=== PATIENT | male | born 1950 | race Caucasian/White ===

== ENCOUNTER → 2017-09-24 17:03 | Outpatient (CLI) | payer MEDICARE, OTHER, SELFPAY | PROVIDERS: Family Provider Family Medicine; PCP Family Medicine; Visit Provider Nurse Practitioner Adult Health | DX: R82.99 Other abnormal findings in urine (principal) | CPT/HCPCS: 87086; 87088; 87186 ==

== ENCOUNTER → 2017-10-04 10:32 | Outpatient (CLI) | payer MEDICARE, OTHER, SELFPAY ==
--- NOTE | 2017-10-04 10:36 | RAD_ITS ---
STUDY: X-RAY CHEST REASON FOR EXAM: Male, 67 years old. Dyspnea and hypoxemia. TECHNIQUE: PA and lateral views of the chest. COMPARISON: Comparison is made with prior study dated May 23, 2015. FINDINGS: Stable mild increased linear markings at the lung bases suggestive of mild bibasilar scarring. There is no demonstrated pleural abnormality. Normal size heart. Normal mediastinum and natalia. Normal visualized pulmonary arteries. There is atherosclerotic tortuosity of the aortic arch and descending thoracic aorta. Normal visualized thoracic spine. Normal visualized ribs, clavicles, and shoulders. There is no demonstrated abnormality of the visualized soft tissue structures of the upper abdomen. RAD/Chest PA and Lateral IMPRESSION: Stable examination. Findings suggestive of mild bibasilar linear scarring. Electronically Signed: Eusebio Abdalla MD at 13:22 EDT Tel [phone], Service support ,
== END ==
PROVIDERS: Family Provider Family Medicine; PCP Family Medicine; Visit Provider Internal Medicine Pulmonary Disease
DX: R06.00 Dyspnea, unspecified (principal); R09.02 Hypoxemia
CPT/HCPCS: 71046

== ENCOUNTER → 2017-10-16 14:58 | Outpatient (CLI) | payer MEDICARE, OTHER, SELFPAY ==
[2017-10-16 18:12] LABS: Anion Gap 8 (5-15); BUN 15 mg/dL (7-18); BUN/Creat Ratio 11.3 RATIO (10-20); Calcium,Total 8.9 mg/dL (8.5-10.1); Chloride 104 mmol/L (98-107); Creatinine, Serum 1.33 mg/dL (0.70-1.30); EST Glomerular Filtration Rate 57 mL/min (>60); Est Glom Filt Rate - Afr Amer 69 mL/min (>60); Glucose 140 mg/dL (74-106); PSA,Total - Annual Screen 0.71 ng/mL (0.00-4.00); Potassium 3.7 mmol/L (3.5-5.1); Sodium Level 137 mmol/L (136-145)
== END ==
PROVIDERS: Family Provider Family Medicine; PCP Family Medicine; Visit Provider Family Medicine
DX: I10 Essential (primary) hypertension (principal); Z12.5 Encounter for screening for malignant neoplasm of prostate
CPT/HCPCS: 36415; 80048; 84153; G0103

== ENCOUNTER → 2017-11-13 12:02 | Outpatient (CLI) | payer MEDICARE, OTHER, SELFPAY ==
[2017-11-13 14:53] LABS: Vitamin D,25 Hydroxy 23.1 ng/mL (29.95-100.01)
[2017-11-13 15:04] LABS: ALB/GLOB Ratio 0.8 RATIO (0.9-2.4); AST(SGOT) 29 U/L (15-37); Alanine Aminotransfer ALT/SGPT 38 U/L (16-61); Albumin, Serum 3.3 g/dL (3.2-5.0); Alkaline Phosphatase 89 U/L (45-117); Anion Gap 9 (5-15); BUN 14 mg/dL (7-18); BUN/Creat Ratio 10.6 RATIO (10-20); Calcium,Total 8.6 mg/dL (8.5-10.1); Chloride 104 mmol/L (98-107); Creatinine, Serum 1.32 mg/dL (0.70-1.30); EST Glomerular Filtration Rate 57 mL/min (>60); Est Glom Filt Rate - Afr Amer 69 mL/min (>60); Globulin 3.9 g/dL (2.2-4.2); Glucose 137 mg/dL (74-106); Potassium 3.8 mmol/L (3.5-5.1); Protein, Total 7.2 g/dL (6.4-8.2); Sodium Level 138 mmol/L (136-145)
[2017-11-14 11:12] LABS: DHEA Sulfate 389.2 ug/dL (30.9-295.6)
== END ==
PROVIDERS: Family Provider Family Medicine; PCP Family Medicine; Visit Provider Internal Medicine Endocrinology, Diabetes & Metabolism
DX: E27.49 Other adrenocortical insufficiency (principal); E04.9 Nontoxic goiter, unspecified; E55.9 Vitamin D deficiency, unspecified
CPT/HCPCS: 36415; 80053; 82306; 82627; 84443; 82626

== ENCOUNTER → 2017-11-13 12:34 | Outpatient (CLI) | payer MEDICARE, OTHER, SELFPAY ==
--- NOTE | 2017-11-27 11:30 | LEAS ---
Arterial Study - Arterial Study Arterial Study: Date of scan 11/13/2017 Interpreting physician Jhonatan: Dr. Terry Mckenna History: Patient with bilateral calf tightening pain with ambulation approximately 10 minutes on a treadmill right greater than the left here for evaluation Interpretation: Right lower extremity with normal pulsatile flow down at the legs duplex shows triphasic flow at the ankle with an ROSE 1.09 posterior tibial 1.08 of the dorsalis pedis with the digit brachial index 0.83 Left lower extremity with normal pulsatile flow with good waveform out through the digits duplex with triphasic flow both vessels at the ankle with an ROSE 1.13 the posterior tibial 1.19 of the dorsalis pedis the digit brachial index 0.85 Impression: 1. Bilateral lower extremities with no evidence of significant arterial occlusive disease with triphasic flow and ROSE 1.09 on the right 1.19 on the left with normal digit brachial indices.
== END ==
PROVIDERS: Family Provider Family Medicine; PCP Family Medicine; Visit Provider Physician Assistant Medical
DX: I73.9 Peripheral vascular disease, unspecified (principal); E27.49 Other adrenocortical insufficiency; E04.9 Nontoxic goiter, unspecified; E55.9 Vitamin D deficiency, unspecified
CPT/HCPCS: 36415; 80053; 82306; 82627; 84443; 93922; 82626

== ENCOUNTER → 2018-05-07 08:26 | Outpatient (CLI) | payer MEDICARE, OTHER, SELFPAY ==
[2018-05-05 13:27] VITALS: BMI 37.8
[2018-05-07 10:55] LABS: Anion Gap 11 (5-15); BUN 14 mg/dL (7-18); Calcium,Total 8.8 mg/dL (8.5-10.1); Chloride 104 mmol/L (98-107); Cholesterol 176 mg/dL (200); EST Glomerular Filtration Rate 54 mL/min (>60); Est Glom Filt Rate - Afr Amer 65 mL/min (>60); Glucose 199 mg/dL (74-106); High Density Lipoprotein 52 mg/dL; Sodium Level 138 mmol/L (136-145); Triglycerides 129 mg/dL; Very Low Density Lipoprotein 26 mg/dL (5-40)
== END ==
PROVIDERS: Family Provider Family Medicine; PCP Family Medicine; Visit Provider Family Medicine
DX: I10 Essential (primary) hypertension (principal)
CPT/HCPCS: 36415; 80048; 80061

== ENCOUNTER → 2018-05-27 08:27 | Outpatient (CLI) | payer MEDICARE, OTHER, SELFPAY ==
[2018-05-05 13:27] VITALS: BMI 37.8
[2018-05-27 09:51] LABS: Vitamin D,25 Hydroxy 28.7 ng/mL (29.95-100.01)
[2018-05-27 10:04] LABS: ALB/GLOB Ratio 0.8 RATIO (0.9-2.4); AST(SGOT) 28 U/L (15-37); Alanine Aminotransfer ALT/SGPT 40 U/L (16-61); Albumin, Serum 3.4 g/dL (3.2-5.0); Alkaline Phosphatase 84 U/L (45-117); Anion Gap 9 (5-15); BUN 16 mg/dL (7-18); BUN/Creat Ratio 11.3 RATIO (10-20); Calcium,Total 8.7 mg/dL (8.5-10.1); Chloride 102 mmol/L (98-107); Creatinine, Serum 1.42 mg/dL (0.70-1.30); EST Glomerular Filtration Rate 53 mL/min (>60); Est Glom Filt Rate - Afr Amer 64 mL/min (>60); Glucose 143 mg/dL (74-106); Protein, Total 7.4 g/dL (6.4-8.2); Sodium Level 140 mmol/L (136-145); Thyroid Stim Hormone (TSH) 3.39 uIU/mL (0.358-3.74)
--- OUTSIDE RECORDS SUMMARY | 2018-07-13 06:48 | XMS RPT_ITS ---
:1950 Author Organization [place] Support Name Relationship Address Phone MARSHAL TEMPLE Unavailable [address] + [place] [address] MAVERICK JOSH Unavailable [address] + [place] [address] R Unavailable Unavailable Unavailable MARSHAL TEMPLE Unavailable [address] + [place] [address] MAVERICK, JOSH Unavailable [address] + [place] [address] R Unavailable Unavailable Unavailable MARSHAL TEMPLE Unavailable [address] + [place] [address] MAVERICK, JOSH Unavailable [address] + [place] [address] R Unavailable Unavailable Unavailable MARSHAL TEMPLE Unavailable [address] + [place] [address] MAVERICK, JOSH Unavailable [address] + [place] [address] R Unavailable Unavailable Unavailable MARSHAL TEMPLE Unavailable [address] + [place] [address] MAVERICK JOSH Unavailable [address] + [place] [address] R Unavailable Unavailable Unavailable MARSHAL TEMPLE Unavailable [address] + [place] [address] MAVERICK, JOSH Unavailable [address] + [place] [address] R Unavailable Unavailable Unavailable MARSHAL TEMPLE Unavailable [address] + [place] [address] R Unavailable Unavailable Unavailable MARSHAL TEMPLE Unavailable [address] + [place] [address] R Unavailable Unavailable Unavailable MARSHAL TEMPLE Unavailable [address] + [place] [address] R Unavailable Unavailable Unavailable MARSHAL TEMPLE Unavailable [address] + [place] [address] R Unavailable Unavailable Unavailable MARSHAL TEMPLE Unavailable [address] + [place] [address] R Unavailable Unavailable Unavailable MARSHAL TEMPLE Unavailable [address] + [place] [address] R Unavailable Unavailable Unavailable MARSHAL TEMPLE Unavailable [address] + [place] [address] R Unavailable Unavailable Unavailable Care Team Providers Name Role Phone MAXWELL TORRES Attending Unavailable BRIAN, MAXWELL Referring Unavailable Kohli, Connor Primary Care Unavailable Rylee Singh Attending Unavailable Kohli, Connor Referring Unavailable Kohli, Connor Primary Care Unavailable Kohli, Connor Attending Unavailable Kohli, Connor Primary Care Unavailable Anmol Ventura Attending Unavailable Kohli, Connor Referring Unavailable Rylee Singh Attending Unavailable Rylee Singh Referring Unavailable Kohli, Connor Primary Care Unavailable Becca Oneal Attending Unavailable Maryjane Chinchilla Attending Unavailable Kohli, Connor Primary Care Unavailable Cathie Parker Attending Unavailable Kohli, Connor Attending Unavailable Kohli, Connor Primary Care Unavailable Sibartem, Octavio Attending Unavailable SibiliaOctavio Referring Unavailable Kohli, Connor Primary Care Unavailable Valencia Copeland Attending Unavailable Kohli, Connor Primary Care Unavailable Valencia Copeland Referring Unavailable Jg Valle Attending Unavailable Seun, Connor Primary Care Unavailable Jg Valle Referring Unavailable WIETEMAXWELL ERVIN Attending Unavailable WIETECHA, MAXWELL Referring Unavailable Kohli, Connor Primary Care Unavailable PROBLEMS PROBLEMS DATE TYPE CONDITION / CODE ATTENDING STATUS SOURCE 06/06/2018 Unknown N20.0 - Calculus of Cathie Parker Active [facility] N20.0(ICD-10) Hospital Repository 05/27/2018 Unknown 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 / Hospital E27.49(ICD-10) Repository 05/27/2018 Unknown 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, unspecified Community / E04.9(ICD-10) Hospital Repository 05/27/2018 Unknown E55.9 - Vitamin D WIETECHA, MAXWELL Active [facility] unspecified / Hospital E55.9(ICD-10) Repository 10/30/2017 Unknown I73.9 - Peripheral Francisco, Active [facility] vascular disease, [facility] unspecified / Hospital I73.9(ICD-10) Repository 10/16/2017 Unknown 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 Active [facility]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 / Repository Z12.5(ICD-10) 10/16/2017 Unknown I10 - Essential Connor Kohli Active [facility] (primary) [facility] hypertension / Hospital I10(ICD-10) Repository 09/25/2017 Unknown R82.99 - Other Valencia Copeland Active [facility] abnormal findings in [facility] urine / Hospital R82.99(ICD-10) Repository PROCEDURES PROCEDURES No Procedure Records FoundRESULTS RESULTS EMERGENCY DEPARTMENT Observed: 06/07/2018 Status: F Source: JASPER SUMMARY 12:56 AM [facility] REPOSITORY [facility] Medical Records Department [address] [place] [address] Emergency Department Summary 06/06/182050 MR#: [id number] Acct: [id number] Name: GRACIE TEMPLE Rep #: [id number] : 1950 68 From: Cathie Parker MD PCP: Connor Kohli MD Status: DEP ER - ER Visit Summary Date of Service: 06/06/18 Chief Complaint: Left flank pain History of Present Illness: The patient is a 68 M gradual onset of left flank pain this afternoon. He reports urinary frequency but no dysuria or discoloration. He does have a history of kidney stones 20+ years ago. He was told recently an x-ray of his back showed stones in the left kidney. He denies nausea, vomiting, or diarrhea. Physical Examination: Vital signs gross unremarkable. Patient sitting upright on the side of the bed. He is in no acute distress. Heart is regular rate and rhythm. Lung sounds are clear. Abdomen is soft with reproducible tenderness of the left lateral abdominal wall. There is no guarding or rebound. He has no CVA tenderness. Test Results: Patient had CBC and chemistry studies drawn yesterday that were reviewed. His creatinine was 1.59. Chemistries were repeated tonight and creatinine is currently 1.52. Urinalysis shows blood but no sign of acute infection. CT flank reveals left hydroureteronephrosis secondary to a 4.6 mm calculus in the mid left ureter. Emergency Department Course and Treatment: Patient was given 4 mg of morphine and 4 mg of Zofran. On initial repeat examination pain was significantly improved. On later repeat exam patient states pain was starting to return. He is given 2 mg of morphine. At this time patient wishes to try pain medication at home. He will be written for oxycodone and Zofran. He is instructed to return for any worsening symptoms. He will be referred to Dr. Lombardi for follow-up. Treatment Plan: [] Disposition: Discharge Impression: Left ureterolithiasis This note was generated with [employer] dictation software. It may contain incorrect words, spelling, and punctuation that were not noted in review of the chart prior to signing ED Disposition - Plan for ED Patient: Chief Complaint: Flank Pain Referrals: Connor Kohli MD [Primary Care Provider] - What to do if you have Problems For any increased pain, shortness of breath, bleeding, nausea or vomiting, chest pain, or any unexpected problems, contact your Primary Care Provider. Call [facility] ([phone]) or report to the closest Emergency Room. Call 911 if necessary. 06/07/18 0056 <Electronically signed by Cathie Parker MD> Date Cathie Parker MD Cosigner Signature (If Indicated): Date CC: Connor Kohli MD DISCHARGE INSTRUCTION Observed: 06/06/2018 Status: F Source: ALEXANDER 11:32 PM [facility] REPOSITORY [facility] Medical Records Department [address] [place] [address] Discharge Instruction 06/06/18 2330 MR#: [id number] Acct: [id number] Name: GRACIE TEMPLE Rep #: [id number] : 1950 68 From: Cathie Parker MD PCP: Connor Kohli MD Status: REG ER ED Disposition - Plan for ED Patient: Disposition: Home or Assisted Living Chief Complaint: Flank Pain Instructions: ED Stone Renal W Colic Prescriptions: Oxycodone [Oxyir] 5 mg PO Q6H PRN PRN 4 Days #20 tablet PRN Reason: Pain Ondansetron [Zofran Odt] 4 mg PO Q8H PRN PRN #10 tablet PRN Reason: Nausea Referrals: Avinash Lombardi MD [STAFF PHYSICIAN] - As Needed What to do if you have Problems For any increased pain, shortness of breath, bleeding, nausea or vomiting, chest pain, or any unexpected problems, contact your Primary Care Provider. Call [facility] ([phone]) or report to the closest Emergency Room. Call 911 if necessary. 06/06/18 2522 <Electronically signed by Cathie Parker MD> Date Cathie Parker MD Cosigner Signature (If Indicated): Date CC: Connor Kohli MD URINALYSIS, COMPLETE Collected: 06/06/2018 Status: F Source: ALEXANDER 10:35 PM [facility] REPOSITORY Order Comment: Order Date: 06/06/18 How was Urine Obtained? CLEAN CATCH TYPE CODE TESTS RESULT OUT OF RANGE REFERENCE UNITS LAB L400.3000 Yellow COLOR Normal Yellow LAB L400.3050 Clear Normal CLARITY Sl. Cloudy LAB L400.3200 Normal mg/dl High GLUCOSE, UR 1000 LAB L400.3300 Negative mg/dL Normal BILIRUBIN URINE Negative LAB L400.3400 Negative mg/dl Normal KETONE UR Negative LAB L400.3465 1.002-1.030 Normal SP.GR. DIPSTX 1.015 LAB L400.3550 5.0 - 8.0 pH UR Normal 6.0 LAB L400.3600 Negative mg/dl PROT Normal DIPSTX Negative LAB L400.3700 Normal mg/dl Normal UROBILI Normal LAB L400.3750 Negative Normal NITRITE UR Negative LAB L400.3780 Negative /ul High OCCULT BLOOD-UR 250 LAB L400.3800 Negative /ul LEUK Normal ESTERASE Negative LAB L400.4050 0-5 /hpf WBC 0 Normal SEEN LAB L400.4100 0-5 /hpf Normal RBC-UA 5-10 SEEN LAB L400.4150 0-5 /hpf SQUAM Normal EPI 0-5 SEEN LAB L400.4300 None Seen /hpf 0 Normal BACTERIA SEEN LAB L400.4350 <or=2+ /hpf 0 Normal MUCUS, URINE SEEN Performed By: #### L400.0001 #### [facility] [address] [place], [place], [id number] BASIC METABOLIC Collected: 06/06/2018 Status: F Source: JASPER PROFILE (BMP) 8:40 PM [facility] REPOSITORY TYPE CODE TESTS RESULT OUT OF RANGE REFERENCE UNITS LAB L501.0100 74-106 mg/dL High GLU 152 Result Comment: Fasting Glucose result greater than or equal to 126 mg/dL suggests DIABETES MELLITUS per A.D.A. criteria. Please note revised GLUCOSE reference range effective 2017. LAB L501.1000 7-18 mg/dL Normal BUN 16 LAB L501.1100 0.70-1.30 mg/dL High CREAT,SERUM 1.52 Result Comment: The validity of the calculated GFR AND GFRAA in patients over 70 years has not been determined. Clinical correlation is essential. LAB L501.1110 >60 mL/min Low EST GFR 49 Result Comment: Non- GFR Calc LAB L501.1115 >60 mL/min Low EST GFR - AA 59 Result Comment: GFR Calc LAB L501.1255 ml/min Normal Estimated CRCL 40.46 LAB L501.1300 10-20 RATIO Normal BUN/CRE 10.5 LAB L501.2200 8.5-10 mg/dL Normal .1 CA 9.0 LAB L501.5300 136-14 mmol/L Normal 5 NA 139 LAB L501.5600 3.5-5. mmol/L Normal 1 K 4.0 LAB L501.5900 98-107 mmol/L Normal CL 104 LAB L501.6100 21.0-3 mmol/L Normal 2.0 CO2 27.0 LAB L501.6200 5-15 Normal GAP 8 Performed By: #### L500.2500 #### [facility] [address] [place], [address] ABDOMEN/PELVIS WITHOUT Observed: 06/06/2018 Status: F Source: A[place] CONT 8:21 PM [facility] REPOSITORY [facility] Imaging Services [address] [place] [address] Abdomen/Pelvis without Cont MR#: [id number] Acct: [id number] Name: GRACIE TEMPLE Rep #: [id number] : 1950 M 68 From: Kelley Gunn MD PCP: Connor Kohli MD Status: REG ER Study: Abdomen/Pelvis without Cont Date of Exam: 06/06/18 Exam# [id number] Ordering Dr: Cathie Parker MD STUDY: CT ABDOMEN AND PELVIS WITHOUT CONTRAST REASON FOR EXAM: Male, 68 years old. Left flank pain. RADIATION DOSAGE (If Supplied By Facility): CTDIvol = ( 22.37 ) mGy, DLP = ( 1162.46 ) mGycm TECHNIQUE: Transaxial images were obtained from the dome of the diaphragm to the symphysis pubis without oral contrast, and without intravenous contrast. Sagittal and coronal images were reconstructed. Individualized dose optimization techniques were used for this CT. COMPARISON: CT of the chest dated October 18, 2013 FINDINGS: The visualized lung bases are unremarkable. There are coronary artery calcifications present. Normal liver. Normal gallbladder and extrahepatic biliary system. Normal spleen. Normal pancreas. Normal bilateral adrenal glands. There are nonobstructing right renal calculi measuring up to 3.4 mm. There is left hydroureteronephrosis secondary to a 4.6 mm calculus within the mid left ureter. Normal visualized stomach. Normal small intestine. There are multiple colonic diverticula consistent with diverticulosis. The appendix is visualized and appears normal. There is diffuse atherosclerotic calcification of the abdominal aorta, without a demonstrated aneurysm. Normal inferior vena cava. Normal retroperitoneum. Normal urinary bladder. Normal abdominal wall. There are diffuse degenerative changes of the visualized lumbar spine. There are pedicle screws from L3 through S1 present. CT/Abdomen/Pelvis without Cont IMPRESSION: Left hydroureteronephrosis secondary to a 4.6 mm calculus within the mid left ureter. Nonobstructing right renal calculi measuring up to 3.4 mm. Colonic diverticulosis. Atherosclerosis. Postsurgical changes of the lumbar spine. Electronically Signed: Kelley Gunn MD at 21:33 EST Tel , Service support , CC: Cathie Parker MD; Connor Kohli MD Funding Specialist: Signed BASIC METABOLIC Collected: 06/05/2018 Status: F Source: [place] PROFILE (BMP) 9:14 AM [facility] REPOSITORY TYPE CODE TESTS RESULT OUT OF RANGE REFERENCE UNITS LAB L501.0100 74-106 mg/dL High GLU 173 Result Comment: Fasting Glucose result greater than or equal to 126 mg/dL suggests DIABETES MELLITUS per A.D.A. criteria. Please note revised GLUCOSE reference range effective 2017. LAB L501.1000 7-18 mg/dL Normal BUN 14 LAB L501.1100 0.70-1.30 mg/dL High CREAT,SERUM 1.59 Result Comment: The validity of the calculated GFR AND GFRAA in patients over 70 years has not been determined. Clinical correlation is essential. LAB L501.1110 >60 mL/min Low EST GFR 46 Result Comment: Non- GFR Calc LAB L501.1115 >60 mL/min Low EST GFR - AA 56 Result Comment: GFR Calc LAB L501.1300 10-20 RATIO Low BUN/CRE 8.8 LAB L501.2200 8.5-10.1 mg/dL Normal CA 8.8 LAB L501.5300 136-145 mmol/L Normal NA 140 LAB L501.5600 3.5-5.1 mmol/L Normal K 3.9 LAB L501.5900 98-107 mmol/L Normal CL 106 LAB L501.6100 21.0-32.0 mmol/L Normal CO2 25.0 LAB L501.6200 5-15 Normal GAP 9 Performed By: #### L500.2500, L500.3400 #### [facility] [address] [place], [place], [id number] LIVER PROFILE Collected: 06/05/2018 Status: F Source: JASPER 9:14 AM [facility] REPOSITORY TYPE CODE TESTS RESULT OUT OF RANGE REFERENCE UNITS LAB L501.1500 6.4-8.2 g/dL Normal T PROT 7.2 LAB L501.1800 3.2-5.0 g/dL Normal ALB 3.4 LAB L501.1950 2.2-4.2 g/dL Normal GLOB 3.8 LAB L501.4100 15-37 U/L Normal AST 24 LAB L501.4305 45-117 U/L Normal ALK P 90 LAB L501.4405 16-61 U/L Normal ALT 39 LAB L501.4600 0.20-1.00 mg/dL Normal T BILI 0.40 LAB L501.4700 0.00-0.30 mg/dL Normal D BILI 0.12 Performed By: #### L500.2500, L500.3400 #### [facility] [place], [place], [id number] HIV - [facility] Collected: 06/05/2018 Status: F Source: JASPER 9:14 AM [facility] REPOSITORY TYPE CODE TESTS RESULT OUT OF RANGE REFERENCE UNITS LAB L3890.6005 Nonreactive Normal HIV - [facility] Non-Reactive Performed By: #### L3890.6005 #### [facility] [place], [place], [address] CBC W/DIFF, AUTOMATED Collected: 06/05/2018 Status: F Source: JASPER 9:14 AM [facility] REPOSITORY TYPE CODE TESTS RESULT OUT OF RANGE REFERENCE UNITS LAB L100.1000 4.4-11.0 K/mm3 Normal WBC 6.0 LAB L100.1200 4.6-6.2 M/mm3 Normal RBC 5.08 LAB L100.1300 13.0-16.5 g/dl Normal HGB 15.8 LAB L100.1400 40-54 % Normal HCT 47.9 LAB L100.1500 80-94 fL High MCV 94.3 LAB L100.1600 27.0-32.0 pg Normal MCH 31.1 LAB L100.1700 32-36 g/gl Normal MCHC 33.0 LAB L100.1810 11.6-14.6 % Normal RDW CV 13.3 LAB L100.1820 35.1-43.9 fl High RDW SD 45.9 LAB L100.1900 150-450 K/mm3 Normal PLT 225 LAB L100.2000 6.2-12.0 fl Normal MPV 10.6 LAB L100.2100 47-70 % Normal NEUT% 49.6 LAB L100.2200 19-41 % Normal LY% 29.9 LAB L100.2300 0-10 % High MONO% 12.8 LAB L100.2400 0-5 % High EO% 6.3 LAB L100.2500 0-1 % High BASO% 1.2 LAB L100.2550 0.0-0.9 % Normal IM GRAN % 0.200 Result Comment: IG% - Immature Granulocytes (promyelocytes, myelocytes and metamyelocytes) > 1% indicates that a LEFT SHIFT is Present. LAB L100.2620 2.0-7.7 X10 3/uL Normal Absolute Neut 3.0 LAB L100.2720 0.83-4.51 X10 3/ul Normal Absolute Lymph 1.80 Performed By: #### L100.0100 #### [facility] [address] [place] [address], [id number] HEPATITIS B SURFACE Collected: 06/05/2018 Status: F Source: ALEX[place]ER AG 9:14 AM [facility] REPOSITORY TYPE CODE TESTS RESULT OUT OF RANGE REFERENCE UNITS LAB L3100.0400 Negative Normal HB Negative SURF AG Performed By: #### L3100.0390, L3100.0440, L3100.0528, L3100.0625, L3400.8000 #### [facility] (refer to report for specific site) refer to report for address and phone number HEPATITIS B CORE AB Collected: 06/05/2018 Status: F Source: ALEX[place]ER IGM 9:14 AM [facility] REPOSITORY TYPE CODE TESTS RESULT OUT OF RANGE REFERENCE UNITS LAB L3100.0440 Negative Normal HB Negative CORE [id number] Result Comment: Performed at: - [facility] [address] [id number] Soldering Machine Operator: Petr Arzola PhD, Phone: [phone] Performed By: #### L3100.0390, L3100.0440, L3100.0528, L3100.0625, L3400.8000 #### [facility] (refer to report for specific site) refer to report for address and phone number HEP B SURFACE Collected: 06/05/2018 Status: F Source: A[place]ER ANTIBODIES 9:14 AM [facility] REPOSITORY TYPE CODE TESTS RESULT OUT OF RANGE REFERENCE UNITS LAB L3100.0528 . Normal Hep B Non Reactive Jenifer AB Result Comment: Non Reactive: Inconsistent with immunity, less than 10 mIU/mL Reactive: Consistent with immunity, greater than 9.9 mIU/mL Performed By: #### L3100.0390, L3100.0440, L3100.0528, L3100.0625, L3400.8000 #### [facility] (refer to report for specific site) refer to report for address and phone number HEPATITIS C ANTIBODIES Collected: 06/05/2018 Status: F Source: ALEX[place]ER 9:14 AM [facility] REPOSITORY TYPE CODE TESTS RESULT OUT OF RANGE REFERENCE UNITS LAB L3100.0650 0.0-0.9 s/co ratio Normal HEP C AB 0.2 Result Comment: Negative: < 0.8 Indeterminate: 0.8 - 0.9 Positive: > 0.9 The CDC recommends that a positive HCV antibody result be followed up with a HCV Nucleic Acid Amplification test ([id number]). Performed By: #### L3100.0390, L3100.0440, L3100.0528, L3100.0625, L3400.8000 #### [facility] (refer to report for specific site) refer to report for address and phone number QUANTIFERON TB-GOLD+ Collected: 06/05/2018 Status: F Source: ALEX[place]ER 9:14 AM [facility] REPOSITORY TYPE CODE TESTS RESULT OUT OF RANGE REFERENCE UNITS LAB L3400.8025 . Normal QFT TB Comment GOLD Result Comment: The QuantiFERON-TB Gold Plus result is determined by subtracting the Nil value from either TB antigen (Ag) tube. The mitogen tube serves as a control for the test. LAB L3400.8035 . IU/mL Normal QFT TB1+ AG 0.05 [facility] LAB L3400.8045 . IU/mL Normal QFT TB2+ AG 0.04 [facility] LAB L3400.8055 . IU/mL Normal QFT NIL VALUE 0.04 LAB L3400.8065 . IU/mL Normal QFT MITOGEN > 10.00 [facility] LAB L3400.8075 Negative Normal QFT TB POS Negative CRIT Result Comment: The specimen received for QuantiFERON testing was incubated by the ordering institution. Specific procedures outlined in our Directory of Services and in the package insert for the QuantiFERON Gold (In Tube) test must be followed to enable for proper stimulation of cells for the production of interferon gamma. Performed By: #### L3100.0390, L3100.0440, L3100.0528, L3100.0625, L3400.8000 #### [facility] (refer to report for specific site) refer to report for address and phone number VITAMIN D,25 HYDROXY Collected: 05/27/2018 Status: F Source: JASPER 8:39 AM [facility] REPOSITORY TYPE CODE TESTS RESULT OUT OF REFERENCE UNITS RANGE LAB L506.1000 29.95-100.01 ng/mL Low Vitamin D 28.7 25-OH Result Comment: Vitamin D 25(OH) Status Range Deficiency <20 ng/mL (50nmol/L) Insuffciency 20 - 30 ng/mL (50 - 75 nmol/L) Sufficiency 30 - 100 ng/mL (75 - 250 nmol/L) Toxicity >100 ng/mL (>250 nmol/L) Performed By: #### L506.1000 #### [facility] [address], [address] COMPREHENSIVE METABOLIC Collected: 05/27/2018 Status: F [facility] REPOSITORY TYPE CODE TESTS RESULT OUT OF RANGE REFERENCE UNITS LAB L501.0100 74-106 mg/dL High GLU 143 Result Comment: Fasting Glucose result greater than or equal to 126 mg/dL suggests DIABETES MELLITUS per A.D.A. criteria. Please note revised GLUCOSE reference range effective 2017. LAB L501.1000 7-18 mg/dL Normal BUN 16 LAB L501.1100 0.70-1.30 mg/dL High CREAT,SERUM 1.42 Result Comment: The validity of the calculated GFR AND GFRAA in patients over 70 years has not been determined. Clinical correlation is essential. LAB L501.1110 >60 mL/min Low EST GFR 53 Result Comment: Non- GFR Calc LAB L501.1115 >60 mL/min Normal EST GFR - AA 64 Result Comment: GFR Calc LAB L501.1300 10-20 RATIO Normal BUN/CRE 11.3 LAB L501.1500 6.4-8.2 g/dL T Normal PROT 7.4 LAB L501.1800 3.2-5.0 g/dL Normal ALB 3.4 LAB L501.1950 2.2-4.2 g/dL Normal GLOB 4.0 LAB L501.2000 0.9-2.4 RATIO Low A/G 0.8 LAB L501.2200 8.5-10.1 mg/dL CA Normal 8.7 LAB L501.4100 15-37 U/L Normal AST 28 LAB L501.4305 45-117 U/L Normal ALK P 84 LAB L501.4405 16-61 U/L Normal ALT 40 LAB L501.4600 0.20-1.00 mg/dL T Normal BILI 0.50 LAB L501.5300 136-145 mmol/L NA Normal 140 LAB L501.5600 3.5-5.1 mmol/L K Normal 4.0 LAB L501.5900 98-107 mmol/L CL Normal 102 LAB L501.6100 21.0-32.0 mmol/L Normal CO2 29.0 LAB L501.6200 5-15 Normal GAP 9 Performed By: #### L500.4050, L501.9520 #### [facility] [address] [facility] [address] [place], [place], [id number] THYROID STIM HORMONE Collected: 05/27/2018 Status: F Source: JASPER (TSH) 8:39 AM [facility] REPOSITORY TYPE CODE TESTS RESULT OUT OF RANGE REFERENCE UNITS LAB L501.9520 0.358-3.74 uIU/mL Normal TSH 3.39 Performed By: #### L500.4050, L501.9520 #### [facility] [address] [facility] [address] [place], [place], [id number] DHEA SULFATE Collected: 05/27/2018 Status: F Source: ALEX[place]ER 8:39 AM [facility] REPOSITORY Order Comment: Has Patient had Radioactive Injection for X-ray?: N TYPE CODE TESTS RESULT OUT OF RANGE REFERENCE UNITS LAB L3300.1500 30.9-295.6 ug/dL Normal DHEA SULF 46.0 4020 Result Comment: Performed at: [facility] [id number] Soldering Machine Operator: Petr Arzola PhD, Phone: [phone] Performed By: #### L3300.1500 #### [facility] (refer to report for specific site) refer to report for address and phone number BASIC METABOLIC Collected: 05/07/2018 Status: F Source: [place] PROFILE (BMP) 8:27 AM [facility] REPOSITORY TYPE CODE TESTS RESULT OUT OF RANGE REFERENCE UNITS LAB L501.0100 74-106 mg/dL High GLU 199 Result Comment: Fasting Glucose result greater than or equal to 126 mg/dL suggests DIABETES MELLITUS per A.D.A. criteria. Please note revised GLUCOSE reference range effective 2017. LAB L501.1000 7-18 mg/dL Normal BUN 14 LAB L501.1100 0.70-1.30 mg/dL High CREAT,SERUM 1.40 Result Comment: The validity of the calculated GFR AND GFRAA in patients over 70 years has not been determined. Clinical correlation is essential. LAB L501.1110 >60 mL/min Low EST GFR 54 Result Comment: Non- GFR Calc LAB L501.1115 >60 mL/min Normal EST GFR - AA 65 Result Comment: GFR Calc LAB L501.1300 10-20 RATIO Normal BUN/CRE 10.0 LAB L501.2200 8.5-10.1 mg/dL CA Normal 8.8 LAB L501.5300 136-145 mmol/L NA Normal 138 LAB L501.5600 3.5-5.1 mmol/L K Normal 4.0 LAB L501.5900 98-107 mmol/L CL Normal 104 LAB L501.6100 21.0-32.0 mmol/L Normal CO2 23.0 LAB L501.6200 5-15 Normal GAP 11 Performed By: #### L500.2500, L500.4100 #### [facility] [address] [place], [address] LIPID PROFILE Collected: 05/07/2018 Status: F Source: ALEXANDER 8:27 AM [facility] REPOSITORY TYPE CODE TESTS RESULT OUT OF RANGE REFERENCE UNITS LAB L501.4900 200 mg/dL Normal CHOL 176 Result Comment: <200 mg/dL Desirable 200-240 mg/dL Borderline >240 mg/dL High Risk LAB L501.5000 mg/dL Normal TRIG 129 Result Comment: The drugs N-Acetylcysteine and Metamizole may falsely depress this assay. Serum Triglycerides Reference Interval Normal <150 mg/dL Borderline high 150 - 199 mg/dL High 200 - 499 mg/dL Very High > or = 500 mg/dL LAB L501.6400 mg/dL Normal HDL 52 Result Comment: The drugs N-Acetylcysteine and Metamizole may falsely depress this assay. Reference Range HDL <40 mg/dL Low HDL Cholesterol HDL >or= 60 mg/dL High HDL Cholesterol LAB L501.6500 0-130 mg/dL Normal LDL 98 LAB L501.6600 5-40 mg/dL Normal VLDL 26 Performed By: #### L500.2500, L500.4100 #### [facility] [address] [place], [address] CARDIOLOGY VISIT Observed: 05/05/2018 Status: F Source: ALEXANDER REPORT 4:06 PM [facility] REPOSITORY [facility] [address] [place] [address] OFFICE VISIT Date of Service: 05/05/18 MR#: [id number] Acct: [id number] Name: GRACIE TEMPLE Rep #: [id number] : 1950 Provider: WIN Ventura Age/Sex: 68/M Location: [facility] Status: Signed HPI HPI Details: GRACIE TEMPLE, is a 68 M who presents to the office today for a cardiovascular outpatient follow-up. He has a history of coronary artery disease status post stenting to his LCx and obtuse marginal in 2012. He has a history of syncope with loop recorder explantation in October 2016, paroxysmal atrial fibrillation, hypertension, hyperlipidemia, intermittent claudication, and adrenal insufficiency. Pt. denies chest, arm, jaw, or neck discomfort. His exercise tolerance is stable via walking and biking when possible. Pt. denies symptoms of CHF, palpitations, near syncope, or syncopal episodes. Pt. denies edema. Pt. denies orthopnea, PND, myalgia, or unexplainable fatigue. He states one episode of lightheadedness or dizziness. He states occasional bilateral leg pain with ambulation. Intake Vital Signs05/05/18 Height 5 ft 5 in 05/05/18 Weight: 227 lb 05/05/18 Body Mass Index (BMI) 37.8 05/05/18 Blood Pressure 114/58 L Intake Visit Reasons: 6 M Behavior Therapist Required: No Accompanied by: None Is patient in pain?: No Allergies acetaminophen [From Tylenol] Allergy (Verified 05/05/18 13:34) Anaphylaxis hydromorphone HCl [From Dilaudid] Allergy (Verified 05/05/18 13:34) Unknown Penicillins Allergy (Verified 05/05/18 13:34) Hives Medications Aspirin [Aspirin, Baby] 81 mg PO QHS 04/23/13 [History Confirmed 05/05/18] Nortriptyline HCl [Pamelor] 25 mg PO QHS 04/23/13 [History Confirmed 05/05/18] Pantoprazole Sodium [Protonix] 40 mg PO DAILY 04/23/13 [History Confirmed 05/05/18] Tamsulosin HCl [Flomax] 0.4 mg PO QHS 04/23/13 [History Confirmed 05/05/18] Finasteride [Proscar] 5 mg PO DAILY 10/12/16 [History Confirmed 05/05/18] Solifenacin Succinate [Vesicare] 10 mg PO DAILY 10/12/16 [History Confirmed 05/05/18] lisinopril 20 mg tablet 20 mg PO DAILY #90 tab 07/11/17 [Rx Confirmed 05/05/18] cilostazol 100 mg tablet 100 mg PO BID #180 tab 07/16/17 [Rx Confirmed 05/05/18] metoprolol tartrate 50 mg tablet 75 mg PO BID #270 tab 07/16/17 [Rx Confirmed 05/05/18] ezetimibe 10 mg tablet 10 mg PO QHS #90 tab 01/20/18 [Rx Confirmed 05/05/18] clopidogrel 75 mg tablet 75 mg PO QHS #90 tab 01/22/18 [Rx Confirmed 05/05/18] cholecalciferol (vitamin D3) 1,000 unit capsule 1,000 unit PO DAILY 05/05/18 [History Confirmed 05/05/18] PFSH Medical History Claudication in peripheral vascular disease (Chronic) Hypertension (Chronic) Left ventricular hypertrophy (Chronic) Paroxysmal atrial fibrillation (Chronic) Atherosclerotic heart disease of [place] coronary artery without angina pectoris (Chronic) HLD (hyperlipidemia) (Chronic) Surgical History Presence of coronary angioplasty implant and graft (Chronic) History of resection of meningioma (Resolved) Hx of cataract surgery (Resolved) History of lumbar surgery (Resolved) Family History Mother CAD (coronary artery disease) Sister CAD (coronary artery disease) Father Heart disease Social History Smoking Status: Never smoker alcohol intake: never substance use type: does not use caffeine: Yes Type: carbonated beverages Number of servings: 1 what type of physical activity do you participate in: none ROS Const Const: Negative for body ache, fever(s), chills, fatigue or weakness ENT ENT: Positive for dizziness Cardio Chest Pain: No Palpitations: No Edema: None Muscle aches with walking: Bilateral Resp Respiratory: Positive for SOB with activity; negative for SOB at rest, SOB orthopnea\SOB lying down or paroxysmal nocturnal dyspnea GI GI: Negative nausea, black,tarry stools, bright, red blood in stools or vomiting blood/hematemesis : Negative for hematuria or frequent nighttime urination/ nocturia Musc Musc: Negative for muscle aches/ myalgia Skin Skin: Negative non-healing lesions or rash Neuro Neuro: Positive for dizziness and lightheadedness; negative for weakness, near syncope, syncope or orthostatic symptoms Endo Endo: Negative for fatigue Allergy Allergy/Immunology: Negative for rash Cardiology Exam Const Appearance: cooperative, no acute distress and well developed Nutritional Appearance: obese and well nourished Orientation: alert, awake and oriented x3 Head Head: normocephalic and atraumatic Mouth: moist mucous membranes Eyes General: appearance normal, both eyes and all related structures Conjunctivae: conjunctivae normal Pupils: PERRL EOM: EOM intact bilaterally Neck Neck: normal visual inspection, no lymphadenopathy and no JVD Carotids: Negative bruit Neck Mass: Negative Neck mass Chest Chest inspection: normal inspection of the chest, symmetric chest movement and normal respiratory effort Auscultation: Bilateral: Clear to Auscultation Cardio Palpation: normal PMI Rate: regular rate Rhythm: regular rhythm Heart sounds: S1 normal and S2 normal; negative rub, gallop or murmur GI GI: normal to inspection, soft, no hepatosplenomegaly, bowel sounds present and obese; negative tender Neuro General: alert, awake, oriented x3, CN's II-XI intact bilaterally and moves all extremities Extremities Pulses: Normal: Right Radial Pulse, Left Radial Pulse, Diminished: Right Posterior Tibial Pulse, Left Posterior Tibial Pulse Lower Extremity Edema: None: Bilateral Psych Psychological: normal affect Supplemental Info Echocardiogram in January 2017 demonstrates an ejection fraction of 70%. Left atrium mildly enlarged. Trivial valvular insufficiency. Carotid duplex ultrasound from October 2015 showed no significant atherotic plaque or stenosis noted in the internal carotid arteries bilaterally. Lower extremity arterial duplex from October 2017 showed bilateral extremities no evidence of significant arterial occlusive disease with triphasic flow and ROSE 1.09 on the right and 1.19 on the left with normal digit brachial indices. Stress test from January 2017 showed peak exercise ECG with somatic/motion artifact no obvious ECG changes and nuclear images demonstrate relative uniform tracer intake and myocardial perfusion appearing within normal limits with an ejection fraction of 82%. Assessment AND Plan 1. Atherosclerosis of [place] coronary artery of [place] heart without angina pectoris I25.10 Plan His stress test in January 2017 was negative for stress-induced myocardial ischemia. His echocardiogram in January 2017 showed ejection fraction of 70%. Patient denies any chest pain, arm pain, jaw pain, neck pain, shortness of breath, or fatigue suggestive of angina at this time. We will continue to monitor this. We will not make any medication regimen changes and will continue risk factor modification. 2. Presence of coronary angioplasty implant and graft Z95.5 PTCA with KEYANA of proximal 3rd marginal artery 04/29; Plan He will continue the current treatment plan as outlined above. 3. Paroxysmal atrial fibrillation I48.0 04/29 Loop recorder; Loop recorder removed 10/15/16; Plan He denies any symptomatic recurrence of this. On physical exam he appears to maintain regular rhythm. His heart rate is well controlled. He will continue with current beta-jennifer. He will continue with aspirin and Plavix therapy. He states throughout the duration of his loop recorder no atrial fibrillation was noted. We will continue to monitor. 4. Essential hypertension I10 Plan Patient's blood pressure is well-controlled today in the office. We will continue to monitor this. We will not make any medication regimen changes. 5. Pure hypercholesterolemia E78.00 Plan He states this is being managed by primary care physician. He will continue with current cholesterol lowering medication. 6. Claudication in peripheral vascular disease I73.9 Plan He continues to have intermittent claudication. This has not worsened. His recent ROSE testing in October 2017 was negative for occlusive disease. He was instructed that if his leg pain continues that further evaluation with exercise can be done at the discretion of a vascular provider. At this time this appears stable and we will continue to monitor. Plan Detail Additional Comments Thank you for allowing us to participate in the patients plan of care, if you have any questions please do not hesitate to call. This note was generated using a voice recognition system and there may be incorrect words, spelling or punctuation that were not noted when reviewing the office note prior to saving. Follow Up 6 Months (MASSEUR/MASSEUSE/PA) 12 Months (PFM) Coding Level of Care Code Off vis,est,level 3 Diagnoses Atherosclerosis of [place] coronary artery of [place] heart without angina pectoris I25.10 [place] vs. transplanted heart: [place] heart Presence of coronary angioplasty implant and graft Z95.5 Paroxysmal atrial fibrillation I48.0 Essential hypertension I10 Hypertension type: essential hypertension Pure hypercholesterolemia E78.00 Hyperlipidemia type: pure hypercholesterolemia Claudication in peripheral vascular disease I73.9 Coding Level of Care Code Off vis,est,level 3 Diagnoses Atherosclerosis of [place] coronary artery of [place] heart without angina pectoris I25.10 [place] vs. transplanted heart: [place] heart Presence of coronary angioplasty implant and graft Z95.5 Paroxysmal atrial fibrillation I48.0 Essential hypertension I10 Hypertension type: essential hypertension Pure hypercholesterolemia E78.00 Hyperlipidemia type: pure hypercholesterolemia Claudication in peripheral vascular disease I73.9 05/05/18 1606 <Electronically signed by Anmol GIVENS> Date Anmol GIVENS Cosigner Signature: Date (if applicable) CC: Connor Kohli MD LOWER EXT ARTERIAL Observed: 11/27/2017 Status: F Source: ALEXANDER STUDY 11:31 AM [facility] REPOSITORY [facility] Cardiovascular Services [address] [address] 11/27/171129 MR#: [id number] Acct: [id number] Name: GRACIE TEMPLE Rep #: [id number] : 1950 67 From: Terry Mckenna MD Attending Dr: Rylee Singh Status: REG CLI Ordering Dr: Date: 11/27/17 Location: [facility] Sex: M C Admitted: Arterial Study - Arterial Study Arterial Study: Date of scan 11/13/2017 Interpreting physician Jhonatan: Dr. Terry Mckenna History: Patient with bilateral calf tightening pain with ambulation approximately 10 minutes on a treadmill right greater than the left here for evaluation Interpretation: Right lower extremity with normal pulsatile flow down at the legs duplex shows triphasic flow at the ankle with an ROSE 1.09 posterior tibial 1.08 of the dorsalis pedis with the digit brachial index 0.83 Left lower extremity with normal pulsatile flow with good waveform out through the digits duplex with triphasic flow both vessels at the ankle with an ROSE 1.13 the posterior tibial 1.19 of the dorsalis pedis the digit brachial index 0.85 Impression: 1. Bilateral lower extremities with no evidence of significant arterial occlusive disease with triphasic flow and ROSE 1.09 on the right 1.19 on the left with normal digit brachial indices. 11/27/17 113 <Electronically signed by Terry Mckenna MD> Date Terry Mckenna MD CC: Rylee Singh; Connor Kohli MD Date Dictated: 11/27/171129 Date Transcribed: 11/27/171129 Funding Specialist: KIRBY Banks VITAMIN D,25 HYDROXY Collected: 11/13/2017 Status: F Source: ALEXANDER 12:09 PM [facility] REPOSITORY TYPE CODE TESTS RESULT OUT OF REFERENCE UNITS RANGE LAB L506.1000 29.95-100.01 ng/mL Low Vitamin D 23.1 25-OH Result Comment: Vitamin D 25(OH) Status Range Deficiency <20 ng/mL (50nmol/L) Insuffciency 20 - 30 ng/mL (50 - 75 nmol/L) Sufficiency 30 - 100 ng/mL (75 - 250 nmol/L) Toxicity >100 ng/mL (>250 nmol/L) Performed By: #### L506.1000 #### [facility] [address] [place], [address] COMPREHENSIVE METABOLIC Collected: 11/13/2017 Status: F Source: ALEXANDER [facility] 12:09 PM [facility] REPOSITORY TYPE CODE TESTS RESULT OUT OF RANGE REFERENCE UNITS LAB L501.0100 74-106 mg/dL High GLU 137 Result Comment: Fasting Glucose result greater than or equal to 126 mg/dL suggests DIABETES MELLITUS per A.D.A. criteria. Please note revised GLUCOSE reference range effective 2017. LAB L501.1000 7-18 mg/dL Normal BUN 14 LAB L501.1100 0.70-1.30 mg/dL High CREAT,SERUM 1.32 Result Comment: The validity of the calculated GFR AND GFRAA in patients over 70 years has not been determined. Clinical correlation is essential. LAB L501.1110 >60 mL/min Low EST GFR 57 Result Comment: Non- GFR Calc LAB L501.1115 >60 mL/min Normal EST GFR - AA 69 Result Comment: GFR Calc LAB L501.1300 10-20 RATIO Normal BUN/CRE 10.6 LAB L501.1500 6.4-8.2 g/dL T Normal PROT 7.2 LAB L501.1800 3.2-5.0 g/dL Normal ALB 3.3 LAB L501.1950 2.2-4.2 g/dL Normal GLOB 3.9 LAB L501.2000 0.9-2.4 RATIO Low A/G 0.8 LAB L501.2200 8.5-10.1 mg/dL CA Normal 8.6 LAB L501.4100 15-37 U/L Normal AST 29 LAB L501.4305 45-117 U/L Normal ALK P 89 LAB L501.4405 16-61 U/L Normal ALT 38 LAB L501.4600 0.20-1.00 mg/dL T Normal BILI 0.40 LAB L501.5300 136-145 mmol/L NA Normal 138 LAB L501.5600 3.5-5.1 mmol/L K Normal 3.8 LAB L501.5900 98-107 mmol/L CL Normal 104 LAB L501.6100 21.0-32.0 mmol/L Normal CO2 25.0 LAB L501.6200 5-15 Normal GAP 9 Performed By: #### L500.4050, L501.9520 #### [facility] [address] [place], [address] THYROID STIM HORMONE Collected: 11/13/2017 Status: F Source: JASPER (TSH) 12:09 PM [facility] REPOSITORY TYPE CODE TESTS RESULT OUT OF RANGE REFERENCE UNITS LAB L501.9520 0.358-3.74 uIU/mL Normal TSH 2.90 Performed By: #### L500.4050, L501.9520 #### [facility] [address] [place], [address] DHEA SULFATE Collected: 11/13/2017 Status: F Source: JASPER 12:09 PM [facility] REPOSITORY Order Comment: Has Patient had Radioactive Injection for X-ray?: N TYPE CODE TESTS RESULT OUT OF RANGE REFERENCE UNITS LAB L3300.1500 30.9-295.6 ug/dL High DHEA SULF 389.2 4020 Result Comment: Performed at: - [facility] [id number] Soldering Machine Operator: Petr Arzola PhD, Phone: [phone] Performed By: #### L3300.1500 #### [facility] (refer to report for specific site) refer to report for address and phone number CARDIOLOGY VISIT Observed: 10/30/2017 Status: F Source: JASPER REPORT 11:43 AM [facility] REPOSITORY [facility] [address] [place] [address]. [address] [place] [address] OFFICE VISIT Date of Service: 10/30/17 MR#: [id number] Acct: [id number] Name: GRACIE TEMPLE Rep #: [id number] : 1950 Provider: Rylee Singh Age/Sex: 67/M Location: [facility] Status: Signed HPI HPI Details: GRACIE TEMPLE, is a 67 M who presents to the office today for a cardiovascular follow-up. He has a history of coronary artery disease with stenting to his circumflex and obtuse marginal in 2012. He did have a loop recorder has since been explanted, this was placed for syncope. He did have a tilt and EP test that were negative. He also has a history of peripheral vascular disease, adrenal insufficiency. From a cardiac standpoint, patient is doing well. He does not have any chest discomfort/heaviness/tightness. His exercise tolerance is stable for his age. He does not have any worsening symptoms of shortness of breath. He denies any PND. He does not have any orthopnea. He does not have any symptoms of congestive heart failure. He does occasionally have palpitations where he feels that his heart is racing. This usually occurs once a month, at night and does not last long. He does not have any lightheadedness or dizziness. He does not have any near-syncope or syncope. He does not have any lower extremity edema. He does have some symptoms of claudication, he did see Dr. Mckenna in the past. It has not gotten any worse. Although he sts that he can not walk far because of pain in his legs. Intake Vital Signs10/30/17 Height 5 ft 5 in 10/30/17 Weight: 222 lb 10/30/17 Body Mass Index (BMI) 36.9 10/30/17 Blood Pressure 118/78 Intake Visit Reasons: 6 M Behavior Therapist Required: No Accompanied by: none Is patient in pain?: No Allergies acetaminophen [From Tylenol] Allergy (Verified 10/30/17 11:08) Anaphylaxis hydromorphone HCl [From Dilaudid] Allergy (Verified 10/30/17 11:08) Unknown Penicillins Allergy (Verified 10/30/17 11:08) Hives Medications Aspirin [Aspirin, Baby] 81 mg PO QHS 04/23/13 [History Confirmed 10/30/17] Ezetimibe [Zetia] 10 mg PO QHS 04/23/13 [History Confirmed 10/30/17] Nortriptyline HCl [Pamelor] 25 mg PO QHS 04/23/13 [History Confirmed 10/30/17] Pantoprazole Sodium [Protonix] 40 mg PO DAILY 04/23/13 [History Confirmed 10/30/17] Tamsulosin HCl [Flomax] 0.4 mg PO QHS 04/23/13 [History Confirmed 10/30/17] Clopidogrel Bisulfate [Plavix] 75 mg PO QHS 10/18/13 [History Confirmed 10/30/17] Prasterone (Dhea)/Calcium Carb [Dhea 50 mg Tablet] 1 ea PO QHS 10/18/13 [History Confirmed 10/30/17] Finasteride [Proscar] 5 mg PO DAILY 10/12/16 [History Confirmed 10/30/17] Multivitamin [Daily Multiple Vitamin] 1 ea PO DAILY 10/12/16 [History Confirmed 10/30/17] Solifenacin Succinate [Vesicare] 10 mg PO DAILY 10/12/16 [History Confirmed 10/30/17] lisinopril 20 mg tablet 20 mg PO DAILY #90 tab 07/11/17 [Rx Confirmed 10/30/17] cilostazol 100 mg tablet 100 mg PO BID #180 tab 07/16/17 [Rx Confirmed 10/30/17] metoprolol tartrate 50 mg tablet 75 mg PO BID #270 tab 07/16/17 [Rx Confirmed 10/30/17] Ejection fraction %: 65 to 70 PFSH Medical History Hypertension (Chronic) Left ventricular hypertrophy (Chronic) Paroxysmal atrial fibrillation (Chronic) Atherosclerotic heart disease of [place] coronary artery without angina pectoris (Chronic) HLD (hyperlipidemia) (Chronic) Surgical History Presence of coronary angioplasty implant and graft (Chronic) History of resection of meningioma (Resolved) Hx of cataract surgery (Resolved) History of lumbar surgery (Resolved) Family History Mother CAD (coronary artery disease) Sister CAD (coronary artery disease) Father Heart disease Social History Smoking Status: Never smoker alcohol intake: never substance use type: does not use caffeine: Yes Type: carbonated beverages Number of servings: 1 what type of physical activity do you participate in: none ROS Const Const: Negative for weakness, fatigue, fever(s) or headache(s) Eyes Eyes: Negative for blind spots, loss of peripheral vision or transient loss of vision ENT ENT: Negative for headache(s), dizziness, tinnitus or Nosebleed/epistaxis Cardio Chest Pain: No Palpitations: Yes Edema: None Muscle aches with walking: None Resp Respiratory: Negative for SOB with activity, SOB at rest, SOB orthopnea\SOB lying down or Cough GI GI: Negative nausea, vomiting, heartburn or vomiting blood/hematemesis : Negative for hematuria Musc Musc: Negative for muscle aches/ myalgia Neuro Neuro: Negative for weakness, headache(s), dizziness, near syncope, syncope, lightheadedness or orthostatic symptoms Nixon Hematologic/Lymphatic: Negative for easy bleeding Endo Endo: Negative for fatigue Cardiology Exam Const Appearance: cooperative, no acute distress and well developed Orientation: alert, awake and oriented x3 Head Head: normocephalic and atraumatic Mouth: moist mucous membranes Eyes General: appearance normal, both eyes and all related structures Conjunctivae: conjunctivae normal Pupils: PERRL EOM: EOM intact bilaterally Neck Neck: normal visual inspection, no lymphadenopathy and no JVD Carotids: Negative bruit Neck Mass: Negative Neck mass Chest Chest inspection: normal inspection of the chest and symmetric chest movement Auscultation: Bilateral: Clear to Auscultation Cardio Palpation: normal PMI Rate: regular rate Rhythm: regular rhythm Heart sounds: S1 normal and S2 normal; negative rub, gallop or murmur GI GI: normal to inspection, soft, no hepatosplenomegaly and bowel sounds present; negative tender Neuro General: alert, awake, oriented x3, CN's II-XI intact bilaterally and moves all extremities Extremities Pulses: Normal: Right Radial Pulse, Left Radial Pulse, Diminished: Right Posterior Tibial Pulse, Left Posterior Tibial Pulse Lower Extremity Edema: None: Bilateral Psych Psychological: normal affect Supplemental Info Echocardiogram in 2017 demonstrates an ejection fraction of 70%. Left atrium mildly enlarged. Trivial valvular insufficiency. This was negative for ischemia. Assessment AND Plan 1. Atherosclerosis of [place] coronary artery of [place] heart without angina pectoris I25.10 Plan Stable, from a cardiac standpoint patient does not have any symptoms of angina. We recommend that they continue with current aggressive medical management and risk factor modification. 2. Essential hypertension I10 Plan Blood pressure is well controlled on current medications, we do not recommend any changes at this time. 3. Pure hypercholesterolemia E78.00; E78.0 Plan Lipid profile from March 2017 demonstrates total cholesterol 167, HDL 54, LDL 93. Managed by primary care doctor. Do not recommend making any adjustments. 4. Paroxysmal atrial fibrillation I48.0 04/29 Loop recorder; Loop recorder removed 10/15/16; Plan Patient has not had any further recurrence. We will continue to monitor 5. Peripheral arterial occlusive disease I77.9 Plan Patient continues to have symptoms of claudication, he states that he is not able to walk very far without difficulty. Would like to reevaluate his ABIs to evaluate stability. If this is worsened will refer back to Dr. Mckenna. Plan Detail Other Orders Orders: Additional Comments Thank you for allowing us to participate in patient's plan of care, if you have any questions please do not hesitate to call. This note was generated using a voice recognition system and there may be incorrect words, spelling or punctuation errors that were not noted when reviewing the office note prior to saving. Follow Up 6 Months (PFM) Coding Level of Care Code Off vis,est,level 4 Diagnoses Atherosclerosis of [place] coronary artery of [place] heart without angina pectoris I25.10 [place] vs. transplanted heart: [place] heart Essential hypertension I10 Hypertension type: essential hypertension Pure hypercholesterolemia E78.00; E78.0 Hyperlipidemia type: pure hypercholesterolemia Paroxysmal atrial fibrillation I48.0 Peripheral arterial occlusive disease I77.9 Coding Level of Care Code Off vis,est,level 4 Diagnoses Atherosclerosis of [place] coronary artery of [place] heart without angina pectoris I25.10 [place] vs. transplanted heart: [place] heart Essential hypertension I10 Hypertension type: essential hypertension Pure hypercholesterolemia E78.00; E78.0 Hyperlipidemia type: pure hypercholesterolemia Paroxysmal atrial fibrillation I48.0 Peripheral arterial occlusive disease I77.9 10/30/17 1143 <Electronically signed by Rylee GREENE> Date Rylee GREENE Cosigner Signature: Date (if applicable) CC: Connor Kohli MD BASIC METABOLIC Collected: 10/16/2017 Status: F Source: ALEXANDER PROFILE (BMP) 2:59 PM [facility] REPOSITORY TYPE CODE TESTS RESULT OUT OF RANGE REFERENCE UNITS LAB L501.0100 74-106 mg/dL High GLU 140 Result Comment: Fasting Glucose result greater than or equal to 126 mg/dL suggests DIABETES MELLITUS per A.D.A. criteria. Please note revised GLUCOSE reference range effective 2017. LAB L501.1000 7-18 mg/dL Normal BUN 15 LAB L501.1100 0.70-1.30 mg/dL High CREAT,SERUM 1.33 Result Comment: The validity of the calculated GFR AND GFRAA in patients over 70 years has not been determined. Clinical correlation is essential. LAB L501.1110 >60 mL/min Low EST GFR 57 Result Comment: Non- GFR Calc LAB L501.1115 >60 mL/min Normal EST GFR - AA 69 Result Comment: GFR Calc LAB L501.1300 10-20 RATIO Normal BUN/CRE 11.3 LAB L501.2200 8.5-10.1 mg/dL CA Normal 8.9 LAB L501.5300 136-145 mmol/L NA Normal 137 LAB L501.5600 3.5-5.1 mmol/L K Normal 3.7 LAB L501.5900 98-107 mmol/L CL Normal 104 LAB L501.6100 21.0-32.0 mmol/L Normal CO2 25.0 LAB L501.6200 5-15 Normal GAP 8 Performed By: #### L500.2500, L501.9910 #### [facility] [address] [place], [address] PSA,TOTAL - ANNUAL Collected: 10/16/2017 Status: F Source: ALEXANDER SCREEN 2:59 PM [facility] REPOSITORY TYPE CODE TESTS RESULT OUT OF RANGE REFERENCE UNITS LAB L501.9910 0.00-4.00 ng/mL Normal PSA,TOT 0.71 SCREEN Result Comment: This test was performed using the TPSA assay method for the Xylo chemistry system. Values obtained with different assay methods cannot be used interchangably. When changing PSA assays in the course of monitoring a patient, additional sequential testing should be carried out to confirm baseline values. Performed By: #### L500.2500, L501.9910 #### [facility] [address] [place], [address] CHEST PA AND LATERAL Observed: 10/04/2017 Status: F Source: ALEXANDER 10:36 AM [facility] REPOSITORY [facility] Imaging Services [address] [place] [address] Chest PA and Lateral MR#: [id number] Acct: [id number] Name: GRACIE TEMPLE Rep #: [id number] : 1950 M 67 From: Eusebio Abdalla MD PCP: Connor Kohli MD Status: REG CLI Study: Chest PA and Lateral Date of Exam: 10/04/17 Exam# [id number] Ordering Dr: Octavio Rasmussen MD STUDY: X-RAY CHEST REASON FOR EXAM: Male, 67 years old. Dyspnea and hypoxemia. TECHNIQUE: PA and lateral views of the chest. COMPARISON: Comparison is made with prior study dated May 23, 2015. FINDINGS: Stable mild increased linear markings at the lung bases suggestive of mild bibasilar scarring. There is no demonstrated pleural abnormality. Normal size heart. Normal mediastinum and natalia. Normal visualized pulmonary arteries. There is atherosclerotic tortuosity of the aortic arch and descending thoracic aorta. Normal visualized thoracic spine. Normal visualized ribs, clavicles, and shoulders. There is no demonstrated abnormality of the visualized soft tissue structures of the upper abdomen. RAD/Chest PA and Lateral IMPRESSION: Stable examination. Findings suggestive of mild bibasilar linear scarring. Electronically Signed: Eusebio Abdalla MD at 13:22 EDT Tel [phone], Service support , CC: Connor Kohli MD; Octavio Rasmussen MD Funding Specialist: Signed Observed: 09/24/2017 Status: F Source: ALEXANDER CULTURE, URINE 3:00 PM [facility] REPOSITORY Urine Culture ORGANISM 1: Presumptive E. coli Dugger Count >100,000 Presumptive E. coli: REACTION Amoxacillin/Clavulanic Acid $ <=2 S Ampicillin $ <=2 S Ampicillin/Sulbactam $ <=2 S Cefazolin $ <=4 S Cefepime $ <=1 S Ceftriaxone $ <=1 S Ciprofloxacin $ <=0.25 S ESBL - Ertapenim $$$ <=0.5 S Gentamicin $ <=1 S Imipenem *NF <=0.25 S Levofloxacin $ <=0.12 S Piperacillin/Tazobactam $$ <=4 S Tobramycin $ <=1 S Trimethoprim/Sulfametho $ <=20 S (NF) indicates non-formulary drug at [facility]. Approval by Infectious Disease Specialist required before non-formulary drugs may be ordered and/or dispensed. Performed By: #### M100.0650 #### [facility] [place], [address] ALLERGIES ALLERGIES DATE TYPE / NAME / CODE REACTION SEVERITY SOURCE CODE 05/05/2018 Drug hydromorphone Unknown Unknown [place] Allergy/41 HCl/[id number](RXNO [facility]18[facility]) Repository 05/05/2018 Drug Penicillins/[id number] Hives Unknown [place] Allergy/41 476(RXNORM) [facility] [id number]([facility]) Repository 05/05/2018 Drug acetaminophen/F0060 Anaphylaxis Unknown [place] Allergy/41 38419(RXNORM) [facility] [id number]([facility]) Repository ENCOUNTERS ENCOUNTERS ADMIT/DISCHARGE ACCOUNT ADMITTING ENCOUNTER LOCATION SOURCE NUMBER CLASS 06/06/2018/ [id number] Emergency [place] 8 0 [facility] ing:ED Repository 06/05/2018 [id number] Ambulatory Alexander [place] 5 [facility] ing:MTLAB Repository 05/27/2018 [id number] Ambulatory Alexander [place] 1 [facility] ing:LAB Repository 05/07/2018 [id number] Ambulatory [place] 2 [facility] ing:MFPLAB Repository 05/05/2018/ [id number] Ambulatory BMSBuilding:B [place] 8 4 [facility] Repository 11/13/2017 [id number] Ambulatory Alexander [place] 7 [facility] ing:CVS Repository 11/13/2017 [id number] Ambulatory Alexander [place] 8 [facility] ing:MTLAB Repository 10/30/2017/ [id number] Ambulatory BMSBuilding:B [place] 8 8 [facility] Repository 10/23/2017 [id number] Ambulatory BMS [place] 4 [facility] Repository 10/17/2017 [id number] Ambulatory BMSBuilding:B [place] 9 [facility] Repository 10/16/2017 [id number] Ambulatory [place] 5 [facility] ing:MFPLAB Repository 10/04/2017 [id number] Ambulatory [place] 0 [facility] ing:HPRAD Repository 09/24/2017 [id number] Ambulatory [place] 5 [facility] ing:LABSPEC Repository PAYERS PAYERS ENCOUNTER GUARANTOR PAYER SUBSCRIBER SOURCE 06/06/2018 GRACIE E Primary GRACIE E MEEKDOB: [place] [id number] CR Insurance:MEDICARE [id number], PART A BPolicy Number: [facility] [address]Esi: [id number] Repository Date:2018-06-06 () 06/06/2018 Secondary GRACIE E MEEKDOB: [place] Insurance:HUMANA [id number] Number: Repository [id number] Date:[id number] [address]OJ: 06/06/2018 Tertiary NOT GIVENUNK [place] Insurance:SELF PAY [facility] Number: Effective Repository Date:2018-06-06 06/05/2018 GRACIE E Primary GRACIE E MEEKDOB: [place] [id number] CR Insurance:MEDICARE [id number] [address] [place] A BPolicy Number: [facility] [address]Faa: [id number] Repository Date:2018-06-04 () 06/05/2018 Secondary GRACIE E MEEKDOB: [place] Insurance:HUMANA [id number] Number: Repository [id number] Date:7844-56-25KX [address] [address]JO: 06/05/2018 Tertiary NOT GIVENUNK [place] Insurance:[facility]LF [facility]Y [facility] Number: Effective Repository Date:2018-06-04 05/27/2018 GRACIE E Primary GRACIE E MEEKDOB: [place] [id number] CR Insurance:MEDICARE [id number] [facility] [address] PART A BPolicy Number: [facility] [address]Jcy: [id number] Repository Date:2018-05-27 () 05/27/2018 Secondary GRACIE E MEEKDOB: [place] Insurance:HUMANA [id number] Number: Repository [id number] Date:[id number] [address] [address]UN: 05/27/2018 Tertiary NOT GIVENUNK [place] Insurance:SELF PAY [facility] Number: Effective Repository Date:2018-05-27 05/07/2018 GRACIE E Primary GRACIE E MEEKDOB: [place] [id number] CR Insurance:MEDICARE [id number] [facility] [address], PART A BPolicy Number: [facility] [address]Emr: [id number] Repository Date:2018-05-07 () 05/07/2018 Secondary GRACIE E MEEKDOB: [place] Insurance:HUMANA [id number] [facility] Number: Repository [id number] Date:[id number] [address] [address]RV: 05/07/2018 Tertiary NOT GIVENUNK [place] Insurance:SELF PAY [facility] Number: Effective Repository Date:2018-05-07 05/05/2018 GRACIE E Primary GRACIE E MEEKDOB: [place] [id number] [place] Insurance:MEDICARE [id number] [facility] [address], PART A BPolicy Number: [facility] [address]Plz: [id number] Repository Date:2017-10-30 () 05/05/2018 Secondary GRACIE E MEEKDOB: [place] Insurance:HUMANA [id number] [facility] Hospital Number: Repository [id number] Date:[id number] [address] [place] [address]AI: 05/05/2018 Tertiary NOT GIVENUNK [place] Insurance:SELF PAY [facility] Number: Effective Repository Date:2018-03-13 11/13/2017 GRACIE E Primary GRACIE E MEEKDOB: [place] [id number] [address] Insurance:MEDICARE [id number] [facility] [address], PART A BPolicy Number: [facility] [address]Mfl: [id number] Repository Date:2017-10-30 () 11/13/2017 Secondary GRACIE E MEEKDOB: [place] Insurance:HUMANA [id number] [facility] Number: Repository [id number] Date:8246-12-20JQ [address] [place] [address]XS: 11/13/2017 Tertiary NOT GIVENUNK [place] Insurance:SELF PAY [facility] Number: Effective Repository Date:2017-10-30 11/13/2017 GRACIE E Primary GRACIE E MEEKDOB: [place] [id number] [place] Insurance:MEDICARE [id number] [facility] [address], PART A BPolicy Number: [facility] [address]Myj: [id number] Repository Date:2017-11-13 (HP) 11/13/2017 Secondary GRACIE E MEEKDOB: [place] Insurance:HUMANA [id number] [facility] Hospital Number: Repository [id number] Date:3957-72-69PJ [address] [address]QW: 11/13/2017 Tertiary NOT GIVENUNK [place] Insurance:SELF PAY [facility] Effective Repository Date:2017-11-13 10/30/2017 GRACIE E Primary GRACIE E MEEKDOB: [place] [id number] [place] Insurance:MEDICARE [id number] [address] PART A BPolicy Number: [address] [address] [id number] [place]ository [place] [address]Wjq: Date:2017-05-27 () 10/30/2017 Secondary GRACIE E MEEKDOB: [place] Insurance:HUMANA [id number] [facility] Number: Repository [id number] Date:9173-50-32SN [address] [address]TE: 10/30/2017 Tertiary NOT GIVENUNK [place] Insurance:SELF PAY [facility]: Effective Repository Date:2017-05-27 10/23/2017 Gracie E Primary Gracie E MeekDOB: [place] [id number] CR Insurance:MEDICARE [id number] [facility] PART A BPolicy Number: [facility] [address]Xhk: [id number] Repository Date:2017-10-23 () 10/23/2017 Secondary Gracie E MeekDOB: [place] Insurance:HUMANA [id number] [facility] Number: Repository [id number] Date:9124-74-99SB [address] [address]TI: 10/23/2017 Tertiary NOT GIVENUNK [place] Insurance:SELF PAY [facility]: Effective Repository Date:2017-10-23 10/17/2017 Gracie E Primary Gracie E MeekDOB: [place] [id number] [place] Insurance:MEDICARE [id number] [facility] [address], PART A BPolicy Number: [facility] [address]Xqj: [id number] Repository Date:2017-10-17 (HP) 10/17/2017 Secondary Gracie E MeekDOB: [place] Insurance:HUMANA [id number] [facility] Hospital Number: Repository [id number] Date:0752-31-91RF [address] [address]IZ: 10/17/2017 Tertiary NOT GIVENUNK [place] Insurance:SELF PAY [facility] Number: Effective Repository Date:2017-10-17 10/16/2017 Gracie E Primary Gracie E MeekDOB: [place] [id number] CR Insurance:MEDICARE [id number] [facility] [address], PART A BPolicy Number: [facility] [address]Whv: [id number] Repository Date:2017-10-16 () 10/16/2017 Secondary Gracie E MeekDOB: [place] Insurance:HUMANA [id number] [facility] Number: Repository [id number] Date:8556-55-48DL [address] [address]HX: 10/16/2017 Tertiary NOT GIVENUNK [place] Insurance:SELF PAY [facility] Number: Effective Repository Date:2017-10-16 10/04/2017 Gracie E Primary Gracie E MeekDOB: [place] [id number] CR Insurance:MEDICARE [id number] [facility] [address], PART A BPolicy Number: [facility] [address]Tqu: [id number] Repository Date:2017-10-04 () 10/04/2017 Secondary Gracie E MeekDOB: [place] Insurance:HUMANA [id number] [facility] University [facility] Number: Repository [id number] Date:8870-55-34WP [address] [address]FQ: 10/04/2017 Tertiary NOT GIVENUNK [place] Insurance:SELF PAY [facility] Number: Effective Repository Date:2017-10-04 09/24/2017 Gracie E Primary Gracie E MeekDOB: [place] [id number] CR Insurance:MEDICARE [id number] [place] [address], PART A BPolicy Number: [facility] [address]Vrv: [id number] Repository Date:2017-09-24 () 09/24/2017 Secondary Gracie E ekDOB: [place] Insurance:HUMANA [id number] [facility] Hospital Number: Repository [id number] Date:[id number] [address]RB: 09/24/2017 Tertiary NOT GIVENUNK [place] Insurance:SELF PAY [facility] Number: Effective Repository Date:2017-09-24
== END ==
PROVIDERS: Family Provider Family Medicine; PCP Family Medicine; Referring Provider Internal Medicine Endocrinology, Diabetes & Metabolism; Visit Provider Internal Medicine Endocrinology, Diabetes & Metabolism
DX: E27.49 Other adrenocortical insufficiency (principal); E04.9 Nontoxic goiter, unspecified; E55.9 Vitamin D deficiency, unspecified
CPT/HCPCS: 36415; 80053; 82306; 82627; 84443; 82626

== ENCOUNTER → 2018-06-05 09:06 | Outpatient (CLI) | payer MEDICARE, OTHER, SELFPAY ==
[2018-05-05 13:27] VITALS: BMI 37.8
[2018-06-05 10:56] LABS: AST(SGOT) 24 U/L (15-37); Alanine Aminotransfer ALT/SGPT 39 U/L (16-61); Albumin, Serum 3.4 g/dL (3.2-5.0); Alkaline Phosphatase 90 U/L (45-117); BUN 14 mg/dL (7-18); BUN/Creat Ratio 8.8 RATIO (10-20); Bilirubin, Direct 0.12 mg/dL (0.00-0.30); Calcium,Total 8.8 mg/dL (8.5-10.1); Chloride 106 mmol/L (98-107); Creatinine, Serum 1.59 mg/dL (0.70-1.30); EST Glomerular Filtration Rate 46 mL/min (>60); Est Glom Filt Rate - Afr Amer 56 mL/min (>60); Globulin 3.8 g/dL (2.2-4.2); Glucose 173 mg/dL (74-106); Potassium 3.9 mmol/L (3.5-5.1); Protein, Total 7.2 g/dL (6.4-8.2); Sodium Level 140 mmol/L (136-145)
[2018-06-05 10:57] LABS: Anion Gap 9 (5-15)
[2018-06-05 11:40] LABS: HIV - WCH Non-Reactive (Nonreactive)
[2018-06-05 12:39] LABS: Basophil# 0.07 X10^3/uL; Basophil% 1.2 % (0-1); Eosinophil# 0.38 X10^3/uL; Eosinophils% 6.3 % (0-5); Hematocrit 47.9 % (40-54); Hemoglobin 15.8 g/dl (13.0-16.5); Lymphocyte % 29.9 % (19-41); Mean Corpuscular Hgb 31.1 pg (27.0-32.0); Mean Corpuscular Volume 94.3 fL (80-94); Mean Platelet Vol. 10.6 fl (6.2-12.0); Monocyte# 0.77 X10^3/uL; Monocyte% 12.8 % (0-10); Neutrophil % 49.6 % (47-70); Platelet Count 225 K/mm3 (150-450); RBC Distribution Width CV 13.3 % (11.6-14.6); RBC Distribution Width SD 45.9 fl (35.1-43.9); Red Blood Count 5.08 M/mm3 (4.6-6.2)
[2018-06-05 12:41] LABS: POSITIVE COUNT NO; POSITIVE DIFFERENTIAL NO; POSITIVE MORPHOLOGY NO
[2018-06-08 16:06] LABS: HEPATITIS B SURFACE AG Negative (Negative); QNTFERON TB Mitogen Value > 10.00 IU/mL (.); QNTFERON TB Nil Value 0.04 IU/mL (.); QNTFERON TB1+ Ag Value 0.05 IU/mL (.); QNTFERON TB2+ Ag Value 0.04 IU/mL (.)
[2018-06-09 12:37] LABS: Hep B Surface Antibodies Non Reactive (.); Hep C Antibodies 0.2 s/co ratio (0.0-0.9); Hepatitis B Core AB IgM Negative (Negative); QNTIFERON TB Positive Criteria Negative (Negative)
== END ==
PROVIDERS: Family Provider Family Medicine; PCP Family Medicine; Referring Provider Dermatology; Visit Provider Dermatology
DX: Z79.899 Other long term (current) drug therapy (principal)
CPT/HCPCS: 36415; 80048; 80076; 85025; 86480; 86703; 86705; 86706; 86803; 87340

== ENCOUNTER 2018-06-06 19:36 | Emergency (ER) | payer MEDICARE, OTHER, SELFPAY ==
[2018-05-05 13:27] VITALS: BMI 37.8
[2018-06-06 19:37] VITALS: PULSE 82; RESP 20; TEMP 36.4; O2SAT 93; BMI 36.1
--- NOTE | 2018-06-06 20:20 | CT_ITS ---
STUDY: CT ABDOMEN AND PELVIS WITHOUT CONTRAST REASON FOR EXAM: Male, 68 years old. Left flank pain. RADIATION DOSAGE (If Supplied By Facility): CTDIvol = ( 22.37 ) mGy, DLP = ( 1162.46 ) mGycm TECHNIQUE: Transaxial images were obtained from the dome of the diaphragm to the symphysis pubis without oral contrast, and without intravenous contrast. Sagittal and coronal images were reconstructed. Individualized dose optimization techniques were used for this CT. COMPARISON: CT of the chest dated October 18, 2013 FINDINGS: The visualized lung bases are unremarkable. There are coronary artery calcifications present. Normal liver. Normal gallbladder and extrahepatic biliary system. Normal spleen. Normal pancreas. Normal bilateral adrenal glands. There are nonobstructing right renal calculi measuring up to 3.4 mm. There is left hydroureteronephrosis secondary to a 4.6 mm calculus within the mid left ureter. Normal visualized stomach. Normal small intestine. There are multiple colonic diverticula consistent with diverticulosis. The appendix is visualized and appears normal. There is diffuse atherosclerotic calcification of the abdominal aorta, without a demonstrated aneurysm. Normal inferior vena cava. Normal retroperitoneum. Normal urinary bladder. Normal abdominal wall. There are diffuse degenerative changes of the visualized lumbar spine. There are pedicle screws from L3 through S1 present. CT/Abdomen/Pelvis without Cont IMPRESSION: Left hydroureteronephrosis secondary to a 4.6 mm calculus within the mid left ureter. Nonobstructing right renal calculi measuring up to 3.4 mm. Colonic diverticulosis. Atherosclerosis. Postsurgical changes of the lumbar spine. Electronically Signed: Kelley Gunn MD at 21:33 EST Tel , Service support ,
[2018-06-06] MEDS: Ondansetron 4 MG/2 ML Vial IV (20:40)
[2018-06-06] MEDS: 0.9% Normal Saline 1,000 ML 150 ML IV (20:40)
[2018-06-06] MEDS: Morphine 4 MG/ML Syringe IV (20:40)
--- NOTE | 2018-06-06 20:51 | ED.VISSUMM ---
- ER Visit Summary Date of Service: 06/06/18 Chief Complaint: Left flank pain History of Present Illness: The patient is a 68 M gradual onset of left flank pain this afternoon. He reports urinary frequency but no dysuria or discoloration. He does have a history of kidney stones 20+ years ago. He was told recently an x-ray of his back showed stones in the left kidney. He denies nausea, vomiting, or diarrhea. Physical Examination: Vital signs gross unremarkable. Patient sitting upright on the side of the bed. He is in no acute distress. Heart is regular rate and rhythm. Lung sounds are clear. Abdomen is soft with reproducible tenderness of the left lateral abdominal wall. There is no guarding or rebound. He has no CVA tenderness. Test Results: Patient had CBC and chemistry studies drawn yesterday that were reviewed. His creatinine was 1.59. Chemistries were repeated tonight and creatinine is currently 1.52. Urinalysis shows blood but no sign of acute infection. CT flank reveals left hydroureteronephrosis secondary to a 4.6 mm calculus in the mid left ureter. Emergency Department Course and Treatment: Patient was given 4 mg of morphine and 4 mg of Zofran. On initial repeat examination pain was significantly improved. On later repeat exam patient states pain was starting to return. He is given 2 mg of morphine. At this time patient wishes to try pain medication at home. He will be written for oxycodone and Zofran. He is instructed to return for any worsening symptoms. He will be referred to Dr. Lombardi for follow-up. Treatment Plan: [] Disposition: Discharge Impression: Left ureterolithiasis This note was generated with [employer] dictation software. It may contain incorrect words, spelling, and punctuation that were not noted in review of the chart prior to signing ED Disposition - Plan for ED Patient: Chief Complaint: Flank Pain Referrals: Connor Kohli MD [Primary Care Provider] -
[2018-06-06 21:05] LABS: Anion Gap 8 (5-15); BUN 16 mg/dL (7-18); BUN/Creat Ratio 10.5 RATIO (10-20); Chloride 104 mmol/L (98-107); Creatinine, Serum 1.52 mg/dL (0.70-1.30); EST Glomerular Filtration Rate 49 mL/min (>60); Est Glom Filt Rate - Afr Amer 59 mL/min (>60); Estimated Creatinine Clearance 40.46 ml/min; Glucose 152 mg/dL (74-106); Sodium Level 139 mmol/L (136-145)
[2018-06-06] MEDS: Morphine 2 MG/ML Syringe IV ×2 (22:38→23:17)
[2018-06-06 22:41] VITALS: BP 158/80; PULSE 79; RESP 16; O2SAT 95
[2018-06-06 22:47] LABS: Bacteria 0 SEEN /hpf (None Seen); Mucous, Urine 0 SEEN /hpf (<or=2+); White Blood Cells 0 SEEN /hpf (0-5)
[2018-06-06 22:54] LABS: Color, Urine Yellow (Yellow); Glucose, Dipstick 1000 mg/dl (Normal); Ketone-Dipstick Negative (Negative); Leukocyte Esterase-Dipstick Negative /ul (Negative); Nitrite-Dipstick Negative (Negative); Occult Blood-Urine 250 /ul (Negative); Protein-Dipstick Negative (Negative); Specific Gravity, Urine 1.015 (1.002-1.030); Urine Bilirubin Dipstick Negative (Negative); Urine Clarity Sl. Cloudy (Clear); Urine Urobilinogen Normal (Normal)
[2018-06-06 23:00] LABS: Red Blood Cells-Urine 5-10 SEEN /hpf (0-5); Squamous Epithelial Cells - UA 0-5 SEEN /hpf (0-5)
--- NOTE | 2018-06-06 23:30 | ED.DEP ---
ED Disposition - Plan for ED Patient: Disposition: Home or Assisted Living Chief Complaint: Flank Pain Instructions: ED Stone Renal W Colic Prescriptions: Oxycodone [Oxyir] 5 mg PO Q6H PRN PRN 4 Days #20 tablet PRN Reason: Pain Ondansetron [Zofran Odt] 4 mg PO Q8H PRN PRN #10 tablet PRN Reason: Nausea Referrals: Avinash Lombardi MD [STAFF PHYSICIAN] - As Needed
[2018-06-06] MEDS: oxyCODONE 5 MG Tablet PO (23:47)
[2018-06-06 23:48] VITALS: BP 127/74; PULSE 83; RESP 16; O2SAT 97
[2018-06-06] MEDS: Ondansetron ODT 4 MG Tablet PO (23:48)
== END 2018-06-06 23:49 | disposition home or self-care (01) ==
PROVIDERS: Emergency Provider Emergency Medicine; Family Provider Family Medicine; PCP Family Medicine
DX: N13.2 Hydronephrosis with renal and ureteral calculous obstruction (principal); Z87.442 Personal history of urinary calculi; K57.30 Diverticulosis of large intestine without perforation or abscess without bleeding
CPT/HCPCS: 74176; 80048; 81001; 96361; 96374; 96375; 96376; 99284; J7030; J2405

== ENCOUNTER 2018-10-06 08:30 | Outpatient (RCR) | payer MEDICARE, OTHER, SELFPAY ==
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
--- NOTE | 2018-10-06 09:31 | HP.PTDCSUM ---
HP - PT D/C Summary It has been my pleasure to treat GRACIE TEMPLE under orders from ALESHIA DELACRUZ, for the diagnosis of LUMBAR SPINAL STENOSIS WITH CLAUDICATION for a total of 10 visit(s). Discharge Date: Please see the following information for a summary of their discharge status. - Subjective Subjective: PATIENT REPORTS THE PAIN IS NOT BOTHERING HIM MUCH AT NIGHT NOW. HE ALSO REPORTS THE PAIN STOPS AT HIS HIP NOW AND DOESN'T GO INTO HIS THIGH THAT IS DEFINATELY BETTER. UPCOMING TRIP - PLANS TO DO HEP AND WALK FOR EX AT THAT TIME THEN HOPES TO USE HIS HOME POOL FOR EX UPONE RETURN. PATIENT REPORTS IT FEELS REALLY GOOD WHEN HE IS IN THE POOL. PLANS TO FOLLOW UP WITH DR. DELACRUZ 10/06/18 FOR INJECTION BEFORE VACATION. MILD 3/10 LEFT LBP WALKING IN TODAY BUT NO PAIN NOW. PATIENT REPORTS THAT BEFORE DOING THERAPY HE HAD STARTED DRIVING DOWN TO THE BAR TO SAVE HIMSELF ABOUT 100 STEPS BUT NOW HE CAN WALK IT A COUPLE TIMES A DAY. - Pain Lumbar Spine Pain Intensity (Out of 10): 1 LLE Pain Intensity (Out of 10): 0 - Overall Improvement % Improvement: 40 - Objective Objective/Function: ALL GOALS MET. UPON EXAM TODAY: INDEP TRANSFER SIT TO STAND WITHOUT UE ASSIT. INDEP GAIT INTO PT WITHOUT AD BUT LIMPING ON LLE. INCREASED TRUNK FLEXION. Motor deficit: RIGHT LE 5/5. LLE: HIP 3+/5, KNEE 4-/5, ANKLE 2+/5. Sensory deficit: NO. ROM deficit: TIGHT VANDANA HAMSTRINGS, HIP FLEXORS AND GASTROC SOLEUS COMPLEX'S LEFT > RIGHT. Dural Signs: POSITIVE LLE. Lumbar mvmt loss: flex - MIN. ext - ABDIRAHMAN. R SG - ABDIRAHMAN. L SG - MOD. INCREASED PAIN WITH VANDANA SG TESTING BUT RIGHT > LEFT AND LEFT ROM HAS IMPROVED. Core strength: POOR. Palpation: NO ACUTE TENDERNESS WITH PALPATION OF LUMBOSACRAL REGIONS. LUMBAR OSWESTRY SCORE HAS IMPROVED FROM 21 TO 12 - Goals Goal 1:: DECREASE C/O BACK AND VANDANA LE SX'S. Goal Progress: Goal Met Goal 2:: IMPROVE SITTING, STANDING, WALKING, LIFTING, RECREATIONAL, TRAVEL AND HOMEMAKING FUCNTION Goal Progress: Goal Met Goal 3:: INSTRUCT IN PROPHYLAXIS Goal Progress: Goal Met - Plan Plan: D/C. PATIENT AGREEABLE. - D/C Information If there are questions or concerns regarding this patient's physical therapy, please feel free to call me at [phone]. Thank you for the referral of this patient. Sincerely, Gaviota Gillespie, PT, Cert MDT
== END 2018-10-06 19:00 | disposition home or self-care (01) ==
LOC: PT 08:30
PROVIDERS: Family Provider Family Medicine; PCP Family Medicine
DX: M48.062 Spinal stenosis, lumbar region with neurogenic claudication (principal); E04.9 Nontoxic goiter, unspecified; E55.9 Vitamin D deficiency, unspecified
CPT/HCPCS: 36415; 80053; 82306; 97113; 97162; 97530

== ENCOUNTER → 2018-10-06 09:11 | Outpatient (CLI) | payer MEDICARE, OTHER, SELFPAY ==
[2018-10-06 12:39] LABS: AST(SGOT) 36 U/L (15-37); Alanine Aminotransfer ALT/SGPT 48 U/L (16-61); Albumin, Serum 3.6 g/dL (3.2-5.0); Alkaline Phosphatase 86 U/L (45-117); Anion Gap 4 (5-15); BUN 13 mg/dL (7-18); BUN/Creat Ratio 9.8 RATIO (10-20); Calcium,Total 8.6 mg/dL (8.5-10.1); Chloride 107 mmol/L (98-107); Creatinine, Serum 1.33 mg/dL (0.70-1.30); EST Glomerular Filtration Rate 57 mL/min (>60); Est Glom Filt Rate - Afr Amer 69 mL/min (>60); Globulin 3.6 g/dL (2.2-4.2); Glucose 161 mg/dL (74-106); Potassium 3.9 mmol/L (3.5-5.1); Protein, Total 7.2 g/dL (6.4-8.2); Sodium Level 138 mmol/L (136-145)
[2018-10-06 12:51] LABS: Vitamin D,25 Hydroxy 33.1 ng/mL (29.95-100.01)
== END ==
PROVIDERS: Family Provider Family Medicine; PCP Family Medicine; Referring Provider Internal Medicine Endocrinology, Diabetes & Metabolism; Visit Provider Internal Medicine Endocrinology, Diabetes & Metabolism
DX: E04.9 Nontoxic goiter, unspecified (principal); E55.9 Vitamin D deficiency, unspecified
CPT/HCPCS: 36415; 80053; 82306

== ENCOUNTER → 2018-12-23 08:49 | Outpatient (CLI) | payer MEDICARE, OTHER, SELFPAY ==
[2018-10-21 09:14] VITALS: BMI 35.9
[2018-12-23 10:12] LABS: PSA,Total - Annual Screen 0.73 ng/mL (0.00-4.00)
== END ==
PROVIDERS: Family Provider Family Medicine; PCP Family Medicine; Referring Provider Urology; Visit Provider Urology
DX: Z12.5 Encounter for screening for malignant neoplasm of prostate (principal)
CPT/HCPCS: 36415; 84153; G0103

== ENCOUNTER → 2019-01-13 10:40 | Outpatient (CLI) | payer MEDICARE, OTHER, SELFPAY ==
[2018-10-21 09:14] VITALS: BMI 35.9
[2019-01-13 11:17] LABS: Absolute Lymphocyte Count 1.85 X10^3/uL (0.83-4.51); Absolute Neutrophil Count 3.3 X10^3/uL (2.0-7.7); Basophil# 0.04 X10^3/uL; Basophil% 0.7 % (0-1); Eosinophil# 0.23 X10^3/uL; Eosinophils% 3.8 % (0-5); Hemoglobin 16.7 g/dL (13.0-16.5); Lymphocyte # 1.85 X10^3/ul (4.0); Lymphocyte % 30.3 % (19-41); Mean Corp Hgb Conc 32.7 g/dL (32-36); Mean Corpuscular Hgb 31.5 pg (27.0-32.0); Mean Corpuscular Volume 96.2 fL (80-94); Mean Platelet Vol. 10.3 fl (6.2-12.0); Monocyte# 0.67 X10^3/uL; NRBC Flagged by Analyzer 0 % (0-5); Platelet Count 171 K/mm3 (150-450); RBC Distribution Width CV 13.9 % (11.6-14.6); RBC Distribution Width SD 49.3 fl (35.1-43.9); White Blood Count 6.1 K/mm3 (4.4-11.0)
[2019-01-13 11:48] LABS: AST(SGOT) 44 U/L (15-37); Alanine Aminotransfer ALT/SGPT 54 U/L (16-61); Albumin, Serum 3.4 g/dL (3.2-5.0); Alkaline Phosphatase 83 U/L (45-117); Bilirubin, Direct 0.09 mg/dL (0.00-0.30); Globulin 3.7 g/dL (2.2-4.2); Protein, Total 7.1 g/dL (6.4-8.2)
== END ==
PROVIDERS: Family Provider Family Medicine; PCP Family Medicine; Referring Provider Dermatology; Visit Provider Dermatology
DX: Z79.899 Other long term (current) drug therapy (principal); L40.0 Psoriasis vulgaris; L40.8 Other psoriasis
CPT/HCPCS: 36415; 80076; 85025

== ENCOUNTER → 2019-01-21 | Outpatient (CLI) | payer MEDICARE, OTHER, SELFPAY ==
[2018-10-21 09:14] VITALS: BMI 35.9
[2019-01-21 11:04] LABS: Anion Gap 5 (5-15); BUN 13 mg/dL (7-18); Calcium,Total 9.3 mg/dL (8.5-10.1); Chloride 105 mmol/L (98-107); Cholesterol 184 mg/dL (200); EST Glomerular Filtration Rate 58 mL/min (>60); Est Glom Filt Rate - Afr Amer 70 mL/min (>60); Glucose 150 mg/dL (74-106); High Density Lipoprotein 54 mg/dL; Potassium 4.1 mmol/L (3.5-5.1); Sodium Level 138 mmol/L (136-145); Triglycerides 125 mg/dL; Very Low Density Lipoprotein 25 mg/dL (5-40)
== END | disposition home or self-care (01) ==
LOC: MFPLAB 08:48
PROVIDERS: Family Provider Family Medicine; PCP Family Medicine; Referring Provider Family Medicine; Visit Provider Family Medicine
DX: E11.9 Type 2 diabetes mellitus without complications (principal)
CPT/HCPCS: 36415; 80048; 80061

== ENCOUNTER 2019-02-08 11:14 | Emergency (ER) | payer MEDICARE, OTHER, SELFPAY ==
[2018-10-21 09:14] VITALS: BMI 35.9
[2019-02-08 11:15] VITALS: BP 139/82; PULSE 107; RESP 16; TEMP 37.2; O2SAT 92; BMI 34.8
[2019-02-08 11:42] LABS: Absolute Lymphocyte Count 1.99 X10^3/uL (0.83-4.51); Absolute Neutrophil Count 7.7 X10^3/uL (2.0-7.7); Basophil# 0.07 X10^3/uL; Basophil% 0.6 % (0-1); Eosinophil# 0.36 X10^3/uL; Eosinophils% 3.2 % (0-5); Lymphocyte # 1.99 X10^3/ul (4.0); Lymphocyte % 17.9 % (19-41); Mean Corpuscular Hgb 32.2 pg (27.0-32.0); Mean Corpuscular Volume 94.6 fL (80-94); Monocyte# 0.98 X10^3/uL; Monocyte% 8.8 % (0-10); NRBC Flagged by Analyzer 0 % (0-5); Neutrophil # 7.71 X10^3/uL (2.7-7.7); Neutrophil % 69.3 % (47-70); Platelet Count 208 K/mm3 (150-450); RBC Distribution Width CV 13.2 % (11.6-14.6); RBC Distribution Width SD 46.1 fl (35.1-43.9); Red Blood Count 6.09 M/mm3 (4.6-6.2); White Blood Count 11.1 K/mm3 (4.4-11.0)
[2019-02-08 11:47] LABS: Hematocrit 57.6 % (40-54); Hemoglobin 19.6 g/dL (13.0-16.5)
--- NOTE | 2019-02-08 11:49 | ED.RN ---
Angelia from lab called with critical Hgb of 19.6. RAMONA Leon notified.
--- NOTE | 2019-02-08 11:53 | ED.RN ---
Angelia from lab called with critical lab value Hgb 19.6. RAMONA Burris notified.
[2019-02-08 11:58] LABS: AST(SGOT) 50 U/L (15-37); Alanine Aminotransfer ALT/SGPT 69 U/L (16-61); Alkaline Phosphatase 101 U/L (45-117); Anion Gap 8 (5-15); BUN 17 mg/dL (7-18); Calcium,Total 9.6 mg/dL (8.5-10.1); Chloride 109 mmol/L (98-107); Creatinine, Serum 1.55 mg/dL (0.70-1.30); EST Glomerular Filtration Rate 48 mL/min (>60); Est Glom Filt Rate - Afr Amer 57 mL/min (>60); Estimated Creatinine Clearance 39.13 ml/min; Globulin 4.6 g/dL (2.2-4.2); Glucose 160 mg/dL (74-106); Lipase 113 U/L (73-393); Potassium 4.2 mmol/L (3.5-5.1); Protein, Total 8.6 g/dL (6.4-8.2); Sodium Level 139 mmol/L (136-145)
[2019-02-08] MEDS: 0.9% Normal Saline 1,000 ML 1000 ML IV (12:26)
[2019-02-08 12:34] LABS: Mucous, Urine 0 SEEN /hpf (<or=2+); Red Blood Cells-Urine 0 SEEN /hpf (0-5)
[2019-02-08 12:39] LABS: Color, Urine Yellow (Yellow); Glucose, Dipstick 1000 mg/dl (Normal); Ketone-Dipstick 5 mg/dl (Negative); Leukocyte Esterase-Dipstick 25 /ul (Negative); Nitrite-Dipstick Negative (Negative); Occult Blood-Urine 10 /ul (Negative); Protein-Dipstick 30 mg/dl (Negative); Urine Bilirubin Dipstick Negative (Negative); Urine Clarity Sl. Cloudy (Clear); Urine Urobilinogen Normal (Normal)
[2019-02-08 12:44] LABS: Bacteria RARE /hpf (None Seen); Fine Granular Cast- Urine 0-5 SEEN /lpf (0-5); Hyaline Cast 0-5 SEEN /lpf (0-5); Squamous Epithelial Cells - UA 0-5 SEEN /hpf (0-5); White Blood Cells 0-5 SEEN /hpf (0-5)
[2019-02-08 13:06] VITALS: BP 128/79; PULSE 97; RESP 16; O2SAT 96
[2019-02-08] MEDS: 0.9% Normal Saline 1,000 ML 125 ML IV (13:14)
--- NOTE | 2019-02-08 13:19 | ED.RN ---
Pt ambulates to bathroom without dizziness and steady gait.
--- NOTE | 2019-02-08 14:26 | CT_ITS ---
STUDY: CT ABDOMEN AND PELVIS WITHOUT CONTRAST REASON FOR EXAM: Male, 69 years old. Diarrhea for 3 days RADIATION DOSAGE (If Supplied By Facility): CTDIvol = ( 16.67 ) mGy, DLP = ( 903.82 ) mGycm TECHNIQUE: Transaxial images were obtained from the dome of the diaphragm to the symphysis pubis without oral contrast, and without intravenous contrast. Sagittal and coronal images were reconstructed. Individualized dose optimization techniques were used for this CT. COMPARISON: 06/06/2018 FINDINGS: The visualized lung bases are unremarkable. The visualized portions of the heart are within normal limits. There is decreased attenuation of the liver consistent with steatosis. Normal gallbladder and extrahepatic biliary system. Normal spleen. Normal pancreas. Normal bilateral adrenal glands. Nonobstructing calculus of the right kidney measures 2 mm on image 93. No hydronephrosis. Fluid-filled stomach, small bowel and proximal colon without demonstrated large or small bowel wall thickening. Mild distention of small bowel loops but no transition point. No periureteric or pericolonic fat stranding. Air-fluid level in the rectal vault identified. There are multiple colonic diverticula consistent with diverticulosis. The appendix is visualized and appears normal. There is scattered atherosclerotic calcification of the abdominal aorta, without a demonstrated aneurysm. Normal inferior vena cava. Normal retroperitoneum. Normal urinary bladder. Normal abdominal wall. Degenerative changes of the thoracolumbar spine with fusion hardware at L3-S1 with laminectomies. CT/Abdomen/Pelvis without Cont IMPRESSION: 1. Gastric, small bowel and colonic fluid suggesting gastroenteritis. No bowel obstruction seen. Electronically Signed: David Lund MD ([place]) at 15:08 EDT , Service support ,
--- NOTE | 2019-02-08 14:47 | ED.DCSUM_ITS ---
History of Present Illness <Kusum Warner - Last Filed: 02/08/19 14:47> Informant: Patient, Significant Other Onset: Days - 3 Context: Gradual Onset Timing: Intermittent Quality: cramping Location: abdomen Current Severity: Moderate Maximum Severity: Moderate Worsened by: food Relieved by: nothing Associated Symptoms: diarrhea Narrative: 69-year-old male presents with 3 days of diffuse abdominal cramping and diarrhea. No fevers. No melena or hematochezia. Recent travel to and from [place]. No recent antibiotic use. No difficulty urinating. No sick contacts. No vomiting. No history of abdominal surgery other than an umbilical hernia repair. History of C. difficile 13 years ago. Prior similar symptoms: No Recent Illness/Hospitalization: No <Amish Heller - Last Filed: 02/08/19 15:36> Chief Complaint: Abd Pain Past Medical History Smoking Status: Never smoker <Kusum Warner - Last Filed: 02/08/19 14:47> Prior records reviewed: Yes Past Medical History: - - Psoriasis on Humira Surgical History: - - Umbilical hernia <Amish Heller - Last Filed: 02/08/19 15:36> - Allergies and Home Meds Allergies/Adverse Reactions: Allergies acetaminophen [From Tylenol] Allergy (Verified 02/08/19 11:15) Anaphylaxis hydromorphone HCl [From Dilaudid] Allergy (Verified 02/08/19 11:15) Unknown Penicillins Allergy (Verified 02/08/19 11:15) Hives Primary Care Physician: Connor Kohli MD [Primary Care Provider] - Review of Systems All systems negative except as indicated General: Denies: Chills, Fever Gastrointestinal: Reports: Abdominal pain, Nausea, Diarrhea <PinaAmish - Last Filed: 02/08/19 15:36> Physical Exam Vital Signs/Narrative: Vital Signs Temp Pulse Resp BP Pulse Ox 02/08/19 13:06 97 16 128/79 H 96 02/08/19 11:15 98.9 F 107 H 16 139/82 H 92 <Safia Warnergonzaloolayinka - Last Filed: 02/08/19 14:47> Vital Signs/Narrative: Vital Signs Pulse Resp BP Pulse Ox 02/08/19 13:06 97 16 128/79 H 96 Inital Vital Signs reviewed: Yes General: Well nourished, Well developed, Obese Head: Normocephalic, Atraumatic Eyes: Perrl, EOMI ENT: Moist mucous membranes Neck: Supple, Nontender Cardiovascular: Regular rate, Regular rhythm Respiratory: No distress, CTA bilaterally, Chest nontender Abdomen: Soft, Nondistended, Normal bowel sounds, No masses, Tender. Negative for: Guarding, Rebound tenderness Back: Nontender, Normal Inspection Extremities: Nontender, No edema Skin: Normal color, No rash Neurological: Alert, Oriented x3 <Amish Heller - Last Filed: 02/08/19 15:36> Diagnostic/Tx/Re-eval - Medical Decision Making Patient was seen with Amish agree with history and physical as above presents with diarrhea copious since no antibiotics no exposures to food or tainted sick individuals prior colonoscopy have been negative able to eat and drink crampy abdominal pain with bowel movements only on exam his vital signs are unremarkable he is afebrile he has a soft abdomen no rebound guarding organomegaly upper lower extremity unremarkable the rest exam is unremarkable, at this time screening labs are obtained that are generally unremarkable CT is pending we will proceed with all the above work-up we received IV fluids C. difficile is negative we discussed admission with him he declined admission prefers to go home at this time we will continue his IV fluids he is taking ice chips cold liquids without difficulty if the CT shows nothing acute he will be discharged at his request to follow-up with his outpatient providers see the note for full details <Kusum Warner - Last Filed: 02/08/19 14:47> ED Disposition <Kusum Warner - Last Filed: 02/08/19 14:47> <Amish Heller - Last Filed: 02/08/19 15:36> - Plan for ED Patient: Disposition: Home or Assisted Living Diagnosis: Abdominal pain, Diarrhea Instructions: GASTROENTERITIS, Viral (6y-Adult) Prescriptions: Dicyclomine HCl [Bentyl] 20 mg PO TIDAC PRN #15 cap PRN Reason: Pain Prescription Printed Ondansetron [Zofran Odt] 4 mg PO Q8H PRN PRN #10 tab PRN Reason: Nausea Prescription Printed Referrals: Connor Kohli MD [Primary Care Provider] -
[2019-02-08] MEDS: Dicyclomine 10 MG Capsule 20 MG PO (15:04)
[2019-02-08 15:58] VITALS: BP 146/91; PULSE 105; RESP 16; O2SAT 94
[2019-02-11 09:10] LABS: Pathologist Review Reviewed
== END 2019-02-08 15:59 | disposition home or self-care (01) ==
PROVIDERS: Emergency Medicine; Emergency Provider Physician Assistant Medical; Family Provider Family Medicine; PCP Family Medicine
DX: R10.9 Unspecified abdominal pain (principal); R19.7 Diarrhea, unspecified
CPT/HCPCS: 74176; 80048; 80076; 81001; 83690; 85025; 87493; 87506; 96360; 96361; 99284; J7030; A4216

== ENCOUNTER → 2019-02-10 09:19 | Outpatient (CLI) | payer MEDICARE, OTHER, SELFPAY ==
[2019-02-08 11:15] VITALS: BMI 34.8
[2019-02-10 12:17] LABS: Absolute Lymphocyte Count 2.42 X10^3/uL (0.83-4.51); Absolute Neutrophil Count 6.5 X10^3/uL (2.0-7.7); Basophil# 0.06 X10^3/uL; Basophil% 0.6 % (0-1); Eosinophil# 0.61 X10^3/uL; Eosinophils% 5.7 % (0-5); Hematocrit 53.6 % (40-54); Hemoglobin 17.5 g/dL (13.0-16.5); Lymphocyte # 2.42 X10^3/ul (4.0); Lymphocyte % 22.7 % (19-41); Mean Corp Hgb Conc 32.6 g/dL (32-36); Mean Corpuscular Hgb 31.4 pg (27.0-32.0); Mean Corpuscular Volume 96.1 fL (80-94); Mean Platelet Vol. 10.7 fl (6.2-12.0); Monocyte# 1.11 X10^3/uL; Monocyte% 10.4 % (0-10); NRBC Flagged by Analyzer 0 % (0-5); Neutrophil # 6.45 X10^3/uL (2.7-7.7); Neutrophil % 60.3 % (47-70); Platelet Count 220 K/mm3 (150-450); RBC Distribution Width CV 13.3 % (11.6-14.6); RBC Distribution Width SD 47.4 fl (35.1-43.9); Red Blood Count 5.58 M/mm3 (4.6-6.2); White Blood Count 10.7 K/mm3 (4.4-11.0)
[2019-02-10 12:44] LABS: Anion Gap 8 (5-15); BUN 22 mg/dL (7-18); BUN/Creat Ratio 13.5 RATIO (10-20); Chloride 107 mmol/L (98-107); Creatinine, Serum 1.63 mg/dL (0.70-1.30); EST Glomerular Filtration Rate 45 mL/min (>60); Est Glom Filt Rate - Afr Amer 54 mL/min (>60); Ferritin 145 ng/mL (26-388); Glucose 144 mg/dL (74-106); Iron 86 ug/dL (65-175); Iron Binding Capacity,Total 378 ug/dL (250-450); Potassium 3.9 mmol/L (3.5-5.1); Sodium Level 135 mmol/L (136-145)
[2019-02-11 17:04] LABS: Transferrin 269 mg/dL (200-370)
== END ==
PROVIDERS: Family Provider Family Medicine; PCP Family Medicine; Referring Provider Family Medicine; Visit Provider Family Medicine
DX: D75.1 Secondary polycythemia (principal); R19.7 Diarrhea, unspecified; N18.9 Chronic kidney disease, unspecified
CPT/HCPCS: 36415; 80048; 82728; 83540; 83550; 83735; 84466; 85025

== ENCOUNTER → 2019-02-25 11:42 | Outpatient (CLI) | payer MEDICARE, OTHER, SELFPAY ==
[2019-02-08 11:15] VITALS: BMI 34.8
[2019-02-25 12:51] LABS: Hematocrit 45.9 % (40-54); Hemoglobin 15.1 g/dL (13.0-16.5); Mean Corp Hgb Conc 32.9 g/dL (32-36); Mean Corpuscular Volume 94.3 fL (80-94); Mean Platelet Vol. 10.3 fl (6.2-12.0); Platelet Count 209 K/mm3 (150-450); RBC Distribution Width CV 13.4 % (11.6-14.6); RBC Distribution Width SD 46.1 fl (35.1-43.9); Red Blood Count 4.87 M/mm3 (4.6-6.2); White Blood Count 6.9 K/mm3 (4.4-11.0)
[2019-02-25 13:13] LABS: Anion Gap 5 (5-15); BUN 11 mg/dL (7-18); BUN/Creat Ratio 8.6 RATIO (10-20); Calcium,Total 8.5 mg/dL (8.5-10.1); Chloride 111 mmol/L (98-107); Creatinine, Serum 1.28 mg/dL (0.70-1.30); EST Glomerular Filtration Rate 59 mL/min (>60); Est Glom Filt Rate - Afr Amer 72 mL/min (>60); Glucose 116 mg/dL (74-106); Potassium 3.6 mmol/L (3.5-5.1); Sodium Level 141 mmol/L (136-145)
== END ==
PROVIDERS: Family Provider Family Medicine; PCP Family Medicine
DX: D58.2 Other hemoglobinopathies (principal); R79.89 Other specified abnormal findings of blood chemistry
CPT/HCPCS: 36415; 80048; 85027

== ENCOUNTER → 2019-07-14 08:22 | Outpatient (CLI) | payer MEDICARE, OTHER, SELFPAY ==
[2019-07-14 10:10] LABS: Absolute Lymphocyte Count 2.54 X10^3/uL (0.83-4.51); Absolute Neutrophil Count 3.8 X10^3/uL (2.0-7.7); Basophil% 1.3 % (0-1); Eosinophil# 0.56 X10^3/uL; Eosinophils% 7.1 % (0-5); Hematocrit 51.6 % (40-54); Lymphocyte # 2.54 X10^3/ul (4.0); Lymphocyte % 32.2 % (19-41); Mean Corp Hgb Conc 32.9 g/dL (32-36); Mean Corpuscular Hgb 31.7 pg (27.0-32.0); Mean Corpuscular Volume 96.3 fL (80-94); Mean Platelet Vol. 10.1 fl (6.2-12.0); Monocyte# 0.87 X10^3/uL; NRBC Flagged by Analyzer 0 % (0-5); Neutrophil # 3.79 X10^3/uL (2.7-7.7); Platelet Count 198 K/mm3 (150-450); RBC Distribution Width CV 12.8 % (11.6-14.6); RBC Distribution Width SD 45.7 fl (35.1-43.9); Red Blood Count 5.36 M/mm3 (4.6-6.2); White Blood Count 7.9 K/mm3 (4.4-11.0)
[2019-07-14 10:31] LABS: AST(SGOT) 25 U/L (15-37); Alanine Aminotransfer ALT/SGPT 39 U/L (16-61); Albumin, Serum 3.4 g/dL (3.2-5.0); Alkaline Phosphatase 77 U/L (45-117); Bilirubin, Direct 0.15 mg/dL (0.00-0.30); Globulin 3.9 g/dL (2.2-4.2); Protein, Total 7.3 g/dL (6.4-8.2)
[2019-07-14 10:33] LABS: Anion Gap 5 (5-15); BUN 11 mg/dL (7-18); BUN/Creat Ratio 8.1 RATIO (10-20); Calcium,Total 9.1 mg/dL (8.5-10.1); Chloride 105 mmol/L (98-107); Cholesterol 175 mg/dL (200); Creatinine, Serum 1.36 mg/dL (0.70-1.30); EST Glomerular Filtration Rate 55 mL/min (>60); Est Glom Filt Rate - Afr Amer 67 mL/min (>60); Glucose 158 mg/dL (74-106); High Density Lipoprotein 49 mg/dL; Potassium 3.9 mmol/L (3.5-5.1); Sodium Level 139 mmol/L (136-145); Triglycerides 109 mg/dL; Very Low Density Lipoprotein 22 mg/dL (5-40)
[2019-07-17 03:07] LABS: QNTFERON TB Mitogen Value > 10.00 IU/mL (.); QNTFERON TB1+ Ag Value 0.08 IU/mL (.); QNTFERON TB2+ Ag Value 0.12 IU/mL (.)
[2019-07-17 13:16] LABS: QNTIFERON TB Positive Criteria Negative (Negative)
== END ==
LOC: MTLAB 08:24
PROVIDERS: Dermatology; PCP Family Medicine; Referring Provider Family Medicine; Visit Provider Family Medicine
DX: E11.9 Type 2 diabetes mellitus without complications (principal); L40.0 Psoriasis vulgaris; L40.8 Other psoriasis; Z79.899 Other long term (current) drug therapy
CPT/HCPCS: 36415; 80048; 80061; 80076; 85025; 86480

== ENCOUNTER → 2019-12-09 06:54 | Outpatient (CLI) | payer MEDICARE, OTHER, SELFPAY ==
[2019-09-28 10:28] VITALS: BMI 34.2
--- NOTE | 2019-12-09 07:53 | STRESSREP ---
Stress Test Report Date: Procedure: Exercise tolerance test/imaging study Indications: Chest pain; CAD; PCI Consent: Per the patient Procedure: The patient exercised on a Homar protocol for 6 minutes completing Stage II achieving a peak heart rate of 142 bpm (94 % predicted maximal heart rate) with a peak blood pressure 180/82 mmHg and a peak MET capacity of 7 METs. The baseline ECG demonstrated sinus rhythm/sinus tachycardia. The peak exercise ECG demonstrated somatic/motion artifact with no obvious ECG changes. There were no cardiac dysrhythmias pretest, during exercise, or recovery. The functional capacity was considered average. There was no complaint of chest discomfort during exercise or recovery. The examination was discontinued secondary to dyspnea. Impression: 1. Technically adequate (percent predicted maximal heart rate greater than 85%) exercise tolerance test 2. Peak exercise ECG with somatic/motion artifact with no obvious ECG changes 3. There were no cardiac dysrhythmias pretest, during exercise, or recovery 4. Nuclear images pending Myocardial perfusion imaging study: Technique: The patient was injected with 15.0 mCi of technetium 99m Cardiolite and subsequently rest SPECT Cardiolite nuclear imaging was obtained in the horizontal long, vertical long, and short axis views. The patient exercised on a Homar protocol for 6 minutes completing Stage II achieving a peak heart rate of 142 bpm (94 % predicted maximal heart rate) with a peak blood pressure 180/82 mmHg and a peak MET capacity of 7 METs. The patient was injected with 45.0 mCi of technetium 99m Cardiolite and subsequently stress SPECT Cardiolite nuclear imaging was obtained in the horizontal long, vertical long, and short axis views. A gated Cardiolite study at peak stress was obtained. Interpretation: Rest and stress SPECT Cardiolite nuclear imaging status post realignment, normalization, and attenuation correction, demonstrates the appearance of a small area of subtle diminished tracer uptake near the apical segments without significant change between rest and stress. There is end systolic thickening and brightening. The gated Cardiolite study demonstrates myocardial thickening and inward wall motion. The reported LVEF is 79 %. Impression: 1. Rest and stress SPECT Cardiolite nuclear imaging demonstrate myocardial perfusion changes appearing compatible with physiologic apical thinning with no myocardial perfusion changes considered diagnostic for associated stress-induced myocardial ischemia. 2. The gated Cardiolite study reports an LVEF of 79 %. This note was generated with [employer] software. It may contain incorrect words, spelling, and punctuation that were not noted in checking the note before signing.
== END ==
PROVIDERS: PCP Family Medicine; Referring Provider Internal Medicine Cardiovascular Disease; Visit Provider Internal Medicine Cardiovascular Disease
DX: I25.10 Atherosclerotic heart disease of native coronary artery without angina pectoris (principal); Z95.5 Presence of coronary angioplasty implant and graft; R07.2 Precordial pain; E78.00 Pure hypercholesterolemia, unspecified; I10 Essential (primary) hypertension; I48.0 Paroxysmal atrial fibrillation; R55 Syncope and collapse
CPT/HCPCS: 78452; 93017; A9500; A4216

== ENCOUNTER 2019-12-28 15:59 | Inpatient (IN) | payer MEDICARE, OTHER, SELFPAY ==
[2019-09-28 10:28] VITALS: BMI 34.2
[2019-12-28] VITALS (8 sets, daily range): BP systolic 96–146; BP diastolic 57–73; PULSE 58–119; RESP 16–31; TEMP 36.9–37.4; O2SAT 91–98; BMI 34.1; BMI 34.5
--- NOTE | 2019-12-28 16:22 | ED.DCSUM_ITS ---
History of Present Illness Chief Complaint: Shortness of Breath Informant: Patient, Family Onset: Days - 8 Current Severity: Moderate Maximum Severity: Moderate Narrative: 69-year-old male presents with cough and shortness of breath. He states that his symptoms started 8 days ago. He started to have fevers of 102.5. His temperature has waxed and waned throughout the week. He states that he was put on a Z-Trey on Saturday. He was tested for COVID?19 on Saturday. The results have not come back. He still been having fevers, cough, shortness of breath even after finishing the Z-Trey. He has a painful cough but denies chest pain otherwise. Past Medical History - Allergies and Home Meds Allergies/Adverse Reactions: Allergies acetaminophen [From Tylenol] Allergy (Verified 12/28/19 16:00) Anaphylaxis hydromorphone HCl [From Dilaudid] Allergy (Verified 12/28/19 16:00) Unknown Penicillins Allergy (Verified 12/28/19 16:00) Hives Surgical History: - - Umbilical hernia Smoking Status: Never smoker - Family History Maternal Family History: Family History (Last Reviewed 09/28/19 @ 10:35 by Rylee Kulkarni) Mother CAD (coronary artery disease) Sister CAD (coronary artery disease) Father Heart disease Review of Systems General: Reports: Chills, Fever Eyes: Denies: Visual changes - bilaterally, Diplopia ENT: Denies: Rhinorrhea, Sore throat Cardiovascular: Denies: Chest pain, Palpitations Respiratory: Reports: Dyspnea, Cough Gastrointestinal: Denies: Abdominal pain, Nausea, Vomiting Genitourinary: Denies: Dysuria Musculoskeletal: Reports: Myalgias Skin: Denies: Rash, Abscess Neurological: Denies: Headache Endocrine: Denies: Polyuria Allergy: Denies: Uticaria Physical Exam Vital Signs/Narrative: Vital Signs Temp Pulse Resp BP Pulse Ox 12/28/19 16:01 99.3 F H 96 17 118/62 92 General: Obese, No Acute Distress Head: Normocephalic, Atraumatic Eyes: Perrl, EOMI ENT: Dry mucous membranes Neck: Supple, Nontender Cardiovascular: Regular rate, Regular rhythm Respiratory: No distress, Diminished Abdomen: Soft Back: Nontender Extremities: Nontender Skin: Normal color, No rash Neurological: Alert, Oriented x3 Psychological: Normal affect Diagnostic/Tx/Re-eval Clinical Impression(s) from Imaging Studies Chest X-Ray 12/28/19 16:53 IMPRESSION: Findings suggestive of Covid 19 pneumonia. Clinical correlation recommended Electronically Signed: Paco Whitfield MD at 18:13 EDT , Service support , Laboratory Data 12/28/19 12/28/19 12/28/19 16:42 16:50 16:50 WBC 7.7 RBC 4.99 Hgb 16.1 Hct 47.4 MCV 95.0 H MCH 32.3 H MCHC 34.0 RDW Std Deviation 44.8 H RDW Coeff of Stacy 12.9 Plt Count 200 MPV 10.2 Immature Gran % (Auto) 0.400 Neut % (Auto) 67.8 Lymph % (Auto) 16.0 L [place] % (Auto) 15.7 H Eos % (Auto) 0.1 Baso % (Auto) 0.0 Absolute Neuts (auto) 5.2 Absolute Lymphs (auto) 1.23 Nucleated RBC % 0 PT INR D-Dimer Quant (PE/DVT) 0.56 H* Sodium Potassium Chloride Carbon Dioxide Anion Gap BUN Creatinine Estim Creat Clear Calc Est GFR (MDRD) Af Amer Est GFR (MDRD) Non-Af BUN/Creatinine Ratio Glucose Lactic Acid Calcium Total Bilirubin Direct Bilirubin AST ALT Alkaline Phosphatase Troponin I C-React Prot Ext Range B-Natriuretic Peptide Total Protein Albumin Globulin Albumin/Globulin Ratio Procalcitonin COVID-19 (JIHAN) Detected 12/28/19 12/28/19 12/28/19 16:50 16:50 16:50 WBC RBC Hgb Hct MCV MCH MCHC RDW Std Deviation RDW Coeff of Stacy Plt Count MPV Immature Gran % (Auto) Neut % (Auto) Lymph % (Auto) [place] % (Auto) Eos % (Auto) Baso % (Auto) Absolute Neuts (auto) Absolute Lymphs (auto) Nucleated RBC % PT INR D-Dimer Quant (PE/DVT) Sodium 136 Potassium 4.2 Chloride 107 Carbon Dioxide 21.0 Anion Gap 8 BUN 23 H Creatinine 1.31 H Estim Creat Clear Calc 46.29 Est GFR (MDRD) Af Amer 70 Est GFR (MDRD) Non-Af 58 L BUN/Creatinine Ratio 17.6 Glucose 131 H Lactic Acid 1.4 Calcium 8.6 Total Bilirubin 0.70 Direct Bilirubin AST 66 H ALT 57 Alkaline Phosphatase 86 Troponin I < 0.015 C-React Prot Ext Range 80.10 H B-Natriuretic Peptide 18.4 Total Protein 8.1 Albumin 3.3 Globulin 4.8 H Albumin/Globulin Ratio 0.7 L Procalcitonin COVID-19 (JIHAN) 12/28/19 12/28/19 12/28/19 16:50 16:50 16:50 WBC RBC Hgb Hct MCV MCH MCHC RDW Std Deviation RDW Coeff of Stacy Plt Count MPV Immature Gran % (Auto) Neut % (Auto) Lymph % (Auto) [place] % (Auto) Eos % (Auto) Baso % (Auto) Absolute Neuts (auto) Absolute Lymphs (auto) Nucleated RBC % PT 12.7 INR 1.0 D-Dimer Quant (PE/DVT) Sodium Potassium Chloride Carbon Dioxide Anion Gap BUN Creatinine Estim Creat Clear Calc Est GFR (MDRD) Af Amer Est GFR (MDRD) Non-Af BUN/Creatinine Ratio Glucose Lactic Acid Calcium Total Bilirubin 0.70 Direct Bilirubin 0.29 AST 68 H ALT 60 Alkaline Phosphatase 87 Troponin I C-React Prot Ext Range B-Natriuretic Peptide Total Protein 8.2 Albumin 3.3 Globulin 4.9 H Albumin/Globulin Ratio Procalcitonin 0.05 COVID-19 (JIHAN) - Rhythm Strip Rhythm Strip: Sinus Rhythm Rate: 104 Ectopy: None - Medical Decision Making Patient presented with worsening symptoms after 8 days of fever and cough. He h ad already been on a Z-Trey. He was tested for COVID and the test had not returned. He states he feels more short of breath although he is not hypoxic. He does have a lot of health risk factors. His chest x-ray is consistent with bilateral pneumonia, which was also consistent with a COVID pattern. His blood work is consistent with COVID?19 as well. Troponin is negative. D-dimer age- adjusted is negative. Given his symptoms, age, medical problems I felt it was necessary to admit him to the hospital. Was discussed with the hospitalist who agreed. Patient will be admitted to the hospital for monitoring. She requested Levaquin to be started in the ED. ED Disposition - Plan for ED Patient: Disposition: Acute Care Hospital [facility]
--- NOTE | 2019-12-28 16:24 | EKG12_ITS ---
Test Reason : SOB Blood Pressure : / mmHG Vent. Rate : 104 BPM Atrial Rate : 104 BPM P-R Int : 132 ms QRS Dur : 084 ms QT Int : 336 ms P-R-T Axes : 023 055 029 degrees QTc Int : 441 ms Sinus tachycardia Consider Low Voltage QRS Poor R wave progression Confirmed by GELY MAY, ARMANDO ([id number]), image editor TITI NORTH ([id number]) on 12/30/2019 1:15:14 PM Referred By: DANYEL Confirmed By:ARMANDO HONG MD
--- NOTE | 2019-12-28 16:53 | RAD_ITS ---
STUDY: X-RAY CHEST REASON FOR EXAM: Male, 69 years old. PT C/O COUGH, SOB, LOSS OF TASTE WITH SYMPTOMS STARTING OVER A WEEK AGO. TECHNIQUE: AP portable COMPARISON: October 04, 2017 FINDINGS: Less than optimal inspiratory effort is seen. There is prominence of the interstitial markings in both lower lobes more pronounced on the left with patchy areas of groundglass opacity in both lower lobes also greater on the left suspicious for Covid 19 pneumonia... There is no demonstrated pleural abnormality. Normal size heart. Normal mediastinum and natalia. Normal visualized pulmonary arteries. Normal visualized aortic arch and descending thoracic aorta. Dorsal spine demonstrates degenerative change. Normal visualized ribs, clavicles, and shoulders. There is no demonstrated abnormality of the visualized soft tissue structures of the upper abdomen. RAD/Chest 1 View (Portable) IMPRESSION: Findings suggestive of Covid 19 pneumonia. Clinical correlation recommended Electronically Signed: Paco Whitfield MD at 18:13 EDT , Service support ,
[2019-12-28 17:21] LABS: Absolute Lymphocyte Count 1.23 X10^3/uL (0.83-4.51); Absolute Neutrophil Count 5.2 X10^3/uL (2.0-7.7); Eosinophil# 0.01 X10^3/uL; Eosinophils% 0.1 % (0-5); Hematocrit 47.4 % (40-54); Hemoglobin 16.1 g/dL (13.0-16.5); Lymphocyte # 1.23 X10^3/ul (4.0); Mean Corpuscular Hgb 32.3 pg (27.0-32.0); Mean Platelet Vol. 10.2 fl (6.2-12.0); Monocyte# 1.21 X10^3/uL; Monocyte% 15.7 % (0-10); NRBC Flagged by Analyzer 0 % (0-5); Neutrophil # 5.21 X10^3/uL (2.7-7.7); Neutrophil % 67.8 % (47-70); Platelet Count 200 K/mm3 (150-450); RBC Distribution Width CV 12.9 % (11.6-14.6); RBC Distribution Width SD 44.8 fl (35.1-43.9); Red Blood Count 4.99 M/mm3 (4.6-6.2); White Blood Count 7.7 K/mm3 (4.4-11.0)
[2019-12-28 17:35] LABS: D-Dimer Quantitative (DVT/PE) 0.56 FEU/ug/m (0.27-0.49)
[2019-12-28 17:38] LABS: BNP,B-Type NATRIURETIC PEPTIDE 18.4 pg/mL (0-100)
[2019-12-28 17:44] LABS: ALB/GLOB Ratio 0.7 RATIO (0.9-2.4); AST(SGOT) 66 U/L (15-37); Alanine Aminotransfer ALT/SGPT 57 U/L (16-61); Albumin, Serum 3.3 g/dL (3.2-5.0); Alkaline Phosphatase 86 U/L (45-117); Anion Gap 8 (5-15); BUN 23 mg/dL (7-18); BUN/Creat Ratio 17.6 RATIO (10-20); Calcium,Total 8.6 mg/dL (8.5-10.1); Chloride 107 mmol/L (98-107); Creatinine, Serum 1.31 mg/dL (0.70-1.30); EST Glomerular Filtration Rate 58 mL/min (>60); Est Glom Filt Rate - Afr Amer 70 mL/min (>60); Estimated Creatinine Clearance 46.29 ml/min; Globulin 4.8 g/dL (2.2-4.2); Glucose 131 mg/dL (74-106); Potassium 4.2 mmol/L (3.5-5.1); Protein, Total 8.1 g/dL (6.4-8.2); Sodium Level 136 mmol/L (136-145)
[2019-12-28 17:49] LABS: Procalcitonin 0.05 ng/mL (0.00-0.09)
[2019-12-28 17:59] LABS: Lactic Acid 1.4 mmol/L (0.4-1.9)
--- NOTE | 2019-12-28 18:34 | PCM.HP.STD ---
History of Present Illness Date of Admission: 12/28/19 Chief Complaint: fever, cough, shortness of breath The patient is a 69 year old M with a PMH as outlined who was admitted with a complaint of fever, productive cough and shortness of breath. Symptoms have been going on for about 1 week prior to his admission. He states he started having a fever and also started coughing. He thinks cough was productive but he was swallowing the sputum so she could not tell what color it was. He also had assisted shortness of breath which gradually worsened. He went to see his PCP he says he had COVID test done about a week ago but he was never called about the results and so does not know whether it was positive or not. His symptoms gradually worsened to the point where his shortness of breath was very severe so he decided to come into the ED today. His has had similar symptoms and she thinks that she likely had COVID to go she has not been tested and is feeling better. On admission, vitals were significant for temperature of 99.2 Fahrenheit, blood pressure 123/73, pulse rate of 112 respiratory of 21. He was saturating at 93% on room air. Chemistry showed creatinine of 1.31 with sodium of 136 and potassium of 4.2. Initial troponin was negative. CRP was 80. BC showed WBC of 7.7 with mild lymphopenia of 16% and hemoglobin of 16.1 with platelets of 200. D-dimer was elevated at 0.56. Test was done in the ED and pending. Checks x-ray showed findings suggestive of COVID-19 pneumonia. He has been admitted to be managed for sepsis due to community-acquired pneumonia, likely COVID-19 pneumonia. [] Past Medical History Past Medical History (Chronic Problems): Chronic Problems (Last Reviewed 09/28/19 @ 10:35 by Rylee Kulkarni) Presence of stent in coronary artery (Chronic ~04/30/13) PTCA with KEYANA of proximal 3rd marginal artery 04/30/13 Pure hypercholesterolemia (Chronic) Essential hypertension (Chronic) Claudication in peripheral vascular disease (Chronic) Left ventricular hypertrophy (Chronic) Paroxysmal atrial fibrillation (Chronic) 04/29 Loop recorder; Loop recorder removed 10/15/16; Atherosclerotic heart disease of [place] coronary artery without angina pectoris (Chronic) Medical History: Medical History (Last Reviewed 09/28/19 @ 10:35 by Rylee Kulkarni) Presence of stent in coronary artery (Chronic) Onset Date: ~04/30/13 Z95.5 PTCA with KEYANA of proximal 3rd marginal artery 04/30/13 Pure hypercholesterolemia (Chronic) E78.00 Essential hypertension (Chronic) I10 Claudication in peripheral vascular disease (Chronic) I73.9 Left ventricular hypertrophy (Chronic) I51.7 Paroxysmal atrial fibrillation (Chronic) I48.0 04/29 Loop recorder; Loop recorder removed 10/15/16; Atherosclerotic heart disease of [place] coronary artery without angina pectoris (Chronic) I25.10 Diabetes E11.9 Allergies acetaminophen [From Tylenol] Allergy (Verified 12/28/19 16:00) Anaphylaxis hydromorphone HCl [From Dilaudid] Allergy (Verified 12/28/19 16:00) Unknown Penicillins Allergy (Verified 12/28/19 16:00) Hives Home Medications: Ambulatory Orders Medication Instructions Recorded Aspirin [Aspirin, Baby] 81 mg PO QHS 04/23/13 Nortriptyline HCl [Pamelor] 25 mg PO QHS 04/23/13 Pantoprazole Sodium [Protonix] 40 mg PO DAILY 04/23/13 Tamsulosin HCl [Flomax] 0.4 mg PO QHS 04/23/13 Finasteride [Proscar] 5 mg PO DAILY 10/12/16 cholecalciferol (vitamin D3) 25 5,000 unit PO DAILY 05/05/18 mcg (1,000 unit) capsule adalimumab 10 mg/0.2 mL 40 mg SC Q2W 10/21/18 subcutaneous syringe kit clopidogrel 75 mg tablet 75 mg PO QHS #90 tab 04/22/19 cilostazol 100 mg tablet 100 mg PO BID #180 tab 06/23/19 metoprolol tartrate 50 mg tablet 75 mg PO BID #270 tab 06/23/19 lisinopril 20 mg tablet 20 mg PO DAILY #90 tab 07/13/19 glimepiride 1 mg tablet 1 mg PO DAILY 09/28/19 nitroglycerin 0.4 mg sublingual 0.4 mg SUBLINGUAL ONCE #90 tab 09/28/19 tablet oxybutynin chloride 10 mg 10 mg PO DAILY 09/28/19 tablet,extended release 24 hr ezetimibe 10 mg tablet 10 mg PO QHS #90 tab 12/22/19 Surgical History: Surgical History (Last Reviewed 09/28/19 @ 10:35 by Rylee Kulkarni) Presence of coronary angioplasty implant and graft Onset Date: ~04/30/13 Z95.5 PTCA with KEYANA of proximal 3rd marginal artery 13; History of lumbar surgery Z98.890 History of resection of meningioma Z98.890 Hx of cataract surgery Z98.49 Surgical History: - - Umbilical hernia Psychiatric History: No pertinent psych hx Lives: Spouse/ Significant Other Smoking Status: Never smoker Tobacco Use: Non-smoker Alcohol: None Drugs: None - *Family History Maternal Family History: Family History (Last Reviewed 09/28/19 @ 10:35 by Rylee Kulkarni) Mother CAD (coronary artery disease) Sister CAD (coronary artery disease) Father Heart disease Review of Systems Constitutional: Reports: Chills, Fever, Malaise, Weakness, Fatigue. Denies: Weight Change Eyes: Denies: Blurred vision HEENT: Denies: Head Aches, Sinus Congestion, Sinus Drainage Cardiovascular: Denies: Chest Pain, Palpitations Respiratory: Reports: Cough, Shortness of Breath, Shortness of breath at rest, Shortness of breath upon exertion, Sputum production. Denies: Wheezing Gastrointestinal: Denies: Abdominal Pain, Nausea, Vomiting Genitourinary: Denies: Dysuria Musculoskeletal: Denies: Joint Pain, Joint Tenderness Skin: Denies: Rash, Wounds Neurological: Denies: Numbness, Tingling, Focal weakness Psychiatric: Denies: Anxiety, Depression, Homicidal Ideations, Suicidal Ideations Hematologic/ Lymphatic: Denies: Easy Bruising, Easy Bleeding VTE Information - Inpt Only VTE Present on Admission: No VTE Pharm Prophylaxis ordered?: Yes - Physical Exam Vitals/I&O's: Vital Signs Temp Pulse Resp BP Pulse Ox 99.3 F H 98 17 118/62 92 12/28/19 16:01 12/28/19 16:01 12/28/19 16:01 12/28/19 16:01 12/28/19 16:01 Oxygen Delivery Method Room Air Weight: 205 lb Body Mass Index (BMI) 34.1 General: Alert, Oriented x3, Cooperative, No apparent distress, Lethargic HEENT: Atraumatic, PERRLA, EOMI, Normocephalic Oral: Dry Mucosa Neck: Supple, No JVD, Negative Carotid Bruits Lungs: - - decreased breath sounds in mid and lower lung price bibasally, no wheezes. few crackles bibasally. On room air. Cardiovascular: Normal S1, Normal S2, No murmurs, Tachycardic Abdomen: Bowel Sounds Present, Soft, Non Tender, Non-Distended, No Hepato-splenomegaly Extremities: No clubbing, No cyanosis, No edema, Capillary Refill Less than 3 Seconds Skin: No rashes, No breakdown Musculoskeletal: No Tenderness to Palpation of Joints or Extremities Lymphatic: No Cervical, Supraclavicular, or Inguinal Adenopathy Neurological: Cranial nerves II-XII grossly intact, Neuro grossly intact, Motor Exam 5/5 strength throughout Psych/Mental Status: Normal Affect, Appropriate, Alert and oriented to time, place, person, mood and affect Laboratory Results 12/28/19 16:42: COVID-19 (JIHAN) Pending 12/28/19 16:50: WBC 7.7, RBC 4.99, Hgb 16.1, Hct 47.4, MCV 95.0 H, MCH 32.3 H, MCHC 34.0, RDW Std Deviation 44.8 H, RDW Coeff of [place]acy 12.9, Plt Count 200, MPV 10.2, Immature Gran % (Auto) 0.400, Neut % (Auto) 67.8, Lymph % (Auto) 16.0 L, [place] % (Auto) 15.7 H, Eos % (Auto) 0.1, Baso % (Auto) 0.0, Absolute Neuts (auto) 5.2, Absolute Lymphs (auto) 1.23, Nucleated RBC % 0 12/28/19 16:50: D-Dimer Quant (PE/DVT) 0.56 H* 12/28/19 16:50: Sodium 136, Potassium 4.2, Chloride 107, Carbon Dioxide 21.0, Anion Gap 8, BUN 23 H, Creatinine 1.31 H, Estim Creat Clear Calc 46.29, Est GFR (MDRD) Af Amer 70, Est GFR (MDRD) Non-Af 58 L, BUN/Creatinine Ratio 17.6, Glucose 131 H, Calcium 8.6, Total Bilirubin 0.70, AST 66 H, ALT 57, Alkaline Phosphatase 86, Troponin I < 0.015, C-React Prot Ext Range 80.10 H, Total Protein 8.1, Albumin 3.3, Globulin 4.8 H, Albumin/Globulin Ratio 0.7 L 12/28/19 16:50: Lactic Acid 1.4 12/28/19 16:50: B-Natriuretic Peptide 18.4 12/28/19 16:50: Procalcitonin 0.05 Diagnostic Data Chest X-Ray 12/28/19 16:53 IMPRESSION: Findings suggestive of Covid 19 pneumonia. Clinical correlation recommended Electronically Signed: Paco Whitfield MD at 18:13 EDT , Service support , Assessment/Plan 69 y/o admitted with a complaint of shortness of breath, fever and cough 1. Sepsis due to community acquired pneumonia, probably COVID pneumonia admit to Covid floor hydrate with IVF NS @ 150cc/hr D dimer is elevated, will start on therapeutic anticoagulation start on IV levofloxacin and IV vancomycin; patient allergic to penicillins, so unable to give zosyn or cefepime consult ID and pulmonology give breathing treatment with duonebs get CTA of chest o/a of elevated D dimer titrate oxygen to maintain sats>90% 2.paroxysmal afib: on metoprolol. Not on any anticoagulation, reason is not clear 3. CAD s/p stents: on aspirin, ezetimibe, and lisinopril as well as plavix 4. Hyperlipidemia: on ezetimibe 5. Diabetes mellitus: on glimepiride. ISS. Accuchecks ACHS 6. PAD: on ciloztazol 7. Hypertension: on on metoprolol and lisinopril DVT prophylaxis: lovenox Code status; full code Patient counseled extensively about different types of CODE STATUS including full code, DNR CCA and DNR CCA. Patient elects to be full code. Total oxkf-hi-hagp time 16 minutes. Inpatient E&M: 01069 Init Hosp L3 Procedures: 51069 Advncd Care Plan 30 Min
[2019-12-28] MEDS: levoFLOXacin IV 500 MG/100 ML BAG 100 MG IV (19:05)
--- NOTE | 2019-12-28 19:54 | CT_ITS ---
STUDY: CTA CHEST REASON FOR EXAM: Male, 69 years old. PT STATED COUGH, SHORT OF BREATH, ELEVATED DDIMER RADIATION DOSAGE (If Supplied By Facility): CTDIvol = ( 10.18 ) mGy, DLP = ( 562.88 ) mGycm TECHNIQUE: The examination was performed with the intravenous administration of 100ML ISOVUE 370. Post-processing of the angiographic images was performed, with multiplanar reformation and 3D reconstruction. Individualized dose optimization techniques were used for this CT. COMPARISON: None. FINDINGS: Normal enhancement of the main pulmonary artery and right and left pulmonary arteries. The interlobar segmental and proximal to mid subsegmental vessels are well opacified and there is no evidence for intraluminal clot. The more distal subsegmental vessels are not as well visualized although there is no definitive evidence for clot.. Normal thoracic aorta and visualized great vessels. There is no demonstrated aortic dissection. The heart is normal size with multivessel coronary artery calcification. Normal mediastinum. Normal hilar regions. Normal visualized trachea and bronchi. The lungs are well expanded. Mild chronic interstitial thickening in the lower lobes. There are multifocal peripheral areas of groundglass opacity in both upper and lower lobes which may be consistent with Covid 19 pneumonia Normal pleura. Normal chest wall structures. Dorsal spine demonstrates moderate spondylosis Nonspecific fatty infiltration of the liver. CT/CTA Chest W/WO Contrast IMPRESSION: Findings consistent with diffuse bilateral Covid 19 pneumonia more pronounced in the lower lobes.. No definitive evidence for pulmonary embolus Electronically Signed: Paco Whitfield MD at 20:53 EDT , Service support ,
[2019-12-28 21:31] LABS: Prothrombin Time (Protime)PT. 12.7 SECONDS (11.7-14.9)
[2019-12-28 21:37] LABS: AST(SGOT) 68 U/L (15-37); Alanine Aminotransfer ALT/SGPT 60 U/L (16-61); Albumin, Serum 3.3 g/dL (3.2-5.0); Alkaline Phosphatase 87 U/L (45-117); Bilirubin, Direct 0.29 mg/dL (0.00-0.30); Globulin 4.9 g/dL (2.2-4.2); Protein, Total 8.2 g/dL (6.4-8.2)
[2019-12-28] MEDS: 0.9% Saline Lock 10 ML Syringe IV (21:49)
[2019-12-28] MEDS: 0.9% Normal Saline 1,000 ML 150 ML IV (21:49)
[2019-12-28] MEDS: Ibuprofen 600 MG Tablet PO (21:50)
[2019-12-28] MEDS: Enoxaparin 100 MG/ML Syringe 90 MG SC (21:50)
--- NOTE | 2019-12-28 22:43 | PCM.RX.CS ---
Consult Pharmacy has been consulted to manage selected antiobiotic: Vancomycin Type of Consult: New start Suspected Infection: Sepsis, Pneumonia Prior Doses of Antibiotics Received/Current Regimen: Medications Vancomycin HCl 750 mg/ Sodium (Chloride) 265 mls @ 250 mls/hr IV Q12H NIKI Vancomycin HCl 2,000 mg/ (Sodium Chloride) 540 mls @ 250 mls/hr IV X1 ONE Stop: 12/29/19 00:09 Last Admin: 12/28/19 22:18 Dose: 250 mls/hr Labs: Sodium 136 mmol/L (136-145) 12/28/19 16:50 Potassium 4.2 mmol/L (3.5-5.1) 12/28/19 16:50 Chloride 107 mmol/L (98-107) 12/28/19 16:50 Carbon Dioxide 21.0 mmol/L (21.0-32.0) 12/28/19 16:50 Anion Gap 8 (5-15) 12/28/19 16:50 BUN 23 mg/dL (7-18) H 12/28/19 16:50 Creatinine 1.31 mg/dL (0.70-1.30) H 12/28/19 16:50 Est GFR (MDRD) Af Amer 70 mL/min (>60) 12/28/19 16:50 Est GFR (MDRD) Non-Af 58 mL/min (>60) L 12/28/19 16:50 BUN/Creatinine Ratio 17.6 RATIO (10-20) 12/28/19 16:50 Glucose 131 mg/dL (74-106) H 12/28/19 16:50 Microbiology: Microbiology 12/28/19 18:40 Urine, Clean Catch Streptococcus pneumoniae Antigen (M - Final 12/28/19 18:40 Urine, Clean Catch Legionella Antigen - Final Weight used for dosin.1 kg Estimated Creatinine Clearance: 46.3 Goal Trough: 15-20 mcg/mL Pharmacy Plan for Drug Dosing: Pharmacy Service will continue to monitor and adjust dosing as required. Follow-Up Labs: Trough Vancomycin Labs to be done on [date and time ordered]: 12/30/19 @1000
[2019-12-28 23:26] LABS: Bedside Glucose 124 mg/dL (70-110)
[2019-12-29] VITALS (13 sets, daily range): BP systolic 120–150; BP diastolic 53–68; PULSE 85–107; RESP 16–24; TEMP 36.3–36.8; O2SAT 93–97
[2019-12-29 04:52] LABS: Absolute Lymphocyte Count 1.85 X10^3/uL (0.83-4.51); Absolute Neutrophil Count 2.9 X10^3/uL (2.0-7.7); Basophil# 0.01 X10^3/uL; Basophil% 0.2 % (0-1); Eosinophil# 0.01 X10^3/uL; Eosinophils% 0.2 % (0-5); Hematocrit 41.8 % (40-54); Hemoglobin 14.2 g/dL (13.0-16.5); Lymphocyte # 1.85 X10^3/ul (4.0); Lymphocyte % 32.6 % (19-41); Mean Corpuscular Hgb 32.5 pg (27.0-32.0); Mean Corpuscular Volume 95.7 fL (80-94); Monocyte# 0.92 X10^3/uL; Monocyte% 16.2 % (0-10); NRBC Flagged by Analyzer 0 % (0-5); Neutrophil # 2.88 X10^3/uL (2.7-7.7); Neutrophil % 50.6 % (47-70); Platelet Count 166 K/mm3 (150-450); RBC Distribution Width CV 12.8 % (11.6-14.6); RBC Distribution Width SD 45.1 fl (35.1-43.9); Red Blood Count 4.37 M/mm3 (4.6-6.2); White Blood Count 5.7 K/mm3 (4.4-11.0)
[2019-12-29 05:01] LABS: International Normalized Ratio 1.1; Prothrombin Time (Protime)PT. 13.9 SECONDS (11.7-14.9)
[2019-12-29 05:20] LABS: Anion Gap 9 (5-15); BUN 22 mg/dL (7-18); Calcium,Total 7.9 mg/dL (8.5-10.1); Chloride 108 mmol/L (98-107); Creatinine, Serum 1.22 mg/dL (0.70-1.30); EST Glomerular Filtration Rate 62 mL/min (>60); Est Glom Filt Rate - Afr Amer 76 mL/min (>60); Estimated Creatinine Clearance 49.71 ml/min; Glucose 91 mg/dL (74-106); Magnesium 2.1 mg/dL (1.6-2.6); Potassium 3.5 mmol/L (3.5-5.1); Sodium Level 138 mmol/L (136-145)
[2019-12-29] MEDS: 0.9% Normal Saline 1,000 ML 150 ML IV (06:36)
[2019-12-29] MEDS: Ibuprofen 600 MG Tablet PO ×2 (06:37→21:57)
[2019-12-29 06:55] LABS: Bedside Glucose 84 mg/dL (70-110)
--- NOTE | 2019-12-29 08:09 | PCM.PN.HOSP ---
Patient Problems: Active and Suspected Problems (Last Reviewed 09/28/19 @ 10:35 by Rylee Kulkarni) COVID-19 (Acute) Reason for Visit: COVID-19 bilateral pneumonia Objective: Patient is admitted with symptoms of progressive worsening cough predominantly dry, fever, headache, loss of taste and smell sense and mild abdominal upset with diarrhea. His is also sick for more than 1 week. COVID-19 PCR and adenovirus are positive. 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 Low-grade temperature 99.2 ?F. General: Alert, Oriented x3, Cooperative HEENT: Atraumatic, PERRLA, EOMI, Normocephalic Oral: No Gingival or Mucosal Lesions/ Ulcerations Neck: Supple, No JVD, Negative Carotid Bruits Lungs: Air entry diminished in bilateral lung bases. Right lower posterior coarse rales present. Dyspnea on exertion. No hypoxia Cardiovascular: Regular rate, Regular Rhythm, Normal S1, Normal S2, No murmurs Abdomen: Bowel Sounds Present, Soft, Non Tender, Non-Distended : No renal angle tenderness. No suprapubic tenderness. Extremities: No edema, Capillary Refill Less than 3 Seconds Skin: No rashes, No breakdown Musculoskeletal: No Tenderness to Palpation of Joints or Extremities Neurological: Cranial nerves II-XII grossly intact, Deep Tendon Reflexes 2+/4 and Symmetrical, Neuro grossly intact Psych/Mental Status: Normal Affect, Appropriate Vitals/I&O's: Vital Signs Temp Pulse Resp BP Pulse Ox 98 F 92 16 127/61 H 93 12/29/19 02:48 12/29/19 04:01 12/29/19 02:48 12/29/19 02:48 12/29/19 02:48 Oxygen Delivery Method Room Air Weight: 207 lb 7.28 oz Body Mass Index (BMI) 34.5 Intake and Output for Last 24 Hours 12/27/19 12/28/19 12/29/19 23:59 23:59 23:59 Intake Total 172.5 / 172.5 1934 Balance 172.5 / 172.5 1934 Microbiology Past 72 Hours 12/28/19 16:41 Mucosa - Nasopharyngeal Respiratory Panel (PCR) - Final Adenovirus 12/28/19 18:40 Urine, Clean Catch Streptococcus pneumoniae Antigen (M - Final 12/28/19 18:40 Urine, Clean Catch Legionella Antigen - Final Laboratory Results 12/28/19 16:42: COVID-19 (JIHAN) Detected 12/28/19 16:50: WBC 7.7, RBC 4.99, Hgb 16.1, Hct 47.4, MCV 95.0 H, MCH 32.3 H, MCHC 34.0, RDW Std Deviation 44.8 H, RDW Coeff of [place]acy 12.9, Plt Count 200, MPV 10.2, Immature Gran % (Auto) 0.400, Neut % (Auto) 67.8, Lymph % (Auto) 16.0 L, [place] % (Auto) 15.7 H, Eos % (Auto) 0.1, Baso % (Auto) 0.0, Absolute Neuts (auto) 5.2, Absolute Lymphs (auto) 1.23, Nucleated RBC % 0 12/28/19 16:50: D-Dimer Quant (PE/DVT) 0.56 H* 12/28/19 16:50: Sodium 136, Potassium 4.2, Chloride 107, Carbon Dioxide 21.0, Anion Gap 8, BUN 23 H, Creatinine 1.31 H, Estim Creat Clear Calc 46.29, Est GFR (MDRD) Af Amer 70, Est GFR (MDRD) Non-Af 58 L, BUN/Creatinine Ratio 17.6, Glucose 131 H, Calcium 8.6, Total Bilirubin 0.70, AST 66 H, ALT 57, Alkaline Phosphatase 86, Troponin I < 0.015, C-React Prot Ext Range 80.10 H, Total Protein 8.1, Albumin 3.3, Globulin 4.8 H, Albumin/Globulin Ratio 0.7 L 12/28/19 16:50: Lactic Acid 1.4 12/28/19 16:50: B-Natriuretic Peptide 18.4 12/28/19 16:50: Procalcitonin 0.05 12/28/19 16:50: PT 12.7, INR 1.0 12/28/19 16:50: Total Bilirubin 0.70, Direct Bilirubin 0.29, AST 68 H, ALT 60, Alkaline Phosphatase 87, Total Protein 8.2, Albumin 3.3, Globulin 4.9 H 12/28/19 21:46: POC Glucose 124 H 12/29/19 04:45: WBC 5.7, RBC 4.37 L, Hgb 14.2, Hct 41.8, MCV 95.7 H, MCH 32.5 H, MCHC 34.0, RDW Std Deviation 45.1 H, RDW Coeff of [place]acy 12.8, Plt Count 166, MPV 10.0, Immature Gran % (Auto) 0.200, Neut % (Auto) 50.6, Lymph % (Auto) 32.6, [place] % (Auto) 16.2 H, Eos % (Auto) 0.2, Baso % (Auto) 0.2, Absolute Neuts (auto) 2.9, Absolute Lymphs (auto) 1.85, Nucleated RBC % 0 12/29/19 04:45: PT 13.9, INR 1.1 12/29/19 04:45: Sodium 138, Potassium 3.5, Chloride 108 H, Carbon Dioxide 21.0, Anion Gap 9, BUN 22 H, Creatinine 1.22, Estim Creat Clear Calc 49.71, Est GFR (MDRD) Af Amer 76, Est GFR (MDRD) Non-Af 62, BUN/Creatinine Ratio 18.0, Glucose 91, Calcium 7.9 L, Magnesium 2.1 12/29/19 06:40: POC Glucose 84 Current Medications Dextrose (D50w Syringe) 0 gm IV X1 PRN; Protocol PRN Reason: Hypoglycemia Enoxaparin Sodium (Lovenox) 40 mg SC BID NIKI Glucagon () 1 mg IM .X1 PRN PRN Reason: Hypoglycemia Levofloxacin (Levaquin Iv) 750 mg in 150 mls @ 100 mls/hr IV Q24 NIKI Sodium Chloride () 1,000 mls @ 150 mls/hr IV .Q6H40M NIKI Stop: 12/29/19 13:09 Last Admin: 12/29/19 06:36 Dose: 150 mls/hr Documented by: Vancomycin IV Pharmacy to Dose (1 ea/ Sodium Chloride) 500 mls @ 250 mls/hr IV PRN PRN; Protocol PRN Reason: Rx to Dose Vancomycin HCl 750 mg/ Sodium (Chloride) 265 mls @ 250 mls/hr IV Q12H NIKI Ibuprofen (Motrin) 600 mg PO Q6H PRN PRN PRN Reason: Pain (1-10) or Fever Last Admin: 12/29/19 06:37 Dose: 600 mg Documented by: Nitroglycerin (Nitrostat) 0.4 mg SUBLINGUAL Q5M PRN PRN Reason: CARDIAC/CHEST PAIN Nutritional Formula (Lactose Free) (Glucerna Shake) 120 ml PO 4X/DAY NIKI Ondansetron HCl (Zofran) 4 mg IV Q8H PRN PRN PRN Reason: NAUSEA/VOMITING Sodium Chloride () 10 - 40 ml IV UD PRN PRN Reason: SALINE FLUSH Last Admin: 12/28/19 21:49 Dose: 10 ml Documented by: STROKE Vital Signs/Narrative: Vital Signs Pulse 12/29/19 04:01 92 Medical Necessity - Tobacco Use Smoking Status: Never smoker Tobacco Use: Non-smoker Assessment/Plan All Active Problems (Last Reviewed 09/28/19 @ 10:35 by Rylee Kulkarni) COVID-19 (Acute) 69 y/o admitted with a complaint of shortness of breath, fever and cough for about 1 week prior to admission. CRP and D-dimers were elevated. Chest x-ray and CTA findings shows multifocal peripheral areas of groundglass opacity in both upper and lower lobes consistent with COVID-19 pneumonia. 1. Sepsis due to bilateral community acquired pneumonia, confirmed COVID-19 and adenovirus pneumonia: Patient is admitted on COVID floor. Patient had IV fluid and will discontinue it as patient normotensive and good urine output. Seen by ID. Initially on broad-spectrum antibiotic Vanco and Levaquin but was discontinued by ID because of viral pneumonia. Probably on day of COVID-19 pneumonia. Lactic acid normal. Inflammatory markers d-dimer, CRP, CK, ferritin and LDH are elevated. Procalcitonin 0.05, negative. On supportive care with DuoNeb nebulization, incentive spirometry, chest physiotherapy, and Mucinex. 2. paroxysmal afib: on metoprolol. Not on any anticoagulation, reason is not clear. 3. CAD s/p stents: on aspirin, ezetimibe, and lisinopril as well as plavix 4. Hyperlipidemia: on ezetimibe 5. Diabetes mellitus type II: on glimepiride. Accuchecks ACHS regimen of sliding scale. Glucose is well controlled. 6. PAD: on ciloztazol 7. Hypertension: on on metoprolol and lisinopril DVT prophylaxis: lovenox 40 mg subcu twice daily Code status; full code Total time of the visit including total time spent in counseling or coordination of care, (more than 50% of the total time, spent in obtaining medical information from nurses and other ancillary care providers), discussion with loss control consultant , review of labs and imaging is 30 minutes Inpatient E&M: 24093 [facility] L[facility]
[2019-12-29] MEDS: levoFLOXacin IV 750 MG/150 ML BAG 100 MG IV (08:53)
[2019-12-29] MEDS: Enoxaparin 40 MG/0.4 ML Syringe SC ×2 (08:53→21:56)
[2019-12-29 10:03] LABS: BNP,B-Type NATRIURETIC PEPTIDE 11.3 pg/mL (0-100)
[2019-12-29 10:08] LABS: D-Dimer Quantitative (DVT/PE) 0.56 FEU/ug/m (0.27-0.49)
[2019-12-29 10:18] LABS: CPK Total, Creatine Kinase 1113 U/L (39-308); Ferritin 623 ng/mL (26-388); LDH 270 U/L (87-241)
--- NOTE | 2019-12-29 10:50 | CON.PCM_ITS ---
Problem List (1) COVID-19 Status: Acute Reason for Consult: rafaela Consulted by: Dr. Bourne History of Present Illness: The patient is a 69 year old M who presented 12/27 with progressive cough, fever, headache, aches, loss of taste/smell, diarrhea. Sx started 12/19. Has been isolating/masking. now also getting sick with similar sx. No congestion or sore throat. Yesterday became more dyspneic and had some chest pain. Came to ED, covid and adeno (+), admitted on vanc and levaquin. Not requiring O2, but sat at 91% on presentation. Chest pain gone, feeling a little better today. Full ROS performed and neg except as noted above. - Medical History Past Medical History (Chronic Problems): Chronic Problems (Last Reviewed 09/28/19 @ 10:35 by Rylee Kulkarni) Presence of stent in coronary artery (Chronic ~04/30/13) PTCA with KEYANA of proximal 3rd marginal artery 04/30/13 Pure hypercholesterolemia (Chronic) Essential hypertension (Chronic) Claudication in peripheral vascular disease (Chronic) Left ventricular hypertrophy (Chronic) Paroxysmal atrial fibrillation (Chronic) 04/29 Loop recorder; Loop recorder removed 10/15/16; Atherosclerotic heart disease of [place] coronary artery without angina pectoris (Chronic) Allergies/Adverse Reactions: Allergies acetaminophen [From Tylenol] Allergy (Verified 12/28/19 16:00) Anaphylaxis hydromorphone HCl [From Dilaudid] Allergy (Verified 12/28/19 16:00) Unknown Penicillins Allergy (Verified 12/28/19 16:00) Hives Home Medications: Ambulatory Orders Medication Instructions Recorded Aspirin [Aspirin, Baby] 81 mg PO QHS 04/23/13 Nortriptyline HCl [Pamelor] 25 mg PO QHS 04/23/13 Pantoprazole Sodium [Protonix] 40 mg PO DAILY 04/23/13 Tamsulosin HCl [Flomax] 0.4 mg PO QHS 04/23/13 Finasteride [Proscar] 5 mg PO DAILY 10/12/16 cholecalciferol (vitamin D3) 25 5,000 unit PO DAILY 05/05/18 mcg (1,000 unit) capsule adalimumab 10 mg/0.2 mL 40 mg SC Q2W 10/21/18 subcutaneous syringe kit clopidogrel 75 mg tablet 75 mg PO QHS #90 tab 04/22/19 cilostazol 100 mg tablet 100 mg PO BID #180 tab 06/23/19 metoprolol tartrate 50 mg tablet 75 mg PO BID #270 tab 06/23/19 lisinopril 20 mg tablet 20 mg PO DAILY #90 tab 07/13/19 glimepiride 1 mg tablet 1 mg PO DAILY 09/28/19 nitroglycerin 0.4 mg sublingual 0.4 mg SUBLINGUAL ONCE #90 tab 09/28/19 tablet oxybutynin chloride 10 mg 10 mg PO DAILY 09/28/19 tablet,extended release 24 hr ezetimibe 10 mg tablet 10 mg PO QHS #90 tab 12/22/19 - Social History Tobacco Use: non-smoker Vital Signs Temp Pulse Resp BP Pulse Ox 97.9 F 95 18 130/59 H 95 12/29/19 08:58 12/29/19 09:10 12/29/19 08:58 12/29/19 08:58 12/29/19 09:00 Oxygen Delivery Method Room Air Weight: 94.1 kg Body Mass Index (BMI) 34.5 Microbiology Past 72 Hours 12/28/19 16:41 Respiratory Panel (PCR) - Final Mucosa - Nasopharyngeal Adenovirus 12/28/19 18:40 Streptococcus pneumoniae Antigen (M - Final Urine, Clean Catch 12/28/19 18:40 Legionella Antigen - Final Urine, Clean Catch Laboratory Tests Past 24 Hrs 12/28/19 12/28/19 12/28/19 16:42 16:50 16:50 WBC 7.7 RBC 4.99 Hgb 16.1 Hct 47.4 MCV 95.0 H MCH 32.3 H MCHC 34.0 RDW Std Deviation 44.8 H RDW Coeff of Stacy 12.9 Plt Count 200 MPV 10.2 Immature Gran % (Auto) 0.400 Neut % (Auto) 67.8 Lymph % (Auto) 16.0 L Phelps % (Auto) 15.7 H Eos % (Auto) 0.1 Baso % (Auto) 0.0 Absolute Neuts (auto) 5.2 Absolute Lymphs (auto) 1.23 Nucleated RBC % 0 PT INR D-Dimer Quant (PE/DVT) 0.56 H* Sodium Potassium Chloride Carbon Dioxide Anion Gap BUN Creatinine Estim Creat Clear Calc Est GFR (MDRD) Af Amer Est GFR (MDRD) Non-Af BUN/Creatinine Ratio Glucose Lactic Acid Calcium Magnesium Ferritin Total Bilirubin Direct Bilirubin AST ALT Alkaline Phosphatase Lactate Dehydrogenase Total Creatine Kinase Troponin I C-React Prot Ext Range B-Natriuretic Peptide Total Protein Albumin Globulin Albumin/Globulin Ratio Procalcitonin COVID-19 (JIHAN) Detected Blood Type 12/28/19 12/28/19 12/28/19 16:50 16:50 16:50 WBC RBC Hgb Hct MCV MCH MCHC RDW Std Deviation RDW Coeff of Stacy Plt Count MPV Immature Gran % (Auto) Neut % (Auto) Lymph % (Auto) Phelps % (Auto) Eos % (Auto) Baso % (Auto) Absolute Neuts (auto) Absolute Lymphs (auto) Nucleated RBC % PT INR D-Dimer Quant (PE/DVT) Sodium 136 Potassium 4.2 Chloride 107 Carbon Dioxide 21.0 Anion Gap 8 BUN 23 H Creatinine 1.31 H Estim Creat Clear Calc 46.29 Est GFR (MDRD) Af Amer 70 Est GFR (MDRD) Non-Af 58 L BUN/Creatinine Ratio 17.6 Glucose 131 H Lactic Acid 1.4 Calcium 8.6 Magnesium Ferritin Total Bilirubin 0.70 Direct Bilirubin AST 66 H ALT 57 Alkaline Phosphatase 86 Lactate Dehydrogenase Total Creatine Kinase Troponin I < 0.015 C-React Prot Ext Range 80.10 H B-Natriuretic Peptide 18.4 Total Protein 8.1 Albumin 3.3 Globulin 4.8 H Albumin/Globulin Ratio 0.7 L Procalcitonin COVID-19 (JIHAN) Blood Type 12/28/19 12/28/19 12/28/19 16:50 16:50 16:50 WBC RBC Hgb Hct MCV MCH MCHC RDW Std Deviation RDW Coeff of Stacy Plt Count MPV Immature Gran % (Auto) Neut % (Auto) Lymph % (Auto) Phelps % (Auto) Eos % (Auto) Baso % (Auto) Absolute Neuts (auto) Absolute Lymphs (auto) Nucleated RBC % PT 12.7 INR 1.0 D-Dimer Quant (PE/DVT) Sodium Potassium Chloride Carbon Dioxide Anion Gap BUN Creatinine Estim Creat Clear Calc Est GFR (MDRD) Af Amer Est GFR (MDRD) Non-Af BUN/Creatinine Ratio Glucose Lactic Acid Calcium Magnesium Ferritin Total Bilirubin 0.70 Direct Bilirubin 0.29 AST 68 H ALT 60 Alkaline Phosphatase 87 Lactate Dehydrogenase Total Creatine Kinase Troponin I C-React Prot Ext Range B-Natriuretic Peptide Total Protein 8.2 Albumin 3.3 Globulin 4.9 H Albumin/Globulin Ratio Procalcitonin 0.05 COVID-19 (JIHAN) Blood Type 12/29/19 12/29/19 12/29/19 04:45 04:45 04:45 WBC 5.7 RBC 4.37 L Hgb 14.2 Hct 41.8 MCV 95.7 H MCH 32.5 H MCHC 34.0 RDW Std Deviation 45.1 H RDW Coeff of Stacy 12.8 Plt Count 166 MPV 10.0 Immature Gran % (Auto) 0.200 Neut % (Auto) 50.6 Lymph % (Auto) 32.6 Phelps % (Auto) 16.2 H Eos % (Auto) 0.2 Baso % (Auto) 0.2 Absolute Neuts (auto) 2.9 Absolute Lymphs (auto) 1.85 Nucleated RBC % 0 PT 13.9 INR 1.1 D-Dimer Quant (PE/DVT) Sodium 138 Potassium 3.5 Chloride 108 H Carbon Dioxide 21.0 Anion Gap 9 BUN 22 H Creatinine 1.22 Estim Creat Clear Calc 49.71 Est GFR (MDRD) Af Amer 76 Est GFR (MDRD) Non-Af 62 BUN/Creatinine Ratio 18.0 Glucose 91 Lactic Acid Calcium 7.9 L Magnesium 2.1 Ferritin Total Bilirubin Direct Bilirubin AST ALT Alkaline Phosphatase Lactate Dehydrogenase Total Creatine Kinase Troponin I C-React Prot Ext Range B-Natriuretic Peptide Total Protein Albumin Globulin Albumin/Globulin Ratio Procalcitonin COVID-19 (JIHAN) Blood Type 12/29/19 12/29/19 12/29/19 04:45 04:45 04:45 WBC RBC Hgb Hct MCV MCH MCHC RDW Std Deviation RDW Coeff of Stacy Plt Count MPV Immature Gran % (Auto) Neut % (Auto) Lymph % (Auto) Phelps % (Auto) Eos % (Auto) Baso % (Auto) Absolute Neuts (auto) Absolute Lymphs (auto) Nucleated RBC % PT INR D-Dimer Quant (PE/DVT) 0.56 H* Sodium Potassium Chloride Carbon Dioxide Anion Gap BUN Creatinine Estim Creat Clear Calc Est GFR (MDRD) Af Amer Est GFR (MDRD) Non-Af BUN/Creatinine Ratio Glucose Lactic Acid Calcium Magnesium Ferritin 623 H Total Bilirubin Direct Bilirubin AST ALT Alkaline Phosphatase Lactate Dehydrogenase 270 H Total Creatine Kinase 1113 H Troponin I < 0.015 C-React Prot Ext Range B-Natriuretic Peptide 11.3 Total Protein Albumin Globulin Albumin/Globulin Ratio Procalcitonin COVID-19 (JIHAN) Blood Type 12/29/19 10:00 WBC RBC Hgb Hct MCV MCH MCHC RDW Std Deviation RDW Coeff of Stacy Plt Count MPV Immature Gran % (Auto) Neut % (Auto) Lymph % (Auto) Phelps % (Auto) Eos % (Auto) Baso % (Auto) Absolute Neuts (auto) Absolute Lymphs (auto) Nucleated RBC % PT INR D-Dimer Quant (PE/DVT) Sodium Potassium Chloride Carbon Dioxide Anion Gap BUN Creatinine Estim Creat Clear Calc Est GFR (MDRD) Af Amer Est GFR (MDRD) Non-Af BUN/Creatinine Ratio Glucose Lactic Acid Calcium Magnesium Ferritin Total Bilirubin Direct Bilirubin AST ALT Alkaline Phosphatase Lactate Dehydrogenase Total Creatine Kinase Troponin I C-React Prot Ext Range B-Natriuretic Peptide Total Protein Albumin Globulin Albumin/Globulin Ratio Procalcitonin COVID-19 (JIHAN) Blood Type Pending - Other Studies Radiology: [] reviewed Other Studies: [] Route of nutrition/ use of supplements: [] Nutritional Intake: [] IV Site: [] Silva Catheter: [] - Physical Exam General: Alert, Oriented x3, Cooperative, No apparent distress HEENT: Atraumatic, PERRLA, EOMI Neck: Supple, No Nodes Lungs: Diminished Cardiovascular: No murmurs, Tachycardic Abdomen: Soft, Non Tender, Non-Distended Extremities: No edema Skin: No rashes IV Site: Peripheral, without redness Musculoskeletal: No Tenderness to Palpation of Joints or Extremities Neurological: Cranial nerves II-XII grossly intact - Assessment/Plan Antibiotics: [] Assessment/Plan: [] covid - feeling better, sats improved. Checked additional labs. D-dimer mildly elevated. LDH, CK, ferritin, and CRP high. PCT negative. Will stop abx, continue supportive care. Does not meet criteria for steroids, remdesivir, or plasma at this time given improvement and lack of supplemental O2. Day 9 of symptoms today. Will follow, thank you
[2019-12-29 11:31] LABS: Bedside Glucose 98 mg/dL (70-110)
--- NOTE | 2019-12-29 13:15 | CASEMGMT ---
RN CM called patient in room for initial transition planning/care coordination assessment. RN CM introduced self and role at [facility]. Patient alert and oriented. Patient willing to participate in assessment and is able to answer all questions appropriately. Care providers, pharmacy, and demographics verified. Patient wishes to discharge home, denies need for home health at this time. Patient states he has no further needs or concerns at this time. CM to follow for discharge planning needs that may arise. 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 Patient is independent at home. Patient states he is able to self-isolate when he returns home. Transportation: self/ DME/HHC: Patient states he has walker and cpap at home. If patient would need oxygen at discharge would like [employer]. Disposition Plan: Patient to discharge home with family support and follow-up plans in place. Renetta GÓMEZ, RN, CM
[2019-12-29] MEDS: guaiFENesin 1,200 MG Tablet 1200 MG PO ×2 (15:53→21:57)
[2019-12-29 16:06] LABS: Bedside Glucose 83 mg/dL (70-110)
[2019-12-30] VITALS (9 sets, daily range): BP systolic 117–144; BP diastolic 69–74; PULSE 85–102; RESP 16–20; TEMP 36.8–36.9; O2SAT 93–96
[2019-12-30] MEDS: Ibuprofen 600 MG Tablet PO (06:23)
[2019-12-30 06:40] LABS: Bedside Glucose 87 mg/dL (70-110)
[2019-12-30] MEDS: Metoprolol Tartrate 50 MG Tablet 75 MG PO (09:05)
[2019-12-30] MEDS: Lisinopril 20 MG Tablet PO (09:05)
[2019-12-30] MEDS: guaiFENesin 1,200 MG Tablet 1200 MG PO (09:05)
[2019-12-30] MEDS: Pantoprazole Sodium 40 MG Tablet PO (09:05)
[2019-12-30] MEDS: Tolterodine Tartrate 2 MG CAP.SA PO (09:05)
[2019-12-30] MEDS: Cilostazol 50 MG Tablet 100 MG PO (09:05)
[2019-12-30] MEDS: Finasteride 5 MG Tablet PO (09:05)
[2019-12-30] MEDS: Enoxaparin 40 MG/0.4 ML Syringe SC (09:06)
--- NOTE | 2019-12-30 09:13 | DCINST_ITS ---
- Discharge Diagnoses Current Active Problems: Current Active and Chronic Problems (Last Reviewed 09/28/19 @ 10:35 by Rylee Kulkarni) COVID-19 (Acute) You will use the following diet at home:: Cardiac Your food should be the consistency of: Regular Discharge Activity: May Not Drive - for 2 weeks Call your doctor if you observe: Fever of 101 or Higher, Coldness, Increased Pain, Inability to urinate, Inability to have a bowel movement, Shortness of breath, Dizziness, Fainting spells, Swelling in the ankles, Chest pain, Prolonged hiccoughing, Increased palpitations (irregular heartbeat), Calf discomfort, Uncontrolled pain Additional Instructions: Maintain COVID-19 quarantine for 12 days Allergies/Adverse Reactions: Allergies acetaminophen [From Tylenol] Allergy (Verified 12/28/19 16:00) Anaphylaxis hydromorphone HCl [From Dilaudid] Allergy (Verified 12/28/19 16:00) Unknown Penicillins Allergy (Verified 12/28/19 16:00) Hives Medications to take at Discharge Aspirin [Aspirin, Baby] 81 mg PO QHS 04/23/13 Nortriptyline HCl [Pamelor] 25 mg PO QHS 04/23/13 Pantoprazole Sodium [Protonix] 40 mg PO DAILY 04/23/13 Tamsulosin HCl [Flomax] 0.4 mg PO QHS 04/23/13 Finasteride [Proscar] 5 mg PO DAILY 10/12/16 cholecalciferol (vitamin D3) 25 mcg (1,000 unit) capsule 5,000 unit PO DAILY 05/05/18 adalimumab 10 mg/0.2 mL subcutaneous syringe kit 40 mg SC Q2W 10/21/18 glimepiride 1 mg tablet 1 mg PO DAILY 09/28/19 oxybutynin chloride 10 mg tablet,extended release 24 hr 10 mg PO DAILY 09/28/19 Cilostazol 100 mg PO BID 12/29/19 Clopidogrel Bisulfate [Clopidogrel] 75 mg PO QHS 12/29/19 Ezetimibe 10 mg PO QHS 12/29/19 Lisinopril 20 mg PO DAILY 12/29/19 Metoprolol Tartrate [Lopressor (beta jennifer)] 75 mg PO BID 12/29/19 Albuterol Sulfate [Albuterol Sulfate HFA] 2 puff IH Q4H PRN PRN #1 inhaler 12/30/19 Guaifenesin [Mucinex] 1,200 mg PO BID #14 tab 12/30/19 The following prescriptions were given: Albuterol Sulfate [Albuterol Sulfate HFA] 2 puff IH Q4H PRN PRN #1 inhaler PRN Reason: Sob &/Or Wheezing Transmission Status: Pending to [id number] Guaifenesin [Mucinex] 1,200 mg PO BID #14 tab Transmission Status: Pending to [id number] Primary Care Physician: Connor Kohli MD [Primary Care Provider] - Please follow up with your Primary Care Physician in: in 2 weeks Test Results: Test results from this visit will be discussed in further detail at your follow- up appointment, if applicable. Please Follow Up With: Jez Lopez DO When: in 2-4 weeks, farmre's lung, COVID pneumonia Please Follow Up With: Octavio Falk MD When: needed for fever or Viral pneumonia
--- NOTE | 2019-12-30 09:15 | DS.PCM_ITS ---
Discharge Date and Diagnosis - Problem List Patient Problems: Active and Suspected Problems (Last Reviewed 09/28/19 @ 10:35 by Rylee Kulkarni) COVID-19 (Acute) Date of Admission: 12/28/19 Date of Discharge: 12/30/19 - Primary Discharge Diagnosis Acute Problems: Active Problems (Last Reviewed 09/28/19 @ 10:35 by Rylee Kulkarni) COVID-19 (Acute) - Secondary Discharge Diagnosis Chronic Problems: Chronic Problems (Last Reviewed 09/28/19 @ 10:35 by Rylee Kulkarni) Presence of stent in coronary artery (Chronic ~04/30/13) PTCA with KEYANA of proximal 3rd marginal artery 04/30/13 Pure hypercholesterolemia (Chronic) Essential hypertension (Chronic) Claudication in peripheral vascular disease (Chronic) Left ventricular hypertrophy (Chronic) Paroxysmal atrial fibrillation (Chronic) 04/29 Loop recorder; Loop recorder removed 10/15/16; Atherosclerotic heart disease of [place] coronary artery without angina pectoris (Chronic) Hospital Course and Treatment Summary of Care Provided: The patient is a 69 y/o admitted with a complaint of shortness of breath, fever and cough for about 1 week prior to admission. CRP and D-dimers were elevated. Chest x-ray and CTA findings shows multifocal peripheral areas of groundglass opacity in both upper and lower lobes consistent with COVID-19 pneumonia. 1. Sepsis due to bilateral community acquired pneumonia, confirmed COVID-19 and adenovirus pneumonia: Patient is admitted on COVID floor. Patient had IV fluid and will discontinue it as patient normotensive and good urine output. Seen by ID. Initially on broad-spectrum antibiotic Vanco and Levaquin but was discontinued by ID because of viral pneumonia. Lactic acid normal. Inflammatory markers d-dimer, CRP, CK, ferritin and LDH are elevated. Procalcitonin 0.05, negative. Patient shortness of breath, tachypnea got better and resolved. Patient was managed with DuoNeb nebulization, incentive spirometry, chest physiotherapy, and Mucinex. His prescription given for Mucinex advised to continue incentive spirometry and pep. Follow-up with pulmonary clinic in 2 to 4 weeks. 2. paroxysmal afib: on metoprolol. Not on any anticoagulation, reason is not clear. 3. CAD s/p stents: on aspirin, ezetimibe, and lisinopril as well as plavix 4. Hyperlipidemia: on ezetimibe 5. Diabetes mellitus type II: on glimepiride. Accuchecks ACHS regimen of sliding scale. Glucose is well controlled. 6. PAD: on ciloztazol 7. Hypertension: on on metoprolol and lisinopril DVT prophylaxis: lovenox 40 mg subcu twice daily Code status; full code Discharge medication reconciliation done. Discharge follow-up instructions completed. Discharge process discussed with the patient and all questions were answered to patient's satisfaction. Patient advised self quarantine for 12 more days. Advised SARS?2 serology with PCP IN 2 weeks Total time spent, exact 35 minutes on discharge meds reconciliation, examination, coordination of care with nurses and ancillary staff, review of imaging and blood test and discussion with the patient on follow-up instructions Patient Problems: Active and Suspected Problems (Last Reviewed 09/28/19 @ 10:35 by Rylee Kulkarni) COVID-19 (Acute) Objective: Seen and examined. Heart rate and blood pressure are controlled. Pulse ox 94% on room air. No shortness of breath or tachypnea. No fever. Physical exam General: Alert, Oriented x3, Cooperative HEENT: Atraumatic, PERRLA, EOMI, Normocephalic Oral: No Gingival or Mucosal Lesions/ Ulcerations Neck: Supple, No JVD, Negative Carotid Bruits Lungs: Air entry diminished in bilateral lung bases. No crepitation/rhonchi. No labored breathing. No hypoxia Cardiovascular: Regular rate, Regular Rhythm, Normal S1, Normal S2, No murmurs Abdomen: Bowel Sounds Present, Soft, Non Tender, Non-Distended : No renal angle tenderness. No suprapubic tenderness. Extremities: No edema, Capillary Refill Less than 3 Seconds Skin: No rashes, No breakdown Musculoskeletal: No Tenderness to Palpation of Joints or Extremities Neurological: Cranial nerves II-XII grossly intact, Deep Tendon Reflexes 2+/4 and Symmetrical, Neuro grossly intact Psych/Mental Status: Normal Affect, Appropriat - Physical Exam Vitals/I&O's: Vital Signs Temp Pulse Resp BP Pulse Ox 98.5 F 91 16 144/69 H 94 12/30/19 08:00 12/30/19 09:05 12/30/19 08:00 12/30/19 08:00 12/30/19 08:00 Oxygen Delivery Method Room Air Weight: 207 lb 7.28 oz Body Mass Index (BMI) 34.5 Intake and Output for Last 24 Hours 12/28/19 12/29/19 12/30/19 23:59 23:59 23:59 Intake Total 172.5 / 172.5 3727.5 / 3927.5 500 / 500 Balance 172.5 / 172.5 3727.5 / 3927.5 500 / 500 Microbiology Past 72 Hours 12/28/19 16:41 Mucosa - Nasopharyngeal Respiratory Panel (PCR) - Final Adenovirus 12/28/19 18:40 Urine, Clean Catch Streptococcus pneumoniae Antigen (M - Final 12/28/19 18:40 Urine, Clean Catch Legionella Antigen - Final Laboratory Results 12/29/19 04:45: D-Dimer Quant (PE/DVT) 0.56 H* 12/29/19 04:45: Ferritin 623 H, Lactate Dehydrogenase 270 H, Total Creatine Kinase 1113 H, Troponin I < 0.015 12/29/19 04:45: B-Natriuretic Peptide 11.3 12/29/19 10:00: Blood Type A POSITIVE 12/29/19 11:16: POC Glucose 98 12/29/19 15:52: POC Glucose 83 12/30/19 06:21: POC Glucose 87 Current Medications Albuterol/Ipratropium (Duoneb) 3 ml INHALATION Q4H PRN PRN Reason: SOB/WHEEZING Aspirin (Aspirin, Baby) 81 mg PO QHS [facility] Cilostazol (Pletal) 100 mg PO BID [facility] Last Admin: 12/30/19 09:05 Dose: 100 mg Documented by: Clopidogrel Bisulfate (Plavix) 75 mg PO QHS [facility] Dextrose (D50w Syringe) 0 gm IV X1 PRN; Protocol PRN Reason: Hypoglycemia Ezetimibe (Zetia) 10 mg PO QHS [facility] Enoxaparin Sodium (Lovenox) 40 mg SC BID [facility] Last Admin: 12/30/19 09:06 Dose: 40 mg Documented by: Finasteride (Proscar) 5 mg PO DAILY [facility] Last Admin: 12/30/19 09:05 Dose: 5 mg Documented by: [facility] () 1 mg IM .X1 PRN PRN Reason: Hypoglycemia Guaifenesin (Mucinex) 1,200 mg PO BID [facility] Last Admin: 12/30/19 09:05 Dose: 1,200 mg Documented by: Ibuprofen (Motrin) 600 mg PO Q6H PRN PRN PRN Reason: Pain (1-10) or Fever Last Admin: 12/30/19 06:23 Dose: 600 mg Documented by: Lisinopril (Zestril) 20 mg PO DAILY [facility] Last Admin: 12/30/19 09:05 Dose: 20 mg Documented by: Metoprolol Tartrate (Lopressor (Beta Ruba)) 75 mg PO BID [facility] Last Admin: 12/30/19 09:05 Dose: 75 mg Documented by: Nitroglycerin (Nitrostat) 0.4 mg SUBLINGUAL Q5M PRN PRN Reason: CARDIAC/CHEST PAIN Nortriptyline HCl (Pamelor) 25 mg PO QHS [facility] Ondansetron HCl (Zofran) 4 mg IV Q8H PRN PRN PRN Reason: NAUSEA/VOMITING Pantoprazole Sodium (Protonix) 40 mg PO DAILY [facility] Last Admin: 12/30/19 09:05 Dose: 40 mg Documented by: Sodium Chloride () 10 - 40 ml IV UD PRN PRN Reason: SALINE FLUSH Last Admin: 12/28/19 21:49 Dose: 10 ml Documented by: Tamsulosin HCl (Flomax) 0.4 mg PO QHS [facility] Tolterodine Tartrate (Detrol La) 2 mg PO DAILY [facility] Last Admin: 12/30/19 09:05 Dose: 2 mg Documented by: Discharge Activity: May Not Drive - for 2 weeks Call your doctor if you observe: Fever of 101 or Higher, Coldness, Increased Pain, Inability to urinate, Inability to have a bowel movement, Shortness of breath, Dizziness, Fainting spells, Swelling in the ankles, Chest pain, Prolonged hiccoughing, Increased palpitations (irregular heartbeat), Calf discomfort, Uncontrolled pain Home Medications: Medications to take at Discharge Aspirin [Aspirin, Baby] 81 mg PO QHS 04/23/13 Nortriptyline HCl [Pamelor] 25 mg PO QHS 04/23/13 Pantoprazole Sodium [Protonix] 40 mg PO DAILY 04/23/13 Tamsulosin HCl [Flomax] 0.4 mg PO QHS 04/23/13 Finasteride [Proscar] 5 mg PO DAILY 10/12/16 cholecalciferol (vitamin D3) 25 mcg (1,000 unit) capsule 5,000 unit PO DAILY 05/05/18 adalimumab 10 mg/0.2 mL subcutaneous syringe kit 40 mg SC Q2W 10/21/18 glimepiride 1 mg tablet 1 mg PO DAILY 09/28/19 oxybutynin chloride 10 mg tablet,extended release 24 hr 10 mg PO DAILY 09/28/19 Cilostazol 100 mg PO BID 12/29/19 Clopidogrel Bisulfate [Clopidogrel] 75 mg PO QHS 12/29/19 Ezetimibe 10 mg PO QHS 12/29/19 Lisinopril 20 mg PO DAILY 12/29/19 Metoprolol Tartrate [Lopressor (beta ruba)] 75 mg PO BID 12/29/19 Albuterol Sulfate [Albuterol Sulfate HFA] 2 puff IH Q4H PRN PRN #1 inhaler 12/30/19 Guaifenesin [Mucinex] 1,200 mg PO BID #14 tab 12/30/19 Following Prescrptions Were Given to Patient: Albuterol Sulfate [Albuterol Sulfate HFA] 2 puff IH Q4H PRN PRN #1 inhaler PRN Reason: Sob &/Or Wheezing Transmission Status: Re[facility] by [id number] Guaifenesin [Mucinex] 1,200 mg PO BID #14 tab Transmission Status: Received by [id number] Primary Care Physician: Connor Kohli MD [Primary Care Provider] - Please follow up with your Primary Care Physician in: in 2 weeks Please Follow Up With: Jez Lopez DO When: in 2-4 weeks, farmre's lung, COVID pneumonia Please Follow Up With: Octavio Falk MD When: needed for fever or Viral pneumonia Medical Necessity - Tobacco Use Smoking Status: Never smoker Tobacco Use: Non-smoker Meaningful Use Info Meaningful Use Diagnoses (Choose all that apply): None applicable Inpatient E&M: [id number] [facility]
--- NOTE | 2019-12-30 14:00 | NURSING ---
Dr. Falk in with pt at this time.
--- NOTE | 2019-12-30 14:28 | NURSING ---
pt concerned about picking up prescriptions from [facility] as they do not have a drive through window. This rN called and requested info on pick and shovel worker- notified that they have curbside delivery and they just call the number on the sign out front and they will bring out to vehicle. Pt notified of same and ok with pick and shovel worker at [facility].
--- NOTE | 2019-12-30 14:52 | PN.ID_ITS ---
Patient Problems: Active and Suspected Problems (Last Reviewed 09/28/19 @ 10:35 by Rylee Kulkarni) COVID-19 (Acute) Subjective: Feeling better, no fever, mild diarrhea. Cough improved. - Physical Exam Vitals/I&O's: Vital Signs Temp Pulse Resp BP Pulse Ox 98.2 F 92 20 H 129/74 H 96 12/30/19 14:00 12/30/19 14:00 12/30/19 14:00 12/30/19 14:00 12/30/19 14:00 Oxygen Delivery Method Room Air Weight: 94.1 kg Body Mass Index (BMI) 34.5 Intake and Output for Last 24 Hours 12/28/19 12/29/19 12/30/19 23:59 23:59 23:59 Intake Total 172.5 / 172.5 3727.5 / 3927.5 850 / 850 Balance 172.5 / 172.5 3727.5 / 3927.5 850 / 850 General: Alert, Cooperative, No apparent distress Lungs: Diminished - improving Cardiovascular: Regular rate, Regular Rhythm Abdomen: Soft, Non Tender, Non-Distended Skin: No rashes Microbiology Past 72 Hours 12/28/19 16:41 Mucosa - Nasopharyngeal Respiratory Panel (PCR) - Final Adenovirus 12/28/19 18:40 Urine, Clean Catch Streptococcus pneumoniae Antigen (M - Final 12/28/19 18:40 Urine, Clean Catch Legionella Antigen - Final Laboratory Results 12/29/19 15:52: POC Glucose 83 12/30/19 06:21: POC Glucose 87 Current Medications Albuterol/Ipratropium (Duoneb) 3 ml INHALATION Q4H PRN PRN Reason: SOB/WHEEZING Aspirin (Aspirin, Baby) 81 mg PO QHS [facility] Cilostazol (Pletal) 100 mg PO BID [facility] Last Admin: 12/30/19 09:05 Dose: 100 mg Documented by: Clopidogrel Bisulfate (Plavix) 75 mg PO QHS [facility] Dextrose (D50w Syringe) 0 gm IV X1 PRN; Protocol PRN Reason: Hypoglycemia Ezetimibe (Zetia) 10 mg PO QHS [facility] Enoxaparin Sodium (Lovenox) 40 mg SC BID [facility] Last Admin: 12/30/19 09:06 Dose: 40 mg Documented by: Finasteride (Proscar) 5 mg PO DAILY [facility] Last Admin: 12/30/19 09:05 Dose: 5 mg Documented by: [facility]ucagon () 1 mg IM .X1 PRN PRN Reason: Hypoglycemia Guaifenesin (Mucinex) 1,200 mg PO BID [facility] Last Admin: 12/30/19 09:05 Dose: 1,200 mg Documented by: Ibuprofen (Motrin) 600 mg PO Q6H PRN PRN PRN Reason: Pain (1-10) or Fever Last Admin: 12/30/19 06:23 Dose: 600 mg Documented by: Lisinopril (Zestril) 20 mg PO DAILY [facility] Last Admin: 12/30/19 09:05 Dose: 20 mg Documented by: Metoprolol Tartrate (Lopressor (Beta Ruba)) 75 mg PO BID [facility] Last Admin: 12/30/19 09:05 Dose: 75 mg Documented by: Nitroglycerin (Nitrostat) 0.4 mg SUBLINGUAL Q5M PRN PRN Reason: CARDIAC/CHEST PAIN Nortriptyline HCl (Pamelor) 25 mg PO QHS [facility] Ondansetron HCl (Zofran) 4 mg IV Q8H PRN PRN PRN Reason: NAUSEA/VOMITING Pantoprazole Sodium (Protonix) 40 mg PO DAILY [facility] Last Admin: 12/30/19 09:05 Dose: 40 mg Documented by: Sodium Chloride () 10 - 40 ml IV UD PRN PRN Reason: SALINE FLUSH Last Admin: 12/28/19 21:49 Dose: 10 ml Documented by: Tamsulosin HCl (Flomax) 0.4 mg PO QHS [facility] Tolterodine Tartrate (Detrol La) 2 mg PO DAILY [facility] Last Admin: 12/30/19 09:05 Dose: 2 mg Documented by: Medical Necessity - Tobacco Use Smoking Status: Never smoker Tobacco Use: Non-smoker Route of nutrition/ use of supplements: [] Nutritional Intake: [] IV Site: [] Silva Catheter: [] - Assessment/Plan Antibiotics: [] Assessment/Plan: [] covid - feeling better, sats improved. D-dimer mildly elevated. LDH, CK, ferritin, and CRP high. PCT negative. Discharge home today. Recommend quarantine at home for 2 weeks from when symptoms started. improving. Will follow as needed, d/w nursing.
--- NOTE | 2019-12-31 15:53 | CASEMGMT ---
TOOTIE ALONZO Discharge Follow-up Phone Call: RADHA: Vincenzo Strata: 3 Call Date: 12/31/19 Discharge Date: 12/30/19 Time of Call: 1550 Duration: 3 min Admitting Diagnosis: Pneumonia, covid TOOTIE ALONZO completed follow-up phone call after recent hospitalization. Patient states that he is doing better. Patient had no questions regarding discharge instructions. Patient was able to roller picker prescriptions without any issues. Patient is continuing to self isolate at home. Patient has follow-up appointment with Dr. Lopez on 01/13
== END 2019-12-30 15:20 | disposition home or self-care (01) | DRG 871 ==
LOC: ED 17:08 → ICU 18:51
PROVIDERS: Internal Medicine Infectious Disease; Admitting Provider Student in an Organized Health Care Education/Training Program; Emergency Provider Student in an Organized Health Care Education/Training Program; PCP Family Medicine; Visit Provider Internal Medicine
DX: A41.89 Other specified sepsis (principal); U07.1 COVID-19; J12.0 Adenoviral pneumonia; I48.0 Paroxysmal atrial fibrillation; I25.10 Atherosclerotic heart disease of native coronary artery without angina pectoris; E11.51 Type 2 diabetes mellitus with diabetic peripheral angiopathy without gangrene; E78.00 Pure hypercholesterolemia, unspecified; I11.9 Hypertensive heart disease without heart failure; Z95.5 Presence of coronary angioplasty implant and graft; Z88.0 Allergy status to penicillin; Z79.02 Long term (current) use of antithrombotics/antiplatelets; Z79.82 Long term (current) use of aspirin; Z79.84 Long term (current) use of oral hypoglycemic drugs; Z79.899 Other long term (current) drug therapy
CPT/HCPCS: 71045; 71275; 80048; 80053; 80076; 82550; 82728; 82962; 83605; 83615; 83735; 83880; 84145; 84484; 85025; 85379; 85610; 86140; 86900; 86901; 87040; 87449; 87633; 87635; 93005; 94667; 97802; 97803; 99285; J7030; J7040; J7050; Q9967; A4216; U0003

== ENCOUNTER → 2020-01-19 10:44 | Outpatient (CLI) | payer MEDICARE, OTHER, SELFPAY ==
[2019-12-28 20:54] VITALS: BMI 34.5
[2020-01-19 12:26] LABS: Absolute Lymphocyte Count 1.96 X10^3/uL (0.83-4.51); Absolute Neutrophil Count 4.2 X10^3/uL (2.0-7.7); Basophil# 0.05 X10^3/uL; Basophil% 0.7 % (0-1); Eosinophil# 0.39 X10^3/uL; Eosinophils% 5.3 % (0-5); Hematocrit 48.1 % (40-54); Hemoglobin 15.1 g/dL (13.0-16.5); Lymphocyte # 1.96 X10^3/ul (4.0); Lymphocyte % 26.5 % (19-41); Mean Corp Hgb Conc 31.4 g/dL (32-36); Mean Corpuscular Hgb 31.9 pg (27.0-32.0); Mean Corpuscular Volume 101.7 fL (80-94); Monocyte# 0.77 X10^3/uL; Monocyte% 10.4 % (0-10); NRBC Flagged by Analyzer 0 % (0-5); Neutrophil # 4.22 X10^3/uL (2.7-7.7); Platelet Count 313 K/mm3 (150-450); RBC Distribution Width CV 12.9 % (11.6-14.6); RBC Distribution Width SD 48.2 fl (35.1-43.9); Red Blood Count 4.73 M/mm3 (4.6-6.2); White Blood Count 7.4 K/mm3 (4.4-11.0)
[2020-01-19 12:48] LABS: Vitamin B12 466 pg/mL (211-911); Vitamin D,25 Hydroxy 86.6 ng/mL
[2020-01-19 13:12] LABS: ALB/GLOB Ratio 0.6 RATIO (0.9-2.4); AST(SGOT) 38 U/L (15-37); Alanine Aminotransfer ALT/SGPT 41 U/L (16-61); Albumin, Serum 2.9 g/dL (3.2-5.0); Alkaline Phosphatase 99 U/L (45-117); Anion Gap 4 (5-15); BUN 14 mg/dL (7-18); BUN/Creat Ratio 9.2 RATIO (10-20); CPK Total, Creatine Kinase 182 U/L (39-308); Calcium,Total 8.8 mg/dL (8.5-10.1); Chloride 103 mmol/L (98-107); Creatinine, Serum 1.53 mg/dL (0.70-1.30); EST Glomerular Filtration Rate 48 mL/min (>60); Est Glom Filt Rate - Afr Amer 58 mL/min (>60); Globulin 5.1 g/dL (2.2-4.2); Glucose 280 mg/dL (74-106); Potassium 4.3 mmol/L (3.5-5.1); Sodium Level 135 mmol/L (136-145); Thyroid Stim Hormone (TSH) 3.48 uIU/mL (0.358-3.74)
== END ==
PROVIDERS: PCP Family Medicine; Referring Provider Family Medicine; Visit Provider Family Medicine
DX: R53.83 Other fatigue (principal); R74.8 Abnormal levels of other serum enzymes
CPT/HCPCS: 36415; 80053; 82306; 82550; 82607; 84443; 85025

== ENCOUNTER → 2020-03-08 15:58 | Outpatient (CLI) | payer MEDICARE, OTHER, SELFPAY ==
[2019-12-28 20:54] VITALS: BMI 34.5
[2020-03-08 17:19] LABS: PSA,Total- Diagnostic 0.75 ng/mL (0.0-4.0)
== END ==
PROVIDERS: PCP Family Medicine; Referring Provider Urology; Visit Provider Urology
DX: N40.1 Benign prostatic hyperplasia with lower urinary tract symptoms (principal)
CPT/HCPCS: 36415; 84153

== ENCOUNTER → 2020-03-15 10:50 | Outpatient (CLI) | payer MEDICARE, OTHER, SELFPAY ==
[2019-12-28 20:54] VITALS: BMI 34.5
== END ==
PROVIDERS: PCP Family Medicine; Referring Provider Internal Medicine Cardiovascular Disease; Visit Provider Internal Medicine Cardiovascular Disease
DX: U07.1 COVID-19 (principal)
CPT/HCPCS: 87635; C9803; U0003

== ENCOUNTER → 2020-05-17 08:44 | Outpatient (CLI) | payer MEDICARE, OTHER, SELFPAY ==
[2020-04-20 14:45] VITALS: BMI 38.6
--- NOTE | 2020-05-17 08:46 | ECHOD_ITS ---
Reason For Study: CAD Procedure This was a 2D Doppler, Color Flow transthoracic echocardiogram. The study was technically difficult. Exam performed in department. Left Ventricle Normal LV size. Left ventricular systolic function is normal. The estimated ejection fraction is 65 %. No evidence for diastolic dysfunction. No regional wall motion abnormalities noted. Right Ventricle Normal RV size. Normal systolic function. Atria The left atrium is mildly enlarged. Normal right atrium. No doppler evidence for ASD. Mitral Valve The mitral papillary muscle appears thickened and/or calcified. Mild focal mitral valve calcification of the anterior leaflet. Trivial mitral valve insufficiency. Tricuspid Valve Normal tricuspid valve. Trivial tricuspid valve insufficiency. Right ventricular systolic pressure estimated to be 23 mmHg. Aortic Valve Trisinus/trileaflet aortic valve. Mild focal aortic valve calcification. Pulmonic Valve The pulmonic valve is not well visualized. Trivial pulmonic valve insufficiency. Great Vessels Normal sized aortic root. Calcified aortic root. Pericardium/Pleural No pericardial effusion. MMode/2D Measurements & Calculations LVIDd: 3.9 cm IVSd: 1.0 cm Ao root diam: 3.2 cm LVIDs: 2.1 cm LVPWd: 1.0 cm RVDd: 2.7 cm FS: 45.6 % LAV(MOD-bp): 29.0 ml LA A4 area: 14.8 cm2 LA dimension(2D): 4.3 cm LAV(MOD-bp) Indexed: 14.5 ml/m2 LAV(MOD-sp2): 20.5 ml LAV(MOD-sp4): 39.6 ml RA A4 area: 9.6 cm2 Doppler Measurements & Calculations MV E max efren: 60.7 cm/sec Lat Peak E' Efren: 5.6 cm/sec Med Peak E' Efren: 5.9 cm/sec MV A max efren: 113.3 cm/sec E/E' lat: 10.8 E/E' med: 10.3 MV E/A: 0.54 Ao V2 max: 119.6 cm/sec LV V1 max: 100.1 cm/sec PA V2 max: 109.6 cm/sec Ao max P.7 mmHg LV V1 max P.0 mmHg TR max efren: 220.5 cm/sec TR max P.5 mmHg Interpretation Summary The study was technically difficult. Left ventricular systolic function is normal. The estimated ejection fraction is 65 %. The left atrium is mildly enlarged. The mitral papillary muscle appears thickened and/or calcified. Mild focal mitral valve calcification of the anterior leaflet. Trivial mitral valve insufficiency. Trivial tricuspid valve insufficiency. Mild focal aortic valve calcification. Trivial pulmonic valve insufficiency. Calcified aortic root. Right ventricular systolic pressure estimated to be 23 mmHg. No evidence for diastolic dysfunction. Ordering Physician: Connor Acevedo Referring Physician: Connor Kohli Performed By: Ce Balderrama RDCS
== END ==
PROVIDERS: PCP Family Medicine; Referring Provider Internal Medicine Cardiovascular Disease; Visit Provider Internal Medicine Cardiovascular Disease
DX: I25.10 Atherosclerotic heart disease of native coronary artery without angina pectoris (principal); I48.0 Paroxysmal atrial fibrillation; I10 Essential (primary) hypertension; E78.00 Pure hypercholesterolemia, unspecified; Z95.5 Presence of coronary angioplasty implant and graft
CPT/HCPCS: 93306

== ENCOUNTER → 2020-06-28 13:02 | Outpatient (CLI) | payer MEDICARE, OTHER, SELFPAY ==
[2019-12-28 20:54] VITALS: BMI 34.5
[2020-04-20 14:45] VITALS: BMI 38.6
--- NOTE | 2020-06-28 13:08 | CT_ITS ---
STUDY: CT CHEST WITHOUT CONTRAST REASON FOR EXAM: Male, 70 years old. 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 Hi-Res Protocol. RADIATION DOSAGE (If Supplied By Facility): CTDIvol = ( 14.80 ) mGy, DLP = ( 443.64 ) mGycm TECHNIQUE: Transaxial imaging was performed without the administration of intravenous contrast material. Multiplanar coronal and sagittal images were reformatted. Individualized dose optimization techniques were used for this CT. COMPARISON: Comparison is made with prior study dated 02/02/2013. FINDINGS: Minimal degree of increase in linear markings at the lung bases suggestive of scarring. This is unchanged. There is no demonstrated pleural abnormality. Normal heart and pericardium. There are calcifications of the coronary arteries. There are multiple small lymph nodes within the mediastinum, which are normal in size and morphology most compatible with reactive lymph hyperplasia. Normal hilar regions. Normal unenhanced pulmonary arteries. Normal aorta arch and descending thoracic aorta. There are degenerative changes of the thoracic spine. There is no demonstrated abnormality of the visualized upper abdomen. CT/Chest without Contrast IMPRESSION: Stable mild degree of increased linear markings at the lung bases suggestive of scarring. Electronically Signed: Eusebio Abdalla, at 9:00 EST , Service support ,
== END ==
PROVIDERS: PCP Family Medicine; Referring Provider Internal Medicine Pulmonary Disease; Visit Provider Internal Medicine Pulmonary Disease
DX: R05 Cough (principal)
CPT/HCPCS: 71250

== ENCOUNTER → 2020-10-18 07:41 | Outpatient (CLI) | payer MEDICARE, OTHER, SELFPAY ==
[2020-04-20 14:45] VITALS: BMI 38.6
[2020-10-18 08:57] LABS: ALB/GLOB Ratio 0.8 RATIO (0.9-2.4); AST(SGOT) 44 U/L (15-37); Alanine Aminotransfer ALT/SGPT 53 U/L (16-61); Albumin, Serum 3.4 g/dL (3.2-5.0); Alkaline Phosphatase 99 U/L (45-117); Anion Gap 5 (5-15); BUN 12 mg/dL (7-18); BUN/Creat Ratio 8.5 RATIO (10-20); Calcium,Total 9.1 mg/dL (8.5-10.1); Chloride 103 mmol/L (98-107); Creatinine, Serum 1.42 mg/dL (0.70-1.30); EST Glomerular Filtration Rate 52 mL/min (>60); Est Glom Filt Rate - Afr Amer 63 mL/min (>60); Globulin 4.4 g/dL (2.2-4.2); Glucose 206 mg/dL (74-106); Protein, Total 7.8 g/dL (6.4-8.2); Sodium Level 135 mmol/L (136-145); Thyroid Stim Hormone (TSH) 2.96 uIU/mL (0.358-3.74)
[2020-10-18 11:59] LABS: Vitamin D,25 Hydroxy 61.9 ng/mL
[2020-10-19 09:56] LABS: DHEA Sulfate 61.7 ug/dL (30.9-295.6)
== END ==
PROVIDERS: PCP Family Medicine; Referring Provider Internal Medicine Endocrinology, Diabetes & Metabolism; Visit Provider Internal Medicine Endocrinology, Diabetes & Metabolism
DX: E04.9 Nontoxic goiter, unspecified (principal); E55.9 Vitamin D deficiency, unspecified
CPT/HCPCS: 36415; 80053; 82306; 82627; 84443; 82626

== ENCOUNTER → 2020-10-31 06:24 | Outpatient (CLI) | payer MEDICARE, OTHER, SELFPAY ==
[2020-10-26 13:21] VITALS: BMI 38.8
[2020-10-31 08:07] LABS: AST(SGOT) 26 U/L (15-37); Alanine Aminotransfer ALT/SGPT 38 U/L (16-61); Albumin, Serum 3.2 g/dL (3.2-5.0); Alkaline Phosphatase 85 U/L (45-117); Bilirubin, Direct 0.09 mg/dL (0.00-0.30); Cholesterol 170 mg/dL (200); Globulin 3.8 g/dL (2.2-4.2); High Density Lipoprotein 51 mg/dL; Triglycerides 137 mg/dL; Very Low Density Lipoprotein 27 mg/dL (5-40)
== END ==
PROVIDERS: PCP Family Medicine; Referring Provider Internal Medicine Cardiovascular Disease; Visit Provider Internal Medicine Cardiovascular Disease
DX: E78.00 Pure hypercholesterolemia, unspecified (principal)
CPT/HCPCS: 36415; 80061; 80076

== ENCOUNTER → 2021-04-24 08:11 | Outpatient (CLI) | payer MEDICARE, OTHER, SELFPAY ==
[2021-04-24 09:37] LABS: AST(SGOT) 39 U/L (15-37); Alanine Aminotransfer ALT/SGPT 50 U/L (16-61); Alkaline Phosphatase 92 U/L (45-117); Bilirubin, Direct 0.16 mg/dL (0.00-0.30); Cholesterol 158 mg/dL (200); Globulin 4.1 g/dL (2.2-4.2); High Density Lipoprotein 49 mg/dL; PSA,Total - Annual Screen 0.58 ng/mL (0.00-4.00); Protein, Total 7.1 g/dL (6.4-8.2); Triglycerides 143 mg/dL; Very Low Density Lipoprotein 29 mg/dL (5-40)
== END ==
PROVIDERS: Internal Medicine Cardiovascular Disease; PCP Family Medicine; Referring Provider Nurse Practitioner Adult Health; Visit Provider Nurse Practitioner Adult Health
DX: Z12.5 Encounter for screening for malignant neoplasm of prostate (principal); E78.00 Pure hypercholesterolemia, unspecified
CPT/HCPCS: 36415; 80061; 80076; 84153; G0103

== ENCOUNTER → 2021-10-11 | Outpatient (CLI) | payer MEDICARE, OTHER, SELFPAY ==
[2021-10-11 15:38] LABS: Vitamin D,25 Hydroxy 62.4 ng/mL
[2021-10-11 15:50] LABS: ALB/GLOB Ratio 0.8 RATIO (0.9-2.4); AST(SGOT) 25 U/L (15-37); Alanine Aminotransfer ALT/SGPT 38 U/L (16-61); Albumin, Serum 3.2 g/dL (3.2-5.0); Alkaline Phosphatase 88 U/L (45-117); Anion Gap 4 (5-15); BUN 12 mg/dL (7-18); Calcium,Total 8.7 mg/dL (8.5-10.1); Chloride 99 mmol/L (98-107); Creatinine, Serum 1.33 mg/dL (0.70-1.30); EST Glomerular Filtration Rate 56 mL/min (>60); Est Glom Filt Rate - Afr Amer 68 mL/min (>60); Glucose 335 mg/dL (74-106); Potassium 3.9 mmol/L (3.5-5.1); Protein, Total 7.2 g/dL (6.4-8.2); Sodium Level 133 mmol/L (136-145); Thyroid Stim Hormone (TSH) 4.21 uIU/mL (0.358-3.74)
[2021-10-13 12:47] LABS: DHEA Sulfate 53.9 ug/dL (30.9-295.6)
== END | disposition home or self-care (01) ==
LOC: MTLAB 11:02
PROVIDERS: PCP Family Medicine; Referring Provider Internal Medicine Endocrinology, Diabetes & Metabolism; Visit Provider Internal Medicine Endocrinology, Diabetes & Metabolism
DX: E55.9 Vitamin D deficiency, unspecified (principal); E27.49 Other adrenocortical insufficiency; E04.9 Nontoxic goiter, unspecified
CPT/HCPCS: 36415; 80053; 82306; 82627; 84443; 82626

== ENCOUNTER → 2021-10-26 | Outpatient (CLI) | payer MEDICARE, OTHER, SELFPAY | END | disposition home or self-care (01) | LOC: LABSPEC 15:06 | PROVIDERS: PCP Family Medicine; Visit Provider Dermatology | DX: L60.9 Nail disorder, unspecified (principal) | CPT/HCPCS: 87077; 87101; 87106; 87107 ==

== ENCOUNTER → 2021-10-31 | Outpatient (CLI) | payer MEDICARE, OTHER, SELFPAY ==
[2021-10-31 16:06] LABS: Anion Gap 6 (5-15); BUN 12 mg/dL (7-18); BUN/Creat Ratio 9.4 RATIO (10-20); Calcium,Total 8.9 mg/dL (8.5-10.1); Chloride 103 mmol/L (98-107); Creatinine, Serum 1.27 mg/dL (0.70-1.30); EST Glomerular Filtration Rate 59 mL/min (>60); Est Glom Filt Rate - Afr Amer 72 mL/min (>60); Glucose 225 mg/dL (74-106); Potassium 3.9 mmol/L (3.5-5.1); Sodium Level 135 mmol/L (136-145)
== END | disposition home or self-care (01) ==
LOC: LAB 14:22
PROVIDERS: PCP Family Medicine; Visit Provider Physician Assistant
DX: E27.49 Other adrenocortical insufficiency (principal)
CPT/HCPCS: 36415; 80048

== ENCOUNTER → 2021-11-23 | Outpatient (CLI) | payer MEDICARE, OTHER, SELFPAY ==
[2021-11-23 13:51] LABS: Anion Gap 3 (5-15); BUN 13 mg/dL (7-18); BUN/Creat Ratio 9.8 RATIO (10-20); Calcium,Total 9.1 mg/dL (8.5-10.1); Chloride 103 mmol/L (98-107); Creatinine, Serum 1.32 mg/dL (0.70-1.30); EST Glomerular Filtration Rate 57 mL/min (>60); Est Glom Filt Rate - Afr Amer 69 mL/min (>60); Glucose 255 mg/dL (74-106); Potassium 3.9 mmol/L (3.5-5.1); Sodium Level 135 mmol/L (136-145); Thyroid Stim Hormone (TSH) 2.83 uIU/mL (0.358-3.74)
[2021-11-28 15:49] LABS: Anti-Thyroglobulin AB < 1.0 IU/mL (0.0-0.9); Thyroglobulin, Serum Qt. 8.5 ng/mL (1.4-29.2); Thyroid Peroxidase AB < 8 IU/mL (0-34)
== END | disposition home or self-care (01) ==
LOC: LAB 11:48
PROVIDERS: PCP Family Medicine; Referring Provider Physician Assistant; Visit Provider Physician Assistant
DX: E27.49 Other adrenocortical insufficiency (principal); R94.6 Abnormal results of thyroid function studies
CPT/HCPCS: 36415; 80048; 84432; 84443; 86376; 86800

== ENCOUNTER → 2022-01-01 | Outpatient (CLI) | payer MEDICARE, OTHER, SELFPAY ==
[2022-01-01 17:33] LABS: Absolute Lymphocyte Count 2.75 X10^3/uL (0.83-4.51); Absolute Neutrophil Count 3.4 X10^3/uL (2.0-7.7); Basophil# 0.04 X10^3/uL; Basophil% 0.5 % (0-1); Eosinophil# 0.29 X10^3/uL; Eosinophils% 3.9 % (0-5); Hematocrit 44.8 % (40-54); Hemoglobin 15.5 g/dL (13.0-16.5); Lymphocyte # 2.75 X10^3/ul (0.83-4.51); Lymphocyte % 36.9 % (19-41); Mean Corp Hgb Conc 34.6 g/dL (32-36); Mean Corpuscular Volume 92.6 fL (80-94); Mean Platelet Vol. 10.1 fl (6.2-12.0); Monocyte# 0.99 X10^3/uL; Monocyte% 13.3 % (0-10); NRBC Flagged by Analyzer 0 % (0-5); Neutrophil # 3.38 X10^3/uL (2.7-7.7); Neutrophil % 45.3 % (47-70); Platelet Count 216 K/mm3 (150-450); RBC Distribution Width CV 12.4 % (11.6-14.6); RBC Distribution Width SD 42.3 fl (35.1-43.9); Red Blood Count 4.84 M/mm3 (4.6-6.2); White Blood Count 7.5 K/mm3 (4.4-11.0)
[2022-01-01 18:00] LABS: AST(SGOT) 31 U/L (15-37); Alanine Aminotransfer ALT/SGPT 38 U/L (16-61); Albumin, Serum 3.4 g/dL (3.2-5.0); Alkaline Phosphatase 79 U/L (45-117); Protein, Total 7.4 g/dL (6.4-8.2); Rheumatoid Factor < 10.0 IU/mL (<15)
[2022-01-01 18:05] LABS: Erythrocyte Sedimentation Rate 27 mm/hr (0-20)
[2022-01-03 12:08] LABS: Anti-Scleroderma-70 AB <0.2 AI (0.0-0.9); SJOGREN'S Anti-SS-A test < 0.2 AI (0.0-0.9); SJOGREN'S Anti-SS-B test < 0.2 AI (0.0-0.9)
[2022-01-04 00:07] LABS: Angiotensin Convert Enzyme 63 U/L (14-82); Cytoplasmic Ab (C-ANCA) <1:20 titer (Neg:<1:20)
[2022-01-04 12:10] LABS: ANTINUCLEAR ANTIBODIES DIRECT Negative (Negative); Anti-dsDNA Ab 1 IU/mL (0-9)
[2022-01-04 15:52] LABS: Anti-Smooth Muscle ABS 7 Units (0-19); CCP IgG Antibodies 19 units (0-19); Perinuclear Ab (P-ANCA) <1:20 titer (Neg:<1:20)
== END | disposition home or self-care (01) ==
PROVIDERS: PCP Family Medicine; Referring Provider Internal Medicine Pulmonary Disease; Visit Provider Internal Medicine Pulmonary Disease
DX: R05.9 Cough, unspecified (principal); R09.02 Hypoxemia; J45.909 Unspecified asthma, uncomplicated
CPT/HCPCS: 36415; 80076; 82164; 83516; 85025; 85652; 86038; 86140; 86200; 86225; 86235; 86256; 86431

== ENCOUNTER → 2022-01-29 | Outpatient (CLI) | payer MEDICARE, OTHER, SELFPAY ==
--- NOTE | 2022-01-29 09:10 | RAD_ITS ---
INDICATION: Dyspnea EXAMINATION/TECHNIQUE: X-RAY - XR Chest 2 Views COMPARISON: Chest radiograph from 12/28/2019 FINDINGS: Support devices: None. No focal consolidations, effusions, or sizable pneumothorax. Cardiomediastinal silhouette is within normal limits. Partially visualized lumbar fusion surgical hardware. No acute findings in the bones or soft tissues. RAD/Chest PA and Lateral IMPRESSION: No radiographic evidence of acute cardiopulmonary disease. Electronically Signed: Sorin Rosales, at 13:08 EDT ,
[2022-01-29 10:06] LABS: Absolute Lymphocyte Count 2.32 X10^3/uL (0.83-4.51); Absolute Neutrophil Count 4.5 X10^3/uL (2.0-7.7); Basophil# 0.05 X10^3/uL; Basophil% 0.6 % (0-1); Eosinophil# 0.26 X10^3/uL; Eosinophils% 3.2 % (0-5); Hematocrit 48.3 % (40-54); Hemoglobin 15.9 g/dL (13.0-16.5); Lymphocyte # 2.32 X10^3/ul (0.83-4.51); Lymphocyte % 28.9 % (19-41); Mean Corp Hgb Conc 32.9 g/dL (32-36); Mean Corpuscular Hgb 31.9 pg (27.0-32.0); Mean Corpuscular Volume 96.8 fL (80-94); Mean Platelet Vol. 10.3 fl (6.2-12.0); Monocyte# 0.85 X10^3/uL; Monocyte% 10.6 % (0-10); NRBC Flagged by Analyzer 0 % (0-5); Neutrophil # 4.54 X10^3/uL (2.7-7.7); Neutrophil % 56.5 % (47-70); Platelet Count 198 K/mm3 (150-450); RBC Distribution Width CV 12.9 % (11.6-14.6); RBC Distribution Width SD 46.3 fl (35.1-43.9); Red Blood Count 4.99 M/mm3 (4.6-6.2)
[2022-01-29 10:30] LABS: BNP,B-Type NATRIURETIC PEPTIDE 9.6 pg/mL (0-100)
[2022-01-29 10:33] LABS: Anion Gap 5 (5-15); BUN 17 mg/dL (7-18); Calcium,Total 8.9 mg/dL (8.5-10.1); Chloride 105 mmol/L (98-107); Creatinine, Serum 1.55 mg/dL (0.70-1.30); EST Glomerular Filtration Rate 47 mL/min (>60); Est Glom Filt Rate - Afr Amer 57 mL/min (>60); Glucose 334 mg/dL (74-106); Potassium 4.2 mmol/L (3.5-5.1); Sodium Level 138 mmol/L (136-145)
== END | disposition home or self-care (01) ==
PROVIDERS: Nurse Practitioner Gerontology; PCP Family Medicine; Visit Provider Internal Medicine Cardiovascular Disease
DX: R06.09 Other forms of dyspnea (principal); R53.83 Other fatigue
CPT/HCPCS: 36415; 71046; 80048; 83880; 85025

== ENCOUNTER → 2022-02-15 | Outpatient (CLI) | payer MEDICARE, OTHER, SELFPAY ==
--- NOTE | 2022-02-15 06:47 | ECHOCS_ITS ---
Reason For Study: DYSPNEA/SOB Procedure This was a 2D Doppler, Color Flow transthoracic echocardiogram. The study was technically difficult. Contrast injection was performed. Exam performed in department. Left Ventricle Based upon the 2D echocardiographic images obtained there appears to be grossly normal left ventricular size, wall motion, and systolic function. The estimated ejection fraction is 55 %. No evidence for diastolic dysfunction. Right Ventricle Normal RV size. Normal systolic function. Atria Normal left atrium. Normal right atrium. No doppler evidence for ASD. Mitral Valve There is no mitral annular calcification. Mild focal mitral valve calcification of the anterior leaflet. Trivial mitral valve insufficiency. Tricuspid Valve Normal tricuspid valve. Trivial tricuspid valve insufficiency. Right ventricular systolic pressure estimated to be 29 mmHg. Aortic Valve Trisinus/trileaflet aortic valve. Normal aortic valve. Pulmonic Valve The pulmonic valve is not well visualized. Trivial pulmonic valve insufficiency. Great Vessels Normal sized aortic root. Pericardium/Pleural No pericardial effusion. Medication Diluted definity 3ml given slow IV push to enhance endocardial definition. MMode/2D Measurements & Calculations LVIDd: 4.3 cm IVSd: 1.0 cm Ao root diam: 3.3 cm LVIDs: 3.0 cm LVPWd: 0.92 cm RVDd: 3.2 cm FS: 31.3 % LAV(MOD-bp): 33.6 ml LVAd ap4: 29.6 cm2 SV(MOD-sp4): 55.0 ml LAV(MOD-bp) Indexed: 17.2 ml/m2 LVLd ap4: 7.7 cm LAV(MOD-sp2): 34.9 ml EDV(MOD-sp4): 95.3 ml LAV(MOD-sp4): 31.4 ml EDV(sp4-el): 96.8 ml LVAs ap4: 18.0 cm2 LVLs ap4: 6.8 cm ESV(MOD-sp4): 40.4 ml ESV(sp4-el): 40.4 ml EF(MOD-sp4): 57.6 % EF(sp4-el): 58.2 % SV(sp4-el): 56.3 ml LA A4 area: 14.1 cm2 LA dimension(2D): 3.3 cm RA A4 area: 12.9 cm2 Time Measurements MV dec time: 0.22 sec Doppler Measurements & Calculations MV E max efren: 71.8 cm/sec Lat Peak E' Efren: 8.5 cm/sec Med Peak E' Efren: 8.2 cm/sec MV A max efren: 94.9 cm/sec E/E' lat: 8.5 E/E' med: 8.7 MV E/A: 0.76 Ao V2 max: 99.8 cm/sec LV V1 max: 85.4 cm/sec PA V2 max: 79.3 cm/sec Ao max P.0 mmHg LV V1 max P.9 mmHg TR max efren: 256.7 cm/sec TR max P.4 mmHg ECHO/Echo Complete W/ Contrast Interpretation Summary The study was technically difficult. Contrast injection was performed. Based upon the 2D echocardiographic images obtained there appears to be grossly normal left ventricular size, wall motion, and systolic function. The estimated ejection fraction is 55 %. Mild focal mitral valve calcification of the anterior leaflet. Trivial mitral valve insufficiency. Trivial tricuspid valve insufficiency. Trivial pulmonic valve insufficiency. Right ventricular systolic pressure estimated to be 29 mmHg. No evidence for diastolic dysfunction. Ordering Physician: Jo Mckeon Referring Physician: CONNOR COTA Performed By: Sindi Sweeney RDCS
--- NOTE | 2022-02-15 13:42 | STRESSREP_ITS ---
Stress Test Report Date: 02-15-2022 Procedure: Pharmacologic stress nuclear imaging study Indications: Shortness of breath/dyspnea on exertion; fatigue; CAD; status post PCI; PAF; peripheral vascular disease; status post COVID-19 Consent: Per the patient Procedure: The patient underwent pharmacologic (Regadenoson 0.4mg ) evaluation with a peak heart rate of 77 beats per minute (52%predicted maximal heart rate) and a peak blood pressure of 118/80 mmHg. The baseline ECG demonstrated normal sinus rhythm. The peak pharmacologic ECG demonstrated no obvious ECG changes. There were no cardiac dysrhythmias pretest, during pharmacologic infusion, or recovery. There was no complaint of chest discomfort during pharmacologic infusion or recovery. The examination was discontinued secondary to completion of protocol. Impression: 1. Pharmacologic (Regadenoson) evaluation 2. Peak pharmacologic ECG with no obvious ECG changes. 3. There were no cardiac dysrhythmias pretest, during pharmacologic infusion, or recovery. 4. Nuclear images pending Myocardial perfusion imaging study: Technique: The patient was injected with 14.8 millicuries of technetium 99m Cardiolite and subsequently rest SPECT Cardiolite nuclear imaging was obtained in the horizontal long, vertical long, and short axis views. The patient underwent pharmacologic (Regadenoson) evaluation with a peak heart rate of 77 beats per minute (52% percent predicted maximal heart rate) and a peak blood pressure of 118/80 mmHg. The patient was injected with 44.5 millicuries of technetium 99m Cardiolite and subsequently stress SPECT Cardiolite nuclear imaging was obtained in the horizontal long, vertical long, and short axis views. A gated Cardiolite study at peak stress was obtained. Interpretation: Rest and stress SPECT Cardiolite nuclear imaging status post realignment, normalization, and attenuation correction demonstrate relative uniform tracer uptake and myocardial perfusion appearing within normal limits. There is end systolic thickening and brightening. The gated Cardiolite study demonstrates myocardial thickening and inward wall motion. The reported LVEF is 63%. Impression: 1. Rest and stress SPECT Cardiolite nuclear imaging demonstrate relative uniform tracer uptake and myocardial perfusion appearing within normal limits. 2. The gated Cardiolite study reports an LVEF of 63%. This note was generated with [employer] software. It may contain incorrect words, spelling, and punctuation that were not noted in checking the note before signing.
== END | disposition home or self-care (01) ==
LOC: CVS 06:45
PROVIDERS: PCP Family Medicine; Referring Provider Nurse Practitioner Gerontology; Visit Provider Nurse Practitioner Gerontology
DX: R07.9 Chest pain, unspecified (principal); I25.10 Atherosclerotic heart disease of native coronary artery without angina pectoris; R06.09 Other forms of dyspnea; R53.83 Other fatigue; Z95.5 Presence of coronary angioplasty implant and graft
CPT/HCPCS: 78452; 93017; 93306; A9500; Q9957; A4216; C8929; J2785

== ENCOUNTER → 2022-03-13 | Outpatient (CLI) | payer MEDICARE, OTHER, SELFPAY ==
--- NOTE | 2022-03-13 13:35 | ART_ITS ---
Reason For Study: numbness Procedure A bilateral lower extremity continuous wave Doppler with analog waveform analysis,segmental pressures,and ankle brachial indexes with exercise. Left Segmental Pressures Left brachial= 96mmHg. Left posterior tibial artery = 105mmHg. Left dorsalis pedis artery = 108mmHg. The left dorsalis pedis waveforms are triphasic. The left posterior tibial artery waveforms are triphasic. Right Segmental Pressures Right brachial= 89mmHg. Right posterior tibial artery = 100mmHg. Right dorsalis pedis artery = 110mmHg. The right dorsalis pedis waveforms are triphasic. The right posterior tibial artery waveforms are triphasic. Indices The right ankle brachial index by the posterior tibial artery is 1.04. The right ankle brachial index by the dorsalis pedis is 1.15. The right post exercise ankle brachial index is 1.27. The left ankle brachial index by the posterior tibial artery is 1.09. The left ankle brachial index by the dorsalis pedis is 1.08. The left post exercise ankle brachial index is 1.12. VL/Lower Ext Art Exam w/ Exercise Interpretation Summary Right ROSE 1.15, normal. Doppler/PVR waveforms of the right leg normal at rest. Right lower extremity exhibits normal response to exercise. Left ROSE 1.09, normal. Doppler/PVR waveforms of the left leg normal at rest. Left lower extremity exhibits normal response to exercise. Ordering Physician: Connor Kohli Performed By: Eric Guevara RVShannen
== END | disposition home or self-care (01) ==
LOC: CVS 13:31
PROVIDERS: PCP Family Medicine; Referring Provider Family Medicine; Visit Provider Family Medicine
DX: I73.9 Peripheral vascular disease, unspecified (principal)
CPT/HCPCS: 93924

== ENCOUNTER → 2022-04-18 | Outpatient (CLI) | payer MEDICARE, OTHER, SELFPAY ==
[2022-04-18 15:34] LABS: Anion Gap 8 (5-15); BUN 17 mg/dL (7-18); BUN/Creat Ratio 12.9 RATIO (10-20); Calcium,Total 9.1 mg/dL (8.5-10.1); Chloride 104 mmol/L (98-107); Cholesterol 149 mg/dL (200); Creatinine, Serum 1.32 mg/dL (0.70-1.30); EST Glomerular Filtration Rate 57 mL/min (>60); Est Glom Filt Rate - Afr Amer 69 mL/min (>60); Glucose 144 mg/dL (74-106); High Density Lipoprotein 48 mg/dL; Sodium Level 135 mmol/L (136-145); Triglycerides 129 mg/dL; Very Low Density Lipoprotein 26 mg/dL (5-40)
[2022-04-18 15:39] LABS: Microalbumin,Random Urine 5.9 mg/L (NO RANGE EST.); Microalbumin:Creatinine Ratio 6.9 mg/g CRE (<30 mg/g CRE)
== END | disposition home or self-care (01) ==
PROVIDERS: PCP Family Medicine; Visit Provider Family Medicine
DX: E11.22 Type 2 diabetes mellitus with diabetic chronic kidney disease (principal); N18.30 Chronic kidney disease, stage 3 unspecified
CPT/HCPCS: 36415; 80048; 80061; 82043; 82570

== ENCOUNTER → 2022-05-16 | Outpatient (CLI) | payer MEDICARE, OTHER, SELFPAY ==
--- NOTE | 2022-05-16 14:13 | NEURO ---
NCS and/or EMG Patient Report Ordering Doctor: Connor Kohli DATE OF SERVICE: 05/16/22 Deion presents for electrodiagnostic testing of the lower limbs. He reports an intermittent squeezing sensation around the waist. He has intermittent numbness in the legs. Reports a history of spinal fusion. Electrodiagnostic findings: Peroneal motor nerve demonstrates normal distal latency, amplitude and conduction velocity on the right side. Left peroneal motor nerve demonstrates normal distal latency with reduced amplitude and reduced conduction velocity. Tibial motor responses are within normal limits. Prolonged sural latency noted bilaterally. Prolonged right tibial F wave. H reflexes are within normal limits On needle EMG, all muscles tested in the lower limbs showed no evidence of denervation with normal motor unit action potentials Electrodiagnostic impression: This is an abnormal study in the lower limbs 1. Electrodiagnostic findings suggestive of peripheral polyneuropathy, with motor and sensory nerve involvement. 2. There is no electrodiagnostic evidence for lumbosacral radiculopathy.
[2022-05-16 14:50] LABS: CRP 4.83 mg/L (0.0-3.0)
[2022-05-16 15:19] LABS: Erythrocyte Sedimentation Rate 12 mm/hr (0-20)
== END | disposition home or self-care (01) ==
PROVIDERS: Internal Medicine Pulmonary Disease; PCP Family Medicine; Referring Provider Family Medicine; Visit Provider Family Medicine
DX: R05.9 Cough, unspecified (principal); R20.0 Anesthesia of skin
CPT/HCPCS: 36415; 85652; 86140; 95886; 95912

== ENCOUNTER → 2022-05-18 | Outpatient (CLI) | payer MEDICARE, OTHER, SELFPAY ==
--- NOTE | 2022-05-18 16:39 | CT_ITS ---
INDICATION: Chronic cough for 2 years. History of diabetes and hypertension. EXAMINATION: CT CHEST WITHOUT CONTRAST - CT Chest W/O Contrast Injection TECHNIQUE: Helically acquired images were obtained of the chest. A radiation dose optimization technique was used for this scan. IV Contrast dosage and agent: None. COMPARISON: June 28, 2020. FINDINGS: LUNGS, PLEURA AND LARGE AIRWAYS: No masses, consolidation, or edema. No pleural effusion or thickening. No pneumothorax. THYROID: No thyroid lesions. HEART AND PERICARDIUM: Heart size is normal. No pericardial effusion. CORONARY ARTERIES: Marked coronary artery calcifications VESSELS: Thoracic aorta is not dilated. MEDIASTINUM AND CAROL: Nonspecific subcentimeter mediastinal lymphadenopathy. Esophagus is unremarkable. No hiatal hernia. UPPER ABDOMEN: No acute pathology. BONES: Degenerative changes of the thoracic spine. No lytic or blastic lesions are seen. CT/Chest without Contrast IMPRESSION: No acute cardiopulmonary abnormality or major interval change. Electronically Signed: Davidson Zavala DO at 17:10 EST ,
== END | disposition home or self-care (01) ==
LOC: CT 16:37
PROVIDERS: PCP Family Medicine; Visit Provider Internal Medicine Pulmonary Disease
DX: R05.9 Cough, unspecified (principal)
CPT/HCPCS: 71250

== ENCOUNTER → 2022-07-04 | Outpatient (CLI) | payer MEDICARE, OTHER, SELFPAY ==
--- NOTE | 2022-07-04 06:37 | MRI_ITS ---
INDICATION: abnormal nerve coduction study EXAMINATION: MRI - MR Spine Lumbar W/O Contrast TECHNIQUE: Multiplanar and multisequence MR images of the lumbar spine. IV Contrast Dosage and Agent: None. COMPARISON: Lumbar spine radiographs 11/02/2016 and 10/03/2016. FINDINGS: No fracture or acute or aggressive osseous lesions. Status post laminectomy and posterior fusion L3-S1. 8 mm grade 1 anterolisthesis of L5 on S1. Marked disc and facet degeneration at L2-3 with complete loss of disc space and prominent endplate degenerative changes. Chronic postoperative changes in the posterior paraspinal soft tissues at the levels of the fusion including a small amount of chronic appearing fluid between the pedicle screw heads which is not unexpected. Conus terminates at the level of the mid L1 vertebral body with normal contour and signal. Normal arborization of the cauda equina with no compression. At L1-2, mild facet degeneration causes only mild narrowing. At L2-3, disc bulge with underlying vertebral body osteophyte and moderate bilateral facet degeneration causes only mild spinal canal narrowing. Disc and osteophyte extend into and moderately now the bilateral foramina abutting but not definitively compressing the bilateral exiting L3 nerve roots. At L3-4, L4-5, and L5-S1 the spinal canal and foramina are surgically decompressed with no evidence of nerve root impingement. Remainder of the paraspinal soft tissues unremarkable. MRI/Spine Lumbar (Routine) IMPRESSION: Status post laminectomy and posterior fusion L3-S1. Prominent degenerative changes just cephalad to the fusion at L2-3. These might give rise to discogenic pain. Moderate bilateral foraminal narrowing at L2-3 with disc and osteophyte abutting but not definitively compressing the exiting bilateral L3 nerve roots. No other evidence of nerve root impingement. Electronically Signed: Torin Fonseca MD at 7:53 EST Reading Location ID and State: [facility] / [place] Tel , Service support ,
== END | disposition home or self-care (01) ==
PROVIDERS: PCP Family Medicine; Referring Provider Family Medicine; Visit Provider Family Medicine
DX: R94.130 Abnormal response to nerve stimulation, unspecified (principal); Z98.1 Arthrodesis status
CPT/HCPCS: 72148

== ENCOUNTER → 2022-08-06 | Outpatient (CLI) | payer MEDICARE, OTHER, SELFPAY ==
--- NOTE | 2022-08-06 08:00 | RAD_ITS ---
STUDY: X-RAY - ESOPHAGUS (BARIUM SWALLOW) WITH FLUOROSCOPY REASON FOR EXAM: Male, 72 years old. DYSPHAGIA TECHNIQUE: 14 view(s) of the esophagus were obtained following swallowing of barium. FLUOROSCOPY TIME (if supplied): (51 seconds) minutes/seconds COMPARISON: None. FINDINGS: There is no demonstrated esophageal foreign body. There is no demonstrated stricture or mucosal abnormality. Normal gastroesophageal junction, without a demonstrated hiatal hernia. The patient ingested a 12 mm tablet of barium. The tablet is trapped at the gastroesophageal junction. Correlation with endoscopy is recommended. There is atherosclerotic tortuosity of the aortic arch and descending thoracic aorta. Normal visualized pulmonary parenchyma. There are diffuse degenerative changes of the visualized thoracic spine. RAD/Esophagus Dual Contrast IMPRESSION: The patient ingest a 12 mm tablet that barium. The tablet stopped at the gastroesophageal junction. Correlation with endoscopy is recommended. Electronically Signed: Eusebio Abdalla MD at 15:17 EST ,
== END | disposition home or self-care (01) ==
LOC: RAD 07:48
PROVIDERS: PCP Family Medicine; Referring Provider Internal Medicine Gastroenterology; Visit Provider Internal Medicine Gastroenterology
DX: R13.10 Dysphagia, unspecified (principal)
CPT/HCPCS: 74221

== ENCOUNTER → 2022-08-09 | Outpatient (CLI) | payer MEDICARE, OTHER, SELFPAY ==
[2022-08-09 12:47] LABS: Absolute Lymphocyte Count 2.69 X10^3/uL (0.83-4.51); Absolute Neutrophil Count 5.4 X10^3/uL (2.0-7.7); Basophil# 0.06 X10^3/uL; Basophil% 0.6 % (0-1); Eosinophil# 0.47 X10^3/uL; Eosinophils% 4.9 % (0-5); Hematocrit 47.9 % (40-54); Hemoglobin 15.8 g/dL (13.0-16.5); Lymphocyte # 2.69 X10^3/ul (0.83-4.51); Mean Corpuscular Hgb 31.8 pg (27.0-32.0); Mean Corpuscular Volume 96.4 fL (80-94); Mean Platelet Vol. 10.1 fl (6.2-12.0); Monocyte# 1.02 X10^3/uL; Monocyte% 10.6 % (0-10); NRBC Flagged by Analyzer 0 % (0-5); Neutrophil # 5.36 X10^3/uL (2.7-7.7); Neutrophil % 55.7 % (47-70); Platelet Count 213 K/mm3 (150-450); RBC Distribution Width CV 13.3 % (11.6-14.6); RBC Distribution Width SD 47.4 fl (35.1-43.9); Red Blood Count 4.97 M/mm3 (4.6-6.2); White Blood Count 9.6 K/mm3 (4.4-11.0)
[2022-08-09 13:06] LABS: AST(SGOT) 38 U/L (15-37); Alanine Aminotransfer ALT/SGPT 38 U/L (16-61); Albumin, Serum 3.5 g/dL (3.2-5.0); Alkaline Phosphatase 62 U/L (45-117); Bilirubin, Direct 0.15 mg/dL (0.00-0.30); Globulin 3.9 g/dL (2.2-4.2); Protein, Total 7.4 g/dL (6.4-8.2)
[2022-08-12 09:07] LABS: QNTFERON TB Mitogen Value > 10.00 IU/mL (.); QNTFERON TB Nil Value 0.29 IU/mL (.)
[2022-08-12 10:04] LABS: QNTIFERON TB Positive Criteria Negative (Negative)
== END | disposition home or self-care (01) ==
LOC: LAB 12:03
PROVIDERS: PCP Family Medicine; Referring Provider Dermatology; Visit Provider Dermatology
DX: L40.0 Psoriasis vulgaris (principal); L40.8 Other psoriasis; D22.5 Melanocytic nevi of trunk; L82.1 Other seborrheic keratosis; L57.8 Other skin changes due to chronic exposure to nonionizing radiation; Z71.89 Other specified counseling; Z79.899 Other long term (current) drug therapy
CPT/HCPCS: 36415; 80076; 85025; 86480

== ENCOUNTER → 2022-09-28 | Outpatient (CLI) | payer MEDICARE, OTHER, SELFPAY ==
[2022-09-28 18:21] LABS: ALB/GLOB Ratio 0.9 RATIO (0.9-2.4); AST(SGOT) 40 U/L (15-37); Alanine Aminotransfer ALT/SGPT 39 U/L (16-61); Albumin, Serum 3.4 g/dL (3.2-5.0); Alkaline Phosphatase 58 U/L (45-117); Anion Gap 6 (5-15); BUN 13 mg/dL (7-18); BUN/Creat Ratio 10.8 RATIO (10-20); Calcium,Total 8.8 mg/dL (8.5-10.1); Chloride 103 mmol/L (98-107); EST Glomerular Filtration Rate 63 mL/min (>60); Est Glom Filt Rate - Afr Amer 76 mL/min (>60); Globulin 3.6 g/dL (2.2-4.2); Glucose 153 mg/dL (74-106); Potassium 3.4 mmol/L (3.5-5.1); Sodium Level 135 mmol/L (136-145); Thyroid Stim Hormone (TSH) 5.32 uIU/mL (0.358-3.74)
== END | disposition home or self-care (01) ==
LOC: MTLAB 15:15
PROVIDERS: PCP Family Medicine; Referring Provider Internal Medicine Endocrinology, Diabetes & Metabolism; Visit Provider Internal Medicine Endocrinology, Diabetes & Metabolism
DX: E27.49 Other adrenocortical insufficiency (principal); E55.9 Vitamin D deficiency, unspecified; R94.6 Abnormal results of thyroid function studies
CPT/HCPCS: 36415; 80053; 82306; 82627; 84443; 82626

== ENCOUNTER → 2022-10-10 | Outpatient (CLI) | payer MEDICARE, OTHER, SELFPAY ==
[2022-10-10 18:32] LABS: Anion Gap 7 (5-15); BUN 16 mg/dL (7-18); BUN/Creat Ratio 11.6 RATIO (10-20); Calcium,Total 8.8 mg/dL (8.5-10.1); Chloride 107 mmol/L (98-107); Creatinine, Serum 1.38 mg/dL (0.70-1.30); EST Glomerular Filtration Rate 54 mL/min (>60); Est Glom Filt Rate - Afr Amer 65 mL/min (>60); Glucose 191 mg/dL (74-106); Magnesium 1.9 mg/dL (1.6-2.6); Sodium Level 136 mmol/L (136-145)
== END | disposition home or self-care (01) ==
LOC: MTLAB 13:57
PROVIDERS: PCP Family Medicine; Referring Provider Internal Medicine Endocrinology, Diabetes & Metabolism; Visit Provider Internal Medicine Endocrinology, Diabetes & Metabolism
DX: E61.2 Magnesium deficiency (principal)
CPT/HCPCS: 36415; 80048; 83735

== ENCOUNTER → 2022-10-23 | Outpatient (CLI) | payer MEDICARE, OTHER, SELFPAY ==
[2022-10-23 12:49] LABS: AST(SGOT) 37 U/L (15-37); Alanine Aminotransfer ALT/SGPT 41 U/L (16-61); Albumin, Serum 3.2 g/dL (3.2-5.0); Alkaline Phosphatase 52 U/L (45-117); Cholesterol 143 mg/dL (200); Globulin 3.7 g/dL (2.2-4.2); High Density Lipoprotein 49 mg/dL; Protein, Total 6.9 g/dL (6.4-8.2); Triglycerides 98 mg/dL; Very Low Density Lipoprotein 20 mg/dL (5-40)
[2022-10-23 12:53] LABS: Microalbumin,Random Urine 5.6 mg/L (NO RANGE EST.); Microalbumin:Creatinine Ratio 7.1 mg/g CRE (<30 mg/g CRE)
[2022-10-23 13:01] LABS: Hemoglobin A1c 6.8 % (3.8-5.6)
== END | disposition home or self-care (01) ==
LOC: LAB 11:35
PROVIDERS: Internal Medicine Cardiovascular Disease; PCP Family Medicine; Referring Provider Internal Medicine Endocrinology, Diabetes & Metabolism; Visit Provider Internal Medicine Endocrinology, Diabetes & Metabolism
DX: E11.65 Type 2 diabetes mellitus with hyperglycemia (principal)
CPT/HCPCS: 80061; 80076; 82043; 82570; 83036

== ENCOUNTER → 2022-12-03 | Outpatient (CLI) | payer MEDICARE, OTHER, SELFPAY ==
--- NOTE | 2022-12-03 10:21 | RAD_ITS ---
STUDY: X-RAY - LUMBOSACRAL SPINE REASON FOR EXAM: Male, 72 years old. Persistent low back pain TECHNIQUE: 6 view(s) of the lumbosacral spine were obtained. COMPARISON: 07/25/2022 FINDINGS: Stable appearance of surgical hardware at L3 L4 L5 and S1. No hardware complication or failure noted. Normal lumbar lordosis. There is no substantial scoliosis. There is normal alignment of the vertebrae from L1 to L5. There is a surgically stabilized grade 2 spondylolisthesis at L5/S1. There is diffuse demineralization with multi-level endplate spondylosis. There is multi-level degenerative disc disease with multi-level disc space narrowing. Normal bilateral sacral ala, sacroiliac joints, and visualized sacrum. Normal visualized soft tissue structures. No evidence of instability on flexion or extension views, range of motion is limited RAD/L/S Spine Bending Flex/Ext IMPRESSION: Stable degenerative and postsurgical changes in the lumbar spine. No hardware complication or failure, no acute compression fracture, no instability on the flexion or extension views. Stable grade 2 spondylolisthesis at L5/S1 Electronically Signed: Kd Landry MD at 11:08 EDT ,
[2022-12-03 12:43] LABS: Vitamin B12 264 pg/mL (211-911)
[2022-12-03 12:52] LABS: Hematocrit 50.4 % (40-54); Hemoglobin 16.6 g/dL (13.0-16.5); Mean Corp Hgb Conc 32.9 g/dL (32-36); Mean Corpuscular Hgb 32.7 pg (27.0-32.0); Mean Corpuscular Volume 99.2 fL (80-94); Mean Platelet Vol. 10.3 fl (6.2-12.0); Platelet Count 257 K/mm3 (150-450); RBC Distribution Width SD 47.5 fl (35.1-43.9); Red Blood Count 5.08 M/mm3 (4.6-6.2)
[2022-12-03 13:29] LABS: ALB/GLOB Ratio 0.8 RATIO (0.9-2.4); AST(SGOT) 47 U/L (15-37); Alanine Aminotransfer ALT/SGPT 54 U/L (16-61); Albumin, Serum 3.5 g/dL (3.2-5.0); Alkaline Phosphatase 64 U/L (45-117); Anion Gap 8 (5-15); BUN 17 mg/dL (7-18); BUN/Creat Ratio 11.8 RATIO (10-20); Calcium,Total 9.1 mg/dL (8.5-10.1); Chloride 106 mmol/L (98-107); Creatinine, Serum 1.44 mg/dL (0.70-1.30); EST Glomerular Filtration Rate 51 mL/min (>60); Est Glom Filt Rate - Afr Amer 62 mL/min (>60); Globulin 4.2 g/dL (2.2-4.2); Glucose 193 mg/dL (74-106); Potassium 4.3 mmol/L (3.5-5.1); Protein, Total 7.7 g/dL (6.4-8.2); Sodium Level 138 mmol/L (136-145); Thyroid Stim Hormone (TSH) 4.03 uIU/mL (0.358-3.74)
[2022-12-06 15:08] LABS: Free Kappa Light Chains 53.8 mg/L (3.3-19.4); Free Lambda Light Chains 26.1 mg/L (5.7-26.3); Vitamin B1, Thiamine 133.1 nmol/L (66.5-200.0)
== END | disposition home or self-care (01) ==
LOC: MTLAB 10:20
PROVIDERS: PCP Family Medicine; Referring Provider Psychiatry & Neurology Neurology; Visit Provider Psychiatry & Neurology Neurology
DX: R53.1 Weakness (principal); G62.9 Polyneuropathy, unspecified; M54.50 Low back pain, unspecified; Z98.890 Other specified postprocedural states
CPT/HCPCS: 36415; 72120; 80053; 82607; 82746; 83883; 84425; 84443; 85027

== ENCOUNTER 2022-12-31 10:00 | Outpatient (RCR) | payer MEDICARE, OTHER, SELFPAY ==
--- NOTE | 2022-12-05 13:24 | HP.PTEVAL ---
Patient's Visit Information GRACIE TEMPLE is a 72 year old M referred to Physical Therapy by Dr. Tino Gamble MD with a diagnosis of polyneuropathy, history of lumbar spine surgery, L foot drop. Date of Evaluation: 12/05/22 Physical Therapist: Jimbo Salter DPT - Visit Plan Frequency: 2x /Week Duration: 6 Weeks Plan: Start with BLE strengthening. Add in DF strengthening of LLE as well. Progress gait endurance. - Subjective Pt. is here today for his initial evaluation with diagnosis of polyneuropathy, history of lumbar spine surgery, L foot drop. Last spinal surgery in 2002. He also and a brain tumor removed as well. He reports having marked LLE weakness since the tumor resulting in some foot drop on the L side. His biggest complain currently is both of his legs get very tired quickly with walking, to the point where he either sits down her falls down. He has has fallen, but not too much recently. He does report becoming more sedentary since his legs have become weak, which has most likely impacted his overall endurance and strength. Pt. is hopeful to be able to walk to his barn and back, also be able to attend his grand daughters golf matches with increased tolerance with walking. - Objective POSTURE: Pt. has slight sway back posture, wide MARK. Overall steady. PALPATION: Pt. has no pain with palpation of BLEs mild soreness along lumbar spine. NEURO: Pt. has normal sensation to light and sharp touch of BLEs. Pt. has minimal DTR of BLEs both achilles and patellar tendons. Pt. is able to rise on toes, more difficult to rise on L heel on L side. ROM: pt. has good ROM of BLEs, slight tightness in B HS and H hip flexors. Tightness noted in L calf as well. MMT: RLE: ankle: DF 54.1#, PF 5/5; knee: ext 51.2#, flexion 38.2#; hip: flexion 28.1#; abd 21#. LLE: PF 5/5; DF 9.1#; knee: ext 49.1#, flexion 24#.5#; hip flexion 18.3#, abd 12#. GAIT: pt. has reduced tempo with gait. He is steady, but has marked L foot slap going from initial contact to stance phase. He is able to have enough DF to advance LLE with enough foot clearance. STAIRS:2 HR with step to pattern. Very diffculty to complete, very fatiguing. - Balance/Special Test Scores Lower Extremity Functional Score: 26 30 Second Chair Rise Test Seconds: 9 6 Minute Walk Test: Pt. ambulated for 4 min 31sec- 758feet. fatigue noted. Pt. felt like to his legs were getting weak and needed to sit down. - Goals Goal 1:: LTG: Pt. to be I with HEP for BLE strengthening and endurance training. Goal Time Frame: 4-6 Weeks Goal 2:: STG: Pt. to be able to walk to his barn and back ~100' (uphill) without limitations. Goal Time Frame: 2-4 Weeks Goal 3:: LTG: Pt. to have increased BLE strength by at least 5# throughout. Goal Time Frame: 4-6 Weeks Goal 4:: LTG: Pt. to be able to complete 6 minute walk test with a distance of at least 1000'. Goal Time Frame: 4-6 Weeks Goal 5:: LTG: Pt. to reports no incidents of his legs giving out on him with all ADLs and recreational activities. Goal Time Frame: 4-6 Weeks Goal 6:: LTG: Pt. to be able to attend [employer] golf tournaments without risk or incidence of LEs giving out on him. Goal Time Frame: 6-8 Weeks - Rehabilitation Potential Physical Therapy Diagnosis: Pt. has signs and symptoms polyneuropathy, history of lumbar spine surgery, L foot drop. Pt. has marked overall LE weakness with increased activities. Pt. is limited with gait endurance due to LE fatigue and weakness. Pt. would benefit from PT to work on LE weakness, endurance, and L foot drop in order to increase stability with gait and functional endurance. Rehabilitation Potential: Good - Anticipated Interventions Patient/Client Instruction: Educate patient on: Condition, Plan of Care, Risk Factors, Benefits of Fitness Program For the Purpose of:: To foster healthy habits, To improve decision making, To facilitate caregiver knowledge, To improve self management, To prevent re-injury, To improve ability to perform tasks related to life management, To improve tolerance to ADL's Therapeutic Exercise to Include: Strength training, Power training, Endurance training, Balance training, Coordination, Postural training For the Purpose of:: To decrease pain, To increase ROM, To improve nutrient delivery to tissue, To increase oxygenation perfusion, To improve muscle performance and motor function, To improve ability to perform ADL's, To increase tolerance to activity/condition/position, To improve performance and independence with ADL's Thank you for the opportunity to evaluate your patient. For Medicare and Medicare HMO plans, please review the plan of care and approve it. It will need to be FAXED BACK to us at [phone] for Medicare purposes. For Medicare only, by signing this I certify the plan of care. Please let me know if there are questions or concerns regarding this plan of care. Physician Signature: Date:
--- NOTE | 2022-12-31 10:30 | HP.PTDCSUM ---
Discharge Summary D/C summary: It has been my pleasure to treat GRACIE TEMPLE referred by Dr. Tino Gamble MD, with the diagnosis of polyneuropathy, history of lumbar spine surgery, L foot drop for a total of 8 visit(s). Discharge Date: 12/31/22 Please see the following information for a summary of their discharge status. Subjective Subjective: Pt. reports no pain or issues today. some days are better than others. Pt. reports being able to complete his exercises on his own at this point in time. Overall Improvement % Improvement: 50 Objective Objective/Function: PREVIOUS STRENGTH: RLE: ankle: DF 54.1#, PF 5/5; knee: ext 51.2#, flexion 38.2#; hip: flexion 28.1#; abd 21#. LLE: PF 5/5; DF 9.1#; knee: ext 49.1#, flexion 24#.5#; hip flexion 18.3#, abd 12#. (current strength)- RLE: ankle DF 56.1#, IA 5/5; knee: ext 54.1#, flexion 41.9#; hip: flexion 31.2#, abd 23.1#. LLE: ankle DF 14.9#, PF 5/5; knee: Ext 55.1#, flexion 31.9#; hip: flexion 21.9#, abd 14.3#. GAIT: pt. has improve ambulation, still has some foot smack on the floor, but appears to be less, patient agrees. 6MWT: 978 feet. pt. complete the 6 minutes Pt. is overall improving. He still fatigues, but is overall doing better. Pt. to complete HEP I at this point in time and will be DC. Goals Goal 1:: LTG: Pt. to be I with HEP for BLE strengthening and endurance training. Goal Progress: Goal Met Goal 2:: STG: Pt. to be able to walk to his barn and back ~100' (uphill) without limitations. Goal Progress: Goal Met Goal 3:: LTG: Pt. to have increased BLE strength by at least 5# throughout. Goal Progress: Progressing Goal 4:: LTG: Pt. to be able to complete 6 minute walk test with a distance of at least 1000'. Goal Progress: Progressing Goal 5:: LTG: Pt. to reports no incidents of his legs giving out on him with all ADLs and recreational activities. Goal Progress: Progressing Goal 6:: LTG: Pt. to be able to attend grand daughters golf tournaments without risk or incidence of LEs giving out on him. Goal Progress: Goal Met Plan Plan: Pt. to be DC from PT this date. D/C Information Discharge Comments: Pt. was treated with LE strengthening. Pt. did well, he still has some weakness, but has improved. Pt. to work on DF and PF strengthening. Progress his gait progression as tolerated. Pt. will be DC from PT at this point in time. d/c sentence: If there are questions or concerns regarding this patient's physical therapy, please feel free to call me at [phone]. Thank you for the referral of this patient. Sincerely, Jimbo Salter, DPT Balance/Gait/Functional tests Balance/Special Test Scores Lower Extremity Functional Score: 40 30 Second Chair Rise Test Seconds: 9 6 Minute Walk Test: Pt. ambulated for 4 min 31sec- 758feet. fatigue noted. Pt. felt like to his legs were getting weak and needed to sit down.
== END 2022-12-31 19:00 | disposition home or self-care (01) ==
LOC: PT 10:00
PROVIDERS: PCP Family Medicine; Referring Provider Psychiatry & Neurology Neurology; Visit Provider Psychiatry & Neurology Neurology
DX: M21.372 Foot drop, left foot (principal); G62.9 Polyneuropathy, unspecified; Z98.890 Other specified postprocedural states
CPT/HCPCS: 97110; 97161; 97164

== ENCOUNTER → 2023-01-29 | Outpatient (CLI) | payer MEDICARE, OTHER, SELFPAY ==
[2023-01-29 08:34] LABS: Hemoglobin A1c 7.7 % (3.8-5.6)
== END | disposition home or self-care (01) ==
LOC: LAB 07:29
PROVIDERS: PCP Family Medicine; Referring Provider Internal Medicine Endocrinology, Diabetes & Metabolism; Visit Provider Internal Medicine Endocrinology, Diabetes & Metabolism
DX: E11.65 Type 2 diabetes mellitus with hyperglycemia (principal); E78.2 Mixed hyperlipidemia; E03.8 Other specified hypothyroidism
CPT/HCPCS: 36415; 83036

== ENCOUNTER → 2023-02-08 | Outpatient (CLI) | payer MEDICARE, OTHER, SELFPAY ==
[2023-02-08 10:39] LABS: AST(SGOT) 41 U/L (15-37); Alanine Aminotransfer ALT/SGPT 56 U/L (16-61); Albumin, Serum 3.5 g/dL (3.2-5.0); Alkaline Phosphatase 66 U/L (45-117); Anion Gap 6 (5-15); BUN 16 mg/dL (7-18); BUN/Creat Ratio 12.2 RATIO (10-20); Calcium,Total 9.2 mg/dL (8.5-10.1); Chloride 105 mmol/L (98-107); Cholesterol 172 mg/dL (200); Creatinine, Serum 1.31 mg/dL (0.70-1.30); EST Glomerular Filtration Rate 57 mL/min (>60); Est Glom Filt Rate - Afr Amer 69 mL/min (>60); Globulin 3.4 g/dL (2.2-4.2); Glucose 177 mg/dL (74-106); High Density Lipoprotein 49 mg/dL; Potassium 3.9 mmol/L (3.5-5.1); Protein, Total 6.9 g/dL (6.4-8.2); Sodium Level 139 mmol/L (136-145); T4 Free Direct 1.17 ng/dL (0.76-1.46); Triglycerides 132 mg/dL; Very Low Density Lipoprotein 26 mg/dL (5-40)
== END | disposition home or self-care (01) ==
LOC: MTLAB 08:28
PROVIDERS: PCP Family Medicine; Referring Provider Internal Medicine Endocrinology, Diabetes & Metabolism; Visit Provider Internal Medicine Endocrinology, Diabetes & Metabolism
DX: E11.65 Type 2 diabetes mellitus with hyperglycemia (principal); E03.8 Other specified hypothyroidism; E78.2 Mixed hyperlipidemia
CPT/HCPCS: 80053; 80061; 84439; 84443

== ENCOUNTER → 2023-04-01 | Outpatient (CLI) | payer MEDICARE, OTHER, SELFPAY ==
[2023-04-03 12:08] LABS: Albumin 3.3 g/dL (2.9-4.4); Alpha-1-Globulins 0.2 g/dL (0.0-0.4); Alpha-2-Globulins 0.9 g/dL (0.4-1.0); Gamma Globulin 1.2 g/dL (0.4-1.8); Immunoglobulin A 337 mg/dL (61-437); Immunoglobulin G 1120 mg/dL (603-1613); Immunoglobulin M 82 mg/dL (15-143); PROEL- TOTAL PROTEIN 6.8 g/dL (6.0-8.5)
== END | disposition home or self-care (01) ==
LOC: MTLAB 08:58
PROVIDERS: PCP Family Medicine; Referring Provider Psychiatry & Neurology Neurology; Visit Provider Psychiatry & Neurology Neurology
DX: G62.9 Polyneuropathy, unspecified (principal)
CPT/HCPCS: 36415; 82784; 84165; 86334; 86335

== ENCOUNTER → 2023-04-22 | Outpatient (CLI) | payer MEDICARE, OTHER, SELFPAY ==
[2023-04-22 09:08] LABS: Hemoglobin A1c 7.6 % (3.8-5.6)
[2023-04-22 09:27] LABS: ALB/GLOB Ratio 0.9 RATIO (0.9-2.4); AST(SGOT) 32 U/L (15-37); Alanine Aminotransfer ALT/SGPT 39 U/L (16-61); Albumin, Serum 3.2 g/dL (3.2-5.0); Alkaline Phosphatase 57 U/L (45-117); Anion Gap 5 (5-15); BUN 13 mg/dL (7-18); BUN/Creat Ratio 10.1 RATIO (10-20); Bilirubin, Direct 0.12 mg/dL (0.00-0.30); Calcium,Total 8.8 mg/dL (8.5-10.1); Chloride 107 mmol/L (98-107); Cholesterol 163 mg/dL (200); Creatinine, Serum 1.29 mg/dL (0.70-1.30); EST Glomerular Filtration Rate 58 mL/min (>60); Est Glom Filt Rate - Afr Amer 70 mL/min (>60); Globulin 3.7 g/dL (2.2-4.2); Glucose 133 mg/dL (74-106); High Density Lipoprotein 50 mg/dL; Potassium 3.8 mmol/L (3.5-5.1); Protein, Total 6.9 g/dL (6.4-8.2); Sodium Level 138 mmol/L (136-145); Thyroid Stim Hormone (TSH) 2.59 uIU/mL (0.358-3.74); Triglycerides 111 mg/dL; Very Low Density Lipoprotein 22 mg/dL (5-40)
== END | disposition home or self-care (01) ==
LOC: LAB 07:41
PROVIDERS: Nurse Practitioner Family; PCP Family Medicine; Referring Provider Internal Medicine Endocrinology, Diabetes & Metabolism; Visit Provider Internal Medicine Endocrinology, Diabetes & Metabolism
DX: E11.65 Type 2 diabetes mellitus with hyperglycemia (principal); E04.2 Nontoxic multinodular goiter
CPT/HCPCS: 36415; 80053; 80061; 82248; 83036; 84443

== ENCOUNTER → 2023-05-14 | Outpatient (CLI) | payer MEDICARE, OTHER, SELFPAY ==
[2023-05-14 10:33] LABS: PSA,Total - Annual Screen 0.52 ng/mL (0.00-4.00)
== END | disposition home or self-care (01) ==
LOC: LAB 09:42
PROVIDERS: PCP Family Medicine; Referring Provider Urology; Visit Provider Urology
DX: Z12.5 Encounter for screening for malignant neoplasm of prostate (principal)
CPT/HCPCS: 36415; 84153; G0103

== ENCOUNTER → 2023-07-18 | Outpatient (CLI) | payer MEDICARE, OTHER, SELFPAY ==
[2023-07-18 09:33] LABS: ALB/GLOB Ratio 0.9 RATIO (0.9-2.4); AST(SGOT) 25 U/L (15-37); Alanine Aminotransfer ALT/SGPT 43 U/L (16-61); Albumin, Serum 3.2 g/dL (3.2-5.0); Alkaline Phosphatase 58 U/L (45-117); Anion Gap 4 (5-15); BUN 17 mg/dL (7-18); BUN/Creat Ratio 12.2 RATIO (10-20); Calcium,Total 8.9 mg/dL (8.5-10.1); Chloride 110 mmol/L (98-107); Cholesterol 178 mg/dL (200); Creatinine, Serum 1.39 mg/dL (0.70-1.30); EST Glomerular Filtration Rate 53 mL/min (>60); Est Glom Filt Rate - Afr Amer 64 mL/min (>60); Globulin 3.7 g/dL (2.2-4.2); Glucose 140 mg/dL (74-106); High Density Lipoprotein 46 mg/dL; Potassium 4.2 mmol/L (3.5-5.1); Protein, Total 6.9 g/dL (6.4-8.2); Sodium Level 140 mmol/L (136-145); Triglycerides 134 mg/dL; Very Low Density Lipoprotein 27 mg/dL (5-40)
[2023-07-18 10:49] LABS: Hemoglobin A1c 7.7 % (3.8-5.6)
[2023-07-18 10:57] LABS: Microalbumin,Random Urine 6.2 mg/L (NO RANGE EST.); Microalbumin:Creatinine Ratio 4.9 mg/g CRE (<30 mg/g CRE)
== END | disposition home or self-care (01) ==
LOC: LAB 07:56
PROVIDERS: PCP Family Medicine; Referring Provider Internal Medicine Endocrinology, Diabetes & Metabolism; Visit Provider Internal Medicine Endocrinology, Diabetes & Metabolism
DX: E11.65 Type 2 diabetes mellitus with hyperglycemia (principal)
CPT/HCPCS: 36415; 80053; 80061; 82043; 82570; 83036

== ENCOUNTER → 2023-09-12 | Outpatient (CLI) | payer MEDICARE, OTHER, SELFPAY ==
[2023-09-12 10:19] LABS: ALB/GLOB Ratio 0.9 RATIO (0.9-2.4); AST(SGOT) 45 U/L (15-37); Alanine Aminotransfer ALT/SGPT 37 U/L (16-61); Albumin, Serum 3.2 g/dL (3.2-5.0); Alkaline Phosphatase 59 U/L (45-117); Anion Gap 6 (5-15); BUN 14 mg/dL (7-18); BUN/Creat Ratio 10.3 RATIO (10-20); Chloride 106 mmol/L (98-107); Cholesterol 87 mg/dL (200); Creatinine, Serum 1.36 mg/dL (0.70-1.30); EST Glomerular Filtration Rate 55 mL/min (>60); Est Glom Filt Rate - Afr Amer 66 mL/min (>60); Globulin 3.7 g/dL (2.2-4.2); Glucose 139 mg/dL (74-106); High Density Lipoprotein 40 mg/dL; Potassium 3.9 mmol/L (3.5-5.1); Protein, Total 6.9 g/dL (6.4-8.2); Sodium Level 140 mmol/L (136-145); Triglycerides 94 mg/dL; Very Low Density Lipoprotein 19 mg/dL (5-40)
== END | disposition home or self-care (01) ==
LOC: MTLAB 08:39
PROVIDERS: PCP Family Medicine; Referring Provider Internal Medicine Endocrinology, Diabetes & Metabolism; Visit Provider Internal Medicine Endocrinology, Diabetes & Metabolism
DX: E11.65 Type 2 diabetes mellitus with hyperglycemia (principal); E78.2 Mixed hyperlipidemia
CPT/HCPCS: 36415; 80053; 80061

== ENCOUNTER → 2023-09-19 | Outpatient (CLI) | payer MEDICARE, OTHER, SELFPAY ==
[2023-09-19 08:35] LABS: Absolute Lymphocyte Count 3.11 X10^3/uL (0.83-4.51); Absolute Neutrophil Count 3.4 X10^3/uL (2.0-7.7); Basophil# 0.07 X10^3/uL; Basophil% 0.8 % (0-1); Eosinophil# 0.71 X10^3/uL; Eosinophils% 8.5 % (0-5); Hematocrit 49.3 % (40-54); Hemoglobin 15.9 g/dL (13.0-16.5); Lymphocyte # 3.11 X10^3/ul (0.83-4.51); Mean Corp Hgb Conc 32.3 g/dL (32-36); Mean Corpuscular Hgb 31.2 pg (27.0-32.0); Mean Corpuscular Volume 96.9 fL (80-94); Mean Platelet Vol. 10.6 fl (6.2-12.0); Monocyte% 13.1 % (0-10); NRBC Flagged by Analyzer 0 % (0-5); Neutrophil % 40.5 % (47-70); Platelet Count 192 K/mm3 (150-450); RBC Distribution Width SD 46.1 fl (35.1-43.9); Red Blood Count 5.09 M/mm3 (4.6-6.2); White Blood Count 8.4 K/mm3 (4.4-11.0)
[2023-09-19 09:31] LABS: CPK Total, Creatine Kinase 250 U/L (39-308); Ferritin 90 ng/mL (26-388); Iron 90 ug/dL (65-175)
[2023-09-19 11:21] LABS: AST(SGOT) 50 U/L (15-37); Alanine Aminotransfer ALT/SGPT 48 U/L (16-61); Albumin, Serum 3.4 g/dL (3.2-5.0); Alkaline Phosphatase 56 U/L (45-117); Bilirubin, Direct 0.15 mg/dL (0.00-0.30); Globulin 3.6 g/dL (2.2-4.2)
[2023-09-24 11:08] LABS: Adrenocorticotropic Hormone 41.6 pg/mL (7.2-63.3); QNTFERON TB Mitogen Value > 10.00 IU/mL (.); QNTFERON TB Nil Value 0.17 IU/mL (.); QNTFERON TB1+ Ag Value 0.13 IU/mL (.); QNTFERON TB2+ Ag Value 0.16 IU/mL (.); QNTIFERON TB Positive Criteria Negative (Negative); Testosterone, % Free 3.93 % (1.50-4.20); Testosterone, Free 12.81 ng/dL (5.00-21.00); Testosterone, Total 326 ng/dL (264-916)
== END | disposition home or self-care (01) ==
PROVIDERS: PCP Family Medicine; Referring Provider Physician Assistant; Visit Provider Physician Assistant
DX: D50.9 Iron deficiency anemia, unspecified (principal); E27.49 Other adrenocortical insufficiency; E29.1 Testicular hypofunction; E55.9 Vitamin D deficiency, unspecified; D52.0 Dietary folate deficiency anemia; Z79.899 Other long term (current) drug therapy
CPT/HCPCS: 36415; 80076; 82024; 82306; 82533; 82550; 82728; 82746; 83540; 84402; 84403; 85025; 86480

== ENCOUNTER → 2023-11-19 | Outpatient (CLI) | payer MEDICARE, OTHER, SELFPAY ==
[2023-11-19 09:25] LABS: Hemoglobin A1c 6.8 % (3.8-5.6)
[2023-11-19 09:44] LABS: ALB/GLOB Ratio 0.8 RATIO (0.9-2.4); AST(SGOT) 38 U/L (15-37); Alanine Aminotransfer ALT/SGPT 37 U/L (16-61); Albumin, Serum 3.2 g/dL (3.2-5.0); Alkaline Phosphatase 64 U/L (45-117); Anion Gap 7 (5-15); BUN 12 mg/dL (7-18); BUN/Creat Ratio 9.4 RATIO (10-20); Calcium,Total 8.9 mg/dL (8.5-10.1); Chloride 108 mmol/L (98-107); Cholesterol 96 mg/dL (200); Creatinine, Serum 1.28 mg/dL (0.70-1.30); EST Glomerular Filtration Rate 58 mL/min (>60); Est Glom Filt Rate - Afr Amer 71 mL/min (>60); Glucose 135 mg/dL (74-106); High Density Lipoprotein 44 mg/dL; Protein, Total 7.2 g/dL (6.4-8.2); Sodium Level 139 mmol/L (136-145); Thyroid Stim Hormone (TSH) 2.11 uIU/mL (0.358-3.74); Triglycerides 101 mg/dL; Very Low Density Lipoprotein 20 mg/dL (5-40)
[2023-11-22 18:45] LABS: Microalbumin,Random Urine 7.7 mg/L (NO RANGE EST.); Microalbumin:Creatinine Ratio 7.1 mg/g CRE (<30 mg/g CRE)
== END | disposition home or self-care (01) ==
LOC: LAB 07:53
PROVIDERS: PCP Family Medicine; Referring Provider Internal Medicine Endocrinology, Diabetes & Metabolism; Visit Provider Internal Medicine Endocrinology, Diabetes & Metabolism
DX: E11.65 Type 2 diabetes mellitus with hyperglycemia (principal); E78.2 Mixed hyperlipidemia; E03.8 Other specified hypothyroidism
CPT/HCPCS: 36415; 80053; 80061; 82043; 82570; 83036; 84443

== ENCOUNTER → 2024-02-04 | Outpatient (CLI) | payer MEDICARE, OTHER, SELFPAY ==
[2024-02-04 18:38] LABS: ALB/GLOB Ratio 0.8 RATIO (0.9-2.4); AST(SGOT) 49 U/L (15-37); Alanine Aminotransfer ALT/SGPT 45 U/L (16-61); Albumin, Serum 3.4 g/dL (3.2-5.0); Alkaline Phosphatase 72 U/L (45-117); Anion Gap 5 (5-15); BUN 13 mg/dL (7-18); BUN/Creat Ratio 9.9 RATIO (10-20); Calcium,Total 9.6 mg/dL (8.5-10.1); Chloride 106 mmol/L (98-107); Creatinine, Serum 1.31 mg/dL (0.70-1.30); EST Glomerular Filtration Rate 57 mL/min (>60); Est Glom Filt Rate - Afr Amer 69 mL/min (>60); Glucose 186 mg/dL (74-106); Potassium 4.3 mmol/L (3.5-5.1); Protein, Total 7.4 g/dL (6.4-8.2); Sodium Level 137 mmol/L (136-145)
[2024-02-04 19:54] LABS: Hemoglobin A1c 7.9 % (3.8-5.6)
== END | disposition home or self-care (01) ==
LOC: MTLAB 14:23
PROVIDERS: PCP Family Medicine; Referring Provider Physician Assistant; Visit Provider Physician Assistant
DX: E11.42 Type 2 diabetes mellitus with diabetic polyneuropathy (principal); E03.8 Other specified hypothyroidism
CPT/HCPCS: 36415; 80053; 83036; 84443

== ENCOUNTER → 2024-02-28 | Outpatient (CLI) | payer MEDICARE, OTHER, SELFPAY ==
--- NOTE | 2024-02-28 07:13 | MRI_ITS ---
STUDY: MRI LUMBAR SPINE WITH AND WITHOUT CONTRAST REASON FOR EXAM: Male, 74 years old. gait disorder; Hx lumbar surgery; sciatica: LBP TECHNIQUE: Standardized fat and water weighted pulse sequences were obtained in the sagittal and axial planes. IV 19cc clariscan was administered for the contrast portion of the examination. COMPARISON: July 04, 2022. FINDINGS: T12-L1: Normal endplates. Normal disc height, desiccation and normal morphology. Normal bilateral facet joints. Normal central canal and bilateral lateral recesses. Normal bilateral intervertebral neural foramina. Normal lumbar lordosis. There is no substantial scoliosis. Normal conus medullaris that terminates at T12-L1 L1-2: Normal endplates. Normal disc height, desiccation and normal morphology. Normal bilateral facet joints. Normal central canal and bilateral lateral recesses. Normal bilateral intervertebral neural foramina. L2-3:: Narrowed disc space with desiccation of the disc and mild annular bulge.. Bilateral facet arthropathy. Mild narrowing of the central canal and normal bilateral lateral recesses.. Moderate bilateral neural foraminal stenosis exaggerated by shortened pedicles L3-4: Postop change status post bilateral laminectomy posterior fusion. Narrowed disc space with desiccation of the disc and minimal osteophytic ridging. Normal central canal and bilateral lateral recesses. Minor bilateral neural foraminal encroachment. Posterior to the L3 vertebral body, there is bony hypertrophy on the right compressing the right posterolateral aspect of the thecal sac L4-5: Postop change status post bilateral laminectomy and posterior fusion Normal endplates. Narrowed disc space with desiccation of the disc demonstrating normal morphology. Normal bilateral facet joints. Normal central canal and bilateral lateral recesses. Normal bilateral intervertebral neural foramina. There are small droplets of fluid in the soft tissues posterior to the epidural fat. L5-S1: Postop change status post bilateral laminectomy facetectomy and posterior fusion Grade 1 spondylolisthesis Normal endplates. Normal disc height, desiccation mild bulging disc osteophyte complex. Normal bilateral facet joints. Normal central canal and bilateral lateral recesses. Normal bilateral intervertebral neural foramina. Normal visualized sacral ala. Normal visualized paraspinous soft tissue structures. No enhancing lesions following contrast administration MRI/Spine Lumbar W/WO Contrast IMPRESSION: No evidence for acute fracture or other significant bony pathology. Postsurgical changes at L3-4, L4-5 and L5-S1 Spinal stenosis at L2-3 secondary to annular bulge facet arthropathy and exaggerated by foreshortened pedicles Right lateral recess stenosis and compression of the thecal sac posterior to the L3 vertebral body secondary to bony hypertrophy Electronically Signed: Paco Whitfield MD at 21:55 EDT ,
== END | disposition home or self-care (01) ==
LOC: MRI 07:08
PROVIDERS: PCP Family Medicine; Referring Provider Psychiatry & Neurology Neurology; Visit Provider Psychiatry & Neurology Neurology
DX: M21.372 Foot drop, left foot (principal); M54.30 Sciatica, unspecified side; M54.50 Low back pain, unspecified
CPT/HCPCS: 72158; A9575

== ENCOUNTER → 2024-04-16 | Outpatient (CLI) | payer MEDICARE, OTHER, SELFPAY ==
[2024-04-16 09:33] LABS: Anion Gap 6 (5-15); BUN 15 mg/dL (7-18); BUN/Creat Ratio 11.1 RATIO (10-20); Calcium,Total 8.9 mg/dL (8.5-10.1); Chloride 109 mmol/L (98-107); Cholesterol 92 mg/dL (200); Creatinine, Serum 1.35 mg/dL (0.70-1.30); EST Glomerular Filtration Rate 55 mL/min (>60); Est Glom Filt Rate - Afr Amer 66 mL/min (>60); Glucose 202 mg/dL (74-106); High Density Lipoprotein 39 mg/dL; Potassium 3.9 mmol/L (3.5-5.1); Sodium Level 139 mmol/L (136-145); Triglycerides 135 mg/dL; Very Low Density Lipoprotein 27 mg/dL (5-40)
== END | disposition home or self-care (01) ==
LOC: LAB 07:52
PROVIDERS: PCP Family Medicine; Referring Provider Family Medicine; Visit Provider Family Medicine
DX: Z00.00 Encounter for general adult medical examination without abnormal findings (principal); N18.30 Chronic kidney disease, stage 3 unspecified; E78.5 Hyperlipidemia, unspecified
CPT/HCPCS: 36415; 80048; 80061

== ENCOUNTER → 2024-05-07 | Outpatient (CLI) | payer MEDICARE, OTHER, SELFPAY ==
[2024-05-07 10:37] LABS: Vitamin D,25 Hydroxy 55.7 ng/mL
[2024-05-07 10:43] LABS: ALB/GLOB Ratio 0.9 RATIO (0.9-2.4); AST(SGOT) 36 U/L (15-37); Alanine Aminotransfer ALT/SGPT 44 U/L (16-61); Albumin, Serum 3.3 g/dL (3.2-5.0); Alkaline Phosphatase 62 U/L (45-117); Anion Gap 6 (5-15); BUN 13 mg/dL (7-18); BUN/Creat Ratio 10.5 RATIO (10-20); Calcium,Total 8.9 mg/dL (8.5-10.1); Chloride 105 mmol/L (98-107); Cholesterol 105 mg/dL (200); Creatinine, Serum 1.24 mg/dL (0.70-1.30); EST Glomerular Filtration Rate 61 mL/min (>60); Est Glom Filt Rate - Afr Amer 73 mL/min (>60); Globulin 3.7 g/dL (2.2-4.2); Glucose 170 mg/dL (74-106); High Density Lipoprotein 44 mg/dL; Potassium 3.9 mmol/L (3.5-5.1); Sodium Level 138 mmol/L (136-145); Triglycerides 156 mg/dL; Very Low Density Lipoprotein 31 mg/dL (5-40)
== END | disposition home or self-care (01) ==
LOC: MTLAB 07:24
PROVIDERS: Internal Medicine Cardiovascular Disease; PCP Family Medicine; Referring Provider Physician Assistant; Visit Provider Physician Assistant
DX: E11.65 Type 2 diabetes mellitus with hyperglycemia (principal); E11.22 Type 2 diabetes mellitus with diabetic chronic kidney disease; N18.30 Chronic kidney disease, stage 3 unspecified; E78.2 Mixed hyperlipidemia; E55.9 Vitamin D deficiency, unspecified
CPT/HCPCS: 36415; 80053; 80061; 82306; 83036

== ENCOUNTER 2024-05-22 19:45 | Emergency (ER) | payer MEDICARE, OTHER, SELFPAY ==
[2024-05-22 19:49] VITALS: BP 117/76; PULSE 93; RESP 16; TEMP 36.6; O2SAT 96
--- NOTE | 2024-05-22 19:55 | EKG12_ITS ---
Test Reason : DYSRHYTHMIA Blood Pressure : */* mmHG Vent. Rate : 87 BPM Atrial Rate : 87 BPM P-R Int : 146 ms QRS Dur : 86 ms QT Int : 370 ms P-R-T Axes : 19 13 36 degrees QTcB Int : 445 ms Normal sinus rhythm inferior lateral [place]-? age Abnormal ECG Confirmed by Jg Colindres ([id number]), book or script editor LIZBETH SAMANIEGO ([id number]) on 05/25/2024 6:47:38 AM Referred By: Confirmed By: Jg Colindres
--- NOTE | 2024-05-22 20:11 | ED.RN ---
Spoke to RAMONA Lazaro regarding pt's symptoms, ok to continue triage accordingly and do protocols while waiting for room
[2024-05-22 20:13] LABS: Absolute Lymphocyte Count 2.47 X10^3/uL (0.83-4.51); Absolute Neutrophil Count 8.7 X10^3/uL (2.0-7.7); Basophil# 0.06 X10^3/uL; Basophil% 0.5 % (0-1); Eosinophil# 0.11 X10^3/uL; Eosinophils% 0.8 % (0-5); Hematocrit 44.3 % (40-54); Hemoglobin 15.2 g/dL (13.0-16.5); Lymphocyte # 2.47 X10^3/ul (0.83-4.51); Lymphocyte % 18.8 % (19-41); Mean Corp Hgb Conc 34.3 g/dL (32-36); Mean Corpuscular Hgb 32.4 pg (27.0-32.0); Mean Corpuscular Volume 94.5 fL (80-94); Mean Platelet Vol. 10.7 fl (6.2-12.0); Monocyte# 1.72 X10^3/uL; Monocyte% 13.1 % (0-10); NRBC Flagged by Analyzer 0 % (0-5); Neutrophil # 8.74 X10^3/uL (2.7-7.7); Neutrophil % 66.3 % (47-70); POSITIVE DIFFERENTIAL YES; Platelet Count 182 K/mm3 (150-450); RBC Distribution Width CV 13.1 % (11.6-14.6); Red Blood Count 4.69 M/mm3 (4.6-6.2); White Blood Count 13.2 K/mm3 (4.4-11.0)
[2024-05-22 20:23] LABS: International Normalized Ratio 1.1; Partial Thromboplast Time 27.1 Seconds (24.1-36.2); Prothrombin Time (Protime)PT. 14.1 SECONDS (11.7-14.9)
[2024-05-22 20:27] LABS: Bedside Glucose 178 mg/dL (74-106)
[2024-05-22 20:27] LABS: Anion Gap 8 (5-15); BUN 12 mg/dL (7-18); BUN/Creat Ratio 9.6 RATIO (10-20); Chloride 103 mmol/L (98-107); Creatinine, Serum 1.25 mg/dL (0.70-1.30); EST Glomerular Filtration Rate 60 mL/min (>60); Est Glom Filt Rate - Afr Amer 73 mL/min (>60); Glucose 173 mg/dL (74-106); Potassium 3.5 mmol/L (3.5-5.1); Sodium Level 135 mmol/L (136-145)
--- NOTE | 2024-05-22 20:30 | RAD_ITS ---
INDICATION: Stroke EXAMINATION/TECHNIQUE: X-RAY - XR Chest 1 View COMPARISON: 01/29/2022 FINDINGS: LIFE-SUPPORT AND LINES: 1. None HEART AND VESSELS: The cardiac silhouette, pulmonary vasculature have normal appearance. No evidence of congestive failure. LUNGS AND PLEURAL SPACES: Lungs are clear. No focal infiltrate, consolidation or effusions. No evidence of pneumothorax. Chronic interstitial changes at the LEFT lung base which appears stable. MEDIASTINUM AND HILAR REGIONS: No masses adenopathy noted. No areas of calcification. Visualized upper airway is normal in position. BONY ELEMENTS: No acute bony changes noted. RAD/Chest 1 View (Portable) IMPRESSION: 1. Stable chronic interstitial changes at the LEFT lung base. Remaining lung zones are clear. 2. No evidence of congestive failure Electronically Signed: Zain Hawkins MD at 21:15 EST ,
[2024-05-22 20:39] LABS: Differential Indicated SCAN CRITERIA MET
[2024-05-22 20:56] LABS: Platelet Estimate ADEQUATE (ADEQ)
[2024-05-22 20:57] LABS: Anisocytosis RARE; Macrocytosis RARE; Red Cell Morphology N CHROM NORMAL (NORM C&C)
[2024-05-22 21:30] VITALS: BP 142/66; PULSE 84; RESP 18; O2SAT 98
--- NOTE | 2024-05-22 22:07 | EDS_ITS ---
HPI History of Present Illness Chief Complaint: Dizziness Informant: patient and spouse/S.O. Onset/Context/Timing Onset: Today Narrative Narrative: Right anterior with spouse for evaluation not feeling well after waking up today. He states feeling off balance falling down. No injuries. He states last time he fell is reaching for something. No spinning sensation. He states had a fever 100.2. History of BPH had trouble urinating yesterday however urinated normal after restarting his Flomax. No vomiting or diarrhea. Chronic intermittent cough. History of meningioma 2002 with surgical resection he had a subsequent stroke from the procedure, there was no residual deficits. Since then has had neuropathy left lower leg with weakness due to back issues. [facility] Medical History Low back pain Leg weakness, bilateral Coronary artery disease History of atrial fibrillation Dyslipidemia Obesity Hypotension History of orthostatic hypotension Weakness Abnormality of gait and mobility Left foot drop Polyneuropathy 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 Chest pain Fatigue PALOMO (dyspnea on exertion) Sinus tachycardia COVID-19 Presence of stent in coronary artery (~04/30/13) Pure hypercholesterolemia Essential hypertension Diabetes Claudication in peripheral vascular disease Left ventricular hypertrophy Paroxysmal atrial fibrillation Atherosclerotic heart disease of [place] coronary artery without angina pectoris Home Medications ?Medication ?Instructions ?Recorded ?Last Taken ?Type nortriptyline 25 mg capsule 25 mg PO QHS nerve pain 04/23/13 Unknown History pantoprazole 40 mg tablet,delayed 40 mg PO DAILY acid reflux 04/23/13 10/15/16 History release finasteride 5 mg tablet 5 mg PO DAILY prostate 10/12/16 Unknown History cholecalciferol (vitamin D3) 25 5,000 unit PO DAILY DEFICIENCY 05/05/18 Unknown History mcg (1,000 unit) capsule adalimumab 10 mg/0.2 mL 40 mg subcut Q2W arthritis 10/21/18 Unknown History subcutaneous syringe kit (Humira) nitroglycerin 0.4 mg sublingual 0.4 mg sublingual Q5-15M PRN chest 10/26/20 Unknown Rx tablet pain #25 tabs oxybutynin chloride 10 mg 10 mg PO QPM 05/21/22 Unknown History tablet,extended release 24 hr Disability Placard #1 ea 11/29/22 Unknown Rx empagliflozin 12.5 mg-metformin ER 2 tab PO DAILY Diabetes 05/16/23 Unknown History 1,000 mg tablet,extended rel 24 hr (Synjardy XR) levothyroxine 50 mcg tablet 50 mcg PO DAILY 05/16/23 Unknown History lisinopril 20 mg tablet See Rx Instructions .Route 07/15/23 Unknown Rx .COMPLEX #90 tabs Left AFO #1 ea 09/30/23 Unknown Rx dulaglutide 0.75 mg/0.5 mL 0.75 mg subcut QWEEK 12/02/23 Unknown History subcutaneous pen injector (Trulicity) glimepiride 2 mg tablet 2 mg PO QDAY 12/02/23 Unknown History tamsulosin 0.4 mg capsule 0.4 mg PO QDAY 12/02/23 Unknown History ezetimibe 10 mg tablet 10 mg PO QHS to lower cholesterol 12/30/23 Unknown Rx #90 tabs gabapentin 300 mg capsule 300 mg PO BID 01/30/24 Unknown History clopidogrel 75 mg tablet 75 mg PO DAILY #90 tabs 03/19/24 Unknown Rx metoprolol tartrate 100 mg tablet 100 mg PO BID #180 TABLETS 05/04/24 Unknown Rx Allergy/AdvReac Type Severity Reaction Status Date / Time acetaminophen (From Tylenol) Allergy Severe Anaphylaxis Verified 05/22/24 19:52 Penicillins Allergy Severe Other Verified 05/22/24 19:52 hydromorphone HCl (From AdvReac Severe Other Verified 05/22/24 19:52 Dilaudid) Family History Mother CAD (coronary artery disease) Sister CAD (coronary artery disease) Father Heart disease Surgical History History of lumbosacral spine surgery Presence of coronary angioplasty implant and graft (~04/30/13) History of resection of meningioma Hx of cataract surgery History of lumbar surgery Social History Smoking Status: Never smoker alcohol intake: never substance use type: does not use caffeine: Yes Type: carbonated beverages Number of servings: 1 what type of physical activity do you participate in: none ROS ROS ED Constitutional Constitutional ED: Reports fever(s); Denies chills or sweats Eyes Eyes: Denies change in vision ENT ENT ED: Denies dysphagia or sore throat Cardiovascular Cardiovascular: Denies chest pain, leg edema, palpitations or racing heartbeat Respiratory/Chest Respiratory/Chest: Reports cough; Denies dyspnea or dyspnea on exertion Gastrointestinal Gastrointestinal: Denies abdominal pain, diarrhea, nausea or vomiting Genitourinary Genitourinary ED: Denies dysuria, hematuria or urinary frequency Musculoskeletal Musculoskeletal: Denies back pain, extremity pain or neck pain Integumentary Denies rash or wounds Neurologic Neurologic: Reports other Details: Balance issues ; Denies headache(s), paresthesias or weakness EXAM Physical Exam Const Vital Signs: 05/22/24 19:49 05/22/24 19:55 05/22/24 21:30 Temperature 97.8 F Temperature Source Oral Pulse Rate 93 84 Respiratory Rate 16 18 Blood Pressure 117/76 142/66 H Blood Pressure Mean 89 91 Pulse Ox 96 98 Oxygen Delivery Method Room Air Room Air Room Air 05/22/24 22:30 05/23/24 00:23 Temperature 98.5 F Temperature Source Pulse Rate 82 77 Respiratory Rate 18 16 Blood Pressure 123/62 H 122/71 H Blood Pressure Mean 82 88 Pulse Ox 98 94 Oxygen Delivery Method Room Air Positive well nourished and well developed General Appearance ED: well developed and NAD HEENT Reports moist mucous membranes HEENT Narrative: Mild left lip weakness however reported by spouse he smiled sideways. normocephalic and atraumatic Eyes EOMs intact bilaterally and conjunctivae normal General Eye ED: Yes normal appearance of both eyes Neck no lymphadenopathy and supple General: Negative for tenderness Chest Wall Chest: Negative for tenderness Resp normal respiratory effort and normal air movement Effort and Inspection: symmetric chest movement; Negative for respiratory distress Cardio regular rate, regular rhythm and no murmurs Peripheral Pulses: pulses 2+ throughout GI normal to inspection, nondistended, normoactive bowel sounds and non-tender Palpation: Negative for guarding or rebound tenderness present Back/Spine no CVA tenderness and no thoracic nor lumbar tenderness Extremity normal to inspection General Extremety ED: Negative for edema or tenderness General Extremity: Negative for edema Neuro oriented x3, CN's II-XII intact bilaterally and no sensory deficits noted Neuro Narrative: Patient had slight left leg drift however reported chronic from his back and neuropathy. Sensation intact. Cerebellar upper and lower equal and symmetric. Sensorium / Orientation: awake and alert Skin no rashes or lesions noted and no wounds MDM MDM MDM Narrative Medical decision making narrative: Interventions / MDM: Differential diagnosis: Viral syndrome, nonspecific vertical Diagnosis considered but do not suspect: Suspect CVA however chronic lip and left leg drift. No focal deficits that are new. Infectious causes however x- ray and urine negative. Electrolyte abnormalities however labs are stable. My EKG interpretation: Sinus rate of 87, no ST or T wave changes artifacts at baseline. Imaging independently reviewed and interpreted by myself: 1 view chest x-ray: No acute process. CT angiogram head and neck: No acute process. External documents reviewed: N/A Test considered but not ordered:N/A ED course: With mild left lower lip weakness with smiling and left leg drift however this is normal for the patient. This not new. EKG is sinus rhythm. Will check labs and urine, stroke history of meningioma, will check CT angiogram head and neck. Workup essentially negative slight leukocytosis 13. Sodium 135. Creatinine 1.25. Hemoglobin 15.2. COVID, fluids, RSV negative. Urine negative. CTs and x-rays negative. Patient reassured he is ambulating slow however not unsteady. I discussed viral syndrome with patient and spouse. Discussed monitoring worsening symptoms. Discussed return precautions. All questions were answered. Re-evaluation: stable Disposition discussed with patient/family/significant other: Patient and significant other Case discussed with consulting clinician: N/A This note was generated with [employer] dictation software. It may contain incorrect words, spelling, and punctuation that were not noted in checking the note before signing. Lab Data Attestation: I reviewed the patient's lab results. Labs: Laboratory Results - last 24 hr 05/22/24 05/22/24 05/22/24 20:05 20:08 22:32 WBC 13.2 H RBC 4.69 Hgb 15.2 Hct 44.3 MCV 94.5 H MCH 32.4 H MCHC 34.3 RDW Std Deviation 45.0 H RDW Coeff of Stacy 13.1 Plt Count 182 MPV 10.7 Immature Gran % (Auto) 0.500 Neut % (Auto) 66.3 Lymph % (Auto) 18.8 L Dade % (Auto) 13.1 H Eos % (Auto) 0.8 Baso % (Auto) 0.5 Absolute Neuts (auto) 8.7 H Absolute Lymphs (auto) 2.47 Nucleated RBC % 0 Differential Comment SEE COMMENT Diff Path Review May foll Platelet Estimate ADEQUATE RBC Morphology N CHROM Anisocytosis RARE Macrocytosis RARE PT 14.1 INR 1.1 APTT 27.1 Sodium 135 L Potassium 3.5 Chloride 103 Carbon Dioxide 24.0 Anion Gap 8 BUN 12 Creatinine 1.25 Est GFR (MDRD) Af Amer 73 Est GFR (MDRD) Non-Af 60 BUN/Creatinine Ratio 9.6 L Glucose 173 H Calcium 9.0 Urine Color Yellow Urine Clarity Clear Urine pH 6.0 Ur Specific Bonnie 1.015 Urine Protein 15 H Urine Glucose (UA) 1000 H Urine Ketones 15 H Urine Occult Blood 10 H Urine Nitrite Negative Urine Bilirubin Negative Urine Urobilinogen Normal Ur Leukocyte Esterase Negative Urine RBC 0-5 SEEN Urine WBC 0 SEEN Ur Squamous Epith Cells 0 SEEN Ur Renal Epithelial Cell 0-5 SEEN Urine Bacteria RARE Urine Mucus 0 SEEN POC Glucose 178 H Radiography Diagnostic Testing: Clinical Impression(s) from Imaging Studies Chest X-Ray 05/22/24 20:30 IMPRESSION: 1. Stable chronic interstitial changes at the LEFT lung base. Remaining lung zones are clear. 2. No evidence of congestive failure Electronically Signed: Zain Hawkins MD at 21:15 EST , Head/Neck CTA 05/22/24 22:07 IMPRESSION: No acute intracranial finding. 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 No large vessel occlusion or flow-limiting stenosis. Electronically Signed: Live Quiroz MD at 22:44 EST , Discharge Plan Triage Chief Complaint: Dizziness ED Provider: Chito Munoz Dx/Rx/DC Orders Clinical Impression: Acute viral syndrome, Weakness, Dizziness Instructions: ED Vertigo, Unspecified, ED Viral Syndrome (Adult) Prescriptions: No Action cholecalciferol (vitamin D3) 1,000 unit capsule 5,000 unit PO DAILY Humira 10 mg/0.2 mL syringe kit 40 mg SC Q2W nitroglycerin 0.4 mg tablet, sublingual 0.4 mg sublingual Q5-15M PRN (Reason: chest pain) Qty: 25 3RF Rx Instructions: do not exceed 3 doses per episode oxybutynin chloride 10 mg tablet extended release 24hr 10 mg PO QPM (DME) Disability Placard See Rx Instructions .Route .MEDSUPPLY Qty: 1 0RF Rx Instructions: Expiration: 11/29/2025 Synjardy XR 12.5-1,000 mg tablet, IR - ER, biphasic 24hr 2 tab PO DAILY levothyroxine 50 mcg tablet 50 mcg PO DAILY (DME) Left AFO See Rx Instructions .Route .MEDSUPPLY Qty: 1 0RF Rx Instructions: As directed gabapentin 300 mg capsule 300 mg PO BID Trulicity 0.75 mg/0.5 mL pen injector 0.75 mg subcut QWEEK tamsulosin 0.4 mg capsule 0.4 mg PO QDAY glimepiride 2 mg tablet 2 mg PO QDAY nortriptyline 25 MG capsule 25 mg PO QHS pantoprazole 40 MG tablet 40 mg PO DAILY finasteride 5 MG tablet 5 mg PO DAILY lisinopril 20 mg tablet See Rx Instructions .ROUTE .COMPLEX Qty: 90 3RF Dose Instruction: TAKE 1 TABLET BY MOUTH DAILY FOR HIGH BLOOD PRESSURE Rx Instructions: TAKE 1 TABLET BY MOUTH DAILY FOR HIGH BLOOD PRESSURE ezetimibe 10 mg tablet 10 mg PO QHS Qty: 90 3RF clopidogrel 75 mg tablet 75 mg PO DAILY Qty: 90 3RF metoprolol tartrate 100 mg tablet 100 mg PO BID Qty: 180 3RF Primary Care Provider: Connor Kohli Referrals: Connor Kohli MD [Primary Care Provider] - 3-5 Days if not improving Activity Restrictions/Additional Instructions: CT angiogram head and neck negative. Chest x-ray negative. COVID, flu, RSV negative. Urine negative for infection. Labs stable. Hemoglobin 15.2. Creatinine 1.25. Continue oral fluids for hydration. Follow-up with your doctor. If your symptoms worsen, return to the ED for reevaluation. Print Language: Czech Disposition Disposition: Home, Self Care Discharge Date/Time: 05/23/24 00:27
--- NOTE | 2024-05-22 22:07 | CT_ITS ---
INDICATION: dizziness EXAMINATION: CT BRAIN WITHOUT CONTRAST, CTA HEAD, AND CTA NECK TECHNIQUE: Noncontrast axial images were obtained of the brain. Subsequently, routine carotid CT angiogram protocol was performed without and with IV contrast. In addition, images were obtained of the [place] of [place]. NASCET criteria using the distal ICAs for comparison were used for evaluation of stenoses. 3D reconstructions were reviewed. The protocol utilizes one or more of the following dose reduction techniques: automated exposure control, adjustment of mA and/or kV according to patient size,and/or use of iterative reconstruction technique. IV Contrast dosage and agent: 100 mL of [id number] COMPARISON: Prior study dated: MRI performed 11/03/2015 FINDINGS: --CT BRAIN WITHOUT CONTRAST: BRAIN PARENCHYMA: No intra- or extra-axial hemorrhage. No evidence of acute infarct. No intracranial mass or mass effect. There is preservation of the causey/white matter interface. Posterior fossa structures are unremarkable. Prior right parietal craniectomy. Underlying encephalomalacia along the sylvian fissure, greatest in the right temporal lobe. This is similar to prior MRI. Associated ex vacuo dilatation of the right lateral ventricle. CSF SPACES: Appropriate for age. No hydrocephalus. Basal cisterns are patent. CALVARIUM, SKULL BASE, PARANASAL SINUSES AND MASTOID AIR CELLS: Clear. No discrete lytic or blastic abnormalities. --CTA NECK: AORTIC ARCH AND BRANCHES: Normal anatomy, patent. Two-vessel branching configuration of the arch. RIGHT CCA: No occlusion, significant stenosis or dissection. RIGHT ICA: No occlusion, significant stenosis or dissection. LEFT CCA: No occlusion, significant stenosis or dissection. LEFT ICA: No occlusion, significant stenosis or dissection. Mild atherosclerotic calcification at the origin without flow-limiting stenosis. RIGHT VERTEBRAL ARTERY: No occlusion, significant stenosis or dissection. LEFT VERTEBRAL ARTERY: No occlusion, significant stenosis or dissection. NECK SOFT TISSUES: Unremarkable. --CTA HEAD: --Anterior circulation: ICAs: No significant stenosis at the intracranial/visualized segments. Mild atherosclerotic calcification bilaterally. ACAs: No significant stenosis at the visualized segments. Diminutive right A1 segment. ACOM: Present. MCAs: No significant stenosis at the visualized segments. --Posterior circulation: PCOMs: Patent bilaterally, diminutive on the right. hourly shift manager: No significant stenosis at the visualized segments. BASILAR ARTERY: No significant stenosis. VERTEBRAL ARTERIES: No significant stenosis at the intradural/visualized segments. No evidence of intracranial aneurysm or vascular malformation. CT/CTA Head AND Neck W/ Contrast IMPRESSION: No acute intracranial finding. 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 No large vessel occlusion or flow-limiting stenosis. Electronically Signed: Live Quiroz MD at 22:44 EST ,
[2024-05-22 22:30] VITALS: BP 123/62; PULSE 82; RESP 18; O2SAT 98
[2024-05-22 22:37] LABS: Mucous, Urine 0 SEEN /hpf (<or=2+); Squamous Epithelial Cells - UA 0 SEEN /hpf (0-5); White Blood Cells 0 SEEN /hpf (0-5)
[2024-05-22 23:05] LABS: Color, Urine Yellow (Yellow); Glucose, Dipstick 1000 mg/dl (Normal); Ketone-Dipstick 15 mg/dl (Negative); Leukocyte Esterase-Dipstick Negative /ul (Negative); Nitrite-Dipstick Negative (Negative); Occult Blood-Urine 10 /ul (Negative); Protein-Dipstick 15 mg/dl (Negative); Specific Gravity, Urine 1.015 (1.002-1.030); Urine Bilirubin Dipstick Negative (Negative); Urine Clarity Clear (Clear); Urine Urobilinogen Normal (Normal)
[2024-05-22 23:19] LABS: Bacteria RARE /hpf (None Seen); Red Blood Cells-Urine 0-5 SEEN /hpf (0-5); Renal Epithelial Cells 0-5 SEEN /hpf (0-5)
[2024-05-23 00:23] VITALS: BP 122/71; PULSE 77; RESP 16; TEMP 36.9; O2SAT 94
[2024-05-25 14:38] LABS: Pathologist Review Reviewed
== END 2024-05-23 00:27 | disposition home or self-care (01) ==
PROVIDERS: Emergency Provider Emergency Medicine; PCP Family Medicine; Visit Provider Emergency Medicine
DX: B34.9 Viral infection, unspecified (principal); E11.42 Type 2 diabetes mellitus with diabetic polyneuropathy; R53.1 Weakness; R42 Dizziness and giddiness; I25.10 Atherosclerotic heart disease of native coronary artery without angina pectoris; Z86.16 Personal history of COVID-19; Z95.5 Presence of coronary angioplasty implant and graft
CPT/HCPCS: 70496; 70498; 71045; 80048; 81001; 82962; 85025; 85610; 85730; 87631; 93005; 99284; Q9967; A4216

== ENCOUNTER 2024-05-24 14:09 | Emergency (ER) | payer MEDICARE, OTHER, SELFPAY ==
[2024-05-24 14:11] VITALS: BP 124/72; PULSE 74; RESP 18; TEMP 36.5; O2SAT 96; BMI 36.1
--- NOTE | 2024-05-24 14:52 | EDS_ITS ---
HPI <CHON Coker - Last Filed: 05/24/24 15:40> History of Present Illness Chief Complaint: Other, Pain/Inj Narrative Narrative: Patient is a 74-year-old male with history of CAD, hypertension hyperlipidemia diabetes who is on Plavix presents to the [facility] with right-sided facial redness and swelling. Patient was seen here 2 days ago, diagnosed with a flulike symptoms, patient was extremely dizzy at that time and received a CTA of the head and neck. This was negative. Patient is he woke up today, his right side of his face was red and swollen. Since has been up has been improved. Patient denies any fever chills, he went to urgent care who they referred to the emergency department. <Dr. Edilberto Manuel DO - Last Filed: 05/24/24 20:27> Narrative Narrative: Patient is a 74-year-old male with history of CAD, hypertension hyperlipidemia diabetes who is on Plavix presents to the emergency department with right-sided facial redness and swelling. Patient was seen here 2 days ago, diagnosed with a flulike symptoms, patient was extremely dizzy at that time and received a CTA of the head and neck. This was negative. No longer complains of dizziness. Patient is he woke up today, his right side of his face was red and swollen. Since has been up has been improved. Patient denies any fever chills, he went to urgent care who they referred to the emergency department. [facility] <CHON Coker - Last Filed: 05/24/24 15:40> [facility] Medical History Low back pain Leg weakness, bilateral Coronary artery disease History of atrial fibrillation Dyslipidemia Obesity Hypotension History of orthostatic hypotension Weakness Abnormality of gait and mobility Left foot drop Polyneuropathy 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 Chest pain Fatigue PALOMO (dyspnea on exertion) Sinus tachycardia COVID-19 Presence of stent in coronary artery (~04/30/13) Pure hypercholesterolemia Essential hypertension Diabetes Claudication in peripheral vascular disease Left ventricular hypertrophy Paroxysmal atrial fibrillation Atherosclerotic heart disease of [place] coronary artery without angina pectoris Home Medications ?Medication ?Instructions ?Recorded ?Last Taken ?Type nortriptyline 25 mg capsule 25 mg PO QHS nerve pain 04/23/13 Unknown History pantoprazole 40 mg tablet,delayed 40 mg PO DAILY acid reflux 04/23/13 10/15/16 History release finasteride 5 mg tablet 5 mg PO DAILY prostate 10/12/16 Unknown History cholecalciferol (vitamin D3) 25 5,000 unit PO DAILY DEFICIENCY 05/05/18 Unknown History mcg (1,000 unit) capsule nitroglycerin 0.4 mg sublingual 0.4 mg sublingual Q5-15M PRN chest 10/26/20 Unknown Rx tablet pain #25 tabs oxybutynin chloride 10 mg 10 mg PO QPM 05/21/22 Unknown History tablet,extended release 24 hr Disability Placard #1 ea 11/29/22 Unknown Rx empagliflozin 12.5 mg-metformin ER 2 tab PO DAILY Diabetes 05/16/23 Unknown History 1,000 mg tablet,extended rel 24 hr (Synjardy XR) levothyroxine 50 mcg tablet 50 mcg PO DAILY 05/16/23 Unknown History lisinopril 20 mg tablet See Rx Instructions .Route 07/15/23 Unknown Rx .COMPLEX #90 tabs Left AFO #1 ea 09/30/23 Unknown Rx glimepiride 2 mg tablet 2 mg PO QDAY 12/02/23 Unknown History tamsulosin 0.4 mg capsule 0.4 mg PO QDAY 12/02/23 Unknown History ezetimibe 10 mg tablet 10 mg PO QHS to lower cholesterol 12/30/23 Unknown Rx #90 tabs gabapentin 300 mg capsule 300 mg PO BID 01/30/24 Unknown History clopidogrel 75 mg tablet 75 mg PO DAILY #90 tabs 03/19/24 Unknown Rx metoprolol tartrate 100 mg tablet 100 mg PO BID #180 TABLETS 05/04/24 Unknown Rx doxycycline hyclate 100 mg capsule 100 mg PO BID #20 caps 05/24/24 Unknown Rx dulaglutide 3 mg/0.5 mL mg subcut 05/24/24 Unknown History subcutaneous pen injector (Trulicity) glimepiride 1 mg tablet PO 05/24/24 Unknown History rosuvastatin 10 mg tablet 10 mg PO QHS 05/24/24 Unknown History Allergy/AdvReac Type Severity Reaction Status Date / Time acetaminophen (From Tylenol) Allergy Severe Anaphylaxis Verified 05/24/24 14:10 Penicillins Allergy Severe Other Verified 05/24/24 14:10 hydromorphone HCl (From AdvReac Severe Other Verified 05/24/24 14:10 Dilaudid) Family History Mother CAD (coronary artery disease) Sister CAD (coronary artery disease) Father Heart disease Surgical History History of lumbosacral spine surgery Presence of coronary angioplasty implant and graft (~04/30/13) History of resection of meningioma Hx of cataract surgery History of lumbar surgery Social History Smoking Status: Never smoker alcohol intake: never substance use type: does not use caffeine: Yes Type: carbonated beverages Number of servings: 1 what type of physical activity do you participate in: none ROS <CHON Coker - Last Filed: 05/24/24 15:40> ROS ED ROS Narrative Constitutional: Negative for fever, chills, weight loss, weakness Eyes: Negative for vision loss, vision change, double vision ENT: Negative for any sore throat, ear pain, congestion. Positive for right- sided facial redness, swelling Cardiovascular: Negative for any chest pain, tightness, palpitations Respiratory: Negative for any cough, sputum production, hemoptysis, dyspnea, dyspnea on exertion, orthopnea Gastrointestinal: Negative for any abdominal pain, nausea, vomiting, diarrhea, constipation, blood in stool, blood in vomit : Negative for any urinary frequency, dysuria, retention, blood in urine Muscle skeletal: Negative for any neck pain, back pain Neurological: Negative for any headache, syncope, dizziness Skin: Negative for any rashes, itching, abrasions, lacerations Psychiatric: Negative for any depression, anxiety, stress, suicidal ideation, homicidal ideation Hematologic: Negative for any excessive bruising, easy bleeding EXAM <CHON Coker - Last Filed: 05/24/24 15:40> Physical Exam Narrative Exam Narrative: Vital signs reviewed. HEET: Head normocephalic atraumatic, TMs clear bilaterally. Posterior pharynx is clear, moist mucous membranes. Nares clear bilaterally. Patient has some erythema, edema to the right of the face. Patient's pupils equal round reactive light. There is no drainage from the eye, there is no injection or subconjunctival hemorrhage. Patient has no evidence to suspect any orbital or periorbital cellulitis. Neck: Supple with no lymphadenopathy or tenderness. No signs of meningismus. Cardiac: Regular rate and rhythm no murmurs gallops or rubs, equal peripheral pulses bilaterally. Respiratory: Lungs clear to auscultation bilaterally. No chest tenderness. Abdomen: Soft, nontender, nondistended. No abdominal bruit or pulsatile masses. No hepatosplenomegaly Extremities: No peripheral edema, no signs of gross trauma or deformity. Active full range of motion of all extremities. Neuro: Cranial nerves II through XII intact, no focal neurological deficits. Skin: Clean dry and intact with no rash, purpura, petechiae, vesicles or pustules. Backs/flank: No CVA tenderness, no midline spinal tenderness, no deformity. Psych: Normal mood and affect. No SI, HI or acute psychosis. Const Vital Signs: 05/24/24 14:11 05/24/24 14:17 Temperature 97.7 F L Temperature Source Oral Pulse Rate 74 Respiratory Rate 18 Respiratory Pattern Normal Blood Pressure 124/72 H Blood Pressure Mean 89 Pulse Ox 96 Oxygen Delivery Method Room Air <Dr. Edilberto Manuel DO - Last Filed: 05/24/24 20:27> Physical Exam Const Vital Signs: 05/24/24 14:11 05/24/24 14:17 Temperature 97.7 F L Temperature Source Oral Pulse Rate 74 Respiratory Rate 18 Respiratory Pattern Normal Blood Pressure 124/72 H Blood Pressure Mean 89 Pulse Ox 96 Oxygen Delivery Method Room Air [facility] <CHON Coker - Last Filed: 05/24/24 15:40> [facility] Treatment and Re-Evaluation :: Differential diagnosis includes however is not limited to: Facial cellulitis, sinusitis, preseptal cellulitis, orbital cellulitis conjunctivitis Patient appears generally well, vital signs are stable, patient is nontoxic- appearing. Patient presents to the emerged part with right-sided facial pain, redness. Physical examination is consistent with more of a sinusitis, superficial cellulitis. Patient is allergic to penicillin, we placed on doxycycline twice a day for 10 days. Will treat both the cellulitis well as the sinus infection. Patient instructed return for any worsening symptoms. Patient again has no evidence suspect any deep tissue infection orbital cellulitis, periseptal cellulitis. Patient stable for discharge. <Dr. Edilberto Manuel DO - Last Filed: 05/24/24 20:27> [facility] Treatment and Re-Evaluation :: Differential diagnosis includes however is not limited to: Facial cellulitis, sinusitis, preseptal cellulitis, orbital cellulitis conjunctivitis Patient appears generally well, vital signs are stable, patient is nontoxic- appearing. Patient presents to the emergency department with right-sided facial pain, redness. Physical examination is consistent with more of a sinusitis, superficial cellulitis. Patient is allergic to penicillin, we placed on doxycycline twice a day for 10 days. Will treat both the cellulitis well as the sinus infection. Patient instructed return for any worsening symptoms. Patient again has no evidence suspect any deep tissue infection, cavernous sinus thrombosis, orbital cellulitis, periseptal cellulitis. Patient stable for [facility] ED attending note: I evaluated the patient in conjunction with the KARL. I agree with his/her statements and above findings. I have personally performed a face to face assessment of the patient and have reviewed the KARL Note. I performed a substantive portion of the visit including all aspects of the following. I personally saw the patient performed chart review, physical exam, reviewed labs, imaging (if obtained), and formulated a treatment and management plan. This note was generated with [employer] dictation software. It may contain incorrect words, spelling, and punctuation that were not noted in review of the chart prior to signing. Discharge Plan Triage Chief Complaint: Other, Pain/Inj ED Midlevel Provider: Connor Fernandez ED Provider: dEilberto Manuel Dx/Rx/DC Orders Clinical Impression: Sinusitis, Cellulitis Instructions: ED Cellulitis, ED Sinusitis (Antibiotic Treatment) Prescriptions: New doxycycline hyclate 100 mg capsule 100 mg PO BID Qty: 20 0RF No Action cholecalciferol (vitamin D3) 1,000 unit capsule 5,000 unit PO DAILY nitroglycerin 0.4 mg tablet, sublingual 0.4 mg sublingual Q5-15M PRN (Reason: chest pain) Qty: 25 3RF Rx Instructions: do not exceed 3 doses per episode oxybutynin chloride 10 mg tablet extended release 24hr 10 mg PO QPM (DME) Disability Placard See Rx Instructions .Route .MEDSUPPLY Qty: 1 0RF Rx Instructions: Expiration: 11/29/2025 Synjardy XR 12.5-1,000 mg tablet, IR - ER, biphasic 24hr 2 tab PO DAILY levothyroxine 50 mcg tablet 50 mcg PO DAILY (DME) Left AFO See Rx Instructions .Route .MEDSUPPLY Qty: 1 0RF Rx Instructions: As directed gabapentin 300 mg capsule 300 mg PO BID tamsulosin 0.4 mg capsule 0.4 mg PO QDAY glimepiride 2 mg tablet 2 mg PO QDAY nortriptyline 25 MG capsule 25 mg PO QHS pantoprazole 40 MG tablet 40 mg PO DAILY finasteride 5 MG tablet 5 mg PO DAILY glimepiride 1 mg tablet PO rosuvastatin 10 mg tablet 10 mg PO QHS Trulicity 3 mg/0.5 mL pen injector subcut lisinopril 20 mg tablet See Rx Instructions .ROUTE .COMPLEX Qty: 90 3RF Dose Instruction: TAKE 1 TABLET BY MOUTH DAILY FOR HIGH BLOOD PRESSURE Rx Instructions: TAKE 1 TABLET BY MOUTH DAILY FOR HIGH BLOOD PRESSURE ezetimibe 10 mg tablet 10 mg PO QHS Qty: 90 3RF clopidogrel 75 mg tablet 75 mg PO DAILY Qty: 90 3RF metoprolol tartrate 100 mg tablet 100 mg PO BID Qty: 180 3RF Primary Care Provider: Connor Kohli Referrals: Connor Kohli MD [Primary Care Provider] - Activity Restrictions/Additional Instructions: Please take the antibiotics until finished. Print Language: Danish Disposition Disposition: Home, Self Care Discharge Date/Time: 05/24/24 15:53
[2024-05-24] MEDS: Doxycycline 100 MG CAPSULE PO (15:41)
== END 2024-05-24 15:53 | disposition home or self-care (01) ==
PROVIDERS: Emergency Provider Emergency Medicine; PCP Family Medicine; Visit Provider Emergency Medicine
DX: J32.9 Chronic sinusitis, unspecified (principal); E11.42 Type 2 diabetes mellitus with diabetic polyneuropathy; I25.10 Atherosclerotic heart disease of native coronary artery without angina pectoris; L03.90 Cellulitis, unspecified; E78.00 Pure hypercholesterolemia, unspecified; I10 Essential (primary) hypertension; Z79.84 Long term (current) use of oral hypoglycemic drugs; Z79.899 Other long term (current) drug therapy; Z79.01 Long term (current) use of anticoagulants; Z86.16 Personal history of COVID-19; Z95.5 Presence of coronary angioplasty implant and graft
CPT/HCPCS: 99282

== ENCOUNTER → 2024-05-29 | Outpatient (CLI) | payer MEDICARE, OTHER, SELFPAY ==
--- NOTE | 2024-05-29 06:24 | ECHOD_ITS ---
Reason For Study: CAD/ASHD Procedure This was a 2D Doppler, Color Flow transthoracic echocardiogram. Exam performed in department. Left Ventricle Normal LV size. The estimated ejection fraction is 60 %. No evidence for diastolic dysfunction. No regional wall motion abnormalities noted. Right Ventricle Normal RV size. Normal systolic function. Atria The left and right atria are normal. No doppler evidence for ASD. Mitral Valve There is no mitral valve stenosis. No mitral valve insufficiency. Tricuspid Valve There is no tricuspid stenosis. Trivial tricuspid valve insufficiency. Unable to estimate RV systolic pressure due to insufficient tricuspid regurgitant envelope. Aortic Valve Aortic sclerosis, no stenosis. Trisinus/trileaflet aortic valve. There is no aortic stenosis. No aortic valve insufficiency. Pulmonic Valve There is no pulmonic valvular stenosis. No pulmonic valve insufficiency. Great Vessels Normal aortic root. Pericardium/Pleural No pericardial effusion. MMode/2D Measurements & Calculations LVOT diam: 2.1 cm LAV(MOD-bp): 32.4 ml LVAd ap4: 24.9 cm2 LVOT area: 3.6 cm2 LAV(MOD-bp) Indexed: 15.8 ml/m2 LVLd ap4: 8.2 cm LAV(MOD-sp2): 26.2 ml EDV(MOD-sp4): 67.0 ml LAV(MOD-sp4): 36.9 ml EDV(sp4-el): 64.8 ml LVAs ap4: 14.5 cm2 LVLs ap4: 6.9 cm ESV(MOD-sp4): 26.3 ml ESV(sp4-el): 26.0 ml EF(MOD-sp4): 60.7 % EF(sp4-el): 59.9 % SV(MOD-sp4): 40.6 ml SV(sp4-el): 38.8 ml LA A4 area: 14.5 cm2 SI(MOD-sp4): 19.8 ml/m2 LA dimension(2D): 3.1 cm RA A4 area: 10.2 cm2 Time Measurements MV dec time: 0.24 sec Doppler Measurements & Calculations MV E max efren: 67.5 cm/sec Lat Peak E' Efren: 9.2 cm/sec Med Peak E' Efren: 5.0 cm/sec MV A max efren: 90.3 cm/sec E/E' lat: 7.3 E/E' med: 13.4 MV E/A: 0.75 MV V2 max: 93.6 cm/sec MV dec slope: 287.4 cm/sec2 Ao V2 max: 106.2 cm/sec MV max P.5 mmHg Ao max P.5 mmHg MV V2 mean: 48.0 cm/sec Ao V2 mean: 69.9 cm/sec MV mean P.2 mmHg Ao mean P.3 mmHg MV V2 VTI: 36.8 cm Ao V2 VTI: 24.3 cm MVA(VTI): 1.8 cm2 AV (velocity ratio): 0.77 BRENNAN(I,D): 2.7 cm2 BRENNAN(V,D): 2.7 cm2 LV V1 max: 79.0 cm/sec SV(LVOT): 66.4 ml PA V2 max: 72.4 cm/sec LV V1 max P.5 mmHg PA V2 mean: 46.1 cm/sec LV V1 mean P.3 mmHg LV V1 mean: 53.5 cm/sec LV V1 VTI: 18.6 cm ECHO/Echo Complete Interpretation Summary The estimated ejection fraction is 60 %. No evidence for diastolic dysfunction. Ordering Physician: Alyson Collier Referring Physician: Alyson Collier Performed By: Frieda Rondon RCS
--- NOTE | 2024-06-02 14:13 | STRESSREP_ITS ---
Stress Test Report Date: 06/02/2024 Procedure: Pharmacologic stress nuclear imaging study Indications: Coronary artery disease Consent: Per the patient Procedure: The patient underwent pharmacologic (Regadenoson) evaluation with a peak heart rate of 74 beats per minute (50%predicted maximal heart rate) and a peak blood pressure of 114/74 mmHg. The baseline ECG demonstrated normal sinus rhythm. EKG during lexiscan infusion revealed no significant ischemic changes. EKG post infusion revealed no significant ischemic changes [There were no cardiac dysrhythmias pretest, during pharmacologic infusion, or recovery]. [There was no complaint of chest discomfort during pharmacologic infusion or recovery]. The examination was discontinued secondary to completion of protocol. Impression: 1. Lexiscan stress test test is negative for Lexiscan infusion induced EKG changes of ischemia. 2. Lexiscan stress test test is negative for Lexiscan infusion induced chest pain. 3. Results of the nuclear portion of the test is as below Myocardial perfusion imaging study: Technique: The patient was injected with 15 millicuries of technetium 99m Cardiolite and subsequently rest SPECT Cardiolite nuclear imaging was obtained in the horizontal long, vertical long, and short axis views. The patient underwent pharmacologic [Regadenoson 0.4mg] evaluation. Please see above for details. The patient was injected with 45 millicuries of technetium 99m Cardiolite and subsequently stress SPECT Cardiolite nuclear imaging was obtained in the horiz ontal long, vertical long, and short axis views. A gated Cardiolite study at peak stress was obtained. Interpretation: Rest and stress SPECT Cardiolite nuclear imaging status post realignment, no rmalization, and attenuation correction demonstrate no evidence of significant ischemia or infarction. Gated images reveal no significant regional wall motion abnormalities. The reported LVEF is 67%. Impression: 1. There is no evidence of significant ischemia or infarction. 2. Estimated ejection fraction is 67%. This note was generated with [employer] software. It may contain incorrect words, spelling, and punctuation that were not noted in checking the note before signing.
== END | disposition home or self-care (01) ==
LOC: CVS 06:23
PROVIDERS: PCP Family Medicine; Referring Provider Internal Medicine Cardiovascular Disease; Visit Provider Internal Medicine Cardiovascular Disease
DX: I25.10 Atherosclerotic heart disease of native coronary artery without angina pectoris (principal); I10 Essential (primary) hypertension; I51.7 Cardiomegaly; E78.00 Pure hypercholesterolemia, unspecified; R53.83 Other fatigue; Z86.79 Personal history of other diseases of the circulatory system; Z95.5 Presence of coronary angioplasty implant and graft
CPT/HCPCS: 78452; 93017; 93306; A9500; A4216; J2785

== ENCOUNTER 2024-06-29 09:00 | Outpatient (RCR) | payer MEDICARE, OTHER, SELFPAY ==
--- NOTE | 2024-05-21 14:28 | HP.PTEVAL ---
Patient's Visit Information Visit Information Visit Information: GRACIE TEMPLE is a 74 year old M referred to Physical Therapy by NIRAV HEARD with a diagnosis of LUMBAR RADICULOPATHY. Date of Evaluation: 05/21/24 Physical Therapist: Gaviota Gillespie, PT, Cert MDT Visit Plan Frequency: 2x /Week Duration: 4-6 Weeks Plan: *USE GAIT BELT AND KEEP CHAIR/W/C BEHIND PATIENT. PATIENT HAS EPISODES OF SUDDEN LOSS OF LE CONTROL* Gait training with appropriate assistive device as patient will allow. Neutral Spine Core Stability Exercises and Vandana LE Hip Flexor, Hamstring and Calf Stretching to help reduce stress to the Lumbar Spine with all Daily Activities. Vandana LE Strengthening. Instruction in Proper Posture Control, Body Mechanics, and Appropriate Activity Modifications. HEP Instruction. Subjective Subjective: Work/Leisure: RETIRED Present symptoms: LOW BACK PAIN, VANDANA HIP AND LE PAIN L>R. PATIENT RELATES THE L LE PAIN AND WEAKNESS BEING GREATER ON THE LEFT TO HIS STROKE IN ~2000 OR 2 WHEN HE HAD SX FOR BRAIN TUMOR. Present since: CHRONIC Pain Scale: WORST 7/10, LEAST 0/10 Currently: 0/10 - SITTING. Is it getting better, worse or staying the same: STAYING THE SAME Commenced as a result of: NO APPARENT REASON OTHER THAN HARD WORK. Symptoms at onset: LOW BACK PAIN Worse: STANDING AND WALKING. Better: SITTING AND LYING Disturbed sleep: NO Previous history/Previous treatment: 2 LOW BACK SURGERIES WITH MOST RECENT ONE AT LEAST 6 OR 7 YEARS AGO - PLATE, SCREWS AND RODS (ONE OF THE RODS IS BENT). PAIN MGMT INJECTIONS. PHYSICAL THERAPY MULTIPLE TIMES. PATIENT REPORTS THE INJECTIONS HELPED THE MOST AND HE COULDN'T TELL ANY DIFFERENCE WITH THE PHYSICAL THERAPY OTHER THAN IT GOT HIM UP OFF THE COUCH. Treatment this episode: NONE. TESTS ORDERED AND PT CONSULT. Coughing/sneezing/straining: NEGATIVE FOR INCREASED PAIN PER PATIENT REPORT. Gait: TIME AND DISTANCE LIMITED - ABOUT 1/8 MILE. LIMPS AND DRAGS L FOOT. STATES HE GOES PARALIZED FROM THE WAIST DOWN AND HITS THE GROUND WHEREVER HE IS AT WHEN IT HAPPENS. THIS STARTED ABOUT A YEAR AGO AND HAS GOT WORSE IN THE LAST 6 MONTHS - LAST FALL WAS ABOUT 10 DAYS AGO. STATES HE HAS ABOUT 30 SEC NOTICE TO GET SEATED BEFORE HE FALLS. USUALLY OCCURS ONCE A WEEK OR MORE. NOT USING ANY ASSISTIVE DEVICES. Bowel or Bladder Dysfunction: YES - LOSS OF BLADDER CONTROL X >1 YEAR. KARL'T WITH UROLOGIST IN JUNE FOR BOTOX TREATMENT. RECENT MEDICATION CHANGE TOO. Accidents: NO Unexplained weight loss: NO Imagin MRI'S AND EMG TEST PENDNING IN [place] WITH DR. HEARD JUNE 08 2024. NO RECENT X-RAYS. OTHER: PATIENT REPORTS HE IS WILLING TO TRY THERAPY AGAIN BECAUSE HE IS GETTING WEAKER. HE STATES HE WOULD LIKE TO TRAVEL BUT IT IS A waisted TRIP FOR HIM AT THIS POINT BECAUSE HE CAN'T GET OUT AND GET AROUND AND SEE ANYTHING. HE STATES HE HATES TO SAY IT BUT HE WOULD EVEN LIKE TO BE ABLE TO FOLLOW HIS AROUND THE [facility]. PMH/Recent major surgery: Low back pain Leg weakness, bilateral Coronary artery disease History of atrial fibrillation Dyslipidemia Obesity Hypotension History of orthostatic hypotension Weakness Abnormality of gait and mobility Left foot drop Polyneuropathy 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 Chest pain Fatigue PALOMO (dyspnea on exertion) Sinus tachycardia COVID-19 Presence of stent in coronary artery ~04/30/13 Pure hypercholesterolemia Essential hypertension Diabetes Claudication in peripheral vascular disease Left ventricular hypertrophy Paroxysmal atrial fibrillation Atherosclerotic heart disease of [place] coronary artery without angina pectoris History of lumbosacral spine surgery Presence of coronary angioplasty implant and graft ~04/30/13 History of resection of meningioma Hx of cataract surgery Objective Objective: Sitting/Standing Posture: INCREASED LORDOSIS AND ANTERIOR PELVIC TILT IN STANDING. Other Observations: INDEP GAIT INTO PT WITHOUT ANY ASSISTIVE DEVICES WITH LIMP ON LLE, L HIP HIKE, L FOOT DROP, DECREASED VANDANA STRIDE LENGTH AND CADANCE. NO LOB. SOB. PATIENT REFUSING TO NEED TO TAKE BREAK OR USE AD DURING WALK BACK TO TREATMENT ROOM FROM [facility]. Sensory deficit: VANDANA LE LIGHT TOUCH SENSATION GROSSLY INTACT AND SYMMETRICAL WITH PATIENT DENYING NUMBNESS AT THE MOMENT BUT REPORTS THE ENERGY DRAINS OUT OF HIS LEGS WITH PROLONGED STANDING AND WALKING AT TIMES AND HIS LEGS GIVE OUT. EMG PENDING JUN 08 IN [place]. ROM deficit: VANDANA LE HIP FLEX, HS AND CALF TIGHTNESS. L FOOT DROP. Motor deficit: LLE WEAKNESS > R. R HIP 4/5, KNEE 4/5, ANKLE 4/5. L HIP 3+/5, KNEE EXT 3+/5, KNEE FLEX 4-/5, ANKLE 2-/5. Transfers: UNABLE TO TRANSFER SIT TO STAND WITHOUT UE ASSIST WITHOUT CHAIR SECURED. Lumbar mvmt loss: flex - MIN TO MOD - P VANDANA LBP - NW ext - ABDIRAHMAN R SG - ABDIRAHMAN L SG - ABDIRAHMAN Core strength: POOR Balance: SLS R LE X 5 SEC WITHOUT UE ASSIST. UNABLE TO SLS ON L LE WITHOUT UE ASSSIT. UNABLE TO TANDEM STANCE. Palpation: PATIENT DENIES TENDERNESS WITH PALPATION OF LOWER THORACIC, LUMBAR AND SI JT REGIONS. INCREASED MUSCLE TONE VANDANA PARASPINALS. OTHER: DISCUSSED BENEFITS OF USE OF ASSISTIVE DEVICES FOR PAIN AND SAFETY AT LENGTH WITH PATIENT AND HE IS RELUCTANT. STATES HE DOES USE A WALKING STICK AT TIMES. Balance/Special Test Scores Oswestry Low Back Score: 11 Goals Goal 1:: DECREASE C/O BACK AND LE SX'S BY AT LEAST 50% TO EASE ADL'S. Goal Time Frame: 4-6 Weeks Goal 2:: IMPROVE STANDING AND WALKING FUNCTION Goal Time Frame: 4-6 Weeks Goal 3:: INSTRUCT IN PROPHYLAXIS Goal Time Frame: 4-6 Weeks Rehabilitation Potential Physical Therapy Diagnosis: TRUNK AND LE STIFFNESS, CORE AND LE WEAKNESS L>R, DIFFICULTY STANDING AND WALKING AND INTERMITTENT SUDDEN LOSS OF LE STRENGTH DURING WEIGHT BEARING. Rehabilitation Potential: Fair Anticipated Interventions Patient/Client Instruction: Educate patient on: Condition, Plan of Care and Risk Factors For the Purpose of:: To improve self management Therapeutic Exercise to Include: Strength training, Endurance training, Balance training, Body mechanics, Postural training, Flexibilty training, Gait and locomotor training, Neuromotor development and Dynamic Lumbar Stabilization For the Purpose of:: To decrease pain, To improve muscle performance and motor function, To improve ability to perform ADL's, To increase tolerance to activity/condition/position, To improve ability of physical actions for home/community/work/leisure, To improve gait and locomotor functions, To increase flexibility/ROM and To improve self management Cryotherapy (ice pack, ice massage): Yes Thermo therapy (hot pack): Yes For the Purpose of:: To decrease pain, To decrease swelling/inflammation and To improve nutrient delivery to tissue Text: Thank you for the opportunity to evaluate your patient. For Medicare and Medicare HMO plans, please review the plan of care and approve it. It will need to be FAXED BACK to us at [phone] for Medicare purposes. For Medicare only, by signing this I certify the plan of care. Please let me know if there are questions or concerns regarding this plan of care. Physician Signature: Date:
--- NOTE | 2024-06-29 11:13 | HP.PTDCSUM ---
Discharge Summary D/C summary: It has been my pleasure to treat GRACIE TEMPLE referred by NIRAV HEARD, with the diagnosis of LUMBAR RADICULOPATHY for a total of 10 visit(s). Discharge Date: 06/29/24 Please see the following information for a summary of their discharge status. Subjective Subjective: PATIENT REPORTS THERAPY HAS BEEN GOING GOOD, HE ISN'T IN QUITE SO MUCH PAIN BUT HER STILL CAN'T WALK VERY FAR AT ALL. HE STATES HE STILL HASN'T HAD ANY MORE OF THE EPISODES OF PARALIZING WEAKNESS OR PAIN THAT WERE CAUSING HIS LEGS TO START TO GIVE OUT (HE STATES AT THESE TIMES HE WOULD LOWER HIMSELF TO THE GROUND AND AFTER A FEW SECONDS HE COULD GET BACK UP AND GO AGAIN). HE REPORTS THOSE EPISODES WERE TYPICALLY OCCURING WHEN IT WAS NICER OUT AND HE WAS TRYING TO WALK FROM THE HOUSE TO THE BARN ([place] - PRETTY STEEP) AND BACK (UP [place] - WHEN IT WOULD OCCUR) AND HE HASNT' TRIED TO GO THAT FAR SINCE STARTING PT. HE REPORTS COMPLIANCE WITH HIS HEP TO FATIGUE. PATIENT REPORTS HE HAS NOTICED HE CAN STAND UP OFF THE SOFA MUCH EASIER NOW THAN HE COULD BEFORE STARTING PT. Overall Improvement % Improvement: 10 Objective Objective/Function: PATIENT WAS SEEN TODAY FOR RE-ASSESSMENT OF PROGRESS TOWARD THE SET PT GOALS AND THE NEED FOR FURTHER PHYSICAL THERAPY VS READINESS FOR DISCHARGE. UPON EXAM TODAY THERE ARE NO SIGNIFICANT CHANGES IN PATIENTS GAIT AND PATIENT CONTINUES TO ARRIVE WITHOUT AD. HE REMAINS RESISTANT TO AD USE RECOMMENDATIONS. HE COMMUNICATES A GOOD UNDERSTANDING OF THE REASONING FOR THE RECOMMENDATION AND FOR ALL INSTRUCTIONS GIVEN TODAY AND IS EXPRESSING GRADITUDE FOR THE HELP WE HAVE GIVEN HIM. HE IS NOW ABLE TO DEMO INDEP SIT TO STAND WITHOUT UE ASSIST OR HAVING CHAIR SECURED BUT HE CAN ONLY COMPLETE X 2 BEFORE HIS LEGS FAIL HIM (30 STS TEST = 2). TUG TIME = 19.80 SEC WITHOUT AD OR LOB. PATIENT REPORTS HE ACTUALLY WENT INTO [employer] THE OTHER DAY TO SHOP WITH HIS BUT ONLY MADE IT TWO AILS. HE STATES THIS IS THE FIRST TIME IN A LONG TIME HE EVEN FELT HE COULD GO IN WITH HER. THIS A LONG WITH HIS IMPOVED LE FUNCTIONAL STRENGTH MAKES HIM A GOOD CANDIDATE TO CONTINUE PT TO TRY TO PROGRESS FURTHER BUT HE IS REQUESTING TO STOP PT AT THIS TIME. HE STATES THEY ARE GOING TO GO TO [place] SOON AND TRY TO GET HIS MRI MOVED UP BUT WILL CONTINUE HIS HEP. HE STATES HE WILL CONTACT HIS DOCTOR AND US IF HE FEELS HE NEEDS TO RETURN. Goals Goal 1:: DECREASE C/O BACK AND LE SX'S BY AT LEAST 50% TO EASE ADL'S. Goal Progress: Progressing slowly Goal 2:: IMPROVE STANDING AND WALKING FUNCTION Goal 3:: INSTRUCT IN PROPHYLAXIS Goal Progress: Progressing Plan Plan: D/C AT PATIENTS REQUEST. D/C Information d/c sentence: If there are questions or concerns regarding this patient's physical therapy, please feel free to call me at [phone]. Thank you for the referral of this patient. Sincerely, Gaviota Gillespie, PT, Cert MDT Balance/Gait/Functional tests Balance/Special Test Scores Oswestry Low Back Score: 15 Improvement % Improvement: 10
== END 2024-06-29 12:51 | disposition home or self-care (01) ==
LOC: PT 09:00
PROVIDERS: PCP Family Medicine
DX: M54.16 Radiculopathy, lumbar region (principal)
CPT/HCPCS: 97110; 97162; 97530

== ENCOUNTER 2024-07-29 15:16 | Observation (INO) | payer MEDICARE, OTHER, SELFPAY ==
--- NOTE | 2024-07-17 07:04 | EKG12_ITS ---
Test Reason : PREOP Blood Pressure : */* mmHG Vent. Rate : 67 BPM Atrial Rate : 67 BPM P-R Int : 154 ms QRS Dur : 88 ms QT Int : 406 ms P-R-T Axes : 30 9 37 degrees QTcB Int : 429 ms Normal sinus rhythm Normal ECG Confirmed by FERMÍN MAY, SHAWNA ([id number]), photograph editor LIZBETH SAMANIEGO ([id number]) on 07/17/2024 10:54:30 AM Referred By: Avinash Lombardi Confirmed By: SHAWNA KOVACS MD
[2024-07-17 07:47] LABS: Hematocrit 48.2 % (40-54); Hemoglobin 15.4 g/dL (13.0-16.5); Mean Corpuscular Hgb 30.6 pg (27.0-32.0); Mean Corpuscular Volume 95.8 fL (80-94); Mean Platelet Vol. 10.2 fl (6.2-12.0); Platelet Count 230 K/mm3 (150-450); RBC Distribution Width CV 13.2 % (11.6-14.6); RBC Distribution Width SD 47.5 fl (35.1-43.9); Red Blood Count 5.03 M/mm3 (4.6-6.2); White Blood Count 10.1 K/mm3 (4.4-11.0)
[2024-07-17 08:42] LABS: Anion Gap 6 (5-15); BUN 15 mg/dL (7-18); BUN/Creat Ratio 11.5 RATIO (10-20); Calcium,Total 8.9 mg/dL (8.5-10.1); Chloride 107 mmol/L (98-107); Creatinine, Serum 1.31 mg/dL (0.70-1.30); EST Glomerular Filtration Rate 57 mL/min (>60); Est Glom Filt Rate - Afr Amer 69 mL/min (>60); Glucose 133 mg/dL (74-106); Potassium 3.8 mmol/L (3.5-5.1); Sodium Level 139 mmol/L (136-145)
--- NOTE | 2024-07-17 12:03 | PAT.ANESEVAL ---
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 When Was Last Pacemaker Check QUESTION #4 FULL TEXT: You/Your Family Experience fever (hyperthermia) with Anesthesia Last Oral Intake Last Oral intake: Last Oral Intake NPO since Meds taken in AM with sips of water? Meds patient instructed to take am of surgery PONV PONV - locomotive repairer diesel: PONV - locomotive repairer diesel Female No 07/15/24 10:07 HX of Motion Sickness No 07/15/24 10:07 HX of N/V After Surgery No 07/15/24 10:07 Non-Smoker Yes 07/15/24 10:07 Duration of Surgery greater Yes 07/15/24 10:07 than 60 minutes Number of Risk Factors 2 07/15/24 10:07 PONV Score Moderate Risk 07/15/24 10:07 Height & Weight Height & Weight: Anesthesia: Height & Weight Height 5 ft 5 in 05/24/24 14:11 Respiratory Assessment Respiratory Assessment - locomotive repairer diesel: Respiratory Tract Infection Hx - locomotive repairer diesel Hx Respiratory Tract Infection No 07/15/24 10:07 STOP Sleep Apnea STOP Sleep Apnea - locomotive repairer diesel: STOP Sleep Apnea - locomotive repairer diesel Hx Hypertension Yes: CONTROLLED WITH MEDS 07/15/24 10:07 Hx Sleep Apnea Yes 07/15/24 10:07 CPAP Yes 07/15/24 10:07 BIPAP No 07/15/24 10:07 Do you snore loudly (louder than talking or can be heard Do you often feel tired/ fatigued/ sleepy during daytime? Has anyone observed you stop breathing during sleep? STOP Results Positive 07/15/24 10:07 QUESTION #5 FULL TEXT : Do you snore loudly (louder than talking or can be heard through closed doors)? 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 Specify any problems Hx of Preganancy in last 3 N/A 07/15/24 10:07 Months Nurse Filling Out Transfusion DSCHRIBER 07/15/24 10:07 & Questions: Date: 07/15/24 07/15/24 10:07 Time: 10:08 07/15/24 10:07 Patient unable to answer at this time (ie. confused, unrespo /Reproduction History /Reproductive History - locomotive repairer diesel: /Reproductive Hx- locomotive repairer diesel Hx Now No 07/15/24 10:07 Gestational Age (in weeks): EDC: Hx Hx Para Hx Section SAB No 07/15/24 10:07 [facility] Medical History (Updated 07/15/24 @ 10:23 by Yazmin Urena) Facial cellulitis Loss of hearing Wears glasses Wears dentures Fungus infection Diabetes Thyroid disease Arthritis Bladder disease Prostate disease High cholesterol Back pain TIA (transient ischemic attack) Balance disorder Seizures Dietary restriction Gastric reflux CPAP (continuous positive airway pressure) dependence Shortness of breath on exertion History of pain when walking History of echocardiogram History of stress test Cardiology follow-up encounter History of orthostatic hypotension Hypotension Obesity Dyslipidemia History of atrial fibrillation Coronary artery disease Weakness Abnormality of gait and mobility Low back pain Left foot drop Polyneuropathy 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 Leg weakness, bilateral Chest pain Fatigue PALOMO (dyspnea on exertion) Sinus tachycardia COVID-19 Presence of stent in coronary artery (~04/30/13) Pure hypercholesterolemia Essential hypertension Diabetes Claudication in peripheral vascular disease Left ventricular hypertrophy Paroxysmal atrial fibrillation Atherosclerotic heart disease of [place] coronary artery without angina pectoris Home Medications ?Medication ?Instructions ?Recorded ?Last Taken ?Type nortriptyline 25 mg capsule 25 mg PO QHS nerve pain 04/23/13 Unknown History pantoprazole 40 mg tablet,delayed 40 mg PO DAILY acid reflux 04/23/13 10/15/16 History release finasteride 5 mg tablet 5 mg PO QHS prostate 10/12/16 Unknown History cholecalciferol (vitamin D3) 25 5,000 unit PO DAILY DEFICIENCY 05/05/18 Unknown History mcg (1,000 unit) capsule nitroglycerin 0.4 mg sublingual 0.4 mg sublingual Q5-15M PRN chest 10/26/20 Unknown Rx tablet pain #25 tabs oxybutynin chloride 10 mg 10 mg PO QPM 05/21/22 Unknown History tablet,extended release 24 hr Disability Placard #1 ea 11/29/22 Unknown Rx empagliflozin 12.5 mg-metformin ER 2 tab PO DAILY Diabetes 05/16/23 Unknown History 1,000 mg tablet,extended rel 24 hr (Synjardy XR) levothyroxine 50 mcg tablet 50 mcg PO DAILY 05/16/23 Unknown History Left AFO #1 ea 09/30/23 Unknown Rx glimepiride 2 mg tablet 2 mg PO QDAY 12/02/23 Unknown History tamsulosin 0.4 mg capsule 0.4 mg PO QHS 12/02/23 Unknown History ezetimibe 10 mg tablet 10 mg PO QHS to lower cholesterol 12/30/23 Unknown Rx #90 tabs gabapentin 300 mg capsule 300 mg PO BID 01/30/24 Unknown History clopidogrel 75 mg tablet 75 mg PO DAILY #90 tabs 03/19/24 Unknown Rx metoprolol tartrate 100 mg tablet 100 mg PO BID #180 TABLETS 05/04/24 Unknown Rx doxycycline hyclate 100 mg capsule 100 mg PO BID #20 caps 05/24/24 Unknown Rx dulaglutide 3 mg/0.5 mL 3 mg subcut SA 05/24/24 Unknown History subcutaneous pen injector (Trulicity) rosuvastatin 10 mg tablet 10 mg PO QHS 05/24/24 Unknown History lisinopril 20 mg tablet 20 mg PO QHS 07/15/24 Unknown History Allergy/AdvReac Type Severity Reaction Status Date / Time acetaminophen (From Tylenol) Allergy Severe Anaphylaxis Verified 07/15/24 09:58 Penicillins Allergy Severe Other Verified 07/15/24 09:58 hydromorphone HCl (From AdvReac Severe Other Verified 07/15/24 09:58 Dilaudid) Family History Mother CAD (coronary artery disease) Sister CAD (coronary artery disease) Father Heart disease Surgical History (Updated 07/15/24 @ 10:21 by Yazmin Urena) History of esophagogastroduodenoscopy (EGD) Hx of colonoscopy History of umbilical hernia repair History of lumbar fusion Hx of right cataract extraction Hx of left cataract extraction History of lumbosacral spine surgery Presence of coronary angioplasty implant and graft (~04/30/13) History of resection of meningioma Social History Smoking Status: Never smoker alcohol intake: never substance use type: does not use caffeine: Yes Type: carbonated beverages Number of servings: 1 what type of physical activity do you participate in: none Audit: Pertinent Findings Pertinent Findings EKG Perinent findings: 07/17/2024 normal sinus rhythm 67 normal EKG Stress test pertinent findings: 06/02/2024 no ischemia or infarction EF 67% Echo (EF%) pertinent findings: 05/29/2024 EF 60% no evidence for diastolic dysfunction Consult pertinent findings: Cardiology 05/05/2024 chronic coronary artery disease coronary artery stent chronic essential hypertension chronic all stable Recommendation Anesthesia Recommendation Anesthesia recommendation: OPTIMIZED for anesthesia
[2024-07-17 15:43] LABS: Hemoglobin A1c 7.7 % (3.8-5.6)
[2024-07-29] VITALS (12 sets, daily range): BP systolic 98–132; BP diastolic 54–78; PULSE 64–96; RESP 16–18; TEMP 36.2–37.1; O2SAT 88–98; BMI 34.4; BMI 34.5
--- NOTE | 2024-07-29 12:38 | PCM.PRE.AN2 ---
ASA Classification* ASA Classification ASA Classification: 3 Assessment & Plan Anesthesia* Anesthesia Assessment Anesthesia Assessment: Discussed sedation and/or anesthesia options, risks, benefits, and alternatives with patient/parents/legal guardian/POA. Questions invited. The patient/parents/legal guardian/POA seems to understand and agrees to proceed with anesthesia plan. Reviewed the physical assessment, medical history, allergy history and patient home medications list prior to surgery/procedure/anesthetic and documented any changes. Performed airway and anesthesia risk assessments. Anesthesia Type Anesthesia Type: General Anesthesia Focused Assessment* Airway Assessment Mouth opens: >3 cm Mallampati Score: II Focused Labs Anesthesia Preop lab: CBC WBC 10.1 K/mm3 (4.4-11.0) 07/17/24 07:07/17/24 RBC 5.03 M/mm3 (4.6-6.2) 07/17/24 07:30 07/17/24 Hgb 15.4 g/dL (13.0-16.5) 07/17/24 07:07/17/24 Hct 48.2 % (40-54) 07/17/24 07:30 07/17/24 Plt Count 230 K/mm3 (150-450) 07/17/24 07:30 07/17/24 CHEMISTRY Potassium 3.8 mmol/L (3.5-5.1) 07/17/24 07:30 07/17/24 Sodium 139 mmol/L (136-145) 07/17/24 07:30 07/17/24 Magnesium 1.9 mg/dL (1.6-2.6) 10/10/22 14:03 10/10/22 Phosphorus 2.6 mg/dL (2.5-4.9) 04/06/16 08:39 04/06/16 BUN 15 mg/dL (7-18) 07/17/24 07:30 07/17/24 Creatinine 1.31 mg/dL (0.70-1.30) H 07/17/24 07:30 07/17/24 Glucose 133 mg/dL (74-106) H 07/17/24 07:30 07/17/24 POC Glucose 178 mg/dL (74-106) H 05/22/24 20:08 05/22/24 TSH 3.170 uIU/mL (0.358-3.740) 07/17/24 07:30 07/17/24 COAG PT 14.1 SECONDS (11.7-14.9) 05/22/24 20:05 05/22/24 Pre-Assessment Diagnosis/Proposed Procedure Planned Operative Procedure(s): TURP Anesthesia History 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 When Was Last Pacemaker Check QUESTION #4 FULL TEXT: You/Your Family Experience fever (hyperthermia) with Anesthesia Last Oral Intake Last Oral intake: Last Oral Intake NPO since Meds taken in AM with sips of water? Meds patient instructed to take am of surgery PONV PONV - machine packer: PONV - machine packer Female No 07/15/24 10:07 HX of Motion Sickness No 07/15/24 10:07 HX of N/V After Surgery No 07/15/24 10:07 Non-Smoker Yes 07/15/24 10:07 Duration of Surgery greater Yes 07/15/24 10:07 than 60 minutes Number of Risk Factors 2 07/15/24 10:07 PONV Score Moderate Risk 07/15/24 10:07 Height & Weight Height & Weight: Anesthesia: Height & Weight Height 5 ft 5 in 05/24/24 14:11 Respiratory Assessment Respiratory Assessment - machine packer: Respiratory Tract Infection Hx - machine packer Hx Respiratory Tract Infection No 07/15/24 10:07 STOP Sleep Apnea STOP Sleep Apnea - machine packer: STOP Sleep Apnea - machine packer Hx Hypertension Yes: CONTROLLED WITH MEDS 07/15/24 10:07 Hx Sleep Apnea Yes 07/15/24 10:07 CPAP Yes 07/15/24 10:07 BIPAP No 07/15/24 10:07 Do you snore loudly (louder than talking or can be heard Do you often feel tired/ fatigued/ sleepy during daytime? Has anyone observed you stop breathing during sleep? STOP Results Positive 07/15/24 10:07 QUESTION #5 FULL TEXT : Do you snore loudly (louder than talking or can be heard through closed doors)? 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 Specify any problems Hx of Preganancy in last 3 N/A 07/15/24 10:07 Months Nurse Filling Out Transfusion DSCHRIBER 07/15/24 10:07 & Questions: Date: 07/15/24 07/15/24 10:07 Time: 10:08 07/15/24 10:07 Patient unable to answer at this time (ie. confused, unrespo /Reproduction History /Reproductive History - machine packer: /Reproductive Hx- machine packer Hx Now No 07/15/24 10:07 Gestational Age (in weeks): EDC: Hx Hx Para Hx Section SAB No 07/15/24 10:07 PFS Medical History Facial cellulitis Loss of hearing Wears glasses Wears dentures Fungus infection Diabetes Thyroid disease Arthritis Bladder disease Prostate disease High cholesterol Back pain TIA (transient ischemic attack) Balance disorder Seizures Dietary restriction Gastric reflux CPAP (continuous positive airway pressure) dependence Shortness of breath on exertion History of pain when walking History of echocardiogram History of stress test Cardiology follow-up encounter History of orthostatic hypotension Hypotension Obesity Dyslipidemia History of atrial fibrillation Coronary artery disease Weakness Abnormality of gait and mobility Low back pain Left foot drop Polyneuropathy 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 Leg weakness, bilateral Chest pain Fatigue PALOMO (dyspnea on exertion) Sinus tachycardia COVID-19 Presence of stent in coronary artery (~04/30/13) Pure hypercholesterolemia Essential hypertension Diabetes Claudication in peripheral vascular disease Left ventricular hypertrophy Paroxysmal atrial fibrillation Atherosclerotic heart disease of [place] coronary artery without angina pectoris Home Medications ?Medication ?Instructions ?Recorded ?Last Taken ?Type nortriptyline 25 mg capsule 25 mg PO QHS nerve pain 04/23/13 Unknown History pantoprazole 40 mg tablet,delayed 40 mg PO DAILY acid reflux 04/23/13 10/15/16 History release finasteride 5 mg tablet 5 mg PO QHS prostate 10/12/16 Unknown History cholecalciferol (vitamin D3) 25 5,000 unit PO DAILY DEFICIENCY 05/05/18 Unknown History mcg (1,000 unit) capsule nitroglycerin 0.4 mg sublingual 0.4 mg sublingual Q5-15M PRN chest 10/26/20 Unknown Rx tablet pain #25 tabs oxybutynin chloride 10 mg 10 mg PO QPM 05/21/22 Unknown History tablet,extended release 24 hr Disability Placard #1 ea 11/29/22 Unknown Rx empagliflozin 12.5 mg-metformin ER 2 tab PO DAILY Diabetes 05/16/23 Unknown History 1,000 mg tablet,extended rel 24 hr (Synjardy XR) levothyroxine 50 mcg tablet 50 mcg PO DAILY 05/16/23 Unknown History Left AFO #1 ea 09/30/23 Unknown Rx glimepiride 2 mg tablet 2 mg PO QDAY 12/02/23 Unknown History tamsulosin 0.4 mg capsule 0.4 mg PO QHS 12/02/23 Unknown History ezetimibe 10 mg tablet 10 mg PO QHS to lower cholesterol 12/30/23 Unknown Rx #90 tabs gabapentin 300 mg capsule 300 mg PO BID 01/30/24 Unknown History clopidogrel 75 mg tablet 75 mg PO DAILY #90 tabs 03/19/24 Unknown Rx metoprolol tartrate 100 mg tablet 100 mg PO BID #180 TABLETS 05/04/24 Unknown Rx doxycycline hyclate 100 mg capsule 100 mg PO BID #20 caps 05/24/24 Unknown Rx dulaglutide 3 mg/0.5 mL 3 mg subcut SA 05/24/24 Unknown History subcutaneous pen injector (Trulicity) rosuvastatin 10 mg tablet 10 mg PO QHS 05/24/24 Unknown History lisinopril 20 mg tablet 20 mg PO QHS 07/15/24 Unknown History Allergy/AdvReac Type Severity Reaction Status Date / Time acetaminophen (From Tylenol) Allergy Severe Anaphylaxis Verified 07/15/24 09:58 Penicillins Allergy Severe Other Verified 07/15/24 09:58 hydromorphone HCl (From AdvReac Severe Other Verified 07/15/24 09:58 Dilaudid) Family History Mother CAD (coronary artery disease) Sister CAD (coronary artery disease) Father Heart disease Surgical History History of esophagogastroduodenoscopy (EGD) Hx of colonoscopy History of umbilical hernia repair History of lumbar fusion Hx of right cataract extraction Hx of left cataract extraction History of lumbosacral spine surgery Presence of coronary angioplasty implant and graft (~04/30/13) History of resection of meningioma Social History Smoking Status: Never smoker alcohol intake: never substance use type: does not use caffeine: Yes Type: carbonated beverages Number of servings: 1 what type of physical activity do you participate in: none Review of Systems (Anesthesia) ROS Narrative System reviewed and no additional complaints, except as documented.
[2024-07-29 13:23] LABS: Bedside Glucose 152 mg/dL (74-106)
--- NOTE | 2024-07-29 14:15 | DCINST_ITS ---
Discharge Instructions Diet Discharge Diet: No restrictions, Light diet - advance as tolerated and Soft diet DC O2, CPAP, BIPAP needs Home O2 Discharge instructions: No Dressing / Incision Discharge Activity: Return to Normal Activity Dressing / Incision Catheter: Silva to leg bag and Silva to large bag Drain: [place] Follow Up Care Please Follow Up With: Avinash Lombardi MD When: call office for a follow up appt. [phone] Test Results: Test results from this visit will be discussed in further detail at your follow- up appointment, if applicable. Discharge Plan Admission Attending Provider: Avinash Lombardi Primary Care Provider: Connor Kohli Instructions Print Language: Turkish Discharge Orders/Prescriptions Prescriptions: No Action cholecalciferol (vitamin D3) 1,000 unit capsule 5,000 unit PO DAILY nitroglycerin 0.4 mg tablet, sublingual 0.4 mg sublingual Q5-15M PRN (Reason: chest pain) Qty: 25 3RF Rx Instructions: do not exceed 3 doses per episode oxybutynin chloride 10 mg tablet extended release 24hr 10 mg PO QPM (DME) Disability Placard See Rx Instructions .Route .MEDSUPPLY Qty: 1 0RF Rx Instructions: Expiration: 11/29/2025 Synjardy XR 12.5-1,000 mg tablet, IR - ER, biphasic 24hr 2 tab PO DAILY levothyroxine 50 mcg tablet 50 mcg PO DAILY (DME) Left AFO See Rx Instructions .Route .MEDSUPPLY Qty: 1 0RF Rx Instructions: As directed gabapentin 300 mg capsule 300 mg PO BID tamsulosin 0.4 mg capsule 0.4 mg PO QHS glimepiride 2 mg tablet 2 mg PO QDAY nortriptyline 25 MG capsule 25 mg PO QHS pantoprazole 40 MG tablet 40 mg PO DAILY finasteride 5 MG tablet 5 mg PO QHS rosuvastatin 10 mg tablet 10 mg PO QHS Trulicity 3 mg/0.5 mL pen injector 3 mg subcut SA lisinopril 20 mg tablet 20 mg PO QHS Rx Instructions: TAKE 1 TABLET BY MOUTH DAILY FOR HIGH BLOOD PRESSURE ezetimibe 10 mg tablet 10 mg PO QHS Qty: 90 3RF clopidogrel 75 mg tablet 75 mg PO DAILY Qty: 90 3RF metoprolol tartrate 100 mg tablet 100 mg PO BID Qty: 180 3RF Referrals / Follow Up: Connor Kohli MD [Primary Care Provider] - Disposition Disposition (needs filled in before D/C Order can be placed): Home, Self Care
--- NOTE | 2024-07-29 14:15 | PCM.HP.STD ---
HPI - General General Date of Service: 07/29/24 Chief Complaint: BPH with obstruction HPI Narrative GRACIE TEMPLE, is a 74 M who presents for a transurethral section of the prostate for BPH with obstruction [facility] Medical History Facial cellulitis Loss of hearing Wears glasses Wears dentures Fungus infection Diabetes Thyroid disease Arthritis Bladder disease Prostate disease High cholesterol Back pain TIA (transient ischemic attack) Balance disorder Seizures Dietary restriction Gastric reflux CPAP (continuous positive airway pressure) dependence Shortness of breath on exertion History of pain when walking History of echocardiogram History of stress test Cardiology follow-up encounter History of orthostatic hypotension Hypotension Obesity Dyslipidemia History of atrial fibrillation Coronary artery disease Weakness Abnormality of gait and mobility Low back pain Left foot drop Polyneuropathy 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 Leg weakness, bilateral Chest pain Fatigue PALOMO (dyspnea on exertion) Sinus tachycardia COVID-19 Presence of stent in coronary artery (~04/30/13) Pure hypercholesterolemia Essential hypertension Diabetes Claudication in peripheral vascular disease Left ventricular hypertrophy Paroxysmal atrial fibrillation Atherosclerotic heart disease of [place] coronary artery without angina pectoris Home Medications ?Medication ?Instructions ?Recorded ?Last Taken ?Type nortriptyline 25 mg capsule 25 mg PO QHS nerve pain 04/23/13 07/28/24 History pantoprazole 40 mg tablet,delayed 40 mg PO DAILY acid reflux 04/23/13 07/29/24 History release finasteride 5 mg tablet 5 mg PO QHS prostate 10/12/16 07/28/24 History cholecalciferol (vitamin D3) 25 5,000 unit PO DAILY DEFICIENCY 05/05/18 07/28/24 History mcg (1,000 unit) capsule nitroglycerin 0.4 mg sublingual 0.4 mg sublingual Q5-15M PRN chest 10/26/20 Unknown Rx tablet pain #25 tabs oxybutynin chloride 10 mg 10 mg PO QPM 05/21/22 07/28/24 History tablet,extended release 24 hr Disability Placard #1 ea 11/29/22 Unknown Rx empagliflozin 12.5 mg-metformin ER 2 tab PO DAILY Diabetes 05/16/23 07/26/24 History 1,000 mg tablet,extended rel 24 hr (Synjardy XR) levothyroxine 50 mcg tablet 50 mcg PO DAILY 05/16/23 07/29/24 History Left AFO #1 ea 09/30/23 Unknown Rx glimepiride 2 mg tablet 2 mg PO QDAY 12/02/23 07/28/24 History tamsulosin 0.4 mg capsule 0.4 mg PO QHS 12/02/23 07/28/24 History ezetimibe 10 mg tablet 10 mg PO QHS to lower cholesterol 12/30/23 07/28/24 Rx #90 tabs gabapentin 300 mg capsule 300 mg PO BID 01/30/24 07/29/24 History clopidogrel 75 mg tablet 75 mg PO DAILY #90 tabs 03/19/24 07/19/24 Rx metoprolol tartrate 100 mg tablet 100 mg PO BID #180 TABLETS 05/04/24 07/29/24 Rx dulaglutide 3 mg/0.5 mL 3 mg subcut SA 05/24/24 07/18/24 History subcutaneous pen injector (Trulicity) rosuvastatin 10 mg tablet 10 mg PO QHS 05/24/24 07/28/24 History lisinopril 20 mg tablet 20 mg PO QHS 07/15/24 07/28/24 History Allergy/AdvReac Type Severity Reaction Status Date / Time acetaminophen (From Tylenol) Allergy Severe Anaphylaxis Verified 07/29/24 12:51 Penicillins Allergy Severe Other Verified 07/29/24 12:51 hydromorphone HCl (From AdvReac Severe Other Verified 07/29/24 12:51 Dilaudid) Family History Mother CAD (coronary artery disease) Sister CAD (coronary artery disease) Father Heart disease Surgical History History of esophagogastroduodenoscopy (EGD) Hx of colonoscopy History of umbilical hernia repair History of lumbar fusion Hx of right cataract extraction Hx of left cataract extraction History of lumbosacral spine surgery Presence of coronary angioplasty implant and graft (~04/30/13) History of resection of meningioma Social History Smoking Status: Never smoker alcohol intake: never substance use type: does not use caffeine: Yes Type: carbonated beverages Number of servings: 1 what type of physical activity do you participate in: none Vital Signs Vital Signs Vital Signs: 07/29/24 13:04 07/29/24 13:04 Temperature 98.7 F Temperature Source Temporal Pulse Rate 64 Respiratory Rate 18 Respiratory Pattern Normal Blood Pressure 103/67 Blood Pressure Mean 79 Blood Pressure Source Monitor Blood Pressure Position Semi-Fowlers Blood Pressure Location Left Arm Pulse Ox 95 Oxygen Delivery Method Room Air Weight Weight: 94 kg Body Mass Index (BMI) 34.4 Results Lab / Micro Data 07/17/24 07:30 07/17/24 07:30 Labs: Laboratory Results - last 24 hr 07/29/24 12:48: POC Glucose 152 H
[2024-07-29] MEDS: Cefazolin 2 GM in Syringe IV (14:38)
--- NOTE | 2024-07-29 14:40 | PROS_PTH ---
PATIENT: GRACIE TEMPLE LOC: [facility] U#:[id number] AGE/SX: 74/M ROOM: MO312 RE07/29/[address]: Dr. Avinash Lombardi MD : 1950 BED: 1 DIS: 07/30/2024 SPEC #: [id number] RECD: 07/29/24 17:48 STATUS: JONO PULLIAM #: [id number] ALEXA: 07/29/24 14:[address]: Avinash Lombardi DEPT: SURGICAL PATHOLOGY RECD BY: Scout Melvin ENTERED: 07/30/24 07:14 SP TYPE: TURP OTHR DR: Dr. Connor Kohli MD Tissues: Prostate, NOS Procedures: Surgery Specimen Level IV HEADER OPERATION: Cysto, transurethral resection, prostate PRE-OP DIAGNOSIS: Benign prostatic hyperplasia with obstruction TISSUE SUBMITTED: Prostate chips MICROSCOPIC DIAGNOSIS Prostate chips, transurethral resection: Benign prostatic hyperplasia, glandular and stromal type. Chronic inflammation and basal cell hyperplasia. . 07/31/2024 MICROSCOPIC DESCRIPTION Slides are reviewed. GROSS DESCRIPTION Received is one container labeled with the patient's name and designated prostate tissue. The specimen consists of multiple irregular fragments of pink-wells, rubbery, soft tissue that in aggregate weigh 4.9 gm and measure in aggregate 5 x 4 x 1.5 cm. The entire specimen is submitted in six cassettes. SAMANTHAKrupa 07/30/2024 TC:5 CPT: 12924
--- NOTE | 2024-07-29 15:12 | OP.PCM_ITS ---
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 We discussed how a prostate resection is done and we discussed the risk of the surgery including, bleeding, infection, retrograde ejaculation, changes with ejaculation or intercourse,. We discussed the possibility that the resection of the prostate may not alleviate his urinary symptoms. We discussed the small risk of developing scar tissue along the urethral channel and strictures. We also discussed the chance of the prostate could grow back and he may need further surgery or treatment in the future for prostate problems. Patient was taken back to the operating room, timeout procedure was performed, he was identified and marked and placed on the operating room table. He underwent general anesthesia. He was placed in dorsolithotomy position. Penis and testicles were prepped and draped in usual sterile fashion. Went into the bladder using the visual obturator with a resectoscope. Once inside the bladder identified the right and left ureteral orifice. I then identified the prostate and the anatomy of the prostate. I marked out the area of the sphincter and the verumontanum was identified. I then proceeded with the prostate resection first resected the median lobe. And then resected the right lobe of the prostate. Then to resect the left lobe of the prostate. I then resected the apical tissue of the prostate. This was a complete resection of all obstructive tissue to improve voiding and relieve obstruction. I then made sure that there was no injury to the sphincter or the verumontanum was still intact. At the end of the resection all the chips were Ellik out of the bladder. I then identified the left and right ureteral orifice and these were confirmed to be in good position and effluxing and not injured. The resectoscope was removed, a 22 Panamanian catheter was placed into the bladder on continuous irrigation. And the urine was fairly light pink color and draining normally. He was taken back to the PACU in good condition. CPT 78062 Surgical Findings: Small short obstructive prostate Complications Complications: No Admit VTE Documentation VTE Present on Admission: No VTE Mechan Device Prophylaxis: SCD's VTE Pharm Prophylaxis ordered?: No
--- NOTE | 2024-07-29 15:28 | PCM.POST.ANE ---
Anesthesia: Postop Eval I Current Vital Signs Temperature: 98.3 F Pulse Rate: 78 Blood Pressure: 106/78 Respiratory Rate: 16 Pulse Ox: 93 Oxygen Delivery Method: Nasal Cannula Oxygen Flow Rate (L/min): 4 Assessment Airway patent: Yes Spontaneous unlabored respirations: Yes Mental status: Awake and Calm nausea: No Vomiting: No Anesthesia Complication: No Fluid Hydration Crystalloid volume administer (ml): 700 Total IV fluid infused: 700 Progress Note Anesthesia document: Postop Eval 1 completed: Yes
--- NOTE | 2024-07-29 15:58 | POSTOPAN2_ITS ---
Anesthesia Postop Eval I Sum Postop Eval Completion status Anesthesia document: Postop Eval 1 completed: Yes Anesthesia Postop Eval I Summary Anesthesia Postop Eval I Summary: Anesthesia Postop Eval I: Assessment Summary Airway patent Yes 07/29/24 15:28 [employer].SKOBY Spontaneous unlabored Yes 07/29/24 15:28 [employer]ER.MILE respirations Mental status Awake,Calm 07/29/24 15:28 [employer]ER.ANNOBMark nausea No 07/29/24 15:28 [employer]ER.ANNOBMark Vomiting No 07/29/24 15:28 [employer]ER.ANNOBMark Anesthesia Postop Eval I: Fluid Summary Crystalloid volume administer 700 07/29/24 15:28 [employer]ICER.SKOBY (ml) Colloids volume administered ( ml) Blood Product volume administered (ml) Total IV fluid infused 700 07/29/24 15:28 [employer]ICER.MILE Anesthesia Postop Eval I: Summary Notes Anesthesia Complication No 07/29/24 15:28 [employer]ER.MILE Anesthesia Complication Comment: Post-operative progress note Anesthesia: Postop Eval II Evaluation Mental status: Awake Pain Level: 0 nausea: No Vomiting: No
--- NOTE | 2024-07-29 15:58 | PCM.POSTANE2 ---
Anesthesia Postop Eval I Sum Postop Eval Completion status Anesthesia document: Postop Eval 1 completed: Yes Anesthesia Postop Eval I Summary Anesthesia Postop Eval I Summary: Anesthesia Postop Eval I: Assessment Summary Airway patent Yes 07/29/24 15:28 PATHOLOGY LABORATORY AIDE.SKOBY Spontaneous unlabored Yes 07/29/24 15:28 PATHOLOGY LABORATORY AIDE.MILE respirations Mental status Awake,Calm 07/29/24 15:28 PATHOLOGY LABORATORY AIDE.ANNOBMark nausea No 07/29/24 15:28 PATHOLOGY LABORATORY AIDE.ANNOBMark Vomiting No 07/29/24 15:28 PATHOLOGY LABORATORY AIDE.ANNOBMark Anesthesia Postop Eval I: Fluid Summary Crystalloid volume administer 700 07/29/24 15:28 PATHOLOGY LABORATORY AIDE.SKOBY (ml) Colloids volume administered ( ml) Blood Product volume administered (ml) Total IV fluid infused 700 07/29/24 15:28 PATHOLOGY LABORATORY AIDE.MILE Anesthesia Postop Eval I: Summary Notes Anesthesia Complication No 07/29/24 15:28 PATHOLOGY LABORATORY AIDE.MILE Anesthesia Complication Comment: Post-operative progress note Anesthesia: Postop Eval II Evaluation Mental status: Awake Pain Level: 0 nausea: No Vomiting: No
[2024-07-29 17:08] LABS: Bedside Glucose 167 mg/dL (74-106)
[2024-07-29] MEDS: Ketorolac 15 MG/ML Vial IV (19:13)
[2024-07-29] MEDS: 0.9% Normal Saline (1000mL) 1,000 ML 125 ML IV (19:13)
[2024-07-29] MEDS: Ezetimibe 10 MG Tablet PO (21:50)
[2024-07-29] MEDS: Atorvastatin Calcium 20 MG Tablet PO (21:50)
[2024-07-29] MEDS: Docusate Sodium 100 MG Capsule 200 MG PO (21:50)
[2024-07-29] MEDS: Ciprofloxacin 500 MG Tablet PO (21:50)
[2024-07-29] MEDS: Gabapentin 300 MG Capsule PO (21:50)
[2024-07-29] MEDS: Tamsulosin HCl 0.4 MG Capsule PO (21:50)
[2024-07-29] MEDS: Tolterodine Tartrate 2 MG CAP.SA PO (21:50)
[2024-07-29] MEDS: Finasteride 5 MG Tablet PO (21:50)
[2024-07-29] MEDS: Lisinopril 20 MG Tablet PO (21:51)
[2024-07-29] MEDS: Metoprolol Tartrate 100 MG Tablet PO (21:51)
[2024-07-29] MEDS: Nortriptyline 25 MG Capsule PO (21:51)
[2024-07-30 01:07] VITALS: BP 102/83; PULSE 86; RESP 16; TEMP 36.6; O2SAT 94; BMI 34.5
[2024-07-30] MEDS: 0.9% Normal Saline (1000mL) 1,000 ML 125 ML IV (02:46)
[2024-07-30 05:07] VITALS: BP 113/92; PULSE 66; RESP 16; TEMP 36.6; O2SAT 95; BMI 34.5
[2024-07-30] MEDS: Levothyroxine 50 MCG Tablet PO (05:26)
--- NOTE | 2024-07-30 07:13 | PCM.PN.GU ---
Subjective Subjective s/p turp stop cbi home with lei today plug irrigation port Objective Data Objective Data Vital Signs: Vital Signs Temp Pulse Resp BP Pulse Ox O2 Del Method O2 Flow Rate 97.8 F 66 16 113/92 H 95 CPAP 2 07/30/24 05:07 07/30/24 05:07 07/30/24 05:07 07/30/24 05:07 07/30/24 05:07 07/30/24 05:07 07/29/24 21:07 Oxygen Flow Rate (L/min) 2 Oxygen Delivery Method CPAP Weight: 94 kg Body Mass Index (BMI) 34.4 Intake & Output: Intake and Output for Last 24 Hours 07/28/24 07/29/24 07/30/24 23:59 23:59 23:59 Intake Total 720 / 720 943.75 / 943.75 Output Total 3200 / 3200 1999 Balance -2480 / -2480 -1056.25 / -1056.25 Lab / Micro Data 07/17/24 07:30 07/17/24 07:30 Labs: Laboratory Results - last 24 hr 07/29/24 12:48: POC Glucose 152 H 07/29/24 16:50: POC Glucose 167 H
[2024-07-30] MEDS: metFORMIN (XR) 500 MG Tablet 2000 MG PO (07:58)
[2024-07-30] MEDS: Empagliflozin 25 MG Tablet PO (07:59)
[2024-07-30] MEDS: Glimepiride 2 MG Tablet PO (07:59)
[2024-07-30 08:48] VITALS: BP 101/59; PULSE 78; RESP 16; TEMP 36.2; O2SAT 98
[2024-07-30 09:07] VITALS: BMI 34.5
--- NOTE | 2024-07-30 10:02 | CASEMGMT ---
TOOTIE ALONZO NOTE: Discharge order is in. RN CM to room. Pt sitting up in chair. Introduced self and role. His will be taking him home. He is aware Rx for atb has been sent to [facility] and states they can pick that up today. He is aware he will be discharging home w/ F/C and states is comfortable learning how to care for this and states would like education provided to his as well. Sarina SOMMERS, aware. Pt denies having any discharge needs/concerns. Adrián MCELROYN TOOTIE CM
[2024-07-30] MEDS: Ciprofloxacin 500 MG Tablet PO (10:07)
[2024-07-30 10:08] VITALS: BP 101/59; PULSE 78
[2024-07-30] MEDS: Metoprolol Tartrate 100 MG Tablet PO (10:08)
[2024-07-30] MEDS: Pantoprazole Sodium 40 MG Tablet PO (10:09)
[2024-07-30] MEDS: Gabapentin 300 MG Capsule PO (10:11)
== END 2024-07-30 10:43 | disposition home or self-care (01) ==
LOC: SDC 16:10 → MS3 16:10
PROVIDERS: Anesthesiology Pain Medicine; Admitting Provider Urology; PCP Family Medicine; Referring Provider Urology; Visit Provider Urology
PROC: (CPT 52601; principal; 2024-07-29 14:30)
DX: N40.1 Benign prostatic hyperplasia with lower urinary tract symptoms (principal); E11.42 Type 2 diabetes mellitus with diabetic polyneuropathy; K21.9 Gastro-esophageal reflux disease without esophagitis; E78.00 Pure hypercholesterolemia, unspecified; I25.10 Atherosclerotic heart disease of native coronary artery without angina pectoris; I10 Essential (primary) hypertension; N13.8 Other obstructive and reflux uropathy; R32 Unspecified urinary incontinence; R39.14 Feeling of incomplete bladder emptying; Z79.899 Other long term (current) drug therapy; Z79.02 Long term (current) use of antithrombotics/antiplatelets; Z79.85 Long-term (current) use of injectable non-insulin antidiabetic drugs; Z79.84 Long term (current) use of oral hypoglycemic drugs
CPT/HCPCS: 52601; 00914; 36415; 80048; 82962; 83036; 84443; 85027; 88305; 93005; 94668; 96361; 96374; 99221; G0378; J2405

== ENCOUNTER → 2024-08-05 | Outpatient (CLI) | payer MEDICARE, OTHER, SELFPAY ==
--- NOTE | 2024-08-05 07:47 | CT_ITS ---
PROCEDURE: CT CHEST WITHOUT CONTRAST REASON FOR EXAM: Chronic cough. TECHNIQUE: Contiguous axial scans of 2.5 mm slice thicknesses. Sagittal and coronal reconstruction images were obtained. One or more dose reduction techniques were used (e.g., automated exposure control, adjustment of mA and/or kv according to patient size, use of iterative reconstruction technique). COMPARISON: CT chest dated 05/18/2022. FINDINGS: Hardware: None. Lymph nodes: Small nonspecific lymph nodes scattered throughout the mediastinum. Heart and Vasculature: Normal heart size. No pericardial effusion. Thoracic aorta and pulmonary arteries have normal contours; noncontrast technique limits evaluation. Coronary Artery Calcifications: Severe. Lungs and Airways: Mild areas of ground-glass opacification in the left upper and lower lobes. Moderate ground-glass opacification in the right lower lobe. Bilateral lower lobe bronchiectatic changes, more prominent on the right. Pleura: No pleural effusion. No pneumothorax. Upper Abdomen: Visualized portions of the upper abdominal viscera are unremarkable. Bones: Mild multilevel spondylosis. CT/Chest without Contrast IMPRESSION: 1. Ground-glass opacification in the bilateral lungs as detailed above, more p revalent in the right lower lobe. This may be inflammatory or infectious. 2. Bilateral lower lobe bronchiectasis, more prevalent in the right lower lobe . 3. Severe coronary artery calcifications. 4. Other nonacute findings detailed above. Reading Location: [facility]
== END | disposition home or self-care (01) ==
LOC: CT 07:46
PROVIDERS: PCP Family Medicine; Referring Provider Internal Medicine Pulmonary Disease; Visit Provider Internal Medicine Pulmonary Disease
DX: R05.3 Chronic cough (principal)
CPT/HCPCS: 71250

== ENCOUNTER → 2024-08-13 | Outpatient (CLI) | payer MEDICARE, OTHER, SELFPAY ==
[2024-08-13 21:00] LABS: CRP < 3.00 mg/L (0.0-3.0)
[2024-08-14 15:08] LABS: Anti-dsDNA Ab 1 IU/mL (0-9); SJOGREN'S Anti-SS-A test < 0.2 AI (0.0-0.9); SJOGREN'S Anti-SS-B test < 0.2 AI (0.0-0.9)
[2024-08-14 16:09] LABS: Angiotensin Convert Enzyme 21 U/L (14-82); Anti-Smooth Muscle ABS 19 Units (0-19); CCP IgG Antibodies 18 units (0-19); Cytoplasmic Ab (C-ANCA) <1:20 titer (Neg:<1:20); Perinuclear Ab (P-ANCA) <1:20 titer (Neg:<1:20)
== END | disposition home or self-care (01) ==
PROVIDERS: PCP Family Medicine; Referring Provider Internal Medicine Pulmonary Disease; Visit Provider Internal Medicine Pulmonary Disease
DX: R05.9 Cough, unspecified (principal)
CPT/HCPCS: 36415; 82164; 83516; 86037; 86140; 86200; 86225; 86235

== ENCOUNTER 2024-08-19 12:42 | Day surgery (SDC) | payer MEDICARE, OTHER, SELFPAY ==
--- NOTE | 2024-08-14 16:52 | PAT.ANESEVAL ---
Pre-Assessment Diagnosis/Proposed Procedure Planned Operative Procedure(s): BRONCHOSCOPY Anesthesia History Anesthesia History - executive steward: Anesthesia History - executive steward Hx Hospitalization Yes: 07/2024 TURP 08/14/24 10:42 Any Problems With Anesthesia No 08/14/24 10:42 Cholinesterase deficiency No 08/14/24 10:42 You/Your Family Experience No 08/14/24 10:42 fever (hyperthermia) with Relationship Recent Exposure to Contagious No 07/29/24 13:04 Disease Does patient have nerve No 08/14/24 10:42 stimulator Patient instructed to have device shut off --Does patient have Pacemaker or ICD? When Was Last Pacemaker Check QUESTION #4 FULL TEXT: You/Your Family Experience fever (hyperthermia) with Anesthesia Last Oral Intake Last Oral intake: Last Oral Intake NPO since Meds taken in AM with sips of water? Meds patient instructed to take am of surgery PONV PONV - executive steward: PONV - executive steward Female No 08/14/24 10:42 HX of Motion Sickness No 08/14/24 10:42 HX of N/V After Surgery No 08/14/24 10:42 Non-Smoker Yes 08/14/24 10:42 Duration of Surgery greater Yes 08/14/24 10:42 than 60 minutes Number of Risk Factors 2 08/14/24 10:42 PONV Score Moderate Risk 08/14/24 10:42 Height & Weight Height & Weight: Anesthesia: Height & Weight Height 5 ft 5 in 07/29/24 17:07 Respiratory Assessment Respiratory Assessment - executive steward: Respiratory Tract Infection Hx - executive steward Hx Respiratory Tract Infection No 08/14/24 10:42 STOP Sleep Apnea STOP Sleep Apnea - executive steward: STOP Sleep Apnea - executive steward Hx Hypertension Yes: per pt, controlled on 08/14/24 10:42 meds Hx Sleep Apnea Yes 08/14/24 10:42 CPAP Yes 08/14/24 10:42 BIPAP No 08/14/24 10:42 Do you snore loudly (louder than talking or can be heard Do you often feel tired/ fatigued/ sleepy during daytime? Has anyone observed you stop breathing during sleep? STOP Results Positive 08/14/24 10:42 QUESTION #5 FULL TEXT : Do you snore loudly (louder than talking or can be heard through closed doors)? Tobacco Use History Tobacco Use History - executive steward: Tobacco Use History - executive steward Tobacco Use Smoking Status Never smoker 08/14/24 10:42 Hx Tobacco Use No 08/14/24 10:42 Years Smoking Packs Smoked per Day Smoking Cessation Date was within the last 15 years Hx Smoking Cessation Date Hx Smoking Cessation Counseling Hematologic Medial History Hematologic Hx - executive steward: Hematologic Medical Hx - buddhist monk Hx of Blood Transfusion No 08/14/24 10:42 Hx of Transfusion in last 3 No 08/14/24 10:42 Months Date of Last Transfusion (if within last 3 months) Ever experience any problems No 08/14/24 10:42 with transfusion(s)? Specify any problems Hx of Preganancy in last 3 N/A 08/14/24 10:42 Months Nurse Filling Out Transfusion MGRIFFITH 08/14/24 10:42 & Questions: Date: 08/14/24 08/14/24 10:42 Time: 10:44 08/14/24 10:42 Patient unable to answer at this time (ie. confused, unrespo /Reproduction History /Reproductive History - executive steward: /Reproductive Hx- executive steward Hx Now Gestational Age (in weeks): EDC: Hx Hx Para Hx Section SAB No 08/14/24 10:42 [facility] Medical History (Updated 08/14/24 @ 10:49 by Danielle Avila) Hypertension Non-smoker Facial cellulitis Loss of hearing Wears glasses Wears dentures Fungus infection Diabetes Thyroid disease Arthritis Bladder disease Prostate disease High cholesterol Back pain TIA (transient ischemic attack) Balance disorder Seizures Dietary restriction Gastric reflux CPAP (continuous positive airway pressure) dependence Shortness of breath on exertion History of pain when walking History of echocardiogram History of stress test Cardiology follow-up encounter History of orthostatic hypotension Hypotension Obesity Dyslipidemia History of atrial fibrillation Coronary artery disease Weakness Abnormality of gait and mobility Low back pain Left foot drop Polyneuropathy 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 Leg weakness, bilateral Chest pain Fatigue PALOMO (dyspnea on exertion) Sinus tachycardia COVID-19 Presence of stent in coronary artery (~04/30/13) Pure hypercholesterolemia Essential hypertension Diabetes Claudication in peripheral vascular disease Left ventricular hypertrophy Paroxysmal atrial fibrillation Atherosclerotic heart disease of [place] coronary artery without angina pectoris Home Medications ?Medication ?Instructions ?Recorded ?Last Taken ?Type nortriptyline 25 mg capsule 25 mg PO QHS nerve pain 04/23/13 07/28/24 History pantoprazole 40 mg tablet,delayed 40 mg PO DAILY acid reflux 04/23/13 07/29/24 History release finasteride 5 mg tablet 5 mg PO QHS prostate 10/12/16 07/28/24 History cholecalciferol (vitamin D3) 25 5,000 unit PO DAILY DEFICIENCY 05/05/18 07/28/24 22:00 History mcg (1,000 unit) capsule nitroglycerin 0.4 mg sublingual 0.4 mg sublingual Q5-15M PRN chest 10/26/20 Unknown Rx tablet pain #25 tabs oxybutynin chloride 10 mg 10 mg PO QPM 05/21/22 07/28/24 History tablet,extended release 24 hr Disability Placard #1 ea 11/29/22 Unknown Rx empagliflozin 12.5 mg-metformin ER 2 tab PO DAILY Diabetes 05/16/23 07/26/24 History 1,000 mg tablet,extended rel 24 hr (Synjardy XR) levothyroxine 50 mcg tablet 50 mcg PO DAILY 05/16/23 07/29/24 History Left AFO #1 ea 09/30/23 Unknown Rx glimepiride 2 mg tablet 2 mg PO QDAY 12/02/23 07/28/24 History tamsulosin 0.4 mg capsule 0.4 mg PO QHS 12/02/23 07/28/24 History ezetimibe 10 mg tablet 10 mg PO QHS to lower cholesterol 12/30/23 07/28/24 22:00 Rx #90 tabs gabapentin 300 mg capsule 300 mg PO BID 01/30/24 07/29/24 History clopidogrel 75 mg tablet 75 mg PO DAILY #90 tabs 03/19/24 07/19/24 Rx Held on 07/29/24. Instructions: Resume on 08/12/24. metoprolol tartrate 100 mg tablet 100 mg PO BID #180 TABLETS 05/04/24 07/29/24 Rx dulaglutide 3 mg/0.5 mL 3 mg subcut SA 05/24/24 08/08/24 History subcutaneous pen injector (Trulicity) rosuvastatin 10 mg tablet 10 mg PO QHS 05/24/24 07/28/24 History lisinopril 20 mg tablet 20 mg PO QHS 07/15/24 07/28/24 History Allergy/AdvReac Type Severity Reaction Status Date / Time acetaminophen (From Tylenol) Allergy Severe Anaphylaxis Verified 08/14/24 10:33 Penicillins Allergy Severe Other Verified 08/14/24 10:33 hydromorphone HCl (From AdvReac Severe Other Verified 08/14/24 10:33 Dilaudid) Family History Mother CAD (coronary artery disease) Sister CAD (coronary artery disease) Father Heart disease Surgical History (Updated 08/14/24 @ 10:42 by Danielle Avila) History of transurethral resection of prostate History of esophagogastroduodenoscopy (EGD) Hx of colonoscopy History of umbilical hernia repair History of lumbar fusion Hx of right cataract extraction Hx of left cataract extraction History of lumbosacral spine surgery Presence of coronary angioplasty implant and graft (~04/30/13) History of resection of meningioma Social History Smoking Status: Never smoker alcohol intake: never substance use type: does not use caffeine: Yes Type: carbonated beverages Number of servings: 1 what type of physical activity do you participate in: none Audit: Pertinent Findings Pertinent Findings EKG Perinent findings: July 17, 2024. Normal sinus rhythm. Stress test pertinent findings: June 02, 2024. Ejection fraction is 67%. No evidence of significant ischemia or infarction. Echo (EF%) pertinent findings: May 29, 2024. Ejection fraction 60%. No aortic stenosis. Consult pertinent findings: May [address] Collier. 1. Coronary artery disease-chronic. Continue aspirin and Plavix. As well as beta-blockers. Checks Lexiscan stress Myoview to rule out silent ischemia. Check an echocardiogram. (See above). 2. Stent in coronary [id number] stent of the proximal third marginal artery. Continue aspirin and Plavix. Recommendation Anesthesia Recommendation Anesthesia recommendation: OPTIMIZED for anesthesia
[2024-08-19] VITALS (9 sets, daily range): BP systolic 82–157; BP diastolic 63–138; PULSE 62–76; RESP 16–25; TEMP 36.2–36.3; O2SAT 93–98; BMI 34.9
--- NOTE | 2024-08-19 | FLU_PTH ---
PATIENT: GRACIE TEMPLE LOC: EN U#:[id number] AGE/SX: 74/M ROOM: RE08/19/[address]: Dr. Octavio Rasmussen MD : 1950 BED: DIS: 08/19/2024 SPEC #: [id number] RECD: 08/19/24 15:22 STATUS: JONO STONENikole #: [id number] ALEXA: 08/19/24 00:[address]: Octavio Rasmussen V DEPT: CYTOLOGY RECD BY: Jacque Vega ENTERED: 08/20/24 08:44 SP TYPE: Fluid OTHR DR: Dr. Connor Kohli MD Tissues: Bronchus of right lower lobe Procedures: Special Stain Group II Surgery Specimen Level IV Cytospin Fluid HEADER OPERATION: Bronchoscopy (MAC), biopsy PRE-OP DIAGNOSIS: Pulmonary fibrosis TISSUE SUBMITTED: Right lower lung fluid for cytology DIAGNOSIS CYTOLOGY Right lower lobe lung fluid, bronchoalveolar lavage:Negative for malignant cellsPulmonary macrophages, squamous cells, respiratory epithelium, and light mixed inflammation ANDREAS Perez M.D. 08/26/24 CYTOLOGY STUDY Slides are reviewed. CYTOLOGY GROSS Received is 55 ml of red-cloudy bloody fluid labeled with the patient's name and and designated per the requisition as Right lower lung fluid. Submitted for cytology preparation including cell block. 08/20/2024 CPT: 66847 ,65984, TC:4 ADDENDUM ADDENDUM ADDENDUM 08/26/2024 15:21 ADDENDUM 08/26/2024 15:21 ADDENDUM 08/26/2024 15:21 ADDENDUM 08/26/2024 15:21 ADDENDUM 09/02/2024 08:47 ADDENDUM 08/26/2024 15:21 This addendum is being issued to report the results of a stain for acid-fast bacilli with an appropriate positive control. The specimen is negative for acid-fast bacilli This addendum is added to incorporate an outside pathology consultation report. The case was examined at [facility] by Dr. Ureña (#[id number]) and the following diagnosis was rendered. A. 2nd opinion consultation, cytology - Right lower lobe lung fluid, bronchoalveolar lavage: No malignant cells are identified. Please see complete above mentioned consultation report in EMR
--- NOTE | 2024-08-19 13:04 | PCM.PRE.AN2 ---
ASA Classification* ASA Classification ASA Classification: 3 Assessment & Plan Anesthesia* Anesthesia Assessment Anesthesia Assessment: Discussed sedation and/or anesthesia options, risks, benefits, and alternatives with patient/parents/legal guardian/POA. Questions invited. The patient/parents/legal guardian/POA seems to understand and agrees to proceed with anesthesia plan. Reviewed the physical assessment, medical history, allergy history and patient home medications list prior to surgery/procedure/anesthetic and documented any changes. Performed airway and anesthesia risk assessments. Anesthesia Type Anesthesia Type: MAC Anesthesia Focused Assessment* Airway Assessment Mouth opens: >3 cm Mallampati Score: II Focused Labs Anesthesia Preop lab: CBC WBC 10.1 K/mm3 (4.4-11.0) 07/17/24 07:07/17/24 RBC 5.03 M/mm3 (4.6-6.2) 07/17/24 07:30 07/17/24 Hgb 15.4 g/dL (13.0-16.5) 07/17/24 07:07/17/24 Hct 48.2 % (40-54) 07/17/24 07:30 07/17/24 Plt Count 230 K/mm3 (150-450) 07/17/24 07:30 07/17/24 CHEMISTRY Potassium 3.8 mmol/L (3.5-5.1) 07/17/24 07:30 07/17/24 Sodium 139 mmol/L (136-145) 07/17/24 07:30 07/17/24 Magnesium 1.9 mg/dL (1.6-2.6) 10/10/22 14:03 10/10/22 Phosphorus 2.6 mg/dL (2.5-4.9) 04/06/16 08:39 04/06/16 BUN 15 mg/dL (7-18) 07/17/24 07:30 07/17/24 Creatinine 1.31 mg/dL (0.70-1.30) H 07/17/24 07:30 07/17/24 Glucose 133 mg/dL (74-106) H 07/17/24 07:30 07/17/24 POC Glucose 167 mg/dL (74-106) H 07/29/24 16:50 07/29/24 TSH 3.170 uIU/mL (0.358-3.740) 07/17/24 07:30 07/17/24 COAG PT 14.1 SECONDS (11.7-14.9) 05/22/24 20:05 05/22/24 Pre-Assessment Diagnosis/Proposed Procedure Planned Operative Procedure(s): BRONCHOSCOPY Anesthesia History 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 When Was Last Pacemaker Check QUESTION #4 FULL TEXT: You/Your Family Experience fever (hyperthermia) with Anesthesia Last Oral Intake Last Oral intake: Last Oral Intake NPO since Meds taken in AM with sips of water? 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 Has anyone observed you stop breathing during sleep? STOP Results Positive 08/14/24 10:42 QUESTION #5 FULL TEXT : Do you snore loudly (louder than talking or can be heard through closed doors)? 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 Specify any problems Hx of Preganancy in last 3 N/A 08/14/24 10:42 Months Nurse Filling Out Transfusion MGRIFFITH 08/14/24 10:42 & Questions: Date: 08/14/24 08/14/24 10:42 Time: 10:44 08/14/24 10:42 Patient unable to answer at this time (ie. 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 Hx Now Gestational Age (in weeks): EDC: Hx Hx Para Hx Section SAB No 08/14/24 10:42 PFS Medical History Hypertension Non-smoker Facial cellulitis Loss of hearing Wears glasses Wears dentures Fungus infection Diabetes Thyroid disease Arthritis Bladder disease Prostate disease High cholesterol Back pain TIA (transient ischemic attack) Balance disorder Seizures Dietary restriction Gastric reflux CPAP (continuous positive airway pressure) dependence Shortness of breath on exertion History of pain when walking History of echocardiogram History of stress test Cardiology follow-up encounter History of orthostatic hypotension Hypotension Obesity Dyslipidemia History of atrial fibrillation Coronary artery disease Weakness Abnormality of gait and mobility Low back pain Left foot drop Polyneuropathy 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 Leg weakness, bilateral Chest pain Fatigue PALOMO (dyspnea on exertion) Sinus tachycardia COVID-19 Presence of stent in coronary artery (~04/30/13) Pure hypercholesterolemia Essential hypertension Diabetes Claudication in peripheral vascular disease Left ventricular hypertrophy Paroxysmal atrial fibrillation Atherosclerotic heart disease of [place] coronary artery without angina pectoris Home Medications ?Medication ?Instructions ?Recorded ?Last Taken ?Type nortriptyline 25 mg capsule 25 mg PO QHS nerve pain 04/23/13 07/28/24 History pantoprazole 40 mg tablet,delayed 40 mg PO DAILY acid reflux 04/23/13 07/29/24 History release finasteride 5 mg tablet 5 mg PO QHS prostate 10/12/16 07/28/24 History cholecalciferol (vitamin D3) 25 5,000 unit PO DAILY DEFICIENCY 05/05/18 07/28/24 22:00 History mcg (1,000 unit) capsule nitroglycerin 0.4 mg sublingual 0.4 mg sublingual Q5-15M PRN chest 10/26/20 Unknown Rx tablet pain #25 tabs oxybutynin chloride 10 mg 10 mg PO QPM 05/21/22 07/28/24 History tablet,extended release 24 hr Disability Placard #1 ea 11/29/22 Unknown Rx empagliflozin 12.5 mg-metformin ER 2 tab PO DAILY Diabetes 05/16/23 07/26/24 History 1,000 mg tablet,extended rel 24 hr (Synjardy XR) levothyroxine 50 mcg tablet 50 mcg PO DAILY 05/16/23 07/29/24 History Left AFO #1 ea 09/30/23 Unknown Rx glimepiride 2 mg tablet 2 mg PO QDAY 12/02/23 07/28/24 History tamsulosin 0.4 mg capsule 0.4 mg PO QHS 12/02/23 07/28/24 History ezetimibe 10 mg tablet 10 mg PO QHS to lower cholesterol 12/30/23 07/28/24 22:00 Rx #90 tabs gabapentin 300 mg capsule 300 mg PO BID 01/30/24 07/29/24 History clopidogrel 75 mg tablet 75 mg PO DAILY #90 tabs 03/19/24 07/19/24 Rx Held on 07/29/24. Instructions: Resume on 08/12/24. metoprolol tartrate 100 mg tablet 100 mg PO BID #180 TABLETS 05/04/24 07/29/24 Rx dulaglutide 3 mg/0.5 mL 3 mg subcut SA 05/24/24 08/08/24 History subcutaneous pen injector (Trulicity) rosuvastatin 10 mg tablet 10 mg PO QHS 05/24/24 07/28/24 History lisinopril 20 mg tablet 20 mg PO QHS 07/15/24 07/28/24 History Allergy/AdvReac Type Severity Reaction Status Date / Time acetaminophen (From Tylenol) Allergy Severe Anaphylaxis Verified 08/19/24 13:03 Penicillins Allergy Severe Other Verified 08/19/24 13:03 hydromorphone HCl (From AdvReac Severe Other Verified 08/19/24 13:03 Dilaudid) Family History Mother CAD (coronary artery disease) Sister CAD (coronary artery disease) Father Heart disease Surgical History History of transurethral resection of prostate History of esophagogastroduodenoscopy (EGD) Hx of colonoscopy History of umbilical hernia repair History of lumbar fusion Hx of right cataract extraction Hx of left cataract extraction History of lumbosacral spine surgery Presence of coronary angioplasty implant and graft (~04/30/13) History of resection of meningioma Social History Smoking Status: Never smoker alcohol intake: never substance use type: does not use caffeine: Yes Type: carbonated beverages Number of servings: 1 what type of physical activity do you participate in: none Prior Cardiac Testing/Procedures Prior Cardiac Testing/Procedures: Echocardiogram ( ) and Stenting ( PTCA with KEYANA to proximal third marginal artery 04/30/2013) Review of Systems (Anesthesia) ROS Narrative System reviewed and no additional complaints, except as documented.
[2024-08-19] MEDS: Lidocaine 2% (5ml sdv) 5 ML VIAL.MPF ×2 (14:40→14:45)
[2024-08-19] MEDS: Phenylephrine 0.25% 15 ML NASAL.SRY 15 SPRAY NASAL (14:45)
[2024-08-19] MEDS: Lidocaine Jelly 2% 20 ML Syringe (URO-JET) 1 APPLIC (14:45)
--- NOTE | 2024-08-19 15:00 | LUNG_PTH ---
PATIENT: GRACIE LEMONS LOC: EN U#:[id number] AGE/SX: 74/M ROOM: RE08/19/[address]: Dr. Octavio Rasmussen MD : 1950 BED: DIS: 08/19/2024 SPEC #: [id number] RECD: 08/20/24 10:23 STATUS: JONO RENikole #: [id number] ALEXA: 08/19/24 15:[address]: Octavio Rasmussen V DEPT: SURGICAL PATHOLOGY RECD BY: Robbie Alvarez ENTERED: 08/20/24 10:24 SP TYPE: LUNG BX OTHR DR: Dr. Connor Kohli MD Tissues: Lung, NOS Procedures: Surgery Specimen Level IV HEADER OPERATION: Bronchoscopy (MAC), biopsy PRE-OP DIAGNOSIS: Pulmonary fibrosis TISSUE SUBMITTED: Right lower lobe MICROSCOPIC DIAGNOSIS Lung, right lower lobe, endobronchial biopsy: * The final diagnosis is PENDING expert consultation with a thoracic transportation specialist at [facility]. The solutions sales consultant's report will be provided in an ADDENDUM. MICROSCOPIC DESCRIPTION Slides are reviewed. GROSS DESCRIPTION Received in formalin labeled Gracie Lemons and is not designated are multiple wells, ragged, irregular shaped, soft, tissue fragments that aggregate to 1.4 x 1.3 x 0.2 cm. Totally submitted in one cassette.JK. 08/20/2024 CPT:[id number] ADDENDUM ADDENDUM ADDENDUM ADDENDUM ADDENDUM ADDENDUM ADDENDUM ADDENDUM ADDENDUM ADDENDUM ADDENDUM 09/01/2024 13:13 ADDENDUM 09/01/2024 13:13 ADDENDUM 09/01/2024 13:13 ADDENDUM 09/01/2024 13:13 ADDENDUM 09/01/2024 13:13 This addendum is added to incorporate an outside pathology consultation report. The case was examined at [facility] by Dr. Burciaga (#[id number]) and the following diagnosis was rendered. A. Lung, right lower lobe, endobronchial biopsy: Fragments of benign lung tissue with peribronchiolar metaplasia. Patchy chronic lymphoplasmacytic inflammation. Please see complete above mentioned consultation report in EMR
--- NOTE | 2024-08-19 15:04 | PCM.POST.ANE ---
Anesthesia: Postop Eval I Current Vital Signs Temperature: 97.4 F Pulse Rate: 72 Blood Pressure: 110/98 Respiratory Rate: 18 Pulse Ox: 93 Assessment Airway patent: Yes Spontaneous unlabored respirations: Yes nausea: No Vomiting: No Anesthesia Complication: No Fluid Hydration Crystalloid volume administer (ml): 0 Total IV fluid infused: 0 Progress Note Anesthesia document: Postop Eval 1 completed: Yes
--- NOTE | 2024-08-19 15:07 | OP.BRONCH_ITS ---
Patient Name: Deion Lemons Procedure Date: 08/19/2024 2:08 PM Date of : 1950 Age: 74 Procedure: Bronchoscopy Indications: Interstitial lung disease Providers: Octavio Rasmussen MD Referring MD: Connor Kohli MD Medicines: Lidocaine applied to nares and subglottic space Complications: No immediate complications Procedure: Pre-Anesthesia Assessment: - A History and Physical has been performed. The patient's medications, allergies and sensitivities have been reviewed. After I obtained informed consent, the scope was passed under direct vision. Throughout the procedure, the patient's blood pressure, pulse, and oxygen saturations were monitored continuously. The bronchoscope was introduced through the left nostril and advanced to the tracheobronchial tree of both lungs. The procedure was accomplished without difficulty. The patient tolerated the procedure well. The total duration of the procedure was 30 minutes. Moderate Sedation: An independent trained observer was present and continuously monitored the patient. Findings: The nasopharynx/oropharynx appears normal. The larynx appears normal. The vocal cords appear normal. The subglottic space is normal. The trachea is of normal caliber. The kavita is sharp. The tracheobronchial tree was examined to at least the first subsegmental level. Bronchial mucosa and anatomy are normal; there are no endobronchial lesions, and no secretions. Transbronchial biopsies of an area of infiltration were performed in the posterior basal segment of the right lower lobe using forceps and sent for cell count, bacterial culture, viral smears & culture, and fungal & AFB analysis and cytology. The procedure was guided by fluoroscopy. Biopsy of lung tissue was obtained. Six biopsy passes were performed. Six biopsy samples were obtained. The bronchoscope was advanced until wedged at the desired location for bronchoalveolar lavage. BAL was performed [Site] and sent for cell count, bacterial culture, viral smears & culture, and fungal & AFB analysis and cytology, cell count and differential and bacterial, AFB and fungal analysis. [Instilled volume]. [return volume]. [return description]. [Plugs present]. [Multi samples]. Trachea/Kavita Abnormalities: Partially obstructing (about 80% obstructed) bronchomalacia was found throughout the tracheobronchial tree. Impression: - Interstitial lung disease - The airway examination was normal. - Transbronchial lung biopsies were performed. - Bronchoalveolar lavage was performed. Recommendation: - Await test results. MD Octavio Baumann MD 08/19/2024 3:06:59 PM This report has been signed electronically. Number of Addenda: 0 Note Initiated On: 08/19/2024 2:08 PM
[2024-08-19 15:12] LABS: Bedside Glucose 184 mg/dL (74-106)
--- NOTE | 2024-08-19 15:13 | RAD_ITS ---
PROCEDURE: CHEST 1 VIEW (PORTABLE) REASON FOR EXAM: Status post bronchoscopy. TECHNIQUE: Frontal view of the chest. COMPARISON: Chest x-ray 05/22/2024. RAD/Chest 1 View (Portable) IMPRESSION: The examination is limited by AP portable technique, hypoinflation, and patient motion. No pneumothorax is seen. Minimal right and [id number] left basilar atelectasis is seen No pleural effusion is noted. The cardiomediastinal silhouette is stable, without evidence of cardiomegaly. Reading Location: [id number]
--- NOTE | 2024-08-19 15:34 | POSTOPAN2_ITS ---
Anesthesia Postop Eval I Sum Postop Eval Completion status Anesthesia document: Postop Eval 1 completed: Yes Anesthesia Postop Eval I Summary Anesthesia Postop Eval I Summary: Anesthesia Postop Eval I: Assessment Summary Airway patent Yes 08/19/24 15:04 SALES [email or web address] Spontaneous unlabored Yes 08/19/24 15:04 SALES [email or web address].CSIR respirations Mental status nausea No 08/19/24 15:04 SALES FACILITATOR.CSIR Vomiting No 08/19/24 15:04 SALES FACILITATOR.CSIR Anesthesia Postop Eval I: Fluid Summary Crystalloid volume administer 0 08/19/24 15:04 SALES [email or web address].CSIR (ml) Colloids volume administered ( ml) Blood Product volume administered (ml) Total IV fluid infused 0 08/19/24 15:04 SALES [email or web address].CSIR Anesthesia Postop Eval I: Summary Notes Anesthesia Complication No 08/19/24 15:04 SALES [email or web address].CSIR Anesthesia Complication Comment: Post-operative progress note Anesthesia: Postop Eval II Evaluation Mental status: Awake Pain Level: 0 nausea: No Vomiting: No
--- NOTE | 2024-08-19 15:34 | PCM.POSTANE2 ---
Anesthesia Postop Eval I Sum Postop Eval Completion status Anesthesia document: Postop Eval 1 completed: Yes Anesthesia Postop Eval I Summary Anesthesia Postop Eval I Summary: Anesthesia Postop Eval I: Assessment Summary Airway patent Yes 08/19/24 15:04 LAYER [email or web address] Spontaneous unlabored Yes 08/19/24 15:04 LAYER UP.CSIR respirations Mental status nausea No 08/19/24 15:04 LAYER UP.CSIR Vomiting No 08/19/24 15:04 LAYER UP.CSIR Anesthesia Postop Eval I: Fluid Summary Crystalloid volume administer 0 08/19/24 15:04 LAYER UP.CSIR (ml) Colloids volume administered ( ml) Blood Product volume administered (ml) Total IV fluid infused 0 08/19/24 15:04 LAYER UP.CSIR Anesthesia Postop Eval I: Summary Notes Anesthesia Complication No 08/19/24 15:04 LAYER UP.CSIR Anesthesia Complication Comment: Post-operative progress note Anesthesia: Postop Eval II Evaluation Mental status: Awake Pain Level: 0 nausea: No Vomiting: No
[2024-08-20 07:29] LABS: Pathologist Comment/Body Fluid May follow
[2024-08-20 07:31] LABS: Cytology, Body Fluid / CSF SEE PATHOLOGY REPORT
[2024-08-20 08:09] LABS: Body Fluid Mononuclear WBC # 0.397 10^3/uL; Body Fluid Mononuclear WBC % 84.6 %; Body Fluid Polynuclear WBC # 0.072 10^3/uL; Body Fluid Polynuclear WBC % 15.4 %; Red Cell Count/Body Fluid 0.037 10^6/ul; White Blood Count/Body Fluid 0.469 10^3/uL
[2024-08-20 08:19] LABS: Appearance/Body Fluid SL CLDY; Color/Body Fluid RED
[2024-08-20 08:46] LABS: Lymphocytes 77 %; Macrophages 18 %; Neutrophil (Segs) 2 %; Other Cell Type/BF 3 %
[2024-08-20 08:50] LABS: Body Fluid QC Type(s) BF1Q; Source- Body Fluid BRONCHIAL LAVAGE
== END 2024-08-19 16:30 | disposition home or self-care (01) ==
LOC: EN 12:43 → AC 13:06
PROVIDERS: PCP Family Medicine; Referring Provider Family Medicine; Visit Provider Internal Medicine Pulmonary Disease
PROC: 0BJ08ZZ Inspection of Tracheobronchial Tree, Via Natural or Artificial Opening Endoscopic (ICD-10-PCS; CPT 31622; principal; 2024-08-19 13:45)
DX: J84.9 Interstitial pulmonary disease, unspecified (principal); G47.33 Obstructive sleep apnea (adult) (pediatric); I10 Essential (primary) hypertension; Z79.899 Other long term (current) drug therapy; Z79.84 Long term (current) use of oral hypoglycemic drugs; Z86.16 Personal history of COVID-19; Z86.73 Personal history of transient ischemic attack (TIA), and cerebral infarction without residual deficits
CPT/HCPCS: 31628; 31624; 71045; 76000; 82962; 87015; 87116; 87206; 88108; 88305; 88313; 89050; A4216; J2405

== ENCOUNTER → 2024-08-26 | Outpatient (CLI) | payer MEDICARE, OTHER, SELFPAY ==
[2024-08-26 12:57] LABS: ALB/GLOB Ratio 1.1 RATIO (0.9-2.4); AST(SGOT) 30 U/L (<=37); Alanine Aminotransfer ALT/SGPT 21 U/L (<=46); Albumin, Serum 3.8 g/dL (3.4-4.8); Alkaline Phosphatase 69 U/L (40-129); Anion Gap 12 (5-15); BUN 17 mg/dL (4-19); BUN/Creat Ratio 12.4 RATIO (10-20); Calcium,Total 9.5 mg/dL (7.6-11.0); Carbon Dioxide 21.5 mmol/L (21.0-32.0); Chloride 102 mmol/L (98-108); Creatinine, Serum 1.33 mg/dL (0.70-1.20); EST Glomerular Filtration Rate 56 (>60); Globulin 3.4 g/dL (2.2-4.2); Glucose 303 mg/dL (70-99); Potassium 4.1 mmol/L (3.3-5.1); Protein, Total 7.2 g/dL (5.9-8.4); Sodium Level 136 mmol/L (133-145); Total Bilirubin 0.46 mg/dL (0.00-1.30)
[2024-08-26 13:42] LABS: Hemoglobin A1c 8.2 % (<=5.6)
== END | disposition home or self-care (01) ==
LOC: MTLAB 10:26
PROVIDERS: PCP Family Medicine; Referring Provider Internal Medicine Endocrinology, Diabetes & Metabolism; Visit Provider Internal Medicine Endocrinology, Diabetes & Metabolism
DX: E11.65 Type 2 diabetes mellitus with hyperglycemia (principal); E03.8 Other specified hypothyroidism
CPT/HCPCS: 36415; 80053; 83036; 84443

== ENCOUNTER → 2024-11-04 | Outpatient (CLI) | payer MEDICARE, OTHER, SELFPAY ==
[2024-11-05 10:58] LABS: Anion Gap 11 (5-15); BUN 17 mg/dL (4-19); BUN/Creat Ratio 15.6 RATIO (10-20); Calcium,Total 9.6 mg/dL (7.6-11.0); Carbon Dioxide 22.7 mmol/L (21.0-32.0); Chloride 102 mmol/L (98-108); Creatinine, Serum 1.08 mg/dL (0.70-1.20); EST Glomerular Filtration Rate 72 (>60); Glucose 161 mg/dL (70-99); Potassium 4.2 mmol/L (3.3-5.1); Sodium Level 136 mmol/L (133-145)
== END | disposition home or self-care (01) ==
LOC: MTLAB 11:47
PROVIDERS: PCP Family Medicine; Referring Provider Internal Medicine Endocrinology, Diabetes & Metabolism; Visit Provider Internal Medicine Endocrinology, Diabetes & Metabolism
DX: E11.65 Type 2 diabetes mellitus with hyperglycemia (principal)
CPT/HCPCS: 36415; 80048

== ENCOUNTER 2024-11-29 15:30 | Emergency (ER) | payer MEDICARE, OTHER, SELFPAY ==
[2024-11-29 15:31] VITALS: BP 138/76; PULSE 73; RESP 16; TEMP 36.5; O2SAT 97
[2024-11-29 15:37] VITALS: BMI 32.8
--- OUTSIDE RECORDS SUMMARY | 2024-11-29 15:57 | XMS RPT_ITS | CCD ---
Author Organization [facility]iniSywa Care Team Providers Care [employer] Cash[employer] Supervisor Name Role Phone Audrey Joaquin RN Unavailable Unavailable Tu Tracy Unavailable Unavailable Tu Tracy Unavailable Unavailable Sapna Ortiz Unavailable Unavailable Audrey Joaquin RN Unavailable Unavailable Ghada Ireland Unavailable Unavailable Ghada Ireland Unavailable Unavailable Fast, Colleen A Unavailable Fast, Colleen A Primary Care Provider [phone] Cayla SOMMERS, Rylee Kilgore Unavailable [phone] Dr. Connor Kohli Primary Care Provider Dr. Connor Kohli Referring Provider Mike WALDEN, GEOSPATIAL ANALYST-C Jo Attending Provider Dr. Connor Acevedo Attending Provider [phone] Dr. Connor Kohli Primary Care Provider Dr. Connor Kohli Referring Provider Mike WALDEN, WIN-C Jo Attending Provider Lorenzo GEOSPATIAL ANALYST, GEOSPATIAL ANALYST-C Anmol Paige Attending Provider [phone] Dr. Donny Singh Attending Provider [phone] Connor Kohli Primary Care Provider Dr. Connor Kohli Referring Provider Mike WALDEN NP-C Jo Attending Provider Dr. Connor Acevedo Attending Provider Lorenzo GEOSPATIAL ANALYST, GEOSPATIAL ANALYST-C Anmol Paige Attending Provider Dr. Donny Singh Attending Provider [phone] Connor Kohli Primary Care Provider [phone] Dr. Connor Kohli Referring Provider Dr. Connor Acevedo Attending Provider Dr. Vamsi Story Attending Provider Elian, Dr. Cordova Attending Provider Kohli, Dr. Ryan Primary Care Provider Seun, Dr. Ryan Referring Provider Dr. Vamsi Story Attending Provider Elian, Dr. Cordova Attending Provider Kohli, Dr. Ryan Primary Care Provider Seun, Dr. Ryan Referring Provider [facility] GEOSPATIAL ANALYST, GEOSPATIAL ANALYST-Shruti Paige Attending Provider Dr. Tino Gamble Attending Provider Seun, Dr. Ryan Primary Care Provider Dr. Tino Gamble Attending Provider Dr. Tino Gamble Referring Provider Seun, Dr. Ryan Referring Provider Seun, Dr. Ryan Referring Provider Dr. Alyson Collier Attending Provider Seun, Dr. Ryan Primary Care Provider Dr. Tino Gamble Attending Provider Dr. Tino Gamble Referring Provider Seun, Dr. Ryan Referring Provider Fast DO, Colleen A Unavailable Connor Kohli MD Primary Care Provider Unavailable Primary Care Provider UnavailERICKA Resendiz Attending Unavailable SEUN, CONNOR Madrid Primary Care Unavailable SEUN, CONNOR [place] Referring Unavailable ERICKA MELISSA Attending Unavailable SEUN, CONNOR [place] Primary Care Unavailable SEUN, CONNOR [place] Referring Unavailable ERICKA MELISSA Attending Unavailable SEUN, CONNOR [place] Referring Unavailable KOHLI, CONNOR [place] Primary Care Unavailable PETRULIS, FAVIO Referring Unavailable PETRULIS, FAVIO Attending Unavailable KOHLI, CONNOR R Primary Care Unavailable PETRULIS, FAVIO Referring Unavailable KOHLI, CONNOR R Primary Care Unavailable PETRULIS, FAVIO Attending Unavailable PETRULIS, FAVIO Attending Unavailable PETRULIS, FAVIO Referring Unavailable KOHLI, CONNOR R Primary Care Unavailable Seun MAY, Dr. Ryan Primary Care Provider [phone] Seun MAY, Dr. Ryan Referring Provider Sushma MAY, Dr. Shields Attending Provider Seun MAY, Dr. Ryan Other Provider Tita Pimentel Attending Provider Tiat Pimentel Referring Provider Sushma MAY, Dr. Shields Other Provider Mavis MAY, Dr. Jiménez Attending Provider Dr. Tino Gamble MD Referring Provider Dr. Chito Munoz DO Attending Provider [phone] Dr. Chito Munoz DO Emergency Provider [phone] Dr. Edilberto Manuel DO Attending Provider Dr. Edilberto Manuel DO Emergency Provider Sushma MAY, Dr. Shields Referring Provider Rianna MAY, Dr. Fallon Attending Provider PETRERICS, ERICKA Attending Provider [phone] PETRULIS, ERICKA Referring Provider [phone] Harjit MAY, Dr. Avinash Fink Admit Provider Harjit MAY, Dr. Avinash Fink Attending Provider [phone] Harjit MAY, Dr. Avinash Fink Referring Provider Grady MAY, Dr. Octavio Ballard Attending Provider Dr. Octavio Rasmussen MD, V Referring Provider Dr. Griffin Saldivar DO Attending Provider Janna ZAVALA, Dr. Moya Referring Provider Seun MAY, Dr. Ryan Primary Care Provider Sushma MAY, Dr. Shields Attending Provider Sushma MAY, Dr. Shields Other Provider Seun MAY, Dr. Ryan Referring Provider Seun MAY, Dr. Ryan Primary Care Provider Chris MAY, Dr. Sawant Attending Provider Chris MAY, Dr. Sawant Referring Provider Kohli, Connor Primary Care Unavailable Harshal GREENE, Tita Attending Unavailable Harshal PA, Tita Referring Unavailable Kohli, Connor Primary Care Unavailable Baddour, Tino Referring Unavailable Baddour, Tino Attending Unavailable Kohli, Connor Primary Care Unavailable Chito Munoz Attending Unavailable Kohli, Connor Referring Unavailable Kohli, Connor Primary Care Unavailable Kohli, Connor Attending Unavailable Kohli, Connor Primary Care Unavailable Sibilia, Octavio V Attending Unavailable Sibilia, Octavio V Referring Unavailable Sushma, Alyson Consulting Unavailable Sushma, Alyson Referring Unavailable Kohli, Connor Primary Care Unavailable Leeanne Blanca Attending Unavailabl e Kohli, Connor Primary Care Unavailable Baddour, Tino Referring Unavailable Baddour, Tino Attending Unavailable Kohli, Connor Primary Care Unavailable Griffin Saldivar Attending Unavailable Griffin Saldivar Referring Unavailable Harjit, Avinash Fink Admitting Unavailable Harjit, Avinash Fink Attending Unavailable Harjit, Avinash Fink Referring Unavailable Kohli, Connor Primary Care Unavailable Kohli, Connor Referring Unavailable Kohli, Connor Primary Care Unavailable Sibilia, Octavio V Attending Unavailable Kohli, Connor Primary Care Unavailable Sibilia, Octavio Ballard Attending Unavailable Sibilia, Octavio V Referring Unavailable Kohli, Connor Primary Care Unavailable Baddour, Tino Referring Unavailable Baddour, Tino Attending Unavailable Edilberto Manuel Attending Unavailable Kohli, Connor Primary Care Unavailable Sushma, Alyson Consulting Unavailable Kohli, Connor Primary Care Unavailable Harshal GREENE, Tita Attending Unavailable Harshal PA, Tita Referring Unavailable Kohli, Connor Consulting Unavailable Kohli, Connor Primary Care Unavailable Baddour, Tino Referring Unavailable Baddour, Tino Attending Unavailable Kohli, Connor Primary Care Unavailable Baddour, Tino Referring Unavailable Baddour, Tino Attending Unavailable Kohli, Connor Referring Unavailable Sushma, Alyson Attending Unavailable Kohli, Connor Primary Care Unavailable Sushma, Alyson Attending Unavailable Sushma, Alyson Referring Unavailable Kohli, Connor Primary Care Unavailable Kohli, Connor Primary Care Unavailable STANISLAW, S Attending Unavailable STANISLAW, S Referring Unavailable Wietecha, Griffin Attending Unavailable Kohli, Connor Primary Care Unavailable Wietecha, Griffin Referring Unavailable Baddour, Tino Attending Unavailable Baddour, Tino Referring Unavailable Kohli, Connor Primary Care Unavailable Kohli, Connor Primary Care Unavailable Baddour, Tino Referring Unavailable Baddour, Tino Attending Unavailable Kohli, Connor Referring Unavailable Kohli, Connor Primary Care Unavailable Sushma, Alyson Attending Unavailable Kohli, Connor Primary Care Unavailable Baddour, Tino Referring Unavailable Baddour, Tino Attending Unavailable Sailors, Jese Attending Unavailable Sailors, Jese Referring Unavailable Kohli, Connor Primary Care Unavailable Leeanne Blanca Attending Unavailabl e Kohli, Connor Primary Care Unavailable Kohli, Connor Primary Care Unavailable Wietecha, Griffin Attending Unavailable Wietecha, Griffin Referring Unavailable Allergies Allergy Classification Reported Allergen(s) Allergy Type Date of Onset Reaction(s) Facility (8 sources) acetaminophen drug allergy 3 anaphylaxis [facility] Work Phone: [phone] (8 sources) HYDROmorphone drug allergy 3 [facility] Work Phone: [phone] (16 sources) penicillin drug allergy 3 Hives [facility] Work Phone: [phone] (8 sources) CANT RECALL drug allergy 3 [facility] Work Phone: [phone] (2 sources) Acetaminophen; Translations: [ACETAMINOPHEN] Drug Allergy 5 [facility] (6 sources) HYDROmorphone Drug Allergy 3 Confusion [facility] (7 sources) Penicillins; Translations: [PENICILLINS] Propensity to adverse reactions to drug 5 Hives, Rash [facility] (20 sources) Acetaminophen Drug Allergy 5 Anaphylaxis [facility] (20 sources) HYDROmorphone; Translations: [hydromorphone HCl] Drug Allergy 1 Unknown, Other [facility] Comment on above: makes me feel crazy (20 sources) Penicillins Allergy to substance 2 Hives, Other [facility] Comment on above: kidney shut down (5 sources) Acetaminophen Drug Allergy 3 [facility] (5 sources) Penicillins Propensity to adverse reactions to drug 3 Hives, Rash [facility] (1 source) Penicillins Propensity to adverse reactions 5 [facility] Work Phone: (1 source) Acetaminophen Drug Allergy 5 [facility] (1 source) Penicillins Drug allergy (disorder) 5 [facility] Medications Current Medications Medication Drug Class(es) Dates Sig (Normalized) Sig (Original) acetaminophen 500 mg / HYDROcodone bitartrate 5 mg oral tablet (1 source) Opioid Agonist Start: 08-13-2008 take 1-2 tablets by mouth every four hours as needed HYDROCODONE-ACETAMI NOPHEN 5 MG-500 MG TAB 1 to 2 po q 4 hours prn 30 0 08/13/2008 Active acetaZOLAMIDE 250 mg oral tablet (2 sources) Carbonic Anhydrase Inhibitor Start: 09-26-2005 ACETAZOLAMIDE 250 MG TAB Take one(1) tablet daily. 0 08/13/2008 Active 0.2 ml adalimumab 50 mg/ml prefilled syringe (17 sources) Tumor Necrosis Factor Ruba Start: 10-21-2018 Adalimumab (Humira) 10 mg/0.2 mL syringe kit Active 40 MG SC every 2 weeks October 20, 2018 11:00pm End: 05-12-2024 Adalimumab (HUMIRA) 10 MG/0. 1ML Prefilled Syringe Kit Inject under the skin. Active cholecalciferol 0.025 mg oral capsule (20 sources) Vitamin D Start: 05-05-2018 take 5 capsules by mouth once daily Cholecalciferol (Vitamin D3) 1,000 unit capsule Active 5000 U PO DAILY May 05, 2018 1:00am Start: 05-05-2018 take 5000 [IU] by [facility] once daily Cholecalciferol (Vitamin D3) Active 5000 UNIT PO DAILY May 05, 2018 1:00am Start: 04-10-2013 End: 05-05-2013 take 2 tablets by mouth once daily VITAMIN D 2000 UNIT TABS Two tablets by mouth daily CHOLECALCIFEROL [id number] Ericka Mcgill RN take 2 capsules by m outh at bedtime Vitamin D3 2000 UNITS PO CAPS Indications: Lumbar radiculopathy , Displacement of lumbar intervertebral disc without myelopathy , Acquired spondylolisthesis , Lumbar stenosis with neurogenic claudication , Back pain Take 2 capsules by mouth at bedtime. Active take 2 capsules by m outh once daily at bedtime Cholecalciferol, Vitamin D3, 50 mcg (2,000 unit) cap Take 2 capsules by mouth daily at bedtime. Active Disability Placard (11 sources) Start: 11-29-2022 Disability Rikki card Active 0 .Route .MEDSUPPLY November 28, 2022 11:00pm Expiration: 11/29/2025 Start: 11-29-2022 Disability Rikki card Active 0 .Route .MEDSUPPLY November 29, 2022 12:00am Expiration: 11/29/2025 Dulaglutide (11 sources) GLP-1 Receptor Agonist Start: 05-24-2024 Dulaglu tide (Trulicity) 3 mg/0.5 mL pen injector Active 3 mg SC SA May 24, 2024 1:00am Start: 05-11-2024 Trulicity 1.5 MG/0.5ML Solution Auto-injector injection Inject 0.5 mL as directed once a week. 05/11/2024 Active Start: 12-02-2023 End: 05-24-2024 Dulaglutide (Trulicity) 0.75 mg/0.5 mL pen injector Discontinued 0.75 mg SC EVERY WEEK December 02, 2023 12:00am May 24, 2024 4:44pm 24 hr empagliflozin 12.5 mg / metFORMIN hydrochloride 1000 mg extended release oral tablet (12 sources) Biguanide, Sodium-Glucose Cotransporter 2 Inhibitor Start: 03-04-2024 SYNJARDY XR 12.5-1,000 mg XR tab Take 12.5-1,000 mg by mouth. 03/04/2024 Active Start: 05-16-2023 Empagliflozin- Metformin (Synjardy Xr) 12.5-1,000 mg tablet, IR - ER, biphasic 24hr Active 2 {tbl} PO DAILY May 16, 2023 1:00am finasteride 5 mg oral tablet (20 sources) 5-alpha Reductase Inhibitor Start: 10-12-2016 take 1 tablet by mouth at bedtime Finasteride 5 MG tablet Active 5 mg PO AT BEDTIME October 12, 2016 12:00am gabapentin 300 mg oral capsule (9 sources) Anti-epileptic Agent Start: 04-17-2024 take 1 capsule by mouth three times daily Gabapentin 300 MG capsule Take 1 capsule by mouth 3 (three) times a day. 04/17/2024 Active Start: 01-30-2024 take 1 capsule by mo ut twice daily Gabapentin 300 mg capsule Active 300 mg PO TWICE A DAY January 30, 2024 12:00am Left AFO (3 sources) Start: 09-30-2023 Left AFO Active 0 .Route .MEDSUPPLY September 30, 2023 12:00am As directed levothyroxine sodium 0.05 mg oral tablet (12 sources) l-Thyroxine Start: 05-16-2023 take 1 tablet by mouth once daily Levothyroxine 50 mcg tablet Active 50 ug PO DAILY May 16, 2023 1:00am lovastatin 20 mg oral tablet (1 source) HMG-CoA Reductase Inhibitor Start: 08-13-2008 LOVASTATIN 20 MG TAB Take one(1) tablet two(2) times daily. 0 08/13/2008 Active nitroglycerin 0.4 mg sublingual tablet (20 sources) Nitrate Vasodilator Start: 10-26-2020 End: 10-26-2020 Nitroglycerin 0.4 mg tablet, sublingual Active 0.4 mg SL every 5 to 15 minutes as needed for chest pain October 26, 2020 1:43pm do not exceed 3 doses per episode Start: 10-26-2020 End: 10-26-2020 Nitroglycerin Active 0.4 MG SL every 5 to 15 minutes October 26, 2020 1:43pm do not exceed 3 doses per episode nortriptyline 25 mg oral capsule (20 sources) Tricyclic Antidepressant Start: 04-16-2013 take 1 capsule by mouth at bedtime Nortriptyline 25 MG capsule Active 25 mg PO AT BEDTIME April 23, 2013 1:00am 24 hr oxybutynin chloride 10 mg extended release oral tablet (20 sources) Cholinergic Muscarinic Antagonist Start: 05-20-2024 oxybutynin ER (DITROPAN XL) 10 mg 24 hr tablet 05/20/2024 Active Start: 05-21-2022 take 1 tablet by ivan th once daily in the evening Oxybutynin Chloride 10 mg tablet extended release 24hr Active 10 mg PO EVERY EVENING May 21, 2022 1:00am Start: 09-28-2019 End: 03-13-2022 take 1 tablet by mouth once daily Oxybutynin Chloride 10 mg tablet extended release 24hr Discontinued 10 mg PO DAILY September 28, 2019 12:00am March 13, 2022 11:04am Start: 04-10-2013 End: 10-12-2016 take 1 tablet by mouth at bedtime DITROPAN XL 10 MG [id number] One tablet by mouth at bedtime. OXYBUTYNIN CHLORIDE [id number] Rylee Singh PA-C Start: 04-10-2013 End: 10-12-2016 take 1 tablet by mouth at bedtime DITROPAN XL 10 MG [id number] One tablet by mouth at bedtime. OXYBUTYNIN CHLORIDE [id number] Rylee Singh PA-C Start: 04-10-2013 take 1 tablet by ivan at bedtime DITROPAN XL 10 MG [id number] One tablet by mouth at bedtime. OXYBUTYNIN CHLORIDE [id number] Ericka Mcgill RN take 2 tablets by mo [facility] at bedtime oxybutynin 5 MG PO TABS Take 2 tablets by mouth at bedtime. Active pantoprazole 40 mg delayed release oral tablet (20 sources) Proton Pump Inhibitor Start: 04-23-2013 take 1 tablet by mouth once daily Pantoprazole 40 MG tablet Active 40 mg PO DAILY April 23, 2013 1:00am Start: 04-10-2013 take 1 tablet by ivan once daily PROTONIX 40 MG SOLR One tablet by mouth daily PANTOPRAZOLE SODIUM [id number] Ericka Mcgill RN pantoprazole sod ium (PROTONIX ORAL) Protonix Oral Active predniSONE 1 mg oral tablet (20 sources) Corticosteroid Start: 01-02-2006 PREDNISONE 1 M G TAB Take 2 tabs at HS with a 5mg tab 0 01/02/2006 Active Start: 06-26-2005 End: 05-12-2024 take 1 tablet by mouth once daily PREDNISONE 5 MG TABS One tablet by mouth daily PREDNISONE [id number] Rylee Singh PA-C rosuvastatin calcium 10 mg oral tablet (8 sources) HMG-CoA Reductase Inhibitor Start: 05-24-2024 take 1 tablet by mouth at bedtime Rosuvastatin 10 mg tablet Active 10 mg PO AT BEDTIME May 24, 2024 1:00am tamsulosin hydrochloride 0.4 mg oral capsule (20 sources) alpha-Adrenergic Ruba Start: 12-02-2023 take 1 capsule by mouth at bedtime Tamsulosin 0.4 mg capsule Active 0.4 mg PO AT BEDTIME December 02, 2023 12:00am Start: 04-23-2013 End: 05-16-2023 take 1 capsule by mouth at bedtime Tamsulosin 0.4 MG capsule Discontinued 0.4 mg PO AT BEDTIME April 23, 2013 1:00am May 16, 2023 2:04pm Start: 04-10-2013 take 2 tablets by mo uth once daily FLOMAX 0.4 MG CAPS Two tablets by mouth daily TAMSULOSIN HCL [id number] Ericka Mcgill RN TRULICITY 3 mg/0.5 mL pen injector (1 source) Start: 05-19-2024 TRULICITY 3 mg /0.5 mL pen injector 05/19/2024 Active vitamin b12 0.1 mg oral tablet (2 sources) Vitamin B12 Start: 08-24-2024 take 1 tablet by mouth once daily Cyanocobalamin (B-12) 100 MCG tablet Take 1 tablet by mouth daily. 08/24/2024 Active Completed/Discontinued Medications Medication Drug Class(es) Dates Sig (Normalized) Sig (Original) Adalimumab (Humira) 10 mg/0.2 mL syringe kit (16 sources) Start: 10-21-2018 End: 05-24-2024 Adalimumab (Humira) 10 mg/0.2 mL syringe kit Discontinued 40 mg SC every 2 weeks October 21, 2018 12:00am May 24, 2024 4:44pm Start: 10-21-2018 Adalimumab (Hu dayana) 10 mg/0.2 mL syringe kit Active 40 MG SC every 2 weeks October 21, 2018 12:00am Start: 10-21-2018 Adalimumab (Hu dayana) 10 mg/0.2 mL syringe kit Active 40 MG SC every 2 weeks October 20, 2018 11:00pm albuterol 0.83 mg/ml inhalation solution (20 sources) beta2-Adrenergic Agonist Start: 10-25-2021 End: 03-13-2022 take 2.5 mg by inhalation every six hours Albuterol Sulfate 2.5 mg /3 mL (0.083 %) solution for nebulization Discontinued 2.5 mg INHALATION EVERY 6 HOURS October 25, 2021 12:00am March 13, 2022 11:03am Start: 12-30-2019 End: 10-26-2020 Albuterol Sulfate 1 PUFF inh aler Discontinued 2 NMA IH EVERY 4 HOURS NEEDED as needed for Sob &/Or Wheezing December 30, 2019 9:10am October 26, 2020 1:24pm Start: 12-30-2019 End: 10-26-2020 take 1 puff(s) by inhalation every four hours as needed Albuterol Sulfate Discontinued 2 PUFF IH EVERY 4 HOURS NEEDED December 30, 2019 9:10am October 26, 2020 1:24pm amLODIPine 10 mg / benazepril hydrochloride 20 mg oral capsule (20 sources) Dihydropyridine Calcium Channel Ruba, Angiotensin Converting Enzyme Inhibitor Start: 04-10-2013 take 1 tablet by mouth once daily LOTREL 10-20 MG CAPS One tablet by mouth daily AMLODIPINE BESY-BENAZEPRIL HCL [id number] Ericka Mcgill RN Start: 04-10-2013 End: 05-05-2013 take 1 tablet by mouth once daily LOTREL 10-20 MG CAPS One tablet by mouth daily AMLODIPINE BESY-BENAZEPRIL HCL [id number] Letitia Wing RN Start: 09-26-2005 End: 03-25-2015 take 10-20 mg by mouth once daily AMLODIPINE BESY-BENAZEPRIL HCL 10-20 MG CAPS One tablet by mouth daily AMLODIPINE BESY-BENAZEPRIL HCL [id number] Letitia Wing RN End: 05-12-2024 take 1 capsule by mouth at bedtime amlodipine-benazepril 10-20 MG PO CAPS Indications: Lumbar radiculopathy , Displacement of lumbar intervertebral disc without myelopathy , Acquired spondylolisthesis , Lumbar stenosis with neurogenic claudication , Back pain take 1 Cap by mouth at bedtime. 05/12/2024 Discontinued ascorbic acid 1000 mg oral tablet (20 sources) Start: 04-16-2013 End: 05-05-2013 take 1 tablet by mouth twice daily VITAMIN C 1000 MG TABS One tablet by mouth twice daily ASCORBIC ACID [id number] Letitia Wing RN Start: 04-10-2013 take 1 tablet by ivan th once daily VITAMIN C 1000 MG TABS One tablet by mouth daily ASCORBIC ACID [id number] Ericka Mcgill RN End: 05-12-2024 take 2 tablets by mouth at bedtime ascorbic acid 500 MG PO TABS take 1,000 mg by mouth at bedtime. 05/12/2024 Discontinued take 2 tablets by mo uth at bedtime ascorbic acid 500 MG PO TABS take 1,000 mg by mouth at bedtime. 0 Active aspirin 81 mg chewable tablet (20 sources) Nonsteroidal Anti-inflammatory Drug Start: 04-23-2013 End: 05-12-2024 take 1 tablet by mouth at bedtime Aspirin 81 MG tablet,chewable Discontinued 81 mg PO AT BEDTIME April 23, 2013 1:00am December 02, 2023 10:52am Start: 04-16-2013 take 1 tablet by ivan th once daily ASPIR-81 81 MG TBEC One tablet by mouth daily ASPIRIN [id number] Connor Acevedo MD Start: 04-16-2013 take 1 tablet by ivan th once daily ASPIRIN EC 81 MG TBEC One tablet by mouth daily ASPIRIN [id number] Audrey Joaquin RN Start: 04-16-2013 take 1 tablet by ivan th once daily ASPIR-81 81 MG TBEC One tablet by mouth daily ASPIRIN [id number] Connor Acevedo MD budesonide 0.25 mg/ml inhalation suspension (20 sources) Corticosteroid Start: 10-25-2021 End: 01-29-2022 take 0.5 mg by inhalation twice daily Budesonide 0.5 mg/2 mL suspension for nebulization Discontinued 0.5 mg INHALATION TWICE A DAY October 25, 2021 12:00am January 29, 2022 8:47am calcium (20 sources) Phosphate Binder, Calcium Start: 02-22-2014 End: 10-12-2016 CALCIUM 500 MG TABS 1000mg daily CALCIUM [id number] Rylee Singh PA-C Start: 02-22-2014 CALCIUM 500 MG TABS 1000mg daily CALCIUM [id number] Rylee Singh PA-C Start: 02-22-2014 End: 10-12-2016 CALCIUM 500 MG TABS 1000mg d aily CALCIUM [id number] Rylee Singh PA-C Start: 02-22-2014 CALCIUM 500 MG TABS 1000mg daily CALCIUM [id number] Rylee Singh PA-C Start: 04-16-2013 take 1 tablet by ivan th once daily CALCIUM 500 MG TABS One tablet by mouth daily CALCIUM [id number] Connor Acevedo MD Start: 04-16-2013 End: 05-05-2013 take 1 tablet by mouth once daily CALCIUM 500 MG TABS One tablet by mouth daily CALCIUM [id number] Letitia Wing RN Start: 04-16-2013 take 1 tablet by ivan th once daily CALCIUM 500 MG TABS One tablet by mouth daily CALCIUM [id number] Connor Acevedo MD Start: 04-16-2013 End: 05-05-2013 take 1 tablet by mouth once daily CALCIUM 500 MG TABS One tablet by mouth daily CALCIUM [id number] Letitia Wing RN calcium carbonate 1250 mg or al tablet (12 sources) Start: 02-22-2014 End: 10-12-2016 CALCIUM 500 MG TABS 1000mg d aily CALCIUM [id number] Rylee Singh PA-C Start: 04-16-2013 End: 05-05-2013 take 1 tablet by mouth once daily CALCIUM 500 MG TABS One tablet by mouth daily CALCIUM [id number] Connor Acevedo MD Start: 04-10-2013 take 1 tablet by ivan th twice daily CALCIUM 600 600 MG TABS One tablet by mouth twice daily CALCIUM CARBONATE [id number] Ericka Mcgill RN Start: 04-10-2013 take 1 tablet by ivan th twice daily CALCIUM 600 600 MG TABS One tablet by mouth twice daily CALCIUM CARBONATE [id number] Ericka Mcgill RN Start: 04-10-2013 take 1 tablet by ivan th twice daily CALCIUM 600 600 MG TABS One tablet by mouth twice daily CALCIUM CARBONATE [id number] Ericka Mcgill RN calcium carbonate 150 mg / prasterone 50 mg oral tablet (20 sources) Start: 10-18-2013 End: 05-05-2018 take 1 tablet by mouth at bedtime Prasterone (Dhea)-Calcium Carb 1 EACH tablet Discontinued 1 NMA PO AT BEDTIME October 18, 2013 12:00am May 05, 2018 2:35pm Start: 10-18-2013 End: 05-05-2018 Prasterone (Dhea)-Calcium Ca rb Discontinued 1 EACH PO AT BEDTIME October 18, 2013 12:00am May 05, 2018 2:35pm calcium citrate 1200 mg oral tablet (2 sources) End: 05-12-2024 take 1200 mg by mouth at bedtime Calcium Citrate (CITRACAL PO) take 1,200 mg by mouth at bedtime. 05/12/2024 Discontinued cilostazol 100 mg oral tablet (20 sources) Phosphodiesterase 3 Inhibitor Start: 10-18-2013 End: 05-12-2024 take 1 tablet by mouth twice daily Cilostazol 100 mg tablet Discontinued 0 .ROUTE .COMPLEX 180 July 13, 2022 9:41am November 22, 2022 1:57pm TAKE 1 TABLET BY MOUTH TWICE DAILY ciprofloxacin 500 mg oral tablet (3 sources) Quinolone Antimicrobial Start: 07-29-2024 End: 08-14-2024 take 1 tablet by mouth twice daily Ciprofloxacin Hcl (Cipro) 500 mg tablet Discontinued 500 mg PO TWICE A DAY July 29, 2024 1:00am August 14, 2024 11:33am clopidogrel 75 mg oral tablet (20 sources) [id number] Platelet Inhibitor Start: 04-27-2013 End: 03-19-2024 take 1 tablet by mouth at bedtime Clopidogrel 75 mg tablet Discontinued 0 .ROUTE .COMPLEX 90 March 28, 2023 8:09am May 16, 2023 2:07pm TAKE 1 TABLET BY MOUTH AT BEDTIME FOR BLOOD THINNER prasterone 50 mg oral capsule (20 sources) Start: 02-22-2014 take 1 tablet by mouth once daily DHEA 50 MG CAPS One tablet by mouth daily PRASTERONE (DHEA) [id number] Rylee Singh PA-C Start: 08-21-2013 End: 02-22-2014 take 2 tablets by mouth once daily DHEA 25 MG TABS Two tablets by mouth daily PRASTERONE (DHEA) [id number] Rylee Singh PA-C dicyclomine hydrochloride 10 mg oral capsule (20 sources) Anticholinergic Start: 02-08-2019 End: 09-28-2019 take 2 capsules by mouth three times daily before mealtime as needed for pain Dicyclomine 10 MG capsule Discontinued 20 mg PO THREE TIMES DAILY BEFORE MEALS as needed for Pain February 08, 2019 3:35pm September 28, 2019 10:31am Start: 02-08-2019 End: 09-28-2019 take 20 mg by mouth three times daily before mealtime Dicyclomine Discontinued 20 MG PO THREE TIMES DAILY BEFORE MEALS February 08, 2019 3:35pm September 28, 2019 10:31am doxycycline hyclate 100 mg oral capsule (3 sources) Tetracycline-class Drug Start: 05-24-2024 End: 07-29-2024 take 1 capsule by mouth twice daily Doxycycline Hyclate 100 mg capsule Discontinued 100 mg PO TWICE A DAY May 24, 2024 1:00am July 29, 2024 1:52pm empagliflozin 10 mg oral tablet (20 sources) Sodium-Glucose Cotransporter 2 Inhibitor Start: 06-06-2018 End: 08-25-2024 take 1 tablet by mouth once daily Empagliflozin (Jardiance) 10 mg tablet Discontinued 10 mg PO DAILY January 29, 2022 12:00am May 16, 2023 2:05pm ergocalciferol 1.25 mg oral capsule (1 source) Provitamin D2 Compound End: 05-12-2024 ergocalciferol 22556 units Cap Take 1,000 Units by mouth once a week. 05/12/2024 Discontinued (Therapy completed) ezetimibe 10 mg oral tablet (20 sources) Dietary Cholesterol Absorption Inhibitor Start: 04-04-2005 End: 12-30-2023 take 1 tablet by mouth at bedtime Ezetimibe 10 mg tablet Discontinued 10 mg PO AT BEDTIME January 24, 2023 8:09am December 30, 2023 9:20am ferrous sulfate 325 mg oral tablet (16 sources) Start: 04-10-2013 End: 04-16-2013 take 1 tablet by mouth twice daily FERROUS SULFATE 325 (65 Fe) MG TABS One tablet by mouth twice daily FERROUS SULFATE [id number] Ericka Mcgill RN folic acid 0.4 mg oral tablet (20 sources) Start: 04-16-2013 End: 10-03-2015 take 1 mg by mouth once daily FOLIC ACID 400 MCG TABS (0.4mg) One tablet by mouth daily FOLIC ACID [id number] Connor Acevedo MD End: 05-12-2024 take 1 tablet by mouth at bedtime FOLIC ACID take 1 Tab by mouth at bedtime. 05/12/2024 Discontinued take 1 tablet by ivan at bedtime FOLIC ACID take 1 Tab by mouth at bedtime. 0 Active Gadopiclenol SOLN 1-25 mL (1 source) Start: 08-25-2024 End: 08-25-2024 1-25 mL, Intravenous, ONCE, 1 dose, On Sat08/25/24 at 0945 glimepiride 1 mg oral tablet (20 sources) Sulfonylurea Start: 05-24-2024 End: 07-15-2024 Glimepiride 1 mg tablet Discontinued PO May 24, 2024 1:00am July 15, 2024 11:02am Start: 12-02-2023 take 1 tablet by ivan th once daily Glimepiride 2 mg tablet Active 2 mg PO daily December 02, 2023 12:00am Start: 06-14-2023 take 2 tablets by mo [facility] twice daily gliMEPIride 1 MG tablet Take 2 tablets by mouth 2 times daily. 06/14/2023 Active Start: 05-16-2023 End: 12-02-2023 take 2 tablets by mouth once daily Glimepiride 1 mg tablet Discontinued 2 mg PO DAILY May 16, 2023 2:06pm December 02, 2023 10:53am Start: 05-16-2023 take 2 mg by mouth once daily Glimepiride Active 2 MG PO DAILY May 16, 2023 2:06pm Start: 09-28-2019 End: 05-16-2023 take 1 tablet by mouth once daily Glimepiride 1 mg tablet Discontinued 1 mg PO DAILY September 28, 2019 12:00am May 16, 2023 2:07pm 12 hr guaiFENesin 1200 mg extended release oral tablet (20 sources) Start: 12-30-2019 End: 04-20-2020 take 1 tablet by mouth twice daily Guaifenesin 1,200 MG tablet Discontinued 1200 mg PO TWICE A DAY December 30, 2019 12:00am April 20, 2020 3:47pm linaclotide 0.145 mg oral capsule (1 source) Guanylate Cyclase-C Agonist End: 05-12-2024 Linaclotide (LINZESS) 145 MCG Cap capsule Take by mouth. 05/12/2024 Discontinued lisinopril 20 mg oral tablet (20 sources) Angiotensin Converting Enzyme Inhibitor Start: 03-25-2015 End: 09-08-2024 take 1 tablet by mouth once daily for hypertension Lisinopril 20 mg tablet Discontinued 0 .ROUTE .COMPLEX 90 July 15, 2023 9:11am July 15, 2024 11:06am TAKE 1 TABLET BY MOUTH DAILY FOR HIGH BLOOD PRESSURE meloxicam 10 mg oral capsule (1 source) Nonsteroidal Anti-inflammatory Drug End: 05-12-2024 Meloxicam 10 MG Cap Take by mouth. 05/12/2024 Discontinued metFORMIN hydrochloride 1000 mg oral tablet (20 sources) Biguanide Start: 01-29-2022 End: 12-02-2023 take 1 tablet by mouth twice daily Metformin 1,000 mg tablet Discontinued 1000 mg PO TWICE A DAY January 29, 2022 12:00am December 02, 2023 10:52am Start: 10-21-2018 End: 09-28-2019 Metformin 1,000 mg tablet Di scontinued PO 60 October 21, 2018 12:00am September 28, 2019 10:33am Start: 10-21-2018 End: 09-28-2019 Metformin Discontinued PO 60 30 October 21, 2018 12:00am September 28, 2019 10:33am metoprolol tartrate 100 mg oral tablet (20 sources) beta-Adrenergic Ruba Start: 11-08-2021 End: 05-04-2024 take 1 tablet by mouth twice daily Metoprolol Tartrate 100 mg tablet Discontinued 0 .ROUTE .COMPLEX 180 April 22, 2023 9:08am May 16, 2023 2:07pm TAKE 1 TABLET BY MOUTH TWICE DAILY Start: 10-25-2021 End: 11-08-2021 take 2 tablets by mouth twice daily Metoprolol Tartrate 50 mg tablet Discontinued 100 mg PO TWICE A DAY 180 October 25, 2021 2:57pm November 08, 2021 2:14pm Start: 10-25-2021 End: 11-08-2021 take 100 mg by mouth twice daily Metoprolol Tartrate Discontinued 100 MG PO TWICE A DAY 180 October 25, 2021 2:57pm November 08, 2021 2:14pm Start: 04-28-2021 End: 10-25-2021 Metoprolol Tartrate 50 mg ta blet Discontinued 75 mg PO TWICE A DAY 180 July 05, 2021 9:04am October 25, 2021 2:58pm Start: 05-30-2020 End: 04-28-2021 Metoprolol Tartrate 50 mg ta blet Discontinued 0 .ROUTE .COMPLEX 270 May 30, 2020 3:01pm April 28, 2021 3:53pm TAKE 1 AND 1/2 TABLETS BY MOUTH TWO TIMES DAILY Start: 05-30-2020 End: 04-28-2021 Metoprolol Tartrate Disconti nued 0 .ROUTE .COMPLEX 270 May 30, 2020 3:01pm April 28, 2021 3:53pm TAKE 1 AND 1/2 TABLETS BY MOUTH TWO TIMES DAILY Start: 07-16-2017 End: 05-30-2020 Metoprolol Tartrate 50 mg ta blet Discontinued 75 mg PO TWICE A DAY 270 June 23, 2019 10:05am December 29, 2019 8:39pm Start: 07-16-2017 End: 10-25-2021 take 75 mg by mouth twice daily Metoprolol Tartrate Di scontinued 75 MG PO TWICE A DAY 180 July 05 2022 9:04am October 25, 2021 2:58pm Start: 10-18-2013 End: 07-16-2017 take 3 tablets by mouth twice daily Metoprolol Tartrate 25 MG tablet Discontinued 75 mg PO TWICE A DAY October 18, 2013 12:00am July 16, 2017 2:53pm Start: 10-18-2013 End: 07-16-2017 take 75 mg by mouth twice daily Metoprolol Tartrate Di scontinued 75 MG PO TWICE A DAY October 18, 2013 12:00am July 16, 2017 2:53pm Start: 04-27-2013 take 1 tablet by ivan th twice daily METOPROLOL TARTRATE 25 MG TABS One tablet by mouth twice daily METOPROLOL TARTRATE [id number] Rylee Singh PA-C Start: 04-27-2013 take 1 tablet by ivan th twice daily METOPROLOL TARTRATE 100 MG TABS One tablet by mouth twice daily METOPROLOL TARTRATE [id number] Rylee Singh PA-C Start: 04-27-2013 METOPROLOL TAR TRATE 50 MG TABS One and one half tablet by mouth twice daily METOPROLOL TARTRATE [id number] Rylee Singh PA-C 24 hr mirabegron 25 mg extended release oral tablet (6 sources) beta3-Adrenergic Agonist Start: 05-16-2023 End: 12-02-2023 take 1 tablet by mouth once daily Mirabegron (Myrbetriq) 25 mg tablet extended release 24 hr Discontinued 25 mg PO DAILY May 16, 2023 1:00am December 02, 2023 10:53am MULTIPLE VITAMIN (8 sources) Start: 10-03-2015 take 1 tablet by mouth once daily MULTIVITAMINS TABS One tablet by mouth daily MULTIPLE VITAMIN Connor Acevedo MD Start: 10-03-2015 take 1 tablet by ivan th once daily MULTIVITAMINS TABS One tablet by mouth daily MULTIPLE VITAMIN Connor Acevedo MD Multivitamin 1 EACH tablet (3 sources) Start: 10-12-2016 End: 05-05-2018 Multivitamin 1 EACH tablet Discontinued 1 NMA PO DAILY October 12, 2016 12:00am May 05, 2018 2:35pm Multivitamin preparation (20 sources) Start: 10-12-2016 End: 05-05-2018 Multivitamin Discontinued 1 EACH PO DAILY October 12, 2016 2:21pm May 05, 2018 2:35pm Start: 10-12-2016 End: 05-05-2018 Multivitamin Discontinued 1 EACH PO DAILY October 11, 2016 11:00pm May 05, 2018 1:35pm Start: 10-12-2016 End: 05-05-2018 Multivitamin Discontinued 1 EACH PO DAILY October 12, 2016 12:00am May 05, 2018 2:35pm omeprazole 40 mg delayed release oral capsule (1 source) Proton Pump Inhibitor End: 05-12-2024 take 1 capsule by mouth once daily omeprazole [address] capsule Take 1 capsule by mouth daily. 05/12/2024 Discontinued (Therapy completed) ondansetron 4 mg disintegrating oral tablet (20 sources) Serotonin-3 Receptor Antagonist Start: 02-08-2019 End: 09-28-2019 take 1 tablet by mouth every eight hours as needed for nausea Ondansetron 4 MG tablet Discontinued 4 mg PO EVERY 8 HOURS NEEDED as needed for Nausea February 08, 2019 12:00am September 28, 2019 10:34am Start: 06-06-2018 End: 10-21-2018 take 1 tablet by mouth every eight hours as needed for nausea Ondansetron 4 MG tablet Discontinued 4 mg PO EVERY 8 HOURS NEEDED as needed for Nausea June 06, 2018 1:00am October 21, 2018 9:28am OXcarbazepine 150 mg oral tablet (18 sources) Anti-epileptic Agent Start: 04-16-2013 End: 05-12-2024 take 1 tablet by mouth at bedtime TRILEPTAL 150 MG TABS One tablet by mouth at bedtime. OXCARBAZEPINE [id number] Connor Acevedo MD oxyCODONE hydrochloride 5 mg oral tablet (20 sources) Opioid Agonist Start: 06-06-2018 End: 06-10-2018 take 1 tablet by mouth every six hours as needed for pain Oxycodone 5 MG tablet Discontinued 5 mg PO EVERY 6 HOURS NEEDED as needed for Pain 04 10June 06, 2018 1:00am June 09, 2018 1:00am June 10, 2018 1:09am 20 ml sodium chloride 9 mg/ml injection (1 source) Start: 08-25-2024 End: 08-25-2024 1-100 mL, Intravenous, ONCE NEEDED, 1 dose, Starting on Sat08/25/24 at 0939, Until Sat08/25/24 at 0940, Flush, MR Procedure solifenacin succinate 10 mg oral tablet (20 sources) Cholinergic Muscarinic Antagonist Start: 10-12-2016 End: 05-12-2024 take 1 tablet by mouth once daily Solifenacin 10 MG tablet Discontinued 10 mg PO DAILY October 12, 2016 12:00am September 28, 2019 10:35am testosterone cypionate 100 mg/ml injectable solution (20 sources) Androgen Start: 04-10-2013 End: 02-22-2014 DEPO-TESTOSTERONE 100 MG/ML SOLN Im every other week TESTOSTERONE CYPIONATE [id number] Rylee Singh PA-C Start: 04-10-2013 End: 02-22-2014 DEPO-TESTOSTERONE 100 MG/ML SOLN Im every other week TESTOSTERONE CYPIONATE [id number] Ericka Mcgill RN Start: 05-09-2005 TESTOSTERONE C YPIONATE 200 MG/ML IM OIL One ml/200mg IM every other week 0 05/09/2005 Active End: 08-25-2024 Testosterone Cypionate 100 M G/ML IM OIL Indications: Lumbar radiculopathy , Displacement of lumbar intervertebral disc without myelopathy , Acquired spondylolisthesis , Lumbar stenosis with neurogenic claudication , Back pain by Intramuscular route every 14 days. 08/25/2024 Discontinued CHOLECALCIFEROL TABS (16 sources) Start: 02-22-2014 End: 10-03-2015 VITAMIN D TABS D3 5000u jumana y CHOLECALCIFEROL TABS [id number] Connor Acevedo MD Start: 02-22-2014 VITAMIN D TABS D3 5000u daily CHOLECALCIFEROL TABS [id number] Rylee Singh PA-C Start: 02-22-2014 End: 10-03-2015 VITAMIN D TABS D3 5000u jumana y CHOLECALCIFEROL TABS [id number] Connor Acevedo MD Start: 02-22-2014 VITAMIN D TABS D3 5000u daily CHOLECALCIFEROL TABS [id number] Rylee Singh PA-C Problems Active Problems Problem Classification Problem Date Documented Da te Episodic/Chronic Abdominal pain (20 sources) Abdominal pain; Translations: [Unspecified abdominal pain] 02-09-2019 Episodic Cardiac dysrhythmias (20 sources) Sinus tachycardia; Translations: [Paroxysmal atrial fibrillation] Onset: 03-11-2015 Resolved: 10-19-2016 10-19-2016 Chronic Comment on above: 04/29 Loop recorder; Loop recorder removed 10/15/16; Cardiac dysrhythmias (20 sources) Sinus tachycardia; Translations: [Tachycardia, unspecified] Episodic Coronary atherosclerosis and other heart disease (20 sources) Atherosclerotic heart disease of [place] coronary artery without angina pectoris; Translations: [Angina pectoris] Onset: 04-16-2013 Resolved: 10-19-2016 10-19-2016 Chronic Diabetes mellitus with complications (20 sources) 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; Translations: [Diabetes mellitus due to underlying condition with diabetic autonomic (poly)neuropathy] Onset: 02-25-2024 07-25-2022 Chronic Diabetes mellitus without complication (9 sources) Diabetes mellitus; Translations: [Type 2 diabetes mellitus without complications] Onset: 05-05-2024 05-16-2023 Chronic Diabetes mellitus without complication (1 source) Impaired fasting glycemia; Translations: [Impaired fasting glucose] 12-26-2023 Episodic Disorders of lipid metabolism (20 sources) Hyperlipidemia; Translations: [Pure hypercholesterolemia] Onset: 04-10-2013 04-10-2013 Chronic Essential hypertension (20 sources) Hypertensive disorder; Translations: [Essential hypertension] Onset: 04-10-2013 04-10-2013 Chronic Hyperplasia of prostate (1 source) Benign prostatic hyperplasia with lower urinary tract symptoms; Translations: [Benign prostatic hyperplasia with lower urinary tract symptoms] Onset: 08-13-2024 Chronic Nonspecific chest pain (20 sources) Chest pain; Translations: [Chest pain, unspecified] Episodic Other and ill-defined heart disease (20 sources) Left ventricular hypertrophy; Translations: [Cardiomegaly] Onset: 04-10-2013 04-10-2013 Chronic Other and ill-defined heart disease (1 source) Cardiomegaly; Translations: [Cardiomegaly] Onset: 06-29-2024 Chronic Other circulatory disease (14 sources) Presence of other vascular implants and grafts; Translations: [Presence of other vascular implants and grafts] Onset: 07-13-2013 Resolved: 10-19-2016 07-13-2013 Chronic Other circulatory disease (6 sources) H/O: atrial fibrillation; Translations: [Personal history of other diseases of the circulatory system] 05-16-2023 Episodic Comment on above: 2011 Other circulatory disease (3 sources) History of hypotension; Translations: [Personal history of other diseases of the circulatory system] 11-06-2023 Episodic Other circulatory disease (3 sources) Low blood pressure; Translations: [Hypotension, unspecified] 11-06-2023 Episodic Other connective tissue disease (15 sources) Paraparesis; Translations: [Other symptoms and signs involving the musculoskeletal system] 07-25-2022 Episodic Other endocrine disorders (1 source) Adrenal cortical hypofunction; 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] Onset: 04-05-2005 12-26-2023 Chronic Other gastrointestinal disorders (20 sources) Diarrhea; Translations: [Diarrhea, unspecified] 02-09-2019 Episodic Other lower respiratory disease (1 source) Interstitial pulmonary disease, unspecified; Translations: [Interstitial pulmonary disease, unspecified] Onset: 09-23-2024 Chronic Other lower respiratory disease (20 sources) Dyspnea on exertion; Translations: [Other forms of dyspnea] 03-13-2022 Episodic Other lower respiratory disease (13 sources) Other forms of dyspnea; Translations: [Other respiratory abnormalities] Episodic Other lower respiratory disease (1 source) Chronic cough; Translations: [Chronic cough] Onset: 08-19-2024 Episodic Other nervous system disorders (11 sources) Polyneuropathy; Translations: [Polyneuropathy, unspecified] 11-30-2022 Chronic Other nervous system disorders (8 sources) Polyneuropathy, unspecified; Translations: [Unspecified hereditary and idiopathic peripheral neuropathy] Onset: 12-02-2023 11-29-2022 Chronic Other nervous system disorders (11 sources) Abnormal gait; Translations: [Unspecified abnormalities of gait and mobility] 11-30-2022 Episodic Other nervous system disorders (5 sources) Unspecified abnormalities of gait and mobility; Translations: [Abnormality of gait] 11-29-2022 Episodic Other nutritional; endocrine; and metabolic disorders (1 source) Body mass index (BMI) 37.0-37.9, adult; Translations: [Body mass index (BMI) 37.0-37.9, adult] Onset: 04-16-2013 04-10-2016 Chronic Other nutritional; endocrine; and metabolic disorders (7 sources) Obesity; Translations: [Obesity, unspecified] 05-16-2023 Chronic Other nutritional; endocrine; and metabolic disorders (2 sources) Obesity, unspecified; Translations: [Obesity, unspecified] Onset: 05-05-2024 05-16-2023 Chronic Other nutritional; endocrine; and metabolic disorders (5 sources) Obese class II; Translations: [Obesity, Class II, BMI 35-39.9] Onset: 08-27-2018 08-27-2018 Chronic Other upper respiratory infections (3 sources) Sinusitis; Translations: [Chronic sinusitis, unspecified] 06-01-2024 Chronic Peripheral and visceral atherosclerosis (20 sources) Intermittent claudication; Translations: [Peripheral vascular disease, unspecified] Onset: 08-21-2013 08-21-2013 Chronic Residual codes; unclassified (11 sources) History of operative procedure on lumbosacral spinal structure; Translations: [Other specified postprocedural states] 11-30-2022 Episodic Skin and subcutaneous tissue infections (4 sources) Cellulitis of face; Translations: [Cellulitis of face] 05-24-2024 Episodic Spondylosis; intervertebral disc disorders; other back problems (6 sources) Displacement of lumbar intervertebral disc without myelopathy; Translations: [Other intervertebral disc displacement, lumbar region] Onset: 07-03-2012 07-03-2012 Chronic Unclassified (20 sources) Body mass index (BMI) 36.0-36.9, adult; Translations: [Body mass index (BMI) 37.0-37.9, adult] Onset: 04-16-2013 10-03-2015 Chronic Unclassified (3 sources) Body mass index (BMI) 35.0-35.9, adult; Translations: [Body mass index (BMI) 37.0-37.9, adult] Onset: 04-16-2013 09-08-2014 Chronic Unclassified (5 sources) Placement of stent in coronary artery ; Translations: [Presence of cardiac and vascular implant and graft, unspecified] Onset: 05-21-2013 10-19-2016 Unclassified (8 sources) History of clinical finding in subject; Translations: [Personal history of other specified conditions] Onset: 04-10-2013 04-10-2013 Unclassified (1 source) Cough, unspecified; Translations: [Cough, unspecified] Onset: 10-06-2024 Unclassified (1 source) Low back pain, unspecified; Translations: [Low back pain, unspecified] Onset: 02-06-2024 Viral infection (20 sources) Disease caused by 2019-nCoV; Translations: [COVID-19] 12-29-2019 Episodic Past or Other Problems Problem Classification Problem Date Documented Date Episodic/Chronic Acquired foot deformities (17 sources) Foot-drop; Translations: [Foot drop, left foot] Onset: 03-21-2024 11-30-2022 Episodic Conditions associated with dizziness or vertigo (4 sources) Dizziness; Translations: [Dizziness and giddiness] Onset: 06-24-2024 05-31-2024 Episodic Coronary atherosclerosis and other heart disease (20 sources) Stented coronary artery; Translations: [Presence of coronary angioplasty implant and graft] Onset: 04-17-2013 Episodic Comment on above: PTCA with KEYANA of pro ximal 3rd marginal artery 04/30/13 Malaise and fatigue (20 sources) Fatigue; Translations: [Other fatigue] Onset: 04-10-2013 04-10-2013 Episodic Other acquired deformities (6 sources) Acquired spondylolisthesis; Translations: [Spondylolisthesis, site unspecified] Onset: 07-03-2012 07-03-2012 Episodic Other circulatory disease (3 sources) Personal history of other diseases of the circulatory system; Translations: [Personal history of other diseases of circulatory system] Onset: 12-02-2023 05-16-2023 Episodic Other circulatory disease (1 source) Hypotension, unspecified; Translations: [Hypotension, unspecified] Onset: 12-03-2023 Episodic Other connective tissue disease (1 source) Other specified soft tissue disorders; Translations: [Other specified soft tissue disorders] Onset: 06-25-2024 Episodic Other connective tissue disease (1 source) Other symptoms and signs involving the musculoskeletal system; Translations: [Other symptoms and signs involving the musculoskeletal system] Onset: 12-02-2023 Episodic Other lower respiratory disease (14 sources) Dyspnea; Translations: [Shortness of breath] Onset: 04-10-2013 Resolved: 10-19-2016 10-19-2016 Episodic Other lower respiratory disease (6 sources) Hypoxia; Translations: [Hypoxemia] Onset: 07-17-2012 Episodic Pleurisy; pneumothorax; pulmonary collapse (6 sources) Atelectasis; Translations: [Atelectasis] Onset: 07-17-2012 Episodic Spondylosis; intervertebral disc disorders; other back problems (20 sources) Lumbar radiculopathy; Translations: [Spinal stenosis of lumbar region] Onset: 07-03-2012 07-03-2012 Episodic Syncope (6 sources) Syncope; Translations: [Syncope and collapse] Onset: 04-21-2013 04-21-2013 Episodic Unclassified (7 sources) Percutaneous transluminal coronary angioplasty ; Translations: [Coronary angioplasty status] Onset: 05-21-2013 05-21-2013 Unclassified (2 sources) Onset: 05-12-2024 05-12-2024 Results Test Name Value Interpretation Reference Range Facility Basic Metabolic Profile (BMP )on 11-05-2024 BUN/CRE 15.6 RATIO Normal 10-20 [facility] Comment on above: Performed By: #### L 500.4100, L500.4050, L506.1000, [id number] #### [facility] [address] [place], [address] Calcium [Mass/Vol] 9.6 mg/dL Normal 7.6-11.0 [facility] Comment on above: Performed By: #### L 500.4100, [id number], L506.1000, [id number] #### [facility] [address] [place], [address] Chloride [Moles/Vol] 102 mmol/L Normal 98-108 [facility] Comment on above: Performed By: #### L 500.4100, [id number], L506.1000, [id number] #### [facility] [address] [place], [address] CO2 [Moles/Vol] 22.7 mmol/L Normal 21.0-32.0 [facility] Comment on above: Performed By: #### L 500.4100, [id number], L506.1000, [id number] #### [facility] [address] [place], [address] Creatinine [Mass/Vol] 1.08 mg/dL Normal 0.70-1.20 [facility] Comment on above: Performed By: #### L 500.4100, [id number], L506.1000, [id number] #### [facility] [address] [place], [address] GAP 11 Normal 5-15 [facility] Comment on above: Performed By: #### L 500.4100, [id number], L506.1000, [id number] #### [facility] [address] [place], [address] GFR/1.73 sq M.predicted among non-blacks MDRD (S/P/Bld) [Vol rate/Area] 72 mL/min/{1.73_m2} Normal >60 [facility] Comment on above: Result Comment: mL/m in/1.73m2 CKD-EPI Creatinine Equation (2020) Performed By: #### L 500.4100, [id number], L506.1000, [id number] #### [facility] [address] [place], [address] Glucose [Mass/Vol] 161 mg/dL High 70-99 [facility] Comment on above: Performed By: #### L 500.4100, [id number], L506.1000, [id number] #### [facility] [address] [place], [address] Potassium [Moles/Vol] 4.2 mmol/L Normal 3.3-5.1 [facility] Comment on above: Performed By: #### L 500.4100, [id number], L506.1000, [id number] #### [facility] [address] [place], [address] Sodium [Moles/Vol] 136 mmol/L Normal 133-145 [facility] Comment on above: Performed By: #### L 500.4100, [id number], L506.1000, [id number] #### [facility] [address] [place], [address] Urea nitrogen [Mass/Vol] 17 mg/dL Normal 4-19 [facility] Comment on above: Performed By: #### L 500.4100, [id number], L506.1000, [id number] #### [facility] [address] [place], [address] Anion gap in Serum or Plasma Ordered By: Griffin Saldivar on 11-04-2024 Anion gap [Moles/Vol] 11 mmol/L 5- [facility] BUN/creatinine ratioOrdered By: Griffin Saldivar on 11-04-2024 Urea nitrogen/Creatinine [Mass ratio] 15.6 mg/mg 10- [facility] Carbon dioxide, total [Moles /volume] in Central venous bloodOrdered By: Griffin Saldivar on 11-04-2024 CO2 [Moles/Vol] 22.7 mmol/L 21.0-32.0 [facility] Chloride assayOrdered By: Randell Saldivar on 11-04-2024 Chloride [Moles/Vol] 102 mmol/L 98-108 [facility] Glomerular filtration rate ( GFR) estimation/1.73 sq m using serum, plasma, or whole bOrdered By: Griffin Saldivar on 11-04-2024 GFR/1.73 sq M.predicted among non-blacks MDRD (S/P/Bld) [Vol rate/Area] 72 mL/min/{1.73_m2} >60 [facility] Comment on above: mL/min/1.73m2 CKD-EP I Creatinine Equation (2020) Potassium measurement (mass/ volume)Ordered By: Griffin Saldivar on 11-04-2024 Potassium (Unsp spec) [Mass/Vol] 4.2 mmol/L 3.3-5.1 [facility] Serum creatinine measurement (mass/volume)Ordered By: Griffin Saldivar on 11-04-2024 Creatinine [Mass/Vol] 1.08 mg/dL 0.70-1.20 [facility] Serum glucose measurement (m ass/volume)Ordered By: Griffin Saldivar on 11-04-2024 Glucose [Mass/Vol] 161 mg/dL High 70-99 [facility] Serum or plasma calcium meño urement (mass/volume)Ordered By: Griffin Saldivar on 11-04-2024 Calcium [Mass/Vol] 9.6 mg/dL 7.6-11.0 [facility] Serum or plasma urea nitroge n measurement (mass/volume)Ordered By: Griffin Saldivar on 11-04-2024 Urea nitrogen [Mass/Vol] 17 mg/dL 4-19 [facility] Sodium levelOrdered By: Bonita Saldivar on 11-04-2024 Sodium [Moles/Vol] 136 mmol/L 133-145 [facility] Acid Fast Bacillus Cultureon 10-03-2024 tAFBC TESTING PERFORMED AT [facility]. ORIGINAL REPORT ON FILE IN LAB CONTAINS ADDITIONAL TEST SITE INFORMATION. Culture, Acid Fast NO ACID-FAST BACILLI ISOLATED AFTER 6 WEEKS. Normal [facility] Comment on above: Performed By: #### L 500.4100, L500.4050, L506.1000, L501.9985 #### [facility] [place], [place], [address] Acid Fast Bacillus Smear/Flu oron 10-03-2024 tafb TESTING PERFORMED AT [facility]. ORIGINAL REPORT ON FILE IN LAB CONTAINS ADDITIONAL TEST SITE INFORMATION. Smear, Acid Fast Acid Fast Smear from Concentrated Specimen :Negative Normal [facility] Comment on above: Performed By: #### L 500.4100, L500.4050, L506.1000, L501.9985 #### [facility] [address] [place], [address] Body Fluid Cell Count+Diffon 09-14-2024 PATH COMM/BF Reviewed Normal [facility] Comment on above: Order Comment: The r eference range and other method performancespecifications have not been established for this bodyfluid. The test must be integrated into the clinicalcontext for interpretation.RLL Result Comment: THE SMEAR SHOWS MACROPHAGES AND LYMPHOCYTES IDENTIFICATION. A BAL SPECIMEN. Jese Perez MD 09/14/2024 AMENDED REPORT 09/14/24 1622 PATH COMM/BF previously reported as: May follow Performed By: #### L 500.4100, L500.4050, L506.1000, L501.9985 #### [facility] [address] [place], [address] L3410.9998on 09-09-2024 [facility] Normal . [facility] Comment on above: Order Comment: [id number] Result Comment: Test Ordered: 005622 Anti-U3 INSTRUMENT INSPECTOR (Fibrillarin)(RDL) Test(s) 197952-Kiup-E9 INSTRUMENT INSPECTOR (Fibrillarin)(RDL) was developed and its performance characteristics determined by [facility]. It has not been cleared or approved by the Food and Drug Administration. Anti-U3 INSTRUMENT INSPECTOR (Fibrillarin)(RDL) Negative ESECF Reference Range: Negative Performed at: [employer] [address] [place] [id number] Food Service: John Mae MD, Phone: [phone] Performed at: [address] [id number] Food Service: Petr Arzola PhD, Phone: [phone] Performed By: #### L 3410.9998 ####[facility] [address] [place], [address] L3410.9998on 09-03-2024 [facility]. COMMENT Normal . [facility] Comment on above: Order Comment: [id number] [id number] Result Comment: Test Ordered: 126593 Anti-Synthetase Profile (RDL) Test(s) 561931-Zeyf-RT-1 Ab (RDL); 076589- Anti-PL-12 Ab (RDL); 390067-Rnzm-NR Ab (RDL); 568103- Anti-OJ Ab (RDL) was developed and its performance characteristics determined by [employer]. It has not been cleared or approved by the Food and Drug Administration. Anti-Susannah-1 Ab (RDL) <20 Units ESECF Reference Range: <20 Anti-PL-7 Ab (RDL) Negative ESECF Reference Range: Negative Anti-PL-12 Ab (RDL) Negative ESECF Reference Range: Negative Anti-EJ Ab (RDL) Negative ESECF Reference Range: Negative Anti-OJ Ab (RDL) Negative ESECF Reference Range: Negative Interpretation for Anti-Susannah-1: Negative: <20 Weak Positive: 20 - 39 Moderate Positive: 40 - 80 Strong Positive: >80 Given overlapping phenotypes, autoantibody positivity should be interpreted in the context of clinical and other laboratory findings. Performed at: [employer] [facility] [employer] [address] [place] [id number] Food Service: John Mae MD, Phone: [phone] Performed at: [facility] [address] [place], [place] [id number] Food Service: Petr Arzola PhD, Phone: [phone] Performed By: #### L 3300.1200, L4600.0100, L3410.9998, L3100.6900, L501.6710, L3100.9100, L3100.5500, L803.2200 ####[facility] [address] [place], [place], [id number] MRI ANGIO SPINEon 09-02-2024 MRI ANGIO SPINE EXAM: MRI ANGIO SPIN E, 08/25/2024 11:01 AM CLINICAL INDICATIONS: Eval for dAVF M54.16:Lumbar radiculopathy COMPARISON: No priors available for comparison. TECHNIQUE: Axial and sagittal MR images of the lumbar spine were acquired prior to and following IV administration of gadolinium-based contrast using a spine MRA protocol. Contrast: Gadopiclenol SOLN 1-25 mL Dose: 10 mL FINDINGS: Please refer to the MRI lumbar spine without contrast report for nonvascular findings in the lumbar spine. This spinal angiographic MRI study shows no evidence of a dural arteriovenous fistula or other significant vascular abnormality within the lumbar spine. In the lower lumbar spine, assessment is moderately to severely suboptimal due to artifact from hardware. IMPRESSION: No significant vascular abnormality within the lumbar spine. Normal [facility] CYTOLOGY, NON-GYNon 09-02-19 25 CYTOLOGIC DIAGNOSIS Normal [facility] Comment on above: Result Comment: A. 2 ND OPINION CONSULTATION, CYTOLOGY - Right Lower Lobe Lung Fluid, Bronchoalveolar Lavage ( Collected 08/19/2024): FINAL DIAGNOSIS: No Malignant Cells Are Identified at 1339 EDT Performed By: #### N ONGNNONFNA #### [facility] ([facility]) [address] [place] [address] Case Report Normal [facility] Comment on above: Result Comment: [facility] Cytology Report Case: [id number] Authorizing Provider: Dejah Brennan MD Collected: 09/01/2024 08:20 AM Ordering Location: [facility] Received: 09/01/2024 08:15 AM [facility] Specimen: BRONCHOALVEOLAR LAVAGE, Right Lower Lobe Lung Fluid, Bronchoalveolar Lavage ( Collected 08/19/2024) Performed By: #### N ONKENRICKFNA #### [facility] (DEFAULT) [address] [place] [address] Gross Description Normal [facility] Comment on above: Result Comment: Subm itted from [facility], [address] [place] [address] are four (4) slides labeled [id number]. An identifying pathology report is included. Outside slides are returned in sixty (60) days under separate cover with our number recorded on them. Performed By: #### N CLARENCE #### [facility] (DEFAULT) [address] [place] [address] Professional Interpretation Performed at: Normal [facility] Comment on above: Result Comment: For Immediate Release to Patient's MyChart? Yes [facility] [address] [place] [address] Performed By: #### N CLARENCE #### [facility] (DEFAULT) [address] [place] [address] MRI SPINE LUMBAR WITHOUT CON TRASTon 09-01-2024 MRI SPINE LUMBAR WITHOUT CONTRAST EXAM: MRI SPINE LUMBAR WITHOUT CONTRAST, 08/25/2024 10:59 AM COMPARISON: Lumbar spine MRI (outside image) August 11, 2018 CLINICAL INDICATIONS: 74 years Male spinal stenosis RELEVANT CLINICAL HISTORY: M54.16:Lumbar radiculopathy TECHNIQUE: A series of sagittal and axial multisequence images of the lumbar spine were obtained without intravenous contrast using standard protocol. Study was performed at 1.5 Gina. FINDINGS: Grade 1 anterolisthesis of L5 on S1. Status post laminectomy and posterior fusion from L3-S1. Alignment is otherwise intact. Vertebral bodies are within normal limits in height and marrow signal. Paraspinal soft tissues are within normal limits. Multilevel degenerative changes of the intervertebral discs with evidence of disc height loss and disc desiccation. Conus and cauda equina are within normal limits in signal and position. By levels: L1-L2: Minor disc bulge and mild bilateral facet arthropathy. No significant spinal canal stenosis. Mild right and moderate left neural foraminal narrowing. L2-L3: Disc bulge and endplate osteophyte formation. No significant spinal canal stenosis. Severe bilateral neural foraminal narrowing. L3-L4: No significant spinal canal stenosis. No significant neural foraminal narrowing. L4-L5: No significant spinal canal stenosis. No significant neural foraminal narrowing. L5-S1: Grade 1 anterolisthesis of L5 on S1. No significant spinal canal stenosis. Severe left-sided neural foraminal narrowing. IMPRESSION: 1. No significant interval change. 2. Postsurgical changes from prior laminectomy and posterior fusion from L3-S1. No significant spinal canal stenosis. 3. Severe neural foraminal narrowing bilaterally at L2-L3 and on the left at L5-S1. Normal [facility] SURG PATH REQUESTon 09-01-19 Case Report Normal [facility] Comment on above: Result Comment: Surg ical Pathology Report Case: [id number] Authorizing Provider: Dejah Brennan MD Collected: 08/31/2024 10:54 AM Ordering Location: [facility] Received: 08/31/2024 10:38 AM [facility] Pathologist: Perez Burciaga MD Specimen: SURG PATH, Lung, right lower lobe, endobronchial biopsy Performed By: #### S URGP #### [facility] (DEFAULT) [address] [place] [address] Clinical History Normal [facility] Comment on above: Result Comment: Rece ived is a request for a second opinion consultation by Dejah Brennan MD at [facility]: 74 M Be with increasing symptoms > 1 year. Clinician considered hypersensitivity pneumonitis but CT ? UIPF classic. Pt has past exposure nos. He is SOB . Ground glass & reticular pattern. Clinical History: BAL with 77% lymphocytes. Pt on Humira for psoriatic arthritis. Inflammatory panel neg. R/O drug- induced pneumonitis. 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 Performed By: #### S URGP #### [facility] (DEFAULT) [address] [address] Diagnosis Comments Normal [facility] Comment on above: Result Comment: The diagnosis is supported on immunostains for CD45 and CD68; the metaplastic epithelium with preserved bi-layered architecture is highlighted on immunostains for CK7, p40, NapsinA and TTF1. No granulomas are identified on this material. The observed histological findings are limited and not specific. While the peribronchiolar metaplasia have been linked with inhalational type of injury (including hypersensitivity pneumonitis), drug induced pneumonitis cannot be completely excluded. Clinical radiological pathological correlation is recommended. Performed By: #### S URGP #### [facility] (DEFAULT) [address] [place] [address] Gross Description Normal [facility] Comment on above: Result Comment: The following material(s) are received from [facility], [address] [place] [address], with an identifying surgical pathology report as well as a Cytology case included for review ([id number]): 1 H&E slide(s) and 2 non-H&E slide(s), labeled [id number] . Outside materials are returned in sixty (60) days under separate cover with our number recorded on them. Grosser for this case was: Lynn Apple Performed By: #### S URGP #### [facility] (DEFAULT) [address] [place] [address] [facility] Comment on above: Result Comment: A mi croscopic examination was performed. All controls show appropriate reactivity. All immunohistochemistry (IHC), in situ hybridization (LIBBY), and histochemical tests were developed by and are performed at the [facility] Clinical Laboratory, Histology and IHC Lab, [address] [place] [address]. All Immunofluorescent (IF) tests were developed by and are performed at the [facility], Renal Division, [address] [place] [address]. All tests reported here, except for PD-L1, have not been cleared by or approved by the US Food and Drug Administration (FDA). The laboratory is regulated under CLIA as qualified to perform high-complexity testing. The tests are used for clinical purposes. They should not be regarded as investigational or for research. Performed By: #### S URGP #### [facility] (DEFAULT) [address] [place] [address] Pathologic Diagnosis Normal [facility] Comment on above: Result Comment: Outs rob Slides: [id number] (08/19/24) A. Lung, right lower lobe, endobronchial biopsy: Fragments of benign lung tissue with peribronchiolar metaplasia. Patchy chronic lymphoplasmacytic inflammation. at 1139 EDT Performed By: #### S URGP #### [facility] (DEFAULT) [address] [place] [address] Professional Interpretation Performed at: [facility] Comment on above: Result Comment: [facility] For Immediate Release to Patient's [facility]? Yes [address] [place] [address] Performed By: #### S URGP #### [facility] (DEFAULT) [address] [place] [address] Anion gap in Serum or Plasma Ordered By: Griffin Saldivar on 08-26-2024 Anion gap [Moles/Vol] 12 mmol/L 5-15 [facility] BUN/creatinine ratioOrdered By: Griffin Saldivar on 08-26-2024 Urea nitrogen/Creatinine [Mass ratio] 12.4 mg/mg 10-20 [facility] Bilirubin, totalOrdered By: Griffin Saldivar on 08-26-2024 Bilirubin [Mass/Vol] 0.46 mg/dL 0.00-1.30 [facility] Carbon dioxide, total [Moles /volume] in Central venous bloodOrdered By: Griffin Saldivar on 08-26-2024 CO2 [Moles/Vol] 21.5 mmol/L 21.0-32.0 [facility] Chloride assayOrdered By: Randell Saldivar on 08-26-2024 Chloride [Moles/Vol] 102 mmol/L 98-108 [facility] Comprehensive Metabolic Prof ilon 08-26-2024 Albumin [Mass/Vol] 3.8 g/dL Normal 3.4-4.8 [facility] Comment on above: Performed By: #### L 500.4050, L501.9520, L501.9985 ####[facility] [address] [place], [address] Albumin/Globulin [Mass ratio] 1.1 {ratio} Normal 0.9-2.4 [facility] Comment on above: Performed By: #### L 500.4050, L501.9520, L501.9985 ####[facility] [address] [place], [address] ALK PHOS 69 U/L Normal 40-129 [facility] Comment on above: Performed By: #### L 500.4050, L501.9520, L501.9985 ####[facility] [address] [place], [address] ALT [Catalytic activity/Vol] 21 U/L Normal <=46 [facility] Comment on above: Performed By: #### L 500.4050, L501.9520, L501.9985 ####[facility] [address] [place], [address] AST [Catalytic activity/Vol] 30 U/L Normal <=37 [facility] Comment on above: Performed By: #### L 500.4050, L501.9520, L501.9985 ####[facility] [address] [place], [address] Bilirubin [Mass/Vol] 0.46 mg/dL Normal 0.00-1.30 [facility] Comment on above: Performed By: #### L 500.4050, L501.9520, L501.9985 ####[facility] [address] [place], [address] BUN/CRE 12.4 RATIO Normal 10-20 [facility] Comment on above: Performed By: #### L 500.4050, L501.9520, L501.9985 ####[facility] [address] [place], [address] Calcium [Mass/Vol] 9.5 mg/dL Normal 7.6-11.0 [facility] Comment on above: Performed By: #### L 500.4050, L501.9520, L501.9985 ####[facility] [address] [place], [address] Chloride [Moles/Vol] 102 mmol/L Normal 98-108 [facility] Comment on above: Performed By: #### L 500.4050, L501.9520, L501.9985 ####[facility] [address] [place], [address] CO2 [Moles/Vol] 21.5 mmol/L Normal 21.0-32.0 [facility] Comment on above: Performed By: #### L 500.4050, L501.9520, L501.9985 ####[facility] [address] [place], [address] Creatinine [Mass/Vol] 1.33 mg/dL High 0.70-1.20 [facility] Comment on above: Performed By: #### L 500.4050, L501.9520, L501.9985 ####[facility] [address] [place], [address] GAP 12 Normal 5-15 [facility] Comment on above: Performed By: #### L 500.4050, L501.9520, L501.9985 ####[facility] [address] [place], [address] GFR/1.73 sq M.predicted among non-blacks MDRD (S/P/Bld) [Vol rate/Area] 56 mL/min/{1.73_m2} Low >60 [facility] Comment on above: Result Comment: mL/m in/1.73m2 CKD-EPI Creatinine Equation (2020) Performed By: #### L 500.4050, L501.9520, L501.9985 ####[facility] [address] [place], [address] Globulin (S) [Mass/Vol] 3.4 g/dL Normal 2.2-4.2 [facility] Comment on above: Performed By: #### L 500.4050, L501.9520, L501.9985 ####[facility] [address] [place], [address] Glucose [Mass/Vol] 303 mg/dL High 70-99 [facility] Comment on above: Performed By: #### L 500.4050, L501.9520, L501.9985 ####[facility] [address] [place], [address] Potassium [Moles/Vol] 4.1 mmol/L Normal 3.3-5.1 [facility] Comment on above: Performed By: #### L 500.4050, L501.9520, L501.9985 ####[facility] [address] [place], [address] Sodium [Moles/Vol] 136 mmol/L Normal 133-145 [facility] Comment on above: Performed By: #### L 500.4050, L501.9520, L501.9985 ####[facility] [address] [place], [address] T PROT 7.2 g/dL Normal 5.9-8.4 [facility] Comment on above: Performed By: #### L 500.4050, L501.9520, L501.9985 ####[facility] [address] [place], [place], [id number] Urea nitrogen [Mass/Vol] 17 mg/dL Normal 4-19 [facility] Comment on above: Performed By: #### L 500.4050, L501.9520, L501.9985 ####[facility] [address] [place], [place], [id number] GFR/1.73 sq M.predicted jose g non-blacks MDRD (S/P/Bld) [Vol rate/Area]Ordered By: Griffin Saldivar on 08-26-2024 Estimated GFR (MDRD) Non-Af Amer 56 Low >60 [facility] Comment on above: mL/min/1.73m2 CKD-EP I Creatinine Equation (2020) Glomerular filtration rate ( GFR) estimation/1.73 sq m using serum, plasma, or whole bOrdered By: Griffin Saldivar on 08-26-2024 GFR/1.73 sq M.predicted among non-blacks MDRD (S/P/Bld) [Vol rate/Area] 56 mL/min/{1.73_m2} Low >60 [facility] Comment on above: mL/min/1.73m2 CKD-EP I Creatinine Equation (2020) Hemoglobin A1con 08-26-2024 HbA1c (Bld) [Mass fraction] 8.2 % Normal <=5.6 [facility] Comment on above: Performed By: #### L 500.4050, L501.9520, L501.9985 ####[facility] [address] [place], [place], [id number] Hemoglobin A1c percentageOrd ered By: Griffin Saldivar on 08-26-2024 HbA1c (Bld) [Mass fraction] 8.2 % >5.7 [facility] - Chemistry and C hemistry - challengeOrdered By: Griffin Saldivar on 08-26-2024 AST [Catalytic activity/Vol] 30 U/L <38 [facility] Potassium (Unsp spec) [Mass/ Vol]Ordered By: Griffin Saldivar on 08-26-2024 Potassium [Moles/Vol] 4.1 mmol/L 3.3-5.1 [facility] Potassium measurement (mass/ volume)Ordered By: Griffin Saldivar on 08-26-2024 Potassium (Unsp spec) [Mass/Vol] 4.1 mmol/L 3.3-5.1 [facility] Serum creatinine measurement (mass/volume)Ordered By: Griffin Saldivar on 08-26-2024 Creatinine [Mass/Vol] 1.33 mg/dL High 0.70-1.20 [facility] Serum globulin measurementOr dered By: Griffin Saldivar on 08-26-2024 Globulin (S) [Mass/Vol] 3.4 g/dL 2.2-4.2 [facility] Serum glucose measurement (m ass/volume)Ordered By: Griffin Saldivar on 08-26-2024 Glucose [Mass/Vol] 303 mg/dL High 70-99 [facility] Serum or plasma alanine gandhi otransferase (ALT) measurementOrdered By: Griffin Saldivar on 08-26-2024 ALT [Catalytic activity/Vol] 21 U/L <47 [facility] Serum or plasma albumin meño urement (mass/volume)Ordered By: Griffin Saldivar on 08-26-2024 Albumin [Mass/Vol] 3.8 g/dL 3.4-4.8 [facility] Serum or plasma albumin/glob ulin mass ratioOrdered By: Griffin Saldivar on 08-26-2024 Albumin/Globulin [Mass ratio] 1.1 {ratio} 0.9-2.4 [facility] Serum or plasma alkaline adam sphatase measurementOrdered By: Griffin Saldivar on 08-26-2024 ALP [Catalytic activity/Vol] 69 U/L 40-129 [facility] Serum or plasma calcium meño urement (mass/volume)Ordered By: Griffin Saldivar on 08-26-2024 Calcium [Mass/Vol] 9.5 mg/dL 7.6-11.0 [facility] Serum or plasma urea nitroge n measurement (mass/volume)Ordered By: Griffin Saldivar on 08-26-2024 Urea nitrogen [Mass/Vol] 17 mg/dL 4-19 [facility] Sodium levelOrdered By: Bonita Saldivar on 08-26-2024 Sodium [Moles/Vol] 136 mmol/L 133-145 [facility] TSH DL <= 0.005 mIU/L QnOrde red By: Griffin Saldivar on 08-26-2024 Thyroid Stimulating Hormone (TSH) 1.510 uIU/mL 0.300-4.20 0 [facility] TSH Qn 1.510 uIU/mL 0.300-4.20 0 [facility] Thyroid Stim Hormone (TSH)on 08-26-2024 TSH 1.510 uIU/mL Normal 0.300-4.20 0 [facility] Comment on above: Performed By: #### L 500.4050, L501.9520, L501.9985 ####[facility] [address] [place], [address] Total proteinOrdered By: Adrian Saldivar on 08-26-2024 Protein [Mass/Vol] 7.2 g/dL 5.9-8.4 [facility] Acid fast bacillus (AFB) cul tureOrdered By: Octavio Rasmussen on 08-20-2024 Mycobacterium sp identified Org specific cx Nom (Unsp spec) [facility] Appearance (Body fld)Ordered By: Octavio Rasmussen on 08-20-2024 Body Fluid Appearance SL [facility] Body fluid appearance (nomin al result)Ordered By: Octavio Rasmussen on 08-20-2024 Appearance (Body fld) SL [facility] Body fluid color determinati onOrdered By: Octavio Rasmussen on 08-20-2024 Color (Body fld) RED [facility] Body fluid erythrocytes coun t (number/volume)Ordered By: Octavio Rasmussen on 08-20-2024 RBC (Body fld) [#/Vol] 37 10*3/uL [facility] Body fluid leukocytes count (number/volume)Ordered By: Octavio Rasmussen on 08-20-2024 WBC (Body fld) [#/Vol] 0.469 10*3/uL [facility] Body fluid lymphocytes/100 l eukocytesOrdered By: Octavio Rasmussen on 08-20-2024 Lymphocytes/100 WBC (Body fld) 77 % [facility] Body fluid macrophage countO rdered By: Octavio Rasmussen on 08-20-2024 Macrophages (Body fld) [#/Vol] 18 % [facility] Body fluid mononuclear cell countOrdered By: Octavio Rasmussen on 08-20-2024 Body Fluid Mononuclear WBCs 0.397 10^3/uL [facility] Body fluid mononuclear cell percentageOrdered By: Octavio Rasmussen on 08-20-2024 Mononuclear cells/100 WBC (Body fld) 84.6 % [facility] Body fluid other cell count as percentage of leukocytesOrdered By: Octavio Rasmussen on 08-20-2024 Other cells/100 WBC (Body fld) 3 % [facility] Body fluid segmented neutrop hils count (number/volume)Ordered By: Octavio Rasmussen on 08-20-2024 Segmented neutrophils (Body fld) [#/Vol] 2 % [facility] Body fluid total cell countO rdered By: Octavio Rasmussen on 08-20-2024 Cells Counted Total (Body fld) [#] 0.540 10^3/ul [facility] Comment on above: This is the Total Nu mber of Nucleated Cell Types in the Body Fluid. Cells Counted Total (Body fl d) [#]Ordered By: Octavio Rasmussen on 08-20-2024 Body Fluid Total Cells Counted 0.540 10^3/ul [facility] Comment on above: This is the Total Nu mber of Nucleated Cell Types in the Body Fluid. Color (Body fld)Ordered By: Octavio Rasmussen on 08-20-2024 Body Fluid Color RED [facility] Cytology report Cyto stain D oc (Body fld)Ordered By: Octavio Rasmussen on 08-20-2024 Miscellaneous Cytology SEE PATHOLOGY REPORT [facility] Comment on above: Specimen submitted t o Anatomical Pathology Department for testing. Cytology report of Body flui d Cyto stainOrdered By: Octavio Rasmussen on 08-20-2024 Cytology report Cyto stain Doc (Body fld) SEE PATHOLOGY REPORT [facility] Comment on above: Specimen submitted t o Anatomical Pathology Department for testing. Cytology, Body Fluid / CSFon 08-20-2024 CYTOLOGY,BF/CSF SEE PATHOLOGY REPORT Normal [facility] Comment on above: Order Comment: RLL Result Comment: Spec imen submitted to Anatomical Pathology Department for testing. Performed By: #### L 500.4100, L500.4050, L506.1000, L501.9985 #### [facility] [address] [place], [address] Lymphocytes/100 WBC (Body fl d)Ordered By: Octavio Rasmussen on 08-20-2024 Body Fluid Lymphocytes 77 % [facility] Macrophages (Body fld) [#/Vo l]Ordered By: Octavio Rasmussen on 08-20-2024 Body Fluid Macrophages 18 % [facility] Mononuclear cells/100 WBC (B darryl fld)Ordered By: Octavio Rasmussen on 08-20-2024 Body Fluid Mononuclear WBCs (%) 84.6 % [facility] No Panel InformationOrdered By: Octavio Rasmussen on 08-20-2024 Body Fluid Comment 2 Not Reportable [facility] Other cells/100 WBC (Body fl d)Ordered By: Octavio Rasmussen on 08-20-2024 Body Fluid Other Cells 3 % [facility] Pathologist interpretation ( Body fld) [Interp]Ordered By: Octavio Rasmussen on 08-20-2024 Body Fluid Pathologist Comment May follow [facility] Pathologist interpretation o f Body fluid testsOrdered By: Octavio Rasmussen on 08-20-2024 Pathologist interpretation (Body fld) [Interp] Reviewed [facility] Comment on above: Previous reported re sult: May follow Edited by: JAMIE on 09/14/24:1622THE SMEAR SHOWS MACROPHAGES AND LYMPHOCYTES IDENTIFICATION. A BAL SPECIMEN.Jese Perez MD 09/14/2024 AMENDED REPORT 09/14/24 1622 PATH COMM/BF previously reported as: May follow Polymorphonuclear (PMN) leuk ocyte countOrdered By: Octavio Rasmussen on 08-20-2024 Body Fluid Polynuclear WBCs (%) 15.4 % [facility] Polymorphonuclear cells (Bod y fld) [#/Vol]Ordered By: Octavio Rasmussen on 08-20-2024 Body Fluid Polynuclear WBCs (#) 0.072 10^3/uL [facility] RBC (Body fld) [#/Vol]Ordere d By: Octavio Rasmussen on 08-20-2024 Body Fluid RBC 0.037 10^6/ul [facility] Segmented neutrophils (Body fld) [#/Vol]Ordered By: Octavio Rasmussen on 08-20-2024 Body Fluid Neutrophils 2 % [facility] Specimen source Nom (Body fl d)Ordered By: Octavio Rasmussen on 08-20-2024 Body Fluid Source BRONCHIAL LAVAGE [facility] Specimen source identificati on of body fluidOrdered By: Octavio Rasmussen on 08-20-2024 Specimen source Nom (Body fld) BRONCHIAL LAVAGE [facility] WBC (Body fld) [#/Vol]Ordere d By: Octavio Rasmussen on 08-20-2024 Body Fluid WBC 0.469 10^3/uL [facility] Bedside Glucoseon 08-19-2024 FINGERSTICK GLU 184 mg/dL High 74-106 [facility] Comment on above: Result Comment: HELDER ADKINS OF PATIENT CARE PER NURSING PROTOCOL Performed By: #### L 501.080 #### [facility] [address] [facility] [place], [address] Bronchoscopy Reporton 2024 Bronchoscopy Report [facility] Medical Records Department [address] [place] [address] Bronchoscopy Report MR#: [id number] Acct: [id number] Name: GRACIE LEMONS Rep #: [id number] : 1950 74 From: Octavio Rasmussen MD PCP: Dr. Connor Kohli MD Status:[facility] Patient Name: Gracie Lemons Procedure Date: 08/19/2024 2:08 PM Date of : 1950 Age: 74 Procedure: Bronchoscopy Indications: Interstitial lung disease Providers: Octavio Rasmussen MD Referring MD: Connor Kohli MD Medicines: Lidocaine applied to nares and subglottic space Complications: No immediate complications Procedure: Pre-Anesthesia Assessment: - A History and Physical has been performed. The patient's medications, allergies and sensitivities have been reviewed. After I obtained informed consent, the scope was passed under direct vision. Throughout the procedure, the patient's blood pressure, pulse, and oxygen saturations were monitored continuously. The bronchoscope was introduced through the left nostril and advanced to the tracheobronchial tree of both lungs. The procedure was accomplished without difficulty. The patient tolerated the procedure well. The total duration of the procedure was 30 minutes. Moderate Sedation: An independent trained observer was present and continuously monitored the patient. Findings: The nasopharynx/oropharynx appears normal. The larynx appears normal. The vocal cords appear normal. The subglottic space is normal. The trachea is of normal caliber. The yeison is sharp. The tracheobronchial tree was examined to at least the first subsegmental level. Bronchial mucosa and anatomy are normal; there are no endobronchial lesions, and no secretions. Transbronchial biopsies of an area of infiltration were performed in the posterior basal segment of the right lower lobe using forceps and sent for cell count, bacterial culture, viral smears culture, and fungal AFB analysis and cytology. The procedure was guided by fluoroscopy. Biopsy of lung tissue was obtained. Six biopsy passes were performed. Six biopsy samples were obtained. The bronchoscope was advanced until wedged at the desired location for bronchoalveolar lavage. BAL was performed [Site] and sent for cell count, bacterial culture, viral smears culture, and fungal AFB analysis and cytology, cell count and differential and bacterial, AFB and fungal analysis. [Instilled volume]. [return volume]. [return description]. [Plugs present]. [Multi samples]. Trachea/Yeison Abnormalities: Partially obstructing (about 80% obstructed) bronchomalacia was found throughout the tracheobronchial tree. Impression: - Interstitial lung disease - The airway examination was normal. - Transbronchial lung biopsies were performed. - Bronchoalveolar lavage was performed. Recommendation: - Await test results. MD Octavio Baumann MD 08/19/2024 3:06:59 PM This report has been signed electronically. Number of Addenda: 0 Note Initiated On: 08/19/2024 2:08 PM 08/19/24 1507 Date Octavio Rasmussen MD Cosigner Signature: Date (if indicated) CC: Dr. Connor Kohli MD; Dr. Octavio Rasmussen MD Date Dictated: 08/19/24 1408 Date Transcribed: Gear Roller: RVS Signed Normal [facility] Chest 1 View (Portable)on Chest 1 View (Portable) [facility] Imaging Services [address] [place] [address] Chest 1 View (Portable) MR#: [id number] Acct: [id number] Name: GRACIE LEMONS Rep #: [id number] : 1950 M 74 From: Clark Jacobs PCP: Dr. Connor Kohli MD Status: [facility] Study: Chest 1 View (Portable) Date of Exam: 08/19/24 Exam# [id number] Ordering Dr: Octavio Rasmussen MD PROCEDURE: CHEST 1 VIEW (PORTABLE) REASON FOR EXAM: Status post bronchoscopy. TECHNIQUE: Frontal view of the chest. COMPARISON: Chest x-ray 05/22/2024. RAD/Chest 1 View (Portable) IMPRESSION: The examination is limited by AP portable technique, hypoinflation, and patient motion. No pneumothorax is seen. Minimal right and jpsv-gz-jkooedia left basilar atelectasis is seen No pleural effusion is noted. The cardiomediastinal silhouette is stable, without evidence of cardiomegaly. Reading Location: [address] CC: Dr. Connor Kohli MD; Dr. Octavio Rasmussen MD Gear Roller: Signed Normal [facility] Glucose [facility] at [facility] deOrdered By: Octavio Rasmussen on 08-19-2024 Bedside Glucose (Misc Panel) 184 mg/dL High 74-106 [facility] Comment on above: MANAGEMENT OF PATIEN T CARE PER NURSING PROTOCOL Glucose [Mass/Vol] 184 mg/dL High 74-106 [facility] Comment on above: MANAGEMENT OF PATIEN T CARE PER NURSING PROTOCOL MR/POSTOP.ANEon 08-19-2024 MR/POSTOP.ANE [facility] Medical Records Department [address] [place] [address] Anesthesia Postop Eval I 08/19/24 1504 MR#: [id number] Acct: [id number] Name: GRACIE LEMONS Rep #: [id number] : 1950 74 From: Bonny Flowers PCP: Dr. Connor Kohli MD Status:[facility] [place] [place] Y Race: C Location: [place] [address] Anesthesia: Postop Eval I Current Vital Signs Temperature: 97.4 F Pulse Rate: 72 Blood Pressure: 110/98 Respiratory Rate: 18 Pulse Ox: 93 Assessment Airway patent: Yes Spontaneous unlabored respirations: Yes nausea: No Vomiting: No Anesthesia Complication: No Fluid Hydration Crystalloid volume administer (ml): 0 Total IV fluid infused: 0 Progress Note Anesthesia document: Postop Eval 1 completed: Yes 08/19/24 1506 Date Bonny Lunsford Signature: Date CC: Signed Normal [facility] MR/[id number] 08-19-2024 [facility] Medical Records Department [address] [place] [id number] Anesthesia Postop Eval II 08/19/24 1534 MR#: [id number] Acct: [id number] Name: GRACIE LEMONS Rep #: [id number] : 1950 74 From: Ralph Zavala MD PCP: Dr. Connor Kohli MD Status:[facility] [place] [place] Y Race: C Location: [place] [address] Anesthesia Postop Eval I Sum Postop Eval Completion status Anesthesia document: Postop Eval 1 completed: Yes Anesthesia Postop Eval I Summary Anesthesia Postop Eval I Summary: Anesthesia Postop Eval I: Assessment Summary Airway patent Yes 08/19/24 15:04 DRILLING MACHINE OPERATOR.CSIR Spontaneous unlabored Yes 08/19/24 15:04 DRILLING MACHINE OPERATOR.CSIR respirations Mental status nausea No 08/19/24 15:04 DRILLING MACHINE OPERATOR.CSIR Vomiting No 08/19/24 15:04 DRILLING MACHINE OPERATOR.CSIR Anesthesia Postop Eval I: Fluid Summary Crystalloid volume administer 0 08/19/24 15:04 DRILLING MACHINE OPERATOR.CSIR (ml) Colloids volume administered ( ml) Blood Product volume administered (ml) Total IV fluid infused 0 08/19/24 15:04 DRILLING MACHINE OPERATOR.CSIR Anesthesia Postop Eval I: Summary Notes Anesthesia Complication No 08/19/24 15:04 DRILLING MACHINE OPERATOR.CSIR Anesthesia Complication Comment: Post-operative progress note Anesthesia: Postop Eval II Evaluation Mental status: Awake Pain Level: 0 nausea: No Vomiting: No 08/19/24 1534 Date Ralph Lunsford Signature: Date CC: Signed Normal [facility] Special Stain Group IIon Special Stain Group II -------- Patient Age/Sex Location Account Attending Physician GRACIE LEMONS 74/M EN [id number] Dr. Octavio Rasmussen MD Specimen: [id number] Received: 08/19/24 Status: JONO Lieberman Num: [id number] Spec Type: Fluid Subm Dr: Dr. Octavio Rasmussen MD HEADER OPERATION: Bronchoscopy (MAC), biopsy PRE-OP DIAGNOSIS: Pulmonary fibrosis TISSUE SUBMITTED: Right lower lung fluid for cytology DIAGNOSIS CYTOLOGY Right lower lobe lung fluid, bronchoalveolar lavage:Negative for malignant cellsPulmonary macrophages, squamous cells, respiratory epithelium, and light mixed inflammation COMMENT Jaqui Perez M.D. 08/26/24 CYTOLOGY STUDY Slides are reviewed. CYTOLOGY GROSS Received is 55 ml of red-cloudy bloody fluid labeled with the patient's name and and designated per the requisition as Right lower lung fluid. Submitted for cytology preparation including cell block. Mr 08/20/2024 CPT: 32209 ,90291, TC:4 ADDENDUM Addendum 2 Entered: 09/02/247582 This addendum is added to incorporate an outside pathology consultation report. The case was examined at [facility] by Dr. Ureña (#[id number]) and the following diagnosis was rendered. A. 2nd opinion consultation, cytology - Right lower lobe lung fluid, bronchoalveolar lavage: No malignant cells are identified. Please see complete above mentioned consultation report in EMR Patient Age/Sex Location Account Attending Physician GRACIE LEMONS 74/M EN [id number] Dr. Octavio Rasmussen MD ADDENDUM (Continued) Addendum Signed (signature on file) Dr. Dejah Brennan MD 09/02/24 0952 Addendum 1 Entered: 08/26/24152 This addendum is being issued to report the results of a stain for acid-fast bacilli with an appropriate positive control. The specimen is negative for acid-fast bacilli Addendum Signed (signature on file) Dr. Jese Perez MD 08/26/24 1522 Signed (signature on file) Dr. Jese Perez MD 08/26/24 1412 Normal [facility] Comment on above: Performed By: #### L 501.080 #### [facility] [address] [place], [place], [id number] Surgery Specimen Level Jesse 08-19-2024 Surgery Specimen Level IV Patient Age/Sex Location Account Attending Physician GRACIE LEMONS 74/M EN [id number] Dr. Octavio Rasmussen MD Specimen: [id number] Received: 08/20/24 Status: JONO Lieberman Num: [id number] Spec Type: LUNG BX Subm Dr: Dr. Octavio Rasmussen MD HEADER OPERATION: Bronchoscopy (MAC), biopsy PRE-OP DIAGNOSIS: Pulmonary fibrosis TISSUE SUBMITTED: Right lower lobe MICROSCOPIC DIAGNOSIS Lung, right lower lobe, endobronchial biopsy: * The final diagnosis is PENDING expert consultation with a thoracic american indian policy specialist at [facility]. The microsoft dynamics ax consultant's report will be provided in an ADDENDUM. MICROSCOPIC DESCRIPTION Slides are reviewed. GROSS DESCRIPTION Received in formalin labeled Cristo Gracie and is not designated are multiple wells, ragged, irregular shaped, soft, tissue fragments that aggregate to 1.4 x 1.3 x 0.2 cm. Totally submitted in one cassette.JK. 08/20/2024 CPT:66397 ADDENDUM Addendum 1 Entered: 09/01/24 This addendum is added to incorporate an outside pathology consultation report. The case was examined at [facility] by Dr. Burciaga (#[id number]) and the following diagnosis was rendered. A. Lung, right lower lobe, endobronchial biopsy: Fragments of benign lung tissue with peribronchiolar metaplasia. Patchy chronic lymphoplasmacytic inflammation. Please see complete above mentioned consultation report in EMR Patient Age/Sex Location Account Attending Physician GRACIE LEMONS 74/M EN [id number] Dr. Octavio Rasmussen MD ADDENDUM (Continued) Addendum Signed (signature on file) Dr. Dejah Brennan MD 09/01/24 1445 Patient Age/Sex Location Account Attending Physician GRACIE LEMONS 74/M EN [id number] Dr. Octavio Rasmussen MD Signed (signature on file) Dr. Dejah Brennan MD 08/27/24 1420 Normal [facility] Comment on above: Performed By: #### L 501.080 #### [facility] [address] [place], [place], [id number] ANCAon 08-14-2024 Atypical pANCA <1:20 Normal Neg:<1:20 [facility] Comment on above: Result Comment: The atypical pANCA pattern has been observed in a significant percentage of patients with ulcerative colitis, primary sclerosing cholangitis and autoimmune hepatitis. Performed By: #### L 3300.1200, L4600.0100, L3410.9998, L3100.6900, L501.6710, L3100.9100, L3100.5500, L803.2200 ####[facility] [address] [place], [place], [id number] Cytoplasmic Ab <1:20 Normal Neg:<1:20 [facility] Comment on above: Performed By: #### L 3300.1200, L4600.0100, L3410.9998, L3100.6900, L501.6710, L3100.9100, L3100.5500, L803.2200 ####[facility] [address] [place], [place], [id number] Perinuclear Ab. <1:20 Normal Neg:<1:20 [facility] Comment on above: Result Comment: The presence of positive fluorescence exhibiting P-ANCA or C-ANCA patterns alone is not specific for the diagnosis of Jie's Granulomatosis (WG) or microscopic polyangiitis. Decisions about treatment should not be based solely on ANCA IFA results. The International ANCA Group Consensus recommends follow up testing of positive sera with both KY- 3 and MPO-ANCA enzyme immunoassays. As many as 5% serum samples are positive only by EIA. Ref. AM J Clin Pathol 1999;111:507-513. Performed By: #### L 3300.1200, L4600.0100, L3410.9998, L3100.6900, L501.6710, L3100.9100, L3100.5500, L803.2200 ####[facility] [address] [place], [address] Angiotensin Convert Enzymeon 08-14-2024 ANGIOT-CONV.ENZ 21 U/L Normal 14-82 [facility] Comment on above: Performed By: #### L 3300.1200, L4600.0100, L3410.9998, L3100.6900, L501.6710, L3100.9100, L3100.5500, L803.2200 ####[facility] [address] [place], [address] Anti-Smooth Muscle ABSon ANTISMOOTH MUSC 19 Units Normal 0-19 [facility] Comment on above: Result Comment: Nega tive 0 - 19 Weak positive 20 - 30 Moderate to strong positive >30 Actin Antibodies are found in 52-85% of patients with autoimmune hepatitis or chronic active hepatitis and in 22% of patients with primary biliary cirrhosis. Performed By: #### L 3300.1200, L4600.0100, L3410.9998, L3100.6900, L501.6710, L3100.9100, L3100.5500, L803.2200 ####[facility] [address] [place], [address] Anti-dsDNA Abon 08-14-2024 ANTI-DNA (DS)AB 1 IU/mL Normal 0-9 [facility] Comment on above: Result Comment: Nega tive <5 Equivocal 5 - 9 Positive >9 Performed at: [address] [id number] Food Service: Petr Arzola PhD, Phone: [phone] Performed By: #### L 3300.1200, L4600.0100, L3410.9998, L3100.6900, L501.6710, L3100.9100, L3100.5500, L803.2200 ####[facility] [address] [place], [place], [address] CCP IgG Antibodieson 025 CCP IgG Ab. 18 units Normal 0-19 [facility] Comment on above: Result Comment: Nega tive <20 Weak positive 20 - 39 Moderate positive 40 - 59 Strong positive >59 Performed at: [facility] [address] [id number] Food Service: Petr Arzola PhD, Phone: [phone] Performed By: #### L 3300.1200, L4600.0100, L3410.9998, L3100.6900, L501.6710, L3100.9100, L3100.5500, L183.5722 ####[facility] [address] [facility] [facility] [place], [place], [address] MR/PAT.ANEon 08-14-2024 MR/PAT.[facility] Medical Records Department [address] [place] [address] PAT - Anesthesia 08/14/24 1652 MR#: [id number] Acct: [id number] Name: GRACIE LEMONS Rep #: [id number] : 1950 74 From: Neeraj Perera MD PCP: Dr. 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 When Was Last Pacemaker Check QUESTION #4 FULL TEXT: You/Your Family Experience fever (hyperthermia) with Anesthesia Last Oral Intake Last Oral intake: Last Oral Intake NPO since Meds taken in AM with sips of water? Meds patient instructed to take am of surgery PONV PONV - rubber and plastics worker: PONV - rubber and plastics worker Female No 08/14/24 10:42 HX of Motion Sickness No 08/14/24 10:42 HX of N/V After Surgery No 08/14/24 10:42 Non-Smoker Yes 08/14/24 10:42 Duration of Surgery greater Yes 08/14/24 10:42 than 60 minutes Number of Risk Factors 2 08/14/24 10:42 PONV Score Moderate Risk 08/14/24 10:42 Height Weight Height Weight: Anesthesia: Height Weight Height 5 ft 5 in 07/29/24 17:07 Respiratory Assessment Respiratory Assessment - rubber and plastics worker: Respiratory Tract Infection Hx - rubber and plastics worker Hx Respiratory Tract Infection No 08/14/24 10:42 STOP Sleep Apnea STOP Sleep Apnea - rubber and plastics worker: STOP Sleep Apnea - rubber and plastics worker Hx Hypertension Yes: per pt, controlled on 08/14/24 10:42 meds Hx Sleep Apnea Yes 08/14/24 10:42 CPAP Yes 08/14/24 10:42 BIPAP No 08/14/24 10:42 Do you snore loudly (louder than talking or can be heard Do you often feel tired/ fatigued/ sleepy during daytime? Has anyone observed you stop breathing during sleep? STOP Results Positive 08/14/24 10:42 QUESTION #5 FULL TEXT : Do you snore loudly (louder than talking or can be heard through closed doors)? 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 Specify any problems Hx of Preganancy in last 3 N/A 08/14/24 10:42 Months Nurse Filling Out Transfusion MGRIFFITH 08/14/24 10:42 Questions: Date: 08/14/24 08/14/24 10:42 Time: 10:44 08/14/24 10:42 Patient unable to answer at this time (ie. confused, unrespo /Reproduction History /Reproductive History - rubber and plastics worker: /Reproductive Hx- rubber and plastics worker Hx Now Gestational Age (in weeks): EDC: Hx Hx Para Hx Section SAB No 08/14/24 10:42 [facility] Medical History (Updated 08/14/24 @ 10:49 by Danielle Avila) Hypertension Non-smoker Facial cellulitis Loss of hearing Wears glasses Wears dentures Fungus infection Diabetes Thyroid disease Arthritis Bladder disease Prostate disease High cholesterol Back pain TIA (transient ischemic attack) Balance disorder Seizures Dietary restriction Gastric reflux CPAP (continuous positive airway pressure) dependence Shortness of breath on exertion History of pain when walking History of echocardiogram History of stress test Cardiology follow-up encounter History of orthostatic hypotension Hypotension Obesity Dyslipidemia History of atrial fibrillation Coronary artery disease Weakness Abnormality of gait and mobility Low back pain Left foot drop Polyneuropathy 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 Leg weakness, bilateral Chest pain Fatigue PALOMO (dyspnea on exertion) Sinus tachycard (more content not included)... Normal [facility] Sjogren's Antibodies A/Bon 0 08-14-2024 ANTI-SS-A < 0.2 Normal 0.0-0.9 [facility] Comment on above: Result Comment: AMENDED REPORT 08/14/248 Anti-SS-A previously reported as: Test not performed Performed By: #### L 3300.1200, L4600.0100, L3410.9998, L3100.6900, L501.6710, L3100.9100, L3100.5500, L803.2200 ####[facility] [address] [place], [place], [id number] ANTI-SS-B < 0.2 Normal 0.0-0.9 [facility] Comment on above: Result Comment: AMENDED REPORT 08/14/24 1508 Anti-SS-B previously reported as: Test not performed Performed By: #### L 3300.1200, L4600.0100, L3410.9998, L3100.6900, L501.6710, L3100.9100, L3100.5500, L803.2200 ####[facility] [address] [place], [place], [id number] Actin IgG QnOrdered By: Kenji Rasmussen on 08-13-2024 Anti-Smooth Muscle Antibody 19 Units 0-19 [facility] Comment on above: Negative 0 - 19 Weak positive 20 - 30 Moderate to strong positive >30 Actin Antibodies are found in 52-85% of patients with autoimmune hepatitis or chronic active hepatitis and in 22% of patients with primary biliary cirrhosis. Atypical perinuclear antineu trophil cytoplasmic antibodies measurementOrdered By: Octavio Rasmussen on 08-13-2024 Atypical p-ANCA <1:20 titer Neg:<1:20 [facility] Comment on above: The atypical pANCA p attern has been observed in asignificant percentage of patients with ulcerative colitis,primary sclerosing cholangitis and autoimmune hepatitis. CRPon 08-13-2024 C-REACTIVE PROT < 3.00 Normal 0.0-3.0 [facility] Comment on above: Performed By: #### L 3300.1200, L4600.0100, L3410.9998, L3100.6900, L501.6710, L3100.9100, L3100.5500, L803.2200 ####[facility] [address] [place], [address] CRP [Mass/Vol]Ordered By: Sia Rasmussen on 08-13-2024 C-Reactive Protein Extended Range < 3.00 mg/L 0.0-3.0 [facility] Cyclic citrullinated peptide IgG QnOrdered By: Octavio Rasmussen on 08-13-2024 Cyclic Citrullinated Peptide IgG Ab 18 units 0-19 [facility] Comment on above: Negative <20 Weak po sitive 20 - 39 Moderate positive 40 - 59 Strong positive >59Performed at: - [facility] [id number] Director: Petr Arzola PhD, Phone: [phone] DNA double strand Ab Qn (S)O rdered By: Octavio Rasmussen on 08-13-2024 Anti-Double Strand DNA Antibody 1 IU/mL 0-9 [facility] Comment on above: Negative <5 Equivoca l 5 - 9 Positive >9Performed at: CB - [facility] [address] [place], [place] [id number] Director: Petr Arzola PhD, Phone: [phone] Neutrophil cytoplasmic Ab.cl assic Qn (S)Ordered By: Octavio Rasmussen on 08-13-2024 Cytoplasmic ANCA (c-ANCA) Antibody <1:20 titer Neg:<1:20 [facility] Neutrophil cytoplasmic Ab.pe rinuclear IF (S) [Titer]Ordered By: Octavio Rasmussen on 08-13-2024 Perinuclear ANCA (p-ANCA) Antibody <1:20 titer Neg:<1:20 [facility] Comment on above: The presence of posi tive fluorescence exhibiting P-ANCA orC-ANCA patterns alone is not specific for the diagnosis ofWegener's Granulomatosis (WG) or microscopic polyangiitis.Decisions about treatment should not be based solely onANCA IFA results. The [employer] Consensusrecommends follow up testing of positive sera with both KY-3 and MPO-ANCA enzyme immunoassays. As many as 5% serumsamples are positive only by EIA. Ref. AM J Clin Aypoqc9791;111:507-513. SS-A IgG antibody assayOrder ed By: Octavio Rasmussen on 08-13-2024 SS-A/Ro IgG Antibody < 0.2 AI 0.0-0.9 [facility] Comment on above: Previous reported re sult: TNP AIEdited by: MICHEAL on 08/14/24:1508 AMENDED REPORT 08/14/24 1508 Anti-SS-A previously reported as: Test not performed SS-B IgG antibody assayOrder ed By: Octavio Rasmussen on 08-13-2024 SS-B/La IgG Antibody < 0.2 AI 0.0-0.9 [facility] Comment on above: Previous reported re sult: TNP AIEdited by: MICHEAL on 08/14/24:1508 AMENDED REPORT 08/14/24 1508 Anti-SS-B previously reported as: Test not performed Serum DNA double strand anti body assay (units/volume)Ordered By: Octavio Rasmussen on 08-13-2024 DNA double strand Ab Qn (S) 1 [IU]/mL 0-9 [facility] Comment on above: Negative <5 Equivoca l 5 - 9 Positive >9Performed at: [facility] [place], [place] [id number] Director: Petr Arzola PhD, Phone: [phone] Serum classic neutrophil cyt oplasmic antibody assay (units/volume)Ordered By: Octavio Rasmussen on 08-13-2024 Neutrophil cytoplasmic Ab.classic Qn (S) <1:20 titer Neg:<1:20 [facility] Serum or plasma C reactive p rotein measurement (mass/volume)Ordered By: Octavio Rasmussen on 08-13-2024 CRP [Mass/Vol] mg/L 0.0-3.0 [facility] Serum or plasma actin IgG an tibody assay (units/volume)Ordered By: Octavio Rasmussen on 08-13-2024 Actin IgG Qn 19 Units 0-19 [facility] Comment on above: Negative 0 - 19 Weak positive 20 - 30 Moderate to strong positive >30 Actin Antibodies are found in 52-85% of patients with autoimmune hepatitis or chronic active hepatitis and in 22% of patients with primary biliary cirrhosis. Serum or plasma angiotensin converting enzyme measurement (enzymatic activity/volume)Ordered By: Octavio Rasmussen on 08-13-2024 Angiotensin converting enzyme [Catalytic activity/Vol] 21 U/L 14-82 [facility] Serum or plasma cyclic citru llinated peptide IgG antibody assay (units/volume)Ordered By: Octavio Rasmussen on 08-13-2024 Cyclic citrullinated peptide IgG Qn 18 units 0-19 [facility] Comment on above: Negative <20 Weak po sitive 20 - 39 Moderate positive 40 - 59 Strong positive >59Performed at: [facility] [id number] Director: Petr Arzola PhD, Phone: [phone] Serum perinuclear neutrophil cytoplasmic antibody titer by immunofluorescenceOrdered By: Octavio Rasmussen on 08-13-2024 Neutrophil cytoplasmic Ab.perinuclear IF (S) [Titer] <1:20 titer Neg:<1:20 [facility] Comment on above: The presence of posi tive fluorescence exhibiting P-ANCA orC-ANCA patterns alone is not specific for the diagnosis ofWegener's Granulomatosis (WG) or microscopic polyangiitis.Decisions about treatment should not be based solely onANCA IFA results. The [employer] Consensusrecommends follow up testing of positive sera with both KY-3 and MPO-ANCA enzyme immunoassays. As many as 5% serumsamples are positive only by EIA. Ref. AM J Clin Vqhgdr2269;111:507-513. Chest without Contraston Chest without Contrast [facility] Imaging Services [address], [place] [id number] Chest without Contrast MR#: [id number] Acct: [id number] Name: GRACIE LEMONS Rep #: [id number] : 1950 M 74 From: Donny Benedict MD PCP: Dr. Connor Kohli MD Status: REG CLI Study: Chest without Contrast Date of Exam: 08/05/24 Exam# [id number] Ordering Dr: Octavio Rasmussen MD PROCEDURE: CT CHEST WITHOUT CONTRAST REASON FOR EXAM: Chronic cough. TECHNIQUE: Contiguous axial scans of 2.5 mm slice thicknesses. Sagittal and coronal reconstruction images were obtained. One or more dose reduction techniques were used (e.g., automated exposure control, adjustment of mA and/or kv according to patient size, use of iterative reconstruction technique). COMPARISON: CT chest dated 05/18/2022. FINDINGS: Hardware: None. Lymph nodes: Small nonspecific lymph nodes scattered throughout the mediastinum. Heart and Vasculature: Normal heart size. No pericardial effusion. Thoracic aorta and pulmonary arteries have normal contours; noncontrast technique limits evaluation. Coronary Artery Calcifications: Severe. Lungs and Airways: Mild areas of ground-glass opacification in the left upper and lower lobes. Moderate ground-glass opacification in the right lower lobe. Bilateral lower lobe bronchiectatic changes, more prominent on the right. Pleura: No pleural effusion. No pneumothorax. Upper Abdomen: Visualized portions of the upper abdominal viscera are unremarkable. Bones: Mild multilevel spondylosis. CT/Chest without Contrast IMPRESSION: 1. Ground-glass opacification in the bilateral lungs as detailed above, more prevalent in the right lower lobe. This may be inflammatory or infectious. 2. Bilateral lower lobe bronchiectasis, more prevalent in the right lower lobe. 3. Severe coronary artery calcifications. 4. Other nonacute findings detailed above. Reading Location: [facility] CC: Dr. Connor Kohli MD; Dr. Octavio Rasmussen MD Gear Roller: Signed Normal [facility] Bedside Glucoseon 07-29-2024 FINGERSTICK GLU 167 mg/dL High 74-106 [facility] Comment on above: Result Comment: HELDER GEMENT OF PATIENT CARE PER NURSING PROTOCOL Performed By: #### L 501.080 #### [facility] [address], [address] FINGERSTICK GLU 152 mg/dL High 74-106 [facility] Comment on above: Result Comment: HELDER GEMENT OF PATIENT CARE PER NURSING PROTOCOL Performed By: #### L 501.080 #### [facility] [address] [place], [address] Discharge Instructionon 07-[address] [facility] Medical Records Department [address] [facility] [place] [address] Instructions for Home/Discharge Instructions 07/29/24 1415 MR#: [id number] Acct: [id number] Name: GRACIE LEMONS Rep #: [id number] : 1950 74 From: Avinash Lombardi MD PCP: Dr. Connor Kohli MD Status:REG [facility] [place] [place] Discharge Instructions Diet Discharge Diet: No restrictions, Light diet - advance as tolerated and Soft diet DC O2, CPAP, BIPAP needs Home O2 Discharge instructions: No Dressing / Incision Discharge Activity: Return to Normal Activity Dressing / Incision Catheter: Silva to leg bag and Silva to large bag Drain: Pierpont Follow Up Care Please Follow Up With: Avinash Lombardi MD When: call office for a follow up appt. [phone] Test Results: Test results from this visit will be discussed in further detail at your follow-up appointment, if applicable. Discharge Plan Admission Attending Provider: Avinash Lombardi Primary Care Provider: Connor Kohli Instructions Print Language: Persian Discharge Orders/Prescriptions Prescriptions: No Action cholecalciferol (vitamin D3) 1,000 unit capsule 5,000 unit PO DAILY nitroglycerin 0.4 mg tablet, sublingual 0.4 mg sublingual Q5-15M PRN (Reason: chest pain) Qty: 25 3RF Rx Instructions: do not exceed 3 doses per episode oxybutynin chloride 10 mg tablet extended release 24hr 10 mg PO QPM (DME) Disability Placard See Rx Instructions .Route .MEDSUPPLY Qty: 1 0RF Rx Instructions: Expiration: 11/29/2025 Synjardy XR 12.5-1,000 mg tablet, IR - ER, biphasic 24hr 2 tab PO DAILY levothyroxine 50 mcg tablet 50 mcg PO DAILY (DME) Left AFO See Rx Instructions .Route .MEDSUPPLY Qty: 1 0RF Rx Instructions: As directed gabapentin 300 mg capsule 300 mg PO BID tamsulosin 0.4 mg capsule 0.4 mg PO QHS glimepiride 2 mg tablet 2 mg PO QDAY nortriptyline 25 MG capsule 25 mg PO QHS pantoprazole 40 MG tablet 40 mg PO DAILY finasteride 5 MG tablet 5 mg PO QHS rosuvastatin 10 mg tablet 10 mg PO QHS Trulicity 3 mg/0.5 mL pen injector 3 mg subcut SA lisinopril 20 mg tablet 20 mg PO QHS Rx Instructions: TAKE 1 TABLET BY MOUTH DAILY FOR HIGH BLOOD PRESSURE ezetimibe 10 mg tablet 10 mg PO QHS Qty: 90 3RF clopidogrel 75 mg tablet 75 mg PO DAILY Qty: 90 3RF metoprolol tartrate 100 mg tablet 100 mg PO BID Qty: 180 3RF Referrals / Follow Up: Connor Kohli MD [Primary Care Provider] - Disposition Disposition (needs filled in before D/C Order can be placed): Home, Self Care 07/29/24 1416 Avinash Lombardi MD CC: Dr. Connor Kohli MD Signed Normal [facility] By: Avinash Lombardi on 07-29-2024 Bedside Glucose (Misc Panel) 167 mg/dL High 74-106 [facility] Comment on above: MANAGEMENT OF PATIEN T CARE PER NURSING PROTOCOL Glucose [Mass/Vol] 167 mg/dL High 74-106 [facility] Comment on above: MANAGEMENT OF PATIEN T CARE PER NURSING PROTOCOL MR/POSTOP.ANEon 07-29-2024 MR/POSTOP.ANE [facility] Medical Records Department [address] [place] [address] Anesthesia Postop Eval I 07/29/24 1528 MR#: [id number] Acct: [id number] Name: GRACIE LEMONS Rep #: [id number] : 1950 74 From: Nena Gipson CRNA PCP: Dr. Connor Kohli MD Status:REG SDC Y Race: C Location: [place] [address] Anesthesia: Postop Eval I Current Vital Signs Temperature: 98.3 F Pulse Rate: 78 Blood Pressure: 106/78 Respiratory Rate: 16 Pulse Ox: 93 Oxygen Delivery Method: Nasal Cannula Oxygen Flow Rate (L/min): 4 Assessment Airway patent: Yes Spontaneous unlabored respirations: Yes Mental status: Awake and Calm nausea: No Vomiting: No Anesthesia Complication: No Fluid Hydration Crystalloid volume administer (ml): 700 Total IV fluid infused: 700 Progress Note Anesthesia document: Postop Eval 1 completed: Yes 07/29/24 152 Date Nena Gipson CRNA Cosigner Signature: Date CC: Signed Normal [facility] MR/[id number] 07-29-2024 MR/POSTOPAN2 [facility] Medical Records Department [address] [place] [address] Anesthesia Postop Eval II 07/29/24 1558 MR#: [id number] Acct: [id number] Name: GRACIE LEMONS JORGE Rep #: [id number] : 1950 74 From: Ralph Zavala MD PCP: Dr. Connor Kohli MD Status:REG SDC Y Race: C Location: [place] [address] Anesthesia Postop Eval I Sum Postop Eval Completion status Anesthesia document: Postop Eval 1 completed: Yes Anesthesia Postop Eval I Summary Anesthesia Postop Eval I Summary: Anesthesia Postop Eval I: Assessment Summary Airway patent Yes 07/29/24 15:28 DRILLING MACHINE OPERATOR.SKOBY Spontaneous unlabored Yes 07/29/24 15:28 DRILLING MACHINE OPERATOR.SKOBY respirations Mental status Awake,Calm 07/29/24 15:28 DRILLING MACHINE OPERATOR.SKOBY nausea No 07/29/24 15:28 DRILLING MACHINE OPERATOR.SKOBY Vomiting No 07/29/24 15:28 DRILLING MACHINE OPERATOR.SKOBY Anesthesia Postop Eval I: Fluid Summary Crystalloid volume administer 700 07/29/24 15:28 DRILLING MACHINE OPERATOR.SKOBY (ml) Colloids volume administered ( ml) Blood Product volume administered (ml) Total IV fluid infused 700 07/29/24 15:28 DRILLING MACHINE OPERATOR.SKOBY Anesthesia Postop Eval I: Summary Notes Anesthesia Complication No 07/29/24 15:28 DRILLING MACHINE OPERATOR.SKOBY Anesthesia Complication Comment: Post-operative progress note Anesthesia: Postop Eval II Evaluation Mental status: Awake Pain Level: 0 nausea: No Vomiting: No 07/29/24 1558 Date Ralph Zavala MD Cosigner Signature: Date CC: Signed Normal [facility] Operative Reporton 5 Operative Report [facility] Medical Records Department [address] [place] [address] Operative Report 07/29/24 1512 MR#: [id number] Acct: [id number] Name: GRACIE LEMONS Rep #: [id number] : 1950 74 From: Avinash Lombardi MD PCP: Dr. Connor Kohli MD Status:REG SDC Location: [place] [id number] Operative Report (Standard) Operative Information Date of Procedure: 07/29/24 Pre-Operative Diagnosis: Incomplete bladder emptying and incontinence, BPH with obstruction Post-Operative Diagnosis: The same Surgery/Procedure Performed: Transurethral section of prostate performance reporter: No Type of Anesthesia: General RN Documented Start/Stop Times: Operation Date: 07/29/24 14:40 Case Time Into Pre-Op 07/29/24 12:39 Procedure Start Time: 14:51 Procedure Stop Time: 15:13 Select all DRAINS/GRAFTS/IMPLANTS that apply: Drains Drain details: 22 Danish three-way Silva Estimated Blood Loss: 0 Specimen collected: Yes Description of specimen(s) removed: Prostate tissue Description of surgery: In the preoperative setting I discussed with the patient how the surgery would be done with expect afterwards. We discussed how a prostate resection is done and we discussed the risk of the surgery including, bleeding, infection, retrograde ejaculation, changes with ejaculation or intercourse,. We discussed the possibility that the resection of the prostate may not alleviate his urinary symptoms. We discussed the small risk of developing scar tissue along the urethral channel and strictures. We also discussed the chance of the prostate could grow back and he may need further surgery or treatment in the future for prostate problems. Patient was taken back to the operating room, timeout procedure was performed, he was identified and marked and placed on the operating room table. He underwent general anesthesia. He was placed in dorsolithotomy position. Penis and testicles were prepped and draped in usual sterile fashion. Went into the bladder using the visual obturator with a resectoscope. Once inside the bladder identified the right and left ureteral orifice. I then identified the prostate and the anatomy of the prostate. I marked out the area of the sphincter and the verumontanum was identified. I then proceeded with the prostate resection first resected the median lobe. And then resected the right lobe of the prostate. Then to resect the left lobe of the prostate. I then resected the apical tissue of the prostate. This was a complete resection of all obstructive tissue to improve voiding and relieve obstruction. I then made sure that there was no injury to the sphincter or the verumontanum was still intact. At the end of the resection all the chips were Ellik out of the bladder. I then identified the left and right ureteral orifice and these were confirmed to be in good position and effluxing and not injured. The resectoscope was removed, a 22 Danish catheter was placed into the bladder on continuous irrigation. And the urine was fairly light pink color and draining normally. He was taken back to the PACU in good condition. CPT 29788 Surgical Findings: Small short obstructive prostate Complications Complications: No Admit VTE Documentation VTE Present on Admission: No VTE Mechan Device Prophylaxis: SCD's VTE Pharm Prophylaxis ordered?: No 07/29/24 0618 Cosigner Signature (if applicable): CC: Dr. Avinash Lombardi MD; Dr. Connor Kohli MD Signed Normal [facility] Surgery Specimen Level Jesse 07-29-2024 Surgery Specimen Level IV Patient Age/Sex Location Account Attending Physician GRACIE LEMONS 74/M MS3 [id number] Dr. Avinash Lombardi MD Specimen: [id number] Received: 07/29/24 Status: JONO Lieberman Num: [id number] Spec Type: GARRISON Valero Dr: Dr. Avinash Lombardi MD HEADER OPERATION: Cysto, transurethral resection, prostate PRE-OP DIAGNOSIS: Benign prostatic hyperplasia with obstruction TISSUE SUBMITTED: Prostate chips MICROSCOPIC DIAGNOSIS Prostate chips, transurethral resection: Benign prostatic hyperplasia, glandular and stromal type. Chronic inflammation and basal cell hyperplasia. [facility] 07/31/2024 MICROSCOPIC DESCRIPTION Slides are reviewed. GROSS DESCRIPTION Received is one container labeled with the patient's name and designated prostate tissue. The specimen consists of multiple irregular fragments of pink-wells, rubbery, soft tissue that in aggregate weigh 4.9 gm and measure in aggregate 5 x 4 x 1.5 cm. The entire specimen is submitted in six cassettes. [facility] 07/30/2024 TC:5 CPT: 31058 Patient Age/Sex Location Account Attending Physician GRACIE LEMONS 74/M MS3 [id number] Dr. Avinash Lombardi MD Signed (signature on file) Dr. Andrew Hair MD 07/31/24 1219 Normal [facility] Comment on above: Performed By: #### P SUIV ####[facility] [address] [place], [address] 12 Lead EKGon 07-17-2024 12 Lead EKG [facility] Cardiovascular Services [address] [place] [address] 12 Lead EKG 07/17/24 0716 MR#: [id number] Acct: [id number] Name: GRACIE LEMONS Rep #: [id number] : 1950 74 From: Art Plummer MD Attending Dr: Dr. Avinash Lombardi MD Status: PRE [facility] [place] [place] Ordering Dr: Jeremiah Curtis MD Date: 07/17/24 Location: [facility] [place] [place] Sex: M C Admitted: Test Reason : PREOP Blood Pressure : */* mmHG Vent. Rate : 67 BPM Atrial Rate : 67 BPM P-R Int : 154 ms QRS Dur : 88 ms QT Int : 406 ms P-R-T Axes : 30 9 37 degrees QTcB Int : 429 ms Normal sinus rhythm Normal ECG Confirmed by ELIAN MAY, ART ([id number]), editorial cartoonist LIZBETH SAMANIEGO ([id number]) on 07/17/2024 10:54:30 AM Referred By: Avinash Lombardi Confirmed By: ART PLUMMER MD 07/17/24 1054 Date Art Plummer MD CC: Dr. Avinash Lombardi MD; Dr. Jeremiah Curtis MD; Dr. Connor Kohli MD Signed Normal [facility] Basic Metabolic Profile (BMP )on 07-17-2024 BUN/CRE 11.5 RATIO Normal 10-20 [facility] Comment on above: Performed By: #### L 501.080 #### [facility] [address] [place], [address] CA,Total 8.9 mg/dL Normal 8.5-10.1 [facility] Comment on above: Performed By: #### L 501.080 #### [facility] [address] [place], [address] Chloride [Moles/Vol] 107 mmol/L Normal 98-107 [facility] Comment on above: Performed By: #### L 501.080 #### [facility] [address] [place], [address] CO2 [Moles/Vol] 26.0 mmol/L Normal 21.0-32.0 [facility] Comment on above: Performed By: #### L 501.080 #### [facility] [address] [place], [address] Creatinine [Mass/Vol] 1.31 mg/dL High 0.70-1.30 [facility] Comment on above: Result Comment: The validity of the calculated GFR GFRAA in patients over 70 years has not been determined. Clinical correlation is essential. Performed By: #### L 501.080 #### [facility] [address] [place], [address] EST GFR - AA 69 mL/min Normal >60 [facility] Comment on above: Result Comment: Afri can Kenyan GFR Calc Performed By: #### L 501.080 #### [facility] [address] [place], [address] GAP 6 Normal 5-15 [facility] Comment on above: Performed By: #### L 501.080 #### [facility] [address] [place], [address] GFR/1.73 sq M.predicted among non-blacks MDRD (S/P/Bld) [Vol rate/Area] 57 mL/min/{1.73_m2} Low >60 [facility] Comment on above: Result Comment: Non- GFR Calc Performed By: #### L 501.080 #### [facility] [address] [place], [address] Glucose [Mass/Vol] 133 mg/dL High 74-106 [facility] Comment on above: Result Comment: Fast ing Glucose result greater than or equal to 126 mg/dL suggests DIABETES MELLITUS per A.D.A. criteria. Performed By: #### L 501.080 #### [facility] [address] [place], [address] Potassium [Moles/Vol] 3.8 mmol/L Normal 3.5-5.1 [facility] Comment on above: Performed By: #### L 501.080 #### [facility] [address] [place], [address] Sodium [Moles/Vol] 139 mmol/L Normal 136-145 [facility] Comment on above: Performed By: #### L 501.080 #### [facility] [address] [place], [address] Urea nitrogen [Mass/Vol] 15 mg/dL Normal 7-18 [facility] Comment on above: Performed By: #### L 501.080 #### [facility] [address] [place], [address] Blood urea nitrogen (BUN)/cr eatinine ratioOrdered By: Jeremiah Curtis on 07-17-2024 Urea nitrogen/Creatinine [Mass ratio] 11.5 mg/mg 10- [facility] CBC-Complete Blood Cnt No Di ffon 07-17-2024 Erythrocyte distribution width (RBC) [Ratio] 13.2 % Normal 11.6-14.6 [facility] Comment on above: Performed By: #### L 501.080 #### [facility] [address] [place], [address] Hematocrit (Bld) [Volume fraction] 48.2 % Normal 40-54 [facility] Comment on above: Performed By: #### L 501.080 #### [facility] [address] [place], [address] Hemoglobin (Bld) [Mass/Vol] 15.4 g/dL Normal 13.0-16.5 [facility] Comment on above: Performed By: #### L 501.080 #### [facility] [address] [place], [address] MCH (RBC) [Entitic mass] 30.6 pg Normal 27.0-32.0 [facility] Comment on above: Performed By: #### L 501.080 #### [facility] [address] [place], [address] MCHC (RBC) [Mass/Vol] 32.0 g/dL Normal 32-36 [facility] Comment on above: Performed By: #### L 501.080 #### [facility] [address] [place], [address] MCV (RBC) [Entitic vol] 95.8 fL High 80-94 [facility] Comment on above: Performed By: #### L 501.080 #### [facility] [address] [place], [address] Platelet mean volume (Bld) [Entitic vol] 10.2 fL Normal 6.2-12.0 [facility] Comment on above: Performed By: #### L 501.080 #### [facility] [address] [place], [address] Platelets (Bld) [#/Vol] 230 10*3/uL Normal 150-450 [facility] Comment on above: Performed By: #### L 501.080 #### [facility] [address] [place], [address] RBC (Bld) [#/Vol] 5.03 10*6/uL Normal 4.6-6.2 [facility] Comment on above: Performed By: #### L 501.080 #### [facility] [address] [place], [address] RDW SD 47.5 fl High 35.1-43.9 [facility] Comment on above: Performed By: #### L 501.080 #### [facility] [address] [place], [address] WBC (Bld) [#/Vol] 10.1 10*3/uL Normal 4.4-11.0 [facility] Comment on above: Performed By: #### L 501.080 #### [facility] [address] [place], [address] Carbon dioxide measurementOr dered By: thierry Kingiu on 07-17-2024 CO2 [Moles/Vol] 26.0 mmol/L 21.0-32.0 [facility] Chloride measurementOrdered By: Jeremiah Kingiu on 07-17-2024 Chloride [Moles/Vol] 107 mmol/L 98-107 [facility] Erythrocyte distribution wid th ratioOrdered By: Jeremiah Nafiu on 07-17-2024 Erythrocyte distribution width (RBC) [Ratio] 13.2 % 11.6-14.6 [facility] Erythrocyte distribution wid th standard deviationOrdered By: Jeremiah Curtis on 07-17-2024 Erythrocyte distribution width (RBC) [Entitic vol] 47.5 fL High 35.1-43.9 [facility] Erythrocyte distribution width (RBC) [Ratio] 47.5 fl High 35.1-43.9 [facility] Estimated glomerular filtrat ion rate (GFR) AmericanOrdered By: Jeremiah Curtis on 07-17-2024 Estimated GFR (MDRD) Amer 69 mL/min >60 [facility] Comment on above: GFR Calc Glomerular filtration rate ( GFR) estimationOrdered By: Jeremiah Curtis on 07-17-2024 Estimated GFR (MDRD) Non-Af Amer 57 mL/min Low >60 [facility] Comment on above: Non- GFR Calc GFR/1.73 sq M.predicted among non-blacks MDRD (S/P/Bld) [Vol rate/Area] 57 mL/min/{1.73_m2} Low >60 [facility] Comment on above: Non- GFR Calc Glucose measurementOrdered B y: Jeremiah Curtis on 07-17-2024 Glucose [Mass/Vol] 133 mg/dL High 74-106 [facility] Comment on above: Fasting Glucose resu lt greater than or equal to 126 mg/dL suggests DIABETES MELLITUS per A.D.A. criteria. Hematocrit Auto (Bld) [Volum e fraction]Ordered By: Jeremiah Curtis on 07-17-2024 Hematocrit (Bld) [Volume fraction] 48.2 % 40-54 [facility] Hemoglobin A1con 07-17-2024 HbA1c (Bld) [Mass fraction] 7.7 % High 3.8-5.6 [facility] Comment on above: Result Comment: Norm al < 5.7 % Prediabetic 5.7 - 6.4 % Diabetic >or= 6.5 % Please note range changes. Performed By: #### L 501.080 #### [facility] [address] [place], [place] [address]all [address]. [place], [place], [id number] Hemoglobin A1c percentageOrd ered By: Jeremiah Curtis on 07-17-2024 HbA1c (Bld) [Mass fraction] 7.7 % High 3.8-5.6 [facility] Comment on above: Normal < 5.7 % Predi abetic 5.7 - 6.4 % Diabetic >or= 6.5 % Please note range changes. Hemoglobin measurementOrdere d By: Maria Elenajustine Kingcinthia on 07-17-2024 Hemoglobin (Bld) [Mass/Vol] 15.4 g/dL 13.0-16.5 [facility] MCV (mean corpuscular volume ) determinationOrdered By: janettejustine [facility] on 07-17-2024 MCV (RBC) [Entitic vol] 95.8 fL High 80-94 [facility] MR/PAT.FUNMIon 07-17-2024 MR/PAT.ANE [facility] Medical Records Department [address] [place] [address] PAT - Anesthesia 07/17/24 1203 MR#: [id number] Acct: [id number] Name: GRACIE LEMONS Rep #: [id number] : 1950 74 From: Ralph Zavala MD PCP: Dr. 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 When Was Last Pacemaker Check QUESTION #4 FULL TEXT: You/Your Family Experience fever (hyperthermia) with Anesthesia Last Oral Intake Last Oral intake: Last Oral Intake NPO since Meds taken in AM with sips of water? Meds patient instructed to take am of surgery PONV PONV - rubber and plastics worker: PONV - rubber and plastics worker Female No 07/15/24 10:07 HX of Motion Sickness No 07/15/24 10:07 HX of N/V After Surgery No 07/15/24 10:07 Non-Smoker Yes 07/15/24 10:07 Duration of Surgery greater Yes 07/15/24 10:07 than 60 minutes Number of Risk Factors 2 07/15/24 10:07 PONV Score Moderate Risk 07/15/24 10:07 Height Weight Height Weight: Anesthesia: Height Weight Height 5 ft 5 in 05/24/24 14:11 Respiratory Assessment Respiratory Assessment - rubber and plastics worker: Respiratory Tract Infection Hx - rubber and plastics worker Hx Respiratory Tract Infection No 07/15/24 10:07 STOP Sleep Apnea STOP Sleep Apnea - rubber and plastics worker: STOP Sleep Apnea - rubber and plastics worker Hx Hypertension Yes: CONTROLLED WITH MEDS 07/15/24 10:07 Hx Sleep Apnea Yes 07/15/24 10:07 CPAP Yes 07/15/24 10:07 BIPAP No 07/15/24 10:07 Do you snore loudly (louder than talking or can be heard Do you often feel tired/ fatigued/ sleepy during daytime? Has anyone observed you stop breathing during sleep? STOP Results Positive 07/15/24 10:07 QUESTION #5 FULL TEXT : Do you snore loudly (louder than talking or can be heard through closed doors)? Tobacco Use History Tobacco Use History - rubber and plastics worker: Tobacco Use History - rubber and plastics worker Tobacco Use Smoking Status Never smoker 07/15/24 10:07 Hx Tobacco Use No 07/15/24 10:07 Years Smoking Packs Smoked per Day Smoking Cessation Date was within the last 15 years Hx Smoking Cessation Date Hx Smoking Cessation Counseling Hematologic Medial History Hematologic Hx - rubber and plastics worker: Hematologic Medical Hx - field service manager Hx of Blood Transfusion No 07/15/24 10:07 Hx of Transfusion in last 3 No 07/15/24 10:07 Months Date of Last Transfusion (if within last 3 months) Ever experience any problems No 07/15/24 10:07 with transfusion(s)? Specify any problems Hx of Preganancy in last 3 N/A 07/15/24 10:07 Months Nurse Filling Out Transfusion DSCHRIBER 07/15/24 10:07 Questions: Date: 07/15/24 07/15/24 10:07 Time: 10:08 07/15/24 10:07 Patient unable to answer at this time (ie. confused, unrespo /Reproduction History /Reproductive History - rubber and plastics worker: /Reproductive Hx- rubber and plastics worker Hx Now No 07/15/24 10:07 Gestational Age (in weeks): EDC: Hx Hx Para Hx Section SAB No 07/15/24 10:07 [facility] Medical History (Updated 07/15/24 @ 10:23 by Yazmin Urena) Facial cellulitis Loss of hearing Wears glasses Wears dentures Fungus infection Diabetes Thyroid disease Arthritis Bladder disease Prostate disease High cholesterol Back pain TIA (transient ischemic attack) Balance disorder Seizures Dietary restriction Gastric reflux CPAP (continuous positive airway pressure) dependence Shortness of breath on exertion History of pain when walking History of echocardiogram History of stress test Cardiology follow-up encounter History of orthostatic hypotension Hypotension Obesity Dyslipidemia History of atrial fibrillation Coronary artery disease Weakness Abnormality of gait and mobility Low back pain Left foot drop Polyneuropathy 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 Leg weakness, bilateral Chest pain Fatigue PALOMO (dyspnea on exertion) Sinus tachycardia COVID-19 Presence of stent (more content not included)... Normal [facility] Mean corpuscular hemoglobin (MCH) determinationOrdered By: Jeremiah Curtis on 07-17-2024 MCH (RBC) [Entitic mass] 30.6 pg 27.0-32.0 [facility] Mean corpuscular hemoglobin concentration (MCHC) determinationOrdered By: Jeremiah Curtis on 07-17-2024 MCHC (RBC) [Mass/Vol] 32.0 g/dL 32-36 [facility] Mean platelet volume determi nationOrdered By: Jeremiah Curtis on 07-17-2024 Platelet mean volume (Bld) [Entitic vol] 10.2 fL 6.2-12.0 [facility] Platelet countOrdered By: Vikram Curtis on 07-17-2024 Platelets (Bld) [#/Vol] 230 10*3/uL 150-450 [facility] Potassium measurementOrdered By: Jeremiah Curtis on 07-17-2024 Potassium [Moles/Vol] 3.8 mmol/L 3.5-5.1 [facility] RBC Auto (Bld) [#/Vol]Ordere d By: Jeremiah Curtis on 07-17-2024 RBC (Bld) [#/Vol] 5.03 10*6/uL 4.6-6.2 [facility] Serum anion gap measurementO rdered By: Jeremiah Curtis on 07-17-2024 Anion gap [Moles/Vol] 6 mmol/L 5-15 [facility] Serum or plasma calcium meño urement (mass/volume)Ordered By: Jeremiah Curtis on 07-17-2024 Calcium [Mass/Vol] 8.9 mg/dL 8.5-10.1 [facility] Serum or plasma creatinine m easurement (mass/volume)Ordered By: Jeremiah Curtis on 07-17-2024 Creatinine [Mass/Vol] 1.31 mg/dL High 0.70-1.30 [facility] Comment on above: The validity of the calculated GFR & GFRAA in patients over 70 years has not been determined. Clinical correlation is essential. Serum or plasma thyroid stim ulating hormone (TSH) measurement (units/volume)Ordered By: Jeremiah Curtis on 07-17-2024 TSH Qn 3.170 uIU/mL 0.358-3.74 0 [facility] Serum or plasma urea nitroge n measurement (mass/volume)Ordered By: Jereimah Curtis on 07-17-2024 Urea nitrogen [Mass/Vol] 15 mg/dL 7-18 [facility] Sodium levelOrdered By: Maria Elena Curtis on 07-17-2024 Sodium [Moles/Vol] 139 mmol/L 136-145 [facility] TSH QnOrdered By: Jeremiah Curtis on 07-17-2024 Thyroid Stimulating Hormone (TSH) 3.170 uIU/mL 0.358-3.74 0 [facility] Thyroid Stim Hormone (TSH)on 07-17-2024 TSH 3.170 uIU/mL Normal 0.358-3.74 0 [facility] Comment on above: Performed By: #### L 501.080 #### [facility] [address] [place] [address], [address] White blood cell (WBC) count Ordered By: Jeremiah Curtis on 07-17-2024 WBC (Bld) [#/Vol] 10.1 10*3/uL 4.4-11.0 [facility] PT D/C Summary (1)on 025 PT D/C Summary (1) [facility] [address] [place] [address] / REHABILITATION SERVICES DISCHARGE SUMMARY MR#: [id number] Acct: [id number] Name: GRACIE LEMONS Rep #: [id number] : 1950 74 From: Gaviota Gillespie PT, Cert. MDT Referring Dr.: OUT OF TOWN DOCTOR Status: REG R CR Insurance: MEDICARE PART A B [employer] Discharge Summary D/C summary: It has been my pleasure to treat GRACIE LEMONS referred by ERICKA MELISSA, with the diagnosis of LUMBAR RADICULOPATHY for a total of 10 visit(s). Discharge Date: 06/29/24 Please see the following information for a summary of their discharge status. Subjective Subjective: PATIENT REPORTS THERAPY HAS BEEN GOING GOOD, HE ISN'T IN QUITE SO MUCH PAIN BUT HER STILL CAN'T WALK VERY FAR AT ALL. HE STATES HE STILL HASN'T HAD ANY MORE OF THE EPISODES OF PARALIZING WEAKNESS OR PAIN THAT WERE CAUSING HIS LEGS TO START TO GIVE OUT (HE STATES AT THESE TIMES HE WOULD LOWER HIMSELF TO THE GROUND AND AFTER A FEW SECONDS HE COULD GET BACK UP AND GO AGAIN). HE REPORTS THOSE EPISODES WERE TYPICALLY OCCURING WHEN IT WAS NICER OUT AND HE WAS TRYING TO WALK FROM THE HOUSE TO THE BARN (DOWN HILL - PRETTY STEEP) AND BACK (UP HILL - WHEN IT WOULD OCCUR) AND HE HASNT' TRIED TO GO THAT FAR SINCE STARTING PT. HE REPORTS COMPLIANCE WITH HIS HEP TO FATIGUE. PATIENT REPORTS HE HAS NOTICED HE CAN STAND UP OFF THE SOFA MUCH EASIER NOW THAN HE COULD BEFORE STARTING PT. Overall Improvement % Improvement: 10 Objective Objective/Function: PATIENT WAS SEEN TODAY FOR RE-ASSESSMENT OF PROGRESS TOWARD THE SET PT GOALS AND THE NEED FOR FURTHER PHYSICAL THERAPY VS READINESS FOR DISCHARGE. UPON EXAM TODAY THERE ARE NO SIGNIFICANT CHANGES IN PATIENTS GAIT AND PATIENT CONTINUES TO ARRIVE WITHOUT AD. HE REMAINS RESISTANT TO AD USE RECOMMENDATIONS. HE COMMUNICATES A GOOD UNDERSTANDING OF THE REASONING FOR THE RECOMMENDATION AND FOR ALL INSTRUCTIONS GIVEN TODAY AND IS EXPRESSING GRADITUDE FOR THE HELP WE HAVE GIVEN HIM. HE IS NOW ABLE TO DEMO INDEP SIT TO STAND WITHOUT UE ASSIST OR HAVING CHAIR SECURED BUT HE CAN ONLY COMPLETE X 2 BEFORE HIS LEGS FAIL HIM (30 STS TEST = 2). TUG TIME = 19.80 SEC WITHOUT AD OR LOB. PATIENT REPORTS HE ACTUALLY WENT INTO [employer] THE OTHER DAY TO SHOP WITH HIS BUT ONLY MADE IT TWO AILS. HE STATES THIS IS THE FIRST TIME IN A LONG TIME HE EVEN FELT HE COULD GO IN WITH HER. THIS A LONG WITH HIS IMPOVED LE FUNCTIONAL STRENGTH MAKES HIM A GOOD CANDIDATE TO CONTINUE PT TO TRY TO PROGRESS FURTHER BUT HE IS REQUESTING TO STOP PT AT THIS TIME. HE STATES THEY ARE GOING TO GO TO [place] SOON AND TRY TO GET HIS MRI MOVED UP BUT WILL CONTINUE HIS HEP. HE STATES HE WILL CONTACT HIS DOCTOR AND US IF HE FEELS HE NEEDS TO RETURN. Goals Goal 1:: DECREASE C/O BACK AND LE SX'S BY AT LEAST 50% TO EASE ADL'S. Goal Progress: Progressing slowly Goal 2:: IMPROVE STANDING AND WALKING FUNCTION Goal 3:: INSTRUCT IN PROPHYLAXIS Goal Progress: Progressing Plan Plan: D/C AT PATIENTS REQUEST. D/C Information d/c sentence: If there are questions or concerns regarding this patient's physical therapy, please feel free to call me at [phone]. Thank you for the referral of this patient. Sincerely, Gaviota Gillespie, PT, Cert MDT Balance/Gait/Functional tests Balance/Special Test Scores Oswestry Low Back Score: 15 Improvement % Improvement: 06/29/24 1114 CC: Dr. Cononr Kohli MD; ERICKA MELISSA EVELYN Signed Normal [facility] Stress Reporton 06-02-2024 Stress Report [facility] [address] [place] [address] MR#: [id number] Acct: [id number] Name: GRACIE LEMONS Rep #: [id number] : 1950 74 From: Leeanne Blanca MD Primary Care: Dr. Connor Kohli MD Status: REG CLI Referring Dr: Alyson Collier MD Sex: Rosa Bahena Stress Test Report Date: 06/02/2024 Procedure: Pharmacologic stress nuclear imaging study Indications: Coronary artery disease Consent: Per the patient Procedure: The patient underwent pharmacologic (Regadenoson) evaluation with a peak heart rate of 74 beats per minute (50%predicted maximal heart rate) and a peak blood pressure of 114/74 mmHg. The baseline ECG demonstrated normal sinus rhythm. EKG during lexiscan infusion revealed no significant ischemic changes. EKG post infusion revealed no significant ischemic changes [There were no cardiac dysrhythmias pretest, during pharmacologic infusion, or recovery]. [There was no complaint of chest discomfort during pharmacologic infusion or recovery]. The examination was discontinued secondary to completion of protocol. Impression: 1. Lexiscan stress test test is negative for Lexiscan infusion induced EKG changes of ischemia. 2. Lexiscan stress test test is negative for Lexiscan infusion induced chest pain. 3. Results of the nuclear portion of the test is as below Myocardial perfusion imaging study: Technique: The patient was injected with 15 millicuries of technetium 99m Cardiolite and subsequently rest SPECT Cardiolite nuclear imaging was obtained in the horizontal long, vertical long, and short axis views. The patient underwent pharmacologic [Regadenoson 0.4mg] evaluation. Please see above for details. The patient was injected with 45 millicuries of technetium 99m Cardiolite and subsequently stress SPECT Cardiolite nuclear imaging was obtained in the horizontal long, vertical long, and short axis views. A gated Cardiolite study at peak stress was obtained. Interpretation: Rest and stress SPECT Cardiolite nuclear imaging status post realignment, normalization, and attenuation correction demonstrate no evidence of significant ischemia or infarction. Gated images reveal no significant regional wall motion abnormalities. The reported LVEF is 67%. Impression: 1. There is no evidence of significant ischemia or infarction. 2. Estimated ejection fraction is 67%. This note was generated with G.I. Windowsation software. It may contain incorrect words, spelling, and punctuation that were not noted in checking the note before signing. 06/02/24 1418 Date Leeanne Blanca MD CC: Dr. Alyson Collier MD; Dr. Connor Kohli MD Date Dictated: 06/02/241412 Date Transcribed: 06/02/241412 Gear Roller: VANIA Signed Normal [facility] Echo Completeon 05-29-[address] [facility] [address] [place] [address] Echo Complete 05/29/24 0859 MR#: [id number] Acct: [id number] Name: GRACIE LEMONS Rep #: [id number] : 1950 74 From: Leeanne Blanca MD Attending Dr: Dr. Alyson Collier MD Status: REG CLI Ordering Dr: Alyson Collier MD Date: 05/29/24 Location: [facility] Sex: M C Admitted: Reason For Study: CAD/ASHD Procedure This was a 2D Doppler, Color Flow transthoracic echocardiogram. Exam performed in department. Left Ventricle Normal LV size. The estimated ejection fraction is 60 %. No evidence for diastolic dysfunction. No regional wall motion abnormalities noted. Right Ventricle Normal RV size. Normal systolic function. Atria The left and right atria are normal. No doppler evidence for ASD. Mitral Valve There is no mitral valve stenosis. No mitral valve insufficiency. Tricuspid Valve There is no tricuspid stenosis. Trivial tricuspid valve insufficiency. Unable to estimate RV systolic pressure due to insufficient tricuspid regurgitant envelope. Aortic Valve Aortic sclerosis, no stenosis. Trisinus/trileaflet aortic valve. There is no aortic stenosis. No aortic valve insufficiency. Pulmonic Valve There is no pulmonic valvular stenosis. No pulmonic valve insufficiency. Great Vessels Normal aortic root. Pericardium/Pleural No pericardial effusion. MMode/2D Measurements Calculations LVOT diam: 2.1 cm LAV(MOD-bp): 32.4 ml LVAd ap4: 24.9 cm2 LVOT area: 3.6 cm2 LAV(MOD-bp) Indexed: 15.8 ml/m2 LVLd ap4: 8.2 cm LAV(MOD-sp2): 26.2 ml EDV(MOD-sp4): 67.0 ml LAV(MOD-sp4): 36.9 ml EDV(sp4-el): 64.8 ml LVAs ap4: 14.5 cm2 LVLs ap4: 6.9 cm ESV(MOD-sp4): 26.3 ml ESV(sp4-el): 26.0 ml EF(MOD-sp4): 60.7 % EF(sp4-el): 59.9 % SV(MOD-sp4): 40.6 ml SV(sp4-el): 38.8 ml LA A4 area: 14.5 cm2 SI(MOD-sp4): 19.8 ml/m2 LA dimension(2D): 3.1 cm RA A4 area: 10.2 cm2 Time Measurements MV dec time: 0.24 sec Doppler Measurements Calculations MV E max oriana: 67.5 cm/sec Lat Peak E' Oriana: 9.2 cm/sec Med Peak E' Oriana: 5.0 cm/sec MV A max oriana: 90.3 cm/sec E/E' lat: 7.3 E/E' med: 13.4 MV E/A: 0.75 MV V2 max: 93.6 cm/sec MV dec slope: 287.4 cm/sec2 Ao V2 max: 106.2 cm/sec MV max P.5 mmHg Ao max P.5 mmHg MV V2 mean: 48.0 cm/sec Ao V2 mean: 69.9 cm/sec MV mean P.2 mmHg Ao mean P.3 mmHg MV V2 VTI: 36.8 cm Ao V2 VTI: 24.3 cm MVA(VTI): 1.8 cm2 AV (velocity ratio): 0.77 BRENNAN(I,D): 2.7 cm2 BRENNAN(V,D): 2.7 cm2 LV V1 max: 79.0 cm/sec SV(LVOT): 66.4 ml PA V2 max: 72.4 cm/sec LV V1 max P.5 mmHg PA V2 mean: 46.1 cm/sec LV V1 mean P.3 mmHg LV V1 mean: 53.5 cm/sec LV V1 VTI: 18.6 cm ECHO/Echo Complete Interpretation Summary The estimated ejection fraction is 60 %. No evidence for diastolic dysfunction. ___ Ordering Physician: Alyson Collier Referring Physician: Alyson Collier Performed By: Frieda Rondon RCS 06/02/24 1342 Date Leeanne Blanca MD CC: Dr. Alyson Collier MD; Dr. Connor Kohli MD Date Dictated: 05/29/24 0859 Date Transcribed: 06/02/24 1342 Gear Roller: Signed Normal [facility] CBC W/Diff, Automatedon 12-0 PATH REV Reviewed Normal [facility] Comment on above: Result Comment: REAC TIVE LYMPHOCYTES PRESENT Clinical correlation suggested. Angelo Thomas D.O. 05/25/24 AMENDED REPORT 05/25/24 1438 PATH REV previously reported as: October Performed By: #### L 500.4100, L500.4050, L506.1000, L501.9985 #### [facility] [address] [place], [address] CNOVon 05-24-2024 [facility] ----- GRACIE LEMONS ([id number]) 1950 M Date Time Provider Department 05/24/24 1:30 PM [facility] [[email or web address]] During your visit today, we recorded the following information about you: Temperature Pulse Respiration Blood pressure 97.8 degrees 80/minute 16/minute 118/66 Weight 98.3 kg Christofer Alston APRN.TECHNICAL TESTING ENGINEER 05/24/2024 1:59 PM Signed This note was created using 3[employer] Mediariter. Subjective Gracie Lemons is a 74 year old male. HPI Several days ago pt noticed some pain and swelling to the left nares. Since then the pain and swelling has migrated to the left side of his nose and right cheek. Review of Systems Constitutional: Negative for fever. Skin: Positive for color change. Objective BP 118/66 Pulse 80 Temp 36.6 ?C (97.8 ?F) Resp 16 Wt 98.3 kg (216 lb 11.4 oz) SpO2 95% Physical Exam Vitals and nursing note reviewed. Constitutional: General: He is not in acute distress. Appearance: Normal appearance. He is not ill-appearing. HENT: Head: Normocephalic. Comments: Erythematous and swollen area to the nose and right side of face extending to just below the right eye. Mouth/Throat: Mouth: Mucous membranes are moist. Eyes: Conjunctiva/sclera: Conjunctivae normal. Cardiovascular: Rate and Rhythm: Normal rate and regular rhythm. Pulmonary: Effort: Pulmonary effort is normal. Breath sounds: Normal breath sounds. Musculoskeletal: General: Normal range of motion. Cervical back: Normal range of motion. Skin: General: Skin is warm and dry. Neurological: General: No focal deficit present. Mental Status: He is alert. Psychiatric: Mood and Affect: Mood normal. Behavior: Behavior normal. Assessment and Plan ASSESSMENT/PLAN: 1. Facial cellulitis - ICD9: 682.0, ICD10: L03.211 Patient does have a large amount of swelling and erythema to the right cheek and nose. I discussed with family I was concerned about periorbital cellulitis versus abscess versus simple cellulitis. I discussed with them that I felt that patient needed higher level of evaluation and recommended going to the nearest emergency department for evaluation. After discussion patient was agreeable to go to [place] emergency department for evaluation. Christofer Alston APRN.TECHNICAL TESTING ENGINEER Allergies As of Date: 05/24/2024 Noted Allergy Reaction PENICILLINS 04/04/2005 TYLENOL (ACETAMINOPHEN) 04/04/2005 Date Reviewed: 05/24/2024 Reviewed by: Christofer Alston APRN.TECHNICAL TESTING ENGINEER - Fully Assessed Reason for Visit: Facial Swelling [1292] Cmt: right side facial swelling, redness and painful x 1, started inside of left side nose now right side face swelling Primary Visit Diagnosis:Facial cellulitis [L03.211] Prescriptions as of 05/24/2024 - pantoprazole sodium (PROTONIX ORAL) Protonix Oral - nortriptyline (PAMELOR) 25 mg capsule Take 1 capsule by mouth daily at bedtime. - tamsulosin (FLOMAX) 0.4 mg Take 2 capsules by mouth daily at bedtime. - lisinopril (ZESTRIL) 20 mg tablet Take 1 tablet by mouth once daily. - finasteride (PROSCAR) 5 mg tablet Take 1 tablet by mouth once daily. - oxybutynin ER (DITROPAN XL) 10 mg 24 hr tablet - clopidogrel bisulfate (PLAVIX ORAL) 75 mg. - ezetimibe (ZETIA) 10 mg tablet Take 1 tablet by mouth daily at bedtime. - metoprolol tartrate, short acting, (LOPRESSOR) 100 mg tablet 100 mg two times a day. - levothyroxine (SYNTHROID) 50 mcg tablet Take 1 tablet by mouth once daily. - glimepiride (AMARYL) 2 mg tablet 2 mg daily with breakfast. - gabapentin (NEURONTIN) 300 mg capsule Take 300 mg by mouth two times a day. - SYNJARDY XR 12.5-1,000 mg XR tab Take 12.5-1,000 mg by mouth. - Cholecalciferol, Vitamin D3, 50 mcg (2,000 unit) cap Take 2 capsules by mouth daily at bedtime. - TRULICITY 3 mg/0.5 mL pen injector - adalimumab 10 mg/0.1 mL subcutaneous syringe kit (NICOIRA (CF)) Inject subcutaneously. - LOVASTATIN 20 MG TAB Take one(1) tablet two(2) times daily. - ACETAZOLAMIDE 250 MG TAB Take one(1) tablet daily. - HYDROCODONE-ACETAMINOPHEN 5 MG-500 MG TAB 1 to 2 po q 4 hours prn - PREDNISONE 1 MG TAB Take 2 tabs at HS with a 5mg tab - LOTREL 10 MG-20 MG CAP Take one(1) tablet daily. - ACETAZOLAMIDE 250 MG TAB Take one(1) tablet daily. - PREDNISONE 5 MG TAB Take one(1) tablet daily at bedtime. - TESTOSTERONE CYPIONATE 200 MG/ML IM OIL One ml/200mg IM every other week - ZETIA 10 MG TAB Take one(1) tablet daily. Problem List As Of Date 05/24/2024 Noted Resolved MALAISE AND FATIGUE NEC [R53.81, R53.83] IMPAIRED FASTING GLUCOSE [R73.01] CORTICOADRENAL INSUFFIC [255.4] 04/05/2005 Encounter Status:Closed by CHRISTOFER ALSTON on 05/24/24 Normal [facility] Emergency Department Summary on 05-24-2024 Emergency Department Summary [facility] Medical Records Department [address] [place] [address] Emergency Department Summary 05/24/24 MR#: [id number] Acct: [id number] Name: CRISTOGRACIE JOY Rep #: [id number] : 1950 74 From: Edilberto Manuel DO PCP: Dr. Connor Kohli MD Status:DEP ER Location: ED [facility] History of Present Illness Chief Complaint: Other, Pain/Inj Narrative Narrative: Patient is a 74-year-old male with history of CAD, hypertension hyperlipidemia diabetes who is on Plavix presents to the [facility] with right-sided facial redness and swelling. Patient was seen here 2 days ago, diagnosed with a flulike symptoms, patient was extremely dizzy at that time and received a CTA of the head and neck. This was negative. Patient is he woke up today, his right side of his face was red and swollen. Since has been up has been improved. Patient denies any fever chills, he went to urgent care who they referred to the emergency department. Narrative Narrative: Patient is a 74-year-old male with history of CAD, hypertension hyperlipidemia diabetes who is on Plavix presents to the emergency department with right-sided facial redness and swelling. Patient was seen here 2 days ago, diagnosed with a flulike symptoms, patient was extremely dizzy at that time and received a CTA of the head and neck. This was negative. No longer complains of dizziness. Patient is he woke up today, his right side of his face was red and swollen. Since has been up has been improved. Patient denies any fever chills, he went to urgent care who they referred to the emergency department. 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 Chest pain Fatigue PALOMO (dyspnea on exertion) Sinus tachycardia COVID-19 Presence of stent in coronary artery ( 04/30/13) Pure hypercholesterolemia Essential hypertension Diabetes Claudication in peripheral vascular disease Left ventricular hypertrophy Paroxysmal atrial fibrillation Atherosclerotic heart disease of [place] coronary artery without angina pectoris Home Medications ???Medication ???Instructions ???Recorded ???Last Taken ???Type nortriptyline 25 mg capsule 25 mg PO QHS nerve pain 04/23/13 Unknown History pantoprazole 40 mg tablet,delayed 40 mg PO DAILY acid reflux 04/23/13 10/15/16 History release finasteride 5 mg tablet 5 mg PO DAILY prostate 10/12/16 Unknown History cholecalciferol (vitamin D3) 25 5,000 unit PO DAILY DEFICIENCY 05/05/18 Unknown History mcg (1,000 unit) capsule nitroglycerin 0.4 mg sublingual 0.4 mg sublingual Q5-15M PRN chest 10/26/20 Unknown Rx tablet pain #25 tabs oxybutynin chloride 10 mg 10 mg PO QPM 05/21/22 Unknown History tablet,extended release 24 hr Disability Placard #1 ea 11/29/22 Unknown Rx empagliflozin 12.5 mg-metformin ER 2 tab PO DAILY Diabetes 05/16/23 Unknown History 1,000 mg tablet,extended rel 24 hr (Synjardy XR) levothyroxine 50 mcg tablet 50 mcg PO DAILY 05/16/23 Unknown History lisinopril 20 mg tablet See Rx Instructions .Route 07/15/23 Unknown Rx .COMPLEX #90 tabs Left AFO #1 ea 09/30/23 Unknown Rx glimepiride 2 mg tablet 2 mg PO QDAY 12/02/23 Unknown History tamsulosin 0.4 mg capsule 0.4 mg PO QDAY 12/02/23 Unknown History ezetimibe 10 mg tablet 10 mg PO QHS to lower cholesterol 12/30/23 Unknown Rx #90 tabs gabapentin 300 mg capsule 300 mg PO BID 01/30/24 Unknown History clopidogrel 75 mg tablet 75 mg PO DAILY #90 tabs 03/19/24 Unknown Rx metoprolol tartrate 100 mg tablet 100 mg PO BID #180 TABLETS 05/04/24 Unknown Rx doxycycline hyclate 100 mg capsule 100 mg PO BID #20 caps 05/24/24 Unknown Rx dulaglutide 3 mg/0.5 mL mg subcut 05/24/24 Unknown History subcutaneous pen injector (Trulicity) glimepiride 1 mg tablet PO 05/24/24 Unknown History rosuvastatin 10 mg tablet 10 mg PO QHS 05/24/24 Unknown History Allergy/AdvReac Type Severity Reaction Status Date / Time acetaminophen (From Tylenol) Allergy Severe Anaphylaxis Verified 05/24/24 14:10 Penicillins Allergy Severe Other Verified 05/24/24 14:10 hydromorphone HCl (From AdvReac Severe Other Verified 05/24/24 14:10 Dilaudid) Family History Mother CAD (coronary artery disease) Sister CAD (coronary artery disease) Father Heart disease Surgical History History of lumbosacral spine surgery Presence of coronary angioplasty implant a (more content not included)... Normal [facility] 12 Lead EKGon 05-22-2024 12 Lead EKG [facility] Cardiovascular Services [address] [place] [address] 12 Lead EKG 05/22/242057 MR#: [id number] Acct: [id number] Name: GRACIE LEMONS Rep #: [id number] : 1950 74 From: Jg Colindres MD Attending Dr: Status: DEP ER Ordering Dr: Chito Munoz DO Date: 05/22/24 Location: ED Sex: M C Admitted: Test Reason : DYSRHYTHMIA Blood Pressure : */* mmHG Vent. Rate : 87 BPM Atrial Rate : 87 BPM P-R Int : 146 ms QRS Dur : 86 ms QT Int : 370 ms P-R-T Axes : 19 13 36 degrees QTcB Int : 445 ms Normal sinus rhythm inferior lateral [place]-? age Abnormal ECG Confirmed by Jg Colindres ([id number]), editorial cartoonist LIZBETH SAMANIEGO ([id number]) on 05/25/2024 6:47:38 AM Referred By: Confirmed By: Jg Colindres 05/25/24 0647 Date Jg Colindres MD CC: Dr. Connor Kohli MD; Dr. Chito Munoz DO Signed Normal [facility] Absolute neutrophil countOrd ered By: ED PROVIDER on 05-22-2024 Neutrophils (Bld) [#/Vol] 8.7 10*3/uL High 2.0-7.7 [facility] Bacteria LM.HPF (Urine sed) [#/Area]Ordered By: Chito Munoz on 05-22-2024 Urine Bacteria RARE /hpf None Seen [facility] Basic Metabolic Profile (BMP )on 05-22-2024 BUN/CRE 9.6 RATIO Low 10-20 [facility] Comment on above: Performed By: #### L 500.4100, L500.4050, L506.1000, L501.9985 #### [facility] [address] [place], [address] CA,Total 9.0 mg/dL Normal 8.5-10.1 [facility] Comment on above: Performed By: #### L 500.4100, L500.4050, L506.1000, L501.9985 #### [facility] [address] [place], [address] Chloride [Moles/Vol] 103 mmol/L Normal 98-107 [facility] Comment on above: Performed By: #### L 500.4100, L500.4050, L506.1000, L501.9985 #### [facility] [address] [place], [address] CO2 [Moles/Vol] 24.0 mmol/L Normal 21.0-32.0 [facility] Comment on above: Performed By: #### L 500.4100, L500.4050, L506.1000, L501.9985 #### [facility] [address] [place], [address] Creatinine [Mass/Vol] 1.25 mg/dL Normal 0.70-1.30 [facility] Comment on above: Result Comment: The validity of the calculated GFR GFRAA in patients over 70 years has not been determined. Clinical correlation is essential. Performed By: #### L 500.4100, L500.4050, L506.1000, L501.9985 #### [facility] [address] [place], [address] EST GFR - AA 73 mL/min Normal >60 [facility] Comment on above: Result Comment: Afri can [place] GFR Calc Performed By: #### L 500.4100, L500.4050, L506.1000, L501.9985 #### [facility] [address] [place], [address] GAP 8 Normal 5-15 [facility] Comment on above: Performed By: #### L 500.4100, L500.4050, L506.1000, L501.9985 #### [facility] [address] [place], [address] GFR/1.73 sq M.predicted among non-blacks MDRD (S/P/Bld) [Vol rate/Area] 60 mL/min/{1.73_m2} Normal >60 [facility] Comment on above: Result Comment: Non- GFR Calc Performed By: #### L 500.4100, L500.4050, L506.1000, L501.9985 #### [facility] [address] [place], [address] Glucose [Mass/Vol] 173 mg/dL High 74-106 [facility] Comment on above: Result Comment: Fast ing Glucose result greater than or equal to 126 mg/dL suggests DIABETES MELLITUS per A.D.A. criteria. Performed By: #### L 500.4100, L500.4050, L506.1000, L501.9985 #### [facility] [address] [place], [address] Potassium [Moles/Vol] 3.5 mmol/L Normal 3.5-5.1 [facility] Comment on above: Performed By: #### L 500.4100, L500.4050, L506.1000, L501.9985 #### [facility] [address] [place], [address] Sodium [Moles/Vol] 135 mmol/L Low 136-145 [facility] Comment on above: Performed By: #### L 500.4100, L500.4050, L506.1000, L501.9985 #### [facility] [address] [place], [address] Urea nitrogen [Mass/Vol] 12 mg/dL Normal 7-18 [facility] Comment on above: Performed By: #### L 500.4100, L500.4050, L506.1000, L501.9985 #### [facility] [address] [place], [address] Basophil percentageOrdered B y: ED PROVIDER on 05-22-2024 Basophils/100 WBC (Bld) 0.5 % 0-1 [facility] Bedside Glucoseon 05-22-2024 FINGERSTICK GLU 178 mg/dL High 74-106 [facility] Comment on above: Result Comment: HELDER ADKINS OF PATIENT CARE PER NURSING PROTOCOL Performed By: #### L 501.080 #### [facility] [address] [place], [address] Bilirubin Test strip Ql (U)O rdered By: Chito Munoz on 05-22-2024 Bilirubin Ql (U) Negative Negative [facility] Blood urea nitrogen (BUN)/cr eatinine ratioOrdered By: ED PROVIDER on 05-22-2024 Urea nitrogen/Creatinine [Mass ratio] 9.6 mg/mg Low 10-20 [facility] CTA Head AND Neck W/ Contras ton 05-22-2024 CTA Head AND Neck W/ Contrast [facility] Imaging Services [address] [place] [address] CTA Head AND Neck W/ Contrast MR#: [id number] Acct: [id number] Name: GRACIE LEMONS Rep #: [id number] : 1950 M 74 From: Live booth MD PCP: Dr. Connor Kohli MD Status: REG ER Study: CTA Head AND Neck W/ Contrast Date of Exam: Exam# [id number] Ordering Dr: Chito Munoz DO [id number] INDICATION: dizziness EXAMINATION: CT BRAIN WITHOUT CONTRAST, CTA HEAD, AND CTA NECK TECHNIQUE: Noncontrast axial images were obtained of the brain. Subsequently, routine carotid CT angiogram protocol was performed without and with IV contrast. In addition, images were obtained of the [place] of [place]. NASCET criteria using the distal ICAs for comparison were used for evaluation of stenoses. 3D reconstructions were reviewed. The protocol utilizes one or more of the following dose reduction techniques: automated exposure control, adjustment of mA and/or kV according to patient size,and/or use of iterative reconstruction technique. IV Contrast dosage and agent: 100 mL of Isovue-370 COMPARISON: Prior study dated: MRI performed 11/03/2015 FINDINGS: --CT BRAIN WITHOUT CONTRAST: BRAIN PARENCHYMA: No intra- or extra-axial hemorrhage. No evidence of acute infarct. No intracranial mass or mass effect. There is preservation of the causey/white matter interface. Posterior fossa structures are unremarkable. Prior right parietal craniectomy. Underlying encephalomalacia along the sylvian fissure, greatest in the right temporal lobe. This is similar to prior MRI. Associated ex vacuo dilatation of the right lateral ventricle. CSF SPACES: Appropriate for age. No hydrocephalus. Basal cisterns are patent. CALVARIUM, SKULL BASE, PARANASAL SINUSES AND MASTOID AIR CELLS: Clear. No discrete lytic or blastic abnormalities. --CTA NECK: AORTIC ARCH AND BRANCHES: Normal anatomy, patent. Two-vessel branching configuration of the arch. RIGHT CCA: No occlusion, significant stenosis or dissection. RIGHT ICA: No occlusion, significant stenosis or dissection. LEFT CCA: No occlusion, significant stenosis or dissection. LEFT ICA: No occlusion, significant stenosis or dissection. Mild atherosclerotic calcification at the origin without flow-limiting stenosis. RIGHT VERTEBRAL ARTERY: No occlusion, significant stenosis or dissection. LEFT VERTEBRAL ARTERY: No occlusion, significant stenosis or dissection. NECK SOFT TISSUES: Unremarkable. --CTA HEAD: --Anterior circulation: ICAs: No significant stenosis at the intracranial/visualized segments. Mild atherosclerotic calcification bilaterally. ACAs: No significant stenosis at the visualized segments. Diminutive right A1 segment. ACOM: Present. MCAs: No significant stenosis at the visualized segments. --Posterior circulation: PCOMs: Patent bilaterally, diminutive on the right. 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 BASILAR ARTERY: No significant stenosis. VERTEBRAL ARTERIES: No significant stenosis at the intradural/visualized segments. No evidence of intracranial aneurysm or vascular malformation. CT/CTA Head AND Neck W/ Contrast IMPRESSION: No acute intracranial finding. 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 No large vessel occlusion or flow-limiting stenosis. Electronically Signed: Live Quiroz MD at 22:44 EST , CC: Dr. Connor Kohli MD; Dr. Chito Munoz DO Gear Roller: Signed Normal [facility] Carbon dioxide measurementOr dered By: ED PROVIDER on 05-22-2024 CO2 [Moles/Vol] 24.0 mmol/L 21.0-32.0 [facility] Chest 1 View (Portable)on Chest 1 View (Portable) [facility] Imaging Services [address] [place] [address] [id number] Chest 1 View (Portable) MR#: [id number] Acct: [id number] Name: GRACIE LEMONS Rep #: [id number] : 1950 M 74 From: Zain Jacobs PCP: Dr. Connor Kohli MD Status: PRE ER Study: Chest 1 View (Portable) Date of Exam: 05/22/24 Exam# [id number] Ordering Dr: Merritt Wilson [id number] INDICATION: Stroke EXAMINATION/TECHNIQUE: X-RAY - XR Chest 1 View COMPARISON: 01/29/2022 FINDINGS: LIFE-SUPPORT AND LINES: 1. None HEART AND VESSELS: The cardiac silhouette, pulmonary vasculature have normal appearance. No evidence of congestive failure. LUNGS AND PLEURAL SPACES: Lungs are clear. No focal infiltrate, consolidation or effusions. No evidence of pneumothorax. Chronic interstitial changes at the LEFT lung base which appears stable. MEDIASTINUM AND HILAR REGIONS: No masses adenopathy noted. No areas of calcification. Visualized upper airway is normal in position. BONY ELEMENTS: No acute bony changes noted. RAD/Chest 1 View (Portable) IMPRESSION: 1. Stable chronic interstitial changes at the LEFT lung base. Remaining lung zones are clear. 2. No evidence of congestive failure Electronically Signed: Zain Hawkins MD at 21:15 EST , CC: Dr. Connor Kohli MD; ED PHYSICIAN PROVIDER Gear Roller: Signed Normal [facility] Chloride measurementOrdered By: ED PROVIDER on 05-22-2024 Chloride [Moles/Vol] 103 mmol/L 98-107 [facility] Emergency Department Summary on 05-22-2024 Emergency Department Summary [facility] Medical Records Department [address] [place] [address] Emergency Department Summary 05/22/24 MR#: [id number] Acct: [id number] Name: GRACIE LEMONS Rep #: [id number] : 1950 74 From: Chito Sanchez PCP: Dr. Connor Kohli MD Status:DEP ER Location: ED HPI History of Present Illness Chief Complaint: Dizziness Informant: patient and spouse/S.O. Onset/Context/Timing Onset: Today Narrative Narrative: Right anterior with spouse for evaluation not feeling well after waking up today. He states feeling off balance falling down. No injuries. He states last time he fell is reaching for something. No spinning sensation. He states had a fever 100.2. History of BPH had trouble urinating yesterday however urinated normal after restarting his Flomax. No vomiting or diarrhea. Chronic intermittent cough. History of meningioma 2002 with surgical resection he had a subsequent stroke from the procedure, there was no residual deficits. Since then has had neuropathy left lower leg with weakness due to back issues. 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 Chest pain Fatigue PALOMO (dyspnea on exertion) Sinus tachycardia COVID-19 Presence of stent in coronary artery ( 04/30/13) Pure hypercholesterolemia Essential hypertension Diabetes Claudication in peripheral vascular disease Left ventricular hypertrophy Paroxysmal atrial fibrillation Atherosclerotic heart disease of [place] coronary artery without angina pectoris Home Medications ???Medication ???Instructions ???Recorded ???Last Taken ???Type nortriptyline 25 mg capsule 25 mg PO QHS nerve pain 04/23/13 Unknown History pantoprazole 40 mg tablet,delayed 40 mg PO DAILY acid reflux 04/23/13 10/15/16 History release finasteride 5 mg tablet 5 mg PO DAILY prostate 10/12/16 Unknown History cholecalciferol (vitamin D3) 25 5,000 unit PO DAILY DEFICIENCY 05/05/18 Unknown History mcg (1,000 unit) capsule adalimumab 10 mg/0.2 mL 40 mg subcut Q2W arthritis 10/21/18 Unknown History subcutaneous syringe kit (Humira) nitroglycerin 0.4 mg sublingual 0.4 mg sublingual Q5-15M PRN chest 10/26/20 Unknown Rx tablet pain #25 tabs oxybutynin chloride 10 mg 10 mg PO QPM 05/21/22 Unknown History tablet,extended release 24 hr Disability Placard #1 ea 11/29/22 Unknown Rx empagliflozin 12.5 mg-metformin ER 2 tab PO DAILY Diabetes 05/16/23 Unknown History 1,000 mg tablet,extended rel 24 hr (Synjardy XR) levothyroxine 50 mcg tablet 50 mcg PO DAILY 05/16/23 Unknown History lisinopril 20 mg tablet See Rx Instructions .Route 07/15/23 Unknown Rx .COMPLEX #90 tabs Left AFO #1 ea 09/30/23 Unknown Rx dulaglutide 0.75 mg/0.5 mL 0.75 mg subcut QWEEK 12/02/23 Unknown History subcutaneous pen injector ([facility]) glimepiride 2 mg tablet 2 mg PO QDAY 12/02/23 Unknown History tamsulosin 0.4 mg capsule 0.4 mg PO QDAY 12/02/23 Unknown History ezetimibe 10 mg tablet 10 mg PO QHS to lower cholesterol 12/30/23 Unknown Rx #90 tabs gabapentin 300 mg capsule 300 mg PO BID 01/30/24 Unknown History clopidogrel 75 mg tablet 75 mg PO DAILY #90 tabs 03/19/24 Unknown Rx metoprolol tartrate 100 mg tablet 100 mg PO BID #180 TABLETS 05/04/24 Unknown Rx Allergy/AdvReac Type Severity Reaction Status Date / Time acetaminophen (From Tylenol) Allergy Severe Anaphylaxis Verified 05/22/24 19:52 Penicillins Allergy Severe Other Verified 05/22/24 19:52 hydromorphone HCl (From AdvReac Severe Other Verified 05/22/24 19:52 Dilaudid) Family History Mother CAD (coronary artery disease) Sister CAD (coronary artery disease) Father Heart disease Surgical History History of lumbosacral spine surgery Presence of coronary angioplasty implant and graft ( 04/30/13) History of resection of meningioma Hx of cataract surgery History of lumbar surgery Social History Smoking Status: Never smoker alcohol intake: never substance use type: does not use caffeine: Yes Type: carbonated beverages Number of servings: 1 what type of physical activity do you participate in: none ROS ROS ED Constitutional Constitutional ED: Reports fever(s); Denies chills or sweats Eyes Eyes: Denies change in vision ENT ENT ED: Denies dysphagia or sore throat Cardiovascular Cardiovascular: Denies ches (more content not included)... Normal [facility] Eosinophil percentageOrdered By: ED PROVIDER on 05-22-2024 Eosinophils/100 WBC (Bld) 0.8 % 0-5 [facility] Epithelial cells.renal LM.HP F (Urine sed) [#/Area]Ordered By: Chito Munoz on 05-22-2024 Urine Renal Epithelial Cells 0-5 SEEN /hpf 0-5 [facility] Epithelial cells.squamous LM Ql (Urine sed)Ordered By: Chito Munoz on 05-22-2024 Epithelial cells.squamous LM.HPF (Urine sed) [#/Area] 0 /[HPF] 0-5 [facility] Erythrocyte distribution wid th ratioOrdered By: ED PROVIDER on 05-22-2024 Erythrocyte distribution width (RBC) [Ratio] 13.1 % 11.6-14.6 [facility] Erythrocyte distribution wid th standard deviationOrdered By: ED PROVIDER on 05-22-2024 Erythrocyte distribution width (RBC) [Entitic vol] 45.0 fL High 35.1-43.9 [facility] Estimated glomerular filtrat ion rate (GFR) AmericanOrdered By: ED PROVIDER on 05-22-2024 Estimated GFR (MDRD) Amer 73 mL/min >60 [facility] Comment on above: GFR Calc Glomerular filtration rate ( GFR) estimationOrdered By: ED PROVIDER on 05-22-2024 Estimated GFR (MDRD) Non-Af Amer 60 mL/min >60 [facility] Comment on above: Non- GFR Calc Glucose Ql (U)Ordered By: Ross Munoz on 05-22-2024 Glucose (U) [Mass/Vol] 1000 mg/dL High Normal [facility] Glucose measurementOrdered B y: ED PROVIDER on 05-22-2024 Glucose [Mass/Vol] 173 mg/dL High 74-106 [facility] Comment on above: Fasting Glucose resu lt greater than or equal to 126 mg/dL suggests DIABETES MELLITUS per A.D.A. criteria. Glucose measurement at [facility] deOrdered By: ED PROVIDER on 05-22-2024 Bedside Glucose (Misc Panel) 178 mg/dL High 74-106 [facility] Comment on above: MANAGEMENT OF PATIEN T CARE PER NURSING PROTOCOL Hematocrit Auto (Bld) [Volum e fraction]Ordered By: ED PROVIDER on 05-22-2024 Hematocrit (Bld) [Volume fraction] 44.3 % 40-54 [facility] Hemoglobin measurementOrdere d By: ED PROVIDER on 05-22-2024 Hemoglobin (Bld) [Mass/Vol] 15.2 g/dL 13.0-16.5 [facility] Immature granulocytes/100 WB C Auto (Bld)Ordered By: ED PROVIDER on 05-22-2024 Immature granulocytes/100 WBC (Bld) 0.500 % 0.0-0.9 [facility] Comment on above: IG% - Immature Granu locytes (promyelocytes, myelocytes and metamyelocytes) > 1% indicates that a LEFT SHIFT is Present. Influenza virus A and B and SARS-CoV-2 (COVID-19) and Respiratory syncytial virus RNAOrdered By: Chito Munoz on 05-22-2024 SARS-CoV-2 (COVID-19) RNA JIHAN+probe Ql (Unsp spec) [facility] International normalized rat io (INR) calculationOrdered By: ED PROVIDER on 05-22-2024 INR Coag (Bld) [Relative time] 1.1 {INR} [facility] Ketones Test strip Ql (U)Ord ered By: Chito Munoz on 05-22-2024 Ketones Ql (U) 15 mg/dl High Negative [facility] - Hematology and Cell countsOrdered By: ED PROVIDER on 05-22-2024 Anisocytosis Ql (Bld) RARE [facility] Lymphocytes Auto (Unsp spec) [#/Vol]Ordered By: ED PROVIDER on 05-22-2024 Lymphocytes (Bld) [#/Vol] 2.47 10*3/uL 0.83-4.51 [facility] Lymphocytes/100 WBC Auto (Un sp spec)Ordered By: ED PROVIDER on 05-22-2024 Lymphocytes/100 WBC (Bld) 18.8 % Low 19-41 [facility] M100.678on 05-22-2024 M100.678 Pending SARS-CoV-2 (COVID 19) Negative INFLUENZA A Negative INFLUENZA B Negative RSV PCR Negative Normal [facility] Comment on above: Performed By: #### M 100.678 ####[facility] [id number] [facility] [place], [address] MCV (mean corpuscular volume ) determinationOrdered By: ED PROVIDER on 05-22-2024 MCV (RBC) [Entitic vol] 94.5 fL High 80-94 [facility] Macrocytes Ql (Bld)Ordered B y: ED PROVIDER on 05-22-2024 Macrocytosis RARE [facility] Manual differential comment Cain (Bld) [Interp]Ordered By: ED PROVIDER on 05-22-2024 Differential Comment SEE COMMENT [facility] Comment on above: MONOCYTOSIS NOTED Mean corpuscular hemoglobin (MCH) determinationOrdered By: ED PROVIDER on 05-22-2024 MCH (RBC) [Entitic mass] 32.4 pg High 27.0-32.0 [facility] Mean corpuscular hemoglobin concentration (MCHC) determinationOrdered By: ED PROVIDER on 05-22-2024 MCHC (RBC) [Mass/Vol] 34.3 g/dL 32-36 [facility] Mean platelet volume determi nationOrdered By: ED PROVIDER on 05-22-2024 Platelet mean volume (Bld) [Entitic vol] 10.7 fL 6.2-12.0 [facility] Microscopic analysis of urin e for red blood cells (RBC)Ordered By: Chito Munoz on 05-22-2024 Urine RBC 0-5 SEEN /hpf 0-5 [facility] Monocyte percentageOrdered B y: ED PROVIDER on 05-22-2024 Monocytes/100 WBC (Bld) 13.1 % High 0-10 [facility] Mucus LM Ql (Urine sed)Order ed By: Chito Munoz on 05-22-2024 Mucus Ql (Urine sed) 0 SEEN /hpf [facility] Neutrophil percentageOrdered By: ED PROVIDER on 05-22-2024 Neutrophils/100 WBC (Bld) 66.3 % 47-70 [facility] Nitrite Test strip Ql (U)Ord ered By: Chito Munoz on 05-22-2024 Nitrite Ql (U) Negative Negative [facility] Nucleated red blood cell per centageOrdered By: ED PROVIDER on 05-22-2024 Nucleated RBC/100 WBC (Bld) [Ratio] 0 % 0-5 [facility] Partial Thromboplast Timeon 05-22-2024 aPTT Coag (Bld) [Time] 27.1 s Normal 24.1-36.2 [facility] Comment on above: Performed By: #### L 500.4100, L500.4050, L506.1000, L501.9985 #### [facility] [address] [place], [place], [id number] Pathologist review Cain (Unsp spec) [Interp]Ordered By: Chito Munoz on 05-22-2024 Differential Pathologist's Review Reviewed [facility] Comment on above: Previous reported re sult: Luisa gerard Edited by: JAMIE on 05/25/24:1438REACTIVE LYMPHOCYTES PRESENTClinical correlation suggested.Angelo Thomas D.O. 05/25/24 AMENDED REPORT 05/25/24 1438 PATH REV previously reported as: October Platelet countOrdered By: ED PROVIDER on 05-22-2024 Platelets (Bld) [#/Vol] 182 10*3/uL 150-450 [facility] Platelets LM Ql (Bld)Ordered By: ED PROVIDER on 05-22-2024 Platelet Estimate ADEQUATE ADEQ [facility] Potassium measurementOrdered By: ED PROVIDER on 05-22-2024 Potassium [Moles/Vol] 3.5 mmol/L 3.5-5.1 [facility] Protein Test strip Ql (U)Ord ered By: Chito Munoz on 05-22-2024 Protein Ql (U) 15 mg/dl High Negative [facility] Prothrombin Time w/INRon INR Coag (PPP) [Relative time] 1.1 {INR} Normal [facility] Comment on above: Performed By: #### L 500.4100, L500.4050, L506.1000, L501.9985 #### [facility] [address] [place], [address] PT Coag (PPP) [Time] 14.1 s Normal 11.7-14.9 [facility] Comment on above: Performed By: #### L 500.4100, L500.4050, L506.1000, L501.9985 #### [facility] [address] [place], [address] Prothrombin timeOrdered By: ED PROVIDER on 05-22-2024 PT Coag (PPP) [Time] 14.1 s 11.7-14.9 [facility] RBC Auto (Bld) [#/Vol]Ordere d By: ED PROVIDER on 05-22-2024 RBC (Bld) [#/Vol] 4.69 10*6/uL 4.6-6.2 [facility] RBC morphology finding Nom ( Bld)Ordered By: ED PROVIDER on 05-22-2024 Red Blood Cell Morphology N CHROM NORMAL NORM C&C [facility] Serum anion gap measurementO rdered By: ED PROVIDER on 05-22-2024 Anion gap [Moles/Vol] 8 mmol/L 5-15 [facility] Serum or plasma calcium meño urement (mass/volume)Ordered By: ED PROVIDER on 05-22-2024 Calcium [Mass/Vol] 9.0 mg/dL 8.5-10.1 [facility] Serum or plasma creatinine m easurement (mass/volume)Ordered By: ED PROVIDER on 05-22-2024 Creatinine [Mass/Vol] 1.25 mg/dL 0.70-1.30 [facility] Comment on above: The validity of the calculated GFR & GFRAA in patients over 70 years has not been determined. Clinical correlation is essential. Serum or plasma urea nitroge n measurement (mass/volume)Ordered By: ED PROVIDER on 05-22-2024 Urea nitrogen [Mass/Vol] 12 mg/dL 7-18 [facility] Sodium levelOrdered By: ED P ROVIDER on 05-22-2024 Sodium [Moles/Vol] 135 mmol/L Low 136-145 [facility] Urinalysis, Completeon 05-22 BACTERIA RARE Normal None Seen [facility] Comment on above: Order Comment: CHUCKIE CTOR TO SPECIFY Performed By: #### L 501.080 #### [facility] [address] [place], [place], [phone] EPI,RENAL 0-5 SEEN Normal 0-5 [facility] Comment on above: Order Comment: CHUCKIE CTOR TO SPECIFY Performed By: #### L 501.080 #### [facility] [address] [place], [place], [phone] RBC 0-5 SEEN Normal 0-5 [facility] Comment on above: Order Comment: CHUCKIE CTOR TO SPECIFY Performed By: #### L 501.080 #### [facility] [address] [place], [place], [phone] EPI,SQUAMOUS 0 SEEN Normal 0-5 [facility] Comment on above: Order Comment: CHUCKIE CTOR TO SPECIFY Performed By: #### L 501.080 #### [facility] [address] [place], [place], [address] Mucus Ql (Urine sed) 0 SEEN Normal [facility] Comment on above: Order Comment: CHUCKIE CTOR TO SPECIFY Performed By: #### L 501.080 #### [facility] [address] [place], [address] WBC 0 SEEN Normal 0-5 [facility] Comment on above: Order Comment: CHUCKIE CTOR TO SPECIFY Performed By: #### L 501.080 #### [facility] [address] [place], [place], [id number] Urine blood detectionOrdered By: Chito Munoz on 05-22-2024 Urine Occult Blood 10 /ul High Negative [facility] Urine clarityOrdered By: Khari uMnoz on 05-22-2024 Clarity (U) Clear Clear [facility] Urine color determinationOrd ered By: Chito Munoz on 05-22-2024 Color (U) Yellow Yellow [facility] Urine leukocyte esterase det ection by dipstickOrdered By: Chito Munoz on 05-22-2024 Leukocyte esterase Test strip Ql (U) Negative Negative [facility] Urine pHOrdered By: Chito Munoz on 05-22-2024 pH (U) 6.0 [pH] 5.0 - 8.0 [facility] Urine specific gravity measu rementOrdered By: Chito Munoz on 05-22-2024 Specific gravity (U) [Rel density] 1.015 1.002-1.03 0 [facility] Urobilinogen Ql (U)Ordered B y: Chito Munoz on 05-22-2024 Urine Urobilinogen Normal mg/dl Normal [facility] White blood cell (WBC) count Ordered By: ED PROVIDER on 05-22-2024 WBC (Bld) [#/Vol] 13.2 10*3/uL High 4.4-11.0 [facility] White blood cell countOrdere d By: Chito Munoz on 05-22-2024 Urine WBC 0 SEEN /hpf 0-5 [facility] aPTT Coag (PPP) [Time]Ordere d By: ED PROVIDER on 05-22-2024 aPTT Coag (Annabelle) [Time] 27.1 s 24.1-36.2 [facility] Inital Evaluation (1) - PTon 05-21-2024 Inital Evaluation (1) - PT [facility] Physical Therapy [facility] [address] [place] [address] / REHABILITATION SERVICES INITIAL EVALUATION MR#: [id number] Acct: [id number] Name: GRACIE LEMONS Rep #: [id number] : 1950 74 From: Gaviota Gillespie PT, Cert. MDT Referring Dr.: ERICKA MELISSA Status: REG RCR Insurance: MEDICARE PART A B [employer] Patient's Visit Information Visit Information Visit Information: GRACIE LEMONS is a 74 year old M referred to Physical Therapy by ERICKA MELISSA with a diagnosis of LUMBAR RADICULOPATHY. Date of Evaluation: 05/21/24 Physical Therapist: Gaviota Gillespie PT, Cert MDT Visit Plan Frequency: 2x /Week Duration: 4-6 Weeks Plan: *USE GAIT BELT AND KEEP CHAIR/W/C BEHIND PATIENT. PATIENT HAS EPISODES OF SUDDEN LOSS OF LE CONTROL* Gait training with appropriate assistive device as patient will allow. Neutral Spine Core Stability Exercises and Pablito LE Hip Flexor, Hamstring and Calf Stretching to help reduce stress to the Lumbar Spine with all Daily Activities. Pablito LE Strengthening. Instruction in Proper Posture Control, Body Mechanics, and Appropriate Activity Modifications. HEP Instruction. Subjective Subjective: Work/Leisure: RETIRED Present symptoms: LOW BACK PAIN, PABLITO HIP AND LE PAIN L>R. PATIENT RELATES THE L LE PAIN AND WEAKNESS BEING GREATER ON THE LEFT TO HIS STROKE IN 2000 OR 2 WHEN HE HAD SX FOR BRAIN TUMOR. Present since: CHRONIC Pain Scale: WORST 7/10, LEAST 0/10 Currently: 0/10 - SITTING. Is it getting better, worse or staying the same: STAYING THE SAME Commenced as a result of: NO APPARENT REASON OTHER THAN HARD WORK. Symptoms at onset: LOW BACK PAIN Worse: STANDING AND WALKING. Better: SITTING AND LYING Disturbed sleep: NO Previous history/Previous treatment: 2 LOW BACK SURGERIES WITH MOST RECENT ONE AT LEAST 6 OR 7 YEARS AGO - PLATE, SCREWS AND RODS (ONE OF THE RODS IS BENT). PAIN MGMT INJECTIONS. PHYSICAL THERAPY MULTIPLE TIMES. PATIENT REPORTS THE INJECTIONS HELPED THE MOST AND HE COULDN'T TELL ANY DIFFERENCE WITH THE PHYSICAL THERAPY OTHER THAN IT GOT HIM UP OFF THE COUCH. Treatment this episode: NONE. TESTS ORDERED AND PT CONSULT. Coughing/sneezing/straini ng: NEGATIVE FOR INCREASED PAIN PER PATIENT REPORT. Gait: TIME AND DISTANCE LIMITED - ABOUT 1/8 MILE. LIMPS AND DRAGS L FOOT. STATES HE GOES PARALIZED FROM THE WAIST DOWN AND HITS THE GROUND WHEREVER HE IS AT WHEN IT HAPPENS. THIS STARTED ABOUT A YEAR AGO AND HAS GOT WORSE IN THE LAST 6 MONTHS - LAST FALL WAS ABOUT 10 DAYS AGO. STATES HE HAS ABOUT 30 SEC NOTICE TO GET SEATED BEFORE HE FALLS. USUALLY OCCURS ONCE A WEEK OR MORE. NOT USING ANY ASSISTIVE DEVICES. Bowel or Bladder Dysfunction: YES - LOSS OF BLADDER CONTROL X >1 YEAR. KARL'T WITH UROLOGIST IN JUNE FOR BOTOX TREATMENT. RECENT MEDICATION CHANGE TOO. Accidents: NO Unexplained weight loss: NO Imagin MRI'S AND EMG TEST PENDNING IN RUIDOSO WITH DR. MELISSA JUNE 08 2024. NO RECENT X- RAYS. OTHER: PATIENT REPORTS HE IS WILLING TO TRY THERAPY AGAIN BECAUSE HE IS GETTING WEAKER. HE STATES HE WOULD LIKE TO TRAVEL BUT IT IS A waisted TRIP FOR HIM AT THIS POINT BECAUSE HE CAN'T GET OUT AND GET AROUND AND SEE ANYTHING. HE STATES HE HATES TO SAY IT BUT HE WOULD EVEN LIKE TO BE ABLE TO FOLLOW HIS AROUND THE [facility]. 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 Other Observations: INDEP GAIT INTO PT WITHOUT ANY ASSISTIVE DEVICES WITH LIMP ON LLE, L HIP HIKE, L FOOT DROP, DECREASED PABLITO STRIDE LENGTH AND CADANCE. NO LOB. SOB. PATIENT REFUSING TO NEED TO TAKE BREAK OR USE AD DURING WALK BACK TO TREATMENT ROOM FROM [facility]. Sensory deficit: PABLITO LE LIGHT TOUCH SENSATION GROSSLY INTACT AND SYMMETRICAL WITH PATIENT DENYING NUMBNESS AT THE MOMENT BUT REPORTS THE ENERGY DRAINS OUT OF HIS LEGS WITH PROLONGED STANDING AND WALKING AT TIMES AND HIS LEGS GIVE OUT. EMG PENDING JUN 08 (more content not included)... Normal [facility] METHYLMALONIC ACIDon 024 Methylmalonate [Moles/Vol] 0.14 nmol/mL [facility] - 0.40 nmol/mL [facility] Comment on above: ADDITIONAL INFORMATION This test was developed and its performance characteristics determined by [facility] in a manner consistent with CLIA requirements. This test has not been cleared or approved by the U.S. Food and Drug Administration. Test Performed by: [place] [address] Food Service: Tristen Bear Ph.D.; CLIA# [id number] [facility] IMMUNOFIXATION SERUMon 05-12 REVIEWED BY: Barry Gudino MD [facility] Comment on above: Performed By: #### P SE, PSD, SIMFXB #### [facility] (DEFAULT) [address] [place] [address] Serum Immunofixation Normal [facility] Comment on above: Result Comment: No m onoclonal protein present. Interpretive Information: Negative results for serum immunofixation and serum protein electrophoresis tests are insufficient to rule out a monoclonal gammopathy. For evaluation of a monoclonal gammopathy it is suggested this information be correlated with other clinical and laboratory information including, but not limited to, a serum free light chain evaluation. Non-secretory and oligosecretory myeloma, AL amyloid and light chain only myeloma cannot be excluded on the basis of this result. Qing DF, Jevon G, Uvaldo BL, et al. Laboratory Detection and Initial Diagnosis of Monoclonal Gammopathies. Arch Pathol Lab Med. 2021;146(5):575-590. doi:[id number] Performed By: #### P SE, PSD, SIMFXB #### [facility] (DEFAULT) [address] [place] [address] IMMUNOGLOBULINS IGG IGA IGMo n 05-12-2024 IgA [Mass/Vol] 320 mg/dL Normal 90-410 [facility] Comment on above: Performed By: #### Q IMM #### [facility] (DEFAULT) [address] [place] [address] IgG [Mass/Vol] 1072 mg/dL Normal 600-1560 [facility] Comment on above: Performed By: #### Q IMM #### [facility] (DEFAULT) [address] [address] IgM [Mass/Vol] 81 mg/dL Normal 30-360 [facility] Comment on above: Performed By: #### Q IMM #### [facility] (DEFAULT) [address] [place] [address] METHYLMALONIC ACIDon 024 METHYLMALONIC ACID 0.14 nmol/mL Normal <=0.40 [facility] Comment on above: Result Comment: ADDITIONAL INFORMATION This test was developed and its performance characteristics determined by [facility] in a manner consistent with CLIA requirements. This test has not been cleared or approved by the U.S. Food and Drug Administration. Test Performed by: [facility] [place] [address] Food Service: Tristen Bear Ph.D.; CLIA# [id number] Performed By: #### Y MMA #### [facility] (DEFAULT) [address] [place] [address] PROTEIN ELECTROPHORESISon Albumin [Mass/Vol] 3.8 g/dL Normal 3.5-5.0 [facility] Comment on above: Performed By: #### P SE, PSD, SIMFXB #### [facility] (DEFAULT) [address] [place] [address] Alpha 1 0.2 g/dL Normal 0.2-0.4 [facility] Comment on above: Performed By: #### P SE, PSD, SIMFXB #### [facility] (DEFAULT) [address] [place] [address] Alpha 2 0.8 g/dL Normal 0.5-1.0 [facility] Comment on above: Performed By: #### P SE, PSD, SIMFXB #### [facility] (DEFAULT) [address] [address] Beta 1.0 g/dL Normal 0.5-1.1 [facility] Comment on above: Performed By: #### P SE, PSD, SIMFXB #### [facility] (DEFAULT) [address] [address] Gamma 1.1 g/dL Normal 0.6-1.5 [facility] Comment on above: Performed By: #### P SE, PSD, SIMFXB #### [facility] (DEFAULT) [address] [place] [address] Interpretation By: Barry Gudino MD Normal [facility] Comment on above: Performed By: #### P SE, PSD, SIMFXB #### [facility] (DEFAULT) [address] [address] Spe Interpretation Normal serum protein electrophoresis pattern. Normal [facility] Comment on above: Performed By: #### P SE, PSD, SIMFXB #### [facility] (DEFAULT) [address] [address] SPE SERUM TOTAL PROTEINon Protein [Mass/Vol] 6.9 g/dL Normal 6.4-8.3 [facility] Comment on above: Performed By: #### P SE, PSD, SIMFXB #### [facility] (DEFAULT) [address] [address] VITAMIN B12on 05-12-2024 Cobalamin (Vitamin B12) [Mass/Vol] 844 pg/mL 211 - 911 pg/mL [facility] Comment on above: Testing of Methylmal onic Acid and Intrinsic Factor Blocking Antibody are recommended if clinical suspicion for pernicious anemia due to B12 deficiency is high for patients with intermediate B12 levels (211 to 400 pg/mL) to rule out spurious heterophile antibodies. Interpretation and review of laboratory results Normal [facility] Cobalamin (Vitamin B12) [Mass/Vol] 844 pg/mL Normal 211-911 [facility] Comment on above: Result Comment: Test ing of Methylmalonic Acid and Intrinsic Factor Blocking Antibody are recommended if clinical suspicion for pernicious anemia due to B12 deficiency is high for patients with intermediate B12 levels (211 to 400 pg/mL) to rule out spurious heterophile antibodies. Performed By: #### B 12B #### [facility] (DEFAULT) [address] [address] [id number] DOrdered By: Arianna Caputo on 05-07-2024 Vitamin D 25-Hydroxy 55.7 ng/mL [facility] Comment on above: Vitamin D 25(OH) Sta tus Range Deficiency <20 ng/mL (50nmol/L) Insufficiency 20 - 30 ng/mL (50 - 75 nmol/L) Sufficiency 30 - 100 ng/mL (75 - 250 nmol/L) Toxicity >100 ng/mL (>250 nmol/L) Albumin to globulin ratioOrd ered By: Alyson Collier on 05-07-2024 Albumin/Globulin [Mass ratio] 0.9 {ratio} 0.9-2.4 [facility] Bilirubin, totalOrdered By: Alyson Collier on 05-07-2024 Bilirubin [Mass/Vol] 0.50 mg/dL 0.20-1.00 [facility] Comment on above: For patients on eltr ombopag therapy, use of Dimension [place] TBIL is not recommended. Blood urea nitrogen (BUN)/cr eatinine ratioOrdered By: Alyson Collier on 05-07-2024 Urea nitrogen/Creatinine [Mass ratio] 10.5 mg/mg 10-20 [facility] Carbon dioxide measurementOr dered By: Alyson Collier on 05-07-2024 CO2 [Moles/Vol] 27.0 mmol/L 21.0-32.0 [facility] Chloride measurementOrdered By: Alyson Collier on 05-07-2024 Chloride [Moles/Vol] 105 mmol/L 98-107 [facility] Comprehensive Metabolic Prof ilon 05-07-2024 Albumin [Mass/Vol] 3.3 g/dL Normal 3.2-5.0 [facility] Comment on above: Order Comment: DR.Ar miguel angel Collier WANTED CMP AND LIPIDDR HARSHAL WANTED [id number] Performed By: #### L 500.4100, L500.4050, L506.1000, L501.9985 #### [facility] [address] [place], [address] Albumin/Globulin [Mass ratio] 0.9 {ratio} Normal 0.9-2.4 [facility] Comment on above: Order Comment: DR.Ar miguel angel Collier WANTED CMP AND LIPIDDR HARSHAL WANTED [id number] Performed By: #### L 500.4100, L500.4050, L506.1000, L501.9985 #### [facility] [address] [place], [address] ALK P 62 U/L Normal 45-117 [facility] Comment on above: Order Comment: DR.Ar miguel angel Collier WANTED CMP AND LIPIDDR HARSHAL WANTED [id number] Performed By: #### L 500.4100, L500.4050, L506.1000, L501.9985 #### [facility] [address] [place], [address] ALT [Catalytic activity/Vol] 44 U/L Normal 16-61 [facility] Comment on above: Order Comment: DR.Ar miguel angel Collier WANTED CMP AND LIPIDDR HARSHAL WANTED [id number] Performed By: #### L 500.4100, L500.4050, L506.1000, L501.9985 #### [facility] [address] [place], [address] AST [Catalytic activity/Vol] 36 U/L Normal 15-37 [facility] Comment on above: Order Comment: DR.Ar miguel angel Collier WANTED CMP AND LIPIDDR HARSHAL WANTED [id number] Performed By: #### L 500.4100, L500.4050, L506.1000, L501.9985 #### [facility] [address] [place], [address] Bilirubin [Mass/Vol] 0.50 mg/dL Normal 0.20-1.00 [facility] Comment on above: Order Comment: DR.Ar miguel angel Collier WANTED CMP AND LIPIDDR HARSHAL WANTED [id number] Result Comment: For patients on eltrombopag therapy, use of Dimension [place] TBIL is not recommended. Performed By: #### L 500.4100, L500.4050, L506.1000, L501.9985 #### [facility] [address] [place], [address] BUN/CRE 10.5 RATIO Normal 10-20 [facility] Comment on above: Order Comment: DR.Ar miguel angel Collier WANTED CMP AND LIPIDDR HARSHAL WANTED [id number] Performed By: #### L 500.4100, L500.4050, L506.1000, L501.9985 #### [facility] [address] [place], [address] CA,Total 8.9 mg/dL Normal 8.5-10.1 [facility] Comment on above: Order Comment: DR.Ar miguel angel Collier WANTED CMP AND LIPIDDR HARSHAL WANTED [id number] Performed By: #### L 500.4100, L500.4050, L506.1000, L501.9985 #### [facility] [address] [place], [address] Chloride [Moles/Vol] 105 mmol/L Normal 98-107 [facility] Comment on above: Order Comment: DR.Ar miguel angel Collier WANTED CMP AND LIPIDDR HARSHAL WANTED [id number] Performed By: #### L 500.4100, L500.4050, L506.1000, L501.9985 #### [facility] [address] [place], [address] CO2 [Moles/Vol] 27.0 mmol/L Normal 21.0-32.0 [facility] Comment on above: Order Comment: DR.Ar miguel angel Collier WANTED CMP AND LIPIDDR HARSHAL WANTED [id number] Performed By: #### L 500.4100, L500.4050, L506.1000, L501.9985 #### [facility] [address] [place], [address] Creatinine [Mass/Vol] 1.24 mg/dL Normal 0.70-1.30 [facility] Comment on above: Order Comment: DR.Ar miguel angel Collier WANTED CMP AND LIPIDDR HARSHAL WANTED [id number] Result Comment: The validity of the calculated GFR GFRAA in patients over 70 years has not been determined. Clinical correlation is essential. Performed By: #### L 500.4100, L500.4050, L506.1000, L501.9985 #### [facility] [address] [place], [address] EST GFR - AA 73 mL/min Normal >60 [facility] Comment on above: Order Comment: DR.Ar miguel angel Collier WANTED CMP AND LIPIDDR HARSHAL WANTED [id number] Result Comment: Afri can [place] GFR Calc Performed By: #### L 500.4100, L500.4050, L506.1000, L501.9985 #### [facility] [address] [place], [address] GAP 6 Normal 5-15 [facility] Comment on above: Order Comment: DR.Ar miguel angel Collier WANTED CMP AND LIPIDDR HARSHAL WANTED [id number] Performed By: #### L 500.4100, L500.4050, L506.1000, L501.9985 #### [facility] [address] [place], [address] GFR/1.73 sq M.predicted among non-blacks MDRD (S/P/Bld) [Vol rate/Area] 61 mL/min/{1.73_m2} Normal >60 [facility] Comment on above: Order Comment: DR.Ar miguel angel Collier WANTED CMP AND LIPIDDR HARSHAL WANTED [id number] Result Comment: Non- GFR Calc Performed By: #### L 500.4100, L500.4050, L506.1000, L501.9985 #### [facility] [address] [place], [address] Globulin (S) [Mass/Vol] 3.7 g/dL Normal 2.2-4.2 [facility] Comment on above: Order Comment: DR.Ar miguel angel Collier WANTED CMP AND LIPIDDR HARSHAL WANTED [id number] Performed By: #### L 500.4100, L500.4050, L506.1000, L501.9985 #### [facility] [address] [place], [address] Glucose [Mass/Vol] 170 mg/dL High 74-106 [facility] Comment on above: Order Comment: DR.Ar miguel angel Collier WANTED CMP AND LIPIDDR HARSHAL WANTED [id number] Result Comment: Fast ing Glucose result greater than or equal to 126 mg/dL suggests DIABETES MELLITUS per A.D.A. criteria. Performed By: #### L 500.4100, L500.4050, L506.1000, L501.9985 #### [facility] [address] [place], [address] Potassium [Moles/Vol] 3.9 mmol/L Normal 3.5-5.1 [facility] Comment on above: Order Comment: DR.Ar miguel angel Collier WANTED CMP AND LIPIDDR CAPUTO WANTED [id number] Performed By: #### L 500.4100, L500.4050, L506.1000, L501.9985 #### [facility] [address] [place], [address] Sodium [Moles/Vol] 138 mmol/L Normal 136-145 [facility] Comment on above: Order Comment: DR.Ar miguel angel Collier WANTED CMP AND LIPIDDR HARSHAL WANTED [id number] Performed By: #### L 500.4100, L500.4050, L506.1000, L501.9985 #### [facility] [address] [place], [address] T PROT 7.0 g/dL Normal 6.4-8.2 [facility] Comment on above: Order Comment: DR.Ar miguel angel Collier WANTED CMP AND LIPIDDR HARSHAL WANTED [id number] Performed By: #### L 500.4100, L500.4050, L506.1000, L501.9985 #### [facility] [address] [place], [address] Urea nitrogen [Mass/Vol] 13 mg/dL Normal 7-18 [facility] Comment on above: Order Comment: DR.Ar miguel angel Collier WANTED CMP AND LIPIDDR HARSHAL WANTED [id number] Performed By: #### L 500.4100, L500.4050, L506.1000, L501.9985 #### [facility] [address] [place], [address] ALB Normal 3.2-5.0 [facility] Comment on above: Result Comment: DUPL ICATE Performed By: #### L 500.4100, L500.4050, L506.1000, L501.9985 #### [facility] [address] [place], [address] ALK P Normal 45-117 [facility] Comment on above: Result Comment: DUPL ICATE Performed By: #### L 500.4100, L500.4050, L506.1000, L501.9985 #### [facility] [address] [place], [address] ALT Normal 16-61 [facility] Comment on above: Result Comment: DUPL ICATE Performed By: #### L 500.4100, L500.4050, L506.1000, L501.9985 #### [facility] [address] [place], [address] AST Normal 15-37 [facility] Comment on above: Result Comment: DUPL ICATE Performed By: #### L 500.4100, L500.4050, L506.1000, L501.9985 #### [facility] [address] [place], [address] BUN Normal 7-18 [facility] Comment on above: Result Comment: DUPL ICATE Performed By: #### L 500.4100, L500.4050, L506.1000, L501.9985 #### [facility] [address] [place], [address] BUN/CRE Normal 10-20 [facility] Comment on above: Result Comment: DUPL ICATE Performed By: #### L 500.4100, L500.4050, L506.1000, L501.9985 #### [facility] [address] [place], [address] CA,Total Normal 8.5-10.1 [facility] Comment on above: Result Comment: DUPL ICATE Performed By: #### L 500.4100, L500.4050, L506.1000, L501.9985 #### [facility] [address] [place], [address] CL Normal 98-107 [facility] Comment on above: Result Comment: DUPL ICATE Performed By: #### L 500.4100, L500.4050, L506.1000, L501.9985 #### [facility] [address] [place], [address] CO2 Normal 21.0-32.0 [facility] Comment on above: Result Comment: DUPL ICATE Performed By: #### L 500.4100, L500.4050, L506.1000, L501.9985 #### [facility] [address] [place], [address] CREAT,SERUM Normal 0.70-1.30 [facility] Comment on above: Result Comment: DUPL ICATE Performed By: #### L 500.4100, L500.4050, L506.1000, L501.9985 #### [facility] [address] [place], [address] EST GFR Normal >60 [facility] Comment on above: Result Comment: DUPL ICATE Performed By: #### L 500.4100, L500.4050, L506.1000, L501.9985 #### [facility] [address] [place], [address] EST GFR - AA Normal >60 [facility] Comment on above: Result Comment: DUPL ICATE Performed By: #### L 500.4100, L500.4050, L506.1000, L501.9985 #### [facility] [address] [place], [address] GAP Normal 5-15 [facility] Comment on above: Result Comment: DUPL ICATE Performed By: #### L 500.4100, L500.4050, L506.1000, L501.9985 #### [facility] [address] [place], [address] GLU Normal 74-106 [facility] Comment on above: Result Comment: DUPL ICATE Performed By: #### L 500.4100, L500.4050, L506.1000, L501.9985 #### [facility] [address] [place], [address] Potassium Normal 3.5-5.1 [facility] Comment on above: Result Comment: DUPL ICATE Performed By: #### L 500.4100, L500.4050, L506.1000, L501.9985 #### [facility] [address] [place], [address] T BILI Normal 0.20-1.00 [facility] Comment on above: Result Comment: DUPL ICATE Performed By: #### L 500.4100, L500.4050, L506.1000, L501.9985 #### [facility] [address] [place], [address] T PROT Normal 6.4-8.2 [facility] Comment on above: Result Comment: DUPL ICATE Performed By: #### L 500.4100, L500.4050, L506.1000, L501.9985 #### [facility] [address] [place], [address] Comprehensive Metabolic Profil Normal 136-145 [facility] Comment on above: Result Comment: DUPL ICATE Performed By: #### L 500.4100, L500.4050, L506.1000, L501.9985 #### [facility] [address] [place], [address] Estimated glomerular filtrat ion rate (GFR) AmericanOrdered By: Alyson Collier on 05-07-2024 Estimated GFR (MDRD) Amer 73 mL/min >60 [facility] Comment on above: GFR Calc Glomerular filtration rate ( GFR) estimationOrdered By: Alyson Collier on 05-07-2024 Estimated GFR (MDRD) Non-Af Amer 61 mL/min >60 [facility] Comment on above: Non- GFR Calc Glucose measurementOrdered B y: Alyson Collier on 05-07-2024 Glucose [Mass/Vol] 170 mg/dL High 74-106 [facility] Comment on above: Fasting Glucose resu lt greater than or equal to 126 mg/dL suggests DIABETES MELLITUS per A.D.A. criteria. Hemoglobin A1con 05-07-2024 HbA1c (Bld) [Mass fraction] 8.0 % High 3.8-5.6 [facility] Comment on above: Order Comment: DR.Ar miguel angel Collier WANTED CMP AND LIPID DR CAPUTO WANTED CMP A1C LIPID [id number] Result Comment: Norm al < 5.7 % Prediabetic 5.7 - 6.4 % Diabetic >or= 6.5 % Please note range changes. Performed By: #### L 500.4100, L500.4050, L506.1000, L501.9985 #### [facility] [address] [place], [address] Hemoglobin A1c percentageOrd ered By: Tita Caputo on 05-07-2024 HbA1c (Bld) [Mass fraction] 8.0 % High 3.8-5.6 [facility] Comment on above: Normal < 5.7 % Predi abetic 5.7 - 6.4 % Diabetic >or= 6.5 % Please note range changes. High density lipoprotein (HD L) measurementOrdered By: Alyson Collier on 05-07-2024 Cholesterol in HDL [Mass/Vol] 44 mg/dL >40 [facility] Comment on above: The drugs N-Acetylcy steine and Metamizole may falsely depress this assay. Reference Range HDL <40 mg/dL Low HDL Cholesterol HDL >or= 60 mg/dL High HDL Cholesterol Laboratory - Chemistry and C hemistry - challengeOrdered By: Alyson Collier on 05-07-2024 AST [Catalytic activity/Vol] 36 U/L 15-37 [facility] Lipid Profileon 05-07-2024 Cholesterol [Mass/Vol] 105 mg/dL Normal 200 [facility] Comment on above: Order Comment: DR.Ar miguel angel Collier WANTED CMP AND LIPIDDR CAPUTO WANTED [id number] Result Comment: <200 mg/dL Desirable 200-240 mg/dL Borderline >240 mg/dL High Risk Performed By: #### L 500.4100, L500.4050, L506.1000, L501.9985 #### [facility] [address] [place], [address] Cholesterol in HDL [Mass/Vol] 44 mg/dL Normal [facility] Comment on above: Order Comment: DR.Ar miguel angel Collier WANTED CMP AND LIPIDDR CAPUTO WANTED [id number] Result Comment: The drugs N-Acetylcysteine and Metamizole may falsely depress this assay. Reference Range HDL <40 mg/dL Low HDL Cholesterol HDL >or= 60 mg/dL High HDL Cholesterol Performed By: #### L 500.4100, L500.4050, L506.1000, L501.9985 #### [facility] [address] [place], [address] Cholesterol in LDL [Mass/Vol] 30 mg/dL Normal 0-130 [facility] Comment on above: Order Comment: DR.Ar miguel angel Collier WANTED CMP AND LIPIDDR HARSHAL WANTED [id number] Performed By: #### L 500.4100, L500.4050, L506.1000, L501.9985 #### [facility] [address] [place], [address] Cholesterol in VLDL [Mass/Vol] 31 mg/dL Normal 5-40 [facility] Comment on above: Order Comment: DR.Ar miguel angel Collier WANTED CMP AND LIPIDDR HARSHAL WANTED [id number] Performed By: #### L 500.4100, L500.4050, L506.1000, L501.9985 #### [facility] [address] [place], [address] Triglyceride [Mass/Vol] 156 mg/dL Normal [facility] Comment on above: Order Comment: DR.Ar miguel angel Collier WANTED CMP AND LIPIDDR CAPUTO WANTED [id number] Result Comment: The drugs N-Acetylcysteine and Metamizole may falsely depress this assay. Serum Triglycerides Reference Interval Normal <150 mg/dL Borderline high 150 - 199 mg/dL High 200 - 499 mg/dL Very High > or = 500 mg/dL Performed By: #### L 500.4100, L500.4050, L506.1000, L501.9985 #### [facility] [address] [place], [address] HDL Normal [facility] Comment on above: Result Comment: DUPL ICATE The drugs N-Acetylcysteine and Metamizole may falsely depress this assay. Performed By: #### L 500.4100, L500.4050, L506.1000, L501.9985 #### [facility] [address] [place], [address] TRIG Normal [facility] Comment on above: Result Comment: DUPL ICATE The drugs N-Acetylcysteine and Metamizole may falsely depress this assay. Performed By: #### L 500.4100, L500.4050, L506.1000, L501.9985 #### [facility] [address] [place], [address] CHOL Normal 200 [facility] Comment on above: Result Comment: DUPL ICATE Performed By: #### L 500.4100, L500.4050, L506.1000, L501.9985 #### [facility] [address] [place], [address] LDL Normal 0-130 [facility] Comment on above: Result Comment: DUPL ICATE Performed By: #### L 500.4100, L500.4050, L506.1000, L501.9985 #### [facility] [address] [place], [address] VLDL Normal 5-40 [facility] Comment on above: Result Comment: DUPL ICATE Performed By: #### L 500.4100, L500.4050, L506.1000, L501.9985 #### [facility] [address] [place], [address] Low density lipoprotein (LDL ) cholesterol measurementOrdered By: Alyson Collier on 05-07-2024 Cholesterol in LDL [Mass/Vol] 30 mg/dL 0-130 [facility] Office Visit Reporton 2023 Office Visit Report [facility] [address] [place] [address] OFFICE VISIT Date of Service: 05/07/24 MR#: [id number] Acct: [id number] Patient: GRACIE LEMONS Rep #: [id number] : 1950 Provider: Dr. Tino nuñez MD Age/Sex: 74/M Location: [facility] Status: Signed Intake Vital Signs 03/02/24 09:14 05/05/24 08:38 05/07/24 08:20 Height 5 ft 3 in 5 ft 3 in 5 ft 3 in Weight: 216 lb 3 oz BMI 38.2 BP 110/70 Blood Pressure Location Rt brachial Position Sitting Respiration 17 Pulse 65 Pulse Source Monitor Temp 98.2 F Temp Source Temporal Pulse Oximetry (%) 98 Oxygen Delivery Method room air Intake Visit Reasons: B12 inject Chief Complaint: Allergies acetaminophen (From Tylenol) Allergy (Severe, Verified 05/05/24 14:18) Anaphylaxis Penicillins Allergy (Severe, Verified 05/05/24 14:18) Other hydromorphone HCl (From Dilaudid) Adverse Reaction (Severe, Verified 05/05/24 14:18) Other Have you fallen in the past year?: No Office Meds cyanocobalamin (vitamin B-12) 1,000 mcg/mL injection solution Performing Provider: Tino Gamble MD Performing Location: [facility] Administered by: Reina Curry on 05/07/24 08:23 Dose Route Admin Location Dispensed Lot Number Expiration Date [facility] Man ufacturer 1,500 mcg IM right deltoid 1.5 mL [id number] 07/17/26 28958-726-27 CAYDEN HDEZ Comments: The patient presents for B12 injection for treatment of fatigue. He has fatigue. His last B12 injection was of benefit for fatigue. The patient is awake and alert. B12 1500mcg IM was administered today. There were no complications. Assessment and Plan Assessment and Plan (1) Fatigue: Status: Chronic Qualifiers: Fatigue type: unspecified Qualified Code(s): R53.83 - Other fatigue Orders: Orders Vitamin B12 Today R53.83 - Other fatigue Clinical Quality Measures Falls Risk Screening/Assistive Devices Have you fallen in the past year?: No 05/07/24 1536 Date Tino Lunsford Signature: Date (if applicable) CC: Normal [facility] Potassium measurementOrdered By: Alyson Collier on 05-07-2024 Potassium [Moles/Vol] 3.9 mmol/L 3.5-5.1 [facility] Serum anion gap measurementO rdered By: Alyson Collier on 05-07-2024 Anion gap [Moles/Vol] 6 mmol/L 5-15 [facility] Serum globulin measurementOr dered By: Alyson Collier on 05-07-2024 Globulin (S) [Mass/Vol] 3.7 g/dL 2.2-4.2 [facility] Serum or plasma alanine gandhi otransferase (ALT) measurementOrdered By: Alyson Collier on 05-07-2024 ALT [Catalytic activity/Vol] 44 U/L 16-61 [facility] Serum or plasma albumin meño urement (mass/volume)Ordered By: Alyson Collier on 05-07-2024 Albumin [Mass/Vol] 3.3 g/dL 3.2-5.0 [facility] Serum or plasma alkaline adam sphatase measurementOrdered By: Alyson Collier on 05-07-2024 ALP [Catalytic activity/Vol] 62 U/L 45-117 [facility] Serum or plasma calcium meño urement (mass/volume)Ordered By: Alyson Collier on 05-07-2024 Calcium [Mass/Vol] 8.9 mg/dL 8.5-10.1 [facility] Serum or plasma cholesterol measurement (mass/volume)Ordered By: Alyson Collier on 05-07-2024 Cholesterol [Mass/Vol] 105 mg/dL <200 [facility] Comment on above: <200 mg/dL Desirable 200-240 mg/dL Borderline >240 mg/dL High Risk Serum or plasma creatinine m easurement (mass/volume)Ordered By: Alyson Collier on 05-07-2024 Creatinine [Mass/Vol] 1.24 mg/dL 0.70-1.30 [facility] Comment on above: The validity of the calculated GFR & GFRAA in patients over 70 years has not been determined. Clinical correlation is essential. Serum or plasma urea nitroge n measurement (mass/volume)Ordered By: Alyson Collier on 05-07-2024 Urea nitrogen [Mass/Vol] 13 mg/dL 7-18 [facility] Sodium levelOrdered By: Mikel Collier on 05-07-2024 Sodium [Moles/Vol] 138 mmol/L 136-145 [facility] Total proteinOrdered By: Rodrigo Collier on 05-07-2024 Protein [Mass/Vol] 7.0 g/dL 6.4-8.2 [facility] Triglycerides measurementOrd ered By: Alyson Collier on 05-07-2024 Triglyceride [Mass/Vol] 156 mg/dL <199 [facility] Comment on above: The drugs N-Acetylcy steine and Metamizole may falsely depress this assay.Serum Triglycerides Reference Interval Normal <150 mg/dL Borderline high 150 - 199 mg/dL High 200 - 499 mg/dL Very High > or = 500 mg/dL Very low density lipoprotein (VLDL) cholesterol measurementOrdered By: Alyson Collier on 05-07-2024 VLDL Cholesterol 31 mg/dL 5-40 [facility] Vitamin D,25 Hydroxyon 05-07 Vitamin D 25-OH 55.7 ng/mL Normal [facility] Comment on above: Result Comment: Makeda min D 25(OH) Status Range Deficiency <20 ng/mL (50nmol/L) Insufficiency 20 - 30 ng/mL (50 - 75 nmol/L) Sufficiency 30 - 100 ng/mL (75 - 250 nmol/L) Toxicity >100 ng/mL (>250 nmol/L) Performed By: #### L 500.4100, L500.4050, L506.1000, L501.9985 #### [facility] [address] [place], [address] Cardiology Visit Reporton Cardiology Visit Report [facility] [address] [place] [address] OFFICE VISIT Date of Service: 05/05/24 MR#: [id number] Acct: [id number] Name: GRACIE LEMONS Rep #: [id number] : 1950 Provider: Dr. Alyson Collier MD Age/Sex: 74/M Location: [facility] Status: Signed HPI HPI History of Present Illness Details: This pleasant gentleman with history of coronary artery disease status post drug-eluting stent to his OM in 2012 is here for follow-up visit. Denies any chest pains or shortness of breath. No palpitations. No orthopnea or PND. No ankle edema. Intake Vital Signs 04/07/24 08:45 05/05/24 08:38 Height 5 ft 3 in 5 ft 3 in Weight: 217 lb 6 oz 216 lb BMI 38.5 38.2 BP 100/70 111/71 Blood Pressure Location Lt brachial Lt brachial Position Sitting Sitting Respiration 17 16 Pulse 69 72 Pulse Source Monitor NIBP Temp 98.6 F Pulse Oximetry (%) 99 Oxygen Delivery Method room air Intake Visit Reasons: 6 M FU Flexo Operator Required: No Accompanied by: Self Is patient in pain?: No Allergies acetaminophen (From Tylenol) Allergy (Severe, Verified 05/05/24 14:18) Anaphylaxis Penicillins Allergy (Severe, Verified 05/05/24 14:18) Other hydromorphone HCl (From Dilaudid) Adverse Reaction (Severe, Verified 05/05/24 14:18) Other Medications ???Medication ???Instructions ???Recorded ???Confirmed ???Type nortriptyline 25 mg capsule 25 mg PO QHS nerve pain 04/23/13 05/05/24 History pantoprazole 40 mg tablet,delayed 40 mg PO DAILY acid reflux 04/23/13 05/05/24 History release finasteride 5 mg tablet 5 mg PO DAILY prostate 10/12/16 05/05/24 History cholecalciferol (vitamin D3) 25 5,000 unit PO DAILY DEFICIENCY 05/05/18 05/05/24 History mcg (1,000 unit) capsule adalimumab 10 mg/0.2 mL 40 mg subcut Q2W arthritis 10/21/18 05/05/24 History subcutaneous syringe kit (Humira) nitroglycerin 0.4 mg sublingual 0.4 mg sublingual Q5-15M PRN chest 10/26/20 05/05/24 Rx tablet pain #25 tabs oxybutynin chloride 10 mg 10 mg PO QPM 05/21/22 05/05/24 History tablet,extended release 24 hr Disability Placard #1 ea 11/29/22 05/05/24 Rx empagliflozin 12.5 mg-metformin ER 2 tab PO DAILY Diabetes 05/16/23 05/05/24 History 1,000 mg tablet,extended rel 24 hr (Synjardy XR) levothyroxine 50 mcg tablet 50 mcg PO DAILY 05/16/23 05/05/24 History lisinopril 20 mg tablet See Rx Instructions .Route 07/15/23 05/05/24 Rx .COMPLEX #90 tabs Left AFO #1 ea 09/30/23 12/02/23 Rx dulaglutide 0.75 mg/0.5 mL 0.75 mg subcut QWEEK 12/02/23 05/05/24 History subcutaneous pen injector (Trulicity) glimepiride 2 mg tablet 2 mg PO QDAY 12/02/23 05/05/24 History tamsulosin 0.4 mg capsule 0.4 mg PO QDAY 12/02/23 05/05/24 History ezetimibe 10 mg tablet 10 mg PO QHS to lower cholesterol 12/30/23 05/05/24 Rx #90 tabs gabapentin 300 mg capsule 300 mg PO BID 01/30/24 05/05/24 History clopidogrel 75 mg tablet 75 mg PO DAILY #90 tabs 03/19/24 05/05/24 Rx metoprolol tartrate 100 mg tablet 100 mg PO BID #180 TABLETS 05/04/24 05/05/24 Rx Ejection fraction %: 55 Have you fallen in the past year?: No PFSH Medical History Abnormality of gait and mobility Atherosclerotic heart disease of [place] coronary artery without angina pectoris Chest pain Claudication in peripheral vascular disease Coronary artery disease COVID-19 Diabetes 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 PALOMO (dyspnea on exertion) Dyslipidemia Essential hypertension Fatigue History of atrial fibrillation History of orthostatic hypotension Hypotension Left foot drop Left ventricular hypertrophy Leg weakness, bilateral Low back pain Obesity Paroxysmal atrial fibrillation Polyneuropathy Presence of stent in coronary artery ( 04/30/13) Pure hypercholesterolemia Sinus tachycardia Weakness Surgical History History of lumbar surgery History of lumbosacral spine surgery History of resection of meningioma Hx of cataract surgery Presence of coronary angioplasty implant and graft ( 04/30/13) Family History Mother CAD (coronary artery disease) Sister CAD (coronary artery disease) Father Heart disease Social History Smoking Status: Never smoker alcohol intake: never substance use type: does not use caffeine: Yes Type: carbonated beverages Number of servings: 1 what type of physical activity do you participate in: none ROS Const Const: Positive for fatigue (episodic; short in duration; following with Neuro) and weakness (episodic; short in dura (more content not included)... Normal [facility] Basic Metabolic Profile (BMP )on 04-16-2024 BUN/CRE 11.1 RATIO Normal 04-05 [facility] Comment on above: Order Comment: UNABL E TO ORDER PSA HAS NOT BEEN A YEAR Performed By: #### L 500.2500, L500.4100 #### [facility] [address] [place], [address] CA,Total 8.9 mg/dL Normal 8.5-10.1 [facility] Comment on above: Order Comment: UNABL E TO ORDER PSA HAS NOT BEEN A YEAR Performed By: #### L 500.2500, L500.4100 #### [facility] [address] [place], [address] Chloride [Moles/Vol] 109 mmol/L High 98-107 [facility] Comment on above: Order Comment: UNABL E TO ORDER PSA HAS NOT BEEN A YEAR Performed By: #### L 500.2500, L500.4100 #### [facility] [address] [place], [address] CO2 [Moles/Vol] 24.0 mmol/L Normal 21.0-32.0 [facility] Comment on above: Order Comment: UNABL E TO ORDER PSA HAS NOT BEEN A YEAR Performed By: #### L 500.2500, L500.4100 #### [facility] [address] [place], [address] Creatinine [Mass/Vol] 1.35 mg/dL High 0.70-1.30 [facility] Comment on above: Order Comment: UNABL E TO ORDER PSA HAS NOT BEEN A YEAR Result Comment: The validity of the calculated GFR GFRAA in patients over 70 years has not been determined. Clinical correlation is essential. Performed By: #### L 500.2500, L500.4100 #### [facility] [address] [place], [address] EST GFR - AA 66 mL/min Normal >60 [facility] Comment on above: Order Comment: UNABL E TO ORDER PSA HAS NOT BEEN A YEAR Result Comment: Afri can [place] GFR Calc Performed By: #### L 500.2500, L500.4100 #### [facility] [address] [place], [address] GAP 6 Normal 5-15 [facility] Comment on above: Order Comment: UNABL E TO ORDER PSA HAS NOT BEEN A YEAR Performed By: #### L 500.2500, L500.4100 #### [facility] [address] [place], [address] GFR/1.73 sq M.predicted among non-blacks MDRD (S/P/Bld) [Vol rate/Area] 55 mL/min/{1.73_m2} Low >60 [facility] Comment on above: Order Comment: UNABL E TO ORDER PSA HAS NOT BEEN A YEAR Result Comment: Non- GFR Calc Performed By: #### L 500.2500, L500.4100 #### [facility] [address] [place], [address] Glucose [Mass/Vol] 202 mg/dL High 74-106 [facility] Comment on above: Order Comment: UNABL E TO ORDER PSA HAS NOT BEEN A YEAR Result Comment: Gluc ose result greater than or equal to 200 mg/dL suggests DIABETES MELLITUS per A.D.A. criteria. Performed By: #### L 500.2500, L500.4100 #### [facility] [address] [place], [address] Potassium [Moles/Vol] 3.9 mmol/L Normal 3.5-5.1 [facility] Comment on above: Order Comment: UNABL E TO ORDER PSA HAS NOT BEEN A YEAR Performed By: #### L 500.2500, L500.4100 #### [facility] [address] [place], [address] Sodium [Moles/Vol] 139 mmol/L Normal 136-145 [facility] Comment on above: Order Comment: UNABL E TO ORDER PSA HAS NOT BEEN A YEAR Performed By: #### L 500.2500, L500.4100 #### [facility] [address] [place], [address] Urea nitrogen [Mass/Vol] 15 mg/dL Normal 7-18 [facility] Comment on above: Order Comment: UNABL E TO ORDER PSA HAS NOT BEEN A YEAR Performed By: #### L 500.2500, L500.4100 #### [facility] [address] [place], [address] Lipid Profileon 10-31-2024 Cholesterol [Mass/Vol] 92 mg/dL Normal 200 [facility] Comment on above: Order Comment: UNABL E TO ORDER PSA HAS NOT BEEN A YEAR Result Comment: <200 mg/dL Desirable 200-240 mg/dL Borderline >240 mg/dL High Risk Performed By: #### L 500.2500, L500.4100 ####[facility] [address] [place], [address] Cholesterol in HDL [Mass/Vol] 39 mg/dL Low [facility] Comment on above: Order Comment: UNABL E TO ORDER PSA HAS NOT BEEN A YEAR Result Comment: The drugs N-Acetylcysteine and Metamizole may falsely depress this assay. Reference Range HDL <40 mg/dL Low HDL Cholesterol HDL >or= 60 mg/dL High HDL Cholesterol Performed By: #### L 500.2500, L500.4100 ####[facility] [address] [facility] [address] Cholesterol in LDL [Mass/Vol] 26 mg/dL Normal 0-130 [facility] Comment on above: Order Comment: UNABL E TO ORDER PSA HAS NOT BEEN A YEAR Performed By: #### L 500.2500, L500.4100 ####[facility] [address] [place], [address] Cholesterol in VLDL [Mass/Vol] 27 mg/dL Normal 5-40 [facility] Comment on above: Order Comment: UNABL E TO ORDER PSA HAS NOT BEEN A YEAR Performed By: #### L 500.2500, L500.4100 ####[facility] [address] [place], [address] Triglyceride [Mass/Vol] 135 mg/dL Normal [facility] Comment on above: Order Comment: UNABL E TO ORDER PSA HAS NOT BEEN A YEAR Result Comment: The drugs N-Acetylcysteine and Metamizole may falsely depress this assay. Serum Triglycerides Reference Interval Normal <150 mg/dL Borderline high 150 - 199 mg/dL High 200 - 499 mg/dL Very High > or = 500 mg/dL Performed By: #### L 500.2500, L500.4100 ####[facility] [address] [place], [address] Office Visit Reporton 2023 Office Visit Report [facility] [address] [address] OFFICE VISIT Date of Service: 04/07/24 MR#: [id number] Acct: [id number] Patient: GRACIE LEMONS Rep #: [id number] : 1950 Provider: Dr. Tino nuñez MD Age/Sex: 74/M Location: [facility] Status: Signed Intake Vital Signs 03/02/24 09:14 04/07/24 08:45 Height 5 ft 3 in 5 ft 3 in Weight: 216 lb 217 lb 6 oz BMI 38.2 38.5 BP 110/70 100/70 Blood Pressure Location Lt brachial Lt brachial Position Sitting Sitting Respiration 17 17 Pulse 61 69 Pulse Source Monitor Monitor Temp 97.8 F 98.6 F Temp Source Temporal Temporal Pulse Oximetry (%) 97 99 Oxygen Delivery Method room air room air Intake Visit Reasons: B12 inject Chief Complaint: Is patient in pain?: Yes Allergies acetaminophen (From Tylenol) Allergy (Severe, Verified 01/30/24 10:31) Anaphylaxis Penicillins Allergy (Severe, Verified 01/30/24 10:31) Other hydromorphone HCl (From Dilaudid) Adverse Reaction (Severe, Verified 01/30/24 10:31) Other Have you fallen in the past year?: No Office Meds cyanocobalamin (vitamin B-12) 1,000 mcg/mL injection solution Performing Provider: Tino Gamble MD Performing Location: [facility] Administered by: Reina Curry on 04/07/24 08:47 Dose Route Admin Location Dispensed Lot Number Expiration Date [facility] Jose Luis ufacturer 1,500 mcg IM left deltoid 1.5 mL [id number] 07/17/26 04645-872-35 CAYDEN HDEZ Comments: The patient presents for B12 injection for treatment of fatigue. He has fatigue. His last B12 injection was of benefit for fatigue. The patient is awake and alert. B12 1500mcg IM was administered today. There were no complications. Assessment and Plan Assessment and Plan (1) Fatigue: Status: Chronic Qualifiers: Fatigue type: unspecified Qualified Code(s): R53.83 - Other fatigue Orders: Orders Vitamin B12 Today R53.83 - Other fatigue Clinical Quality Measures Falls Risk Screening/Assistive Devices Have you fallen in the past year?: No 04/07/24 1651 Date Tino Gamble MD Cosigner Signature: Date (if applicable) CC: Normal [facility] Office Visit Reporton 2023 Office Visit Report [facility] [address] [place] [address] OFFICE VISIT Date of Service: 03/02/24 MR#: [id number] Acct: [id number] Patient: GRACIE LEMONS Rep #: [id number] : 1950 Provider: Dr. Tino nuñez MD Age/Sex: 74/M Location: [facility] Status: Signed Intake Vital Signs 01/30/24 10:28 03/02/24 09:14 Height 5 ft 3 in 5 ft 3 in Weight: 216 lb BMI 38.2 BP 110/70 Blood Pressure Location Lt brachial Position Sitting Respiration 17 Pulse 61 Pulse Source Monitor Temp 97.8 F Temp Source Temporal Pulse Oximetry (%) 97 Oxygen Delivery Method room air Intake Visit Reasons: B12 inject Chief Complaint: Allergies acetaminophen (From Tylenol) Allergy (Severe, Verified 01/30/24 10:31) Anaphylaxis Penicillins Allergy (Severe, Verified 01/30/24 10:31) Other hydromorphone HCl (From Dilaudid) Adverse Reaction (Severe, Verified 01/30/24 10:31) Other Have you fallen in the past year?: Yes Office Meds cyanocobalamin (vitamin B-12) 1,000 mcg/mL injection solution Performing Provider: Tino Gamble MD Performing Location: [facility] Administered by: Reina Curry on 03/02/24 09:20 Dose Route Admin Location Dispensed Lot Number Expiration Date NDShruti nagelurer 1,500 mcg IM LEFT DELTOID 1.5 mL [id number] 04/16/26 13915-324-33 CAYDEN HDEZ Comments: The patient presents for B12 injection for treatment of fatigue. He has fatigue. His last B12 injection was of benefit for fatigue. The patient is awake and alert. B12 1500mcg IM was administered today. There were no complications. Assessment and Plan Assessment and Plan (1) Fatigue: Status: Chronic Qualifiers: Fatigue type: unspecified Qualified Code(s): R53.83 - Other fatigue Orders: Orders Vitamin B12 Today R53.83 - Other fatigue Clinical Quality Measures Falls Risk Screening/Assistive Devices Have you fallen in the past year?: Yes 03/02/24 1704 Date [facility]: Date (if applicable) CC: Normal [facility] Spine Lumbar W/WO Contraston 02-28-2024 Spine Lumbar W/WO Contrast [facility] [address] [place] [address] [id number] Spine Lumbar W/WO Contrast MR#: [id number] Acct: [id number] Name: GRACIE LEMONS Rep #: [id number] : 1950 M 74 From: Paco Whitfield MD PCP: Dr. Connor Kohli MD Status: REG CLI Study: Spine Lumbar W/WO Contrast Date of Exam: 02/15 09/07 Exam# [id number] Ordering Dr: Tino Gamble MD [id number] STUDY: MRI LUMBAR SPINE WITH AND WITHOUT CONTRAST REASON FOR EXAM: Male, 74 years old. gait disorder; Hx lumbar surgery; sciatica: LBP TECHNIQUE: Standardized fat and water weighted pulse sequences were obtained in the sagittal and axial planes. IV 19cc clariscan was administered for the contrast portion of the examination. COMPARISON: July 04, 2022. FINDINGS: T12-L1: Normal endplates. Normal disc height, desiccation and normal morphology. Normal bilateral facet joints. Normal central canal and bilateral lateral recesses. Normal bilateral intervertebral neural foramina. Normal lumbar lordosis. There is no substantial scoliosis. Normal conus medullaris that terminates at T12-L1 L1-2: Normal endplates. Normal disc height, desiccation and normal morphology. Normal bilateral facet joints. Normal central canal and bilateral lateral recesses. Normal bilateral intervertebral neural foramina. L2-3:: Narrowed disc space with desiccation of the disc and mild annular bulge.. Bilateral facet arthropathy. Mild narrowing of the central canal and normal bilateral lateral recesses.. Moderate bilateral neural foraminal stenosis exaggerated by shortened pedicles L3-4: Postop change status post bilateral laminectomy posterior fusion. Narrowed disc space with desiccation of the disc and minimal osteophytic ridging. Normal central canal and bilateral lateral recesses. Minor bilateral neural foraminal encroachment. Posterior to the L3 vertebral body, there is bony hypertrophy on the right compressing the right posterolateral aspect of the thecal sac L4-5: Postop change status post bilateral laminectomy and posterior fusion Normal endplates. Narrowed disc space with desiccation of the disc demonstrating normal morphology. Normal bilateral facet joints. Normal central canal and bilateral lateral recesses. Normal bilateral intervertebral neural foramina. There are small droplets of fluid in the soft tissues posterior to the epidural fat. L5-S1: Postop change status post bilateral laminectomy facetectomy and posterior fusion Grade 1 spondylolisthesis Normal endplates. Normal disc height, desiccation mild bulging disc osteophyte complex. Normal bilateral facet joints. Normal central canal and bilateral lateral recesses. Normal bilateral intervertebral neural foramina. Normal visualized sacral ala. Normal visualized paraspinous soft tissue structures. No enhancing lesions following contrast administration MRI/Spine Lumbar W/WO Contrast IMPRESSION: No evidence for acute fracture or other significant bony pathology. Postsurgical changes at L3-4, L4-5 and L5-S1 Spinal stenosis at L2-3 secondary to annular bulge facet arthropathy and exaggerated by foreshortened pedicles Right lateral recess stenosis and compression of the thecal sac posterior to the L3 vertebral body secondary to bony hypertrophy Electronically Signed: Paco Whitfield MD at 21:55 EDT , CC: Dr. Connor Kohli MD; Dr. Tino Gamble MD Gear Roller: Signed Normal [facility] Comprehensive Metabolic Prof ilon 02-04-2024 Albumin [Mass/Vol] 3.4 g/dL Normal 3.2-5.0 [facility] Comment on above: Performed By: #### L 500.4100, L500.4050, L506.1000, L501.9985 #### [facility] [address] [place], [address] Albumin/Globulin [Mass ratio] 0.8 {ratio} Low 0.9-2.4 [facility] Comment on above: Performed By: #### L 500.4100, L500.4050, L506.1000, L501.9985 #### [facility] [address] [place], [address] ALK P 72 U/L Normal 45-117 [facility] Comment on above: Performed By: #### L 500.4100, L500.4050, L506.1000, L501.9985 #### [facility] [address] [place], [address] ALT [Catalytic activity/Vol] 45 U/L Normal 16-61 [facility] Comment on above: Performed By: #### L 500.4100, L500.4050, L506.1000, L501.9985 #### [facility] [address] [place], [address] AST [Catalytic activity/Vol] 49 U/L High 15-37 [facility] Comment on above: Performed By: #### L 500.4100, L500.4050, L506.1000, L501.9985 #### [facility] [address] [place], [address] Bilirubin [Mass/Vol] 0.40 mg/dL Normal 0.20-1.00 [facility] Comment on above: Result Comment: For patients on eltrombopag therapy, use of Dimension [place] TBIL is not recommended. Performed By: #### L 500.4100, L500.4050, L506.1000, L501.9985 #### [facility] [address] [place], [address] BUN/CRE 9.9 RATIO Low 10-20 [facility] Comment on above: Performed By: #### L 500.4100, L500.4050, L506.1000, L501.9985 #### [facility] [address] [place], [address] CA,Total 9.6 mg/dL Normal 8.5-10.1 [facility] Comment on above: Performed By: #### L 500.4100, L500.4050, L506.1000, L501.9985 #### [facility] [address] [place], [address] Chloride [Moles/Vol] 106 mmol/L Normal 98-107 [facility] Comment on above: Performed By: #### L 500.4100, L500.4050, L506.1000, L501.9985 #### [facility] [address] [place], [address] CO2 [Moles/Vol] 26.0 mmol/L Normal 21.0-32.0 [facility] Comment on above: Performed By: #### L 500.4100, L500.4050, L506.1000, L501.9985 #### [facility] [address] [place], [address] Creatinine [Mass/Vol] 1.31 mg/dL High 0.70-1.30 [facility] Comment on above: Result Comment: The validity of the calculated GFR GFRAA in patients over 70 years has not been determined. Clinical correlation is essential. Performed By: #### L 500.4100, L500.4050, L506.1000, L501.9985 #### [facility] [address] [place], [address] EST GFR - AA 69 mL/min Normal >60 [facility] Comment on above: Result Comment: Afri can [place] GFR Calc Performed By: #### L 500.4100, L500.4050, L506.1000, L501.9985 #### [facility] [address] [place], [address] GAP 5 Normal 5-15 [facility] Comment on above: Performed By: #### L 500.4100, L500.4050, L506.1000, L501.9985 #### [facility] [address] [place], [address] GFR/1.73 sq M.predicted among non-blacks MDRD (S/P/Bld) [Vol rate/Area] 57 mL/min/{1.73_m2} Low >60 [facility] Comment on above: Result Comment: Non- GFR Calc Performed By: #### L 500.4100, L500.4050, L506.1000, L501.9985 #### [facility] [address] [place], [address] Globulin (S) [Mass/Vol] 4.0 g/dL Normal 2.2-4.2 [facility] Comment on above: Performed By: #### L 500.4100, L500.4050, L506.1000, L501.9985 #### [facility] [address] [place], [address] Glucose [Mass/Vol] 186 mg/dL High 74-106 [facility] Comment on above: Result Comment: Fast ing Glucose result greater than or equal to 126 mg/dL suggests DIABETES MELLITUS per A.D.A. criteria. Performed By: #### L 500.4100, L500.4050, L506.1000, L501.9985 #### [facility] [address] [place], [address] Potassium [Moles/Vol] 4.3 mmol/L Normal 3.5-5.1 [facility] Comment on above: Performed By: #### L 500.4100, L500.4050, L506.1000, L501.9985 #### [facility] [address] [place], [address] Sodium [Moles/Vol] 137 mmol/L Normal 136-145 [facility] Comment on above: Performed By: #### L 500.4100, L500.4050, L506.1000, L501.9985 #### [facility] [address] [place], [address] T PROT 7.4 g/dL Normal 6.4-8.2 [facility] Comment on above: Performed By: #### L 500.4100, L500.4050, L506.1000, L501.9985 #### [facility] [address] [place], [address] Urea nitrogen [Mass/Vol] 13 mg/dL Normal 7-18 [facility] Comment on above: Performed By: #### L 500.4100, L500.4050, L506.1000, L501.9985 #### [facility] [address] [place], [place], [address] Hemoglobin A1con 02-04-2024 HbA1c (Bld) [Mass fraction] 7.9 % High 3.8-5.6 [facility] Comment on above: Result Comment: Norm al < 5.7 % Prediabetic 5.7 - 6.4 % Diabetic >or= 6.5 % Please note range changes. Performed By: #### L 500.4100, L500.4050, L506.1000, L501.9985 #### [facility] [address] [place], [place], [address] Thyroid Stim Hormone (TSH)on 02-04-2024 TSH 2.450 uIU/mL Normal 0.358-3.74 0 [facility] Comment on above: Performed By: #### L 500.4100, L500.4050, L506.1000, L501.9905 #### [facility] [address] [place], [place], [address] Neurology Visit Reporton Neurology Visit Report [facility] [address], [address] [place], [place] [address] OFFICE VISIT Date of Service: 01/30/24 MR#: [id number] Acct: [id number] Name: GRACIE LEMONS Rep #: [id number] : 1950 Provider: Dr. Tino nuñez MD Age/Sex: 74/M Location: [facility] Status: Signed HPI [facility] Chief Complaint: Details: Interim History: Gracie returns for follow-up visit. He has a history of hypertension, diabetes mellitus, psoriasis, hyperlipidemia, chronic renal insufficiency, paroxysmal atrial fibrillation, coronary artery disease status post coronary artery stent placement 2012, obstructive sleep apnea (on CPAP), intracranial meningioma resection in 2002 (with multiple subsequent intracranial surgical procedures performed for complications related to Staphylococcus infections) and stroke in 2002 who presents for evaluation of bilateral lower extremity weakness. Since 2020, he has been experiencing periods of weakness in the lower extremities that occur after ambulating 20 or 30 yards or if he stands after a period of prolonged sitting. He also experiences vague left lower extremity numbness extending from the hamstrings to the calf (and to a lesser degree on the right) when he ambulates. He also experiences right lower extremity radicular pain when he ambulates. If after walking, he sits to rest, he is able to rise again and ambulate for short distances prior to recurrence of his symptoms. Since his visit in November 2022 he has had 5 or more further episodes of transient feeling of lower extremity weakness including episodes earlier in 2023. He has a history of low back pain and left lower extremity radicular pain and left foot drop for which he underwent a multilevel (L3-S1) lumbar discectomies and fusion around 2012 and had resolution of his left lower extremity radicular pain and significant reduction of his low back pain though he continues to have left foot drop. Noninvasive arterial studies of the lower extremities in February 2022 did not reveal any significant arterial vascular compromise. A lumbar MRI in 2022 revealed postsurgical changes of the lumbar spine with adequate central canal decompression; no severe foraminal compromise was noted. EMG/nerve conduction studies of the lower extremities in 2021 revealed a sensorimotor polyneuropathy. He was evaluated by an orthopedic surgeon, Dr. Story, and the patient reported that further lumbar surgery was not felt to be indicated. Physical therapy in 2022 was not of benefit for his foot drop/gait. In 2002, he had a syncopal episode and on evaluation of this was noted to have an intracranial meningioma. This was resected later in 2002. 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 The left-sided burning pain has been adequately controlled with nortriptyline and gabapentin. He has not had symptoms suggestive of recurrent stroke since his stroke in 2002. He was placed on clopidogrel following a coronary artery stent placement in 2012. His intracranial meningioma resection was complicated by postoperative Staphylococcus infections for which he underwent multiple intracranial surgical procedures. In 2003, he had a single clonic seizure with loss of consciousness followed by postictal confusion and lethargy. He stated that on evaluation, treatment with anticonvulsant medication was not felt to be warranted. Records indicate a prior history of paroxysmal atrial fibrillation however per the patient's description, it does not appear that this was an ongoing condition and he is not on anticoagulant therapy. He had an umbilical hernia repair in the past and this has recurred. He has had bilateral cataract surgery. He reported having some blurring of vision that is corrected with glasses. He denied having headaches or hearing loss. He has fatigue. He has B12 level was near the low end of the normal range. His serum free light chains was abnormal. A disability placard was previously prescribed. His lumbar x-rays with flexion/extension views in 2022, reveal a static grade 2 spondylolisthesis at L5-S1 and stable instrumented fixation at L3, L4, L5 and S1 as well as multilevel degenerative joint/disc disease. Prior lumbar MRI from June 2022 reveals postoperative changes and no significant central canal stenosis. He has some low back pain. Physical Exam: Neuro: The patient is awake and alert and responds appropriately; speech is fluent; motor strength is 5/5 in the iliopsoas bilaterally, quadriceps bilaterally and right foot dorsiflexors and 4/5 in the left foot dorsiflexors; gait is mildly (more content not included)... Normal [facility] Office Visit Reporton 2023 Office Visit Report [facility] [address] [place] [address] OFFICE VISIT Date of Service: 12/26/23 MR#: [id number] Acct: [id number] Patient: GRACIE LEMONS Rep #: [id number] : 1950 Provider: Dr. Tino nuñez MD Age/Sex: 73/M Location: [facility] Status: Signed Intake Vital Signs 11/25/23 08:47 12/02/23 10:48 12/26/23 08:54 Height 5 ft 3 in 5 ft 3 in 5 ft 3 in Weight: 213 lb 210 lb 214 lb 10 oz BMI 37.7 37.2 38.0 BP 102/64 112/73 116/70 Blood Pressure Location Lt brachial Lt brachial Lt brachial Position Sitting Sitting Sitting Respiration 17 18 17 Pulse 68 61 64 Pulse Source Monitor Monitor Monitor Temp 98.2 F 98.4 F Temp Source Temporal Temporal Pulse Oximetry (%) 95 95 Oxygen Delivery Method room air room air Intake Visit Reasons: B-12 INJECTION Chief Complaint: Allergies acetaminophen (From Tylenol) Allergy (Severe, Verified 12/02/23 10:52) Anaphylaxis Penicillins Allergy (Severe, Verified 12/02/23 10:52) Other hydromorphone HCl (From Dilaudid) Adverse Reaction (Severe, Verified 12/02/23 10:52) Other Have you fallen in the past year?: Yes Office Meds cyanocobalamin (vitamin B-12) 1,000 mcg/mL injection solution Performing Provider: Tino Gamble MD Performing Location: [facility] Administered by: Reina Curry on 12/26/23 08:44 Dose Route Admin Location Dispensed Lot Number Expiration Date [facility] Man ufacturer 1,500 mcg IM left deltoid 1.5 mL [id number] 03/16/26 08400-483-88 CAYDEN HDEZ Comments: The patient presents for B12 injection for treatment of fatigue. He has fatigue. His last B12 injection was of benefit for fatigue. The patient is awake and alert. B12 1500mcg IM was administered today. There were no complications. Assessment and Plan Assessment and Plan (1) Fatigue: Status: Chronic Qualifiers: Fatigue type: unspecified Qualified Code(s): R53.83 - Other fatigue Orders: Orders Vitamin B12 Today R53.83 - Other fatigue Clinical Quality Measures Falls Risk Screening/Assistive Devices Have you fallen in the past year?: Yes 12/26/23 1126 Date Tino Gamble MD Cosigner Signature: Date (if applicable) CC: Normal [facility] Cardiology Visit Reporton Cardiology Visit Report [facility] [address] [place] [address] OFFICE VISIT Date of Service: 12/02/23 MR#: [id number] Acct: [id number] Name: GRACIE LEMONS Rep #: [id number] : 1950 Provider: Dr. Alyson Collier MD Age/Sex: 73/M Location: [facility] [facility] Status: Signed [facility] History of Present Illness Details: This gentleman with history of coronary artery disease is here for follow-up visit. He denies any angina. No shortness of breath. His major complaint continues to be of weak spells. According to him, if he is walking, sometimes he feels very weak from the waist down. Denies any lightheadedness or dizziness. No syncope or presyncope. According to him, when his weak spells happen, he either has to sit down or grab hold of something to prevent himself from falling. Intake Vital Signs 10/21/23 08:33 11/25/23 08:47 12/02/23 10:48 Height 5 ft 3 in 5 ft 3 in 5 ft 3 in Weight: 215 lb 3 oz 213 lb 210 lb BMI 38.1 37.7 37.2 BP 100/62 102/64 112/73 Blood Pressure Location Lt brachial Lt brachial Lt brachial Position Sitting Sitting Respiration 17 17 18 Pulse 77 68 61 Pulse Source Monitor Monitor Monitor Temp 98.6 F 98.2 F Pulse Oximetry (%) 92 95 Oxygen Delivery Method room air room air Intake Visit Reasons: 6 M Flexo Operator Required: No Accompanied by: Self Is patient in pain?: No Allergies acetaminophen (From Tylenol) Allergy (Severe, Verified 12/02/23 10:52) Anaphylaxis Penicillins Allergy (Severe, Verified 12/02/23 10:52) Other hydromorphone HCl (From Dilaudid) Adverse Reaction (Severe, Verified 12/02/23 10:52) Other Medications ???Medication ???Instructions ???Recorded ???Confirmed ???Type nortriptyline 25 mg capsule 25 mg PO QHS nerve pain 04/23/13 12/02/23 History pantoprazole 40 mg tablet,delayed 40 mg PO DAILY acid reflux 04/23/13 12/02/23 History release finasteride 5 mg tablet 5 mg PO DAILY prostate 10/12/16 12/02/23 History cholecalciferol (vitamin D3) 25 5,000 unit PO DAILY DEFICIENCY 05/05/18 12/02/23 History mcg (1,000 unit) capsule adalimumab 10 mg/0.2 mL 40 mg subcut Q2W arthritis 10/21/18 12/02/23 History subcutaneous syringe kit (Humira) nitroglycerin 0.4 mg sublingual 0.4 mg sublingual Q5-15M PRN chest 10/26/20 12/02/23 Rx tablet pain #25 tabs oxybutynin chloride 10 mg 10 mg PO QPM 05/21/22 12/02/23 History tablet,extended release 24 hr Disability Placard #1 ea 11/29/22 12/02/23 Rx ezetimibe 10 mg tablet 10 mg PO QHS to lower cholesterol 01/24/23 12/02/23 Rx #90 tabs clopidogrel 75 mg tablet 75 mg PO DAILY 05/16/23 12/02/23 History empagliflozin 12.5 mg-metformin ER 2 tab PO DAILY Diabetes 05/16/23 12/02/23 History 1,000 mg tablet,extended rel 24 hr (Synjardy XR) levothyroxine 50 mcg tablet 50 mcg PO DAILY 05/16/23 12/02/23 History metoprolol tartrate 100 mg tablet 100 mg PO BID 05/16/23 12/02/23 History lisinopril 20 mg tablet See Rx Instructions .Route 07/15/23 12/02/23 Rx .COMPLEX #90 tabs Left AFO #1 ea 09/30/23 12/02/23 Rx dulaglutide 0.75 mg/0.5 mL 0.75 mg subcut QWEEK 12/02/23 12/02/23 History subcutaneous pen injector (Trulicity) glimepiride 2 mg tablet 2 mg PO QDAY 12/02/23 12/02/23 History tamsulosin 0.4 mg capsule 0.4 mg PO QDAY 12/02/23 12/02/23 History Ejection fraction %: 55 PFSH Medical History (Updated 12/02/23 @ 11:[address] 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 Chest pain Fatigue PALOMO (dyspnea on exertion) Sinus tachycardia COVID-19 Presence of stent in coronary artery ( 04/30/13) Pure hypercholesterolemia Essential hypertension Diabetes Claudication in peripheral vascular disease Left ventricular hypertrophy Paroxysmal atrial fibrillation Atherosclerotic heart disease of [place] coronary artery without angina pectoris Surgical History History of lumbosacral spine surgery Presence of coronary angioplasty implant and graft ( 04/30/13) History of resection of meningioma Hx of cataract surgery History of lumbar surgery Family History Mother CAD (coronary artery disease) Sister CAD (coronary artery disease) Father Heart disease Social History Smoking Status: Never smoker alcohol intake: never substance use type: does not use caffeine: Yes Type: carbonated beverages Number of servings: 1 what type of physi (more content not included)... Normal [facility] Office Visit Reporton 2023 Office Visit Report [facility] [address] [place] [address] OFFICE VISIT Date of Service: 11/25/23 MR#: [id number] Acct: [id number] Patient: GRACIE LEMONS Rep #: [id number] : 1950 Provider: Dr. Tino nuñez MD Age/Sex: 73/M Location: [facility] Status: Signed Intake Vital Signs 09/30/23 11:00 10/21/23 08:33 11/25/23 08:47 Height 5 ft 3 in 5 ft 3 in 5 ft 3 in Weight: 215 lb 3 oz 213 lb BMI 38.1 37.7 BP 100/62 102/64 Blood Pressure Location Lt brachial Lt brachial Position Sitting Respiration 17 17 Pulse 77 68 Pulse Source Monitor Monitor Temp 98.6 F 98.2 F Temp Source Temporal Temporal Pulse Oximetry (%) 92 95 Oxygen Delivery Method room air room air Intake Visit Reasons: B12 inject Chief Complaint: Allergies acetaminophen (From Tylenol) Allergy (Severe, Verified 09/30/23 11:04) Anaphylaxis Penicillins Allergy (Severe, Verified 09/30/23 11:04) Other hydromorphone HCl (From Dilaudid) Adverse Reaction (Severe, Verified 09/30/23 11:04) Other Office Meds cyanocobalamin (vitamin B-12) 1,000 mcg/mL injection solution Performing Provider: Tino Gamble MD Performing Location: [facility] Administered by: Reina Curry on 11/25/23 08:46 Dose Route Admin Location Dispensed Lot Number Expiration Date DEACON Amaya ufacturer 1,500 mcg IM left deltoid 1.5 mL [id number] 03/16/26 28856-120-09 CAYDEN HDEZ Comments: The patient presents for B12 injection for treatment of fatigue. He has fatigue. His last B12 injection was of benefit for fatigue. The patient is awake and alert. B12 1500mcg IM was administered today. There were no complications. Assessment and Plan Assessment and Plan (1) Fatigue: Status: Chronic Qualifiers: Fatigue type: unspecified Qualified Code(s): R53.83 - Other fatigue Orders: Orders Vitamin B12 Today R53.83 - Other fatigue 11/25/23 1515 Date Tino Gamble MD Cosigner Signature: Date (if applicable) CC: Normal [facility] Microalb:Creat Ratio,Random URon 11-22-2023 Creatinine [Mass/Vol] 109.00 mg/dL Normal NO RAN GE EST. [facility] Comment on above: Performed By: #### L 500.4100, L500.4050, L506.1000, L501.9985 #### [facility] [address] [place], [address] MALB:CRE 7.1 mg/g CRE Normal <30 mg/g CRE [facility] Comment on above: Performed By: #### L 500.4100, L500.4050, L506.1000, L501.9985 #### [facility] [address] [place], [address] MICROALBUMIN,UR 7.7 mg/L Normal NO RANGE EST. [facility] Comment on above: Performed By: #### L 500.4100, L500.4050, L506.1000, L501.9985 #### [facility] [address] [place], [address] Comprehensive Metabolic Prof ilon 11-19-2023 Albumin [Mass/Vol] 3.2 g/dL Normal 3.2-5.0 [facility] Comment on above: Performed By: #### L 500.4100, L500.4050, L506.1000, L501.9985 #### [facility] [address] [place], [address] Albumin/Globulin [Mass ratio] 0.8 {ratio} Low 0.9-2.4 [facility] Comment on above: Performed By: #### L 500.4100, L500.4050, L506.1000, L501.9985 #### [facility] [address] [place], [address] ALK P 64 U/L Normal 45-117 [facility] Comment on above: Performed By: #### L 500.4100, L500.4050, L506.1000, L501.9985 #### [facility] [address] [place], [address] ALT [Catalytic activity/Vol] 37 U/L Normal 16-61 [facility] Comment on above: Performed By: #### L 500.4100, L500.4050, L506.1000, L501.9985 #### [facility] [address] [place], [address] AST [Catalytic activity/Vol] 38 U/L High 15-37 [facility] Comment on above: Performed By: #### L 500.4100, L500.4050, L506.1000, L501.9985 #### [facility] [address] [place], [address] Bilirubin [Mass/Vol] 0.50 mg/dL Normal 0.20-1.00 [facility] Comment on above: Result Comment: For patients on eltrombopag therapy, use of Dimension [place] TBIL is not recommended. Performed By: #### L 500.4100, L500.4050, L506.1000, L501.9985 #### [facility] [address] [place], [address] BUN/CRE 9.4 RATIO Low 10-20 [facility] Comment on above: Performed By: #### L 500.4100, L500.4050, L506.1000, L501.9985 #### [facility] [address] [place], [address] CA,Total 8.9 mg/dL Normal 8.5-10.1 [facility] Comment on above: Performed By: #### L 500.4100, L500.4050, L506.1000, L501.9985 #### [facility] [address] [place], [address] Chloride [Moles/Vol] 108 mmol/L High 98-107 [facility] Comment on above: Performed By: #### L 500.4100, L500.4050, L506.1000, L501.9985 #### [facility] [address] [place], [address] CO2 [Moles/Vol] 24.0 mmol/L Normal 21.0-32.0 [facility] Comment on above: Performed By: #### L 500.4100, L500.4050, L506.1000, L501.9985 #### [facility] [address] [place], [address] Creatinine [Mass/Vol] 1.28 mg/dL Normal 0.70-1.30 [facility] Comment on above: Result Comment: The validity of the calculated GFR GFRAA in patients over 70 years has not been determined. Clinical correlation is essential. Performed By: #### L 500.4100, L500.4050, L506.1000, L501.9985 #### [facility] [address] [place], [address] EST GFR - AA 71 mL/min Normal >60 [facility] Comment on above: Result Comment: Afri can [place] GFR Calc Performed By: #### L 500.4100, L500.4050, L506.1000, L501.9985 #### [facility] [address] [place], [address] GAP 7 Normal 5-15 [facility] Comment on above: Performed By: #### L 500.4100, L500.4050, L506.1000, L501.9985 #### [facility] [address] [place], [address] GFR/1.73 sq M.predicted among non-blacks MDRD (S/P/Bld) [Vol rate/Area] 58 mL/min/{1.73_m2} Low >60 [facility] Comment on above: Result Comment: Non- GFR Calc Performed By: #### L 500.4100, L500.4050, L506.1000, L501.9985 #### [facility] [address] [place], [address] Globulin (S) [Mass/Vol] 4.0 g/dL Normal 2.2-4.2 [facility] Comment on above: Performed By: #### L 500.4100, L500.4050, L506.1000, L501.9985 #### [facility] [address] [place], [address] Glucose [Mass/Vol] 135 mg/dL High 74-106 [facility] Comment on above: Result Comment: Fast ing Glucose result greater than or equal to 126 mg/dL suggests DIABETES MELLITUS per A.D.A. criteria. Performed By: #### L 500.4100, L500.4050, L506.1000, L501.9985 #### [facility] [address] [place], [address] Potassium [Moles/Vol] 4.0 mmol/L Normal 3.5-5.1 [facility] Comment on above: Performed By: #### L 500.4100, L500.4050, L506.1000, L501.9985 #### [facility] [address] [place], [address] Sodium [Moles/Vol] 139 mmol/L Normal 136-145 [facility] Comment on above: Performed By: #### L 500.4100, L500.4050, L506.1000, L501.9985 #### [facility] [address] [place], [address] T PROT 7.2 g/dL Normal 6.4-8.2 [facility] Comment on above: Performed By: #### L 500.4100, L500.4050, L506.1000, L501.9985 #### [facility] [address] [place], [address] Urea nitrogen [Mass/Vol] 12 mg/dL Normal 7-18 [facility] Comment on above: Performed By: #### L 500.4100, L500.4050, L506.1000, L501.9985 #### [facility] [address] [place], [address] Hemoglobin A1con 11-19-2023 HbA1c (Bld) [Mass fraction] 6.8 % High 3.8-5.6 [facility] Comment on above: Result Comment: Norm al < 5.7 % Prediabetic 5.7 - 6.4 % Diabetic >or= 6.5 % Please note range changes. Performed By: #### L 500.4100, L500.4050, L506.1000, L501.9985 #### [facility] [address] [place], [address] Lipid Profileon 11-19-2023 Cholesterol [Mass/Vol] 96 mg/dL Normal 200 [facility] Comment on above: Result Comment: <200 mg/dL Desirable 200-240 mg/dL Borderline >240 mg/dL High Risk Performed By: #### L 500.4100, L500.4050, L506.1000, L501.9985 #### [facility] [address] [place], [address] Cholesterol in HDL [Mass/Vol] 44 mg/dL Normal [facility] Comment on above: Result Comment: The drugs N-Acetylcysteine and Metamizole may falsely depress this assay. Reference Range HDL <40 mg/dL Low HDL Cholesterol HDL >or= 60 mg/dL High HDL Cholesterol Performed By: #### L 500.4100, L500.4050, L506.1000, L501.9985 #### [facility] [address] [place], [address] Cholesterol in LDL [Mass/Vol] 32 mg/dL Normal 0-130 [facility] Comment on above: Performed By: #### L 500.4100, L500.4050, L506.1000, L501.9985 #### [facility] [address] [place], [address] Cholesterol in VLDL [Mass/Vol] 20 mg/dL Normal 5-40 [facility] Comment on above: Performed By: #### L 500.4100, L500.4050, L506.1000, L501.9985 #### [facility] [address] [place], [address] Triglyceride [Mass/Vol] 101 mg/dL Normal [facility] Comment on above: Result Comment: The drugs N-Acetylcysteine and Metamizole may falsely depress this assay. Serum Triglycerides Reference Interval Normal <150 mg/dL Borderline high 150 - 199 mg/dL High 200 - 499 mg/dL Very High > or = 500 mg/dL Performed By: #### L 500.4100, L500.4050, L506.1000, L501.9985 #### [facility] [address] [place], [place], [id number] Thyroid Stim Hormone (TSH)on 11-19-2023 TSH 2.11 uIU/mL Normal 0.358-3.74 [facility] Comment on above: Performed By: #### L 500.4100, L500.4050, L506.1000, L501.9985 #### [facility] [address] [place], [address] Absolute lymphocyte countOrd ered By: Tita Caputo on 09-19-2023 Lymphocytes Auto (Unsp spec) [#/Vol] 3.11 10*3/uL 0.83-4.51 [facility] Automated lymphocyte count a s percentage of total leukocytesOrdered By: Tita Caputo on 09-19-2023 Lymphocytes/100 WBC Auto (Unsp spec) 37.0 % 19-41 [facility] Basophil percentageOrdered B y: Tita Caputo on 09-19-2023 Basophils/100 WBC (Bld) 0.8 % 0-1 [facility] Bilirubin [Mass/Vol] 0.40 mg/dL 0.20-1.00 [facility] Comment on above: For patients on eltr ombopag therapy, use of Dimension [place] TBIL is not recommended. Eosinophils/100 WBC (Bld) 8.5 % 0-5 [facility] Hemoglobin (Bld) [Mass/Vol] 15.9 g/dL 13.0-16.5 [facility] Monocytes/100 WBC (Bld) 13.1 % 0-10 [facility] Neutrophils (Bld) [#/Vol] 3.4 10*3/uL 2.0-7.7 [facility] Neutrophils/100 WBC (Bld) 40.5 % 47-70 [facility] Protein [Mass/Vol] 7.0 g/dL 6.4-8.2 [facility] Testosterone [Mass/Vol] 326 ng/dL 264-916 [facility] Comment on above: Adult male reference interval is based on a population ofhealthy nonobese males (BMI <30) between 19 and 39 yearsold. Dank et.al. JCEM 2017,102;8949-3590. PMID:[id number]. WBC (Bld) [#/Vol] 8.4 10*3/uL 4.4-11.0 [facility] Determination of erythrocyte mean corpuscular volume (MCV)Ordered By: Tita Caputo on 09-19-2023 MCV (RBC) [Entitic vol] 96.9 fL 80-94 [facility] Direct bilirubinOrdered By: Tita Caputo 09-19-2023 Bilirubin.direct [Mass/Vol] 0.15 mg/dL 0.00-0.30 [facility] Erythrocyte distribution wid th ratioOrdered By: Tita Caputo 09-19-2023 Erythrocyte distribution width (RBC) [Ratio] 13.0 % 11.6-14.6 [facility] Erythrocyte distribution wid th standard deviationOrdered By: Tita Caputo 09-19-2023 Erythrocyte distribution width (RBC) [Entitic vol] 46.1 fL 35.1-43.9 [facility] Free testosterone percentage Ordered By: Tita Caputo 09-19-2023 Testosterone Free/Testosterone.total [Mass fraction] 3.93 % 1.50-4.20 [facility] Hematocrit Auto (Bld) [Volum e fraction]Ordered By: Tita Caputo 09-19-2023 Hematocrit (Bld) [Volume fraction] 49.3 % 40-54 [facility] Immature granulocytes/100 WB C Auto (Bld)Ordered By: Tita Caputo 09-19-2023 Immature granulocytes/100 WBC (Bld) 0.100 % 0.0-0.9 [facility] Comment on above: IG% - Immature Granu locytes (promyelocytes, myelocytes and metamyelocytes) > 1% indicates that a LEFT SHIFT is Present. Iron measurement (mass/mass) Ordered By: Tita Caputo on 09-19-2023 Iron (Unsp spec) [Mass/Mass] 90 ug/dL 65-175 [facility] - Chemistry and C hemistry - challengeOrdered By: Tita Caputo 09-19-2023 ALP [Catalytic activity/Vol] 56 U/L 45-117 [facility] ALT [Catalytic activity/Vol] 48 U/L 16-61 [facility] CK [Catalytic activity/Vol] 250 U/L 39-308 [facility] Ferritin [Mass/Vol] 90 ng/mL 26-388 [facility] Globulin (S) [Mass/Vol] 3.6 g/dL 2.2-4.2 [facility] - Hematology and Cell countsOrdered By: Tita Caputo on 09-19-2023 MCH (RBC) [Entitic mass] 31.2 pg 27.0-32.0 [facility] MCHC (RBC) [Mass/Vol] 32.3 g/dL 32-36 [facility] Nucleated RBC/100 WBC (Bld) [Ratio] 0 % 0-5 [facility] Platelet mean volume (Bld) [Entitic vol] 10.6 fL 6.2-12.0 [facility] Platelets (Bld) [#/Vol] 192 10*3/uL 150-450 [facility] No Panel InformationOrdered By: Tita Caputo on 09-19-2023 Adrenocorticotropic Hormone 41.6 pg/mL 7.2-63.3 [facility] Comment on above: ACTH reference inter talisha for samples collected between 7 and10 AM.Performed at: - [facility] [address] [id number] Director: Petr Arzola PhD, Phone: [phone] at: - [facility] [address] [id number] Director: Cyrus Johnson MD, Phone: [phone] Folate 11.10 ng/mL 3.1-55.4 [facility] Vitamin D 25-Hydroxy 61.0 ng/mL [facility] Comment on above: Vitamin D 25(OH) Sta tus Range Deficiency <20 ng/mL (50nmol/L) Insufficiency 20 - 30 ng/mL (50 - 75 nmol/L) Sufficiency 30 - 100 ng/mL (75 - 250 nmol/L) Toxicity >100 ng/mL (>250 nmol/L) Qualitative QuantiFERON-TB g old in tube testOrdered By: Tita Caputo on 09-19-2023 M. tuberculosis tuberculin stim IFN-g Ql (Bld) 0.13 IU/mL . [facility] RBC Auto (Bld) [#/Vol]Ordere d By: Tita Caputo on 09-19-2023 RBC (Bld) [#/Vol] 5.09 10*6/uL 4.6-6.2 [facility] Serum or plasma cortisol jennifer surement (mass/volume)Ordered By: Tita Caputo on 09-19-2023 Cortisol [Mass/Vol] 17.80 ug/dL 3.44-22.45 [facility] Comment on above: Adult (AM) 5.27 - 22 .45 ug/dL Adult (PM) 3.44 - 16.76 ug/dLPlease note revised CORTISOL reference range effective 2019. Serum or plasma testosterone free measurement (mass/volume)Ordered By: Tita Caputo on 09-19-2023 Testosterone Free [Mass/Vol] 12.81 ng/dL 5.00-21.00 [facility] Thin prep Papanicolaou smear with manual screeningOrdered By: Tita Caputo on 09-19-2023 Thin prep Papanicolaou smear with manual screening 3.4 g/dL 3.2-5.0 [facility] Thin prep Papanicolaou smear with manual screening 50 U/L 15-37 [facility] Thin prep Papanicolaou smear with manual screening Comment . [facility] Comment on above: QuantiFERON-TB Gold Plus is a qualitative indirect test forM tuberculosis infection (including disease) and isintended for use in conjunction with risk assessment,radiography, and other medical and diagnostic evaluations.The QuantiFERON-TB Gold Plus result is determined bysubtracting the Nil value from either TB antigen (Ag)value. The Mitogen tube serves as a control for the test. Thin prep Papanicolaou smear with manual screening 0.16 IU/mL . [facility] Thin prep Papanicolaou smear with manual screening 0.17 IU/mL . [facility] Thin prep Papanicolaou smear with manual screening > 10.00 IU/mL . [facility] Thin prep Papanicolaou smear with manual screening Negative Negative [facility] Comment on above: No response to M tub erculosis antigens detected.Infection with M tuberculosis is unlikely, but high riskindividuals should be considered for additional testing(ATS/IDSA/CDC Clinical Practice Guidelines, 2017). Thereference range is an Antigen minus Nil result of <0.35IU/mL.The specimen received for QuantiFERON testing was incubatedby the ordering institution. Specific procedures outlinedin our Directory of Services and in the package insert forthe QuantiFERON Gold (In Tube) test must be followed toenable for proper stimulation of cells for the productionof interferon gamma. Chemiluminescence immunoassaymethodology Basophil percentageOrdered B y: Griffin Saldivar on 09-12-2023 Bilirubin [Mass/Vol] 0.60 mg/dL 0.20-1.00 [facility] Comment on above: For patients on eltr ombopag therapy, use of Dimension [place] TBIL is not recommended. Chloride [Moles/Vol] 106 mmol/L 98-107 [facility] Cholesterol [Mass/Vol] 87 mg/dL <200 [facility] Comment on above: <200 mg/dL Desirable 200-240 mg/dL Borderline >240 mg/dL High Risk Glucose [Mass/Vol] 139 mg/dL 74-106 [facility] Comment on above: Fasting Glucose resu lt greater than or equal to 126 mg/dL suggests DIABETES MELLITUS per A.D.A. criteria. Potassium [Moles/Vol] 3.9 mmol/L 3.5-5.1 [facility] Protein [Mass/Vol] 6.9 g/dL 6.4-8.2 [facility] Sodium [Moles/Vol] 140 mmol/L 136-145 [facility] Triglyceride [Mass/Vol] 94 mg/dL <199 [facility] Comment on above: The drugs N-Acetylcy steine and Metamizole may falsely depress this assay.Serum Triglycerides Reference Interval Normal <150 mg/dL Borderline high 150 - 199 mg/dL High 200 - 499 mg/dL Very High > or = 500 mg/dL Laboratory - Chemistry and C hemistry - challengeOrdered By: Griffin Saldivar on 09-12-2023 Albumin/Globulin [Mass ratio] 0.9 {ratio} 0.9-2.4 [facility] ALP [Catalytic activity/Vol] 59 U/L 45-117 [facility] ALT [Catalytic activity/Vol] 37 U/L 16-61 [facility] Cholesterol in HDL [Mass/Vol] 40 mg/dL >40 [facility] Comment on above: The drugs N-Acetylcy steine and Metamizole may falsely depress this assay. Reference Range HDL <40 mg/dL Low HDL Cholesterol HDL >or= 60 mg/dL High HDL Cholesterol Cholesterol in LDL [Mass/Vol] 28 mg/dL 0-130 [facility] CO2 [Moles/Vol] 28.0 mmol/L 21.0-32.0 [facility] Globulin (S) [Mass/Vol] 3.7 g/dL 2.2-4.2 [facility] Urea nitrogen/Creatinine [Mass ratio] 10.3 mg/mg 10-20 [facility] No Panel InformationOrdered By: Griffin Saldivar on 09-12-2023 Estimated GFR (MDRD) Amer 66 mL/min >60 [facility] Comment on above: GFR Calc Estimated GFR (MDRD) Non-Af Amer 55 mL/min >60 [facility] Comment on above: Non- GFR Calc VLDL Cholesterol 19 mg/dL 5-40 [facility] Serum or plasma calcium meño urement (mass/volume)Ordered By: Griffin Saldivar on 09-12-2023 Calcium [Mass/Vol] 9.0 mg/dL 8.5-10.1 [facility] Serum or plasma creatinine m easurement (mass/volume)Ordered By: Griffin Saldivar on 09-12-2023 Creatinine [Mass/Vol] 1.36 mg/dL 0.70-1.30 [facility] Comment on above: The validity of the calculated GFR & GFRAA in patients over 70 years has not been determined. Clinical correlation is essential. Serum or plasma urea nitroge n measurement (mass/volume)Ordered By: Griffin Saldivar on 09-12-2023 Urea nitrogen [Mass/Vol] 14 mg/dL 7-18 [facility] Thin prep Papanicolaou smear with manual screeningOrdered By: Griffin Saldivar on 09-12-2023 Thin prep Papanicolaou smear with manual screening 3.2 g/dL 3.2-5.0 [facility] Thin prep Papanicolaou smear with manual screening 45 U/L 15-37 [facility] Thin prep Papanicolaou smear with manual screening 6 5-15 [facility] Basophil percentageOrdered B y: Griffin Saldivar on 07-18-2023 Bilirubin [Mass/Vol] 0.50 mg/dL 0.20-1.00 [facility] Comment on above: For patients on eltr ombopag therapy, use of Dimension [place] TBIL is not recommended. Chloride [Moles/Vol] 110 mmol/L 98-107 [facility] Cholesterol [Mass/Vol] 178 mg/dL <200 [facility] Comment on above: <200 mg/dL Desirable 200-240 mg/dL Borderline >240 mg/dL High Risk Glucose [Mass/Vol] 140 mg/dL 74-106 [facility] Comment on above: Fasting Glucose resu lt greater than or equal to 126 mg/dL suggests DIABETES MELLITUS per A.D.A. criteria. Potassium [Moles/Vol] 4.2 mmol/L 3.5-5.1 [facility] Protein [Mass/Vol] 6.9 g/dL 6.4-8.2 [facility] Sodium [Moles/Vol] 140 mmol/L 136-145 [facility] Triglyceride [Mass/Vol] 134 mg/dL <199 [facility] Comment on above: The drugs N-Acetylcy steine and Metamizole may falsely depress this assay.Serum Triglycerides Reference Interval Normal <150 mg/dL Borderline high 150 - 199 mg/dL High 200 - 499 mg/dL Very High > or = 500 mg/dL Laboratory - Chemistry and C hemistry - challengeOrdered By: Griffin Saldivar on 07-18-2023 Albumin/Creatinine DL <= 1.0 mg/L (24H U) [Ratio] 4.9 mg/g CRE <30 [facility] Albumin/Globulin [Mass ratio] 0.9 {ratio} 0.9-2.4 [facility] ALP [Catalytic activity/Vol] 58 U/L 45-117 [facility] ALT [Catalytic activity/Vol] 43 U/L 16-61 [facility] Cholesterol in HDL (Body fld) [Mass/Vol] 46 mg/dL >40 [facility] Comment on above: The drugs N-Acetylcy steine and Metamizole may falsely depress this assay. Reference Range HDL <40 mg/dL Low HDL Cholesterol HDL >or= 60 mg/dL High HDL Cholesterol Cholesterol in LDL (Body fld) [Moles/Vol] 105 mg/dL 0-130 [facility] Cholesterol in VLDL Calc [Moles/Vol] 27 mg/dL 5-40 [facility] CO2 [Moles/Vol] 26.0 mmol/L 21.0-32.0 [facility] Globulin (S) [Mass/Vol] 3.7 g/dL 2.2-4.2 [facility] Urea nitrogen/Creatinine [Mass ratio] 12.2 mg/mg 10-20 [facility] No Panel InformationOrdered By: Griffin Saldivar on 07-18-2023 Estimated GFR (MDRD) Amer 64 mL/min >60 [facility] Comment on above: GFR Calc Estimated GFR (MDRD) Non-Af Amer 53 mL/min >60 [facility] Comment on above: Non- GFR Calc Serum or plasma calcium meño urement (mass/volume)Ordered By: Griffin Saldivar on 07-18-2023 Calcium [Mass/Vol] 8.9 mg/dL 8.5-10.1 [facility] Serum or plasma creatinine m easurement (mass/volume)Ordered By: Griffin Saldivar on 07-18-2023 Creatinine [Mass/Vol] 1.39 mg/dL 0.70-1.30 [facility] Comment on above: The validity of the calculated GFR & GFRAA in patients over 70 years has not been determined. Clinical correlation is essential. Serum or plasma urea nitroge n measurement (mass/volume)Ordered By: Griffin Saldivar on 07-18-2023 Urea nitrogen [Mass/Vol] 17 mg/dL 7-18 [facility] Thin prep Papanicolaou smear with manual screeningOrdered By: Griffin Saldivar on 07-18-2023 Thin prep Papanicolaou smear with manual screening 3.2 g/dL 3.2-5.0 [facility] Thin prep Papanicolaou smear with manual screening 25 U/L 15-37 [facility] Thin prep Papanicolaou smear with manual screening 4 5-15 [facility] Thin prep Papanicolaou smear with manual screening 6.2 mg/L NO RANGE EST. [facility] Urine creatinine measurement (mass/volume)Ordered By: Griffin Saldivar on 07-18-2023 Creatinine (U) [Mass/Vol] 127.00 mg/dL NO RANGE EST. [facility] Whole blood hemoglobin A1c/t otal hemoglobin ratio (mass fraction)Ordered By: Griffin Saldivar on 07-18-2023 HbA1c (Bld) [Mass fraction] 7.7 % 3.8-5.6 [facility] Comment on above: Normal < 5.7 % Predi abetic 5.7 - 6.4 % Diabetic >or= 6.5 % Please note range changes. No Panel InformationOrdered By: Avinash Lombardi on 05-14-2023 Prostate Specific Antigen Screen 0.52 ng/mL 0.00-4.00 [facility] Comment on above: This test was perfor med using the TPSA assay method for [employer] chemistry system. Values obtained with differentassay methods cannot be used interchangably.When changing PSA assays in the course of monitoring apatient, additional sequential testing should be carriedout to confirm baseline values. Basophil percentageOrdered B y: Anmol Ventura on 04-22-2023 Bilirubin [Mass/Vol] 0.40 mg/dL 0.20-1.00 [facility] Comment on above: For patients on eltr ombopag therapy, use of Dimension [place] TBIL is not recommended. Chloride [Moles/Vol] 107 mmol/L 98-107 [facility] Cholesterol [Mass/Vol] 163 mg/dL <200 [facility] Comment on above: <200 mg/dL Desirable 200-240 mg/dL Borderline >240 mg/dL High Risk Glucose [Mass/Vol] 133 mg/dL 74-106 [facility] Comment on above: Fasting Glucose resu lt greater than or equal to 126 mg/dL suggests DIABETES MELLITUS per A.D.A. criteria. Potassium [Moles/Vol] 3.8 mmol/L 3.5-5.1 [facility] Protein [Mass/Vol] 6.9 g/dL 6.4-8.2 [facility] Sodium [Moles/Vol] 138 mmol/L 136-145 [facility] Triglyceride [Mass/Vol] 111 mg/dL <199 [facility] Comment on above: The drugs N-Acetylcy steine and Metamizole may falsely depress this assay.Serum Triglycerides Reference Interval Normal <150 mg/dL Borderline high 150 - 199 mg/dL High 200 - 499 mg/dL Very High > or = 500 mg/dL Direct bilirubinOrdered By: Anmol Ventura on 04-22-2023 Bilirubin.direct [Mass/Vol] 0.12 mg/dL 0.00-0.30 [facility] Laboratory - Chemistry and C hemistry - challengeOrdered By: Anmol Ventura on 04-22-2023 ALP [Catalytic activity/Vol] 57 U/L 45-117 [facility] ALT [Catalytic activity/Vol] 39 U/L 16-61 [facility] CO2 [Moles/Vol] 26.0 mmol/L 21.0-32.0 [facility] Globulin (S) [Mass/Vol] 3.7 g/dL 2.2-4.2 [facility] Urea nitrogen/Creatinine [Mass ratio] 10.1 mg/mg 10-20 [facility] No Panel InformationOrdered By: Anmol Ventura on 04-22-2023 Estimated GFR (MDRD) Amer 70 mL/min >60 [facility] Comment on above: GFR Calc Estimated GFR (MDRD) Non-Af Amer 58 mL/min >60 [facility] Comment on above: Non- GFR Calc Thyroid Stimulating Hormone (TSH) 2.59 uIU/mL 0.358-3.74 [facility] Serum or plasma albumin meño urement (mass/volume)Ordered By: Anmol Ventura on 04-22-2023 Albumin [Mass/Vol] 3.2 g/dL 3.2-5.0 [facility] Serum or plasma albumin/glob ulin mass ratioOrdered By: Anmol Ventura on 04-22-2023 Albumin/Globulin [Mass ratio] 0.9 {ratio} 0.9-2.4 [facility] Serum or plasma calcium meño urement (mass/volume)Ordered By: Anmol Ventura on 04-22-2023 Calcium [Mass/Vol] 8.8 mg/dL 8.5-10.1 [facility] Serum or plasma cholesterol in HDL measurement (mass/volume)Ordered By: Anmol Ventura on 04-22-2023 Cholesterol in HDL [Mass/Vol] 50 mg/dL >40 [facility] Comment on above: The drugs N-Acetylcy steine and Metamizole may falsely depress this assay. Reference Range HDL <40 mg/dL Low HDL Cholesterol HDL >or= 60 mg/dL High HDL Cholesterol Serum or plasma cholesterol in VLDL measurement (mass/volume)Ordered By: Anmol Ventura on 04-22-2023 Cholesterol in VLDL [Mass/Vol] 22 mg/dL 5-40 [facility] Serum or plasma creatinine m easurement (mass/volume)Ordered By: Anmol Ventura on 04-22-2023 Creatinine [Mass/Vol] 1.29 mg/dL 0.70-1.30 [facility] Comment on above: The validity of the calculated GFR & GFRAA in patients over 70 years has not been determined. Clinical correlation is essential. Serum or plasma low density lipoprotein (LDL) cholesterol measurement (mass/volume)Ordered By: Anmol Ventura on 04-22-2023 Cholesterol in LDL [Mass/Vol] 91 mg/dL 0-130 [facility] Serum or plasma urea nitroge n measurement (mass/volume)Ordered By: Anmol Ventura on 04-22-2023 Urea nitrogen [Mass/Vol] 13 mg/dL 7-18 [facility] Thin prep Papanicolaou smear with manual screeningOrdered By: Anmol Ventura on 04-22-2023 Thin prep Papanicolaou smear with manual screening 32 U/L 15-37 [facility] Thin prep Papanicolaou smear with manual screening 5 5-15 [facility] Whole blood hemoglobin A1c/t otal hemoglobin ratio (mass fraction)Ordered By: Anmol Ventura on 04-22-2023 HbA1c (Bld) [Mass fraction] 7.6 % 3.8-5.6 [facility] Comment on above: Normal < 5.7 % Predi abetic 5.7 - 6.4 % Diabetic >or= 6.5 % Please note range changes. Albumin Elph [Mass/Vol]Order ed By: Tino Gamble on 04-01-2023 Albumin [Mass/Vol] 3.3 g/dL 2.9-4.4 [facility] Basophil percentageOrdered B y: Tino Gamble on 04-01-2023 Basophil percentage Comment . [facility] Comment on above: No monoclonality det ected.Performed at: [facility] [id number] [place], [place] [id number] Director: Petr Arzola PhD, Phone: [phone] Interpretation of serum or p lasma protein pattern by immunofixation (narrative resultOrdered By: Tino Gamble on 04-01-2023 Protein Fractions Immunofixation Cain [Interp] See comment [facility] Comment on above: Result: Not Observed No Panel InformationOrdered By: Tino Gamble on 04-01-2023 Addendum Document Comment . [facility] Comment on above: Protein electrophore sis scan will follow via computer,mail, or national sales trainer delivery. Serum [id number] measu rement by electrophoresisOrdered By: Tino Gamble on 04-01-2023 Alpha 1 globulin Elph [Mass/Vol] 0.2 g/dL 0.0-0.4 [facility] Alpha 1 globulin Elph [Mass/Vol] 0.9 g/dL 0.4-1.0 [facility] Serum globulin measurement ( mass/volume)Ordered By: Tino Gamble on 04-01-2023 Globulin (S) [Mass/Vol] 3.5 g/dL 2.2-3.9 [facility] Serum or plasma IgA measurem ent (mass/volume)Ordered By: Tino Gamble on 04-01-2023 IgA [Mass/Vol] 337 mg/dL 61-437 [facility] Serum or plasma IgG measurem ent (mass/volume)Ordered By: Tino Gamble on 04-01-2023 IgG [Mass/Vol] 1120 mg/dL 603-1613 [facility] Serum or plasma IgM measurem ent (mass/volume)Ordered By: Tino Gamble on 04-01-2023 IgM [Mass/Vol] 82 mg/dL 15-143 [facility] Serum or plasma beta globuli n measurement by electrophoresis (mass/volume)Ordered By: Tino Gamble on 04-01-2023 Beta globulin Elph [Mass/Vol] 1.2 g/dL 0.7-1.3 [facility] Serum or plasma gamma globul in measurement by electrophoresis (mass/volume)Ordered By: Tino Gamble on 04-01-2023 Gamma globulin Elph [Mass/Vol] 1.2 g/dL 0.4-1.8 [facility] Serum or plasma immunoelectr ophoresis interpretation (nominal result)Ordered By: Tino Gamble on 04-01-2023 Interpretation IEP [Interp] Comment . [facility] Comment on above: No monoclonality det ected. Thin prep Papanicolaou smear with manual screeningOrdered By: Tino Gamble on 04-01-2023 Thin prep Papanicolaou smear with manual screening 1.0 0.7-1.7 [facility] Total protein bloodOrdered B y: Tino Gamble on 04-01-2023 Protein [Mass/Vol] 6.8 g/dL 6.0-8.5 [facility] Basophil percentageOrdered B y: Griffin Saldivar on 02-08-2023 Bilirubin [Mass/Vol] 0.50 mg/dL 0.20-1.00 [facility] Comment on above: For patients on eltr ombopag therapy, use of Dimension [place] TBIL is not recommended. Chloride [Moles/Vol] 105 mmol/L 98-107 [facility] Cholesterol [Mass/Vol] 172 mg/dL <200 [facility] Comment on above: <200 mg/dL Desirable 200-240 mg/dL Borderline >240 mg/dL High Risk Glucose [Mass/Vol] 177 mg/dL 74-106 [facility] Comment on above: Fasting Glucose resu lt greater than or equal to 126 mg/dL suggests DIABETES MELLITUS per A.D.A. criteria. Potassium [Moles/Vol] 3.9 mmol/L 3.5-5.1 [facility] Protein [Mass/Vol] 6.9 g/dL 6.4-8.2 [facility] Sodium [Moles/Vol] 139 mmol/L 136-145 [facility] Triglyceride [Mass/Vol] 132 mg/dL <199 [facility] Comment on above: The drugs N-Acetylcy steine and Metamizole may falsely depress this assay.Serum Triglycerides Reference Interval Normal <150 mg/dL Borderline high 150 - 199 mg/dL High 200 - 499 mg/dL Very High > or = 500 mg/dL Laboratory - Chemistry and C hemistry - challengeOrdered By: Griffin Saldivar on 02-08-2023 ALP [Catalytic activity/Vol] 66 U/L 45-117 [facility] ALT [Catalytic activity/Vol] 56 U/L 16-61 [facility] CO2 [Moles/Vol] 28.0 mmol/L 21.0-32.0 [facility] Free T4 [Mass/Vol] 1.17 ng/dL 0.76-1.46 [facility] Globulin (S) [Mass/Vol] 3.4 g/dL 2.2-4.2 [facility] Urea nitrogen/Creatinine [Mass ratio] 12.2 mg/mg 10-20 [facility] No Panel InformationOrdered By: Griffin Saldivar on 02-08-2023 Estimated GFR (MDRD) Amer 69 mL/min >60 [facility] Comment on above: GFR Calc Estimated GFR (MDRD) Non-Af Amer 57 mL/min >60 [facility] Comment on above: Non- GFR Calc Thyroid Stimulating Hormone (TSH) 2.30 uIU/mL 0.358-3.74 [facility] Serum or plasma albumin meño urement (mass/volume)Ordered By: Griffin Saldivar on 02-08-2023 Albumin [Mass/Vol] 3.5 g/dL 3.2-5.0 [facility] Serum or plasma albumin/glob ulin mass ratioOrdered By: Griffin Saldivar on 02-08-2023 Albumin/Globulin [Mass ratio] 1.0 {ratio} 0.9-2.4 [facility] Serum or plasma calcium meño urement (mass/volume)Ordered By: Griffin Saldivar on 02-08-2023 Calcium [Mass/Vol] 9.2 mg/dL 8.5-10.1 [facility] Serum or plasma cholesterol in HDL measurement (mass/volume)Ordered By: Griffin Saldivar on 02-08-2023 Cholesterol in HDL [Mass/Vol] 49 mg/dL >40 [facility] Comment on above: The drugs N-Acetylcy steine and Metamizole may falsely depress this assay. Reference Range HDL <40 mg/dL Low HDL Cholesterol HDL >or= 60 mg/dL High HDL Cholesterol Serum or plasma cholesterol in VLDL measurement (mass/volume)Ordered By: Griffin Saldivar on 02-08-2023 Cholesterol in VLDL [Mass/Vol] 26 mg/dL 5-40 [facility] Serum or plasma creatinine m easurement (mass/volume)Ordered By: Griffin Saldivar on 02-08-2023 Creatinine [Mass/Vol] 1.31 mg/dL 0.70-1.30 [facility] Comment on above: The validity of the calculated GFR & GFRAA in patients over 70 years has not been determined. Clinical correlation is essential. Serum or plasma low density lipoprotein (LDL) cholesterol measurement (mass/volume)Ordered By: Griffin Saldivar on 02-08-2023 Cholesterol in LDL [Mass/Vol] 97 mg/dL 0-130 [facility] Serum or plasma urea nitroge n measurement (mass/volume)Ordered By: Griffin Saldivar on 02-08-2023 Urea nitrogen [Mass/Vol] 16 mg/dL 7-18 [facility] Thin prep Papanicolaou smear with manual screeningOrdered By: Griffin Saldivar on 02-08-2023 Thin prep Papanicolaou smear with manual screening 41 U/L 1537 [facility] Thin prep Papanicolaou smear with manual screening 6 5-15 [facility] Whole blood hemoglobin A1c/t otal hemoglobin ratio (mass fraction)Ordered By: Griffin Saldivar on 01-29-2023 HbA1c (Bld) [Mass fraction] 7.7 % 3.8-5.6 [facility] Comment on above: Normal < 5.7 % Predi abetic 5.7 - 6.4 % Diabetic >or= 6.5 % Please note range changes. Basophil percentageOrdered B y: Dr. Gamble on 12-03-2022 Bilirubin [Mass/Vol] 0.40 mg/dL 0.20-1.00 [facility] Comment on above: For patients on eltr ombopag therapy, use of Dimension [place] TBIL is not recommended. Chloride [Moles/Vol] 106 mmol/L 98-107 [facility] Glucose [Mass/Vol] 193 mg/dL 74-106 [facility] Comment on above: Fasting Glucose resu lt greater than or equal to 126 mg/dL suggests DIABETES MELLITUS per A.D.A. criteria. Potassium [Moles/Vol] 4.3 mmol/L 3.5-5.1 [facility] Protein [Mass/Vol] 7.7 g/dL 6.4-8.2 [facility] Sodium [Moles/Vol] 138 mmol/L 136-145 [facility] WBC (Bld) [#/Vol] 8.0 10*3/uL 4.4-11.0 [facility] Blood erythrocytes count (nu mber/volume)Ordered By: Dr. Gamble on 12-03-2022 RBC (Bld) [#/Vol] 5.08 10*6/uL 4.6-6.2 [facility] Blood hemoglobin measurement (mass/volume)Ordered By: Dr. Gamble on 12-03-2022 Hemoglobin (Bld) [Mass/Vol] 16.6 g/dL 13.0-16.5 [facility] Blood platelet mean volumeOr dered By: Dr. Gamble on 12-03-2022 Platelet mean volume (Bld) [Entitic vol] 10.3 fL 6.2-12.0 [facility] Determination of erythrocyte mean corpuscular volume (MCV)Ordered By: Dr. Gamble on 12-03-2022 MCV (RBC) [Entitic vol] 99.2 fL 80-94 [facility] Hematocrit Auto (Bld) [Volum e fraction]Ordered By: Dr. Gamble on 12-03-2022 Hematocrit (Bld) [Volume fraction] 50.4 % 40-54 [facility] Laboratory - Chemistry and C hemistry - challengeOrdered By: Dr. Gamble on 12-03-2022 ALP [Catalytic activity/Vol] 64 U/L 45-117 [facility] ALT [Catalytic activity/Vol] 54 U/L 16-61 [facility] CO2 [Moles/Vol] 24.0 mmol/L 21.0-32.0 [facility] Cobalamin (Vitamin B12) [Mass/Vol] 264 pg/mL 211-911 [facility] Globulin (S) [Mass/Vol] 4.2 g/dL 2.2-4.2 [facility] Urea nitrogen/Creatinine [Mass ratio] 11.8 mg/mg 10-20 [facility] Laboratory - Hematology and Cell countsOrdered By: Dr. Gamble on 12-03-2022 Erythrocyte distribution width (RBC) [Entitic vol] 47.5 fL 35.1-43.9 [facility] Erythrocyte distribution width (RBC) [Ratio] 13.0 % 11.6-14.6 [facility] MCH (RBC) [Entitic mass] 32.7 pg 27.0-32.0 [facility] MCHC Auto (RBC) [Mass/Vol]Or dered By: Dr. Gamble on 12-03-2022 MCHC (RBC) [Mass/Vol] 32.9 g/dL 32-36 [facility] No Panel InformationOrdered By: Dr. Gamble on 12-03-2022 Estimated GFR (MDRD) Amer 62 mL/min >60 [facility] Comment on above: GFR Calc Estimated GFR (MDRD) Non-Af Amer 51 mL/min >60 [facility] Comment on above: Non- GFR Calc Thyroid Stimulating Hormone (TSH) 4.03 uIU/mL 0.358-3.74 [facility] No Panel InformationOrdered By: Tino Gamble on 12-03-2022 Free Lambda Light Chains, Quant 26.1 mg/L 5.7-26.3 [facility] Whole Blood Vitamin B1 Level 133.1 nmol/L 66.5-200.0 [facility] Comment on above: Performed at: - [address] [id number] Director: Petr Arzola PhD, Phone: [phone] at: - [facility] [address] [id number] Director: Cyrus Johnson MD, Phone: [phone] Platelets bldOrdered By: Dr. Gamble on 12-03-2022 Platelets (Bld) [#/Vol] 257 10*3/uL 150-450 [facility] Serum immunoglobulin kappa l ight chains/immunoglobulin lambda light chains mass ratioOrdered By: Tino Gamble on 12-03-2022 Immunoglobulin light chains.kappa/Immunoglobu george light chains.lambda (S) [Mass ratio] 2.06 0.26-1.65 [facility] Serum or plasma albumin meño urement (mass/volume)Ordered By: Dr. Gamble on 12-03-2022 Albumin [Mass/Vol] 3.5 g/dL 3.2-5.0 [facility] Serum or plasma albumin/glob ulin mass ratioOrdered By: Dr. Gamble on 12-03-2022 Albumin/Globulin [Mass ratio] 0.8 {ratio} 0.9-2.4 [facility] Serum or plasma calcium meño urement (mass/volume)Ordered By: Dr. Gamble on 12-03-2022 Calcium [Mass/Vol] 9.1 mg/dL 8.5-10.1 [facility] Serum or plasma creatinine m easurement (mass/volume)Ordered By: Dr. Gamble on 12-03-2022 Creatinine [Mass/Vol] 1.44 mg/dL 0.70-1.30 [facility] Comment on above: The validity of the calculated GFR & GFRAA in patients over 70 years has not been determined. Clinical correlation is essential. Serum or plasma folate measu rement (mass/volume)Ordered By: Dr. Gamble on 12-03-2022 Folate [Mass/Vol] 13.10 ng/mL 3.1-55.4 [facility] Serum or plasma immunoglobul in kappa light chains measurement (mass/volume)Ordered By: Tino Gamble on 12-03-2022 Immunoglobulin light chains.kappa [Mass/Vol] 53.8 mg/L 3.3-19.4 [facility] Serum or plasma urea nitroge n measurement (mass/volume)Ordered By: Dr. Gamble on 12-03-2022 Urea nitrogen [Mass/Vol] 17 mg/dL 7-18 [facility] Thin prep Papanicolaou smear with manual screeningOrdered By: Dr. Gamble on 12-03-2022 Thin prep Papanicolaou smear with manual screening 47 U/L 15-37 [facility] Thin prep Papanicolaou smear with manual screening 8 5-15 [facility] Basophil percentageOrdered B y: Dr. Acevedo on 10-23-2022 Bilirubin [Mass/Vol] 0.40 mg/dL 0.20-1.00 [facility] Comment on above: For patients on eltr ombopag therapy, use of Dimension [place] TBIL is not recommended. Cholesterol [Mass/Vol] 143 mg/dL <200 [facility] Comment on above: <200 mg/dL Desirable 200-240 mg/dL Borderline >240 mg/dL High Risk Protein [Mass/Vol] 6.9 g/dL 6.4-8.2 [facility] Triglyceride [Mass/Vol] 98 mg/dL <199 [facility] Comment on above: The drugs N-Acetylcy steine and Metamizole may falsely depress this assay.Serum Triglycerides Reference Interval Normal <150 mg/dL Borderline high 150 - 199 mg/dL High 200 - 499 mg/dL Very High > or = 500 mg/dL Direct bilirubinOrdered By: Dr. Acevedo on 10-23-2022 Bilirubin.direct [Mass/Vol] 0.10 mg/dL 0.00-0.30 [facility] Laboratory - Chemistry and C hemistry - challengeOrdered By: Dr. Acevedo on 10-23-2022 ALP [Catalytic activity/Vol] 52 U/L 45-117 [facility] ALT [Catalytic activity/Vol] 41 U/L 16-61 [facility] Globulin (S) [Mass/Vol] 3.7 g/dL 2.2-4.2 [facility] No Panel InformationOrdered By: Dr. Acevedo on 10-23-2022 Urine Microalbumin/Creatinine Ratio 7.1 mg/g CRE <30 [facility] Serum or plasma albumin meño urement (mass/volume)Ordered By: Dr. Acevedo on 10-23-2022 Albumin [Mass/Vol] 3.2 g/dL 3.2-5.0 [facility] Serum or plasma cholesterol in HDL measurement (mass/volume)Ordered By: Dr. Acevedo on 10-23-2022 Cholesterol in HDL [Mass/Vol] 49 mg/dL >40 [facility] Comment on above: The drugs N-Acetylcy steine and Metamizole may falsely depress this assay. Reference Range HDL <40 mg/dL Low HDL Cholesterol HDL >or= 60 mg/dL High HDL Cholesterol Serum or plasma cholesterol in VLDL measurement (mass/volume)Ordered By: Dr. Acevedo on 10-23-2022 Cholesterol in VLDL [Mass/Vol] 20 mg/dL 5-40 [facility] Serum or plasma low density lipoprotein (LDL) cholesterol measurement (mass/volume)Ordered By: Dr. Acevedo on 10-23-2022 Cholesterol in LDL [Mass/Vol] 74 mg/dL 0-130 [facility] [facility] Thin prep Papanicolaou smear with manual screeningOrdered By: Dr. Acevedo on 10-23-2022 Thin prep Papanicolaou smear with manual screening 5.6 mg/L NO RANGE EST. [facility] Thin prep Papanicolaou smear with manual screening 37 U/L 15-37 [facility] Urine creatinine measurement (mass/volume)Ordered By: Dr. Acevedo on 10-23-2022 Creatinine (U) [Mass/Vol] 79.90 mg/dL NO RANGE EST. [facility] Whole blood hemoglobin A1c/t otal hemoglobin ratio (mass fraction)Ordered By: Dr. Acevedo on 10-23-2022 HbA1c (Bld) [Mass fraction] 6.8 % 3.8-5.6 [facility] Comment on above: Normal < 5.7 % Predi abetic 5.7 - 6.4 % Diabetic >or= 6.5 % Please note range changes. Basophil percentageOrdered B y: Dr. Saldivar on 10-10-2022 Chloride [Moles/Vol] 107 mmol/L 98-107 [facility] Glucose [Mass/Vol] 191 mg/dL 74-106 [facility] Comment on above: Fasting Glucose resu lt greater than or equal to 126 mg/dL suggests DIABETES MELLITUS per A.D.A. criteria. Potassium [Moles/Vol] 4.0 mmol/L 3.5-5.1 [facility] Sodium [Moles/Vol] 136 mmol/L 136-145 [facility] Laboratory - Chemistry and C hemistry - challengeOrdered By: Dr. Saldivar on 10-10-2022 CO2 [Moles/Vol] 22.0 mmol/L 21.0-32.0 [facility] Magnesium [Mass/Vol] 1.9 mg/dL 1.6-2.6 [facility] Urea nitrogen/Creatinine [Mass ratio] 11.6 mg/mg 10-20 [facility] No Panel InformationOrdered By: Dr. Saldivar on 10-10-2022 Estimated GFR (MDRD) Amer 65 mL/min >60 [facility] Comment on above: GFR Calc Estimated GFR (MDRD) Non-Af Amer 54 mL/min >60 [facility] Comment on above: Non- GFR Calc Serum or plasma calcium meño urement (mass/volume)Ordered By: Dr. Saldivar on 10-10-2022 Calcium [Mass/Vol] 8.8 mg/dL 8.5-10.1 [facility] Serum or plasma creatinine m easurement (mass/volume)Ordered By: Dr. Saldivar on 10-10-2022 Creatinine [Mass/Vol] 1.38 mg/dL 0.70-1.30 [facility] Comment on above: The validity of the calculated GFR & GFRAA in patients over 70 years has not been determined. Clinical correlation is essential. Serum or plasma urea nitroge n measurement (mass/volume)Ordered By: Dr. Saldivar on 10-10-2022 Urea nitrogen [Mass/Vol] 16 mg/dL 7-18 [facility] Thin prep Papanicolaou smear with manual screeningOrdered By: Dr. Saldivar on 10-10-2022 Thin prep Papanicolaou smear with manual screening 7 5-15 [facility] Basophil percentageOrdered B y: Dr. Saldivar on 09-28-2022 Bilirubin [Mass/Vol] 0.30 mg/dL 0.20-1.00 [facility] Comment on above: For patients on eltr ombopag therapy, use of [employer]ension [place] TBIL is not recommended. Chloride [Moles/Vol] 103 mmol/L 98-107 [facility] Glucose [Mass/Vol] 153 mg/dL 74-106 [facility] Comment on above: Fasting Glucose resu lt greater than or equal to 126 mg/dL suggests DIABETES MELLITUS per A.D.A. criteria. Potassium [Moles/Vol] 3.4 mmol/L 3.5-5.1 [facility] Protein [Mass/Vol] 7.0 g/dL 6.4-8.2 [facility] Sodium [Moles/Vol] 135 mmol/L 136-145 [facility] Laboratory - Chemistry and C hemistry - challengeOrdered By: Dr. Saldivar on 09-28-2022 ALP [Catalytic activity/Vol] 58 U/L 45-117 [facility] ALT [Catalytic activity/Vol] 39 U/L 16-61 [facility] CO2 [Moles/Vol] 26.0 mmol/L 21.0-32.0 [facility] Globulin (S) [Mass/Vol] 3.6 g/dL 2.2-4.2 [facility] Urea nitrogen/Creatinine [Mass ratio] 10.8 mg/mg 10-20 [facility] No Panel InformationOrdered By: Dr. Saldivar on 09-28-2022 Dehydroepiandrosterone Sulfate 47.0 ug/dL 30.9-295.6 [facility] Comment on above: Performed at: [address] Director: Petr Arzola PhD, Phone: [phone] Estimated GFR (MDRD) Amer 76 mL/min >60 [facility] Comment on above: GFR Calc Estimated GFR (MDRD) Non-Af Amer 63 mL/min >60 [facility] Comment on above: Non- GFR Calc Thyroid Stimulating Hormone (TSH) 5.32 uIU/mL 0.358-3.74 [facility] Vitamin D 25-Hydroxy 62.0 ng/mL [facility] Comment on above: Vitamin D 25(OH) Sta tus Range Deficiency <20 ng/mL (50nmol/L) Insufficiency 20 - 30 ng/mL (50 - 75 nmol/L) Sufficiency 30 - 100 ng/mL (75 - 250 nmol/L) Toxicity >100 ng/mL (>250 nmol/L) Serum or plasma albumin meño urement (mass/volume)Ordered By: Dr. Saldivar on 09-28-2022 Albumin [Mass/Vol] 3.4 g/dL 3.2-5.0 [facility] Serum or plasma albumin/glob ulin mass ratioOrdered By: Dr. Saldivar on 09-28-2022 Albumin/Globulin [Mass ratio] 0.9 {ratio} 0.9-2.4 [facility] Serum or plasma calcium meño urement (mass/volume)Ordered By: Dr. Saldivar on 09-28-2022 Calcium [Mass/Vol] 8.8 mg/dL 8.5-10.1 [facility] Serum or plasma creatinine m easurement (mass/volume)Ordered By: Dr. Saldivar on 09-28-2022 Creatinine [Mass/Vol] 1.20 mg/dL 0.70-1.30 [facility] Comment on above: The validity of the calculated GFR & GFRAA in patients over 70 years has not been determined. Clinical correlation is essential. Serum or plasma urea nitroge n measurement (mass/volume)Ordered By: Dr. Saldivar on 09-28-2022 Urea nitrogen [Mass/Vol] 13 mg/dL 7-18 [facility] Thin prep Papanicolaou smear with manual screeningOrdered By: Dr. Saldivar on 09-28-2022 Thin prep Papanicolaou smear with manual screening 40 U/L 15-37 [facility] Thin prep Papanicolaou smear with manual screening 6 5-15 [facility] Absolute lymphocyte countOrd ered By: Dr. Valle on 08-09-2022 Lymphocytes Auto (Unsp spec) [#/Vol] 2.69 10*3/uL 0.83-4.51 [facility] Basophil percentageOrdered B y: Dr. Valle on 08-09-2022 Basophils/100 WBC (Bld) 0.6 % 0-1 [facility] Bilirubin [Mass/Vol] 0.40 mg/dL 0.20-1.00 [facility] Comment on above: For patients on eltr ombopag therapy, use of [employer] [place] TBIL is not recommended. Eosinophils/100 WBC (Bld) 4.9 % 0-5 [facility] Neutrophils (Bld) [#/Vol] 5.4 10*3/uL 2.0-7.7 [facility] Neutrophils/100 WBC (Bld) 55.7 % 47-70 [facility] Protein [Mass/Vol] 7.4 g/dL 6.4-8.2 [facility] WBC (Bld) [#/Vol] 9.6 10*3/uL 4.4-11.0 [facility] Blood erythrocytes count (nu mber/volume)Ordered By: Dr. Valle on 08-09-2022 RBC (Bld) [#/Vol] 4.97 10*6/uL 4.6-6.2 [facility] Blood hemoglobin measurement (mass/volume)Ordered By: Dr. Valle on 08-09-2022 Hemoglobin (Bld) [Mass/Vol] 15.8 g/dL 13.0-16.5 [facility] Blood lymphocytes/100 leukoc ytesOrdered By: Dr. Valle on 08-09-2022 Lymphocytes/100 WBC (Bld) 28.0 % 19-41 [facility] Blood monocytes/100 leukocyt esOrdered By: Dr. Valle on 08-09-2022 Monocytes/100 WBC (Bld) 10.6 % 0-10 [facility] Blood platelet mean volumeOr dered By: Dr. Valle on 08-09-2022 Platelet mean volume (Bld) [Entitic vol] 10.1 fL 6.2-12.0 [facility] Determination of erythrocyte mean corpuscular volume (MCV)Ordered By: Dr. Valle on 08-09-2022 MCV (RBC) [Entitic vol] 96.4 fL 80-94 [facility] Direct bilirubinOrdered By: Dr. Valle on 08-09-2022 Bilirubin.direct [Mass/Vol] 0.15 mg/dL 0.00-0.30 [facility] Hematocrit Auto (Bld) [Volum e fraction]Ordered By: Dr. Valle on 08-09-2022 Hematocrit (Bld) [Volume fraction] 47.9 % 40-54 [facility] Laboratory - Chemistry and C hemistry - challengeOrdered By: Dr. Valle on 08-09-2022 ALP [Catalytic activity/Vol] 62 U/L 45-117 [facility] ALT [Catalytic activity/Vol] 38 U/L 16-61 [facility] Globulin (S) [Mass/Vol] 3.9 g/dL 2.2-4.2 [facility] Laboratory - Hematology and Cell countsOrdered By: Dr. Valle on 08-09-2022 Erythrocyte distribution width (RBC) [Entitic vol] 47.4 fL 35.1-43.9 [facility] Erythrocyte distribution width (RBC) [Ratio] 13.3 % 11.6-14.6 [facility] Immature granulocytes/100 WBC (Bld) 0.200 % 0.0-0.9 [facility] Comment on above: IG% - Immature Granu locytes (promyelocytes, myelocytes and metamyelocytes) > 1% indicates that a LEFT SHIFT is Present. MCH (RBC) [Entitic mass] 31.8 pg 27.0-32.0 [facility] Nucleated RBC/100 WBC (Bld) [Ratio] 0 % 0-5 [facility] MCHC Auto (RBC) [Mass/Vol]Or dered By: Dr. Valle on 08-09-2022 MCHC (RBC) [Mass/Vol] 33.0 g/dL 32-36 [facility] Platelets bldOrdered By: Dr. Valle on 08-09-2022 Platelets (Bld) [#/Vol] 213 10*3/uL 150-450 [facility] Qualitative QuantiFERON-TB g old in tube testOrdered By: Dr. Valle on 08-09-2022 M. tuberculosis tuberculin stim IFN-g Ql (Bld) 0.10 IU/mL . [facility] Serum or plasma albumin meño urement (mass/volume)Ordered By: Dr. Valle on 08-09-2022 Albumin [Mass/Vol] 3.5 g/dL 3.2-5.0 [facility] Thin prep Papanicolaou smear with manual screeningOrdered By: Dr. Valle on 08-09-2022 Thin prep Papanicolaou smear with manual screening 38 U/L 15-37 [facility] Thin prep Papanicolaou smear with manual screening Comment . [facility] Comment on above: QuantiFERON-TB Gold Plus is a qualitative indirect test forM tuberculosis infection (including disease) and isintended for use in conjunction with risk assessment,radiography, and other medical and diagnostic evaluations.The QuantiFERON-TB Gold Plus result is determined bysubtracting the Nil value from either TB antigen (Ag)value. The Mitogen tube serves as a control for the test. Thin prep Papanicolaou smear with manual screening 0.10 IU/mL . [facility] Thin prep Papanicolaou smear with manual screening 0.29 IU/mL . [facility] Thin prep Papanicolaou smear with manual screening > 10.00 IU/mL . [facility] Thin prep Papanicolaou smear with manual screening Negative Negative [facility] Comment on above: No response to M tub erculosis antigens detected.Infection with M tuberculosis is unlikely, but high riskindividuals should be considered for additional testing(ATS/IDSA/CDC Clinical Practice Guidelines, 2017). Thereference range is an Antigen minus Nil result of <0.35IU/mL.The specimen received for QuantiFERON testing was incubatedby the ordering institution. Specific procedures outlinedin our Directory of Services and in the package insert forthe QuantiFERON Gold (In Tube) test must be followed toenable for proper stimulation of cells for the productionof interferon gamma. Chemiluminescence immunoassaymethodologyPerformed at: [employer] [address] [id number] Director: Petr Arzola PhD, Phone: [phone] Erythrocyte sedimentation ra teOrdered By: Dr. Kohli on 05-16-2022 ESR (Bld) [Velocity] 12 mm/h 0-20 [facility] Serum or plasma C reactive p rotein measurement (mass/volume)Ordered By: Dr. Kohli on 05-16-2022 CRP [Mass/Vol] 4.83 mg/L 0.0-3.0 [facility] Comment on above: C-Reactive Protein ( CRP) provides useful information for thediagnosis, therapy and monitoring of inflammatory processesand associated diseases. For the evaluation of Relative Riskfor Cardiovascular Disease, a High Sensitivity CRP (HSCRP)should be ordered. Basophil percentageOrdered B y: Dr. Kohli on 04-18-2022 Chloride [Moles/Vol] 104 mmol/L 98-107 [facility] Cholesterol [Mass/Vol] 149 mg/dL <200 [facility] Comment on above: <200 mg/dL Desirable 200-240 mg/dL Borderline >240 mg/dL High Risk Glucose [Mass/Vol] 144 mg/dL 74-106 [facility] Comment on above: Fasting Glucose resu lt greater than or equal to 126 mg/dL suggests DIABETES MELLITUS per A.D.A. criteria. Potassium [Moles/Vol] 4.0 mmol/L 3.5-5.1 [facility] Sodium [Moles/Vol] 135 mmol/L 136-145 [facility] Triglyceride [Mass/Vol] 129 mg/dL <199 [facility] Comment on above: The drugs N-Acetylcy steine and Metamizole may falsely depress this assay.Serum Triglycerides Reference Interval Normal <150 mg/dL Borderline high 150 - 199 mg/dL High 200 - 499 mg/dL Very High > or = 500 mg/dL Laboratory - Chemistry and C hemistry - challengeOrdered By: Dr. Kohli on 04-18-2022 CO2 [Moles/Vol] 23.0 mmol/L 21.0-32.0 [facility] Urea nitrogen/Creatinine [Mass ratio] 12.9 mg/mg 10-20 [facility] No Panel InformationOrdered By: Dr. Kohli on 04-18-2022 Estimated GFR (MDRD) Amer 69 mL/min >60 [facility] Comment on above: GFR Calc Estimated GFR (MDRD) Non-Af Amer 57 mL/min >60 [facility] Comment on above: Non- GFR Calc Urine Microalbumin/Creatinine Ratio 6.9 mg/g CRE <30 [facility] Serum or plasma calcium meño urement (mass/volume)Ordered By: Dr. Kohli on 04-18-2022 Calcium [Mass/Vol] 9.1 mg/dL 8.5-10.1 [facility] Serum or plasma cholesterol in HDL measurement (mass/volume)Ordered By: Dr. Kohli on 04-18-2022 Cholesterol in HDL [Mass/Vol] 48 mg/dL >40 [facility] Comment on above: The drugs N-Acetylcy steine and Metamizole may falsely depress this assay. Reference Range HDL <40 mg/dL Low HDL Cholesterol HDL >or= 60 mg/dL High HDL Cholesterol Serum or plasma cholesterol in VLDL measurement (mass/volume)Ordered By: Dr. Kohli on 04-18-2022 Cholesterol in VLDL [Mass/Vol] 26 mg/dL 5-40 [facility] Serum or plasma creatinine m easurement (mass/volume)Ordered By: Dr. Kohli on 04-18-2022 Creatinine [Mass/Vol] 1.32 mg/dL 0.70-1.30 [facility] Comment on above: The validity of the calculated GFR & GFRAA in patients over 70 years has not been determined. Clinical correlation is essential. Serum or plasma low density lipoprotein (LDL) cholesterol measurement (mass/volume)Ordered By: Dr. Kohli on 04-18-2022 Cholesterol in LDL [Mass/Vol] 75 mg/dL 0-130 [facility] Serum or plasma urea nitroge n measurement (mass/volume)Ordered By: Dr. Kohli on 04-18-2022 Urea nitrogen [Mass/Vol] 17 mg/dL 7-18 [facility] Thin prep Papanicolaou smear with manual screeningOrdered By: Dr. Kohli on 04-18-2022 Thin prep Papanicolaou smear with manual screening 8 5-15 [facility] Thin prep Papanicolaou smear with manual screening 5.9 mg/L NO RANGE EST. [facility] Urine creatinine measurement (mass/volume)Ordered By: Dr. Kohli on 04-18-2022 Creatinine (U) [Mass/Vol] 85.20 mg/dL NO RANGE EST. [facility] Absolute lymphocyte counton 01-29-2022 Lymphocytes Auto (Unsp spec) [#/Vol] 2.32 10*3/uL 0.83-4.51 [facility] Work Phone: Basophil percentageon 2021 Basophils/100 WBC (Bld) 0.6 % 0-1 [facility] Work Phone: [phone] Chloride [Moles/Vol] 105 mmol/L 98-107 [facility] Work Phone: Eosinophils/100 WBC (Bld) 3.2 % 0-5 [facility] Work Phone: Glucose [Mass/Vol] 334 mg/dL 74-106 [facility] Work Phone: Comment on above: Glucose result great er than or equal to 200 mg/dLsuggests DIABETES MELLITUS per A.D.A. criteria. Neutrophils (Bld) [#/Vol] 4.5 10*3/uL 2.0-7.7 [facility] Work Phone: Neutrophils/100 WBC (Bld) 56.5 % 47-70 [facility] Work Phone: Potassium [Moles/Vol] 4.2 mmol/L 3.5-5.1 [facility] Work Phone: Sodium [Moles/Vol] 138 mmol/L 136-145 [facility] Work Phone: WBC (Bld) [#/Vol] 8.0 10*3/uL 4.4-11.0 [facility] Work Phone: Blood erythrocytes count (nu mber/volume)on 01-29-2022 RBC (Bld) [#/Vol] 4.99 10*6/uL 4.6-6.[address] [facility] Work Phone: Blood hemoglobin measurement (mass/volume)on 01-29-2022 Hemoglobin (Bld) [Mass/Vol] 15.9 g/dL 13.0-16.5 [facility] Work Phone: Blood lymphocytes/100 leukoc yteson 01-29-2022 Lymphocytes/100 WBC (Bld) 28.9 % 19-41 [facility] Work Phone: Blood monocytes/100 leukocyt eson 01-29-2022 Monocytes/100 WBC (Bld) 10.6 % 0-10 [facility] Work Phone: Blood platelet mean volumeon 01-29-2022 Platelet mean volume (Bld) [Entitic vol] 10.3 fL 6.2-12.0 [facility] Work Phone: Determination of erythrocyte mean corpuscular volume (MCV)on 01-29-2022 MCV (RBC) [Entitic vol] 96.8 fL 80-94 [facility] Work Phone: Hematocrit Auto (Bld) [Volum e fraction]on 01-29-2022 Hematocrit (Bld) [Volume fraction] 48.3 % 40-54 [facility] Work Phone: Laboratory - Chemistry and C hemistry - challengeon 01-29-2022 CO2 [Moles/Vol] 28.0 mmol/L 21.0-32.0 [facility] Work Phone: Natriuretic peptide B (Bld) [Mass/Vol] 9.6 pg/mL 0-100 [facility] Work Phone: Urea nitrogen/Creatinine [Mass ratio] 11.0 mg/mg 10-20 [facility] Work Phone: Laboratory - Hematology and Cell countson 01-29-2022 Erythrocyte distribution width (RBC) [Entitic vol] 46.3 fL 35.1-43.9 [facility] Work Phone: Erythrocyte distribution width (RBC) [Ratio] 12.9 % 11.6-14.6 [facility] Work Phone: Immature granulocytes/100 WBC (Bld) 0.200 % 0.0-0.9 [facility] Work Phone: Comment on above: IG% - Immature Granu locytes (promyelocytes, myelocytes and metamyelocytes) > 1% indicates that a LEFT SHIFT is Present. MCH (RBC) [Entitic mass] 31.9 pg 27.0-32.0 [facility] Work Phone: Nucleated RBC/100 WBC (Bld) [Ratio] 0 % 0-5 [facility] Work Phone: MCHC Auto (RBC) [Mass/Vol]on 01-29-2022 MCHC (RBC) [Mass/Vol] 32.9 g/dL 32-36 [facility] Work Phone: No Panel Informationon 01-29 Estimated GFR (MDRD) Amer 57 mL/min >60 [facility] Work Phone: Comment on above: GFR Calc Estimated GFR (MDRD) Non-Af Amer 47 mL/min >60 [facility] Work Phone: Comment on above: Non- GFR Calc Platelets bldon 01-29-2022 Platelets (Bld) [#/Vol] 198 10*3/uL 150-450 [facility] Work Phone: Serum or plasma calcium meño urement (mass/volume)on 01-29-2022 Calcium [Mass/Vol] 8.9 mg/dL 8.5-10.1 [facility] Work Phone: Serum or plasma creatinine m easurement (mass/volume)on 01-29-2022 Creatinine [Mass/Vol] 1.55 mg/dL 0.70-1.30 [facility] Work Phone: Comment on above: The validity of the calculated GFR & GFRAA in patients over 70 years has not been determined. Clinical correlation is essential. Serum or plasma urea nitroge n measurement (mass/volume)on 01-29-2022 Urea nitrogen [Mass/Vol] 17 mg/dL 7-18 [facility] Work Phone: Thin prep Papanicolaou smear with manual screeningon 01-29-2022 Thin prep Papanicolaou smear with manual screening 5 5-15 [facility] Work Phone: Absolute lymphocyte counton 01-01-2022 Lymphocytes Auto (Unsp spec) [#/Vol] 2.75 10*3/uL 0.83-4.51 [facility] Work Phone: Atypical perinuclear antineu trophil cytoplasmic antibodies measurementon 01-01-2022 Neutrophil cytoplasmic Ab.perinuclear.atypical IF (S) [Titer] <1:20 titer Neg:<1:20 [facility] Work Phone: Comment on above: The atypical pANCA p attern has been observed in asignificant percentage of patients with ulcerative colitis,primary sclerosing cholangitis and autoimmune hepatitis. Basophil percentageon 2021 Basophil percentage < 0.2 AI 0.0-0.9 [facility] Work Phone: Basophils/100 WBC (Bld) 0.5 % 0-1 [facility] Work Phone: Bilirubin [Mass/Vol] 0.50 mg/dL 0.20-[facility].00 [facility]: Comment on above: For patients on eltr ombopag therapy, use of Dimension [place] TBIL is not recommended. Eosinophils/100 WBC (Bld) 3.9 % 0-5 [facility] Work Phone: Neutrophils (Bld) [#/Vol] 3.4 10*3/uL 2.0-7.7 [facility] Work Phone: Neutrophils/100 WBC (Bld) 45.3 % 47-70 [facility] Work Phone: [phone] Protein [Mass/Vol] 7.4 g/dL 6.4-8.2 [facility] Work Phone: WBC (Bld) [#/Vol] 7.5 10*3/uL 4.4-11.0 [facility] Work Phone: Blood erythrocytes count (nu mber/volume)on 01-01-2022 RBC (Bld) [#/Vol] 4.84 10*6/uL 4.6-6.2 [facility] Work Phone: Blood hemoglobin measurement (mass/volume)on 01-01-2022 Hemoglobin (Bld) [Mass/Vol] 15.5 g/dL 13.0-16.5 [facility] Work Phone: Blood lymphocytes/100 leukoc yteson 01-01-2022 Lymphocytes/100 WBC (Bld) 36.9 % 19-41 [facility] Work Phone: Blood monocytes/100 leukocyt eson 01-01-2022 Monocytes/100 WBC (Bld) 13.3 % 0-10 [facility] Work Phone: [phone] Blood platelet mean volumeon 01-01-2022 Platelet mean volume (Bld) [Entitic vol] 10.1 fL 6.2-12.0 [facility] Work Phone: Determination of erythrocyte mean corpuscular volume (MCV)on 01-01-2022 MCV (RBC) [Entitic vol] 92.6 fL 80-94 [facility] Work Phone: Direct bilirubinon 2 Bilirubin.direct [Mass/Vol] 0.10 mg/dL 0.00-0.30 [facility] Work Phone: Erythrocyte sedimentation ra danny 01-01-2022 ESR (Bld) [Velocity] 27 mm/h 0-20 [facility] Work Phone: Hematocrit Auto (Bld) [Volum e fraction]on 01-01-2022 Hematocrit (Bld) [Volume fraction] 44.8 % 40-54 [facility] Work Phone: Laboratory - Chemistry and C hemistry - challengeon 01-01-2022 ALP [Catalytic activity/Vol] 79 U/L 45-117 [facility] Work Phone: [phone] ALT [Catalytic activity/Vol] 38 U/L 16-61 [facility] Work Phone: Globulin (S) [Mass/Vol] 4.0 g/dL 2.2-4.2 [facility] Work Phone: Laboratory - Hematology and Cell countson 01-01-2022 Erythrocyte distribution width (RBC) [Entitic vol] 42.3 fL 35.1-43.9 [facility] Work Phone: Erythrocyte distribution width (RBC) [Ratio] 12.4 % 11.6-14.6 [facility] Work Phone: Immature granulocytes/100 WBC (Bld) 0.100 % 0.0-0.9 [facility] Work Phone: Comment on above: IG% - Immature Granu locytes (promyelocytes, myelocytes and metamyelocytes) > 1% indicates that a LEFT SHIFT is Present. MCH (RBC) [Entitic mass] 32.0 pg 27.0-32.0 [facility] Work Phone: Nucleated RBC/100 WBC (Bld) [Ratio] 0 % 0-5 [facility] Work Phone: MCHC Auto (RBC) [Mass/Vol]on 01-01-2022 MCHC (RBC) [Mass/Vol] 34.6 g/dL 32-36 [facility] Work Phone: No Panel Informationon 01-01 Anti-Nuclear Antibody Screen Negative Negative [facility] Work Phone: Comment on above: Performed at: [address] [id number] Director: Petr Arzola PhD, Phone: [phone] Miscellaneous Test See comment [facility] Work [facility]: Comment on above: TEST RESULT LIMITSAn ti-Synthetase Profile (RDL) Anti-Susannah-1 Ab (RDL) <20 Units <20 Anti-PL-7 Ab (RDL), Negativ Negative Anti-PL-12 Ab (RDL), Negative Negative Anti-EJ Ab (RDL), Negative Negative Anti-OJ Ab (RDL), Negative Negative Interpretation for Anti-Susannah-1: Negative: <20 Weak Positive: 20 - 39 Moderate Positive: 40 - 80 Strong Positive: >80 Given overlapping phenotypes, autoantibody positivity should be interpreted in the context of clinical and other laboratory findings. TEST[facility]FOR[facility] AT [facility] ORIGINAL REPORT ON FILE IN LAB CONTAINS ADDITIONAL TEST SITE INFORMATION. Platelets bldon 01-01-2022 Platelets (Bld) [#/Vol] 216 10*3/uL 150-450 [facility] Work Phone: Serum DNA double strand anti body assay (units/volume)on 01-01-2022 DNA double strand Ab Qn (S) 1 [IU]/mL 0-9 [facility] Work Phone: Comment on above: Negative <5 Equivoca l 5 - 9 Positive >9 Serum Scl-70 extractable nuc lear antibody assay (units/volume)on 01-01-2022 SCL-70 extractable nuclear Ab Qn (S) <0.2 AI 0.0-0.9 [facility] Work Phone: Serum classic neutrophil cyt oplasmic antibody assay (units/volume)on 01-01-2022 Neutrophil cytoplasmic Ab.classic Qn (S) <1:20 titer Neg:<1:20 [facility] Work Phone: Serum cyclic citrullinated p eptide IgG antibody assay (units/volume)on 01-01-2022 Cyclic citrullinated peptide IgG Qn 19 units 0-19 [facility] Work Phone: Comment on above: Negative <20 Weak po sitive 20 - 39 Moderate positive 40 - 59 Strong positive >59Performed at: [facility] [address] [id number] Director: Petr Arzola PhD, Phone: [phone] at: [facility] [address] [id number] Director: Cyrus Johnson MD, Phone: [phone] Serum or plasma C reactive p rotein measurement (mass/volume)on 01-01-2022 CRP [Mass/Vol] 5.20 mg/L 0.0-3.0 [facility] Work Phone: Comment on above: C-Reactive Protein ( CRP) provides useful information for thediagnosis, therapy and monitoring of inflammatory processesand associated diseases. For the evaluation of Relative Riskfor Cardiovascular Disease, a High Sensitivity CRP (HSCRP)should be ordered. Serum or plasma actin IgG an tibody assay (units/volume)on 01-01-2022 Actin IgG Qn 7 Units 0-19 [facility] Work Phone: Comment on above: Negative 0 - 19 Weak positive 20 - 30 Moderate to strong positive >30 Actin Antibodies are found in 52-85% of patients with autoimmune hepatitis or chronic active hepatitis and in 22% of patients with primary biliary cirrhosis. Serum or plasma albumin meño urement (mass/volume)on 01-01-2022 Albumin [Mass/Vol] 3.4 g/dL 3.2-5.0 [facility] Work Phone: Serum or plasma angiotensin converting enzyme measurement (enzymatic activity/volume)on 01-01-2022 Angiotensin converting enzyme [Catalytic activity/Vol] 63 U/L 14-82 [facility] Work Phone: Serum perinuclear neutrophil cytoplasmic antibody titer by immunofluorescenceon 01-01-2022 Neutrophil cytoplasmic Ab.perinuclear IF (S) [Titer] <1:20 titer Neg:<1:20 [facility] Work Phone: Comment on above: The presence of posi tive fluorescence exhibiting P-ANCA orC-ANCA patterns alone is not specific for the diagnosis ofWegener's Granulomatosis (WG) or microscopic polyangiitis.Decisions about treatment should not be based solely onANCA IFA results. The [employer] Consensusrecommends follow up testing of positive sera with both KY-3 and MPO-ANCA enzyme immunoassays. As many as 5% serumsamples are positive only by EIA. Ref. AM J Clin Glkspz5970;111:507-513. Serum rheumatoid factor dete ctionon 01-01-2022 Rheumatoid factor Ql (S) < 10.0 IU/mL <15 [facility] Work Phone: Thin prep Papanicolaou smear with manual screeningon 01-01-2022 Thin prep Papanicolaou smear with manual screening 31 U/L 15-37 [facility] Work Phone: Basophil percentageon 2021 Chloride [Moles/Vol] 103 mmol/L 98-107 [facility] Work Phone: Glucose [Mass/Vol] 255 mg/dL 74-106 [facility] Work Phone: Comment on above: Glucose result great er than or equal to 200 mg/dLsuggests DIABETES MELLITUS per A.D.A. criteria. Potassium [Moles/Vol] 3.9 mmol/L 3.5-5.1 [facility] Work Phone: Sodium [Moles/Vol] 135 mmol/L 136-145 [facility] Work Phone: Laboratory - Chemistry and C hemistry - challengeon 11-23-2021 CO2 [Moles/Vol] 29.0 mmol/L 21.0-32.0 [facility] Work Phone: Urea nitrogen/Creatinine [Mass ratio] 9.8 mg/mg 10-20 [facility] Work Phone: No Panel Informationon 11-23 Estimated GFR (MDRD) Amer 69 mL/min >60 [facility] Work Phone: Comment on above: GFR Calc Estimated GFR (MDRD) Non-Af Amer 57 mL/min >60 [facility] Work Phone: Comment on above: Non- GFR Calc Thyroglobulin Antibody < 1.0 IU/mL 0.0-0.9 [facility] Work Phone: Comment on above: Thyroglobulin Antibo dy measured by Jennifer CoulterMethodology Thyroglobulin Level 8.5 ng/mL 1.4-29.2 [facility] Work Phone: Comment on above: According to the [facility] [employer],the reference interval for Thyroglobulin (TG) should berelated to euthyroid patients and not for patients whounderwent thyroidectomy. TG reference intervals for thesepatients depend on the residual mass of the thyroid tissueleft after surgery. Establishing a post-operative baselineis recommended. The assay limit of quantitation is 0.1ng/mLThyroglobulin measured by Jennifer [facility] [place] [employer] Thyroid Stimulating Hormone (TSH) 2.83 uIU/mL 0.358-3.74 [facility] Work Phone: Serum or plasma calcium meño urement (mass/volume)on 11-23-2021 Calcium [Mass/Vol] 9.1 mg/dL 8.5-10.1 [facility] Work Phone: Serum or plasma creatinine m easurement (mass/volume)on 11-23-2021 Creatinine [Mass/Vol] 1.32 mg/dL 0.70-1.30 [facility] Work Phone: Comment on above: The validity of the calculated GFR & GFRAA in patients over 70 years has not been determined. Clinical correlation is essential. Serum or plasma thyroperoxid ase antibody assay (units/volume)on 11-23-2021 TPO Ab Qn [IU]/mL 0-34 [facility] Work Phone: Comment on above: Performed at: [address] [id number] Director: Petr Arzola PhD, Phone: [phone] Serum or plasma urea nitroge n measurement (mass/volume)on 11-23-2021 Urea nitrogen [Mass/Vol] 13 mg/dL 7-18 [facility] Work Phone: Thin prep Papanicolaou smear with manual screeningon 11-23-2021 Thin prep Papanicolaou smear with manual screening 3 5-15 [facility] Work Phone: Basophil percentageon 2021 Chloride [Moles/Vol] 103 mmol/L 98-107 [facility] Work Phone: Glucose [Mass/Vol] 225 mg/dL 74-106 [facility] Work Phone: Comment on above: Glucose result great er than or equal to 200 mg/dLsuggests DIABETES MELLITUS per A.D.A. criteria. Potassium [Moles/Vol] 3.9 mmol/L 3.5-5.1 [facility] Work Phone: Sodium [Moles/Vol] 135 mmol/L 136-145 [facility] Work Phone: Laboratory - Chemistry and C hemistry - challengeon 10-31-2021 CO2 [Moles/Vol] 26.0 mmol/L 21.0-32.0 [facility] Work Phone: Urea nitrogen/Creatinine [Mass ratio] 9.4 mg/mg 10-20 [facility] Work Phone: No Panel Informationon 10-31 Estimated GFR (MDRD) Amer 72 mL/min >60 [facility] Work Phone: Comment on above: GFR Calc Estimated GFR (MDRD) Non-Af Amer 59 mL/min >60 [facility] Work Phone: Comment on above: Non- GFR Calc Serum or plasma calcium meño urement (mass/volume)on 10-31-2021 Calcium [Mass/Vol] 8.9 mg/dL 8.5-10.1 [facility] Work Phone: Serum or plasma creatinine m easurement (mass/volume)on 10-31-2021 Creatinine [Mass/Vol] 1.27 mg/dL 0.70-1.30 [facility] Work Phone: Comment on above: The validity of the calculated GFR & GFRAA in patients over 70 years has not been determined. Clinical correlation is essential. Serum or plasma urea nitroge n measurement (mass/volume)on 10-31-2021 Urea nitrogen [Mass/Vol] 12 mg/dL 7-18 [facility] Work Phone: Thin prep Papanicolaou smear with manual screeningon 10-31-2021 Thin prep Papanicolaou smear with manual screening 6 5-15 [facility] Work Phone: Basophil percentageon 2021 Bilirubin [Mass/Vol] 0.50 mg/dL 0.20-1.00 [facility] Work Phone: Comment on above: For patients on eltr ombopag therapy, use of [employer] [place] TBIL is not recommended. Chloride [Moles/Vol] 99 mmol/L 98-107 [facility] Work Phone: Glucose [Mass/Vol] 335 mg/dL 74-106 [facility] Work Phone: Comment on above: Glucose result great er than or equal to 200 mg/dLsuggests DIABETES MELLITUS per A.D.A. criteria. Potassium [Moles/Vol] 3.9 mmol/L 3.5-5.1 [facility] Work Phone: Protein [Mass/Vol] 7.2 g/dL 6.4-8.2 [facility] Work Phone: Sodium [Moles/Vol] 133 mmol/L 136-145 [facility] Work Phone: [phone] Laboratory - Chemistry and C hemistry - challengeon 10-11-2021 ALP [Catalytic activity/Vol] 88 U/L 45-117 [facility] Work Phone: ALT [Catalytic activity/Vol] 38 U/L 16-61 [facility] Work Phone: CO2 [Moles/Vol] 30.0 mmol/L 21.0-32.0 [facility] Work Phone: Globulin (S) [Mass/Vol] 4.0 g/dL 2.2-4.2 [facility] Work Phone: Urea nitrogen/Creatinine [Mass ratio] 9.0 mg/mg 10-20 [facility] Work Phone: No Panel Informationon 10-11 Dehydroepiandrosterone Sulfate 53.9 ug/dL 30.9-295.6 [facility] Work Phone: Comment on above: Performed at: [facility] [email or web address] [address] [id number] Director: Petr Arzola PhD, Phone: [phone] Estimated GFR (MDRD) Amer 68 mL/min >60 [facility] Work Phone: Comment on above: GFR Calc Estimated GFR (MDRD) Non-Af Amer 56 mL/min >60 [facility] Work Phone: Comment on above: Non- GFR Calc Thyroid Stimulating Hormone (TSH) 4.21 uIU/mL 0.358-3.74 [facility] Work Phone: Vitamin D 25-Hydroxy 62.4 ng/mL [facility] Work Phone: Comment on above: Vitamin D 25(OH) Sta tus Range Deficiency <20 ng/mL (50nmol/L) Insufficiency 20 - 30 ng/mL (50 - 75 nmol/L) Sufficiency 30 - 100 ng/mL (75 - 250 nmol/L) Toxicity >100 ng/mL (>250 nmol/L) Serum or plasma albumin meño urement (mass/volume)on 10-11-2021 Albumin [Mass/Vol] 3.2 g/dL 3.2-5.0 [facility] Work Phone: Serum or plasma albumin/glob ulin mass ratioon 10-11-2021 Albumin/Globulin [Mass ratio] 0.8 {ratio} 0.9-2.4 [facility] Work Phone: Serum or plasma calcium meño urement (mass/volume)on 10-11-2021 Calcium [Mass/Vol] 8.7 mg/dL 8.5-10.1 [facility] Work Phone: Serum or plasma creatinine m easurement (mass/volume)on 10-11-2021 Creatinine [Mass/Vol] 1.33 mg/dL 0.70-1.30 [facility] Work Phone: Comment on above: The validity of the calculated GFR & GFRAA in patients over 70 years has not been determined. Clinical correlation is essential. 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 02-07-2017 Left ventricular Ejection fraction 70 % [facility] Work Phone: Office Visit: 6 month follow upon 01-28-2017 Documentation of current medications (procedure) Done Invalid Interpretation Code [facility] [employer] Work Phone: [phone] Protein mass conc Done [facility] [employer] Phone: [phone] Tobacco smoking status NHIS Never smoker [facility] [employer] Work Phone: [phone] Tobacco use CPHS Never smoker Invalid Interpretation Code [facility] [employer] Phone: [phone] Office Visiton 10-23-2016 Documentation of current medications (procedure) Done Invalid Interpretation Code [facility] Work Phone: [phone] Fall risk assessment No [facility] Work Phone: [phone] Clinical Lists Update: P[employer] logistics service representative 10-19-2016 Left ventricular Ejection fraction 60 % Invalid Interpretation Code [facility] Work Phone: [phone] Lab Report: Basic Metabolic Profile (BMP)on 10-12-2016 Anion gap 5 mmol/L Invalid Interpretation Code 10-29 [employer] Work Phone: [phone] Anion gap molar conc 5 mmol/L 5-15 [facility] [facility] Work Phone: [phone] BUN/Creatinine Ratio 12.2 RATIO 10-20 [employer] Work Phone: [phone] Calcium 8.5 mg/dL 8.5-10.1 [employer] Work Phone: [phone] Chloride 110 mmol/L High 98-107 [employer] Work Phone: [phone] CO2 24.0 mmol/L Invalid Interpretation Code 21.0-32.0 [employer] Work Phone: [phone] CO2 ppres (BldV) 24.0 mmol/L 21.0-32.0 [employer] Work Phone: [phone] Creatinine 1.56 mg/dL High 0.70-1.30 [employer] Work Phone: [phone] eGFR (non-black) 48 mL/min/{1.73_m2} Low >60 [facility] Work Phone: [phone] eGFR (non-black) 57 mL/min/{1.73_m2} Low >60 [facility] Work Phone: [phone] EST GFR - AA 57 mL/min Low >60 [facility] Work Phone: [phone] Glucose 124 mg/dL High 70-110 [facility] Work Phone: [phone] Glucose mass conc 124 mg/dL High 70-110 [facility] Work Phone: [phone] Potassium molar conc 4.0 mmol/L 3.5-5.[address] [facility] Work Phone: [phone] Sodium 139 mmol/L 136-145 [facility] Work Phone: [phone] Urea nitrogen 19 mg/dL High 7-18 [facility] Work Phone: [phone] Lab Report: CBC-Complete Blo od Cnt No Diffon 10-12-2016 Erythrocyte distribution width Auto Ratio (RBC) 13.3 % Invalid Interpretation Code 11.6-14.6 [facility] Work Phone: [phone] Erythrocyte distribution width Ratio (RBC) 44.6 fL High 35.1-43.9 [facility] Work Phone: [phone] Erythrocyte distribution width Ratio (RBC) 13.3 % 11.6-14.6 [facility] Work Phone: [phone] Erythrocytes (RBC) 4.95 10*6/uL Invalid Interpretation Code 4.6-6.2 [facility] Work Phone: [phone] Hematocrit (HCT) 46.8 % Invalid Interpretation Code 40-54 [facility] Work Phone: [phone] Hematocrit Volume Fraction (Bld) 46.8 % 40-54 [facility] Work Phone: [phone] Hemoglobin mass conc (Bld) 15.8 g/dL 13.0-16.5 [facility] Work Phone: [phone] MCH 31.9 pg Invalid Interpretation Code 27.0-32.0 [facility] Work Phone: [phone] MCH Entitic mass (RBC) 31.9 pg 27.0-32.0 [facility] Work Phone: [phone] MCHC mass conc (RBC) 33.8 G/GL Invalid Interpretation Code 32-36 [facility] Work Phone: [phone] MCHC mass conc (RBC) 33.8 G/GL 32-[address] [facility] Work Phone: [phone] MCV 94.5 fL High 80-94 [facility] Work Phone: [phone] MCV Entitic volume (RBC) 94.5 fL High 80-94 [facility] Work Phone: [phone] Platelet mean volume Entitic volume (Bld) 11.0 fL 6.2-12.0 [facility] Work Phone: [phone] Platelets 238 10*3/mm3 Invalid Interpretation Code 150-450 [facility] Work Phone: [phone] Platelets #/vol (Bld) 238 10*3/mm3 150-450 [facility] Work Phone: [phone] PMV by Rico 11.0 fL Invalid Interpretation Code 6.2-12.0 [facility] Work Phone: [phone] RBC #/vol (Bld) 4.95 10*6/uL 4.6-6.2 [facility] Work Phone: [phone] RDW SD 44.6 fL High 35.1-43.9 [facility] Work Phone: [phone] red blood cell distribution width, size density 44.6 fL High 35.1-43.9 [facility] Work Phone: [phone] WBC #/vol (Bld) 6.9 10*3/uL 4.4-11.0 [facility] Work Phone: [phone] WBC (Leukocytes) 6.9 10*3/uL Invalid Interpretation Code 4.4-11.0 [facility] Work Phone: [phone]) Office Visit: [facility] 10-13-19 17 Fall risk assessment No Invalid Interpretation Code [employer] Phone: [phone] Replaced Document: Ching Sutherland 10-12-2016 EKG QRS axis 34 deg [employer] Work Phone: [phone] electrocardiogram interpretation 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 ABNORMAL [facility] Work Phone: [phone] P [place] 44 deg [facility] Work Phone: [phone] P wave axis, electrocardiogram 44 deg Invalid Interpretation Code [facility] Work Phone: [phone] [place] Interval 156 ms [facility] Work Phone: [phone] [place] interval, electrocardiogram 156 ms Invalid Interpretation Code [facility] Work Phone: [phone] Pulse (Heart Rate) 82 /min Invalid Interpretation Code [facility] Work Phone: [phone] QRS axis, electrocardiogram 34 deg Invalid Interpretation Code [facility] Work Phone: [phone] QRS Duration 100 ms [facility] Work Phone: [phone] QRS duration, electrocardiogram 100 ms Invalid Interpretation Code [facility] Work Phone: [phone] QT Interval new path ms [facility] Work Phone: [phone] QT interval, electrocardiogram new path ms Invalid Interpretation Code [facility] Work Phone: [phone] QTc [place] 422 ms [employer] Work Phone: [phone] T [place] 48 deg [facility] Work Phone: [phone] T wave axis, electrocardiogram 48 deg Invalid Interpretation Code [facility] Work Phone: [phone] Office Visit: [facility] 04-10-20 Dietary management education, guidance, and counseling (procedure) yes Invalid Interpretation Code [facility] Work Phone: [phone] Documentation of current medications (procedure) Done Invalid Interpretation Code [facility] Work Phone: [phone] Clinical Lists Update: [place] 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 service representative 04-06-2016 Alanine aminotransferase (ALT) 34 U/L [employer] Work Phone: [phone] Alkaline phosphatase (ALP) 77 U/L Invalid Interpretation Code [facility] Work Phone: [phone] ALP enzyme act/vol (Bld) 77 U/L [facility] Work Phone: [phone] Aspartate aminotransferase (AST) 23 U/L [employer] Work Phone: [phone] Cholesterol 164 mg/dL [employer] Work Phone: [phone] HDL Cholesterol 47 mg/dL [employer] Work Phone: [phone] LDL Cholesterol 92 mg/dL [employer] Work Phone: [phone] Protein 7.0 g/dL [facility] Work Phone: [phone] Thyroid stimulating hormone (TSH) 2.89 u[iU]/mL [facility] Work Phone: [phone] Triglyceride 125 mg/dL [facility] Work Phone: [phone] Clinical Lists Update: Pre 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 service representative 10-14-2015 Left ventricular Ejection fraction 60 % Invalid Interpretation Code [facility] Work Phone: [phone] Office Visiton 10-03-2015 Tobacco use CPHS Never smoker Invalid Interpretation Code [facility] Work Phone: [phone] Clinical Lists Update: [facility] logistics service representative 09-07-2015 very low density lipoproteins 25 mg/dL [facility] Work Phone: [phone] Office Visiton 09-08-2014 cardiac risk group [facility] Work Phone: [phone] General cardiovascular disease 10Y risk [#] [place].Reynaldo'Alvino N/A [facility] Work Phone: [phone] Clinical Lists Update: [facility] logistics service representative 06-24-2014 Albumin 3.8 g/dL [facility] Work Phone: [phone] Bilirubin (total) 0.30 mg/dL [facility] Work Phone: [phone] Lab Report: PTon 04-16-2013 INR Coag RelTime (PPP) 1.0 {INR} Normal [facility] Work Phone: [phone] INR in blood by coagulation 1.0 {INR} Normal [facility] Work Phone: [phone] prothrombin time, actual/normal, ratio 12.2 SECONDS Normal 11.9-14.4 [facility] Work Phone: [phone] PTP 12.2 SECONDS Normal 11.9-14.4 [facility] Work Phone: [phone] Replaced Document: Ching Crow CG Observationson 04-16-2013 Pulse (Heart Rate) 395 ms Invalid Interpretation Code [facility] Work Phone: [phone] Fungus culture and stain Fungal Culture Violetta albicans [facility] Work Phone: Fungal Culture Cladosporium species [facility] Work Phone: Vital Signs Date Time Vital Sign Value Performing Clinician Facility 08-25-2024 14:15-0400 Body height 165.1 cm Ericka Melissa MD Work Phone: [facility] Comment on above: verbal 08-25-2024 14:15-0400 Body mass index (BMI) [Ratio] 34.35 kg/m2 Ericka Melissa MD Work Phone: [facility] 08-25-2024 14:15-0400 Body temperature 98.2 [degF] Ericka Melissa MD Work Phone: [phone] [address] 08-25-2024 14:15-0400 Body weight 93.62 kg Ericka Melissa MD Work Phone: [phone] [address] 08-25-2024 14:15-0400 Diastolic blood pressure 63 mm[Hg] Ericka Melissa MD Work Phone: [facility] Comment on above: right arm 08-25-2024 14:15-0400 Heart rate 84 /min Ericka Melissa MD Work Phone: [facility] 08-25-2024 14:15-0400 Systolic blood pressure 103 mm[Hg] Ericka Melissa MD Work Phone: [facility] Comment on above: right arm 08-19-2024 15:40-0500 Body temperature 97.1 [degF] Dr. Connor Kohli MD Work Phone: [facility] 08-19-2024 15:40-0500 Diastolic blood pressure 87 mm[Hg] Dr. Connor Kohli MD Work Phone: [facility] 08-19-2024 15:40-0500 Heart rate 70 /min Dr. Connor Kohli MD Work Phone: [facility] 08-19-2024 15:40-0500 Respiratory rate 16 /min Dr. Connor Kohli MD Work Phone: [facility] 08-19-2024 15:40-0500 SaO2% (BldA) [Mass fraction] 93 % Dr. Connor Kohli MD Work Phone: [facility] 08-19-2024 15:40-0500 Systolic blood pressure 102 mm[Hg] Dr. Connor Kohli MD Work Phone: [facility] 08-19-2024 15:35-0500 Inhaled oxygen flow rate 2 L/min Dr. Connor Kohli MD Work Phone: [facility] 08-19-2024 13:05-0500 Body height 165.[address] Connor Kohli MD Work Phone: [facility] 08-19-2024 13:05-0500 Body mass index (BMI) [Ratio] 34.9 kg/m2 Dr. Connor Kohli MD Work Phone: [facility] 08-19-2024 13:05-0500 Body weight 95.[address] Connor Kohli MD Work Phone: [facility] 07-30-2024 10:08-0500 Diastolic blood pressure 59 mm[Hg] Dr. Connor Kohli MD Work Phone: [facility] 07-30-2024 10:08-0500 Heart rate 78 /min Dr. Connor Kohli MD Work Phone: [facility] 07-30-2024 10:08-0500 Systolic blood pressure 101 mm[Hg] Dr. Connor Kohli MD Work Phone: [facility] 07-30-2024 08:48-0500 Body temperature 97.2 [degF] Dr. Connor Kohli MD Work Phone: [facility] 07-30-2024 08:48-0500 Respiratory rate 16 /min Dr. Connor Kohli MD Work Phone: [facility] 07-30-2024 08:48-0500 SaO2% (BldA) [Mass fraction] 98 % Dr. Connor Kohli MD Work Phone: [facility] 07-29-2024 21:07-0500 Inhaled oxygen flow rate 2 L/min Dr. Connor Kohli MD Work Phone: [facility] 07-29-2024 17:07-0500 Body mass index (BMI) [Ratio] 34.4 kg/m2 Dr. Connor Kohli MD Work Phone: [phone] [place] [address] 07-29-2024 17:07-0500 Body weight [address] Connor Kohli MD Work Phone: [phone] [place] [address] 05-24-2024 14:11-0500 Body mass index (BMI) [Ratio] 36.1 kg/m2 Dr. Connor Kohli MD Work Phone: [phone] [address] 05-24-2024 14:11-0500 Body temperature 97.7 [degF] Dr. Connor Kohli MD Work Phone: [phone] [place] [address] 05-24-2024 14:11-0500 Body weight 98.[address] Connor Kohli MD Work Phone: [facility] 05-24-2024 14:11-0500 Diastolic blood pressure 72 mm[Hg] Dr. Connor Kohli MD Work Phone: [phone] [place] [address] 05-24-2024 14:11-0500 Heart rate 74 /min Dr. Connor Kohli MD Work Phone: [phone] [place] [address] 05-24-2024 14:11-0500 Respiratory rate 18 /min Dr. Connor Kohli MD Work Phone: [facility] 05-24-2024 14:11-0500 SaO2% (BldA) [Mass fraction] 96 % Dr. Connor Kohli MD Work Phone: [facility] 05-24-2024 14:11-0500 Systolic blood pressure 124 mm[Hg] Dr. Connor Kohli MD Work Phone: [facility] 05-24-2024 13:42-0500 Body temperature 97.81 [degF] Christofer Alston APRN.CNP Work Phone: [facility] 05-24-2024 13:42-0500 Body weight 98.3 kg Christofer Moomaw PRIMARY EDUCATION PROFESSOR.TECHNICAL TESTING ENGINEER Work Phone: [facility] 05-24-2024 13:42-0500 Diastolic blood pressure 66 mm[Hg] Christofer Moomaw PRIMARY EDUCATION PROFESSOR.TECHNICAL TESTING ENGINEER Work Phone: [facility] 05-24-2024 13:42-0500 Heart rate 80 /min Christofer Moomaw PRIMARY EDUCATION PROFESSOR.TECHNICAL TESTING ENGINEER Work Phone: [facility] 05-24-2024 13:42-0500 Respiratory rate 16 /min Christofer Moomaw PRIMARY EDUCATION PROFESSOR.TECHNICAL TESTING ENGINEER Work Phone: [facility] 05-24-2024 13:42-0500 SaO2% (BldA) [Mass fraction] 95 % Christofer Moomaw PRIMARY EDUCATION PROFESSOR.TECHNICAL TESTING ENGINEER Work Phone: [facility] 05-24-2024 13:42-0500 Systolic blood pressure 118 mm[Hg] Christofer Moomaw PRIMARY EDUCATION PROFESSOR.TECHNICAL TESTING ENGINEER Work Phone: [facility] 05-23-2024 00:23-0500 Body temperature 98.5 [degF] Dr. Connor Kohli MD Work Phone: [facility] 05-23-2024 00:23-0500 Diastolic blood pressure 71 mm[Hg] Dr. Connor Kohli MD Work Phone: [facility] 05-23-2024 00:23-0500 Heart rate 77 /min Dr. Connor Kohli MD Work Phone: [facility] 05-23-2024 00:23-0500 Respiratory rate 16 /min Dr. Connor Kohli MD Work Phone: [facility] 05-23-2024 00:23-0500 SaO2% (BldA) [Mass fraction] 94 % Dr. Connor Kohli MD Work Phone: [facility] 05-23-2024 00:23-0500 Systolic blood pressure 122 mm[Hg] Dr. Connor Kohli MD Work Phone: [facility] 05-12-2024 13:25-0500 Body height 165.1 cm Ericka Melissa MD Work Phone: [facility] Comment on above: verbal 05-12-2024 13:25-0500 Body mass index (BMI) [Ratio] 36.21 kg/m2 Ericka Melissa MD Work Phone: [facility] 05-12-2024 13:25-0500 Body temperature 98.01 [degF] Ericka Melissa MD Work Phone: [facility] 05-12-2024 13:25-0500 Body weight 98.7 kg Ericka Melissa MD Work Phone: [facility] 05-12-2024 13:25-0500 Diastolic blood pressure 69 mm[Hg] Ericka Melissa MD Work Phone: [facility] 05-12-2024 13:25-0500 Heart rate 72 /min Ericka Melissa MD Work Phone: [facility] 05-12-2024 13:25-0500 Systolic blood pressure 123 mm[Hg] Ericka Melissa MD Work Phone: [facility] 05-07-2024 08:20-0500 Body mass index (BMI) [Ratio] 38.2 kg/m2 Dr. Connor Kohli MD Work Phone: [facility] 05-07-2024 08:20-0500 Body temperature 98.2 [degF] Dr. Connor Kohli MD Work Phone: [facility] 05-07-2024 08:20-0500 Body weight 98.[address] Connor Kohli MD Work Phone: [facility] 05-07-2024 08:20-0500 Diastolic blood pressure 70 mm[Hg] Dr. Connor Kohli MD Work Phone: [facility] 05-07-2024 08:20-0500 Heart rate 65 /min Dr. Connor Kohli MD Work Phone: [facility] 05-07-2024 08:20-0500 Respiratory rate 17 /min Dr. Connor Kohli MD Work Phone: [facility] 05-07-2024 08:20-0500 SaO2% (BldA) [Mass fraction] 98 % Dr. Connor Kohli MD Work Phone: [facility] 05-07-2024 08:20-0500 Systolic blood pressure 110 mm[Hg] Dr. Connor Kohli MD Work Phone: 8(841)951-732657 [address] 05-05-2024 08:38-0500 Body mass index (BMI) [Ratio] 38.2 kg/m2 Dr. Connor Kohli MD Work Phone: 2(074)954-387757 [address] 05-05-2024 08:38-0500 Body weight 97.[address] Connor Kohli MD Work Phone: 1(386)789-211157 [address] 05-05-2024 08:38-0500 Diastolic blood pressure 71 mm[Hg] Dr. Connor Kohli MD Work Phone: 7(692)844-860157 [address] 05-05-2024 08:38-0500 Heart rate 72 /min Dr. Connor Kohli MD Work Phone: [facility] 05-05-2024 08:38-0500 Respiratory rate 16 /min Dr. Connor Kohli MD Work Phone: [facility] 05-05-2024 08:38-0500 Systolic blood pressure 111 mm[Hg] Dr. Connor Kohli MD Work Phone: [facility] 09-19-2023 08:23-0400 Body temperature 98 [degF] Dr. Connor Kohli Work Phone: [facility] 09-19-2023 08:23-0400 Body weight 97.[address] Connor Kohli Work Phone: [facility] 09-19-2023 08:23-0400 Diastolic blood pressure 68 mm[Hg] Dr. Connor Kohli Work Phone: [facility] 09-19-2023 08:23-0400 Heart rate 70 /min Dr. Connor Kohli Work Phone: [facility] 09-19-2023 08:23-0400 Respiratory rate 14 /min Dr. Connor Kohli Work Phone: [facility] 09-19-2023 08:23-0400 SaO2% (BldA) [Mass fraction] 98 % Dr. Connor Kohli Work Phone: [facility] 09-19-2023 08:23-0400 Systolic blood pressure 110 mm[Hg] Dr. Connor Kohli Work Phone: [facility] 08-19-2023 13:48-0500 Body temperature 98.2 [degF] Dr. Connor Kohli Work Phone: [facility] 08-19-2023 13:48-0500 Body weight 97.[address] Connor Kohli Work Phone: [facility] 08-19-2023 13:48-0500 Diastolic blood pressure 70 mm[Hg] Dr. Connor Kohli Work Phone: [facility] 08-19-2023 13:48-0500 Heart rate 71 /min Dr. Connor Kohli Work Phone: [facility] 08-19-2023 13:48-0500 Respiratory rate 13 /min Dr. Connor Kohli Work Phone: [facility] 08-19-2023 13:48-0500 SaO2% (BldA) [Mass fraction] 97 % Dr. Connor Kohli Work Phone: [facility] 08-19-2023 13:48-0500 Systolic blood pressure 110 mm[Hg] Dr. Connor Kohli Work Phone: [facility] 07-18-2023 08:32-0500 Body height 160.[address] Connor Kohli Work Phone: [facility] 07-18-2023 08:32-0500 Body mass index (BMI) [Ratio] 37.6 kg/m2 Dr. Connor Kohli Work Phone: [facility] 07-18-2023 08:32-0500 Body temperature 98.2 [degF] Dr. Connor Kohli Work Phone: [facility] 07-18-2023 08:32-0500 Body weight 96.[address] Connor Kohli Work Phone: [facility] 07-18-2023 08:32-0500 Diastolic blood pressure 72 mm[Hg] Dr. Connor Kohli Work Phone: [facility] 07-18-2023 08:32-0500 Heart rate 72 /min Dr. Connor Kohli Work Phone: [facility] 07-18-2023 08:32-0500 Respiratory rate 17 /min Dr. Connor Kohli Work Phone: [facility] 07-18-2023 08:32-0500 SaO2% (BldA) [Mass fraction] 98 % Dr. Connor Kohli Work Phone: [facility] 07-18-2023 08:32-0500 Systolic blood pressure 108 mm[Hg] Dr. Connor Kohli Work Phone: [facility] 06-18-2023 09:01-0500 Body temperature 98.6 [degF] Dr. Connor Kohli Work Phone: [facility] 06-18-2023 09:01-0500 Body weight 95.[address] Connor Kohli Work Phone: [facility] 06-18-2023 09:01-0500 Diastolic blood pressure 64 mm[Hg] Dr. Connor Kohli Work Phone: [facility] 06-18-2023 09:01-0500 Heart rate 84 /min Dr. Connor Kohli Work Phone: [facility] 06-18-2023 09:01-0500 Respiratory rate 16 /min Dr. Connor Kohli Work Phone: [facility] 06-18-2023 09:01-0500 SaO2% (BldA) [Mass fraction] 96 % Dr. Connor Kohli Work Phone: 5(823)468-765006 [place] [address] 06-18-2023 09:01-0500 Systolic blood pressure 100 mm[Hg] Dr. Connor Kohli Work Phone: 3(393)135-265257 [address] 05-16-2023 13:00-0500 Body mass index (BMI) [Ratio] 37 kg/m2 Dr. Connor Kohli Work Phone: 7(705)278-913306 [place] [address] 05-16-2023 13:00-0500 Body weight 94.[address] Connor Kohli Work Phone: 4(823)960-750494 [place] [address] 05-16-2023 13:00-0500 Diastolic blood pressure 68 mm[Hg] Dr. Connor Kohli Work Phone: 6(571)913-609294 [place] [address] 05-16-2023 13:00-0500 Heart rate 78 /min Dr. Connor Kohli Work Phone: 4(797)213-924257 [address] 05-16-2023 13:00-0500 Respiratory rate 16 /min Dr. Connor Kohli Work Phone: 5(845)128-809094 [place] [address] 05-16-2023 13:00-0500 Systolic blood pressure 113 mm[Hg] Dr. Connor Kohli Work Phone: 2(510)988-998006 [place] [address] 05-14-2023 08:07-0500 Body height 160.[address] Connor Kohli Work Phone: 8(527)370-090006 [place] [address] 05-14-2023 08:07-0500 Body mass index (BMI) [Ratio] 37.2 kg/m2 Dr. Connor Kohli Work Phone: 3(761)448-203794 [place] [address] 05-14-2023 08:07-0500 Body temperature 98.2 [degF] Dr. Connor Kohli Work Phone: 2(308)768-605657 [address] 05-14-2023 08:07-0500 Body weight 95.[address] Connor Kohli Work Phone: 2(985)209-617606 [place] [address] 05-14-2023 08:07-0500 Diastolic blood pressure 70 mm[Hg] Dr. Connor Kohli Work Phone: [facility] 05-14-2023 08:07-0500 Heart rate 78 /min Dr. Connor Kohli Work Phone: [facility] 05-14-2023 08:07-0500 Respiratory rate 16 /min Dr. Connor Kohli Work Phone: [facility] 05-14-2023 08:07-0500 SaO2% (BldA) [Mass fraction] 95 % Dr. Connor Kohli Work Phone: [facility] 05-14-2023 08:07-0500 Systolic blood pressure 115 mm[Hg] Dr. Connor Kohli Work Phone: [facility] 04-01-2023 07:53-0400 Body height 160.[address] Connor Kohli Work Phone: [facility] 04-01-2023 07:53-0400 Body mass index (BMI) [Ratio] 36.8 kg/m2 Dr. Connor Kohli Work Phone: 9(494)375-048206 [place] [address] 04-01-2023 07:53-0400 Body temperature 98 [degF] Dr. Connor Kohli Work Phone: [facility] 04-01-2023 07:53-0400 Body weight 94.[address] Connor Kohli Work Phone: [facility] 04-01-2023 07:53-0400 Diastolic blood pressure 60 mm[Hg] Dr. Connor Kohli Work Phone: [facility] 04-01-2023 07:53-0400 Heart rate 65 /min Dr. Connor Kohli Work Phone: [facility] 04-01-2023 07:53-0400 Respiratory rate 17 /min Dr. Connor Kohli Work Phone: [facility] 04-01-2023 07:53-0400 SaO2% (BldA) [Mass fraction] 94 % Dr. Connor Kohli Work Phone: [facility] 04-01-2023 07:53-0400 Systolic blood pressure 108 mm[Hg] Dr. Connor Kohli Work Phone: [facility] 11-29-2022 17:13-0400 Diastolic blood pressure 74 mm[Hg] Dr. Connor Kohli Work Phone: [facility] 11-29-2022 17:13-0400 Heart rate 101 /min Dr. Connor Kohli Work Phone: [facility] 11-29-2022 17:13-0400 Systolic blood pressure 109 mm[Hg] Dr. Connor Kohli Work Phone: [facility] 11-29-2022 08:52-0400 Body height 160.[address] Connor Kohli Work Phone: [facility] 11-29-2022 08:52-0400 Body mass index (BMI) [Ratio] 37.7 kg/m2 Dr. Connor Kohli Work Phone: [facility] 11-29-2022 08:52-0400 Body temperature 99.5 [degF] Dr. Connor Kohli Work Phone: [facility] 11-29-2022 08:52-0400 Body weight 96.[address] Connor Kohli Work Phone: [facility] 11-29-2022 08:52-0400 Respiratory rate 17 /min Dr. Connor Kohli Work Phone: [facility] 11-29-2022 08:52-0400 SaO2% (BldA) [Mass fraction] 94 % Dr. Connor Kohli Work Phone: [facility] 11-22-2022 13:54-0400 Body mass index (BMI) [Ratio] 37.3 kg/m2 Dr. Connor Kohli Work Phone: [facility] 11-22-2022 13:54-0400 Body weight 95.[address] Connor Kohli Work Phone: [facility] 11-22-2022 13:54-0400 Diastolic blood pressure 65 mm[Hg] Dr. Connor Kohli Work Phone: [facility] 11-22-2022 13:54-0400 Heart rate 80 /min Dr. Connor Kohli Work Phone: [facility] 11-22-2022 13:54-0400 Respiratory rate 16 /min Dr. Connor Kohli Work Phone: [facility] 11-22-2022 13:54-0400 Systolic blood pressure 105 mm[Hg] Dr. Connor Kohli Work Phone: [facility] 05-21-2022 14:00-0500 Body height 160.[address] Connor Kohli Work Phone: [facility] 05-21-2022 14:00-0500 Body mass index (BMI) [Ratio] 37.3 kg/m2 Dr. Connor Kohli Work Phone: [facility] 05-21-2022 14:00-0500 Body weight 95.[address] Connor Kohli Work Phone: [facility] 05-21-2022 14:00-0500 Diastolic blood pressure 62 mm[Hg] Dr. Connor Kohli Work Phone: [facility] 05-21-2022 14:00-0500 Heart rate 84 /min Dr. Connor Kohli Work Phone: [facility] 05-21-2022 14:00-0500 Respiratory rate 18 /min Dr. Connor Kohli Work Phone: [facility] 05-21-2022 14:00-0500 Systolic blood pressure 110 mm[Hg] Dr. Connor Kohli Work Phone: [facility] 03-13-2022 10:56-0400 Body height 160.[address] Connor Kohli Work Phone: [facility] Work Phone: 03-13-2022 10:56-0400 Body mass index (BMI) [Ratio] 37.5 kg/m2 Dr. Connor Kohli Work Phone: [facility] Work Phone: 03-13-2022 10:56-0400 Body weight 96.[address] Connor Kohli Work Phone: [facility] Work Phone: 03-13-2022 10:56-0400 Diastolic blood pressure 65 mm[Hg] Dr. Connor Kohli Work Phone: [facility] Work Phone: 03-13-2022 10:56-0400 Heart rate 82 /min Dr. Connor Kohli Work Phone: [facility] Work Phone: 03-13-2022 10:56-0400 Respiratory rate 16 /min Dr. Connor Kohli Work Phone: [facility] Work Phone: 03-13-2022 10:56-0400 Systolic blood pressure 107 mm[Hg] Dr. Connor Kohli Work Phone: [facility] Work Phone: 01-29-2022 08:27-0400 Body height 160.[address] Connor Kohli Work Phone: [facility] Work Phone: 01-29-2022 08:26-0400 Body mass index (BMI) [Ratio] 37.2 kg/m2 Dr. Connor Kohli Work Phone: [facility] Work Phone: 01-29-2022 08:26-0400 Body weight 95.[address] Connor Kohli Work Phone: [facility] Work Phone: 01-29-2022 08:26-0400 Diastolic blood pressure 72 mm[Hg] Dr. Connor Kohli Work Phone: [facility] Work Phone: 01-29-2022 08:26-0400 Heart rate 90 /min Dr. Connor Kohli Work Phone: [facility] Work Phone: 01-29-2022 08:26-0400 Respiratory rate 18 /min Dr. Connor Kohli Work Phone: [facility] Work Phone: 01-29-2022 08:26-0400 SaO2% (BldA) [Mass fraction] 95 % Dr. Connor Kohli Work Phone: [facility] Work Phone: 01-29-2022 08:26-0400 Systolic blood pressure 114 mm[Hg] Dr. Connor Kohli Work Phone: [facility] Work Phone: 10-25-2021 14:38-0400 Body height 160.[address] Connor Kohli Work Phone: [facility] Work Phone: 10-25-2021 14:38-0400 Body mass index (BMI) [Ratio] 38.1 kg/m2 Dr. Connor Kohli Work Phone: [facility] Work Phone: 10-25-2021 14:38-0400 Body weight 97.[address] Connor Kohli Work Phone: [facility] Work Phone: 10-25-2021 14:38-0400 Diastolic blood pressure 70 mm[Hg] Dr. Connor Kohli Work Phone: [facility] Work Phone: 10-25-2021 14:38-0400 Heart rate 110 /min Dr. Connor Kohli Work Phone: [facility] Work Phone: 10-25-2021 14:38-0400 Respiratory rate 18 /min Dr. Connor Kohli Work Phone: [facility] Work Phone: 10-25-2021 14:38-0400 SaO2% (BldA) [Mass fraction] 96 % Dr. Connor Kohli Work Phone: [facility] Work Phone: 10-25-2021 14:38-0400 Systolic blood pressure 130 mm[Hg] Dr. Connor Kohli Work Phone: [facility] Work Phone: 10-25-2021 14:38-0400 Body height 160.[address] Connor Kohli Work Phone: [facility] Work Phone: 10-25-2021 14:38-0400 Body mass index (BMI) [Ratio] 38.1 kg/m2 Dr. Connor Kohli Work Phone: [facility] Work Phone: 10-25-2021 14:38-0400 Body weight 97.[address] Connor Kohli Work Phone: [facility] Work Phone: 10-25-2021 14:38-0400 Diastolic blood pressure 70 mm[Hg] Dr. Connor Kohli Work Phone: [facility] Work Phone: 10-25-2021 14:38-0400 Heart rate 110 /min Dr. Connor Kohli Work Phone: [facility] Work Phone: 10-25-2021 14:38-0400 Respiratory rate 18 /min Dr. Connor Kohli Work Phone: [facility] Work Phone: 10-25-2021 14:38-0400 SaO2% (BldA) [Mass fraction] 96 % Dr. Connor Kohli Work Phone: [facility] Work Phone: 10-25-2021 14:38-0400 Systolic blood pressure 130 mm[Hg] Dr. Connor Kohli Work Phone: [facility] Work Phone: 01-28-2017 14:43-0400 BMI (Body Mass Index) 37.27 kg/m2 Tu [facility] Work Phone: 01-28-2017 14:43-0400 BP Diastolic 84 mm[Hg] Tu [facility] Work Phone: 01-28-2017 14:43-0400 BP Systolic 128 mm[Hg] Tu [facility] Work Phone: 01-28-2017 14:43-0400 Height 165.1 cm Tu [facility] Work Phone: 01-28-2017 14:43-0400 Pulse (Heart Rate) 90 /min Tu [facility] Work Phone: 01-28-2017 14:43-0400 Weight 101.61 kg Tu [facility] Work Phone: 01-28-2017 14:43-0400 Weight 101.6 kg Tu [facility] Work Phone: 10-23-2016 13:50-0400 BMI (Body Mass Index) 37.37 kg/m2 Sapna [facility] Work Phone: 10-23-2016 13:50-0400 BP Diastolic 50 mm[Hg] S[facility] Work Phone: 10-23-2016 13:50-0400 BP Systolic 82 mm[Hg] Sapna [facility] Work Phone: 10-23-2016 13:50-0400 Height 165.1 cm Sapna [facility] Work Phone: 10-23-2016 13:50-0400 Pulse (Heart Rate) 88 /min S[facility] Work Phone: 10-23-2016 13:50-0400 Respiratory Rate 20 /min S[facility]na [facility] Work Phone: 10-23-2016 13:50-0400 Weight 101.88 kg [facility] Work Phone: 10-12-2016 09:44-0400 Heart rate 82 /min Rylee Kulkarni RN [facility] Work Phone: 10-12-2016 09:12-0400 BMI (Body Mass Index) 37.34 kg/m2 Ghada [facility] Work Phone: 10-12-2016 09:12-0400 BP Diastolic 60 mm[Hg] Ghada [facility] Work Phone: 10-12-2016 09:12-0400 BP Systolic 100 mm[Hg] Ghada [facility] Work Phone: 10-12-2016 09:12-0400 Height 165.1 cm Ghada [facility] Work Phone: 10-12-2016 09:12-0400 Pulse (Heart Rate) 82 /min [facility] Work Phone: 10-12-2016 09:12-0400 Pulse Oximetry 96 % Ghada [facility] Work Phone: 10-12-2016 09:12-0400 Respiratory Rate 20 /min Ghada [facility] Work Phone: 10-12-2016 09:12-0400 Weight 101.79 kg Gh[facility] Work Phone: 04-10-2016 13:33-0400 BSA (Body Surface Area) 2.07 m2 Ghada Beka [facility] Work Phone: 04-16-2013 10:35-0400 Heart rate 395 ms Rylee Kulkarni RN [facility] Work Phone: Encounters Encounter Date Encounter Type Care Provider Facility Start: 11-04-2024 End: 11-04-[address] Connor Kohli MD Work Phone: [facility] Work Phone: Start: 11-04-2024 End: 11-04-[address] Griffin Barcenas [place] Work Phone: Start: 11-04-2024 End: 11-04-2024 [facility] Start: 08-26-2024 End: 08-26-[address] Connor Kohli MD Work Phone: [facility] Work Phone: Start: 08-26-2024 End: 08-26-[address] Griffin Barcenas, [place] Work Phone: Start: 08-25-2024 End: 08-25-2024 Office outpatient visit 15 minutes Ericka Melissa MD Work Phone: Neurology [facility] Comment on above: Lumbar radiculopathy (Primary Dx) Start: 08-25-2024 ambulatory ERICKA MELISSA Facilit y:[facility] Start: 08-25-2024 End: 08-26-2024 ambulatory ERICKA MELISSA Facility:[facility] Start: 08-25-2024 End: 08-25-2024 Subsequent hospital visit by physician Ericka Melissa MD Work Phone: Imaging Outpatient [facility] Comment on above: Arrived Start: 08-19-2024 End: 08-19-2024 Admission to same day surgery center Dr. Octavio Rasmussen MD -Endoscopy Work Phone: Start: 08-19-2024 End: 08-19-2024 ambulatory Connor Kohli Facility:[facility] Start: 08-19-2024 Non-patient / Non-visit Dr. Susannah Perez MD -[facility] Work Phone: Start: 08-13-2024 End: 08-13-[address] Connor Kohli MD Work Phone: [facility] Work Phone: Start: 08-13-2024 End: 08-13-[address] Octavio Rasmussen MD -Laboratory, [place] Work Phone: Start: 08-13-2024 End: 08-13-2024 ambulatory Connor Kohli Facility:[facility] Start: 08-05-2024 End: 08-05-[address] Octavio Rasmussen MD -Cat Scan, [facility] Work Phone: Start: 08-05-2024 End: 08-05-2024 ambulatory Connor Kohli Facility:[facility] Start: 07-29-2024 End: 07-30-2024 ambulatory Avinash Lombardi Facility:[facility] Start: 07-29-2024 End: 07-30-2024 Evaluation and management of inpatient Dr. Avinash Lombardi MD -Medical Surgical 3 Work Phone: Start: 06-29-2024 End: 06-29-2024 ambulatory Connor Kohli Facility:[facility] Start: 06-29-2024 End: 06-29-[address] Connor Kohli MD Work Phone: -Physical Therapy Work Phone: Start: 06-08-2024 End: 06-08-2024 Subsequent hospital visit by physician Ericka Melissa MD Work Phone: Neurodiagnostic Testing Out[facility] Comment on above: Arrived Start: 06-08-2024 ambulatory ERICKA MELISSA Facilit y:[facility] Start: 06-02-2024 ambulatory Alyson Collier Facility:[facility] Start: 06-02-2024 Non-patient / Non-visit Dr. Zenia Blanca MD -[facility] Start: 05-29-2024 ambulatory Leeanne Blanca Fa cility:[facility] Start: 05-29-2024 Non-patient / Non-visit Dr. Zenia Blanca MD -[facility] Start: 05-29-2024 End: 05-29-[address] Alyson Collier MD -Cardiovascular Services Work Phone: Start: 05-29-2024 End: 05-29-2024 ambulatory Alyson Sushma Facility:[facility] Start: 05-24-2024 End: 05-24-2024 Emergency department patient visit Dr. Edilberto Manuel DO -Emergency Department Work Phone: Start: 05-24-2024 End: 05-24-2024 ambulatory Facility:[facility] Start: 05-24-2024 End: 05-24-2024 Patient encounter procedure Christofer Sneedkaylene LANETECHNICAL TESTING ENGINEER Work Phone: [facility] Comment on above: Facial cellulitis (P rimary Dx) Start: 05-22-2024 End: 05-23-2024 Emergency department patient visit Dr. Chito Sanchez -Emergency Department Work Phone: Start: 05-12-2024 ambulatory ERICKA MELISSA Facilit y:[facility] Start: 05-12-2024 End: 05-12-2024 Office outpatient new 45 minutes Ericka Melissa MD Work Phone: Neurology [facility] Comment on above: Lumbar radiculopathy (Primary Dx); Type 2 diabetes mellitus with diabetic neuropathy, without long-term current use of insulin Start: 05-12-2024 ambulatory ERICKA Devi y:[facility] Start: 05-07-2024 End: 05-07-2024 ambulatory Tino Gamble Facility:[facility] Start: 05-07-2024 End: 05-07-[address] Tino Gamble MD -[facility] Work Phone: Start: 05-07-2024 End: 05-07-2024 ambulatory Alyson Sushma Facility:[facility] Start: 05-05-2024 End: 05-05-[address] Alyson Collier MD -[facility] Work Phone: Start: 05-05-2024 End: 05-05-2024 ambulatory Connor Kohli Facility:[facility] Start: 05-05-2024 Encounter for genera l adult medical examination without abnormal findings Connor Kohli [facility] Start: 04-16-2024 End: 04-16-2024 ambulatory Connor Kohli Facility:[facility] Start: 04-07-2024 End: 04-07-2024 ambulatory Connor Layelsen Facility:[facility] Start: 03-02-2024 End: 03-02-2024 ambulatory Connro Kohli Facility:[facility] Start: 02-28-2024 End: 02-28-2024 ambulatory Connor Kohli Facility:[facility] Start: 02-04-2024 End: 02-04-2024 ambulatory Connor Layelsen Facility:[facility] Start: 01-30-2024 End: 01-30-2024 ambulatory Connor Kohli Facility:[facility] Start: 12-26-2023 End: 12-26-2023 ambulatory Connor Kohli Facility:[facility] Start: 12-05-2023 ambulatory Connor Layelsen Facility:[facility] Start: 12-02-2023 End: 12-02-2023 ambulatory Connor Layelsen Facility:[facility] Start: 11-25-2023 End: 11-25-2023 ambulatory Connor Layelsen Facility:[facility] Start: 11-19-2023 End: 11-19-2023 ambulatory Griffin Janna Facility:[facility] Start: 09-19-2023 End: 09-19-[address] Connor Kohli Work Phone: [facility] Work Phone: Start: 09-19-2023 End: 09-19-[address] Connor Kohli Work Phone: [facility] Work Phone: Start: 09-12-2023 End: 09-12-[address] Connor Kohli Work Phone: [facility] Work Phone: Start: 09-12-2023 End: 09-12-[address] Connor Kohli Work Phone: [facility] Work Phone: Start: 08-19-2023 End: 08-19-[address] Connor Kohli Work Phone: [facility] Neurology Work Phone: Start: 07-18-2023 End: 07-18-[address] Connor Kohli Work Phone: [facility] Work Phone: Start: 07-18-2023 End: 07-18-[address] Connor Kohli Work Phone: [facility] Neu[facility] Work Phone: Start: 06-18-2023 End: 06-18-[address] Connor Kohli Work Phone: [facility] Work Phone: Start: 05-16-2023 End: 05-16-[address] Connor Kohli Work Phone: [facility] Work Phone: Start: 05-14-2023 End: 05-14-[address] Connor Kohli Work Phone: [facility] Work Phone: Start: 05-14-2023 End: 05-14-[address] [facility] Start: 05-14-2023 End: 05-14-[address] Connor Kohli Work Phone: [facility] Work Phone: Start: 04-22-2023 End: 04-22-[address] oCnnor Kohli Work Phone: [facility] Work Phone: Start: 04-22-2023 End: 04-22-[address] [facility] Start: 04-01-2023 End: 04-01-[address] Connor Kohli Work Phone: [facility] Work Phone: Start: 04-01-2023 End: 04-01-[address] Connor Kohli Work Phone: [facility] Work Phone: Start: 02-08-2023 End: 02-08-[address] Connor Kohli Work Phone: [facility] Work Phone: Start: 02-08-2023 End: 02-08-[address] Connor Kohli Work Phone: [facility] Work Phone: Start: 01-29-2023 End: 01-29-[address] Connor Kohli Work Phone: [facility] Work Phone: Start: 01-29-2023 End: 01-29-[address] Connor Kohli Work Phone: [facility] Work Phone: Start: 12-31-2022 End: 12-31-[address] Connor Kohli Work Phone: [facility]Physical Therapy Work Phone: Start: 12-05-[address] Connor Kohli Work Phone: [facility] Therapy Start: 12-03-2022 End: 12-03-[address] Connor Kohli Work Phone: [facility] Work Phone: Start: 12-03-2022 End: 12-03-[address] Connor Kohli Work Phone: [facility] Start: 11-29-2022 End: 11-29-[address] Connor Kohli Work Phone: [facility] Neurology Start: 11-22-2022 End: 11-22-[address] Connor Kohli Work Phone: [facility] Start: 10-23-2022 End: 10-23-[address] Connor Kohli Work Phone: [facility] Work Phone: Start: 10-23-2022 End: 10-23-[address] [facility] Start: 10-10-2022 End: 10-10-[address] Connor Kohli Work Phone: [facility] Work Phone: Start: 10-10-2022 End: 10-10-[address] Connor Kohli Work Phone: [facility] Start: 09-28-2022 End: 09-28-[address] Connor Kohli Work Phone: [facility] Start: 08-09-2022 End: 08-09-[address] Connor Kohli Work Phone: [facility] Work Phone: Start: 08-09-2022 End: 08-09-[address] [facility] Start: 08-06-2022 End: 08-06-[address] Connor Kohli Work Phone: [facility] Work Phone: Start: 08-06-2022 End: 08-06-[address] Connor Kohli Work Phone: [facility]-Radiology, [facility] Start: 07-25-2022 End: 07-25-[address] Connor Kohli Work Phone: [facility] Start: 07-04-2022 End: 07-04-[address] Connor Kohli Work Phone: [facility] Work Phone: Start: 07-04-2022 End: 07-04-[address] Connor Kohli Work Phone: [facility] Start: 05-21-2022 End: 05-21-[address] Connor Kohli Work Phone: [facility] Start: 05-18-2022 End: 05-18-[address] Connor Kohli Work Phone: [facility] Work Phone: Start: 05-18-2022 End: 05-18-[address] Connor Kohli Work Phone: [facility] Start: 05-16-2022 End: 05-16-[address] Connor Kohli Work Phone: [facility] Work Phone: Start: 05-16-2022 End: 05-16-[address] Connor Kohli Work Phone: [facility]-Pulmonary Services/Neurology Start: 04-18-2022 End: 04-18-[address] Connor Kohli Work Phone: [facility] Work Phone: Start: 04-18-2022 End: 04-18-[address] Connor Kohli Work Phone: [facility] Start: 03-13-2022 Non-patient / Non-visit Dr. Nick Kohli Work Phone: [facility] Start: 03-13-2022 End: 03-13-[address] Connor Kohli Work Phone: [facility] Work Phone: Start: 03-13-2022 End: 03-13-[address] [facility] Start: 03-13-2022 End: 03-13-[address] Connor Kohli Work Phone: [facility] Start: 02-15-2022 Non-patient / Non-visit Dr. Nick Kohli Work Phone: [facility] Start: 02-15-2022 End: 02-15-[address] Connor Kohli Work Phone: [facility] Work Phone: Start: 02-15-2022 End: 02-15-[address] [facility] Start: 01-29-2022 End: 01-29-[address] Connor Kohli Work Phone: [facility] Start: 01-01-2022 End: 01-01-[address] [facility] Start: 11-23-2021 End: 11-23-[address] [facility] Start: 10-31-2021 End: 10-31-[address] [facility] Start: 10-26-2021 End: 10-26-[address] [facility] Start: 10-25-2021 End: 10-25-[address] Connor Kohli Work Phone: [facility] Start: 10-11-2021 End: 10-11-2021 Patient encounter procedure [facility] [place] Start: 07-25-2018 End: 07-25-2018 Telephone encounter Allyson Adam [employer] Sched[employer] Comment on above: Change In Symptoms Procedures Date Procedure Procedure Detail Performing Clinician Start: 08-20-2024 Blood count leukocyt e wbc automated Dr. Connor Kohli MD Work Phone: Start: 08-20-[address] Connor Kohli MD Work Phone: Start: 08-20-2024 Polymorphonuclear le ukocyte count Dr. Connor Kohli MD Work Phone: Start: 08-20-2024 End: 08-20-2024 Acid fast bacilli culture Dr. Connor macedo MD Work Phone: Start: 08-19-2024 Plain chest X-ray Dr. Nirmala Kohli MD Work Phone: Start: 08-19-2024 Fluoroscopic guidance Reynaldo Kohli MD Work Phone: Start: 08-13-[address] Krupa Kohli MD Work Phone: Comment on above: The atypical pANCA p attern has been observed in asignificant percentage of patients with ulcerative colitis,primary sclerosing cholangitis and autoimmune hepatitis. Start: 08-13-2024 Antibody to lupus La protein measurement Dr. Connor Kohli MD Work Phone: Comment on above: Previous reported re sult: TNP AIEdited by: MICHEAL on 08/14/24:1508 AMENDED REPORT 08/14/24 1508 Anti-SS-B previously reported as: Test not performed Start: 08-13-2024 Antibody to SS-A measurement Dr. Connor Kohli MD Work Phone: Comment on above: Previous reported re sult: TNP AIEdited by: MICHEAL on 08/14/24:1508 AMENDED REPORT 08/14/24 1508 Anti-SS-A previously reported as: Test not performed Start: 08-05-2024 CT of chest without contrast Dr. Connor Kohli MD Work Phone: Start: 07-17-2024 Measurement of renal function Dr. Connor Kohli MD Work Phone: Comment on above: GFR Calc Start: 05-29-2024 Cardiovascular stres s test using pharmacologic stress agent Dr. Connor Kohli MD Work Phone: Start: 05-22-2024 CT angiography of he ad and neck Dr. Connor Kohli MD Work Phone: Start: 05-22-2024 Plain chest X-ray Dr. Nirmala Kohli MD Work Phone: Start: 05-22-2024 SARS-CoV-2, Influenz a & RSV (PCR) Dr. Connor Kohli MD Work Phone: Start: 12-03-2022 X-ray of lumbosacral spine Dr. Connor Kohli Work Phone: Start: 08-06-[address] Connor Kohli Work Phone: Start: 07-25-2022 X-ray of lumbar spin e, two or three views Dr. Connor Kohli Work Phone: Start: 07-04-2022 MRI of lumbar spine Dr. Connor Kohli Work Phone: Start: 05-18-2022 CT of chest without contrast Dr. Connor Kohli Work Phone: Start: 02-15-2022 Cardiovascular stres s test using pharmacologic stress agent Dr. Connor Kohli Work Phone: Start: 01-29-2022 Plain chest X-ray Dr. Nirmala Kohli Work Phone: Start: 01-28-2017 End: 02-07-2017 Echocardiography Connor Acevedo MD Start: 01-28-2017 End: 01-28-2017 Follow Up Appt 6 months Connor Acevedo MD Start: 01-28-2017 End: 01-28-2017 MMM Connor Acevedo MD Start: 01-28-2017 End: 02-05-2017 Nuclear stress test -exercise Connor Acevedo MD Start: 10-23-2016 End: 10-23-2016 Follow Up Appt 1 year Art Plummer MD Start: 10-23-2016 End: 10-23-2016 MMM Art Plummer MD Start: 10-12-2016 End: 10-12-2016 *BMP Connor Acevedo MD Start: 10-12-2016 End: 10-12-2016 CBC W Auto Differential panel - Blood Connor Acevedo MD Start: 10-12-2016 End: 10-12-2016 Follow Up Appt 6 months Rylee Singh PA-C Work Phone: Start: 10-12-2016 End: 10-12-2016 Nurse, Teaching, Wound Check (no charge) Connor Acevedo MD Start: 10-12-2016 End: 10-12-2016 PFM Rylee Singh PA-C Work Phone: Start: 10-12-2016 End: 10-12-2016 *BMP Connor Acevedo MD Start: 10-12-2016 End: 02-05-2017 *CBC with Differential Rylee Singh PA-C Work Phone: Start: 10-12-2016 End: 10-12-2016 CBC W Auto Differential panel - Blood Connor Acevedo MD Start: 10-12-2016 End: 10-12-2016 Follow Up Appt 6 months Rylee Singh PA-C Work Phone: Start: 10-12-2016 End: 02-05-2017 Implantable Loop Recorder Connor kaufman MD Start: 10-12-2016 End: 10-12-2016 Nurse, Teaching, Wound Check (no charge) Connor Acevedo MD Start: 10-12-2016 End: 10-12-2016 PFM Rylee Singh PA-C Work Phone: Start: 09-24-2016 End: 10-05-2016 Follow Up Appt 1 month Connor Acevedo MD Start: 09-24-2016 End: 09-24-2016 Interrogation evaluation in person ilr system Connor Acevedo MD Start: 09-24-2016 End: 10-05-2016 Pacer Clinic Connor Acevedo MD Start: 09-24-2016 End: 10-05-2016 Follow Up Appt 1 month Connor Acevedo MD Start: 09-24-2016 End: 09-24-2016 Ilr device interrogate Connor Acevedo MD Start: 09-24-2016 End: 10-05-2016 Pacer Clinic Connor Acevedo MD Start: 04-17-2016 End: 10-05-2016 Follow Up Appt 6 months Rylee Singh PA-C Work Phone: Start: 04-17-2016 End: 04-17-2016 Interrogation evaluation in person ilr system Rylee Singh PA-C Work Phone: Start: 04-17-2016 End: 10-05-2016 Pacer Clinic Rylee Singh PA-C Work Phone: Start: 04-17-2016 End: 10-05-2016 Follow Up Appt 6 months Rylee Singh PA-C Work Phone: Start: 04-17-2016 End: 04-17-2016 Ilr device interrogate Rylee Singh PA-C Work Phone: Start: 04-17-2016 End: 10-05-2016 Pacer Clinic Rylee Singh PA-C Work Phone: Start: 04-10-2016 End: 04-10-2016 OVERHEAD CLEANER Rylee Singh PA-C Work Phone: Start: 04-10-2016 End: 04-10-2016 Device Interrogation Rylee Singh PA-C Work Phone: Start: 04-10-2016 End: 04-10-2016 Follow Up Appt 6 months Rylee Singh PA-C Work Phone: Start: 04-10-2016 End: 04-10-2016 Dietary management education, guidance, and counseling Rylee Kulkarni RN Start: 04-10-2016 End: 04-10-2016 OVERHEAD CLEANER Rylee Singh PA-C Work Phone: Start: 04-10-2016 End: 04-10-2016 Device Interrogation Rylee Singh PA-C Work Phone: Start: 04-10-2016 End: 04-10-2016 Follow Up Appt 6 months Rylee Singh PA-C Work Phone: Start: 10-03-2015 End: 10-03-2015 Ecg routine ecg w/least 12 lds w/i&r Connor Acevedo MD Start: 10-03-2015 End: 03-30-2016 Echocardiography Connor Acevedo MD Start: 10-03-2015 End: 03-30-2016 Follow Up Appt 3 months Connor Acevedo MD Start: 10-03-2015 End: 10-03-2015 Follow Up Appt 6 months Connor Acevedo MD Start: 10-03-2015 End: 10-03-2015 Interrogation evaluation in person ilr system Connro Acevedo MD Start: 10-03-2015 End: 10-03-2015 MMM Connor Acevedo MD Start: 10-03-2015 End: 03-30-2016 Pacer Clinic Connor Acevedo MD Start: 10-03-2015 End: 03-30-2016 Echocardiography Connor Acevedo MD Start: 10-03-2015 End: 10-03-2015 Electrocardiogram, complete Connor sheldon MD Start: 10-03-2015 End: 03-30-2016 Follow Up Appt 3 months Connor Acevedo MD Start: 10-03-2015 End: 10-03-2015 Follow Up Appt 6 months Connor Acevedo MD Start: 10-03-2015 End: 10-03-2015 Ilr device interrogate Connor Acevedo MD Start: 10-03-2015 End: 10-03-2015 MMM Connor Acevedo MD Start: 10-03-2015 End: 03-30-2016 Pacer Clinic Connor Acevedo MD Start: 06-07-2015 End: 03-30-2016 Follow Up Appt 3 months Rylee Singh PA-C Work Phone: Start: 06-07-2015 End: 06-07-2015 Interrogation evaluation in person ilr system Rylee Singh PA-C Work Phone: Start: 06-07-2015 End: 03-30-2016 Pacer Clinic Rylee Singh PA-C Work Phone: Start: 06-07-2015 End: 03-30-2016 Follow Up Appt 3 months Rylee Singh PA-C Work Phone: Start: 06-07-2015 End: 06-07-2015 Ilr device interrogate Rylee Singh PA-C Work Phone: Start: 06-07-2015 End: 03-30-2016 Pacer Clinic Rylee Singh PA-C Work Phone: Start: 03-25-2015 End: 03-25-2015 Ecg routine ecg w/least 12 lds w/i&r Rylee Singh PA-C Work Phone: Start: 03-25-2015 End: 03-25-2015 Electrocardiogram, complete Rylee Singh PA-C Work Phone: Start: 03-11-2015 End: 03-12-2015 Documentation of current medications Rylee Singh PA-C Work Phone: Start: 03-11-2015 End: 03-11-2015 Ecg routine ecg w/least 12 lds w/i&r Rylee Singh PA-C Work Phone: Start: 03-11-2015 End: 03-30-2016 Follow Up Appt 3 months Connor Acevedo MD Start: 03-11-2015 End: 03-11-2015 Follow Up Appt 6 months Rylee Singh PA-C Work Phone: Start: 03-11-2015 End: 03-11-2015 Interrogation evaluation in person ilr system Connor Acevedo MD Start: 03-11-2015 End: 03-30-2016 Pacer Clinic Connor Acevedo MD Start: 03-11-2015 End: 03-11-2015 PFM Rylee Singh PA-C Work Phone: Start: 03-11-2015 End: 03-12-2015 Documentation of current medications Rylee Singh PA-C Work Phone: Start: 03-11-2015 End: 03-11-2015 Electrocardiogram, complete Rylee Singh PA-C Work Phone: Start: 03-11-2015 End: 03-30-2016 Follow Up Appt 3 months Connor Acevedo MD Start: 03-11-2015 End: 03-11-2015 Follow Up Appt 6 months Rylee Singh PA-C Work Phone: Start: 03-11-2015 End: 03-11-2015 Ilr device interrogate Connor Acevedo MD Start: 03-11-2015 End: 03-30-2016 Pacer Clinic Connor Acevedo MD Start: 03-11-2015 End: 03-11-2015 PFM Rylee Singh PA-C Work Phone: Start: 01-06-2015 End: 03-02-2015 Follow Up Appt 3 months Rylee Singh PA-C Work Phone: Start: 01-06-2015 End: 2015 Interrogation evaluation in person ilr system Rylee Singh PA-C Work Phone: Start: 01-06-2015 End: 03-02-2015 Pacer Clinic Rylee Singh PA-C Work Phone: Start: 01-06-2015 End: 03-02-2015 Follow Up Appt 3 months Rylee Singh PA-C Work Phone: Start: 01-06-2015 End: 2015 Ilr device interrogate Rylee Singh PA-C Work Phone: Start: 01-06-2015 End: 03-02-2015 Pacer Clinic Rylee Singh PA-C Work Phone: Start: 09-08-2014 End: 09-09-2014 Documentation of current medications Connor Acevedo MD Start: 09-08-2014 End: 03-02-2015 Follow Up Appt 3 months Connor Acevedo MD Start: 09-08-2014 End: 03-02-2015 Follow Up Appt 6 months Connor Acevedo MD Start: 09-08-2014 End: 09-09-2014 Interrogation evaluation in person ilr system Connor Acevedo MD Start: 09-08-2014 End: 03-02-2015 MMM Connor Acevedo MD Start: 09-08-2014 End: 03-02-2015 Pacer Clinic Connor Acevedo MD Start: 09-08-2014 End: 09-09-2014 Documentation of current medications Connor Acevedo MD Start: 09-08-2014 End: 03-02-2015 Follow Up Appt 3 months Connor Acevedo MD Start: 09-08-2014 End: 03-02-2015 Follow Up Appt 6 months Connor Acevedo MD Start: 09-08-2014 End: 09-09-2014 Ilr device interrogate Connor Acevedo MD Start: 09-08-2014 End: 03-02-2015 MMM Connor Acevedo MD Start: 09-08-2014 End: 03-02-2015 Pacer Clinic Connor Acevedo MD Start: 08-04-2014 End: 03-02-2015 Device Interrogation Connor Acevedo MD Start: 08-04-2014 End: 03-02-2015 Device Interrogation Connor Acevedo MD Start: 05-05-2014 End: 03-02-2015 Follow Up Appt 3 months Connor Acevedo MD Start: 05-05-2014 End: 05-05-2014 Interrogation evaluation in person ilr system Connor Acevedo MD Start: 05-05-2014 End: 03-02-2015 Pacer Clinic Connor Acevedo MD Start: 05-05-2014 End: 03-02-2015 Follow Up Appt 3 months Connor Acevedo MD Start: 05-05-2014 End: 05-05-2014 Ilr device interrogate Connor Acevedo MD Start: 05-05-2014 End: 03-02-2015 Pacer Clinic Connor Acevedo MD Start: 02-22-2014 End: 02-22-2014 Follow Up Appt 6 months Rylee Singh PA-C Work Phone: Start: 02-22-2014 End: 02-22-2014 PFM Rylee Singh PA-C Work Phone: Start: 02-22-2014 End: 02-22-2014 Follow Up Appt 6 months Rylee Singh PA-C Work Phone: Start: 02-22-2014 End: 02-22-2014 PFM Rylee Singh PA-C Work Phone: Start: 01-14-2014 End: 02-02-2014 Follow Up Appt 3 months Rylee Singh PA-C Work Phone: Start: 01-14-2014 End: 01-14-2014 Interrogation evaluation in person ilr system Rylee Singh PA-C Work Phone: Start: 01-14-2014 End: 02-02-2014 Pacer Clinic Rylee Singh PA-C Work Phone: Start: 01-14-2014 End: 02-02-2014 Follow Up Appt 3 months Rylee Singh PA-C Work Phone: Start: 01-14-2014 End: 01-14-2014 Ilr device interrogate Rylee Singh PA-C Work Phone: Start: 01-14-2014 End: 02-02-2014 Pacer Clinic Rylee Singh PA-C Work Phone: Start: 10-14-2013 End: 02-02-2014 Follow Up Appt 3 months Rylee Singh PA-C Work Phone: Start: 10-14-2013 End: 10-14-2013 Interrogation evaluation in person ilr system Rylee Singh PA-C Work Phone: Start: 10-14-2013 End: 02-02-2014 Pacer Clinic Rylee Singh PA-C Work Phone: Start: 10-14-2013 End: 02-02-2014 Follow Up Appt 3 months Rylee Singh PA-C Work Phone: Start: 10-14-2013 End: 10-14-2013 Ilr device interrogate Rylee Singh PA-C Work Phone: Start: 10-14-2013 End: 02-02-2014 Pacer Clinic Rylee Singh PA-C Work Phone: Start: 08-21-2013 End: 08-21-2013 Arterial exam Connor Acevedo MD Start: 08-21-2013 End: 08-21-2013 Follow Up Appt 6 months Connor Acevedo MD Start: 08-21-2013 End: 08-21-2013 MMRosa Acevedo MD Start: 08-21-2013 End: 08-21-2013 Arterial exam Connor Acevedo MD Start: 08-21-2013 End: 08-21-2013 Follow Up Appt 6 months Connor Acevedo MD Start: 08-21-2013 End: 08-21-2013 MMM Connor Acevedo MD Start: 07-13-2013 End: 08-21-2013 Follow Up Appt 3 months Connor Acevedo MD Start: 07-13-2013 End: 07-13-2013 Interrogation evaluation in person ilr system Connor Acevedo MD Start: 07-13-2013 End: 08-21-2013 Pacer Clinic Connor Acevedo MD Start: 07-13-2013 End: 08-21-2013 Follow Up Appt 3 months Connor Acevedo MD Start: 07-13-2013 End: 07-13-2013 Ilr device interrogate Connor Acevedo MD Start: 07-13-2013 End: 08-21-2013 Pacer Clinic Connor Acevedo MD Start: 05-26-2013 End: 08-18-2013 Cardiac Rehab Rylee Singh PA-C Work Phone: Start: 05-26-2013 End: 02-02-2014 Cardiovascular stress test using treadmill Rylee Singh PA-C Work Phone: Start: 05-26-2013 End: 05-26-2013 Follow Up Appt 3 months Rylee Singh PA-C Work Phone: Start: 05-26-2013 End: 05-26-2013 PF Rylee Singh PA-C Work Phone: Start: 05-26-2013 End: 08-18-2013 Cardiac Rehab Rylee Singh PA-C Work Phone: Start: 05-26-2013 End: 02-02-2014 Cardiovascular stress test using treadmill Rylee Singh PA-C Work Phone: Start: 05-26-2013 End: 05-26-2013 Follow Up Appt 3 months Rylee Singh PA-C Work Phone: Start: 05-26-2013 End: 05-26-2013 PF Rylee Singh PA-C Work Phone: Start: 05-21-2013 Percutaneous translu tuan coronary angioplasty CORONARY ARTERY DISEASE, S/P PTCA Rylee Kulkarni RN Start: 05-21-2013 Placement of stent i n coronary artery Coronary stent Rylee Kulkarni RN Start: 05-04-2013 End: 05-04-2013 Nurse, Teaching, Wound Check (no charge) Connor Acevedo MD Start: 05-04-2013 End: 05-04-2013 Nurse, Teaching, Wound Check (no charge) Connor Acevedo MD Start: 04-30-2013 Lipid 1996 panel - S sintia or Plasma Christofer Moomaw PRIMARY EDUCATION PROFESSOR.TECHNICAL TESTING ENGINEER Work Phone: Start: 04-27-2013 End: 04-27-2013 Nurse, Teaching, Wound Check (no charge) Kaleb Story MD Work Phone: Start: 04-27-2013 End: 04-27-2013 Nurse, Teaching, Wound Check (no charge) Kaleb Story MD Work Phone: Start: 04-16-2013 End: 04-16-2013 aPTT in Platelet poor plasma by Coagulation assay Connor Acevedo MD Start: 04-16-2013 End: 05-19-2013 Cardiovascular function eval w/tilt table w/mntr Connor Acevedo MD Start: 04-16-2013 End: 04-16-2013 Ecg routine ecg w/least 12 lds w/i&r Connor Acevedo MD Start: 04-16-2013 End: 04-16-2013 Follow Up Appt 6 weeks Connor Acevedo MD Start: 04-16-2013 End: 04-16-2013 Follow Up Appt Other Connor Acevedo MD Start: 04-16-2013 End: 04-16-2013 INR in Platelet poor plasma by Coagulation assay Connor Acevedo MD Start: 04-16-2013 End: 05-19-2013 Left Heart Cath Connor Acevedo MD Start: 04-16-2013 End: 04-16-2013 MMM Connor Acevedo MD Start: 04-16-2013 End: 04-16-2013 aPTT Connor Acevedo MD Start: 04-16-2013 End: 04-16-2013 Coagulation factor induced.INR assay in platelet poor plasma Connor Acevedo MD Start: 04-16-2013 End: 04-16-2013 Electrocardiogram, complete Connor sheldon MD Start: 04-16-2013 End: 04-16-2013 Follow Up Appt 6 weeks Connor Acevedo MD Start: 04-16-2013 End: 04-16-2013 Follow Up Appt Other Connor Acevedo MD Start: 04-16-2013 End: 05-19-2013 Left Heart Cath Connor Acevedo MD Start: 04-16-2013 End: 04-16-2013 MMM Connor Acevedo MD Start: 04-16-2013 End: 05-19-2013 Tilt table evaluation Connor Jacobs Start: 03-24-2003 Lipid 1996 panel - S sintia or Plasma Allyson Medina Mycology culture Dr. Connor ventura Work Phone: Plan of Treatment Date Care Activity Detail Author Start: 2025 RSV VACCINE (1 - 1-dose 75+ series) RSV VACCINE (1 - 1-dose 75+ series) [facility] Start: 08-25-2024 End: 08-25-2024 Patient encounter procedure 08/25/2024 2:45 PM EDT Office Visit Neurology [facility] [address] [id number] Ericka Melissa MD [address] [phone] Neurology [facility] Start: 08-25-2024 Subsequent hospital visit by physician 08/25/2024 10:10 AM EDT Hospital Encounter Imaging Outpatient Care [facility] [address] [place] [address] Ericka Melissa MD [address] [phone] Imaging Outpatient Care [facility] Start: 08-25-2024 End: 08-25-2024 Patient encounter procedure 08/25/2024 9:50 AM EDT Appointment Imaging Outpatient Care [facility] [address] [place] [address] Ericka Melissa MD [address] [id number] Imaging Outpatient Care [facility] Start: 08-20-2024 Acid Fast Bacilli Culture Acid Fast Bacilli Culture [facility] Start: 08-20-2024 Acid Fast Bacilli Smear Acid Fast Bacilli Smear [facility] Start: 08-20-2024 Acid fast bacilli culture [facility] Start: 08-19-2024 [facility] Start: 08-19-2024 Brnchsc w/brncl alveolar lavage DX BRONCHOSCOPE/LAVAGE [facility] Start: 08-19-2024 Bronchoscopy w/transbronchial lung bx 1 lobe BRONCHOSCOPY/LUNG BX EACH [facility] [facility] Start[facility] 08-19-[facility]24 Patient discharge [facility] Start: 07-30-2024 Patient discharge [facility] Start: 07-29-2024 Following clinical pathway protocol [facility] Start: 07-29-2024 Application of intermittent pneumatic compression device [facility] Start: 07-29-2024 Measuring intake and output [facility] Start: 07-29-2024 Ambulation therapy management [facility] Start: 07-29-2024 Assessment of risk of venous thromboembolism [facility] Start: 07-29-2024 Deep breathing and coughing exercises [facility] Start: 07-29-2024 Documentation procedure [facility] Start: 07-29-2024 Following clinical pathway protocol [facility] Start: 07-29-2024 Incentive spirometry [facility] Start: 07-29-2024 Irrigation of urinary bladder [facility] Start: 07-29-2024 Provision of activity privileges [facility] Start: 07-29-2024 Taking patient vital signs [facility] Start: 07-29-2024 Vital signs measurements [facility] Start: 07-29-2024 End: 07-29-2024 [facility] Start: 07-29-2024 Admission procedure [facility] Start: 07-29-2024 Anesthesia transurethral resection of prostate ANESTH REMOVAL OF PROSTATE [facility] Start: 07-29-2024 Trurl electrosurg rescj prostate bleed complete PROSTATECTOMY (TURP) [facility] Start: 06-08-2024 End: 06-08-2024 Patient encounter procedure 06/08/2024 12:45 PM EST Appointment Neurodiagnostic Testing Outpatient Care [facility] [address] [place] [id number] Ericka Melissa MD [address] [address] Neurodiagnostic Testing Outpatient Care [facility] Start: 05-22-2024 End: 05-23-2024 [facility] Start: 05-12-2024 End: 05-12-2025 Electromyography EMG & NERVE CONDUCTION Neurology Routine Lumbar radiculopathy Expected: 05/12/2024, Expires: 05/12/2025 [facility] Comment on above: Expected: 05/12/2024, Expires: Start: 05-12-2024 End: 05-12-2025 MONOCLONAL PROT IMMUNO, SERUM [facility] Comment on above: Expected: 05/12/2024, Expires: Start: 05-12-2024 End: 05-12-2025 MR Lumbar spine WO contrast MRI SPINE LUMBAR WITHOUT CONTRAST Imaging Routine Lumbar radiculopathy Expected: 05/12/2024, Expires: 05/12/2025 [facility] Comment on above: Expected: 05/12/2024, Expires: Start: 05-12-2024 End: 05-12-2025 MRA Spine vessels MRI ANGIO SPINE Imaging Routine Lumbar radiculopathy Expected: 05/12/2024, Expires: 05/12/2025 [facility] Comment on above: Expected: 05/12/2024, Expires: Start: 02-16-2024 COVID-19 VACCINE ( season) COVID-19 VACCINE () [facility] Start: 02-16-2024 Covid-19 Vaccine ( season) Covid-19 Vaccine () [facility] Start: 02-16-2024 Influenza vaccination INFLUENZA VACCINE (#1) [facility] Start: 06-17-2023 Advance Directive Discussion Advance Directive Discussion [facility] Start: 12-03-2022 Stem and lambda light chains [facility] Start: 12-03-2022 Thiamine measurement [facility] Start: 11-30-2022 Patient referral [facility] Work Phone: Start: 01-01-2022 Procedure [facility] Work Phone: Start: 01-01-2022 [facility] Work Phone: Start: 10-26-2021 Fungal Culture Fungal Culture [facility] Work Phone: Start: 04-30-2018 Lipid panel Lipid Screening [facility] Start: 02-15-2018 Influenza vaccination INFLUENZA VACCINE (#1) [facility] Start: 10-22-2017 End: 10-22-2017 Appointment Appointment [facility] Work Phone: Start: 10-22-2017 End: 10-22-2017 Appointment Appointment [facility] Work Phone: Start: 09-18-2017 End: 09-18-2017 Appointment Appointment [facility] Work Phone: Start: 01-28-2017 End: 01-28-2017 Appointment Appointment [facility] Work Phone: Start: 01-28-2017 End: 01-28-2017 Appointment Appointment [facility] Work Phone: Start: 01-28-2017 End: 01-28-2017 Echocardiography Echocardiogram (complete) [facility] Work Phone: Start: 01-28-2017 End: 01-28-2017 Follow Up Appt 6 months Follow Up Appt 6 months [facility] Work Phone: Start: 01-28-2017 End: 01-28-2017 MMM MMM [facility] Work Phone: Start: 01-28-2017 End: 01-28-2017 Nuclear stress test -exercise Nuclear stress test -exercise [facility] Work Phone: Start: 10-23-2016 End: 10-23-2016 Appointment Appointment [facility] Work Phone: Start: 10-23-2016 End: 10-23-2016 Follow Up Appt 1 year Follow Up Appt 1 year [facility] Work Phone: Start: 10-23-2016 End: 10-23-2016 MMM MMM [facility] Work Phone: Start: 10-12-2016 End: 10-12-2016 *BMP *BMP [facility] Work Phone: Start: 10-12-2016 End: 10-12-2016 *CBC with Differential *CBC with Differential [facility] Work Phone: Start: 10-12-2016 End: 10-12-2016 CBC W Auto Differential panel - Blood *CBC without Diff [facility] Work Phone: Start: 10-12-2016 End: 10-12-2016 Follow Up Appt 6 months Follow Up Appt 6 months [facility] Work Phone: Start: 10-12-2016 End: 09-24-2016 Implantable Loop Recorder Implantable Loop Recorder [facility] Work Phone: Start: 10-12-2016 End: 10-12-2016 PFM PFM [facility] Work Phone: Start: 10-12-2016 End: 10-12-2016 Appointment Appointment [facility] Work Phone: Start: 10-12-2016 End: 10-12-2016 *BMP *BMP [facility] Work Phone: Start: 10-12-2016 End: 02-05-2017 *CBC with Differential *CBC with Differential [facility] Work Phone: Start: 10-12-2016 End: 10-12-2016 CBC W Auto Differential panel - Blood *CBC without Diff [facility] Work Phone: Start: 10-12-2016 End: 10-12-2016 Follow Up Appt 6 months Follow Up Appt 6 months [facility] Work Phone: Start: 10-12-2016 End: 02-05-2017 Implantable Loop Recorder Implantable Loop Recorder [facility] Work Phone: Start: 10-12-2016 End: 10-12-2016 PFM PFM [facility] Work Phone: Start: 09-24-2016 End: 10-05-2016 Follow Up Appt 1 month Follow Up Appt 1 month [facility] Work Phone: Start: 09-24-2016 End: 10-05-2016 Pacer Clinic Pacer Clinic [facility] Work Phone: Start: 09-24-2016 End: 10-05-2016 Follow Up Appt 1 month Follow Up Appt 1 month [facility] Work Phone: Start: 09-24-2016 End: 10-05-2016 Pacer Clinic Pacer Clinic [facility] Work Phone: Start: 05-01-2016 Diabetes Screening Diabetes Screening [facility] Start: 04-17-2016 End: 10-05-2016 Follow Up Appt 6 months Follow Up Appt 6 months [facility] Work Phone: Start: 04-17-2016 End: 10-05-2016 Pacer Clinic Pacer Clinic [facility] Work Phone: Start: 04-17-2016 End: 10-05-2016 Follow Up Appt 6 months Follow Up Appt 6 months [facility] Work Phone: Start: 04-17-2016 End: 10-05-2016 Pacer Clinic Pacer Clinic [facility] Work Phone: Start: 04-10-2016 End: 04-10-2016 OVERHEAD CLEANER OVERHEAD CLEANER [facility] Work Phone: Start: 04-10-2016 End: 04-10-2016 Device Interrogation Device Interrogation [facility] Work Phone: Start: 04-10-2016 End: 04-10-2016 Follow Up Appt 6 months Follow Up Appt 6 months [facility] Work Phone: Start: 04-10-2016 End: 04-10-2016 OVERHEAD CLEANER OVERHEAD CLEANER [facility] Work Phone: Start: 04-10-2016 End: 04-10-2016 Device Interrogation Device Interrogation [facility] Work Phone: Start: 04-10-2016 End: 04-10-2016 Follow Up Appt 6 months Follow Up Appt 6 months [facility] Work Phone: Start: 10-03-2015 End: 10-03-2015 Ecg routine ecg w/least 12 lds w/i&r EKG (In office) [facility] Work Phone: Start: 10-03-2015 End: 10-03-2015 Echocardiography Echocardiogram (complete) [facility] Work Phone: Start: 10-03-2015 End: 03-30-2016 Follow Up Appt 3 months Follow Up Appt 3 months [facility] Work Phone: Start: 10-03-2015 End: 10-03-2015 Follow Up Appt 6 months Follow Up Appt 6 months [facility] Work Phone: Start: 10-03-2015 End: 10-03-2015 MMM MMM [facility] Work Phone: Start: 10-03-2015 End: 03-30-2016 Pacer Clinic Pacer Clinic [facility] Work Phone: Start: 10-03-2015 End: 10-03-2015 Echocardiography Echocardiogram (complete) [facility] Work Phone: Start: 10-03-2015 End: 10-03-2015 Electrocardiogram, complete EKG (In office) [facility] Work Phone: Start: 10-03-2015 End: 03-30-2016 Follow Up Appt 3 months Follow Up Appt 3 months [facility] Work Phone: Start: 10-03-2015 End: 10-03-2015 Follow Up Appt 6 months Follow Up Appt 6 months [employer] Work Phone: Start: 10-03-2015 End: 10-03-2015 MMM MMM [facility] Work Phone: Start: 10-03-2015 End: 03-30-2016 Pacer Clinic Pacer Clinic [facility] Work Phone: Start: 06-07-2015 End: 03-30-2016 Follow Up Appt 3 months Follow Up Appt 3 months [employer] Work Phone: Start: 06-07-2015 End: 03-30-2016 Pacer Clinic Pacer Clinic [facility] Work Phone: Start: 06-07-2015 End: 03-30-2016 Follow Up Appt 3 months Follow Up Appt 3 months [employer] Work Phone: Start: 06-07-2015 End: 03-30-2016 Pacer Clinic Pacer Clinic [facility] Work Phone: Start: 03-25-2015 End: 03-25-2015 Ecg routine ecg w/least 12 lds w/i&r EKG (In office) [facility] Work Phone: Start: 03-25-2015 End: 03-25-2015 Electrocardiogram, complete EKG (In office) [facility] Work Phone: Start: 03-11-2015 End: 03-11-2015 Ecg routine ecg w/least 12 lds w/i&r EKG (In office) [facility] Work Phone: Start: 03-11-2015 End: 03-30-2016 Follow Up Appt 3 months Follow Up Appt 3 months [facility] Work Phone: Start: 03-11-2015 End: 03-11-2015 Follow Up Appt 6 months Follow Up Appt 6 months [facility] Work Phone: Start: 03-11-2015 End: 03-30-2016 Pacer Clinic Pacer Clinic [facility] Work Phone: Start: 03-11-2015 End: 03-11-2015 PFM PFM [facility] Work Phone: Start: 03-11-2015 End: 03-11-2015 Electrocardiogram, complete EKG (In office) [facility] Work Phone: Start: 03-11-2015 End: 03-30-2016 Follow Up Appt 3 months Follow Up Appt 3 months [facility] Work Phone: Start: 03-11-2015 End: 03-11-2015 Follow Up Appt 6 months Follow Up Appt 6 months [facility] Work Phone: Start: 03-11-2015 End: 03-30-2016 Pacer Clinic Pacer Clinic [facility] Work Phone: Start: 03-11-2015 End: 03-11-2015 PFM [facility] Work Phone: Start: 2015 Pneumococcal vaccination PNEUMOCOCCAL VACCINE SERIES (1 of 2 - PCV13) [facility] Start: 01-06-2015 End: 03-02-2015 Follow Up Appt 3 months Follow Up Appt 3 months [facility] Work Phone: Start: 01-06-2015 End: 03-02-2015 Pacer Clinic Pacer Clinic [facility] Work Phone: Start: 01-06-2015 End: 03-02-2015 Follow Up Appt 3 months Follow Up Appt 3 months [facility] Work Phone: Start: 01-06-2015 End: 03-02-2015 Pacer Clinic Pacer Clinic [facility] Work Phone: Start: 09-08-2014 End: 03-02-2015 Follow Up Appt 3 months Follow Up Appt 3 months [facility] Work Phone: Start: 09-08-2014 End: 03-02-2015 Follow Up Appt 6 months Follow Up Appt 6 months [facility] Work Phone: Start: 09-08-2014 End: 03-02-2015 MMM MMM [facility] Work Phone: Start: 09-08-2014 End: 03-02-2015 Pacer Clinic Pacer Clinic [facility] Work Phone: Start: 09-08-2014 End: 03-02-2015 Follow Up Appt 3 months Follow Up Appt 3 months [facility] Work Phone: Start: 09-08-2014 End: 03-02-2015 Follow Up Appt 6 months Follow Up Appt 6 months [facility] Work Phone: Start: 09-08-2014 End: 03-02-2015 MMM MMM [facility] Work Phone: Start: 09-08-2014 End: 03-02-2015 Pacer Clinic Pacer Clinic [facility] Work Phone: Start: 08-04-2014 End: 03-02-2015 Device Interrogation Device Interrogation [facility] Work Phone: Start: 08-04-2014 End: 03-02-2015 Device Interrogation Device Interrogation [facility] Work Phone: Start: 05-05-2014 End: 03-02-2015 Follow Up Appt 3 months Follow Up Appt 3 months [facility] Work Phone: Start: 05-05-2014 End: 03-02-2015 Pacer Clinic Pacer Clinic [facility] Work Phone: Start: 05-05-2014 End: 03-02-2015 Follow Up Appt 3 months Follow Up Appt 3 months [facility] Work Phone: Start: 05-05-2014 End: 03-02-2015 Pacer Clinic Pacer Clinic [facility] Work Phone: Start: 02-22-2014 End: 02-22-2014 Follow Up Appt 6 months Follow Up Appt 6 months [facility] Work Phone: Start: 02-22-2014 End: 02-22-2014 PFM PFM [facility] Work Phone: Start: 02-22-2014 End: 02-22-2014 Follow Up Appt 6 months Follow Up Appt 6 months [facility] Work Phone: Start: 02-22-2014 End: 02-22-2014 PFM PFM [facility] Work Phone: Start: 01-14-2014 End: 02-02-2014 Follow Up Appt 3 months Follow Up Appt 3 months [facility] Work Phone: Start: 01-14-2014 End: 02-02-2014 Pacer Clinic Pacer Clinic [facility] Work Phone: Start: 01-14-2014 End: 02-02-2014 Follow Up Appt 3 months Follow Up Appt 3 months [facility] Work Phone: Start: 01-14-2014 End: 02-02-2014 Pacer Clinic Pacer Clinic [facility] Work Phone: Start: 10-14-2013 End: 02-02-2014 Follow Up Appt 3 months Follow Up Appt 3 months [facility] Work Phone: Start: 10-14-2013 End: 02-02-2014 Pacer Clinic Pacer Clinic [facility] Work Phone: Start: 10-14-2013 End: 02-02-2014 Follow Up Appt 3 months Follow Up Appt 3 months [facility] Work Phone: Start: 10-14-2013 End: 02-02-2014 Pacer Clinic Pacer Clinic [facility] Work Phone: Start: 08-21-2013 End: 08-21-2013 Arterial exam Arterial exam [facility] Work Phone: Start: 08-21-2013 End: 08-21-2013 Follow Up Appt 6 months Follow Up Appt 6 months [facility] Work Phone: Start: 08-21-2013 End: 08-21-2013 MMM MMM [facility] Work Phone: Start: 08-21-2013 End: 08-21-2013 Arterial exam Arterial exam [facility] Work Phone: Start: 08-21-2013 End: 08-21-2013 Follow Up Appt 6 months Follow Up Appt 6 months [facility] Work Phone: Start: 08-21-2013 End: 08-21-2013 MMM MMM [facility] Work Phone: Start: 07-13-2013 End: 08-21-2013 Follow Up Appt 3 months Follow Up Appt 3 months [facility] Work Phone: Start: 07-13-2013 End: 08-21-2013 Pacer Clinic Pacer Clinic [facility] Work Phone: Start: 07-13-2013 End: 08-21-2013 Follow Up Appt 3 months Follow Up Appt 3 months [facility] Work Phone: Start: 07-13-2013 End: 08-21-2013 Pacer Clinic Pacer Clinic [facility] Work Phone: Start: 05-26-2013 End: 05-26-2013 Cardiac Rehab Cardiac Rehab [facility] Work Phone: Start: 05-26-2013 End: 05-26-2013 Cardiovascular stress test using treadmill Treadmill stress test (no imaging) [facility] Work Phone: Start: 05-26-2013 End: 05-26-2013 Follow Up Appt 3 months Follow Up Appt 3 months [employer] [facility] Work Phone: Start: 05-26-2013 End: 05-26-2013 PFM PFM [facility] Work Phone: Start: 05-26-2013 End: 05-26-2013 Cardiac Rehab Cardiac Rehab [facility] Work Phone: Start: 05-26-2013 End: 05-26-2013 Cardiovascular stress test using treadmill Treadmill stress test (no imaging) [facility] Work Phone: Start: 05-26-2013 End: 05-26-2013 Follow Up Appt 3 months Follow Up Appt 3 months [employer] [facility] Work Phone: Start: 05-26-2013 End: 05-26-2013 PFM PFM [facility] Work Phone: Start: 04-16-2013 End: 04-16-2013 aPTT *PTT-Partial Thromboplastin Time [facility] Work Phone: Start: 04-16-2013 End: 04-16-2013 Cardiovascular function eval w/tilt table w/mntr Tilt Table Test [facility] Work Phone: Start: 04-16-2013 End: 04-16-2013 Ecg routine ecg w/least 12 lds w/i&r EKG (In office) [facility] Work Phone: Start: 04-16-2013 End: 04-16-2013 Follow Up Appt 6 weeks Follow Up Appt 6 weeks [facility] Work Phone: Start: 04-16-2013 End: 04-16-2013 Follow Up Appt Other Follow Up Appt Other [facility] Work Phone: Start: 04-16-2013 End: 04-16-2013 INR Coag RelTime (PPP) *PT/INR [facility] Work Phone: Start: 04-16-2013 End: 04-16-2013 Left Heart Cath Left Heart Cath [facility] Work Phone: Start: 04-16-2013 End: 04-16-2013 MMM MMM [facility] Work Phone: Start: 04-16-2013 End: 04-16-2013 aPTT *PTT-Partial Thromboplastin Time [facility] Work Phone: Start: 04-16-2013 End: 04-16-2013 aPTT Coag time (PPP) *PTT-Partial Thromboplastin Time [facility] Work Phone: Start: 04-16-2013 End: 04-16-2013 Coagulation factor induced.INR assay in platelet poor plasma *PT/INR [facility] Work Phone: Start: 04-16-2013 End: 04-16-2013 Electrocardiogram, complete EKG (In office) [facility] Work Phone: Start: 04-16-2013 End: 04-16-2013 Follow Up Appt 6 weeks Follow Up Appt 6 weeks [facility] Work Phone: Start: 04-16-2013 End: 04-16-2013 Follow Up Appt Other Follow Up Appt Other [facility] Work Phone: Start: 04-16-2013 End: 04-16-2013 Left Heart Cath Left Heart Cath [facility] Work Phone: Start: 04-16-2013 End: 04-16-2013 MMM MMM [facility] Work Phone: Start: 04-16-2013 End: 04-16-2013 Tilt table evaluation Tilt Table Test [facility] Work Phone: Start: 2010 RSV VACCINE (1 - 1-dose 60+ series) RSV VACCINE (1 - 1-dose 60+ series) [facility] Start: 2010 RSV Vaccine (1 - Risk 60-74 years 1-dose series) RSV Vaccine (1 - Risk 60-74 years 1-dose series) [facility] Start: 03-24-2008 Fasting lipid profile LIPID SCREENING [facility] Start: 03-24-2008 Lipid panel LIPID SCREENING [facility] Start: 01-08-2000 Prostate specific antigen measurement PROSTATE CANCER SCREENING DISCUSSION [facility] Start: 01-08-2000 Protein mass conc COLON CANCER SCREENING DISCUSSION [facility] Start: 01-08-2000 Zoster vaccine hzv live for subcutaneous use ZOSTER (SHINGLES) VACCINE (1 of 2) [facility] Start: 1995 Screening for malignant neoplasm of colon [facility] Start: 1969 Shingrix Vaccine (1 of 2) Shingrix Vaccine (1 of 2) [facility] Start: 1969 Third diphtheria, tetanus and acellular pertussis (DTaP) vaccination TDAP (ADULT) [facility] Start: 1969 Urine microalbumin profile DTaP,Tdap,Td Vaccine (1 - Tdap) [facility] Start: 01-08-1968 Anxiety Screening Anxiety Screening [facility] Start: 01-08-1968 Depression Screening Depression Screening [facility] Start: 01-08-1968 Hepatitis C screening Hepatitis C Screening [facility] Start: 01-08-1968 Tetanus vaccination TETANUS [facility] Start: 1950 Tetanus vaccination TETANUS [facility] Start: 1950 Thyroid stimulating hormone measurement TSH [facility] Acid fast bacilli culture [facility] Angiotensin converti ng enzyme [Enzymatic activity/volume] in Serum or Plasma [facility] Work Phone: Antibody to lupus La protein measurement [facility] Work Phone: Antibody to SS-A measurement [facility] Work Phone: Cyclic citrullinated peptide IgG Ab [Units/volume] in Serum or Plasma [facility] Work Phone: DNA double strand Ab [Units/volume] in Serum [facility] Work Phone: Stem/lambda light c tiffany ratio [facility] Lambda light chains. free [Mass/volume] in Serum or Plasma [facility] End: 08-25-2024 MR Lumbar spine WO contrast [facility] Comment on above: 1 Occurrences starting 08/25/2024 until 08/25/2024 End: 05-20-2024 MRA Spine vessels [facility] Comment on above: 1 Occurrences starting 05/20/2024 until 05/20/2024 Mycobacterium sp identified in Unspecified specimen by Organism specific culture [facility] Neutrophil cytoplasm ic Ab.classic [Units/volume] in Serum [facility] Work Phone: NM Heart Views W str ess and W radionuclide IV [facility] Work Phone: Nuclear Ab [Presence ] in Serum [facility] Work Phone: P-ANCA measurement [facility] Work Phone: Patient Education [facility] Work Phone: Patient referral [facility] Work Phone: Procedure [facility] Work Phone: [id number] extractable nuclear Ab [Units/volume] in Serum by Immunoassay [facility] Work Phone: Smooth muscle Ab [Presence] in Serum [facility] Work Phone: Urine kappa light ch ain measurement [facility] US Heart [facility] Work Phone: [facility] Immunizations Immunization Date Immunization Notes Care Provider Angelica [email or web address] 02-27-2019 influenza virus vaccine, unspecified formulation Ericka Melissa MD Work Phone: [facility] Payers Date Payer Category Payer Self-pay [id number] 2015 Managed Care (unspecified) MEDICARE SUPPLEMENT [id number] 2015 Unknown [id number] 2015 Private Health Insurance HU[employer]NA HU[employer]NA MEDICARE SUPPLEMENT [id number] 2015-Present [phone] [address] [address] [place] [address] Indemnity [id number] 2015 Private Health Insurance [id number] 2014 Medicare [id number] 2014 Medicare [id number] 2012 Unknown MEDICAL MUTUAL M MO xxxxxxxxxxxx 2012-Present [id number] 1950 Unknown [id number] .1.155395.3.579.2 .594 1950 Unknown [id number] .1.653678.3.579.2 .594 1950 Unknown [id number] .1.388622.3.579.2 .594 1950 Unknown [id number] .1.801965.3.579.2 .594 1950 Unknown [id number] ..1.212671.3.579.2 .594 1950 Unknown [id number] .1.213641.3.579.2 .594 Unknown [id number] 2.16.840.1.164751.3.579.2 .462 Unknown [id number] 2.16.840.1.245811.3.579.2 .462 Unknown [id number] 2.16.840.1.369173.3.579.2 .462 Unknown [id number] 2.16.840.1.534789.3.579.2 .462 Unknown [id number] 2.16.840.1.197117.3.579.2 .462 Unknown [id number] 2.16.840.1.979333.3.579.2 .462 Unknown [id number] 2.840.1.509481.3.579.2 .462 Unknown [id number] 2.840.1.460439.3.579.2 .462 Unknown [id number] 2.840.1.366153.3.579.2 .462 Unknown [id number] 2.840.1.967503.3.579.2 .462 Unknown [id number] 2.840.1.471533.3.579.2 .462 Unknown [id number] 2.16840.1.950583.3.579.2 .462 Unknown [id number] 2.16840.1.907045.3.579.2 .462 Unknown [id number] 2.840.1.686729.3.579.2 .462 Unknown [id number] 2.16840.1.140714.3.579.2 .462 Unknown [id number] 2.16.840.1.374868.3.579.2 .462 Unknown [id number] 2.16.840.1.745793.3.579.2 .462 Unknown [id number] 2.16.840.1.604352.3.579.2 .462 Unknown [id number] 2.16840.1.607557.3.579.2 .462 Unknown [id number] 2.16840.1.940540.3.579.2 .462 Unknown [id number] 2.16840.1.352143.3.579.2 .462 Unknown [id number] 2.16.840.1.315176.3.579.2 .462 Unknown [id number] 2.16840.1.888059.3.579.2 .462 Unknown [id number] 2.16840.1.227483.3.579.2 .462 Unknown [id number] 2.16840.1.509812.3.579.2 .462 Unknown [id number] 2.840.1.879169.3.579.2 .462 Unknown [id number] 2.840.1.972004.3.579.2 .462 Social History Date Type Detail Facility Start: 05-12-2013 End: 08-14-2024 Tobacco smoking status WYIS Never smoker [facility] Start: 1950 Sex Assigned At Not on file [facility] Start: 04-28-2021 End: 09-19-2023 Tobacco smoking status [id number] [facility] if ever smoked [facility] Start: 12-28-2019 None [facility] Start: 12-28-2019 Spouse/ Signif icant Other [facility] Start: 12-28-2019 Non-smoker [facility] Start: 1950 Sex Assigned At Male [facility] Start: 07-02-2012 Tobacco use and exposure Smokeless tobacco non-user [facility] Start: 08-23-2008 End: 05-12-2024 Alcoholic beverage intake Current non-drinker of alcohol (finding) [facility] Start: 05-12-2024 End: 08-25-2024 History of Social function [facility] Start: 05-12-2024 End: 08-25-2024 Tobacco use panel [facility] Start: 08-25-2024 Alcoholic beverage intake Lifetime non-drinker (finding) [facility] Start: 07-20-2012 End: 09-05-2024 Sex Male (finding) [facility] Start: 08-24-2024 Gender identity Identifies as male gender (finding) [facility] Start: 08-24-2024 Sexual orientation Heterosexual (kim valadez) [facility] Medical Equipment Procedure Code Equipment Code Equipment Origin al Text Equipment Identifier Dates Implantable Card iac Monitor Dc - [id number] Start: 05-07-2013 Implantable Card iac Monitor Dc - [id number] Start: 05-07-2013 7.0 X 45mm Screw Start: 07-15-2012 7.0 X 45mm Screw Start: 07-15-2012 7.0 X 55mm Screw Start: 07-15-2012 7.0 X 55mm Screw Start: 07-15-2012 7.5 X 50mm Screw Start: 07-15-2012 7.5 X 50mm Screw Start: 07-15-2012 7.5 X 45mm Screw Start: 07-15-2012 7.5 X 45mm Screw Start: 07-15-2012 Set Screws Start: 07-15-2012 Set Screws Start: 07-15-2012 85mm Dhruv Start: 07-15-2012 85mm Dhruv Start: 07-15-2012 Implantable Card iac Monitor Dc - [id number] Start: 05-07-2013 7.0 X 45mm Screw [id number] Start: 07-15-2012 7.0 X 55mm Screw [id number] Start: 07-15-2012 7.5 X 50mm Screw [id number] Start: 07-15-2012 7.5 X 45mm Screw [id number] Start: 07-15-2012 Set Screws [id number] Start: 07-15-2012 85mm Dhruv [id number] Start: 07-15-2012 Goals Date Patient Goal Desired Activity /State Functional Status Date Assessment Result Facility 07-30-2024 Functional status Ambulates [facility] Work Phone: Mental Status Date Assessment Result Facility 08-19-2024 Cognitive function Voice/Name [facility] Work Phone: 07-30-2024 Cognitive function Level Of Cons ciousness Awake;Alert;Appropriate;Follow s Commands [facility] Work Phone: 07-29-2024 Cognitive function Voice/Name [facility] Work Phone: 05-24-2024 Cognitive function Level Of Cons ciousness Awake;Alert;Appropriate [facility] Work Phone: 05-22-2024 Cognitive function Voice/Name [facility] Work Phone: Clinical Notes 04-17-2013 to 09-01-2024 Ericka Melissa MD - 08/25/2024 2:45 PM EDTPatient InstructionsMoChristofer maurice APRN.TECHNICAL TESTING ENGINEER - 05/24/2024 1:46 PM Gabbie Melissa MD - 05/12/2024 1:45 PM ESTPatient Instructions Note Date & Type Note Facility 09-01-2024 Note Second opinion consu ltation requested by Dr. Dejah Brennan from [facility]. Patient is a 74 year old male be with increasing symptoms >1 year. Clinician considered hypersensitivity pneumonitis but CT ? UIPF classic. Patient has past exposure nos. He is SOB. Ground glass & reticular pattern. BAL with 77% lymphocytes. Patient on humira for psoriatic arthritis. Inflammatory panel negative. R/O drug-induced pneumonitis. Clinical diagnosis = pulmonary fibrosis [facility] Comment on above: Performed By: #### N ONGNNONFNA #### [facility] (DEFAULT) [address] [place] [address] 08-25-2024 History of Present illness Narrative Images from the original note were not included. [facility] Gracie Lemons 1950 SIRI: 08/25/2024 We had the pleasure of seeing Gracie Lemons at the [facility] here for follow-up of back and leg pain. HISTORY OF PRESENT ILLNESS: Gracie Lemons is a 74 y.o. gentleman who presents for follow-up of back and leg pain. He has been experiencing back and leg pain for the past 3 years, which has progressively worsened. His mobility is limited due to a lack of energy in his legs. He spells of weakness and pain in the BLE, which starts at the belt and radiate downwards. These episodes are unpredictable and can occur while walking or standing. He has undergone several tests including a stress test, echo, vascular study, nerve conduction test, and MRI of the L spine. The nerve conduction test revealed neuropathy. An orthopedic doctor did not identify any issues related to pinched nerves in his back. A neurologist conducted a lumbar spine x-ray, which showed no abnormalities. He has also had back fusions. He was prescribed B12 injections a year ago, but he is unsure if they have been beneficial. He has also tried therapy and gabapentin, but these did not provide relief. He has a history of stroke in 2002, which left him with weakness on his left side and a burning sensation. 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 This resulted in some numbness and tingling in his right leg. He has had multiple staph infections following surgery, which were treated with IV antibiotics. He also has foot drop in his left leg, which started after back surgery. He has noticed a decline in his balance compared to a few years ago. He has a hernia, but his family doctor has advised that it is not causing any issues. He is not currently undergoing physical therapy. He has had 2 L spine surgeries done here at [facility] INTERVAL HISTORY He was last seen on 05/12/2024 by myself. At that visit, recommended EMG and MR angiogram. He has not had any more spells in which he fell. He continues to feel tired. He sees a trimming operator who did a lung biopsy and he may have pulmonary fibrosis. He is exhausted frequently with any exertion. Previous Testing: (including EDX, imaging, biopsy, etc) Test Name Date Result B12, MMA 05/12/2024 Normal IFix 05/12/2024 N M protein A1c 07/17/24 7.7 MRI L spine 06/2022 Posterior decompressive laminectomies L3-L5. Degenerative endplate marrow edema at L2-3 with severe disc degeneration. Broad-based posterior disc osteophyte and facet arthropathy at L2-3 with mild central canal stenosis. No acute disc herniation is seen in the lumbar spine. Severe neuroforaminal stenosis left L2-3. Mild to moderate neuroforaminal stenosis throughout the remainder of the lumbar spine. EDx 04/2022 neuropathy EDx 05/2024 REVIEW OF SYSTEMS: Weight Loss/gain Diarrhea/Constipation Skin changes Vision loss Nausea Muscle ache/pain Double vision + Walking problems Muscle twitches Hearing loss Falls Loss of muscle mass Shortness of breath Difficulty chewing/swallowing Depressed mood Cannot lie flat Choking Behavior changes Cannot exercise Bladder/bowel incontinence Memory/thinking problems Fainting Cannot empty bladder Sleep problems Voice changes + Sensation changes Sexual function problems Headaches Heart palpitations Back pain positive if marked, remainder of 14 point ROS negative. PAST MEDICAL HISTORY, PAST SURGICAL HISTORY, ALLERGIES, MEDICATIONS, FAMILY HISTORY, SOCIAL HISTORY Past Medical History: has a past medical history of Anemia, BPH (benign prostatic hyperplasia), Brain abscess, CAD (coronary artery disease), Colon polyp, Diabetes mellitus, GERD (gastroesophageal reflux disease), High cholesterol, HTN (hypertension), Nephrolithiasis, RAFAEL (obstructive sleep apnea), Primary adrenal deficiency, Stroke, Stroke-like episode, Syncope, and Thalamic infarction. Past Surgical History: has a past surgical history that includes back surgery (1984); brain surgery (2002); hernia repair (2008); wisdom teeth extraction; complete extraction of teeth; laminectomy vertebral segment lumbar (07/15/2012); fusion posterior lumbar (07/15/2012); insertion spinal instrumentation posterior nonsegmental add-on px (07/15/2012); brain meningioma excision; and loop recorder implantation (05/07/2013). Medications: Current Outpatient Medications Medication Sig Adalimumab (HUMIRA) 10 MG/0.1ML Prefilled Syringe Kit Inject under the skin. clopidogrel (PLAVIX) 75 MG PO TABS Take 1 tablet by mouth at bedtime. Cyanocobalamin (B-12) 100 MCG tablet Take 1 tablet by mouth daily. ezetimibe (ZETIA) 10 MG PO TABS Take 1 tablet by mouth at bedtime. finasteride 5 MG Tab tablet Take 1 tablet by mouth daily. Gabapentin 300 MG capsule Take 1 capsule by mouth 3 (three) times a day. gliMEPIride 1 MG tablet Take 2 tablets by mouth 2 times daily. Levothyroxine 50 MCG tablet Take 1 tablet by mouth daily. lisinopril 20 MG Tab Take 1 tablet by mouth daily. metoprolol 25 MG PO tab regular release Take 1 tablet by mouth 2 times daily. (Patient taking differently: Take 1 tablet by mouth 2 times daily.) nortriptyline 25 MG PO CAPS Take 1 capsule by mouth at bedtime. oxybutynin 5 MG PO TABS Take 2 tablets by mouth at bedtime. pantoprazole [address] Take 1 tablet by mouth daily. rosuvastatin 10 MG Tab tablet Take 1 tablet by mouth daily. Synjardy XR 12.5-1000 MG Tab SR 24 HR Take 12.5-1,000 mg by mouth daily. Tamsulosin HCl 0.4 MG PO CAPS Take 2 capsules by mouth at bedtime. Trulicity 1.5 MG/0.5ML Solution Auto-injector injection Inject 0.5 mL as directed once a week. (Patient taking differently: Inject 3 mg as directed once a week.) Vitamin D3 2000 UNITS PO CAPS Take 2 capsules by mouth at bedtime. (Patient taking differently: Take 5,000 capsules by mouth at bedtime.) Social History: reports that he has never smoked. He has never used smokeless tobacco. He reports that he does not drink alcohol and does not use drugs. Family History: family history includes Cancer in his mother; Diabetes in his father; Heart Disease - Other in his father, mother, and sister; Heart Failure in his father; Hypertension in his mother and sister. PHYSICAL EXAM: BP 103/63 Comment: right arm Pulse 84 Temp 98.2 F (36.8 C) (Infrared) Ht 1.651 m (5' 5) Comment: verbal Wt 93.6 kg (206 lb 6.4 oz) BMI 34.35 kg/m Smoking Status Never GENERAL: Well developed, well nourished in no acute distress. HEENT: normocephalic, atraumatic, no oral lesions or tongue lacerations, mucous membranes are moist CV: No edema RESPIRATORY: Normal work of breathing on room air EXTREMITIES: Nontender, no ulcer. Warm, well perfused SKIN: No significant rashes. NECK: Supple. MENTAL STATUS Patient is awake, alert, and appropriately oriented. Attentive to examiner, cooperative with exam. Language is fluent. Fund of knowledge is normal. Memory is intact. Patient is able to give details of his own history. CRANIAL NERVES Pupils equal, round, and reactive to light. Extraocular movements without nystagmus. Facial sensation was intact and symmetric to light touch in V1-V3. Facial strength was full throughout. Tongue protruded midline with fast side-to side movements. Speech was clear. Shoulder shrug symmetric. MOTOR Bulk and tone are normal. Strength testing showed the following values by [facility] Right Left Shoulder abduction 5 5 Elbow extension 5 5 Elbow flexion 5 5 Wrist extension 5 5 First Dorsal Interosseous 5 5 Thumb abduction 5 5 Hip flexion 5 4 Knee flexion 5 5 Knee extension 5 5 Ankle dorsiflexion 5 4+ Ankle plantarflexion 5 5 Ankle inversion 5 5- Ankle eversion 5 4+ Toe Extensors 5 4- REFLEXES Right Left Biceps 2 2 Triceps 2 2 Brachioradialis Patellar 2 2 Achilles 0 0 Orantes Plantar Response SENSORY Pinprick: NT today Vibration: Vibration testing showed the following by the white scale on the [employer] tuning fork (out of 8): Right Left 2nd digit Knee Ankle 8 8 Great toe 6 6 Proprioception: NT today COORDINATION Finger to nose is intact without dysmetria or tremors. GAIT EXAMINATION Able to rise from a seated position without the use of arms. Gait is wide based, as his left hip gives way while walking. ASSESSMENT/PLAN This is a 74 y.o. male with episodes of BLE weakness. He is awaiting a repeat MRI L spine read. I reviewed today- it does not appear considerably different than prior. MRA without clear dAVF. Discussed my impression that this is likely related to his known disc disease but will follow-up the read RTC pending MRI read Thank you for asking me to participate in the care of this patient. If I can provide you with any additional information, please let me know. Ericka Melissa MD Envelope Addresser, Neurology Neuromuscular Division documented in this encounter [facility] 08-25-2024 Instructions Ericka Melissa MD - 08/25/2024 2:45 PM EDT You can stop the gabapentin. documented in this encounter [facility] 07-29-2024 Note [facility] Medical Records Department [address] [place] [address] History Physical Exam 07/29/24 1415 MR#: [id number] Acct: [id number] Name: GRACIE LEMONS Rep #: [id number] : 1950 74 From: Avinash Lombardi MD PCP: Dr. Connor Kohli MD Status:[facility] [place] [place] Location: [place] [address] HPI - General General Date of Service: 07/29/24 Chief Complaint: BPH with obstruction HPI Narrative GRACIE LEMONS, is a 74 M who presents for a transurethral section of the prostate for BPH with obstruction PFSH Medical History Facial cellulitis Loss of hearing Wears glasses Wears dentures Fungus infection Diabetes Thyroid disease Arthritis Bladder disease Prostate disease High cholesterol Back pain TIA (transient ischemic attack) Balance disorder Seizures Dietary restriction Gastric reflux CPAP (continuous positive airway pressure) dependence Shortness of breath on exertion History of pain when walking History of echocardiogram History of stress test Cardiology follow-up encounter History of orthostatic hypotension Hypotension Obesity Dyslipidemia History of atrial fibrillation Coronary artery disease Weakness Abnormality of gait and mobility Low back pain Left foot drop Polyneuropathy 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 Leg weakness, bilateral Chest pain Fatigue PALOMO (dyspnea on exertion) Sinus tachycardia COVID-19 Presence of stent in coronary artery ( 04/30/13) Pure hypercholesterolemia Essential hypertension Diabetes Claudication in peripheral vascular disease Left ventricular hypertrophy Paroxysmal atrial fibrillation Atherosclerotic heart disease of [place] coronary artery without angina pectoris Home Medications ???Medication ???Instructions ???Recorded ???Last Taken ???Type nortriptyline 25 mg capsule 25 mg PO QHS nerve pain 04/23/13 0 07/28/24 History pantoprazole 40 mg tablet,delayed 40 mg PO DAILY acid reflux 07/29/24 History release finasteride 5 mg tablet 5 mg PO QHS prostate 10/12/1607/18 History cholecalciferol (vitamin D3) 25 5,000 unit PO DAILY DEFICIENCY 07/28/24 History mcg (1,000 unit) capsule nitroglycerin 0.4 mg sublingual 0.4 mg sublingual Q5-15M PRN chest 10/26/20 Unknown Rx tablet pain #25 tabs oxybutynin chloride 10 mg 10 mg PO QPM 05/21/22 07/28/24 His tory tablet,extended release 24 hr Disability Placard #1 ea 11/29/22 Unknown Rx empagliflozin 12.5 mg-metformin ER 2 tab PO DAILY Diabetes 05/16/23 07/26/24 History 1,000 mg tablet,extended rel 24 hr (Synjardy XR) levothyroxine 50 mcg tablet 50 mcg PO DAILY 05/16/23 07/29/24 History Left AFO #1 ea 09/30/23 Unknown Rx glimepiride 2 mg tablet 2 mg PO QDAY 12/02/23 07/28/24 His tory tamsulosin 0.4 mg capsule 0.4 mg PO QHS 12/02/23 07/28/24 Hi story ezetimibe 10 mg tablet 10 mg PO QHS to lower cholesterol 12/30/23 07/28/24 Rx #90 tabs gabapentin 300 mg capsule 300 mg PO BID 01/30/24 07/29/24 Hi story clopidogrel 75 mg tablet 75 mg PO DAILY #90 tabs 03/19/24 0 07/19/24 Rx metoprolol tartrate 100 mg tablet 100 mg PO BID #180 TABLETS 07/29/24 Rx dulaglutide 3 mg/0.5 mL 3 mg subcut SA 05/24/24 07/18/24 H istory subcutaneous pen injector (Trulicity) rosuvastatin 10 mg tablet 10 mg PO QHS 05/24/24 07/28/24 His tory lisinopril 20 mg tablet 20 mg PO QHS 07/15/24 07/28/24 His tory Allergy/AdvReac Type Severity Reaction Status Date / Time acetaminophen (From Tylenol) Allergy Severe Anaphylaxis Verified 07/29/24 12:51 Penicillins Allergy Severe Other Verified 07/29/24 12:51 hydromorphone HCl (From AdvReac Severe Other Verified 07/29/24 12:51 Dilaudid) Family History Mother CAD (coronary artery disease) Sister CAD (coronary artery disease) Father Heart disease Surgical History History of esophagogastroduodenoscopy (EGD) Hx of colonoscopy History of umbilical hernia repair History of lumbar fusion Hx of right cataract extraction Hx of left cataract extraction History of lumbosacral spine surgery Presence of coronary angioplasty implant and graft ( 04/30/13) History of resection of meningioma Social History Smoking Status: Never smoker alcohol intake: never substance use type: does not use caffeine: Yes Type: carbonated beverages Number of servings: 1 what type of physical activity do you participate in: none Vital Signs Vital Signs Vital Signs: 07/29/24 13:04 07/29/24 13:04 Temperature 98.7 F Temperature Source Temporal Pulse Ra (more content not included)... [facility] 05-24-2024 Note HNO ID: [id number] Author: CHRISTOFER ALSTON APRN.TECHNICAL TESTING ENGINEER Service: ? Author Type: Nurse Practitioner Type: Progress Notes Filed: 05/24/2024 13:59 Note Text: This note was created using [employer]. Subjective Gracie Lemons is a 74 year old male. HPI Several days ago pt noticed some pain and swelling to the left nares. Since then the pain and swelling has migrated to the left side of his nose and right cheek. Review of Systems Constitutional: Negative for fever. Skin: Positive for color change. Objective BP 118/66 Pulse 80 Temp 36.6 ?C (97.8 ?F) Resp 16 Wt 98.3 kg (216 lb 11.4 oz) SpO2 95% Physical Exam Vitals and nursing note reviewed. Constitutional: General: He is not in acute distress. Appearance: Normal appearance. He is not ill-appearing. HENT: Head: Normocephalic. Comments: Erythematous and swollen area to the nose and right side of face extending to just below the right eye. Mouth/Throat: Mouth: Mucous membranes are moist. Eyes: Conjunctiva/sclera: Conjunctivae normal. Cardiovascular: Rate and Rhythm: Normal rate and regular rhythm. Pulmonary: Effort: Pulmonary effort is normal. Breath sounds: Normal breath sounds. Musculoskeletal: General: Normal range of motion. Cervical back: Normal range of motion. Skin: General: Skin is warm and dry. Neurological: General: No focal deficit present. Mental Status: He is alert. Psychiatric: Mood and Affect: Mood normal. Behavior: Behavior normal. Assessment and Plan ASSESSMENT/PLAN: 1. Facial cellulitis - ICD9: 682.0, ICD10: L03.211 Patient does have a large amount of swelling and erythema to the right cheek and nose. I discussed with family I was concerned about periorbital cellulitis versus abscess versus simple cellulitis. I discussed with them that I felt that patient needed higher level of evaluation and recommended going to the nearest emergency department for evaluation. After discussion patient was agreeable to go to [place] emergency department for evaluation. Christofer Alston APRN.YVETTE [facility] 05-24-2024 History of Present illness Narrative Images from the original note were not included. This note was created using [employer]. Subjective Gracie Lemons is a 74 year old male. HPI Several days ago pt noticed some pain and swelling to the left nares. Since then the pain and swelling has migrated to the left side of his nose and right cheek. Review of Systems Constitutional: Negative for fever. Skin: Positive for color change. Objective BP 118/66 Pulse 80 Temp 36.6 C (97.8 F) Resp 16 Wt 98.3 kg (216 lb 11.4 oz) SpO2 95% Physical Exam Vitals and nursing note reviewed. Constitutional: General: He is not in acute distress. Appearance: Normal appearance. He is not ill-appearing. HENT: Head: Normocephalic. Comments: Erythematous and swollen area to the nose and right side of face extending to just below the right eye. Mouth/Throat: Mouth: Mucous membranes are moist. Eyes: Conjunctiva/sclera: Conjunctivae normal. Cardiovascular: Rate and Rhythm: Normal rate and regular rhythm. Pulmonary: Effort: Pulmonary effort is normal. Breath sounds: Normal breath sounds. Musculoskeletal: General: Normal range of motion. Cervical back: Normal range of motion. Skin: General: Skin is warm and dry. Neurological: General: No focal deficit present. Mental Status: He is alert. Psychiatric: Mood and Affect: Mood normal. Behavior: Behavior normal. Assessment and Plan ASSESSMENT/PLAN: 1. Facial cellulitis - ICD9: 682.0, ICD10: L03.211 Patient does have a large amount of swelling and erythema to the right cheek and nose. I discussed with family I was concerned about periorbital cellulitis versus abscess versus simple cellulitis. I discussed with them that I felt that patient needed higher level of evaluation and recommended going to the nearest emergency department for evaluation. After discussion patient was agreeable to go to [place] emergency department for evaluation. Christofer Alston APRN.CNP documented in this encounter [facility] 05-12-2024 History of Present illness Narrative [facility] Gracie Lemons 1950 SIRI: 05/12/2024 We had the pleasure of seeing Gracie Lemons at the [facility] for in consultation for neuropathy. HISTORY OF PRESENT ILLNESS: Gracie Lemons is a 74 y.o. gentleman who presents for evaluation of back and leg pain. He is accompanied by his . He has been experiencing back and leg pain for the past 3 years, which has progressively worsened. His mobility is limited due to a lack of energy in his legs. He spells of weakness and pain in the BLE, which starts at the belt and radiate downwards. These episodes are unpredictable and can occur while walking or standing. He has undergone several tests including a stress test, echo, vascular study, nerve conduction test, and MRI of the L spine. The nerve conduction test revealed neuropathy. An orthopedic doctor did not identify any issues related to pinched nerves in his back. A neurologist conducted a lumbar spine x-ray, which showed no abnormalities. He has also had back fusions. He was prescribed B12 injections a year ago, but he is unsure if they have been beneficial. He has also tried therapy and gabapentin, but these did not provide relief. He has a history of stroke in 2002, which left him with weakness on his left side and a burning sensation. 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 This resulted in some numbness and tingling in his right leg. He has had multiple staph infections following surgery, which were treated with IV antibiotics. He also has foot drop in his left leg, which started after back surgery. He has noticed a decline in his balance compared to a few years ago. He has a hernia, but his family doctor has advised that it is not causing any issues. He is not currently undergoing physical therapy. He has had 2 L spine surgeries done here at [facility] Previous Testing: (including EDX, imaging, biopsy, etc) Test Name Date Result MRI L spine 06/2022 Posterior decompressive laminectomies L3-L5. Degenerative endplate marrow edema at L2-3 with severe disc degeneration. Broad-based posterior disc osteophyte and facet arthropathy at L2-3 with mild central canal stenosis. No acute disc herniation is seen in the lumbar spine. Severe neuroforaminal stenosis left L2-3. Mild to moderate neuroforaminal stenosis throughout the remainder of the lumbar spine. EDx 04/2022 neuropathy REVIEW OF SYSTEMS: Weight Loss/gain Diarrhea/Constipation Skin changes Vision loss Nausea Muscle ache/pain Double vision + Walking problems Muscle twitches Hearing loss Falls Loss of muscle mass Shortness of breath Difficulty chewing/swallowing Depressed mood Cannot lie flat Choking Behavior changes Cannot exercise Bladder/bowel incontinence Memory/thinking problems Fainting Cannot empty bladder Sleep problems Voice changes + Sensation changes Sexual function problems Headaches Heart palpitations Back pain positive if marked, remainder of 14 point ROS negative. PAST MEDICAL HISTORY, PAST SURGICAL HISTORY, ALLERGIES, MEDICATIONS, FAMILY HISTORY, SOCIAL HISTORY Past Medical History: has a past medical history of Anemia, BPH (benign prostatic hyperplasia), Brain abscess, CAD (coronary artery disease), Colon polyp, Diabetes mellitus, GERD (gastroesophageal reflux disease), High cholesterol, HTN (hypertension), Nephrolithiasis, RAFAEL (obstructive sleep apnea), Primary adrenal deficiency, Stroke, Stroke-like episode, Syncope, and Thalamic infarction. Past Surgical History: has a past surgical history that includes back surgery (1984); brain surgery (2002); hernia repair (2008); wisdom teeth extraction; complete extraction of teeth; laminectomy vertebral segment lumbar (07/15/2012); fusion posterior lumbar (07/15/2012); insertion spinal instrumentation posterior nonsegmental add-on px (07/15/2012); brain meningioma excision; and loop recorder implantation (05/07/2013). Medications: Current Outpatient Medications Medication Sig Adalimumab (HUMIRA) 10 MG/0.1ML Prefilled Syringe Kit Inject under the skin. clopidogrel (PLAVIX) 75 MG PO TABS Take 1 tablet by mouth at bedtime. Empagliflozin (JARDIANCE) 10 MG Tab tablet Take by mouth. ezetimibe (ZETIA) 10 MG PO TABS Take 1 tablet by mouth at bedtime. finasteride 5 MG Tab tablet Take 1 tablet by mouth daily. Gabapentin 300 MG capsule Take 1 capsule by mouth 3 (three) times a day. gliMEPIride 1 MG tablet Take 2 tablets by mouth 2 times daily. Levothyroxine 50 MCG tablet Take 1 tablet by mouth daily. lisinopril 20 MG Tab Take 1 tablet by mouth daily. metoprolol 25 MG PO tab regular release Take 1 tablet by mouth 2 times daily. nortriptyline 25 MG PO CAPS Take 1 capsule by mouth at bedtime. oxybutynin 5 MG PO TABS Take 2 tablets by mouth at bedtime. pantoprazole [address] Take 1 tablet by mouth daily. rosuvastatin 10 MG Tab tablet Take 1 tablet by mouth daily. Synjardy XR 12.5-1000 MG Tab SR 24 HR Take 12.5-1,000 mg by mouth daily. Tamsulosin HCl 0.4 MG PO CAPS Take 2 capsules by mouth at bedtime. Testosterone Cypionate 100 MG/ML IM OIL by Intramuscular route every 14 days. Trulicity 1.5 MG/0.5ML Solution Auto-injector injection Inject 0.5 mL as directed once a week. Vitamin D3 2000 UNITS PO CAPS Take 2 capsules by mouth at bedtime. Social History: reports that he has never smoked. He has never used smokeless tobacco. He reports that he does not drink alcohol and does not use drugs. Family History: family history includes Cancer in his mother; Heart Disease - Other in his father, mother, and sister; Heart Failure in his father. PHYSICAL EXAM: BP 123/69 (BP Location: Right arm, BP Position: Sitting) Pulse 72 Temp 98 F (36.7 C) (Infrared) Ht 1.651 m (5' 5) Comment: verbal Wt 98.7 kg (217 lb 9.6 oz) BMI 36.21 kg/m Smoking Status Never GENERAL: Well developed, well nourished in no acute distress. HEENT: normocephalic, atraumatic, no oral lesions or tongue lacerations, mucous membranes are moist CV: No edema RESPIRATORY: Normal work of breathing on room air EXTREMITIES: Nontender, no ulcer. Warm, well perfused SKIN: No significant rashes. NECK: Supple. MENTAL STATUS Patient is awake, alert, and appropriately oriented. Attentive to examiner, cooperative with exam. Language is fluent. Fund of knowledge is normal. Memory is intact. Patient is able to give details of his own history. CRANIAL NERVES Pupils equal, round, and reactive to light. Extraocular movements without nystagmus. Facial sensation was intact and symmetric to light touch in V1-V3. Facial strength was full throughout. Tongue protruded midline with fast side-to side movements. Speech was clear. Shoulder shrug symmetric. MOTOR Bulk and tone are normal. Strength testing showed the following values by [facility] Right Left Shoulder abduction 5 5 Elbow extension 5 5 Elbow flexion 5 5 Wrist extension 5 5 First Dorsal Interosseous 5 5 Thumb abduction 5 5 Hip flexion 5 4 Knee flexion 5 5 Knee extension 5 5 Ankle dorsiflexion 5 4+ Ankle plantarflexion 5 5 Ankle inversion 5 5- Ankle eversion 5 4+ Toe Extensors 5 4- REFLEXES Right Left Biceps 2 2 Triceps 2 2 Brachioradialis Patellar 2 2 Achilles 0 0 Orantes Plantar Response SENSORY Pinprick: gradient to ankles Vibration: Vibration testing showed the following by the white scale on the [employer] tuning fork (out of 8): Right Left 2nd digit 8 8 Knee 8 8 Ankle 6 6 Great toe 4 4 Proprioception: Intact at the great toes bilaterally COORDINATION Finger to nose is intact without dysmetria or tremors. GAIT EXAMINATION Able to rise from a seated position without the use of arms. Gait is wide based, as his left hip gives way while walking. ASSESSMENT/PLAN This is a 74 y.o. male with progressive back and leg pain over the past three years, with episodes of leg weakness and paralysis. He has a reported history of neuropathy, though this would not explain the episodic nature of his symptoms. There seems to be a dynamic issue, such as neurogenic claudication. Another possibility could be a dural AVF- will obtain an MRI L spine with angiography to include the T/L spine. Will also obtain an EMG to further assess contributions from the neuropathy vs radiculopathy. Will obtain neuropathy labs as well. Recommended PT. For his B12 deficiency, advised that if he is having difficulty obtaining B12 injections, he can take chewable B12. Recommendations/plan: Orders Placed This Encounter MRI ANGIO SPINE MRI SPINE LUMBAR WITHOUT CONTRAST VITAMIN B12 METHYLMALONIC ACID MONOCLONAL PROT IMMUNO, SERUM AMB REFERRAL TO PHYSICAL THERAPY EMG & NERVE CONDUCTION RTC 4 mo with me I have spent 51 minutes in pre-visit records review and preparation, face to face time with the patient and post visit chart documentation. Thank you for asking me to participate in the care of this patient. If I can provide you with any additional information, please let me know. Ericka Melissa MD Envelope Addresser, Neurology Neuromuscular Division documented in this encounter [facility] 05-12-2024 Instructions Ericka Melissa MD - 05/12/2024 1:45 PM EST We will get nerve and muscle testing We will get a picture of your lower back We will get labs today- first floor documented in this encounter [facility] 05-05-2024 Evaluation note Diagnosis Onset Date Resolution Coronary artery disease chronic May 05, 2024 2:12pm Diabetes chronic May 05, 2024 2:12pm 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 chronic May 05, 2024 2:12pm Dyslipidemia chronic April 2:12pm Essential hypertension chronic May 05, 2024 2:12pm Obesity chronic May 05, 2024 2:12pm Presence of stent in coronary artery April, chronic May 05, 2024 2:12pm Fatigue chronic May 07, 2024 7:44am [facility] Work Phone: 1(591) 172-981611-01-2013 Evaluation note* Diagnosis Onset Date Resolution Status Sinus tachycardia acute Essential hypertension chron ic Paroxysmal atrial fibrillation chronic Presence of stent in coronary artery April, chronic Pure hypercholesterolemia [facility] Work Phone: 1([phone]) 642-583811-01-2013 Evaluation note* Diagnosis Onset Date Resolution Status Sinus tachycardia acute Essential hypertension chron ic Paroxysmal atrial fibrillation chronic Presence of stent in coronary artery April, chronic Pure hypercholesterolemia [facility] Chest pain acute PALOMO (dyspnea on exertion) ac [place] Fatigue acute Atherosclerotic heart diseas e [place] coronary artery without angina pectoris chronic Essential hypertension chron ic Paroxysmal atrial fibrillation chronic Presence of stent in coronary artery April, chronic Pure hypercholesterolemia [facility] Work Phone: 1([phone] 298-918511-01-2013 Evaluation note* Diagnosis Onset Date Resolution Status Atherosclerotic heart diseas e [place] coronary artery without angina pectoris chronic Essential hypertension chron ic Paroxysmal atrial fibrillation chronic Presence of stent in coronary artery April, chronic Pure hypercholesterolemia ch [facility] Work Phone: 1([phone] 380-661211-01-2013 Evaluation note* Diagnosis Onset Date Resolution Status Atherosclerotic heart diseas e [place] coronary artery without angina pectoris chronic Essential hypertension chron ic Paroxysmal atrial fibrillation chronic Presence of stent in coronary artery April, chronic Pure hypercholesterolemia ch ronic Diabetic autonomic neuropath y associated with secondary diabetes mellitus acute [facility] Work Phone: Evaluation noteNo assessment information available [facility] Work Phone: Evaluation note* Diagnosis Onset Date Resolution Status Chest pain acute Atherosclerotic heart diseas e [place] coronary artery without angina pectoris chronic PALOMO (dyspnea on exertion) ch ronic Essential hypertension chron ic Fatigue chronic Paroxysmal atrial fibrillation chronic Presence of stent in coronary artery April, chronic Pure hypercholesterolemia ch ronic Atherosclerotic heart diseas e [place] coronary artery without angina pectoris chronic PALOMO (dyspnea on exertion) ch ronic Essential hypertension chron ic Fatigue chronic Paroxysmal atrial fibrillation chronic Presence of stent in coronary artery April, chronic Pure hypercholesterolemia ch [facility] Work Phone: Evaluation note* Diagnosis Onset Date Resolution Status Chest pain acute Atherosclerotic heart diseas e [place] coronary artery without angina pectoris chronic PALOMO (dyspnea on exertion) ch ronic Essential hypertension chron ic Fatigue chronic Paroxysmal atrial fibrillation chronic Presence of stent in coronary artery April, chronic Pure hypercholesterolemia ch ronic Atherosclerotic heart diseas e of [place] coronary artery without angina pectoris chronic PALOMO (dyspnea on exertion) ch ronic Essential hypertension chron ic Fatigue chronic Paroxysmal atrial fibrillation chronic Presence of stent in coronary artery April, chronic Pure hypercholesterolemia ch ronic Atherosclerotic heart diseas e of [place] coronary artery without angina pectoris chronic Essential hypertension chron ic Paroxysmal atrial fibrillation chronic Presence of stent in coronary artery April, chronic [facility] Work Phone: Evaluation note* Diagnosis Onset Date Resolution Status Diabetic autonomic neuropath y associated with secondary diabetes mellitus acute [facility] Work Phone: Evaluation note* Diagnosis Onset Date Resolution Status Atherosclerotic heart diseas e [place] coronary artery without angina pectoris chronic PALOMO (dyspnea on exertion) ch ronic Essential hypertension chron ic Fatigue chronic Paroxysmal atrial fibrillation chronic Pure hypercholesterolemia ch ronic Polyneuropathy acute Abnormality of gait and mobility chronic Left foot drop chronic Low back pain chronic [facility] Work Phone: Evaluation note* Diagnosis Onset Date Resolution Status Abnormality of gait and mobility chronic Fatigue chronic Left foot drop chronic Polyneuropathy chronic [facility] Work Phone: Evaluation note* Diagnosis Onset Date Resolution Status Abnormality of gait and mobility chronic Fatigue chronic Left foot drop chronic Polyneuropathy chronic Fatigue 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 Work Phone: Evaluation note* Diagnosis Onset Date Resolution Status Fatigue chronic Fatigue chronic Fatigue [facility] Work Phone: Evaluation note* Diagnosis Onset Date Resolution Status Fatigue chronic Fatigue chronic Fatigue chronic Fatigue [facility] Work Phone: Evaluation note* Diagnosis Lumbar radiculopathy- Primary Thoracic or lumbosacral neuritis or radiculitis, unspecified Type 2 diabetes mellitus with diabetic neuropathy, without long-term current use of insulin [facility] Diagnosis Facial cellulitis- Primary Cellulitis and abscess of face [facility] Lumbar radiculopathy Thoracic or lumbosacral neuritis or radiculitis, unspecified Lumbar radiculopathy Thoracic or lumbosacral neuritis or radiculitis, unspecified [facility] Diagnosis Lumbar radiculopathy- Primary Thoracic or lumbosacral neuritis or radiculitis, unspecified [facility] Diagnosis Lumbar radiculopathy Thoracic or lumbosacral neuritis or radiculitis, unspecified [facility] Diagnosis Lumbar radiculopathy Thoracic or lumbosacral neuritis or radiculitis, unspecified [facility] (narrative)No reason for referral information [facility]WMercy [facility] Work Phone: Reason for visit Narrative* MRI/CAT Scan (Routine) - New Request Specialty Diagnoses / Procedures Referred By Contac t Referred To Contact Diagnoses Lumbar radiculopathy Procedures MRI ANGIO SPINE [place] MRA, W/O&W/DYE, SPINAL CANAL Ericka Melissa MD [address] [address] Phone: tel: fax: Referral ID Status Reason Start Date Expiration Date V isits Requested Visits Authorized [id number] New Request 05/12/2024 06/06/2025 [facility] MRI/CAT Scan (Routine) - New Request Specialty Diagnoses / Procedures Referred By Contac t Referred To Contact Diagnoses Lumbar radiculopathy Procedures MRI SPINE LUMBAR WITHOUT CONTRAST CHG MRI SPINAL CANAL LUMBAR W/O CONTRAST MATERIAL Ericka Melissa MD [address] [address] Phone: tel: fax: Referral ID Status Reason Start Date Expiration Date V isits Requested Visits Authorized [id number] New Request 05/12/2024 06/06/2025 1 1 [facility] Advance Directives No Advanced Directives Records FoundLatest Code Status on File Code Status Date Activated Date Inactivated Comments Full Code 07/15/2012 8:52 PM 07/20/2012 4:19 PM Advance Directive Response Recorded Date/ Time Living Will Yes December 28, 2019 8:54pm Power of [place] Ere[employer] Helper Yes December 27 8:54pm Advance Directive Response Recorded Date/ Time Living Will Yes December 28, 2019 7:54pm Power of [place] Ere[employer] Helper Yes December 27 7:54pm Date Activated Date Inactivated Comments 07/15/2012 8:52 PM 07/20/2012 4:19 PM Date Activated Date Inactivated Comments 07/15/2012 8:52 PM 07/20/2012 4:19 PM Advance Directive Response Recorded Date/ Time Living Will Yes December 28, 2019 8:54pm Power of [place] [employer] Helper Yes December 27 8:54pm Living Will Yes May 22 10:12pm Power of [place] Ere[employer] Helper Yes May 22, 2024 10:12pm Name of Medical Power of [place] [employer] Hel[employer] May 22, 2024 10:12pm Living Will No May 24 3:17pm Power of [place] Ere[employer] Helper No May 24, 2024 3:17pm Living Will Yes July 29 6:07pm Power of [place] Ere[employer] Helper Yes July 29, 2024 6:07pm Name of Medical Power of [place] [employer] Helper July 29, 2024 6:07pm Living Will Yes August 14 11:42am Power of [place] [employer]re[employer] Helper Yes August 14, 2024 11:42am Name of Medical Power of [place] [employer] Helper DEVANG Lemons August 14, 2024 11:42am Advance Directive Response Recorded Date/ Time Living Will Yes May 22 10:12pm Do you have a Healthcare Pow er of [place] Ere[employer] Helper? Yes May 22, 2024 10:12pm Name of Medical Power of [place] [employer] Hel[employer] May 22, 2024 10:12pm Living Will No May 24 3:17pm Do you have a Healthcare Pow er of [place] Erector Helper? No May 24, 2024 3:17pm Living Will Yes July 29 6:07pm Do you have a Healthcare Pow er of [place] Erector Helper? Yes July 29, 2024 6:07pm Name of Medical Power of [place] [employer] Helper July 29, 2024 6:07pm Living Will Yes August 14 11:42am Do you have a Healthcare Pow er of [place] Erector Helper? Yes August 14, 2024 11:42am Name of Medical Power of [place] [employer] Helper DEVANG Lemons August 14, 2024 11:42am Advance Directive Response Recorded Date/ Time Living Will Yes July 29 6:07pm Do you have a Healthcare Pow er of [place] Erector Helper? Yes July 29, 2024 6:07pm Name of Medical Power of [place] [employer] Helper July 29, 2024 6:07pm Living Will Yes August 14 11:42am Do you have a Healthcare Pow er of [place] Erector Helper? Yes August 14, 2024 11:42am Name of Medical Power of [place] [employer] Helper DEVANG Lemons August 14, 2024 11:42am Family History No Family History Records Found Relationship Condition Age at Onset Recorded Date/T christo mother Coronary artery disease Unknown sister Coronary artery disease Unknown father Cardiac disease Unknown Chief Complaint and Reason for Visit Chief Complaint 6 M FU Reason for Visit Sinus tachycardia Essential hypertension Paroxysmal atrial fibrillation Presence of stent in coronary artery Pure hypercholesterolemia Chief Complaint 6 M FU E ORDER-MOODISPAW Reason for Visit Sinus tachycardia Essential hypertension Paroxysmal atrial fibrillation Presence of stent in coronary artery Pure hypercholesterolemia Chief Complaint 6 M FU E ORDER-MOODISPAW 3 M FU E ORDER Reason for Visit Sinus tachycardia Essential hypertension Paroxysmal atrial fibrillation Presence of stent in coronary artery Pure hypercholesterolemia Chest pain PALOMO (dyspnea on exertion) Fatigue Atherosclerotic heart disease of [place] coronary artery without angina pectoris Essential hypertension Paroxysmal atrial fibrillation Presence of stent in coronary artery Pure hypercholesterolemia Chief Complaint 6 M FU E ORDER-MOODISPAW 3 M FU E ORDER DYSPNEA Reason for Visit Sinus tachycardia Essential hypertension Paroxysmal atrial fibrillation Presence of stent in coronary artery Pure hypercholesterolemia Chest pain PALOMO (dyspnea on exertion) Fatigue Atherosclerotic heart disease of [place] coronary artery without angina pectoris Essential hypertension Paroxysmal atrial fibrillation Presence of stent in coronary artery Pure hypercholesterolemia Chief Complaint 3 M FU E ORDER DYSPNEA 4-6 wk fu LEG NUMBNESS Reason for Visit Chest pain Atherosclerotic heart disease of [place] coronary artery without angina pectoris PALOMO (dyspnea on exertion) Essential hypertension Fatigue Paroxysmal atrial fibrillation Presence of stent in coronary artery Pure hypercholesterolemia Atherosclerotic heart disease of [place] coronary artery without angina pectoris PALOMO (dyspnea on exertion) Essential hypertension Fatigue Paroxysmal atrial fibrillation Presence of stent in coronary artery Pure hypercholesterolemia Chief Complaint 3 M FU E ORDER DYSPNEA 4-6 wk fu LEG NUMBNESS BILAT LOWER EXT LEG NUMBNESS Cough 6 M FU Reason for Visit Chest pain Atherosclerotic heart disease of [place] coronary artery without angina pectoris PALOMO (dyspnea on exertion) Essential hypertension Fatigue Paroxysmal atrial fibrillation Presence of stent in coronary artery Pure hypercholesterolemia Atherosclerotic heart disease of [place] coronary artery without angina pectoris PALOMO (dyspnea on exertion) Essential hypertension Fatigue Paroxysmal atrial fibrillation Presence of stent in coronary artery Pure hypercholesterolemia Atherosclerotic heart disease of [place] coronary artery without angina pectoris Essential hypertension Paroxysmal atrial fibrillation Presence of stent in coronary artery Pure hypercholesterolemia Chief Complaint BILAT LOWER EXT LEG NUMBNESS Cough 6 M FU ABNORMAL NC STUDY Reason for Visit Atherosclerotic hear t disease of [place] coronary artery without angina pectoris Essential hypertension Paroxysmal atrial fibrillation Presence of stent in coronary artery Pure hypercholesterolemia Chief Complaint BILAT LOWER EXT LEG NUMBNESS Cough 6 M FU ABNORMAL NC STUDY lumber spine Rm 2 xray DYSPHAGIA *12MM TABLET* Reason for Visit Atherosclerotic hear t disease of [place] coronary artery without angina pectoris Essential hypertension Paroxysmal atrial fibrillation Presence of stent in coronary artery Pure hypercholesterolemia 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 Chief Complaint ABNORMAL NC STUDY lumber spine Rm 2 xray DYSPHAGIA *12MM TABLET* Reason for Visit Diabetic autonomic n europathy associated with secondary diabetes mellitus Chief Complaint ABNORMAL NC STUDY lumber spine Rm 2 xray DYSPHAGIA *12MM TABLET* Type 2 diabetes mellitus with hyperglycemia Reason for Visit Diabetic autonomic n europathy associated with secondary diabetes mellitus Chief Complaint Type 2 diabetes sissy itus with hyperglycemia 6 M FU Weakness EORDER DROP FOOT RX HERE Reason for Visit Atherosclerotic hear t disease of [place] coronary artery without angina pectoris PALOMO (dyspnea on exertion) Essential hypertension Fatigue Paroxysmal atrial fibrillation Pure hypercholesterolemia Polyneuropathy Abnormality of gait and mobility Left foot drop Low back pain Chief Complaint Type 2 diabetes sissy itus with hyperglycemia 6 M FU Weakness EORDER DROP FOOT RX HERE REDRAW SCANNED ORDER Reason for Visit Atherosclerotic hear t disease of [place] coronary artery without angina pectoris PALOMO (dyspnea on exertion) Essential hypertension Fatigue Paroxysmal atrial fibrillation Pure hypercholesterolemia Polyneuropathy Abnormality of gait and mobility Left foot drop Low back pain Chief Complaint DROP FOOT RX HERE REDRAW SCANNED ORDER 4 mon f/u RADHA 2 ORDERING PARUL [employer] PAPER Reason for Visit Abnormality of gait and mobility Fatigue Left foot drop Polyneuropathy Chief Complaint REDRAW SCANNED ORDER 4 mon f/u RADHA 2 ORDERING [employer]UL [employer] PAPER b12 Reason for Visit Abnormality of gait and mobility Fatigue Left foot drop Polyneuropathy Fatigue Chief Complaint 4 mon f/u EODIONISIOER 2 ORDERING PARUL [employer] PAPER b12 6 M FU/PREV PFM B12 inject B12 inject Reason for Visit Fatigue Polyneuropathy Fatigue 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 Coronary artery disease Diabetes Dyslipidemia Essential hypertension History of atrial fibrillation Obesity Polyneuropathy Presence of stent in coronary artery Fatigue Fatigue Chief Complaint B12 inject B12 inject B12 inject Reason for Visit Fatigue Fatigue Fatigue Chief Complaint B12 inject B12 inject B12 inject B12 inject Reason for Visit Fatigue Fatigue Fatigue Fatigue Chief Complaint Admit Date 6 M FU May 05, 2024 2:12pm 3 ORDERING JOSE ROBERTO GARCIA FROM [facility]USH[facility] jackson 21st, 2024 7:23am B12 inject May 07, 2024 7:44am DIZZINESS May 22, 2024 7 :45pm facial swelling May 24, 2024 2 :09pm CAD/ASHD May 29, 2024 6:22am CAD/ASHD June 02, 2024 2:13pm LUMBAR RADIC/RX HERE June 29, 2024 9:00am Cysto,TUR,Prostate,Olympus July 3:16pm CHRONIC COUGH August 05, 2024 7:46am Reason for Visit Admit Date Coronary artery disease May 05, 2 024 2:12pm Diabetes May 05, 2024 2:12pm Diabetic autonomic neuropath y associated with secondary diabetes mellitus May 05, 2024 2:12pm Dyslipidemia May 05, 2024 2:12pm Essential hypertension May 05 2:12pm Obesity May 05, 2024 2:12pm Presence of stent in coronary artery Nov ember 2023 2:12pm Fatigue May 07, 2024 7:44am Chief Complaint Admit Date DIZZINESS May 22, 2024 7 :45pm facial swelling May 24, 2024 2 :09pm CAD/ASHD May 29, 2024 6:22am CAD/ASHD June 02, 2024 2:13pm LUMBAR RADIC/RX HERE June 29, 2024 9:00am Cysto,TUR,Prostate,Olympus July 3:16pm CHRONIC COUGH August 05, 2024 7:46am Chief Complaint Admit Date Cysto,TUR,Prostate,[place] July 3:16pm CHRONIC COUGH August 05, 2024 7:46am PULMONARY FIBROSIS August 19, 2024 9:00 am Reason for Referral Specialty Diagnoses / Procedures Referred By Lisette arroyo Referred To Contact Diagnoses Lumbar radiculopathy Procedures EMG & NERVE CONDUCTION Ericka Melissa MD [address] [address] Referral ID Status Reason Start Date Expiration Date V isits Requested Visits Authorized [id number] New Request 05/12/2024 06/06/2025 1 1 Specialty Diagnoses / Procedures Referred By Lisette arroyo Referred To Contact Diagnoses Lumbar radiculopathy Ericka Melissa MD [address] [address] Referral ID Status Reason Start Date Expiration Date V isits Requested Visits Authorized [id number] New Request 05/12/2024 06/06/2025 1 1 Scheduling Instructions [facility] (Orthopedic, Sports Rehab) [address], [address], [place] [address] Outpatient Care [place] (Burn, Neurological, Orthopedic, Pelvic Health, Sports Rehab) [address] [facility], [address], [place] [address] Outpatient Care [facility] (Orthopedic Rehab) [address], [address], [place] [address] Outpatient [facility] [place] (Orthopedic, Pelvic Health, Sports) [address] [facility], [address], [place] [address] Outpatient Care [place] - Pelvic Health [address] [facility], [address], [place] [address] Outpatient Care [place] (Orthopedic, Pelvic Health, Sports Rehab) [address], [address], [place] [address] Outpatient Care [facility] (Aquatic, Burn, Neurological, Orthopedic, Pelvic Health Rehab) [address] [facility] 2nd Floor [address] Outpatient [facility] [place] (Burn, Neurological, Orthopedic, Pelvic Health, Sports Rehab) [address] , [address], [place] [address] Outpatient Rehabilitation [facility] (Neurological, Orthopedic Rehab) [address] [place] [address] Outpatient Rehabilitation [facility] (Aquatic, Burn, Neurological, Orthopedic, Pelvic Health Rehab) [address], [place] [address] Outpatient Rehabilitation [place] (Burn, Neurological, Orthopedic Rehab) [address] [place] [address] Sports Medicine Rehabilitation [facility] (Orthopedic, Sports Rehab) [address] [facility], [place] [address] [facility], [facility]) [address] , [place] [address] Sports Medicine Rehabilitation [facility] (Orthopedic, Sports Rehab) [address], [place] [address] Sports Medicine Rehabilitation [facility] (Aquatic, Orthopedic, Pelvic Health, Sports Rehab) [address], [place] [address] Sports Medicine Rehabilitation [facility] (Orthopedic, Sports Rehab) [address] [place] [address] Sports Medicine Rehabilitation [facility] (Orthopedic, Sports Rehab) [address] [place] [address] [facility], [address], [place] [address] Specialty Diagnoses / Procedures Referred By Contac t Referred To Contact Diagnoses Lumbar radiculopathy Procedures MRI SPINE LUMBAR WITHOUT CONTRAST CHG MRI SPINAL CANAL LUMBAR W/O CONTRAST MATERIAL Ericka Melissa MD [address] [address] Referral ID Status Reason Start Date Expiration Date V isits Requested Visits Authorized [id number] New Request 05/12/2024 06/06/2025 1 1 Specialty Diagnoses / Procedures Referred By Contac t Referred To Contact Diagnoses Lumbar radiculopathy Procedures MRI ANGIO SPINE [place] MRA, W/O&W/DYE, SPINAL CANAL Ericka Melissa MD [address] [address] Referral ID Status Reason Start Date Expiration Date V isits Requested Visits Authorized [id number] New Request 05/12/2024 06/06/2025 1 1 Summary Purpose Additional Source Comments Reason for Visit (unrecogniz ed section and content) Reason Comments Change In Symptoms Reason Comments New Patient Specialty Diagnoses / Procedures Referred By Contac t Referred To Contact Neurology Diagnoses Polyneuropathy Connor Kohli MD [address] [address] [facility] [address] [place] [address] Referral ID Status Reason Start Date Expiration Date V isits Requested Visits Authorized [id number] New Request 01/29/2024 02/22/2025 1 1 Reason Comments Facial Swelling right side facial sw elling, redness and painful x 1, started inside of left side nose now right side face swelling Specialty Diagnoses / Procedures Referred By Contac t Referred To Contact Diagnoses Lumbar radiculopathy Procedures EMG & NERVE CONDUCTION Ericka Melissa MD [address] [address] Referral ID Status Reason Start Date Expiration Date V isits Requested Visits Authorized [id number] New Request 05/12/2024 06/06/2025 1 1 Reason Comments Follow-up Goals (unrecognized section and content) Goals may be documented in a n alternate sectionGoals may be documented in an alternate sectionGoals may be documented in an alternate sectionGoals may be documented in an alternate sectionGoals may be documented in an alternate sectionGoals may be documented in an alternate sectionGoals may be documented in an alternate sectionGoals may be documented in an alternate sectionGoals may be documented in an alternate sectionGoals may be documented in an alternate sectionGoals may be documented in an alternate sectionGoals may be documented in an alternate sectionGoals may be documented in an alternate sectionGoals may be documented in an alternate sectionGoals may be documented in an alternate sectionGoals may be documented in an alternate sectionGoals may be documented in an alternate sectionGoals may be documented in an alternate sectionGoals may be documented in an alternate sectionGoals may be documented in an alternate sectionGoals may be documented in an alternate sectionGoals may be documented in an alternate sectionGoals may be documented in an alternate section Care Teams (unrecognized sec tion and content) Team Status: Active Member Role Status Dates Dr. Connor Kohli MD Family Provider Active Dr. Connor Kohli MD Primary Care Provider Active Team Status: Inactive Member Role Status Dates Dr. Connor Kohli MD Primary Care Provider, Referring Provider Active Dr. Connor Acevedo MD Attending Provider Active Team Status: Inactive Member Role Status Dates Dr. Connor Kohli MD Primary Care Provi coral, Attending Provider, Referring Provider Active Dr. Octavio Rasmussen MD Other Provider Active Team Status: Inactive Member Role Status Dates Dr. Connor Kohli MD Primary Care Provider, Attending Provider Active Team Status: Inactive Member Role Status Dates Dr. Connor Kohli MD Primary Care Provider Active Dr. Octavio Rasmussen MD Attending Provider Active Team Status: Inactive Member Role Status Dates Dr. Connor Kohli MD Primary Care Provi coral, Attending Provider, Referring Provider Active Team Status: Inactive Member Role Status Dates Dr. Connor Kohli MD Primary Care Provider, Referring Provider Active Dr. Vamsi Story DO Attending Provider Active Team Status: Inactive Member Role Status Dates Dr. Connor Kohli MD Primary Care Provider Active Dr. Art Plummer MD Attending Provider Active Team Status: Inactive Member Role Status Dates Dr. Connor Kohli MD Primary Care Provider Active Dr. Petr Kim MD Attending Provider, Referring Provider Active Team Status: Active Member Role Status Dates Dr. Connor Kohli MD Primary Care Provider Active Dr. Jg Valle MD Attending Provider, Referring Pro vider Active Team Status: Inactive Member Role Status Dates Dr. Connor Kohli MD Primary Care Provider Active Dr. Jg Valle MD Attending Provider, Referring Pro vider Active Team Status: Inactive Member Role Status Dates Dr. Connor Kohli MD Primary Care Provider Active Dr. Griffin Saldivar DO Attending Provider, Referring Provider Active Team Status: Inactive Member Role Status Dates Dr. Connor Kohli MD Primary Care Provider, Referring Provider Active Anmol Ventura GEOSPATIAL ANALYST, GEOSPATIAL ANALYST-C Attending Provider Active Team Status: Inactive Member Role Status Dates Dr. Connor Kohli MD Primary Care Provider, Referring Provider Active Dr. Tino Gamble MD Attending Provider Active Team Status: Active Member Role Status Dates Dr. Connor Kohli MD Primary Care Provider Active Dr. Tino Gamble MD Attending Provider, Referring Provider Active Team Status: Inactive Member Role Status Dates Dr. Connor Kohli MD Primary Care Provider Active Dr. Tino Gamble MD Attending Provider, Referring Provider Active Team Status: Inactive Member Role Status Dates Dr. Connor Kohli MD Primary Care Provider Active Dr. Griffin Saldivar DO Attending Provider, Referring Provider Active Anmol Ventura GEOSPATIAL ANALYST, GEOSPATIAL ANALYST-C Other Provider Active Team Status: Inactive Member Role Status Dates Dr. Connor Kohli MD Primary Care Provider Active Dr. Avinash Lombardi MD Attending Provider, Referr ing Provider Active Team Status: Inactive Member Role Status Dates Dr. Connor Kohli MD Primary Care Provider, Referring Provider Active Dr. Alyson Collier MD Attending Provider Active Team Status: Inactive Member Role Status Dates Dr. Connor Kohli MD Primary Care Provider Active Tita GREENE, PA Attending Provider, Referring P danna Active Dr. Jg Valle MD Other Provider Active [employer] Supervisor Relationship Specialty Start Date End Date Connor Kohli MD [address] [facility] [address] [place] [address] PCP - General Family Medicine 10/08/18 Colleen Franco DO [address] [place] [address] [address] [place], [place] [address] Internal Medicine 06/02/12 [employer] Supervisor Relationship Specialty Start Date End Date Connor Kohli MD [address] [place] [address] PCP - General Family Medicine 10/08/18 Colleen Franco DO [address] [place] [address] [address] [place] [address] Internal Medicine 06/02/12 [employer] Supervisor Relationship Specialty Start Date End Date Connor Kohli MD [address] [facility] [address] [place] [address] PCP - General Family Medicine 10/08/18 Colleen Franco DO [address] [facility] [address] [place] [address] Internal Medicine 06/02/12 [employer] Supervisor Relationship Specialty Start Date End Date Connor Kohli MD [address] [facility] [address] [place] [address] PCP - General Family Medicine 10/08/18 Colleen Franco DO [address] [facility] [address] [place] [address] Internal Medicine 06/02/12 [employer] Supervisor Relationship Specialty Start Date End Date Connor Kohli MD [address] [facility] [address] [place] [address] PCP - General Family Medicine 10/08/18 Colleen Franco DO [address] [facility] [address] [place] [address] Internal Medicine 06/02/12 Team Status: Active Member Role Status Dates Dr. Connor Kohli MD Primary Care Provider Active Team Status: Inactive Member Role Status Dates Dr. Connor Kohli MD Primary Care Provider Active Start: May 05, 2024 End: May 05, 2024 Dr. Connor Kohli MD Referring Provider Active Start: May 05, 2024 End: May 05, 2024 Dr. Alyson Collier MD Attending Provider Active Start: May 05, 2024 End: May 05, 2024 Team Status: Inactive Member Role Status Dates Dr. Connor Kohli MD Primary Care Provider Active Start: May 07, 2024 End: May 07, 2024 Dr. Connor Kohli MD Other Provider Active Star t: May 07, 2024 End: May 07, 2024 Harshal PA, PA Attending Provider Active Start: May 07, 2024 End: May 07, 2024 Harshal PA, PA Referring Provider Active Start: May 07, 2024 End: May 07, 2024 Dr. Alyson Collier MD Other Provider Active Star t: May 07, 2024 End: May 07, 2024 Team Status: Inactive Member Role Status Dates Dr. Connor Kohli MD Primary Care Provider Active Start: May 07, 2024 End: May 07, 2024 Dr. Tino Gamble MD Attending Provider Active Start: May 07, 2024 End: May 07, 2024 Dr. Tino Gamble MD Referring Provider Active Start: May 07, 2024 End: May 07, 2024 Team Status: Inactive Member Role Status Dates Dr. Connor Kohli MD Primary Care Provider Active Start: May 22, 2024 End: May 23, 2024 Dr. Chito Munoz DO Attending Provider Active Start : May 22, 2024 End: May 23, 2024 Dr. Chito Munoz DO Emergency Provider Active Start : May 22, 2024 End: May 23, 2024 Team Status: Inactive Member Role Status Dates Dr. Connor Kohli MD Primary Care Provider Active Start: May 24, 2024 End: May 24, 2024 Dr. Edilberto Manuel DO Attending Provider Active Start: May 24, 2024 End: May 24, 2024 Dr. Edilberto Manuel DO Emergency Provider Active Start: May 24, 2024 End: May 24, 2024 Team Status: Inactive Member Role Status Dates Dr. Connor Kohli MD Primary Care Provider Active Start: May 29, 2024 End: May 29, 2024 Dr. Alyson Collier MD Attending Provider Active Start: May 29, 2024 End: May 29, 2024 Dr. Alyson Collier MD Referring Provider Active Start: May 29, 2024 End: May 29, 2024 Team Status: Active Member Role Status Dates Dr. Connor Kohli MD Primary Care Provider Active Start: May 29, 2024 Dr. Leeanne Blanca MD Attending Provider Activ e Start: May 29, 2024 Team Status: Active Member Role Status Dates Dr. Connor Kohli MD Primary Care Provider Active Start: June 02, 2024 Dr. Alyson Collier MD Referring Provider Active Start: June 02, 2024 Dr. Alyson Collier MD Other Provider Active Star t: June 02, 2024 Dr. Leeanne Blanca MD Attending Provider Activ e Start: June 02, 2024 Team Status: Inactive Member Role Status Dates Dr. Connor Kohli MD Primary Care Provider Active Start: June 29, 2024 End: June 29, 2024 FÉLIX GASTELUM Attending Provider Active Start: June 29, 2024 End: June 29, 2024 FÉLIX GASTELUM Referring Provider Active Start: June 29, 2024 End: June 29, 2024 Team Status: Inactive Member Role Status Dates Dr. Connor Kohli MD Primary Care Provider Active Start: July 29, 2024 End: July 30, 2024 Dr. Avinash Lombardi MD Admit Provider Active Start: July 29, 2024 End: July 30, 2024 Dr. Avinash Lombardi MD Attending Provider Active Start: July 29, 2024 End: July 30, 2024 Dr. Avinash Lombardi MD Referring Provider Active Start: July 29, 2024 End: July 30, 2024 Team Status: Inactive Member Role Status Dates Dr. Connor Kohli MD Primary Care Provider Active Start: August 05, 2024 End: August 05, 2024 Dr. Octavio Rasmussen MD Attending Provider Active Start: August 05, 2024 End: August 05, 2024 Dr. Octavio Rasmussen MD Referring Provider Active Start: August 05, 2024 End: August 05, 2024 Team Status: Inactive Member Role Status Dates Dr. Connor Kohli MD Primary Care Provider Active Start: August 13, 2024 End: August 13, 2024 Dr. Octavio Rasmussen MD Attending Provider Active Start: August 13, 2024 End: August 13, 2024 Dr. Octavio Rasmussen MD Referring Provider Active Start: August 13, 2024 End: August 13, 2024 Team Status: Inactive Member Role Status Dates Dr. Connor Kohli MD Primary Care Provider Active Start: August 19, 2024 End: August 19, 2024 Dr. Connor Kohli MD Referring Provider Active Start: August 19, 2024 End: August 19, 2024 Dr. Octavio Rasmussen MD Attending Provider Active Start: August 19, 2024 End: August 19, 2024 Team Status: Active Member Role Status Dates Dr. Connor Kohli MD Primary Care Provider Active Start: August 26, 2024 Dr. Griffin Saldivar DO Attending Provider Active Start: August 26, 2024 Dr. Griffin Saldivar DO Referring Provider Active Start: August 26, 2024 Team Status: Inactive Member Role Status Dates Dr. Connor Kohli MD Primary Care Provider Active Start: August 26, 2024 End: August 26, 2024 Dr. Griffin Saldivar DO Attending Provider Active Start: August 26, 2024 End: August 26, 2024 Dr. Griffin Saldivar DO Referring Provider Active Start: August 26, 2024 End: August 26, 2024 Team Status: Active Member Role Status Dates Dr. Connor Kohli MD Primary Care Provider Active Start: August 19, 2024 Dr. Jese Perez MD Attending Provider Active Start: August 19, 2024 Dr. Jese Perez MD Referring Provider Active Start: August 19, 2024 Team Status: Inactive Member Role Status Dates Dr. Connor Kohli MD Primary Care Provider Active Start: November 04, 2024 End: November 04, 2024 Dr. Griffin Saldivar DO Attending Provider Active Start: November 04, 2024 End: November 04, 2024 Dr. Griffin Saldivar DO Referring Provider Active Start: November 04, 2024 End: November 04, 2024 Source Comments (unrecognize d section and content) In the event this informatio n is protected by the Federal Confidentiality of Alcohol and Drug Abuse Patient Records regulations: The Federal rules restrict any use of the information to criminally investigate or prosecute any alcohol or drug abuse patient.[facility] (unrecognized sect ion and content) No Status Records FoundNo Status Records FoundNo Status Records Found INFORMATION SOURCE (unrecogn ized section and content) DATE CREATED AUTHOR 05/27/2024 [facility] DATE CREATED AUTHOR AUTHOR'S ORGANIZ ATION 09/03/2024 [facility] DATE CREATED AUTHOR AUTHOR'S ORGANIZ ATION 11/11/2024 [facility] FOR RECORDS PERTAINING TO PATIENTS WHO ARE OR HAVE BEEN ENROLLED IN A CHEMICAL DEPENDENCY/SUBSTANCEABUSE PROGRAM, SOME INFORMATION MAY BE OMITTED. This clinical summary was aggregated from multiple sources. Caution should be exercised in using it in the provision of clinical care. This summary normalizes information from multiple sources, and as a consequence, information in this document may materially change the coding, format and clinical context of patient data. In addition, data may be omitted in some cases. CLINICAL DECISIONS SHOULD BE BASED ON THE PRIMARY CLINICAL RECORDS. [employer] provides no warranty or guarantee of the accuracy or completeness of information in this document.
--- NOTE | 2024-11-29 16:05 | CM.ED ---
Social Work Date of referral: 11/29/24 Reason for referral: Advanced Care Directives (ACD's) not on file. Referred by: Social Work identification Patient provided consent to social work visit. Supervisor Warping Department asked patient to bring in a copy of the ACD's next time patient is in for a visit or any time patient is close to the hospital and can just drop off which agreed to. No other concerns/requests noted at this time. Cathie Smith, VASCULAR ULTRASOUND TECHNICIAN, REGISTERED SALES ASSISTANT
--- NOTE | 2024-11-29 16:11 | EKG12_ITS ---
Test Reason : CP Blood Pressure : */* mmHG Vent. Rate : 74 BPM Atrial Rate : 74 BPM P-R Int : 132 ms QRS Dur : 80 ms QT Int : 366 ms P-R-T Axes : 30 16 19 degrees QTcB Int : 406 ms Normal sinus rhythm Normal ECG Confirmed by FERMÍN MAY, SHAWNA ([id number]), school photograph editor [employer]IT[employer] NORTH ([id number]) on 12/01/2024 7:44:00 AM Referred By: ES Confirmed By: SHAWNA KOVACS MD
--- NOTE | 2024-11-29 16:20 | RAD_ITS ---
PROCEDURE: CHEST 1 VIEW (PORTABLE) 11/29/2024 REASON FOR EXAM: CHEST PAIN TECHNIQUE: Frontal view of the chest. COMPARISON: 08/19/2024 FINDINGS: No focal consolidations. Bibasilar subsegmental atelectasis. Mild pulmonary vascular congestion. No pleural effusion or pneumothorax. Cardiac silhouette is unchanged. RAD/Chest 1 View (Portable) IMPRESSION: No focal consolidations. Bibasilar subsegmental atelectasis. Mild pulmonary va scular congestion. Reading Location: [id number]
[2024-11-29 16:22] LABS: Absolute Lymphocyte Count 1.96 X10^3/uL (0.83-4.51); Basophil# 0.04 X10^3/uL; Basophil% 0.4 % (0-1); Eosinophil# 0.05 X10^3/uL; Eosinophils% 0.5 % (0-5); Hematocrit 47.1 % (40-54); Hemoglobin 15.4 g/dL (13.0-16.5); Lymphocyte # 1.96 X10^3/ul (0.83-4.51); Lymphocyte % 17.7 % (19-41); Mean Corp Hgb Conc 32.7 g/dL (32-36); Mean Corpuscular Hgb 31.1 pg (27.0-32.0); Mean Corpuscular Volume 95.2 fL (80-94); Monocyte# 0.92 X10^3/uL; Monocyte% 8.3 % (0-10); NRBC Flagged by Analyzer 0.2 % (0-5); Neutrophil # 7.97 X10^3/uL (2.7-7.7); Neutrophil % 71.7 % (47-70); Platelet Count 182 K/mm3 (150-450); RBC Distribution Width CV 14.9 % (11.6-14.6); RBC Distribution Width SD 52.2 fl (35.1-43.9); Red Blood Count 4.95 M/mm3 (4.6-6.2); White Blood Count 11.1 K/mm3 (4.4-11.0)
[2024-11-29 16:30] VITALS: BP 108/87; PULSE 83; RESP 24; O2SAT 94
--- NOTE | 2024-11-29 16:30 | ED.VIS.CHEST ---
HPI History of Present Illness Chief Complaint: Chest Pain Informant: patient and spouse/S.O. Narrative Narrative: 74-year-old male presenting to the emergency room with a chief complaint of chest pain. Patient states that around 11:00 this morning while at [employer] she began to have a muscle spasm like sensation on the right side of his chest extending down into his abdomen. He states its mainly in the chest however. Nothing seems to make it better or worse. He has had similar episodes like this intermittently over the past several months but is never got them evaluated. He states that this is lasted longer and has been more intense than other times. He states that he did eat lunch which did not seem to necessarily change it. He denies nausea vomiting. No shortness of breath. He does have a history of coronary artery disease and follows locally with Dr. Collier from [facility]. He states that his symptoms are improving at the current time. He notes pain in the right shoulder but states that he had fallen and injured the elbow and the shoulder did not get evaluated and it continues to be sort of moved. [facility] Medical History Hypertension Non-smoker Facial cellulitis Loss of hearing Wears glasses Wears dentures Fungus infection Diabetes Thyroid disease Arthritis Bladder disease Prostate disease High cholesterol Back pain TIA (transient ischemic attack) Balance disorder Seizures Dietary restriction Gastric reflux CPAP (continuous positive airway pressure) dependence Shortness of breath on exertion History of pain when walking History of echocardiogram History of stress test Cardiology follow-up encounter History of orthostatic hypotension Hypotension Obesity Dyslipidemia History of atrial fibrillation Coronary artery disease Weakness Abnormality of gait and mobility Low back pain Left foot drop Polyneuropathy 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 Leg weakness, bilateral Chest pain Fatigue PALOMO (dyspnea on exertion) Sinus tachycardia COVID-19 Presence of stent in coronary artery (~04/30/13) Pure hypercholesterolemia Essential hypertension Diabetes Claudication in peripheral vascular disease Left ventricular hypertrophy Paroxysmal atrial fibrillation Atherosclerotic heart disease of [place] coronary artery without angina pectoris Home Medications ?Medication ?Instructions ?Recorded ?Last Taken ?Type nortriptyline 25 mg capsule 25 mg PO QHS nerve pain 04/23/13 11/28/24 History pantoprazole 40 mg tablet,delayed 40 mg PO DAILY acid reflux 04/23/13 11/29/24 History release cholecalciferol (vitamin D3) 25 5,000 unit PO DAILY DEFICIENCY 05/05/18 11/28/24 History mcg (1,000 unit) capsule nitroglycerin 0.4 mg sublingual 0.4 mg sublingual Q5-15M PRN chest 10/26/20 Unknown Rx tablet pain #25 tabs oxybutynin chloride 10 mg 10 mg PO BID 05/21/22 11/29/24 History tablet,extended release 24 hr Disability Placard #1 ea 11/29/22 Unknown Rx levothyroxine 50 mcg tablet 50 mcg PO DAILY 05/16/23 11/29/24 History Left AFO #1 ea 09/30/23 Unknown Rx ezetimibe 10 mg tablet 10 mg PO QHS to lower cholesterol 12/30/23 11/28/24 Rx #90 tabs clopidogrel 75 mg tablet 75 mg PO DAILY #90 tabs 03/19/24 11/29/24 Rx metoprolol tartrate 100 mg tablet 100 mg PO BID #180 TABLETS 05/04/24 08/19/24 07:30 Rx rosuvastatin 10 mg tablet 10 mg PO QHS 05/24/24 11/28/24 History lisinopril 20 mg tablet 20 mg PO QHS #90 tabs 09/08/24 11/28/24 Rx dapagliflozin propaned 5 2 tab PO DAILY 11/29/24 11/29/24 History mg-metformin ER 1,000 mg tablet, ext rel 24hr (Xigduo XR) glimepiride 4 mg tablet 4 mg PO DAILY 11/29/24 11/29/24 History prednisone 10 mg tablet 10 mg PO TID 11/29/24 11/29/24 History tirzepatide 7.5 mg/0.5 mL 7.5 mg subcut QWEEK 11/29/24 11/28/24 History subcutaneous pen injector (Mounjaro) Allergy/AdvReac Type Severity Reaction Status Date / Time acetaminophen (From Tylenol) Allergy Severe Anaphylaxis Verified 11/29/24 15:33 Penicillins Allergy Severe Other Verified 11/29/24 15:33 hydromorphone HCl (From AdvReac Severe Other Verified 11/29/24 15:33 Dilaudid) Family History Mother CAD (coronary artery disease) Sister CAD (coronary artery disease) Father Heart disease Surgical History History of transurethral resection of prostate History of esophagogastroduodenoscopy (EGD) Hx of colonoscopy History of umbilical hernia repair History of lumbar fusion Hx of right cataract extraction Hx of left cataract extraction History of lumbosacral spine surgery Presence of coronary angioplasty implant and graft (~04/30/13) History of resection of meningioma Social History Smoking Status: Never smoker alcohol intake: never substance use type: does not use caffeine: Yes Type: carbonated beverages Number of servings: 1 what type of physical activity do you participate in: none ROS ROS ED Constitutional Constitutional ED: Denies chills or weight loss Eyes Eyes: Denies change in vision or diplopia ENT ENT ED: Denies ear pain, rhinorrhea or sore throat Cardiovascular Cardiovascular: Reports as per HPI and chest pain; Denies orthopnea, palpitations or racing heartbeat Respiratory/Chest Respiratory/Chest: Denies cough, dyspnea or orthopnea Gastrointestinal Gastrointestinal: Reports abdominal pain; Denies diarrhea, nausea or vomiting Genitourinary Genitourinary ED: Denies dysuria, hematuria or urinary frequency Musculoskeletal Musculoskeletal: Reports other Details: Right shoulder pain ; Denies arthralgias, back pain, myalgias or neck pain Integumentary Denies abscess or rash Neurologic Neurologic: Denies headache(s) or weakness Psychiatric Psychiatric: Denies anxiety, depression, suicidal ideation or suicidal thoughts Endocrine Endocrinology: Denies polydipsia, polyphagia or polyuria Allergic/Immunologic Allergic/Immunologic ED: Denies mouth swelling, tongue swelling or urticaria EXAM Physical Exam Const Vital Signs: 11/29/24 15:31 11/29/24 15:38 11/29/24 16:30 Temperature 97.7 F L Temperature Source Oral Pulse Rate 73 83 Respiratory Rate 16 24 H Respiratory Effort Normal Non-Labored Blood Pressure 138/76 H 108/87 H Blood Pressure Mean 96 94 Pulse Ox 97 94 Oxygen Delivery Method Room Air Room Air 11/29/24 17:00 11/29/24 18:00 Temperature Temperature Source Pulse Rate 77 77 Respiratory Rate 29 H 27 H Respiratory Effort Blood Pressure 132/75 H 126/80 H Blood Pressure Mean 94 95 Pulse Ox 93 95 Oxygen Delivery Method Room Air Room Air Positive well nourished and well developed General Appearance ED: well developed and NAD HEENT Reports normocephalic, head/scalp atraumatic and moist mucous membranes Eyes PERRL and EOMs intact bilaterally Neck no lymphadenopathy, supple and no JVD Resp normal respiratory effort and clear to auscultation bilaterally Cardio regular rate, regular rhythm and no murmurs GI normal to inspection, nondistended, normoactive bowel sounds and non-tender Palpation: soft Back/Spine no CVA tenderness and normal ROM Extremity normal to inspection General Extremety ED: Negative for edema General Extremity: Negative for edema Neuro oriented x3 and CN's II-XII intact bilaterally Sensorium / Orientation: alert Motor Exam: strength 5/5 throughout Psych mental status grossly normal Mood & Affect: Negative for depressed or tearful Skin no rashes or lesions noted and no wounds MDM MDM MDM Narrative Medical decision making narrative: Differential diagnosis includes but not limited to pneumothorax acute coronary syndrome pleural effusion biliary colic pancreatitis GERD muscular spasm Patient's symptoms resolved here in the department without treatment. 2 sets of cardiac enzymes are 24 and 22. EKG is nonischemic. My independent interpretation of the chest x-ray is no acute process. Basic metabolic panel shows a creatinine 1.36 glucose of 117 liver enzymes are normal. Lipase is 30. I performed a bedside ultrasound which was limited due to body habitus I do not see any obvious cholelithiasis/pericholecystic fluid. Patient's not tender over his gallbladder. I doubt pulmonary embolism as this has been intermittent over weeks. At this point I think the patient can be discharged home. He is now asymptomatic. Would recommend PCP follow-up especially if continued symptoms. Patient and his are comfortable with this plan History & Record Review Discussion w/independent historian: Patient and Significant other Additional record(s) reviewed:: Prior outpatient record, Prior ED visit and Prior labs Lab Data Attestation: I reviewed the patient's lab results. Labs: Laboratory Results - last 24 hr 11/29/24 11/29/24 15:42 15:45 WBC 11.1 H RBC 4.95 Hgb 15.4 Hct 47.1 MCV 95.2 H MCH 31.1 MCHC 32.7 RDW Std Deviation 52.2 H RDW Coeff of Stacy 14.9 H Plt Count 182 MPV 10.0 Immature Gran % (Auto) 1.400 H Neut % (Auto) 71.7 H Lymph % (Auto) 17.7 L [place] % (Auto) 8.3 Eos % (Auto) 0.5 Baso % (Auto) 0.4 Absolute Neuts (auto) 8.0 H Absolute Lymphs (auto) 1.96 Nucleated RBC % 0.2 Sodium 138 Potassium 4.9 Chloride 102 Carbon Dioxide 21.6 Anion Gap 15 BUN 18 Creatinine 1.36 H Estim Creat Clear Calc 48.97 L Est GFR (MDRD) Non-Af 55 L BUN/Creatinine Ratio 13.1 Glucose 117 H Calcium 9.7 Total Bilirubin 0.44 Direct Bilirubin 0.17 AST 23 ALT 31 Alkaline Phosphatase 49 Troponin T High Sens 24 H Troponin T Hi Sens 2 Hr 22 Total Protein 6.6 Albumin 3.8 Globulin 2.8 Lipase 30 Radiography Diagnostic Testing: Clinical Impression(s) from Imaging Studies Chest X-Ray 11/29/24 16:20 IMPRESSION: No focal consolidations. Bibasilar subsegmental atelectasis. Mild pulmonary vascular congestion. Reading Location: [facility] EKG Initial EKG: Attestation: I personally reviewed and interpreted this EKG as follows: Comments: Normal sinus rhythm ventricular rate of 74 bpm. Discharge Plan Triage Chief Complaint: Chest Pain ED Provider: Kaleb Quiroz Dx/Rx/DC Orders Clinical Impression: Chest pain Instructions: ED Chest Pain, Uncertain Cause Prescriptions: No Action cholecalciferol (vitamin D3) 1,000 unit capsule 5,000 unit PO DAILY Patient Comments: PT TAKES AT BEDTIME nitroglycerin 0.4 mg tablet, sublingual 0.4 mg sublingual Q5-15M PRN (Reason: chest pain) Qty: 25 3RF Rx Instructions: do not exceed 3 doses per episode oxybutynin chloride 10 mg tablet extended release 24hr 10 mg PO BID (DME) Disability Placard See Rx Instructions .Route .MEDSUPPLY Qty: 1 0RF Rx Instructions: Expiration: 11/29/2025 levothyroxine 50 mcg tablet 50 mcg PO DAILY (DME) Left AFO See Rx Instructions .Route .MEDSUPPLY Qty: 1 0RF Rx Instructions: As directed nortriptyline 25 MG capsule 25 mg PO QHS pantoprazole 40 MG tablet 40 mg PO DAILY rosuvastatin 10 mg tablet 10 mg PO QHS dapaglifloz propaned-metformin [Xigduo XR] 5-1,000 mg tablet, IR - ER, biphasic 24hr 2 tab PO DAILY prednisone 10 mg tablet 10 mg PO TID Mounjaro 7.5 mg/0.5 mL pen injector 7.5 mg subcut QWEEK Rx Instructions: PT TAKES ON SATURDAYS glimepiride 4 mg tablet 4 mg PO DAILY ezetimibe 10 mg tablet 10 mg PO QHS Qty: 90 3RF clopidogrel 75 mg tablet 75 mg PO DAILY Qty: 90 3RF metoprolol tartrate 100 mg tablet 100 mg PO BID Qty: 180 3RF lisinopril 20 mg tablet 20 mg PO QHS Qty: 90 3RF Rx Instructions: TAKE 1 TABLET BY MOUTH DAILY FOR HIGH BLOOD PRESSURE Primary Care Provider: Connor Kohli Referrals: Connor Kohli MD [Primary Care Provider] - 1 Week Print Language: Malian Disposition Disposition: Home, Self Care
[2024-11-29 16:46] LABS: Lipase 30 U/L (13-75); Troponin T High Sensitivity 24 ng/L (<=22)
[2024-11-29 16:47] LABS: AST(SGOT) 23 U/L (<=37); Alanine Aminotransfer ALT/SGPT 31 U/L (<=46); Albumin, Serum 3.8 g/dL (3.4-4.8); Alkaline Phosphatase 49 U/L (40-129); Anion Gap 15 (5-15); BUN 18 mg/dL (4-19); BUN/Creat Ratio 13.1 RATIO (10-20); Bilirubin, Direct 0.17 mg/dL (0.00-0.30); Calcium,Total 9.7 mg/dL (7.6-11.0); Carbon Dioxide 21.6 mmol/L (21.0-32.0); Chloride 102 mmol/L (98-108); Creatinine, Serum 1.36 mg/dL (0.70-1.20); EST Glomerular Filtration Rate 55 (>60); Estimated Creatinine Clearance 48.97 ml/min (50-250); Globulin 2.8 g/dL (2.2-4.2); Glucose 117 mg/dL (70-99); Potassium 4.9 mmol/L (3.3-5.1); Protein, Total 6.6 g/dL (5.9-8.4); Sodium Level 138 mmol/L (133-145); Total Bilirubin 0.44 mg/dL (0.00-1.30)
[2024-11-29 17:00] VITALS: BP 132/75; PULSE 77; RESP 29; O2SAT 93
[2024-11-29 18:00] VITALS: BP 126/80; PULSE 77; RESP 27; O2SAT 95
[2024-11-29 18:15] LABS: Troponin T High Sens 2 HR 22 ng/L (<=22)
[2024-11-29 18:47] VITALS: BP 123/78; PULSE 73; RESP 23; TEMP 36.6; O2SAT 95
== END 2024-11-29 18:48 | disposition home or self-care (01) ==
PROVIDERS: Emergency Provider Emergency Medicine; PCP Family Medicine; Visit Provider Emergency Medicine
DX: R07.89 Other chest pain (principal); I48.0 Paroxysmal atrial fibrillation; E11.43 Type 2 diabetes mellitus with diabetic autonomic (poly)neuropathy; I10 Essential (primary) hypertension; E07.9 Disorder of thyroid, unspecified; K21.9 Gastro-esophageal reflux disease without esophagitis; I25.10 Atherosclerotic heart disease of native coronary artery without angina pectoris; E78.00 Pure hypercholesterolemia, unspecified; Z95.1 Presence of aortocoronary bypass graft; Z86.73 Personal history of transient ischemic attack (TIA), and cerebral infarction without residual deficits; Z79.84 Long term (current) use of oral hypoglycemic drugs; Z79.02 Long term (current) use of antithrombotics/antiplatelets; Z79.85 Long-term (current) use of injectable non-insulin antidiabetic drugs; Z79.890 Hormone replacement therapy; Z79.899 Other long term (current) drug therapy
CPT/HCPCS: 71045; 80048; 80076; 83690; 84484; 85025; 93005; 99284; A4216

== ENCOUNTER → 2024-12-11 | Outpatient (CLI) | payer MEDICARE, OTHER, SELFPAY ==
[2024-12-11 16:39] LABS: Cholesterol 103 mg/dL (<=200); High Density Lipoprotein 52 mg/dL; Low Density Lipoprotein Calc. 25 mg/dL; Pro- Brain NATRIURETIC PEPTIDE 192 pg/mL (<=900); Triglycerides 133 mg/dL; Very Low Density Lipoprotein 27 mg/dL (5-40); cholesterol:hdl ratio screen 1.98
== END | disposition home or self-care (01) ==
LOC: LAB 15:13
PROVIDERS: PCP Family Medicine; Referring Provider Physician Assistant Medical; Visit Provider Physician Assistant Medical
DX: R06.09 Other forms of dyspnea (principal); E78.00 Pure hypercholesterolemia, unspecified
CPT/HCPCS: 36415; 80061; 83880

== ENCOUNTER → 2024-12-31 | Outpatient (CLI) | payer MEDICARE, OTHER, SELFPAY ==
[2024-12-31 12:14] LABS: Hematocrit 42.2 % (40-54); Hemoglobin 13.9 g/dL (13.0-16.5); Immature Granulocytes Count 0.100 X10^3/uL (0.0-0.0); Mean Corp Hgb Conc 32.9 g/dL (32-36); Mean Corpuscular Volume 95.9 fL (80-94); Mean Platelet Vol. 10.2 fl (6.2-12.0); NRBC Flagged by Analyzer 0 % (0-5); Platelet Count 178 K/mm3 (150-450); RBC Distribution Width CV 14.8 % (11.6-14.6); RBC Distribution Width SD 52.6 fl (35.1-43.9); Red Blood Count 4.40 M/mm3 (4.6-6.2); White Blood Count 10.0 K/mm3 (4.4-11.0)
[2024-12-31 13:11] LABS: Creatinine, Urine (random) 101.00 mg/dL (39.00-259.00); Microalbumin,Random Urine < 12.0 mg/L (<20 mg/L)
[2024-12-31 13:24] LABS: AST(SGOT) 18 U/L (<=37); Alanine Aminotransfer ALT/SGPT 30 U/L (<=46); Albumin, Serum 3.4 g/dL (3.4-4.8); Alkaline Phosphatase 48 U/L (40-129); Anion Gap 12 (5-15); BUN 16 mg/dL (4-19); BUN/Creat Ratio 14.1 RATIO (10-20); Bilirubin, Direct 0.23 mg/dL (0.00-0.30); Calcium,Total 9.4 mg/dL (7.6-11.0); Carbon Dioxide 25.5 mmol/L (21.0-32.0); Chloride 102 mmol/L (98-108); Cholesterol 95 mg/dL (<=200); Globulin 2.6 g/dL (2.2-4.2); Glucose 78 mg/dL (70-99); Low Density Lipoprotein Calc. 15 mg/dL; Potassium 3.7 mmol/L (3.3-5.1); Triglycerides 153 mg/dL; Very Low Density Lipoprotein 31 mg/dL (5-40); Vitamin B12 1125 pg/mL (180-914); cholesterol:hdl ratio screen 1.93
== END | disposition home or self-care (01) ==
PROVIDERS: PCP Family Medicine; Referring Provider Internal Medicine Endocrinology, Diabetes & Metabolism; Visit Provider Internal Medicine Endocrinology, Diabetes & Metabolism
DX: E11.65 Type 2 diabetes mellitus with hyperglycemia (principal); E11.22 Type 2 diabetes mellitus with diabetic chronic kidney disease; N18.31 Chronic kidney disease, stage 3a; D51.3 Other dietary vitamin B12 deficiency anemia; E03.8 Other specified hypothyroidism; R53.83 Other fatigue
CPT/HCPCS: 80053; 80061; 82043; 82248; 82570; 82607; 83036; 84155; 84403; 84443; 85025

== ENCOUNTER → 2025-01-11 | Outpatient (CLI) | payer MEDICARE, OTHER, SELFPAY ==
[2025-01-11 11:28] LABS: Follicle Stimulating Hormone 10.0 mIU/mL
[2025-01-15 12:08] LABS: Testosterone, % Free 4.27 % (1.50-4.20); Testosterone, Free 9.22 ng/dL (5.00-21.00)
== END | disposition home or self-care (01) ==
LOC: MTLAB 08:33
PROVIDERS: PCP Family Medicine; Referring Provider Internal Medicine Endocrinology, Diabetes & Metabolism; Visit Provider Internal Medicine Endocrinology, Diabetes & Metabolism
DX: E29.1 Testicular hypofunction (principal); E03.9 Hypothyroidism, unspecified
CPT/HCPCS: 36415; 83001; 83002; 84402; 84403; 84439; 84443

== ENCOUNTER → 2025-01-12 | Outpatient (CLI) | payer MEDICARE, OTHER, SELFPAY ==
--- NOTE | 2025-01-12 18:06 | CT_ITS ---
PROCEDURE: CHEST WITHOUT CONTRAST 01/12/2025 REASON FOR EXAM: PULMONARY FIBROSIS TECHNIQUE: Chest CT without contrast. Coronal and Sagittal reconstruction series were provided. One or more dose reduction techniques were used (e.g., Automated exposure control, adjustment of the mA and/or kV according to patient size, use of iterative reconstruction technique RADIATION DOSE SUMMARY: CTDlvol: 18 mGy DLP: 583 mGycm COMPARISON: 08/05/2024 FINDINGS: Central airways are patent. Bilateral lower lobe bronchiectasis. Postinflammatory scarring in the lingular segment, right middle lobe, and bilateral lower lobes. However, previously noted multifocal areas of ground-glass airspace disease, roughly in the same areas, is intervally resolved. There is no new consolidation, effusion or pneumothorax. No suspicious lung nodules. Unremarkable base of neck and axilla. Thoracic spine scoliosis and degeneration. Normal esophagus. Upper limits of normal heart size. No acute vascular pathology. No acute chest wall findings. Multiple old left-sided rib fractures. Old left scapular fracture. No acute upper abdominal findings. CT/Chest without Contrast IMPRESSION: Interval clearing of bilateral multifocal areas of ground-glass airspace diseas e which may have been infectious/inflammatory in etiology. Bilateral lung scarring. Reading Location[facility]
== END | disposition home or self-care (01) ==
LOC: CT 18:03
PROVIDERS: PCP Family Medicine; Referring Provider Internal Medicine Pulmonary Disease; Visit Provider Internal Medicine Pulmonary Disease
DX: J84.10 Pulmonary fibrosis, unspecified (principal)
CPT/HCPCS: 71250

== ENCOUNTER → 2025-01-27 | Outpatient (CLI) | payer MEDICARE, OTHER, SELFPAY ==
--- NOTE | 2025-01-27 09:51 | VDLE_ITS ---
Reason For Study Reason For Study: BLE Edema RIGHT LEFT GSV is normal. GSV is normal. CFV is compressible, spontaneous, phasic, competent CFV is compressible, spontaneous, phasic, competent, and demonstrates normal augmentation. and demonstrates normal augmentation. FV is compressible, spontaneous, phasic, competent FV is compressible, spontaneous, phasic, competent and demonstrates normal augmentation. and demonstrates normal augmentation. POP V is compressible, spontaneous, phasic, competent POP V is compressible, spontaneous, phasic, competent and demonstrates normal augmentation. and demonstrates normal augmentation. T/P Trunk is compressible. T/P Trunk is compressible. PTV is compressible. PTV is compressible. RT PerV is compressible. LT PerV is compressible. Procedure This is a venous duplex using B-mode, color flow and spectral Doppler. Exam performed in department. The exam was diagnostic. VL/Venous Duplex US - [place] Extrem Interpretation Summary Deep veins of the lower extremities are bilaterally patent and compressible seg mentally. There is no evidence of deep vein thrombosis on either side. Valvular competence appears intact within the p roximal deep venous systems bilaterally. The great saphenous veins appear bilaterally patent and compressible segmentall y. Ordering Physician: Octavio Rasmussen V Referring Physician: Connor Kohli Performed By: Mark Peña RVT
[2025-01-27 12:15] LABS: Hematocrit 40.3 % (40-54); Hemoglobin 13.1 g/dL (13.0-16.5); Immature Granulocytes Count 0.050 X10^3/uL (0.0-0.0); Mean Corp Hgb Conc 32.5 g/dL (32-36); Mean Corpuscular Volume 98.3 fL (80-94); Mean Platelet Vol. 10.2 fl (6.2-12.0); NRBC Flagged by Analyzer 0.2 % (0-5); Platelet Count 222 K/mm3 (150-450); RBC Distribution Width CV 15.9 % (11.6-14.6); RBC Distribution Width SD 55.6 fl (35.1-43.9); Red Blood Count 4.10 M/mm3 (4.6-6.2); White Blood Count 10.8 K/mm3 (4.4-11.0)
== END | disposition home or self-care (01) ==
PROVIDERS: PCP Family Medicine; Referring Provider Internal Medicine Pulmonary Disease; Visit Provider Internal Medicine Pulmonary Disease
DX: J84.10 Pulmonary fibrosis, unspecified (principal); R60.0 Localized edema
CPT/HCPCS: 36415; 85025; 93970

== ENCOUNTER → 2025-02-04 | Outpatient (CLI) | payer MEDICARE, OTHER, SELFPAY ==
--- NOTE | 2025-02-04 15:35 | RAD_ITS ---
PROCEDURE: SHOULDER MIN 2 VIEWS 02/04/2025 REASON FOR EXAM: SHOULDER PAIN TECHNIQUE: SHOULDER MIN 2 VIEWS Laterality: Right COMPARISON: None. FINDINGS: BONES: No acute fracture or focal osseous lesion. JOINTS: No dislocation. Mild arthritic changes of the glenohumeral joint with minimal marginal osteophytes. Preserved acromioclavicular joint. SOFT TISSUES: The soft tissues are unremarkable. RAD/Shoulder min 2 Views IMPRESSION: No acute osseous abnormality. Reading Location: [id number]
== END | disposition home or self-care (01) ==
LOC: MTRAD 15:33
PROVIDERS: PCP Family Medicine; Referring Provider Family Medicine; Visit Provider Family Medicine
DX: M25.511 Pain in right shoulder (principal)
CPT/HCPCS: 73030

== ENCOUNTER → 2025-02-10 | Outpatient (CLI) | payer MEDICARE, OTHER, SELFPAY ==
--- NOTE | 2025-02-10 11:30 | MRI_ITS ---
PROCEDURE: UPPER EXT JOINT ONLY(ROUTINE) 02/10/2025 REASON FOR EXAM: SEVERE (R) SHOULDER PAIN, DECREASED ROM DUE TO TRAUMA IN (R) SHOU TECHNIQUE: T1, T2, PD, MRI right shoulder) multiplanar and multisequence images were obtained without IV contrast administration. COMPARISON: COMPARISON: February 04, 2025 x-ray FINDINGS: Bone Marrow: There is no bony contusion or occult fracture. AC joint: There is moderate AC joint hypertrophy. There is widening of the AC joint to 0.5 cm with an effusion noted. There is disruption of the superior and inferior acromioclavicular ligaments. The conoid and trapezoid ligaments appear intact. There is no subluxation, consistent with a type 2 separation. There is a type 2 acromion. Rotator cuff: There is severe supraspinatus and infraspinatus muscular atrophy. There is moderate subscapularis muscular atrophy. There is a full-thickness, full width tear of the supraspinatus with 5 cm of retraction. There is a full-thickness, full width tear of the infraspinatus with 4.5 cm of retraction. There is a full-thickness, full width tear of the subscapularis with 3 cm of retraction. The teres minor appears intact. Effusion: There is a large joint effusion which extends into the subacromial subdeltoid bursa. Biceps tendon: The biceps tendon is absent from the upper biceps tendon groove and is avulsed. Labrum: There is a tear of the labrum from the 10 o'clock 2 o'clock position, including the biceps tendon anchor. Soft Tissues: There is edema throughout the deltoid muscle with a 1.8 by 0.9 cm intramuscular hematoma. Intramuscular edema is present in the trapezius without focal tear identified. MRI/Upper Ext Joint Only(Routine) IMPRESSION: There is moderate AC joint hypertrophy. There is widening of the AC joint to 0. 5 cm with an effusion noted. There is disruption of the superior and inferior acromioclavicular ligaments. T he conoid and trapezoid ligaments appear intact. There is no subluxation, consistent with a type 2 separation. There is severe supraspinatus and infraspinatus muscular atrophy. There is moderate subscapularis muscular atrophy. There is a full-thickness, full width tear of the supraspinatus with 5 cm of re traction. There is a full-thickness, full width tear of the infraspinatus with 4.5 cm of retraction. There is a full-thickness, full width tear of the subscapularis with 3 cm of re traction. There is a large joint effusion which extends into the subacromial subdeltoid b ursa. The biceps tendon is absent from the upper biceps tendon groove and is avulsed. There is a tear of the labrum from the 10 o'clock 2 o'clock position, including the biceps tendon anchor. There is edema throughout the deltoid muscle with a 1.8 by 0.9 cm intramuscular hematoma. Intramuscular edema is present in the trapezius without focal tear identified. Reading Location: [facility]
== END | disposition home or self-care (01) ==
LOC: OPMRI 10:40
PROVIDERS: PCP Family Medicine; Referring Provider Family Medicine; Visit Provider Family Medicine
DX: M25.511 Pain in right shoulder (principal)
CPT/HCPCS: 73221

== ENCOUNTER → 2025-02-25 | Outpatient (CLI) | payer MEDICARE, OTHER, SELFPAY ==
[2025-02-25 12:52] LABS: AST(SGOT) 27 U/L (<=37); Alanine Aminotransfer ALT/SGPT 18 U/L (<=46); Albumin, Serum 3.8 g/dL (3.4-4.8); Alkaline Phosphatase 48 U/L (40-129); Bilirubin, Direct 0.26 mg/dL (0.00-0.30); Globulin 2.5 g/dL (2.2-4.2)
== END | disposition home or self-care (01) ==
LOC: MTLAB 08:59
PROVIDERS: PCP Family Medicine; Referring Provider Internal Medicine Pulmonary Disease; Visit Provider Internal Medicine Pulmonary Disease
DX: J84.10 Pulmonary fibrosis, unspecified (principal)
CPT/HCPCS: 36415; 80076

== ENCOUNTER → 2025-04-14 | Outpatient (CLI) | payer MEDICARE, OTHER, SELFPAY ==
[2025-04-14 18:06] LABS: Hematocrit 40.3 % (40-54); Hemoglobin 12.9 g/dL (13.0-16.5); Immature Granulocytes Count 0.010 X10^3/uL (0.0-0.0); Mean Corp Hgb Conc 32.0 g/dL (32-36); Mean Corpuscular Volume 99.8 fL (80-94); Mean Platelet Vol. 11.2 fl (6.2-12.0); NRBC Flagged by Analyzer 0 % (0-5); Platelet Count 196 K/mm3 (150-450); RBC Distribution Width CV 14.7 % (11.6-14.6); RBC Distribution Width SD 52.7 fl (35.1-43.9); Red Blood Count 4.04 M/mm3 (4.6-6.2); White Blood Count 8.6 K/mm3 (4.4-11.0)
[2025-04-14 18:33] LABS: Anion Gap 11 (5-15); BUN 6 mg/dL (4-19); BUN/Creat Ratio 8.4 RATIO (10-20); Calcium,Total 8.4 mg/dL (7.6-11.0); Carbon Dioxide 24.2 mmol/L (21.0-32.0); Chloride 107 mmol/L (98-108); Glucose 117 mg/dL (70-99); Potassium 3.8 mmol/L (3.3-5.1)
== END | disposition home or self-care (01) ==
LOC: MTLAB 15:04
PROVIDERS: PCP Family Medicine; Referring Provider Family Medicine; Visit Provider Family Medicine
DX: D64.9 Anemia, unspecified (principal); F03.90 Unspecified dementia, unspecified severity, without behavioral disturbance, psychotic disturbance, mood disturbance, and anxiety
CPT/HCPCS: 36415; 80048; 85025

== ENCOUNTER → 2025-04-27 | Outpatient (CLI) | payer MEDICARE, OTHER, SELFPAY ==
[2025-04-27 10:44] LABS: AST(SGOT) 22 U/L (<=37); Alanine Aminotransfer ALT/SGPT 11 U/L (<=46); Albumin, Serum 3.5 g/dL (3.4-4.8); Alkaline Phosphatase 117 U/L (40-129); Anion Gap 10 (5-15); BUN 8 mg/dL (4-19); BUN/Creat Ratio 10.1 RATIO (10-20); Bilirubin, Direct 0.17 mg/dL (0.00-0.30); Calcium,Total 9.5 mg/dL (7.6-11.0); Carbon Dioxide 27.4 mmol/L (21.0-32.0); Chloride 101 mmol/L (98-108); Follicle Stimulating Hormone 12.2 mIU/mL; Globulin 3.6 g/dL (2.2-4.2); Glucose 135 mg/dL (70-99); Magnesium 1.9 mg/dL (1.5-2.2); Potassium 4.0 mmol/L (3.3-5.1); Vitamin D,25 Hydroxy 56.6 ng/mL (30-100)
[2025-05-02 15:07] LABS: PROLACTIN 28.3 ng/mL (3.6-25.2); Testosterone, % Free 2.70 % (1.50-4.20); Testosterone, Free 10.67 ng/dL (5.00-21.00)
== END | disposition home or self-care (01) ==
LOC: MTLAB 08:00
PROVIDERS: PCP Family Medicine; Referring Provider Internal Medicine Pulmonary Disease; Visit Provider Internal Medicine Pulmonary Disease
DX: E11.65 Type 2 diabetes mellitus with hyperglycemia (principal); E03.9 Hypothyroidism, unspecified; E55.9 Vitamin D deficiency, unspecified; E27.49 Other adrenocortical insufficiency; E83.42 Hypomagnesemia
CPT/HCPCS: 36415; 80053; 82248; 82306; 83001; 83002; 83036; 83735; 84146; 84402; 84403; 84443

== ENCOUNTER 2025-04-28 07:40 | Outpatient (RCR) | payer MEDICARE, OTHER, SELFPAY | END 2025-05-16 23:59 | disposition home or self-care (01) | LOC: WC 07:40 | PROVIDERS: PCP Family Medicine; Referring Provider Family Medicine; Visit Provider Nurse Practitioner | DX: Z09 Encounter for follow-up examination after completed treatment for conditions other than malignant neoplasm (principal) ==

== ENCOUNTER → 2025-05-11 | Outpatient (CLI) | payer MEDICARE, OTHER, SELFPAY ==
[2025-05-11 09:58] LABS: Hematocrit 44.8 % (40-54); Hemoglobin 14.3 g/dL (13.0-16.5); Immature Granulocytes Count 0.020 X10^3/uL (0.0-0.0); Mean Corp Hgb Conc 31.9 g/dL (32-36); Mean Corpuscular Volume 97.4 fL (80-94); Mean Platelet Vol. 10.2 fl (6.2-12.0); NRBC Flagged by Analyzer 0 % (0-5); Platelet Count 307 K/mm3 (150-450); RBC Distribution Width CV 14.4 % (11.6-14.6); RBC Distribution Width SD 52.0 fl (35.1-43.9); Red Blood Count 4.60 M/mm3 (4.6-6.2); White Blood Count 10.9 K/mm3 (4.4-11.0)
[2025-05-11 10:35] LABS: AST(SGOT) 49 U/L (<=37); Alanine Aminotransfer ALT/SGPT 31 U/L (<=46); Albumin, Serum 3.7 g/dL (3.4-4.8); Alkaline Phosphatase 215 U/L (40-129); Anion Gap 13 (5-15); BUN 11 mg/dL (4-19); BUN/Creat Ratio 12.2 RATIO (10-20); Calcium,Total 9.5 mg/dL (7.6-11.0); Carbon Dioxide 25.6 mmol/L (21.0-32.0); Chloride 101 mmol/L (98-108); Globulin 4.0 g/dL (2.2-4.2); Glucose 106 mg/dL (70-99); Potassium 3.9 mmol/L (3.3-5.1)
== END | disposition home or self-care (01) ==
LOC: MTLAB 08:42
PROVIDERS: PCP Family Medicine; Referring Provider Family Medicine; Visit Provider Family Medicine
DX: R63.4 Abnormal weight loss (principal)
CPT/HCPCS: 36415; 80053; 84443; 85025

== ENCOUNTER → 2025-05-14 | Outpatient (CLI) | payer MEDICARE, OTHER, SELFPAY ==
--- NOTE | 2025-05-14 11:26 | RAD_ITS ---
PROCEDURE: ABD INC DECUB AND/OR ERECT 05/14/2025 REASON FOR EXAM: ABD PAIN TECHNIQUE: Procedure Code: [id number] Modality: DX Procedure: ABD INC DECUB AND/OR ERECT COMPARISON: CT from 02/08/2019 FINDINGS: Bowel gas: There is a moderate amount of proximal colonic stool. No bowel obstruction. Calcifications: No pathologic calcifications. Bones: Fusion hardware is noted involving the lumbosacral junction region. Osseous structures are grossly intact. RAD/Abd Inc Decub and/or Erect IMPRESSION: No acute process. Reading Location[facility]
--- OUTSIDE RECORDS SUMMARY | 2025-05-14 11:46 | XMS RPT_ITS | CCD ---
Author Organization [facility] Care Team Providers Care Reimbursement Consultant Name Role Phone Emani SOMMERS, Audrey Keller Unavailable Unavailable Tu Tracy Unavailable Unavailable Tu Tracy Unavailable Unavailable Sapna Ortiz Unavailable Unavailable Audrey Joaquin RN Unavailable Unavailable Ghada Ireland Unavailable Unavailable IrelandGhada Unavailable Unavailable Fast, Colleen A Unavailable Fast, Colleen A Primary Care Provider [phone] Cayla SOMMERS, Rylee Kilgore Unavailable [phone] Dr. Armando Kohli Primary Care Provider 1([facility])[phone] Dr. Armando Kohli Referring Provider 1([facility])[phone] CHON Mckeon NP Attending Provider Dr. Armando Acevedo Attending Provider [phone] Dr. Armando Kohli Primary Care Provider 1([facility])[phone] Dr. Armando Kohli Referring Provider 1([facility])[phone] Mike WALDEN NP-Shruti Osorio Attending Provider Lorenzo DATA ENTRY SUPERVISOR, DATA ENTRY SUPERVISOR-C Anmol Paige Attending Provider Dr. Leora Singh Attending Provider 1([facility])[phone] Armando Kohli Primary Care Provider 1([facility])[phone] Dr. Armando Kohli Referring Provider 1([facility])[phone] Mike WALDEN NP-Shruti Osorio Attending Provider Dr. Armando Acevedo Attending Provider Lorenzo DATA ENTRY SUPERVISOR, WIN-C Anmol Paige Attending Provider 1([facility])[phone] Dr. Leora Singh Attending Provider Seun, Dr. Ryan Primary Care Provider Seun, Dr. Ryan Referring Provider Dr. Armando Acevedo Attending Provider Dr. Vamsi Story Attending Provider Elian, Dr. Cordova Attending Provider Seun, Dr. Ryan Primary Care Provider Seun, Dr. Ryan Referring Provider Dr. Vamsi Story Attending Provider Elian, Dr. Cordova Attending Provider Seun, Dr. Ryan Primary Care Provider Seun, Dr. Ryan Referring Provider Roof DATA ENTRY SUPERVISOR, DATA ENTRY SUPERVISOR-C Anmol Paige Attending Provider Dr. Tino Gamble Attending Provider Seun, Dr. Ryan Primary Care Provider Dr. Tino Gamble Attending Provider Dr. Tino Gamble Referring Provider Seun, Dr. Ryan Referring Provider Seun, Dr. Ryan Referring Provider Dr. Alyson Collier Attending Provider Dr. Armando Kohli Primary Care Provider Dr. Tino Gamble Attending Provider Dr. Tino Gamble Referring Provider Seun, Dr. Ryan Referring Provider Fast DO, Colleen A Unavailable Armando Kohli MD Primary Care Provider Unavailable Primary Care Provider Unavailchepe Kohli MD, Dr. Ryan Primary Care Provider Dr. Armando Kohli MD Referring Provider Dr. Alyson Clolier MD Attending Provider Seun MAY, Dr. Ryan Other Provider Tita Pimentel Attending Provider [phone] Tita Pimentel Referring Provider Nando MAY, Dr. Shields Other Provider Mavis MAY, Dr. Jiménez Attending Provider [phone] Mavis MAY, Dr. Jiménez Referring Provider Tammy ZAVALA, Dr. Dale Attending Provider [phone] Tammy ZAVALA, Dr. Dale Emergency Provider Mar ZAVALA, Dr. Casanova Attending Provider Mar ZAVALA, Dr. Casanova Emergency Provider Nando MAY, Dr. Shields Referring Provider Rianna MAY, Dr. Fallon Attending Provider NIRAV MELISSA Attending Provider [phone] NIRAV MELISSA Referring Provider [phone] Harjit MAY, Dr. Avinash Fink Admit Provider Harjit MAY, Dr. Avinash Fink Attending Provider [phone] Harjit MAY, Dr. Avinash Fink Referring Provider Grady MAY, Dr. Marjan Ballard Attending Provider [phone] Grady MAY, Dr. Marjan Ballard Referring Provider Dr. Maxwell Torres DO Attending Provider Dr. Maxwell Torres DO Referring Provider Seun MAY, Dr. Ryan Primary Care Provider [phone] Nando MAY, Dr. Shields Attending Provider Nando MAY, Dr. Shields Other Provider Seun MAY, Dr. Ryan Referring Provider Seun MAY, Dr. Ryan Primary Care Provider [phone] Chris MAY, Dr. Sawant Attending Provider Chris MAY, Dr. Sawant Referring Provider Seun MAY, Dr. Ryan Primary Care Provider Dr. Kaleb Quiroz DO Emergency Provider Seun MAY, Dr. Ryan Primary Care Provider Grady MAY, Dr. Marjan Ballard Attending Provider Grady MAY, Dr. Marjan Ballard Referring Provider Gabriella ZAVALA, Dr. Manuel Attending Provider Rylee Burgos Attending Provider Seun MAY, Dr. Ryan Primary Care Provider Grady MAY, Dr. Marjan Ballard Attending Provider Rylee Burgos Referring Provider Seun MAY, Dr. Ryan Primary Care Provider Janna ZAVALA, Dr. Moya Attending Provider Janna ZAVALA, Dr. Moya Referring Provider Seun MAY, Dr. Ryan Referring Provider Seun MAY, Dr. Ryan Other Provider Fast DO, Colleen A Unavailable Armando Kohli MD Primary Care Provider Grady MAY, Dr. Marjan Ballard Attending Provider Grady MAY, Dr. Marjan Ballard Referring Provider Seun MAY, Dr. Ryan Attending Provider Jose MAY, Dr. Gt Keller Attending Provider Seun MAY, Dr. Ryan Primary Care Physician Dr. Kaleb Quiroz DO Attending Physician Gabriella ZAVALA, Dr. Manuel Emergency Department Physi kwabena Rylee Burgos Attending Physician Seun MAY, Dr. Ryan Nurse Practitioner Janna ZAVALA, Dr. Moya Attending Physician Janna ZAVALA, Dr. Moya Referring Provider Grady MAY, Dr. Marjan Ballard Attending Physician Jose MAY, Dr. Gt Keller Attending Physician Seun MAY, Dr. Ryan Attending Physician Fast DO, Colleen A Unavailable Seun MAY, Armando Madrid Primary Care Provider Seun MAY, Armando Phillip Primary Care Provider ARMANDO KOHLI Primary Care Unavailable TEEPLES, ROGELIO LENORA Admitting Unavailable RALPHISINGER, LEORA Attending Unavailable KOHLIARMANDO RAMIREZ Primary Care Unavailable JAMIA HERNANDEZ Attending Unavailable TEEPLES, ROGELIO LENORA Admitting Unavailable KOHLIARMANDO RAMIREZ Primary Care Unavailable KOHLIARMANDO RAMIREZ Primary Care Unavailable TEEPLES, ROGELIO LENORA Admitting Unavailable RALPHISINGER, LEORA Attending Unavailable KOHLIARMANDO RAMIREZ Primary Care Unavailable TEEPLES, ROGELIO LENORA Admitting Unavailable ASTON TURK Attending Unavailable KOHLIARMANDO RAMIREZ Primary Care Unavailable TEEPLES, ROGELIO LENORA Admitting Unavailable ASTON TURK Attending Unavailable KOHLIARMANDO RAMIREZ Primary Care Unavailable JASPREET GUDINO Attending Unavailable TEEPLES, ROGELIO LENORA Admitting Unavailable KOHLIARMANDO RAMIREZ Primary Care Unavailable TEEPLES, ROGELIO LENORA Admitting Unavailable ASTON UTRK Attending Unavailable KOHLIARMANDO RAMIREZ Primary Care Unavailable ASTON TURK Attending Unavailable TEEPLES, ROGELIO LENORA Admitting Unavailable KOHLIARMANDO RAMIREZ Primary Care Unavailable APARNA VALLADARES Attending Unavailable TEEPLES, ROGELIO LENORA Admitting Unavailable KOHLIARMANDO RAMIREZ Primary Care Unavailable DARIER, LEORA Attending Unavailable TEEPLES, ROGELIO LENORA Admitting Unavailable KOHLIARMANDO RAMIREZ Primary Care Unavailable APARNA VALLADARES Attending Unavailable TEEPLES, ROGELIO LENORA Admitting Unavailable KOHLIARMANDO RAMIREZ Primary Care Unavailable TEEPLES, ROGELIO LENORA Admitting Unavailable RALPHISINGER, LEORA Attending Unavailable KOHLIARMANDO RAMIREZ Primary Care Unavailable APARNA VALLADARES Attending Unavailable TEEPLES, ROGELIO LENORA Admitting Unavailable KOHLI, ARMANDO MARJAN Primary Care Unavailable JAMIA HERNANDEZ Attending Unavailable TEEPLES, ROGELIO LENORA Admitting Unavailable KOHLI, ARMANDO MARJAN Primary Care Unavailable APARNA VALLADARES Attending Unavailable TEEPLES, ROGELIO LENORA Admitting Unavailable TEEPLES, ROGELIO LENORA Admitting Unavailable KOHLI, ARMANDO PHILLIP Primary Care Unavailable APARNA VALLADARES Attending Unavailable KOHLI, ARMANDO PHILLIP Primary Care Unavailable JAMIA HERNANDEZ Attending Unavailable TEEPLES, ROGELIO LENORA Admitting Unavailable KOHLI, ARMANDO MARJAN Primary Care Unavailable JAMIA HERNANDEZ Attending Unavailable TEEPLES, ROGELIO LENORA Admitting Unavailable KOHLI, ARMANDO MARJAN Primary Care Unavailable TEEPLES, ROGELIO LENORA Admitting Unavailable RAPHAEL PEACOCK Attending Unavailable KOHLI, ARMANDO PHILLIP Primary Care Unavailable JASPREET GUDINO Attending Unavailable TEEPLES, ROGELIO LENORA Admitting Unavailable DOLLY MORTON Attending Unavailab SRIDEVI Sunshine Admitting Unavailabl e TEEPLES, ROGELIO LENORA Consulting Unavailable TEEPLES, ROGELIO LENORA Admitting Unavailable KOHLI, ARMANDO PHILLIP Primary Care Unavailable LEORA HARRIS Attending Unavailable KOHLI, ARMANDO PHILLIP Primary Care Unavailable APARNA VALLADARES Attending Unavailable TEEPLES, ROGELIO LENORA Admitting Unavailable TEEPLES, ROGELIO LENORA Admitting Unavailable KOHLI, ARMANDO PHILLIP Primary Care Unavailable JAMIA HERNANDEZ Attending Unavailable TEEPLES, ROGELIO LENORA Admitting Unavailable KOHLI, ARMANDO PHILLIP Primary Care Unavailable ASTON TURK Attending Unavailable TEEPLES, ROGELIO LENORA Admitting Unavailable KOHLI, ARMANDO PHILLIP Primary Care Unavailable JAMIA HERNANDEZ Attending Unavailable KOHLI, ARMANDO PHILLIP Primary Care Unavailable TEEPLES, ROGELIO LENORA Admitting Unavailable LEORA HARRIS Attending Unavailable KOHLI, ARMANDO PHILLIP Primary Care Unavailable TEEPLES, ROGELIO LENORA Admitting Unavailable JAMIA HERNANDEZ Attending Unavailable DORETHA BRANDON Attending Unavailable DORETHA BRANDON Referring Unavailable KOHLI, ARMANDO Madrid Primary Care Unavailable KOHLI, ARMANDO Madrid Primary Care Unavailable DORETHA BRANDON Referring Unavailable MAXINE MOCK Attending Unavailable KOHLI, ARMANDO Madrid Primary Care Unavailable NRIAV MELISSA Attending Unavailable KOHLI, ARMANDO Madrid Referring Unavailable DORETHA BRANDON Attending Unavailable DORETHA BRANDON Referring Unavailable KOHLI, ARMANDO Madrid Primary Care Unavailable DORETHA BRANDON Attending Unavailable KOHLI, ARMANDO R Primary Care Unavailable PETRULISNIRAV Referring Unavailable KOHLI, ARMANDO R Primary Care Unavailable TEE OLIVEIRA Attending Unavailable GALINDO, SANDHYA Referring Unavailable BRANDON, DORETHA Machuca Referring Unavailable KOHLI, ARMANDO R Primary Care Unavailable BRANDON, DORETHA Machuca Attending Unavailable BRANDON, DORETHA Machuca Referring Unavailable KOHIL, ARMANDO R Primary Care Unavailable BRANDON, DORETHA Machuca Attending Unavailable KOHLI, ARMANDO R Primary Care Unavailable PETRULIS, NIRAV Crow Attending Unavailable KOHLI, ARMANDO R Referring Unavailable KOHLI, ARMANDO R Primary Care Unavailable PETRULIS, NIRAV Crow Attending Unavailable PETRULIS, NIRAV Crow Referring Unavailable KOHLI, ARMANDO R Primary Care Unavailable PETRULIS, NIRAV Crow Attending Unavailable PETRULIS, NIRAV Crow Referring Unavailable KOHLI, ARMANDO R Primary Care Unavailable PETRULIS, NIRAV Crow Attending Unavailable KOHLI, ARMANDO R Referring Unavailable KOHLI, ARMANDO R Primary Care Unavailable PETRULIS, NIRAV Crow Referring Unavailable PETRULIS, NIRAV Crow Attending Unavailable BRANDON, DORETHA Machuca Attending Unavailable KOHLI, ARMANDO R Primary Care Unavailable SELF, SELF Referring Unavailable BRANDON, DORETHA Machuca Referring Unavailable KOHLI, ARMANDO R Primary Care Unavailable BRYAN OLMOS Attending Unavailable COLBRYAN MIXON Admitting Unavailable BRANDON, DORETHA Machuca Attending Unavailable BRANDON, DORETHA Machuca Admitting Unavailable KOHLI, ARMANDO R Primary Care Unavailable CONSULT, PULMONOLOGY Consulting Unavailable CONSULT, CARDIOLOGY Consulting Unavailable BRANDON, DORETHA Machuca Admitting Unavailable BRANDON, DORETHA Machuca Referring Unavailable KOHLI, ARMANDO R Primary Care Unavailable BRANDON, DORETHA Machuca Attending Unavailable SibiliaMarjan V Referring Unavailable Sibilia, Marjan Ballard Attending Unavailable Kohli, Armando Primary Care Unavailable Kohli, Armando Referring Unavailable Kohli, Armando Primary Care Unavailable Kohli, Armando Attending Unavailable NandoAlyson chambers Consulting Unavailable Tita Pimentel Attending Unavailable Tita Pimentel Referring Unavailable Kohli, Armando Primary Care Unavailable Kohli, Armando Consulting Unavailable WieteMaxwell hudson Attending Unavailable WietechaMaxwell Referring Unavailable Kohli, Armando Primary Care Unavailable Kohli, Armando Consulting Unavailable JaheteMaxwell hudson Attending Unavailable Wietecha, Maxwell Referring Unavailable Kohli, Armando Primary Care Unavailable Kohli, Armando Primary Care Unavailable Wietecha, Maxwell Referring Unavailable WietechaMaxwell Attending Unavailable Edilberto Manuel Attending Unavailable Kohli, Armando Primary Care Unavailable Kohli, Armando Primary Care Unavailable Sibilia, Marjan Ballard Attending Unavailable Kohli, Armando Referring Unavailable NandoAlyson Attending Unavailable Nando, Alyson Referring Unavailable Kohli, Armando Primary Care Unavailable Kohli, Armando Referring Unavailable Kohli, Armando Primary Care Unavailable Kohli, Armando Attending Unavailable Kohli, Armando Referring Unavailable Kohli, Armando Primary Care Unavailable Kohli, Armando Attending Unavailable MCGRESARAH MAYO Attending Unavailable MCGREAL, SARAH Referring Unavailable Kohli, Armando Primary Care Unavailable Sibilia, Marjan V Referring Unavailable Sibilia, Marjan V Attending Unavailable Kohli, Armando Primary Care Unavailable Sibilia, Marjan V Referring Unavailable Sibilia, Marjan V Attending Unavailable Kohli, Armando Primary Care Unavailable Kohli, Armando Primary Care Unavailable Wietecha, Maxwell Attending Unavailable Wietecha, Maxwell Referring Unavailable Kohli, Armando Primary Care Unavailable Kaleb Quiroz Attending Unavailable Kohli, Armando Primary Care Unavailable Chito Munoz Attending Unavailable Kohli, Armando Primary Care Unavailable Sailors, Jese Attending Unavailable Sailors, Jese Referring Unavailable Sibilia, Marjan V Attending Unavailable Sibilia, Marjan V Referring Unavailable Kohli, Armando Primary Care Unavailable Sibilia, Marjan V Referring Unavailable Sibilia, Marjan V Attending Unavailable Kohli, Armando Primary Care Unavailable Avinash Lombardi Admitting Unavailable Harjit, Avinash Fink Attending Unavailable HarjitAvinash Referring Unavailable Kohli, Armando Primary Care Unavailable Tino Gamble Attending Unavailable Tino Gamble Referring Unavailable Kohli, Armando Primary Care Unavailable Rylee Burgos Attending Unavail able Rylee Burgos Referring Unavail able Kohli, Armando Primary Care Unavailable Nando, Alyson Consulting Unavailable Nando, Alyson Referring Unavailable Leeanne Blanca Attending Unavailabl e Kohli, Armando Primary Care Unavailable Leeanne Blanca Attending Unavailabl e Kohli, Armando Primary Care Unavailable Kohli, Armando Referring Unavailable Kohli, Armando Primary Care Unavailable Rylee Burgos Attending Unavail able Nando, Alyson Attending Unavailable Kohli, Armando Primary Care Unavailable Kohli, Armando Referring Unavailable Kohli, Armando Referring Unavailable Kohli, Armando Primary Care Unavailable Kohli, Armando Attending Unavailable MCGRESARAH MAYO Attending Unavailable MCGREAL, SARAH Referring Unavailable Kohli, Armando Primary Care Unavailable Sibilia, Marjan V Referring Unavailable Sibilia, Marjan V Attending Unavailable Tita Pimentel Consulting Unavailable Kohli, Armando Primary Care Unavailable Kristen Day NP Attending Unavailable Kohli, Armando Primary Care Unavailable Kohli, Armando Referring Unavailable Allergies Allergy Classification Reported Allergen(s) Allergy Type Date of Onset Reaction(s) Facility (8 sources) acetaminophen drug allergy [address] [facility] Work Phone: (8 sources) HYDROmorphone drug allergy 3 [facility] Work Phone: (16 sources) penicillin drug allergy 3 Hives [facility] Work Phone: [phone] (8 sources) CANT RECALL drug allergy 3 [facility] Work Phone: [phone] (3 sources) Acetaminophen; Translations: [ACETAMINOPHEN] Drug Allergy 5 [facility] (15 sources) HYDROmorphone Drug Allergy 3 Confusion [facility] (8 sources) Penicillins; Translations: [PENICILLINS] Propensity to adverse reactions to drug 5 Hives, Rash [facility] (20 sources) Acetaminophen Drug Allergy 5 Anaphylaxis [facility] (20 sources) HYDROmorphone; Translations: [hydromorphone HCl] Drug Allergy 1 Unknown, Other [facility] Comment on above: makes me feel crazy (20 sources) Penicillins Allergy to substance 2 [facility] Comment on above: kidney shut down (14 sources) Acetaminophen Drug Allergy 3 [facility] (14 sources) Penicillins Propensity to adverse reactions to drug 3 Hiv, Rash [facility] (1 source) Penicillins Propensity to adverse reactions 5 [facility] Work Phone: (2 sources) Penicillins Propensity to adverse reactions to drug [address] [facility] (1 source) Acetaminophen Drug Allergy 5 [facility] (1 source) Penicillins Drug allergy (disorder) 5 [facility] Medications Current Medications Medication Drug [...] 0.2 ml adalimumab 50 mg/ml prefilled syringe (20 sources) Tumor Necrosis Factor Ruba Start: 10-21-2018 Adalimumab (Humira) 10 mg/0.2 mL syringe kit Active 40 MG SC every 2 weeks October 20, 2018 11:00pm End: 03-06-2025 Adalimumab (HUMIRA) 10 MG/0. 1ML Prefilled Syringe Kit Inject under the skin. 03/06/2025 Discontinued (Stop Taking at Discharge) carbidopa 25 mg / levodopa 100 mg oral tablet (8 sources) Aromatic Amino Acid Decarboxylation Inhibitor, Aromatic Amino Acid Start: 04-01-2025 End: 05-07-2025 take 1 tablet by mouth three times daily Carbidopa-levodopa 25-100 MG per tablet Take 1 tablet by mouth Three times a day. 04/07/2025 05/07/2025 Active Start: 03-30-2025 End: 04-01-2025 take 1 tablet by mouth once daily at lunch 1 tablet, Oral, Daily with lunch, First dose (after last modification) on Sat03/30/25 at 1200, Administer at least 30 minutes before or 1 hour after meals. May administer with low/no protein snack to decrease GI upset. Avoid high protein (0.8gm/kg) diet. No recommendation to hold tube feeds. Flush tube with 30mL of water before and after adminstration. Start: 03-29-2025 End: 04-01-2025 take 0.5 tablet by mouth twice daily after mealtime 0.5 tablet, Oral, 2 times daily, First dose on Sat03/29/25 at 1800, Administer at least 30 minutes before or 1 hour after meals. May administer with low/no protein snack to decrease GI upset. Avoid high protein (0.8gm/kg) diet. No recommendation to hold tube feeds. Flush tube with 30mL of water before and after adminstration. Start: 03-25-2025 End: 03-29-2025 take 0.5 tablet by mouth three times daily after mealtime 0.5 tablet, Oral, 3 times daily, First dose on [facility] 03/25/25 at 0900, Administer at least 30 minutes before or 1 hour after meals. May administer with low/no protein snack to decrease GI upset. Avoid high protein (0.8gm/kg) diet. No recommendation to hold tube feeds. Flush tube with 30mL of water before and after adminstration. cholecalciferol 0.025 mg ora l capsule (20 sources) Vitamin D Start: 05-05-2018 take 5 capsules by m outh once daily Start: 05-05-2018 take 5000 [IU] by mo uth once daily Cholecalciferol (Vitamin D3) Active 5000 UNIT PO DAILY May 05, 2018 1:00am Start: 04-10-2013 End: 05-05-2013 take 2 tablets by mouth once daily VITAMIN D 2000 UNIT TABS Two tablets by mouth daily CHOLECALCIFEROL [id number] Nirav Mcgill RN End: 03-06-2025 take 2 capsules by mouth at bedtime Vitamin D3 2000 UNITS PO CAPS Indications: Lumbar radiculopathy , Displacement of lumbar intervertebral disc without myelopathy , Acquired spondylolisthesis , Lumbar stenosis with neurogenic claudication , Back pain Take 2 capsules by mouth at bedtime. 03/06/2025 Discontinued (Stop Taking at Discharge) take 2 capsules by m outh once daily at bedtime Cholecalciferol, Vitamin D3, 50 mcg (2,000 unit) cap Take 2 capsules by mouth daily at bedtime. Active 24 hr dapagliflozin 5 mg / metFORMIN hydrochloride 1000 mg extended release oral tablet (14 sources) Biguanide, Sodium-Glucose Cotransporter 2 Inhibitor Start: 11-29-2024 Disability Placard (20 sources) Start: 11-29-2022 Disability Rikki card Active 0 .Route .MEDSUPPLY 1 0 November 29, 2022 12:00am Expiration: 11/29/2025 Start: 11-29-2022 Disability Rikki card Active 0 .Route .MEDSUPPLY November 28, 2022 11:00pm Expiration: 11/29/2025 Start: 11-29-2022 Disability Rikki card Active 0 .Route .MEDSUPPLY 1 November 29, 2022 12:00am Expiration: 11/29/2025 ergocalciferol 1.25 mg oral capsule (6 sources) Provitamin D2 Compound Start: 03-25-2025 End: 04-07-2025 Ergocalciferol 14863 units capsule Take 1 capsule by mouth every 7 days. 03/25/2025 Active Start: 03-25-2025 Start: 03-11-2025 End: 03-23-2025 End: 05-12-2024 ergocalciferol 30641 units C ap Take 1,000 Units by mouth once a week. 05/12/2024 Discontinued (Therapy completed) finasteride 5 mg oral tablet (20 sources) 5-alpha Reductase Inhibitor Start: 10-12-2016 End: 03-06-2025 take 1 tablet by mouth once daily glimepiride 4 mg oral tablet (20 sources) Sulfonylurea Start: 11-29-2024 take 1 tablet by mouth once daily Start: 05-24-2024 End: 07-15-2024 Glimepiride 1 mg tablet Disc ontinued PO May 24, 2024 1:00am July 15, 2024 11:02am Start: 12-02-2023 End: 11-29-2024 take 1 tablet by mouth once daily Glimepiride 2 mg tablet Discontinued 2 mg PO DAILY December 02, 2023 12:00am November 29, 2024 6:11pm Start: 06-14-2023 End: 03-15-2025 Start: 05-16-2023 End: 12-02-2023 take 2 tablets by mouth once daily Glimepiride 1 mg tablet Discontinued 2 mg PO DAILY May 16, 2023 2:06pm December 02, 2023 10:53am diabetes Start: 05-16-2023 take 2 mg by mouth once daily Glimepiride Active 2 MG PO DAILY May 16, 2023 2:06pm Start: 09-28-2019 End: 05-16-2023 take 1 tablet by mouth once daily Glimepiride 1 mg tablet Discontinued 1 mg PO DAILY September 28, 2019 12:00am May 16, 2023 2:07pm diabetes 12 hr guaiFENesin 600 mg extended release oral tablet (20 sources) Start: 03-14-2025 End: 04-07-2025 take 1 tablet by mouth every twelve hours guaiFENesin 600 MG Tab SR 12 HR tablet SR Take 1 tablet by mouth every 12 hours. 03/23/2025 Active Start: 12-30-2019 End: 04-20-2020 take 1 tablet by mouth twice daily Guaifenesin 1,200 MG tablet Discontinued 1200 mg PO TWICE A DAY 14 0 December 30, 2019 12:00am April 20, 2020 3:47pm Left AFO (13 sources) Start: 09-30-2023 Left AFO Activ e 0 .Route .MEDSUPPLY 1 September 30, 2023 12:00am Left foot drop Foot drop, left foot Left foot drop (M21.372) As directed Start: 09-30-2023 Left AFO Activ e 0 .Route .MEDSUPPLY 1 September 30, 2023 12:00am As directed lovastatin 20 mg oral tablet (1 source) HMG-CoA Reductase Inhibitor Start: 08-13-2008 LOVASTATIN 20 MG TAB Take one(1) tablet two(2) times daily. 0 08/13/2008 Active metoprolol tartrate 100 mg oral tablet (20 sources) beta-Adrenergic Ruba Start: 03-23-2025 take 0.5 tablet by mouth twice daily Metoprolol 100 MG tab regular release Take 0.5 tablets by mouth 2 times daily. 03/23/2025 Active Start: 03-13-2025 End: 04-07-2025 take 50 mg by mouth twice daily 50 mg, Oral, 2 times d kofiy, First dose (after last modification) on Sat03/23/25 at 1800, Hold for SBP Start: 12-11-2024 End: 03-23-2025 Start: 11-08-2021 End: 12-11-2024 take 1 tablet by mouth twice daily Metoprolol Tartrate 100 mg tablet Discontinued 100 mg PO TWICE A DAY 180 May 04, 2024 10:01am December 11, 2024 2:59pm Start: 10-25-2021 End: 11-08-2021 take 2 tablets [...] 75 mg PO TWICE A DAY 270 3 June 23, 2019 10:05am December 29, 2019 8:39pm Start: 07-16-2017 End: 10-25-2021 take 75 mg by mouth twice daily Metoprolol Tartrate Di scontinued 75 MG PO TWICE A DAY 180 July 05, 2021 9:04am October 25, 2021 2:58pm Start: 10-18-2013 End: 03-15-2025 take 3 tablets by mouth twice daily [...] tablet by mouth twice daily METOPROLOL TARTRATE [id number] Rylee Singh PA-C Start: 04-27-2013 take 1 tablet by ivan th twice daily METOPROLOL TARTRATE 100 MG TABS One tablet by mouth twice daily METOPROLOL TARTRATE [id number] Rylee Singh PA-C Start: 04-27-2013 METOPROLOL TAR TRATE 50 MG TABS One and one half tablet by mouth twice daily METOPROLOL TARTRATE [id number] Rylee Singh PA-C Mounjaro 10 MG/0.5ML Solution Auto-injector (3 sources) Mounjaro 10 MG/0 .5ML Solution Auto-injector Inject 10 mg as directed once a week. Active Multiple Vitamin (Multi-Vitamins) tablet (2 sources) Start: 03-23-20 take 1 tablet by mouth once daily Multiple Vitamin (Multi-Vitamins) tablet Take 1 tablet by mouth daily. 03/23/2025 Active NINTEDANIB, BIBF 1120,/PLACEBO, [id number], 150 MG capsule (2 sources) take 1 capsule by mouth every twelve hours NINTEDANIB, BIBF 1120,/PLACEBO, [id number], 150 MG capsule Take 1 capsule by mouth every 12 hours. Active 24 hr oxybutynin chloride 10 mg extended release oral tablet (20 sources) Cholinergic Muscarinic Antagonist Start: 05-20-20 oxybutynin ER (DITROPAN XL) 10 mg 24 hr tablet 05/20/2024 Active Start: 05-21-2022 take 1 tablet by ivan th twice daily Start: 05-21-2022 take 1 tablet by ivan th once daily in the evening Oxybutynin Chloride 10 mg tablet extended release 24hr Active 10 mg PO EVERY EVENING May 21, 2022 1:00am Start: 09-28-2019 End: 03-13-2022 take 1 tablet by mouth once daily Oxybutynin Chloride 10 mg tablet extended release 24hr Discontinued 10 mg PO DAILY September 28, 2019 12:00am March 13, 2022 11:04am overactive bladder Start: 04-10-2013 End: 10-12-2016 take 1 tablet by mouth at bedtime DITROPAN XL 10 MG [id number] One tablet by mouth at bedtime. OXYBUTYNIN CHLORIDE [id number] Rylee Singh PA-C Start: 04-10-2013 End: 10-12-2016 take 1 tablet by mouth at bedtime DITROPAN XL 10 MG [id number] One tablet by mouth at bedtime. OXYBUTYNIN CHLORIDE [id number] Rylee Singh PA-C Start: 04-10-2013 take 1 tablet by ivan th at bedtime DITROPAN XL 10 MG [id number] One tablet by mouth at bedtime. OXYBUTYNIN CHLORIDE [id number] Nirav Crow Artem SOMMERS End: 03-15-2025 polyethylene glycol [id number] mg powder for oral solution (6 sources) Osmotic Laxative Start: 03-23-2025 take 17 g by mouth every twelve hours as needed Polyethylene glycol 17 g Pack packet Take 1 packet by mouth every 12 hours as needed for Constipation. 03/23/2025 Active Start: 03-12-2025 End: 04-07-2025 17 g, Oral, Daily, First dos e on Sat03/24/25 at 1115 predniSONE 10 mg oral tablet (20 sources) Corticosteroid Start: 11-29-2024 take 1 tablet by ivan th three times daily Start: 01-02-2006 PREDNISONE 1 M G TAB Take 2 tabs at HS with a 5mg tab 0 01/02/2006 Active Start: 06-26-2005 End: 05-12-2024 take 1 tablet by mouth once daily PREDNISONE 5 MG TABS One tablet by mouth daily PREDNISONE [id number] Rylee Singh PA-C sennosides, intermediate 8.6 mg oral tablet (6 sources) Start: 03-14-2025 End: 03-23-2025 take 1 tablet by mouth every twelve hours as needed Senna 8.6 MG tablet Take 1 tablet by mouth every 12 hours as needed for Constipation. 03/23/2025 Active Start: 03-12-2025 End: 03-14-2025 Start: 03-06-2025 End: 03-06-2025 take 8.6 mg by mouth once daily 8.6 mg, Oral, DAILY, First dose on Sat03/06/25 at 0900, Until Discontinued Tirzepatide (1 source) Start: 11-29-2024 Tirzepatide (Bryn) 7.5 mg/0.5 mL pen injector (9 sources) Start: 11-29-2024 Tirzepatide (Rosa dias) 7.5 mg/0.5 mL pen injector Active 7.5 mg SC EVERY WEEK November 29, 2024 12:00am PT TAKES ON SATURDAYS TRULICITY 3 mg/0.5 mL pen injector (1 source) Start: 05-19-2024 TRULICITY 3 mg /0.5 mL pen injector 05/19/2024 Active vitamin e 180 mg oral capsule (5 sources) Start: 03-23-2025 End: 04-07-2025 take 1 capsule by mouth once daily vitamin E 400 units capsule Take 1 capsule by mouth daily. 03/23/2025 Active Start: 03-12-2025 End: 03-23-2025 (1 source) (1 source) (1 source) Start: 03-23-2025 Completed/Discontinued Medications Medication Drug Class(es) Dates Sig (Normalized) Sig (Original) Adalimumab (Humira) 10 mg/0.2 mL syringe kit (20 sources) Start: 10-21-2018 End: 05-24-2024 Adalimumab (Humira) 10 mg/0.2 mL syringe kit Discontinued 40 mg SC every 2 weeks October 21, 2018 12:00am May 24, 2024 4:44pm arthritis Start: 10-21-2018 End: 05-24-2024 Adalimumab (Humira) 10 mg/0. 2 mL syringe kit Discontinued 40 mg SC [...] NEEDED as needed for Sob &/Or Wheezing 1 December 30, 2019 9:10am October 26, 2020 1:24pm Start: 12-30-2019 End: 10-26-2020 take 1 puff(s) by inhalation every four hours as needed Albuterol Sulfate Discontinued 2 PUFF IH EVERY 4 HOURS NEEDED December 30, 2019 9:10am October 26, 2020 1:24pm aluminum hydroxide 40 mg/ml / magnesium hydroxide 40 mg/ml / simethicone 4 mg/ml oral suspension (1 source) Start: 03-11-2025 End: 03-23-2025 take 30 mL by mouth every six hours as needed amLODIPine 10 mg / benazepril hydrochloride 20 mg oral capsule (20 sources) Dihydropyridine Calcium Channel Ruba, Angiotensin Converting Enzyme Inhibitor Start: 04-10-2013 take 1 tablet by mouth once daily LOTREL 10-20 MG CAPS One tablet by mouth daily AMLODIPINE BESY-BENAZEPRIL HCL [id number] Nirav Mcgill RN Start: 04-10-2013 End: 05-05-2013 take 1 tablet by mouth once daily LOTREL 10-20 MG CAPS One tablet by mouth daily AMLODIPINE BESY-BENAZEPRIL HCL [id number] Letitia Wing RN Start: 09-26-2005 End: 03-25-2015 take 10-20 mg by mouth once daily AMLODIPINE BESY-BENAZEPRIL HCL 10-20 MG CAPS One tablet by mouth daily AMLODIPINE BESY-BENAZEPRIL HCL [id number] Letitia Wing RN End: 05-12-2024 take 1 capsule by mouth at bedtime amlodipine-benazepril 10-20 MG PO CAPS Indications: Lumbar radiculopathy , Displacement of lumbar intervertebral disc without myelopathy , Acquired spondylolisthesis , Lumbar stenosis with neurogenic claudication , Back pain take 1 Cap by mouth at bedtime. 05/12/2024 Discontinued ascorbic acid 500 mg oral tablet (20 sources) Start: 03-24-2025 End: 04-07-2025 take 250 mg by mouth once daily 250 mg, Oral, Daily, First dose (after last modification) on Sat03/24/25 at 0900 Start: 03-12-2025 End: 03-23-2025 take 1 tablet by mouth once daily Ascorbic Acid 250 MG tablet Take 1 tablet by mouth daily. 03/23/2025 Active Start: 04-16-2013 End: 05-05-2013 take 1 tablet by mouth twice daily VITAMIN C 1000 MG TABS One tablet by mouth twice daily ASCORBIC ACID [id number] Letitia Wing RN Start: 04-10-2013 take 1 tablet by ivan th once daily VITAMIN C 1000 MG TABS One tablet by mouth daily ASCORBIC ACID [id number] Nirav Mcgill RN End: 05-12-2024 take 2 tablets by mouth at bedtime ascorbic acid 500 MG PO TABS take 1,000 mg by mouth at bedtime. 05/12/2024 Discontinued take 2 tablets by mo uth at bedtime ascorbic acid 500 MG PO TABS take 1,000 mg by mouth at bedtime. 0 Active aspirin 81 mg chewable tablet (20 sources) Nonsteroidal Anti-inflammatory Drug Start: 03-12-2025 End: 03-23-2025 Start: 03-06-2025 End: 03-23-2025 Start: 04-23-2013 End: 05-12-2024 take 1 tablet by mouth at bedtime Aspirin 81 MG tablet,chewable Discontinued 81 mg PO AT BEDTIME April 23, 2013 1:00am December 02, 2023 10:52am [facility] Start: 04-16-2013 take 1 tablet by ivan th once daily ASPIR-81 81 MG TBEC One tablet by mouth daily ASPIRIN [id number] Armando Acevedo MD Start: 04-16-2013 take 1 tablet by ivan th once daily ASPIRIN EC 81 MG TBEC One tablet by mouth daily ASPIRIN [id number] Audrey Joaquin RN Start: 04-16-2013 take 1 tablet by ivan th once daily ASPIR-81 81 MG TBEC One tablet by mouth daily ASPIRIN [id number] Armando Acevedo MD atorvastatin 20 mg oral tablet (1 source) HMG-CoA Reductase Inhibitor Start: 03-24-2025 End: 04-07-2025 take 20 mg by mouth once daily 20 mg, Oral, Nightly, First dose (after last modification) on Sat03/24/25 at 2100 bacitracin zinc 0.5 unt/mg topical ointment (1 source) Start: 04-02-2025 End: 04-07-2025 apply 1 dose topically twice daily Topical, 2 times daily, First dose on Sat04/02/25 at 2100, Apply to scab on both nares bisacodyl 10 mg rectal suppository (3 sources) Stimulant Laxative Start: 03-19-2025 End: 03-23-2025 budesonide 0.25 mg/ml inhalation suspension (20 sources) Corticosteroid Start: 10-25-2021 End: 01-29-2022 take 0.5 mg by inhalation twice daily Budesonide 0.5 mg/2 mL suspension for nebulization Discontinued 0.5 mg INHALATION TWICE A DAY October 25, 2021 12:00am January 29, 2022 8:47am calcium (20 sources) Phosphate Binder, Calcium Start: 02-22-2014 End: 10-12-2016 CALCIUM 500 MG TABS 1000mg daily CALCIUM [id number] Rylee Singh PA-C Start: 02-22-2014 CALCIUM 500 MG TABS 1000mg daily CALCIUM [id number] Rylee Singh PA-C Start: 02-22-2014 End: 10-12-2016 CALCIUM 500 MG TABS 1000mg d aily CALCIUM [id number] Rylee Singh PA-C Start: 02-22-2014 CALCIUM 500 MG TABS 1000mg daily CALCIUM [id number] Rylee Singh PA-C Start: 04-16-2013 take 1 tablet by ivan once daily CALCIUM 500 MG TABS One tablet by mouth daily CALCIUM [id number] Armando Acevedo MD Start: 04-16-2013 End: 05-05-2013 take 1 tablet by mouth once daily CALCIUM 500 MG TABS One tablet by mouth daily CALCIUM [id number] Letitia Wing RN Start: 04-16-2013 take 1 tablet by ivan th once daily CALCIUM 500 MG TABS One tablet by mouth daily CALCIUM [id number] Armando Acevedo MD Start: 04-16-2013 End: 05-05-2013 take 1 tablet by mouth once daily CALCIUM 500 MG TABS One tablet by mouth daily CALCIUM [id number] Letitia Wing RN calcium carbonate 1250 mg or al tablet (12 sources) Start: 02-22-2014 End: 10-12-2016 CALCIUM 500 MG TABS 1000mg d aily CALCIUM [id number] Rylee Singh PA-C Start: 04-16-2013 End: 05-05-2013 take 1 tablet by mouth once daily CALCIUM 500 MG TABS One tablet by mouth daily CALCIUM [id number] Armando Acevedo MD Start: 04-10-2013 take 1 tablet by ivan th twice daily CALCIUM 600 600 MG TABS One tablet by mouth twice daily CALCIUM CARBONATE [id number] Nirav Mcgill RN Start: 04-10-2013 take 1 tablet by ivan th twice daily CALCIUM 600 600 MG TABS One tablet by mouth twice daily CALCIUM CARBONATE [id number] Nirav Mcgill RN Start: 04-10-2013 take 1 tablet by ivan th twice daily CALCIUM 600 600 MG TABS One tablet by mouth twice daily CALCIUM CARBONATE [id number] Nirav Mcgill RN calcium carbonate 150 mg / [...] 2013 12:00am May 05, 2018 2:35pm calcium chloride 0.0014 meq/ml / potassium chloride 0.004 meq/ml / sodium chloride 0.103 meq/ml / sodium lactate 0.028 meq/ml injectable solution (3 sources) Start: 03-11-2025 End: 03-14-2025 calcium citrate 1200 mg oral tablet (2 sources) End: 05-12-2024 take 1200 mg by mouth at bedtime Calcium Citrate (CITRACAL PO) take 1,200 mg by mouth at bedtime. 05/12/2024 Discontinued ceFAZolin 2000 mg injection (1 source) Cephalosporin Antibacterial Start: 03-11-2025 End: 03-12-2025 take 2 g intravenously every eight hours cefepime 2000 mg injection (3 sources) Cephalosporin Antibacterial Start: 03-14-2025 End: 03-19-2025 take 2 g intravenously every eight hours cefTRIAXone 2000 mg injection (1 source) Cephalosporin Antibacterial Start: 03-14-2025 End: 03-14-2025 take 2 g intravenously every twenty-four hours cilostazol 100 mg oral tablet (20 sources) Phosphodiesterase 3 Inhibitor Start: 10-18-2013 End: 05-12-2024 take 1 tablet by mouth twice daily Cilostazol 100 mg tablet Discontinued 0 .ROUTE .COMPLEX 180 July 13, 2022 9:41am November 22, 2022 1:57pm TAKE 1 TABLET BY MOUTH TWICE DAILY ciprofloxacin 500 mg oral tablet (13 sources) Quinolone Antimicrobial Start: 07-29-2024 End: 08-14-2024 take 1 tablet by mouth twice daily Ciprofloxacin Hcl (Cipro) 500 mg tablet Discontinued 500 mg PO TWICE A DAY 14 0 July 29, 2024 1:00am August 14, 2024 11:33am clopidogrel 75 mg oral tablet (20 sources) P2Y12 Platelet Inhibitor Start: 03-23-2025 End: 04-07-2025 take 75 mg by mouth once daily 75 mg, Oral, Daily, First dose (after last modification) on Sat03/24/25 at 0900 Start: 04-27-2013 End: 03-19-2024 take 1 tablet by mouth at bedtime Clopidogrel 75 mg tablet Discontinued 0 .ROUTE .COMPLEX 90 March 28, 2023 8:09am May 16, 2023 2:07pm TAKE 1 TABLET BY MOUTH AT BEDTIME FOR BLOOD THINNER cyclobenzaprine hydrochloride 10 mg oral tablet (6 sources) Muscle Relaxant Start: 03-29-2025 End: 04-07-2025 take 5 mg by mouth three times daily as needed for muscle spasms 5 mg, Oral, 3 times daily PRN, muscle spasms, Starting on Sat03/29/25 at 1500 Start: 03-23-2025 Start: 03-11-2025 End: 03-29-2025 take 1 tablet by mouth three times daily Cyclobenzaprine 10 MG tablet Take 1 tablet by mouth 3 times daily. 03/23/2025 Active prasterone 50 mg oral capsule (20 sources) Start: 02-22-2014 take 1 tablet by mouth once daily DHEA 50 MG CAPS One tablet by mouth daily PRASTERONE (DHEA) [id number] Rylee Singh PA-C Start: 08-21-2013 End: 02-22-2014 take 2 tablets by mouth once daily DHEA 25 MG TABS Two tablets by mouth daily PRASTERONE (DHEA) [id number] Rylee Singh PA-C dicyclomine hydrochloride 10 mg oral capsule (20 sources) Anticholinergic Start: 02-08-2019 End: 09-28-2019 take 2 capsules by mouth three times daily before mealtime as needed for pain Dicyclomine 10 MG capsule Discontinued 20 mg PO THREE TIMES DAILY BEFORE MEALS as needed for Pain 15 0 February 08, 2019 3:35pm September 28, 2019 10:31am Start: 02-08-2019 End: 09-28-2019 take 20 mg by mouth three times daily before mealtime Dicyclomine Discontinued 20 MG PO THREE TIMES DAILY BEFORE MEALS 15 February 08, 2019 3:35pm September 28, 2019 10:31am docusate sodium 100 mg oral capsule (1 source) Start: 03-05-2025 End: 03-06-2025 take 100 mg by mouth twice daily 100 mg, Oral, 2 TIMES DAILY, First dose on Sat03/05/25 at 1945, Until Discontinued docusate sodium 50 mg / sennosides, intermediate 8.6 mg oral tablet (1 source) Start: 03-24-2025 End: 04-07-2025 take 1 tablet by mouth once daily as needed for constipation 1 tablet, Oral, Nightly PRN, constipation, Starting on Sat03/24/25 at 1024, Hold for loose stools Do Not Crush or Chew if administering orally due to bitter taste. May be crushed if given via tube. donepezil hydrochloride 5 mg oral tablet (6 sources) Start: 03-11-2025 End: 04-07-2025 take 5 mg by mouth once daily 5 mg, Oral, Nightly, First dose (after last modification) on Sat03/23/25 at 2100 doxycycline hyclate 100 mg oral capsule (13 sources) Tetracycline-c lass Drug Start: 05-24-2024 End: 07-29-2024 take 1 capsule by mouth twice daily Doxycycline Hyclate 100 mg capsule Discontinued 100 mg PO TWICE A DAY 20 May 24, 2024 1:00am July 29, 2024 1:52pm Dulaglutide (20 sources) GLP-1 Receptor Agonist Start: 05-24-2024 End: 11-29-2024 Dulaglutide (Trulicity) 3 mg/0.5 mL pen injector Discontinued 3 mg SC May 24, 2024 1:00am November 29, 2024 4:21pm Start: 05-24-2024 Dulaglutide (T rulicity) 3 mg/0.5 mL pen injector Active 3 mg SC May 24, 2024 1:00am Start: 05-11-2024 End: 03-06-2025 Trulicity 1.5 MG/0.5ML Solut ion Auto-injector injection Inject 0.5 mL as directed once a week. 05/11/2024 03/06/2025 Discontinued (Stop Taking at Discharge) Start: 12-02-2023 End: 05-24-2024 Dulaglutide (Trulicity) 0.75 mg/0.5 mL pen injector Discontinued 0.75 mg SC EVERY WEEK December 02, 2023 12:00am May 24, 2024 4:44pm empagliflozin 10 mg oral tablet (20 sources) Sodium-Glucose Cotransporter 2 Inhibitor Start: 06-06-2018 End: 08-25-2024 take 1 tablet by mouth once daily Empagliflozin (Jardiance) 10 mg tablet Discontinued 10 mg PO DAILY January 29, 2022 12:00am May 16, 2023 2:05pm 24 hr empagliflozin 12.5 mg / metFORMIN hydrochloride 1000 mg extended release oral tablet (20 sources) Biguanide, Sodium-Glucose Cotransporter 2 Inhibitor Start: 03-04-2024 End: 03-15-2025 Start: 05-16-2023 End: 11-29-2024 Empagliflozin-Metformin (Syn jardy Xr) 12.5-1,000 mg tablet, IR - ER, biphasic 24hr Discontinued 2 {tbl} PO DAILY May 16, 2023 1:00am November 29, 2024 4:22pm Diabetes 0.4 ml enoxaparin sodium 100 mg/ml prefilled syringe (3 sources) Low Molecular Weight Heparin Start: 03-17-2025 End: 04-07-2025 inject 40 mg by subcutaneous injection once daily 40 mg, Subcutaneous, Daily, First dose (after last modification) on Sat03/24/25 at 0900, Administer in abdomen unless otherwise directed by prescriber. Notify physician if patient refuses. Start: 03-12-2025 End: 03-16-2025 ezetimibe 10 mg oral tablet (20 sources) Dietary Cholesterol Absorption Inhibitor Start: 03-11-2025 End: 04-07-2025 take 10 mg by mouth once daily 10 mg, Oral, Nightly, First dose (after last modification) on Sat03/23/25 at 2100 Start: 04-04-2005 End: 03-06-2025 take 1 tablet by mouth at bedtime Ezetimibe 10 mg tablet Discontinued 10 mg PO AT BEDTIME 90 3 December 30, 2023 9:20am December 21, 2024 7:47am to lower cholesterol ferrous sulfate 325 mg oral tablet (20 sources) Start: 03-24-2025 End: 04-07-2025 take 325 mg by mouth once daily at breakfast 325 mg, Oral, Daily with breakfast, First dose (after last modification) on Sat03/24/25 at 0800 Start: 03-23-2025 take 1 tablet by ivan th once daily ferrous sulfate 324 (65 Fe) MG Tab DR tablet Take 1 tablet by mouth daily. 03/23/2025 Active Start: 03-23-2025 Start: 03-12-2025 End: 03-23-2025 Start: 04-10-2013 End: 04-16-2013 take 1 tablet by mouth twice daily FERROUS SULFATE 325 (65 Fe) MG TABS One tablet by mouth twice daily FERROUS SULFATE [id number] Nirav Mcgill RN folic acid 0.4 mg oral tablet (20 sources) Start: 04-16-2013 End: 10-03-2015 take 1 mg by mouth once daily FOLIC ACID 400 MCG TABS (0.4mg) One tablet by mouth daily FOLIC ACID [id number] Armando Acevedo MD End: 05-12-2024 take 1 tablet by mouth at bedtime FOLIC ACID take 1 Tab by mouth at bedtime. 05/12/2024 Discontinued take 1 tablet by ivan th at bedtime FOLIC ACID take 1 Tab by mouth at bedtime. 0 Active Furosemide (5 sources) Loop Diuretic Start: 03-16-2025 End: 03-16-2025 Start: 03-15-2025 End: 03-15-2025 Start: 03-14-2025 End: 03-14-2025 Start: 03-14-2025 End: 03-14-2025 Start: 03-13-2025 End: 03-13-2025 gabapentin 300 mg oral capsule (20 sources) Anti-epileptic Agent Start: 03-23-2025 End: 04-07-2025 take 10 mL by mouth once daily 300 mg, Oral, Nightly, First dose (after last modification) on Sat03/23/25 at 2100, Capsule may be opened and contents placed down tube, flush tube with 10ml saline Start: 03-11-2025 End: 03-30-2025 take 1 capsule by mouth at bedtime Gabapentin 300 MG capsule Take 1 capsule by mouth at bedtime for 7 days. 7 capsule 03/23/2025 Active Start: 04-17-2024 End: 03-06-2025 take 1 capsule by mouth three times daily Gabapentin 300 MG capsule Take 1 capsule by mouth 3 (three) times a day. 04/17/2024 03/06/2025 Discontinued (Stop Taking at Discharge) Start: 01-30-2024 End: 11-29-2024 take 1 capsule by mouth twice daily Gabapentin 300 mg capsule Discontinued 300 mg PO TWICE A DAY January 30, 2024 12:00am November 29, 2024 4:22pm Gadopiclenol SOLN 1-25 mL (1 source) Start: 08-25-2024 End: 08-25-2024 1-25 mL, Intravenous, ONCE, 1 dose, On Sat08/25/24 at 0945 1 ml HYDROmorphone hydrochloride 1 mg/ml cartridge (1 source) Opioid Agonist Start: 03-11-2025 End: 03-11-2025 ibuprofen 400 mg oral tablet (1 source) Nonsteroidal Anti-inflammatory Drug Start: 03-24-2025 End: 04-07-2025 take 1 tablet by mouth every six hours as needed for headache and pain 400 mg, Oral, Every 6 hours PRN, headaches, mild pain, Starting on Sat03/24/25 at 1028, Give with Food Do Not Crush or Chew if administering orally due to bitter taste. May be crushed if given via tube. insulin lispro 100 unt/ml injectable solution (1 source) Insulin Analog Start: 03-23-2025 End: 04-07-2025 0-30 Units, Subcutaneous, 3 times daily before meals, First dose on Sat03/23/25 at 1800, * Dose should be given EITHER: No sooner than 10-15 minutes BEFORE a meal (Specific Prandial Doses or NO Prandial Dose - Corrective Scale ONLY) - OR - Immediately AFTER meal completed (Carb Counting Ratio), Prandial Insulin Dosing Method: NO Prandial Dose - Corrective Scale ONLY, Corrective Insulin Regimen (select desired scale to cover BG result): Insulin SENSITIVE Scale, Dose Reduction Threshold (at meals) for POC Blood Glucose less than or equal to: 80, For Downtime Calculator, use: Insulin SC MEALtime PREprandial insulin lispro (AdmeLOG,HumaLOG) injection 0-15 Units (1 source) Start: 03-23-2025 End: 04-07-2025 insulin lispro (AdmeLOG,HumaLOG) injection 0-15 Units Insulin lispro (HUMALOG) injection (1 source) Start: 03-05-2025 End: 03-06-2025 Insulin lispro (HUMALOG) injection levothyroxine sodium 0.05 mg oral tablet (20 sources) l-Thyroxine Start: 03-24-2025 End: 04-07-2025 take 30 mL by mouth once daily 50 mcg, Oral, Every morning before breakfast, First dose (after last modification) on Sat03/24/25 at 0600, Hold continuous tube feeds for at least 1 hour before until 1 hour after each dose. Flush tube with 30mL of water before and after administration. Tube feed rate may need adjusted to meet caloric needs. Start: 03-12-2025 End: 03-23-2025 Start: 03-06-2025 End: 03-06-2025 take 50 ug by mouth once daily 50 mcg, Oral, DAILY, Fi rst dose on Sat03/06/25 at 0900, Until Discontinued, Hold tube feedings for 1 hour before and 1 hour after medication administration. Start: 05-16-2023 take 1 tablet by ivan th once daily Levothyroxine 50 MCG tablet Take 1 tablet by mouth daily. 05/04/2024 Active linaclotide 0.145 mg oral capsule (1 source) Guanylate Cyclase-C Agonist End: 05-12-2024 Linaclotide (LINZESS) 145 MCG Cap capsule Take by mouth. 05/12/2024 Discontinued lisinopril 5 mg oral tablet (20 sources) Angiotensin Converting Enzyme Inhibitor Start: 03-30-2025 End: 04-02-2025 take 5 mg by mouth once daily 5 mg, Oral, Daily, First dose (after last modification) on Sat03/30/25 at 0900, Hold for SBP Start: 03-27-2025 End: 03-29-2025 take 10 mg by mouth once daily 10 mg, Oral, Daily, Fir st dose (after last modification) on Sat03/27/25 at 0900, Hold for SBP Start: 03-12-2025 End: 03-26-2025 take 20 mg by mouth once daily 20 mg, Oral, Daily, Fir st dose (after last modification) on Sat03/24/25 at 0900, Hold for SBP Start: 03-25-2015 End: 03-06-2025 take 1 tablet by mouth once daily for hypertension Lisinopril 20 mg tablet Discontinued 0 .ROUTE .COMPLEX 90 3 July 15, 2023 9:11am July 15, 2024 11:06am TAKE 1 TABLET BY MOUTH DAILY FOR HIGH BLOOD PRESSURE loperamide hydrochloride 2 mg oral capsule (1 source) Opioid Agonist Start: 03-30-2025 End: 04-07-2025 2 mg, Oral, 4 times daily PRN, diarrhea, Starting on Sat03/30/25 at 0239, Do not exceed 16 MG (8 caps)/ 24 HRS magnesium chloride 0.85463 meq/ml / potassium chloride 0.14395 meq/ml / sodium acetate 0.027 meq/ml / sodium chloride 0.0899 meq/ml / sodium gluconate 5.02 mg/ml injectable solution (2 sources) Start: 03-16-2025 End: 03-16-2025 50 ml magnesium sulfate 80 mg/ml injection (1 source) Start: 03-15-2025 End: 03-23-2025 melatonin 5 mg oral tablet (5 sources) Start: 03-24-2025 End: 04-07-2025 take 5 mg by mouth once daily as needed 5 mg, Oral, Nightly PRN, Insomnia, Starting on Sat03/24/25 at 1023 Start: 03-23-2025 take 2 tablets by mo uth at bedtime as needed Melatonin 3 MG tablet Take 2 tablets by mouth at bedtime as needed for Insomnia. 03/23/2025 Active Start: 03-23-2025 Start: 03-11-2025 End: 03-23-2025 meloxicam 10 mg oral capsule (1 source) [...] 1,000 mg tablet Di scontinued PO 60 30 0 October 21, 2018 12:00am September 28, 2019 10:33am Start: 10-21-2018 End: 09-28-2019 Metformin Discontinued PO 60 30 October 21, 2018 12:00am September 28, 2019 10:33am 24 hr mirabegron 25 mg extended release oral tablet (16 sources) beta3-Adrenergic Agonist Start: 05-16-2023 End: 12-02-2023 take 1 tablet by mouth once daily Mirabegron (Myrbetriq) 25 mg tablet extended release 24 hr Discontinued 25 mg PO DAILY May 16, 2023 1:00am December 02, 2023 10:53am Multi-Vitamins tablet 1 tablet (1 source) Start: 03-12-2025 End: 03-23-2025 MULTIPLE VITAMIN (8 sources) Start: 10-03-2015 take 1 tablet by mouth once daily MULTIVITAMINS TABS One tablet by mouth daily MULTIPLE VITAMIN Armando Acevedo MD Start: 10-03-2015 take 1 tablet by ivan th once daily MULTIVITAMINS TABS One tablet by mouth daily MULTIPLE VITAMIN Armando Acevedo MD multivitamin (THERAGRAN) per tablet 1 tablet (1 source) Start: 03-23-2025 End: 04-07-2025 take 1 tablet by mouth once daily 1 tablet, Oral, Daily, First dose on Sat03/23/25 at 1800 Multivitamin 1 EACH tablet (13 sources) Start: 10-12-2016 End: 05-05-2018 Multivitamin 1 [...] 12, 2016 12:00am May 05, 2018 2:35pm naloxegol 25 mg oral tablet (1 source) Opioid Antagonist Start: 03-14-2025 End: 03-16-2025 nintedanib 150 mg oral capsule (4 sources) Kinase Inhibitor Start: 03-25-2025 End: 04-07-2025 150 mg, Oral, 2 times daily before meals, First dose (after last modification) on Sat03/25/25 at 2000, Take with food, 12 hours apart, Drug Name: OFEV, Form: capsule, Dose: 150, Dose Units: mg, Length of Therapy: Indefinite, How soon needed? (normally 72 hrs needed to procure): 0-24 hrs, Reason for Non-Formulary: Not stocked, Will this medication be patient supplied? Yes Start: 03-13-2025 End: 03-23-2025 End: 03-06-2025 take 1 capsule by mouth twice daily Nintedanib Esylate (Ofev) 150 MG capsule Take 1 capsule by mouth 2 times daily. 03/06/2025 Discontinued (Stop Taking at Discharge) nitroglycerin 0.4 mg sublingual tablet (20 sources) Nitrate Vasodilator Start: 10-26-2020 End: 12-11-2024 Nitroglycerin 0.4 mg tablet, sublingual Discontinued 0.4 mg SL every 5 to 15 minutes as needed for chest pain 08 09October 26, 2020 1:43pm December 11, 2024 3:01pm do not exceed 3 doses per episode nortriptyline 25 mg oral capsule (20 sources) Tricyclic Antidepressant Start: 03-11-2025 End: 04-07-2025 take 25 mg by mouth once daily 25 mg, Oral, Nightly, First dose (after last modification) on Sat03/23/25 at 2100, May cause QT interval prolongation. Start: 04-16-2013 End: 03-06-2025 take 1 capsule by mouth at bedtime omeprazole 40 mg delayed release oral capsule (1 source) Proton Pump Inhibitor End: 05-12-2024 take 1 capsule by mouth once daily omeprazole [address] capsule Take 1 capsule by mouth daily. 05/12/2024 Discontinued (Therapy completed) ondansetron 4 mg disintegrating oral tablet (20 sources) Serotonin-3 Receptor Antagonist Start: 03-24-2025 End: 04-07-2025 take 1 tablet by mouth every eight hours as needed for nausea and vomiting 4 mg, Oral, Every 8 hours PRN, nausea, vomiting, Starting on Sat03/24/25 at 1023, Orally disintegrating tablet: Open blister pack and place tablet on the tongue; tablet is formulated to dissolve on the tongue without water; do not split tablet. Formulation requires tablet remain in sealed package until immediately prior to dose being administered. Start: 02-08-2019 End: 09-28-2019 take 1 tablet [...] 06, 2018 1:00am October 21, 2018 9:28am Ondansetron 4mg/2ml (ZOFRAN) injection 4 mg (1 source) Start: 03-05-2025 End: 03-06-2025 take 4 mg intravenously every six hours as needed Ondansetron 4mg/2ml (ZOFRAN) injection 4 mg OXcarbazepine 150 mg oral tablet (18 sources) Anti-epileptic Agent Start: 04-16-2013 End: 05-12-2024 take 1 tablet by mouth at bedtime TRILEPTAL 150 MG TABS One tablet by mouth at bedtime. OXCARBAZEPINE [id number] Armando Acevedo MD oxyCODONE hydrochloride 5 mg oral tablet (20 sources) Opioid Agonist Start: 06-06-2018 End: 06-10-2018 take 1 tablet by mouth every six hours as needed for pain Oxycodone 5 MG tablet Discontinued 5 mg PO EVERY 6 HOURS NEEDED as needed for Pain 20 4 0 June 06, 2018 1:00am June 09, 2018 1:00am June 10, 2018 1:09am Calculus of kidney Calculus of kidney pantoprazole 40 mg delayed release oral tablet (20 sources) Proton Pump Inhibitor Start: 03-12-2025 End: 04-07-2025 take 40 mg by mouth once daily 40 mg, Oral, Daily, First dose (after last modification) on Sat03/24/25 at 0900, DO NOT CRUSH OR CHEW. Start: 04-23-2013 End: 03-06-2025 take 1 tablet by mouth once daily Start: 04-10-2013 take 1 tablet by ivan once daily PROTONIX 40 MG SOLR One tablet by mouth daily PANTOPRAZOLE SODIUM [id number] Nirav Mcgill RN pantoprazole sod ium (PROTONIX ORAL) Protonix Oral Active polyethylene glycol 3350 608908 mg / potassium chloride 2970 mg / sodium bicarbonate 6740 mg / sodium chloride 5860 mg / sodium sulfate 71086 mg powder for oral solution (1 source) Osmotic Laxative Start: 03-14-2025 End: 03-15-2025 potassium bicarbonate 20 meq effervescent oral tablet (1 source) Start: 03-17-2025 End: 03-17-2025 microencapsulated potassium chloride 20 meq extended release oral tablet (1 source) Start: 03-23-2025 End: 03-23-2025 1000 ml potassium chloride 0.02 meq/ml / sodium chloride 9 mg/ml injection (1 source) Start: 03-05-2025 End: 03-06-2025 Intravenous, at 75 mL/hr, CONTINUOUS, Starting on Sat03/05/25 at 1945, Until 03/06/25 at 1002 prochlorperazine 5 mg/ml injectable solution (1 source) Phenothiazine Start: 03-11-2025 End: 03-23-2025 take 10 mg intravenously every six hours as needed rosuvastatin calcium 20 mg oral tablet (20 sources) HMG-CoA Reductase Inhibitor Start: 03-12-2025 End: 03-23-2025 Start: 03-06-2025 End: 03-06-2025 Start: 05-24-2024 take 1 tablet by mouth at bedt christo 20 ml sodium chloride 9 mg/m l injection (4 sources) Start: 03-13-2025 End: 03-13-2025 Start: 03-11-2025 End: 03-23-2025 Start: 03-05-2025 End: 03-06-2025 Intravenous, at 20 mL/hr, NEEDED, Starting on Sat03/05/25 at 1939, Until 03/06/25 at 1758, Carrier Fluid - See Admin. Inst, 250mL 0.9NS to be used as carrier fluid for intermittent small volume or piggyback medication administration as needed. Infusion rate of the carrier fluid should be set at 20 mL/hr unless the rate as the intermittent medication is less than 20 mL/hr. For intermittent medications with a rate less than 20 mL/hr set the carrier fluid at that rate of the intermittent or piggy back medication. Start: 08-25-2024 End: 08-25-2024 1-100 mL, Intravenous, ONCE NEEDED, 1 dose, Starting on Sat08/25/24 at 0939, Until Sat08/25/24 at 0940, Flush, MR Procedure solifenacin succinate 10 mg oral tablet (20 sources) Cholinergic Muscarinic Antagonist Start: 10-12-2016 End: 05-12-2024 take 1 tablet by mouth once daily Solifenacin 10 MG tablet Discontinued 10 mg PO DAILY October 12, 2016 12:00am September 28, 2019 10:35am tamsulosin hydrochloride 0.4 mg oral capsule (20 sources) alpha-Adrenergic Ruba Start: 12-02-2023 End: 11-29-2024 take 1 capsule by mouth at bedtime Tamsulosin 0.4 mg capsule Discontinued 0.4 mg PO AT BEDTIME December 02, 2023 12:00am November 29, 2024 4:22pm Start: 04-23-2013 End: 05-16-2023 take 1 capsule by mouth at bedtime Tamsulosin 0.4 MG capsule Discontinued 0.4 mg PO AT BEDTIME April 23, 2013 1:00am May 16, 2023 2:04pm prostate Start: 04-10-2013 End: 03-06-2025 take 2 tablets by mouth once daily FLOMAX 0.4 MG CAPS Two tablets by mouth daily TAMSULOSIN HCL [id number] Nirav Mcgill RN testosterone cypionate 100 mg/ml injectable solution (20 sources) Androgen Start: 04-10-2013 End: 02-22-2014 DEPO-TESTOSTERONE 100 MG/ML SOLN Im every other week TESTOSTERONE CYPIONATE [id number] Rylee Singh PA-C Start: 04-10-2013 End: 02-22-2014 DEPO-TESTOSTERONE 100 MG/ML SOLN Im every other week TESTOSTERONE CYPIONATE [id number] Nirav Mcgill RN Start: 05-09-2005 TESTOSTERONE C YPIONATE 200 MG/ML IM OIL One ml/200mg IM every other week 0 05/09/2005 Active End: 08-25-2024 Testosterone Cypionate 100 M G/ML IM OIL Indications: Lumbar radiculopathy , Displacement of lumbar intervertebral disc without myelopathy , Acquired spondylolisthesis , Lumbar stenosis with neurogenic claudication , Back pain by Intramuscular route every 14 days. 08/25/2024 Discontinued 200 ml vancomycin 5 mg/ml injection (1 source) Glycopeptide Antibacterial Start: 03-15-2025 End: 03-16-2025 vitamin b12 0.1 mg oral tablet (8 sources) Vitamin B12 Start: 08-24-2024 End: 03-06-2025 take 1 tablet by mouth once daily Cyanocobalamin (B-12) 100 MCG tablet Take 1 tablet by mouth daily. 08/24/2024 03/06/2025 Discontinued (Stop Taking at Discharge) CHOLECALCIFEROL TABS (16 sources) Start: 02-22-2014 End: 10-03-2015 VITAMIN D TABS D3 5000u daily CHOLECALCIFEROL TABS [id number] Armando Acevedo MD Start: 02-22-2014 VITAMIN D TABS D3 5000u daily CHOLECALCIFEROL TABS [id number] Rylee Singh PA-C Start: 02-22-2014 End: 10-03-2015 VITAMIN D TABS D3 5000u jumana y CHOLECALCIFEROL TABS [id number] Armando Acevedo MD Start: 02-22-2014 VITAMIN D TABS D3 5000u daily CHOLECALCIFEROL TABS [id number] Rylee Singh PA-C water 1000 mg/ml irrigation solution (1 source) Start: 03-13-2025 End: 03-13-2025 (5 sources) Start: 03-19-2025 End: 03-19-2025 Start: 03-17-2025 End: 03-23-2025 apply 7.5 g by subcutaneous injection once [Order 1 Start] Name: Insulin lispro (HUMALOG) injection Signed Summary: Subcutaneous, 4 TIMES DAILY WITH MEALS & AT BEDTIME, First dose on Sat03/17/25 at 1200, Until Discontinued, Correction Factor: 151-200 = 1 unit; 201-250 = 2 units; 251-300 = 3 units; 301-350 = 4 units; 351-400 = 5 units; Kwikpen: Prime pen before each injection; refer to Pen Priming and Care Handout for further details. Warning! Confirm patient. Insulin pen is for labeled individual patient use ONLY. [Order 1 End] [Order 2 Start] Name: BLOOD GLUCOSE (POC DEVICE) Signed Summary: Routine, 4 TIMES DAILY BEFORE MEALS & AT BEDTIME, First occurrence on Sat03/17/25 at 1530, If any Blood Glucose (POC) is greater than 300mg/dl, then repeat Blood Glucose (POC) in 2 hours. If the initial blood glucose was greater than 300mg/dl and if second blood glucose is greater than 200md/dl, then notify Finisher Hand. [Order 2 End] [Order 3 Start] Name: BLOOD GLUCOSE (POC DEVICE) Signed Summary: Routine, DIRECTED, Starting on Sat03/17/25 at 1136, Until Specified, For all Blood Glucose LESS THAN 80 mg/dL, treat per Hypoglycemia in Non- Adults Clinical Practice Guideline (CPG) and recheck glucose 15 min after treatment. Repeat per CPG until glucose GREATER THAN 80 mg/dL. Once glucose IS GREATER THAN 80 mg/dL, recheck Blood Glucose every 1 hour x2, then resume as previously ordered. For Blood Glucose LESS THAN 80 mg/dL on admission OR LESS than 45 mg/dL at any time, obtain POC Blood Glucose every 4 hours for 6 occurrences AFTER treating per CPG. Obtain blood glucose for symptoms of hypoglycemia: sweating, shaking, fatigue, rapid pulse, slow thinking & dizziness. Notify physician w/results. Obtain blood glucose for symptoms of hyperglycemia: excessive thirst, blurred vision, excessive urination & tiredness. Notify physician w/results. If patient NPO, obtain POC Blood Glucose prior to administration of any insulin products. [Order 3 End] [Order 4 Start] Name: COMMUNICATION ORDER FOR NURSING CARE: For Blood Glucose LESS THAN 80 mg/dl Signed Summary: Routine, CONTINUOUS, Starting on Sat03/17/25 at 1137, Until Specified, For Blood Glucose LESS THAN 80 mg/dl follow Hypoglycemia in Non- Adults Clinical Practice Guideline (CPG) [Order 4 End] [Order 5 Start] Name: Dextrose 50% injection 7.5-25 g Signed Summary: 7.5-25 g, Intravenous, ADMINISTER DIRECTED, Starting on Sat03/17/25 at 1136, Until Sat03/23/25 at 1630, Blood glucose <80 mg/dL, For patients who are not alert, are NPO, or are on IV insulin infusion administer as directed per Hypoglycemia in Non- Adults Clinical Practice Guideline. For Blood Glucose: 60-79 mg/dL administer 7.5 gm (15ml); 45-59 mg/dL administer 12.5 gm (25ml); less than 45mg/dL administer 25gm (50ml). ++ If additional dextrose 50% needed, contact pharmacy or obtain from [facility] cart ++ Extravasation risk. Central line required. [Order 5 End] [Order 6 Start] Name: glucose (GLUTOSE) 40 % oral gel 1-2 Tube Signed Summary: 1-2 Tube, Oral, ADMINISTER DIRECTED, Starting on Sat03/17/25 at 1136, Until Sat03/23/25 at 1630, Blood glucose <80 mg/dL, For patients who are alert, able to tolerate PO intake and with intact cognitive status administer as directed per Hypoglycemia in Non- Adults Clinical Practice Guideline. For Blood Glucose: 60-79 mg/dL administer 1 tube; 45-59 mg/dl administer 1.5 tubes; less than 45 mg/dL administer 2 tubes. Each tube of 37.5g delivers 15g of carbohydrate. [Order 6 End] [Order 7 Start] Name: NOTIFY PHYSICIAN, Blood Glucose LESS THAN 80 mg/dl Signed Summary: Routine, CONTINUOUS, Starting on Sat03/17/25 at 1137, Until Specified, Who to Notify: Finisher Hand, For all Blood Glucose LESS THAN 80 mg/dl, notify Finisher Hand after treatment per Hypoglycemia in Non- Adults Clinical Practice Guideline [Order 7 End] Start: 03-14-2025 End: 03-14-2025 Start: 03-14-2025 End: 03-14-2025 take 500 mg intravenously every twenty-four hours Start: 03-14-2025 End: 03-14-2025 (1 source) Start: 03-14-2025 End: 03-14-2025 (1 source) Start: 03-14-2025 End: 03-14-2025 (1 source) Start: 03-13-2025 End: 03-13-2025 (2 sources) Start: 03-11-2025 End: 03-11-2025 Start: 03-11-2025 End: 03-11-2025 (1 source) Start: 03-11-2025 End: 03-11-2025 Problems Active Problems Problem Classification Problem Date Documented Da te Episodic/Chronic Abdominal pain (20 sources) Abdominal pain; Translations: [Unspecified abdominal pain] 02-09-2019 Episodic Acquired foot deformities (20 sources) Foot-drop; Translations: [Foot drop, left foot] 11-30-2022 Episodic Cardiac dysrhythmias (20 sources) Sinus tachycardia; Translations: [Paroxysmal atrial fibrillation] Onset: 03-11-2015 Resolved: 10-19-2016 10-19-2016 Chronic Comment on above: 04/29 Loop recorder; Loop recorder removed 10/15/16; Cardiac dysrhythmias (20 sources) Sinus tachycardia; Translations: [Tachycardia, unspecified] Episodic Chronic ulcer of skin (1 source) Pressure ulcer of unspecified buttock, unstageable; Translations: [Pressure ulcer, buttock] 03-26-2025 Chronic Coronary atherosclerosis and other heart disease (20 sources) Atherosclerotic heart disease of lummi coronary artery without angina pectoris; Translations: [Angina pectoris] Onset: 04-16-2013 Resolved: 10-19-2016 10-19-2016 Chronic Deficiency and other anemia (1 source) Anemia, unspecified; Translations: [Anemia, unspecified] Onset: 04-21-2025 Episodic Diabetes mellitus with complications (20 sources) 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; Translations: [Diabetes mellitus due to underlying condition with diabetic autonomic (poly)neuropathy] Onset: 05-05-2024 07-25-2022 Chronic Diabetes mellitus without complication (19 sources) Diabetes mellitus; Translations: [Type 2 diabetes mellitus without complications] Onset: 05-05-2024 05-16-2023 Chronic Diabetes mellitus without complication (1 source) Impaired fasting glycemia; Translations: [Impaired fasting glucose] 12-26-2023 Episodic Disorders of lipid metabolism (20 sources) Hyperlipidemia; Translations: [Pure hypercholesterolemia] Onset: 04-10-2013 04-10-2013 Chronic Essential hypertension (20 sources) Hypertensive disorder; Translations: [Essential hypertension] Onset: 04-10-2013 04-10-2013 Chronic Fluid and electrolyte disorders (4 sources) Disorder of electrolytes; Translations: [Other disorders of electrolyte and fluid balance, not elsewhere classified] Onset: 03-17-2025 03-21-2025 Episodic Headache; including migraine (1 source) Headache; including migraine; Translations: [Headache, unspecified] Onset: 03-17-2025 Hyperplasia of prostate (1 source) Benign prostatic hyperplasia with lower urinary tract symptoms; Translations: [Benign prostatic hyperplasia with lower urinary tract symptoms] Onset: 08-13-2024 Chronic Nutritional deficiencies (1 source) Vitamin D deficiency, unspecified; Translations: [Vitamin D deficiency, unspecified] Onset: 04-27-2025 Chronic Other aftercare (4 sources) Surgical follow-up; Translations: [Encounter for other specified surgical aftercare] Onset: 03-11-2025 03-11-2025 Episodic Other and ill-defined heart disease (20 sources) Left ventricular hypertrophy; Translations: [Cardiomegaly] Onset: 04-10-2013 04-10-2013 Chronic Other and ill-defined heart disease (1 source) Cardiomegaly; Translations: [Cardiomegaly] Onset: 06-29-2024 Chronic Other circulatory disease (14 sources) Presence of other vascular implants and grafts; Translations: [Presence of other vascular implants and grafts] Onset: 07-13-2013 Resolved: 10-19-2016 07-13-2013 Chronic Other circulatory disease (16 sources) H/O: atrial fibrillation; Translations: [Personal history of other diseases of the circulatory system] 05-16-2023 Episodic Comment on above: 2011 Other circulatory disease (13 sources) History of hypotension; Translations: [Personal history of other diseases of the circulatory system] 11-06-2023 Episodic Other circulatory disease (13 sources) Low blood pressure; Translations: [Hypotension, unspecified] 11-06-2023 Episodic Other connective tissue disease (20 sources) Paraparesis; Translations: [Other symptoms and signs involving the musculoskeletal system] 07-25-2022 Episodic Other connective tissue disease (1 source) Other symptoms and signs involving the musculoskeletal system; Translations: [Weakness of both lower extremities] 12-02-2023 Episodic Other connective tissue disease (1 source) Muscle weakness of limb; Translations: [Other symptoms and signs involving the musculoskeletal system] 04-12-2025 Episodic Other endocrine disorders (1 source) Adrenal cortical hypofunction; 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] Onset: 04-05-2005 12-26-2023 Chronic Other endocrine disorders (1 source) Other adrenocortical insufficiency; Translations: [Other adrenocortical insufficiency] Onset: 04-27-2025 Chronic Other endocrine disorders (1 source) Testicular hypofunction; Translations: [Testicular hypofunction] Onset: 01-14-2025 Chronic Other gastrointestinal disorders (20 sources) Diarrhea; Translations: [Diarrhea, unspecified] 02-09-2019 Episodic Other lower respiratory disease (2 sources) Pulmonary fibrosis, unspecified; Translations: [Pulmonary fibrosis, unspecified] Onset: 03-12-2025 Chronic Other lower respiratory disease (1 source) Interstitial pulmonary disease, unspecified; Translations: [Interstitial pulmonary disease, unspecified] Onset: 03-08-2025 Chronic Other lower respiratory disease (20 sources) Dyspnea on exertion; Translations: [Other forms of dyspnea] 03-13-2022 Episodic Other nervous system disorders (20 sources) Polyneuropathy; Translations: [Polyneuropathy, unspecified] 11-30-2022 Chronic Other nervous system disorders (7 sources) Polyneuropathy, unspecified; Translations: [Unspecified hereditary and idiopathic peripheral neuropathy] 11-29-2022 Chronic Other nervous system disorders (2 sources) Unspecified cord compression; Translations: [Unspecified cord compression] Onset: 04-26-2025 Chronic Other nervous system disorders (1 source) Spinal cord compression; Translations: [Unspecified cord compression] 04-26-2025 Chronic Other nervous system disorders (20 sources) Abnormal gait; Translations: [Unspecified abnormalities of gait and mobility] 11-30-2022 Episodic Other nervous system disorders (5 sources) Unspecified abnormalities of gait and mobility; Translations: [Abnormality of gait] 11-29-2022 Episodic Other non-traumatic joint disorders (1 source) Pain in right shoulder; Translations: [Pain in right shoulder] Onset: 02-19-2025 Episodic Other nutritional; endocrine; and metabolic disorders (1 source) Body mass index (BMI) 37.0-37.9, adult; Translations: [Body mass index (BMI) 37.0-37.9, adult] Onset: 04-16-2013 04-10-2016 Chronic Other nutritional; endocrine; and metabolic disorders (17 sources) Obesity; Translations: [Obesity, unspecified] 05-16-2023 Chronic Other nutritional; endocrine; and metabolic disorders (2 sources) Obesity, unspecified; Translations: [Obesity, unspecified] Onset: 05-05-2024 05-16-2023 Chronic Other nutritional; endocrine; and metabolic disorders (14 sources) Obese class II; Translations: [Obesity, Class II, BMI 35-39.9] Onset: 08-27-2018 08-27-2018 Chronic Other upper respiratory infections (13 sources) Sinusitis; Translations: [Chronic sinusitis, unspecified] 06-01-2024 Chronic Paralysis (7 sources) Paraparesis; Translations: [Paraplegia, unspecified] Onset: 02-11-2025 01-11-2025 Chronic Peripheral and visceral atherosclerosis (20 sources) Intermittent claudication; Translations: [Peripheral vascular disease, unspecified] Onset: 08-21-2013 08-21-2013 Chronic Pleurisy; pneumothorax; pulmonary collapse (18 sources) Atelectasis; Translations: [Atelectasis] Onset: 07-17-2012 03-16-2025 Episodic Residual codes; unclassified (20 sources) History of operative procedure on lumbosacral spinal structure; Translations: [Other specified postprocedural states] 11-30-2022 Episodic Residual codes; unclassified (8 sources) H/O Spinal surgery; Translations: [Other specified postprocedural states] Onset: 03-23-2025 03-23-2025 Episodic Residual codes; unclassified (4 sources) Other specified postprocedural states; Translations: [Other specified postprocedural states] Onset: 03-23-2025 Episodic Skin and subcutaneous tissue infections (14 sources) Cellulitis of face; Translations: [Cellulitis of face] 05-24-2024 Episodic Spondylosis; intervertebral disc disorders; other back problems (15 sources) Displacement of lumbar intervertebral disc without myelopathy; Translations: [Other intervertebral disc displacement, lumbar region] Onset: 07-03-2012 07-03-2012 Chronic Spondylosis; intervertebral disc disorders; other back problems (20 sources) Lumbar radiculopathy; Translations: [Spinal stenosis of lumbar region] Onset: 07-03-2012 07-03-2012 Episodic Thyroid disorders (1 source) Hypothyroidism, unspecified; Translations: [Hypothyroidism, unspecified] Onset: 04-27-2025 Chronic Unclassified (20 sources) Body mass index (BMI) 36.0-36.9, adult; Translations: [Body mass index (BMI) 37.0-37.9, adult] Onset: 04-16-2013 10-03-2015 Chronic Unclassified (3 sources) Body mass index (BMI) 35.0-35.9, adult; Translations: [Body mass index (BMI) 37.0-37.9, adult] Onset: 04-16-2013 09-08-2014 Chronic Unclassified (3 sources) Parkinsonism; Translations: [Parkinsonism, unspecified Parkinsonism type] 03-16-2025 Chronic Unclassified (5 sources) Placement of stent in coronary artery ; Translations: [Presence of cardiac and vascular implant and graft, unspecified] Onset: 05-21-2013 10-19-2016 Unclassified (8 sources) History of clinical finding in subject; Translations: [Personal history of other specified conditions] Onset: 04-10-2013 04-10-2013 Unclassified (1 source) Unstageable pressure ulcer of buttock (HCC) 03-26-2025 Unclassified (2 sources) 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, lumbosacral plexopathy Onset: 03-25-2025 Unclassified (1 source) Parkinsonism, unspecified; Translations: [Parkinsonism, unspecified] Onset: 03-11-2025 Unclassified (1 source) Cough, unspecified; Translations: [Cough, unspecified] Onset: 10-06-2024 Viral infection (20 sources) Disease caused by 2019-nCoV; Translations: [COVID-19] 12-29-2019 Episodic Past or Other Problems Problem Classification Problem Date Documented Da te Episodic/Chronic Conditions associated with dizziness or vertigo (14 sources) Dizziness; Translations: [Dizziness and giddiness] Onset: 06-24-2024 05-31-2024 Episodic Coronary atherosclerosis and other heart disease (20 sources) Stented coronary artery; Translations: [Presence of coronary angioplasty implant and graft] Onset: 04-17-2013 Episodic Comment on above: PTCA with KEYANA of pro ximal 3rd marginal artery 04/30/13 Malaise and fatigue (20 sources) Fatigue; Translations: [Other fatigue] Onset: 04-10-2013 04-10-2013 Episodic Mood disorders (4 sources) Mood disorders Onset: 03-23-2025 Resolved: 04-07-2025 03-23-2025 Nonspecific chest pain (20 sources) Chest pain; Translations: [Chest pain, unspecified] Onset: 12-05-2024 Episodic Other acquired deformities (15 sources) Acquired spondylolisthesis; Translations: [Spondylolisthesis, site unspecified] Onset: 07-03-2012 07-03-2012 Episodic Other circulatory disease (2 sources) Personal history of other diseases of the circulatory system; Translations: [Personal history of other diseases of circulatory system] Onset: 06-29-2024 05-16-2023 Episodic Other connective tissue disease (1 source) Other specified soft tissue disorders; Translations: [Other specified soft tissue disorders] Onset: 06-25-2024 Episodic Other lower respiratory disease (14 sources) Dyspnea; Translations: [Shortness of breath] Onset: 04-10-2013 Resolved: 10-19-2016 10-19-2016 Episodic Other lower respiratory disease (15 sources) Hypoxia; Translations: [Hypoxemia] Onset: 07-17-2012 07-20-2012 Episodic Other lower respiratory disease (14 sources) Other forms of dyspnea; Translations: [Other respiratory abnormalities] Onset: 12-15-2024 Episodic Other lower respiratory disease (1 source) Chronic cough; Translations: [Chronic cough] Onset: 08-19-2024 Episodic Syncope (15 sources) Syncope; Translations: [Syncope and collapse] Onset: 04-21-2013 04-21-2013 Episodic Unclassified (7 sources) Percutaneous transluminal coronary angioplasty ; Translations: [Coronary angioplasty status] Onset: 05-21-2013 05-21-2013 Unclassified (4 sources) Onset: 05-12-2024 Resolved: 04-12-2025 05-12-2024 Unclassified (1 source) Parkinsonism, unspecified; Translations: [Parkinsonism, unspecified] Onset: 03-11-2025 Results Test Name Value Interpretation Reference [facility], Directon 04-27-20 25 Bilirubin.direct [Mass/Vol] 0.17 mg/dL Normal 0.00-0.30 [facility] Comment on above: Order Comment: DR.WI FITZGERALD ORDERED CMP,TSH,VITD,25,LH,FSH.TESTTOT/FREE,PROLAC.MG.A1C. ORDERED [id number] OVERLAPS CMP,SO ORDERED DBIL Performed By: #### L 3100.5125, L501.9520, L501.5200, L506.1001, L501.4700, L501.9985, L3100.5170, L500.4050 ####[facility] [address] [place], [place], [phone] Comprehensive Metabolic Prof ilon 04-27-2025 Albumin [Mass/Vol] 3.5 g/dL Normal 3.4-4.8 [facility] Comment on above: Order Comment: DR.WI FITZGERALD ORDERED CMP,TSH,VITD,25,LH,FSH.TESTTOT/FREE,PROLAC.MG.A1C. ORDERED [id number] OVERLAPS CMP,SO ORDERED DBIL Performed By: #### L 3100.5125, L501.9520, L501.5200, L506.1001, L501.4700, L501.9985, L3100.5170, L500.4050 ####[facility] [address] [place], [place], [phone] Albumin/Globulin [Mass ratio] 1.0 {ratio} Normal 0.9-2.4 [facility] Comment on above: Order Comment: DR.WI FITZGERALD ORDERED CMP,TSH,VITD,25,LH,FSH.TESTTOT/FREE,PROLAC.MG.A1C. ORDERED [id number] OVERLAPS CMP,SO ORDERED DBIL Performed By: #### L 3100.5125, L501.9520, L501.5200, L506.1001, L501.4700, L501.9985, L3100.5170, L500.4050 ####[facility] [address] [place], [place], [phone] ALK PHOS 117 U/L Normal 40-129 [facility] Comment on above: Order Comment: DR.WI FITZGERALD ORDERED CMP,TSH,VITD,25,LH,FSH.TESTTOT/FREE,PROLAC.MG.A1C. ORDERED [id number] OVERLAPS CMP,SO ORDERED DBIL Performed By: #### L 3100.5125, L501.9520, L501.5200, L506.1001, L501.4700, L501.9985, L3100.5170, L500.4050 ####[facility] [address] [place], [place], [phone] ALT [Catalytic activity/Vol] 11 U/L Normal <=46 [facility] Comment on above: Order Comment: DR.WI FITZGERALD ORDERED CMP,TSH,VITD,25,LH,FSH.TESTTOT/FREE,PROLAC.MG.A1C. ORDERED [id number] OVERLAPS CMP,SO ORDERED DBIL Performed By: #### L 3100.5125, L501.9520, L501.5200, L506.1001, L501.4700, L501.9985, L3100.5170, L500.4050 ####[facility] [address] [place], [place], [phone] AST [Catalytic activity/Vol] 22 U/L Normal <=37 [facility] Comment on above: Order Comment: DR.WI FITZGERALD ORDERED CMP,TSH,VITD,25,LH,FSH.TESTTOT/FREE,PROLAC.MG.A1C. ORDERED [id number] OVERLAPS CMP,SO ORDERED DBIL Performed By: #### L 3100.5125, L501.9520, L501.5200, L506.1001, L501.4700, L501.9985, L3100.5170, L500.4050 ####[facility] [address] [place], [place], [phone]) Bilirubin [Mass/Vol] 0.27 mg/dL Normal 0.00-1.30 [facility] Comment on above: Order Comment: DR.WI FITZGERALD ORDERED CMP,TSH,VITD,25,LH,FSH.TESTTOT/FREE,PROLAC.MG.A1C. ORDERED [id number] OVERLAPS CMP,SO ORDERED DBIL Performed By: #### L 3100.5125, L501.9520, L501.5200, L506.1001, L501.4700, L501.9985, L3100.5170, L500.4050 ####[facility] [address] [place], [place], [phone]) BUN/CRE 10.1 RATIO Normal 10-20 [facility] Comment on above: Order Comment: DR.WI FITZGERALD ORDERED CMP,TSH,VITD,25,LH,FSH.TESTTOT/FREE,PROLAC.MG.A1C. ORDERED [id number] OVERLAPS CMP,SO ORDERED DBIL Performed By: #### L 3100.5125, L501.9520, L501.5200, L506.1001, L501.4700, L501.9985, L3100.5170, L500.4050 ####[facility] [address] [place], [address] Calcium [Mass/Vol] 9.5 mg/dL Normal 7.6-11.0 [facility] Comment on above: Order Comment: DR.WI FITZGERALD ORDERED CMP,TSH,VITD,25,LH,FSH.TESTTOT/FREE,PROLAC.MG.A1C. ORDERED [id number] OVERLAPS CMP,SO ORDERED DBIL Performed By: #### L 3100.5125, L501.9520, L501.5200, L506.1001, L501.4700, L501.9985, L3100.5170, L500.4050 ####[facility] [address] [place], [address] Chloride [Moles/Vol] 101 mmol/L Normal 98-108 [facility] Comment on above: Order Comment: DR.WI FITZGERALD ORDERED CMP,TSH,VITD,25,LH,FSH.TESTTOT/FREE,PROLAC.MG.A1C. ORDERED [id number] OVERLAPS CMP,SO ORDERED DBIL Performed By: #### L 3100.5125, L501.9520, L501.5200, L506.1001, L501.4700, L501.9985, L3100.5170, L500.4050 ####[facility] [address] [place], [address] CO2 [Moles/Vol] 27.4 mmol/L Normal 21.0-32.0 [facility] Comment on above: Order Comment: DR.WI FITZGERALD ORDERED CMP,TSH,VITD,25,LH,FSH.TESTTOT/FREE,PROLAC.MG.A1C. ORDERED [id number] OVERLAPS CMP,SO ORDERED DBIL Performed By: #### L 3100.5125, L501.9520, L501.5200, L506.1001, L501.4700, L501.9985, L3100.5170, L500.4050 ####[facility] [address] [place], [place], [phone] Creatinine [Mass/Vol] 0.76 mg/dL Normal 0.70-1.20 [facility] Comment on above: Order Comment: DR.WI FITZGERALD ORDERED CMP,TSH,VITD,25,LH,FSH.TESTTOT/FREE,PROLAC.MG.A1C. ORDERED [id number] OVERLAPS CMP,SO ORDERED DBIL Performed By: #### L 3100.5125, L501.9520, L501.5200, L506.1001, L501.4700, L501.9985, L3100.5170, L500.4050 ####[facility] [address] [place], [place], [phone]) GAP 10 Normal 5-15 [facility] Comment on above: Order Comment: DR.WI FITZGERALD ORDERED CMP,TSH,VITD,25,LH,FSH.TESTTOT/FREE,PROLAC.MG.A1C. ORDERED [id number] OVERLAPS CMP,SO ORDERED DBIL Performed By: #### L 3100.5125, L501.9520, L501.5200, L506.1001, L501.4700, L501.9985, L3100.5170, L500.4050 ####[facility] [address] [place], [place], [phone] GFR/1.73 sq M.predicted among non-blacks MDRD (S/P/Bld) [Vol rate/Area] 94 mL/min/{1.73_m2} Normal >60 [facility] Comment on above: Order Comment: DR.WI FITZGERALD ORDERED CMP,TSH,VITD,25,LH,FSH.TESTTOT/FREE,PROLAC.MG.A1C. ORDERED [id number] OVERLAPS CMP,SO ORDERED DBIL Result Comment: mL/m in/1.73m2 CKD-EPI Creatinine Equation (2020) Performed By: #### L 3100.5125, L501.9520, L501.5200, L506.1001, L501.4700, L501.9985, L3100.5170, L500.4050 ####[facility] [address] [place], [address] Globulin (S) [Mass/Vol] 3.6 g/dL Normal 2.2-4.2 [facility] Comment on above: Order Comment: DR.WI FITZGERALD ORDERED CMP,TSH,VITD,25,LH,FSH.TESTTOT/FREE,PROLAC.MG.A1C. ORDERED [id number] OVERLAPS CMP,SO ORDERED DBIL Performed By: #### L 3100.5125, L501.9520, L501.5200, L506.1001, L501.4700, L501.9985, L3100.5170, L500.4050 ####[facility] [address] [place], [address] Glucose [Mass/Vol] 135 mg/dL High 70-99 [facility] Comment on above: Order Comment: DR.WI FITZGERALD ORDERED CMP,TSH,VITD,25,LH,FSH.TESTTOT/FREE,PROLAC.MG.A1C. ORDERED [id number] OVERLAPS CMP,SO ORDERED DBIL Performed By: #### L 3100.5125, L501.9520, L501.5200, L506.1001, L501.4700, L501.9985, L3100.5170, L500.4050 ####[facility] [address] [place], [address] Potassium [Moles/Vol] 4.0 mmol/L Normal 3.3-5.1 [facility] Comment on above: Order Comment: DR.WI FITZGERALD ORDERED CMP,TSH,VITD,25,LH,FSH.TESTTOT/FREE,PROLAC.MG.A1C. ORDERED [id number] OVERLAPS CMP,SO ORDERED DBIL Performed By: #### L 3100.5125, L501.9520, L501.5200, L506.1001, L501.4700, L501.9985, L3100.5170, L500.4050 ####[facility] [address] [place], [address] Sodium [Moles/Vol] 138 mmol/L Normal 133-145 [facility] Comment on above: Order Comment: DR.WI FITZGERALD ORDERED CMP,TSH,VITD,25,LH,FSH.TESTTOT/FREE,PROLAC.MG.A1C. ORDERED [id number] OVERLAPS CMP,SO ORDERED DBIL Performed By: #### L 3100.5125, L501.9520, L501.5200, L506.1001, L501.4700, L501.9985, L3100.5170, L500.4050 ####[facility] [address] [place], [place], [phone] PROT 7.1 g/dL Normal 5.9-8.4 [facility] Comment on above: Order Comment: DR.WI FITZGERALD ORDERED CMP,TSH,VITD,25,LH,FSH.TESTTOT/FREE,PROLAC.MG.A1C. ORDERED [id number] OVERLAPS CMP,SO ORDERED DBIL Performed By: #### L 3100.5125, L501.9520, L501.5200, L506.1001, L501.4700, L501.9985, L3100.5170, L500.4050 ####[facility] [address] [place], [address] Urea nitrogen [Mass/Vol] 8 mg/dL Normal 4-19 [facility] Comment on above: Order Comment: DR.WI FITZGERALD ORDERED CMP,TSH,VITD,25,LH,FSH.TESTTOT/FREE,PROLAC.MG.A1C. ORDERED [id number] OVERLAPS CMP,SO ORDERED DBIL Performed By: #### L 3100.5125, L501.9520, L501.5200, L506.1001, L501.4700, L501.9985, L3100.5170, L500.4050 ####[facility] [address] [place], [place], [phone] Follicle Stimulating Hormone on 04-27-2025 FSH 12.2 mIU/mL Normal [facility] Comment on above: Order Comment: DR.WI FITZGERALD ORDERED CMP,TSH,VITD,25,LH,FSH.TESTTOT/FREE,PROLAC.MG.A1C. ORDERED [id number] OVERLAPS CMP,SO ORDERED DBIL Result Comment: FEMA LE:Follicular: 1.4 - 18.1 mIU/mLMidcycle: 3.4 - 33.4 mIU/mLLuteal: 1.5 - 9.1 mIU/mLPost Menopause: 23.0 - 116.3 mIU/mLMALE: 1.4 - 18.1 mIU/mL Performed By: #### L 3100.5125, L501.9520, L501.5200, L506.1001, L501.4700, L501.9985, L3100.5170, L500.4050 ####[facility] [address] [place], [place], [phone] Hemoglobin A1con 04-27-2025 HbA1c (Bld) [Mass fraction] 6.3 % High <=5.6 [facility] Comment on above: Result Comment: Norm al < 5.7 % Prediabetic 5.7 - 6.4 % Diabetic >or= 6.5 % Please note range changes. Performed By: #### L 3100.5125, L501.9520, L501.5200, L506.1001, L501.4700, L501.9985, L3100.5170, L500.4050 ####[facility] [address] [place], [place], [phone] Luteinizing Hormoneon 2024 LH 12.3 mIU/mL Normal [facility] Comment on above: Order Comment: DR.WI FITZGERALD ORDERED CMP,TSH,VITD,25,LH,FSH.TESTTOT/FREE,PROLAC.MG.A1C. ORDERED [id number] OVERLAPS CMP,SO ORDERED DBIL Result Comment: FEMA LE:Follicular: 1.9-12.5 mIU/mLMidcycle: 8.7-76.3 mIU/mLLuteal: 0.5-16.9 mIU/mLPost Menopause: 15.9-54.0 mIU/mLMALE:20-70 Years: 1.5-9.3 mIU/mL>70 Years: 3.1-34.6 mIU/mL Performed By: #### L 3100.5125, L501.9520, L501.5200, L506.1001, L501.4700, L501.9985, L3100.5170, L500.4050 ####[facility] [address] [place], [address] Magnesiumon 04-27-2025 Magnesium [Mass/Vol] 1.9 mg/dL Normal 1.5-2.2 [facility] Comment on above: Order Comment: DR.WI FITZGERALD ORDERED CMP,TSH,VITD,25,LH,FSH.TESTTOT/FREE,PROLAC.MG.A1C. ORDERED [id number] OVERLAPS CMP,SO ORDERED DBIL Performed By: #### L 3100.5125, L501.9520, L501.5200, L506.1001, L501.4700, L501.9985, L3100.5170, L500.4050 ####[facility] [address] [place], [address] Thyroid Stim Hormone (TSH)on 04-27-2025 TSH 4.770 uIU/mL High 0.300-4.20 0 [facility] Comment on above: Order Comment: DR.WI FITZGERALD ORDERED CMP,TSH,VITD,25,LH,FSH.TESTTOT/FREE,PROLAC.MG.A1C. ORDERED [id number] OVERLAPS CMP,SO ORDERED DBIL Performed By: #### L 3100.5125, L501.9520, L501.5200, L506.1001, L501.4700, L501.9985, L3100.5170, L500.4050 ####[facility] [address] [place], [place], [phone] Vitamin D,25 Hydroxyon 04-27 Vitamin D 25-OH 56.6 ng/mL Normal - [facility] Comment on above: Order Comment: DR.WI FITZGERALD ORDERED CMP,TSH,VITD,25,LH,FSH.TESTTOT/FREE,PROLAC.MG.A1C. ORDERED AIFRC2VMD OVERLAPS CMP,SO ORDERED DBIL Result Comment: Makeda min D StatusDeficiency: <20 ng/mL (50nmol/L)Insufficiency: 20-30 ng/mL (50-75 nmol/L)Sufficiency: 30-100 ng/mL (75-250 nmol/L)Toxicity: >100 ng/mL (>250 nmol/L) Performed By: #### L 3100.5125, L501.9520, L501.5200, L506.1001, L501.4700, L501.9985, L3100.5170, L500.4050 ####[facility] [address] [place], [place], [phone] OT General Evaluationon 03-19 OT General Evaluation Normal [facility] Inital Evaluation (1) - PTon 04-15-2025 Inital Evaluation (1) - PT Normal [facility] Basic Metabolic Profile (BMP )on 04-14-2025 BUN/CRE 8.4 RATIO Low 04-05 [facility] Comment on above: Performed By: #### L 100.0100, L500.2500 ####[facility] [address] [place], [address] Calcium [Mass/Vol] 8.4 mg/dL Normal 7.6-11.0 [facility] Comment on above: Performed By: #### L 100.0100, L500.2500 ####[facility] [address] [place], [address] Chloride [Moles/Vol] 107 mmol/L Normal 98-108 [facility] Comment on above: Performed By: #### L 100.0100, L500.2500 ####[facility] [address] [place], [address] CO2 [Moles/Vol] 24.2 mmol/L Normal 21.0-32.0 [facility] Comment on above: Performed By: #### L 100.0100, L500.2500 ####[facility] [address] [place], [address] Creatinine [Mass/Vol] 0.68 mg/dL Low 0.70-1.20 [facility] Comment on above: Performed By: #### L 100.0100, L500.2500 ####[facility] [address] [place], [address] GAP 11 Normal 5-15 [facility] Comment on above: Performed By: #### L 100.0100, L500.2500 ####[facility] [address] [place], [address] GFR/1.73 sq M.predicted among non-blacks MDRD (S/P/Bld) [Vol rate/Area] 97 mL/min/{1.73_m2} Normal >60 [facility] Comment on above: Result Comment: mL/m in/1.73m2 CKD-EPI Creatinine Equation (2020) Performed By: #### L 100.0100, L500.2500 ####[facility] [address] [place], [address] Glucose [Mass/Vol] 117 mg/dL High 70-99 [facility] Comment on above: Performed By: #### L 100.0100, L500.2500 ####[facility] [address] [place], [address] Potassium [Moles/Vol] 3.8 mmol/L Normal 3.3-5.1 [facility] Comment on above: Performed By: #### L 100.0100, L500.2500 ####[facility] [address] [place], [address] Sodium [Moles/Vol] 141 mmol/L Normal 133-145 [facility] Comment on above: Performed By: #### L 100.0100, L500.2500 ####[facility] [address] [place], [address] Urea nitrogen [Mass/Vol] 6 mg/dL Normal 4-19 [facility] Comment on above: Performed By: #### L 100.0100, L500.2500 ####[facility] [address] [place], [address] CBC W/Diff, Automatedon 10-2 -2024 Absolute Lymph 2.86 X10 3/uL Normal 0.83-4.51 [facility] Comment on above: Performed By: #### L 100.0100, L500.2500 ####[facility] [address] [place], [address] Absolute Neut 4.1 X10 3/uL Normal 2.0-7.7 [facility] Comment on above: Performed By: #### L 100.0100, L500.2500 ####[facility] [address] [place], [address] Basophils/100 WBC (Bld) 0.6 % Normal 0-1 [facility] Comment on above: Performed By: #### L 100.0100, L500.2500 ####[facility] [address] [place], [address] Eosinophils/100 WBC (Bld) 8.6 % High 0-5 [facility] Comment on above: Performed By: #### L 100.0100, L500.2500 ####[facility] [address] [place], [address] Erythrocyte distribution width (RBC) [Ratio] 14.7 % High 11.6-14.6 [facility] Comment on above: Performed By: #### L 100.0100, L500.2500 ####[facility] [address] [place], [address] Hematocrit (Bld) [Volume fraction] 40.3 % Normal 40-54 [facility] Comment on above: Performed By: #### L 100.0100, L500.2500 ####[facility] [address] [place], [address] Hemoglobin (Bld) [Mass/Vol] 12.9 g/dL Low 13.0-16.5 [facility] Comment on above: Performed By: #### L 100.0100, L500.2500 ####[facility] [address] [place], [address] IG% 0.100 Normal 0.0-0.9 [facility] Comment on above: Result Comment: IG% - Immature Granulocytes (promyelocytes, myelocytes andmetamyelocytes) > 1% indicates that a LEFT SHIFT is Present. Performed By: #### L 100.0100, L500.2500 ####[facility] [address] [place], [address] Lymphocytes/100 WBC (Bld) 33.3 % Normal 19-41 [facility] Comment on above: Performed By: #### L 100.0100, L500.2500 ####[facility] [address] [place], [address] MCH (RBC) [Entitic mass] 31.9 pg Normal 27.0-32.0 [facility] Comment on above: Performed By: #### L 100.0100, L500.2500 ####[facility] [address] [place], [address] MCHC (RBC) [Mass/Vol] 32.0 g/dL Normal 32-36 [facility] Comment on above: Performed By: #### L 100.0100, L500.2500 ####[facility] [address] [place], [address] MCV (RBC) [Entitic vol] 99.8 fL High 80-94 [facility] Comment on above: Performed By: #### L 100.0100, L500.2500 ####[facility] [address] [place], [address] Monocytes/100 WBC (Bld) 9.3 % Normal 0-10 [facility] Comment on above: Performed By: #### L 100.0100, L500.2500 ####[facility] [address] [place], [address] Neutrophils/100 WBC (Bld) 48.1 % Normal 47-70 [facility] Comment on above: Performed By: #### L 100.0100, L500.2500 ####[facility] [address] [place], [address] Nucleated RBC (Bld) [#/Vol] 0 10*3/uL Normal 0-5 [facility] Comment on above: Performed By: #### L 100.0100, L500.2500 ####[facility] [address] [place], [address] Platelet mean volume (Bld) [Entitic vol] 11.2 fL Normal 6.2-12.0 [facility] Comment on above: Performed By: #### L 100.0100, L500.2500 ####[facility] [address] [place], [address] Platelets (Bld) [#/Vol] 196 10*3/uL Normal 150-450 [facility] Comment on above: Performed By: #### L 100.0100, L500.2500 ####[facility] [address] [place], [address] RBC (Bld) [#/Vol] 4.04 10*6/uL Low 4.6-6.2 [facility] Comment on above: Performed By: #### L 100.0100, L500.2500 ####[facility] [address] [place], [address] RDW SD 52.7 fl High 35.1-43.9 [facility] Comment on above: Performed By: #### L 100.0100, L500.2500 ####[facility] [address] [place], [address] WBC (Bld) [#/Vol] 8.6 10*3/uL Normal 4.4-11.0 [facility] Comment on above: Performed By: #### L 100.0100, L500.2500 ####[facility] [address] [place], [address] Glucose (Bld) [Mass/Vol]on Glucose [Mass/Vol] 137 mg/dL High 65 - 99 mg/dL [facility] Interpretation and review of laboratory results Abnormal [facility] Glucose [Mass/Vol] 94 mg/dL 65 - 99 mg/dL [facility] Interpretation and review of laboratory results Normal [facility] POC GLUCOSE - [facility] 025 Glucose [Mass/Vol] 137 mg/dL High 65-99 [facility] Glucose [Mass/Vol] 94 mg/dL Normal 65-99 [facility] Glucose (Bld) [Mass/Vol]on Glucose [Mass/Vol] 148 mg/dL High 65 - 99 mg/dL [facility] Interpretation and review of laboratory results Abnormal [facility] Glucose [Mass/Vol] 121 mg/dL High 65 - 99 mg/dL [facility] Interpretation and review of laboratory results Abnormal [facility] Glucose [Mass/Vol] 115 mg/dL High 65 - 99 mg/dL [facility] Interpretation and review of laboratory results Abnormal [facility] Glucose [Mass/Vol] 106 mg/dL High 65 - 99 mg/dL [facility] Interpretation and review of laboratory results Abnormal [facility] POC GLUCOSE - [facility] 025 Glucose [Mass/Vol] 148 mg/dL High 65-99 [facility] Glucose [Mass/Vol] 121 mg/dL High 65-99 [facility] Glucose [Mass/Vol] 115 mg/dL High 65-99 [facility] Glucose [Mass/Vol] 106 mg/dL High 65-99 [facility] Glucose (Bld) [Mass/Vol]on Glucose [Mass/Vol] 151 mg/dL High 65 - 99 mg/dL [facility] Interpretation and review of laboratory results Abnormal [facility] Glucose [Mass/Vol] 130 mg/dL High 65 - 99 mg/dL [facility] Interpretation and review of laboratory results Abnormal [facility] Glucose [Mass/Vol] 147 mg/dL High 65 - 99 mg/dL [facility] Interpretation and review of laboratory results Abnormal [facility] Glucose [Mass/Vol] 96 mg/dL 65 - 99 mg/dL [facility] Interpretation and review of laboratory results Normal [facility] POC GLUCOSE - [facility] 025 Glucose [Mass/Vol] 151 mg/dL High 65-99 [facility] Glucose [Mass/Vol] 130 mg/dL High 65-99 [facility] Glucose [Mass/Vol] 147 mg/dL High 65-99 [facility] Glucose [Mass/Vol] 96 mg/dL Normal 65-99 [facility] Glucose (Bld) [Mass/Vol]on Glucose [Mass/Vol] 108 mg/dL High 65 - 99 mg/dL [facility] Interpretation and review of laboratory results Abnormal [facility] Glucose [Mass/Vol] 143 mg/dL High 65 - 99 mg/dL [facility] Interpretation and review of laboratory results Abnormal [facility] Glucose [Mass/Vol] 138 mg/dL High 65 - 99 mg/dL [facility] Interpretation and review of laboratory results Abnormal [facility] Glucose [Mass/Vol] 107 mg/dL High 65 - 99 mg/dL [facility] Interpretation and review of laboratory results Abnormal [facility] POC GLUCOSE - [facility] 025 Glucose [Mass/Vol] 108 mg/dL High 65-99 [facility] Glucose [Mass/Vol] 143 mg/dL High 65-99 [facility] Glucose [Mass/Vol] 138 mg/dL High 65-99 [facility] Glucose [Mass/Vol] 107 mg/dL High 65-99 [facility] Glucose (Bld) [Mass/Vol]on Glucose [Mass/Vol] 182 mg/dL High 65 - 99 mg/dL [facility] Interpretation and review of laboratory results Abnormal [facility] Glucose [Mass/Vol] 115 mg/dL High 65 - 99 mg/dL [facility] Interpretation and review of laboratory results Abnormal [facility] Glucose [Mass/Vol] 148 mg/dL High 65 - 99 mg/dL [facility] Interpretation and review of laboratory results Abnormal [facility] Glucose [Mass/Vol] 88 mg/dL 65 - 99 mg/dL [facility] Interpretation and review of laboratory results Normal [facility] POC GLUCOSE - [facility] 025 Glucose [Mass/Vol] 182 mg/dL High 65-99 [facility] Glucose [Mass/Vol] 115 mg/dL High 65-99 [facility] Glucose [Mass/Vol] 148 mg/dL High 65-99 [facility] Glucose [Mass/Vol] 88 mg/dL Normal 65-99 [facility] Glucose (Bld) [Mass/Vol]on Glucose [Mass/Vol] 162 mg/dL High 65 - 99 mg/dL [facility] Interpretation and review of laboratory results Abnormal [facility] Glucose [Mass/Vol] 137 mg/dL High 65 - 99 mg/dL [facility] Interpretation and review of laboratory results Abnormal [facility] Glucose [Mass/Vol] 171 mg/dL High 65 - 99 mg/dL [facility] Interpretation and review of laboratory results Abnormal [facility] Glucose [Mass/Vol] 110 mg/dL High 65 - 99 mg/dL [facility] Interpretation and review of laboratory results Abnormal [facility] POC GLUCOSE - [facility] 025 Glucose [Mass/Vol] 162 mg/dL High 65-99 [facility] Glucose [Mass/Vol] 137 mg/dL High 65-99 [facility] Glucose [Mass/Vol] 171 mg/dL High 65-99 [facility] Glucose [Mass/Vol] 110 mg/dL High 65-99 [facility] Glucose (Bld) [Mass/Vol]on Glucose [Mass/Vol] 161 mg/dL High 65 - 99 mg/dL [facility] Interpretation and review of laboratory results Abnormal [facility] Glucose [Mass/Vol] 136 mg/dL High 65 - 99 mg/dL [facility] Interpretation and review of laboratory results Abnormal [facility] Glucose [Mass/Vol] 168 mg/dL High 65 - 99 mg/dL [facility] Interpretation and review of laboratory results Abnormal [facility] Glucose [Mass/Vol] 120 mg/dL High 65 - 99 mg/dL [facility] Interpretation and review of laboratory results Abnormal [facility] POC GLUCOSE - [facility] 025 Glucose [Mass/Vol] 161 mg/dL High 65-99 [facility] Glucose [Mass/Vol] 136 mg/dL High 65-99 [facility] Glucose [Mass/Vol] 168 mg/dL High 65-99 [facility] Glucose [Mass/Vol] 120 mg/dL High 65-99 [facility] Glucose (Bld) [Mass/Vol]on Glucose [Mass/Vol] 155 mg/dL High 65 - 99 mg/dL [facility] Interpretation and review of laboratory results Abnormal [facility] Glucose [Mass/Vol] 136 mg/dL High 65 - 99 mg/dL [facility] Interpretation and review of laboratory results Abnormal [facility] Glucose [Mass/Vol] 160 mg/dL High 65 - 99 mg/dL [facility] Interpretation and review of laboratory results Abnormal [facility] Glucose [Mass/Vol] 102 mg/dL High 65 - 99 mg/dL [facility] Interpretation and review of laboratory results Abnormal [facility] POC GLUCOSE - [facility] 025 Glucose [Mass/Vol] 155 mg/dL High 65-99 [facility] Glucose [Mass/Vol] 136 mg/dL High 65-99 [facility] Glucose [Mass/Vol] 160 mg/dL High 65-99 [facility] Glucose [Mass/Vol] 102 mg/dL High 65-99 [facility] B12/FOLATEon 03-30-2025 Cobalamin (Vitamin B12) [Mass/Vol] 1376 pg/mL High 232-1245 [facility] Comment on above: Performed By: #### [id number] #### LAB [address] [address] Deandre Hines M.D. [id number] FOLATE 19.9 ng/mL High 3.1-17.5 [facility] Comment on above: Result Comment: Defi cient <2.2 Borderline 2.2 - 3.0 Excessive >17.5 Performed By: #### 4 [id number] #### LAB [address] [address] Deandre Hines M.D. [id number] B12/Folateon 03-30-2025 Cobalamin (Vitamin B12) [Mass/Vol] 1376 pg/mL High 232 - 1245 pg/mL [facility] Folate [Mass/Vol] 19.9 ng/mL High 3.1 - 17.5 ng/mL [facility] Comment on above: Deficient <2.2 Borderline 2.2 - 3.0 Excessive >17.5 Interpretation and review of laboratory results Abnormal [facility] BASIC METABOLIC PANELon 03-17 Anion gap [Moles/Vol] 13 mmol/L Normal 10-20 [facility] Comment on above: Order Comment: [facility] has implemented the eGFR calculation approach that does not have a coefficient for race that conforms to the NKF-ASN Task Force Recommendations. Performed By: #### [id number] #### LAB [address] [address] Deandre Hines M.D. [id number] Calcium [Mass/Vol] 8.7 mg/dL Normal 8.4-10.2 [facility] Comment on above: Order Comment: [facility] has implemented the eGFR calculation approach that does not have a coefficient for race that conforms to the NKF-ASN Task Force Recommendations. Performed By: #### 4 [id number] #### LAB [address] [address] Deandre Hines M.D. [id number] Chloride [Moles/Vol] 103 mmol/L Normal 98-108 [facility] Comment on above: Order Comment: [facility] has implemented the eGFR calculation approach that does not have a coefficient for race that conforms to the NKF-ASN Task Force Recommendations. Performed By: #### 4 [id number] #### LAB [address] [place], [place] [address] Deandre Hines M.D. [id number] Creatinine [Mass/Vol] 0.77 mg/dL Low 0.80-1.30 [facility] Comment on above: Order Comment: [facility] has implemented the eGFR calculation approach that does not have a coefficient for race that conforms to the NKF-ASN Task Force Recommendations. Performed By: #### 4 [id number] #### LAB [address] [place], [place] [address] Deandre Hines M.D. [id number] EGFR 93 mL/min/1.73 m2 Normal >=60 [facility] Comment on above: Order Comment: [facility] has implemented the eGFR calculation approach that does not have a coefficient for race that conforms to the NKF-ASN Task Force Recommendations. Result Comment: Arelis mated GFR was calculated using the 2020 CKD-EPI creatinine equation. Performed By: #### 4 [id number] #### LAB [address] [place], [place] [address] Deandre Hines M.D. [id number] Glucose [Mass/Vol] 123 mg/dL High 65-99 [facility] Comment on above: Order Comment: [facility] has implemented the eGFR calculation approach that does not have a coefficient for race that conforms to the NKF-ASN Task Force Recommendations. Performed By: #### 4 [id number] #### LAB [address] [id number] Deandre Hines M.D. [id number] HCO3 (Bld) [Moles/Vol] 26 mmol/L Normal 21-32 [facility] Comment on above: Order Comment: [facility] has implemented the eGFR calculation approach that does not have a coefficient for race that conforms to the NKF-ASN Task Force Recommendations. Performed By: #### 4 [id number] #### LAB [address] [place], [place] [address] Deandre Hines M.D. [id number] Potassium [Moles/Vol] 3.9 mmol/L Normal 3.5-5.1 [facility] Comment on above: Order Comment: [facility] has implemented the eGFR calculation approach that does not have a coefficient for race that conforms to the NKF-ASN Task Force Recommendations. Performed By: #### 4 [id number] #### LAB [address] [place], [place] [address] Deandre Hines M.D. [id number] Sodium [Moles/Vol] 138 mmol/L Normal 135-145 [facility] Comment on above: Order Comment: [facility] has implemented the eGFR calculation approach that does not have a coefficient for race that conforms to the NKF-ASN Task Force Recommendations. Performed By: #### 4 [id number] #### LAB [address] [place], [place] [address] Deandre Hines M.D. [id number] Urea nitrogen [Mass/Vol] 7 mg/dL Low 8-25 [facility] Comment on above: Order Comment: [facility] has implemented the eGFR calculation approach that does not have a coefficient for race that conforms to the NKF-ASN Task Force Recommendations. Performed By: #### 4 [id number] #### LAB [address] [place], [place] [address] Deandre Hines M.D. [id number] Urea nitrogen/Creatinine [Mass ratio] 9.1 mg/mg Low 10.0-20.0 [facility] Comment on above: Order Comment: [facility] has implemented the eGFR calculation approach that does not have a coefficient for race that conforms to the NKF-ASN Task Force Recommendations. Performed By: #### 4 [id number] #### LAB [address] [place], [place] [address] Deandre Hines M.D. [id number] Basic metabolic 2000 panelon 03-30-2025 Anion gap [Moles/Vol] 13 mmol/L 10 - 2 0 mmol/L [facility] Calcium [Mass/Vol] 8.7 mg/dL 8.4 - 10. 2 mg/dL [facility] Chloride [Moles/Vol] 103 mmol/L 98 - 10 8 mmol/L [facility] Creatinine [Mass/Vol] 0.77 mg/dL Low 0.80 - 1.30 mg/dL [facility] GFR/1.73 sq M.predicted CKD-EPI (S/P/Bld) [Vol rate/Area] 93 - PINF [facility] Comment on above: Estimated GFR was ca lculated using the 2020 CKD-EPI creatinine equation. Glucose [Mass/Vol] 123 mg/dL High 65 - 99 mg/dL [facility] HCO3 [Moles/Vol] 26 mmol/L 21 - 32 mmol/L [facility] Interpretation and review of laboratory results Abnormal [facility] Potassium [Moles/Vol] 3.9 mmol/L 3.5 - 5.1 mmol/L [facility] Sodium [Moles/Vol] 138 mmol/L 135 - 145 mmol/L [facility] Urea nitrogen [Mass/Vol] 7 mg/dL Low 8 - 25 mg/dL [facility] Urea nitrogen/Creatinine [Mass ratio] 9.1 mg/mg Low 10.0 - 20.0 [facility] has implemented the eGFR calculation approach that does not have a coefficient for race that conforms to the NKF-ASN Task Force Recommendations. [facility] CBCon 03-30-2025 AUTO NRBC 0.0 % Normal [facility] Comment on above: Performed By: #### 4 [id number] #### LAB [address] [address] Deandre Hines M.D. [id number] AUTO NRBC ABS COUNT 0.00 K/mcL Normal 0.00-0.[address] [facility] Comment on above: Performed By: #### 4 [id number] #### MH LAB [address] [address] Deandre Hines M.D. [id number] Erythrocyte distribution width (RBC) [Ratio] 13.8 % Normal 11.6-14.8 [facility] Comment on above: Performed By: #### 4 [id number] #### MH LAB [address] [address] Deandre Hines M.D. [id number] Hematocrit (Bld) [Volume fraction] 40.5 % Low 41.0-53.0 [facility] Comment on above: Performed By: #### 4 [id number] #### LAB [address] [address] Deandre Hines M.D. [id number] Hemoglobin (Bld) [Mass/Vol] 12.7 g/dL Low 13.5-17.5 [facility] Comment on above: Performed By: #### 4 [id number] #### LAB [address] [address] Deandre Hines M.D. [id number] MCH (RBC) [Entitic mass] 31.8 pg Normal 26.0-34.0 [facility] Comment on above: Performed By: #### 4 [id number] #### LAB [address] [address] Deandre Hines M.D. [id number] MCV (RBC) [Entitic vol] 101.3 fL High 80.0-100.0 [facility] Comment on above: Performed By: #### 4 [id number] #### LAB [address] [address] Deandre Hines M.D. [id number] MEAN CORPUSCULAR HEMOGLOBIN CONC 31.4 g/dL Normal 31.0-37.0 [facility] Comment on above: Performed By: #### 4 [id number] #### LAB [address] [address] Deandre Hines M.D. [id number] Platelet mean volume (Bld) [Entitic vol] 10.0 fL Normal 9.4-12.4 [facility] Comment on above: Performed By: #### 4 [id number] #### LAB [address] [address] Deandre Hines M.D. [id number] Platelets (Bld) [#/Vol] 399 10*3/uL Normal 150-400 [facility] Comment on above: Performed By: #### 4 [id number] #### LAB [address] [place], [place] [address] Deandre Hines M.D. [id number] RBC (Bld) [#/Vol] 4.00 10*6/uL Low 4.50-5.[address] [facility] Comment on above: Performed By: #### 4 [id number] #### LAB [address] [address] Deandre Hines M.D. [id number] WBC (Bld) [#/Vol] 9.23 10*3/uL Normal 4.50-11.[address] [facility] Comment on above: Performed By: #### 4 [id number] #### LAB [address] [address] Deandre Hines M.D. [id number] CBC panel Auto (Bld)on 03-30 Erythrocyte distribution width (RBC) [Entitic vol] 13.8 % 11.6 - 14.8 % [facility] Hematocrit (Bld) [Volume fraction] 40.5 % Low 41.0 - 53.0 % [facility] Hemoglobin (Bld) [Mass/Vol] 12.7 g/dL Low 13.5 - 17.5 g/dL [facility] Interpretation and review of laboratory results Abnormal [facility] MCH (RBC) [Entitic mass] 31.8 pg 26. 0 - 34.0 pg [facility] MCHC (RBC) [Mass/Vol] 31.4 g/dL 31.0 - 37.0 g/dL [facility] MCV (RBC) [Entitic vol] 101.3 fL High 80.0 - 100.0 fL [facility] Nucleated RBC (Bld) [#/Vol] 0 10*3/uL [facility] Nucleated RBC/100 WBC (Bld) [Ratio] 0 % [facility] Platelet mean volume (Bld) [Entitic vol] 10 fL 9.4 - 12.4 fL [facility] Platelets (Bld) [#/Vol] 399 10*3/uL [facility] RBC (Bld) [#/Vol] 4 10*6/uL Low [facility] WBC (Bld) [#/Vol] 9.23 10*3/uL [facility] CLOSTRIDIOIDES DIFFICILE JIN REMBERTOGora 03-30-2025 CLOSTRIDIOIDES DIFFICILE TESTING SPECIMEN ACCEPTABILITY Acceptable C. DIFFICILE INTERPRETATION Negative for toxigenic C. difficile Normal [facility] Comment on above: Performed By: #### [id number] #### MH LAB [address] [place] [address] Deandre Hines M.D. [id number] Clostridium difficile Testin gOrdered By: Jerman Christina on 03-30-2025 C. difficile Interpretation Negative [facility] Specimen Acceptability Acceptable [facility] [place] [facility] Glucose (Bld) [Mass/Vol]on Glucose [Mass/Vol] 149 mg/dL High 65 - 99 mg/dL [facility] Interpretation and review of laboratory results Abnormal [facility] Glucose [Mass/Vol] 133 mg/dL High 65 - 99 mg/dL [facility] Interpretation and review of laboratory results Abnormal [facility] Glucose [Mass/Vol] 162 mg/dL High 65 - 99 mg/dL [facility] Interpretation and review of laboratory results Abnormal [facility] Glucose [Mass/Vol] 106 mg/dL High 65 - 99 mg/dL [facility] Interpretation and review of laboratory results Abnormal [facility] POC GLUCOSE - [facility] 025 Glucose [Mass/Vol] 149 mg/dL High 65-99 [facility] Glucose [Mass/Vol] 133 mg/dL High 65-99 [facility] Glucose [Mass/Vol] 162 mg/dL High 65-99 [facility] Glucose [Mass/Vol] 106 mg/dL High 65-99 [facility] Glucose (Bld) [Mass/Vol]on Glucose [Mass/Vol] 133 mg/dL High 65 - 99 mg/dL [facility] Interpretation and review of laboratory results Abnormal [facility] Glucose [Mass/Vol] 112 mg/dL High 65 - 99 mg/dL [facility] Interpretation and review of laboratory results Abnormal [facility] Glucose [Mass/Vol] 158 mg/dL High 65 - 99 mg/dL [facility] Interpretation and review of laboratory results Abnormal [facility] Glucose [Mass/Vol] 100 mg/dL High 65 - 99 mg/dL [facility] Interpretation and review of laboratory results Abnormal [facility] POC GLUCOSE - [facility] 025 Glucose [Mass/Vol] 133 mg/dL High 65-99 [facility] Glucose [Mass/Vol] 112 mg/dL High 65-99 [facility] Glucose [Mass/Vol] 158 mg/dL High 65-99 [facility] Glucose [Mass/Vol] 100 mg/dL High 65-99 [facility] Glucose (Bld) [Mass/Vol]on Glucose [Mass/Vol] 171 mg/dL High 65 - 99 mg/dL [facility] Interpretation and review of laboratory results Abnormal [facility] Glucose [Mass/Vol] 111 mg/dL High 65 - 99 mg/dL [facility] Interpretation and review of laboratory results Abnormal [facility] Glucose [Mass/Vol] 184 mg/dL High 65 - 99 mg/dL [facility] Interpretation and review of laboratory results Abnormal [facility] Glucose [Mass/Vol] 122 mg/dL High 65 - 99 mg/dL [facility] Interpretation and review of laboratory results Abnormal [facility] POC GLUCOSE - [facility] 025 Glucose [Mass/Vol] 171 mg/dL High 65-99 [facility] Glucose [Mass/Vol] 111 mg/dL High 65-99 [facility] Glucose [Mass/Vol] 184 mg/dL High 65-99 [facility] Glucose [Mass/Vol] 122 mg/dL High 65-99 [facility] Glucose (Bld) [Mass/Vol]on Glucose [Mass/Vol] 123 mg/dL High 65 - 99 mg/dL [facility] Interpretation and review of laboratory results Abnormal [facility] Glucose [Mass/Vol] 201 mg/dL High 65 - 99 mg/dL [facility] Interpretation and review of laboratory results Abnormal [facility] Glucose [Mass/Vol] 159 mg/dL High 65 - 99 mg/dL [facility] Interpretation and review of laboratory results Abnormal [facility] Glucose [Mass/Vol] 126 mg/dL High 65 - 99 mg/dL [facility] Interpretation and review of laboratory results Abnormal [facility] POC GLUCOSE - [facility] 025 Glucose [Mass/Vol] 123 mg/dL High 65-99 [facility] Glucose [Mass/Vol] 201 mg/dL High 65-99 [facility] Glucose [Mass/Vol] 159 mg/dL High 65-99 [facility] Glucose [Mass/Vol] 126 mg/dL High 65-99 [facility] Glucose (Bld) [Mass/Vol]on Glucose [Mass/Vol] 164 mg/dL High 65 - 99 mg/dL [facility] Interpretation and review of laboratory results Abnormal [facility] Glucose [Mass/Vol] 102 mg/dL High 65 - 99 mg/dL [facility] Interpretation and review of laboratory results Abnormal [facility] Glucose [Mass/Vol] 159 mg/dL High 65 - 99 mg/dL [facility] Interpretation and review of laboratory results Abnormal [facility] Glucose [Mass/Vol] 107 mg/dL High 65 - 99 mg/dL [facility] Interpretation and review of laboratory results Abnormal [facility] POC GLUCOSE - [facility] 025 Glucose [Mass/Vol] 164 mg/dL High 65-99 [facility] Glucose [Mass/Vol] 102 mg/dL High 65-99 [facility] Glucose [Mass/Vol] 159 mg/dL High 65-99 [facility] Glucose [Mass/Vol] 107 mg/dL High 65-99 [facility] Free T4 [Mass/Vol]on 025 Interpretation and review of laboratory results Normal [facility] Glucose (Bld) [Mass/Vol]on Glucose [Mass/Vol] 168 mg/dL High 65 - 99 mg/dL [facility] Interpretation and review of laboratory results Abnormal [facility] Glucose [Mass/Vol] 124 mg/dL High 65 - 99 mg/dL [facility] Interpretation and review of laboratory results Abnormal [facility] Glucose [Mass/Vol] 194 mg/dL High 65 - 99 mg/dL [facility] Interpretation and review of laboratory results Abnormal [facility] Glucose [Mass/Vol] 145 mg/dL High 65 - 99 mg/dL [facility] Interpretation and review of laboratory results Abnormal [facility] HbA1c (Bld) [Mass fraction]o n 03-25-2025 Average glucose Estimated from glycated hemoglobin (Bld) [Mass/Vol] 134 mg/dL High 74 - 114 mg/dL [facility] Interpretation and review of laboratory results Abnormal [facility] Hemoglobin A1con 03-25-2025 HbA1c (Bld) [Mass fraction] 6.3 % High 4.2 - 5.6 % [facility] POC GLUCOSE - [facility] 025 Glucose [Mass/Vol] 168 mg/dL High 65-99 [facility] Glucose [Mass/Vol] 124 mg/dL High 65- [facility] Glucose [Mass/Vol] 194 mg/dL High 65- [facility] Glucose [Mass/Vol] 145 mg/dL High 65-99 [facility] T4, Freeon 03-25-2025 Free T4 [Mass/Vol] 1.5 ng/dL 0.7 - 1.7 ng/dL [facility] CBC Auto Differentialon Basophils (Bld) [#/Vol] 0.06 10*3/uL [facility] Basophils/100 WBC (Bld) 0.5 % [facility] Eosinophils (Bld) [#/Vol] 0.45 10*3/uL [facility] Eosinophils/100 WBC (Bld) 4.1 % [facility] Erythrocyte distribution width (RBC) [Entitic vol] 14 % 11.6 - 14.8 % [facility] Hematocrit (Bld) [Volume fraction] 40.8 % Low 41.0 - 53.0 % [facility] Hemoglobin (Bld) [Mass/Vol] 13 g/dL Low 13.5 - 17.5 g/dL [facility] Immature granulocytes (Bld) [#/Vol] 0.04 10*3/uL [facility] Immature granulocytes/100 WBC (Bld) 0.4 % [facility] Comment on above: The IG parameter is the percentage of metamyelocytes, myelocytes and promyelocytes. An immature granulocyte count (IG) of 1% or more suggests the possibility of infection, an IG count of 3% is very likely related to an infection. Interpretation and review of laboratory results Abnormal [facility] Lymphocytes (Bld) [#/Vol] 2.05 10*3/uL [facility] Lymphocytes/100 WBC (Bld) 18.8 % [facility] MCH (RBC) [Entitic mass] 32.4 pg 26. 0 - 34.0 pg [facility] MCHC (RBC) [Mass/Vol] 31.9 g/dL 31.0 - 37.0 g/dL [facility] MCV (RBC) [Entitic vol] 101.7 fL High 80.0 - 100.0 fL [facility] Monocytes (Bld) [#/Vol] 1.4 10*3/uL High [facility] Monocytes/100 WBC (Bld) 12.8 % [facility] Neutrophils (Bld) [#/Vol] 6.91 10*3/uL [facility] Neutrophils/100 WBC (Bld) 63.4 % [facility] Nucleated RBC (Bld) [#/Vol] 0 10*3/uL [facility] Nucleated RBC/100 WBC (Bld) [Ratio] 0 % [facility] Platelet mean volume (Bld) [Entitic vol] 9.8 fL 9.4 - 12.4 fL [facility] Platelets (Bld) [#/Vol] 555 10*3/uL High [facility] RBC (Bld) [#/Vol] 4.01 10*6/uL Low [facility] WBC (Bld) [#/Vol] 10.91 10*3/uL [facility] CBC WITH AUTO DIFFERENTIALon 03-24-2025 AUTO NRBC 0.0 % Normal [facility] Comment on above: Performed By: #### L [id number] #### LAB [address] [address] Deandre Hines M.D. [id number] AUTO NRBC ABS COUNT 0.00 K/mcL Normal 0.00-0.[address] [facility] Comment on above: Performed By: #### L [id number] #### LAB [address] [place], [place] [address] Deandre Hines M.D. [id number] BASOPHILS ABSOLUTE COUNT 0.06 K/mcL Normal 0.00-0.30 [facility] Comment on above: Performed By: #### L [id number] #### LAB [address] [place], [place] [address] Deandre Hines M.D. [id number] Basophils/100 WBC (Bld) 0.5 % Normal [facility] Comment on above: Performed By: #### L [id number] #### LAB [address] [place], [place] [address] Deandre Hines M.D. [id number] Eosinophils (Bld) [#/Vol] 0.45 10*3/uL Normal 0.00-0.50 [facility] Comment on above: Performed By: #### L [id number] #### LAB [address] [place] [address] Deandre Hines M.D. [id number] Eosinophils/100 WBC (Bld) 4.1 % Normal [facility] Comment on above: Performed By: #### L [id number] #### LAB [address] [address] Deandre Hines M.D. [id number] Erythrocyte distribution width (RBC) [Ratio] 14.0 % Normal 11.6-14.8 [facility] Comment on above: Performed By: #### L [id number] #### LAB [address] [place] [address] Deandre Hines M.D. [id number] Hematocrit (Bld) [Volume fraction] 40.8 % Low 41.0-53.0 [facility] Comment on above: Performed By: #### L [id number] #### LAB [address] [place] [address] Deandre Hines M.D. [id number] Hemoglobin (Bld) [Mass/Vol] 13.0 g/dL Low 13.5-17.5 [facility] Comment on above: Performed By: #### L [id number] #### LAB [address] [place] [address] Deandre Hines M.D. [id number] IG ABSOLUTE 0.04 K/mcL Normal 0.00-0.30 [facility] Comment on above: Performed By: #### L [id number] #### LAB [address] [place] [address] Deandre Hines M.D. [id number] IG PERCENT 0.40 % Normal [facility] Comment on above: Result Comment: The IG parameter is the percentage of metamyelocytes, myelocytes and promyelocytes. An immature granulocyte count (IG) of 1% or more suggests the possibility of infection, an IG count of 3% is very likely related to an infection. Performed By: #### L [id number] #### LAB [address] [address] Deandre Hines M.D. [id number] Lymphocytes (Bld) [#/Vol] 2.05 10*3/uL Normal 0.90-4.00 [facility] Comment on above: Performed By: #### L [id number] #### LAB [address] [address] Deandre Hines M.D. [id number] Lymphocytes/100 WBC (Bld) 18.8 % Normal [facility] Comment on above: Performed By: #### L [id number] #### LAB [address] [address] Deandre Hines M.D. [id number] MCH (RBC) [Entitic mass] 32.4 pg Normal 26.0-34.0 [facility] Comment on above: Performed By: #### L [id number] #### LAB [address] [address] Deandre Hines M.D. [id number] MCV (RBC) [Entitic vol] 101.7 fL High 80.0-100.0 [facility] Comment on above: Performed By: #### L [id number] #### LAB [address] [place] [address] Deandre Hines M.D. [id number] MEAN CORPUSCULAR HEMOGLOBIN CONC 31.9 g/dL Normal 31.0-37.0 [facility] Comment on above: Performed By: #### L [id number] #### LAB [address] [place] [address] Deandre Hines M.D. [id number] Monocytes (Bld) [#/Vol] 1.40 10*3/uL High 0.30-0.90 [facility] Comment on above: Performed By: #### L [id number] #### LAB [address] [place] [address] Deandre Hines M.D. [id number] Monocytes/100 WBC (Bld) 12.8 % Normal [facility] Comment on above: Performed By: #### L [id number] #### LAB [address] [address] Deandre Hines M.D. [id number] NEUTROPHILS ABSOLUTE COUNT 6.91 K/mcL Normal 1.70-7.00 [facility] Comment on above: Performed By: #### L [id number] #### LAB [address] [address] Deandre Hines M.D. [id number] Neutrophils/100 WBC (Bld) 63.4 % Normal [facility] Comment on above: Performed By: #### L [id number] #### LAB [address] [address] Deandre Hines M.D. [id number] Platelet mean volume (Bld) [Entitic vol] 9.8 fL Normal 9.4-12.4 [facility] Comment on above: Performed By: #### L [id number] #### LAB [address] [address] Deandre Hines M.D. [id number] Platelets (Bld) [#/Vol] 555 10*3/uL High 150-400 [facility] Comment on above: Performed By: #### L [id number] #### LAB [address] [address] Deandre Hines M.D. [id number] RBC (Bld) [#/Vol] 4.01 10*6/uL Low 4.50-5.[address] [facility] Comment on above: Performed By: #### L [id number] ####MH LAB [address] [address] Deandre Hines M.D. [id number] WBC (Bld) [#/Vol] 10.91 10*3/uL Normal 4.50-11.00 [facility] Comment on above: Performed By: #### L [id number] ####MH LAB [address] [address] Deandre Hines M.D. [id number] COMPREHENSIVE METABOLIC PANE Gustavo 03-24-2025 Albumin [Mass/Vol] 3.1 g/dL Low 3.2-5.2 [facility] Comment on above: Order Comment: [facility] has implemented the eGFR calculation approach that does not have a coefficient for race that conforms to the NKF-ASN Task Force Recommendations. Performed By: #### 4 [id number] #### LAB [address] [address] Deandre Hines M.D. [id number] ALP [Catalytic activity/Vol] 105 U/L Normal 40-150 [facility] Comment on above: Order Comment: [facility] has implemented the eGFR calculation approach that does not have a coefficient for race that conforms to the NKF-ASN Task Force Recommendations. Performed By: #### 4 6126 #### LAB [address] [address] Deandre Hines M.D. [id number] ALT [Catalytic activity/Vol] 25 U/L Normal 0-50 U/L [facility] Comment on above: Order Comment: [facility] has implemented the eGFR calculation approach that does not have a coefficient for race that conforms to the NKF-ASN Task Force Recommendations. Performed By: #### 4 [id number] #### LAB [address] [address] Deandre Hines M.D. [id number] Anion gap [Moles/Vol] 16 mmol/L Normal 10-20 [facility] Comment on above: Order Comment: [facility] has implemented the eGFR calculation approach that does not have a coefficient for race that conforms to the NKF-ASN Task Force Recommendations. Performed By: #### 4 6126 #### LAB [address] [address] Deandre Hines M.D. [id number] AST [Catalytic activity/Vol] 33 U/L Normal 0-50 U/L [facility] Comment on above: Order Comment: [facility] has implemented the eGFR calculation approach that does not have a coefficient for race that conforms to the NKF-ASN Task Force Recommendations. Performed By: #### 4 6126 #### LAB [address] [address] Deandre Hines M.D. [id number] Bilirubin [Mass/Vol] 0.3 mg/dL Normal 0.0-1.3 [facility] Comment on above: Order Comment: [facility] has implemented the eGFR calculation approach that does not have a coefficient for race that conforms to the NKF-ASN Task Force Recommendations. Performed By: #### 4 6126 #### LAB [address] [address] Deandre Hines M.D. [id number] Calcium [Mass/Vol] 9.1 mg/dL Normal 8.4-10.2 [facility] Comment on above: Order Comment: [facility] has implemented the eGFR calculation approach that does not have a coefficient for race that conforms to the NKF-ASN Task Force Recommendations. Performed By: #### 4 [id number] #### LAB [address] [address] Deandre Hines M.D. [id number] Chloride [Moles/Vol] 100 mmol/L Normal 98-108 [facility] Comment on above: Order Comment: [facility] has implemented the eGFR calculation approach that does not have a coefficient for race that conforms to the NKF-ASN Task Force Recommendations. Performed By: #### 4 6126 #### LAB [address] [address] Deandre Hines M.D. [id number] Creatinine [Mass/Vol] 0.81 mg/dL Normal 0.80-1.30 [facility] Comment on above: Order Comment: [facility] has implemented the eGFR calculation approach that does not have a coefficient for race that conforms to the NKF-ASN Task Force Recommendations. Performed By: #### 4 6126 #### LAB [address] [address] Deandre Hines M.D. [id number] EGFR 92 mL/min/1.73 m2 Normal >=60 [facility] Comment on above: Order Comment: [facility] has implemented the eGFR calculation approach that does not have a coefficient for race that conforms to the NKF-ASN Task Force Recommendations. Result Comment: Arelis mated GFR was calculated using the 2020 CKD-EPI creatinine equation. Performed By: #### 4 6126 #### LAB [address] [address] Deandre Hines M.D. [id number] Glucose [Mass/Vol] 161 mg/dL High 65-99 [facility] Comment on above: Order Comment: [facility] has implemented the eGFR calculation approach that does not have a coefficient for race that conforms to the NKF-ASN Task Force Recommendations. Performed By: #### 4 6126 #### LAB [address] [address] Deandre Hines M.D. [id number] HCO3 (Bld) [Moles/Vol] 24 mmol/L Normal 21-32 [facility] Comment on above: Order Comment: [facility] has implemented the eGFR calculation approach that does not have a coefficient for race that conforms to the NKF-ASN Task Force Recommendations. Performed By: #### 4 6126 #### LAB [address] [address] Deandre Hines M.D. [id number] Potassium [Moles/Vol] 4.2 mmol/L Normal 3.5-5.1 [facility] Comment on above: Order Comment: [facility] has implemented the eGFR calculation approach that does not have a coefficient for race that conforms to the NKF-ASN Task Force Recommendations. Performed By: #### 4 6126 #### LAB [address] [address] Deandre Hines M.D. [id number] Protein [Mass/Vol] 7.3 g/dL Normal 6.0-8.0 [facility] Comment on above: Order Comment: [facility] has implemented the eGFR calculation approach that does not have a coefficient for race that conforms to the NKF-ASN Task Force Recommendations. Performed By: #### 4 6126 #### LAB [address] [place], [place] [address] Deandre Hines M.D. [id number] Sodium [Moles/Vol] 136 mmol/L Normal 135-145 [facility] Comment on above: Order Comment: [facility] has implemented the eGFR calculation approach that does not have a coefficient for race that conforms to the NKF-ASN Task Force Recommendations. Performed By: #### 4 6126 #### LAB [address] [place], [place] [address] Deandre Hines M.D. [id number] Urea nitrogen [Mass/Vol] 5 mg/dL Low 8-25 [facility] Comment on above: Order Comment: [facility] has implemented the eGFR calculation approach that does not have a coefficient for race that conforms to the NKF-ASN Task Force Recommendations. Performed By: #### 4 6126 #### LAB [address] [place], [place] [address] Deandre Hines M.D. [id number] Urea nitrogen/Creatinine [Mass ratio] 6.2 mg/mg Low 10.0-20.0 [facility] Comment on above: Order Comment: [facility] has implemented the eGFR calculation approach that does not have a coefficient for race that conforms to the NKF-ASN Task Force Recommendations. Performed By: #### 4 6126 #### LAB [address] [place], [place] [address] Deandre Hines M.D. 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 - Continue PT/OT - Consider CT head if other stroke like symptoms occur 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 instability for the last 2 years - Noted masked facies, shuffling gait, tremors - Consider adding Sinemet RAFAEL - Patient uses CPAP at home, family to bring in machine Dementia - Continue Donepezil HTN - Continue Lisinopril, Metoprolol Hyperthyroidism - Continue Levothyroxine GERD - Continue Pantoprazole HLD - Continue Atorvastatin, Zetia 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 DVT prophylaxis - Lovenox Precautions - fall Follow-ups - Neurosurgery Consulted internal medicine to monitor co-morbidities during rehab. Patient requires frequent management by consulting physicians not available in a lower level of care and frequent lab monitoring. On admission, I (inpatient rehabilitation facility physician) completed the medication reconciliation, and no issues were found. Description of Current Medical Status: Medical/Functional Exam: Please see below Rehabilitation Diagnosis: As above Current & Prior Comorbid Conditions: Please see problem list above Current and Prior Level of Function: Please see below Status Compared to Pre-Admission: There are no clinically significant differences between the patient's current medical and functional status as documented in the preadmission screen. Please see current functional status and hospital course/medical management. Treatment Plan: Disciplines Required: Physical Therapy, Occupational Therapy, Speech Therapy, Case Management/Social Work, and Nursing Specialized in Rehabilitation Intensity of Services: At least 3 hours per day, 5 days a week Functional Goals: improve independence with regard to mobility, ADLs, cognition, communication Medical Goals: Medically stable for home discharge Special/Safety Considerations: Fall risk There are no special or safety considerations that would likely preclude immediate implementation of an intensive rehabilitation program (intensity as stated above) or substantially influence plan of care. Risk of Complications: Patient is High Risk For: Falls, Skin breakdown, Dehydration and malnourishment, Atelectasis, Hypotension/hypertension, and DVT/PE Discharge Barriers: Functional deficits and medical stability Patient requires medical monitoring and management of comorbidities and/or hospital complications Patient requires Nursing Specialized in Rehabilitation to Monitor: Neurologic Assessment Psychosocial Considerations: Safe home discharge plan A complete drug regimen review was completed and No potentially clinically significant medication issue(s) were identified. Attestation: Considering all of the information above, it is my best judgment that this patient requires an intensive rehabilitation multidisciplinary program as previously described due to the necessity of medical management, rehabilitation needs, and complexity of nursing care under the supervision of a rehabilitation physician (patient requires at least 3 rehab physician visits per week). It can be reasonably expected that patient will participate in and benefit from a multidisciplinary team approach to maximize functional independence that is best served with acute inpatient rehabilitation as opposed to lower level of care. The teams needed are: Rehabilitation Nursing for medication management, bowel/bladder care, skin care, and respiratory care Physical Therapy for strengthening, endurance, mobility, gait and balance training, ROM, ADL's, and patient/family training Occupational Therapy for strengthening, endurance, mobility, gait and balance training, ROM, ADL's, and patient/family train (more content not included)... Normal [facility] Comprehensive metabolic 2000 panelon 03-24-2025 Albumin [Mass/Vol] 3.1 g/dL Low 3.2 - 5.2 g/dL [facility] ALP [Catalytic activity/Vol] 105 U/L 40 - 150 U/L [facility] ALT [Catalytic activity/Vol] 25 U/L 0 - 50 U/L [facility] Anion gap [Moles/Vol] 16 mmol/L 10 - 2 0 mmol/L [facility] AST [Catalytic activity/Vol] 33 U/L 0 - 50 U/L [facility] Bilirubin [Mass/Vol] 0.3 mg/dL 0.0 - 1 .3 mg/dL [facility] Calcium [Mass/Vol] 9.1 mg/dL 8.4 - 10. 2 mg/dL [facility] Chloride [Moles/Vol] 100 mmol/L 98 - 10 8 mmol/L [facility] Creatinine [Mass/Vol] 0.81 mg/dL 0.80 - 1.30 mg/dL [facility] GFR/1.73 sq M.predicted CKD-EPI (S/P/Bld) [Vol rate/Area] 92 - PINF [facility] Comment on above: Estimated GFR was ca lculated using the 2020 CKD-EPI creatinine equation. Glucose [Mass/Vol] 161 mg/dL High 65 - 99 mg/dL [facility] HCO3 [Moles/Vol] 24 mmol/L 21 - 32 mmol/L [facility] Interpretation and review of laboratory results Abnormal [facility] Potassium [Moles/Vol] 4.2 mmol/L 3.5 - 5.1 mmol/L [facility] Protein [Mass/Vol] 7.3 g/dL 6.0 - 8.0 g/dL [facility] Sodium [Moles/Vol] 136 mmol/L 135 - 145 mmol/L [facility] Urea nitrogen [Mass/Vol] 5 mg/dL Low 8 - 25 mg/dL [facility] Urea nitrogen/Creatinine [Mass ratio] 6.2 mg/mg Low 10.0 - 20.0 [facility] has implemented the eGFR calculation approach that does not have a coefficient for race that conforms to the NKF-ASN Task Force Recommendations. [facility] Glucose (Bld) [Mass/Vol]on Glucose [Mass/Vol] 161 mg/dL High 65 - 99 mg/dL [facility] Interpretation and review of laboratory results Abnormal [facility] Glucose [Mass/Vol] 119 mg/dL High 65 - 99 mg/dL [facility] Interpretation and review of laboratory results Abnormal [facility] Glucose [Mass/Vol] 177 mg/dL High 65 - 99 mg/dL [facility] Interpretation and review of laboratory results Abnormal [facility] Glucose [Mass/Vol] 144 mg/dL High 65 - 99 mg/dL [facility] Interpretation and review of laboratory results Abnormal [facility] HEMOGLOBIN A1Con 03-24-2025 Glucose [Mass/Vol] 134 mg/dL High 74-114 [facility] Comment on above: Performed By: #### 4 [id number] #### MH LAB [address] [place], [place] [address] Deandre Hines M.D. [id number] HbA1c (Bld) [Mass fraction] 6.3 % High 4.2-5.6 [facility] Comment on above: Performed By: #### 4 8202 #### MH LAB [address] [place], [place] [address] Deandre Hines M.D. [id number] MAGNESIUM LEVELon 03-24-2025 Magnesium [Mass/Vol] 1.9 mg/dL Normal 1.6-2.4 [facility] Comment on above: Performed By: #### 4 6109 #### LAB [address] [place], [place] [address] Deandre Hines M.D. [id number] Magnesium Levelon 03-24-2025 Magnesium [Mass/Vol] 1.9 mg/dL 1.6 - 2 .4 mg/dL [facility] Magnesium [Mass/Vol]on 03-24 Interpretation and review of laboratory results Normal [facility] No Panel Informationon 03-24 [facility] Glucose [Mass/Vol] 161 mg/dL High 65-99 [facility] Glucose [Mass/Vol] 119 mg/dL High 65-99 [facility] Glucose [Mass/Vol] 177 mg/dL High 65-99 [facility] Glucose [Mass/Vol] 144 mg/dL High 65-99 [facility] T4, FREEon 03-24-2025 Free T4 [Mass/Vol] 1.5 ng/dL Normal 0.7-1.7 [facility] Comment on above: Performed By: #### 4 [id number] #### LAB [address] [place], [place] [address] Deandre Hines M.D. [id number] TSH DL <= 0.005 mIU/L Qnon 1 Interpretation and review of laboratory results Normal [facility] TSH Qn 3.92 m[IU]/L [facility] TSH WITH REFLEX FREE T4on TSH Qn 3.92 m[IU]/L Normal 0.27-4.20 [facility] Comment on above: Performed By: #### 4 [id number] #### LAB [address] [place], [place] [address] Deandre Hines M.D. [id number] CBC,PLATELETSon 03-23-2025 Erythrocyte distribution width (RBC) [Ratio] 13.8 % 10.9 - 14.3 % [facility] Hematocrit (Bld) [Volume fraction] 32.3 % Low 39.6 - 48.8 % [facility] Hemoglobin (Bld) [Mass/Vol] 10.6 g/dL Low 13.4 - 16.8 g/dL [facility] Interpretation and review of laboratory results Abnormal [facility] MCH (RBC) [Entitic mass] 32.3 pg 26. 1 - 33.3 pg [facility] MCHC (RBC) [Mass/Vol] 32.8 g/dL 31.9 - 36.5 g/dL [facility] MCV (RBC) [Entitic vol] 98.5 fL High 79.0 - 94.5 fL [facility] Platelet mean volume (Bld) [Entitic vol] 10.0 fL 8.7 - 12.3 fL [facility] Platelets (Bld) [#/Vol] 402 10*3/uL High 146 - 337 K/uL [facility] RBC (Bld) [#/Vol] 3.28 10*6/uL Low [facility] WBC (Bld) [#/Vol] 8.16 10*3/uL 3.73 - 10.10 K/uL [facility] Hematocrit (Bld) [Volume fraction] 32.3 % Low 39.6-48.8 [facility] Comment on above: Performed By: #### I CRESP #### [facility] (DEFAULT) [address] [place] [address] Hemoglobin (Bld) [Mass/Vol] 10.6 g/dL Low 13.4-16.8 [facility] Comment on above: Performed By: #### I CRESP #### [facility] (DEFAULT) [address] [place] [address] MCV (RBC) [Entitic vol] 98.5 fL High 79.0-94.5 O [facility] Comment on above: Performed By: #### I CRESP #### [facility] (DEFAULT) [address] [place] [address] Mean Cell Hgb 32.3 pg Normal 26.1-33.3 [facility] Comment on above: Performed By: #### I CRESP #### [facility] (DEFAULT) [address] [address] Mean Cell Hgb Conc 32.8 g/dL Normal 31.9-36.5 [facility] Comment on above: Performed By: #### I CRESP #### [facility] (DEFAULT) [address] [address] Platelet mean volume (Bld) [Entitic vol] 10.0 fL Normal 8.7-12.3 [facility] Comment on above: Performed By: #### I CRESP #### [facility] (DEFAULT) [address] [address] Platelets (Bld) [#/Vol] 402 10*3/uL High 146-337 [facility] Comment on above: Performed By: #### I CRESP #### [facility] (DEFAULT) [address] [address] RBC (Bld) [#/Vol] 3.28 10*6/uL Low 4.38-5.83 [facility] Comment on above: Performed By: #### I CRESP #### [facility] (DEFAULT) [address] [address] RBC Distribution 13.8 % Normal 10.9-14.3 [facility] Comment on above: Performed By: #### I CRESP #### [facility] (DEFAULT) [address] [address] WBC (Bld) [#/Vol] 8.16 10*3/uL Normal 3.73-10.10 [facility] Comment on above: Performed By: #### I CRESP #### [facility] (DEFAULT) [address] [address] CHEM 7 (LYTES,BUN,CREA,GLUC) on 03-23-2025 Anion gap [Moles/Vol] 12 mmol/L 7 - 17 mmol/L [facility] Chloride [Moles/Vol] 108 mmol/L 98 - 10 8 mmol/L [facility] CO2 [Moles/Vol] 22 mmol/L 21 - 31 mmol/L [facility] Creatinine [Mass/Vol] 0.47 mg/dL Low 0.70 - 1.30 mg/dL [facility] eGFR, CKD-EPI, Male - PINF [facility] Glucose [Mass/Vol] 116 mg/dL 70 - 179 mg/dL [facility] Interpretation and review of laboratory results Abnormal [facility] Osmolality Calc [Osmolality] 288 [facility] Potassium [Moles/Vol] 3.4 mmol/L Low 3.5 - 5.0 mmol/L [facility] Sodium [Moles/Vol] 139 mmol/L 135 - 145 mmol/L [facility] Urea nitrogen [Mass/Vol] 5 mg/dL Low 7 - 25 mg/dL [facility] Urea nitrogen/Creatinine [Mass ratio] 11 mg/mg [facility] Anion gap [Moles/Vol] 12 mmol/L Normal 7-17 [facility] Comment on above: Performed By: #### P ROCAL #### [facility] (DEFAULT) [address] [address] Chloride [Moles/Vol] 108 mmol/L Normal 98-108 [facility] Comment on above: Performed By: #### P ROCAL #### [facility] (DEFAULT) [address] [place] [address] CO2 [Moles/Vol] 22 mmol/L Normal 21-31 [facility] Comment on above: Performed By: #### P ROCAL #### [facility] (DEFAULT) [address] [address] Creatinine [Mass/Vol] 0.47 mg/dL Low 0.70-1.30 [facility] Comment on above: Performed By: #### P ROCAL #### [facility] (DEFAULT) [address] [place] [address] eGFR, CKD-EPI, Male > Normal >=60 [facility] Comment on above: Result Comment: Repo rted eGFR is based on the CKD-EPI 2020 equation using creatinine, age, and sex. Performed By: #### P ROCAL #### [facility] (DEFAULT) [address] [place] [address] Glucose [Mass/Vol] 116 mg/dL Normal Nonfastin g : 70-179 mg/dL; Fastin-99 [facility] Comment on above: Performed By: #### P ROCAL #### [facility] (DEFAULT) [address] [place] [address] Osmolality [Osmolality] 288 mosm/kg Normal 278-305 [facility] Comment on above: Performed By: #### P ROCAL #### [facility] (DEFAULT) [address] [place] [address] Potassium [Moles/Vol] 3.4 mmol/L Low 3.5-5.0 [facility] Comment on above: Performed By: #### P ROCAL #### [facility] (DEFAULT) [address] [place] [address] Sodium [Moles/Vol] 139 mmol/L Normal 135-145 [facility] Comment on above: Performed By: #### P ROCAL #### [facility] (DEFAULT) [address] [place] [address] Urea nitrogen [Mass/Vol] 5 mg/dL Low 7-25 [facility] Comment on above: Performed By: #### P ROCAL #### [facility] (DEFAULT) [address] [place] [address] Urea nitrogen/Creatinine [Mass ratio] 11 mg/mg Normal [facility] Comment on above: Performed By: #### P ROCAL #### [facility] (DEFAULT) [address] [place] [address] GLUCOSE POCon 03-23-2025 Glucose [Mass/Vol] 185 mg/dL High 70 - 179 mg/dL [facility] Interpretation and review of laboratory results Abnormal [facility] POC Sample Type CAPBL [facility] Glucose [Mass/Vol] 138 mg/dL 70 - 179 mg/dL [facility] POC Sample Type CAPBL [facility] Glucose (Bld) [Mass/Vol]on 1 Glucose [Mass/Vol] 155 mg/dL High 65 - 99 mg/dL [facility] Interpretation and review of laboratory results Abnormal [facility] Glucose [Mass/Vol] 152 mg/dL High 65 - 99 mg/dL [facility] Interpretation and review of laboratory results Abnormal [facility] Glucose [Mass/Vol] 155 mg/dL High 65-99 [facility] Glucose [Mass/Vol] 152 mg/dL High 65-99 [facility] CBC,PLATELETSon 03-22-2025 Erythrocyte distribution width (RBC) [Ratio] 13.7 % 10.9 - 14.3 % [facility] Hematocrit (Bld) [Volume fraction] 35.3 % Low 39.6 - 48.8 % [facility] Hemoglobin (Bld) [Mass/Vol] 11.5 g/dL Low 13.4 - 16.8 g/dL [facility] Interpretation and review of laboratory results Abnormal [facility] MCH (RBC) [Entitic mass] 31.9 pg 26. 1 - 33.3 pg [facility] MCHC (RBC) [Mass/Vol] 32.6 g/dL 31.9 - 36.5 g/dL [facility] MCV (RBC) [Entitic vol] 98.1 fL High 79.0 - 94.5 fL [facility] Platelet mean volume (Bld) [Entitic vol] 10.3 fL 8.7 - 12.3 fL [facility] Platelets (Bld) [#/Vol] 405 10*3/uL High 146 - 337 K/uL [facility] RBC (Bld) [#/Vol] 3.60 10*6/uL Low [facility] WBC (Bld) [#/Vol] 9.03 10*3/uL 3.73 - 10.10 K/uL [facility] Hematocrit (Bld) [Volume fraction] 35.3 % Low 39.6-48.8 [facility] Comment on above: Performed By: #### I CRESP #### [facility] (DEFAULT) [address] [place] [address] 70666 Hemoglobin (Bld) [Mass/Vol] 11.5 g/dL Low 13.4-16.8 [facility] Comment on above: Performed By: #### I CRESP #### [facility] (DEFAULT) [address] [place] [address] 84857 MCV (RBC) [Entitic vol] 98.1 fL High 79.0-94.5 [facility] Comment on above: Performed By: #### I CRESP #### [facility] (DEFAULT) [address] [place] [address] 95972 Mean Cell Hgb 31.9 pg Normal 26.1-33.3 [facility] Comment on above: Performed By: #### I CRESP #### [facility] (DEFAULT) [address] [place] [address] 71823 Mean Cell Hgb Conc 32.6 g/dL Normal 31.9-36.5 [facility] Comment on above: Performed By: #### I CRESP #### [facility] (DEFAULT) [address] [place] [address] 86077 Platelet mean volume (Bld) [Entitic vol] 10.3 fL Normal 8.7-12.3 [facility] Comment on above: Performed By: #### I CRESP #### [facility] (DEFAULT) [address] [place] [address] 02378 Platelets (Bld) [#/Vol] 405 10*3/uL High 146-337 [facility] Comment on above: Performed By: #### I CRESP #### [facility] (DEFAULT) [address] [place] [address] 01150 RBC (Bld) [#/Vol] 3.60 10*6/uL Low 4.38-5.83 [facility] Comment on above: Performed By: #### I CRESP #### [facility] (DEFAULT) [address] [place] [address] 10578 RBC Distribution 13.7 % Normal 10.9-14.3 [facility] Comment on above: Performed By: #### I CRESP #### [facility] (DEFAULT) [address] [place] [address] 70087 WBC (Bld) [#/Vol] 9.03 10*3/uL Normal 3.73-10.10 [facility] Comment on above: Performed By: #### I CRESP #### [facility] (DEFAULT) [address] [place] [address] 33819 CHEM 7 (LYTES,BUN,CREA,GLUC) on 03-22-2025 Anion gap [Moles/Vol] 14 mmol/L 7 - 17 mmol/L [facility] Chloride [Moles/Vol] 103 mmol/L 98 - 10 8 mmol/L [facility] CO2 [Moles/Vol] 24 mmol/L 21 - 31 mmol/L [facility] Creatinine [Mass/Vol] 0.56 mg/dL Low 0.70 - 1.30 mg/dL [facility] eGFR, CKD-EPI, Male - PINF [facility] Glucose [Mass/Vol] 127 mg/dL 70 - 179 mg/dL [facility] Interpretation and review of laboratory results Abnormal [facility] Osmolality Calc [Osmolality] 287 [facility] Potassium [Moles/Vol] 3.8 mmol/L 3.5 - 5.0 mmol/L [facility] Sodium [Moles/Vol] 137 mmol/L 135 - 145 mmol/L [facility] Urea nitrogen [Mass/Vol] 7 mg/dL 7 - 25 mg/dL [facility] Urea nitrogen/Creatinine [Mass ratio] 13 mg/mg [facility] Anion gap [Moles/Vol] 14 mmol/L Normal 7-17 [facility] Comment on above: Performed By: #### X M #### [facility] (DEFAULT) [address] [place] [address] 60693 Chloride [Moles/Vol] 103 mmol/L Normal 98-108 [facility] Comment on above: Performed By: #### X M #### [facility] (DEFAULT) [address] [place] [address] 10605 CO2 [Moles/Vol] 24 mmol/L Normal 21-31 [facility] Comment on above: Performed By: #### X M #### [facility] (DEFAULT) [address] [place] [address] 23294 Creatinine [Mass/Vol] 0.56 mg/dL Low 0.70-1.30 [facility] Comment on above: Performed By: #### X M #### [facility] (DEFAULT) [address] [place] [address] 54444 eGFR, CKD-EPI, Male > Normal >=60 [facility] Comment on above: Result Comment: Repo rted eGFR is based on the CKD-EPI 2020 equation using creatinine, age, and sex. Performed By: #### X M #### [facility] (DEFAULT) [address] [place] [address] 52614 Glucose [Mass/Vol] 127 mg/dL Normal Nonfastin g : 70-179 mg/dL; Fastin-99 [facility] Comment on above: Performed By: #### X M #### [facility] (DEFAULT) [address] [place] [address] 88883 Osmolality [Osmolality] 287 mosm/kg Normal 278-305 [facility] Comment on above: Performed By: #### X M #### [facility] (DEFAULT) [address] [place] [address] Potassium [Moles/Vol] 3.8 mmol/L Normal 3.5-5.0 [facility] Comment on above: Performed By: #### X M #### [facility] (DEFAULT) [address] [place] [address] Sodium [Moles/Vol] 137 mmol/L Normal 135-145 [facility] Comment on above: Performed By: #### X M #### [facility] (DEFAULT) [address] [place] [address] Urea nitrogen [Mass/Vol] 7 mg/dL Normal 7-25 [facility] Comment on above: Performed By: #### X M #### [facility] (DEFAULT) [address] [place] [address] Urea nitrogen/Creatinine [Mass ratio] 13 mg/mg Normal [facility] Comment on above: Performed By: #### X M #### [facility] (DEFAULT) [address] [place] [address] GLUCOSE POCon 03-22-2025 Glucose [Mass/Vol] 155 mg/dL 70 - 179 mg/dL [facility] POC Sample Type CAPBL [facility] Glucose [Mass/Vol] 172 mg/dL 70 - 179 mg/dL [facility] POC Sample Type CAPBL [facility] Glucose [Mass/Vol] 180 mg/dL High 70 - 179 mg/dL [facility] Interpretation and review of laboratory results Abnormal [facility] POC Sample Type CAPBL [facility] Glucose [Mass/Vol] 119 mg/dL 70 - 179 mg/dL [facility] POC Sample Type CAPBL [facility] CBC,PLATELETSon 03-21-2025 Erythrocyte distribution width (RBC) [Ratio] 13.6 % 10.9 - 14.3 % [facility] Hematocrit (Bld) [Volume fraction] 41.7 % 39.6 - 48.8 % [facility] Hemoglobin (Bld) [Mass/Vol] 13.5 g/dL 13.4 - 16.8 g/dL [facility] Interpretation and review of laboratory results Abnormal [facility] MCH (RBC) [Entitic mass] 32.1 pg 26. 1 - 33.3 pg [facility] MCHC (RBC) [Mass/Vol] 32.4 g/dL 31.9 - 36.5 g/dL [facility] MCV (RBC) [Entitic vol] 99.3 fL High 79.0 - 94.5 fL [facility] Platelet mean volume (Bld) [Entitic vol] 10.6 fL 8.7 - 12.3 fL [facility] Platelets (Bld) [#/Vol] 381 10*3/uL High 146 - 337 K/uL [facility] RBC (Bld) [#/Vol] 4.20 10*6/uL Low [facility] WBC (Bld) [#/Vol] 10.24 10*3/uL High 3.73 - 10.10 K/uL [facility] Hematocrit (Bld) [Volume fraction] 41.7 % Normal 39.6-48.8 [facility] Comment on above: Performed By: #### F LLD, FLP #### [facility] (DEFAULT) [address] [place] [address] 56169 Hemoglobin (Bld) [Mass/Vol] 13.5 g/dL Normal 13.4-16.8 [facility] Comment on above: Performed By: #### F LLD, FLP #### [facility] (DEFAULT) [address] [place] [address] MCV (RBC) [Entitic vol] 99.3 fL High 79.0-94.5 [facility] Comment on above: Performed By: #### F LLD, FLP #### [facility] (DEFAULT) [address] [place] [address] 57232 Mean Cell Hgb 32.1 pg Normal 26.1-33.3 [facility] Comment on above: Performed By: #### F LLD, FLP #### [facility] (DEFAULT) [address] [place] [address] 98269 Mean Cell Hgb Conc 32.4 g/dL Normal 31.9-36.5 [facility] Comment on above: Performed By: #### F LLD, FLP #### [facility] (DEFAULT) [address] [address] Platelet mean volume (Bld) [Entitic vol] 10.6 fL Normal 8.7-12.3 [facility] Comment on above: Performed By: #### F LLD, FLP #### [facility] (DEFAULT) [address] [address] Platelets (Bld) [#/Vol] 381 10*3/uL High 146-337 [facility] Comment on above: Performed By: #### F LLD, FLP #### [facility] (DEFAULT) [address] [address] RBC (Bld) [#/Vol] 4.20 10*6/uL Low 4.38-5.83 [facility] Comment on above: Performed By: #### F LLD, FLP #### [facility] (DEFAULT) [address] [address] RBC Distribution 13.6 % Normal 10.9-14.3 [facility] Comment on above: Performed By: #### F LLD, FLP #### [facility] (DEFAULT) [address] [address] WBC (Bld) [#/Vol] 10.24 10*3/uL High 3.73-10.10 [facility] Comment on above: Performed By: #### F LLD, FLP #### [facility] (DEFAULT) [address] [place] [address] CHEM 7 (LYTES,BUN,CREA,GLUC) on 03-21-2025 Anion gap [Moles/Vol] 16 mmol/L 7 - 17 mmol/L [facility] Chloride [Moles/Vol] 98 mmol/L 98 - 10 8 mmol/L [facility] CO2 [Moles/Vol] 24 mmol/L 21 - 31 mmol/L [facility] Creatinine [Mass/Vol] 0.70 mg/dL 0.70 - 1.30 mg/dL [facility] eGFR, CKD-EPI, Male - PINF [facility] Glucose [Mass/Vol] 136 mg/dL 70 - 179 mg/dL [facility] Interpretation and review of laboratory results Abnormal [facility] Osmolality Calc [Osmolality] 283 [facility] Potassium [Moles/Vol] 3.9 mmol/L 3.5 - 5.0 mmol/L [facility] Sodium [Moles/Vol] 134 mmol/L Low 135 - 145 mmol/L [facility] Urea nitrogen [Mass/Vol] 10 mg/dL 7 - 25 mg/dL [facility] Urea nitrogen/Creatinine [Mass ratio] 14 mg/mg [facility] Anion gap [Moles/Vol] 16 mmol/L Normal 7-17 [facility] Comment on above: Performed By: #### X M #### [facility] (DEFAULT) [address] [place] [address] Chloride [Moles/Vol] 98 mmol/L Normal 98-108 [facility] Comment on above: Performed By: #### X M #### [facility] (DEFAULT) [address] [place] [address] CO2 [Moles/Vol] 24 mmol/L Normal 21-31 [facility] Comment on above: Performed By: #### X M #### [facility] (DEFAULT) [address] [place] [address] 89948 Creatinine [Mass/Vol] 0.70 mg/dL Normal 0.70-1.30 [facility] Comment on above: Performed By: #### X M #### [facility] (DEFAULT) [address] [place] [address] 77595 eGFR, CKD-EPI, Male > Normal >=60 [facility] Comment on above: Result Comment: Repo rted eGFR is based on the CKD-EPI 2020 equation using creatinine, age, and sex. Performed By: #### X M #### [facility] (DEFAULT) [address] [place] [address] 10641 Glucose [Mass/Vol] 136 mg/dL Normal Nonfastin g : 70-179 mg/dL; Fastin-99 [facility] Comment on above: Performed By: #### X M #### [facility] (DEFAULT) [address] [place] [address] 12982 Osmolality [Osmolality] 283 mosm/kg Normal 278-305 [facility] Comment on above: Performed By: #### X M #### [facility] (DEFAULT) [address] [place] [address] 28009 Potassium [Moles/Vol] 3.9 mmol/L Normal 3.5-5.0 [facility] Comment on above: Performed By: #### X M #### [facility] (DEFAULT) [address] [place] [address] 57100 Sodium [Moles/Vol] 134 mmol/L Low 135-145 [facility] Comment on above: Performed By: #### X M #### [facility] (DEFAULT) [address] [place] [address] 28892 Urea nitrogen [Mass/Vol] 10 mg/dL Normal 7-25 [facility] Comment on above: Performed By: #### X M #### [facility] (DEFAULT) [address] [place] [address] 67636 Urea nitrogen/Creatinine [Mass ratio] 14 mg/mg Normal [facility] Comment on above: Performed By: #### X M #### [facility] (DEFAULT) [address] [place] [address] GLUCOSE POCon 03-21-2025 Glucose [Mass/Vol] 147 mg/dL 70 - 179 mg/dL [facility] Glucose [Mass/Vol] 139 mg/dL 70 - 179 mg/dL [facility] POC Sample Type CAPBL [facility] Glucose [Mass/Vol] 219 mg/dL High 70 - 179 mg/dL [facility] Interpretation and review of laboratory results Abnormal [facility] POC Sample Type CAPBL [facility] Glucose [Mass/Vol] 138 mg/dL 70 - 179 mg/dL [facility] POC Sample Type CAPBL [facility] Glucose [Mass/Vol] 154 mg/dL 70 - 179 mg/dL [facility] POC Sample Type CAPBL [facility] CBC,PLATELETSon 03-20-2025 Erythrocyte distribution width (RBC) [Ratio] 13.7 % 10.9 - 14.3 % [facility] Hematocrit (Bld) [Volume fraction] 39.6 % 39.6 - 48.8 % [facility] Hemoglobin (Bld) [Mass/Vol] 13.0 g/dL Low 13.4 - 16.8 g/dL [facility] Interpretation and review of laboratory results Abnormal [facility] MCH (RBC) [Entitic mass] 32.3 pg 26. 1 - 33.3 pg [facility] MCHC (RBC) [Mass/Vol] 32.8 g/dL 31.9 - 36.5 g/dL [facility] MCV (RBC) [Entitic vol] 98.3 fL High 79.0 - 94.5 fL [facility] Platelet mean volume (Bld) [Entitic vol] 10.5 fL 8.7 - 12.3 fL [facility] Platelets (Bld) [#/Vol] 352 10*3/uL High 146 - 337 K/uL [facility] RBC (Bld) [#/Vol] 4.03 10*6/uL Low [facility] WBC (Bld) [#/Vol] 9.78 10*3/uL 3.73 - 10.10 K/uL [facility] Hematocrit (Bld) [Volume fraction] 39.6 % Normal 39.6-48.8 [facility] Comment on above: Performed By: #### I CRESP #### [facility] (DEFAULT) [address] [place] [address] 38958 Hemoglobin (Bld) [Mass/Vol] 13.0 g/dL Low 13.4-16.8 [facility] Comment on above: Performed By: #### I CRESP #### [facility] (DEFAULT) [address] [place] [address] 84762 MCV (RBC) [Entitic vol] 98.3 fL High 79.0-94.5 O [facility] Comment on above: Performed By: #### I CRESP #### [facility] (DEFAULT) [address] [place] [address] 57360 Mean Cell Hgb 32.3 pg Normal 26.1-33.3 [facility] Comment on above: Performed By: #### I CRESP #### [facility] (DEFAULT) [address] [place] [address] 32527 Mean Cell Hgb Conc 32.8 g/dL Normal 31.9-36.5 [facility] Comment on above: Performed By: #### I CRESP #### [facility] (DEFAULT) [address] [place] [address] 24696 Platelet mean volume (Bld) [Entitic vol] 10.5 fL Normal 8.7-12.3 [facility] Comment on above: Performed By: #### I CRESP #### [facility] (DEFAULT) [address] [place] [address] 94275 Platelets (Bld) [#/Vol] 352 10*3/uL High 146-337 [facility] Comment on above: Performed By: #### I CRESP #### [facility] (DEFAULT) [address] [place] [address] 61330 RBC (Bld) [#/Vol] 4.03 10*6/uL Low 4.38-5.83 [facility] Comment on above: Performed By: #### I CRESP #### [facility] (DEFAULT) [address] [place] [address] 67867 RBC Distribution 13.7 % Normal 10.9-14.3 [facility] Comment on above: Performed By: #### I CRESP #### [facility] (DEFAULT) [address] [place] [address] 31371 WBC (Bld) [#/Vol] 9.78 10*3/uL Normal 3.73-10.10 [facility] Comment on above: Performed By: #### I CRESP #### [facility] (DEFAULT) [address] [place] [address] 69909 CHEM 7 (LYTES,BUN,CREA,GLUC) on 03-20-2025 Anion gap [Moles/Vol] 14 mmol/L 7 - 17 mmol/L [facility] Chloride [Moles/Vol] 98 mmol/L 98 - 10 8 mmol/L [facility] CO2 [Moles/Vol] 25 mmol/L 21 - 31 mmol/L [facility] Creatinine [Mass/Vol] 0.73 mg/dL 0.70 - 1.30 mg/dL [facility] eGFR, CKD[facility]EPI, [facility] Glucose [Mass/Vol] 132 mg/dL 70 - 179 mg/dL [facility] Interpretation and review of laboratory results Abnormal [facility] Osmolality Calc [Osmolality] 281 [facility] Potassium [Moles/Vol] 3.8 mmol/L 3.5 - 5.0 mmol/L [facility] Sodium [Moles/Vol] 133 mmol/L Low 135 - 145 mmol/L [facility] Urea nitrogen [Mass/Vol] 11 mg/dL 7 - 25 mg/dL [facility] Urea nitrogen/Creatinine [Mass ratio] 15 mg/mg [facility] Anion gap [Moles/Vol] 14 mmol/L Normal 7-17 [facility] Comment on above: Performed By: #### C HM7 ####[facility] (DEFAULT)[address] [place] [address] Chloride [Moles/Vol] 98 mmol/L Normal 98-108 [facility] Comment on above: Performed By: #### C HM7 ####[facility] (DEFAULT)[address] [place] [address] CO2 [Moles/Vol] 25 mmol/L Normal 21-31 [facility] Comment on above: Performed By: #### C HM7 ####[facility] (DEFAULT)[address] [place] [address] Creatinine [Mass/Vol] 0.73 mg/dL Normal 0.70-1.30 [facility] Comment on above: Performed By: #### C HM7 ####[facility] (DEFAULT)[address] [place] [address] eGFR, CKD-EPI, Male > Normal >=60 [facility] Comment on above: Result Comment: Repo rted eGFR is based on the CKD-EPI 2020 equation using creatinine, age, and sex. Performed By: #### C HM7 ####[facility] (DEFAULT)[address] [place] [address] Glucose [Mass/Vol] 132 mg/dL Normal Nonfastin g : 70-179 mg/dL; Fastin-99 [facility] Comment on above: Performed By: #### C HM7 ####[facility] (DEFAULT)[address] [place] [address] Osmolality [Osmolality] 281 mosm/kg Normal 278-305 [facility] Comment on above: Performed By: #### C HM7 ####[facility] (DEFAULT)[address] [facility] [place] [address] Potassium [Moles/Vol] 3.8 mmol/L Normal 3.5-5.0 [facility] Comment on above: Performed By: #### C HM7 ####[facility] (DEFAULT)[address] [facility] [place] [address] Sodium [Moles/Vol] 133 mmol/L Low 135-145 [facility] Comment on above: Performed By: #### C HM7 ####[facility] (DEFAULT)[address] [facility] [place] [address] Urea nitrogen [Mass/Vol] 11 mg/dL Normal 7-25 [facility] Comment on above: Performed By: #### C HM7 ####[facility] (DEFAULT)[address] [facility] [place] [address] Urea nitrogen/Creatinine [Mass ratio] 15 mg/mg Normal [facility] Comment on above: Performed By: #### C HM7 ####[facility] (DEFAULT)[address] [place] [address] GLUCOSE POCon 03-20-2025 Glucose [Mass/Vol] 174 mg/dL 70 - 179 mg/dL [facility] POC Sample Type CAPBL [facility] Glucose [Mass/Vol] 194 mg/dL High 70 - 179 mg/dL [facility] Interpretation and review of laboratory results Abnormal [facility] [Mass/Vol] 210 mg/dL High 70 - 179 mg/dL [facility] Interpretation and review of laboratory results Abnormal [facility] Glucose [Mass/Vol] 137 mg/dL 70 - 179 mg/dL [facility] CBC,PLATELETSon 03-19-2025 Erythrocyte distribution width (RBC) [Ratio] 13.6 % 10.9 - 14.3 % [facility] Hematocrit (Bld) [Volume fraction] 37.7 % Low 39.6 - 48.8 % [facility] Hemoglobin (Bld) [Mass/Vol] 12.4 g/dL Low 13.4 - 16.8 g/dL [facility] Interpretation and review of laboratory results Abnormal [facility] MCH (RBC) [Entitic mass] 31.7 pg 26. 1 - 33.3 pg [facility] MCHC (RBC) [Mass/Vol] 32.9 g/dL 31.9 - 36.5 g/dL [facility] MCV (RBC) [Entitic vol] 96.4 fL High 79.0 - 94.5 fL [facility] Platelet mean volume (Bld) [Entitic vol] 10.8 fL 8.7 - 12.3 fL [facility] Platelets (Bld) [#/Vol] 291 10*3/uL 146 - 337 K/uL [facility] RBC (Bld) [#/Vol] 3.91 10*6/uL Low [facility] WBC (Bld) [#/Vol] 8.08 10*3/uL 3.73 - 10.10 K/uL [facility] Hematocrit (Bld) [Volume fraction] 37.7 % Low 39.6-48.8 [facility] Comment on above: Performed By: #### X M #### [facility] (DEFAULT) [address] [place] [address]152 Hemoglobin (Bld) [Mass/Vol] 12.4 g/dL Low 13.4-16.8 [facility] Comment on above: Performed By: #### X M #### [facility] (DEFAULT) [address] [address] MCV (RBC) [Entitic vol] 96.4 fL High 79.0-94.5 [facility] Comment on above: Performed By: #### X M #### [facility] (DEFAULT) [address] [address] Mean Cell Hgb 31.7 pg Normal 26.1-33.3 [facility] Comment on above: Performed By: #### X M #### [facility] (DEFAULT) [address] [address] Mean Cell Hgb Conc 32.9 g/dL Normal 31.9-36.5 [facility] Comment on above: Performed By: #### X M #### [facility] (DEFAULT) [address] [address] Platelet mean volume (Bld) [Entitic vol] 10.8 fL Normal 8.7-12.3 [facility] Comment on above: Performed By: #### X M #### [facility] (DEFAULT) [address] [address] Platelets (Bld) [#/Vol] 291 10*3/uL Normal 146-337 [facility] Comment on above: Performed By: #### X M #### [facility] (DEFAULT) [address] [address] RBC (Bld) [#/Vol] 3.91 10*6/uL Low 4.38-5.83 [facility] Comment on above: Performed By: #### X M #### [facility] (DEFAULT) [address] [place] [address] 18141 RBC Distribution 13.6 % Normal 10.9-14.3 [facility] Comment on above: Performed By: #### X M #### [facility] (DEFAULT) [address] [place] [address] WBC (Bld) [#/Vol] 8.08 10*3/uL Normal 3.73-10.10 [facility] Comment on above: Performed By: #### X M #### [facility] (DEFAULT) [address] [place] [address]99 CHEM 7 (LYTES,BUN,CREA,GLUC) on 03-19-2025 Anion gap [Moles/Vol] 15 mmol/L 7 - 17 mmol/L [facility] Chloride [Moles/Vol] 98 mmol/L 98 - 10 8 mmol/L [facility] CO2 [Moles/Vol] 25 mmol/L 21 - 31 mmol/L [facility] Creatinine [Mass/Vol] 0.71 mg/dL 0.70 - 1.30 mg/dL [facility] eGFR, CKD-EPI, Male - PINF [facility] Glucose [Mass/Vol] 133 mg/dL 70 - 179 mg/dL [facility] Interpretation and review of laboratory results Abnormal [facility] Osmolality Calc [Osmolality] 283 [facility] Potassium [Moles/Vol] 3.8 mmol/L 3.5 - 5.0 mmol/L [facility] Sodium [Moles/Vol] 134 mmol/L Low 135 - 145 mmol/L [facility] Urea nitrogen [Mass/Vol] 11 mg/dL 7 - 25 mg/dL [facility] Urea nitrogen/Creatinine [Mass ratio] 15 mg/mg [facility] Anion gap [Moles/Vol] 15 mmol/L Normal 7-17 [facility] Comment on above: Performed By: #### I CRESP #### [facility] (DEFAULT) [address] [place] [address] Chloride [Moles/Vol] 98 mmol/L Normal 98-108 [facility] Comment on above: Performed By: #### I CRESP #### [facility] (DEFAULT) [address] [place] [address] 69643 CO2 [Moles/Vol] 25 mmol/L Normal 21-31 [facility] Comment on above: Performed By: #### I CRESP #### [facility] (DEFAULT) [address] [place] [address] 07792 Creatinine [Mass/Vol] 0.71 mg/dL Normal 0.70-1.30 [facility] Comment on above: Performed By: #### I CRESP #### [facility] (DEFAULT) [address] [place] [address] 16414 eGFR, CKD-EPI, Male > Normal >=60 [facility] Comment on above: Result Comment: Repo rted eGFR is based on the CKD-EPI 2020 equation using creatinine, age, and sex. Performed By: #### I CRESP #### [facility] (DEFAULT) [address] [place] [address]452 Glucose [Mass/Vol] 133 mg/dL Normal Nonfastin g : 70-179 mg/dL; Fastin-99 [facility] Comment on above: Performed By: #### I CRESP #### [facility] (DEFAULT) [address] [place] [address]294 Osmolality [Osmolality] 283 mosm/kg Normal 278-305 [facility] Comment on above: Performed By: #### I CRESP #### [facility] (DEFAULT) [address] [place] [address] 20397 Potassium [Moles/Vol] 3.8 mmol/L Normal 3.5-5.0 [facility] Comment on above: Performed By: #### I CRESP #### [facility] (DEFAULT) [address] [place] [address] 43048 Sodium [Moles/Vol] 134 mmol/L Low 135-145 [facility] Comment on above: Performed By: #### I CRESP #### [facility] (DEFAULT) [address] [place] [address] Urea nitrogen [Mass/Vol] 11 mg/dL Normal 7-25 [facility] Comment on above: Performed By: #### I CRESP #### [facility] (DEFAULT) [address] [place] [address] Urea nitrogen/Creatinine [Mass ratio] 15 mg/mg Normal [facility] Comment on above: Performed By: #### I CRESP #### [facility] (DEFAULT) [address] [place] [address] EXTRA MICROon 03-19-2025 [facility] GLUCOSE POCon 03-19-2025 Glucose [Mass/Vol] 215 mg/dL High 70 - 179 mg/dL [facility] Interpretation and review of laboratory results Abnormal [facility] POC Sample Type CAPBL [facility] Glucose [Mass/Vol] 175 mg/dL 70 - 179 mg/dL [facility] POC Sample Type CAPBL [facility] Glucose [Mass/Vol] 122 mg/dL 70 - 179 mg/dL [facility] POC Sample Type CAPBL [facility] URINALYSIS REFLEX TO CULTURE PERFORMABLEon 03-19-2025 Appearance (U) Clear Clear [facility] Bacteria LM Ql (Urine sed) ABSENT ABSENT [facility] Color (U) Yellow Yellow [facility] Epithelial cells.squamous LM Ql (Urine sed) 0-2/hpf 0-2/hpf, 3-5/hpf = 1+ [facility] Glucose Test strip (U) [Mass/Vol] Negative Negative [facility] Interpretation and review of laboratory results Abnormal [facility] Ketones (U) [Mass/Vol] 15 mg/dL = Small Abnormal Negativ e [facility] Leukocyte esterase Test strip Ql (U) Negative Negative [facility] Nitrite Ql (U) Negative Negative [facility] pH (U) 7.0 [pH] 5.0 - 7.0 [facility] Protein (U) [Mass/Vol] 30 mg/dL Abnormal Negative [facility] RBC (U) [#/Vol] Negative [facility] RBC LM.HPF (Urine sed) [#/Area] 0-2 [facility] Specific gravity (U) [Rel density] 1.011 1.001 - 1.035 [facility] Urobilinogen (U) [Mass/Vol] 0.2 E.U./dL 0.2 E.U/dL, 1.0 E.U/dL [facility] WBC LM.HPF (Urine sed) [#/Area] 0 - 5 [facility] CBC,PLATELETSon 03-18-2025 Erythrocyte distribution width (RBC) [Ratio] 13.5 % 10.9 - 14.3 % [facility] Hematocrit (Bld) [Volume fraction] 39.1 % Low 39.6 - 48.8 % [facility] Hemoglobin (Bld) [Mass/Vol] 12.9 g/dL Low 13.4 - 16.8 g/dL [facility] Interpretation and review of laboratory results Abnormal [facility] MCH (RBC) [Entitic mass] 32.3 pg 26. 1 - 33.3 pg [facility] MCHC (RBC) [Mass/Vol] 33.0 g/dL 31.9 - 36.5 g/dL [facility] MCV (RBC) [Entitic vol] 97.8 fL High 79.0 - 94.5 fL [facility] Platelet mean volume (Bld) [Entitic vol] 10.4 fL 8.7 - 12.3 fL [facility] Platelets (Bld) [#/Vol] 256 10*3/uL 146 - 337 K/uL [facility] RBC (Bld) [#/Vol] 4.00 10*6/uL Low [facility] WBC (Bld) [#/Vol] 7.78 10*3/uL 3.73 - 10.10 K/uL [facility] Hematocrit (Bld) [Volume fraction] 39.1 % Low 39.6-48.8 [facility] Comment on above: Performed By: #### H EMOGC ####[facility] (DEFAULT)[address] [facility] [place] [address] Hemoglobin (Bld) [Mass/Vol] 12.9 g/dL Low 13.4-16.8 [facility] Comment on above: Performed By: #### H EMOGC ####[facility] (DEFAULT)[address] [facility] [place] [address] MCV (RBC) [Entitic vol] 97.8 fL High 79.0-94.5 [facility] Comment on above: Performed By: #### H EMOGC ####[facility] (DEFAULT)[address] [facility] [place] [address] Mean Cell Hgb 32.3 pg Normal 26.1-33.3 [facility] Comment on above: Performed By: #### H EMOGC ####[facility] (DEFAULT)[address] [facility] [place] [address] Mean Cell Hgb Conc 33.0 g/dL Normal 31.9-36.5 [facility] Comment on above: Performed By: #### H EMOGC ####[facility] (DEFAULT)[address] [facility] [place] [address] Platelet mean volume (Bld) [Entitic vol] 10.4 fL Normal 8.7-12.3 [facility] Comment on above: Performed By: #### H EMOGC ####[facility] (DEFAULT)[address] [place] [address] Platelets (Bld) [#/Vol] 256 10*3/uL Normal 146-337 [facility] Comment on above: Performed By: #### H [facility] ####[facility] (DEFAULT)[address] [place] [address] RBC (Bld) [#/Vol] 4.00 10*6/uL Low 4.38-5.83 [facility] Comment on above: Performed By: #### H EMO ####[facility] (DEFAULT)[address] [place] [address] RBC Distribution 13.5 % Normal 10.9-14.3 [facility] Comment on above: Performed By: #### H [facility] ####[facility] (DEFAULT)[address] [place] [address] WBC (Bld) [#/Vol] 7.78 10*3/uL Normal 3.73-10.10 [facility] Comment on above: Performed By: #### H [facility] ####[facility] (DEFAULT)[address] [place] [address] CHEM 7 (LYTES,BUN,CREA,GLUC) on 03-18-2025 Anion gap [Moles/Vol] 16 mmol/L 7 - 17 mmol/L [facility] Chloride [Moles/Vol] 94 mmol/L Low 98 - 10 8 mmol/L [facility] CO2 [Moles/Vol] 29 mmol/L 21 - 31 mmol/L [facility] Creatinine [Mass/Vol] 0.76 mg/dL 0.70 - 1.30 mg/dL [facility] eGFR, CKD-EPI, Male - PINF [facility] Glucose [Mass/Vol] 116 mg/dL 70 - 179 mg/dL [facility] Interpretation and review of laboratory results Abnormal [facility] Osmolality Calc [Osmolality] 284 [facility] Potassium [Moles/Vol] 3.8 mmol/L 3.5 - 5.0 mmol/L [facility] Sodium [Moles/Vol] 135 mmol/L 135 - 145 mmol/L [facility] Urea nitrogen [Mass/Vol] 12 mg/dL 7 - 25 mg/dL [facility] Urea nitrogen/Creatinine [Mass ratio] 16 mg/mg [facility] Anion gap [Moles/Vol] 16 mmol/L Normal 7-17 [facility] Comment on above: Performed By: #### X M #### [facility] (DEFAULT) [address] [place] [address] Chloride [Moles/Vol] 94 mmol/L Low 98-108 [facility] Comment on above: Performed By: #### X M #### [facility] (DEFAULT) [address] [place] [address] 87494 CO2 [Moles/Vol] 29 mmol/L Normal 21-31 [facility] Comment on above: Performed By: #### X M #### [facility] (DEFAULT) [address] [place] [address] 50172 Creatinine [Mass/Vol] 0.76 mg/dL Normal 0.70-1.30 [facility] Comment on above: Performed By: #### X M #### [facility] (DEFAULT) [address] [place] [address] 05571 eGFR, CKD-EPI, Male > Normal >=60 [facility] Comment on above: Result Comment: Repo rted eGFR is based on the CKD-EPI 1 equation using creatinine, age, and sex. Performed By: #### X M #### [facility] (DEFAULT) [address] [place] [address] 95677 Glucose [Mass/Vol] 116 mg/dL Normal Nonfastin g : 70-179 mg/dL; Fastin-99 [facility] Comment on above: Performed By: #### X M #### [facility] (DEFAULT) [address] [place] [address] 58522 Osmolality [Osmolality] 284 mosm/kg Normal 278-305 [facility] Comment on above: Performed By: #### X M #### [facility] (DEFAULT) [address] [place] [address] Potassium [Moles/Vol] 3.8 mmol/L Normal 3.5-5.0 [facility] Comment on above: Performed By: #### X M #### [facility] (DEFAULT) [address] [place] [address] Sodium [Moles/Vol] 135 mmol/L Normal 135-145 [facility] Comment on above: Performed By: #### X M #### [facility] (DEFAULT) [address] [place] [address] Urea nitrogen [Mass/Vol] 12 mg/dL Normal 7-25 [facility] Comment on above: Performed By: #### X M #### [facility] (DEFAULT) [address] [place] [address] 53392 Urea nitrogen/Creatinine [Mass ratio] 16 mg/mg Normal [facility] Comment on above: Performed By: #### X M #### [facility] (DEFAULT) [address] [place] [address] 68293 GLUCOSE POCon 03-18-2025 Glucose [Mass/Vol] 178 mg/dL 70 - 179 mg/dL [facility] POC Sample Type [facility]BL [facility] Glucose [Mass/Vol] 171 mg/dL 70 - 179 mg/dL [facility] Glucose [Mass/Vol] 143 mg/dL 70 - 179 mg/dL [facility] Glucose [Mass/Vol] 156 mg/dL 70 - 179 mg/dL [facility] Glucose [Mass/Vol] 127 mg/dL 70 - 179 mg/dL [facility] POC [facility] No Panel Informationon 03-18 POC Sample [facility] Portable XR Chest Viewson RADIOLOGY RADIOLOGY [facility] RADIOLOGY RADIOLOGY [facility] Radiology Study observation (narrative) [facility] Radiology Study observation (narrative) [facility] URINALYSIS REFLEX TO CULTURE PERFORMABLEon 03-18-2025 Appearance (U) Clear Normal Clear [facility] Comment on above: Order Comment: For i ndwelling catheters, specimen collection is acceptable on catheter day 1 and 2 only. ? Performed By: #### P TPTT #### [facility] (DEFAULT) [address] [place] [address] 75540 Bacteria ABSENT Normal ABSENT [facility] Comment on above: Order Comment: For i ndwelling catheters, specimen collection is acceptable on catheter day 1 and 2 only. ? Performed By: #### P TPTT #### [facility] (DEFAULT) [address] [place] [address] 75212 Blood Urine Negative Normal Negative [facility] Comment on above: Order Comment: For i ndwelling catheters, specimen collection is acceptable on catheter day 1 and 2 only. ? Performed By: #### P TPTT #### [facility] (DEFAULT) [address] [place] [address] 28337 Color (U) Yellow Normal Yellow [facility] Comment on above: Order Comment: For i ndwelling catheters, specimen collection is acceptable on catheter day 1 and 2 only. ? Performed By: #### P TPTT #### [facility] (DEFAULT) [address] [place] [address] 31275 Glucose Ql (U) Negative Normal Negative [facility] Comment on above: Order Comment: For i ndwelling catheters, specimen collection is acceptable on catheter day 1 and 2 only. ? Performed By: #### P TPTT #### [facility] (DEFAULT) [address] [place] [address] 54739 Ketones Ql (U) 15 mg/dL = Small Abnormal Negative [facility] Comment on above: Order Comment: For i ndwelling catheters, specimen collection is acceptable on catheter day 1 and 2 only. ? Performed By: #### P TPTT #### [facility] (DEFAULT) [address] [place] [address] 49731 Leukocyte esterase Test strip Ql (U) Negative Normal Negative [facility] Comment on above: Order Comment: For i ndwelling catheters, specimen collection is acceptable on catheter day 1 and 2 only. ? Performed By: #### P TPTT #### [facility] (DEFAULT) [address] [place] [address] 19180 Nitrites Urine Negative Normal Negative [facility] Comment on above: Order Comment: For i ndwelling catheters, specimen collection is acceptable on catheter day 1 and 2 only. ? Performed By: #### P TPTT #### [facility] (DEFAULT) [address] [place] [address] 68162 pH (U) 7.0 [pH] Normal 5.0-7.0 [facility] Comment on above: Order Comment: For i ndwelling catheters, specimen collection is acceptable on catheter day 1 and 2 only. ? Performed By: #### P TPTT #### [facility] (DEFAULT) [address] [place] [address] 32123 Protein Urine 30 mg/dL Abnormal Negative [facility] Comment on above: Order Comment: For i ndwelling catheters, specimen collection is acceptable on catheter day 1 and 2 only. ? Performed By: #### P TPTT #### [facility] (DEFAULT) [address] [place] [address] 96910 RBC Urine 0-2 Normal 0-2 [facility] Comment on above: Order Comment: For i ndwelling catheters, specimen collection is acceptable on catheter day 1 and 2 only. ? Performed By: #### P TPTT #### [facility] (DEFAULT) [address] [place] [address] 86128 Specific [place] Urine 1.011 Normal 1.001 -1.03 5 [facility] Comment on above: Order Comment: For i ndwelling catheters, specimen collection is acceptable on catheter day 1 and 2 only. ? Performed By: #### P TPTT #### [facility] (DEFAULT) [address] [place] [address] 58401 Squamous/Epithelial Cells, Urine 0-2/hpf Normal 0-2/hpf, 3-5/hpf = 1+ [facility] Comment on above: Order Comment: For i ndwelling catheters, specimen collection is acceptable on catheter day 1 and 2 only. ? Performed By: #### P TPTT #### [facility] (DEFAULT) [address] [place] [address] 92037 Urobilinogen Urine 0.2 E.U./dL Normal 0.2 E.U/dL, 1.0 E.U/dL [facility] Comment on above: Order Comment: For i ndwelling catheters, specimen collection is acceptable on catheter day 1 and 2 only. ? Performed By: #### P TPTT #### [facility] (DEFAULT) [address] [place] [address] 17961 WBC Urine 0 - 5 Normal 0 - 5 [facility] Comment on above: Order Comment: For i ndwelling catheters, specimen collection is acceptable on catheter day 1 and 2 only. ? Performed By: #### P TPTT #### [facility] (DEFAULT) [address] [place] [address] 82762 XR CHEST 1 VIEW PORTABLEon XR CHEST 1 VIEW PORTABLE EXAM: XR CHEST 1 VIEW PORTABLE, 03/18/2025 12:21 PM COMPARISON: XR CHEST 1 VIEW PORTABLE March 18, 2025 CLINICAL INDICATIONS: post chest tube removal FINDINGS: (Adequate technique) Implanted Devices: Interval removal of the right-sided pleural catheter Thorax: Trace right-sided pleural effusion. No pneumothorax. Bandlike opacity in the right mid lung suggestive of atelectasis. Bibasilar atelectasis. Stable right sixth rib deformity. IMPRESSION: No pneumothorax status post pleural catheter removal. Trace right-sided pleural effusion. I personally viewed and interpreted these images and I have reviewed and approved this report. Normal [facility] XR CHEST 1 VIEW PORTABLE EXAM: XR CHEST 1 VIEW PORTABLE, 03/18/2025 09:22 AM COMPARISON: March 17, 2025 CLINICAL INDICATIONS: eval chest tube RELEVANT CLINICAL HISTORY: FINDINGS: (Adequate technique) Implanted Devices: Stable right pigtail pleural drain. Thorax: Suspected small/trace residual right pleural effusion with residual volume loss at the right lung base. No pneumothorax or other acute change compared to the prior exam. IMPRESSION: No significant change from the previous examination Normal [facility] XR HIP RIGHT 2-3 VIEWSon XR HIP RIGHT 2-3 VIEWS EXAM: XR HIP RIGH T 2-3 VIEWS, 03/18/2025 12:20 PM COMPARISON: No prior studies available for comparison. CLINICAL INDICATIONS: hip pain leg weakness RELEVANT CLINICAL HISTORY: FINDINGS: 3 images obtained. Soft Tissue: There is no obvious soft tissue swelling. Extensive vascular calcifications. Bone: No acute osseous abnormality is identified. Partially visualized spinal fusion hardware within the lumbosacral spine. Hip: The hip joint is anatomically aligned. IMPRESSION: No acute osseous abnormality. Normal [facility] XR Hip - right 2 Viewson RADIOLOGY RADIOLOGY [facility] Radiology Study observation (narrative) [facility] XR Hip - right 2 ViewsOrdere d By: Noam Chavez on 03-18-2025 [facility] Work Phone: BODY FLUID PATH DIFFERENTIAL , PERFORMABLE ONLYOrdered By: Jamie Roe on 03-17-2025 Basophils/100 WBC (Body fld) 0 % [facility] Work Phone: Cells Counted Total (Body fld) [#] 100 [facility] Work Phone: [phone] Eosinophils/100 WBC (Body fld) 0 % [facility] Work Phone: Lymphocytes/100 WBC (Body fld) 5 % [facility] Work Phone: Monocytes+Macrophages Manual cnt (Body fld) [#] 17 % [facility] Work Phone: Neutrophils/100 WBC (Body fld) 78 % [facility] Work Phone: Pathologist review Cain (Unsp spec) [Interp] Jamie Roe MD [facility] Work Phone: Pathology report comments [Interpretation] Narrative c9vkyMEqRGWukLNbVBOgYewtj ySgKFUkdVDhA4UzvtoxVYziWS 5sHO4vsAwacFFhqRVoPAQoOwM dp7cwv794qFPbs2etURKZEUut MILYMVv2fUbnS63ep0G3RrdfE 61zuBRuFDO3RGPzUDHicWKtXN OaTXU0DAJvlAYqS3kgQNKpFR2 vrdsmIVlkHJclRGAomZQ6FYUd aCYrT3PsFYTqSQssMCJyvzj8Q lCtAm1igUDquMdqZBrjTBZaAC BsYWluXGZzMjBccHJvdGVjdHt bOdhtrNO9UWuqHavizO9maDOK IQKBXiyCVqqkqoSeZE3RVDBER vAHEC96ImQ7GpD3ZNrfwBwfEi eneoNjjQWrHsOcxQ6QiNStZPT rwrIcrkMurwozLG1pFVRbSmTx JVzjC71drhG5GbEQwW3oGZUjm wMuwqOvJD01HhETV8C9ULPfuh FxX5idl81nRdYhynDpGD9tTGN zpigaJ8OfrTHqcGVtr0KyuK7m YL0fRS7aN2Jfg3XgIJ9ng92pW EJwPT7rVVjuRsptuVC1GMncXp juaW3kdLSSYYGVRdfGOhbmxcM uUH9IGLYBGQ4HuAYtFoFfbHF2 WR85XNTyESEtwVWzNCsoN479V HBsYWluXGZzMjBccGFyXHBhcm CqxMYgDZNcG02QFuGGDOHYQ15 GWMKRHZNIB7UNN1kVGSUyLsJb gOA5Ee5kT52xPQHXHDNRATkBQ 2XkEIEOUJSMVUEpWI2EZElYKV MYLVDBL02KKQXYQWFBG5YET2p FRQtZCEBWKXHLT77DXMSGBVNI U5JEQQZAUDFTOZeHMHXHGa4RH KVOUWCXGP2LFBbBVbOxPMbZcY teJf7gjWKLxYUkNYUEw0Zrgoq cBroaE3t1YHHVECKEBG3MZVXT X84PAIWVOLYMW7CRLRYYDoPBR CMEC27UNTEPEVNTK1GKN6pGJN UUFeKOXRLRS71UJJKZDDRTE8Q OEZTKJIHYJlIHSiHGTV7HNQIX RXDDNS1UNWcMUoKiKPHCP0NXK hYJD3iiYJCNOZAPQYGjYN3VfJ == [facility] Work Phone: Specimen source Nom (Unsp spec) PLEURAL FLUID [facility] Work Phone: [facility] Work Phone: CBC,PLATELETSon 03-17-2025 Erythrocyte distribution width (RBC) [Ratio] 13.7 % 10.9 - 14.3 % [facility] Hematocrit (Bld) [Volume fraction] 35.8 % Low 39.6 - 48.8 % [facility] Hemoglobin (Bld) [Mass/Vol] 11.7 g/dL Low 13.4 - 16.8 g/dL [facility] Interpretation and review of laboratory results Abnormal [facility] MCH (RBC) [Entitic mass] 32.3 pg 26. 1 - 33.3 pg [facility] MCHC (RBC) [Mass/Vol] 32.7 g/dL 31.9 - 36.5 g/dL [facility] MCV (RBC) [Entitic vol] 98.9 fL High 79.0 - 94.5 fL [facility] Platelet mean volume (Bld) [Entitic vol] 10.5 fL 8.7 - 12.3 fL [facility] Platelets (Bld) [#/Vol] 220 10*3/uL 146 - 337 K/uL [facility] RBC (Bld) [#/Vol] 3.62 10*6/uL Low [facility] WBC (Bld) [#/Vol] 7.59 10*3/uL 3.73 - 10.10 K/uL [facility] Hematocrit (Bld) [Volume fraction] 35.8 % Low 39.6-48.8 [facility] Comment on above: Performed By: #### F LLD, FLP #### [facility] (DEFAULT) [address] [address] Hemoglobin (Bld) [Mass/Vol] 11.7 g/dL Low 13.4-16.8 [facility] Comment on above: Performed By: #### F LLD, FLP #### [facility] (DEFAULT) [address] [address] MCV (RBC) [Entitic vol] 98.9 fL High 79.0-94.5 O [facility] Comment on above: Performed By: #### F LLD, FLP #### [facility] (DEFAULT) [address] [address] Mean Cell Hgb 32.3 pg Normal 26.1-33.3 [facility] Comment on above: Performed By: #### F LLD, FLP #### [facility] (DEFAULT) [address] [address] Mean Cell Hgb Conc 32.7 g/dL Normal 31.9-36.5 [facility] Comment on above: Performed By: #### F LLD, FLP #### [facility] (DEFAULT) [address] [place] [address] 63963 Platelet mean volume (Bld) [Entitic vol] 10.5 fL Normal 8.7-12.3 [facility] Comment on above: Performed By: #### F LLD, FLP #### [facility] (DEFAULT) [address] [place] [address] 37228 Platelets (Bld) [#/Vol] 220 10*3/uL Normal 146-337 [facility] Comment on above: Performed By: #### F LLD, FLP #### [facility] (DEFAULT) [address] [place] [address]406 RBC (Bld) [#/Vol] 3.62 10*6/uL Low 4.38-5.83 [facility] Comment on above: Performed By: #### F LLD, FLP #### [facility] (DEFAULT) [address] [place] [address] 59775 RBC Distribution 13.7 % Normal 10.9-14.3 [facility] Comment on above: Performed By: #### F LLD, FLP #### [facility] (DEFAULT) [address] [place] [address] 27024 WBC (Bld) [#/Vol] 7.59 10*3/uL Normal 3.73-10.10 [facility] Comment on above: Performed By: #### F LLD, FLP #### [facility] (DEFAULT) [address] [place] [address] 81472 CHEM 7 (LYTES,BUN,CREA,GLUC) Ordered By: Sridevi De Jesus on 03-17-2025 Anion gap [Moles/Vol] 15 mmol/L 7 - 17 mmol/L [facility] Chloride [Moles/Vol] 93 mmol/L Low 98 - 10 8 mmol/L [facility] CO2 [Moles/Vol] 32 mmol/L High 21 - 31 mmol/L [facility] Creatinine [Mass/Vol] 0.86 mg/dL 0.70 - 1.30 mg/dL [facility] eGFR, CKD-EPI, Male 90 - PINF [facility] Glucose [Mass/Vol] 123 mg/dL 70 - 179 mg/dL [facility] Interpretation and review of laboratory results Abnormal [facility] Osmolality Calc [Osmolality] 288 [facility] Potassium [Moles/Vol] 3.2 mmol/L Low 3.5 - 5.0 mmol/L [facility] Sodium [Moles/Vol] 137 mmol/L 135 - 145 mmol/L [facility] Urea nitrogen [Mass/Vol] 15 mg/dL 7 - 25 mg/dL [facility] Urea nitrogen/Creatinine [Mass ratio] 17 mg/mg [facility] CHEM 7 (LYTES,BUN,CREA,GLUC) on 03-17-2025 Anion gap [Moles/Vol] 15 mmol/L Normal 7-17 [facility] Comment on above: Performed By: #### X M #### [facility] (DEFAULT) [address] [address] Chloride [Moles/Vol] 93 mmol/L Low 98-108 [facility] Comment on above: Performed By: #### X M #### [facility] (DEFAULT) [address] [place] [address] 46819 CO2 [Moles/Vol] 32 mmol/L High 21-31 [facility] Comment on above: Performed By: #### X M #### [facility] (DEFAULT) [address] [address] Creatinine [Mass/Vol] 0.86 mg/dL Normal 0.70-1.30 [facility] Comment on above: Performed By: #### X M #### [facility] (DEFAULT) [address] [place] [address] 10100 GFR/1.73 sq M.predicted among non-blacks MDRD (S/P/Bld) [Vol rate/Area] 90 mL/min/{1.73_m2} Normal >=60 [facility] Comment on above: Result Comment: Repo rted eGFR is based on the CKD-EPI 2020 equation using creatinine, age, and sex. Performed By: #### X M #### [facility] (DEFAULT) [address] [place] [address] 78837 Glucose [Mass/Vol] 123 mg/dL Normal Nonfastin g : 70-179 mg/dL; Fastin-99 [facility] Comment on above: Performed By: #### X M #### [facility] (DEFAULT) [address] [place] [address] Osmolality [Osmolality] 288 mosm/kg Normal 278-305 [facility] Comment on above: Performed By: #### X M #### [facility] (DEFAULT) [address] [place] [address]10 Potassium [Moles/Vol] 3.2 mmol/L Low 3.5-5.0 [facility] Comment on above: Performed By: #### X M #### [facility] (DEFAULT) [address] [place] [address] 68377 Sodium [Moles/Vol] 137 mmol/L Normal 135-145 [facility] Comment on above: Performed By: #### X M #### [facility] (DEFAULT) [address] [place] [address] 38951 Urea nitrogen [Mass/Vol] 15 mg/dL Normal 7-25 [facility] Comment on above: Performed By: #### X M #### [facility] (DEFAULT) [address] [place] [address] 59643 Urea nitrogen/Creatinine [Mass ratio] 17 mg/mg Normal [facility] Comment on above: Performed By: #### X M #### [facility] (DEFAULT) [address] [place] [address]6319 CHEST TUBE PLACEMENTon 03-17 CHEST TUBE PLACEMENT EXAM: IR CHEST TUBE PLACEMENT, 03/16/2025 16:39 PM CLINICAL INDICATIONS: 75-year-old male with a right pleural fluid collection, here for drain placement. MEDICATIONS: 4:09 PM 03/16/25 fentaNYL (SUBLIMAZE) injection 0-300 mcg Ordered and Given 25 mcg Given Rate: 0 Route: Intravenous; 4:09 PM 03/16/25 Midazolam (VERSED) injection 0-10 mg Ordered and Given 0.5 mg Given Rate: 0 Route: Intravenous; 4:16 PM 03/16/25 fentaNYL (SUBLIMAZE) injection 0-300 mcg Given 25 mcg Given Rate: 0 Route: Intravenous; 4: PM 03/16/25 Midazolam (VERSED) injection 0-10 mg Given 0.5 mg Given Rate: 0 Route: Intravenous; 4: PM 03/16/25 Midazolam (VERSED) injection 0-10 mg Given 0.5 mg Given Rate: 0 Route: Intravenous; 4:30 PM 03/16/25 fentaNYL (SUBLIMAZE) injection 0-300 mcg Given 25 mcg Given Rate: 0 Route: Intravenous; OPERATORS: Franci Benoit MD(Attending), Roberto Burton M.D. (Fellow). CONSENT: Following discussion of the risks, benefits and alternatives of the procedure, written informed consent was obtained. SEDATION: I performed Moderate Sedation which included the presence of a nurse that assisted in monitoring the patient's level of consciousness and physiologic status. After administration of sedative medication(s), I spent 28 minutes of continuous [id number] time with the patient. COMPARISON: CT chest March 16, 2025 TIME OUT: Prior to the procedure a time out was performed in the presence of the patient and all personnel involved in this case. The patient identity, procedure type, procedure side/site, and allergies were verified. TECHNIQUE: Position: The patient was transferred to the IR laboratory and positioned left lateral decubitus on the procedure table. The right chest was prepared and draped using maximum sterile barrier technique. This consisted of cap, mask, hand hygiene, sterile gown, sterile gloves, cutaneous antisepsis, and occlusive sterile draping of the field. Time Out: A time out was performed prior to the procedure in the presence of the patient and all personnel involved in the case. The patient's identity, procedure type, procedure side/site, and allergies were verified. Procedure/Findings: Images of the target were saved to the image archive system. Initial sonographic images were obtained demonstrating loculated right-sided fluid collection A 10 cm Yueh centesis needle was advanced using Ultrasound guidance into the collection. Approximately 60 mL of serosanguinous fluid was aspirated from the lesion and sent to the laboratory for culture. A guidewire was then passed through the needle and the tract was dilated over the wire. A 10 Sammarinese M drain was then placed over the wire, and additional images were obtained to confirm positioning of the catheter within the collection. The catheter was sutured to the skin with a single stitch, and connected to a Pleur-evac drain. A total of 100 ml was drained by the time the patient left the department. Post-Procedure: Post-procedure images demonstrate the pigtail of the catheter within the collection. The patient tolerated the procedure well, with no immediate complications. FINDINGS: Loculated right pleural collection with new 10-Sammarinese M drain in place IMPRESSION: Status post ultrasound guided insertion of a 10 Fr right chest tube. PLAN: Initially recommend chest tube to suction, with remainder of care per primary team. Franci Benoit MD was in the room and participated during all dawson portions of this procedure. I personally viewed and interpreted these images and I have reviewed and approved this report. Table formatting from the original result was not included. Meds Meds Time Date Event Details User 3:49 PM 03/16/25 Timeout: Sign-in Signed by Flora Atwood RN at 03/16/2025 3:49 PM GC 4:04 PM 03/16/25 Timeout: Hand-off Signed by Flora Atwood RN at 03/16/2025 4:04 PM GC 4:09 PM 03/16/25 fentaNYL (SUBLIMAZE) injection 0-300 mcg Ordered and Given 25 mcg Given Rate: 0 Route: Intravenous MC 4:09 PM 03/16/25 Midazolam (VERSED) injection 0-10 mg Ordered and Given 0.5 mg Given Rate: 0 Route: Intravenous MC 4:16 PM 03/16/25 fentaNYL (SUBLIMAZE) injection 0-300 mcg Given 25 mcg Given Rate: 0 Route: Intravenous MC 4:16 PM 03/16/25 Midazolam (VERSED) injection 0-10 mg Given 0.5 mg Given Rate: 0 Route: Intravenous MC 4:23 PM 03/16/25 Timeout: TimeOut Signed by Rogelio Crane RN at 03/16/2025 4:23 PM 4:27 PM 03/16/25 Midazolam (VERSED) injection 0-10 mg Given 0.5 mg Given Rate: 0 Route: Intravenous MC 4:30 PM 03/16/25 fentaNYL (SUBLIMAZE) injection 0-300 mcg Given 25 mcg Given Rate: 0 Route: Intravenous MC 4:37 PM 03/16/25 Timeout: Sign-out Signed by Rogelio Crane RN at 03/16/2025 4:37 PM Physician Physician Time Date Event Details User 3:48 PM 03/16/25 Franci Benoit MD - Laci Role: Primary Service: Interventional Radiology (Panel 1) 3:49 P (more content not included)... Normal [facility] RADIOLOGY [facility]Y [facility] CYTOLOG[facility], NON-GYNOrdered By: Clarissa Cotter on 03-17-2025 CYTOLOGIC DIAGNOSIS e8nruFVaKVFsiBUyEJBvKwczs qFuZXLluVImG4NmgzaaYIwlFO 1sAE9pwLxvmVUiaVWaMZLqEvF cg3zgy896hMMbb1zhDSAYzluy mAh5w7abJOCYkB9xf7d7gI01X BHlgG6fyPOfRVgkemFqAGdkda SsgmFbCwm1GVC7vIbkHxztzQF 2xPPlgBJ9IFxru1LygEiniNbo FwE9PnlnAkZwMZoncKP1aIAyt DdcqTXbGU9na6ctrLW1vwDzLI R0oBxviPR5tYttroauk4gxwSG 6vKG0UGqkcRA3QBwnAqQjN9ze BINqoM7kX56xW6jjCVYmcDxvT ZdoJCVizLK5EQP8KZBnw9ceXQ AhaNQsaUGlAmJkKZkrTvh7n1h dMUIjlN57dLFaqbM0bYahRDdh oQM7MI51CQelg9TxDSAqnSeuQ QAzvT6pPmVtKHiqqcTlmlBnrq IjWXuxrkKnevLbVLorahZyh5J hqlQrqLG4DTefdmBdoLV7vCic DLKzA4C8I967TVihroWhlxCoH qWflmg8KGAmjNptkGxawBouvy NzIVpmnzKtqeXqEqEjiZB9ASj iExYpCgIcmQC0XPwrGfRdcBP5 TUmmaESrlSI0FRcyfCS8ZNe8B Xs2OVjyIVwdTal5aShqxPL7HK mgeP7yXFAhR33nUcP5x7gziTW 6hAX9VSlkdQJ9XCnyLxGvA1jn AQVhrZ4lM78pR1itTXTzmVgjP WmgZCVfhUE7CSP0PAQoj7dxHQ KozEFacGEeQgNdONdoNdz0g6m qHAFekW40gJOczbJ0uSbmTG82 GSshx7FvLVCwqFwtDWZvzZ9uV zIzXGxldmVsbmZjbjIzXGxldm DyalCyXNwblcShr9JfzjWgzRR 2WInkdySlgKL4vMemZSFaR3P0 O521GWshleIxyeKfFuAjdge6V GYxfXtcbGlzdGxldmVsXGxldm JzxzMwQiKuwLN7XYicFyJsFnH pqIY1HVqyUyJfrUS7GGbalWEa cSC2TDrahJE6OMb6QWk9EZvoU GajZdu5oMlseFI0FLsaoA4xIT XfG51yCpO3z4lleFL5oLY8ZBm vsHV8EGaxPxTcK9owUVMfzC8h S06xH6gbHHWhuWewMXmgTQCrq YA1OCE1HOPmq9oiQBRgdJTxxK FrIpTgCBbkZiz7h8dzTNTgeN9 3rYIfawS2sPzqGJ11OMrnz7Ef DZBmfXqsBLUqgH5qTvKwDTcqt mVsbmZjbjIzXGxldmVsamMwXG bggaByh9CcqvVehHE1RDkdybT nhDN4lJvjFOXyB2K1I107KYyu kaEjgqIgXrUdzyz5POMkfYhzm GlzdGxldmVsXGxldmVsbmZjMj UopQN0PQwiGsMkKlDiwTX6TXe tMsPkdVS0NBpphOUzpLW5CIjb qSD8KXt4JCl4VEdhOEgiBfz2u VuoaQM0HPsfnE2mXCClU90xSu W6eY10LMkvoQgvjK47SBIvkDY rbZSlrYY6XXdovTxkvJ95OPSi kHWuZXklc1MaOFRxRWU4QECnJ qnojKqpwS29AJLymERtB421hx IzQQjfRK43SEQnjLLjltWeOdY jFGXdtGLsyAI4KWPdNW1ooqtx SXxwGErwMINiipE1EYOknGLgV 2JmMCMeTK5pnlahPJO2OCpbUW MfJAV5KcLxOCUaw0Branv7KpT cvOw3i2qoCMWpDDIpeBand5vj TBI1RBAmjJTjO5anfC1sZQGzW I9buglpd8rqYKuoFCabTXLivU E5wuE5QQEdbVYbF9VkiN3jATK gQFIpksNytYpkaZ4kKpkfmjNk XGNmMSBBLiBQTEVVUkFMIEZMV FdZLKztVdDeJCRZTG8GK9gGDS BHRTFOZBbZRUAQT2TWGEnzP2M xICBccGFyXGIwXGNmMFxwYXJc KlksRtRmKbbJEXdxPBaMC23ZX 0lTOlxwYXJcbGkzNjBcbHMxXG lsdmwwXHBsYWluXGJcZnMyMlx xGfDtIb6jDJJerGihKH84ALUq bGxzIEFyZSBJZGVudGlmaWVkX AGcmwKPS5K4DVVHhmIyUZ8bJW Bgn54lEgMgC9WeWWZjjvjonSH cbHMwXHBhciAgXHBhclxwYXJ9 [facility] Work Phone: Case Report [facility] Work Phone: Clinical History b4gfpHTpNBCfqUDqPyJr MDAwX PXqg7srRXUteBEjNmYjCvWvZx MtBmdqiGAbNXKlDyGjf2wyj25 1eYVyg4dzBYHzKyV0lHCeIHSw tPKhF955RBRbRJwol5hfx8TxU PMlaLVzf5L0DMEPryafrEx8tO vdR93fj1K0TmucI6ysBERvARD cM0BcOU1xARDyEan3ALA4FDF7 PECtKNNiX0VyQG3nJNOddIOdE Jv4d1yhoMzdHGHbJCI4r6ioBS axslCtUJ0nhq0zaRo2j6kuaiD xLOZiSRCfeYWJPJMbV7CokNlt Mi9vnTq2jHxbChkqWEA3Nmb1E A0den27gvg5rHdeJOVpfjbpLk O5WZerPBWrgfqyFFv5AGveGFV dcWZ3AWBnmIKaG3JiZXYqUC1r kru9OUO5VWqlTMScPxY7CURbm ABlXKEozLpqDUapq994DKD7Sz CjPV2mW0Xgz6S5zG4jpWHfLND vnOTnLwCdRBTdri7nkCDsKBoj f0IgBMQ4qgE6iIVfdXSpBURmM D33Pefup5ShPhypUHD2MAHtyn Pch3Hqj0niOuXbpnHsI3czF2V wWIIxJCTzHYXxVrMvdqKlp1Ie v4SxkRSayKj4t5ijGFJjRYVqx Osif4jmBYQ7HJGvB3B3mUOgw9 atCOfxPYTglQW0htN4JKHpyYF xE4XmmK2xWZSeCU2zcmg7v3zv AQW6CWdxBFHnVsU1hdP5UCSrz KFoEFThzOnrDAwoi277KWX1Cn DkXVQck0JqJ5OdnBwjY72qiPh lO70fNPSzlDfwgQ5qoCfvbR7v ZjBcZnMyNFxxbFxwbGFpblxmM VxmczIwXGxhbmcxMDMzXGhpY2 auQzOkGANmyLmaAEqil2VsGAL xXGNmMlxmczIwIFIgcGxldXJh mTKfEdY0x0vmal0gBOMoty2= [facility] Work Phone: For Immediate Release to Patient's MyChart? Yes Yes [facility] Work Phone: Gross Description s2opcZRbCUMzqGLtGIVn Mlxhb uAiQDZxdRJgC2HjoarqREnoBQ 8vYC0rqRqxqVBdlOLfLONgAlA gs4roz269yEXyj7xjRCXBbvec iRm4iIgjN86vt6U1FlipA30tj KJmDES5WJCfBVUovYPlQWElXD Y1TGUyeUHlJ5yyQROhZE5snfu uPTeyQBrdLNGhwKT8BGCwsDPq M8NjBETgCKigIXGdfgs6UpMkP y4msUQrgQmsGZigMVBjUFVyMD luXGZzMjAgUGxldXJhbCBGbHV gKErgTPAyJlBshXuwP4xddXL8 KBPtHGVoaOHqkR8kqXepBPtgU PSyHoNcuOOat7GulkSkfPbrWL COELVsvZCnrvYiSNIoE9t7c7U mlZ7si8rpSQFzbEWuCEA9WVai XHBhciAxIENCXHBhclxwYXIgV PbhUAYiaYIuvZ7rsgHwbXZnWQ JudP2qAe2smXAoiY91MLRnDER fYCD7ZoLaSzN6UWE3TAI0HcGf SFPgCnf6KKJwgKHvRHUmnJEpW MDzroAAfD5tZBXmIUHiiXJtEB DxlF65HCFiIjMmnQDtz7JaEVo tlfwdNDB3ZgQjZhM7AVC4JZBr MtR5PPHeWzm1VFWvwOSsKJOcb OJeUMDkiZN7gY5nZHQvgGQ6QG BrAgWgi7TmurZ9SGLuuG57nLS zICBccGFyfQ== [facility] Work Phone: Professional Interpretation Performed at: [facility] Work Phone: Comment on above: f1jxuMMhFCSqs4lgLKHo eHJuRpHoZsJtEcUcSicuxYKyXEmujwAdLBhcd5KaY 5HjRbLwLOixhzThQZZdHyoxcdvaWXKpMSY5phGvRRZrKKlbVQKpLRyfQw8vqX StmWovZoCgDWJos1nrzqKQikrpjAo7g4ocLAKlAeX8tHPwBUyqG9anaxIzaSD gVTSrKMh9aP29PVQmuP3zqQZaDLvtezTuMlH9PXfcXPCkFqP7WTNbhUKeKPGq K8dqHZWuXIlaSUHzVAouvEMdBMX8mVtvj6R4pOXgmIHfdJphKzQfAcJgNiNTf 8BdXPa9oUpbT3MsFHRkKgJ9dLHvIOGfCZsrGVNgXSVedrU2dT34APjigiU2vR Vdc1Ljw95qi293qY4kzOUlZTT2FFIdVIUxcPXaZKZbWQS3JNPibPNnS9euONY eYR9zxpdcWQkjJGmsXGUnvBT3IEWpnIFdS8WdEIDsKGecFTJtwlo9IoXuTt7q iHYslIhmMZxnl2yfp0lyzYEuVxw2SQMuUiSkOilqKDvbk3Gpc3orMPYeoy8hT KP2bOZplNgoc6W8rQDtGYKkzLFclnJhBCQuCdF4MAcwUQ1dal29FXXhVOR4fw 3miFDwsBignrIkeFRhNDxaX9ZdTZBmr913TXGbX5EnFEVom1U0nrXtKtNrGPM xgTA0ahH0YIVlVOf2xMWkgpI0prBcnZEqI1wrvY9zXDZnAQ1hrbgyl0mkVOtn GEgpTCExdXB8kwM0BVTkqACaM0OgtC6iDIArMSbwGLIbizq6OzYeFi0okNTzz TcyMFxzYmtwYWdlXHBnbmNvbnRccGduZGVjXHBsYWluXHBsYWluXGYwXGZzMj JweALjXVswpUDmfzvgSNyjmhMzDKhpvndkKILsCXeoD8bnPtIbCQRdqNekNRp nu5QaTXKcMQDuNfWkB6HSAPeCYR9BPwTMZUECC0AVYJVHAaFVVhNXBXpKTZXB MZUSZYHYQvLXW9FSABJiekB4FMMsD4LdlGGkJGAxPZZ9SLncPCIlQ00zzK3fs YQlAX3ucD1kFGOhUBEbgSLyaGjifwFeOYdaflOvGSQjZxsvfemfYLUcVHQ2jw Xuv0kfn146dQEsk5leVOPxUm3nQGRwdsJeRjDjUYSzISZbFHNwmUJfO050NOD sYWluXGYwXGZzMjAgfX0= [facility] Work Phone: GENERAL PROCEDUREon 03-17-20 Radiology Study observation (narrative) [facility] POCon 03-17-2025 Glucose [Mass/Vol] 142 mg/dL 70 - 179 mg/dL [facility] [Mass/Vol] 122 mg/dL 70 - 179 mg/dL [facility] POC Sample Type CAPBL [facility] Glucose [Mass/Vol] 183 mg/dL High 70 - 179 mg/dL [facility] Interpretation and review of laboratory results Abnormal [facility] Glucose [Mass/Vol] 159 mg/dL 70 - 179 mg/dL [facility] Glucose [Mass/Vol] 152 mg/dL 70 - 179 mg/dL [facility] LACTATE DEHYDROGENASE BODY F LUIDon 03-17-2025 LDH Lactate to pyruvate reaction (Body fld) [Catalytic activity/Vol] 762 U/L [facility] - Chemistry and C hemistry - challengeon 03-17-2025 Glucose [Mass/Vol] 127 mg/dL 70 - 179 mg/dL [facility] No Panel Informationon 03-17 POC [facility] P[facility] Sample Type CAPBL [facility] PROTEIN, FLUIDOrdered By: Er in [place] on 03-17-2025 Protein (Body fld) [Mass/Vol] 3.1 g/dL [facility] Portable XR Chest Viewson RADIOLOGY RADIOLOGY [facility] Radiology Study observation (narrative) [facility] XR CHEST 1 VIEW PORTABLEon 1 XR CHEST 1 VIEW PORTABLE EXAM: XR CHEST 1 VIEW PORTABLE, 03/17/2025 06:33 AM COMPARISON: XR CHEST 1 VIEW PORTABLE March 16, 2025 CLINICAL INDICATIONS: s/p chest tube placement RELEVANT CLINICAL HISTORY: FINDINGS: (Adequate technique) Implanted Devices: New right pigtail chest tube terminates overlapping the lateral lower lung. Thorax: Significantly decreased right pleural effusion. Improved bilateral lower lung atelectasis. No pneumothorax. Stable cardiomediastinal silhouette. Right sixth rib partial defect, stable. IMPRESSION: 1. Significantly decreased right pleural effusion with new pigtail chest tube placement. No pneumothorax. 2. Improved bilateral lower lung atelectasis. I personally viewed and interpreted these images and I have reviewed and approved this report. Normal [facility] BODY FLUID CELL COUNTOrdered By: Sridevi Mendiola on 03-16-2025 RBC (Body fld) [#/Vol] 55.59 10*3/uL [facility] Specimen source Nom (Unsp spec) PLEURAL FLUID [facility] WBC (Body fld) [#/Vol] 2.401 10*3/uL [facility] BODY FLUID CELL COUNTon 02-17 Gross Appearance (Fluid) Normal [facility] Comment on above: Result Comment: Red [place] Performed By: #### P TPTT #### [facility] (DEFAULT) [address] [place] [address] RBC (Bld) [#/Vol] 0.30689 10*6/uL Normal [facility] Comment on above: Result Comment: Flui d debris present, results may not be accurate. The reference range has not been established for this fluid. Clinical correlation is recommended. Performed By: #### P TPTT #### [facility] (DEFAULT) [address] [address] Specimen source Nom (Unsp spec) PLEURAL FLUID Normal [facility] Comment on above: Performed By: #### P TPTT #### [facility] (DEFAULT) [address] [address] Supernatant (Fluid) Normal [facility] Comment on above: Result Comment: [place] ge Clear Performed By: #### P TPTT #### [facility] (DEFAULT) [address] [address] Total Nucleated Cells (TNC) 2401 /uL Normal [facility] Comment on above: Result Comment: Flui d debris present, results may not be accurate. The reference range has not been established for this fluid. Clinical correlation is recommended. Performed By: #### P TPTT #### [facility] (DEFAULT) [address] [address] BODY FLUID PATH DIFFERENTIAL , PERFORMABLE ONLYon 03-16-2025 Basophils (Fluid) 0 % Normal [facility] Comment on above: Result Comment: The reference range has not been established for this fluid. Clinical correlation is recommended. Performed By: #### P TPTT #### [facility] (DEFAULT) [address] [address] Cells Counted (Fluid) 100 Normal [facility] Comment on above: Performed By: #### P TPTT #### [facility] (DEFAULT) [address] [address] Comment (Fluid) Normal [facility] Comment on above: Result Comment: Ther e is no evidence of malignancy. Blood is present. Acute and chronic inflammatory cells present. No microorganisms seen. Performed By: #### P TPTT #### [facility] (DEFAULT) [address] [place] [address] Differential Reviewed By Jamie Roe MD Normal [facility] Comment on above: Performed By: #### P TPTT #### [facility] (DEFAULT) [address] [place] [address] Eosinophils Fluid 0 % Normal [facility] Comment on above: Result Comment: The reference range has not been established for this fluid. Clinical correlation is recommended. Performed By: #### P TPTT #### [facility] (DEFAULT) [address] [place] [address] Lymphocytes (Fluid) 5 % Normal [facility] Comment on above: Result Comment: The reference range has not been established for this fluid. Clinical correlation is recommended. Performed By: #### P TPTT #### [facility] (DEFAULT) [address] [place] [address] Monocytes/Macrophages, Fluid 17 % Normal [facility] Comment on above: Result Comment: The reference range has not been established for this fluid. Clinical correlation is recommended. Performed By: #### P TPTT #### [facility] (DEFAULT) [address] [place] [address] Neutrophils (Fluid) 78 % Normal [facility] Comment on above: Result Comment: The reference range has not been established for this fluid. Clinical correlation is recommended. Performed By: #### P TPTT #### [facility] (DEFAULT) [address] [place] [address] BODY FLUID TECH DIFFERENTIAL Ordered By: Raven Rodríguez on 03-16-2025 [facility] CBC,PLATELETSon 03-16-2025 Erythrocyte distribution width (RBC) [Ratio] 13.7 % 10.9 - 14.3 % [facility] Hematocrit (Bld) [Volume fraction] 35.7 % Low 39.6 - 48.8 % [facility] Hemoglobin (Bld) [Mass/Vol] 11.7 g/dL Low 13.4 - 16.8 g/dL [facility] Interpretation and review of laboratory results Abnormal [facility] MCH (RBC) [Entitic mass] 32.3 pg 26. 1 - 33.3 pg [facility] MCHC (RBC) [Mass/Vol] 32.8 g/dL 31.9 - 36.5 g/dL [facility] MCV (RBC) [Entitic vol] 98.6 fL High 79.0 - 94.5 fL [facility] Platelet mean volume (Bld) [Entitic vol] 10.5 fL 8.7 - 12.3 fL [facility] Platelets (Bld) [#/Vol] 200 10*3/uL 146 - 337 K/uL [facility] RBC (Bld) [#/Vol] 3.62 10*6/uL Low [facility] WBC (Bld) [#/Vol] 8.77 10*3/uL 3.73 - 10.10 K/uL [facility] Hematocrit (Bld) [Volume fraction] 35.7 % Low 39.6-48.8 [facility] Comment on above: Performed By: #### F LLD, FLP #### [facility] (DEFAULT) [address] [address] Hemoglobin (Bld) [Mass/Vol] 11.7 g/dL Low 13.4-16.8 [facility] Comment on above: Performed By: #### F LLD, FLP #### [facility] (DEFAULT) [address] [address] MCV (RBC) [Entitic vol] 98.6 fL High 79.0-94.5 O [facility] Comment on above: Performed By: #### F LLD, FLP #### [facility] (DEFAULT) [address] [address] Mean Cell Hgb 32.3 pg Normal 26.1-33.3 [facility] Comment on above: Performed By: #### F LLD, FLP #### [facility] (DEFAULT) [address] [place] [address] Mean Cell Hgb Conc 32.8 g/dL Normal 31.9-36.5 [facility] Comment on above: Performed By: #### F LLD, FLP #### [facility] (DEFAULT) [address] [place] [address] Platelet mean volume (Bld) [Entitic vol] 10.5 fL Normal 8.7-12.3 [facility] Comment on above: Performed By: #### F LLD, FLP #### [facility] (DEFAULT) [address] [place] [address] Platelets (Bld) [#/Vol] 200 10*3/uL Normal 146-337 [facility] Comment on above: Performed By: #### F LLD, FLP #### [facility] (DEFAULT) [address] [place] [address] RBC (Bld) [#/Vol] 3.62 10*6/uL Low 4.38-5.83 [facility] Comment on above: Performed By: #### F LLD, FLP #### [facility] (DEFAULT) [address] [place] [address] RBC Distribution 13.7 % Normal 10.9-14.3 [facility] Comment on above: Performed By: #### F LLD, FLP #### [facility] (DEFAULT) [address] [place] [address] WBC (Bld) [#/Vol] 8.77 10*3/uL Normal 3.73-10.10 [facility] Comment on above: Performed By: #### F LLD, FLP #### [facility] (DEFAULT) [address] [place] [address] CHEM 7 (LYTES,BUN,CREA,GLUC) on 03-16-2025 Anion gap [Moles/Vol] 16 mmol/L 7 - 17 mmol/L [facility] Chloride [Moles/Vol] 99 mmol/L 98 - 10 8 mmol/L [facility] CO2 [Moles/Vol] 27 mmol/L 21 - 31 mmol/L [facility] Creatinine [Mass/Vol] 0.96 mg/dL 0.70 - 1.30 mg/dL [facility] eGFR, CKD-EPI, Male 82 - PINF [facility] Glucose [Mass/Vol] 178 mg/dL 70 - 179 mg/dL [facility]olality] [facility] Potassium [Moles/Vol] 3.8 mmol/L 3.5 - 5.0 mmol/L [facility] Sodium [Moles/Vol] 138 mmol/L 135 - 145 mmol/L [facility] Urea nitrogen [Mass/Vol] 16 mg/dL 7 - 25 mg/dL [facility] Urea nitrogen/Creatinine [Mass ratio] 17 mg/mg [facility] Anion gap [Moles/Vol] 16 mmol/L Normal 7-17 [facility] Comment on above: Performed By: #### M GO, HFP, CHM7, IPB ####[facility] (DEFAULT)[address] [place] [address] Chloride [Moles/Vol] 99 mmol/L Normal 98-108 [facility] Comment on above: Performed By: #### M GO, HFP, CHM7, IPB ####[facility] (DEFAULT)[address] [place] [address] CO2 [Moles/Vol] 27 mmol/L Normal 21-31 [facility] Comment on above: Performed By: #### M GO, HFP, CHM7, IPB ####[facility] (DEFAULT)[address] [place] [address] Creatinine [Mass/Vol] 0.96 mg/dL Normal 0.70-1.30 [facility] Comment on above: Performed By: #### M GO, HFP, CHM7, IPB ####[facility] (DEFAULT)[address] [place] [address] GFR/1.73 sq M.predicted among non-blacks MDRD (S/P/Bld) [Vol rate/Area] 82 mL/min/{1.73_m2} Normal >=60 [facility] Comment on above: Result Comment: Repo rted eGFR is based on the CKD-EPI 2020 equation using creatinine, age, and sex. Performed By: #### M GO HFP, CHM7, IPB ####[facility] (DEFAULT)[address] [place] [address] Glucose [Mass/Vol] 178 mg/dL Normal Nonfastin g : 70-179 mg/dL; Fastin-99 [facility] Comment on above: Performed By: #### Rosa RAY HFP, CHM7, IPB ####[facility] (DEFAULT)[address] [facility] [place] [address] Osmolality [Osmolality] 295 mosm/kg Normal 278-305 [facility] Comment on above: Performed By: #### Rosa RAY HFP, CHM7, IPB ####[facility] (DEFAULT)[address] [facility] [place] [address] Potassium [Moles/Vol] 3.8 mmol/L Normal 3.5-5.0 [facility] Comment on above: Performed By: #### M CORY HFP, CHM7, IPB ####[facility] (DEFAULT)[address] [facility] [place] [address] Sodium [Moles/Vol] 138 mmol/L Normal 135-145 [facility] Comment on above: Performed By: #### M CORY HFP, CHM7, IPB ####[facility] (DEFAULT)[address] [facility] [place] [address] Urea nitrogen [Mass/Vol] 16 mg/dL Normal 7-25 [facility] Comment on above: Performed By: #### Rosa GO HFP, CHM7, IPB ####[facility] (DEFAULT)[address] [place] [id number] Urea nitrogen/Creatinine [Mass ratio] 17 mg/mg Normal [facility] Comment on above: Performed By: #### M GO, HFP, CHM7, IPB ####[facility] (DEFAULT)[address] [place] [address] CHEST TUBE PLACEMENTon 03-16 Radiology Study observation (narrative) [facility] CYTOLOGY, NON-GYNon 03-16-20 CYTOLOGIC DIAGNOSIS [facility] Comment on above: Result Comment: A. P LEURAL FLUID (CYTOLOGY AND CELL BLOCK): FINAL DIAGNOSIS: No Malignant Cells Are Identified Acute Inflammation at 1510 EDT Performed By: #### N ONGNRAQUELFNA #### [facility] (DEFAULT) [address] [place] [address] Case Report [facility] Comment on above: Result Comment: [facility] Cytology Report Case: [id number] Authorizing Provider: Soumya Hamilton MD, PhD Collected: 03/16/2025 04:30 PM Ordering Location: [facility] [place] Received: 03/16/2025 04:50 PM Pathologist: Clarissa Cotter MD Specimen: PLEURAL FLUID, Pleural Fluid Performed By: #### N ONKAYLENE #### [facility] (DEFAULT) [address] [place] [address] Clinical History R pleural effusion. [facility] Comment on above: Performed By: #### N ONGNRAQUELFNA #### [facility] (DEFAULT) [address] [address] Gross Description [facility] Comment on above: Result Comment: Pleu ral Fluid 26 ml cloudy red fld unfixed 2 cytospin slide DQ stain / 2 cytospin slide pap stain 1 CB Time specimen placed in formalin: 03/16/25 at 17:41 Time specimen removed from formalin: 03/16/25 at 20:39 Total Fixation Time: 2 hours 58 minutes Performed By: #### N MARIA TERESAFNA #### [facility] (DEFAULT) [address] [address] Professional Interpretation Performed at: Normal [facility] Comment on above: Result Comment: For Immediate Release to Patient's MyChart? Yes [facility] [address] [address] Performed By: #### N CLARENCE #### [facility] (DEFAULT) [address] [address] GENERAL PROCEDUREon 03-16-20 [facility] GLUCOSE POCon 03-16-2025 Glucose [Mass/Vol] 119 mg/dL 70 - 179 mg/dL [facility] Glucose [Mass/Vol] 126 mg/dL 70 - 179 mg/dL [facility] Glucose [Mass/Vol] 122 mg/dL 70 - 179 mg/dL [facility] Glucose [Mass/Vol] 180 mg/dL High 70 - 179 mg/dL [facility] Glucose [Mass/Vol] 146 mg/dL 70 - 179 mg/dL [facility] Glucose [Mass/Vol] 163 mg/dL 70 - 179 mg/dL [facility] Glucose [Mass/Vol] 160 mg/dL 70 - 179 mg/dL [facility] Glucose [Mass/Vol] 176 mg/dL 70 - 179 mg/dL [facility] Interpretation and review of laboratory results Abnormal [facility] Glucose [Mass/Vol] 135 mg/dL 70 - 179 mg/dL [facility] Glucose [Mass/Vol] 154 mg/dL 70 - 179 mg/dL [facility] HEPATIC FUNCTION PANELon Albumin [Mass/Vol] 2.7 g/dL Low 3.5 - 5.0 g/dL [facility] ALP [Catalytic activity/Vol] 68 U/L 32 - 126 [facility] ALT [Catalytic activity/Vol] 10 U/L 10 - 52 U/L [facility] AST [Catalytic activity/Vol] 45 U/L High 10 - 39 U/L [facility] Bilirubin [Mass/Vol] 0.5 mg/dL NINF - 1.5 mg/dL [facility] Bilirubin.direct [Mass/Vol] mg/dL NINF - 0.3 mg/dL [facility] Interpretation and review of laboratory results Abnormal [facility] Protein [Mass/Vol] 5.3 g/dL Low 6.4 - 8.3 g/dL [facility] Albumin [Mass/Vol] 2.7 g/dL Low 3.5-5.0 [facility] Comment on above: Performed By: #### P ROCAL #### [facility] (DEFAULT) [address] [address] ALP [Catalytic activity/Vol] 68 U/L Normal 32-126 [facility] Comment on above: Performed By: #### P ROCAL #### [facility] (DEFAULT) [address] [address] ALT [Catalytic activity/Vol] 10 U/L Normal 10-52 [facility] Comment on above: Performed By: #### P ROCAL #### [facility] (DEFAULT) [address] [place] [address] AST [Catalytic activity/Vol] 45 U/L High 10-39 [facility] Comment on above: Performed By: #### P ROCAL #### [facility] (DEFAULT) [address] [place] [address] Bilirubin [Mass/Vol] 0.5 mg/dL Normal <1.5 [facility] Comment on above: Performed By: #### P ROCAL #### [facility] (DEFAULT) [address] [address] Bilirubin Direct < Normal <0.3 [facility] Comment on above: Result Comment: Spec imen hemolyzed. Direct bilirubin results may be falsely decreased. Interpret within the clinical context. Performed By: #### P ROCAL #### [facility] (DEFAULT) [address] [place] [address] Protein [Mass/Vol] 5.3 g/dL Low 6.4-8.3 [facility] Comment on above: Performed By: #### P ROCAL #### [facility] (DEFAULT) [address] [place] [address] IONIZED CALCIUM, WHOLE BLOOD Ordered By: Kailee Kelly on 03-16-2025 Calcium.ionized (Bld) [Moles/Vol] 3.64 mg/dL Low 4.60 - 5.30 mg/dL [facility] Interpretation and review of laboratory results Abnormal [facility] IONIZED CALCIUM, WHOLE BLOOD on 03-16-2025 ICA 3.64 mg/dL Low 4.60-5.30 [facility] Comment on above: Performed By: #### F LLD, FLP #### [facility] (DEFAULT) [address] [address] LACTATE DEHYDROGENASE BODY F LUIDon 03-16-2025 LD, Fluid 762 U/L Normal [facility] Comment on above: Order Comment: This test has not been cleared or approved by the FDA. The laboratory is regulated under CLIA as qualified to perform high-complexity testing. This test is used for clinical purposes. It should not be regarded as investigational or for research. This test was developed and its performance characteristics determined by the Critical Care Laboratory at [facility]. Result Comment: A Pl eural fluid LDH to serum/plasma LDH ratio > 0.6 or a pleural fluid LDH concentration > two-thirds the upper limit of the serum/plasma LDH reference interval suggest an exudate. Performed By: #### F LLD, FLP #### [facility] (DEFAULT) [address] [place] [address] Laboratory - Specimen inform ationOrdered By: Sridevi Mendiola on 03-16-2025 Appearance (Body fld) [facility] MAGNESIUMon 03-16-2025 Magnesium [Mass/Vol] 2.0 mg/dL 1.6 - 2 .6 mg/dL [facility] Magnesium [Mass/Vol] 2.0 mg/dL Normal 1.6-2.6 [facility] Comment on above: Performed By: #### M BETTY RAY, STUART, IPB ####[facility] (DEFAULT)[address] [place] [address] No Panel Informationon 03-16 [facility] Type [facility] Interpretation and review of laboratory results Normal [facility] PH, PLEURAL FLUIDOrdered By: Jg Sherman on 03-16-2025 pH (Body fld) 7.46 [pH] [facility] PH, PLEURAL FLUIDon 03-16-20 25 pH, Pleural Fluid 7.46 Normal [facility] Comment on above: Order Comment: THIS TESTING IS NOT AVAILABLE AT [facility] Performed By: #### P TPTT #### [facility] (DEFAULT) [address] [place] [address] PHOSPHATE, INORGANICon 03-16 Phosphate [Mass/Vol] 3.7 mg/dL 2.2 - 4 .6 mg/dL [facility] Phosphorous 3.7 mg/dL Normal 2.2-4.6 [facility] Comment on above: Performed By: #### M BETTY RAY, STUART, IPB ####[facility] (DEFAULT)[address] [place] [address] PROTEIN, FLUIDon 03-16-2025 Fluid Protein 3.1 g/dL Normal [facility] Comment on above: Order Comment: This test has not been cleared or approved by the FDA. The laboratory is regulated under CLIA as qualified to perform high-complexity testing. This test is used for clinical purposes. It should not be regarded as investigational or for research. This test was developed and its performance characteristics determined by the Critical Care Laboratory at [facility]. Result Comment: Pleu ral fluid protein to serum/plasma protein ratio > 0.5 are consistent with exudates. Performed By: #### F LLD, FLP #### [facility] (DEFAULT) [address] [place] [address] PT,INR,PTTOrdered By: Isabella Bermudez on 03-16-2025 aPTT Coag (PPP) [Time] 32.6 s [facility] INR Coag (Bld) [Relative time] 1.3 {INR} High 0.9 - 1.1 [facility] Interpretation and review of laboratory results Abnormal [facility] PT Coag (PPP) [Time] 16.0 s High [facility] PT,INR,PTTon 03-16-2025 aPTT Coag (Bld) [Time] 32.6 s Normal 24.0-34.3 [facility] Comment on above: Result Comment: Resu lts inconsistent with previous results Performed By: #### F LLD, FLP #### [facility] (DEFAULT) [address] [place] [address] INR Coag (PPP) [Relative time] 1.3 {INR} High 0.9-1.1 [facility] Comment on above: Performed By: #### F LLD, FLP #### [facility] (DEFAULT) [address] [place] [address] PT Coag (PPP) [Time] 16.0 s High 11.9-14.2 [facility] Comment on above: Performed By: #### F LLD, FLP #### [facility] (DEFAULT) [address] [place] [address] aPTT Coag (PPP) [Time] 45.0 s High [facility] INR Coag (Bld) [Relative time] 1.6 {INR} High 0.9 - 1.1 [facility] Interpretation and review of laboratory results Abnormal [facility] PT Coag (PPP) [Time] 18.6 s High [facility] aPTT Coag (Bld) [Time] 45.0 s High 24.0-34.3 [facility] Comment on above: Performed By: #### I CRESP #### [facility] (DEFAULT) [address] [place] [address] INR Coag (PPP) [Relative time] 1.6 {INR} High 0.9-1.1 [facility] Comment on above: Performed By: #### I CRESP #### [facility] (DEFAULT) [address] [place] [address] PT Coag (PPP) [Time] 18.6 s High 11.9-14.2 [facility] Comment on above: Performed By: #### I CRESP #### [facility] (DEFAULT) [address] [place] [address] Portable XR Chest Viewson RADIOLOGY RADIOLOGY [facility] Radiology Study observation (narrative) [facility] Portable XR Chest ViewsOrder ed By: Srinath Almeida on 03-16-2025 [facility] Work Phone: XR ABDOMEN 1 VIEW PORTABLEon 03-16-2025 XR ABDOMEN 1 VIEW PORTABLE EXAM: XR ABDOMEN 1 VIEW PORTABLE, 03/16/2025 02:27 AM COMPARISON: XR ABDOMEN 1 VIEW PORTABLE March 15, 2025 CLINICAL INDICATIONS: Interval eval FINDINGS/IMPRESSION: Tubes: None. Bowel gas pattern: Persistent gaseous distention of both small and large bowel suggestive of ileus, similar since March 15, 2025. No visible free air. Lumbosacral spinal fusion hardware. Normal [facility] XR Abdomen Single viewon RADIOLOGY RADIOLOGY [facility] Radiology Study observation (narrative) [facility] XR Abdomen Single viewOrdere d By: Jose Johnson on 03-16-2025 [facility] Work Phone: XR CHEST 1 VIEW PORTABLEon 0 03-16-2025 XR CHEST 1 VIEW PORTABLE EXAM: XR CHEST 1 VIEW PORTABLE, 03/16/2025 02:27 AM COMPARISON: March 15, 2025 CLINICAL INDICATIONS: Interval eval for R pleural effusion RELEVANT CLINICAL HISTORY: FINDINGS: (Adequate technique) Implanted Devices: None Thorax: Moderate right pleural effusion, increased from prior. Similar patchy atelectasis at the left lung base. IMPRESSION: Increasing size of moderate pleural effusion. Normal [facility] AMMONIAon 03-15-2025 Ammonia (P) [Moles/Vol] 41 umol/L 6 - 47 umol/L [facility] Interpretation and review of laboratory results Normal [facility] Ammonia (P) [Moles/Vol] 41 umol/L Normal 6-47 O [facility] Comment on above: Performed By: #### X M #### [facility] (DEFAULT) [address] [place] [address] BASIC METABOLIC PANELon 02-16 Anion gap [Moles/Vol] 16 mmol/L 7 - 17 mmol/L [facility] Calcium [Mass/Vol] 7.9 mg/dL Low 8.6 - 10. 5 mg/dL [facility] Chloride [Moles/Vol] 99 mmol/L 98 - 10 8 mmol/L [facility] CO2 [Moles/Vol] 28 mmol/L 21 - 31 mmol/L [facility] Creatinine [Mass/Vol] 0.95 mg/dL 0.70 - 1.30 mg/dL [facility] eGFR, CKD-EPI, Male 83 - PINF [facility] Glucose [Mass/Vol] 172 mg/dL 70 - 179 mg/dL [facility] Interpretation and review of laboratory results Abnormal [facility] Osmolality Calc [Osmolality] 295 [facility] Potassium [Moles/Vol] 3.5 mmol/L 3.5 - 5.0 mmol/L [facility] Sodium [Moles/Vol] 139 mmol/L 135 - 145 mmol/L [facility] Urea nitrogen [Mass/Vol] 15 mg/dL 7 - 25 mg/dL [facility] Urea nitrogen/Creatinine [Mass ratio] 16 mg/mg [facility] Anion gap [Moles/Vol] 16 mmol/L Normal 7-17 [facility] Comment on above: Performed By: #### I CRESP #### [facility] (DEFAULT) [address] [place] [address] Calcium [Mass/Vol] 7.9 mg/dL Low 8.6-10.5 [facility] Comment on above: Performed By: #### I CRESP #### [facility] (DEFAULT) [address] [place] [address] Chloride [Moles/Vol] 99 mmol/L Normal 98-108 [facility] Comment on above: Performed By: #### I CRESP #### [facility] (DEFAULT) [address] [place] [address] CO2 [Moles/Vol] 28 mmol/L Normal 21-31 [facility] Comment on above: Performed By: #### I CRESP #### [facility] (DEFAULT) [address] [place] [address] Creatinine [Mass/Vol] 0.95 mg/dL Normal 0.70-1.30 [facility] Comment on above: Performed By: #### I CRESP #### [facility] (DEFAULT) [address] [place] [address] GFR/1.73 sq M.predicted among non-blacks MDRD (S/P/Bld) [Vol rate/Area] 83 mL/min/{1.73_m2} Normal >=60 [facility] Comment on above: Result Comment: Repo rted eGFR is based on the CKD-EPI 2020 equation using creatinine, age, and sex. Performed By: #### I CRESP #### [facility] (DEFAULT) [address] [place] [address] Glucose [Mass/Vol] 172 mg/dL Normal Nonfastin g : 70-179 mg/dL; Fastin-99 [facility] Comment on above: Performed By: #### I CRESP #### [facility] (DEFAULT) [address] [place] [address] Osmolality [Osmolality] 295 mosm/kg Normal 278-305 [facility] Comment on above: Performed By: #### I CRESP #### [facility] (DEFAULT) [address] [place] [address] Potassium [Moles/Vol] 3.5 mmol/L Normal 3.5-5.0 [facility] Comment on above: Performed By: #### I CRESP #### [facility] (DEFAULT) [address] [place] [address] Sodium [Moles/Vol] 139 mmol/L Normal 135-145 [facility] Comment on above: Performed By: #### I CRESP #### [facility] (DEFAULT) [address] [place] [address] Urea nitrogen [Mass/Vol] 15 mg/dL Normal 7-25 [facility] Comment on above: Performed By: #### I CRESP #### [facility] (DEFAULT) [address] [place] [address] Urea nitrogen/Creatinine [Mass ratio] 16 mg/mg Normal [facility] Comment on above: Performed By: #### I CRESP #### [facility] (DEFAULT) [address] [place] [address] CARDIAC RHYTHMon 03-15-2025 [facility] CBC,PLATELETSon 03-15-2025 Erythrocyte distribution width (RBC) [Ratio] 13.8 % 10.9 - 14.3 % [facility] Hematocrit (Bld) [Volume fraction] 37.2 % Low 39.6 - 48.8 % [facility] Hemoglobin (Bld) [Mass/Vol] 11.9 g/dL Low 13.4 - 16.8 g/dL [facility] Interpretation and review of laboratory results Abnormal [facility] MCH (RBC) [Entitic mass] 32.3 pg 26. 1 - 33.3 pg [facility] MCHC (RBC) [Mass/Vol] 32.0 g/dL 31.9 - 36.5 g/dL [facility] MCV (RBC) [Entitic vol] 101.1 fL High 79.0 - 94.5 fL [facility] Platelet mean volume (Bld) [Entitic vol] 10.2 fL 8.7 - 12.3 fL [facility] Platelets (Bld) [#/Vol] 228 10*3/uL 146 - 337 K/uL [facility] RBC (Bld) [#/Vol] 3.68 10*6/uL Low [facility] WBC (Bld) [#/Vol] 11.89 10*3/uL High 3.73 - 10.10 K/uL [facility] Hematocrit (Bld) [Volume fraction] 37.2 % Low 39.6-48.8 [facility] Comment on above: Performed By: #### I CRESP #### [facility] (DEFAULT) [address] [address] Hemoglobin (Bld) [Mass/Vol] 11.9 g/dL Low 13.4-16.8 [facility] Comment on above: Performed By: #### I CRESP #### [facility] (DEFAULT) [address] [address] MCV (RBC) [Entitic vol] 101.1 fL High 79.0-94.5 O [facility] Comment on above: Performed By: #### I CRESP #### [facility] (DEFAULT) [address] [place] [address] Mean Cell Hgb 32.3 pg Normal 26.1-33.3 [facility] Comment on above: Performed By: #### I CRESP #### [facility] (DEFAULT) [address] [place] [address] Mean Cell Hgb Conc 32.0 g/dL Normal 31.9-36.5 [facility] Comment on above: Performed By: #### I CRESP #### [facility] (DEFAULT) [address] [place] [address] Platelet mean volume (Bld) [Entitic vol] 10.2 fL Normal 8.7-12.3 [facility] Comment on above: Performed By: #### I CRESP #### [facility] (DEFAULT) [address] [place] [address] Platelets (Bld) [#/Vol] 228 10*3/uL Normal 146-337 [facility] Comment on above: Performed By: #### I CRESP #### [facility] (DEFAULT) [address] [place] [address] RBC (Bld) [#/Vol] 3.68 10*6/uL Low 4.38-5.83 [facility] Comment on above: Performed By: #### I CRESP #### [facility] (DEFAULT) [address] [place] [address] RBC Distribution 13.8 % Normal 10.9-14.3 [facility] Comment on above: Performed By: #### I CRESP #### [facility] (DEFAULT) [address] [place] [address] WBC (Bld) [#/Vol] 11.89 10*3/uL High 3.73-10.10 [facility] Comment on above: Performed By: #### I CRESP #### [facility] (DEFAULT) [address] [place] [address] IONIZED CALCIUM, WHOLE BLOOD Ordered By: Jarad Johnson on 03-15-2025 Calcium.ionized (Bld) [Moles/Vol] 3.71 mg/dL Low 4.60 - 5.30 mg/dL [facility] Interpretation and review of laboratory results Abnormal [facility] IONIZED CALCIUM, WHOLE BLOOD on 03-15-2025 ICA 3.71 mg/dL Low 4.60-5.30 [facility] Comment on above: Order Comment: Viral transport media (red screw top with red liquid media) or BAL - Collection must be done while wearing N-95 mask, eye protection, gown and gloves. \X09\Results should be used in conjunction with other clinical and laboratory findings. This result does not rule out co-infections with pathogens that are not screened for by the Respiratory Panel(RP). This RP assay was performed using a Film Array multiplex nucleic acid assay. Performed By: #### I CRESP #### [facility] (DEFAULT) [address] [place] [address] ICA 3.97 mg/dL Low 4.60-5.30 [facility] Comment on above: Performed By: #### X M #### [facility] (DEFAULT) [address] [place] [address] IONIZED CALCIUM, WHOLE BLOOD Ordered By: Virgie Dobbins on 03-15-2025 Calcium.ionized (Bld) [Moles/Vol] 3.97 mg/dL Low 4.60 - 5.30 mg/dL [facility] Interpretation and review of laboratory results Abnormal [facility] LACTATE DEHYDROGENASEon 02-16 Interpretation and review of laboratory results Abnormal [facility] LDH Lactate to pyruvate reaction [Catalytic activity/Vol] 327 U/L High 100 - 190 U/L [facility] LD Total 327 U/L High 100-190 [facility] Comment on above: Result Comment: Spec imen slightly hemolyzed. LDH results may be falsely elevated. Interpret within the clinical context. Performed By: #### P ROCAL #### [facility] (DEFAULT) [address] [place] [address] MAGNESIUMon 03-15-2025 Interpretation and review of laboratory results Normal [facility] Magnesium [Mass/Vol] 1.7 mg/dL 1.6 - 2 .6 mg/dL [facility] Magnesium [Mass/Vol] 1.7 mg/dL Normal 1.6-2.6 [facility] Comment on above: Performed By: #### I CRESP #### [facility] (DEFAULT) [address] [place] [address] MR Lumbar spine WO and W con trast Jesse 03-15-2025 RADIOLOGY RADIOLOGY [facility] MRI SPINE LUMBAR WITH AND WI THOUT CONTRASTon 03-15-2025 MRI SPINE LUMBAR WITH AND WITHOUT CONTRAST EXAM: MRI SPINE LUMBAR WITH AND WITHOUT CONTRAST, 03/14/2025 23:25 PM COMPARISON: August 25, 2024 MRI spine, x-ray January 11 2025, multiple additional exams were reviewed CLINICAL INDICATIONS: 75 years Male acute lower ext weakness RELEVANT CLINICAL HISTORY: TECHNIQUE: A series of sagittal and axial multisequence images of the lumbar spine were obtained both before and after intravenous administration of gadolinium-based contrast using standard protocol. Study was performed at 1.5 Gina. CONTRAST: Gadopiclenol SOLN 1-25 mL; Route of Administration: Intravenous; Dose: 8.2 mL. FINDINGS: There is mild to moderate motion artifact on several sequences. Again seen are posterior fusion hardware from L3 to S1 is again noted, with associated laminectomy changes from L3 to L5. Hardware would be better assessed on radiograph/CT. There is a surgical artifact related to the surgical hardware. History report fracture of the right-sided dhruv just above the L5 set screw is not well evaluated on MRI and is better assessed on CT or radiographs. Alignment is unchanged with of L2 over L3 and L4 over L5, and grade 1 anterolisthesis of L3 over L4 and L5 over S1. Leftward curvature of the lumbar spine (scoliosis). No abnormal intrathecal enhancement No acute compression fracture deformity. No focal suspicious osseous lesions in the lumbar spine. Multilevel degenerative disc changes desiccation and variable height loss most pronounced at the L2-L3 level with is severe height loss. Edema in the paraspinal soft tissues is noted. Again seen is focal T2 hyperintense fluid in the laminectomy bed, likely related to chronic postoperative collection. No definite signal abnormality within the conus. The cauda equina appears unremarkable. Atrophy of the bilateral iliopsoas muscles, with interval progression compared to August 25, 2024. Degenerative changes of the sacroiliac joints. SQRAU-OR-UFOIW ANALYSIS: T12-L1: Circumferential mild disc bulge, moderate facet arthropathy, and ligamentum flavum infolding. No significant significant spinal canal or foraminal narrowing. L1-L2: Minimal retrolisthesis, left circumferential disc bulge, left lateral recess narrowing. Moderate facet arthropathy and ligamentum flavum changes. No significant central canal stenosis there is moderate right and moderate to severe left neural foraminal narrowing. L2-L3: Disc desiccation with severe height loss. There is severe disc bulge comment dorsal disc osteophyte and advanced facet arthrosis and ligamentum flavum hypertrophy. Fusion hardware at this level. No significant central canal stenosis. Bilateral moderate lateral recess narrowing. Severe bilateral foraminal narrowing. L3-L4: Disc osteophyte complex. Canal decompressed by prior laminectomy. Hardware present. Moderate bilateral foraminal narrowing. L4-L5: Moderate disc bulge with grade 1 anterolisthesis and moderate disc bulge and facet hypertrophic changes. Canal decompressed by laminectomy. Facet arthropathy. Moderate left and mild right foraminal narrowing. L5-S1: Circumferential disc bulge. Canal decompressed by laminectomy. Hardware present. Facet arthropathy. Severe left and moderate right foraminal narrowing. Overall degenerative and postoperative findings are stable compared to August 25, 2024. IMPRESSION: Again seen are postoperative changes of posterior fusion hardware from L3-S1 and laminectomy changes from L3 to L5. Degenerative changes appear unchanged from August 2024 examination. No significant central canal stenosis. Severe neural foraminal narrowing bilaterally at L2-L3 and on the left at L5-S1. I personally viewed and interpreted these images and I have reviewed and approved this report. Normal [facility] No Panel Informationon 03-15 Interpretation and review of laboratory results Normal [facility] PHOSPHATE, INORGANICon 03-15 Phosphate [Mass/Vol] 2.6 mg/dL 2.2 - 4 .6 mg/dL [facility] Phosphorous 2.6 mg/dL Normal 2.2-4.6 [facility] Comment on above: Order Comment: If ph osphate level is less than or equal to 2.0 mg/dL, recheck phosphate 6 hours after replacement. Performed By: #### P ROCAL #### [facility] (DEFAULT) [address] [address] Interpretation and review of laboratory results Normal [facility] Phosphate [Mass/Vol] 2.3 mg/dL 2.2 - 4 .6 mg/dL [facility] Phosphorous 2.3 mg/dL Normal 2.2-4.6 [facility] Comment on above: Performed By: #### X M #### [facility] (DEFAULT) [address] [address] POTASSIUMon 03-15-2025 Potassium [Moles/Vol] 3.6 mmol/L 3.5 - 5.0 mmol/L [facility] Potassium [Moles/Vol] 3.6 mmol/L Normal 3.5-5.0 [facility] Comment on above: Order Comment: If po tassium level is less than or equal to 3.0 mmol/L, recheck potassium 4 hours after replacement. Performed By: #### P ROCAL #### [facility] (DEFAULT) [address] [address] PROCALCITONINon 03-15-2025 Interpretation and review of laboratory results Normal [facility] Procalcitonin [Mass/Vol] 0.45 ng/mL LARRY F - 0.50 ng/mL [facility] Procalcitonin 0.45 ng/mL Normal <0.50 [facility] Comment on above: Result Comment: Proc alcitonin is an FDA-approved assay to help manage antibiotic treatment in patients with sepsis/septic shock and lower respiratory tract infections. Specifically, trending procalcitonin in these situations can be used to reduce the duration of antibiotics. Please refer to the Procalcitonin Guide on the Antimicrobial Stewardship Webpage for more guidance on how to use and trend procalcitonin in various clinical settings. [email or web address]&action=[email or web address] Two common cutoffs associated with bacterial infections are as follows. Respiratory tract infections: >0.25 ng/mL Sepsis/septic shock: >0.5 ng/mL Procalcitonin should not be used alone as a diagnostic tool, however. All procalcitonin results should be interpreted in association with the patients clinical condition and all laboratory findings. Performed By: #### P ROCAL #### [facility] (DEFAULT) [address] [place] [address] Portable XR Chest Viewson RADIOLOGY RADIOLOGY [facility] Radiology Study observation (narrative) [facility] Portable XR Chest ViewsOrder ed By: Surekha Marin on 03-15-2025 [facility] Work Phone: SCREEN: MRSA/MSSAOrdered By: Tyler Ellis on 03-15-2025 Interpretation and review of laboratory results Normal [facility] Methicillin Resistant S. Aureus By Pcr Negative Negative [facility] Staphylococcus Aureus By Pcr Negative Negative [facility] ABDOMEN 1 VIEW PORTABLEon 03-15-2025 XR ABDOMEN 1 VIEW PORTABLE EXAM: XR ABDOMEN 1 VIEW PORTABLE, 03/15/2025 11:45 AM COMPARISON: Comparison study from 03/14/2025 CLINICAL INDICATIONS: Interval eval FINDINGS: Tubes: None. Bowel gas pattern: There is significant gaseous distention and dilation of multiple loops of small and large suggestive of ileus. The transverse colon is dilated up to maximum of 9.1 cm, previously 6.8 cm. Small bowel loops are dilated up to maximum of 4.4 cm, previously 2.9 cm Abnormal calcifications/Radiopacit ies: 0.9 cm round calcification in the mid abdomen to the right of the lumbar spine at the level of L3-4 which is indeterminate. Punctate sclerotic calcifications are seen with few tiny phleboliths in the pelvis. Bones: Internal fixation hardware in the lower lumbar spine. Degenerative changes of lumbar spine. Other findings: None. IMPRESSION: 1. Progressive gaseous distention and dilation of small and large bowel, suggestive of ileus. 2. No gross free air. I personally viewed and interpreted these images and I have reviewed and approved this report. Normal [facility] XR Abdomen Single viewon RADIOLOGY RADIOLOGY [facility] Radiology Study observation (narrative) [facility] Abdomen Single viewOrdere d By: Ryan Moffett on 03-15-2025 [facility] Work Phone: XR CHEST 1 VIEW PORTABLEon 0 03-15-2025 XR CHEST 1 VIEW PORTABLE EXAM: XR CHEST 1 VIEW PORTABLE, 03/15/2025 03:09 AM COMPARISON: XR CHEST 1 VIEW PORTABLE March 14, 2025 CLINICAL INDICATIONS: pulmonary edema f/u RELEVANT CLINICAL HISTORY: FINDINGS: (Adequate technique) Mildly decreased size of right pleural effusion. No other change. IMPRESSION: No pulmonary edema. Mildly decreased size of right pleural effusion. Normal [facility] BASIC METABOLIC PANELon 02-16 Anion gap [Moles/Vol] 14 mmol/L 7 - 17 mmol/L [facility] Calcium [Mass/Vol] 7.5 mg/dL Low 8.6 - 10. 5 mg/dL [facility] Chloride [Moles/Vol] 101 mmol/L 98 - 10 8 mmol/L [facility] CO2 [Moles/Vol] 27 mmol/L 21 - 31 mmol/L [facility] Creatinine [Mass/Vol] 0.96 mg/dL 0.70 - 1.30 mg/dL [facility] eGFR, CKD-EPI, Male 82 - PINF [facility] Glucose [Mass/Vol] 144 mg/dL 70 - 179 mg/dL [facility] Osmolality Calc [Osmolality] 292 [facility] Potassium [Moles/Vol] 3.8 mmol/L 3.5 - 5.0 mmol/L [facility] Sodium [Moles/Vol] 138 mmol/L 135 - 145 mmol/L [facility] Urea nitrogen [Mass/Vol] 13 mg/dL 7 - 25 mg/dL [facility] Urea nitrogen/Creatinine [Mass ratio] 14 mg/mg [facility] C REACTIVE PROTEINOrdered By : Zain Chandler on 03-14-2025 CRP High sensitivity method [Mass/Vol] 265.68 mg/L High NINF - 10.00 mg/L [facility] Interpretation and review of laboratory results Abnormal [facility] CT CHEST WITH CONTRASTon CT CHEST WITH CONTRAST EXAM: CT CHEST WI TH CONTRAST, 03/13/2025 22:35 PM COMPARISON: CT Pulmonary Angiogram=C July 17, 2012, XR CHEST 1 VIEW PORTABLE March 13, 2025 CLINICAL INDICATIONS: post-op evaluation TECHNIQUE: CT images of the chest were obtained following administration of intravenous contrast. CONTRAST: iohexol (OMNIPAQUE) 350 MG/ML injection 1-171 mL; Route of Administration: Intravenous; Dose: 50 mL. FINDINGS: Lungs and Pleura: The right lower lobe is completely atelectatic with partial atelectasis of the right upper and middle lobes, secondary to mucous plugging and postobstructive atelectasis as well as compressive atelectasis from the small adjacent effusion. Few small foci of gas in the medial right pleural effusion are presumably postoperative given the retropleural approach for the discectomy. Small anterior pneumothorax. The small right thoracostomy tube enters the posterior lateral right sixth rib ostomy. The tip appears extrapleural, terminating in the intra-rib space with subpleural fat between the tip of the chest tube in the pleural effusion, series 2 image 31. Partial atelectasis in the lingula and left lower lobe. Tracheobronchial tree: Exam is partially performed during expiration. There is excessive collapse of the tracheobronchial tree with narrowing of the distal trachea to 4 mm in AP diameter. For comparison, during inspiration the upper trachea measures 12.7 mm in AP diameter. There is also excessive narrowing of the proximal bronchi. Secretions in the distal trachea and areas of mucous plugging in the right lower lobe bronchi. Mediastinum/Alexus: No mediastinal or hilar lymphadenopathy. Axilla and Supraclavicular Region: No axillary or supraclavicular adenopathy. Cardiovascular: The cardiac chambers and pericardium are within normal limits. Multivessel coronary artery calcifications. Few scattered aortic calcifications. Bovine arch, an anatomic variant. Upper Abdomen: Hepatic steatosis. The upper abdominal contents are otherwise unremarkable. Bones and Soft Tissue: No suspicious osseous lesion. Postsurgical changes to the lateral right aspect of the T7 and T8 vertebral bodies secondary to discectomy and partial corpectomy. Small fluid and gas collection in the space with additional foci of gas the thecal canal, presumably postoperative given surgical date of March 11, 2025. IMPRESSION: 1. Small right hydropneumothorax. Complete atelectasis of the right lower lobe and significant partial atelectasis of the right upper and middle lobes do both to compressive atelectasis from the effusion as well as obstructive mucous plugging and postobstructive atelectasis. A right thoracostomy tube is outside the thoracic cavity terminating in the sixth rib osteotomy with a clearly layer of subpleural fat between the tube tip in the pleural effusion. The pneumothorax is loculated anteriorly and likely will not be seen on single view AP radiograph because of its location/positioning. 2. Segmental atelectatic changes in the left lung. 3. Small fluid collection along the right T7-T8 vertebral bodies with internal foci of gas. Small foci of gas are also seen in the adjacent right pleural effusion and thecal canal. Findings are all presumably postoperative given recent surgery on March 11, 2025. I personally viewed and interpreted these images and I have reviewed and approved this report. Normal [facility] CT Chest W contrast Jesse RADIOLOGY RADIOLOGY [facility] GLUCOSE POCon 03-14-2025 Glucose [Mass/Vol] 113 mg/dL 70 - 179 mg/dL [facility] POC Sample Type CAPBL [facility] Glucose [Mass/Vol] 147 mg/dL 70 - 179 mg/dL [facility] POC Sample Type [facility] Glucose [Mass/Vol] 151 mg/dL 70 - 179 mg/dL [facility] [Mass/Vol] 123 mg/dL 70 - 179 mg/dL [facility] POC Sample Type [facility] MAGNESIUMon 03-14-2025 Magnesium [Mass/Vol] 1.5 mg/dL Low 1.6 - 2 .6 mg/dL [facility] MR Brain WO contraston 03-14 RADIOLOGY RADIOLOGY [facility] Radiology Study observation (narrative) [facility] MR Cervical spine WO and W c ontrast Jesse 03-14-2025 RADIOLOGY RADIOLOGY [facility] Radiology Study observation (narrative) [facility] MR Lumbar spine WO and W con trast Jesse 03-14-2025 Radiology Study observation (narrative) [facility] MRI BRAIN WITHOUT CONTRASTon 03-14-2025 MRI BRAIN WITHOUT CONTRAST EXAM: MRI BRAIN WITHOUT CONTRAST, 03/14/2025 23:25 PM COMPARISON: MRI Brain W/WO Contrast=H October 28, 2005, MRI Brain W/WO Contrast=H January 17, 2005, MRI Brain W/WO Contrast=H October 10, 2004, CT Head W/O Contrast=H October 29, 2005 CLINICAL INDICATIONS: 75 years Male acute lower ext weakness RELEVANT CLINICAL HISTORY: TECHNIQUE: A series of multisequence, multiplanar images of the brain are obtained without intravenous contrast. Study was performed at 1.5 Gina. FINDINGS: There is mild to moderate motion artifact on several sequences. Evidence of prior right-sided craniectomy. There is encephalomalacia and gliosis in the right frontal and temporal lobes as well as involving the right insula with ex vacuo dilatation of the right lateral ventricle. Remote right cerebellar infarcts. Patchy FLAIR hyperintensities in the periventricular white matter, nonspecific but could relate to chronic small vessel ischemic disease. No acute intracranial hemorrhage. No extracerebral collection. Sellar and parasellar structures are unremarkable. Again noted is a ex vacuo dilatation of the right lateral ventricle. Bilateral cataract surgery implants. Mucosal thickening with air-fluid level in the right maxillary sinus. IMPRESSION: No evidence of acute infarct or mass effect. Remote insult in the right cerebral hemisphere with adjacent craniectomy. Remote right cerebellar infarcts. Normal [facility] MRI SPINE CERVICAL WITH AND WITHOUT CONTRASTon 03-14-2025 MRI SPINE CERVICAL WITH AND WITHOUT CONTRAST EXAM: MRI SPINE CERVICAL WITH AND WITHOUT CONTRAST, 03/14/2025 23:26 PM COMPARISON: MRI SPINE CERVICAL WITHOUT CONTRAST February 11, 2025 CLINICAL INDICATIONS: 75 years Male acute R> left leg weakness RELEVANT CLINICAL HISTORY: TECHNIQUE: A series of sagittal and axial multisequence images of the cervical spine were obtained both before and after intravenous administration of gadolinium-based contrast using standard protocol. Study was performed at 1.5 Gina. CONTRAST: Gadopiclenol SOLN 1-25 mL; Route of Administration: Intravenous; Dose: 8.2 mL. FINDINGS: There is moderate to severe motion artifact on several sequences degrading assessment. There is reversal of cervical lordosis and stepwise grade 1 anterolisthesis of C3 on C6. No definite focal suspicious osseous lesions cervical spine. No evidence of compression fracture deformity. Prevertebral and Cervical soft tissues are grossly unremarkable. Multilevel degenerative disc changes with desiccation and variable height loss. No definite signal abnormality within the cervical spinal cord. No definite abnormal intrathecal enhancement. Craniocervical junction is unremarkable. Degenerative changes of overall similar to prior examination although suboptimally evaluated due to significant motion artifact. By levels: C1-C2: Atlanto-axial relationship is within normal limits. C2-C3: No disc herniation, cervical stenosis, or foraminal stenosis. Bilateral facet arthrosis. C3-C4: Dorsal disc osteophyte complex without significant central canal stenosis. Uncovertebral spurring and facet arthrosis contributes to mild right and severe left neural foraminal narrowing. C4-C5: Dorsal disc osteophyte complex without significant central canal stenosis. Uncovertebral spurring contributes to severe right and moderate left neural foraminal narrowing. C5-C6: Posterior disc aspect complex and posterior ligamentous thickening contributes to mild central canal stenosis. Uncovertebral spurring and facet arthrosis contributes to moderate right and mild left neural foraminal narrowing. C6-C7: Dorsal disc osteophyte complex and posterior ligament thickening contributes to mild central canal stenosis. Uncovertebral spurring with estimated moderate to severe right and moderate left neural foraminal narrowing. C7-T1: No disc herniation, cervical stenosis, or foraminal stenosis. IMPRESSION: Significant motion degraded examination. Multilevel degenerative changes in the cervical spine appear overall similar to prior MRI accounting for motion artifact. Mild central canal stenosis C5-C6 and C6-7. No definite signal abnormality within the cervical spinal cord. Normal [facility] NT-PRO B-TYPE NATRIURETIC PE PTIDEon 03-14-2025 Interpretation and review of laboratory results Abnormal [facility] Natriuretic peptide.B prohormone N-Terminal IA [Mass/Vol] 858 pg/mL High NINF - 540 pg/mL [facility] No Panel Informationon 03-14 Interpretation and review of laboratory results Abnormal [facility] PHOSPHATE, INORGANICon 03-14 Interpretation and review of laboratory results Normal [facility] Phosphate [Mass/Vol] 2.4 mg/dL 2.2 - 4 .6 mg/dL [facility] Portable XR Chest Viewson RADIOLOGY RADIOLOGY [facility] Radiology Study observation (narrative) [facility] SCREEN: MRSA/MSSAon 03-14-20 25 Methicillin Resistant S. Aureus By Pcr Negative Normal Negative [facility] Comment on above: Order Comment: Colle ct with an ESWAB - Anterior Nares for MRSA + MSSAThis test was performed using a real time PCR assay. Results should be interpreted in conjunction with other clinical and laboratory findings. A positive result does not necessarily indicate the presence of viable organism. This test should not be used as a test of cure. For E-swab specimens, this test was developed and its performance characteristics determined by the Clinical Microbiology Laboratory at [facility]. It has not been cleared or approved by the FDA.The laboratory is regulated under CLIA as qualified to perform high-complexity testing. This test is used for clinical purposes. It should not be regarded as investigational or for research. Performed By: #### P TPTT #### [facility] (DEFAULT) [address] [address] Staphylococcus Aureus By Pcr Negative Normal Negative [facility] Comment on above: Order Comment: Colle ct with an ESWAB - Anterior Nares for MRSA + MSSAThis test was performed using a real time PCR assay. Results should be interpreted in conjunction with other clinical and laboratory findings. A positive result does not necessarily indicate the presence of viable organism. This test should not be used as a test of cure. For E-swab specimens, this test was developed and its performance characteristics determined by the Clinical Microbiology Laboratory at [facility]. It has not been cleared or approved by the FDA.The laboratory is regulated under CLIA as qualified to perform high-complexity testing. This test is used for clinical purposes. It should not be regarded as investigational or for research. Performed By: #### P TPTT #### [facility] (DEFAULT) [address] [address] SEDIMENTATION RATE, AUTOMATE Don 03-14-2025 ESR (Bld) [Velocity] 75 mm/h High [facility] Interpretation and review of laboratory results Abnormal [facility] XR ABDOMEN 1 VIEW PORTABLEon 03-14-2025 XR ABDOMEN 1 VIEW PORTABLE EXAM: XR ABDOMEN 1 VIEW PORTABLE, 03/14/2025 15:41 PM COMPARISON: No prior studies available for comparison. CLINICAL INDICATIONS: ileus/obstruction evaluation FINDINGS: Tubes: None. There is significant gaseous distention and dilatation of multiple small and large bowel loops in the abdomen and pelvis. Pattern is suggestive of ileus. No obvious evidence of free air. Moderate right colonic fecal burden. Spinal fixation hardware at the lower lumbar spine. IMPRESSION: Diffuse small bowel and colonic dilatation, suggestive of ileus. Normal [facility] XR Abdomen Single viewon RADIOLOGY RADIOLOGY [facility] Radiology Study observation (narrative) [facility] XR Abdomen Single viewOrdere d By: Lilian Kaur on 03-14-2025 [facility] Work Phone: XR CHEST 1 VIEW PORTABLEon 0 03-14-2025 XR CHEST 1 VIEW PORTABLE EXAM: XR CHEST 1 VIEW PORTABLE, 03/14/2025 15:41 PM COMPARISON: March 13, 2025 CLINICAL INDICATIONS: post chest tube removal RELEVANT CLINICAL HISTORY: FINDINGS: (Adequate technique) Patient is rotated to the right. Chest tube is removed. Enlarging right effusion. Stable bilateral consolidations. Stable cardiomediastinal silhouette. No interval bone findings. IMPRESSION: Increased right effusion. Known anterior pneumothorax identified on same day chest CT is not seen on radiograph. Stable bilateral consolidative opacities correlating with known predominantly atelectatic changes throughout the lungs. Normal [facility] BASIC METABOLIC PANELon 02-16 Anion gap [Moles/Vol] 14 mmol/L Normal 7-17 [facility] Comment on above: Performed By: #### P ROCAL #### [facility] (DEFAULT) [address] [place] [address] Calcium [Mass/Vol] 7.5 mg/dL Low 8.6-10.5 [facility] Comment on above: Performed By: #### P ROCAL #### [facility] (DEFAULT) [address] [place] [address] Chloride [Moles/Vol] 101 mmol/L Normal 98-108 [facility] Comment on above: Performed By: #### P ROCAL #### [facility] (DEFAULT) [address] [place] [address] CO2 [Moles/Vol] 27 mmol/L Normal 21-31 [facility] Comment on above: Performed By: #### P ROCAL #### [facility] (DEFAULT) [address] [place] [address] Creatinine [Mass/Vol] 0.96 mg/dL Normal 0.70-1.30 [facility] Comment on above: Performed By: #### P ROCAL #### [facility] (DEFAULT) [address] [place] [address] GFR/1.73 sq M.predicted among non-blacks MDRD (S/P/Bld) [Vol rate/Area] 82 mL/min/{1.73_m2} Normal >=60 [facility] Comment on above: Result Comment: Repo rted eGFR is based on the CKD-EPI 2020 equation using creatinine, age, and sex. Performed By: #### P ROCAL #### [facility] (DEFAULT) [address] [place] [address] Glucose [Mass/Vol] 144 mg/dL Normal Nonfastin g : 70-179 mg/dL; Fastin-99 [facility] Comment on above: Performed By: #### P ROCAL #### [facility] (DEFAULT) [address] [place] [address] Osmolality [Osmolality] 292 mosm/kg Normal 278-305 [facility] Comment on above: Performed By: #### P ROCAL #### [facility] (DEFAULT) [address] [place] [address] Potassium [Moles/Vol] 3.8 mmol/L Normal 3.5-5.0 [facility] Comment on above: Performed By: #### P ROCAL #### [facility] (DEFAULT) [address] [place] [address] Sodium [Moles/Vol] 138 mmol/L Normal 135-145 [facility] Comment on above: Performed By: #### P ROCAL #### [facility] (DEFAULT) [address] [place] [address] Urea nitrogen [Mass/Vol] 13 mg/dL Normal 7-25 [facility] Comment on above: Performed By: #### P ROCAL #### [facility] (DEFAULT) [address] [place] [address] Urea nitrogen/Creatinine [Mass ratio] 14 mg/mg Normal [facility] Comment on above: Performed By: #### P ROCAL #### [facility] (DEFAULT) [address] [place] [address] Anion gap [Moles/Vol] 14 mmol/L 7 - 17 mmol/L [facility] Calcium [Mass/Vol] 7.6 mg/dL Low 8.6 - 10. 5 mg/dL [facility] Chloride [Moles/Vol] 103 mmol/L 98 - 10 8 mmol/L [facility] CO2 [Moles/Vol] 24 mmol/L 21 - 31 mmol/L [facility] Creatinine [Mass/Vol] 0.85 mg/dL 0.70 - 1.30 mg/dL [facility] eGFR, CKD-EPI, Male - PINF [facility] Glucose [Mass/Vol] 185 mg/dL High 70 - 179 mg/dL [facility] Osmolality Calc [Osmolality] 291 [facility] Potassium [Moles/Vol] 3.9 mmol/L 3.5 - 5.0 mmol/L [facility] Sodium [Moles/Vol] 137 mmol/L 135 - 145 mmol/L [facility] Urea nitrogen [Mass/Vol] 10 mg/dL 7 - 25 mg/dL [facility] Urea nitrogen/Creatinine [Mass ratio] 12 mg/mg [facility] Anion gap [Moles/Vol] 14 mmol/L Normal 7-17 [facility] Comment on above: Performed By: #### F LLD, FLP #### [facility] (DEFAULT) [address] [place] [address] Calcium [Mass/Vol] 7.6 mg/dL Low 8.6-10.5 [facility] Comment on above: Performed By: #### F LLD, FLP #### [facility] (DEFAULT) [address] [place] [address] 86070 Chloride [Moles/Vol] 103 mmol/L Normal 98-108 [facility] Comment on above: Performed By: #### F LLD, FLP #### [facility] (DEFAULT) [address] [place] [address] 90137 CO2 [Moles/Vol] 24 mmol/L Normal 21-31 [facility] Comment on above: Performed By: #### F LLD, FLP #### [facility] (DEFAULT) [address] [place] [address] 12474 Creatinine [Mass/Vol] 0.85 mg/dL Normal 0.70-1.30 [facility] Comment on above: Performed By: #### F LLD, FLP #### [facility] (DEFAULT) [address] [place] [address] 58961 eGFR, CKD-EPI, Male > Normal >=60 [facility] Comment on above: Result Comment: Repo rted eGFR is based on the CKD-EPI 2020 equation using creatinine, age, and sex. Performed By: #### F LLD, FLP #### [facility] (DEFAULT) [address] [place] [address] 95509 Glucose [Mass/Vol] 185 mg/dL High Nonfastin g : 70-179 mg/dL; Fastin-99 [facility] Comment on above: Performed By: #### F LLD, FLP #### [facility] (DEFAULT) [address] [place] [address] 15935 Osmolality [Osmolality] 291 mosm/kg Normal 278-305 [facility] Comment on above: Performed By: #### F LLD, FLP #### [facility] (DEFAULT) [address] [place] [address] 85039 Potassium [Moles/Vol] 3.9 mmol/L Normal 3.5-5.0 [facility] Comment on above: Performed By: #### F LLD, FLP #### [facility] (DEFAULT) [address] [place] [address] Sodium [Moles/Vol] 137 mmol/L Normal 135-145 [facility] Comment on above: Performed By: #### F LLD, FLP #### [facility] (DEFAULT) [address] [place] [address] Urea nitrogen [Mass/Vol] 10 mg/dL Normal 7-25 [facility] Comment on above: Performed By: #### F LLD, FLP #### [facility] (DEFAULT) [address] [place] [address] 49696 Urea nitrogen/Creatinine [Mass ratio] 12 mg/mg Normal [facility] Comment on above: Performed By: #### F LLD, FLP #### [facility] (DEFAULT) [address] [place] [address] 14434 C REACTIVE PROTEINon 025 CRP [Mass/Vol] 265.68 mg/L High <10.00 [facility] Comment on above: Performed By: #### P ROCAL #### [facility] (DEFAULT) [address] [place] [address] 70641 CBC,PLATELETSon 03-13-2025 Erythrocyte distribution width (RBC) [Ratio] 14.3 % 10.9 - 14.3 % [facility] Hematocrit (Bld) [Volume fraction] 36.6 % Low 39.6 - 48.8 % [facility] Hemoglobin (Bld) [Mass/Vol] 11.7 g/dL Low 13.4 - 16.8 g/dL [facility] Interpretation and review of laboratory results Abnormal [facility] MCH (RBC) [Entitic mass] 32.7 pg 26. 1 - 33.3 pg [facility] MCHC (RBC) [Mass/Vol] 32.0 g/dL 31.9 - 36.5 g/dL [facility] MCV (RBC) [Entitic vol] 102.2 fL High 79.0 - 94.5 fL [facility] Platelet mean volume (Bld) [Entitic vol] 10.4 fL 8.7 - 12.3 fL [facility] Platelets (Bld) [#/Vol] 215 10*3/uL 146 - 337 K/uL [facility] RBC (Bld) [#/Vol] 3.58 10*6/uL Low [facility] WBC (Bld) [#/Vol] 14.25 10*3/uL High 3.73 - 10.10 K/uL [facility] Hematocrit (Bld) [Volume fraction] 36.6 % Low 39.6-48.8 [facility] Comment on above: Performed By: #### F LLD, FLP #### [facility] (DEFAULT) [address] [place] [address] 82318 Hemoglobin (Bld) [Mass/Vol] 11.7 g/dL Low 13.4-16.8 [facility] Comment on above: Performed By: #### F LLD, FLP #### [facility] (DEFAULT) [address] [place] [address] 05121 MCV (RBC) [Entitic vol] 102.2 fL High 79.0-94.5 O [facility] Comment on above: Performed By: #### F LLD, FLP #### [facility] (DEFAULT) [address] [place] [address] 58699 Mean Cell Hgb 32.7 pg Normal 26.1-33.3 [facility] Comment on above: Performed By: #### F LLD, FLP #### [facility] (DEFAULT) [address] [place] [address] 00867 Mean Cell Hgb Conc 32.0 g/dL Normal 31.9-36.5 [facility] Comment on above: Performed By: #### F LLD, FLP #### [facility] (DEFAULT) [address] [place] [address] 99403 Platelet mean volume (Bld) [Entitic vol] 10.4 fL Normal 8.7-12.3 [facility] Comment on above: Performed By: #### F LLD, FLP #### [facility] (DEFAULT) [address] [place] [address] 03828 Platelets (Bld) [#/Vol] 215 10*3/uL Normal 146-337 [facility] Comment on above: Performed By: #### F LLD, FLP #### [facility] (DEFAULT) [address] [place] [address] 56140 RBC (Bld) [#/Vol] 3.58 10*6/uL Low 4.38-5.83 [facility] Comment on above: Performed By: #### F LLD, FLP #### [facility] (DEFAULT) [address] [place] [address] 56857 RBC Distribution 14.3 % Normal 10.9-14.3 [facility] Comment on above: Performed By: #### F LLD, FLP #### [facility] (DEFAULT) [address] [place] [address] 17950 WBC (Bld) [#/Vol] 14.25 10*3/uL High 3.73-10.10 [facility] Comment on above: Performed By: #### F LLD, FLP #### [facility] (DEFAULT) [address] [place] [address] 97712 Erythrocyte distribution width (RBC) [Ratio] 14.3 % 10.9 - 14.3 % [facility] Hematocrit (Bld) [Volume fraction] 37.6 % Low 39.6 - 48.8 % [facility] Hemoglobin (Bld) [Mass/Vol] 12.4 g/dL Low 13.4 - 16.8 g/dL [facility] Interpretation and review of laboratory results Abnormal [facility] MCH (RBC) [Entitic mass] 32.8 pg 26. 1 - 33.3 pg [facility] MCHC (RBC) [Mass/Vol] 33.0 g/dL 31.9 - 36.5 g/dL [facility] MCV (RBC) [Entitic vol] 99.5 fL High 79.0 - 94.5 fL [facility] Platelet mean volume (Bld) [Entitic vol] 10.2 fL 8.7 - 12.3 fL [facility] Platelets (Bld) [#/Vol] 219 10*3/uL 146 - 337 K/uL [facility] RBC (Bld) [#/Vol] 3.78 10*6/uL Low [facility] WBC (Bld) [#/Vol] 16.35 10*3/uL High 3.73 - 10.10 K/uL [facility] Hematocrit (Bld) [Volume fraction] 37.6 % Low 39.6-48.8 [facility] Comment on above: Performed By: #### I CRESP #### [facility] (DEFAULT) [address] [place] [address] 73268 Hemoglobin (Bld) [Mass/Vol] 12.4 g/dL Low 13.4-16.8 [facility] Comment on above: Performed By: #### I CRESP #### [facility] (DEFAULT) [address] [address] MCV (RBC) [Entitic vol] 99.5 fL High 79.0-94.5 O [facility] Comment on above: Performed By: #### I CRESP #### [facility] (DEFAULT) [address] [place] [address] 79034 Mean Cell Hgb 32.8 pg Normal 26.1-33.3 [facility] Comment on above: Performed By: #### I CRESP #### [facility] (DEFAULT) [address] [address] Mean Cell Hgb Conc 33.0 g/dL Normal 31.9-36.5 [facility] Comment on above: Performed By: #### I CRESP #### [facility] (DEFAULT) [address] [place] [address] 42342 Platelet mean volume (Bld) [Entitic vol] 10.2 fL Normal 8.7-12.3 [facility] Comment on above: Performed By: #### I CRESP #### [facility] (DEFAULT) [address] [place] [address] 72962 Platelets (Bld) [#/Vol] 219 10*3/uL Normal 146-337 [facility] Comment on above: Performed By: #### I CRESP #### [facility] (DEFAULT) [address] [place] [address] 09091 RBC (Bld) [#/Vol] 3.78 10*6/uL Low 4.38-5.83 [facility] Comment on above: Performed By: #### I CRESP #### [facility] (DEFAULT) [address] [place] [address] 89720 RBC Distribution 14.3 % Normal 10.9-14.3 [facility] Comment on above: Performed By: #### I CRESP #### [facility] (DEFAULT) [address] [place] [address] 84797 WBC (Bld) [#/Vol] 16.35 10*3/uL High 3.73-10.10 [facility] Comment on above: Performed By: #### I CRESP #### [facility] (DEFAULT) [address] [place] [address] Chest W contrast Jesse Radiology Study observation (narrative) [facility] GLUCOSE POCon 03-13-2025 Glucose [Mass/Vol] 106 mg/dL 70 - 179 mg/dL [facility] POC Sample Type CAPBL [facility] Glucose [Mass/Vol] 138 mg/dL 70 - 179 mg/dL [facility] Glucose [Mass/Vol] 145 mg/dL 70 - 179 mg/dL [facility] POC Sample Type CAPBL [facility] IMMUNOCOMPROMISED RESPIRATOR Y PANELon 03-13-2025 Adenovirus - Pcr Not detected Normal Not Detected [facility] Comment on above: Order Comment: Viral transport media (red screw top with red liquid media) or BAL - Collection must be done while wearing N-95 mask, eye protection, gown and gloves. \X09\Results should be used in conjunction with other clinical and laboratory findings. This result does not rule out co-infections with pathogens that are not screened for by the Respiratory Panel(RP). This RP assay was performed using a Film Array multiplex nucleic acid assay. Performed By: #### I CRESP #### [facility] (DEFAULT) [address] [address] Bordetella Parapertussis Not detected Normal Not Detected [facility] Comment on above: Order Comment: Viral transport media (red screw top with red liquid media) or BAL - Collection must be done while wearing N-95 mask, eye protection, gown and gloves. \X09\Results should be used in conjunction with other clinical and laboratory findings. This result does not rule out co-infections with pathogens that are not screened for by the Respiratory Panel(RP). This RP assay was performed using a Film Array multiplex nucleic acid assay. Performed By: #### I CRESP #### [facility] (DEFAULT) [address] [address] Bordetella Pertussis Not detected Normal Not Detected [facility] Comment on above: Order Comment: Viral transport media (red screw top with red liquid media) or BAL - Collection must be done while wearing N-95 mask, eye protection, gown and gloves. \X09\Results should be used in conjunction with other clinical and laboratory findings. This result does not rule out co-infections with pathogens that are not screened for by the Respiratory Panel(RP). This RP assay was performed using a Film Array multiplex nucleic acid assay. Performed By: #### I CRESP #### [facility] (DEFAULT) [address] [address] Chlamydia Pneumoniae Not detected Normal Not Detected [facility] Comment on above: Order Comment: Viral transport media (red screw top with red liquid media) or BAL - Collection must be done while wearing N-95 mask, eye protection, gown and gloves. \X09\Results should be used in conjunction with other clinical and laboratory findings. This result does not rule out co-infections with pathogens that are not screened for by the Respiratory Panel(RP). This RP assay was performed using a Film Array multiplex nucleic acid assay. Performed By: #### I CRESP #### [facility] (DEFAULT) [address] [address] Coronavirus 229E Not detected Normal Not Detected [facility] Comment on above: Order Comment: Viral transport media (red screw top with red liquid media) or BAL - Collection must be done while wearing N-95 mask, eye protection, gown and gloves. \X09\Results should be used in conjunction with other clinical and laboratory findings. This result does not rule out co-infections with pathogens that are not screened for by the Respiratory Panel(RP). This RP assay was performed using a Film Array multiplex nucleic acid assay. Performed By: #### I CRESP #### [facility] (DEFAULT) [address] [place] [address] Coronavirus Hku1 Not detected Normal Not Detected [facility] Comment on above: Order Comment: Viral transport media (red screw top with red liquid media) or BAL - Collection must be done while wearing N-95 mask, eye protection, gown and gloves. \X09\Results should be used in conjunction with other clinical and laboratory findings. This result does not rule out co-infections with pathogens that are not screened for by the Respiratory Panel(RP). This RP assay was performed using a Film Array multiplex nucleic acid assay. Performed By: #### I CRESP #### [facility] (DEFAULT) [address] [address] Coronavirus Nl63 Not detected Normal Not Detected [facility] Comment on above: Order Comment: Viral transport media (red screw top with red liquid media) or BAL - Collection must be done while wearing N-95 mask, eye protection, gown and gloves. \X09\Results should be used in conjunction with other clinical and laboratory findings. This result does not rule out co-infections with pathogens that are not screened for by the Respiratory Panel(RP). This RP assay was performed using a Film Array multiplex nucleic acid assay. Performed By: #### I CRESP #### [facility] (DEFAULT) [address] [address] Coronavirus Oc43 Not detected Normal Not Detected [facility] Comment on above: Order Comment: Viral transport media (red screw top with red liquid media) or BAL - Collection must be done while wearing N-95 mask, eye protection, gown and gloves. \X09\Results should be used in conjunction with other clinical and laboratory findings. This result does not rule out co-infections with pathogens that are not screened for by the Respiratory Panel(RP). This RP assay was performed using a Film Array multiplex nucleic acid assay. Performed By: #### I CRESP #### [facility] (DEFAULT) [address] [place] [address] Influenza A - Pcr Not detected Normal Not Detected [facility] Comment on above: Order Comment: Viral transport media (red screw top with red liquid media) or BAL - Collection must be done while wearing N-95 mask, eye protection, gown and gloves. \X09\Results should be used in conjunction with other clinical and laboratory findings. This result does not rule out co-infections with pathogens that are not screened for by the Respiratory Panel(RP). This RP assay was performed using a Film Array multiplex nucleic acid assay. Performed By: #### I CRESP #### [facility] (DEFAULT) [address] [address] Influenza B - Pcr Not detected Normal Not Detected [facility] Comment on above: Order Comment: Viral transport media (red screw top with red liquid media) or BAL - Collection must be done while wearing N-95 mask, eye protection, gown and gloves. \X09\Results should be used in conjunction with other clinical and laboratory findings. This result does not rule out co-infections with pathogens that are not screened for by the Respiratory Panel(RP). This RP assay was performed using a Film Array multiplex nucleic acid assay. Performed By: #### I CRESP #### [facility] (DEFAULT) [address] [address] Metapneumovirus - Pcr Not detected Normal Not Detected [facility] Comment on above: Order Comment: Viral transport media (red screw top with red liquid media) or BAL - Collection must be done while wearing N-95 mask, eye protection, gown and gloves. \X09\Results should be used in conjunction with other clinical and laboratory findings. This result does not rule out co-infections with pathogens that are not screened for by the Respiratory Panel(RP). This RP assay was performed using a Film Array multiplex nucleic acid assay. Performed By: #### I CRESP #### [facility] (DEFAULT) [address] [place] [address] Mycoplasma Pneumoniae Not detected Normal Not Detected [facility] Comment on above: Order Comment: Viral transport media (red screw top with red liquid media) or BAL - Collection must be done while wearing N-95 mask, eye protection, gown and gloves. \X09\Results should be used in conjunction with other clinical and laboratory findings. This result does not rule out co-infections with pathogens that are not screened for by the Respiratory Panel(RP). This RP assay was performed using a Film Array multiplex nucleic acid assay. Performed By: #### I CRESP #### [facility] (DEFAULT) [address] [address] Parainfluenza 1 - Pcr Not detected Normal Not Detected [facility] Comment on above: Order Comment: Viral transport media (red screw top with red liquid media) or BAL - Collection must be done while wearing N-95 mask, eye protection, gown and gloves. \X09\Results should be used in conjunction with other clinical and laboratory findings. This result does not rule out co-infections with pathogens that are not screened for by the Respiratory Panel(RP). This RP assay was performed using a Film Array multiplex nucleic acid assay. Performed By: #### I CRESP #### [facility] (DEFAULT) [address] [address] Parainfluenza 2 - Pcr Not detected Normal Not Detected [facility] Comment on above: Order Comment: Viral transport media (red screw top with red liquid media) or BAL - Collection must be done while wearing N-95 mask, eye protection, gown and gloves. \X09\Results should be used in conjunction with other clinical and laboratory findings. This result does not rule out co-infections with pathogens that are not screened for by the Respiratory Panel(RP). This RP assay was performed using a Film Array multiplex nucleic acid assay. Performed By: #### I CRESP #### [facility] (DEFAULT) [address] [address] Parainfluenza 3 - Pcr Not detected Normal Not Detected [facility] Comment on above: Order Comment: Viral transport media (red screw top with red liquid media) or BAL - Collection must be done while wearing N-95 mask, eye protection, gown and gloves. \X09\Results should be used in conjunction with other clinical and laboratory findings. This result does not rule out co-infections with pathogens that are not screened for by the Respiratory Panel(RP). This RP assay was performed using a Film Array multiplex nucleic acid assay. Performed By: #### I CRESP #### [facility] (DEFAULT) [address] [address] Parainfluenza 4 - Pcr Not detected Normal Not Detected [facility] Comment on above: Order Comment: Viral transport media (red screw top with red liquid media) or BAL - Collection must be done while wearing N-95 mask, eye protection, gown and gloves. \X09\Results should be used in conjunction with other clinical and laboratory findings. This result does not rule out co-infections with pathogens that are not screened for by the Respiratory Panel(RP). This RP assay was performed using a Film Array multiplex nucleic acid assay. Performed By: #### I CRESP #### [facility] (DEFAULT) [address] [address] Rhinovirus/Enterovirus - PCR Not detected Normal Not Detected [facility] Comment on above: Order Comment: Viral transport media (red screw top with red liquid media) or BAL - Collection must be done while wearing N-95 mask, eye protection, gown and gloves. \X09\Results should be used in conjunction with other clinical and laboratory findings. This result does not rule out co-infections with pathogens that are not screened for by the Respiratory Panel(RP). This RP assay was performed using a Film Array multiplex nucleic acid assay. Performed By: #### I CRESP #### [facility] (DEFAULT) [address] [address] Rsv - Pcr Not detected Normal Not Detected [facility] Comment on above: Order Comment: Viral transport media (red screw top with red liquid media) or BAL - Collection must be done while wearing N-95 mask, eye protection, gown and gloves. \X09\Results should be used in conjunction with other clinical and laboratory findings. This result does not rule out co-infections with pathogens that are not screened for by the Respiratory Panel(RP). This RP assay was performed using a Film Array multiplex nucleic acid assay. Performed By: #### I CRESP #### [facility] (DEFAULT) [address] [place] [address] SARS-CoV-2 (COVID-19) RNA JIHAN+probe Ql (Unsp spec) Not detected Normal NOT DETECTED [facility] Comment on above: Order Comment: Viral transport media (red screw top with red liquid media) or BAL - Collection must be done while wearing N-95 mask, eye protection, gown and gloves. \X09\Results should be used in conjunction with other clinical and laboratory findings. This result does not rule out co-infections with pathogens that are not screened for by the Respiratory Panel(RP). This RP assay was performed using a Film Array multiplex nucleic acid assay. Performed By: #### I CRESP #### [facility] (DEFAULT) [address] [address] MAGNESIUMon 03-13-2025 Magnesium [Mass/Vol] 1.5 mg/dL Low 1.6-2.6 [facility] Comment on above: Performed By: #### P ROCAL #### [facility] (DEFAULT) [address] [place] [address] Magnesium [Mass/Vol] 1.4 mg/dL Low 1.6 - 2 .6 mg/dL [facility] Magnesium [Mass/Vol] 1.4 mg/dL Low 1.6-2.6 [facility] Comment on above: Performed By: #### F LLD, FLP #### [facility] (DEFAULT) [address] [place] [address] MR Thoracic spine WO contras ton 03-13-2025 RADIOLOGY RADIOLOGY [facility] Radiology Study observation (narrative) [facility] MR Thoracic spine WO contras tOrdered By: Lolly De Paz on 03-13-2025 [facility] Work Phone: MRI PROCEDURE NOT PERFORMEDO rdered By: Silentscheduler User on 03-13-2025 Body surface area Derived from formula 1.9 m2 [facility] MRI PROCEDURE NOT PERFORMEDo n 03-13-2025 [facility] MRI SPINE THORACIC WITHOUT C ONTRASTon 03-13-2025 MRI SPINE THORACIC WITHOUT CONTRAST EXAM: MRI SPINE THORACIC WITHOUT CONTRAST, 03/13/2025 22:09 PM COMPARISON: MRI SPINE THORACIC WITHOUT CONTRAST February 11, 2025 CLINICAL INDICATIONS: 75 years Male postop weakness RELEVANT CLINICAL HISTORY: TECHNIQUE: A series of sagittal and axial multisequence images of the thoracic spine were obtained without intravenous contrast using standard protocol. Study was performed at 1.5 Gina. FINDINGS: There is motion artifact on several sequences most pronounced on the axial T1 and T2 images. Interval postoperative changes related to right lateral T7-T8 discectomy. There is T2 hyperintensity along the right T7-T8 vertebral bodies. Postoperative fluid in the adjacent right paraspinal region There is a right pleural effusion with adjacent atelectasis. Previously visualized disc osteophyte at the T7-T8 is no longer seen with decompression of the spinal canal. Persistent indentation on the anterior aspect of the thecal sac. Alignment is normal. Remaining vertebral body heights are unremarkable. No evidence of acute compression fracture deformity. Mild degenerative disc changes. There is a disc osteophyte T6-T7 and contributes to moderate central canal stenosis. No definite T2 hyperintense abnormality within the thoracic spinal cord. IMPRESSION: Interval right lateral T7-T8 discectomy. Previously visible dorsal disc osteophyte is no longer seen with decompression of the spinal canal. No thoracic spinal cord signal abnormality. Normal [facility] NT-PRO B-TYPE NATRIURETIC PE PTIDEon 03-13-2025 Natriuretic peptide B (Bld) [Mass/Vol] 858 pg/mL High <=540 [facility] Comment on above: Performed By: #### F LLD, FLP #### [facility] (DEFAULT) [address] [place] [address] No Panel Informationon 03-13 Interpretation and review of laboratory results Abnormal [facility] PHOSPHATE, INORGANICon 03-13 Phosphorous 2.4 mg/dL Normal 2.2-4.6 [facility] Comment on above: Performed By: #### P ROCAL #### [facility] (DEFAULT) [address] [place] [address] Interpretation and review of laboratory results Normal [facility] Phosphate [Mass/Vol] 2.2 mg/dL 2.2 - 4 .6 mg/dL [facility] Phosphorous 2.2 mg/dL Normal 2.2-4.6 [facility] Comment on above: Performed By: #### F LLD, FLP #### [facility] (DEFAULT) [address] [place] [address] Portable XR Chest Viewson RADIOLOGY RADIOLOGY [facility] Radiology Study observation (narrative) [facility] Portable XR Chest ViewsOrder ed By: Michelle Diaz on 03-13-2025 [facility] Work Phone: Respiratory virus DNA+RNA NA A+probe Nom (Unsp spec)Ordered By: Clare Mckinley on 03-13-2025 Adenovirus DNA JIHAN+probe Nom (Unsp spec) Not detected Not Detected [facility] B. parapertussis DNA JIHAN+probe Ql (Unsp spec) Not detected Not Detected [facility] B. pertussis DNA JIHAN+probe Ql (Unsp spec) Not detected Not Detected [facility] C. pneumoniae DNA JIHAN+probe Ql (Unsp spec) Not detected Not Detected [facility] FLUAV RNA JIHAN+probe Ql (Unsp spec) Not detected Not Detected [facility] FLUBV RNA JIHAN+probe Ql (Unsp spec) Not detected Not Detected [facility] HCoV 229E RNA JIHAN+non-probe Ql (Nph) Not detected Not Detected [facility] HCoV HKU1 RNA JIHAN+non-probe Ql (Nph) Not detected Not Detected [facility] HCoV NL63 RNA JIHAN+non-probe Ql (Nph) Not detected Not Detected [facility] HCoV OC43 RNA JIHAN+non-probe Ql (Nph) Not detected Not Detected [facility] hMPV A RNA JIHAN+probe Ql (Unsp spec) Not detected Not Detected [facility] Interpretation and review of laboratory results Normal [facility] M. pneumoniae DNA JIHAN+probe Ql (Unsp spec) Not detected Not Detected [facility] Parainfluenza virus 1 RNA JIHAN+probe Ql (Unsp spec) Not detected Not Detected [facility] Parainfluenza virus 2 RNA JIHAN+probe Ql (Unsp spec) Not detected Not Detected [facility] Parainfluenza virus 3 RNA JIHAN+probe Ql (Unsp spec) Not detected Not Detected [facility] Parainfluenza virus 4 RNA JIHAN+probe Ql (Unsp spec) Not detected Not Detected [facility] Rhinovirus+Enterovirus RNA JIHAN+probe Ql (Unsp spec) Not detected Not Detected [facility] RSV RNA JIHAN+probe Ql (Unsp spec) Not detected Not Detected [facility] SARS-CoV-2 (COVID-19) RNA JIHAN+probe Ql (Unsp spec) Not detected NOT DETECTED [facility] SEDIMENTATION RATE, AUTOMATE Don 03-13-2025 ESR Westergren 75 mm/hr High <20 [facility] Comment on above: Performed By: #### X M #### [facility] (DEFAULT) [address] [place] [address]843 VENOUS BLOOD GASon 5 Base excess Calc (Bld) [Moles/Vol] 1.7 mmol/L -3.0 - 3.0 mmol/L [facility] CO2 (Bld) [Partial pressure] 51 mm[Hg] [facility] HCO3 (Bld) [Moles/Vol] 28 mmol/L 22 - 29 mmol/L [facility] Interpretation and review of laboratory results Abnormal [facility] Oxygen (Bld) [Partial pressure] 68 mm[Hg] mm Hg [facility] Oxygen saturation in Blood 94 % High 70 - 80 % [facility] pH (Bld) 7.34 [pH] 7.32 - 7.43 [facility] Specimen source Nom (Unsp spec) Venous [facility] Base Excess 1.7 mmol/L Normal -3.0-3.0 [facility] Comment on above: Performed By: #### G ASV5 #### [facility] (DEFAULT) [address] [place] [address]222 HCO3 (Bld) [Moles/Vol] 28 mmol/L Normal 22-29 [facility] Comment on above: Performed By: #### G ASV5 #### [facility] (DEFAULT) [address] [place] [address] 61531 Oxygen saturation in Blood 94 % High 70-80 [facility] Comment on above: Performed By: #### G ASV5 #### [facility] (DEFAULT) [address] [place] [address] 97366 pCO2, Venous 51 mm Hg Normal 36-52 [facility] Comment on above: Performed By: #### G ASV5 #### [facility] (DEFAULT) [address] [place] [address] 83131 pH, Venous 7.34 Normal 7.32-7.43 [facility] Comment on above: Performed By: #### G ASV5 #### [facility] (DEFAULT) [address] [place] [address] 72391 pO2, Venous 68 mm Hg Normal [facility] Comment on above: Result Comment: Veno us pO2 is not recommended for the evaluation of oxygen status, clinical correlation is recommended. Performed By: #### G ASV5 #### [facility] (DEFAULT) [address] [place] [address] 91350 Specimen type Nom (Spec) Venous Normal [facility] Comment on above: Performed By: #### G ASV5 #### [facility] (DEFAULT) [address] [place] [address] 36602 XR CHEST 1 VIEW PORTABLEon 0 03-13-2025 XR CHEST 1 VIEW PORTABLE EXAM: XR CHEST 1 VIEW PORTABLE, 03/13/2025 11:20 AM COMPARISON: March 11, 2025 CLINICAL INDICATIONS: new coughing, chest tube RELEVANT CLINICAL HISTORY: FINDINGS: (Adequate technique) Right thoracostomy tube is difficult to see. It is placed low lung the lateral right thorax and terminates in the right midlung. Increased small right effusion. Increased bilateral atelectasis. No pneumothorax. Stable cardiomediastinal silhouette. No interval bone findings. IMPRESSION: Right thoracostomy tube is difficult to see. No pneumothorax. Increased small right effusion and atelectasis. Normal [facility] BASIC METABOLIC PANELon 09-2 Anion gap [Moles/Vol] 15 mmol/L 7 - 17 mmol/L [facility] Calcium [Mass/Vol] 7.7 mg/dL Low 8.6 - 10. 5 mg/dL [facility] Chloride [Moles/Vol] 103 mmol/L 98 - 10 8 mmol/L [facility] CO2 [Moles/Vol] 25 mmol/L 21 - 31 mmol/L [facility] Creatinine [Mass/Vol] 0.78 mg/dL 0.70 - 1.30 mg/dL [facility] eGFR, CKD-EPI, Male - PINF [facility] Glucose [Mass/Vol] 134 mg/dL 70 - 179 mg/dL [facility] Osmolality Calc [Osmolality] 291 [facility] Potassium [Moles/Vol] 4.3 mmol/L 3.5 - 5.0 mmol/L [facility] Sodium [Moles/Vol] 139 mmol/L 135 - 145 mmol/L [facility] Urea nitrogen [Mass/Vol] 6 mg/dL Low 7 - 25 mg/dL [facility] Urea nitrogen/Creatinine [Mass ratio] 8 mg/mg [facility] Anion gap [Moles/Vol] 15 mmol/L Normal 7-17 [facility] Comment on above: Performed By: #### LUIS Dailey IPB ####[facility] (DEFAULT)[address] [place] [address] Calcium [Mass/Vol] 7.7 mg/dL Low 8.6-10.5 [facility] Comment on above: Performed By: #### LUIS Dailey IPB ####[facility] (DEFAULT)[address] [place] [address] Chloride [Moles/Vol] 103 mmol/L Normal 98-108 [facility] Comment on above: Performed By: #### LUIS Dailey IPB ####[facility] (DEFAULT)[address] [place] [address] CO2 [Moles/Vol] 25 mmol/L Normal 21-31 [facility] Comment on above: Performed By: #### LUIS Dailey IPB ####[facility] (DEFAULT)[address] [place] [address] Creatinine [Mass/Vol] 0.78 mg/dL Normal 0.70-1.30 [facility] Comment on above: Performed By: #### LUIS Dailey IPB ####[facility] (DEFAULT)[address] [place] [address] eGFR, CKD-EPI, Male > Normal >=60 [facility] Comment on above: Result Comment: Repo rted eGFR is based on the CKD-EPI 2020 equation using creatinine, age, and sex. Performed By: #### LUIS Dailey, IPB ####[facility] (DEFAULT)[address] [place] [address] Glucose [Mass/Vol] 134 mg/dL Normal Nonfastin g : 70-179 mg/dL; Fastin-99 [facility] Comment on above: Performed By: #### LUIS Dailey IPB ####[facility] (DEFAULT)[address] [place] [address] Osmolality [Osmolality] 291 mosm/kg Normal 278-305 [facility] Comment on above: Performed By: #### LUIS Dailey, IPB ####[facility] (DEFAULT)[address] [place] [address] Potassium [Moles/Vol] 4.3 mmol/L Normal 3.5-5.0 [facility] Comment on above: Performed By: #### LUIS Dailey, IPB ####[facility] (DEFAULT)[address] [place] [address] Sodium [Moles/Vol] 139 mmol/L Normal 135-145 [facility] Comment on above: Performed By: #### LUIS Dailey, IPB ####[facility] (DEFAULT)[address] [place] [address] Urea nitrogen [Mass/Vol] 6 mg/dL Low 7-25 [facility] Comment on above: Performed By: #### LUIS Dailey, IPB ####[facility] (DEFAULT)[address] [place] [address] Urea nitrogen/Creatinine [Mass ratio] 8 mg/mg Normal [facility] Comment on above: Performed By: #### C 7C, MGO, IPB ####[facility] (DEFAULT)[address] [place] [address] 23896 CBC,PLATELETSon 03-12-2025 Erythrocyte distribution width (RBC) [Ratio] 13.8 % 10.9 - 14.3 % [facility] Hematocrit (Bld) [Volume fraction] 36.8 % Low 39.6 - 48.8 % [facility] Hemoglobin (Bld) [Mass/Vol] 12.4 g/dL Low 13.4 - 16.8 g/dL [facility] Interpretation and review of laboratory results Abnormal [facility] MCH (RBC) [Entitic mass] 33.2 pg 26. 1 - 33.3 pg [facility] MCHC (RBC) [Mass/Vol] 33.7 g/dL 31.9 - 36.5 g/dL [facility] MCV (RBC) [Entitic vol] 98.4 fL High 79.0 - 94.5 fL [facility] Platelet mean volume (Bld) [Entitic vol] 10.2 fL 8.7 - 12.3 fL [facility] Platelets (Bld) [#/Vol] 184 10*3/uL 146 - 337 K/uL [facility] RBC (Bld) [#/Vol] 3.74 10*6/uL Low [facility] WBC (Bld) [#/Vol] 8.83 10*3/uL 3.73 - 10.10 K/uL [facility] Hematocrit (Bld) [Volume fraction] 36.8 % Low 39.6-48.8 [facility] Comment on above: Performed By: #### F LLD, FLP #### [facility] (DEFAULT) [address] [place] [address] Hemoglobin (Bld) [Mass/Vol] 12.4 g/dL Low 13.4-16.8 [facility] Comment on above: Performed By: #### F LLD, FLP #### [facility] (DEFAULT) [address] [place] [address]61 MCV (RBC) [Entitic vol] 98.4 fL High 79.0-94.5 O [facility] Comment on above: Performed By: #### F LLD, FLP #### [facility] (DEFAULT) [address] [place] [address] 80875 Mean Cell Hgb 33.2 pg Normal 26.1-33.3 [facility] Comment on above: Performed By: #### F LLD, FLP #### [facility] (DEFAULT) [address] [address] Mean Cell Hgb Conc 33.7 g/dL Normal 31.9-36.5 [facility] Comment on above: Performed By: #### F LLD, FLP #### [facility] (DEFAULT) [address] [address] Platelet mean volume (Bld) [Entitic vol] 10.2 fL Normal 8.7-12.3 [facility] Comment on above: Performed By: #### F LLD, FLP #### [facility] (DEFAULT) [address] [address] Platelets (Bld) [#/Vol] 184 10*3/uL Normal 146-337 [facility] Comment on above: Performed By: #### F LLD, FLP #### [facility] (DEFAULT) [address] [address] RBC (Bld) [#/Vol] 3.74 10*6/uL Low 4.38-5.83 [facility] Comment on above: Performed By: #### F LLD, FLP #### [facility] (DEFAULT) [address] [address] RBC Distribution 13.8 % Normal 10.9-14.3 [facility] Comment on above: Performed By: #### F LLD, FLP #### [facility] (DEFAULT) [address] [place] [address]39 WBC (Bld) [#/Vol] 8.83 10*3/uL Normal 3.73-10.10 [facility] Comment on above: Performed By: #### F LLD, FLP #### [facility] (DEFAULT) [address] [place] [address] GLUCOSE POCon 03-12-2025 Glucose [Mass/Vol] 238 mg/dL High 70 - 179 mg/dL [facility] Interpretation and review of laboratory results Abnormal [facility] POC Sample Type [facility]BL [facility] Glucose [Mass/Vol] 214 mg/dL High 70 - 179 mg/dL [facility] Interpretation and review of laboratory results Abnormal [facility] POC Sample Type CAPBL [facility] Glucose [Mass/Vol] 180 mg/dL High 70 - 179 mg/dL [facility] Interpretation and review of laboratory results Abnormal [facility] POC Sample Type CAPBL [facility] Glucose [Mass/Vol] 172 mg/dL 70 - 179 mg/dL [facility] POC Sample Type CAPBL [facility] MAGNESIUMon 03-12-2025 Magnesium [Mass/Vol] 1.3 mg/dL Low 1.6 - 2 .6 mg/dL [facility] Magnesium [Mass/Vol] 1.3 mg/dL Low 1.6-2.6 [facility] Comment on above: Performed By: #### C 7C, MGO, IPB ####[facility] (DEFAULT)[address] [place] [address] No Panel Informationon 03-12 Interpretation and review of laboratory results Abnormal [facility] PHOSPHATE, INORGANICon 03-12 Phosphate [Mass/Vol] 1.9 mg/dL Low 2.2 - 4 .6 mg/dL [facility] Phosphorous 1.9 mg/dL Low 2.2-4.6 [facility] Comment on above: Performed By: #### C 7C, MGO, IPB ####[facility] (DEFAULT)[address] [place] [address] 14208 PT,INR,PTTon 03-12-2025 aPTT Coag (PPP) [Time] 28.6 s [facility] INR Coag (Bld) [Relative time] 1.1 {INR} 0.9 - 1.1 [facility] Interpretation and review of laboratory results Normal [facility] PT Coag (PPP) [Time] 13.8 s [facility] aPTT Coag (Bld) [Time] 28.6 s Normal 24.0-34.3 [facility] Comment on above: Performed By: #### P ROCAL #### [facility] (DEFAULT) [address] [place] [address]376 INR Coag (PPP) [Relative time] 1.1 {INR} Normal 0.9-1.1 [facility] Comment on above: Performed By: #### P ROCAL #### [facility] (DEFAULT) [address] [place] [address] 76832 PT Coag (PPP) [Time] 13.8 s Normal 11.9-14.2 [facility] Comment on above: Performed By: #### P ROCAL #### [facility] (DEFAULT) [address] [place] [address] 46811 GLUCOSE POCon 03-11-2025 Glucose [Mass/Vol] 100 mg/dL 70 - 179 mg/dL [facility] POC Sample Type CAPBL [facility] Glucose [Mass/Vol] 52 mg/dL Low 70 - 179 mg/dL [facility] Glucose [Mass/Vol] 66 mg/dL Low 70 - 179 mg/dL [facility] Glucose [Mass/Vol] 81 mg/dL 70 - 179 mg/dL [facility] Glucose [Mass/Vol] 73 mg/dL 70 - 179 mg/dL [facility]OC [facility] Glucose [Mass/Vol] 75 mg/dL 70 - 179 mg/dL [facility] POC Sample Type ARTER [facility] Glucose [Mass/Vol] 85 mg/dL 70 - 179 mg/dL [facility] POC Sample Type CAPBL [facility] No Panel Informationon 03-11 ABO/RH(D) TYPE Positive [facility] BLOOD COMPONENT TYPE Red Cells, Leukoreduced [facility] BLOOD COMPONENT TYPE Plasma, Thawed [facility] EXPIRATION DATE [facility] EXPIRATION DATE [facility] Product ABO/RH(D) Positive [facility] Product ABO/RH(D) NUMBER 6200 [facility] PRODUCT CODE [id number] [facility] PRODUCT CODE [id number] [facility] Unit Compatibility Compatibile [facility] Unit Compatibility Not Required / Not Needed [facility] UNIT STATUS released [facility] Interpretation and review of laboratory results Abnormal [facility] POC Sample Type CAPBL [facility] PREPARE TO TRANSFUSE OR RED BLOOD CELLSon 03-11-2025 UNIT NUMBER [id number] [facility] UNIT NUMBER [id number] [facility] PREPARE TO TRANSFUSE PLASMAo n 03-11-2025 UNIT NUMBER [id number] [facility] UNIT NUMBER [id number] [facility] PT,INR,PTTon 03-11-2025 aPTT Coag (PPP) [Time] 28.3 s [facility] INR Coag (Bld) [Relative time] 1.0 {INR} 0.9 - 1.1 [facility] Interpretation and review of laboratory results Normal [facility] PT Coag (PPP) [Time] 13.2 s [facility] aPTT Coag (Bld) [Time] 28.3 s Normal 24.0-34.3 [facility] Comment on above: Performed By: #### F LLD, FLP #### [facility] (DEFAULT) [address] [place] [address]1682 INR Coag (PPP) [Relative time] 1.0 {INR} Normal 0.9-1.1 [facility] Comment on above: Performed By: #### F LLD, FLP #### [facility] (DEFAULT) [address] [place] [address]478 PT Coag (PPP) [Time] 13.2 s Normal 11.9-14.2 [facility] Comment on above: Performed By: #### F LLD, FLP #### [facility] (DEFAULT) [address] [place] [address] Portable XR Chest Viewson RADIOLOGY RADIOLOGY [facility] Radiology Study observation (narrative) [facility] Portable XR Chest ViewsOrder ed By: Irish Bean on 03-11-2025 [facility] Work Phone: TYPE AND SCREENon 03-11-2025 ABO/RH(D) TYPE Positive [facility] Specimen Expiration 03/14/2025 23:59 [facility] ABO/RH(D) TYPE Positive Normal [facility] Comment on above: Performed By: #### X M #### [facility] (DEFAULT) [address] [place] [address] Specimen Expiration 03/14/2025 23:59 Normal [facility] Comment on above: Performed By: #### X M #### [facility] (DEFAULT) [address] [place] [address] 32784 XR CHEST 1 VIEW PORTABLEon 0 03-11-2025 XR CHEST 1 VIEW PORTABLE EXAM: XR CHEST 1 VIEW PORTABLE, 03/11/2025 19:20 PM COMPARISON: July 17, 2012. CLINICAL INDICATIONS: postop, chest tube placement, evaluate for hemo/pneumothorax RELEVANT CLINICAL HISTORY: FINDINGS: (Adequate technique) Implanted Devices: None Thorax: Bibasilar atelectatic foci. The mid and upper lung zones are otherwise clear. No pleural effusions. No pneumothorax. The cardiomediastinal silhouette is within normal limits. IMPRESSION: 1. Bibasilar atelectatic foci. 2. The lungs are otherwise clear. Normal [facility] CALCIUMon 03-06-2025 Calcium [Mass/Vol] 8.4 mg/dL Low 8.6 - 10. 5 mg/dL [facility] CBC AND ELECTRONIC DIFFon Basophils (Bld) [#/Vol] 0.05 10*3/uL 0.00 - 0.09 K/uL [facility] Basophils/100 WBC (Bld) 0.5 % O [facility] Differential cell count method Nom (Bld) Electronic Differential [facility] Eosinophils (Bld) [#/Vol] 0.46 10*3/uL 0.00 - 0.48 K/uL [facility] Eosinophils/100 WBC (Bld) 4.5 % [facility] Erythrocyte distribution width (RBC) [Ratio] 14.4 % High 10.9 - 14.3 % [facility] Hematocrit (Bld) [Volume fraction] 43.0 % 39.6 - 48.8 % [facility] Hemoglobin (Bld) [Mass/Vol] 14.0 g/dL 13.4 - 16.8 g/dL [facility] Immature granulocytes (Bld) [#/Vol] K/uL NINF - 0.07 K/uL [facility] Immature granulocytes/100 WBC (Bld) 0.1 % [facility] Interpretation and review of laboratory results Abnormal [facility] Lymphocytes (Bld) [#/Vol] 2.93 10*3/uL 0.83 - 3.57 K/uL [facility] Lymphocytes/100 WBC (Bld) 28.6 % [facility] MCH (RBC) [Entitic mass] 32.2 pg 26. 1 - 33.3 pg [facility] MCHC (RBC) [Mass/Vol] 32.6 g/dL 31.9 - 36.5 g/dL [facility] MCV (RBC) [Entitic vol] 98.9 fL High 79.0 - 94.5 fL [facility] Monocytes (Bld) [#/Vol] 1.03 10*3/uL High 0.24 - 0.93 K/uL [facility] Monocytes/100 WBC (Bld) 10.1 % [facility] Neutrophils (Bld) [#/Vol] 5.75 10*3/uL 1.57 - 6.19 K/uL [facility] Nucleated RBC/100 WBC (Bld) [Ratio] 0.0 % [facility] Platelet mean volume (Bld) [Entitic vol] 10.8 fL 8.7 - 12.3 fL [facility] Platelets (Bld) [#/Vol] 245 10*3/uL 146 - 337 K/uL [facility] RBC (Bld) [#/Vol] 4.35 10*6/uL Low [facility] Segmented neutrophils/100 WBC (Bld) 56.2 % [facility] WBC (Bld) [#/Vol] 10.23 10*3/uL High 3.73 - 10.10 K/uL [facility] CHEM 7 (LYTES,BUN,CREA,GLUC) on 03-06-2025 Anion gap [Moles/Vol] 13 mmol/L 7 - 17 mmol/L [facility] Chloride [Moles/Vol] 104 mmol/L 98 - 10 8 mmol/L [facility] CO2 [Moles/Vol] 27 mmol/L 21 - 31 mmol/L [facility] Creatinine [Mass/Vol] 0.93 mg/dL 0.70 - 1.30 mg/dL [facility] eGFR, CKD-EPI, Male 86 - PINF [facility] Comment on above: Reported eGFR is bas ed on the CKD-EPI 2020 equation using creatinine, age, and sex. Glucose [Mass/Vol] 97 mg/dL 70 - 179 mg/dL [facility] Osmolality Calc [Osmolality] 290 [facility] Potassium [Moles/Vol] 3.5 mmol/L 3.5 - 5.0 mmol/L [facility] Sodium [Moles/Vol] 140 mmol/L 135 - 145 mmol/L [facility] Urea nitrogen [Mass/Vol] 9 mg/dL 7 - 25 mg/dL [facility] Urea nitrogen/Creatinine [Mass ratio] 10 mg/mg [facility] EXTRA MICROon 03-06-2025 [facility] GLUCOSE POCon 03-06-2025 Glucose [Mass/Vol] 140 mg/dL 70 - 179 mg/dL [facility] Glucose [Mass/Vol] 59 mg/dL Low 70 - 179 mg/dL [facility] Glucose [Mass/Vol] 85 mg/dL 70 - 179 mg/dL [facility] Interpretation and review of laboratory results Abnormal [facility] Glucose [Mass/Vol] 65 mg/dL Low 70 - 179 mg/dL [facility] Interpretation and review of laboratory results Abnormal [facility] POC Sample Type CAPBL [facility] Test performed at ad dress of the patient encounter. [facility] MAGNESIUMon 03-06-2025 Magnesium [Mass/Vol] 1.4 mg/dL Low 1.6 - 2 .6 mg/dL [facility] No Panel Informationon 03-06 POC Sample Type CAPBL [facility] Test performed at ad dress of the patient encounter. [facility] Interpretation and review of laboratory results Abnormal [facility] PHOSPHATE, INORGANICon 03-06 Interpretation and review of laboratory results Normal [facility] Phosphate [Mass/Vol] 2.8 mg/dL 2.2 - 4 .6 mg/dL [facility] PT,INR,PTTon 03-06-2025 aPTT Coag (PPP) [Time] 28.2 s [facility] INR Coag (Bld) [Relative time] 1.0 {INR} 0.9 - 1.1 [facility] Interpretation and review of laboratory results Normal [facility] PT Coag (PPP) [Time] 13.2 s [facility] SCREEN: MRSA/MSSAOrdered By: Khanh Brandon on 03-06-2025 Interpretation and review of laboratory results Abnormal [facility] Methicillin Resistant S. Aureus By Pcr Negative Negative [facility] Staphylococcus Aureus By Pcr Positive Abnormal Negative [facility] This test was perfor med using a real time PCR assay. Results should be interpreted in conjunction with other clinical and laboratory findings. A positive result does not necessarily indicate the presence of viable organism. This test should not be used as a test of cure. For E-swab specimens, this test was developed and its performance characteristics determined by the Clinical Microbiology Laboratory at [facility]. It has not been cleared or approved by the FDA.The laboratory is regulated under CLIA as qualified to perform high-complexity testing. This test is used for clinical purposes. It should not be regarded as investigational or for research. [facility] URINALYSIS REFLEX TO CULTURE PERFORMABLEon 03-06-2025 Appearance (U) Clear Clear [facility] Bacteria LM Ql (Urine sed) ABSENT ABSENT [facility] Color (U) Yellow Yellow [facility] Epithelial cells.squamous LM Ql (Urine sed) 0-2/hpf 0-2/hpf, 3-5/hpf = 1+ [facility] Glucose Test strip (U) [Mass/Vol] >=1000 mg/dL Abnormal Negative [facility] Interpretation and review of laboratory results Abnormal [facility] Ketones (U) [Mass/Vol] Negative Negative [facility] Leukocyte esterase Test strip Ql (U) Negative Negative [facility] Nitrite Ql (U) Negative Negative [facility] pH (U) 5.0 [pH] 5.0 - 7.0 [facility] Protein (U) [Mass/Vol] Negative Negative [facility] RBC (U) [#/Vol] Negative Negative [facility] RBC LM.HPF (Urine sed) [#/Area] 0-2 [facility] Specific gravity (U) [Rel density] 1.025 1.001 - 1.035 [facility] Urobilinogen (U) [Mass/Vol] 0.2 E.U./dL 0.2 E.U/dL, 1.0 E.U/dL [facility] WBC LM.HPF (Urine sed) [#/Area] 0 - 5 [facility] CALCIUMon 03-05-2025 Calcium [Mass/Vol] 8.4 mg/dL Low 8.6-10.5 [facility] Comment on above: Performed By: #### F LLD, FLP #### [facility] (DEFAULT) [address] [place] [address] CBC AND ELECTRONIC DIFFon Basophils (Bld) [#/Vol] 0.05 10*3/uL Normal 0.00-0.09 [facility] Comment on above: Performed By: #### L [id number] ####[facility] (DEFAULT)[address] [place] [address] Basophils/100 WBC (Bld) 0.5 % Normal O [facility] Comment on above: Performed By: #### L [id number] ####[facility] (DEFAULT)[address] [place] [address] DIFF STATUS Electronic Differential Normal [facility] Comment on above: Performed By: #### L [id number] ####[facility] (DEFAULT)[address] [place] [address] Eosinophils (Bld) [#/Vol] 0.46 10*3/uL Normal 0.00-0.48 [facility] Comment on above: Performed By: #### L [id number] ####[facility] (DEFAULT)[address] [facility] [place] [address] Eosinophils/100 WBC (Bld) 4.5 % Normal [facility] Comment on above: Performed By: #### L [id number] ####[facility] (DEFAULT)[address] [facility] [place] [address] Hematocrit (Bld) [Volume fraction] 43.0 % Normal 39.6-48.8 [facility] Comment on above: Performed By: #### L [id number] ####[facility] (DEFAULT)[address] [facility] [place] [address] Hemoglobin (Bld) [Mass/Vol] 14.0 g/dL Normal 13.4-16.8 [facility] Comment on above: Performed By: #### L [id number] ####[facility] (DEFAULT)[address] [facility] [place] [address] Immature Grans % 0.1 % Normal [facility] Comment on above: Performed By: #### L [id number] ####[facility] (DEFAULT)[address] [place] [address], [place] [address] Immature Grans Absolute < Normal <=0.07 [facility] Comment on above: Performed By: #### L [id number] ####[facility] (DEFAULT)[address] [facility] [place] [address] Lymphocytes (Bld) [#/Vol] 2.93 10*3/uL Normal 0.83-3.57 [facility] Comment on above: Performed By: #### L [id number] ####[facility] (DEFAULT)[address] [facility] [place] [address] Lymphocytes/100 WBC (Bld) 28.6 % Normal [facility] Comment on above: Performed By: #### L [id number] ####[facility] (DEFAULT)[address] [place] [address] MCV (RBC) [Entitic vol] 98.9 fL High 79.0-94.5 [facility] Comment on above: Performed By: #### L [id number] ####[facility] (DEFAULT)[address] [facility] [place] [address] Mean Cell Hgb 32.2 pg Normal 26.1-33.3 [facility] Comment on above: Performed By: #### L [id number] ####[facility] (DEFAULT)[address] [place] [address] Mean Cell Hgb Conc 32.6 g/dL Normal 31.9-36.5 [facility] Comment on above: Performed By: #### L [id number] ####[facility] (DEFAULT)[address] [place] [address] Monocytes (Bld) [#/Vol] 1.03 10*3/uL High 0.24-0.93 [facility] Comment on above: Performed By: #### L [id number] ####[facility] (DEFAULT)[address] [place] [address] Monocytes/100 WBC (Bld) 10.1 % Normal O [facility] Comment on above: Performed By: #### L [id number] ####[facility] (DEFAULT)[address] [place] [address] Nucleated RBC 0.0 /100 WBC Normal <=0.2 [facility] Comment on above: Performed By: #### L [id number] ####[facility] (DEFAULT)[address] [place] [address] Platelet mean volume (Bld) [Entitic vol] 10.8 fL Normal 8.7-12.3 [facility] Comment on above: Performed By: #### L [id number] ####[facility] (DEFAULT)[address] [place] [address] Platelets (Bld) [#/Vol] 245 10*3/uL Normal 146-337 [facility] Comment on above: Performed By: #### L [id number] ####[facility] (DEFAULT)[address] [facility] [place] [address] RBC (Bld) [#/Vol] 4.35 10*6/uL Low 4.38-5.83 [facility] Comment on above: Performed By: #### L [id number] ####[facility] (DEFAULT)[address] [facility] [place] [address] RBC Distribution 14.4 % High 10.9-14.3 [facility] Comment on above: Performed By: #### L [id number] ####[facility] (DEFAULT)[address] [facility] [place] [address] Segs + Bands Auto 56.2 % Normal [facility] Comment on above: Performed By: #### L [id number] ####[facility] (DEFAULT)[address] [facility] [place] [address] Segs + Bands,Absolute Auto 5.75 K/uL Normal 1.57-6.19 [facility] Comment on above: Performed By: #### L [id number] ####[facility] (DEFAULT)[address] [facility] [place] [address] WBC (Bld) [#/Vol] 10.23 10*3/uL High 3.73-10.10 [facility] Comment on above: Performed By: #### L [id number] ####[facility] (DEFAULT)[address] [place] [address] CHEM 7 (LYTES,BUN,CREA,GLUC) on 03-05-2025 Anion gap [Moles/Vol] 13 mmol/L Normal 7-17 [facility] Comment on above: Performed By: #### F LLD, FLP #### [facility] (DEFAULT) [address] [place] [address] Chloride [Moles/Vol] 104 mmol/L Normal 98-108 [facility] Comment on above: Performed By: #### F LLD, FLP #### [facility] (DEFAULT) [address] [place] [address] CO2 [Moles/Vol] 27 mmol/L Normal 21-31 [facility] Comment on above: Performed By: #### F LLD, FLP #### [facility] (DEFAULT) [address] [place] [address] Creatinine [Mass/Vol] 0.93 mg/dL Normal 0.70-1.30 [facility] Comment on above: Performed By: #### F LLD, FLP #### [facility] (DEFAULT) [address] [place] [address] GFR/1.73 sq M.predicted among non-blacks MDRD (S/P/Bld) [Vol rate/Area] 86 mL/min/{1.73_m2} Normal >=60 [facility] Comment on above: Result Comment: Repo rted eGFR is based on the CKD-EPI 2020 equation using creatinine, age, and sex. Performed By: #### F LLD, FLP #### [facility] (DEFAULT) [address] [place] [address] Glucose [Mass/Vol] 97 mg/dL Normal Nonfastin g : 70-179 mg/dL; Fastin-99 [facility] Comment on above: Performed By: #### F LLD, FLP #### [facility] (DEFAULT) [address] [place] [address] Osmolality [Osmolality] 290 mosm/kg Normal 278-305 [facility] Comment on above: Performed By: #### F LLD, FLP #### [facility] (DEFAULT) [address] [place] [address] Potassium [Moles/Vol] 3.5 mmol/L Normal 3.5-5.0 [facility] Comment on above: Performed By: #### F LLD, FLP #### [facility] (DEFAULT) [address] [place] [address] Sodium [Moles/Vol] 140 mmol/L Normal 135-145 [facility] Comment on above: Performed By: #### F LLD, FLP #### [facility] (DEFAULT) [address] [place] [address] Urea nitrogen [Mass/Vol] 9 mg/dL Normal 7-25 [facility] Comment on above: Performed By: #### F LLD, FLP #### [facility] (DEFAULT) [address] [place] [address] Urea nitrogen/Creatinine [Mass ratio] 10 mg/mg Normal [facility] Comment on above: Performed By: #### F LLD, FLP #### [facility] (DEFAULT) [address] [place] [address] MAGNESIUMon 03-05-2025 Magnesium [Mass/Vol] 1.4 mg/dL Low 1.6-2.6 [facility] Comment on above: Performed By: #### F LLD, FLP #### [facility] (DEFAULT) [address] [place] [address] PHOSPHATE, INORGANICon 03-05 Phosphorous 2.8 mg/dL Normal 2.2-4.6 [facility] Comment on above: Performed By: #### F LLD, FLP #### [facility] (DEFAULT) [address] [place] [address] PT,INR,PTTon 03-05-2025 aPTT Coag (Bld) [Time] 28.2 s Normal 24.0-34.3 [facility] Comment on above: Performed By: #### P TPTT #### [facility] (DEFAULT) [address] [address] INR Coag (PPP) [Relative time] 1.0 {INR} Normal 0.9-1.1 [facility] Comment on above: Performed By: #### P TPTT #### [facility] (DEFAULT) [address] [address] PT Coag (PPP) [Time] 13.2 s Normal 11.9-14.2 [facility] Comment on above: Performed By: #### P TPTT #### [facility] (DEFAULT) [address] [address] SCREEN: MRSA/MSSAon 03-05-20 25 Methicillin Resistant S. Aureus By Pcr Negative Normal Negative [facility] Comment on above: Order Comment: Colle ct with an ESWAB - Anterior Nares for MRSA + MSSAThis test was performed using a real time PCR assay. Results should be interpreted in conjunction with other clinical and laboratory findings. A positive result does not necessarily indicate the presence of viable organism. This test should not be used as a test of cure. For E-swab specimens, this test was developed and its performance characteristics determined by the Clinical Microbiology Laboratory at [facility]. It has not been cleared or approved by the FDA.The laboratory is regulated under CLIA as qualified to perform high-complexity testing. This test is used for clinical purposes. It should not be regarded as investigational or for research. Performed By: #### P TPTT #### [facility] (DEFAULT) [address] [address] Staphylococcus Aureus By Pcr Positive Abnormal Negative [facility] Comment on above: Order Comment: Colle ct with an ESWAB - Anterior Nares for MRSA + MSSAThis test was performed using a real time PCR assay. Results should be interpreted in conjunction with other clinical and laboratory findings. A positive result does not necessarily indicate the presence of viable organism. This test should not be used as a test of cure. For E-swab specimens, this test was developed and its performance characteristics determined by the [facility] Microbiology [facility] at [facility]. It has not been cleared or approved by the FDA.The laboratory is regulated under CLIA as qualified to perform high-complexity testing. This test is used for clinical purposes. It should not be regarded as investigational or for research. Performed By: #### P TPTT #### [facility] (DEFAULT) [address] [place] [address] URINALYSIS REFLEX TO CULTURE PERFORMABLEon 03-05-2025 Appearance (U) Clear Normal Clear [facility] Comment on above: Order Comment: For i ndwelling catheters, specimen collection is acceptable on catheter day 1 and 2 only. ? Performed By: #### P TPTT #### [facility] (DEFAULT) [address] [place] [address] Bacteria ABSENT Normal ABSENT [facility] Comment on above: Order Comment: For i ndwelling catheters, specimen collection is acceptable on catheter day 1 and 2 only. ? Performed By: #### P TPTT #### [facility] (DEFAULT) [address] [place] [address] Blood Urine Negative Normal Negative [facility] Comment on above: Order Comment: For i ndwelling catheters, specimen collection is acceptable on catheter day 1 and 2 only. ? Performed By: #### P TPTT #### [facility] (DEFAULT) [address] [place] [address] Color (U) Yellow Normal Yellow [facility] Comment on above: Order Comment: For i ndwelling catheters, specimen collection is acceptable on catheter day 1 and 2 only. ? Performed By: #### P TPTT #### [facility] (DEFAULT) [address] [place] [address] Glucose Ql (U) >=1000 mg/dL Abnormal Negative [facility] Comment on above: Order Comment: For i ndwelling catheters, specimen collection is acceptable on catheter day 1 and 2 only. ? Performed By: #### P TPTT #### [facility] (DEFAULT) [address] [place] [address] Ketones Ql (U) Negative Normal Negative [facility] Comment on above: Order Comment: For i ndwelling catheters, specimen collection is acceptable on catheter day 1 and 2 only. ? Performed By: #### P TPTT #### [facility] (DEFAULT) [address] [place] [address] Leukocyte esterase Test strip Ql (U) Negative Normal Negative [facility] Comment on above: Order Comment: For i ndwelling catheters, specimen collection is acceptable on catheter day 1 and 2 only. ? Performed By: #### P TPTT #### [facility] (DEFAULT) [address] [place] [address] Nitrites Urine Negative Normal Negative [facility] Comment on above: Order Comment: For i ndwelling catheters, specimen collection is acceptable on catheter day 1 and 2 only. ? Performed By: #### P TPTT #### [facility] (DEFAULT) [address] [place] [address] pH (U) 5.0 [pH] Normal 5.0-7.0 [facility] Comment on above: Order Comment: For i ndwelling catheters, specimen collection is acceptable on catheter day 1 and 2 only. ? Performed By: #### P TPTT #### [facility] (DEFAULT) [address] [place] [address] Protein Urine Negative Normal Negative [facility] Comment on above: Order Comment: For i ndwelling catheters, specimen collection is acceptable on catheter day 1 and 2 only. ? Performed By: #### P TPTT #### [facility] (DEFAULT) [address] [place] [address] RBC Urine 0-2 Normal 0-2 [facility] Comment on above: Order Comment: For i ndwelling catheters, specimen collection is acceptable on catheter day 1 and 2 only. ? Performed By: #### P TPTT #### [facility] (DEFAULT) [address] [place] [address] Specific [place] Urine 1.025 Normal 1.001 -1.03 5 [facility] Comment on above: Order Comment: For i ndwelling catheters, specimen collection is acceptable on catheter day 1 and 2 only. ? Performed By: #### P TPTT #### [facility] (DEFAULT) [address] [address] Squamous/Epithelial Cells, Urine 0-2/hpf Normal 0-2/hpf, 3-5/hpf = 1+ [facility] Comment on above: Order Comment: For i ndwelling catheters, specimen collection is acceptable on catheter day 1 and 2 only. ? Performed By: #### P TPTT #### [facility] (DEFAULT) [address] [address] Urobilinogen Urine 0.2 E.U./dL Normal 0.2 E.U/dL, 1.0 E.U/dL [facility] Comment on above: Order Comment: For i ndwelling catheters, specimen collection is acceptable on catheter day 1 and 2 only. ? Performed By: #### P TPTT #### [facility] (DEFAULT) [address] [address] WBC Urine 0 - 5 Normal 0 - 5 [facility] Comment on above: Order Comment: For i ndwelling catheters, specimen collection is acceptable on catheter day 1 and 2 only. ? Performed By: #### P TPTT #### [facility] (DEFAULT) [address] [address] Bilirubin directOrdered By: Marjan Rasmussen on 02-25-2025 Bilirubin.direct [Mass/Vol] 0.26 mg/dL 0.00-0.30 [facility] Bilirubin, totalOrdered By: Marjan Rasmussen on 02-25-2025 Bilirubin [Mass/Vol] 0.51 mg/dL 0.00-1.30 [facility] Laboratory - Chemistry and C hemistry - challengeOrdered By: Marjan Rasmussen on 02-25-2025 AST [Catalytic activity/Vol] 27 U/L <38 [facility] Liver Profileon 02-25-2025 Albumin [Mass/Vol] 3.8 g/dL Normal 3.4-4.8 [facility] Comment on above: Performed By: #### L 500.3400 ####[facility] [id number] [place], [address] ALK PHOS 48 U/L Normal 40-129 [facility] Comment on above: Performed By: #### L [id number] ####[facility] [address] [place], [address] ALT [Catalytic activity/Vol] 18 U/L Normal <=46 [facility] Comment on above: Performed By: #### L 500.3400 ####[facility] [address] [place], [address] AST [Catalytic activity/Vol] 27 U/L Normal <=37 [facility] Comment on above: Performed By: #### L 500.3400 ####[facility] [address] [place], [address] Bilirubin [Mass/Vol] 0.51 mg/dL Normal 0.00-1.30 [facility] Comment on above: Performed By: #### L 500.3400 ####[facility] [address] [place], [address] Bilirubin.direct [Mass/Vol] 0.26 mg/dL Normal 0.00-0.30 [facility] Comment on above: Performed By: #### L 500.3400 ####[facility] [id number] [place], [address] Globulin (S) [Mass/Vol] 2.5 g/dL Normal 2.2-4.2 [facility] Comment on above: Performed By: #### L 500.3400 ####[facility] [id number] [place], [address] T PROT 6.3 g/dL Normal 5.9-8.4 [facility] Comment on above: Performed By: #### L 500.3400 ####[facility] [id number] [place], [address] Serum globulin measurementOr dered By: Marjan Kwanartem on 02-25-2025 Globulin (S) [Mass/Vol] 2.5 g/dL 2.2-4.2 [facility] Serum or plasma alanine gandhi otransferase (ALT) measurementOrdered By: Marjan Kwanartem on 02-25-2025 ALT [Catalytic activity/Vol] 18 U/L <47 [facility] Serum or plasma albumin meño urement (mass/volume)Ordered By: Marjan Kwanartem on 02-25-2025 Albumin [Mass/Vol] 3.8 g/dL 3.4-4.8 [facility] Serum or plasma alkaline adam sphatase measurementOrdered By: Marjan Kwanartem on 02-25-2025 ALP [Catalytic activity/Vol] 48 U/L 40-129 [facility] Total proteinOrdered By: Peter jaramillo Kwanartem on 02-25-2025 Protein [Mass/Vol] 6.3 g/dL 5.9-8.4 [facility] MRI SPINE CERVICAL WITHOUT C ONTRASTon 02-14-2025 MRI SPINE CERVICAL WITHOUT CONTRAST EXAM: MRI SPINE CERVICAL WITHOUT CONTRAST CLINICAL INDICATIONS: papraparesis Technique: Multiplanar multisequence MRI of the cervical spine without administration of terminus contrast. Comparison: None. Findings: Straightening of cervical spine. Vertebral body heights are maintained. Moderate intervertebral space narrowing from C3-C7. No listhesis. No bony edema or suspicious osseous lesions. Anterior and posterior endplate osteophytes. No prevertebral tumor. No suspicious cervical cord lesions. Visualized intracranial contents appear unremarkable. C1-C2: No significant spinal canal stenosis. No significant neuroforaminal narrowing C2-C3: Minimal thickening of the posterior longitudinal ligament. No significant spinal canal stenosis or neural foraminal narrowing C3-C4: 3 mm posterior disk osteophyte complex. Mild spinal canal stenosis. Facet hypertrophy with severe left-sided and [id number] right-sided neuroforaminal narrowing C4-C5: 4 mm thickening of the posterior margin of ligament. No significant spinal canal stenosis. Facet hypertrophy with moderate to severe right-sided and moderate left-sided neural foraminal narrowing C5-C6: 4 mm thickening of the posterior margin ligament. No significant spinal canal stenosis. Facet hypertrophy with moderate right-sided and mild left-sided neuroforaminal narrowing C6-C7: 2 to 3 mm thickening of the posterior margin of ligament. No significant spinal canal stenosis. Moderate right-sided and mild left-sided neural foraminal narrowing C7-T1: No significant spinal canal stenosis. No significant neuroforaminal narrowing Fluids are preserved. No enlarged lymph nodes. Posterior paraspinal musculature appear unremarkable. IMPRESSION: Multilevel degenerative changes with severe left-sided and mild to moderate right-sided neuroforaminal narrowing at C3-C4, moderate to severe right-sided and moderate left-sided neural foraminal narrowing at C4-C5, and moderate right-sided neuroforaminal narrowing at C5-C6 and C6-C7. No high-grade spinal canal stenosis. No focal cervical cord lesions. No suspicious osseous lesions. Devendra Altman M.D. This report has been electronically signed and verified by the Radiologist whose name is printed above. This report contains privileged and confidential information and is intended solely for the use of the individual or entity to which it is addressed. If you are not the intended recipient of this report, you are hereby notified that any copying, distribution, dissemination or action taken in relation to the contents of this report is strictly prohibited and may be unlawful. If you have received this report in error, please notify the sender immediately at [phone] and permanently delete the original report and destroy any copies or printouts. Normal [facility] MRI SPINE THORACIC WITHOUT C [facility] 02-14-2025 MRI SPINE THORACIC WITHOUT CONTRAST EXAM: MRI SPINE THORACIC WITHOUT CONTRAST CLINICAL INDICATIONS: lower extrmity weakness, papraparesis Technique: Multiplanar multisequence MRI of the thoracic spine without administration of intravenous contrast Comparison: None. Findings: Alignment is maintained. Vertebral body heights are maintained. Mild to moderate intervertebral space narrowing at T5-T6, T6-T7, T7-T8. Minimal Modic type I endplate changes involving T7-T8. No suspicious osseous lesions. No prevertebral tumor. Scattered anterior endplate osteophytes. No focal thoracic cord lesions. 4 mm disk bulge with minimal to mild spinal canal stenosis at T4-T5. 4 mm disk bulge at T6-T7 with mild spinal canal stenosis, with AP diameter measuring up to 9 mm. 3 mm disk bulge and dorsal epidural fat with severe spinal canal stenosis, with AP diameter measuring up to 6.5 mm at the level of T7-T8. Otherwise, no significant spinal canal stenosis. Mild facet hypertrophy at T9-T10 and T10-T11. No high-grade neuroforaminal narrowing at any level. Posterior paraspinal musculature unremarkable. No evidence of aortic aneurysms. IMPRESSION: No acute osseous abnormality. No focal cervical cord lesions. Multilevel degenerative changes, greatest at T7-T8 with severe spinal canal stenosis. Devendra Altamn M.D. This report has been electronically signed and verified by the Radiologist whose name is printed above. This report contains privileged and confidential information and is intended solely for the use of the individual or entity to which it is addressed. If you are not the intended recipient of this report, you are hereby notified that any copying, distribution, dissemination or action taken in relation to the contents of this report is strictly prohibited and may be unlawful. If you have received this report in error, please notify the sender immediately at [phone] and permanently delete the original report and destroy any copies or printouts. Normal [facility] Magnetic resonance imaging r eportOrdered By: Colin Mccurdy on 02-11-2025 Study report [facility] [address] [place] [address] [id number] Upper Ext Joint Only(Routine) MR#: [id number] Acct: [id number] Name: GRACIE LEMONS Rep #: [id number] : 1950 M 75 From: Karthik Mccurdy MD PCP: Dr. Armando Kohli MD Status: REG C KHANH Study:Upper Ext Joint Only(Routine) Date of Exam: 02/10/25 Exam# [id number] Ordering Dr: Armando Kohli MD PROCEDURE: UPPER EXT JOINT ONLY(ROUTINE) 02/10/2025 REASON FOR EXAM: SEVERE (R) SHOULDER PAIN, DECREASED ROM DUE TO TRAUMA IN (R) SHOU TECHNIQUE: T1, T2, PD, MRI right shoulder) multiplanar and multisequence images were obtained without IV contrast administration. COMPARISON: COMPARISON: February 04, 2025 x-ray FINDINGS: Bone Marrow: There is no bony contusion or occult fracture. AC joint: There is moderate AC joint hypertrophy. There is widening of the AC joint to 0.5 cm with an effusion noted. There is disruption of the superior and inferior acromioclavicular ligaments. The conoidand trapezoid ligaments appear intact. There is no subluxation, consistent with a type 2 separation. There is a type 2 acromion. Rotator cuff: There is severe supraspinatus and infraspinatus muscular atrophy. There is moderate subscapularis muscular atrophy. There is a full-thickness, full width tear of the supraspinatus with 5cm of retraction. There is a full-thickness, full width tear of the infraspinatus with 4.5 cm of retraction. There is a full-thickness, full width tear of the subscapularis with 3 cm of retraction. The teres minor appears intact. Effusion: There is a large joint effusion which extends into the subacromial subdeltoid bursa. Biceps tendon: The biceps tendon is absent from the upper biceps tendon groove and is avulsed. Labrum: There is a tear of the labrum from the 10 o'clock 2 o'clock position, including the biceps tendon anchor. Soft Tissues: There is edema throughout the deltoid muscle with a 1.8 by 0.9 cm intramuscular hematoma. Intramuscular edema is present in the trapezius without focal tear identified. MRI/Upper Ext Joint Only(Routine) IMPRESSION: There is moderate AC joint hypertrophy. There is widening of the AC joint to 0.5cm with an effusion noted. There is disruption of the superior and inferior acromioclavicular ligaments. The conoid and trapezoid ligaments appear intact. There is no subluxation, consistent with a type 2 separation. There is severe supraspinatus and infraspinatus muscular atrophy. There is moderate subscapularis muscular atrophy. There is a full-thickness, full width tear of the supraspinatus with 5 cm of retraction. There is a full-thickness, full width tear of the infraspinatus with 4.5 cm of retraction. There is a full-thickness, full width tear of the subscapularis with 3 cm of retraction. There is a large joint effusion which extends into the subacromial subdeltoid bursa. The biceps tendon is absent from the upper biceps tendon groove and is avulsed. There is a tear of the labrum from the 10 o'clock 2 o'clock position, including the biceps tendon anchor. There is edema throughout the deltoid muscle with a 1.8 by 0.9 cm intramuscular hematoma. Intramuscular edema is present in the trapezius without focal tear identified. Reading Location: [facility] CC: Dr. Armando Kohli MD ~ [employer] Coach: Signed [facility] Upper Ext Joint Only(Routine )on 02-10-2025 Upper Ext Joint Only(Routine) Normal [facility] Shoulder min 2 Viewson 02-04 Shoulder min 2 Views Normal [facility] Absolute lymphocyte countOrd ered By: Marjan Rasmussen on 01-27-2025 Lymphocytes Auto (Unsp spec) [#/Vol] 1.75 10*3/uL 0.83-4.51 [facility] Absolute neutrophil countOrd ered By: [facility] on 01-27-2025 Neutrophils (Bld) [#/Vol] 8.1 10*3/uL High 2.0-7.7 [facility] Automated lymphocyte count a s percentage of total leukocytesOrdered By: Marjan Bowensartem on 01-27-2025 Lymphocytes/100 WBC Auto (Unsp spec) 16.3 % Low 19-41 [facility] Basophil percentageOrdered B y: Marjan Bowensartem on 01-27-2025 Basophils/100 WBC (Bld) 0.3 % 0-1 [facility] CBC W/Diff, Automatedon 01-15 Absolute Lymph 1.75 X10 3/uL Normal 0.83-4.51 [facility] Comment on above: Performed By: #### L 100.0100 ####[facility] [address] [place], [address] Absolute Neut 8.1 X10 3/uL High 2.0-7.7 [facility] Comment on above: Performed By: #### L 100.0100 ####[facility] [address] [place], [address] Basophils/100 WBC (Bld) 0.3 % Normal 0-1 [facility] Comment on above: Performed By: #### L 100.0100 ####[facility] [address] [place], [address] Eosinophils/100 WBC (Bld) 0.8 % Normal 0-5 [facility] Comment on above: Performed By: #### L 100.0100 ####[facility] [address] [place], [address] Erythrocyte distribution width (RBC) [Ratio] 15.9 % High 11.6-14.6 [facility] Comment on above: Performed By: #### L 100.0100 ####[facility] [address] [place], [address] Hematocrit (Bld) [Volume fraction] 40.3 % Normal 40-54 [facility] Comment on above: Performed By: #### L 100.0100 ####[facility] [address] [place], [address] Hemoglobin (Bld) [Mass/Vol] 13.1 g/dL Normal 13.0-16.5 [facility] Comment on above: Performed By: #### L 100.0100 ####[facility] [address] [place], [address] IG% 0.500 Normal 0.0-0.9 [facility] Comment on above: Result Comment: IG% - Immature Granulocytes (promyelocytes, myelocytes andmetamyelocytes) > 1% indicates that a LEFT SHIFT is Present. Performed By: #### L 100.0100 ####[facility] [address] [place], [address] Lymphocytes/100 WBC (Bld) 16.3 % Low 19-41 [facility] Comment on above: Performed By: #### L 100.0100 ####[facility] [address] [place], [address] MCH (RBC) [Entitic mass] 32.0 pg Normal 27.0-32.0 [facility] Comment on above: Performed By: #### L 100.0100 ####[facility] [address] [place], [address] MCHC (RBC) [Mass/Vol] 32.5 g/dL Normal 32-36 [facility] Comment on above: Performed By: #### L 100.0100 ####[facility] [address] [place], [address] MCV (RBC) [Entitic vol] 98.3 fL High 80-94 [facility] Comment on above: Performed By: #### L 100.0100 ####[facility] [address] [place], [address] Monocytes/100 WBC (Bld) 7.2 % Normal 0-10 [facility] Comment on above: Performed By: #### L 100.0100 ####[facility] [address] [place], [address] Neutrophils/100 WBC (Bld) 74.9 % High 47-70 [facility] Comment on above: Performed By: #### L 100.0100 ####[facility] [address] [place], [address] Nucleated RBC (Bld) [#/Vol] 0.2 10*3/uL Normal 0-5 [facility] Comment on above: Performed By: #### L 100.0100 ####[facility] [address] [place], [address] Platelet mean volume (Bld) [Entitic vol] 10.2 fL Normal 6.2-12.0 [facility] Comment on above: Performed By: #### L 100.0100 ####[facility] [address] [place], [address] Platelets (Bld) [#/Vol] 222 10*3/uL Normal 150-450 [facility] Comment on above: Performed By: #### L 100.0100 ####[facility] [address] [place], [address] RBC (Bld) [#/Vol] 4.10 10*6/uL Low 4.6-6.2 [facility] Comment on above: Performed By: #### L 100.0100 ####[facility] [address] [place], [address] RDW SD 55.6 fl High 35.1-43.9 [facility] Comment on above: Performed By: #### L 100.0100 ####[facility] [address] [place], [address] WBC (Bld) [#/Vol] 10.8 10*3/uL Normal 4.4-11.0 [facility] Comment on above: Performed By: #### L 100.0100 ####[facility] [address] [place], [address] Eosinophil percentageOrdered By: Marjan Rasmussen on 01-27-2025 Eosinophils/100 WBC (Bld) 0.8 % 0-5 [facility] Erythrocyte distribution wid th ratioOrdered By: Marjan Rasmussen on 01-27-2025 Erythrocyte distribution width (RBC) [Ratio] 15.9 % High 11.6-14.6 [facility] Erythrocyte distribution wid th standard deviationOrdered By: Marjan Rasmussen on 01-27-2025 Erythrocyte distribution width (RBC) [Ratio] 55.6 fl High 35.1-43.9 [facility] Hematocrit Auto (Bld) [Volum e fraction]Ordered By: Marjan Rasmussen on 01-27-2025 Hematocrit (Bld) [Volume fraction] 40.3 % 40-54 [facility] Hemoglobin measurementOrdere d By: Marjan Rasmussen on 01-27-2025 Hemoglobin (Bld) [Mass/Vol] 13.1 g/dL 13.0-16.5 [facility] Immature granulocytes/100 WB C Auto (Bld)Ordered By: Marjan Rasmussen on 01-27-2025 Immature granulocytes/100 WBC (Bld) 0.500 % 0.0-0.9 [facility] Comment on above: IG% - Immature Granu locytes (promyelocytes, myelocytes and metamyelocytes) > 1% indicates that a LEFT SHIFT is Present. MCV (mean corpuscular volume ) determinationOrdered By: Marjan Rasmussen on 01-27-2025 MCV (RBC) [Entitic vol] 98.3 fL High 80-94 [facility] Mean corpuscular hemoglobin (MCH) determinationOrdered By: Marjan Rasmussen on 01-27-2025 MCH (RBC) [Entitic mass] 32.0 pg 27.0-32.0 [facility] Mean corpuscular hemoglobin concentration (MCHC) determinationOrdered By: Marjan Rasmussen on 01-27-2025 MCHC (RBC) [Mass/Vol] 32.5 g/dL 32-36 [facility] Mean platelet volume determi nationOrdered By: Marjan Rasmussen on 01-27-2025 Platelet mean volume (Bld) [Entitic vol] 10.2 fL 6.2-12.0 [facility] Monocyte percentageOrdered B y: Marjan Rasmussen on 01-27-2025 Monocytes/100 WBC (Bld) 7.2 % 0-10 [facility] Neutrophil percentageOrdered By: Marjan Rasmussen on 01-27-2025 Neutrophils/100 WBC (Bld) 74.9 % High 47-70 [facility] Nucleated red blood cell per centageOrdered By: Marjan Rasmussen on 01-27-2025 Nucleated RBC/100 WBC (Bld) [Ratio] 0.2 % 0-5 [facility] Platelet countOrdered By: Sia Rasmussen on 01-27-2025 Platelets (Bld) [#/Vol] 222 10*3/uL 150-450 [facility] RBC Auto (Bld) [#/Vol]Ordere d By: Marjan Rasmussen on 01-27-2025 RBC (Bld) [#/Vol] 4.10 10*6/uL Low 4.6-6.2 [facility] Venous Duplex US - Lesly Extre mon 01-27-2025 Venous Duplex US - Lesly Extrem Normal [facility] Venous duplex ultrasound rep ortOrdered By: Gt Garcia on 01-27-2025 US Vein [facility] [address] [place] [address] Venous Duplex US - Lesly Extrem 01/27/25 0956 MR#: [id number] Acct: [id number] Name: GRACIE LEMONS Rep #:[id number] : 1950 75 From: Gt Garcia MD Attending Dr: Dr. Marjan Rasmussen MD Status: REG CLI Ordering Dr: Marjan Rasmussen MD Date: 01/27/25 Location: CT Sex: M C Admitted: Reason For Study Reason For Study: BLE Edema RIGHT LEFT GSV is normal. GSV is normal. CFV is compressible, spontaneous, phasic, competent CFV is compressible, spontaneous, phasic, competent, and demonstrates normal augmentation. and demonstrates normal augmentation. FV is compressible, spontaneous, phasic, competent FV is compressible, spontaneous, phasic, competent and demonstrates normal augmentation. and demonstrates normal augmentation. POP V is compressible, spontaneous, phasic, competent POP V is compressible, spontaneous, phasic, competent and demonstrates normal augmentation. and demonstrates normal augmentation. T/P Trunk is compressible. T/P Trunk is compressible. PTV is compressible. PTV is compressible. RT PerV is compressible. LT PerV is compressible. Procedure This is a venous duplex using B-mode, color flow and spectral Doppler. Exam performed in department. The exam was diagnostic. VL/Venous Duplex US - Lesly Extrem Interpretation Summary Deep veins of the lower extremities are bilaterally patent and compressible segmentally. There is no evidence of deep vein thrombosis on either side. Valvular competence appears intact within the proximal deep venous systems bilaterally. The great saphenous veins appear bilaterally patent and compressible segmentally. ___ Ordering Physician: Marjan Rasmussen V Referring Physician: Armando Kohli Performed By: Mark Peña, RVT 01/27/252017 Date _ Gt Garcia MD CC: Dr. Armando Kohli MD; Dr. Marjan Rasmussen MD ~ Date Dictated: 01/27/25955 Date Transcribed: 01/27/252017 [employer] Coach: Signed [facility] Other Phone: White blood cell (WBC) count Ordered By: Marjan Rasmussen on 01-27-2025 WBC (Bld) [#/Vol] 10.8 10*3/uL 4.4-11.0 [facility] Testosterone, Total / Freeon 01-15-2025 TESTOSTER,FREE 9.22 ng/dL Normal 5.00-21.00 [facility] Comment on above: Order Comment: Y Performed By: #### L 501.9520, L3100.5055, L506.0400, L3100.5310 ####[facility] [address] [place], [place], [id number] TESTOSTER,TOTAL 216 ng/dL Low 264-916 [facility] Comment on above: Order Comment: Y Result Comment: Adul t male reference interval is based on a population ofhealthy nonobese males (BMI <30) between 19 and 39 yearsold. Dank et.al. JCEM 2017,102;2370-8683. PMID:05778080. Performed By: #### L 501.9520, L3100.5055, L506.0400, L3100.5310 ####[facility] [address] [place], [place], [address] TESTOSTERONE,%F 4.27 High 1.50-4.20 [facility] Comment on above: Order Comment: Y Result Comment: Perf ormed at: - [facility] [address] [id number] Director: Petr Arzola PhD, Phone: [phone] at: - [facility] [address] [id number] Director: Cyrus Johnson MD, Phone: [phone] Performed By: #### L 501.9520, L3100.5055, L506.0400, L3100.5310 ####[facility] [address] [place], [place], [id number] Chest without Contraston Chest without Contrast Normal [facility] FSH and LHon 01-11-2025 FSH 10.0 mIU/mL Normal [facility] Comment on above: Result Comment: FEMA LE:Follicular: 1.4 - 18.1 mIU/mLMidcycle: 3.4 - 33.4 mIU/mLLuteal: 1.5 - 9.1 mIU/mLPost Menopause: 23.0 - 116.3 mIU/mLMALE: 1.4 - 18.1 mIU/mL Performed By: #### L 501.9520, L3100.5055, L506.0400, L3100.5310 ####[facility] [address] [place], [place], [id number] LH 8.4 mIU/mL Normal [facility] Comment on above: Result Comment: FEMA LE:Follicular: 1.9-12.5 mIU/mLMidcycle: 8.7-76.3 mIU/mLLuteal: 0.5-16.9 mIU/mLPost Menopause: 15.9-54.0 mIU/mLMALE:20-70 Years: 1.5-9.3 mIU/mL>70 Years: 3.1-34.6 mIU/mL Performed By: #### L 501.9520, L3100.5055, L506.0400, L3100.5310 ####[facility] [address] [place], [place], [id number] Free testosterone percentage Ordered By: Maxwell Torres on 07-28-2025 Testosterone Free/Testosterone.total [Mass fraction] 4.27 % High 1.50-4.20 [facility] Comment on above: Performed at: CB - [facility] [address] [id number] Director: Petr Arzola PhD, Phone: [phone] at: [facility] [id number] Director: Cyrus Johnson MD, Phone: [phone] LH ser/plasOrdered By: Maxwell Torres on 01-11-2025 Lutropin Qn 8.4 m[IU]/mL [facility] Comment on above: FEMALE:Follicular: 1 .9-12.5 mIU/mLMidcycle: 8.7-76.3 mIU/mLLuteal: 0.5-16.9 mIU/mLPost Menopause: 15.9-54.0 mIU/mLMALE:20-70 Years: 1.5-9.3 mIU/mL>70 Years: 3.1-34.6 mIU/mL No Panel Informationon 01-11 IMPRESSION: 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 Grade 1 spondylolisthesis at L5-S1. No evidence of instability with flexion and extension. Scoliotic curvature of the lumbar spine. No pelvic tilt. OLOGY EXAM: XR SPINE SCOLI OSIS 2-3 VIEWS, XR SPINE LUMBAR 4+ VIEWS, 01/11/2025 14:00 PM (accession [id number]), 01/11/2025 14:01 PM (accession [id number]) COMPARISON: Lumbar spine radiographs July 31, 2018. Scoliosis study July 02, 2012. CLINICAL INDICATIONS: scoli eval RELEVANT CLINICAL HISTORY: M54.16:Lumbar radiculopathy FINDINGS: Lumbar spine: 6 images obtained including flexion and extension lateral views. Vertebral: 5 lumbar vertebral bodies. Posterior fusion hardware L3-S1 redemonstrated. Hardware appears stable with a fracture of the right-sided dhruv just above the L5 set screw. Grade 1 anterolisthesis L5 on S1 is stable with flexion and extension. No compression fracture. Disc: Disc space narrowing and endplate osteophytes at multiple levels. Joint: Facet joints are anatomically aligned. Scoliosis study: 8 images obtained. Thoracolumbar spine: 12 rib-bearing thoracic vertebral bodies and 5 subsequent lumbar vertebral bodies. 14 degree levoconvex scoliotic curvature of the lumbar spine measured from the superior plate of T11 to the inferior endplate of L3. Pelvic Tilt: There is no pelvic tilt. RADIOLOGY Les No MD - 01/11/2025 EXAM: XR SPINE SCOLIOSIS 2-3 VIEWS, XR SPINE LUMBAR 4+ VIEWS, 01/11/2025 14:00 PM (accession [id number]), 01/11/2025 14:01 PM (accession [id number]) COMPARISON: Lumbar spine radiographs July 31, 2018. Scoliosis study July 02, 2012. CLINICAL INDICATIONS: scoli eval RELEVANT CLINICAL HISTORY: M54.16:Lumbar radiculopathy FINDINGS: Lumbar spine: 6 images obtained including flexion and extension lateral views. Vertebral: 5 lumbar vertebral bodies. Posterior fusion hardware L3-S1 redemonstrated. Hardware appears stable with a fracture of the right-sided dhruv just above the L5 set screw. Grade 1 anterolisthesis L5 on S1 is stable with flexion and extension. No compression fracture. Disc: Disc space narrowing and endplate osteophytes at multiple levels. Joint: Facet joints are anatomically aligned. Scoliosis study: 8 images obtained. Thoracolumbar spine: 12 rib-bearing thoracic vertebral bodies and 5 subsequent lumbar vertebral bodies. 14 degree levoconvex scoliotic curvature of the lumbar spine measured from the superior plate of T11 to the inferior endplate of L3. Pelvic Tilt: There is no pelvic tilt. 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 Grade 1 spondylolisthesis at L5-S1. No evidence of instability with flexion and extension. Scoliotic curvature of the lumbar spine. No pelvic tilt. [facility] No Panel InformationOrdered By: Les No on 01-11-2025 [facility] Work Phone: Serum or plasma free testost erone measurement (mass/volume)Ordered By: Maxwell Tysonrenata on 01-11-2025 Testosterone Free [Mass/Vol] 9.22 ng/dL 5.00-21.00 [facility] T4 Free Directon 01-11-2025 T4 FREE DIRECT 1.20 ng/dL Normal 0.76-1.46 [facility] Comment on above: Order Comment: Y Performed By: #### L 501.9520, L3100.5055, L506.0400, L3100.5310 ####[facility] [address] [place], [place], [address] T4 freeOrdered By: Maxwell Viera joshua on 01-11-2025 Free T4 [Mass/Vol] 1.20 ng/dL 0.76-1.46 [facility] TSH DL <= 0.005 mIU/L QnOrde red By: Maxwell Torres on 01-11-2025 TSH Qn 3.710 uIU/mL 0.300-4.20 0 [facility] Testosterone, totalOrdered B y: Maxwell Tysonrenata on 01-11-2025 Testosterone [Mass/Vol] 216 ng/dL Low 264-916 [facility] Comment on above: Adult male reference interval is based on a population ofhealthy nonobese males (BMI <30) between 19 and 39 yearsold. shanice Weems.al. JCEM 2017,102;4759-0398. PMID:12707005. Thyroid Stim Hormone (TSH)on 01-11-2025 TSH 3.710 uIU/mL Normal 0.300-4.20 0 [facility] Comment on above: Performed By: #### L 501.9520, L3100.5055, L506.0400, L3100.5310 ####[facility] [address] [place], [place], [id number] XR SPINE LUMBAR 4+ VIEWSon 0 01-11-2025 XR SPINE LUMBAR 4+ VIEWS EXAM: XR SPINE SCOLIOSIS 2-3 VIEWS, XR SPINE LUMBAR 4+ VIEWS, 01/11/2025 14:00 PM (accession [id number]), 01/11/2025 14:01 PM (accession [id number]) COMPARISON: Lumbar spine radiographs July 31, 2018. Scoliosis study July 02, 2012. CLINICAL INDICATIONS: scoli eval RELEVANT CLINICAL HISTORY: M54.16:Lumbar radiculopathy FINDINGS: Lumbar spine: 6 images obtained including flexion and extension lateral views. Vertebral: 5 lumbar vertebral bodies. Posterior fusion hardware L3-S1 redemonstrated. Hardware appears stable with a fracture of the right-sided dhruv just above the L5 set screw. Grade 1 anterolisthesis L5 on S1 is stable with flexion and extension. No compression fracture. Disc: Disc space narrowing and endplate osteophytes at multiple levels. Joint: Facet joints are anatomically aligned. Scoliosis study: 8 images obtained. Thoracolumbar spine: 12 rib-bearing thoracic vertebral bodies and 5 subsequent lumbar vertebral bodies. 14 degree levoconvex scoliotic curvature of the lumbar spine measured from the superior plate of T11 to the inferior endplate of L3. Pelvic Tilt: There is no pelvic tilt. IMPRESSION: 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 Grade 1 spondylolisthesis at L5-S1. No evidence of instability with flexion and extension. Scoliotic curvature of the lumbar spine. No pelvic tilt. [facility] XR SPINE SCOLIOSIS 2-3 VIEWS on 01-11-2025 XR SPINE SCOLIOSIS 2-3 VIEWS EXAM: XR SPINE SCOLIOSIS 2-3 VIEWS, XR SPINE LUMBAR 4+ VIEWS, 01/11/2025 14:00 PM (accession [id number]), 01/11/2025 14:01 PM (accession [id number]) COMPARISON: Lumbar spine radiographs July 31, 2018. Scoliosis study July 02, 2012. CLINICAL INDICATIONS: scoli eval RELEVANT CLINICAL HISTORY: M54.16:Lumbar radiculopathy FINDINGS: Lumbar spine: 6 images obtained including flexion and extension lateral views. Vertebral: 5 lumbar vertebral bodies. Posterior fusion hardware L3-S1 redemonstrated. Hardware appears stable with a fracture of the right-sided dhruv just above the L5 set screw. Grade 1 anterolisthesis L5 on S1 is stable with flexion and extension. No compression fracture. Disc: Disc space narrowing and endplate osteophytes at multiple levels. Joint: Facet joints are anatomically aligned. Scoliosis study: 8 images obtained. Thoracolumbar spine: 12 rib-bearing thoracic vertebral bodies and 5 subsequent lumbar vertebral bodies. 14 degree levoconvex scoliotic curvature of the lumbar spine measured from the superior plate of T11 to the inferior endplate of L3. Pelvic Tilt: There is no pelvic tilt. IMPRESSION: 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 Grade 1 spondylolisthesis at L5-S1. No evidence of instability with flexion and extension. Scoliotic curvature of the lumbar spine. No pelvic tilt. Normal [facility] XR Spine Lumbar and Sacrum 5 Viewson 01-11-2025 Radiology Study observation (narrative) [facility] XR Thoracic and lumbar spine Views for scoliosison 01-11-2025 Radiology Study observation (narrative) [facility] Absolute lymphocyte countOrd ered By: Maxwell Torres on 12-31-2024 Lymphocytes Auto (Unsp spec) [#/Vol] 2.41 10*3/uL 0.83-4.51 [facility] Absolute neutrophil countOrd ered By: Maxwell Torres on 12-31-2024 Neutrophils (Bld) [#/Vol] 6.6 10*3/uL 2.0-7.7 [facility] Anion gap in Serum or Plasma Ordered By: Maxwell Torres on 12-31-2024 Anion gap [Moles/Vol] 12 mmol/L 5-15 [facility] Automated lymphocyte count a s percentage of total leukocytesOrdered By: Maxwell Torres on 12-31-2024 Lymphocytes/100 WBC Auto (Unsp spec) 24.1 % 19-41 [facility] BUN/creatinine ratioOrdered By: Maxwell Torres on 12-31-2024 Urea nitrogen/Creatinine [Mass ratio] 14.1 mg/mg 10-20 [facility] Basophil percentageOrdered B y: Maxwell Torres on 12-31-2024 Basophils/100 WBC (Bld) 0.2 % 0-1 [facility] Bilirubin directOrdered By: Maxwell Torres on 12-31-2024 Bilirubin.direct [Mass/Vol] 0.23 mg/dL 0.00-0.30 [facility] Bilirubin, Directon 01-01-20 Bilirubin.direct [Mass/Vol] 0.23 mg/dL Normal 0.00-0.30 [facility] Comment on above: Order Comment: HAYES Crow SEND ALL RESULTS TO DR. ARMANDO KOHLI, DR. SAMUEL AND DR. MAXWELL TORRES. Performed By: #### L 500.4100, L501.9520, L509.3001, L001.0705, L502.0250, L501.4700, L501.9985, L100.0100, L503.0106, L500.4050 ####[facility] [address] [place], [place], [phone] Bilirubin, totalOrdered By: Maxwell Torres on 12-31-2024 Bilirubin [Mass/Vol] 0.43 mg/dL 0.00-1.30 [facility] CBC W/Diff, Automatedon 12-15 Absolute Lymph 2.41 X10 3/uL Normal 0.83-4.51 [facility] Comment on above: Order Comment: [facility] Mignon SEND ALL RESULTS TO DR. ARMANDO KOHLI, DR. SAMUEL AND DR. MAXWELL TORRES. Performed By: #### L 500.4100, L501.9520, L509.3001, L001.0705, L502.0250, L501.4700, L501.9985, L100.0100, L503.0106, L500.4050 ####[facility] [address] [place], [place], [phone] Absolute Neut 6.6 X10 3/uL Normal 2.0-7.7 [facility] Comment on above: Order Comment: [facility] SEND ALL RESULTS TO DR. ARMANDO KOHLI, DR. SAMUEL AND DR. MAXWELL TORRES. Performed By: #### L 500.4100, L501.9520, L509.3001, L001.0705, L502.0250, L501.4700, L501.9985, L100.0100, L503.0106, L500.4050 ####[facility] [address] [place], [address] Basophils/100 WBC (Bld) 0.2 % Normal 0-1 [facility] Comment on above: Order Comment: HAYES Crow SEND ALL RESULTS TO DR. ARMANDO KOHLI, DR. SAMUEL AND DR. MAXWELL TORRES. Performed By: #### L 500.4100, L501.9520, L509.3001, L001.0705, L502.0250, L501.4700, L501.9985, L100.0100, L503.0106, L500.4050 ####[facility] [address] [place], [address] Eosinophils/100 WBC (Bld) 0.8 % Normal 0-5 [facility] Comment on above: Order Comment: HAYES Crow SEND ALL RESULTS TO DR. ARMANDO KOHLI, DR. SAMUEL AND DR. MAXWELL TORRES. Performed By: #### L 500.4100, L501.9520, L509.3001, L001.0705, L502.0250, L501.4700, L501.9985, L100.0100, L503.0106, L500.4050 ####[facility] [address] [place], [address] Erythrocyte distribution width (RBC) [Ratio] 14.8 % High 11.6-14.6 [facility] Comment on above: Order Comment: [facility] SEND ALL RESULTS TO DR. ARMANDO KOHLI, DR. SAMUEL AND DR. MAXWELL TORRES. Performed By: #### L 500.4100, L501.9520, L509.3001, L001.0705, L502.0250, L501.4700, L501.9985, L100.0100, L503.0106, L500.4050 ####[facility] [address] [place], [address] Hematocrit (Bld) [Volume fraction] 42.2 % Normal 40-54 [facility] Comment on above: Order Comment: [facility] SEND ALL RESULTS TO DR. ARMANDO KOHLI, DR. SAMUEL AND DR. MAXWELL TORRES. Performed By: #### L 500.4100, L501.9520, L509.3001, L001.0705, L502.0250, L501.4700, L501.9985, L100.0100, L503.0106, L500.4050 ####[facility] [address] [place], [address] Hemoglobin (Bld) [Mass/Vol] 13.9 g/dL Normal 13.0-16.5 [facility] Comment on above: Order Comment: [facility] SEND ALL RESULTS TO DR. ARMANDO KOHLI, DR. SAMUEL AND DR. MAXWELL TORRES. Performed By: #### L 500.4100, L501.9520, L509.3001, L001.0705, L502.0250, L501.4700, L501.9985, L100.0100, L503.0106, L500.4050 ####[facility] [address] [place], [address] IG% 1.000 High 0.0-0.9 [facility] Comment on above: Order Comment: [facility] E SEND ALL RESULTS TO DR. ARMANDO KOHLI, DR. SAMUEL AND DR. MAXWELL TORRES. Result Comment: IG% - Immature Granulocytes (promyelocytes, myelocytes andmetamyelocytes) > 1% indicates that a LEFT SHIFT is Present. Performed By: #### L 500.4100, L501.9520, L509.3001, L001.0705, L502.0250, L501.4700, L501.9985, L100.0100, L503.0106, L500.4050 ####[facility] [address] [place], [address] Lymphocytes/100 WBC (Bld) 24.1 % Normal 19-41 [facility] Comment on above: Order Comment: [facility] SEND ALL RESULTS TO DR. ARMANDO KOHLI, DR. SAMUEL AND DR. MAXWELL TORRES. Performed By: #### L 500.4100, L501.9520, L509.3001, L001.0705, L502.0250, L501.4700, L501.9985, L100.0100, L503.0106, L500.4050 ####[facility] [address] [place], [address] MCH (RBC) [Entitic mass] 31.6 pg Normal 27.0-32.0 [facility] Comment on above: Order Comment: [facility] SEND ALL RESULTS TO DR. ARMANDO KOHLI, DR. SAMUEL AND DR. MAXWELL TORRES. Performed By: #### L 500.4100, L501.9520, L509.3001, L001.0705, L502.0250, L501.4700, L501.9985, L100.0100, L503.0106, L500.4050 ####[facility] [address] [place], [address] MCHC (RBC) [Mass/Vol] 32.9 g/dL Normal 32-36 [facility] Comment on above: Order Comment: [facility] E SEND ALL RESULTS TO DR. ARMANDO KOHLI, DR. SAMUEL AND DR. MAXWELL TORRES. Performed By: #### L 500.4100, L501.9520, L509.3001, L001.0705, L502.0250, L501.4700, L501.9985, L100.0100, L503.0106, L500.4050 ####[facility] [address] [place], [address] MCV (RBC) [Entitic vol] 95.9 fL High 80-94 [facility] Comment on above: Order Comment: PLE[facility]WARD E SEND ALL RESULTS TO DR. ARMANDO KOHLI, DR. SAMUEL AND DR. MAXWELL TORRES. Performed By: #### L 500.4100, L501.9520, L509.3001, L001.0705, L502.0250, L501.4700, L501.9985, L100.0100, L503.0106, L500.4050 ####[facility] [address] [place], [address] Monocytes/100 WBC (Bld) 7.7 % Normal 0-10 [facility] Comment on above: Order Comment: PLEAS E SEND ALL RESULTS TO DR. ARMANDO KOHLI, DR. SAMUEL AND DR. MAXWELL TORRES. Performed By: #### L 500.4100, L501.9520, L509.3001, L001.0705, L502.0250, L501.4700, L501.9985, L100.0100, L503.0106, L500.4050 ####[facility] [address] [place], [address] Neutrophils/100 WBC (Bld) 66.2 % Normal 47-70 [facility] Comment on above: Order Comment: PLEAS E SEND ALL RESULTS TO DR. ARMANDO KOHLI, DR. SAMUEL AND DR. MAXWELL TORRES. Performed By: #### L 500.4100, L501.9520, L509.3001, L001.0705, L502.0250, L501.4700, L501.9985, L100.0100, L503.0106, L500.4050 ####[facility] [address] [place], [address] Nucleated RBC (Bld) [#/Vol] 0 10*3/uL Normal 0-5 [facility] Comment on above: Order Comment: PLEAS E SEND ALL RESULTS TO DR. ARMANDO KOHLI, DR. SAMUEL AND DR. MAXWELL TORRES. Performed By: #### L 500.4100, L501.9520, L509.3001, L001.0705, L502.0250, L501.4700, L501.9985, L100.0100, L503.0106, L500.4050 ####[facility] [address] [place], [address] Platelet mean volume (Bld) [Entitic vol] 10.2 fL Normal 6.2-12.0 [facility] Comment on above: Order Comment: PLEAS E SEND ALL RESULTS TO DR. ARMANDO KOHLI, DR. SAMUEL AND DR. MAXWELL TORRES. Performed By: #### L 500.4100, L501.9520, L509.3001, L001.0705, L502.0250, L501.4700, L501.9985, L100.0100, L503.0106, L500.4050 ####[facility] [address] [place], [address] Platelets (Bld) [#/Vol] 178 10*3/uL Normal 150-450 [facility] Comment on above: Order Comment: PLEAS E SEND ALL RESULTS TO DR. ARMANDO KOHLI, DR. SAMUEL AND DR. MAXWELL TORRES. Performed By: #### L 500.4100, L501.9520, L509.3001, L001.0705, L502.0250, L501.4700, L501.9985, L100.0100, L503.0106, L500.4050 ####[facility] [address] [place], [address] RBC (Bld) [#/Vol] 4.40 10*6/uL Low 4.6-6.2 [facility] Comment on above: Order Comment: PLEAS E SEND ALL RESULTS TO DR. ARMANDO KOHLI, DR. SAMUEL AND DR. MAXWELL TORRES. Performed By: #### L 500.4100, L501.9520, L509.3001, L001.0705, L502.0250, L501.4700, L501.9985, L100.0100, L503.0106, L500.4050 ####[facility] [address] [place], [place], [id number] RDW SD 52.6 fl High 35.1-43.9 [facility] Comment on above: Order Comment: HAYES Crow SEND ALL RESULTS TO DR. ARMANDO KOHLI, DR. SAMUEL AND DR. MAXWELL TORRES. Performed By: #### L 500.4100, L501.9520, L509.3001, L001.0705, L502.0250, L501.4700, L501.9985, L100.0100, L503.0106, L500.4050 ####[facility] [address] [place], [place], [id number] WBC (Bld) [#/Vol] 10.0 10*3/uL Normal 4.4-11.0 [facility] Comment on above: Order Comment: HAYES Crow SEND ALL RESULTS TO DR. ARMANDO KOHLI, DR. SAMUEL AND DR. MAXWELL TORRES. Performed By: #### L 500.4100, L501.9520, L509.3001, L001.0705, L502.0250, L501.4700, L501.9985, L100.0100, L503.0106, L500.4050 ####[facility] [address] [place], [place], [id number] Calculated very low density lipoprotein (VLDL) cholesterol measurementOrdered By: Maxwell Torres on 12-31-2024 Calculated very low density lipoprotein (VLDL) cholesterol measurement 31 mg/dL 5-40 [facility] Carbon dioxide, total [Moles /volume] in Central venous bloodOrdered By: Maxwell Torres on 12-31-2024 CO2 [Moles/Vol] 25.5 mmol/L 21.0-32.0 [facility] Chloride assayOrdered By: Randell Torres on 12-31-2024 Chloride [Moles/Vol] 102 mmol/L 98-108 [facility] Comprehensive Metabolic Prof ilon 12-31-2024 Albumin [Mass/Vol] 3.4 g/dL Normal 3.4-4.8 [facility] Comment on above: Order Comment: HAYES Crow SEND ALL RESULTS TO DR. ARMANDO KOHLI, DR. SAMUEL AND DR. MAXWELL TORRES. Performed By: #### L 500.4100, L501.9520, L509.3001, L001.0705, L502.0250, L501.4700, L501.9985, L100.0100, L503.0106, L500.4050 ####[facility] [address] [place], [address] ALK PHOS 48 U/L Normal 40-129 [facility] Comment on above: Order Comment: HAYES Crow SEND ALL RESULTS TO DR. ARMANDO KOHLI, DR. SAMUEL AND DR. MAXWELL TORRES. Performed By: #### L 500.4100, L501.9520, L509.3001, L001.0705, L502.0250, L501.4700, L501.9985, L100.0100, L503.0106, L500.4050 ####[facility] [address] [place], [address] ALT [Catalytic activity/Vol] 30 U/L Normal <=46 [facility] Comment on above: Order Comment: HAYES Crow SEND ALL RESULTS TO DR. ARMANDO KOHLI, DR. SAMUEL AND DR. MAXWELL TORRES. Performed By: #### L 500.4100, L501.9520, L509.3001, L001.0705, L502.0250, L501.4700, L501.9985, L100.0100, L503.0106, L500.4050 ####[facility] [address] [place], [address] AST [Catalytic activity/Vol] 18 U/L Normal <=37 [facility] Comment on above: Order Comment: HAYES Crow SEND ALL RESULTS TO DR. ARMANDO KOHLI, DR. SAMUEL AND DR. MAXWELL TORRES. Performed By: #### L 500.4100, L501.9520, L509.3001, L001.0705, L502.0250, L501.4700, L501.9985, L100.0100, L503.0106, L500.4050 ####[facility] [address] [place], [address] Bilirubin [Mass/Vol] 0.43 mg/dL Normal 0.00-1.30 [facility] Comment on above: Order Comment: [facility] E SEND ALL RESULTS TO DR. ARMANDO KOHLI, DR. SAMUEL AND DR. MAXWELL TORRES. Performed By: #### L 500.4100, L501.9520, L509.3001, L001.0705, L502.0250, L501.4700, L501.9985, L100.0100, L503.0106, L500.4050 ####[facility] [address] [place], [address] BUN/CRE 14.1 RATIO Normal 10-20 [facility] Comment on above: Order Comment: [facility] E SEND ALL RESULTS TO DR. ARMANDO KOHLI, DR. SAMUEL AND DR. MAXWELL TORRES. Performed By: #### L 500.4100, L501.9520, L509.3001, L001.0705, L502.0250, L501.4700, L501.9985, L100.0100, L503.0106, L500.4050 ####[facility] [address] [place], [address] Calcium [Mass/Vol] 9.4 mg/dL Normal 7.6-11.0 [facility] Comment on above: Order Comment: [facility] SEND ALL RESULTS TO DR. ARMANDO KOHLI, DR. SAMUEL AND DR. MAXWELL TORRES. Performed By: #### L 500.4100, L501.9520, L509.3001, L001.0705, L502.0250, L501.4700, L501.9985, L100.0100, L503.0106, L500.4050 ####[facility] [address] [place], [address] Chloride [Moles/Vol] 102 mmol/L Normal 98-108 [facility] Comment on above: Order Comment: PLEAS E SEND ALL RESULTS TO DR. ARMANDO KOHLI, DR. SAMUEL AND DR. MAXWELL TORRES. Performed By: #### L 500.4100, L501.9520, L509.3001, L001.0705, L502.0250, L501.4700, L501.9985, L100.0100, L503.0106, L500.4050 ####[facility] [address] [place], [address] CO2 [Moles/Vol] 25.5 mmol/L Normal 21.0-32.0 [facility] Comment on above: Order Comment: PLEAS E SEND ALL RESULTS TO DR. ARMANDO KOHLI, DR. SAMUEL AND DR. MAXWELL TORRES. Performed By: #### L 500.4100, L501.9520, L509.3001, L001.0705, L502.0250, L501.4700, L501.9985, L100.0100, L503.0106, L500.4050 ####[facility] [address] [place], [address] Creatinine [Mass/Vol] 1.13 mg/dL Normal 0.70-1.20 [facility] Comment on above: Order Comment: PLEAS E SEND ALL RESULTS TO DR. ARMANDO KOHLI, DR. SAMUEL AND DR. MAXWELL TORRES. Performed By: #### L 500.4100, L501.9520, L509.3001, L001.0705, L502.0250, L501.4700, L501.9985, L100.0100, L503.0106, L500.4050 ####[facility] [address] [place], [address] GAP 12 Normal 5-15 [facility] Comment on above: Order Comment: HAYES Crow SEND ALL RESULTS TO DR. ARMANDO KOHLI, DR. SAMUEL AND DR. MAXWELL TORRES. Performed By: #### L 500.4100, L501.9520, L509.3001, L001.0705, L502.0250, L501.4700, L501.9985, L100.0100, L503.0106, L500.4050 ####[facility] [address] [place], [place], [phone] GFR/1.73 sq M.predicted among non-blacks MDRD (S/P/Bld) [Vol rate/Area] 68 mL/min/{1.73_m2} Normal >60 [facility] Comment on above: Order Comment: HAYES Crow SEND ALL RESULTS TO DR. ARMANDO KOHLI, DR. SAMUEL AND DR. MAXWELL TORRES. Result Comment: mL/m in/1.73m2 CKD-EPI Creatinine Equation (2020) Performed By: #### L 500.4100, L501.9520, L509.3001, L001.0705, L502.0250, L501.4700, L501.9985, L100.0100, L503.0106, L500.4050 ####[facility] [address] [place], [address] Glucose [Mass/Vol] 78 mg/dL Normal 70-99 [facility] Comment on above: Order Comment: HAYES Crow SEND ALL RESULTS TO DR. ARMANDO KOHLI, DR. SAMUEL AND DR. MAXWELL TORRES. Performed By: #### L 500.4100, L501.9520, L509.3001, L001.0705, L502.0250, L501.4700, L501.9985, L100.0100, L503.0106, L500.4050 ####[facility] [address] [place], [address] Potassium [Moles/Vol] 3.7 mmol/L Normal 3.3-5.1 [facility] Comment on above: Order Comment: HAYES Crow SEND ALL RESULTS TO DR. ARMANDO KOHLI, DR. SAMUEL AND DR. MAXWELL TORRES. Performed By: #### L 500.4100, L501.9520, L509.3001, L001.0705, L502.0250, L501.4700, L501.9985, L100.0100, L503.0106, L500.4050 ####[facility] [address] [place], [address] Sodium [Moles/Vol] 139 mmol/L Normal 133-145 [facility] Comment on above: Order Comment: HAYES Crow SEND ALL RESULTS TO DR. ARMANDO KOHLI, DR. SAMUEL AND DR. MAXWELL TORRES. Performed By: #### L 500.4100, L501.9520, L509.3001, L001.0705, L502.0250, L501.4700, L501.9985, L100.0100, L503.0106, L500.4050 ####[facility] [address] [place], [address] Urea nitrogen [Mass/Vol] 16 mg/dL Normal 4-19 [facility] Comment on above: Order Comment: HAYES Crow SEND ALL RESULTS TO DR. ARMANDO KOHLI, DR. SAMUEL AND DR. MAXWELL TORRES. Performed By: #### L 500.4100, L501.9520, L509.3001, L001.0705, L502.0250, L501.4700, L501.9985, L100.0100, L503.0106, L500.4050 ####[facility] [address] [place], [address] Eosinophil percentageOrdered By: Maxwell Torres on 12-31-2024 Eosinophils/100 WBC (Bld) 0.8 % 0-5 [facility] Erythrocyte distribution wid th ratioOrdered By: Maxwell Torres on 12-31-2024 Erythrocyte distribution width (RBC) [Ratio] 14.8 % High 11.6-14.6 [facility] Erythrocyte distribution wid th standard deviationOrdered By: Maxwell Torres on 12-31-2024 Erythrocyte distribution width (RBC) [Ratio] 52.6 fl High 35.1-43.9 [facility] Glomerular filtration rate ( GFR) estimation/1.73 sq m using serum, plasma, or whole bOrdered By: Maxwell Torres on 12-31-2024 GFR/1.73 sq M.predicted among non-blacks MDRD (S/P/Bld) [Vol rate/Area] 68 mL/min/{1.73_m2} >60 [facility] Comment on above: mL/min/1.73m2 CKD-EP I Creatinine Equation (2020) Hematocrit Auto (Bld) [Volum e fraction]Ordered By: Maxwell Torres on 12-31-2024 Hematocrit (Bld) [Volume fraction] 42.2 % 40-54 [facility] Hemoglobin A1con 12-31-2024 HbA1c (Bld) [Mass fraction] 8.1 % High <=5.6 [facility] Comment on above: Order Comment: HAYES Crow SEND ALL RESULTS TO DR. ARMANDO KOHLI, DR. SAMUEL AND DR. MAXWELL TORRES. Result Comment: Norm al < 5.7 % Prediabetic 5.7 - 6.4 % Diabetic >or= 6.5 % Please note range changes. Performed By: #### L 500.4100, L501.9520, L509.3001, L001.0705, L502.0250, L501.4700, L501.9985, L100.0100, L503.0106, L500.4050 ####[facility] [address] [place], [address] Hemoglobin A1c percentageOrd ered By: Maxwell Torres on 12-31-2024 HbA1c (Bld) [Mass fraction] 8.1 % High <5.7 [facility] Comment on above: Normal < 5.7 % Predi abetic 5.7 - 6.4 % Diabetic >or= 6.5 % Please note range changes. Hemoglobin measurementOrdere d By: Maxwell Torres on 12-31-2024 Hemoglobin (Bld) [Mass/Vol] 13.9 g/dL 13.0-16.5 [facility] Immature granulocytes/100 WB C Auto (Bld)Ordered By: Maxwell Torres on 12-31-2024 Immature granulocytes/100 WBC (Bld) 1.000 % High 0.0-0.9 [facility] Comment on above: IG% - Immature Granu locytes (promyelocytes, myelocytes and metamyelocytes) > 1% indicates that a LEFT SHIFT is Present. L509.3001on 12-31-2024 Testosterone [Mass/Vol] 176.00 ng/dL Low 300-720 [facility] Comment on above: Order Comment: HAYES Crow SEND ALL RESULTS TO DR. ARMANDO KOHLI, DR. SAMUEL AND DR. MAXWELL TORRES. Performed By: #### L 500.4100, L501.9520, L509.3001, L001.0705, L502.0250, L501.4700, L501.9985, L100.0100, L503.0106, L500.4050 ####[facility] [address] [place], [address] LDL calc ser/plasOrdered By: Maxwell Torres on 12-31-2024 Cholesterol in LDL [Mass/Vol] 15 mg/dL [facility] Comment on above: Ngpjsrqaqg=285-165 m g/dL & Higher Efln=460 mg/dL or greater Laboratory - Chemistry and C hemistry - challengeOrdered By: Maxwell Torres on 12-31-2024 AST [Catalytic activity/Vol] 18 U/L <38 [facility] Testosterone [Mass/Vol] 176.00 ng/dL Low 300-720 [facility] Lipid Profileon 12-31-2024 CHOL:HDL 1.93 Normal [facility] Comment on above: Order Comment: HAYES Crow SEND ALL RESULTS TO DR. ARMANDO KOHLI, DR. SAMUEL AND DR. MAXWELL TORRES. Performed By: #### L 500.4100, L501.9520, L509.3001, L001.0705, L502.0250, L501.4700, L501.9985, L100.0100, L503.0106, L500.4050 ####[facility] [address] [place], [address] Cholesterol [Mass/Vol] 95 mg/dL Normal <=200 [facility] Comment on above: Order Comment: HAYES Crow SEND ALL RESULTS TO DR. ARMANDO KOHLI, DR. SAMUEL AND DR. MAXWELL TORRES. Result Comment: Chol esterol level, Desirable <200 mg/dLBorderline high cholesterol 200-239 mg/dLHigh cholesterol >=240 mg/dLRecommendations of the NCEP Adult Treatment Panel for thefollowing risk-cutoff thresholds for the [place] Americanpulation. Performed By: #### L 500.4100, L501.9520, L509.3001, L001.0705, L502.0250, L501.4700, L501.9985, L100.0100, L503.0106, L500.4050 ####[facility] [address] [facility] [place], [address] Cholesterol in HDL [Mass/Vol] 50 mg/dL Normal [facility] Comment on above: Order Comment: HAYES Crow SEND ALL RESULTS TO DR. ARMANDO KOHLI, DR. SAMUEL AND DR. MAXWELL TORRES. Result Comment: Sherri onal Cholesterol Education Program (NCEP) guidelines:<40 mg/dL: Low HDL-cholesterol (major risk factor for CHD)>= 60 mg/dL: High HDL-cholesterol (negative risk factor forCHD)HDL-cholesterol is affected by a number of factors, e.g.smoking, exercise, hormones, sex and age. Performed By: #### L 500.4100, L501.9520, L509.3001, L001.0705, L502.0250, L501.4700, L501.9985, L100.0100, L503.0106, L500.4050 ####[facility] [id number] [place], [address] Cholesterol in LDL [Mass/Vol] 15 mg/dL Normal [facility] Comment on above: Order Comment: HAYES Crow SEND ALL RESULTS TO DR. ARMANDO KOHLI, DR. SAMUEL AND DR. MAXWELL TORRES. Result Comment: Bord wfkzif=597-703 mg/dL Higher Thqu=099 mg/dL or greater Performed By: #### L 500.4100, L501.9520, L509.3001, L001.0705, L502.0250, L501.4700, L501.9985, L100.0100, L503.0106, L500.4050 ####[facility] [id number] [place], [address] Cholesterol in VLDL [Mass/Vol] 31 mg/dL Normal 5-40 [facility] Comment on above: Order Comment: HAYES Crow SEND ALL RESULTS TO DR. ARMANDO KOHLI, DR. SAMUEL AND DR. MAXWELL TORRES. Performed By: #### L 500.4100, L501.9520, L509.3001, L001.0705, L502.0250, L501.4700, L501.9985, L100.0100, L503.0106, L500.4050 ####[facility] [id number] [place], [address] Triglyceride [Mass/Vol] 153 mg/dL Normal [facility] Comment on above: Order Comment: HAYES E SEND ALL RESULTS TO DR. ARMANDO KOHLI, DR. SAMUEL AND DR. MAXWELL TORRES. Result Comment: The drugs N-Acetylcysteine and Metamizole may falselydepress this assay.Normal range: <150 mg/dLBorderline High: 150-199 mg/dLHigh: 200-499 mg/dLVery High: >500 mg/dL Performed By: #### L 500.4100, L501.9520, L509.3001, L001.0705, L502.0250, L501.4700, L501.9985, L100.0100, L503.0106, L500.4050 ####[facility] [id number] [place], [address] MCV (mean corpuscular volume ) determinationOrdered By: Maxwell Torres on 12-31-2024 MCV (RBC) [Entitic vol] 95.9 fL High 80-94 [facility] Mean corpuscular hemoglobin (MCH) determinationOrdered By: Maxwell Torres on 12-31-2024 MCH (RBC) [Entitic mass] 31.6 pg 27.0-32.0 [facility] Mean corpuscular hemoglobin concentration (MCHC) determinationOrdered By: Maxwell Torres on 12-31-2024 MCHC (RBC) [Mass/Vol] 32.9 g/dL 32-36 [facility] Mean platelet volume determi nationOrdered By: Maxwell Torres on 12-31-2024 Platelet mean volume (Bld) [Entitic vol] 10.2 fL 6.2-12.0 [facility] Microalb:Creat Ratio,Random URon 12-31-2024 Creatinine [Mass/Vol] 101.00 mg/dL Normal 39.00- 259. 00 [facility] Comment on above: Order Comment: HAYES Crow SEND ALL RESULTS TO DR. ARMANDO KOHLI, DR. SAMUEL AND DR. MAXWELL TORRES. Performed By: #### L 500.4100, L501.9520, L509.3001, L001.0705, L502.0250, L501.4700, L501.9985, L100.0100, L503.0106, L500.4050 ####[facility] [address] [place], [place], [id number] MALB:CREAT UNABLE TO CALCULATE Normal <30 mg/g CRE [facility] Comment on above: Order Comment: PLEEDWARD E SEND ALL RESULTS TO DR. ARMANDO KOHLI, DR. SAMUEL AND DR. MAXWELL TORRES. Performed By: #### L 500.4100, L501.9520, L509.3001, L001.0705, L502.0250, L501.4700, L501.9985, L100.0100, L503.0106, L500.4050 ####[facility] [address] [place], [place], [address] MICROALBUMIN,UR < 12.0 Normal <20 mg/L [facility] Comment on above: Order Comment: HAYES Crow SEND ALL RESULTS TO DR. ARMANDO KOHLI, DR. SAMUEL AND DR. MAXWELL TORRES. Performed By: #### L 500.4100, L501.9520, L509.3001, L001.0705, L502.0250, L501.4700, L501.9985, L100.0100, L503.0106, L500.4050 ####[facility] [address] [place], [place], [id number] Microalbumin/creat ratio urO rdered By: Maxwell Torres on 12-31-2024 Urine microalbumin/creatinine ratio measurement UNABLE TO CALCULATE mg/g CRE <30 [facility] Monocyte percentageOrdered B y: Maxwell Torres on 12-31-2024 Monocytes/100 WBC (Bld) 7.7 % 0-10 [facility] Neutrophil percentageOrdered By: Maxwell Torres on 12-31-2024 Neutrophils/100 WBC (Bld) 66.2 % 47-70 [facility] Nucleated red blood cell per centageOrdered By: Maxwell Torres on 12-31-2024 Nucleated RBC/100 WBC (Bld) [Ratio] 0 % 0-5 [facility] Platelet countOrdered By: Randell Torres on 12-31-2024 Platelets (Bld) [#/Vol] 178 10*3/uL 150-450 [facility] Potassium measurement (mass/ volume)Ordered By: Maxwell Torres on 12-31-2024 Potassium (Unsp spec) [Mass/Vol] 3.7 mmol/L 3.3-5.1 [facility] Protein, Totalon 07-17-2025 Albumin/Globulin [Mass ratio] 1.3 {ratio} Normal 0.9-2.4 [facility] Comment on above: Order Comment: HAYES Crow SEND ALL RESULTS TO DR. ARMANDO KOHLI, DR. SAMUEL AND DR. MAXWELL TORRES. Performed By: #### L 500.4100, L501.9520, L509.3001, L001.0705, L502.0250, L501.4700, L501.9985, L100.0100, L503.0106, L500.4050 ####[facility] [address] [place], [address] Globulin (S) [Mass/Vol] 2.6 g/dL Normal 2.2-4.2 [facility] Comment on above: Order Comment: HAYES Crow SEND ALL RESULTS TO DR. ARMANDO KOHLI, DR. SAMUEL AND DR. MAXWELL TORRES. Performed By: #### L 500.4100, L501.9520, L509.3001, L001.0705, L502.0250, L501.4700, L501.9985, L100.0100, L503.0106, L500.4050 ####[facility] [address] [place], [address] T PROT 6.1 g/dL Normal 5.9-8.4 [facility] Comment on above: Order Comment: HAYES Crow SEND ALL RESULTS TO DR. ARMANDO KOHLI, DR. SAMUEL AND DR. MAXWELL TORRES. Performed By: #### L 500.4100, L501.9520, L509.3001, L001.0705, L502.0250, L501.4700, L501.9985, L100.0100, L503.0106, L500.4050 ####[facility] [address] [place], [address] RBC Auto (Bld) [#/Vol]Ordere d By: Maxwell Torres on 12-31-2024 RBC (Bld) [#/Vol] 4.40 10*6/uL Low 4.6-6.2 [facility] Random urine creatinine meño urement (mass/volume)Ordered By: Maxwell Torres on 12-31-2024 Creatinine Unsp time (U) [Mass/Vol] 101.00 mg/dL 39.00-259. 00 [facility] Screening total cholesterol/ high density lipoprotein (HDL) cholesterol ratioOrdered By: Maxwell Torres on 12-31-2024 Cholesterol.total/Choles terol in HDL [Mass ratio] 1.93 {ratio} [facility] Serum creatinine measurement (mass/volume)Ordered By: Maxwell Torres on 12-31-2024 Creatinine [Mass/Vol] 1.13 mg/dL 0.70-1.20 [facility] Serum globulin measurementOr dered By: Maxwell Torres on 12-31-2024 Globulin (S) [Mass/Vol] 2.6 g/dL 2.2-4.2 [facility] Serum glucose measurement (m ass/volume)Ordered By: Maxwell Torres on 12-31-2024 Glucose [Mass/Vol] 78 mg/dL 70-99 [facility] Serum or plasma alanine gandhi otransferase (ALT) measurementOrdered By: Maxwell Torres on 12-31-2024 ALT [Catalytic activity/Vol] 30 U/L <47 [facility] Serum or plasma albumin meño urement (mass/volume)Ordered By: Maxwell Torres on 12-31-2024 Albumin [Mass/Vol] 3.4 g/dL 3.4-4.8 [facility] Serum or plasma albumin/glob ulin mass ratioOrdered By: Maxwell Torres on 12-31-2024 Albumin/Globulin [Mass ratio] 1.3 {ratio} 0.9-2.4 [facility] Serum or plasma alkaline adam sphatase measurementOrdered By: Maxwell Torres 12-31-2024 ALP [Catalytic activity/Vol] 48 U/L 40-129 [facility] Serum or plasma calcium meño urement (mass/volume)Ordered By: Maxwell Torres on 12-31-2024 Calcium [Mass/Vol] 9.4 mg/dL 7.6-11.0 [facility] Serum or plasma cholesterol in HDL measurement (mass/volume)Ordered By: Maxwell Torres on 12-31-2024 Cholesterol in HDL [Mass/Vol] 50 mg/dL >40 [facility] Comment on above: National Cholesterol Education Program (NCEP) guidelines:<40 mg/dL: Low HDL-cholesterol (major risk factor for CHD)>= 60 mg/dL: High HDL-cholesterol (negative risk factor for CHD)HDL-cholesterol is affected by a number of factors, e.g. smoking, exercise, hormones, sex and age. Serum or plasma cholesterol measurement (mass/volume)Ordered By: Maxwell Torres on 12-31-2024 Cholesterol [Mass/Vol] 95 mg/dL <201 [facility] Comment on above: Cholesterol level, D esirable <200 mg/dLBorderline high cholesterol 200-239 mg/dLHigh cholesterol >=240 mg/dLRecommendations of the NCEP Adult Treatment Panel for the following risk-cutoff thresholds for the [place] population. Serum or plasma urea nitroge n measurement (mass/volume)Ordered By: Maxwell Torres on 12-31-2024 Urea nitrogen [Mass/Vol] 16 mg/dL 4-19 [facility] Sodium levelOrdered By: Bonita Torres on 12-31-2024 Sodium [Moles/Vol] 139 mmol/L 133-145 [facility] TSH DL <= 0.005 mIU/L QnOrde red By: Maxwell Torres on 12-31-2024 TSH Qn 2.840 uIU/mL 0.300-4.20 0 [facility] Thyroid Stim Hormone (TSH)on 12-31-2024 TSH 2.840 uIU/mL Normal 0.300-4.20 0 [facility] Comment on above: Order Comment: HAYES Crow SEND ALL RESULTS TO DR. ARMANDO KOHLI, DR. SAMUEL AND DR. MAXWELL TORRES. Performed By: #### L 500.4100, L501.9520, L509.3001, L001.0705, L502.0250, L501.4700, L501.9985, L100.0100, L503.0106, L500.4050 ####[facility] [address] [place], [place], [id number] Total proteinOrdered By: Adrian Torres on 12-31-2024 Protein [Mass/Vol] 6.1 g/dL 5.9-8.4 [facility] Triglycerides measurementOrd ered By: Maxwell Torres on 12-31-2024 Triglyceride [Mass/Vol] 153 mg/dL <199 [facility] Comment on above: The drugs N-Acetylcy steine and Metamizole may falsely depress this assay. Normal range: <150 mg/dLBorderline High: 150-199 mg/dLHigh: 200-499 mg/dLVery High: >500 mg/dL Urine albumin measurement [facility] detection limit of 20 mg/L or less (mass/volume)Ordered By: Maxwell Torres on 12-31-2024 Albumin DL <= 20 mg/L (U) [Mass/Vol] < 12.0 mg/L <20 mg/L [facility] Vitamin B12on 12-31-2024 Cobalamin (Vitamin B12) [Mass/Vol] 1125 pg/mL High 180-914 [facility] Comment on above: Order Comment: PLEEDWARD E SEND ALL RESULTS TO DR. ARMANDO KOHLI, DR. SAMUEL AND DR. MAXWELL TORRES. Performed By: #### L 500.4100, L501.9520, L509.3001, L001.0705, L502.0250, L501.4700, L501.9985, L100.0100, L503.0106, L500.4050 ####[facility] [address] [place], [address] Vitamin B12 ser/plasOrdered By: Maxwell Torres on 12-31-2024 Cobalamin (Vitamin B12) [Mass/Vol] 1125 pg/mL High 180-914 [facility] White blood cell (WBC) count Ordered By: Maxwell Torres on 12-31-2024 WBC (Bld) [#/Vol] 10.0 10*3/uL 4.4-11.0 [facility] Calculated very low density lipoprotein (VLDL) cholesterol measurementOrdered By: Rylee Singh on 12-11-2024 Calculated very low density lipoprotein (VLDL) cholesterol measurement 27 mg/dL 5-40 [facility] Cardiology Visit Reporton Cardiology Visit Report Normal [facility] L503.7505on 12-11-2024 Natriuretic peptide B (Bld) [Mass/Vol] 192 pg/mL Normal <=900 [facility] Comment on above: Result Comment: Hear t Failure Unlikely: < 300 pg/mLHeart Failure Likely< 50 Years: > 450 pg/mL50-75 Years: > 900 pg/mL>75 Years: > 1800 pg/mL Performed By: #### L 503.7505, L500.4100 ####[facility] [address] [place], [place], [id number] LDL calc ser/plasOrdered By: Rylee Singh on 12-11-2024 Cholesterol in LDL [Mass/Vol] 25 mg/dL [facility] Comment on above: Gfzsghlzdo=394-473 m g/dL & Higher Bucr=136 mg/dL or greater Lipid Profileon 12-11-2024 CHOL:HDL 1.98 Normal [facility] Comment on above: Performed By: #### L 503.7505, L500.4100 ####[facility] [address] [place], [place], [phone] Cholesterol [Mass/Vol] 103 mg/dL Normal <=200 [facility] Comment on above: Result Comment: Chol esterol level, Desirable <200 mg/dLBorderline high cholesterol 200-239 mg/dLHigh cholesterol >=240 mg/dLRecommendations of the NCEP Adult Treatment Panel for thefollowing risk-cutoff thresholds for the [place] American[place]. Performed By: #### L 503.7505, L500.4100 ####[facility] [address] [place], [place], [id number] Cholesterol in HDL [Mass/Vol] 52 mg/dL Normal [facility] Comment on above: Result Comment: Sherri onal Cholesterol Education Program (NCEP) guidelines:<40 mg/dL: Low HDL-cholesterol (major risk factor for CHD)>= 60 mg/dL: High HDL-cholesterol (negative risk factor forCHD)HDL-cholesterol is affected by a number of factors, e.g.smoking, exercise, hormones, sex and age. Performed By: #### L 503.7505, L500.4100 ####[facility] [address] [place], [address] Cholesterol in LDL [Mass/Vol] 25 mg/dL Normal [facility] Comment on above: Result Comment: Bord srcvxq=369-870 mg/dL Higher Iten=506 mg/dL or greater Performed By: #### L 503.7505, L500.4100 ####[facility] [address] [place], [address] Cholesterol in VLDL [Mass/Vol] 27 mg/dL Normal 5-40 [facility] Comment on above: Performed By: #### L 503.7505, L500.4100 ####[facility] [address] [place], [address] Triglyceride [Mass/Vol] 133 mg/dL Normal [facility] Comment on above: Result Comment: The drugs N-Acetylcysteine and Metamizole may falselydepress this assay.Normal range: <150 mg/dLBorderline High: 150-199 mg/dLHigh: 200-499 mg/dLVery High: >500 mg/dL Performed By: #### L 503.7505, L500.4100 ####[facility] [address] [place], [address] Natriuretic peptide.B prohor bharat N-Terminal [Mass/volume] in Serum or PlasmaOrdered By: Rylee Singh on 12-11-2024 Natriuretic peptide.B prohormone N-Terminal [Mass/Vol] 192 pg/mL <900 [facility] Comment on above: Heart Failure Unlike ly: < 300 pg/mLHeart Failure Likely< 50 Years: > 450 pg/mL50-75 Years: > 900 pg/mL>75 Years: > 1800 pg/mL Screening total cholesterol/ high density lipoprotein (HDL) cholesterol ratioOrdered By: Rylee Singh on 12-11-2024 Cholesterol.total/Choles terol in HDL [Mass ratio] 1.98 {ratio} [facility] Serum or plasma cholesterol in HDL measurement (mass/volume)Ordered By: Rylee Singh on 12-11-2024 Cholesterol in HDL [Mass/Vol] 52 mg/dL >40 [facility] Comment on above: National Cholesterol Education Program (NCEP) guidelines:<40 mg/dL: Low HDL-cholesterol (major risk factor for CHD)>= 60 mg/dL: High HDL-cholesterol (negative risk factor for CHD)HDL-cholesterol is affected by a number of factors, e.g. smoking, exercise, hormones, sex and age. Serum or plasma cholesterol measurement (mass/volume)Ordered By: Rylee Singh on 12-11-2024 Cholesterol [Mass/Vol] 103 mg/dL <201 [facility] Comment on above: Cholesterol level, D esirable <200 mg/dLBorderline high cholesterol 200-239 mg/dLHigh cholesterol >=240 mg/dLRecommendations of the NCEP Adult Treatment Panel for the following risk-cutoff thresholds for the [place] population. Triglycerides measurementOrd ered By: Rylee Singh on 12-11-2024 Triglyceride [Mass/Vol] 133 mg/dL <199 [facility] Comment on above: The drugs N-Acetylcy steine and Metamizole may falsely depress this assay. Normal range: <150 mg/dLBorderline High: 150-199 mg/dLHigh: 200-499 mg/dLVery High: >500 mg/dL 12 Lead EKGon 11-29-2024 12 Lead EKG Normal [facility] Absolute lymphocyte countOrd ered By: Kaleb Quiroz on 11-29-2024 Lymphocytes Auto (Unsp spec) [#/Vol] 1.96 10*3/uL 0.83-4.51 [facility] Absolute neutrophil countOrd ered By: Kaleb Quiroz on 11-29-2024 Neutrophils (Bld) [#/Vol] 8.0 10*3/uL High 2.0-7.7 [facility] Anion gap in Serum or Plasma Ordered By: Kaleb Quiroz on 11-29-2024 Anion gap [Moles/Vol] 15 mmol/L 10-29 [facility] Automated lymphocyte count a s percentage of total leukocytesOrdered By: Kaleb Quiroz on 11-29-2024 Lymphocytes/100 WBC Auto (Unsp spec) 17.7 % Low 19- [facility] BUN/creatinine ratioOrdered By: Kaleb Quiroz on 11-29-2024 Urea nitrogen/Creatinine [Mass ratio] 13.1 mg/mg 04-05 [facility] Basic Metabolic Profile (BMP )on 11-29-2024 BUN/CRE 13.1 RATIO Normal 04-05 [facility] Comment on above: Performed By: #### L 501.4021, L500.3400, L500.2500, L501.2450, L100.0100 ####[facility] [address] [place], [address] Calcium [Mass/Vol] 9.7 mg/dL Normal 7.6-11.0 [facility] Comment on above: Performed By: #### L 501.4021, L500.3400, L500.2500, L501.2450, L100.0100 ####[facility] [address] [place], [address] Chloride [Moles/Vol] 102 mmol/L Normal 98-108 [facility] Comment on above: Performed By: #### L 501.4021, L500.3400, L500.2500, L501.2450, L100.0100 ####[facility] [address] [place], [address] CO2 [Moles/Vol] 21.6 mmol/L Normal 21.0-32.0 [facility] Comment on above: Performed By: #### L 501.4021, L500.3400, L500.2500, L501.2450, L100.0100 ####[facility] [address] [place], [address] Creatinine [Mass/Vol] 1.36 mg/dL High 0.70-1.20 [facility] Comment on above: Performed By: #### L 501.4021, L500.3400, L500.2500, L501.2450, L100.0100 ####[facility] [address] [place], [address] ECRCL 48.97 ml/min Low 50-250 [facility] Comment on above: Performed By: #### L 501.4021, L500.3400, L500.2500, L501.2450, L100.0100 ####[facility] [address] [place], [address] GAP 15 Normal 5-15 [facility] Comment on above: Performed By: #### L 501.4021, L500.3400, L500.2500, L501.2450, L100.0100 ####[facility] [address] [place], [address] GFR/1.73 sq M.predicted among non-blacks MDRD (S/P/Bld) [Vol rate/Area] 55 mL/min/{1.73_m2} Low >60 [facility] Comment on above: Result Comment: mL/m in/1.73m2 CKD-EPI Creatinine Equation (2020) Performed By: #### L 501.4021, L500.3400, L500.2500, L501.2450, L100.0100 ####[facility] [address] [place], [address] Glucose [Mass/Vol] 117 mg/dL High 70-99 [facility] Comment on above: Performed By: #### L 501.4021, L500.3400, L500.2500, L501.2450, L100.0100 ####[facility] [address] [place], [address] Potassium [Moles/Vol] 4.9 mmol/L Normal 3.3-5.1 [facility] Comment on above: Result Comment: Hemo lysis present, Results??could be affected.?? Performed By: #### L 501.4021, L500.3400, L500.2500, L501.2450, L100.0100 ####[facility] [address] [place], [address] Sodium [Moles/Vol] 138 mmol/L Normal 133-145 [facility] Comment on above: Performed By: #### L 501.4021, L500.3400, L500.2500, L501.2450, L100.0100 ####[facility] [address] [place], [address] Urea nitrogen [Mass/Vol] 18 mg/dL Normal 4-19 [facility] Comment on above: Performed By: #### L 501.4021, L500.3400, L500.2500, L501.2450, L100.0100 ####[facility] [address] [place], [address] Basophil percentageOrdered B y: Kaleb Quiroz on 11-29-2024 Basophils/100 WBC (Bld) 0.4 % 0-1 [facility] Bilirubin directOrdered By: Kaleb Quiroz on 11-29-2024 Bilirubin.direct [Mass/Vol] 0.17 mg/dL 0.00-0.30 [facility] Comment on above: Hemolysis present, R esults could be affected. Bilirubin, totalOrdered By: Kaleb Quiroz on 11-29-2024 Bilirubin [Mass/Vol] 0.44 mg/dL 0.00-1.30 [facility] CBC W/Diff, Automatedon 11-15 Absolute Lymph 1.96 X10 3/uL Normal 0.83-4.51 [facility] Comment on above: Performed By: #### L 501.4021, L500.3400, L500.2500, L501.2450, L100.0100 ####[facility] [address] [place], [address] Absolute Neut 8.0 X10 3/uL High 2.0-7.7 [facility] Comment on above: Performed By: #### L 501.4021, L500.3400, L500.2500, L501.2450, L100.0100 ####[facility] [address] [place], [address] Basophils/100 WBC (Bld) 0.4 % Normal 0-1 [facility] Comment on above: Performed By: #### L 501.4021, L500.3400, L500.2500, L501.2450, L100.0100 ####[facility] [address] [place], [address] Eosinophils/100 WBC (Bld) 0.5 % Normal 0-5 [facility] Comment on above: Performed By: #### L 501.4021, L500.3400, L500.2500, L501.2450, L100.0100 ####[facility] [address] [place], [address] Erythrocyte distribution width (RBC) [Ratio] 14.9 % High 11.6-14.6 [facility] Comment on above: Performed By: #### L 501.4021, L500.3400, L500.2500, L501.2450, L100.0100 ####[facility] [address] [place], [address] Hematocrit (Bld) [Volume fraction] 47.1 % Normal 40-54 [facility] Comment on above: Performed By: #### L 501.4021, L500.3400, L500.2500, L501.2450, L100.0100 ####[facility] [address] [place], [address] Hemoglobin (Bld) [Mass/Vol] 15.4 g/dL Normal 13.0-16.5 [facility] Comment on above: Performed By: #### L 501.4021, L500.3400, L500.2500, L501.2450, L100.0100 ####[facility] [address] [place], [address] IG% 1.400 High 0.0-0.9 [facility] Comment on above: Result Comment: IG% - Immature Granulocytes (promyelocytes, myelocytes andmetamyelocytes) > 1% indicates that a LEFT SHIFT is Present. Performed By: #### L 501.4021, L500.3400, L500.2500, L501.2450, L100.0100 ####[facility] [address] [place], [address] Lymphocytes/100 WBC (Bld) 17.7 % Low 19-41 [facility] Comment on above: Performed By: #### L 501.4021, L500.3400, L500.2500, L501.2450, L100.0100 ####[facility] [address] [place], [address] MCH (RBC) [Entitic mass] 31.1 pg Normal 27.0-32.0 [facility] Comment on above: Performed By: #### L 501.4021, L500.3400, L500.2500, L501.2450, L100.0100 ####[facility] [address] [place], [address] MCHC (RBC) [Mass/Vol] 32.7 g/dL Normal 32-36 [facility] Comment on above: Performed By: #### L 501.4021, L500.3400, L500.2500, L501.2450, L100.0100 ####[facility] [address] [place], [address] MCV (RBC) [Entitic vol] 95.2 fL High 80-94 [facility] Comment on above: Performed By: #### L 501.4021, L500.3400, L500.2500, L501.2450, L100.0100 ####[facility] [address] [place], [address] Monocytes/100 WBC (Bld) 8.3 % Normal 0-10 [facility] Comment on above: Performed By: #### L 501.4021, L500.3400, L500.2500, L501.2450, L100.0100 ####[facility] [address] [place], [address] Neutrophils/100 WBC (Bld) 71.7 % High 47-70 [facility] Comment on above: Performed By: #### L 501.4021, L500.3400, L500.2500, L501.2450, L100.0100 ####[facility] [address] [place], [address] Nucleated RBC (Bld) [#/Vol] 0.2 10*3/uL Normal 0-5 [facility] Comment on above: Performed By: #### L 501.4021, L500.3400, L500.2500, L501.2450, L100.0100 ####[facility] [address] [place], [address] Platelet mean volume (Bld) [Entitic vol] 10.0 fL Normal 6.2-12.0 [facility] Comment on above: Performed By: #### L 501.4021, L500.3400, L500.2500, L501.2450, L100.0100 ####[facility] [address] [place], [address] Platelets (Bld) [#/Vol] 182 10*3/uL Normal 150-450 [facility] Comment on above: Performed By: #### L 501.4021, L500.3400, L500.2500, L501.2450, L100.0100 ####[facility] [address] [place], [address] RBC (Bld) [#/Vol] 4.95 10*6/uL Normal 4.6-6.2 [facility] Comment on above: Performed By: #### L 501.4021, L500.3400, L500.2500, L501.2450, L100.0100 ####[facility] [address] [place], [address] RDW SD 52.2 fl High 35.1-43.9 [facility] Comment on above: Performed By: #### L 501.4021, L500.3400, L500.2500, L501.2450, L100.0100 ####[facility] [address] [place], [address] WBC (Bld) [#/Vol] 11.1 10*3/uL High 4.4-11.0 [facility] Comment on above: Performed By: #### L 501.4021, L500.3400, L500.2500, L501.2450, L100.0100 ####[facility] [address] [place], [address] Carbon dioxide, total [Moles /volume] in Central venous bloodOrdered By: Kaleb Quiroz on 11-29-2024 CO2 [Moles/Vol] 21.6 mmol/L 21.0-32.0 [facility] Chest 1 View (Portable)on Chest 1 View (Portable) Normal [facility] Chloride assayOrdered By: Dale Quiroz on 11-29-2024 Chloride [Moles/Vol] 102 mmol/L 98-108 [facility] Emergency Department Summary on 11-29-2024 Emergency Department Summary Normal [facility] Eosinophil percentageOrdered By: Kaleb Quiroz on 11-29-2024 Eosinophils/100 WBC (Bld) 0.5 % 0-5 [facility] Erythrocyte distribution wid th ratioOrdered By: Kaleb Quiroz on 11-29-2024 Erythrocyte distribution width (RBC) [Ratio] 14.9 % High 11.6-14.6 [facility] Erythrocyte distribution wid th standard deviationOrdered By: Kaleb Quiroz on 11-29-2024 Erythrocyte distribution width (RBC) [Ratio] 52.2 fl High 35.1-43.9 [facility] Glomerular filtration rate ( GFR) estimation/1.73 sq m using serum, plasma, or whole bOrdered By: Kaleb Quiroz on 11-29-2024 GFR/1.73 sq M.predicted among non-blacks MDRD (S/P/Bld) [Vol rate/Area] 55 mL/min/{1.73_m2} Low >60 [facility] Comment on above: mL/min/1.73m2 CKD-EP I Creatinine Equation (2020) Hematocrit Auto (Bld) [Volum e fraction]Ordered By: Kaleb Quiroz on 11-29-2024 Hematocrit (Bld) [Volume fraction] 47.1 % 40-54 [facility] Hemoglobin measurementOrdere d By: Kaleb Quiroz on 11-29-2024 Hemoglobin (Bld) [Mass/Vol] 15.4 g/dL 13.0-16.5 [facility] Immature granulocytes/100 WB C Auto (Bld)Ordered By: Kaleb Quiroz on 11-29-2024 Immature granulocytes/100 WBC (Bld) 1.400 % High 0.0-0.9 [facility] Comment on above: IG% - Immature Granu locytes (promyelocytes, myelocytes and metamyelocytes) > 1% indicates that a LEFT SHIFT is Present. L499.0042on 11-29-2024 Trop T High Sen 22 ng/L Normal <=22 [facility] Comment on above: Performed By: #### L 499.0042 ####[facility] [address] [place], [address] L499.0043on 11-29-2024 Trop T High Sen Normal <=22 [facility] Comment on above: Result Comment: Canc elled via OM: Order cancelled - Patient discharged Performed By: #### L 499.0043 ####[facility] [address] [place], [place], [id number] L501.4021on 11-29-2024 Trop T High Sen 24 ng/L High <=22 [facility] Comment on above: Performed By: #### L 501.4021, L500.3400, L500.2500, L501.2450, L100.0100 ####[facility] [address] [place], [place], [id number] Laboratory - Chemistry and C hemistry - challengeOrdered By: Kaleb Quiroz on 11-29-2024 AST [Catalytic activity/Vol] 23 U/L <38 [facility] Comment on above: Hemolysis present, R esults could be affected. Lipaseon 11-29-2024 Lipase [Catalytic activity/Vol] 30 U/L Normal 13-75 [facility] Comment on above: Result Comment: Plea se note:LIPASE revised reference range effective 22.New Lipase methodology. Expected to produce lower valuesthan the previous assay method.NEW Reference Range: 13 - 75 U/L Performed By: #### L 501.4021, L500.3400, L500.2500, L501.2450, L100.0100 ####[facility] [address] [place], [place], [id number] Lipase measurementOrdered By : Kaleb Quiroz on 11-29-2024 Lipase [Catalytic activity/Vol] 30 U/L 13-75 [facility] Comment on above: Please note:LIPASE r evised reference range effective 22. New Lipase methodology. Expected to produce lower values than the previous assay method. NEW Reference Range: 13 - 75 U/L Liver Profileon 11-29-2024 Albumin [Mass/Vol] 3.8 g/dL Normal 3.4-4.8 [facility] Comment on above: Performed By: #### L 501.4021, L500.3400, L500.2500, L501.2450, L100.0100 ####[facility] [address] [place], [address] ALK PHOS 49 U/L Normal 40-129 [facility] Comment on above: Performed By: #### L 501.4021, L500.3400, L500.2500, L501.2450, L100.0100 ####[facility] [address] [place], [address] ALT [Catalytic activity/Vol] 31 U/L Normal <=46 [facility] Comment on above: Performed By: #### L 501.4021, L500.3400, L500.2500, L501.2450, L100.0100 ####[facility] [address] [place], [address] AST [Catalytic activity/Vol] 23 U/L Normal <=37 [facility] Comment on above: Result Comment: Hemo lysis present, Results??could be affected.?? Performed By: #### L 501.4021, L500.3400, L500.2500, L501.2450, L100.0100 ####[facility] [address] [place], [address] Bilirubin [Mass/Vol] 0.44 mg/dL Normal 0.00-1.30 [facility] Comment on above: Performed By: #### L 501.4021, L500.3400, L500.2500, L501.2450, L100.0100 ####[facility] [address] [place], [address] Bilirubin.direct [Mass/Vol] 0.17 mg/dL Normal 0.00-0.30 [facility] Comment on above: Result Comment: Hemo lysis present, Results??could be affected.?? Performed By: #### L 501.4021, L500.3400, L500.2500, L501.2450, L100.0100 ####[facility] [address] [place], [address] Globulin (S) [Mass/Vol] 2.8 g/dL Normal 2.2-4.2 [facility] Comment on above: Performed By: #### L 501.4021, L500.3400, L500.2500, L501.2450, L100.0100 ####[facility] [address] [place], [address] T PROT 6.6 g/dL Normal 5.9-8.4 [facility] Comment on above: Performed By: #### L 501.4021, L500.3400, L500.2500, L501.2450, L100.0100 ####[facility] [address] [place], [address] MCV (mean corpuscular volume ) determinationOrdered By: Kaleb Quiroz on 11-29-2024 MCV (RBC) [Entitic vol] 95.2 fL High 80-94 [facility] Mean corpuscular hemoglobin (MCH) determinationOrdered By: Kaleb Quiroz on 11-29-2024 MCH (RBC) [Entitic mass] 31.1 pg 27.0-32.0 [facility] Mean corpuscular hemoglobin concentration (MCHC) determinationOrdered By: Kaleb Quiroz on 11-29-2024 MCHC (RBC) [Mass/Vol] 32.7 g/dL 32-36 [facility] Mean platelet volume determi nationOrdered By: Kaleb Quiroz on 11-29-2024 Platelet mean volume (Bld) [Entitic vol] 10.0 fL 6.2-12.0 [facility] Monocyte percentageOrdered B y: Kaleb Quiroz on 11-29-2024 Monocytes/100 WBC (Bld) 8.3 % 0-10 [facility] Neutrophil percentageOrdered By: Kaleb Quiroz on 11-29-2024 Neutrophils/100 WBC (Bld) 71.7 % High 47-70 [facility] Nucleated red blood cell per centageOrdered By: Kaleb Quiroz on 11-29-2024 Nucleated RBC/100 WBC (Bld) [Ratio] 0.2 % 0-5 [facility] Platelet countOrdered By: Dale Quiroz on 11-29-2024 Platelets (Bld) [#/Vol] 182 10*3/uL 150-450 [facility] Potassium measurement (mass/ volume)Ordered By: Kaleb Quiroz on 11-29-2024 Potassium (Unsp spec) [Mass/Vol] 4.9 mmol/L 3.3-5.1 [facility] Comment on above: Hemolysis present, R esults could be affected. RBC Auto (Bld) [#/Vol]Ordere d By: Kaleb Quiroz on 11-29-2024 RBC (Bld) [#/Vol] 4.95 10*6/uL 4.6-6.2 [facility] Serum creatinine measurement (mass/volume)Ordered By: Kaleb Quiroz on 11-29-2024 Creatinine [Mass/Vol] 1.36 mg/dL High 0.70-1.20 [facility] Serum globulin measurementOr dered By: Kaleb Quiroz on 11-29-2024 Globulin (S) [Mass/Vol] 2.8 g/dL 2.2-4.2 [facility] Serum glucose measurement (m ass/volume)Ordered By: Kaleb Quiroz on 11-29-2024 Glucose [Mass/Vol] 117 mg/dL High 70-99 [facility] Serum or plasma alanine gandhi otransferase (ALT) measurementOrdered By: Kaleb Quiroz on 11-29-2024 ALT [Catalytic activity/Vol] 31 U/L <47 [facility] Serum or plasma albumin meño urement (mass/volume)Ordered By: Kaleb Quiroz on 11-29-2024 Albumin [Mass/Vol] 3.8 g/dL 3.4-4.8 [facility] Serum or plasma alkaline adam sphatase measurementOrdered By: Kaleb Quiroz on 11-29-2024 ALP [Catalytic activity/Vol] 49 U/L 40-129 [facility] Serum or plasma calcium meño urement (mass/volume)Ordered By: Kaleb Quiroz on 11-29-2024 Calcium [Mass/Vol] 9.7 mg/dL 7.6-11.0 [facility] Serum or plasma urea nitroge n measurement (mass/volume)Ordered By: Kaleb Quiroz on 11-29-2024 Urea nitrogen [Mass/Vol] 18 mg/dL 4-19 [facility] Sodium levelOrdered By: Santosh Quiroz on 11-29-2024 Sodium [Moles/Vol] 138 mmol/L 133-145 [facility] Total proteinOrdered By: Tylor Quiroz on 11-29-2024 Protein [Mass/Vol] 6.6 g/dL 5.9-8.4 [facility] Troponin T.cardiac [Mass/vol ume] in Serum or Plasma by High sensitivity methodOrdered By: Kaleb Quiroz on 11-29-2024 Troponin T.cardiac High sensitivity method [Mass/Vol] 24 ng/L High <22 [facility] Troponin T.cardiac High sensitivity method [Mass/Vol] 22 ng/L <22 [facility] White blood cell (WBC) count Ordered By: Kaleb Quiroz on 11-29-2024 WBC (Bld) [#/Vol] 11.1 10*3/uL High 4.4-11.0 [facility] Basic Metabolic Profile (BMP )on 11-05-2024 BUN/CRE 15.6 RATIO Normal 10-20 [facility] Comment on above: Performed By: #### L 500.2500 ####[facility] [address] [place], [address] Calcium [Mass/Vol] 9.6 mg/dL Normal 7.6-11.0 [facility] Comment on above: Performed By: #### L 500.2500 ####[facility] [address] [place], [address] Chloride [Moles/Vol] 102 mmol/L Normal 98-108 [facility] Comment on above: Performed By: #### L 500.2500 ####[facility] [address] [place], [address] CO2 [Moles/Vol] 22.7 mmol/L Normal 21.0-32.0 [facility] Comment on above: Performed By: #### L 500.2500 ####[facility] [address] [place], [address] Creatinine [Mass/Vol] 1.08 mg/dL Normal 0.70-1.20 [facility] Comment on above: Performed By: #### L 500.2500 ####[facility] [address] [place], [address] GAP 11 Normal 5-15 [facility] Comment on above: Performed By: #### L 500.2500 ####[facility] [address] [place], [address] GFR/1.73 sq M.predicted among non-blacks MDRD (S/P/Bld) [Vol rate/Area] 72 mL/min/{1.73_m2} Normal >60 [facility] Comment on above: Result Comment: mL/m in/1.73m2 CKD-EPI Creatinine Equation (2020) Performed By: #### L 500.2500 ####[facility] [address] [place], [address] Glucose [Mass/Vol] 161 mg/dL High 70-99 [facility] Comment on above: Performed By: #### L 500.2500 ####[facility] [address] [place], [address] Potassium [Moles/Vol] 4.2 mmol/L Normal 3.3-5.1 [facility] Comment on above: Performed By: #### L 500.2500 ####[facility] [address] [place], [address] Sodium [Moles/Vol] 136 mmol/L Normal 133-145 [facility] Comment on above: Performed By: #### L 500.2500 ####[facility] [address] [place], [address] Urea nitrogen [Mass/Vol] 17 mg/dL Normal 4-19 [facility] Comment on above: Performed By: #### L 500.2500 ####[facility] [address] [place], [address] Anion gap in Serum or Plasma Ordered By: Maxwell Torres on 11-04-2024 Anion gap [Moles/Vol] 11 mmol/L 5-15 [facility] BUN/creatinine ratioOrdered By: Maxwell Torres on 11-04-2024 Urea nitrogen/Creatinine [Mass ratio] 15.6 mg/mg 10-20 [facility] Carbon dioxide, total [Moles /volume] in Central venous bloodOrdered By: Maxwell Torres on 11-04-2024 CO2 [Moles/Vol] 22.7 mmol/L 21.0-32.0 [facility] Chloride assayOrdered By: Randell Torres on 11-04-2024 Chloride [Moles/Vol] 102 mmol/L 98-108 [facility] Glomerular filtration rate ( GFR) estimation/1.73 sq m using serum, plasma, or whole bOrdered By: Maxwell Torres on 11-04-2024 GFR/1.73 sq M.predicted among non-blacks MDRD (S/P/Bld) [Vol rate/Area] 72 mL/min/{1.73_m2} >60 [facility] Comment on above: mL/min/1.73m2 CKD-EP I Creatinine Equation (2020) Potassium measurement (mass/ volume)Ordered By: Maxwell Torres on 11-04-2024 Potassium (Unsp spec) [Mass/Vol] 4.2 mmol/L 3.3-5.1 [facility] Serum creatinine measurement (mass/volume)Ordered By: Maxwell Torres on 11-04-2024 Creatinine [Mass/Vol] 1.08 mg/dL 0.70-1.20 [facility] Serum glucose measurement (m ass/volume)Ordered By: Maxwell Torres on 11-04-2024 Glucose [Mass/Vol] 161 mg/dL High 70-99 [facility] Serum or plasma calcium meño urement (mass/volume)Ordered By: Maxwell Torres on 11-04-2024 Calcium [Mass/Vol] 9.6 mg/dL 7.6-11.0 [facility] Serum or plasma urea nitroge n measurement (mass/volume)Ordered By: Maxwell Torres on 11-04-2024 Urea nitrogen [Mass/Vol] 17 mg/dL 4-19 [facility] Sodium levelOrdered By: Bonita Torres on 11-04-2024 Sodium [Moles/Vol] 136 mmol/L 133-145 [facility] Acid Fast Bacillus Cultureon 10-03-2024 tAFBC Normal [facility] Comment on above: Performed By: #### M 300.2000, L200.0200, M300.3000, L350.1000 ####[facility] [address] [place], [address] Acid Fast Bacillus Smear/Flu oron 10-03-2024 tafb Normal [facility] Comment on above: Performed By: #### M 300.2000, L200.0200, M300.3000, L350.1000 ####[facility] [address] [place], [address] Body Fluid Cell Count+Diffon 09-14-2024 PATH COMM/BF Reviewed Normal [facility] Comment on above: Order Comment: The r eference range and other method performancespecifications have not been established for this bodyfluid. The test must be integrated into the clinicalcontext for interpretation.RLL Result Comment: THE SMEAR SHOWS MACROPHAGES AND LYMPHOCYTES IDENTIFICATION.A BAL SPECIMEN.Jese Perez MD 09/14/2024 AMENDED REPORT 09/14/24 1622 PATH COMM/BF previously reported as: May follow Performed By: #### M 300.2000, L200.0200, M300.3000, L350.1000 ####[facility] [address] [place], [address] L3410.9998on 09-09-2024 [facility] Misc. COMMENT Normal . [facility] Comment on above: Order Comment: [id number] Result Comment: Test Ordered: [id number] Anti-U3 TERMINAL CARMAN (Fibrillarin)(RDL)Test(s) 393583-Czzy-C4 TERMINAL CARMAN (Fibrillarin)(RDL)was developed and its performance characteristicsdetermined by [facility]. It has not been cleared or approvedby the Food and Drug Administration.Anti-U3 TERMINAL CARMAN (Fibrillarin)(RDL) Negative [facility] Reference Range: NegativePerformed at: [facility] [address] [place], [place] [id number] Director: Maxine Mae MD, Phone: [phone] at: [address] [id number] Director: Petr Arzola PhD, Phone: [phone] Performed By: #### L 3410.9998 ####[facility] [address] [place], [address] L3410.9998on 09-03-2024 [facility] COM[facility] Normal . [facility] Comment on above: Order Comment: [id number] Result Comment: Test Ordered: [id number] Anti-Synthetase Profile (RDL)Test(s) 109143-Chuz-PK-9 Ab (RDL); 420845-Ofzp-BL-11 Ab (RDL); 251981-Pukn-JA Ab (RDL); 581059-Dfys-GL Ab (RDL)was developed and its performance characteristicsdetermined by [facility]. It has not been cleared or approvedby the Food and Drug Administration.Anti-Susannah-1 Ab (RDL) <20 Units [facility] Reference Range: <20Anti-PL-7 Ab (RDL) Negative [facility] Reference Range: MfmbrlqoObfa-XJ-16 Ab (RDL) Negative [facility] Reference Range: NegativeAnti-EJ Ab (RDL) Negative [facility] Reference Range: NegativeAnti-OJ Ab (RDL) Negative [facility] Reference Range: Negative Interpretation for Anti-Susannah-1: Negative: <20 Weak Positive: 20 - 39 Moderate Positive: 40 - 80 Strong Positive: >80 Given overlapping phenotypes, autoantibody positivity should be interpreted in the context of clinical and other laboratory findings.Performed at: [facility] [id number] [place], [place] [id number] Director: Maxnie Mae MD, Phone: [phone] at: CB - [facility] [address] [place], [place] [id number] Director: Petr Arzola PhD, Phone: [phone] Performed By: #### L 3300.1200, L4600.0100, L3410.9998, L3100.6900, L501.6710, L803.2200, L3100.9100, L3100.5500 ####[facility] [address] [place], [address] MRI ANGIO SPINEon 09-02-2024 MRI ANGIO SPINE [...] vascular abnormality within the lumbar spine. Normal [facility] CYTOLOGY, NON-GYNon 09-02-19 25 CYTOLOGIC DIAGNOSIS Normal [facility] Comment on above: Result Comment: A. 2 ND OPINION CONSULTATION, CYTOLOGY - Right Lower Lobe Lung Fluid, Bronchoalveolar Lavage ( Collected 08/19/2024): FINAL DIAGNOSIS: No Malignant Cells Are Identified at 1339 EDT Performed By: #### I CRESP #### [facility] (DEFAULT) [address] [address] Case Report Normal [facility] Comment on above: Result Comment: Medi jaden Cytology Report Case: [id number] Authorizing Provider: Dejah Brennan MD Collected: 09/01/2024 08:20 AM Ordering Location: [facility] Received: 09/01/2024 08:15 AM [place] Specimen: BRONCHOALVEOLAR LAVAGE, Right Lower Lobe Lung Fluid, Bronchoalveolar Lavage ( Collected 08/19/2024) Performed By: #### I CRESP #### [facility] (DEFAULT) [address] [address] Gross Description Normal [facility] Comment on above: Result Comment: Subm itted from [facility], [address] [place] [address] are four (4) slides labeled [id number]. An identifying pathology report is included. Outside slides are returned in sixty (60) days under separate cover with our number recorded on them. Performed By: #### I CRESP #### [facility] (DEFAULT) [address] [place] [address] Professional Interpretation Performed at: [facility] Comment on above: Result Comment: For Immediate Release to Patient's MyChart? Yes [facility] [address] [place] [address] Performed By: #### I CRESP #### [facility] (DEFAULT) [address] [address] MRI SPINE LUMBAR WITHOUT CON TRASTon 09-01-2024 [...] and on the left at L5-S1. Normal [facility] SURG PATH REQUESTon 09-01-19 Case Report Normal [facility] Comment on above: Result Comment: Surg ical Pathology Report Case: [id number] Authorizing Provider: Dejah Brennan MD Collected: 08/31/2024 10:54 AM Ordering Location: [facility] Received: 08/31/2024 10:38 AM [place] Pathologist: Perez Burciaga MD Specimen: SURG PATH, Lung, right lower lobe, endobronchial biopsy Performed By: #### S URGP #### [facility] (DEFAULT) [address] [place] [address] Clinical History Normal [facility] Comment on above: Result Comment: Rece ived is a request for a second opinion consultation by Dejah Brennan MD at [facility]: 74 [address] with increasing symptoms > 1 year. Clinician considered hypersensitivity pneumonitis but CT ? UIPF classic. Pt has past exposure nos. He is SOB . Ground glass & reticular pattern. Clinical History: BAL with 77% lymphocytes. Pt on Humira for psoriatic arthritis. Inflammatory panel neg. R/O drug- induced pneumonitis. 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 Performed By: #### S URGP #### [facility] (DEFAULT) [address] [place] [address] Diagnosis Comments Normal [facility] Comment on above: Result Comment: [...] recommended. Performed By: #### S URGP #### [facility] (DEFAULT) [address] [place] [address] Gross Description Normal [facility] Comment on above: Result Comment: The following material(s) are received from [facility], [address] [place] [address], with an identifying surgical pathology report as well as a Cytology case included for review ([id number]): 1 H&E slide(s) and 2 non-H&E slide(s), labeled [id number] . Outside materials are returned in sixty (60) days under separate cover with our number recorded on them. Grosser for this case was: Lynn Apple Performed By: #### S URGP #### [facility] (DEFAULT) [address] [place] [address] Microscopic Description Normal [facility] Comment on above: Result Comment: A mi croscopic examination was performed. All controls show appropriate reactivity. All immunohistochemistry (IHC), in situ hybridization (LIBBY), and histochemical tests were developed by and are performed at the [facility], Histology and IHC Lab, [address] [place] [address], [place] [address], [place] [address]. All Immunofluorescent (IF) tests were developed by and are performed at the [facility], Renal Division, [address] [place] [address]. All tests reported here, except for PD-L1, have not been cleared by or approved by the [place] Food and Drug Administration (FDA). The laboratory is regulated under CLIA as qualified to perform high-complexity testing. The tests are used for clinical purposes. They should not be regarded as investigational or for research. Performed By: #### S URGP #### [facility] (DEFAULT) [address] [place] [address] Pathologic Diagnosis Normal [facility] Comment on above: Result Comment: Outs rob Slides: [id number] (08/19/24) A. Lung, right lower lobe, endobronchial biopsy: Fragments of benign lung tissue with peribronchiolar metaplasia. Patchy chronic lymphoplasmacytic inflammation. at 1139 EDT Performed By: #### S URGP #### [facility] (DEFAULT) [address] [place] [address] Professional Interpretation Performed at: [facility] Comment on above: Result Comment: [facility] For Immediate Release [facility] Yes [address] [place] [address] Performed By: #### S URGP #### [facility] (DEFAULT) [address] [place] [address] Anion gap in Serum or Plasma Ordered By: Maxwell Torres on 08-26-2024 Anion gap [Moles/Vol] 12 mmol/L - [facility] BUN/creatinine ratioOrdered By: Maxwell Torres on 08-26-2024 Urea nitrogen/Creatinine [Mass ratio] 12.4 mg/mg 04-05 [facility] Bilirubin, totalOrdered By: Maxwell Torres on 08-26-2024 Bilirubin [Mass/Vol] 0.46 mg/dL 0.00-1.30 [facility] Carbon dioxide, total [Moles /volume] in Central venous bloodOrdered By: Maxwell Torres on 08-26-2024 CO2 [Moles/Vol] 21.5 mmol/L 21.0-32.0 [facility] Chloride assayOrdered By: Randell Torres on 08-26-2024 Chloride [Moles/Vol] 102 mmol/L 98-108 [facility] Comprehensive Metabolic Prof ilon 08-26-2024 Albumin [Mass/Vol] 3.8 g/dL Normal 3.4-4.8 [facility] Comment on above: Performed By: #### L 501.9520, L500.4050, L501.9985 ####[facility] [address] [place], [address] Albumin/Globulin [Mass ratio] 1.1 {ratio} Normal 0.9-2.4 [facility] Comment on above: Performed By: #### L 501.9520, L500.4050, L501.9985 ####[facility] [address] [place], [address] ALK PHOS 69 U/L Normal 40-129 [facility] Comment on above: Performed By: #### L 501.9520, L500.4050, L501.9985 ####[facility] [address] [place], [address] ALT [Catalytic activity/Vol] 21 U/L Normal <=46 [facility] Comment on above: Performed By: #### L 501.9520, L500.4050, L501.9985 ####[facility] [address] [place], [address] AST [Catalytic activity/Vol] 30 U/L Normal <=37 [facility] Comment on above: Performed By: #### L 501.9520, L500.4050, L501.9985 ####[facility] [address] [place], [address] Bilirubin [Mass/Vol] 0.46 mg/dL Normal 0.00-1.30 [facility] Comment on above: Performed By: #### L 501.9520, L500.4050, L501.9985 ####[facility] [address] [place], [address] BUN/CRE 12.4 RATIO Normal 10-20 [facility] Comment on above: Performed By: #### L 501.9520, L500.4050, L501.9985 ####[facility] [address] [place], [address] Calcium [Mass/Vol] 9.5 mg/dL Normal 7.6-11.0 [facility] [facility] Comment on above: Performed By: #### L 501.9520, L500.4050, L501.9985 ####[facility] [address] [place], [address] Chloride [Moles/Vol] 102 mmol/L Normal 98-108 [facility] Comment on above: Performed By: #### L 501.9520, L500.4050, L501.9985 ####[facility] [address] [place], [address] CO2 [Moles/Vol] 21.5 mmol/L Normal 21.0-32.0 [facility] Comment on above: Performed By: #### L 501.9520, L500.4050, L501.9985 ####[facility] [address] [place], [address] Creatinine [Mass/Vol] 1.33 mg/dL High 0.70-1.20 [facility] Comment on above: Performed By: #### L 501.9520, L500.4050, L501.9985 ####[facility] [address] [place], [address] GAP 12 Normal 5-15 [facility] Comment on above: Performed By: #### L 501.9520, L500.4050, L501.9985 ####[facility] [address] [place], [address] GFR/1.73 sq M.predicted among non-blacks MDRD (S/P/Bld) [Vol rate/Area] 56 mL/min/{1.73_m2} Low >60 [facility] Comment on above: Result Comment: mL/m in/1.73m2 CKD-EPI Creatinine Equation (2020) Performed By: #### L 501.9520, L500.4050, L501.9985 ####[facility] [address] [place], [address] Globulin (S) [Mass/Vol] 3.4 g/dL Normal 2.2-4.2 [facility] Comment on above: Performed By: #### L 501.9520, L500.4050, L501.9985 ####[facility] [address] [place], [address] Glucose [Mass/Vol] 303 mg/dL High 70-99 [facility] Comment on above: Performed By: #### L 501.9520, L500.4050, L501.9985 ####[facility] [address] [place], [address] Potassium [Moles/Vol] 4.1 mmol/L Normal 3.3-5.1 [facility] Comment on above: Performed By: #### L 501.9520, L500.4050, L501.9985 ####[facility] [address] [place], [address] Sodium [Moles/Vol] 136 mmol/L Normal 133-145 [facility] Comment on above: Performed By: #### L 501.9520, L500.4050, L501.9985 ####[facility] [address] [place], [address] T PROT 7.2 g/dL Normal 5.9-8.4 [facility] Comment on above: Performed By: #### L 501.9520, L500.4050, L501.9985 ####[facility] [address] [place], [address] Urea nitrogen [Mass/Vol] 17 mg/dL Normal 4-19 [facility] Comment on above: Performed By: #### L 501.9520, L500.4050, L501.9985 ####[facility] [address] [place], [address] GFR/1.73 sq M.predicted jose g non-blacks MDRD (S/P/Bld) [Vol rate/Area]Ordered By: Maxwell Torres on 08-26-2024 Estimated GFR (MDRD) Non-Af Amer 56 Low >60 [facility] Comment on above: mL/min/1.73m2 CKD-EP I Creatinine Equation (2020) Glomerular filtration rate ( GFR) estimation/1.73 sq m using serum, plasma, or whole bOrdered By: Maxwell Torres on 08-26-2024 GFR/1.73 sq M.predicted among non-blacks MDRD (S/P/Bld) [Vol rate/Area] 56 mL/min/{1.73_m2} Low >60 [facility] Comment on above: mL/min/1.73m2 CKD-EP I Creatinine Equation (2020) Hemoglobin A1con 08-26-2024 HbA1c (Bld) [Mass fraction] 8.2 % Normal <=5.6 [facility] Comment on above: Performed By: #### L 501.9520, L500.4050, L501.9985 ####[facility] [address] [place], [address] Hemoglobin A1c percentageOrd ered By: Maxwell Torres on 08-26-2024 HbA1c (Bld) [Mass fraction] 8.2 % >5.7 [facility] Laboratory - Chemistry and C hemistry - challengeOrdered By: Maxwell Torres on 08-26-2024 AST [Catalytic activity/Vol] 30 U/L <38 [facility] Potassium (Unsp spec) [Mass/ Vol]Ordered By: Maxwell Torres on 08-26-2024 Potassium [Moles/Vol] 4.1 mmol/L 3.3-5.1 [facility] Potassium measurement (mass/ volume)Ordered By: Maxwell Torres on 08-26-2024 Potassium (Unsp spec) [Mass/Vol] 4.1 mmol/L 3.3-5.1 [facility] Serum creatinine measurement (mass/volume)Ordered By: Maxwell Torres on 08-26-2024 Creatinine [Mass/Vol] 1.33 mg/dL High 0.70-1.20 [facility] Serum globulin measurementOr dered By: Maxwell Torres on 08-26-2024 Globulin (S) [Mass/Vol] 3.4 g/dL 2.2-4.2 [facility] Serum glucose measurement (m ass/volume)Ordered By: Maxwell Torres on 08-26-2024 Glucose [Mass/Vol] 303 mg/dL High 70-99 [facility] Serum or plasma alanine gandhi otransferase (ALT) measurementOrdered By: Maxwell Torres on 08-26-2024 ALT [Catalytic activity/Vol] 21 U/L <47 [facility] Serum or plasma albumin meño urement (mass/volume)Ordered By: Maxwell Torres on 08-26-2024 Albumin [Mass/Vol] 3.8 g/dL 3.4-4.8 [facility] Serum or plasma albumin/glob ulin mass ratioOrdered By: Maxwell Torres on 08-26-2024 Albumin/Globulin [Mass ratio] 1.1 {ratio} 0.9-2.4 [facility] Serum or plasma alkaline adam sphatase measurementOrdered By: Maxwell Torres on 08-26-2024 ALP [Catalytic activity/Vol] 69 U/L 40-129 [facility] Serum or plasma calcium meño urement (mass/volume)Ordered By: Maxwell Torres on 08-26-2024 Calcium [Mass/Vol] 9.5 mg/dL 7.6-11.0 [facility] Serum or plasma urea nitroge n measurement (mass/volume)Ordered By: Maxwell Torres on 08-26-2024 Urea nitrogen [Mass/Vol] 17 mg/dL 4-19 [facility] Sodium levelOrdered By: Bonita Torres on 08-26-2024 Sodium [Moles/Vol] 136 mmol/L 133-145 [facility] TSH DL <= 0.005 mIU/L QnOrde red By: Maxwell Torres on 08-26-2024 Thyroid Stimulating Hormone (TSH) 1.510 uIU/mL 0.300-4.20 0 [facility] TSH Qn 1.510 uIU/mL 0.300-4.20 0 [facility] Thyroid Stim Hormone (TSH)on 08-26-2024 TSH 1.510 uIU/mL Normal 0.300-4.20 0 [facility] Comment on above: Performed By: #### L 501.9520, L500.4050, L501.9985 ####[facility] [address] [place], [place], [id number] Total proteinOrdered By: Adrian Torres on 08-26-2024 Protein [Mass/Vol] 7.2 g/dL 5.9-8.4 [facility] Acid fast bacillus (AFB) cul tureOrdered By: Marjan Rasmussen on 08-20-2024 Mycobacterium sp identified Org specific cx Nom (Unsp spec) [facility] Appearance (Body fld)Ordered By: Marjan Rasmussen on 08-20-2024 Body Fluid Appearance SL CLDY [facility] Body fluid appearance (nomin al result)Ordered By: Marjan Rasmussen on 08-20-2024 Appe[facility] (Body fld) [facility] Body fluid color determinati onOrdered By: Marjan Rasmussen on 08-20-2024 Color (Body fld) RED [facility] Body fluid erythrocytes coun t (number/volume)Ordered By: Marjan Rasmussen on 08-20-2024 RBC (Body fld) [#/Vol] 37 10*3/uL [facility] Body fluid leukocytes count (number/volume)Ordered By: Marjan Rasmussen on 08-20-2024 WBC (Body fld) [#/Vol] 0.469 10*3/uL [facility] Body fluid lymphocytes/100 l eukocytesOrdered By: Marjan Rasmussen on 08-20-2024 Lymphocytes/100 WBC (Body fld) 77 % [facility] Body fluid macrophage countO rdered By: Marjan Rasmussen on 08-20-2024 Macrophages (Body fld) [#/Vol] 18 % [facility] Body fluid mononuclear cell countOrdered By: Marjan Rasmussen on 08-20-2024 Body Fluid Mononuclear WBCs 0.397 10^3/uL [facility] Body fluid mononuclear cell percentageOrdered By: Marjan Rasmussen on 08-20-2024 Mononuclear cells/100 WBC (Body fld) 84.6 % [facility] Body fluid other cell count as percentage of leukocytesOrdered By: Marjan Rasmussen on 08-20-2024 Other cells/100 WBC (Body fld) 3 % [facility] Body fluid segmented neutrop hils count (number/volume)Ordered By: Marjan Rasmussen on 08-20-2024 Segmented neutrophils (Body fld) [#/Vol] 2 % [facility] Body fluid total cell countO rdered By: Marjan Rasmussen on 08-20-2024 Cells Counted Total (Body fld) [#] 0.540 10^3/ul [facility] Comment on above: This is the Total Nu mber of Nucleated Cell Types in the Body Fluid. Cells Counted Total (Body fl d) [#]Ordered By: Marjan Rasmussen on 08-20-2024 Body Fluid Total Cells Counted 0.540 10^3/ul [facility] Comment on above: This is the Total Nu mber of Nucleated Cell Types in the Body Fluid. Color (Body fld)Ordered By: Marjan Rasmussen on 08-20-2024 Body Fluid Color RED [facility] Cytology report Cyto stain D oc (Body fld)Ordered By: Marjan Rasmussen on 08-20-2024 Miscellaneous Cytology SEE PATHOLOGY REPORT [facility] Comment on above: Specimen submitted t o Anatomical Pathology Department for testing. Cytology report of Body flui d Cyto stainOrdered By: Marjan Rasmussen on 08-20-2024 Cytology report Cyto stain Doc (Body fld) SEE PATHOLOGY REPORT [facility] Comment on above: Specimen submitted t o Anatomical Pathology Department for testing. Cytology, Body Fluid / CSFon 08-20-2024 CYTOLOGY,BF/CSF SEE PATHOLOGY REPORT Normal [facility] Comment on above: Order Comment: RLL Result Comment: Spec imen submitted to Anatomical Pathology Department fortesting. Performed By: #### M 300.2000, L200.0200, M300.3000, L350.1000 ####[facility] [address] [place], [address] Lymphocytes/100 WBC (Body fl d)Ordered By: Marjan Rasmussen on 08-20-2024 Body Fluid Lymphocytes 77 % [facility] Macrophages (Body fld) [#/Vo l]Ordered By: Marjan Rasmussen on 08-20-2024 Body Fluid Macrophages 18 % [facility] Mononuclear cells/100 WBC (B darryl fld)Ordered By: Marjan Rasmussen on 08-20-2024 Body Fluid Mononuclear WBCs (%) 84.6 % [facility] No Panel InformationOrdered By: Marjan Rasmussen on 08-20-2024 Body Fluid Comment 2 Not Reportable [facility] Other cells/100 WBC (Body fl d)Ordered By: Marjan Rasmussen on 08-20-2024 Body Fluid Other Cells 3 % [facility] Pathologist interpretation ( Body fld) [Interp]Ordered By: Marjan Rasmussen on 08-20-2024 Body Fluid Pathologist Comment May follow [facility] Pathologist interpretation o f Body fluid testsOrdered By: Marjan Rasmussen on 08-20-2024 Pathologist interpretation (Body fld) [Interp] Reviewed [facility] Comment on above: Previous reported re sult: May follow Edited by: JAMIE on 09/14/24:1622THE SMEAR SHOWS MACROPHAGES AND LYMPHOCYTES IDENTIFICATION. A BAL SPECIMEN.Jese Perez MD 09/14/2024 AMENDED REPORT 09/14/24 1622 PATH COMM/BF previously reported as: May follow Polymorphonuclear (PMN) leuk ocyte countOrdered By: Marjan Rasmussen on 08-20-2024 Body Fluid Polynuclear WBCs (%) 15.4 % [facility] Polymorphonuclear cells (Bod y fld) [#/Vol]Ordered By: Marjan Rasmussen on 08-20-2024 Body Fluid Polynuclear WBCs (#) 0.072 10^3/uL [facility] RBC (Body fld) [#/Vol]Ordere d By: Marjan Rasmussen on 08-20-2024 Body Fluid RBC 0.037 10^6/ul [facility] Segmented neutrophils (Body fld) [#/Vol]Ordered By: Marjan Rasmussen on 08-20-2024 Body Fluid Neutrophils 2 % [facility] Specimen source Nom (Body fl d)Ordered By: Marjan Rasmussen on 08-20-2024 Body Fluid Source BRONCHIAL LAVAGE [facility] Specimen source identificati on of body fluidOrdered By: Marjan Rasmussen on 08-20-2024 Specimen source Nom (Body fld) BRONCHIAL LAVAGE [facility] WBC (Body fld) [#/Vol]Ordere d By: Marjan Rasmussen on 08-20-2024 Body Fluid WBC 0.469 10^3/uL [facility] Bedside Glucoseon 08-19-2024 FINGERSTICK GLU 184 mg/dL High 74-106 [facility] Comment on above: Result Comment: HELDER ADKINS OF PATIENT CARE PER NURSING PROTOCOL Performed By: #### L 501.080 ####[facility] [address] [place], [address] Bronchoscopy Reporton 2024 Bronchoscopy Report Normal [facility] Chest 1 View (Portable)on Chest 1 View (Portable) Normal [facility] de[facility]dered By: Marjan Rasmussen on 08-19-2024 Bedside Glucose (Misc Panel) 184 mg/dL High 74-106 [facility] Comment on above: MANAGEMENT OF PATIEN T CARE PER NURSING PROTOCOL Glucose [Mass/Vol] 184 mg/dL High 74-106 [facility] Comment on above: MANAGEMENT OF PATIEN T CARE PER NURSING PROTOCOL MR/POSTOP.ANEon 08-19-2024 MR/POSTOP.ANE Normal [facility] MR/JZIJDWPY4bq 08-19-2024 MR/POSTOPAN2 Normal [facility] Special Stain Group IIon Special Stain Group II Normal [facility] Comment on above: Performed By: #### P SSII ####[facility] [address] [place], [place], [id number] Surgery Specimen Level Jesse 08-19-2024 Surgery Specimen Level IV Normal [facility] Comment on above: Performed By: #### P SUIV ####[facility] [address] [place], [place], [id number] ANCAon 08-14-2024 Atypical pANCA <1:20 Normal Neg:<1:20 [facility] Comment on above: Result Comment: The atypical pANCA pattern has been observed in asignificant percentage of patients with ulcerative colitis,primary sclerosing cholangitis and autoimmune hepatitis. Performed By: #### L 3300.1200, L4600.0100, L3410.9998, L3100.6900, L501.6710, L803.2200, L3100.9100, L3100.5500 ####[facility] [address] [place], [place], [id number] Cytoplasmic Ab <1:20 Normal Neg:<1:20 [facility] Comment on above: Performed By: #### L 3300.1200, L4600.0100, L3410.9998, L3100.6900, L501.6710, L803.2200, L3100.9100, L3100.5500 ####[facility] [address] [place], [place], [id number] Perinuclear Ab. <1:20 Normal Neg:<1:20 [facility] Comment on above: Result Comment: The presence of positive fluorescence exhibiting P-ANCA orC-ANCA patterns alone is not specific for the diagnosis ofWegener's Granulomatosis (WG) or microscopic polyangiitis.Decisions about treatment should not be based solely onANCA IFA results. The [employer] ANCA [employer] Consensusrecommends follow up testing of positive sera with both AK-3 and MPO-ANCA enzyme immunoassays. As many as 5% serumsamples are positive only by EIA. Ref. AM J Clin Grgoon1935;111:507-513. Performed By: #### L 3300.1200, L4600.0100, L3410.9998, L3100.6900, L501.6710, L803.2200, L3100.9100, L3100.5500 ####[facility] [address] [place], [address] Angiotensin Convert Enzymeon 08-14-2024 ANGIOT-CONV.ENZ 21 U/L Normal 14-82 [facility] Comment on above: Performed By: #### L 3300.1200, L4600.0100, L3410.9998, L3100.6900, L501.6710, L803.2200, L3100.9100, L3100.5500 ####[facility] [address] [place], [address] Anti-Smooth Muscle ABSon ANTISMOOTH MUSC 19 Units Normal 0-19 [facility] Comment on above: Result Comment: Nega tive 0 - 19 Weak positive 20 - 30 Moderate to strong positive >30 Actin Antibodies are found in 52-85% of patients with autoimmune hepatitis or chronic active hepatitis and in 22% of patients with primary biliary cirrhosis. Performed By: #### L 3300.1200, L4600.0100, L3410.9998, L3100.6900, L501.6710, L803.2200, L3100.9100, L3100.5500 ####[facility] [address] [place], [address] Anti-dsDNA Abon 08-14-2024 ANTI-DNA (DS)AB 1 IU/mL Normal 0-9 [facility] Comment on above: Result Comment: Nega tive <5 Equivocal 5 - 9 Positive >9Performed at: - [facility] [id number] Director: Petr Arzola PhD, Phone: [phone] Performed By: #### L 3300.1200, L4600.0100, L3410.9998, L3100.6900, L501.6710, L803.2200, L3100.9100, L3100.5500 ####[facility] [address] [place], [place], [id number] CCP IgG Antibodieson CCP IgG Ab. 18 units Normal 0-19 [facility] Comment on above: Result Comment: Nega tive <20 Weak positive 20 - 39 Moderate positive 40 - 59 Strong positive >59Performed at: [address] [id number] Director: Petr Arzola PhD, Phone: [phone] Performed By: #### L 3300.1200, L4600.0100, L3410.9998, L3100.6900, L501.6710, L803.2200, L3100.9100, L3100.5500 ####[facility] [address] [facility] [address] [place], [place], [id number] MR/PAT.ANEon 08-14-2024 MR/PAT.ANE Normal [facility] Sjogren's Antibodies A/Bon 0 08-14-2024 ANTI-SS-A < 0.2 Normal 0.0-0.9 [facility] Comment on above: Result Comment: AMENDED REPORT 08/14/241507 Anti-SS-A previously reported as: Test not performed Performed By: #### L 3300.1200, L4600.0100, L3410.9998, L3100.6900, L501.6710, L803.2200, L3100.9100, L3100.5500 ####[facility] [address] [place], [place], [id number] ANTI-SS-B < 0.2 Normal 0.0-0.9 [facility] Comment on above: Result Comment: AMENDED REPORT 08/14/241507 Anti-SS-B previously reported as: Test not performed Performed By: #### L 3300.1200, L4600.0100, L3410.9998, L3100.6900, L501.6710, L803.2200, L3100.9100, L3100.5500 ####[facility] [address] [place], [place], [id number] Actin IgG QnOrdered By: Kenji Rasmussen on 08-13-2024 Anti-Smooth Muscle Antibody 19 Units 0-19 [facility] Comment on above: Negative 0 - 19 Weak positive 20 - 30 Moderate to strong positive >30 Actin Antibodies are found in 52-85% of patients with autoimmune hepatitis or chronic active hepatitis and in 22% of patients with primary biliary cirrhosis. Atypical perinuclear antineu trophil cytoplasmic antibodies measurementOrdered By: Marjan Rasmussen on 08-13-2024 Atypical p-ANCA <1:20 titer Neg:<1:20 [facility] Comment on above: The atypical pANCA p attern has been observed in asignificant percentage of patients with ulcerative colitis,primary sclerosing cholangitis and autoimmune hepatitis. CRPon 08-13-2024 C-REACTIVE PROT < 3.00 Normal 0.0-3.0 [facility] Comment on above: Performed By: #### L 3300.1200, L4600.0100, L3410.9998, L3100.6900, L501.6710, L803.2200, L3100.9100, L3100.5500 ####[facility] [address] [place], [place], [id number] CRP [Mass/Vol]Ordered By: Sia Rasmussen on 08-13-2024 C-Reactive Protein Extended Range < 3.00 mg/L 0.0-3.0 [facility] Cyclic citrullinated peptide IgG QnOrdered By: Marjan Rasmussen on 08-13-2024 Cyclic Citrullinated Peptide IgG Ab 18 units 0-19 [facility] Comment on above: Negative <20 Weak po sitive 20 - 39 Moderate positive 40 - 59 Strong positive >59Performed at: [facility] [address] [id number] Director: Petr Arzola PhD, Phone: [phone] DNA double strand Ab Qn (S)O rdered By: Marjan Rasmussen on 08-13-2024 Anti-Double Strand DNA Antibody 1 IU/mL 0-9 [facility] Comment on above: Negative <5 Equivoca l 5 - 9 Positive >9Performed at: CB - [facility] [address] [place], [place] [id number] Director: Petr Arzola PhD, Phone: [phone] Neutrophil cytoplasmic Ab.cl assic Qn (S)Ordered By: Marjan Rasmussen on 08-13-2024 Cytoplasmic ANCA (c-ANCA) Antibody <1:20 titer Neg:<1:20 [facility] Neutrophil cytoplasmic Ab.pe rinuclear IF (S) [Titer]Ordered By: Marjan Rasmussen on 08-13-2024 Perinuclear ANCA (p-ANCA) Antibody <1:20 titer Neg:<1:20 [facility] Comment on above: The presence of posi tive fluorescence exhibiting P-ANCA orC-ANCA patterns alone is not specific for the diagnosis ofWegener's Granulomatosis (WG) or microscopic polyangiitis.Decisions about treatment should not be based solely onANCA IFA results. The [employer] Consensusrecommends follow up testing of positive sera with both AK-3 and MPO-ANCA enzyme immunoassays. As many as 5% serumsamples are positive only by EIA. Ref. AM J Clin [id number];111:507-513. SS-A IgG antibody assayOrder ed By: Marjan Rasmussen on 08-13-2024 SS-A/Ro IgG Antibody < 0.2 AI 0.0-0.9 [facility] Comment on above: Previous reported re sult: TNP AIEdited by: MICHEAL on 08/14/24:1508 AMENDED REPORT 08/14/24 1508 Anti-SS-A previously reported as: Test not performed SS-B IgG antibody assayOrder ed By: Marjan Rasmussen on 08-13-2024 SS-B/La IgG Antibody < 0.2 AI 0.0-0.9 [facility] Comment on above: Previous reported re sult: TNP AIEdited by: MICHEAL on 08/14/24:1508 AMENDED REPORT 08/14/24 1508 Anti-SS-B previously reported as: Test not performed Serum DNA double strand anti body assay (units/volume)Ordered By: Marjan Rasmussen on 08-13-2024 DNA double strand Ab Qn (S) 1 [IU]/mL 0-9 [facility] Comment on above: Negative <5 Equivoca l 5 - 9 Positive >9Performed at: [facility] [place], [place] [id number] Director: Petr Arzola PhD, Phone: [phone] Serum classic neutrophil cyt oplasmic antibody assay (units/volume)Ordered By: Marjan Rasmussen on 08-13-2024 Neutrophil cytoplasmic Ab.classic Qn (S) <1:20 titer Neg:<1:20 [facility] Serum or plasma C reactive p rotein measurement (mass/volume)Ordered By: Marjan Rasmussen on 08-13-2024 CRP [Mass/Vol] mg/L 0.0-3.0 [facility] Serum or plasma actin IgG an tibody assay (units/volume)Ordered By: Marjan Rasmussen on 08-13-2024 Actin IgG Qn 19 Units 0-19 [facility] Comment on above: Negative 0 - 19 Weak positive 20 - 30 Moderate to strong positive >30 Actin Antibodies are found in 52-85% of patients with autoimmune hepatitis or chronic active hepatitis and in 22% of patients with primary biliary cirrhosis. Serum or plasma angiotensin converting enzyme measurement (enzymatic activity/volume)Ordered By: Marjan Rasmussen on 08-13-2024 Angiotensin converting enzyme [Catalytic activity/Vol] 21 U/L 14-82 [facility] Serum or plasma cyclic citru llinated peptide IgG antibody assay (units/volume)Ordered By: Marjan Rasmussen on 08-13-2024 Cyclic citrullinated peptide IgG Qn 18 units 0-19 [facility] Comment on above: Negative <20 Weak po sitive 20 - 39 Moderate positive 40 - 59 Strong positive >59Performed at: [facility] [address] [id number] Director: Petr Arzola PhD, Phone: [phone] Serum perinuclear neutrophil cytoplasmic antibody titer by immunofluorescenceOrdered By: Marjan Rasmussen on 08-13-2024 Neutrophil cytoplasmic Ab.perinuclear IF (S) [Titer] <1:20 titer Neg:<1:20 [facility] Comment on above: The presence of posi tive fluorescence exhibiting P-ANCA orC-ANCA patterns alone is not specific for the diagnosis ofWegener's Granulomatosis (WG) or microscopic polyangiitis.Decisions about treatment should not be based solely onANCA IFA results. The [employer] Consensusrecommends follow up testing of positive sera with both AK-3 and MPO-ANCA enzyme immunoassays. As many as 5% serumsamples are positive only by EIA. Ref. AM J Clin [id number];111:507-513. Chest without Contraston Chest without Contrast Normal [facility] Bedside Glucoseon 07-29-2024 FINGERSTICK GLU 167 mg/dL High 74-106 [facility] Comment on above: Result Comment: HELDER GEMENT OF PATIENT CARE PER NURSING PROTOCOL Performed By: #### L 501.080 ####[facility] [address] [place], [address] FINGERSTICK GLU 152 mg/dL High 74-106 [facility] Comment on above: Result Comment: HELDER GEMENT OF PATIENT CARE PER NURSING PROTOCOL Performed By: #### L 501.080 ####[facility] [address] [place], [place], [address] Discharge Instructionon 07-18 Discharge Instruction Normal [facility] Glucose measurement at [facility] deOrdered By: Avinash Lombardi on 07-29-2024 [facility] mg/dL High 74-106 [facility] Comment on above: MANAGEMENT OF PATIEN T CARE PER NURSING PROTOCOL Glucose [Mass/Vol] 167 mg/dL High 74-106 [facility] Comment on above: MANAGEMENT OF PATIEN T CARE PER NURSING PROTOCOL MR/POSTOP.ANEon 07-29-2024 MR/POSTOP.ANE Normal [facility] MR/AXVURKCC1gk 07-29-2024 MR/POSTOPAN2 Normal [facility] Operative Reporton Operative Report Normal [facility] Surgery Specimen Level Jesse 07-29-2024 Surgery Specimen Level IV Normal [facility] Comment on above: Performed By: #### P SUIV ####[facility] [address] [place], [address] 12 Lead EKGon 07-17-2024 12 Lead EKG Normal [facility] Basic Metabolic Profile (BMP )on 07-17-2024 BUN/CRE 11.5 RATIO Normal 10-20 [facility] Comment on above: Performed By: #### L 100.0500, L500.2500, L501.9520, L501.9985 ####[facility] [address] [place], [address] CA,Total 8.9 mg/dL Normal 8.5-10.1 [facility] Comment on above: Performed By: #### L 100.0500, L500.2500, L501.9520, L501.9985 ####[facility] [address] [place], [address] Chloride [Moles/Vol] 107 mmol/L Normal 98-107 [facility] Comment on above: Performed By: #### L 100.0500, L500.2500, L501.9520, L501.9985 ####[facility] [address] [place], [address] CO2 [Moles/Vol] 26.0 mmol/L Normal 21.0-32.0 [facility] Comment on above: Performed By: #### L 100.0500, L500.2500, L501.9520, L501.9985 ####[facility] [address] [place], [address] Creatinine [Mass/Vol] 1.31 mg/dL High 0.70-1.30 [facility] Comment on above: Result Comment: The validity of the calculated GFR GFRAA in patients over70 years has not been determined. Clinical correlation isessential. Performed By: #### L 100.0500, L500.2500, L501.9520, L501.9985 ####[facility] [address] [place], [address] EST GFR - AA 69 mL/min Normal >60 [facility] Comment on above: Result Comment: Afri can [place] GFR Calc Performed By: #### L 100.0500, L500.2500, L501.9520, L501.9985 ####[facility] [address] [place], [address] GAP 6 Normal 5-15 [facility] Comment on above: Performed By: #### L 100.0500, L500.2500, L501.9520, L501.9985 ####[facility] [address] [place], [address] GFR/1.73 sq M.predicted among non-blacks MDRD (S/P/Bld) [Vol rate/Area] 57 mL/min/{1.73_m2} Low >60 [facility] Comment on above: Result Comment: Non- GFR Calc Performed By: #### L 100.0500, L500.2500, L501.9520, L501.9985 ####[facility] [address] [place], [address] Glucose [Mass/Vol] 133 mg/dL High 74-106 [facility] Comment on above: Result Comment: Fast ing Glucose result greater than or equal to 126 mg/dLsuggests DIABETES MELLITUS per A.D.A. criteria. Performed By: #### L 100.0500, L500.2500, L501.9520, L501.9985 ####[facility] [address] [place], [address] Potassium [Moles/Vol] 3.8 mmol/L Normal 3.5-5.1 [facility] Comment on above: Performed By: #### L 100.0500, L500.2500, L501.9520, L501.9985 ####[facility] [address] [place], [address] Sodium [Moles/Vol] 139 mmol/L Normal 136-145 [facility] Comment on above: Performed By: #### L 100.0500, L500.2500, L501.9520, L501.9985 ####[facility] [address] [place], [address] Urea nitrogen [Mass/Vol] 15 mg/dL Normal 7-18 [facility] Comment on above: Performed By: #### L 100.0500, L500.2500, L501.9520, L501.9985 ####[facility] [address] [place], [address] Blood urea nitrogen (BUN)/cr eatinine ratioOrdered By: Jeremiah Curtis on 07-17-2024 Urea nitrogen/Creatinine [Mass ratio] 11.5 mg/mg 10-20 [facility] CBC-Complete Blood Cnt No Di ffon 07-17-2024 Erythrocyte distribution width (RBC) [Ratio] 13.2 % Normal 11.6-14.6 [facility] Comment on above: Performed By: #### L 100.0500, L500.2500, L501.9520, L501.9985 ####[facility] [address] [place], [address] Hematocrit (Bld) [Volume fraction] 48.2 % Normal 40-54 [facility] Comment on above: Performed By: #### L 100.0500, L500.2500, L501.9520, L501.9985 ####[facility] [address] [place], [address] Hemoglobin (Bld) [Mass/Vol] 15.4 g/dL Normal 13.0-16.5 [facility] Comment on above: Performed By: #### L 100.0500, L500.2500, L501.9520, L501.9985 ####[facility] [address] [place], [address] MCH (RBC) [Entitic mass] 30.6 pg Normal 27.0-32.0 [facility] Comment on above: Performed By: #### L 100.0500, L500.2500, L501.9520, L501.9985 ####[facility] [address] [place], [address] MCHC (RBC) [Mass/Vol] 32.0 g/dL Normal 32-36 [facility] Comment on above: Performed By: #### L 100.0500, L500.2500, L501.9520, L501.9985 ####[facility] [address] [place], [address] MCV (RBC) [Entitic vol] 95.8 fL High 80-94 [facility] Comment on above: Performed By: #### L 100.0500, L500.2500, L501.9520, L501.9985 ####[facility] [address] [place], [address] Platelet mean volume (Bld) [Entitic vol] 10.2 fL Normal 6.2-12.0 [facility] Comment on above: Performed By: #### L 100.0500, L500.2500, L501.9520, L501.9985 ####[facility] [address] [place], [address] Platelets (Bld) [#/Vol] 230 10*3/uL Normal 150-450 [facility] Comment on above: Performed By: #### L 100.0500, L500.2500, L501.9520, L501.9985 ####[facility] [address] [place], [address] RBC (Bld) [#/Vol] 5.03 10*6/uL Normal 4.6-6.2 [facility] Comment on above: Performed By: #### L 100.0500, L500.2500, L501.9520, L501.9985 ####[facility] [address] [place], [address] RDW SD 47.5 fl High 35.1-43.9 [facility] Comment on above: Performed By: #### L 100.0500, L500.2500, L501.9520, L501.9985 ####[facility] [address] [place], [address] WBC (Bld) [#/Vol] 10.1 10*3/uL Normal 4.4-11.0 [facility] Comment on above: Performed By: #### L 100.0500, L500.2500, L501.9520, L501.9985 ####[facility] [address] [place], [place], [id number] Carbon dioxide measurementOr dered By: Jeremiah Curtis on 07-17-2024 CO2 [Moles/Vol] 26.0 mmol/L 21.0-32.0 [facility] Chloride measurementOrdered By: Jeremiah Curtis on 07-17-2024 Chloride [Moles/Vol] 107 mmol/L 98-107 [facility] Erythrocyte distribution wid th ratioOrdered By: janettejustine Counts Include [facility] on 07-17-2024 Erythrocyte distribution width (RBC) [Ratio] 13.2 % 11.6-14.6 [facility] Erythrocyte distribution wid th standard deviationOrdered By: [facility] on 07-17-2024 Erythrocyte distribution width (RBC) [Entitic vol] 47.5 fL High 35.1-43.9 [facility] Erythrocyte distribution width (RBC) [Ratio] 47.5 fl High 35.1-43.9 [facility] Estimated glomerular filtrat ion rate (GFR) AmericanOrdered By: Jeremiah Curtis on 07-17-2024 Estimated GFR (MDRD) Amer 69 mL/min >60 [facility] Comment on above: GFR Calc Glomerular filtration rate ( GFR) estimationOrdered By: Jeremiah Curtis on 07-17-2024 Estimated GFR (MDRD) Non-Af Amer 57 mL/min Low >60 [facility] Comment on above: Non- GFR Calc GFR/1.73 sq M.predicted among non-blacks MDRD (S/P/Bld) [Vol rate/Area] 57 mL/min/{1.73_m2} Low >60 [facility] Comment on above: Non- GFR Calc Glucose measurementOrdered B y: Jeremiah Curtis on 07-17-2024 Glucose [Mass/Vol] 133 mg/dL High 74-106 [facility] Comment on above: Fasting Glucose resu lt greater than or equal to 126 mg/dL suggests DIABETES MELLITUS per A.D.A. criteria. Hematocrit Auto (Bld) [Volum e fraction]Ordered By: Jeremiah Curtis on 07-17-2024 Hematocrit (Bld) [Volume fraction] 48.2 % 40-54 [facility] Hemoglobin A1con 07-17-2024 HbA1c (Bld) [Mass fraction] 7.7 % High 3.8-5.6 [facility] Comment on above: Result Comment: Norm al < 5.7 % Prediabetic 5.7 - 6.4 % Diabetic >or= 6.5 % Please note range changes. Performed By: #### L 100.0500, L500.2500, L501.9520, L501.9985 ####[facility] [address] [place], [place], [address] Hemoglobin A1c percentageOrd ered By: Jeremiah Curtis on 07-17-2024 HbA1c (Bld) [Mass fraction] 7.7 % High 3.8-5.6 [facility] Comment on above: Normal < 5.7 % Predi abetic 5.7 - 6.4 % Diabetic >or= 6.5 % Please note range changes. Hemoglobin measurementOrdere d By: Jeremiah Curtis on 07-17-2024 Hemoglobin (Bld) [Mass/Vol] 15.4 g/dL 13.0-16.5 [facility] MCV (mean corpuscular volume ) determinationOrdered By: Jeremiah Curtis on 07-17-2024 MCV (RBC) [Entitic vol] 95.8 fL High 80-94 [facility] MR/PAT.ANEon 07-17-2024 MR/PAT.ANE Normal [facility] Mean corpuscular hemoglobin (MCH) determinationOrdered By: Jeremiah Curtis on 07-17-2024 MCH (RBC) [Entitic mass] 30.6 pg 27.0-32.0 [facility] Mean corpuscular hemoglobin concentration (MCHC) determinationOrdered By: Jeremiah Curtis on 07-17-2024 MCHC (RBC) [Mass/Vol] 32.0 g/dL 32-36 [facility] Mean platelet volume determi nationOrdered By: Jeremiah Curtis on 07-17-2024 Platelet mean volume (Bld) [Entitic vol] 10.2 fL 6.2-12.0 [facility] Platelet countOrdered By: Vikram Curtis on 07-17-2024 Platelets (Bld) [#/Vol] 230 10*3/uL 150-450 [facility] Potassium measurementOrdered By: Jeremiah Curtis on 07-17-2024 Potassium [Moles/Vol] 3.8 mmol/L 3.5-5.1 [facility] RBC Auto (Bld) [#/Vol]Ordere d By: Jeremiah Curtis on 07-17-2024 RBC (Bld) [#/Vol] 5.03 10*6/uL 4.6-6.2 [facility] Serum anion gap measurementO rdered By: Jeremiah Curtis on 07-17-2024 Anion gap [Moles/Vol] 6 mmol/L 5-15 [facility] Serum or plasma calcium meño urement (mass/volume)Ordered By: Jeremiah Curtis on 07-17-2024 Calcium [Mass/Vol] 8.9 mg/dL 8.5-10.1 [facility] Serum or plasma creatinine m easurement (mass/volume)Ordered By: Jeremiah Curtis on 07-17-2024 Creatinine [Mass/Vol] 1.31 mg/dL High 0.70-1.30 [facility] Comment on above: The validity of the calculated GFR & GFRAA in patients over 70 years has not been determined. Clinical correlation is essential. Serum or plasma thyroid stim ulating hormone (TSH) measurement (units/volume)Ordered By: thierry Curtis on 07-17-2024 TSH Qn 3.170 uIU/mL 0.358-3.74 0 [facility] Serum or plasma urea nitroge n measurement (mass/volume)Ordered By: Jeremiah Curtis on 07-17-2024 Urea nitrogen [Mass/Vol] 15 mg/dL 7-18 [facility] Sodium levelOrdered By: Maria Elena crosby Ever on 07-17-2024 Sodium [Moles/Vol] 139 mmol/L 136-145 [facility] TSH QnOrdered By: [facility] on 07-17-2024 Thyroid Stimulating Hormone (TSH) 3.170 uIU/mL 0.358-3.74 0 [facility] Thyroid Stim Hormone (TSH)on 07-17-2024 TSH 3.170 uIU/mL Normal 0.358-3.74 0 [facility] Comment on above: Performed By: #### L 100.0500, L500.2500, L501.9520, L501.9985 ####[facility] [address] [place], [place], [id number] White blood cell (WBC) count Ordered By: Jeremiah Curtis on 07-17-2024 WBC (Bld) [#/Vol] 10.1 10*3/uL 4.4-11.0 [facility] PT D/C Summary (1)on 025 PT D/C Summary (1) Normal [facility] Stress Reporton 06-02-2024 Stress Report Normal [facility] Echo Completeon 05-29-2024 Echo Complete Normal [facility] CBC W/Diff, Automatedon PATH REV Reviewed Normal [facility] Comment on above: Result Comment: REAC TIVE LYMPHOCYTES PRESENTClinical correlation suggested.Angelo Thomas D.O. 05/25/24 AMENDED REPORT 05/25/24 1438 PATH REV previously reported as: October rajani Performed By: #### L 500.2500, L300.3900, L300.4310, L100.0100 ####[facility] [address] [place], [address] OVon 05-24-2024 [facility] ----- GRACIE LEMONS ([id number]) 1950 M Date Time Provider Department 05/24/24 1:30 PM CHRISTOFER ALSTON [facility] During your visit today, we recorded the following information about you: Temperature Pulse Respiration Blood pressure 97.8 degrees 80/minute 16/minute 118/66 Weight 98.3 kg Christofer Alston APRN.HOTEL OR MOTEL MANAGER 05/24/2024 1:59 PM Signed This note was created using PROSimity. Subjective Gracie Lemons is a 74 year [...] discussion patient was agreeable to go to [place] emergency department for evaluation. Christofer Alston APRN.YVETTE Allergies As of Date: 05/24/2024 Noted Allergy Reaction PENICILLINS 04/04/2005 TYLENOL (ACETAMINOPHEN) 04/04/2005 Date Reviewed: 05/24/2024 Reviewed by: Christofer Alston APRN.HOTEL OR MOTEL MANAGER - Fully Assessed Reason for Visit: Facial [...] adalimumab 10 mg/0.1 mL subcutaneous syringe kit (HUMIRA (CF)) Inject subcutaneously. - LOVASTATIN 20 MG [...] Status:Closed by CHRISTOFER ALSTON on 05/24/24 Normal [facility] Emergency Department Summary on 05-24-2024 Emergency Department Summary Normal [facility] 12 Lead EKGon 05-22-2024 12 Lead EKG Normal [facility] Absolute neutrophil countOrd ered By: ED PROVIDER on 05-22-2024 Neutrophils (Bld) [#/Vol] 8.7 10*3/uL High 2.0-7.7 [facility] Bacteria LM.HPF (Urine sed) [#/Area]Ordered By: Chito Munoz on 05-22-2024 Urine Bacteria RARE /hpf None Seen [facility] Basic Metabolic Profile (BMP )on 05-22-2024 BUN/CRE 9.6 RATIO Low 10-20 [facility] Comment on above: Performed By: #### L 500.2500, L300.3900, L300.4310, L100.0100 ####[facility] [address] [place], [address] CA,Total 9.0 mg/dL Normal 8.5-10.1 [facility] Comment on above: Performed By: #### L 500.2500, L300.3900, L300.4310, L100.0100 ####[facility] [address] [place], [address] Chloride [Moles/Vol] 103 mmol/L Normal 98-107 [facility] Comment on above: Performed By: #### L 500.2500, L300.3900, L300.4310, L100.0100 ####[facility] [address] [place], [address] CO2 [Moles/Vol] 24.0 mmol/L Normal 21.0-32.0 [facility] Comment on above: Performed By: #### L 500.2500, L300.3900, L300.4310, L100.0100 ####[facility] [address] [place], [address] Creatinine [Mass/Vol] 1.25 mg/dL Normal 0.70-1.30 [facility] Comment on above: Result Comment: The validity of the calculated GFR GFRAA in patients over70 years has not been determined. Clinical correlation isessential. Performed By: #### L 500.2500, L300.3900, L300.4310, L100.0100 ####[facility] [address] [place], [address] EST GFR - AA 73 mL/min Normal >60 [facility] Comment on above: Result Comment: Afri can [place] GFR Calc Performed By: #### L 500.2500, L300.3900, L300.4310, L100.0100 ####[facility] [address] [place], [address] GAP 8 Normal 5-15 [facility] Comment on above: Performed By: #### L 500.2500, L300.3900, L300.4310, L100.0100 ####[facility] [address] [place], [address] GFR/1.73 sq M.predicted among non-blacks MDRD (S/P/Bld) [Vol rate/Area] 60 mL/min/{1.73_m2} Normal >60 [facility] Comment on above: Result Comment: Non- GFR Calc Performed By: #### L 500.2500, L300.3900, L300.4310, L100.0100 ####[facility] [address] [place], [address] Glucose [Mass/Vol] 173 mg/dL High 74-106 [facility] Comment on above: Result Comment: Fast ing Glucose result greater than or equal to 126 mg/dLsuggests DIABETES MELLITUS per A.D.A. criteria. Performed By: #### L 500.2500, L300.3900, L300.4310, L100.0100 ####[facility] [address] [place], [address] Potassium [Moles/Vol] 3.5 mmol/L Normal 3.5-5.1 [facility] Comment on above: Performed By: #### L 500.2500, L300.3900, L300.4310, L100.0100 ####[facility] [address] [place], [address] Sodium [Moles/Vol] 135 mmol/L Low 136-145 [facility] Comment on above: Performed By: #### L 500.2500, L300.3900, L300.4310, L100.0100 ####[facility] [address] [place], [address] Urea nitrogen [Mass/Vol] 12 mg/dL Normal 7-18 [facility] Comment on above: Performed By: #### L 500.2500, L300.3900, L300.4310, L100.0100 ####[facility] [address] [place], [place], [id number] Basophil percentageOrdered B y: ED PROVIDER on 05-22-2024 Basophils/100 WBC (Bld) 0.5 % 0-1 [facility] Bedside Glucoseon 05-22-2024 FINGERSTICK GLU 178 mg/dL High 74-106 [facility] Comment on above: Result Comment: HELDER ADKINS OF PATIENT CARE PER NURSING PROTOCOL Performed By: #### L 501.080 ####[facility] [address] [place], [place], [id number] Bilirubin Test strip Ql (U)O rdered By: Chito Munoz on 05-22-2024 Bilirubin Ql (U) Negative Negative [facility] Blood urea nitrogen (BUN)/cr eatinine ratioOrdered By: ED PROVIDER on 05-22-2024 Urea nitrogen/Creatinine [Mass ratio] 9.6 mg/mg Low 10-20 [facility] CTA Head AND Neck W/ Contras ton 05-22-2024 CTA Head AND Neck W/ Contrast Normal [facility] Carbon dioxide measurementOr dered By: ED PROVIDER on 05-22-2024 CO2 [Moles/Vol] 24.0 mmol/L 21.0-32.0 [facility] Chest 1 View (Portable)on Chest 1 View (Portable) Normal [facility] Chloride measurementOrdered By: ED PROVIDER on 05-22-2024 Chloride [Moles/Vol] 103 mmol/L 98-107 [facility] Emergency Department Summary on 05-22-2024 Emergency Department Summary Normal [facility] Eosinophil percentageOrdered By: ED PROVIDER on 05-22-2024 Eosinophils/100 WBC (Bld) 0.8 % 0-5 [facility] Epithelial cells.renal LM.HP F (Urine sed) [#/Area]Ordered By: Chito Munoz on 05-22-2024 Urine Renal Epithelial Cells 0-5 SEEN /hpf 0-5 [facility] Epithelial cells.squamous LM Ql (Urine sed)Ordered By: Chito Munoz on 12-06-2024 Epithelial cells.squamous LM.HPF (Urine sed) [#/Area] 0 /[HPF] 0-5 [facility] Erythrocyte distribution wid th ratioOrdered By: ED PROVIDER on 05-22-2024 Erythrocyte distribution width (RBC) [Ratio] 13.1 % 11.6-14.6 [facility] Erythrocyte distribution wid th standard deviationOrdered By: ED PROVIDER on 05-22-2024 Erythrocyte distribution width (RBC) [Entitic vol] 45.0 fL High 35.1-43.9 [facility] Estimated glomerular filtrat ion rate (GFR) AmericanOrdered By: ED PROVIDER on 05-22-2024 Estimated GFR (MDRD) Amer 73 mL/min >60 [facility] Comment on above: GFR Calc Glomerular filtration rate ( GFR) estimationOrdered By: ED PROVIDER on 05-22-2024 Estimated GFR (MDRD) Non-Af Amer 60 mL/min >60 [facility] Comment on above: Non- GFR Calc Glucose Ql (U)Ordered By: Ross Munoz on 05-22-2024 Glucose (U) [Mass/Vol] 1000 mg/dL High Normal [facility] Glucose measurementOrdered B y: ED PROVIDER on 05-22-2024 Glucose [Mass/Vol] 173 mg/dL High 74-106 [facility] Comment on above: Fasting Glucose resu lt greater than or equal to 126 mg/dL suggests DIABETES MELLITUS per A.D.A. criteria. Glucose measurement at [facility] deOrdered By: ED PROVIDER on 05-22-2024 Bedside Glucose (Misc Panel) 178 mg/dL High 74-106 [facility] Comment on above: MANAGEMENT OF PATIEN T CARE PER NURSING PROTOCOL Hematocrit Auto (Bld) [Volum e fraction]Ordered By: ED PROVIDER on 05-22-2024 Hematocrit (Bld) [Volume fraction] 44.3 % 40-54 [facility] Hemoglobin measurementOrdere d By: ED PROVIDER on 05-22-2024 Hemoglobin (Bld) [Mass/Vol] 15.2 g/dL 13.0-16.5 [facility] Immature granulocytes/100 WB C Auto (Bld)Ordered By: ED PROVIDER on 05-22-2024 Immature granulocytes/100 WBC (Bld) 0.500 % 0.0-0.9 [facility] Comment on above: IG% - Immature Granu locytes (promyelocytes, myelocytes and metamyelocytes) > 1% indicates that a LEFT SHIFT is Present. Influenza virus A and B and SARS-CoV-2 (COVID-19) and Respiratory syncytial virus RNAOrdered By: Chito Munoz on 05-22-2024 SARS-CoV-2 (COVID-19) RNA JIHAN+probe Ql (Unsp spec) [facility] International normalized rat io (INR) calculationOrdered By: ED PROVIDER on 05-22-2024 INR Coag (Bld) [Relative time] 1.1 {INR} [facility] Ketones Test strip Ql (U)Ord ered By: Chito Munoz on 05-22-2024 Ketones Ql (U) 15 mg/dl High Negative [facility] Laboratory - Hematology and Cell countsOrdered By: ED PROVIDER on 05-22-2024 Anisocytosis Ql (Bld) RARE [facility] Lymphocytes Auto (Unsp spec) [#/Vol]Ordered By: ED PROVIDER on 05-22-2024 Lymphocytes (Bld) [#/Vol] 2.47 10*3/uL 0.83-4.51 [facility] Lymphocytes/100 WBC Auto (Un sp spec)Ordered By: ED PROVIDER on 05-22-2024 Lymphocytes/100 WBC (Bld) 18.8 % Low 19-41 [facility] M100.678on 05-22-2024 M100.678 Pending SARS-CoV-2 (COVID 19) Negative INFLUENZA A Negative INFLUENZA B Negative RSV PCR Negative Normal [facility] Comment on above: Performed By: #### M 100.678 ####[facility] [address] [place], [address] MCV (mean corpuscular volume ) determinationOrdered By: ED PROVIDER on 05-22-2024 MCV (RBC) [Entitic vol] 94.5 fL High 80-94 [facility] Macrocytes Ql (Bld)Ordered B y: ED PROVIDER on 05-22-2024 Macrocytosis RARE [facility] Manual differential comment Cain (Bld) [Interp]Ordered By: ED PROVIDER on 05-22-2024 Differential Comment SEE COMMENT [facility] Comment on above: MONOCYTOSIS NOTED Mean corpuscular hemoglobin (MCH) determinationOrdered By: ED PROVIDER on 05-22-2024 MCH (RBC) [Entitic mass] 32.4 pg High 27.0-32.0 [facility] Mean corpuscular hemoglobin concentration (MCHC) determinationOrdered By: ED PROVIDER on 05-22-2024 MCHC (RBC) [Mass/Vol] 34.3 g/dL 32-36 [facility] Mean platelet volume determi nationOrdered By: ED PROVIDER on 05-22-2024 Platelet mean volume (Bld) [Entitic vol] 10.7 fL 6.2-12.0 [facility] Microscopic analysis of urin e for red blood cells (RBC)Ordered By: Chito Munoz on 05-22-2024 Urine RBC 0-5 SEEN /hpf 0-5 [facility] Monocyte percentageOrdered B y: ED PROVIDER on 05-22-2024 Monocytes/100 WBC (Bld) 13.1 % High 0-10 [facility] Mucus LM Ql (Urine sed)Order ed By: Chito Munoz on 05-22-2024 Mucus Ql (Urine sed) 0 SEEN /hpf [facility] Neutrophil percentageOrdered By: ED PROVIDER on 05-22-2024 Neutrophils/100 WBC (Bld) 66.3 % 47-70 [facility] Nitrite Test strip Ql (U)Ord ered By: Chito Munoz on 05-22-2024 Nitrite Ql (U) Negative Negative [facility] Nucleated red blood cell per centageOrdered By: ED PROVIDER on 05-22-2024 Nucleated RBC/100 WBC (Bld) [Ratio] 0 % 0-5 [facility] Partial Thromboplast Timeon 05-22-2024 aPTT Coag (Bld) [Time] 27.1 s Normal 24.1-36.2 [facility] Comment on above: Performed By: #### L 500.2500, L300.3900, L300.4310, L100.0100 ####[facility] [address] [place], [place], [phone] Pathologist review Cain (Unsp spec) [Interp]Ordered By: Chito Munoz on 05-22-2024 Differential Pathologist's Review Reviewed [facility] Comment on above: Previous reported re sult: Luisa gerard Edited by: JAMIE on 05/25/24:1438REACTIVE LYMPHOCYTES PRESENTClinical correlation suggested.Angelo Thomas D.O. 05/25/24 AMENDED REPORT 05/25/24 1438 PATH REV previously reported as: Luisa gerard Platelet countOrdered By: ED PROVIDER on 05-22-2024 Platelets (Bld) [#/Vol] 182 10*3/uL 150-450 [facility] Platelets LM Ql (Bld)Ordered By: ED PROVIDER on 05-22-2024 Platelet Estimate ADEQUATE ADEQ [facility] Potassium measurementOrdered By: ED PROVIDER on 05-22-2024 Potassium [Moles/Vol] 3.5 mmol/L 3.5-5.1 [facility] Protein Test strip Ql (U)Ord ered By: Chito Munoz on 05-22-2024 Protein Ql (U) 15 mg/dl High Negative [facility] Prothrombin Time w/INRon INR Coag (PPP) [Relative time] 1.1 {INR} Normal [facility] Comment on above: Performed By: #### L 500.2500, L300.3900, L300.4310, L100.0100 ####[facility] [address] [place], [address] PT Coag (PPP) [Time] 14.1 s Normal 11.7-14.9 [facility] Comment on above: Performed By: #### L 500.2500, L300.3900, L300.4310, L100.0100 ####[facility] [address] [place], [address] Prothrombin timeOrdered By: ED PROVIDER on 05-22-2024 PT Coag (PPP) [Time] 14.1 s 11.7-14.9 [facility] RBC Auto (Bld) [#/Vol]Ordere d By: ED PROVIDER on 05-22-2024 RBC (Bld) [#/Vol] 4.69 10*6/uL 4.6-6.2 [facility] RBC morphology finding Nom ( Bld)Ordered By: ED PROVIDER on 05-22-2024 Red Blood Cell Morphology N CHROM NORMAL NORM C&C [facility] Serum anion gap measurementO rdered By: ED PROVIDER on 05-22-2024 Anion gap [Moles/Vol] 8 mmol/L 5-15 [facility] Serum or plasma calcium meño urement (mass/volume)Ordered By: ED PROVIDER on 05-22-2024 Calcium [Mass/Vol] 9.0 mg/dL 8.5-10.1 [facility] Serum or plasma creatinine m easurement (mass/volume)Ordered By: ED PROVIDER on 05-22-2024 Creatinine [Mass/Vol] 1.25 mg/dL 0.70-1.30 [facility] Comment on above: The validity of the calculated GFR & GFRAA in patients over 70 years has not been determined. Clinical correlation is essential. Serum or plasma urea nitroge n measurement (mass/volume)Ordered By: ED PROVIDER on 05-22-2024 Urea nitrogen [Mass/Vol] 12 mg/dL 7-18 [facility] Sodium levelOrdered By: ED P MENDOZADER on 05-22-2024 Sodium [Moles/Vol] 135 mmol/L Low 136-145 [facility] Urinalysis, Completeon 05-22 BACTERIA RARE Normal None Seen [facility] Comment on above: Order Comment: CHUCKIE CTOR TO SPECIFY Performed By: #### L 400.0001 ####[facility] [address] [place], [place], [phone] EPI,RENAL 0-5 SEEN Normal 0-5 [facility] Comment on above: Order Comment: CHUCKIE CTOR TO SPECIFY Performed By: #### L 400.0001 ####[facility] [address] [place], [place], [phone] RBC 0-5 SEEN Normal 0-5 [facility] Comment on above: Order Comment: CHUCKIE CTOR TO SPECIFY Performed By: #### L 400.0001 ####[facility] [address] [place], [address] EPI,SQUAMOUS 0 SEEN Normal 0-5 [facility] Comment on above: Order Comment: CHUCKIE CTOR TO SPECIFY Performed By: #### L 400.0001 ####[facility] [address] [place], [place], [phone] Mucus Ql (Urine sed) 0 SEEN Normal [facility] Comment on above: Order Comment: CHUCKIE CTOR TO SPECIFY Performed By: #### L 400.0001 ####[facility] [address] [place], [place], [phone] WBC 0 SEEN Normal 0-5 [facility] Comment on above: Order Comment: CHUCKIE CTOR TO SPECIFY Performed By: #### L 400.0001 ####[facility] [address] [place], [place], [phone] Urine blood detectionOrdered By: Chito Munoz on 05-22-2024 Urine Occult Blood 10 /ul High Negative [facility] Urine clarityOrdered By: Khari Munoz on 05-22-2024 Clarity (U) Clear Clear [facility] Urine color determinationOrd ered By: Chito Munoz on 05-22-2024 Color (U) Yellow Yellow [facility] Urine leukocyte esterase det ection by dipstickOrdered By: Chito Munoz on 05-22-2024 Leukocyte esterase Test strip Ql (U) Negative Negative [facility] Urine pHOrdered By: Chito Munoz on 05-22-2024 pH (U) 6.0 [pH] 5.0 - 8.0 [facility] Urine specific gravity measu rementOrdered By: Chito Munoz on 05-22-2024 Specific gravity (U) [Rel density] 1.015 1.002-1.03 0 [facility] Urobilinogen Ql (U)Ordered B y: Chito Munoz on 05-22-2024 Urine Urobilinogen Normal mg/dl Normal [facility] White blood cell (WBC) count Ordered By: ED PROVIDER on 05-22-2024 WBC (Bld) [#/Vol] 13.2 10*3/uL High 4.4-11.0 [facility] White blood cell countOrdere d By: Chito Munoz on 05-22-2024 Urine WBC 0 SEEN /hpf 0-5 [facility] aPTT Coag (PPP) [Time]Ordere d By: ED PROVIDER on 05-22-2024 aPTT Coag (Bld) [Time] 27.1 s 24.1-36.2 [facility] Inital Evaluation (1) - PTon 05-21-2024 Inital Evaluation (1) - PT Normal [facility] METHYLMALONIC ACIDon 024 Methylmalonate [Moles/Vol] 0.14 nmol/mL NINF - 0.40 nmol/mL [facility] Comment on above: ADDITIONAL INFORMATION This test was developed and its performance characteristics determined by [facility] in a manner consistent with CLIA requirements. This test has not been cleared or approved by the U.S. Food and Drug Administration. Test Performed by: [place] [address] Catalyst Operator: Tristen Bear Ph.D.; CLIA# [id number] [facility] IMMUNOFIXATION SERUMon 05-12 REVIEWED BY: Barry Gudino MD [facility] Comment on above: Performed By: #### P TPTT #### [facility] (DEFAULT) [address] [place] [address] Serum Immunofixation Normal [facility] Comment on above: Result Comment: No m [...] Monoclonal Gammopathies. Arch Pathol Lab Med. 2021;146(5):575-590. doi:[id number] Performed By: #### P TPTT #### [facility] (DEFAULT) [address] [address] IMMUNOGLOBULINS IGG IGA IGMo n 05-12-2024 IgA [Mass/Vol] 320 mg/dL Normal 90-410 [facility] Comment on above: Performed By: #### X M #### [facility] (DEFAULT) [address] [address] IgG [Mass/Vol] 1072 mg/dL Normal 600-1560 [facility] Comment on above: Performed By: #### X M #### [facility] (DEFAULT) [address] [address] IgM [Mass/Vol] 81 mg/dL Normal 30-360 [facility] Comment on above: Performed By: #### X M #### [facility] (DEFAULT) [address] [address] METHYLMALONIC ACIDon 024 METHYLMALONIC ACID 0.14 nmol/mL Normal <=0.40 [facility] Comment on above: Result Comment: ADDITIONAL INFORMATION This test was developed and its performance characteristics determined by [facility] in a manner consistent with CLIA requirements. This test has not been cleared or approved by the U.S. Food and Drug Administration. Test Performed by: [facility] [place] [address] Catalyst Operator: Tristen Bear Ph.D.; CLIA# [id number] Performed By: #### F MADELEINE, FLP #### [facility] (DEFAULT) [address] [address] PROTEIN ELECTROPHORESISon Albumin [Mass/Vol] 3.8 g/dL Normal 3.5-5.0 [facility] Comment on above: Performed By: #### P TPTT #### [facility] (DEFAULT) [address] [place] [address] Alpha 1 0.2 g/dL Normal 0.2-0.4 [facility] Comment on above: Performed By: #### P TPTT #### [facility] (DEFAULT) [address] [place] [address] Alpha 2 0.8 g/dL Normal 0.5-1.0 [facility] Comment on above: Performed By: #### P TPTT #### [facility] (DEFAULT) [address] [place] [address] Beta 1.0 g/dL Normal 0.5-1.1 [facility] Comment on above: Performed By: #### P TPTT #### [facility] (DEFAULT) [address] [place] [address] Gamma 1.1 g/dL Normal 0.6-1.5 [facility] Comment on above: Performed By: #### P TPTT #### [facility] (DEFAULT) [address] [place] [address] Interpretation By: Barry Gudino MD Normal [facility] Comment on above: Performed By: #### P TPTT #### [facility] (DEFAULT) [address] [place] [address] Spe Interpretation Normal serum protein electrophoresis pattern. Normal [facility] Comment on above: Performed By: #### P TPTT #### [facility] (DEFAULT) [address] [place] [address] SPE SERUM TOTAL PROTEINon Protein [Mass/Vol] 6.9 g/dL Normal 6.4-8.3 [facility] Comment on above: Performed By: #### P TPTT #### [facility] (DEFAULT) [address] [place] [address] VITAMIN B12on 05-12-2024 Cobalamin (Vitamin B12) [Mass/Vol] 844 pg/mL 211 - 911 pg/mL [facility] Comment on above: Testing of Methylmal onic Acid and Intrinsic Factor Blocking Antibody are recommended if clinical suspicion for pernicious anemia due to B12 deficiency is high for patients with intermediate B12 levels (211 to 400 pg/mL) to rule out spurious heterophile antibodies. Interpretation and review of laboratory results Normal [facility] Cobalamin (Vitamin B12) [Mass/Vol] 844 pg/mL Normal 211-911 [facility] Comment on above: Result Comment: Test ing of Methylmalonic Acid and Intrinsic Factor Blocking Antibody are recommended if clinical suspicion for pernicious anemia due to B12 deficiency is high for patients with intermediate B12 levels (211 to 400 pg/mL) to rule out spurious heterophile antibodies. Performed By: #### F MADELEINE, FLP #### [facility] (DEFAULT) [address] [place] [address] [id number]-[id number] DOrdered By: Arianna Casas on 05-07-2024 Vitamin D 25-Hydroxy 55.7 ng/mL [facility] Comment on above: Vitamin D 25(OH) Sta tus Range Deficiency <20 ng/mL (50nmol/L) Insufficiency 20 - 30 ng/mL (50 - 75 nmol/L) Sufficiency 30 - 100 ng/mL (75 - 250 nmol/L) Toxicity >100 ng/mL (>250 nmol/L) Albumin to globulin ratioOrd ered By: Alyson Collier on 05-07-2024 Albumin/Globulin [Mass ratio] 0.9 {ratio} 0.9-2.4 [facility] Bilirubin, totalOrdered By: Alyson Collier on 05-07-2024 Bilirubin [Mass/Vol] 0.50 mg/dL 0.20-1.00 [facility] Comment on above: For patients on eltr ombopag therapy, use of Dimension [place] TBIL is not recommended. Blood urea nitrogen (BUN)/cr eatinine ratioOrdered By: Alyson Collier on 05-07-2024 Urea nitrogen/Creatinine [Mass ratio] 10.5 mg/mg 10- [facility] Carbon dioxide measurementOr dered By: Alyson Collier on 05-07-2024 CO2 [Moles/Vol] 27.0 mmol/L 21.0-32.0 [facility] Chloride measurementOrdered By: Alyson Collier on 05-07-2024 Chloride [Moles/Vol] 105 mmol/L 98-107 [facility] Comprehensive Metabolic Prof ilon 05-07-2024 Albumin [Mass/Vol] 3.3 g/dL Normal 3.2-5.0 [facility] Comment on above: Order Comment: DR.Ar miguel angel Collier WANTED CMP AND LIPIDDR CASAS WANTED [id number] Performed By: #### L 500.4100, L500.4050 ####[facility] [address] [place], [address] Albumin/Globulin [Mass ratio] 0.9 {ratio} Normal 0.9-2.4 [facility] Comment on above: Order Comment: DR.Ar miguel angel Collier WANTED CMP AND LIPIDDR CASAS WANTED [id number] Performed By: #### L 500.4100, L500.4050 ####[facility] [address] [place], [address] ALK P 62 U/L Normal 45-117 [facility] Comment on above: Order Comment: DR.Ar miguel angel Collier WANTED CMP AND LIPIDDR CASAS WANTED [id number] Performed By: #### L 500.4100, L500.4050 ####[facility] [address] [place], [address] ALT [Catalytic activity/Vol] 44 U/L Normal 16-61 [facility] Comment on above: Order Comment: DR.Ar miguel angel Collier WANTED CMP AND LIPIDDR CASAS WANTED [id number] Performed By: #### L 500.4100, L500.4050 ####[facility] [address] [place], [address] AST [Catalytic activity/Vol] 36 U/L Normal 15-37 [facility] Comment on above: Order Comment: DR.Ar miguel angel Collier WANTED CMP AND LIPIDDR CASAS WANTED [id number] Performed By: #### L 500.4100, L500.4050 ####[facility] [address] [place], [address] Bilirubin [Mass/Vol] 0.50 mg/dL Normal 0.20-1.00 [facility] Comment on above: Order Comment: DR.Ar miguel angel Collier WANTED CMP AND LIPIDDR CASAS WANTED [id number] Result Comment: For patients on eltrombopag therapy, use of Dimension [place] TBIL is not recommended. Performed By: #### L 500.4100, L500.4050 ####[facility] [address] [place], [address] BUN/CRE 10.5 RATIO Normal 10-20 [facility] Comment on above: Order Comment: DR.Ar miguel angel Collier WANTED CMP AND LIPIDDR [place] WANTED [id number] Performed By: #### L 500.4100, L500.4050 ####[facility] [address] [place], [address] CA,Total 8.9 mg/dL Normal 8.5-10.1 [facility] Comment on above: Order Comment: DR.Ar miguel angel Collier WANTED CMP AND LIPIDDR CASAS WANTED [id number] Performed By: #### L 500.4100, L500.4050 ####[facility] [address] [place], [address] Chloride [Moles/Vol] 105 mmol/L Normal 98-107 [facility] Comment on above: Order Comment: DR.Ar miguel angel Collier WANTED CMP AND LIPIDDR CASAS WANTED [id number] Performed By: #### L 500.4100, L500.4050 ####[facility] [address] [place], [address] CO2 [Moles/Vol] 27.0 mmol/L Normal 21.0-32.0 [facility] Comment on above: Order Comment: DR.Ar miguel angel Collier WANTED CMP AND LIPIDDR CASAS WANTED [id number] Performed By: #### L 500.4100, L500.4050 ####[facility] [address] [place], [address] Creatinine [Mass/Vol] 1.24 mg/dL Normal 0.70-1.30 [facility] Comment on above: Order Comment: DR.Ar miguel nagel Collier WANTED CMP AND LIPIDDR CASAS WANTED [id number] Result Comment: The validity of the calculated GFR GFRAA in patients over70 years has not been determined. Clinical correlation isessential. Performed By: #### L 500.4100, L500.4050 ####[facility] [address] [place], [address] EST GFR - AA 73 mL/min Normal >60 [facility] Comment on above: Order Comment: DR.Ar miguel angel Collier WANTED CMP AND LIPIDDR CASAS WANTED [id number] Result Comment: Afri can [place] GFR Calc Performed By: #### L 500.4100, L500.4050 ####[facility] [address] [place], [address] GAP 6 Normal 5-15 [facility] Comment on above: Order Comment: DR.Ar miguel angel Collier WANTED CMP AND LIPIDDR CASAS WANTED [id number] Performed By: #### L 500.4100, L500.4050 ####[facility] [address] [place], [address] GFR/1.73 sq M.predicted among non-blacks MDRD (S/P/Bld) [Vol rate/Area] 61 mL/min/{1.73_m2} Normal >60 [facility] Comment on above: Order Comment: DR.Ar miguel angel Collier WANTED CMP AND LIPIDDR [place] WANTED [id number] Result Comment: Non- GFR Calc Performed By: #### L 500.4100, L500.4050 ####[facility] [address] [place], [address] Globulin (S) [Mass/Vol] 3.7 g/dL Normal 2.2-4.2 [facility] Comment on above: Order Comment: DR.Ar miguel angel Collier WANTED CMP AND LIPIDDR [place]UG[place]O WANTED [id number] Performed By: #### L 500.4100, L500.4050 ####[facility] [address] [place], [address] Glucose [Mass/Vol] 170 mg/dL High 74-106 [facility] Comment on above: Order Comment: DR.Ar miguel angel Collier WANTED CMP AND LIPIDDR [place]UGUSTO WANTED [id number] Result Comment: Fast ing Glucose result greater than or equal to 126 mg/dLsuggests DIABETES MELLITUS per A.D.A. criteria. Performed By: #### L 500.4100, L500.4050 ####[facility] [address] [place], [address] Potassium [Moles/Vol] 3.9 mmol/L Normal 3.5-5.1 [facility] Comment on above: Order Comment: DR.Ar miguel angel Collier WANTED CMP AND LIPIDDR [place] WANTED [id number] Performed By: #### L 500.4100, L500.4050 ####[facility] [address] [place], [address] Sodium [Moles/Vol] 138 mmol/L Normal 136-145 [facility] Comment on above: Order Comment: DR.Ar miguel angel Collier WANTED CMP AND LIPIDDR AUGUSTO WANTED [id number] Performed By: #### L 500.4100, L500.4050 ####[facility] [address] [place], [address] T PROT 7.0 g/dL Normal 6.4-8.2 [facility] Comment on above: Order Comment: DR.Ar miguel angel Collier WANTED CMP AND LIPIDDR AUGUSTO WANTED [id number] Performed By: #### L 500.4100, L500.4050 ####[facility] [address] [place], [address] Urea nitrogen [Mass/Vol] 13 mg/dL Normal 7-18 [facility] Comment on above: Order Comment: DR.Ar miguel angel Collier WANTED CMP AND LIPIDDR AUGUSTO WANTED [id number] Performed By: #### L 500.4100, L500.4050 ####[facility] [address] [place], [address] ALB Normal 3.2-5.0 [facility] Comment on above: Result Comment: DUPL ICATE Performed By: #### L 500.4050, L506.1000, L500.4100, L501.9985 ####[facility] [address] [place], [address] ALK P Normal 45-117 [facility] Comment on above: Result Comment: DUPL ICATE Performed By: #### L 500.4050, L506.1000, L500.4100, L501.9985 ####[facility] [address] [place], [address] ALT Normal 16-61 [facility] Comment on above: Result Comment: DUPL ICATE Performed By: #### L 500.4050, L506.1000, L500.4100, L501.9985 ####[facility] [address] [place], [address] AST Normal 15-37 [facility] Comment on above: Result Comment: DUPL ICATE Performed By: #### L 500.4050, L506.1000, L500.4100, L501.9985 ####[facility] [address] [place], [address] BUN Normal 7-18 [facility] Comment on above: Result Comment: DUPL ICATE Performed By: #### L 500.4050, L506.1000, L500.4100, L501.9985 ####[facility] [address] [place], [address] BUN/CRE Normal 10-20 [facility] Comment on above: Result Comment: DUPL ICATE Performed By: #### L 500.4050, L506.1000, L500.4100, L501.9985 ####[facility] [address] [place], [address] CA,Total Normal 8.5-10.1 [facility] Comment on above: Result Comment: DUPL ICATE Performed By: #### L 500.4050, L506.1000, L500.4100, L501.9985 ####[facility] [address] [place], [address] CL Normal 98-107 [facility] Comment on above: Result Comment: DUPL ICATE Performed By: #### L 500.4050, L506.1000, L500.4100, L501.9985 ####[facility] [address] [place], [address] CO2 Normal 21.0-32.0 [facility] Comment on above: Result Comment: DUPL ICATE Performed By: #### L 500.4050, L506.1000, L500.4100, L501.9985 ####[facility] [address] [place], [address] CREAT,SERUM Normal 0.70-1.30 [facility] Comment on above: Result Comment: DUPL ICATE Performed By: #### L 500.4050, L506.1000, L500.4100, L501.9985 ####[facility] [address] [place], [address] EST GFR Normal >60 [facility] Comment on above: Result Comment: DUPL ICATE Performed By: #### L 500.4050, L506.1000, L500.4100, L501.9985 ####[facility] [address] [place], [address] EST GFR - AA Normal >60 [facility] Comment on above: Result Comment: DUPL ICATE Performed By: #### L 500.4050, L506.1000, L500.4100, L501.9985 ####[facility] [address] [place], [address] GAP Normal 5-15 [facility] Comment on above: Result Comment: DUPL ICATE Performed By: #### L 500.4050, L506.1000, L500.4100, L501.9985 ####[facility] [address] [place], [address] GLU Normal 74-106 [facility] Comment on above: Result Comment: DUPL ICATE Performed By: #### L 500.4050, L506.1000, L500.4100, L501.9985 ####[facility] [address] [place], [address] Potassium Normal 3.5-5.1 [facility] Comment on above: Result Comment: DUPL ICATE Performed By: #### L 500.4050, L506.1000, L500.4100, L501.9985 ####[facility] [address] [place], [address] T BILI Normal 0.20-1.00 [facility] Comment on above: Result Comment: DUPL ICATE Performed By: #### L 500.4050, L506.1000, L500.4100, L501.9985 ####[facility] [address] [place], [address] T PROT Normal 6.4-8.2 [facility] Comment on above: Result Comment: DUPL ICATE Performed By: #### L 500.4050, L506.1000, L500.4100, L501.9985 ####[facility] [address] [place], [address] Comprehensive Metabolic Profil Normal 136-145 [facility] Comment on above: Result Comment: DUPL ICATE Performed By: #### L 500.4050, L506.1000, L500.4100, L501.9985 ####[facility] [address] [place], [address] Estimated glomerular filtrat ion rate (GFR) AmericanOrdered By: Alyson Collier on 05-07-2024 Estimated GFR (MDRD) Amer 73 mL/min >60 [facility] Comment on above: GFR Calc Glomerular filtration rate ( GFR) estimationOrdered By: Alyson Collier on 05-07-2024 Estimated GFR (MDRD) Non-Af Amer 61 mL/min >60 [facility] Comment on above: Non- GFR Calc Glucose measurementOrdered B y: Alyson Collier on 05-07-2024 Glucose [Mass/Vol] 170 mg/dL High 74-106 [facility] Comment on above: Fasting Glucose resu lt greater than or equal to 126 mg/dL suggests DIABETES MELLITUS per A.D.A. criteria. Hemoglobin A1con 05-07-2024 HbA1c (Bld) [Mass fraction] 8.0 % High 3.8-5.6 [facility] Comment on above: Order Comment: DR.Ar miguel angel Collier WANTED CMP AND SAPPHIRE CASAS WANTED [id number] Result Comment: Norm al < 5.7 % Prediabetic 5.7 - 6.4 % Diabetic >or= 6.5 % Please note range changes. Performed By: #### L 500.4050, L506.1000, L500.4100, L501.9985 ####[facility] [id number] [place], [address] Hemoglobin A1c percentageOrd ered By: Tita Casas on 05-07-2024 HbA1c (Bld) [Mass fraction] 8.0 % High 3.8-5.6 [facility] Comment on above: Normal < 5.7 % Predi abetic 5.7 - 6.4 % Diabetic >or= 6.5 % Please note range changes. High density lipoprotein (HD L) measurementOrdered By: Alyson Collier on 05-07-2024 Cholesterol in HDL [Mass/Vol] 44 mg/dL >40 [facility] Comment on above: The drugs N-Acetylcy steine and Metamizole may falsely depress this assay. Reference Range HDL <40 mg/dL Low HDL Cholesterol HDL >or= 60 mg/dL High HDL Cholesterol Laboratory - Chemistry and C hemistry - challengeOrdered By: Alyson Collier on 05-07-2024 AST [Catalytic activity/Vol] 36 U/L 15-37 [facility] Lipid Profileon 05-07-2024 Cholesterol [Mass/Vol] 105 mg/dL Normal 200 [facility] Comment on above: Order Comment: DR.Ar miguel angel Collier WANTED CMP AND SAPPHIRE CASAS WANTED [id number] Result Comment: <200 mg/dL Desirable 200-240 mg/dL Borderline >240 mg/dL High Risk Performed By: #### L 500.4100, L500.4050 ####[facility] [id number] [place], [address] Cholesterol in HDL [Mass/Vol] 44 mg/dL Normal [facility] Comment on above: Order Comment: DR.Ar miguel angel Collier WANTED CMP AND SAPPHIRE CASAS WANTED [id number] Result Comment: The drugs N-Acetylcysteine and Metamizole may falselydepress this assay. Reference Range HDL <40 mg/dL Low HDL Cholesterol HDL >or= 60 mg/dL High HDL Cholesterol Performed By: #### L 500.4100, L500.4050 ####[facility] [id number] [place], [address] Cholesterol in LDL [Mass/Vol] 30 mg/dL Normal 0-130 [facility] Comment on above: Order Comment: DR.Ar miguel angel Collier WANTED CMP AND LIPIDDR AUGUSTO WANTED [id number] Performed By: #### L 500.4100, L500.4050 ####[facility] [id number] [place], [address] Cholesterol in VLDL [Mass/Vol] 31 mg/dL Normal 5-40 [facility] Comment on above: Order Comment: DR.Ar miguel angel Collier WANTED CMP AND LIPIDDR CASAS WANTED [id number] Performed By: #### L 500.4100, L500.4050 ####[facility] [id number] [place], [address] Triglyceride [Mass/Vol] 156 mg/dL Normal [facility] Comment on above: Order Comment: DR.Ar miguel angel Collier WANTED CMP AND LIPIDDR CASAS WANTED [id number] Result Comment: The drugs N-Acetylcysteine and Metamizole may falselydepress this assay.Serum Triglycerides Reference Interval Normal <150 mg/dL Borderline high 150 - 199 mg/dL High 200 - 499 mg/dL Very High > or = 500 mg/dL Performed By: #### L 500.4100, L500.4050 ####[facility] [address] [place], [address] HDL Normal [facility] Comment on above: Result Comment: DUPL ICATEThe drugs N-Acetylcysteine and Metamizole may falselydepress this assay. Performed By: #### L 500.4050, L506.1000, L500.4100, L501.9985 ####[facility] [address] [place], [address] TRIG Normal [facility] Comment on above: Result Comment: DUPL ICATEThe drugs N-Acetylcysteine and Metamizole may falselydepress this assay. Performed By: #### L 500.4050, L506.1000, L500.4100, L501.9985 ####[facility] [address] [place], [address] CHOL Normal 200 [facility] Comment on above: Result Comment: DUPL ICATE Performed By: #### L 500.4050, L506.1000, L500.4100, L501.9985 ####[facility] [address] [place], [address] LDL Normal 0-130 [facility] Comment on above: Result Comment: DUPL ICATE Performed By: #### L 500.4050, L506.1000, L500.4100, L501.9985 ####[facility] [address] [place], [address] VLDL Normal 5-40 [facility] Comment on above: Result Comment: DUPL ICATE Performed By: #### L 500.4050, L506.1000, L500.4100, L501.9985 ####[facility] [id number] [place], [address] Low density lipoprotein (LDL ) cholesterol measurementOrdered By: Alyson Collier on 05-07-2024 Cholesterol in LDL [Mass/Vol] 30 mg/dL 0-130 [facility] Office Visit Reporton 2023 Office Visit Report Normal [facility] Potassium measurementOrdered By: Alyson Collier on 05-07-2024 Potassium [Moles/Vol] 3.9 mmol/L 3.5-5.1 [facility] Serum anion gap measurementO rdered By: Alyson Collier on 05-07-2024 Anion gap [Moles/Vol] 6 mmol/L 5-15 [facility] Serum globulin measurementOr dered By: Alyson Collier on 05-07-2024 Globulin (S) [Mass/Vol] 3.7 g/dL 2.2-4.2 [facility] Serum or plasma alanine gandhi otransferase (ALT) measurementOrdered By: Alyson Collier on 05-07-2024 ALT [Catalytic activity/Vol] 44 U/L 16-61 [facility] Serum or plasma albumin meño urement (mass/volume)Ordered By: Alyson Collier on 05-07-2024 Albumin [Mass/Vol] 3.3 g/dL 3.2-5.0 [facility] Serum or plasma alkaline adam sphatase measurementOrdered By: Alyson Collier on 05-07-2024 ALP [Catalytic activity/Vol] 62 U/L 45-117 [facility] Serum or plasma calcium meño urement (mass/volume)Ordered By: Alyson Collier on 05-07-2024 Calcium [Mass/Vol] 8.9 mg/dL 8.5-10.1 [facility] Serum or plasma cholesterol measurement (mass/volume)Ordered By: Alyson Collier on 05-07-2024 Cholesterol [Mass/Vol] 105 mg/dL <200 [facility] Comment on above: <200 mg/dL Desirable 200-240 mg/dL Borderline >240 mg/dL High Risk Serum or plasma creatinine m easurement (mass/volume)Ordered By: Alyson Collier on 05-07-2024 Creatinine [Mass/Vol] 1.24 mg/dL 0.70-1.30 [facility] Comment on above: The validity of the calculated GFR & GFRAA in patients over 70 years has not been determined. Clinical correlation is essential. Serum or plasma urea nitroge n measurement (mass/volume)Ordered By: Alyson Collier on 05-07-2024 Urea nitrogen [Mass/Vol] 13 mg/dL 7-18 [facility] Sodium levelOrdered By: Mikel Collier on 05-07-2024 Sodium [Moles/Vol] 138 mmol/L 136-145 [facility] Total proteinOrdered By: Rodrigo Collier on 05-07-2024 Protein [Mass/Vol] 7.0 g/dL 6.4-8.2 [facility] Triglycerides measurementOrd ered By: Alyson Collier on 05-07-2024 Triglyceride [Mass/Vol] 156 mg/dL <199 [facility] Comment on above: The drugs N-Acetylcy steine and Metamizole may falsely depress this assay.Serum Triglycerides Reference Interval Normal <150 mg/dL Borderline high 150 - 199 mg/dL High 200 - 499 mg/dL Very High > or = 500 mg/dL Very low density lipoprotein (VLDL) cholesterol measurementOrdered By: Alyson Collier on 05-07-2024 VLDL Cholesterol 31 mg/dL 5-40 [facility] Vitamin D,25 Hydroxyon 05-07 Vitamin D 25-OH 55.7 ng/mL Normal [facility] Comment on above: Result Comment: Makeda min D 25(OH) Status Range Deficiency <20 ng/mL (50nmol/L) Insufficiency 20 - 30 ng/mL (50 - 75 nmol/L) Sufficiency 30 - 100 ng/mL (75 - 250 nmol/L) Toxicity >100 ng/mL (>250 nmol/L) Performed By: #### L 500.4050, L506.1000, L500.4100, L501.9985 ####[facility] [id number] [place], [address] Cardiology Visit Reporton Cardiology Visit Report Normal [facility] Absolute lymphocyte countOrd ered By: Tita Casas on 09-19-2023 Lymphocytes Auto (Unsp spec) [#/Vol] 3.11 10*3/uL 0.83-4.51 [facility] Automated lymphocyte count a s percentage of total leukocytesOrdered By: Tita Casas on 09-19-2023 Lymphocytes/100 WBC Auto (Unsp spec) 37.0 % 19-41 [facility] Basophil percentageOrdered B y: Tita Casas on 09-19-2023 Basophils/100 WBC (Bld) 0.8 % 0-1 [facility] Bilirubin [Mass/Vol] 0.40 mg/dL 0.20-1.00 [facility] Comment on above: For patients on eltr ombopag therapy, use of Dimension [place] TBIL is not recommended. Eosinophils/100 WBC (Bld) 8.5 % 0-5 [facility] Hemoglobin (Bld) [Mass/Vol] 15.9 g/dL 13.0-16.5 [facility] Monocytes/100 WBC (Bld) 13.1 % 0-10 [facility] Neutrophils (Bld) [#/Vol] 3.4 10*3/uL 2.0-7.7 [facility] Neutrophils/100 WBC (Bld) 40.5 % 47-70 [facility] Protein [Mass/Vol] 7.0 g/dL 6.4-8.2 [facility] Testosterone [Mass/Vol] 326 ng/dL 264-916 [facility] Comment on above: Adult male reference interval is based on a population ofhealthy nonobese males (BMI <30) between 19 and 39 yearsold. shanice Weems.al. JCEM 2017,102;3313-6247. PMID:[id number]. WBC (Bld) [#/Vol] 8.4 10*3/uL 4.4-11.0 [facility] Determination of erythrocyte mean corpuscular volume (MCV)Ordered By: Tita Casas on 09-19-2023 MCV (RBC) [Entitic vol] 96.9 fL 80-94 [facility] Direct bilirubinOrdered By: Tita Casas 09-19-2023 Bilirubin.direct [Mass/Vol] 0.15 mg/dL 0.00-0.30 [facility] Erythrocyte distribution wid th ratioOrdered By: Tita Casas 09-19-2023 Erythrocyte distribution width (RBC) [Ratio] 13.0 % 11.6-14.6 [facility] Erythrocyte distribution wid th standard deviationOrdered By: Tita Casas 09-19-2023 Erythrocyte distribution width (RBC) [Entitic vol] 46.1 fL 35.1-43.9 [facility] Free testosterone percentage Ordered By: Tita Casas 09-19-2023 Testosterone Free/Testosterone.total [Mass fraction] 3.93 % 1.50-4.20 [facility] Hematocrit Auto (Bld) [Volum e fraction]Ordered By: Tita Casas 09-19-2023 Hematocrit (Bld) [Volume fraction] 49.3 % 40-54 [facility] Immature granulocytes/100 WB C Auto (Bld)Ordered By: Tita Casas 09-19-2023 Immature granulocytes/100 WBC (Bld) 0.100 % 0.0-0.9 [facility] Comment on above: IG% - Immature Granu locytes (promyelocytes, myelocytes and metamyelocytes) > 1% indicates that a LEFT SHIFT is Present. Iron measurement (mass/mass) Ordered By: Tita Casas 09-19-2023 Iron (Unsp spec) [Mass/Mass] 90 ug/dL 65-175 [facility] Laboratory - Chemistry and C hemistry - challengeOrdered By: Tita Casas on 09-19-2023 ALP [Catalytic activity/Vol] 56 U/L 45-117 [facility] ALT [Catalytic activity/Vol] 48 U/L 16-61 [facility] CK [Catalytic activity/Vol] 250 U/L 39-308 [facility] Ferritin [Mass/Vol] 90 ng/mL 26-388 [facility] Globulin (S) [Mass/Vol] 3.6 g/dL 2.2-4.2 [facility] Laboratory - Hematology and Cell countsOrdered By: Tita Casas on 09-19-2023 MCH (RBC) [Entitic mass] 31.2 pg 27.0-32.0 [facility] MCHC (RBC) [Mass/Vol] 32.3 g/dL 32-36 [facility] Nucleated RBC/100 WBC (Bld) [Ratio] 0 % 0-5 [facility] Platelet mean volume (Bld) [Entitic vol] 10.6 fL 6.2-12.0 [facility] Platelets (Bld) [#/Vol] 192 10*3/uL 150-450 [facility] No Panel InformationOrdered By: Tita Casas on 09-19-2023 Adrenocorticotropic Hormone 41.6 pg/mL 7.2-63.3 [facility] Comment on above: ACTH reference inter talisha for samples collected between 7 and10 AM.Performed at: - [facility] [address] [id number] Director: Petr Arzola PhD, Phone: [phone] at: - [facility] [address] [id number] Director: Cyrus Johnson MD, Phone: [phone] Folate 11.10 ng/mL 3.1-55.4 [facility] Vitamin D 25-Hydroxy 61.0 ng/mL [facility] Comment on above: Vitamin D 25(OH) Sta tus Range Deficiency <20 ng/mL (50nmol/L) Insufficiency 20 - 30 ng/mL (50 - 75 nmol/L) Sufficiency 30 - 100 ng/mL (75 - 250 nmol/L) Toxicity >100 ng/mL (>250 nmol/L) Qualitative QuantiFERON-TB g old in tube testOrdered By: Tita Casas on 09-19-2023 M. tuberculosis tuberculin stim IFN-g Ql (Bld) 0.13 IU/mL . [facility] RBC Auto (Bld) [#/Vol]Ordere d By: Tita Casas on 09-19-2023 RBC (Bld) [#/Vol] 5.09 10*6/uL 4.6-6.2 [facility] Serum or plasma cortisol jennifer surement (mass/volume)Ordered By: Tita Casas on 09-19-2023 Cortisol [Mass/Vol] 17.80 ug/dL 3.44-22.45 [facility] Comment on above: Adult (AM) 5.27 - 22 .45 ug/dL Adult (PM) 3.44 - 16.76 ug/dLPlease note revised CORTISOL reference range effective 2019. Serum or plasma testosterone free measurement (mass/volume)Ordered By: Tita Casas on 09-19-2023 Testosterone Free [Mass/Vol] 12.81 ng/dL 5.00-21.00 [facility] Thin prep Papanicolaou smear with manual screeningOrdered By: Tita Casas on 09-19-2023 Thin prep Papanicolaou smear with manual screening 3.4 g/dL 3.2-5.0 [facility] Thin prep Papanicolaou smear with manual screening 50 U/L 15-37 [facility] Thin prep Papanicolaou smear with manual screening Comment . [facility] Comment on above: QuantiFERON-TB Gold Plus [...] smear with manual screening 0.16 IU/mL . [facility] Thin prep Papanicolaou smear with manual screening 0.17 IU/mL . [facility] Thin prep Papanicolaou smear with manual screening > 10.00 IU/mL . [facility] Thin prep Papanicolaou smear with manual screening Negative Negative [facility] Comment on above: No response to [...] gamma. Chemiluminescence immunoassaymethodology Basophil percentageOrdered B y: Maxwell Torres on 09-12-2023 Bilirubin [Mass/Vol] 0.60 mg/dL 0.20-1.00 [facility] Comment on above: For patients on eltr ombopag therapy, use of Dimension [place] TBIL is not recommended. Chloride [Moles/Vol] 106 mmol/L 98-107 [facility] Cholesterol [Mass/Vol] 87 mg/dL <200 [facility] Comment on above: <200 mg/dL Desirable 200-240 mg/dL Borderline >240 mg/dL High Risk Glucose [Mass/Vol] 139 mg/dL 74-106 [facility] Comment on above: Fasting Glucose resu lt greater than or equal to 126 mg/dL suggests DIABETES MELLITUS per A.D.A. criteria. Potassium [Moles/Vol] 3.9 mmol/L 3.5-5.1 [facility] Protein [Mass/Vol] 6.9 g/dL 6.4-8.2 [facility] Sodium [Moles/Vol] 140 mmol/L 136-145 [facility] Triglyceride [Mass/Vol] 94 mg/dL <199 [facility] Comment on above: The drugs N-Acetylcy steine and Metamizole may falsely depress this assay.Serum Triglycerides Reference Interval Normal <150 mg/dL Borderline high 150 - 199 mg/dL High 200 - 499 mg/dL Very High > or = 500 mg/dL Laboratory - Chemistry and C hemistry - challengeOrdered By: Maxwell Torres on 09-12-2023 Albumin/Globulin [Mass ratio] 0.9 {ratio} 0.9-2.4 [facility] ALP [Catalytic activity/Vol] 59 U/L 45-117 [facility] ALT [Catalytic activity/Vol] 37 U/L 16-61 [facility] Cholesterol in HDL [Mass/Vol] 40 mg/dL >40 [facility] Comment on above: The drugs N-Acetylcy steine and Metamizole may falsely depress this assay. Reference Range HDL <40 mg/dL Low HDL Cholesterol HDL >or= 60 mg/dL High HDL Cholesterol Cholesterol in LDL [Mass/Vol] 28 mg/dL 0-130 [facility] CO2 [Moles/Vol] 28.0 mmol/L 21.0-32.0 [facility] Globulin (S) [Mass/Vol] 3.7 g/dL 2.2-4.2 [facility] Urea nitrogen/Creatinine [Mass ratio] 10.3 mg/mg 10-20 [facility] No Panel InformationOrdered By: Maxwell Torres on 09-12-2023 Estimated GFR (MDRD) Amer 66 mL/min >60 [facility] Comment on above: GFR Calc Estimated GFR (MDRD) Non-Af Amer 55 mL/min >60 [facility] Comment on above: Non- GFR Calc VLDL Cholesterol 19 mg/dL 5-40 [facility] Serum or plasma calcium meño urement (mass/volume)Ordered By: Maxwell Torres on 09-12-2023 Calcium [Mass/Vol] 9.0 mg/dL 8.5-10.1 [facility] Serum or plasma creatinine m easurement (mass/volume)Ordered By: Maxwell Torres on 09-12-2023 Creatinine [Mass/Vol] 1.36 mg/dL 0.70-1.30 [facility] Comment on above: The validity of the calculated GFR & GFRAA in patients over 70 years has not been determined. Clinical correlation is essential. Serum or plasma urea nitroge n measurement (mass/volume)Ordered By: Maxwell Torres on 09-12-2023 Urea nitrogen [Mass/Vol] 14 mg/dL 7-18 [facility] Thin prep Papanicolaou smear with manual screeningOrdered By: Maxwell Torres on 09-12-2023 Thin prep Papanicolaou smear with manual screening 3.2 g/dL 3.2-5.0 [facility] Thin prep Papanicolaou smear with manual screening 45 U/L 15-37 [facility] Thin prep Papanicolaou smear with manual screening 6 5-15 [facility] Basophil percentageOrdered B y: Maxwell Janna on 07-18-2023 Bilirubin [Mass/Vol] 0.50 mg/dL 0.20-1.00 [facility] Comment on above: For patients on eltr ombopag therapy, use of Dimension [place] TBIL is not recommended. Chloride [Moles/Vol] 110 mmol/L 98-107 [facility] Cholesterol [Mass/Vol] 178 mg/dL <200 [facility] Comment on above: <200 mg/dL Desirable 200-240 mg/dL Borderline >240 mg/dL High Risk Glucose [Mass/Vol] 140 mg/dL 74-106 [facility] Comment on above: Fasting Glucose resu lt greater than or equal to 126 mg/dL suggests DIABETES MELLITUS per A.D.A. criteria. Potassium [Moles/Vol] 4.2 mmol/L 3.5-5.1 [facility] Protein [Mass/Vol] 6.9 g/dL 6.4-8.2 [facility] Sodium [Moles/Vol] 140 mmol/L 136-145 [facility] Triglyceride [Mass/Vol] 134 mg/dL <199 [facility] Comment on above: The drugs N-Acetylcy steine and Metamizole may falsely depress this assay.Serum Triglycerides Reference Interval Normal <150 mg/dL Borderline high 150 - 199 mg/dL High 200 - 499 mg/dL Very High > or = 500 mg/dL Laboratory - Chemistry and C hemistry - challengeOrdered By: Maxwell Torres on 07-18-2023 Albumin/Creatinine DL <= 1.0 mg/L (24H U) [Ratio] 4.9 mg/g CRE <30 [facility] Albumin/Globulin [Mass ratio] 0.9 {ratio} 0.9-2.4 [facility] ALP [Catalytic activity/Vol] 58 U/L 45-117 [facility] ALT [Catalytic activity/Vol] 43 U/L 16-61 [facility] Cholesterol in HDL (Body fld) [Mass/Vol] 46 mg/dL >40 [facility] Comment on above: The drugs N-Acetylcy steine and Metamizole may falsely depress this assay. Reference Range HDL <40 mg/dL Low HDL Cholesterol HDL >or= 60 mg/dL High HDL Cholesterol Cholesterol in LDL (Body fld) [Moles/Vol] 105 mg/dL 0-130 [facility] Cholesterol in VLDL Calc [Moles/Vol] 27 mg/dL 5-40 [facility] CO2 [Moles/Vol] 26.0 mmol/L 21.0-32.0 [facility] Globulin (S) [Mass/Vol] 3.7 g/dL 2.2-4.2 [facility] Urea nitrogen/Creatinine [Mass ratio] 12.2 mg/mg 10-20 [facility] No Panel InformationOrdered By: Maxwell Torres on 07-18-2023 Estimated GFR (MDRD) Amer 64 mL/min >60 [facility] Comment on above: GFR Calc Estimated GFR (MDRD) Non-Af Amer 53 mL/min >60 [facility] Comment on above: Non- GFR Calc Serum or plasma calcium meño urement (mass/volume)Ordered By: Maxwell Torres on 07-18-2023 Calcium [Mass/Vol] 8.9 mg/dL 8.5-10.1 [facility] Serum or plasma creatinine m easurement (mass/volume)Ordered By: Maxwell Torres on 07-18-2023 Creatinine [Mass/Vol] 1.39 mg/dL 0.70-1.30 [facility] Comment on above: The validity of the calculated GFR & GFRAA in patients over 70 years has not been determined. Clinical correlation is essential. Serum or plasma urea nitroge n measurement (mass/volume)Ordered By: Maxwell Torres on 07-18-2023 Urea nitrogen [Mass/Vol] 17 mg/dL 7-18 [facility] Thin prep Papanicolaou smear with manual screeningOrdered By: Maxwell Torres on 07-18-2023 Thin prep Papanicolaou smear with manual screening 3.2 g/dL 3.2-5.0 [facility] Thin prep Papanicolaou smear with manual screening 25 U/L 15-37 [facility] Thin prep Papanicolaou smear with manual screening 4 5-15 [facility] Thin prep Papanicolaou smear with manual screening 6.2 mg/L NO RANGE EST. [facility] Urine creatinine measurement (mass/volume)Ordered By: Maxwell Torres on 07-18-2023 Creatinine (U) [Mass/Vol] 127.00 mg/dL NO RANGE EST. [facility] Whole blood hemoglobin A1c/t otal hemoglobin ratio (mass fraction)Ordered By: Maxwell Torres on 07-18-2023 HbA1c (Bld) [Mass fraction] 7.7 % 3.8-5.6 [facility] Comment on above: Normal < 5.7 % Predi abetic 5.7 - 6.4 % Diabetic >or= 6.5 % Please note range changes. No Panel InformationOrdered By: Avinash Lombardi on 05-14-2023 Prostate Specific Antigen Screen 0.52 ng/mL 0.00-4.00 [facility] Comment on above: This test was perfor med using the TPSA assay method for RV ID chemistry system. Values obtained with differentassay methods cannot be used interchangably.When changing PSA assays in the course of monitoring apatient, additional sequential testing should be carriedout to confirm baseline values. Basophil percentageOrdered B y: Anmol Ventura on 04-22-2023 Bilirubin [Mass/Vol] 0.40 mg/dL 0.20-1.00 [facility] Comment on above: For patients on eltr ombopag therapy, use of Dimension [place] TBIL is not recommended. Chloride [Moles/Vol] 107 mmol/L 98-107 [facility] Cholesterol [Mass/Vol] 163 mg/dL <200 [facility] Comment on above: <200 mg/dL Desirable 200-240 mg/dL Borderline >240 mg/dL High Risk Glucose [Mass/Vol] 133 mg/dL 74-106 [facility] Comment on above: Fasting Glucose resu lt greater than or equal to 126 mg/dL suggests DIABETES MELLITUS per A.D.A. criteria. Potassium [Moles/Vol] 3.8 mmol/L 3.5-5.1 [facility] Protein [Mass/Vol] 6.9 g/dL 6.4-8.2 [facility] Sodium [Moles/Vol] 138 mmol/L 136-145 [facility] Triglyceride [Mass/Vol] 111 mg/dL <199 [facility] Comment on above: The drugs N-Acetylcy steine and Metamizole may falsely depress this assay.Serum Triglycerides Reference Interval Normal <150 mg/dL Borderline high 150 - 199 mg/dL High 200 - 499 mg/dL Very High > or = 500 mg/dL Direct bilirubinOrdered By: Anmol Ventura on 04-22-2023 Bilirubin.direct [Mass/Vol] 0.12 mg/dL 0.00-0.30 [facility] Laboratory - Chemistry and C hemistry - challengeOrdered By: Anmol Ventura on 04-22-2023 ALP [Catalytic activity/Vol] 57 U/L 45-117 [facility] ALT [Catalytic activity/Vol] 39 U/L 16-61 [facility] CO2 [Moles/Vol] 26.0 mmol/L 21.0-32.0 [facility] Globulin (S) [Mass/Vol] 3.7 g/dL 2.2-4.2 [facility] Urea nitrogen/Creatinine [Mass ratio] 10.1 mg/mg 10-20 [facility] No Panel InformationOrdered By: Anmol Ventura on 04-22-2023 Estimated GFR (MDRD) Amer 70 mL/min >60 [facility] Comment on above: GFR Calc Estimated GFR (MDRD) Non-Af Amer 58 mL/min >60 [facility] Comment on above: Non- GFR Calc Thyroid Stimulating Hormone (TSH) 2.59 uIU/mL 0.358-3.74 [facility] Serum or plasma albumin meño urement (mass/volume)Ordered By: Anmol Ventura on 04-22-2023 Albumin [Mass/Vol] 3.2 g/dL 3.2-5.0 [facility] Serum or plasma albumin/glob ulin mass ratioOrdered By: Anmol Ventura on 04-22-2023 Albumin/Globulin [Mass ratio] 0.9 {ratio} 0.9-2.4 [facility] Serum or plasma calcium meño urement (mass/volume)Ordered By: Anmol Ventura on 04-22-2023 Calcium [Mass/Vol] 8.8 mg/dL 8.5-10.1 [facility] Serum or plasma cholesterol in HDL measurement (mass/volume)Ordered By: Anmol Ventura on 04-22-2023 Cholesterol in HDL [Mass/Vol] 50 mg/dL >40 [facility] Comment on above: The drugs N-Acetylcy steine and Metamizole may falsely depress this assay. Reference Range HDL <40 mg/dL Low HDL Cholesterol HDL >or= 60 mg/dL High HDL Cholesterol Serum or plasma cholesterol in VLDL measurement (mass/volume)Ordered By: Anmol Ventura on 04-22-2023 Cholesterol in VLDL [Mass/Vol] 22 mg/dL 5-40 [facility] Serum or plasma creatinine m easurement (mass/volume)Ordered By: Anmol Ventura on 04-22-2023 Creatinine [Mass/Vol] 1.29 mg/dL 0.70-1.30 [facility] Comment on above: The validity of the calculated GFR & GFRAA in patients over 70 years has not been determined. Clinical correlation is essential. Serum or plasma low density lipoprotein (LDL) cholesterol measurement (mass/volume)Ordered By: Anmol Ventura on 04-22-2023 Cholesterol in LDL [Mass/Vol] 91 mg/dL 0-130 [facility] Serum or plasma urea nitroge n measurement (mass/volume)Ordered By: Anmol Ventura on 04-22-2023 Urea nitrogen [Mass/Vol] 13 mg/dL 7-18 [facility] Thin prep Papanicolaou smear with manual screeningOrdered By: Anmol Ventura on 04-22-2023 Thin prep Papanicolaou smear with manual screening 32 U/L 15-37 [facility] Thin prep Papanicolaou smear with manual screening 5 5-15 [facility] Whole blood hemoglobin A1c/t otal hemoglobin ratio (mass fraction)Ordered By: Anmol Ventura on 04-22-2023 HbA1c (Bld) [Mass fraction] 7.6 % 3.8-5.6 [facility] Comment on above: Normal < 5.7 % Predi abetic 5.7 - 6.4 % Diabetic >or= 6.5 % Please note range changes. Albumin Elph [Mass/Vol]Order ed By: Tino Gamble on 04-01-2023 Albumin [Mass/Vol] 3.3 g/dL 2.9-4.4 [facility] Basophil percentageOrdered B y: Tino Gamble on 04-01-2023 Basophil percentage Comment . [facility] Comment on above: No monoclonality det ected.Performed at: [employer] [id number] Director: Petr Arzola PhD, Phone: [phone] Interpretation of serum or p lasma protein pattern by immunofixation (narrative resultOrdered By: Tino Gamble on 04-01-2023 Protein Fractions Immunofixation Cain [Interp] See comment [facility] Comment on above: Result: Not Observed No Panel InformationOrdered By: Tino Gamble on 04-01-2023 Addendum Document Comment . [facility] Comment on above: Protein electrophore sis scan will follow via computer,mail, or in store banker delivery. Serum [id number] measu rement by electrophoresisOrdered By: Tino Gamble on 04-01-2023 Alpha 1 globulin Elph [Mass/Vol] 0.2 g/dL 0.0-0.4 [facility] Alpha 1 globulin Elph [Mass/Vol] 0.9 g/dL 0.4-1.0 [facility] Serum globulin measurement ( mass/volume)Ordered By: Tino Gamble on 04-01-2023 Globulin (S) [Mass/Vol] 3.5 g/dL 2.2-3.9 [facility] Serum or plasma IgA measurem ent (mass/volume)Ordered By: Tino Gamble on 04-01-2023 IgA [Mass/Vol] 337 mg/dL 61-437 [facility] Serum or plasma IgG measurem ent (mass/volume)Ordered By: Tino Gamble on 04-01-2023 IgG [Mass/Vol] 1120 mg/dL 603-1613 [facility] Serum or plasma IgM measurem ent (mass/volume)Ordered By: Tino Gamble on 04-01-2023 IgM [Mass/Vol] 82 mg/dL 15-143 [facility] Serum or plasma beta globuli n measurement by electrophoresis (mass/volume)Ordered By: Tino Gamble on 04-01-2023 Beta globulin Elph [Mass/Vol] 1.2 g/dL 0.7-1.3 [facility] Serum or plasma gamma globul in measurement by electrophoresis (mass/volume)Ordered By: Tino Gamble on 04-01-2023 Gamma globulin Elph [Mass/Vol] 1.2 g/dL 0.4-1.8 [facility] Serum or plasma immunoelectr ophoresis interpretation (nominal result)Ordered By: Tino Gamble on 04-01-2023 Interpretation IEP [Interp] Comment . [facility] Comment on above: No monoclonality det ected. Thin prep Papanicolaou smear with manual screeningOrdered By: Tino Gamble on 04-01-2023 Thin prep Papanicolaou smear with manual screening 1.0 0.7-1.7 [facility] Total protein bloodOrdered B y: Tino Gamble on 04-01-2023 Protein [Mass/Vol] 6.8 g/dL 6.0-8.5 [facility] Basophil percentageOrdered B y: Maxwell Janna on 02-08-2023 Bilirubin [Mass/Vol] 0.50 mg/dL 0.20-1.00 [facility] Comment on above: For patients on eltr ombopag therapy, use of Dimension [place] TBIL is not recommended. Chloride [Moles/Vol] 105 mmol/L 98-107 [facility] Cholesterol [Mass/Vol] 172 mg/dL <200 [facility] Comment on above: <200 mg/dL Desirable 200-240 mg/dL Borderline >240 mg/dL High Risk Glucose [Mass/Vol] 177 mg/dL 74-106 [facility] Comment on above: Fasting Glucose resu lt greater than or equal to 126 mg/dL suggests DIABETES MELLITUS per A.D.A. criteria. Potassium [Moles/Vol] 3.9 mmol/L 3.5-5.1 [facility] Protein [Mass/Vol] 6.9 g/dL 6.4-8.2 [facility] Sodium [Moles/Vol] 139 mmol/L 136-145 [facility] Triglyceride [Mass/Vol] 132 mg/dL <199 [facility] Comment on above: The drugs N-Acetylcy steine and Metamizole may falsely depress this assay.Serum Triglycerides Reference Interval Normal <150 mg/dL Borderline high 150 - 199 mg/dL High 200 - 499 mg/dL Very High > or = 500 mg/dL Laboratory - Chemistry and C hemistry - challengeOrdered By: Maxwell Torres on 02-08-2023 ALP [Catalytic activity/Vol] 66 U/L 45-117 [facility] ALT [Catalytic activity/Vol] 56 U/L 16-61 [facility] CO2 [Moles/Vol] 28.0 mmol/L 21.0-32.0 [facility] Free T4 [Mass/Vol] 1.17 ng/dL 0.76-1.46 [facility] Globulin (S) [Mass/Vol] 3.4 g/dL 2.2-4.2 [facility] Urea nitrogen/Creatinine [Mass ratio] 12.2 mg/mg 10-20 [facility] No Panel InformationOrdered By: Maxwell Torres on 02-08-2023 Estimated GFR (MDRD) Amer 69 mL/min >60 [facility] Comment on above: GFR Calc Estimated GFR (MDRD) Non-Af Amer 57 mL/min >60 [facility] Comment on above: Non- GFR Calc Thyroid Stimulating Hormone (TSH) 2.30 uIU/mL 0.358-3.74 [facility] Serum or plasma albumin meño urement (mass/volume)Ordered By: Maxwell Torres on 02-08-2023 Albumin [Mass/Vol] 3.5 g/dL 3.2-5.0 [facility] Serum or plasma albumin/glob ulin mass ratioOrdered By: Maxwell Torres on 02-08-2023 Albumin/Globulin [Mass ratio] 1.0 {ratio} 0.9-2.4 [facility] Serum or plasma calcium meño urement (mass/volume)Ordered By: Maxwell Torres on 02-08-2023 Calcium [Mass/Vol] 9.2 mg/dL 8.5-10.1 [facility] Serum or plasma cholesterol in HDL measurement (mass/volume)Ordered By: Maxwell Torres on 02-08-2023 Cholesterol in HDL [Mass/Vol] 49 mg/dL >40 [facility] Comment on above: The drugs N-Acetylcy steine and Metamizole may falsely depress this assay. Reference Range HDL <40 mg/dL Low HDL Cholesterol HDL >or= 60 mg/dL High HDL Cholesterol Serum or plasma cholesterol in VLDL measurement (mass/volume)Ordered By: Maxwell Torres on 02-08-2023 Cholesterol in VLDL [Mass/Vol] 26 mg/dL 5-40 [facility] Serum or plasma creatinine m easurement (mass/volume)Ordered By: Maxwell Torres on 02-08-2023 Creatinine [Mass/Vol] 1.31 mg/dL 0.70-1.30 [facility] Comment on above: The validity of the calculated GFR & GFRAA in patients over 70 years has not been determined. Clinical correlation is essential. Serum or plasma low density lipoprotein (LDL) cholesterol measurement (mass/volume)Ordered By: Maxwell Torres on 02-08-2023 Cholesterol in LDL [Mass/Vol] 97 mg/dL 0-130 [facility] Serum or plasma urea nitroge n measurement (mass/volume)Ordered By: Maxwell Torres on 02-08-2023 Urea nitrogen [Mass/Vol] 16 mg/dL 7-18 [facility] Thin prep Papanicolaou smear with manual screeningOrdered By: Maxwell Torres on 02-08-2023 Thin prep Papanicolaou smear with manual screening 41 U/L 15-37 [facility] Thin prep Papanicolaou smear with manual screening 6 5-15 [facility] Whole blood hemoglobin A1c/t otal hemoglobin ratio (mass fraction)Ordered By: Maxwell Torres on 01-29-2023 HbA1c (Bld) [Mass fraction] 7.7 % 3.8-5.6 [facility] Comment on above: Normal < 5.7 % Predi abetic 5.7 - 6.4 % Diabetic >or= 6.5 % Please note range changes. Basophil percentageOrdered B y: Dr. Gamble on 12-03-2022 Bilirubin [Mass/Vol] 0.40 mg/dL 0.20-1.00 [facility] Comment on above: For patients on eltr ombopag therapy, use of Dimension [place] TBIL is not recommended. Chloride [Moles/Vol] 106 mmol/L 98-107 [facility] Glucose [Mass/Vol] 193 mg/dL 74-106 [facility] Comment on above: Fasting Glucose resu lt greater than or equal to 126 mg/dL suggests DIABETES MELLITUS per A.D.A. criteria. Potassium [Moles/Vol] 4.3 mmol/L 3.5-5.1 [facility] Protein [Mass/Vol] 7.7 g/dL 6.4-8.2 [facility] Sodium [Moles/Vol] 138 mmol/L 136-145 [facility] WBC (Bld) [#/Vol] 8.0 10*3/uL 4.4-11.0 [facility] Blood erythrocytes count (nu mber/volume)Ordered By: Dr. Gamble on 12-03-2022 RBC (Bld) [#/Vol] 5.08 10*6/uL 4.6-6.2 [facility] Blood hemoglobin measurement (mass/volume)Ordered By: Dr. Gamble on 12-03-2022 Hemoglobin (Bld) [Mass/Vol] 16.6 g/dL 13.0-16.5 [facility] Blood platelet mean volumeOr dered By: Dr. Gamble on 12-03-2022 Platelet mean volume (Bld) [Entitic vol] 10.3 fL 6.2-12.0 [facility] Determination of erythrocyte mean corpuscular volume (MCV)Ordered By: Dr. Gamble on 12-03-2022 MCV (RBC) [Entitic vol] 99.2 fL 80-94 [facility] Hematocrit Auto (Bld) [Volum e fraction]Ordered By: Dr. Gamble on 12-03-2022 Hematocrit (Bld) [Volume fraction] 50.4 % 40-54 [facility] Laboratory - Chemistry and C hemistry - challengeOrdered By: Dr. Gamble on 12-03-2022 ALP [Catalytic activity/Vol] 64 U/L 45-117 [facility] ALT [Catalytic activity/Vol] 54 U/L 16-61 [facility] CO2 [Moles/Vol] 24.0 mmol/L 21.0-32.0 [facility] Cobalamin (Vitamin B12) [Mass/Vol] 264 pg/mL 211-911 [facility] Globulin (S) [Mass/Vol] 4.2 g/dL 2.2-4.2 [facility] Urea nitrogen/Creatinine [Mass ratio] 11.8 mg/mg 10-20 [facility] Laboratory - Hematology and Cell countsOrdered By: Dr. Gamble on 12-03-2022 Erythrocyte distribution width (RBC) [Entitic vol] 47.5 fL 35.1-43.9 [facility] Erythrocyte distribution width (RBC) [Ratio] 13.0 % 11.6-14.6 [facility] MCH (RBC) [Entitic mass] 32.7 pg 27.0-32.0 [facility] MCHC Auto (RBC) [Mass/Vol]Or dered By: Dr. Gamble on 12-03-2022 MCHC (RBC) [Mass/Vol] 32.9 g/dL 32-36 [facility] No Panel InformationOrdered By: Dr. Gamble on 12-03-2022 Estimated GFR (MDRD) Amer 62 mL/min >60 [facility] Comment on above: GFR Calc Estimated GFR (MDRD) Non-Af Amer 51 mL/min >60 [facility] Comment on above: Non- GFR Calc Thyroid Stimulating Hormone (TSH) 4.03 uIU/mL 0.358-3.74 [facility] No Panel InformationOrdered By: Tino Gamble on 12-03-2022 Free Lambda Light Chains, Quant 26.1 mg/L 5.7-26.3 [facility] Whole Blood Vitamin B1 Level 133.1 nmol/L 66.5-200.0 [facility] Comment on above: Performed at: [facility] [address] [id number] Director: Petr Arzola PhD, Phone: [phone] at: - [facility] [id number] Director: Cyrus Johnson MD, Phone: [phone] Platelets bldOrdered By: Dr. Gamble on 12-03-2022 Platelets (Bld) [#/Vol] 257 10*3/uL 150-450 [facility] Serum immunoglobulin kappa l ight chains/immunoglobulin lambda light chains mass ratioOrdered By: Tino Gamble on 12-03-2022 Immunoglobulin light chains.kappa/Immunoglobu george light chains.lambda (S) [Mass ratio] 2.06 0.26-1.65 [facility] Serum or plasma albumin meño urement (mass/volume)Ordered By: Dr. Gamble on 12-03-2022 Albumin [Mass/Vol] 3.5 g/dL 3.2-5.0 [facility] Serum or plasma albumin/glob ulin mass ratioOrdered By: Dr. Gamble on 12-03-2022 Albumin/Globulin [Mass ratio] 0.8 {ratio} 0.9-2.4 [facility] Serum or plasma calcium meño urement (mass/volume)Ordered By: Dr. Gamble on 12-03-2022 Calcium [Mass/Vol] 9.1 mg/dL 8.5-10.1 [facility] Serum or plasma creatinine m easurement (mass/volume)Ordered By: Dr. Gamble on 12-03-2022 Creatinine [Mass/Vol] 1.44 mg/dL 0.70-1.30 [facility] Comment on above: The validity of the calculated GFR & GFRAA in patients over 70 years has not been determined. Clinical correlation is essential. Serum or plasma folate measu rement (mass/volume)Ordered By: Dr. Gamble on 12-03-2022 Folate [Mass/Vol] 13.10 ng/mL 3.1-55.4 [facility] Serum or plasma immunoglobul in kappa light chains measurement (mass/volume)Ordered By: Tino Gamble on 12-03-2022 Immunoglobulin light chains.kappa [Mass/Vol] 53.8 mg/L 3.3-19.4 [facility] Serum or plasma urea nitroge n measurement (mass/volume)Ordered By: Dr. Gamble on 12-03-2022 Urea nitrogen [Mass/Vol] 17 mg/dL 7-18 [facility] Thin prep Papanicolaou smear with manual screeningOrdered By: Dr. Gamble on 12-03-2022 Thin prep Papanicolaou smear with manual screening 47 U/L 15-37 [facility] Thin prep Papanicolaou smear with manual screening 8 5-15 [facility] Basophil percentageOrdered B y: Dr. Acevedo on 10-23-2022 Bilirubin [Mass/Vol] 0.40 mg/dL 0.20-1.00 [facility] Comment on above: For patients on eltr ombopag therapy, use of Dimension [place] TBIL is not recommended. Cholesterol [Mass/Vol] 143 mg/dL <200 [facility] Comment on above: <200 mg/dL Desirable 200-240 mg/dL Borderline >240 mg/dL High Risk Protein [Mass/Vol] 6.9 g/dL 6.4-8.2 [facility] Triglyceride [Mass/Vol] 98 mg/dL <199 [facility] Comment on above: The drugs N-Acetylcy steine and Metamizole may falsely depress this assay.Serum Triglycerides Reference Interval Normal <150 mg/dL Borderline high 150 - 199 mg/dL High 200 - 499 mg/dL Very High > or = 500 mg/dL Direct bilirubinOrdered By: Dr. Acevedo on 10-23-2022 Bilirubin.direct [Mass/Vol] 0.10 mg/dL 0.00-0.30 [facility] Laboratory - Chemistry and C hemistry - challengeOrdered By: Dr. Acevedo on 10-23-2022 ALP [Catalytic activity/Vol] 52 U/L 45-117 [facility] ALT [Catalytic activity/Vol] 41 U/L 16-61 [facility] Globulin (S) [Mass/Vol] 3.7 g/dL 2.2-4.2 [facility] No Panel InformationOrdered By: Dr. Acevedo on 10-23-2022 Urine Microalbumin/Creatinine Ratio 7.1 mg/g CRE <30 [facility] Serum or plasma albumin meño urement (mass/volume)Ordered By: Dr. Acevedo on 10-23-2022 Albumin [Mass/Vol] 3.2 g/dL 3.2-5.0 [facility] Serum or plasma cholesterol in HDL measurement (mass/volume)Ordered By: Dr. Acevedo on 10-23-2022 Cholesterol in HDL [Mass/Vol] 49 mg/dL >40 [facility] Comment on above: The drugs N-Acetylcy steine and Metamizole may falsely depress this assay. Reference Range HDL <40 mg/dL Low HDL Cholesterol HDL >or= 60 mg/dL High HDL Cholesterol Serum or plasma cholesterol in VLDL measurement (mass/volume)Ordered By: Dr. Acevedo on 10-23-2022 Cholesterol in VLDL [Mass/Vol] 20 mg/dL 5-40 [facility] Serum or plasma low density lipoprotein (LDL) cholesterol measurement (mass/volume)Ordered By: Dr. Acevedo on 10-23-2022 Cholesterol in LDL [Mass/Vol] 74 mg/dL 0-130 [facility] Thin prep Papanicolaou smear with manual screeningOrdered By: Dr. Acevedo on 10-23-2022 Thin prep Papanicolaou smear with manual screening 5.6 mg/L NO RANGE EST. [facility] Thin prep Papanicolaou smear with manual screening 37 U/L 15-37 [facility] Urine creatinine measurement (mass/volume)Ordered By: Dr. Acevedo on 10-23-2022 Creatinine (U) [Mass/Vol] 79.90 mg/dL NO RANGE EST. [facility] Whole blood hemoglobin A1c/t otal hemoglobin ratio (mass fraction)Ordered By: Dr. Acevedo on 10-23-2022 HbA1c (Bld) [Mass fraction] 6.8 % 3.8-5.6 [facility] Comment on above: Normal < 5.7 % Predi abetic 5.7 - 6.4 % Diabetic >or= 6.5 % Please note range changes. Basophil percentageOrdered B y: Dr. Torres on 10-10-2022 Chloride [Moles/Vol] 107 mmol/L 98-107 [facility] Glucose [Mass/Vol] 191 mg/dL 74-106 [facility] Comment on above: Fasting Glucose resu lt greater than or equal to 126 mg/dL suggests DIABETES MELLITUS per A.D.A. criteria. Potassium [Moles/Vol] 4.0 mmol/L 3.5-5.1 [facility] Sodium [Moles/Vol] 136 mmol/L 136-145 [facility] Laboratory - Chemistry and C hemistry - challengeOrdered By: Dr. Torres on 10-10-2022 CO2 [Moles/Vol] 22.0 mmol/L 21.0-32.0 [facility] Magnesium [Mass/Vol] 1.9 mg/dL 1.6-2.6 [facility] Urea nitrogen/Creatinine [Mass ratio] 11.6 mg/mg 10-20 [facility] No Panel InformationOrdered By: Dr. Torres on 10-10-2022 Estimated GFR (MDRD) Amer 65 mL/min >60 [facility] Comment on above: GFR Calc Estimated GFR (MDRD) Non-Af Amer 54 mL/min >60 [facility] Comment on above: Non- GFR Calc Serum or plasma calcium meño urement (mass/volume)Ordered By: Dr. Torres on 10-10-2022 Calcium [Mass/Vol] 8.8 mg/dL 8.5-10.1 [facility] Serum or plasma creatinine m easurement (mass/volume)Ordered By: Dr. Torres on 10-10-2022 Creatinine [Mass/Vol] 1.38 mg/dL 0.70-1.30 [facility] Comment on above: The validity of the calculated GFR & GFRAA in patients over 70 years has not been determined. Clinical correlation is essential. Serum or plasma urea nitroge n measurement (mass/volume)Ordered By: Dr. Torres on 10-10-2022 Urea nitrogen [Mass/Vol] 16 mg/dL -18 [facility] Thin prep Papanicolaou smear with manual screeningOrdered By: Dr. Torres on 10-10-2022 Thin prep Papanicolaou smear with manual screening 7 5-15 [facility] Basophil percentageOrdered B y: Dr. Torres on 09-28-2022 Bilirubin [Mass/Vol] 0.30 mg/dL 0.20-1.00 [facility] Comment on above: For patients on eltr ombopag therapy, use of Dimension [place] TBIL is not recommended. Chloride [Moles/Vol] 103 mmol/L 98-107 [facility] Glucose [Mass/Vol] 153 mg/dL 74-106 [facility] Comment on above: Fasting Glucose resu lt greater than or equal to 126 mg/dL suggests DIABETES MELLITUS per A.D.A. criteria. Potassium [Moles/Vol] 3.4 mmol/L 3.5-5.1 [facility] Protein [Mass/Vol] 7.0 g/dL 6.4-8.2 [facility] Sodium [Moles/Vol] 135 mmol/L 136-145 [facility] Laboratory - Chemistry and C hemistry - challengeOrdered By: Dr. Torres on 09-28-2022 ALP [Catalytic activity/Vol] 58 U/L 45-117 [facility] ALT [Catalytic activity/Vol] 39 U/L 16-61 [facility] CO2 [Moles/Vol] 26.0 mmol/L 21.0-32.0 [facility] Globulin (S) [Mass/Vol] 3.6 g/dL 2.2-4.2 [facility] Urea nitrogen/Creatinine [Mass ratio] 10.8 mg/mg 10-20 [facility] No Panel InformationOrdered By: Dr. Torres on 09-28-2022 Dehydroepiandrosterone Sulfate 47.0 ug/dL 30.9-295.6 [facility] Comment on above: Performed at: [facility] [email or web address] [address] [id number] Director: Petr Arzola PhD, Phone: [phone] Estimated GFR (MDRD) Amer 76 mL/min >60 [facility] Comment on above: GFR Calc Estimated GFR (MDRD) Non-Af Amer 63 mL/min >60 [facility] Comment on above: Non- GFR Calc Thyroid Stimulating Hormone (TSH) 5.32 uIU/mL 0.358-3.74 [facility] Vitamin D 25-Hydroxy 62.0 ng/mL [facility] Comment on above: Vitamin D 25(OH) Sta tus Range Deficiency <20 ng/mL (50nmol/L) Insufficiency 20 - 30 ng/mL (50 - 75 nmol/L) Sufficiency 30 - 100 ng/mL (75 - 250 nmol/L) Toxicity >100 ng/mL (>250 nmol/L) Serum or plasma albumin meño urement (mass/volume)Ordered By: Dr. Torres on 09-28-2022 Albumin [Mass/Vol] 3.4 g/dL 3.2-5.0 [facility] Serum or plasma albumin/glob ulin mass ratioOrdered By: Dr. Torres on 09-28-2022 Albumin/Globulin [Mass ratio] 0.9 {ratio} 0.9-2.4 [facility] Serum or plasma calcium emño urement (mass/volume)Ordered By: Dr. Torres on 09-28-2022 Calcium [Mass/Vol] 8.8 mg/dL 8.5-10.1 [facility] Serum or plasma creatinine m easurement (mass/volume)Ordered By: Dr. Torres on 09-28-2022 Creatinine [Mass/Vol] 1.20 mg/dL 0.70-1.30 [facility] Comment on above: The validity of the calculated GFR & GFRAA in patients over 70 years has not been determined. Clinical correlation is essential. Serum or plasma urea nitroge n measurement (mass/volume)Ordered By: Dr. Torres on 09-28-2022 Urea nitrogen [Mass/Vol] 13 mg/dL 7-18 [facility] Thin prep Papanicolaou smear with manual screeningOrdered By: Dr. Torres on 09-28-2022 Thin prep Papanicolaou smear with manual screening 40 U/L 15-37 [facility] Thin prep Papanicolaou smear with manual screening 6 5-15 [facility] Absolute lymphocyte countOrd ered By: Dr. Valle on 08-09-2022 Lymphocytes Auto (Unsp spec) [#/Vol] 2.69 10*3/uL 0.83-4.51 [facility] Basophil percentageOrdered B y: Dr. Valle on 08-09-2022 Basophils/100 WBC (Bld) 0.6 % 0-1 [facility] Bilirubin [Mass/Vol] 0.40 mg/dL 0.20-1.00 [facility] Comment on above: For patients on eltr ombopag therapy, use of Dimension [place] TBIL is not recommended. Eosinophils/100 WBC (Bld) 4.9 % 0-5 [facility] Neutrophils (Bld) [#/Vol] 5.4 10*3/uL 2.0-7.7 [facility] Neutrophils/100 WBC (Bld) 55.7 % 47-70 [facility] Protein [Mass/Vol] 7.4 g/dL 6.4-8.2 [facility] WBC (Bld) [#/Vol] 9.6 10*3/uL 4.4-11.0 [facility] Blood erythrocytes count (nu mber/volume)Ordered By: Dr. Valle on 08-09-2022 RBC (Bld) [#/Vol] 4.97 10*6/uL 4.6-6.2 [facility] Blood hemoglobin measurement (mass/volume)Ordered By: Dr. Valle on 08-09-2022 Hemoglobin (Bld) [Mass/Vol] 15.8 g/dL 13.0-16.5 [facility] Blood lymphocytes/100 leukoc ytesOrdered By: Dr. Valle on 08-09-2022 Lymphocytes/100 WBC (Bld) 28.0 % 19-41 [facility] Blood monocytes/100 leukocyt esOrdered By: Dr. Valle on 08-09-2022 Monocytes/100 WBC (Bld) 10.6 % 0-10 [facility] Blood platelet mean volumeOr dered By: Dr. Valle on 08-09-2022 Platelet mean volume (Bld) [Entitic vol] 10.1 fL 6.2-12.0 [facility] Determination of erythrocyte mean corpuscular volume (MCV)Ordered By: Dr. Valle on 08-09-2022 MCV (RBC) [Entitic vol] 96.4 fL 80-94 [facility] Direct bilirubinOrdered By: Dr. Valle on 08-09-2022 Bilirubin.direct [Mass/Vol] 0.15 mg/dL 0.00-0.30 [facility] Hematocrit Auto (Bld) [Volum e fraction]Ordered By: Dr. Valle on 08-09-2022 Hematocrit (Bld) [Volume fraction] 47.9 % 40-54 [facility] Laboratory - Chemistry and C hemistry - challengeOrdered By: Dr. Valle on 08-09-2022 ALP [Catalytic activity/Vol] 62 U/L 45-117 [facility] ALT [Catalytic activity/Vol] 38 U/L 16-61 [facility] Globulin (S) [Mass/Vol] 3.9 g/dL 2.2-4.2 [facility] Laboratory - Hematology and Cell countsOrdered By: Dr. Valle on 08-09-2022 Erythrocyte distribution width (RBC) [Entitic vol] 47.4 fL 35.1-43.9 [facility] Erythrocyte distribution width (RBC) [Ratio] 13.3 % 11.6-14.6 [facility] Immature granulocytes/100 WBC (Bld) 0.200 % 0.0-0.9 [facility] Comment on above: IG% - Immature Granu locytes (promyelocytes, myelocytes and metamyelocytes) > 1% indicates that a LEFT SHIFT is Present. MCH (RBC) [Entitic mass] 31.8 pg 27.0-32.0 [facility] Nucleated RBC/100 WBC (Bld) [Ratio] 0 % 0-5 [facility] MCHC Auto (RBC) [Mass/Vol]Or dered By: Dr. Valle on 08-09-2022 MCHC (RBC) [Mass/Vol] 33.0 g/dL 32-36 [facility] Platelets bldOrdered By: Dr. Valle on 08-09-2022 Platelets (Bld) [#/Vol] 213 10*3/uL 150-450 [facility] Qualitative QuantiFERON-TB g old in tube testOrdered By: Dr. Valle on 08-09-2022 M. tuberculosis tuberculin stim IFN-g Ql (Bld) 0.10 IU/mL . [facility] Serum or plasma albumin meño urement (mass/volume)Ordered By: Dr. Valle on 08-09-2022 Albumin [Mass/Vol] 3.5 g/dL 3.2-5.0 [facility] Thin prep Papanicolaou smear with manual screeningOrdered By: Dr. Valle on 08-09-2022 Thin prep Papanicolaou smear with manual screening 38 U/L 15-37 [facility] Thin prep Papanicolaou smear with manual screening Comment . [facility] Comment on above: QuantiFERON-TB Gold Plus [...] smear with manual screening 0.10 IU/mL . [facility] Thin prep Papanicolaou smear with manual screening 0.29 IU/mL . [facility] Thin prep Papanicolaou smear with manual screening > 10.00 IU/mL . [facility] Thin prep Papanicolaou smear with manual screening Negative Negative [facility] Comment on above: No response to [...] the productionof interferon gamma. Chemiluminescence immunoassaymethodologyPerformed at: [place] [id number] Director: Petr Arzola PhD, Phone: [phone] Erythrocyte sedimentation ra teOrdered By: Dr. Kohli on 05-16-2022 ESR (Bld) [Velocity] 12 mm/h 0-20 [facility] Serum or plasma C reactive p rotein measurement (mass/volume)Ordered By: Dr. Kohli on 05-16-2022 CRP [Mass/Vol] 4.83 mg/L 0.0-3.0 [facility] Comment on above: C-Reactive Protein ( CRP) provides useful information for thediagnosis, therapy and monitoring of inflammatory processesand associated diseases. For the evaluation of Relative Riskfor Cardiovascular Disease, a High Sensitivity CRP (HSCRP)should be ordered. Basophil percentageOrdered B y: Dr. Kohli on 04-18-2022 Chloride [Moles/Vol] 104 mmol/L 98-107 [facility] Cholesterol [Mass/Vol] 149 mg/dL <200 [facility] Comment on above: <200 mg/dL Desirable 200-240 mg/dL Borderline >240 mg/dL High Risk Glucose [Mass/Vol] 144 mg/dL 74-106 [facility] Comment on above: Fasting Glucose resu lt greater than or equal to 126 mg/dL suggests DIABETES MELLITUS per A.D.A. criteria. Potassium [Moles/Vol] 4.0 mmol/L 3.5-5.1 [facility] Sodium [Moles/Vol] 135 mmol/L 136-145 [facility] Triglyceride [Mass/Vol] 129 mg/dL <199 [facility] Comment on above: The drugs N-Acetylcy steine and Metamizole may falsely depress this assay.Serum Triglycerides Reference Interval Normal <150 mg/dL Borderline high 150 - 199 mg/dL High 200 - 499 mg/dL Very High > or = 500 mg/dL Laboratory - Chemistry and C hemistry - challengeOrdered By: Dr. Kohli on 04-18-2022 CO2 [Moles/Vol] 23.0 mmol/L 21.0-32.0 [facility] Urea nitrogen/Creatinine [Mass ratio] 12.9 mg/mg 10-20 [facility] No Panel InformationOrdered By: Dr. Kohli on 04-18-2022 Estimated GFR (MDRD) Amer 69 mL/min >60 [facility] Comment on above: GFR Calc Estimated GFR (MDRD) Non-Af Amer 57 mL/min >60 [facility] Comment on above: Non- GFR Calc Urine Microalbumin/Creatinine Ratio 6.9 mg/g CRE <30 [facility] Serum or plasma calcium meño urement (mass/volume)Ordered By: Dr. Kohli on 04-18-2022 Calcium [Mass/Vol] 9.1 mg/dL 8.5-10.1 [facility] Serum or plasma cholesterol in HDL measurement (mass/volume)Ordered By: Dr. Kohli on 04-18-2022 Cholesterol in HDL [Mass/Vol] 48 mg/dL >40 [facility] Comment on above: The drugs N-Acetylcy steine and Metamizole may falsely depress this assay. Reference Range HDL <40 mg/dL Low HDL Cholesterol HDL >or= 60 mg/dL High HDL Cholesterol Serum or plasma cholesterol in VLDL measurement (mass/volume)Ordered By: Dr. Kohli on 04-18-2022 Cholesterol in VLDL [Mass/Vol] 26 mg/dL 5-40 [facility] Serum or plasma creatinine m easurement (mass/volume)Ordered By: Dr. Kohli on 04-18-2022 Creatinine [Mass/Vol] 1.32 mg/dL 0.70-1.30 [facility] Comment on above: The validity of the calculated GFR & GFRAA in patients over 70 years has not been determined. Clinical correlation is essential. Serum or plasma low density lipoprotein (LDL) cholesterol measurement (mass/volume)Ordered By: Dr. Kohli on 04-18-2022 Cholesterol in LDL [Mass/Vol] 75 mg/dL 0-130 [facility] Serum or plasma urea nitroge n measurement (mass/volume)Ordered By: Dr. Kohli on 04-18-2022 Urea nitrogen [Mass/Vol] 17 mg/dL 7-18 [facility] Thin prep Papanicolaou smear with manual screeningOrdered By: Dr. Kohli on 04-18-2022 Thin prep Papanicolaou smear with manual screening 8 5-15 [facility] Thin prep Papanicolaou smear with manual screening 5.9 mg/L NO RANGE EST. [facility] Urine creatinine measurement (mass/volume)Ordered By: Dr. Kohli on 04-18-2022 Creatinine (U) [Mass/Vol] 85.20 mg/dL NO RANGE EST. [facility] Absolute lymphocyte counton 01-29-2022 Lymphocytes Auto (Unsp spec) [#/Vol] 2.32 10*3/uL 0.83-4.51 [facility] Work Phone: Basophil percentageon 2021 Basophils/100 WBC (Bld) 0.6 % 0-1 [facility] Work Phone: [phone] Chloride [Moles/Vol] 105 mmol/L 98-107 [facility] Work Phone: Eosinophils/100 WBC (Bld) 3.2 % 0-5 [facility] Work Phone: Glucose [Mass/Vol] 334 mg/dL 74-106 [facility] Work Phone: Comment on above: Glucose result great er than or equal to 200 mg/dLsuggests DIABETES MELLITUS per A.D.A. criteria. Neutrophils (Bld) [#/Vol] 4.5 10*3/uL 2.0-7.7 [facility] Work Phone: [phone] Neutrophils/100 WBC (Bld) 56.5 % 47-70 [facility] Work Phone: [phone] Potassium [Moles/Vol] 4.2 mmol/L 3.5-5.1 [facility] Work Phone: [phone] Sodium [Moles/Vol] 138 mmol/L 136-145 [facility] Work Phone: WBC (Bld) [#/Vol] 8.0 10*3/uL 4.4-11.0 [facility] Work Phone: Blood erythrocytes count (nu mber/volume)on 01-29-2022 RBC (Bld) [#/Vol] 4.99 10*6/uL 4.6-6.2 [facility]: Blood hemoglobin measurement (mass/volume)on 01-29-2022 Hemoglobin (Bld) [Mass/Vol] 15.9 g/dL 13.0-16.5 [facility] Work Phone: [phone] Blood lymphocytes/100 leukoc yteson 01-29-2022 Lymphocytes/100 WBC (Bld) 28.9 % 19-41 [facility] Work Phone: [phone] Blood monocytes/100 leukocyt eson 01-29-2022 Monocytes/100 WBC (Bld) 10.6 % 0-10 [facility] Work Phone: Blood platelet mean volumeon 01-29-2022 Platelet mean volume (Bld) [Entitic vol] 10.3 fL 6.2-12.0 [facility] Work Phone: [phone] Determination of erythrocyte mean corpuscular volume (MCV)on 01-29-2022 MCV (RBC) [Entitic vol] 96.8 fL 80-94 [facility] Work Phone: [phone] Hematocrit Auto (Bld) [Volum e fraction]on 01-29-2022 Hematocrit (Bld) [Volume fraction] 48.3 % 40-54 [facility] Work Phone: Laboratory - Chemistry and C hemistry - challengeon 01-29-2022 CO2 [Moles/Vol] 28.0 mmol/L 21.0-32.0 [facility] Work Phone: Natriuretic peptide B (Bld) [Mass/Vol] 9.6 pg/mL 0-100 [facility] Work Phone: Urea nitrogen/Creatinine [Mass ratio] 11.0 mg/mg 10-20 [facility] Work Phone: Laboratory - Hematology and Cell countson 01-29-2022 Erythrocyte distribution width (RBC) [Entitic vol] 46.3 fL 35.1-43.9 [facility] Work Phone: Erythrocyte distribution width (RBC) [Ratio] 12.9 % 11.6-14.6 [facility] Work Phone: Immature granulocytes/100 WBC (Bld) 0.200 % 0.0-0.9 [facility] Work Phone: Comment on above: IG% - Immature Granu locytes (promyelocytes, myelocytes and metamyelocytes) > 1% indicates that a LEFT SHIFT is Present. MCH (RBC) [Entitic mass] 31.9 pg 27.0-32.0 [facility] Work Phone: Nucleated RBC/100 WBC (Bld) [Ratio] 0 % 0-5 [facility] Work Phone: MCHC Auto (RBC) [Mass/Vol]on 01-29-2022 MCHC (RBC) [Mass/Vol] 32.9 g/dL 32-36 [facility] Work Phone: No Panel Informationon 01-29 Estimated GFR (MDRD) Amer 57 mL/min >60 [facility] Work Phone: Comment on above: GFR Calc Estimated GFR (MDRD) Non-Af Amer 47 mL/min >60 [facility] Work Phone: Comment on above: Non- GFR Calc Platelets bldon 01-29-2022 Platelets (Bld) [#/Vol] 198 10*3/uL 150-450 [facility] Work Phone: Serum or plasma calcium meño urement (mass/volume)on 01-29-2022 Calcium [Mass/Vol] 8.9 mg/dL 8.5-10.[address] [facility] Work Phone: Serum or plasma creatinine m easurement (mass/volume)on 01-29-2022 Creatinine [Mass/Vol] 1.55 mg/dL 0.70-1.30 [facility] Work Phone: Comment on above: The validity of the calculated GFR & GFRAA in patients over 70 years has not been determined. Clinical correlation is essential. Serum or plasma urea nitroge n measurement (mass/volume)on 01-29-2022 Urea nitrogen [Mass/Vol] 17 mg/dL 7- [facility] Work Phone: Thin prep Papanicolaou smear with manual screeningon 01-29-2022 Thin prep Papanicolaou smear with manual screening 5 10-29 [facility] Work Phone: Absolute lymphocyte counton 01-01-2022 Lymphocytes Auto (Unsp spec) [#/Vol] 2.75 10*3/uL 0.83-4.51 [facility] Work Phone: Atypical perinuclear antineu trophil cytoplasmic antibodies measurementon 01-01-2022 Neutrophil cytoplasmic Ab.perinuclear.atypical IF (S) [Titer] <1:20 titer Neg:<1:20 [facility] Work Phone: Comment on above: The atypical pANCA p attern has been observed in asignificant percentage of patients with ulcerative colitis,primary sclerosing cholangitis and autoimmune hepatitis. Basophil percentageon 2021 Basophil percentage < 0.2 AI 0.0-0.9 [facility] Work Phone: Basophils/100 WBC (Bld) 0.5 % 0-1 [facility] Work Phone: Bilirubin [Mass/Vol] 0.50 mg/dL 0.20-1.00 [facility] Work Phone: Comment on above: For patients on eltr ombopag therapy, use of Dimension [place] TBIL is not recommended. Eosinophils/100 WBC (Bld) 3.9 % 0-5 [facility] Work Phone: Neutrophils (Bld) [#/Vol] 3.4 10*3/uL 2.0-7.7 [facility] Work Phone: Neutrophils/100 WBC (Bld) 45.3 % 47-70 [facility] Work Phone: Protein [Mass/Vol] 7.4 g/dL 6.4-8.2 [facility] Work Phone: [phone] WBC (Bld) [#/Vol] 7.5 10*3/uL 4.4-11.0 [facility] Work Phone: [phone] Blood erythrocytes count (nu mber/volume)on 01-01-2022 RBC (Bld) [#/Vol] 4.84 10*6/uL 4.6-6.2 [facility] Work Phone: Blood hemoglobin measurement (mass/volume)on 01-01-2022 Hemoglobin (Bld) [Mass/Vol] 15.5 g/dL 13.0-16.5 [facility] Work Phone: Blood lymphocytes/100 leukoc yteson 01-01-2022 Lymphocytes/100 WBC (Bld) 36.9 % 19-41 [facility] Work Phone: Blood monocytes/100 leukocyt eson 01-01-2022 Monocytes/100 WBC (Bld) 13.3 % 0-10 [facility] Work Phone: Blood platelet mean volumeon 01-01-2022 Platelet mean volume (Bld) [Entitic vol] 10.1 fL 6.2-12.0 [facility] Work Phone: Determination of erythrocyte mean corpuscular volume (MCV)on 01-01-2022 MCV (RBC) [Entitic vol] 92.6 fL 80-94 [facility] Work Phone: Direct bilirubinon 2 Bilirubin.direct [Mass/Vol] 0.10 mg/dL 0.00-0.30 [facility] Work Phone: Erythrocyte sedimentation ra danny 01-01-2022 ESR (Bld) [Velocity] 27 mm/h 0-20 [facility] Work Phone: Hematocrit Auto (Bld) [Volum e fraction]on 01-01-2022 Hematocrit (Bld) [Volume fraction] 44.8 % 40-54 [facility] Work Phone: Laboratory - Chemistry and C hemistry - challengeon 01-01-2022 ALP [Catalytic activity/Vol] 79 U/L 45-117 [facility] Work Phone: ALT [Catalytic activity/Vol] 38 U/L 16-61 [facility] Work Phone: Globulin (S) [Mass/Vol] 4.0 g/dL 2.2-4.2 [facility] Work Phone: Laboratory - Hematology and Cell countson 01-01-2022 Erythrocyte distribution width (RBC) [Entitic vol] 42.3 fL 35.1-43.9 [facility] Work Phone: Erythrocyte distribution width (RBC) [Ratio] 12.4 % 11.6-14.6 [facility] Work Phone: Immature granulocytes/100 WBC (Bld) 0.100 % 0.0-0.9 [facility] Work Phone: Comment on above: IG% - Immature Granu locytes (promyelocytes, myelocytes and metamyelocytes) > 1% indicates that a LEFT SHIFT is Present. MCH (RBC) [Entitic mass] 32.0 pg 27.0-32.0 [facility] Work Phone: Nucleated RBC/100 WBC (Bld) [Ratio] 0 % 0-5 [facility] Work Phone: MCHC Auto (RBC) [Mass/Vol]on 01-01-2022 MCHC (RBC) [Mass/Vol] 34.6 g/dL 32-36 [facility] Work Phone: No Panel Informationon 01-01 Anti-Nuclear Antibody Screen Negative Negative [facility] Work Phone: Comment on above: Performed at: [facility] [address] [id number] Director: Petr Arzola PhD, Phone: [phone] Miscellaneous Test See comment [facility] Work Phone: Comment on above: TEST [...] and other laboratory findings. [facility]FOR[facility] AT [facility] ORIGINAL REPORT ON FILE IN LAB CONTAINS ADDITIONAL TEST SITE INFORMATION. Platelets bldon 01-01-2022 Platelets (Bld) [#/Vol] 216 10*3/uL 150-450 [facility] Work Phone: Serum DNA double strand anti body assay (units/volume)on 01-01-2022 DNA double strand Ab Qn (S) 1 [IU]/mL 0-9 [facility] Work Phone: Comment on above: Negative <5 Equivoca l 5 - 9 Positive >9 Serum Scl-70 extractable nuc lear antibody assay (units/volume)on 01-01-2022 SCL-70 extractable nuclear Ab Qn (S) <0.2 AI 0.0-0.9 [facility] Work Phone: Serum classic neutrophil cyt oplasmic antibody assay (units/volume)on 01-01-2022 Neutrophil cytoplasmic Ab.classic Qn (S) <1:20 titer Neg:<1:20 [facility] Work Phone: Serum cyclic citrullinated p eptide IgG antibody assay (units/volume)on 01-01-2022 Cyclic citrullinated peptide IgG Qn 19 units 0-19 [facility] Work Phone: Comment on above: Negative <20 Weak po sitive 20 - 39 Moderate positive 40 - 59 Strong positive >59Performed at: [facility] [address] [id number] Director: Petr Arzola PhD, Phone: [phone] at: [facility] [address] [id number] Director: Cyrus Johnson MD, Phone: [phone] Serum or plasma C reactive p rotein measurement (mass/volume)on 01-01-2022 CRP [Mass/Vol] 5.20 mg/L 0.0-3.0 [facility] Work Phone: Comment on above: C-Reactive Protein ( CRP) provides useful information for thediagnosis, therapy and monitoring of inflammatory processesand associated diseases. For the evaluation of Relative Riskfor Cardiovascular Disease, a High Sensitivity CRP (HSCRP)should be ordered. Serum or plasma actin IgG an tibody assay (units/volume)on 01-01-2022 Actin IgG Qn 7 Units 0-19 [facility] Work Phone: Comment on above: Negative 0 - 19 Weak positive 20 - 30 Moderate to strong positive >30 Actin Antibodies are found in 52-85% of patients with autoimmune hepatitis or chronic active hepatitis and in 22% of patients with primary biliary cirrhosis. Serum or plasma albumin meño urement (mass/volume)on 01-01-2022 Albumin [Mass/Vol] 3.4 g/dL 3.2-5.0 [facility] Work Phone: Serum or plasma angiotensin converting enzyme measurement (enzymatic activity/volume)on 01-01-2022 Angiotensin converting enzyme [Catalytic activity/Vol] 63 U/L 14-82 [facility] Work Phone: Serum perinuclear neutrophil cytoplasmic antibody titer by immunofluorescenceon 01-01-2022 Neutrophil cytoplasmic Ab.perinuclear IF (S) [Titer] <1:20 titer Neg:<1:20 [facility] Work Phone: Comment on above: The presence of posi tive fluorescence exhibiting P-ANCA orC-ANCA patterns alone is not specific for the diagnosis ofWegener's Granulomatosis (WG) or microscopic polyangiitis.Decisions about treatment should not be based solely onANCA IFA results. The [employer]CA [employer] Consensusrecommends follow up testing of positive sera with both AK-3 and MPO-ANCA enzyme immunoassays. As many as 5% serumsamples are positive only by EIA. Ref. AM J Clin [id number];111:507-513. Serum rheumatoid factor dete ctionon 01-01-2022 Rheumatoid factor Ql (S) < 10.0 IU/mL <15 [facility] Work Phone: Thin prep Papanicolaou smear with manual screeningon 01-01-2022 Thin prep Papanicolaou smear with manual screening 31 U/L 15-37 [facility] Work Phone: Basophil percentageon 2021 Chloride [Moles/Vol] 103 mmol/L 98-107 [facility] Work Phone: Glucose [Mass/Vol] 255 mg/dL 74-106 [facility] Work Phone: Comment on above: Glucose result great er than or equal to 200 mg/dLsuggests DIABETES MELLITUS per A.D.A. criteria. Potassium [Moles/Vol] 3.9 mmol/L 3.5-5.1 [facility] Work Phone: Sodium [Moles/Vol] 135 mmol/L 136-145 [facility] Work Phone: Laboratory - Chemistry and C hemistry - challengeon 11-23-2021 CO2 [Moles/Vol] 29.0 mmol/L 21.0-32.0 [facility] Work Phone: Urea nitrogen/Creatinine [Mass ratio] 9.8 mg/mg 10-20 [facility] Work Phone: No Panel Informationon 11-23 Estimated GFR (MDRD) Amer 69 mL/min >60 [facility] Work Phone: Comment on above: GFR Calc Estimated GFR (MDRD) Non-Af Amer 57 mL/min >60 [facility] Work Phone: Comment on above: Non- GFR Calc Thyroglobulin Antibody < 1.0 IU/mL 0.0-0.9 [facility] Work Phone: Comment on above: Thyroglobulin Antibo dy measured by Jennifer CoulterMethodology Thyroglobulin Level 8.5 ng/mL 1.4-29.2 [facility] Work Phone: Comment on above: According to the [place] [facility] [employer],the reference interval for Thyroglobulin (TG) should berelated to euthyroid patients and not for patients whounderwent thyroidectomy. TG reference intervals for thesepatients depend on the residual mass of the thyroid tissueleft after surgery. Establishing a post-operative baselineis recommended. The assay limit of quantitation is 0.1ng/mLThyroglobulin measured by Jennifer Ruby [employer] Thyroid Stimulating Hormone (TSH) 2.83 uIU/mL 0.358-3.74 [facility] Work Phone: Serum or plasma calcium meño urement (mass/volume)on 11-23-2021 Calcium [Mass/Vol] 9.1 mg/dL 8.5-10.1 [facility] Work Phone: Serum or plasma creatinine m easurement (mass/volume)on 11-23-2021 Creatinine [Mass/Vol] 1.32 mg/dL 0.70-1.30 [facility] Work Phone: Comment on above: The validity of the calculated GFR & GFRAA in patients over 70 years has not been determined. Clinical correlation is essential. Serum or plasma thyroperoxid ase antibody assay (units/volume)on 11-23-2021 TPO Ab Qn [IU]/mL 0-34 [facility] Work Phone: Comment on above: Performed at: [place] [id number] Director: Petr Arzola PhD, Phone: [phone] Serum or plasma urea nitroge n measurement (mass/volume)on 11-23-2021 Urea nitrogen [Mass/Vol] 13 mg/dL 7-18 [facility] Work Phone: Thin prep Papanicolaou smear with manual screeningon 11-23-2021 Thin prep Papanicolaou smear with manual screening 3 5-15 [facility] Work Phone: Basophil percentageon 2021 Chloride [Moles/Vol] 103 mmol/L 98-107 [facility] Work Phone: Glucose [Mass/Vol] 225 mg/dL 74-106 [facility] Work Phone: Comment on above: Glucose result great er than or equal to 200 mg/dLsuggests DIABETES MELLITUS per A.D.A. criteria. Potassium [Moles/Vol] 3.9 mmol/L 3.5-5.1 [facility] Work Phone: Sodium [Moles/Vol] 135 mmol/L 136-145 [facility] Work Phone: Laboratory - Chemistry and C hemistry - challengeon 10-31-2021 CO2 [Moles/Vol] 26.0 mmol/L 21.0-32.0 [facility] Work Phone: Urea nitrogen/Creatinine [Mass ratio] 9.4 mg/mg 10-20 [facility] Work Phone: No Panel Informationon 10-31 Estimated GFR (MDRD) Amer 72 mL/min >60 [facility] Work Phone: Comment on above: GFR Calc Estimated GFR (MDRD) Non-Af Amer 59 mL/min >60 [facility] Work Phone: Comment on above: Non- GFR Calc Serum or plasma calcium meño urement (mass/volume)on 10-31-2021 Calcium [Mass/Vol] 8.9 mg/dL 8.5-10.1 [facility] Work Phone: Serum or plasma creatinine m easurement (mass/volume)on 10-31-2021 Creatinine [Mass/Vol] 1.27 mg/dL 0.70-1.30 [facility] Work Phone: Comment on above: The validity of the calculated GFR & GFRAA in patients over 70 years has not been determined. Clinical correlation is essential. Serum or plasma urea nitroge n measurement (mass/volume)on 10-31-2021 Urea nitrogen [Mass/Vol] 12 mg/dL 7-18 [facility] Work Phone: Thin prep Papanicolaou smear with manual screeningon 10-31-2021 Thin prep Papanicolaou smear with manual screening 6 5-15 [facility] Work Phone: Basophil percentageon 2021 Bilirubin [Mass/Vol] 0.50 mg/dL 0.20-1.00 [facility] Work Phone: Comment on above: For patients on eltr ombopag therapy, use of Dimension [place] TBIL is not recommended. Chloride [Moles/Vol] 99 mmol/L 98-107 [facility] Work Phone: Glucose [Mass/Vol] 335 mg/dL 74-106 [facility] Work Phone: Comment on above: Glucose result great er than or equal to 200 mg/dLsuggests DIABETES MELLITUS per A.D.A. criteria. Potassium [Moles/Vol] 3.9 mmol/L 3.5-5.1 [facility] Work Phone: Protein [Mass/Vol] 7.2 g/dL 6.4-8.2 [facility] Work Phone: Sodium [Moles/Vol] 133 mmol/L 136-145 [facility] Work Phone: Laboratory - Chemistry and C hemistry - challengeon 10-11-2021 ALP [Catalytic activity/Vol] 88 U/L 45-117 [facility] Work Phone: ALT [Catalytic activity/Vol] 38 U/L 16-61 [facility] Work Phone: CO2 [Moles/Vol] 30.0 mmol/L 21.0-32.0 [facility] Work Phone: Globulin (S) [Mass/Vol] 4.0 g/dL 2.2-4.2 [facility] Work Phone: Urea nitrogen/Creatinine [Mass ratio] 9.0 mg/mg 10-20 [facility] Work Phone: No Panel Informationon 10-11 Dehydroepiandrosterone Sulfate 53.9 ug/dL 30.9-295.6 [facility] Work Phone: Comment on above: Performed at: [address] [id number] Director: Petr Arzola PhD, Phone: [phone] Estimated GFR (MDRD) Amer 68 mL/min >60 [facility] Work Phone: Comment on above: GFR Calc Estimated GFR (MDRD) Non-Af Amer 56 mL/min >60 [facility] Work Phone: Comment on above: Non- GFR Calc Thyroid Stimulating Hormone (TSH) 4.21 uIU/mL 0.358-3.74 [facility] Work Phone: Vitamin D 25-Hydroxy 62.4 ng/mL [facility] Work Phone: Comment on above: Vitamin D 25(OH) Sta tus Range Deficiency <20 ng/mL (50nmol/L) Insufficiency 20 - 30 ng/mL (50 - 75 nmol/L) Sufficiency 30 - 100 ng/mL (75 - 250 nmol/L) Toxicity >100 ng/mL (>250 nmol/L) Serum or plasma albumin meño urement (mass/volume)on 10-11-2021 Albumin [Mass/Vol] 3.2 g/dL 3.2-5.0 [facility] Work Phone: Serum or plasma albumin/glob ulin mass ratioon 10-11-2021 Albumin/Globulin [Mass ratio] 0.8 {ratio} 0.9-2.4 [facility] Work Phone: Serum or plasma calcium meño urement (mass/volume)on 10-11-2021 Calcium [Mass/Vol] 8.7 mg/dL 8.5-10.1 [facility] Work Phone: Serum or plasma creatinine m easurement (mass/volume)on 10-11-2021 Creatinine [Mass/Vol] 1.33 mg/dL 0.70-1.30 [facility] Work Phone: Comment on above: The validity of the calculated GFR & GFRAA in patients over 70 years has not been determined. Clinical correlation is essential. Serum or plasma urea nitroge n measurement (mass/volume)on 10-11-2021 Urea nitrogen [Mass/Vol] 12 mg/dL 7-18 [facility] Work Phone: Thin prep Papanicolaou smear with manual screeningon 10-11-2021 Thin prep Papanicolaou smear with manual screening 25 U/L 15-37 [facility] Work Phone: Thin prep Papanicolaou smear with manual screening 4 5-15 [facility] Work Phone: Clinical Lists Update: Prelo bandage maker 02-07-2017 Left ventricular Ejection fraction 70 % [facility] Work Phone: Office Visit: 6 month follow upon 01-28-2017 Documentation of current medications (procedure) Done Invalid Interpretation Code [facility] Work Phone: Protein mass conc Done [facility] Work Phone: Tobacco smoking status NHIS Never smoker [employer] Work Phone: [phone] Tobacco use CPHS Never smoker Invalid Interpretation Code [employer] Work Phone: [phone] Office Visiton 10-23-2016 Documentation of current medications (procedure) Done Invalid Interpretation Code [employer] Work Phone: [phone] Fall risk assessment No [employer] Work Phone: [phone] Clinical Lists Update: Prelo bandage maker 10-19-2016 Left ventricular Ejection fraction 60 % Invalid Interpretation Code [employer] Work Phone: [phone] Lab Report: Basic Metabolic Profile (BMP)on 10-12-2016 Anion gap 5 mmol/L Invalid Interpretation Code 10-29 [employer] Work Phone: [phone] Anion gap molar conc 5 mmol/L 10-29 [employer] Work Phone: [phone] BUN/Creatinine Ratio 12.2 RATIO 10-20 [employer] Work Phone: [phone] Calcium 8.5 mg/dL 8.5-10.1 [employer] Work Phone: [phone] Chloride 110 mmol/L High 98-107 [employer] Work Phone: [phone] CO2 24.0 mmol/L Invalid Interpretation Code 21.0-32.0 [employer] Work Phone: [phone] CO2 ppres (BldV) 24.0 mmol/L 21.0-32.0 [employer] Work Phone: [phone] Creatinine 1.56 mg/dL High 0.70-1.30 [employer] Work Phone: [phone] eGFR (non-black) 48 mL/min/{1.73_m2} Low >60 [employer] Work Phone: [phone] eGFR (non-black) 57 mL/min/{1.73_m2} Low >60 [employer] Work Phone: [phone] EST GFR - AA 57 mL/min Low >60 [employer] Work Phone: [phone] Glucose 124 mg/dL High 70-110 [employer] Work Phone: [phone] Glucose mass conc 124 mg/dL High 70-110 [facility] Work [phone] Potassium molar conc 4.0 mmol/L 3.5-5.[address] [facility] Work Phone: [phone] Sodium 139 mmol/L 136-145 [facility] Work Phone: [phone] Urea nitrogen 19 mg/dL High 7-18 [facility] Work Phone: [phone] Lab Report: CBC-Complete Blo od Cnt No Diffon 10-12-2016 Erythrocyte distribution width Auto Ratio (RBC) 13.3 % Invalid Interpretation Code 11.6-14.6 [facility] Work Phone: [phone] Erythrocyte distribution width Ratio (RBC) 44.6 fL High 35.1-43.9 [facility] Work Phone: [phone] Erythrocyte distribution width Ratio (RBC) 13.3 % 11.6-14.6 [facility] Work Phone: [phone] Erythrocytes (RBC) 4.95 10*6/uL Invalid Interpretation Code 4.6-6.2 [facility] Work Phone: [phone] Hematocrit (HCT) 46.8 % Invalid Interpretation Code 40-54 [facility] Work Phone: [phone] Hematocrit Volume Fraction (Bld) 46.8 % 40-54 [facility] Work Phone: [phone] Hemoglobin mass conc (Bld) 15.8 g/dL 13.0-16.5 [facility] Work Phone: [phone] MCH 31.9 pg Invalid Interpretation Code 27.0-32.0 [facility] Work Phone: [phone] MCH Entitic mass (RBC) 31.9 pg 27.0-32.0 [facility] Work Phone: [phone] MCHC mass conc (RBC) 33.8 G/GL Invalid Interpretation Code 32-36 [facility] Work Phone: [phone] MCHC mass conc (RBC) 33.8 G/GL 32-[address] [facility] Work Phone: [phone] MCV 94.5 fL High 80-94 [facility] Work Phone: [phone] MCV Entitic volume (RBC) 94.5 fL High 80-94 [facility] Work Phone: [phone] Platelet mean volume Entitic volume (Bld) 11.0 fL 6.2-12.0 [employer] Work Phone: [phone] Platelets 238 10*3/mm3 Invalid Interpretation Code 150-450 [employer] Work Phone: [phone] Platelets #/vol (Bld) 238 10*3/mm3 150-450 [employer] Work Phone: [phone] PMV by Rico 11.0 fL Invalid Interpretation Code 6.2-12.0 [employer] Work Phone: [phone] RBC #/vol (Bld) 4.95 10*6/uL 4.6-6.2 [employer] Work Phone: [phone] RDW SD 44.6 fL High 35.1-43.9 [employer] Work Phone: [phone] red blood cell distribution width, size density 44.6 fL High 35.1-43.9 [employer] Work Phone: [phone] WBC #/vol (Bld) 6.9 10*3/uL 4.4-11.0 [employer] Work Phone: [phone] WBC (Leukocytes) 6.9 10*3/uL Invalid Interpretation Code 4.4-11.0 [employer] [facility] Phone: [phone] Office Visit: [facility] 10-13-19 17 Fall risk assessment No Invalid Interpretation Code [employer] Phone: [phone] Replaced Document: Ching Alamoon 10-12-2016 EKG QRS axis 34 deg [employer] Work Phone: [phone] electrocardiogram interpretation 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 ABNORMAL [employer] Work Phone: [phone] P Tropic 44 deg [employer] Work Phone: [phone] P wave axis, electrocardiogram 44 deg Invalid Interpretation Code [employer] Work Phone: [phone] AK Interval 156 ms [employer] Work Phone: [phone] AK interval, electrocardiogram 156 ms Invalid Interpretation Code [employer] Work Phone: [phone] Pulse (Heart Rate) 82 /min Invalid Interpretation Code [employer] Work Phone: [phone] QRS axis, electrocardiogram 34 deg Invalid Interpretation Code [employer] Work Phone: [phone] QRS Duration 100 ms [employer] Work Phone: [phone] QRS duration, electrocardiogram 100 ms Invalid Interpretation Code [employer] Work Phone: [phone] QT Interval new path ms [employer] Work Phone: [phone] QT interval, electrocardiogram new path ms Invalid Interpretation Code [employer] Work Phone: [phone] QTc Bryant 422 ms [employer] Work Phone: [phone] T Tropic 48 deg [employer] Work Phone: [phone] T wave axis, electrocardiogram 48 deg Invalid Interpretation Code [employer] Work Phone: [phone]) Office Visit: [facility] 04-10-20 Dietary management education, guidance, and counseling (procedure) yes Invalid Interpretation Code [employer] Phone: [phone] Documentation of current medications (procedure) Done Invalid Interpretation Code [employer] Work Phone: [phone] Clinical Lists Update: Prelo bandage maker 04-06-2016 Alanine aminotransferase (ALT) 34 U/L [employer] Work Phone: [phone] Alkaline phosphatase (ALP) 77 U/L Invalid Interpretation Code [employer] Work Phone: [phone] ALP enzyme act/vol (Bld) 77 U/L [employer] Work Phone: [phone] Aspartate aminotransferase (AST) 23 U/L [employer] Work Phone: [phone] Cholesterol 164 mg/dL [employer] Work Phone: [phone] HDL Cholesterol 47 mg/dL [facility] Work Phone: [phone] LDL Cholesterol 92 mg/dL [facility] Work Phone: [phone] Protein 7.0 g/dL [facility] Work Phone: [phone] Thyroid stimulating hormone (TSH) 2.89 u[iU]/mL [facility] Work Phone: [phone] Triglyceride 125 mg/dL [facility] Work Phone: [phone] Clinical Lists Update: Pre bandage maker 10-14-2015 Left ventricular Ejection fraction 60 % Invalid Interpretation Code [facility] Work Phone: [phone] Office Visiton 10-03-2015 Tobacco use CPHS Never smoker Invalid Interpretation Code [facility] Work Phone: [phone] Clinical Lists Update: [facility] bandage maker 09-07-2015 very low density lipoproteins 25 mg/dL [facility] Work Phone: [phone] Office Visiton 09-08-2014 cardiac risk group [facility] Work Phone: [phone] General cardiovascular disease 10Y risk [#] [place]D'Agostino N/A [facility] Work Phone: [phone] Clinical Lists Update: [facility] bandage maker 06-24-2014 Albumin 3.8 g/dL [facility] Work Phone: [phone] Bilirubin (total) 0.30 mg/dL [facility] Work Phone: [phone] Lab Report: PTon 04-16-2013 INR Coag RelTime (PPP) 1.0 {INR} Normal [facility] Work Phone: [phone] INR in blood by coagulation 1.0 {INR} Normal [facility] Work Phone: [phone] prothrombin time, actual/normal, ratio 12.2 SECONDS Normal 11.9-14.4 [facility] Work Phone: [phone] PTP 12.2 SECONDS Normal 11.9-14.4 [facility] Work Phone: [phone] Replaced Document: Ching E CG Observationson 04-16-2013 Pulse (Heart Rate) 395 ms Invalid Interpretation Code [facility] Work Phone: Fungus culture and stain Fungal Culture Violetta albicans [facility] Work Phone: Fungal Culture Cladosporium species [facility] Work Phone: Vital Signs Date Time Vital Sign Value Performing Clinician Facility 04-26-2025 10:43-0500 Body height 165.1 cm Maxine Zack MIXER MACHINE [employer] MOTEL MANAGER Work Phone: [facility] 04-26-2025 10:43-0500 Body mass index (BMI) [Ratio] 27.92 kg/m2 Maxine Zack MIXER MACHINE FE[employer] MOTEL MANAGER Work Phone: [facility] 04-26-2025 10:43-0500 Body temperature 97.2 [degF] Maxine Zack MIXER MACHINE FE[employer] OR MOTEL MANAGER Work Phone: [facility] 04-26-2025 10:43-0500 Body weight 76.11 kg Maxine Zack MIXER MACHINE [employer] MOTEL MANAGER Work Phone: [facility] 04-26-2025 10:43-0500 Diastolic blood pressure 66 mm[Hg] Maxine Zack MIXER MACHINE [employer] MOTEL MANAGER Work Phone: [facility] 04-26-2025 10:43-0500 Heart rate 63 /min Maxine Zack MIXER MACHINE [employer] MOTEL MANAGER Work Phone: [facility] 04-26-2025 10:43-0500 SaO2% (BldA) [Mass fraction] 96 % Maxine Zack MIXER MACHINE [employer] MOTEL MANAGER Work Phone: [facility] 04-26-2025 10:43-0500 Systolic blood pressure 121 mm[Hg] Maxine Zack MIXER MACHINE [employer] MOTEL MANAGER Work Phone: [facility] 04-12-2025 09:48-0400 Body height 165.1 cm Tee Oliveira MD Work Phone: [facility] 04-12-2025 09:48-0400 Body mass index (BMI) [Ratio] 30.12 kg/m2 Tee Oliveira MD Work Phone: [facility] 04-12-2025 09:48-0400 Body temperature 97.39 [degF] Tee Oliveira MD Work Phone: [facility] 04-12-2025 09:48-0400 Body weight 82.1 kg Tee Oliveira MD Work Phone: [facility] 04-12-2025 09:48-0400 Diastolic blood pressure 55 mm[Hg] Tee Oliveira MD Work Phone: [facility] 04-12-2025 09:48-0400 Heart rate 56 /min Tee Oliveira MD Work Phone: [facility] 04-12-2025 09:48-0400 Respiratory rate 12 /min Tee Oliveira MD Work Phone: [facility] 04-12-2025 09:48-0400 SaO2% (BldA) [Mass fraction] 96 % Tee Oliveira MD Work Phone: [facility] 04-12-2025 09:48-0400 Systolic blood pressure 104 mm[Hg] Tee Oliveira MD Work Phone: [facility] 04-07-2025 10:57-0400 Body temperature 98.01 [degF] Dolly Morton MD Work Phone: [facility] 04-07-2025 10:57-0400 Diastolic blood pressure 77 mm[Hg] Dolly Morton MD Work Phone: [facility] 04-07-2025 10:57-0400 Heart rate 57 /min Dolly Morton MD Work Phone: [facility] 04-07-2025 10:57-0400 SaO2% (BldA) [Mass fraction] 94 % Dolly Morton MD Work Phone: [facility] 04-07-2025 10:57-0400 Systolic blood pressure 119 mm[Hg] Dolly Morton MD Work Phone: [facility] 04-07-2025 07:18-0400 Respiratory rate 16 /min Dolly Morton MD Work Phone: [facility] 03-28-2025 07:30-0400 Body mass index (BMI) [Ratio] 26.93 kg/m2 Dolly Morton MD Work Phone: [facility] 03-28-2025 07:30-0400 Body weight 73.4 kg Dolly Morton MD Work Phone: [facility] 03-23-2025 16:21-0400 Body height 165.1 cm Dolly Morton MD Work Phone: [facility] 03-23-2025 08:19-0400 Body temperature 98.2 [degF] Doretha Brandon MD Work Phone: [facility] 03-23-2025 08:19-0400 Diastolic blood pressure 63 mm[Hg] Doretha Brandon MD Work Phone: [facility] 03-23-2025 08:19-0400 Heart rate 104 /min Doretha Brandon MD Work Phone: [facility] 03-23-2025 08:19-0400 Respiratory rate 16 /min Doretha Brandon MD Work Phone: [facility] 03-23-2025 08:19-0400 SaO2% (BldA) [Mass fraction] 96 % Doretha Brandon MD Work Phone: [facility] 03-23-2025 08:19-0400 Systolic blood pressure 90 mm[Hg] Doretha Brandon MD Work Phone: [facility] 03-11-2025 11:00-0400 Body height 165.1 cm Doretha Brandon MD Work Phone: 5(730)587-192438 [place] [address] 03-11-2025 11:00-0400 Body mass index (BMI) [Ratio] 30.2 kg/m2 Doretha Brandon MD Work Phone: 7(698)407-409438 [place] [address] 03-11-2025 11:00-0400 Body weight 82.33 kg Doretha Brandon MD Work Phone: 9(292)249-624038 [place] [address] 03-06-2025 11:38-0400 Body temperature 98.1 [degF] Doretha Brandon MD Work Phone: 4(740)353-842038 [place] [address] 03-06-2025 11:38-0400 Diastolic blood pressure 87 mm[Hg] Doretha Brandon MD Work Phone: 7(766)059-870238 [place] [address] 03-06-2025 11:38-0400 Heart rate 94 /min Doretha Brandon MD Work Phone: 6(069)939-788238 [place] [address] 03-06-2025 11:38-0400 Respiratory rate 16 /min Doretha Brandon MD Work Phone: 9(035)856-780138 [place] [address] 03-06-2025 11:38-0400 SaO2% (BldA) [Mass fraction] 97 % Doretha Brandon MD Work Phone: 4(560)924-872338 [place] [address] 03-06-2025 11:38-0400 Systolic blood pressure 125 mm[Hg] Doretha Brandon MD Work Phone: 3(977)267-932538 [place] [address] 01-11-2025 14:20-0400 Body height 165.1 cm Doretha Brandon MD Work Phone: [facility] Comment on above: VERBAL 01-11-2025 14:20-0400 Body mass index (BMI) [Ratio] 31.33 kg/m2 Doretha Brandon MD Work Phone: [facility] 01-11-2025 14:20-0400 Body temperature 98.4 [degF] Doretha Brandon MD Work Phone: [facility] 01-11-2025 14:20-0400 Body weight 85.41 kg Doretha Brandon MD Work Phone: [facility] Comment on above: WITH SHOES 01-11-2025 14:20-0400 Diastolic blood pressure 64 mm[Hg] Doretha Brandon MD Work Phone: 7(105)385-838863 [address] 01-11-2025 14:20-0400 Heart rate 77 /min Doretha Brandon MD Work Phone: 0(503)650-320210 [place] [address] 01-11-2025 14:20-0400 SaO2% (BldA) [Mass fraction] 91 % Doretha Brandon MD Work Phone: [facility] 01-11-2025 14:20-0400 Systolic blood pressure 103 mm[Hg] Doretha Brandon MD Work Phone: 3(850)259-419510 [place] [address] 12-11-2024 07:33-0400 Body height 165.[address] Armando Kohli MD Work Phone: [facility] 12-11-2024 07:33-0400 Body mass index (BMI) [Ratio] 31.1 kg/m2 Dr. Armando Kohli MD Work Phone: [facility] 12-11-2024 07:33-0400 Body weight 84.[address] Armando Kohli MD Work Phone: [facility] 12-11-2024 07:33-0400 Diastolic blood pressure 54 mm[Hg] Dr. Armando Kohli MD Work Phone: [facility] 12-11-2024 07:33-0400 Heart rate 85 /min Dr. Armando Kohli MD Work Phone: [facility] 12-11-2024 07:33-0400 Respiratory rate 20 /min Dr. Armando Kohli MD Work Phone: [facility] 12-11-2024 07:33-0400 SaO2% (BldA) [Mass fraction] 93 % Dr. Armando Kohli MD Work Phone: [facility] 12-11-2024 07:33-0400 Systolic blood pressure 109 mm[Hg] Dr. Armando Kohli MD Work Phone: [facility] 11-29-2024 18:47-0400 Body temperature 97.8 [degF] Dr. Armando Kohli MD Work Phone: 7(477)523-428474 [place] [address] 11-29-2024 18:47-0400 Diastolic blood pressure 78 mm[Hg] Dr. Armando Kohli MD Work Phone: [facility] 11-29-2024 18:47-0400 Heart rate 73 /min Dr. Armando Kohli MD Work Phone: 7(089)440-877374 [place] [address] 11-29-2024 18:47-0400 Respiratory rate 23 /min Dr. Armando Kohli MD Work Phone: 5(809)380-158559 [address] 11-29-2024 18:47-0400 SaO2% (BldA) [Mass fraction] 95 % Dr. Armando Kohli MD Work Phone: [facility] 11-29-2024 18:47-0400 Systolic blood pressure 123 mm[Hg] Dr. Armando Kohli MD Work Phone: 0(709)691-936074 [place] [address] 11-29-2024 15:37-0400 Body mass index (BMI) [Ratio] 32.8 kg/m2 Dr. Armando Kohli MD Work Phone: 9(189)506-097974 [place] [address] 11-29-2024 15:37-0400 Body weight 89.[address] Armando Kohli MD Work Phone: [facility] 11-29-2024 15:31-0400 Body height 165.[address] Armando Kohli MD Work Phone: [facility] 08-25-2024 14:15-0400 Body height 165.1 cm Nirav Melissa MD Work Phone: [facility] Comment on above: verbal 08-25-2024 14:15-0400 Body mass index (BMI) [Ratio] 34.35 kg/m2 Nirav Melissa MD Work Phone: [facility] 08-25-2024 14:15-0400 Body temperature 98.2 [degF] Nirav Melissa MD Work Phone: [facility] 08-25-2024 14:15-0400 Body weight 93.62 kg Nirav Melissa MD Work Phone: [facility] 08-25-2024 14:15-0400 Diastolic blood pressure 63 mm[Hg] Nirav Melissa MD Work Phone: [facility] Comment on above: right arm 08-25-2024 14:15-0400 Heart rate 84 /min Nirav Melissa MD Work Phone: [facility] 08-25-2024 14:15-0400 Systolic blood pressure 103 mm[Hg] Nirav Melissa MD Work Phone: [facility] Comment on above: right arm 08-19-2024 15:40-0500 Body temperature 97.1 [degF] Dr. Armando Kohli MD Work Phone: [facility] 08-19-2024 15:40-0500 Diastolic blood pressure 87 mm[Hg] Dr. Armando Kohli MD Work Phone: [facility] 08-19-2024 15:40-0500 Heart rate 70 /min Dr. Armando Kohli MD Work Phone: [facility] 08-19-2024 15:40-0500 Respiratory rate 16 /min Dr. Armando Kohli MD Work Phone: [facility] 08-19-2024 15:40-0500 SaO2% (BldA) [Mass fraction] 93 % Dr. Armando Kohli MD Work Phone: [facility] 08-19-2024 15:40-0500 Systolic blood pressure 102 mm[Hg] Dr. Armando Kohli MD Work Phone: 2(276)361-461044 [place] [address] 08-19-2024 15:35-0500 Inhaled oxygen flow rate 2 L/min Dr. Armando Kohli MD Work Phone: 4(538)467-214274 [place] [address] 08-19-2024 13:05-0500 Body height 165.[address] Armando Kohli MD Work Phone: 9(912)590-752591 [place] [address] 08-19-2024 13:05-0500 Body mass index (BMI) [Ratio] 34.9 kg/m2 Dr. Armando Kohli MD Work Phone: 9(267)884-198691 [place] [address] 08-19-2024 13:05-0500 Body weight 95.[address] Armando Kohli MD Work Phone: 7(757)661-448291 [place] [address] 07-30-2024 10:08-0500 Diastolic blood pressure 59 mm[Hg] Dr. Armando Kohli MD Work Phone: 8(320)681-380891 [place] [address] 07-30-2024 10:08-0500 Heart rate 78 /min Dr. Armando Kohli MD Work Phone: 1(880)281-195291 [place] [address] 07-30-2024 10:08-0500 Systolic blood pressure 101 mm[Hg] Dr. Armando Kohli MD Work Phone: 8(219)765-422191 [place] [address] 07-30-2024 08:48-0500 Body temperature 97.2 [degF] Dr. Armando Kohli MD Work Phone: 8(763)051-306191 [place] [address] 07-30-2024 08:48-0500 Respiratory rate 16 /min Dr. Armando Kohli MD Work Phone: 5(136)198-137591 [place] [address] 07-30-2024 08:48-0500 SaO2% (BldA) [Mass fraction] 98 % Dr. Armando Kohli MD Work Phone: 6(297)956-233291 [place] [address] 07-29-2024 21:07-0500 Inhaled oxygen flow rate 2 L/min Dr. Armando Kohli MD Work Phone: 4(928)491-122091 [place] [address] 07-29-2024 17:07-0500 Body mass index (BMI) [Ratio] 34.4 kg/m2 Dr. Armando Kohli MD Work Phone: 0(002)104-100291 [place] [address] 07-29-2024 17:07-0500 Body weight [address] Armando Kohli MD Work Phone: 6(624)332-684774 [place] [address] 05-24-2024 14:11-0500 Body mass index (BMI) [Ratio] 36.1 kg/m2 Dr. Armando Kohli MD Work Phone: 7(589)876-339374 [place] [address] 05-24-2024 14:11-0500 Body temperature 97.7 [degF] Dr. Armando Kohli MD Work Phone: 4(641)272-531874 [place] [address] 05-24-2024 14:11-0500 Body weight 98.[address] Armando Kohli MD Work Phone: 5(877)681-043859 [address] 05-24-2024 14:11-0500 Diastolic blood pressure 72 mm[Hg] Dr. Armando Kohli MD Work Phone: 7(774)605-391059 [address] 05-24-2024 14:11-0500 Heart rate 74 /min Dr. Armando Kohli MD Work Phone: 9(256)670-543974 [place] [address] 05-24-2024 14:11-0500 Respiratory rate 18 /min Dr. Armando Kohli MD Work Phone: 2(847)476-987974 [place] [address] 05-24-2024 14:11-0500 SaO2% (BldA) [Mass fraction] 96 % Dr. Armando Kohli MD Work Phone: 6(405)152-134174 [place] [address] 05-24-2024 14:11-0500 Systolic blood pressure 124 mm[Hg] Dr. Armando Kohli MD Work Phone: [facility] 05-24-2024 13:42-0500 Body temperature 97.81 [degF] Christofer Moomaw [employer] MACHINE FEEDER.HOTEL OR MOTEL MANAGER Work Phone: [facility] 05-24-2024 13:42-0500 Body weight 98.3 kg Christofer Moomaw MIXER MACHINE FEEDER.HOTEL OR MOTEL MANAGER Work Phone: [facility] 05-24-2024 13:42-0500 Diastolic blood pressure 66 mm[Hg] Christofer Moomaw MIXER MACHINE FEEDER.HOTEL OR MOTEL MANAGER Work Phone: [facility] 05-24-2024 13:42-0500 Heart rate 80 /min Christofer Moomaw MIXER MACHINE FEEDER.HOTEL OR MOTEL MANAGER Work Phone: [facility] 05-24-2024 13:42-0500 Respiratory rate 16 /min Christofer Moomaw MIXER MACHINE FEEDER.HOTEL OR MOTEL MANAGER Work Phone: [facility] 05-24-2024 13:42-0500 SaO2% (BldA) [Mass fraction] 95 % Christofer Moomaw MIXER MACHINE FEEDER.HOTEL OR MOTEL MANAGER Work Phone: [facility] 05-24-2024 13:42-0500 Systolic blood pressure 118 mm[Hg] Christofer Moomaw MIXER MACHINE FEEDER.HOTEL OR MOTEL MANAGER Work Phone: [facility] 05-23-2024 00:23-0500 Body temperature 98.5 [degF] Dr. Armando Kohli MD Work Phone: [facility] 05-23-2024 00:23-0500 Diastolic blood pressure 71 mm[Hg] Dr. Armando Kohli MD Work Phone: [facility] 05-23-2024 00:23-0500 Heart rate 77 /min Dr. Armando Kohli MD Work Phone: [facility] 05-23-2024 00:23-0500 Respiratory rate 16 /min Dr. Armando Kohli MD Work Phone: [facility] 05-23-2024 00:23-0500 SaO2% (BldA) [Mass fraction] 94 % Dr. Armando Kohli MD Work Phone: [facility] 05-23-2024 00:23-0500 Systolic blood pressure 122 mm[Hg] Dr. Armando Kohli MD Work Phone: [facility] 05-12-2024 13:25-0500 Body height 165.1 cm Nirav Melissa MD Work Phone: [facility] Comment on above: verbal 05-12-2024 13:25-0500 Body mass index (BMI) [Ratio] 36.21 kg/m2 Nirav Melissa MD Work Phone: [facility] 05-12-2024 13:25-0500 Body temperature 98.01 [degF] Nirav Melissa MD Work Phone: [facility] 05-12-2024 13:25-0500 Body weight 98.7 kg Nirav Melissa MD Work Phone: [facility] 05-12-2024 13:25-0500 Diastolic blood pressure 69 mm[Hg] Nirav Melissa MD Work Phone: [facility] 05-12-2024 13:25-0500 Heart rate 72 /min Nirav Melissa MD Work Phone: [facility] 05-12-2024 13:25-0500 Systolic blood pressure 123 mm[Hg] Nirav Melissa MD Work Phone: [facility] 05-07-2024 08:20-0500 Body mass index (BMI) [Ratio] 38.2 kg/m2 Dr. Armando Kohli MD Work Phone: [facility] 05-07-2024 08:20-0500 Body temperature 98.2 [degF] Dr. Armando Kohli MD Work Phone: [facility] 05-07-2024 08:20-0500 Body weight 98.[address] Armando Kohli MD Work Phone: [facility] 05-07-2024 08:20-0500 Diastolic blood pressure 70 mm[Hg] Dr. Armando Kohli MD Work Phone: [facility] 05-07-2024 08:20-0500 Heart rate 65 /min Dr. Armando Kohli MD Work Phone: [facility] 05-07-2024 08:20-0500 Respiratory rate 17 /min Dr. Armando Kohli MD Work Phone: [facility] 05-07-2024 08:20-0500 SaO2% (BldA) [Mass fraction] 98 % Dr. Armando Kohli MD Work Phone: [facility] 05-07-2024 08:20-0500 Systolic blood pressure 110 mm[Hg] Dr. Armando Kohli MD Work Phone: [facility] 05-05-2024 08:38-0500 Body mass index (BMI) [Ratio] 38.2 kg/m2 Dr. Armando Kohli MD Work Phone: [facility] 05-05-2024 08:38-0500 Body weight 97.[address] Armando Kohli MD Work Phone: [facility] 05-05-2024 08:38-0500 Diastolic blood pressure 71 mm[Hg] Dr. Armando Kohli MD Work Phone: [facility] 05-05-2024 08:38-0500 Heart rate 72 /min Dr. Armando Kohli MD Work Phone: [facility] 05-05-2024 08:38-0500 Respiratory rate 16 /min Dr. Armando Kohli MD Work Phone: [facility] 05-05-2024 08:38-0500 Systolic blood pressure 111 mm[Hg] Dr. Armando Kohli MD Work Phone: [facility] 09-19-2023 08:23-0400 Body temperature 98 [degF] Dr. Armando Kohli Work Phone: [facility] 09-19-2023 08:23-0400 Body weight 97.[address] Armando Kohli Work Phone: [facility] 09-19-2023 08:23-0400 Diastolic blood pressure 68 mm[Hg] Dr. Armando Kohli Work Phone: [facility] 09-19-2023 08:23-0400 Heart rate 70 /min Dr. Armando Kohli Work Phone: [facility] 09-19-2023 08:23-0400 Respiratory rate 14 /min Dr. Armando Kohli Work Phone: [facility] 09-19-2023 08:23-0400 SaO2% (BldA) [Mass fraction] 98 % Dr. Armando Kohli Work Phone: [facility] 09-19-2023 08:23-0400 Systolic blood pressure 110 mm[Hg] Dr. Armando Kohli Work Phone: [facility] 08-19-2023 13:48-0500 Body temperature 98.2 [degF] Dr. Armando Kohli Work Phone: [facility] 08-19-2023 13:48-0500 Body weight 97.[address] Armando Kohli Work Phone: [facility] 08-19-2023 13:48-0500 Diastolic blood pressure 70 mm[Hg] Dr. Armando Kohli Work Phone: [facility] 08-19-2023 13:48-0500 Heart rate 71 /min Dr. Armando Kohli Work Phone: [facility] 08-19-2023 13:48-0500 Respiratory rate 13 /min Dr. Armando Kohli Work Phone: [facility] 08-19-2023 13:48-0500 SaO2% (BldA) [Mass fraction] 97 % Dr. Armando Kohli Work Phone: [facility] 08-19-2023 13:48-0500 Systolic blood pressure 110 mm[Hg] Dr. Armando Kohli Work Phone: [facility] 07-18-2023 08:32-0500 Body height 160.[address] Armando Kohli Work Phone: [facility] 07-18-2023 08:32-0500 Body mass index (BMI) [Ratio] 37.6 kg/m2 Dr. Armando Kohli Work Phone: [facility] 07-18-2023 08:32-0500 Body temperature 98.2 [degF] Dr. Armando Kohli Work Phone: [facility] 07-18-2023 08:32-0500 Body weight 96.[address] Armando Kohli Work Phone: [facility] 07-18-2023 08:32-0500 Diastolic blood pressure 72 mm[Hg] Dr. Armando Kohli Work Phone: [facility] 07-18-2023 08:32-0500 Heart rate 72 /min Dr. Armando Kohli Work Phone: [facility] 07-18-2023 08:32-0500 Respiratory rate 17 /min Dr. Armando Kohli Work Phone: [facility] 07-18-2023 08:32-0500 SaO2% (BldA) [Mass fraction] 98 % Dr. Armando Kohli Work Phone: [facility] 07-18-2023 08:32-0500 Systolic blood pressure 108 mm[Hg] Dr. Armando Kohli Work Phone: [facility] 06-18-2023 09:01-0500 Body temperature 98.6 [degF] Dr. Armando Kohli Work Phone: [facility] 06-18-2023 09:01-0500 Body weight 95.[address] Armando Kohli Work Phone: [facility] 06-18-2023 09:01-0500 Diastolic blood pressure 64 mm[Hg] Dr. Armando Kohli Work Phone: [facility] 06-18-2023 09:01-0500 Heart rate 84 /min Dr. Armando Kohli Work Phone: [facility] 06-18-2023 09:01-0500 Respiratory rate 16 /min Dr. Armando Kohli Work Phone: [facility] 06-18-2023 09:01-0500 SaO2% (BldA) [Mass fraction] 96 % Dr. Armando Kohli Work Phone: [facility] 06-18-2023 09:01-0500 Systolic blood pressure 100 mm[Hg] Dr. Armando Kohli Work Phone: 2(266)[phone] [place] [address] 05-16-2023 13:00-0500 Body mass index (BMI) [Ratio] 37 kg/m2 Dr. Armando Kohli Work Phone: [facility] 05-16-2023 13:00-0500 Body weight 94.[address] Armando Kohli Work Phone: [facility] 05-16-2023 13:00-0500 Diastolic blood pressure 68 mm[Hg] Dr. Armando Kohli Work Phone: [facility] 05-16-2023 13:00-0500 Heart rate 78 /min Dr. Armando Kohli Work Phone: [facility] 05-16-2023 13:00-0500 Respiratory rate 16 /min Dr. Armando Kohli Work Phone: [facility] 05-16-2023 13:00-0500 Systolic blood pressure 113 mm[Hg] Dr. Armando Kohli Work Phone: [facility] 05-14-2023 08:07-0500 Body height 160.[address] Armando Kohli Work Phone: [facility] 05-14-2023 08:07-0500 Body mass index (BMI) [Ratio] 37.2 kg/m2 Dr. Armando Kohli Work Phone: [facility] 05-14-2023 08:07-0500 Body temperature 98.2 [degF] Dr. Armando Kohli Work Phone: [facility] 05-14-2023 08:07-0500 Body weight 95.[address] Armando Kohli Work Phone: [facility] 05-14-2023 08:07-0500 Diastolic blood pressure 70 mm[Hg] Dr. Armando Kohli Work Phone: [facility] 05-14-2023 08:07-0500 Heart rate 78 /min Dr. Armando Kohli Work Phone: [facility] 05-14-2023 08:07-0500 Respiratory rate 16 /min Dr. Armando Kohli Work Phone: [facility] 05-14-2023 08:07-0500 SaO2% (BldA) [Mass fraction] 95 % Dr. Armando Kohli Work Phone: [facility] 05-14-2023 08:07-0500 Systolic blood pressure 115 mm[Hg] Dr. Armando Kohli Work Phone: [facility] 04-01-2023 07:53-0400 Body height 160.[address] Armando Kohli Work Phone: [facility] 04-01-2023 07:53-0400 Body mass index (BMI) [Ratio] 36.8 kg/m2 Dr. Armando Kohli Work Phone: 8(770)[phone] [address] 04-01-2023 07:53-0400 Body temperature 98 [degF] Dr. Armando Kohli Work Phone: 4(930)[phone] [address] 04-01-2023 07:53-0400 Body weight 94.[address] Armando Kohli Work Phone: [facility] 04-01-2023 07:53-0400 Diastolic blood pressure 60 mm[Hg] Dr. Armando Kohli Work Phone: [facility] 04-01-2023 07:53-0400 Heart rate 65 /min Dr. Armando Kohli Work Phone: [facility] 04-01-2023 07:53-0400 Respiratory rate 17 /min Dr. Armando Kohli Work Phone: [facility] 04-01-2023 07:53-0400 SaO2% (BldA) [Mass fraction] 94 % Dr. Armando Kohli Work Phone: [facility] 04-01-2023 07:53-0400 Systolic blood pressure 108 mm[Hg] Dr. Armando Kohli Work Phone: [facility] 11-29-2022 17:13-0400 Diastolic blood pressure 74 mm[Hg] Dr. Armando Kohli Work Phone: 9(856)[phone] [place] [address] 11-29-2022 17:13-0400 Heart rate 101 /min Dr. Armando Kohli Work Phone: [facility] 11-29-2022 17:13-0400 Systolic blood pressure 109 mm[Hg] Dr. Armando Kohli Work Phone: [facility] 11-29-2022 08:52-0400 Body height 160.[address] Armando Kohli Work Phone: [facility] 11-29-2022 08:52-0400 Body mass index (BMI) [Ratio] 37.7 kg/m2 Dr. Armando Kohli Work Phone: [facility] 11-29-2022 08:52-0400 Body temperature 99.5 [degF] Dr. Armando Kohli Work Phone: [facility] 11-29-2022 08:52-0400 Body weight 96.[address] Armando Kohli Work Phone: [facility] 11-29-2022 08:52-0400 Respiratory rate 17 /min Dr. Armando Kohli Work Phone: [facility] 11-29-2022 08:52-0400 SaO2% (BldA) [Mass fraction] 94 % Dr. Armando Kohli Work Phone: [facility] 11-22-2022 13:54-0400 Body mass index (BMI) [Ratio] 37.3 kg/m2 Dr. Armando Kohli Work Phone: [facility] 11-22-2022 13:54-0400 Body weight 95.[address] Armando Kohli Work Phone: [facility] 11-22-2022 13:54-0400 Diastolic blood pressure 65 mm[Hg] Dr. Armando Kohli Work Phone: [facility] 11-22-2022 13:54-0400 Heart rate 80 /min Dr. Armando Kohli Work Phone: [facility] 11-22-2022 13:54-0400 Respiratory rate 16 /min Dr. Armando Kohli Work Phone: [facility] 11-22-2022 13:54-0400 Systolic blood pressure 105 mm[Hg] Dr. Armando Kohli Work Phone: [facility] 05-21-2022 14:00-0500 Body height 160.[address] Armando Kohli Work Phone: [facility] 05-21-2022 14:00-0500 Body mass index (BMI) [Ratio] 37.3 kg/m2 Dr. Armando Kohli Work Phone: [facility] 05-21-2022 14:00-0500 Body weight 95.[address] Armando Kohli Work Phone: [facility] 05-21-2022 14:00-0500 Diastolic blood pressure 62 mm[Hg] Dr. Armando Kohli Work Phone: [facility] 05-21-2022 14:00-0500 Heart rate 84 /min Dr. Armando Kohli Work Phone: [facility] 05-21-2022 14:00-0500 Respiratory rate 18 /min Dr. Armando Kohli Work Phone: [facility] 05-21-2022 14:00-0500 Systolic blood pressure 110 mm[Hg] Dr. Armando Kohli Work Phone: [facility] 03-13-2022 10:56-0400 Body height 160.[address] Armando Kohli Work Phone: [facility] Work Phone: 03-13-2022 10:56-0400 Body mass index (BMI) [Ratio] 37.5 kg/m2 Dr. Armando Kohli Work Phone: [facility] Work Phone: 03-13-2022 10:56-0400 Body weight 96.[address] Armando Kohli Work Phone: [facility] Work Phone: 03-13-2022 10:56-0400 Diastolic blood pressure 65 mm[Hg] Dr. Armando Kohli Work Phone: [facility] Work Phone: 03-13-2022 10:56-0400 Heart rate 82 /min Dr. Armando Kohli Work Phone: [facility] Work Phone: 03-13-2022 10:56-0400 Respiratory rate 16 /min Dr. Armando Kohli Work Phone: [facility] Work Phone: 03-13-2022 10:56-0400 Systolic blood pressure 107 mm[Hg] Dr. Armando Kohli Work Phone: [facility] Work Phone: 01-29-2022 08:27-0400 Body height 160.[address] Armando Kohli Work Phone: [facility] Work Phone: 01-29-2022 08:26-0400 Body mass index (BMI) [Ratio] 37.2 kg/m2 Dr. Armando Kohli Work Phone: [facility] Work Phone: 01-29-2022 08:26-0400 Body weight 95.[address] Armando Kohli Work Phone: [facility] Work Phone: 01-29-2022 08:26-0400 Diastolic blood pressure 72 mm[Hg] Dr. Armando Kohli Work Phone: [facility] Work Phone: 01-29-2022 08:26-0400 Heart rate 90 /min Dr. Armando Kohli Work Phone: [facility] Work Phone: 01-29-2022 08:26-0400 Respiratory rate 18 /min Dr. Armando Kohli Work Phone: [facility] Work Phone: 01-29-2022 08:26-0400 SaO2% (BldA) [Mass fraction] 95 % Dr. Armando Kohli Work Phone: [facility] Work Phone: 01-29-2022 08:26-0400 Systolic blood pressure 114 mm[Hg] Dr. Armando Kohli Work Phone: [facility] Work Phone: 10-25-2021 14:38-0400 Body height 160.[address] Armando Kohli Work Phone: [facility] Work Phone: 10-25-2021 14:38-0400 Body mass index (BMI) [Ratio] 38.1 kg/m2 Dr. Armando Kohli Work Phone: [facility] Work Phone: 10-25-2021 14:38-0400 Body weight 97.[address] Armando Kohli Work Phone: [facility] Work Phone: 10-25-2021 14:38-0400 Diastolic blood pressure 70 mm[Hg] Dr. Armando Kohli Work Phone: [facility] Work Phone: 10-25-2021 14:38-0400 Heart rate 110 /min Dr. Armando Kohli Work Phone: [facility] Work Phone: 10-25-2021 14:38-0400 Respiratory rate 18 /min Dr. Armando Kohli Work Phone: [facility] Work Phone: 10-25-2021 14:38-0400 SaO2% (BldA) [Mass fraction] 96 % Dr. Armando Kohli Work Phone: [facility] Work Phone: 10-25-2021 14:38-0400 Systolic blood pressure 130 mm[Hg] Dr. Armando Kohli Work Phone: [facility] Work Phone: 10-25-2021 14:38-0400 Body height 160.[address] Armando Kohli Work Phone: [facility] Work Phone: 10-25-2021 14:38-0400 Body mass index (BMI) [Ratio] 38.1 kg/m2 Dr. Armando Kohli Work Phone: [facility] Work Phone: 10-25-2021 14:38-0400 Body weight 97.[address] Armando Kohli Work Phone: [facility] Work Phone: 10-25-2021 14:38-0400 Diastolic blood pressure 70 mm[Hg] Dr. Armando Kohli Work Phone: [facility] Work Phone: 10-25-2021 14:38-0400 Heart rate 110 /min Dr. Armando Kohli Work Phone: [facility] Work Phone: 10-25-2021 14:38-0400 Respiratory rate 18 /min Dr. Armando Kohli Work Phone: [facility] Work Phone: 10-25-2021 14:38-0400 SaO2% (BldA) [Mass fraction] 96 % Dr. Armando Kohli Work Phone: [facility] Work Phone: 10-25-2021 14:38-0400 Systolic blood pressure 130 mm[Hg] Dr. Armando Kohli Work Phone: [facility] Work Phone: 01-28-2017 14:43-0400 BMI (Body Mass Index) 37.27 kg/m2 Tu Tracy [facility] Work Phone: 01-28-2017 14:43-0400 BP Diastolic 84 mm[Hg] Tu Tracy [facility] Work Phone: 01-28-2017 14:43-0400 BP Systolic 128 mm[Hg] [facility] Work Phone: 01-28-2017 14:43-0400 Height 165.1 cm [facility] Work Phone: 01-28-2017 14:43-0400 Pulse (Heart Rate) 90 /min [facility] Work Phone: 01-28-2017 14:43-0400 Weight 101.61 kg [facility] Work Phone: 01-28-2017 14:43-0400 Weight 101.6 kg Tu [facility] Work Phone: 10-23-2016 13:50-0400 BMI (Body Mass Index) 37.37 kg/m2 [facility] Work Phone: 10-23-2016 13:50-0400 BP Diastolic 50 mm[Hg] [facility] Work Phone: 10-23-2016 13:50-0400 BP Systolic 82 mm[Hg] [facility] Work Phone: 10-23-2016 13:50-0400 Height 165.1 cm [facility] Work Phone: 10-23-2016 13:50-0400 Pulse (Heart Rate) 88 /min [facility] Work Phone: 10-23-2016 13:50-0400 Respiratory Rate 20 /min [facility] Work Phone: 10-23-2016 13:50-0400 Weight 101.88 kg [facility] Work Phone: 10-12-2016 09:44-0400 Heart rate 82 /min Rylee Kulkarni RN [facility] Work Phone: 10-12-2016 09:12-0400 BMI (Body Mass Index) 37.34 kg/m2 Ghada Munoz [employer] Work Phone: 10-12-2016 09:12-0400 BP Diastolic 60 mm[Hg] Ghada Munoz [employer] Work Phone: 10-12-2016 09:12-0400 BP Systolic 100 mm[Hg] Ghada Munoz [employer] Work Phone: 10-12-2016 09:12-0400 Height 165.1 cm Ghada Munoz [employer] Work Phone: 10-12-2016 09:12-0400 Pulse (Heart Rate) 82 /min Ghada Munoz [employer] Work Phone: 10-12-2016 09:12-0400 Pulse Oximetry 96 % Ghada Munoz [employer] Work Phone: 10-12-2016 09:12-0400 Respiratory Rate 20 /min Ghada Munoz [employer] Work Phone: 10-12-2016 09:12-0400 Weight 101.79 kg Ghada Munoz [employer] Work Phone: 04-10-2016 13:33-0400 BSA (Body Surface Area) 2.07 m2 Ghada Munoz [employer] Work Phone: 04-16-2013 10:35-0400 Heart rate 395 ms Rylee Kulkarni RN [place] [employer] Work Phone: Encounters Encounter Date Encounter Type Care Provider Facility Start: 04-28-2025 ambulatory SARAH Devi y:[facility] Start: 04-27-2025 ambulatory Marjan Lou ty:[facility] Start: 04-26-2025 End: 04-26-2025 Postop follow up visit related to original px Maxine Mock MIXER MACHINE FEEDER-HOTEL OR MOTEL MANAGER Work Phone: [facility] Comment on above: Spinal cord compress ion (Primary Dx); S/P discectomy Start: 04-26-2025 ambulatory ARMANDO KOHLI Facility :[facility] Start: 04-14-2025 End: 04-14-2025 ambulatory Armando Kohli Facility:[facility] Start: 04-12-2025 End: 04-12-2025 Office consultation new/estab patient 80 min Tee Oliveira MD Work Phone: [facility] Comment on above: Weakness of extremit y (Primary Dx) Start: 04-12-2025 ambulatory ARMANDO KOHLI Facility :[facility] Start: 04-06-2025 End: 04-10-2025 Evaluation and management of inpatient [facility] Start: 04-06-2025 ambulatory [facility] Start: 04-05-2025 End: 04-09-2025 Evaluation and management of inpatient [facility] Start: 04-05-2025 End: 04-09-2025 Evaluation and management of inpatient [facility] Start: 04-05-2025 End: 04-09-2025 Evaluation and management of inpatient [facility] Start: 04-02-2025 End: 04-06-2025 Evaluation and management of inpatient [facility] Start: 04-02-2025 End: 04-06-2025 Evaluation and management of inpatient [facility] Start: 04-01-2025 End: 04-05-2025 Evaluation and management of inpatient [facility] Start: 04-01-2025 End: 04-05-2025 Evaluation and management of inpatient [facility] Start: 03-31-2025 ambulatory Armando Kohli Facility:[facility] Start: 03-31-2025 End: 04-04-2025 Evaluation and management of inpatient [facility] Start: 03-31-2025 End: 04-04-2025 Evaluation and management of inpatient [facility] Start: 03-30-2025 End: 04-03-2025 Evaluation and management of inpatient [facility] Start: 03-30-2025 End: 04-03-2025 Evaluation and management of inpatient [facility] Start: 03-29-2025 End: 04-02-2025 Evaluation and management of inpatient [facility] Start: 03-29-2025 End: 04-02-2025 Evaluation and management of inpatient [facility] Start: 03-29-2025 End: 04-02-2025 Evaluation and management of inpatient [facility] Start: 03-27-2025 End: 03-31-2025 Evaluation and management of inpatient [facility] Start: 03-26-2025 End: 03-26-2025 Orders Only Aparna Miles RN [facility] Comment on above: 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) Start: 03-26-2025 End: 03-30-2025 Evaluation and management of inpatient [facility] Start: 03-26-2025 End: 03-30-2025 Evaluation and management of inpatient [facility] Start: 03-25-2025 End: 03-29-2025 Evaluation and management of inpatient [facility] Start: 03-24-2025 End: 03-28-2025 Evaluation and management of inpatient [facility] Start: 03-24-2025 End: 03-28-2025 Evaluation and management of inpatient [facility] Start: 03-24-2025 End: 03-28-2025 Evaluation and management of inpatient [facility] Start: 03-23-2025 End: 04-07-2025 Evaluation and management of inpatient Rogelio Espinosa MD Work Phone: [facility] Start: 03-11-2025 End: 03-23-2025 Evaluation and management of inpatient Doretha Brandon MD Work Phone: [id number] Start: 03-05-2025 End: 03-06-2025 Evaluation and management of inpatient Doretha Brandon MD Work Phone: [id number] Comment on above: Thoracic spinal sten osis Start: 03-04-2025 ambulatory DORETHA BRANDON Facility:[facility] Start: 02-25-2025 End: 02-25-[address] Armando Kohli MD Work Phone: [facility] Start: 02-25-2025 End: 02-25-[address] Marjan Rasmussen MD -[facility] [place] Work Phone: Start: 02-25-2025 End: 02-25-2025 [facility] Facility[facility] Start: 02-11-2025 End: 02-11-2025 Subsequent hospital visit by physician Doretha Brandon MD Work Phone: [facility] Comment on above: Arrived Start: 02-11-2025 ambulatory DORETHA BRANDON Facility:[facility] Start: 02-10-2025 End: 02-10-[address] Armando Kohli MD Work Phone: [facility] Start: 02-10-2025 End: 02-10-[address] Armando Kohli MD [facility] Work Phone: Start: 02-10-2025 End: 02-10-2025 ambulatory Armando Kohli Facility:[facility] Start: 02-04-2025 End: 02-04-[address] Armando Kohli MD Work Phone: -[facility]iology [place] Start: 02-04-2025 End: 02-04-[address] Armando Kohli MD -[facility] [place] Work Phone: Start: 02-04-2025 End: 02-04-2025 ambulatory Armando Kohli Facility:[facility] Start: 01-27-2025 End: 01-27-[address] Armando Kohli MD Work Phone: -[facility] Start: 01-27-2025 End: 01-27-[address] Marjan Rasmussen MD -Cat Scan [facility] Work Phone: Start: 01-27-2025 End: 01-27-2025 ambulatory Marjan Rasmussen Facility:[facility] Start: 01-12-2025 End: 01-12-[address] Armando Kohli MD Work Phone: -Cat Scan [facility] Start: 01-12-2025 End: 01-12-[address] Marjan Rasmussen MD -Cat Scan [facility] Work Phone: Start: 01-11-2025 End: 01-11-2025 Office consultation new/estab patient 80 min Doretha Brandon MD Work Phone: [facility] [place] Comment on above: Lumbar radiculopathy (Primary Dx); Paraparesis Start: 01-11-2025 ambulatory DORETHA BRANDON Facility:[facility] Start: 01-11-2025 End: 01-11-2025 Subsequent hospital visit by physician Doretha Brandon MD Work Phone: [facility] [place] Comment on above: Arrived Start: 01-11-2025 End: 01-12-[address] Armando Kohli MD Work Phone: -[facility] Start: 01-11-2025 End: 01-11-[address] Maxwell Torres DO -Laboratory [place] Work Phone: Start: 01-11-2025 End: 01-11-2025 ambulatory Maxwell Akrenata Facility:[facility] Start: 12-31-2024 End: 12-31-[address] Armando Kohli MD Work Phone: -[facility] Start: 12-31-2024 End: 12-31-[address] [facility] Work Phone: Start: 12-31-2024 End: 12-31-2024 ambulatory Maxwell Torres Facility:[facility] Start: 12-11-2024 End: 12-11-2024 Patient encounter procedure Rylee GREENE -[facility] Work Phone: Start: 12-11-2024 End: 12-11-[address] Armando Kohli MD Work Phone: -[facility] Start: 12-11-2024 End: 12-11-2024 ambulatory Rylee GREENE Facility:[facility] Start: 11-29-2024 End: 11-29-2024 Emergency department patient visit Dr. Armando Kohli MD Work Phone: -Emergency Department Work Phone: Start: 11-04-2024 End: 11-04-[address] Armando Kohli MD Work Phone: [facility] Work Phone: Start: 11-04-2024 End: 11-04-[address] Maxwell Barcenas [place] Work Phone: Start: 11-04-2024 End: 11-04-2024 ambulatory Armando Kohli Facility:[facility] Start: 08-26-2024 End: 08-26-[address] Armando Kohli MD Work Phone: [facility] Work Phone: Start: 08-26-2024 End: 08-26-[address] [facility] Start: 08-25-2024 End: 08-25-2024 Office outpatient visit 15 minutes Nirav Melissa MD Work Phone: [facility] Comment on above: Lumbar radiculopathy (Primary Dx) Start: 08-25-2024 ambulatory ARMANDO KOHLI Facility :[facility] Start: 08-25-2024 End: 08-26-2024 ambulatory ARMANDO KOHLI Facility:[facility] Start: 08-25-2024 End: 08-25-2024 Subsequent hospital visit by physician Nirav Melissa MD Work Phone: [facility] Comment on above: Arrived Start: 08-19-2024 End: 08-19-2024 Admission to same day surgery center Dr. Marjan Rasmussen MD -Endoscopy Work Phone: Start: 08-19-2024 End: 08-19-2024 ambulatory Armando Kohli Facility:[facility] Start: 08-19-2024 Non-patient / Non-visit Dr. Jese Perez MD -[facility] Work Phone: Start: 08-13-2024 End: 08-13-[address] Armando Kohli MD Work Phone: [facility] Work Phone: Start: 08-13-2024 End: 08-13-[address] Marjan Rasmussen MD -Laboratory, [place] Work Phone: Start: 08-13-2024 End: 08-13-2024 ambulatory [facility] Facility:[facility] Start: 08-05-2024 End: 08-05-[address] Marjan Rasmussen MD -[facility] Work Phone: Start: 08-05-2024 End: 08-05-2024 ambulatory [facility] Facility:[facility] Start: 07-29-2024 End: 07-30-2024 ambulatory Avinash Lombardi Facility:[facility] Start: 07-29-2024 End: 07-30-2024 Evaluation and management of inpatient Dr. Avinash Lombardi MD -Medical Surgical 3 Work Phone: Start: 06-29-2024 End: 06-29-2024 ambulatory SARAH PEARL [facility] Facility:[facility] Start: 06-29-2024 End: 06-29-[address] Armando Kohli MD Work Phone: -Physical Therapy Work Phone: Start: 06-08-2024 End: 06-08-2024 Subsequent hospital visit by physician Nirav Melissa MD Work Phone: Neurodiagnostic Testing [facility] Comment on above: Arrived Start: 06-08-2024 ambulatory ARMANDO KOHLI Facility :[facility] Start: 06-02-2024 ambulatory Alyson Collier Facility:[facility] Start: 06-02-2024 Non-patient / Non-visit Dr. Leeanne Blanca MD -[facility] Start: 05-29-2024 ambulatory Leeanne Blanca Fa cility:[facility] Start: 05-29-2024 Non-patient / Non-visit Dr. Leeanne Blanca MD -[facility] Start: 05-29-2024 End: 05-29-[address] Alyson Collier MD -Cardiovascular Services Work Phone: Start: 05-29-2024 End: 05-29-[address] [facility] Start: 05-24-2024 End: 05-24-2024 Emergency department patient visit Dr. Edilberto Manuel DO -Emergency Department Work Phone: Start: 05-24-2024 End: 05-24-2024 ambulatory Facility:[facility] Start: 05-24-2024 End: 05-24-2024 Patient encounter procedure Christofer Narennitzacyrus HOTEL OR MOTEL MANAGER Work Phone: [facility] Comment on above: Facial cellulitis (P rimary Dx) Start: 05-22-2024 End: 05-23-2024 Emergency department patient visit Dr. Chito Sanchez -Emergency Department Work Phone: Start: 05-12-2024 ambulatory ARMANDO KOHLI Facility :[facility] Start: 05-12-2024 End: 05-12-2024 Office outpatient new 45 minutes Nirav Melissa MD Work Phone: [facility] Comment on above: Lumbar radiculopathy (Primary Dx); Type 2 diabetes mellitus with diabetic neuropathy, without long-term current use of insulin Start: 05-12-2024 ambulatory ARMANDO KOHLI Facility :[facility] Start: 05-07-2024 End: 05-07-2024 ambulatory Tino Gamble Facility:[place] Start: 05-07-2024 End: 05-07-[address] Tino Gamble MD -[facility] Work Phone: Start: 05-07-2024 End: 05-07-2024 [facility] Start: 05-05-2024 End: 05-05-[address] Alyson Collier MD -[facility] Work Phone: Start: 05-05-2024 End: 05-05-2024 ambulatory Alyson Collier Facility:[place] Start: 09-19-2023 End: 09-19-[address] Armando Kohli Work Phone: [facility] Work Phone: Start: 09-19-2023 End: 09-19-[address] Armando Kohli Work Phone: [facility] Work Phone: Start: 09-12-2023 End: 09-12-[address] Armando Kohli Work Phone: [facility] Work Phone: Start: 09-12-2023 End: 09-12-[address] Armando Kohli Work Phone: [facility] Work Phone: Start: 08-19-2023 End: 08-19-[address] Armando Kohli Work Phone: [facility] Work Phone: Start: 07-18-2023 End: 07-18-[address] Armando Kohli Work Phone: [facility] Work Phone: Start: 07-18-2023 End: 07-18-[address] Armando Kohli Work Phone: [facility] Work Phone: Start: 06-18-2023 End: 06-18-[address] Armando Kohli Work Phone: [facility] Work Phone: Start: 05-16-2023 End: 05-16-[address] Armando Kohli Work Phone: [facility] Work Phone: Start: 05-14-2023 End: 05-14-[address] Armando Kohli Work Phone: [facility] Work Phone: Start: 05-14-2023 End: 05-14-[address] Armando Kohli Work Phone: [facility] Work Phone: Start: 05-14-2023 End: 05-14-[address] Armando Kohli Work Phone: [facility] Work Phone: Start: 04-22-2023 End: 04-22-[address] Armando Kohli Work Phone: [facility] Work Phone: Start: 04-22-2023 End: 04-22-[address] Armando Kohli Work Phone: [facility] Work Phone: Start: 04-01-2023 End: 04-01-[address] Armando Kohli Work Phone: [facility] Work Phone: Start: 04-01-2023 End: 04-01-[address] Armando Kohli Work Phone: [facility] Work Phone: Start: 02-08-2023 End: 02-08-[address] Armando Kohli Work Phone: [facility] Work Phone: Start: 02-08-2023 End: 02-08-[address] Armando Kohli Work Phone: [facility] Work Phone: Start: 01-29-2023 End: 01-29-[address] Armando Kohli Work Phone: [facility] Work Phone: Start: 01-29-2023 End: 01-29-[address] [facility] Start: 12-31-2022 End: 12-31-[address] [facility] Start: 12-05-[address] Armando Kohli Work Phone: [facility]-Physical Therapy Start: 12-03-2022 End: 12-03-[address] Armando Kohli Work Phone: [facility] Work Phone: Start: 12-03-2022 End: 12-03-[address] Armando Kohli Work Phone: [facility] Start: 11-29-2022 End: 11-29-[address] Armando Kohli Work Phone: [facility] Start: 11-22-2022 End: 11-22-[address] Armando Kohli Work Phone: [facility] Start: 10-23-2022 End: 10-23-[address] Armando Kohli Work Phone: [facility] Work Phone: Start: 10-23-2022 End: 10-23-[address] Armando Kohli Work Phone: [facility] Start: 10-10-2022 End: 10-10-[address] Armando Kohli Work Phone: [facility] Work Phone: Start: 10-10-2022 End: 10-10-[address] Armando Kohli Work Phone: [facility] Start: 09-28-2022 End: 09-28-[address] Armando Kohli Work Phone: [facility] Start: 08-09-2022 End: 08-09-[address] Armando Kohli Work Phone: [facility] Work Phone: Start: 08-09-2022 End: 08-09-[address] [facility] Start: 08-06-2022 End: 08-06-[address] Armando Kohli Work Phone: [facility] Work Phone: Start: 08-06-2022 End: 08-06-[address] Armando Kohli Work Phone: [facility] Start: 07-25-2022 End: 07-25-[address] Armando Kohli Work Phone: [facility] Start: 07-04-2022 End: 07-04-[address] Armando Kohli Work Phone: [facility] Work Phone: Start: 07-04-2022 End: 07-04-[address] [facility] Start: 05-21-2022 End: 05-21-[address] Armando Kohli Work Phone: [facility] Start: 05-18-2022 End: 05-18-[address] Armando Kohli Work Phone: [facility] Work Phone: Start: 05-18-2022 End: 05-18-[address] Armando Kohli Work Phone: [facility] Start: 05-16-2022 End: 05-16-[address] Armando Kohli Work Phone: [facility] Work Phone: Start: 05-16-2022 End: 05-16-[address] Armando Kohli Work Phone: [facility]-Pulmonary Services/Neurology Start: 04-18-2022 End: 04-18-[address] Armando Kohli Work Phone: [facility] Work Phone: Start: 04-18-2022 End: 04-18-[address] Armando Kohli Work Phone: [facility] Start: 03-13-2022 Non-patient / Non-visit Dr. Armando Kohli Work Phone: [facility] Start: 03-13-2022 End: 03-13-[address] Armando Kohli Work Phone: [facility] Work Phone: Start: 03-13-2022 End: 03-13-[address] Armando Kohli Work Phone: [facility]-Cardiovascular Services Start: 03-13-2022 End: 03-13-[address] Armando Kohli Work Phone: [facility] Start: 02-15-2022 Non-patient / Non-visit Dr. Armando Kohli Work Phone: [facility] Start: 02-15-2022 End: 02-15-[address] Armando Kohli Work Phone: [facility] Work Phone: Start: 02-15-2022 End: 02-15-[address] [facility] Start: 01-29-2022 End: 01-29-[address] Armando Kohli Work Phone: [facility] Start: 01-01-2022 End: 01-01-[address] Armando Kohli Work Phone: [facility] Start: 11-23-2021 End: 11-23-[address] Armando Kohli Work Phone: [facility] Start: 10-31-2021 End: 10-31-[address] Armando Kohli Work Phone: [facility] Start: 10-26-2021 End: 10-26-[address] Armando Kohli Work Phone: [facility], Specimen Start: 10-25-2021 End: 10-25-[address] Armando Kohli Work Phone: [facility] Start: 10-11-2021 End: 10-11-2021 Patient encounter procedure [facility] Start: 07-25-2018 End: 07-25-2018 Telephone encounter Allyson Medina [employer] Comment on above: Change In Symptoms Procedures Date Procedure Procedure Detail Performing Clinician Start: 04-07-2025 Glucose measurement Arnol Blanco MD Work Phone: Start: 04-07-2025 Glucose measurement Arnol Blanco MD Work Phone: Start: 04-06-2025 Glucose measurement Arnol Blanco MD Work Phone: Start: 04-06-2025 Glucose measurement Arnol Blanco MD Work Phone: Start: 04-06-2025 Glucose measurement Arnol Blanco MD Work Phone: Start: 04-06-2025 Glucose measurement [facility] austin Blanco MD Work Phone: Start: 04-05-2025 Glucose measurement [facility] austin Blanco MD Work Phone: Start: 04-05-2025 Glucose measurement [facility] austin Blanco MD Work Phone: Start: 04-05-2025 Glucose measurement [facility] Work Phone: Start: 04-05-2025 Glucose measurement [facility] Work Phone: Start: 04-04-2025 Glucose measurement [facility] Work Phone: Start: 04-04-2025 Glucose measurement [facility] Work Phone: Start: 04-04-2025 Glucose measurement [facility] Work Phone: Start: 04-04-2025 Glucose measurement [facility] Work Phone: Start: 04-03-2025 Glucose measurement [facility] Work Phone: Start: 04-03-2025 Glucose measurement [facility] Work Phone: Start: 04-03-2025 Glucose measurement [facility] Work Phone: Start: 04-03-2025 Glucose measurement [facility] Work Phone: Start: 04-02-2025 Glucose measurement [facility] Work Phone: Start: 04-02-2025 Glucose measurement [facility] Work Phone: Start: 04-02-2025 Glucose measurement [facility] Work Phone: Start: 04-02-2025 Glucose measurement [facility] Work Phone: Start: 04-01-2025 Glucose measurement [facility] Work Phone: Start: 04-01-2025 Glucose measurement [facility] Work Phone: Start: 04-01-2025 End: 04-01-2025 Glucose measurement [facility] Work Phone: Start: 03-31-2025 Glucose measurement [facility] Work Phone: Start: 03-31-2025 Glucose measurement [facility] Work Phone: Start: 03-31-2025 Glucose measurement [facility] Work Phone: Start: 03-31-2025 Glucose measurement [facility] Work Phone: Start: 03-30-2025 Glucose measurement [facility] Work Phone: Start: 03-30-2025 Glucose measurement [facility] Work Phone: Start: 03-30-2025 Glucose measurement [facility] Work Phone: Start: 03-30-2025 Glucose measurement [facility] Work Phone: Start: 03-30-2025 Basic metabolic pane l calcium total Rogelio Lenora Espinosa MD Work Phone: Start: 03-30-2025 Iaad ia clostridium difficile toxin Cecilia Moeller PA-C Work Phone: Start: 03-29-2025 Glucose measurement [facility] Work Phone: Start: 03-29-2025 Glucose measurement [facility] Work Phone: Start: 03-29-2025 Glucose measurement [facility] Work Phone: Start: 03-29-2025 Glucose measurement [facility] Work Phone: Start: 03-28-2025 Glucose measurement [facility] Work Phone: Start: 03-28-2025 Glucose measurement [facility] Work Phone: Start: 03-28-2025 Glucose measurement [facility] Work Phone: Start: 03-28-2025 Glucose measurement [facility] Work Phone: Start: 03-27-2025 Glucose measurement [facility] Work Phone: Start: 03-27-2025 Glucose measurement [facility] Work Phone: Start: 03-27-2025 Glucose measurement [facility] Work Phone: Start: 03-27-2025 Glucose measurement [facility] Work Phone: Start: 03-26-2025 Glucose measurement [facility] Work Phone: Start: 03-26-2025 Glucose measurement [facility] Work Phone: Start: 03-26-2025 Glucose measurement [facility] Work Phone: Start: 03-26-2025 Glucose measurement [facility] Work Phone: Start: 03-25-2025 Glucose measurement [facility] Work Phone: Start: 03-25-2025 Glucose measurement [facility] Work Phone: Start: 03-25-2025 Glucose measurement [facility] Work Phone: Start: 03-25-2025 Glucose measurement [facility] Work Phone: Start: 03-24-2025 Glucose measurement [facility] Work Phone: Start: 03-24-2025 Glucose measurement [facility] Work Phone: Start: 03-24-2025 Glucose measurement [facility] Work Phone: Start: 03-24-2025 Glucose measurement [facility] Work Phone: Start: 03-24-2025 Complete blood count with white cell differential, manual Oma Smart HOTEL OR MOTEL MANAGER Work Phone: Start: 03-24-2025 Comprehensive metabo lic panel Oma Smart HOTEL OR MOTEL MANAGER Work Phone: Start: 03-23-2025 Glucose measurement [facility] austin Blanco MD Work Phone: Start: 03-23-2025 Glucose measurement [facility] austin Blanco MD Work Phone: Start: 03-23-2025 Glucose measurement, blood Doretha Brandon MD Work Phone: Start: 03-23-2025 Glucose measurement, blood Doretha Brandon MD Work Phone: Start: 03-23-2025 Electrolyte panel Hollie Greene MIXER MACHINE FEEDER-HOTEL OR MOTEL MANAGER Work Phone: Start: 03-22-2025 Glucose measurement, blood Doretha Brandon MD Work Phone: Start: 03-22-2025 Glucose measurement, blood Doretha Brandon MD Work Phone: Start: 03-22-2025 Glucose measurement, blood Doretha Brandon MD Work Phone: Start: 03-22-2025 Glucose measurement, blood Doretha Brandon MD Work Phone: Start: 03-22-2025 Creatinine blood Kayla Greene MIXER MACHINE FEEDER-HOTEL OR MOTEL MANAGER Work Phone: Start: 03-21-2025 Glucose measurement, blood Doretha Brandon MD Work Phone: Start: 03-21-2025 Glucose measurement, blood Doretha Brandon MD Work Phone: Start: 03-21-2025 Glucose measurement, blood Doretha Brandon MD Work Phone: Start: 03-21-2025 Glucose measurement, blood Doretha Brandon MD Work Phone: Start: 03-21-2025 Creatinine blood Kayla Greene MIXER MACHINE FEEDER-HOTEL OR MOTEL MANAGER Work Phone: Start: 03-20-2025 Glucose measurement, blood Doretha Brandon MD Work Phone: Start: 03-20-2025 Glucose measurement, blood Doretha Brandon MD Work Phone: Start: 03-20-2025 Glucose measurement, blood Doretha Brandon MD Work Phone: Start: 03-20-2025 Glucose measurement, blood Doretha Brandon MD Work Phone: Start: 03-20-2025 Creatinine blood Kayla Greene MIXER MACHINE FEEDER-HOTEL OR MOTEL MANAGER Work Phone: Start: 03-19-2025 Glucose measurement, blood Doretha Brandon MD Work Phone: Start: 03-19-2025 Glucose measurement, blood Doretha Brandon MD Work Phone: Start: 03-19-2025 Glucose measurement, blood Doretha Brandon MD Work Phone: Start: 03-19-2025 Glucose measurement, blood Doretha Brandon MD Work Phone: Start: 03-19-2025 Electrolyte panel Taydb Greene MIXER MACHINE FEEDER-HOTEL OR MOTEL MANAGER Work Phone: Start: 03-18-2025 EXTRA MICRO Doretha nation MD Work Phone: Start: 03-18-2025 URINALYSIS REFLEX TO CULTURE Doretha Alvarez MD Work Phone: Start: 03-18-2025 Urnls dip stick/tabl et reagent auto microscopy Doretha Alvarez MD Work Phone: Start: 03-18-2025 Glucose measurement, blood Doretha Brandon MD Work Phone: Start: 03-18-2025 Glucose measurement, blood Doretha Brandon MD Work Phone: Start: 03-18-2025 Radiologic exam ches t single view Edwin Rice MD Work Phone: Start: 03-18-2025 Radex hip unilateral with pelvis 2-3 views Jose E Delgado MD Work Phone: Start: 03-18-2025 Glucose measurement, blood Doretha Brandon MD Work Phone: Start: 03-18-2025 Glucose measurement, blood Doretha Brandon MD Work Phone: Start: 03-18-2025 Radiologic exam ches t single view Jose E Delgado MD Work Phone: Start: 03-18-2025 Glucose quantitative blood xcpt reagent strip Kayla Greene MIXER MACHINE FEEDER-HOTEL OR MOTEL MANAGER Work Phone: Start: 03-17-2025 Glucose measurement, blood Doretha Brandon MD Work Phone: Start: 03-17-2025 Glucose measurement, blood Doretha Brandon MD Work Phone: Start: 03-17-2025 Glucose measurement, blood Doretha Brandon MD Work Phone: Start: 03-17-2025 Radiologic exam ches t single view Elijah Russell MD Work Phone: Start: 03-17-2025 Glucose measurement, blood Doretha Brandon MD Work Phone: Start: 03-17-2025 Creatinine blood Kayla Greene MIXER MACHINE FEEDER-HOTEL OR MOTEL MANAGER Work Phone: Start: 03-16-2025 Glucose measurement, blood Doretha Brandon MD Work Phone: Start: 03-16-2025 Glucose measurement, blood Doretha Brandon MD Work Phone: Start: 03-16-2025 Perq drainage pleura insert cath w/imaging Franci Benoit MD Work Phone: Start: 03-16-2025 GENERAL PROCEDURE Silvestre Burton MD Work Phone: Start: 03-16-2025 Cell count misc body fluids w/differential count Swapna Barcenas MD Work Phone: Start: 03-16-2025 Cytp concentration s katelyn & interpretation Swapna Barcenas MD Work Phone: Start: 03-16-2025 End: 03-16-2025 Lactate dehydrogenase ldh Swapna Barcenas MD Work Phone: Start: 03-16-2025 Glucose measurement, blood Doretha Brandon MD Work Phone: Start: 03-16-2025 Prothrombin time Swapna Barcenas MD Work Phone: Start: 03-16-2025 Glucose measurement, blood Doretha Brandon MD Work Phone: Start: 03-16-2025 Prothrombin time Kayla Keller Jc MIXER MACHINE FEEDER-HOTEL OR MOTEL MANAGER Work Phone: Start: 03-16-2025 Radiologic exam abdo men 1 view Swapna Barcenas MD Work Phone: Start: 03-16-2025 Radiologic exam ches t single view Swapna Barcenas MD Work Phone: Start: 03-16-2025 Glucose measurement, blood Doretha Brandon MD Work Phone: Start: 03-16-2025 Assay of magnesium Amel ia Grecia Roshan MIXER MACHINE FEEDER-HOTEL OR MOTEL MANAGER Work Phone: Start: 03-16-2025 Hepatic function panel Swapna Barcenas MD Work Phone: Start: 03-15-2025 Glucose measurement, blood Doretha Brandon MD Work Phone: Start: 03-15-2025 Glucose measurement, blood Doretha Brandon MD Work Phone: Start: 03-15-2025 Lactate dehydrogenase ldh Swapna Barcenas MD Work Phone: Start: 03-15-2025 CARDIAC RHYTHM (SCANNED) Other Other OT Start: 03-15-2025 Glucose measurement, blood Doretha Brandon MD Work Phone: Start: 03-15-2025 Radiologic exam abdo men 1 view Swapna Barcenas MD Work Phone: Start: 03-15-2025 Glucose measurement, blood Doretha Brandon MD Work Phone: Start: 03-15-2025 Glucose measurement, blood Doretha Barndon MD Work Phone: Start: 03-15-2025 Glucose measurement, blood oDretha Brandon MD Work Phone: Start: 03-15-2025 Radiologic exam ches t single view Lilly H Yinger MIXER MACHINE FEEDER-HOTEL OR MOTEL MANAGER Work Phone: Start: 03-15-2025 Basic metabolic pane l calcium total Elijah Russell MD Work Phone: Start: 03-14-2025 End: 03-14-2025 Mri brain brain stem w/o contrast material Niko Caal MD Work Phone: Start: 03-14-2025 Iadna s aureus ampli fied probe tq Lilly H Yinger MIXER MACHINE FEEDER-HOTEL OR MOTEL MANAGER Work Phone: Start: 03-14-2025 Glucose measurement, blood Doretha Brandon MD Work Phone: Start: 03-14-2025 Glucose measurement, blood Doretha Brandon MD Work Phone: Start: 03-14-2025 Radiologic exam abdo men 1 view Lilly H Yinger MIXER MACHINE FEEDER-HOTEL OR MOTEL MANAGER Work Phone: Start: 03-14-2025 Radiologic exam ches t single view Lilly H Yinger MIXER MACHINE FEEDER-HOTEL OR MOTEL MANAGER Work Phone: Start: 03-14-2025 Glucose measurement, blood Doretha Brandon MD Work Phone: Start: 03-14-2025 Oscillating positive expiratory pressure (flutter) physiotherapy Niko Caal MD Work Phone: Start: 03-14-2025 Glucose measurement, blood Doretha Brandon MD Work Phone: Start: 03-14-2025 Glucose measurement, blood Doretha Brandon MD Work Phone: Start: 03-13-2025 Basic metabolic pane l calcium total Elijah Russell MD Work Phone: Start: 03-13-2025 C-reactive protein Keisha Tian MD Work Phone: Start: 03-13-2025 Gases blood ph direc t meño xcpt pulse oximitry Doretha Alvarez MD Work Phone: Start: 03-13-2025 Glucose measurement, blood Doretha Brandon MD Work Phone: Start: 03-13-2025 Ct thorax w/contrast material Doretha Alvarez MD Work Phone: Start: 03-13-2025 Mri spinal canal tho racic w/o contrast matrl Zack Tian MD Work Phone: Start: 03-13-2025 Glucose measurement, blood Doretha Brandon MD Work Phone: Start: 03-13-2025 Glucose measurement, blood Doretha Brandon MD Work Phone: Start: 03-13-2025 Respiratory virus DN A+RNA [Identifier] in Unspecified specimen by JIHAN with probe detection Zack Tian MD Work Phone: Start: 03-13-2025 Glucose measurement, blood Doretha Brandon MD Work Phone: Start: 03-13-2025 Radiologic exam ches t single view Elijah Russell MD Work Phone: Start: 03-13-2025 MRI PROCEDURE NOT PERFORMED Elijah Russell MD Work Phone: Start: 03-13-2025 Glucose measurement, blood Doretha Brandon MD Work Phone: Start: 03-13-2025 Basic metabolic pane l calcium total Elijah Russell MD Work Phone: Start: 03-12-2025 Glucose measurement, blood Doretha Brandon MD Work Phone: Start: 03-12-2025 Glucose measurement, blood Doretha Brandon MD Work Phone: Start: 03-12-2025 Glucose measurement, blood Doretha Brandon MD Work Phone: Start: 03-12-2025 Glucose measurement, blood Doretha Brandon MD Work Phone: Start: 03-12-2025 Basic metabolic pane l calcium total Elijah Russell MD Work Phone: Start: 03-11-2025 Glucose measurement, blood Doretha Brandon MD Work Phone: Start: 03-11-2025 End: 03-11-2025 Glucose measurement, blood Doretha Brandon MD Work Phone: Start: 03-11-2025 Radiologic exam ches t single view Elijah Russell MD Work Phone: Start: 03-11-2025 Glucose measurement, blood Doretha Brandon MD Work Phone: Start: 03-11-2025 Glucose measurement, blood Doretha Brandon MD Work Phone: Start: 03-11-2025 End: 03-11-2025 Arthrodesis anterior interbody lumbar Doretha Brandon MD Work Phone: Start: 03-11-2025 End: 03-11-2025 Autograft spine surgery local from same incision Doretha Brandon MD Work Phone: Start: 03-11-2025 End: 03-11-2025 Vertebral corpectomy dcmprn cord thoracic 1 seg Doretha Brandon MD Work Phone: Start: 03-11-2025 Antibody screen Doretha bourgeois MD Work Phone: Start: 03-11-2025 Antibody screen DORETHA Bourgeois Comment on above: Performed By: #### X M #### [facility] ([facility]) [address] [place] [id number] Start: 03-11-2025 Blood typing serologic abo Ari Huber MD Work Phone: Start: 03-11-2025 PREPARE TO TRANSFUSE OR RED BLOOD CELLS Lucy No MD Work Phone: Start: 03-11-2025 PREPARE TO TRANSFUSE PLASMA Lucy No MD Work Phone: Start: 03-11-2025 Prothrombin time Doretha Brandon MD Work Phone: Start: 03-11-2025 Glucose measurement, blood Doretha Brandon MD Work Phone: Start: 03-06-2025 Glucose measurement, blood Doretha Brandon MD Work Phone: Start: 03-06-2025 End: 03-06-2025 Glucose measurement, blood Doretha Brandon MD Work Phone: Start: 03-05-2025 Assay of magnesium Karen Cummings MD Work Phone: Start: 03-05-2025 CBC AND ELECTRONIC DIFF Yaya Cummings MD Work Phone: Start: 03-05-2025 Complete blood count with white cell differential, automated Yaya Cummings MD Work Phone: Start: 03-05-2025 EXTRA MICRO Yaya J Me cheryl Cummings MD Work Phone: Start: 03-05-2025 Iadna s aureus ampli fied probe tq Yaya Cummings MD Work Phone: Start: 03-05-2025 URINALYSIS REFLEX TO CULTURE Yaya Cummings MD Work Phone: Start: 02-10-2025 MRI of joint of lowe r extremity Dr. Armando Kohli MD Work Phone: Start: 02-04-2025 Plain X-ray of shoulder Dr. Armando Kohli MD Work Phone: Start: 01-12-2025 CT of chest without contrast Dr. Armando Kohli MD Work Phone: Start: 01-11-2025 End: 01-11-2025 Radex entir thrc lmbr crv sac spi w/skull 2/3 vw Doretha Brandon MD Work Phone: Start: 01-11-2025 Follicle stimulating hormone measurement Dr. Armando Kohli MD Work Phone: Comment on above: FEMALE:Follicular: 1 .4 - 18.1 mIU/mLMidcycle: 3.4 - 33.4 mIU/mLLuteal: 1.5 - 9.1 mIU/mLPost Menopause: 23.0 - 116.3 mIU/mLMALE: 1.4 - 18.1 mIU/mL Start: 11-29-2024 Plain chest X-ray Dr. Nirmala Kohli MD Work Phone: Start: 11-29-[address] Armando Kohli MD Work Phone: Start: 08-20-2024 Blood count leukocyt e wbc automated Dr. Armando Kohli MD Work Phone: Start: 08-20-[address] Armando Kohli MD Work Phone: Start: 08-20-2024 Polymorphonuclear le ukocyte count Dr. Armando Kohli MD Work Phone: Start: 08-20-2024 End: 08-20-2024 Acid fast bacilli culture Dr. Armando macedo MD Work Phone: Start: 08-19-2024 Plain chest X-ray Dr. Nirmala Kohli MD Work Phone: Start: 08-19-2024 Fluoroscopic guidance Reyes Kohli MD Work Phone: Start: 08-13-[address] Krupa Kohli MD Work Phone: Comment on above: The atypical pANCA p attern has been observed in asignificant percentage of patients with ulcerative colitis,primary sclerosing cholangitis and autoimmune hepatitis. Start: 08-13-2024 Antibody to lupus La protein measurement Dr. Armando Kohli MD Work Phone: Comment on above: Previous reported re sult: TNP AIEdited by: INFCE on 08/14/24:1508 AMENDED REPORT 08/14/24 1508 Anti-SS-B previously reported as: Test not performed Start: 08-13-2024 Antibody to SS-A measurement Dr. Armando Kohli MD Work Phone: Comment on above: Previous reported re sult: TNP AIEdited by: INFCE on 08/14/24:1508 AMENDED REPORT 08/14/24 1508 Anti-SS-A previously reported as: Test not performed Start: 08-05-2024 CT of chest without contrast Dr. Armando Kohli MD Work Phone: Start: 07-17-2024 Measurement of renal function Dr. Armando Kohli MD Work Phone: Comment on above: GFR Calc Start: 05-29-2024 Cardiovascular stres s test using pharmacologic stress agent Dr. Armando Kohli MD Work Phone: Start: 05-22-2024 CT angiography of he ad and neck Dr. Armando Kohli MD Work Phone: Start: 05-22-2024 Plain chest X-ray Dr. Nirmala Kohli MD Work Phone: Start: 05-22-2024 SARS-CoV-2, Influenz a & RSV (PCR) Dr. Armando Kohli MD Work Phone: Start: 12-03-2022 X-ray of lumbosacral spine Dr. Armando Kohli Work Phone: Start: 08-06-[address] Armando Kohli Work Phone: Start: 07-25-2022 X-ray of lumbar spin e, two or three views Dr. Armando Kohli Work Phone: Start: 07-04-2022 MRI of lumbar spine Dr. Armando Kohli Work Phone: Start: 05-18-2022 CT of chest without contrast Dr. Armando Kohli Work Phone: Start: 02-15-2022 Cardiovascular stres s test using pharmacologic stress agent Dr. Armando Kohli Work Phone: Start: 01-29-2022 Plain chest X-ray Dr. Nirmala Kohli Work Phone: Start: 01-28-2017 End: 02-07-2017 Echocardiography Armando Acevedo MD Start: 01-28-2017 End: 01-28-2017 Follow Up Appt 6 months Armando Acevedo MD Start: 01-28-2017 End: 01-28-2017 MMM Armando Acevedo MD Start: 01-28-2017 End: 02-05-2017 Nuclear stress test -exercise Armando Acevedo MD Start: 10-23-2016 End: 10-23-2016 Follow Up Appt 1 year Art Plummer MD Start: 10-23-2016 End: 10-23-2016 MMRosa Plummer MD Start: 10-12-2016 End: 10-12-2016 *BMP Armando Acevedo MD Start: 10-12-2016 End: 10-12-2016 CBC W Auto Differential panel - Blood Armando Acevedo MD Start: 10-12-2016 End: 10-12-2016 Follow Up Appt 6 months Rylee rosario PA-C Work Phone: Start: 10-12-2016 End: 10-12-2016 Nurse, Teaching, Wound Check (no charge) Armando Acevedo MD Start: 10-12-2016 End: 10-12-2016 PFM Rylee Singh PA-C Work Phone: Start: 10-12-2016 End: 10-12-2016 *BMP Armando Acevedo MD Start: 10-12-2016 End: 02-05-2017 *CBC with Differential Rylee landis PA-C Work Phone: Start: 10-12-2016 End: 10-12-2016 CBC W Auto Differential panel - Blood Armando Acevedo MD Start: 10-12-2016 End: 10-12-2016 Follow Up Appt 6 months Rylee rosario PA-C Work Phone: Start: 10-12-2016 End: 02-05-2017 Implantable Loop Recorder Armando kaufman MD Start: 10-12-2016 End: 10-12-2016 Nurse, Teaching, Wound Check (no charge) Armando Acevedo MD Start: 10-12-2016 End: 10-12-2016 PFM Rylee Singh PA-C Work Phone: Start: 09-24-2016 End: 10-05-2016 Follow Up Appt 1 month Armando Acevedo MD Start: 09-24-2016 End: 09-24-2016 Interrogation evaluation in person ilr system Armando Acevedo MD Start: 09-24-2016 End: 10-05-2016 Pacer Clinic Armando Acevedo MD Start: 09-24-2016 End: 10-05-2016 Follow Up Appt 1 month Armando Acevedo MD Start: 09-24-2016 End: 09-24-2016 Ilr device interrogate Armando Acevedo MD Start: 09-24-2016 End: 10-05-2016 Pacer Clinic Armando Acevedo MD Start: 04-17-2016 End: 10-05-2016 Follow Up Appt 6 months Rylee rosario PA-C Work Phone: Start: 04-17-2016 End: 04-17-2016 Interrogation evaluation in person ilr system Rylee Singh PA-C Work Phone: Start: 04-17-2016 End: 10-05-2016 Pacer Clinic Rylee Singh PA-C Work Phone: Start: 04-17-2016 End: 10-05-2016 Follow Up Appt 6 months Rylee rosario PA-C Work Phone: Start: 04-17-2016 End: 04-17-2016 Ilr device interrogate Rylee landis PA-C Work Phone: Start: 04-17-2016 End: 10-05-2016 Pacer Clinic Rylee Singh PA-C Work Phone: Start: 04-10-2016 End: 04-10-2016 TRANSCRIPTION TYPIST Rylee Singh PA-C Work Phone: Start: 04-10-2016 End: 04-10-2016 Device Interrogation Rylee kilgore PA-C Work Phone: Start: 04-10-2016 End: 04-10-2016 Follow Up Appt 6 months Rylee rosario PA-C Work Phone: Start: 04-10-2016 End: 04-10-2016 Dietary management education, guidance, and counseling Rylee Kulkarni RN Start: 04-10-2016 End: 04-10-2016 TRANSCRIPTION TYPIST Rylee Singh PA-C Work Phone: Start: 04-10-2016 End: 04-10-2016 Device Interrogation Rylee kilgore PA-C Work Phone: Start: 04-10-2016 End: 04-10-2016 Follow Up Appt 6 months Rylee rosario PA-C Work Phone: Start: 10-03-2015 End: 10-03-2015 Ecg routine ecg w/least 12 lds w/i&r Armando Acevedo MD Start: 10-03-2015 End: 03-30-2016 Echocardiography Armando Acevedo MD Start: 10-03-2015 End: 03-30-2016 Follow Up Appt 3 months Armando Acevedo MD Start: 10-03-2015 End: 10-03-2015 Follow Up Appt 6 months Armando Acevedo MD Start: 10-03-2015 End: 10-03-2015 Interrogation evaluation in person ilr system Armando Acevedo MD Start: 10-03-2015 End: 10-03-2015 MMM Armando Acevedo MD Start: 10-03-2015 End: 03-30-2016 Pacer Clinic Armando Acevedo MD Start: 10-03-2015 End: 03-30-2016 Echocardiography Armando Acevedo MD Start: 10-03-2015 End: 10-03-2015 Electrocardiogram, complete Armando sheldon MD Start: 10-03-2015 End: 03-30-2016 Follow Up Appt 3 months Armando Acevedo MD Start: 10-03-2015 End: 10-03-2015 Follow Up Appt 6 months Armando Acevedo MD Start: 10-03-2015 End: 10-03-2015 Ilr device interrogate Armando Acevedo MD Start: 10-03-2015 End: 10-03-2015 MMM Armando Acevedo MD Start: 10-03-2015 End: 03-30-2016 Pacer Clinic Armando Acevedo MD Start: 06-07-2015 End: 03-30-2016 Follow Up Appt 3 months Rylee rosario PA-C Work Phone: Start: 06-07-2015 End: 06-07-2015 Interrogation evaluation in person ilr system Rylee Singh PA-C Work Phone: Start: 06-07-2015 End: 03-30-2016 Pacer Clinic Rylee Singh PA-C Work Phone: Start: 06-07-2015 End: 03-30-2016 Follow Up Appt 3 months Rylee rosario PA-C Work Phone: Start: 06-07-2015 End: 06-07-2015 Ilr device interrogate Rylee landis PA-C Work Phone: Start: 06-07-2015 End: 03-30-2016 Pacer Clinic Rylee Singh PA-C Work Phone: Start: 03-25-2015 End: 03-25-2015 Ecg routine ecg w/least 12 lds w/i&r Rylee Singh PA-C Work Phone: Start: 03-25-2015 End: 03-25-2015 Electrocardiogram, complete Rylee Chacko PA-C Work Phone: Start: 03-11-2015 End: 03-12-2015 Documentation of current medications Rylee Singh PA-C Work Phone: Start: 03-11-2015 End: 03-11-2015 Ecg routine ecg w/least 12 lds w/i&r Rylee Singh PA-C Work Phone: Start: 03-11-2015 End: 03-30-2016 Follow Up Appt 3 months Armando Acevedo MD Start: 03-11-2015 End: 03-11-2015 Follow Up Appt 6 months Rylee rosario PA-C Work Phone: Start: 03-11-2015 End: 03-11-2015 Interrogation evaluation in person ilr system Armando Acevedo MD Start: 03-11-2015 End: 03-30-2016 Pacer Clinic Armando Acevedo MD Start: 03-11-2015 End: 03-11-2015 PFM Rylee Singh PA-C Work Phone: Start: 03-11-2015 End: 03-12-2015 Documentation of current medications Rylee Singh PA-C Work Phone: Start: 03-11-2015 End: 03-11-2015 Electrocardiogram, complete Rylee Chacko PA-C Work Phone: Start: 03-11-2015 End: 03-30-2016 Follow Up Appt 3 months Armando Acevedo MD Start: 03-11-2015 End: 03-11-2015 Follow Up Appt 6 months Rylee rosario PA-C Work Phone: Start: 03-11-2015 End: 03-11-2015 Ilr device interrogate Armando Acevedo MD Start: 03-11-2015 End: 03-30-2016 Pacer Clinic Armando Acevedo MD Start: 03-11-2015 End: 03-11-2015 PFM Rylee Singh PA-C Work Phone: Start: 01-06-2015 End: 03-02-2015 Follow Up Appt 3 months Rylee rosario PA-C Work Phone: Start: 01-06-2015 End: 2015 Interrogation evaluation in person ilr system Rylee Singh PA-C Work Phone: Start: 01-06-2015 End: 03-02-2015 Pacer Clinic Rylee Singh PA-C Work Phone: Start: 01-06-2015 End: 03-02-2015 Follow Up Appt 3 months Rylee rosario PA-C Work Phone: Start: 01-06-2015 End: 2015 Ilr device interrogate Rylee landis PA-C Work Phone: Start: 01-06-2015 End: 03-02-2015 Pacer Clinic Rylee Singh PA-C Work Phone: Start: 09-08-2014 End: 09-09-2014 Documentation of current medications Armando Acevedo MD Start: 09-08-2014 End: 03-02-2015 Follow Up Appt 3 months Armando Acevedo MD Start: 09-08-2014 End: 03-02-2015 Follow Up Appt 6 months Armando Acevedo MD Start: 09-08-2014 End: 09-09-2014 Interrogation evaluation in person ilr system Armando Acevedo MD Start: 09-08-2014 End: 03-02-2015 MMM Armando Acevedo MD Start: 09-08-2014 End: 03-02-2015 Pacer Clinic Armando Acevedo MD Start: 09-08-2014 End: 09-09-2014 Documentation of current medications Armando Acevedo MD Start: 09-08-2014 End: 03-02-2015 Follow Up Appt 3 months Armando Acevedo MD Start: 09-08-2014 End: 03-02-2015 Follow Up Appt 6 months Armando Acevedo MD Start: 09-08-2014 End: 09-09-2014 Ilr device interrogate Armando Acevedo MD Start: 09-08-2014 End: 03-02-2015 MMM Armando Acevedo MD Start: 09-08-2014 End: 03-02-2015 Pacer Clinic Armando Acevedo MD Start: 08-04-2014 End: 03-02-2015 Device Interrogation Armando Acevedo MD Start: 08-04-2014 End: 03-02-2015 Device Interrogation Armando Acevedo MD Start: 05-05-2014 End: 03-02-2015 Follow Up Appt 3 months Armando Acevedo MD Start: 05-05-2014 End: 05-05-2014 Interrogation evaluation in person ilr system Armando Acevedo MD Start: 05-05-2014 End: 03-02-2015 Pacer Clinic Armando Acevedo MD Start: 05-05-2014 End: 03-02-2015 Follow Up Appt 3 months Armando Acevedo MD Start: 05-05-2014 End: 05-05-2014 Ilr device interrogate Armando Acevedo MD Start: 05-05-2014 End: 03-02-2015 Pacer Clinic Armando Acevedo MD Start: 02-22-2014 End: 02-22-2014 Follow Up Appt 6 months Rylee rosario PA-C Work Phone: Start: 02-22-2014 End: 02-22-2014 PFM Rylee Singh PA-C Work Phone: Start: 02-22-2014 End: 02-22-2014 Follow Up Appt 6 months Rylee rosario PA-C Work Phone: Start: 02-22-2014 End: 02-22-2014 PFM Rylee Singh PA-C Work Phone: Start: 01-14-2014 End: 02-02-2014 Follow Up Appt 3 months Rylee rosario PA-C Work Phone: Start: 01-14-2014 End: 01-14-2014 Interrogation evaluation in person ilr system Rylee Singh PA-C Work Phone: Start: 01-14-2014 End: 02-02-2014 Pacer Clinic Rylee Singh PA-C Work Phone: Start: 01-14-2014 End: 02-02-2014 Follow Up Appt 3 months Rylee rosario PA-C Work Phone: Start: 01-14-2014 End: 01-14-2014 Ilr device interrogate Rylee landis PA-C Work Phone: Start: 01-14-2014 End: 02-02-2014 Pacer Clinic Rylee Singh PA-C Work Phone: Start: 10-14-2013 End: 02-02-2014 Follow Up Appt 3 months Rylee rosario PA-C Work Phone: Start: 10-14-2013 End: 10-14-2013 Interrogation evaluation in person ilr system Rylee Singh PA-C Work Phone: Start: 10-14-2013 End: 02-02-2014 Pacer Clinic Rylee Singh PA-C Work Phone: Start: 10-14-2013 End: 02-02-2014 Follow Up Appt 3 months Rylee rosario PA-C Work Phone: Start: 10-14-2013 End: 10-14-2013 Ilr device interrogate Rylee landis PA-C Work Phone: Start: 10-14-2013 End: 02-02-2014 Pacer Clinic Rylee Singh PA-C Work Phone: Start: 08-21-2013 End: 08-21-2013 Arterial exam Aramndo Acevedo MD Start: 08-21-2013 End: 08-21-2013 Follow Up Appt 6 months Armando Acevedo MD Start: 08-21-2013 End: 08-21-2013 MMM Armando Acevedo MD Start: 08-21-2013 End: 08-21-2013 Arterial exam Armando Acevedo MD Start: 08-21-2013 End: 08-21-2013 Follow Up Appt 6 months Armando Acevedo MD Start: 08-21-2013 End: 08-21-2013 MMM Armando Acevedo MD Start: 07-13-2013 End: 08-21-2013 Follow Up Appt 3 months Armando Acevedo MD Start: 07-13-2013 End: 07-13-2013 Interrogation evaluation in person ilr system Armando Acevedo MD Start: 07-13-2013 End: 08-21-2013 Pacer Clinic Armando Acevedo MD Start: 07-13-2013 End: 08-21-2013 Follow Up Appt 3 months Armando Acevedo MD Start: 07-13-2013 End: 07-13-2013 Ilr device interrogate Armando Acevedo MD Start: 07-13-2013 End: 08-21-2013 Pacer Clinic Armando Acevedo MD Start: 05-26-2013 End: 08-18-2013 Cardiac Rehab Rylee Singh PA-C Work Phone: Start: 05-26-2013 End: 02-02-2014 Cardiovascular stress test using treadmill Rylee Singh PA-C Work Phone: Start: 05-26-2013 End: 05-26-2013 Follow Up Appt 3 months Rylee rosario PA-C Work Phone: Start: 05-26-2013 End: 05-26-2013 PFM Rylee Singh PA-C Work Phone: Start: 05-26-2013 End: 08-18-2013 Cardiac Rehab Rylee Singh PA-C Work Phone: Start: 05-26-2013 End: 02-02-2014 Cardiovascular stress test using treadmill Rylee Singh PA-C Work Phone: Start: 05-26-2013 End: 05-26-2013 Follow Up Appt 3 months Rylee rosario PA-C Work Phone: Start: 05-26-2013 End: 05-26-2013 PFM Rylee Singh PA-C Work Phone: Start: 05-21-2013 Percutaneous translu tuan coronary angioplasty CORONARY ARTERY DISEASE, S/P PTCA Rylee Kulkarni RN Start: 05-21-2013 Placement of stent i n coronary artery Coronary stent Rylee Kulkarni RN Start: 05-04-2013 End: 05-04-2013 Nurse, Teaching, Wound Check (no charge) Armando Acevedo MD Start: 05-04-2013 End: 05-04-2013 Nurse, Teaching, Wound Check (no charge) Armando Acevedo MD Start: 04-30-2013 Lipid 1996 panel - S sintia or Plasma Christofer Moomaw MIXER MACHINE FEEDER.HOTEL OR MOTEL MANAGER Work Phone: Start: 04-27-2013 End: 04-27-2013 Nurse, Teaching, Wound Check (no charge) Kaleb Story MD Work Phone: Start: 04-27-2013 End: 04-27-2013 Nurse, Teaching, Wound Check (no charge) Kaelb Story MD Work Phone: Start: 04-16-2013 End: 04-16-2013 aPTT in Platelet poor plasma by Coagulation assay Armando Acevedo MD Start: 04-16-2013 End: 05-19-2013 Cardiovascular function eval w/tilt table w/mntr Armando Acevedo MD Start: 04-16-2013 End: 04-16-2013 Ecg routine ecg w/least 12 lds w/i&r Armando Acevedo MD Start: 04-16-2013 End: 04-16-2013 Follow Up Appt 6 weeks Armando Acevedo MD Start: 04-16-2013 End: 04-16-2013 Follow Up Appt Other Armando Acevedo MD Start: 04-16-2013 End: 04-16-2013 INR in Platelet poor plasma by Coagulation assay Armando Acevedo MD Start: 04-16-2013 End: 05-19-2013 Left Heart Cath Armando Acevedo MD Start: 04-16-2013 End: 04-16-2013 MMM Armando Acevedo MD Start: 04-16-2013 End: 04-16-2013 aPTT Armando Acevedo MD Start: 04-16-2013 End: 04-16-2013 Coagulation factor induced.INR assay in platelet poor plasma Armando Acevedo MD Start: 04-16-2013 End: 04-16-2013 Electrocardiogram, complete Armando sheldon MD Start: 04-16-2013 End: 04-16-2013 Follow Up Appt 6 weeks Armando Acevedo MD Start: 04-16-2013 End: 04-16-2013 Follow Up Appt Other Armando Acevedo MD Start: 04-16-2013 End: 05-19-2013 Left Heart Cath Armando Acevedo MD Start: 04-16-2013 End: 04-16-2013 TRA Acevedo MD Start: 04-16-2013 End: 05-19-2013 Tilt table evaluation Armando Jacobs Start: 03-24-2003 Lipid 1996 panel - S sintia or Plasma Allyson Medina Mycology culture Dr. Armando ramirez Work Phone: Plan of Treatment Date Care Activity Detail Author Start: 01-13-2035 Tetanus vaccination [facility] Start: 03-24-2026 eGFR Diabetes eGFR Diabetes [facility] Start: 03-23-2026 Depression screening using PHQ-9 (Patient Health Questionnaire 9) score Depression Screening/Follow-Up (PHQ-2/9) [facility] Start: 09-22-2025 Hemoglobin A1c measurement A1C [facility] Start: 06-07-2025 End: 06-07-2025 Patient encounter procedure 06/07/2025 2:30 PM EST Office Visit [facility] [address], [address] [place] [address] Maxine Mock, MIXER MACHINE FEEDER-HOTEL OR MOTEL MANAGER [address] [address] [facility] Start: 04-21-2025 End: 04-21-2025 ambulatory [facility] Start: 04-21-2025 End: 04-21-2025 Patient encounter procedure 04/21/2025 11:00 AM EST Office Visit [facility] [address], [address] [place] [address] Maxine Mock, MIXER MACHINE FEEDER-HOTEL OR MOTEL MANAGER [address] [address] [facility] Start: 04-19-2025 End: 04-19-2025 Patient encounter procedure 04/19/2025 2:15 PM EST Office Visit [facility] [address] [facility] [place] [id number] Laura Mccarty DO [address] [place] [address] Discharge Disposition: Home [facility] Wound Care Start: 03-29-2025 End: 03-29-2025 ambulatory 03/29/2025 1:45 PM EDT Treatment [facility] Nursing Rehab [address] [place] [address] Leora Harris PTA [facility] Nursing Rehab Start: 03-29-2025 End: 03-29-2025 ambulatory 03/29/2025 10:30 AM EDT Treatment [facility] Nursing [facility] [address] [place] [address] Jamia Hernandez COTA [facility] Nursing Re[facility] Start: 03-27-2025 End: 03-27-2025 ambulatory [facility] Nursing Re[facility] Start: 03-18-2025 End: 03-18-2026 SPECT Brain W I-123 IV [facility] Start: 03-11-2025 End: 03-11-2025 Arthrodesis anterior interbody lumbar FUSION EXTREME LATERAL INTERBODY LUMBAR 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 03/11/2025 12:30 PM EDT [facility] Start: 03-11-2025 End: 03-11-2025 Autograft spine surgery local from same incision GRAFT SPINE SURGERY ONLY AUTOGRAFT POSTERIOR ADD-ON PX 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 03/11/2025 12:30 PM EDT [facility] Start: 03-11-2025 End: 03-11-2025 Evaluation and management of inpatient SHARLA Comment on above: Thoracic disc herniation FUSION EXTREME LATER AL INTERBODY LUMBAR Start: 03-11-2025 End: 03-11-2025 Vertebral corpectomy dcmprn cord thoracic 1 seg CORPECTOMY VERTEBRAL W/ DECOMPRESSION TRANSTHORACIC APPROACH 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 03/11/2025 12:30 PM EDT [facility] Start: 02-15-2025 COVID-19 Vaccine ( season) COVID-19 Vaccine ( season) [facility] Start: 02-15-2025 COVID-19 VACCINE ( season) COVID-19 VACCINE ( season) [facility] Start: 02-15-2025 Influenza vaccination INFLUENZA VACCINE (#1) [facility] Start: 02-15-2025 [facility] Start: 2025 Respiratory Syncytial Virus Immunization: Risk, 60-74 Risk, or 75+ (1 - 1-dose 75+ series) Respiratory Syncytial Virus Immunization: Risk, 60-74 Risk, or 75+ (1 - 1-dose 75+ series) [facility] Start: 2025 RSV VACCINE (1 - 1-dose 75+ series) RSV VACCINE (1 - 1-dose 75+ series) [facility] Start: 2025 [facility] Start: 11-29-2024 [facility] Start: 11-29-2024 [facility] Start: 08-25-2024 End: 08-25-2024 Patient encounter procedure 08/25/2024 2:45 PM EDT Office Visit Neurology [facility] Outpatient [facility] [address] [phone] Nirav Melissa MD [address] [phone] Neurology [facility] Start: 08-25-2024 Subsequent hospital visit by physician 08/25/2024 10:10 AM EDT Hospital Encounter Imaging Outpatient Care [facility] [address] [place] [phone] Nirav Melissa MD [address] [phone] Imaging Outpatient Care [facility] Start: 08-25-2024 End: 08-25-2024 Patient encounter procedure 08/25/2024 9:50 AM EDT Appointment [facility] [address] [place] [phone] Nirav Melissa MD [address] [phone] Imaging Outpatient Care [facility] Start: 08-20-2024 Acid Fast Bacilli Culture Acid Fast Bacilli Culture [facility] Start: 08-20-2024 Acid Fast Bacilli Smear Acid Fast Bacilli Smear [facility] Start: 08-20-2024 Acid fast bacilli culture [facility] Start: 08-19-2024 [facility] Start: 08-19-2024 Brnchsc w/brncl alveolar lavage DX BRONCHOSCOPE/LAVAGE [facility] Start: 08-19-2024 Bronchoscopy w/transbronchial lung bx 1 lobe BRONCHOSCOPY/LUNG BX EACH [facility] Start: 08-19-2024 Patient discharge [facility] Start: 07-30-2024 Patient discharge [facility] Start: 07-29-2024 Following clinical pathway protocol [facility] Start: 07-29-2024 Application of intermittent pneumatic compression device [facility] Start: 07-29-2024 Measuring intake and output [facility] Start: 07-29-2024 Ambulation therapy management [facility] Start: 07-29-2024 Assessment of risk of venous thromboembolism [facility] Start: 07-29-2024 Deep breathing and coughing exercises [facility] Start: 07-29-2024 Documentation procedure [facility] Start: 07-29-2024 Following clinical pathway protocol [facility] Start: 07-29-2024 Incentive spirometry [facility] Start: 07-29-2024 Irrigation of urinary bladder [facility] Start: 07-29-2024 Provision of activity privileges [facility] Start: 07-29-2024 Taking patient vital signs [facility] Start: 07-29-2024 Vital signs measurements [facility] Start: 07-29-2024 End: 07-29-2024 [facility] Start: 07-29-2024 Admission procedure [facility] Start: 07-29-2024 Anesthesia transurethral resection of prostate ANESTH REMOVAL OF PROSTATE [facility] Start: 07-29-2024 Trurl electrosurg rescj prostate bleed complete PROSTATECTOMY (TURP) [facility] Start: 06-08-2024 End: 06-08-2024 Patient encounter procedure 06/08/2024 12:45 PM EST Appointment Neurodiagnostic Testing Outpatient Care [address] [phone] Nirav Melissa MD [address] [phone] Neurodiagnostic Testing Outpatient [facility] Start: 05-22-2024 End: 05-23-2024 [facility] Start: 05-12-2024 End: 05-12-2025 Electromyography EMG & NERVE CONDUCTION Neurology Routine Lumbar radiculopathy Expected: 05/12/2024, Expires: 05/12/2025 [facility] Comment on above: Expected: 05/12/2024, Expires: Start: 05-12-2024 End: 05-12-2025 MONOCLONAL PROT IMMUNO, SERUM [facility] Comment on above: Expected: 05/12/2024, Expires: 5 Start: 05-12-2024 End: 05-12-2025 MR Lumbar spine WO contrast MRI SPINE LUMBAR WITHOUT CONTRAST Imaging Routine Lumbar radiculopathy Expected: 05/12/2024, Expires: 05/12/2025 [facility] Comment on above: Expected: 05/12/2024, Expires: 5 Start: 05-12-2024 End: 05-12-2025 MRA Spine vessels MRI ANGIO SPINE Imaging Routine Lumbar radiculopathy Expected: 05/12/2024, Expires: 05/12/2025 [facility] Comment on above: Expected: 05/12/2024, Expires: 5 Start: 02-16-2024 COVID-19 VACCINE ( season) COVID-19 VACCINE ( season) [facility] Start: 02-16-2024 Covid-19 Vaccine ( season) Covid-19 Vaccine ( season) [facility] Start: 02-16-2024 Influenza vaccination INFLUENZA VACCINE (#1) [facility] Start: 06-17-2023 Advance Directive Discussion Advance Directive Discussion [facility] Start: 12-03-2022 [place] and lambda light chains [facility] Start: 12-03-2022 Thiamine measurement [facility] Start: 11-30-2022 Patient referral [facility] Work Phone: Start: 01-01-2022 Procedure [facility] Work Phone: Start: 01-01-2022 [facility] Work Phone: Start: 10-26-2021 Fungal Culture Fungal Culture [facility] Work Phone: Start: 04-30-2018 Lipid panel Lipid Screening [facility] Start: 02-15-2018 Influenza vaccination INFLUENZA VACCINE (#1) [facility] Start: 10-22-2017 End: 10-22-2017 Appointment Appointment [facility] Work Phone: Start: 10-22-2017 End: 10-22-2017 Appointment Appointment [facility] Work Phone: Start: 09-18-2017 End: 09-18-2017 Appointment Appointment [facility] Work Phone: Start: 01-28-2017 End: 01-28-2017 Appointment Appointment [facility] Work Phone: Start: 01-28-2017 End: 01-28-2017 Appointment Appointment [facility] Work Phone: Start: 01-28-2017 End: 01-28-2017 Echocardiography Echocardiogram (complete) [facility] Work Phone: Start: 01-28-2017 End: 01-28-2017 Follow Up Appt 6 months Follow Up Appt 6 months [facility] Work Phone: Start: 01-28-2017 End: 01-28-2017 MMM MMM [facility] Work Phone: Start: 01-28-2017 End: 01-28-2017 Nuclear stress test -exercise Nuclear stress test -exercise [facility] Work Phone: Start: 10-23-2016 End: 10-23-2016 Appointment Appointment [facility] Work Phone: Start: 10-23-2016 End: 10-23-2016 Follow Up Appt 1 year Follow Up Appt 1 year [facility] Work Phone: Start: 10-23-2016 End: 10-23-2016 MMM MMM [facility] Work Phone: Start: 10-12-2016 End: 10-12-2016 *BMP *BMP [facility] Work Phone: Start: 10-12-2016 End: 10-12-2016 *CBC with Differential *CBC with Differential [facility] Work Phone: Start: 10-12-2016 End: 10-12-2016 CBC W Auto Differential panel - Blood *CBC without Diff [facility] Work Phone: Start: 10-12-2016 End: 10-12-2016 Follow Up Appt 6 months Follow Up Appt 6 months [facility] Work Phone: Start: 10-12-2016 End: 09-24-2016 Implantable Loop Recorder Implantable Loop Recorder [facility] Work Phone: Start: 10-12-2016 End: 10-12-2016 PFM PFM [facility] Work Phone: Start: 10-12-2016 End: 10-12-2016 Appointment Appointment [facility] Work Phone: Start: 10-12-2016 End: 10-12-2016 *BMP *BMP [facility] Work Phone: Start: 10-12-2016 End: 02-05-2017 *CBC with Differential *CBC with Differential [facility] Work Phone: Start: 10-12-2016 End: 10-12-2016 CBC W Auto Differential panel - Blood *CBC without Diff [facility] Work Phone: Start: 10-12-2016 End: 10-12-2016 Follow Up Appt 6 months Follow Up Appt 6 months [facility] Work Phone: Start: 10-12-2016 End: 02-05-2017 Implantable Loop Recorder Implantable Loop Recorder [facility] Work Phone: Start: 10-12-2016 End: 10-12-2016 PFM PFM [facility] Work Phone: Start: 09-24-2016 End: 10-05-2016 Follow Up Appt 1 month Follow Up Appt 1 month [facility] Work Phone: Start: 09-24-2016 End: 10-05-2016 Pacer Clinic [facility] Work Phone: Start: 09-24-2016 End: 10-05-2016 Follow Up Appt 1 month Follow Up Appt 1 month [facility] Work Phone: Start: 09-24-2016 End: 10-05-2016 Pacer Clinic Pacer Clinic [facility] Work Phone: Start: 05-01-2016 Diabetes Screening Diabetes Screening [facility] Start: 04-17-2016 End: 10-05-2016 Follow Up Appt 6 months Follow Up Appt 6 months [facility] Work Phone: Start: 04-17-2016 End: 10-05-2016 Pacer Clinic Pacer Clinic [facility] Work Phone: Start: 04-17-2016 End: 10-05-2016 Follow Up Appt 6 months Follow Up Appt 6 months [facility] Work Phone: Start: 04-17-2016 End: 10-05-2016 Pacer Clinic Pacer Clinic [facility] Work Phone: Start: 04-10-2016 End: 04-10-2016 TRANSCRIPTION TYPIST TRANSCRIPTION TYPIST [facility] Work Phone: Start: 04-10-2016 End: 04-10-2016 Device Interrogation Device Interrogation [facility] Work Phone: Start: 04-10-2016 End: 04-10-2016 Follow Up Appt 6 months Follow Up Appt 6 months [facility] Work Phone: Start: 04-10-2016 End: 04-10-2016 TRANSCRIPTION TYPIST TRANSCRIPTION TYPIST [facility] Work Phone: Start: 04-10-2016 End: 04-10-2016 Device Interrogation Device Interrogation [facility] Work Phone: Start: 04-10-2016 End: 04-10-2016 Follow Up Appt 6 months Follow Up Appt 6 months [facility] Work Phone: Start: 10-03-2015 End: 10-03-2015 Ecg routine ecg w/least 12 lds w/i&r EKG (In office) [facility] Work Phone: Start: 10-03-2015 End: 10-03-2015 Echocardiography Echocardiogram (complete) [facility] Work Phone: Start: 10-03-2015 End: 03-30-2016 Follow Up Appt 3 months Follow Up Appt 3 months [facility] Work Phone: Start: 10-03-2015 End: 10-03-2015 Follow Up Appt 6 months Follow Up Appt 6 months [facility] Work Phone: Start: 10-03-2015 End: 10-03-2015 MMM MMM [facility] Work Phone: Start: 10-03-2015 End: 03-30-2016 Pacer Clinic Pacer Clinic [facility] Work Phone: Start: 10-03-2015 End: 10-03-2015 Echocardiography Echocardiogram (complete) [facility] Work Phone: Start: 10-03-2015 End: 10-03-2015 Electrocardiogram, complete EKG (In office) [facility] Work Phone: Start: 10-03-2015 End: 03-30-2016 Follow Up Appt 3 months Follow Up Appt 3 months [facility] Work Phone: Start: 10-03-2015 End: 10-03-2015 Follow Up Appt 6 months Follow Up Appt 6 months [facility] Work Phone: Start: 10-03-2015 End: 10-03-2015 MMM MMM [facility] Work Phone: Start: 10-03-2015 End: 03-30-2016 Pacer Clinic Pacer Clinic [facility] Work Phone: Start: 06-07-2015 End: 03-30-2016 Follow Up Appt 3 months Follow Up Appt 3 months [facility] Work Phone: Start: 06-07-2015 End: 03-30-2016 Pacer Clinic [facility] Clinic [facility] Work Phone: Start: 06-07-2015 End: 03-30-2016 Follow Up Appt 3 months Follow Up Appt 3 months [facility] Work Phone: Start: 06-07-2015 End: 03-30-2016 Pacer Clinic Pacer Clinic [facility] Work Phone: Start: 03-25-2015 End: 03-25-2015 Ecg routine ecg w/least 12 lds w/i&r EKG (In office) [facility] Work Phone: Start: 03-25-2015 End: 03-25-2015 Electrocardiogram, complete EKG (In office) [facility] Work Phone: Start: 03-11-2015 End: 03-11-2015 Ecg routine ecg w/least 12 lds w/i&r EKG (In office) [facility] Work Phone: Start: 03-11-2015 End: 03-30-2016 Follow Up Appt 3 months Follow Up Appt 3 months [facility] Work Phone: Start: 03-11-2015 End: 03-11-2015 Follow Up Appt 6 months Follow Up Appt 6 months [facility] Work Phone: Start: 03-11-2015 End: 03-30-2016 Pacer Clinic [facility] Clinic [facility] Work Phone: Start: 03-11-2015 End: 03-11-2015 PFM PFM [facility] Work Phone: Start: 03-11-2015 End: 03-11-2015 Electrocardiogram, complete EKG (In office) [facility] Work Phone: Start: 03-11-2015 End: 03-30-2016 Follow Up Appt 3 months Follow Up Appt 3 months [facility] Work Phone: Start: 03-11-2015 End: 03-11-2015 Follow Up Appt 6 months Follow Up Appt 6 months [facility] Work Phone: Start: 03-11-2015 End: 03-30-2016 Pacer Clinic [facility] Clinic [facility] Work Phone: Start: 03-11-2015 End: 03-11-2015 PFM PFM [facility] Work Phone: Start: 2015 Fall risk assessment Falls Risk Assessment [facility] Start: 2015 Pneumococcal vaccination PNEUMOCOCCAL VACCINE SERIES (1 of 2 - PCV13) [facility] Start: 01-06-2015 End: 03-02-2015 Follow Up Appt 3 months Follow Up Appt 3 months [facility] Work Phone: Start: 01-06-2015 End: 03-02-2015 Pacer Clinic Pacer Clinic [facility] Work Phone: Start: 01-06-2015 End: 03-02-2015 Follow Up Appt 3 months Follow Up Appt 3 months [facility] Work Phone: Start: 01-06-2015 End: 03-02-2015 Pacer Clinic Pacer Clinic [facility] Work Phone: Start: 09-08-2014 End: 03-02-2015 Follow Up Appt 3 months Follow Up Appt 3 months [facility] Work Phone: Start: 09-08-2014 End: 03-02-2015 Follow Up Appt 6 months Follow Up Appt 6 months [facility] Work Phone: Start: 09-08-2014 End: 03-02-2015 MMM MMM [facility] Work Phone: Start: 09-08-2014 End: 03-02-2015 Pacer Clinic Pacer Clinic [facility] Work Phone: Start: 09-08-2014 End: 03-02-2015 Follow Up Appt 3 months Follow Up Appt 3 months [facility] Work Phone: Start: 09-08-2014 End: 03-02-2015 Follow Up Appt 6 months Follow Up Appt 6 months [facility] Work Phone: Start: 09-08-2014 End: 03-02-2015 MMM MMM [facility] Work Phone: Start: 09-08-2014 End: 03-02-2015 Pacer Clinic Pacer Clinic [facility] Work Phone: Start: 08-04-2014 End: 03-02-2015 Device Interrogation Device Interrogation [facility] Work Phone: Start: 08-04-2014 End: 03-02-2015 Device Interrogation Device Interrogation [facility] Work Phone: Start: 05-05-2014 End: 03-02-2015 Follow Up Appt 3 months Follow Up Appt 3 months [facility] Work Phone: Start: 05-05-2014 End: 03-02-2015 Pacer Clinic Pacer Clinic [facility] Work Phone: Start: 05-05-2014 End: 03-02-2015 Follow Up Appt 3 months Follow Up Appt 3 months [facility] Work Phone: Start: 05-05-2014 End: 03-02-2015 Pacer Clinic Pacer Clinic [facility] Work Phone: Start: 02-22-2014 End: 02-22-2014 Follow Up Appt 6 months Follow Up Appt 6 months [facility] Work Phone: Start: 02-22-2014 End: 02-22-2014 PFM PFM [facility] Work Phone: Start: 02-22-2014 End: 02-22-2014 Follow Up Appt 6 months Follow Up Appt 6 months [facility] Work Phone: Start: 02-22-2014 End: 02-22-2014 PFM PFM [facility] Work Phone: Start: 01-14-2014 End: 02-02-2014 Follow Up Appt 3 months Follow Up Appt 3 months [facility] Work Phone: Start: 01-14-2014 End: 02-02-2014 Pacer Clinic Pacer Clinic [facility] Work Phone: Start: 01-14-2014 End: 02-02-2014 Follow Up Appt 3 months Follow Up Appt 3 months [facility] Work Phone: Start: 01-14-2014 End: 02-02-2014 Pacer Clinic Pacer Clinic [facility] Work Phone: Start: 10-14-2013 End: 02-02-2014 Follow Up Appt 3 months Follow Up Appt 3 months [facility] Work Phone: Start: 10-14-2013 End: 02-02-2014 Pacer Clinic Pacer Clinic [facility] Work Phone: Start: 10-14-2013 End: 02-02-2014 Follow Up Appt 3 months Follow Up Appt 3 months [facility] Work Phone: Start: 10-14-2013 End: 02-02-2014 Pacer Clinic Pacer Clinic [facility] Work Phone: Start: 08-21-2013 End: 08-21-2013 Arterial exam Arterial exam [facility] Work Phone: Start: 08-21-2013 End: 08-21-2013 Follow Up Appt 6 months Follow Up Appt 6 months [facility] Work Phone: Start: 08-21-2013 End: 08-21-2013 MMM MMM [facility] Work Phone: Start: 08-21-2013 End: 08-21-2013 Arterial exam Arterial exam [facility] Work Phone: Start: 08-21-2013 End: 08-21-2013 Follow Up Appt 6 months Follow Up Appt 6 months [facility] Work Phone: Start: 08-21-2013 End: 08-21-2013 MMM MMM [facility] Work Phone: Start: 07-13-2013 End: 08-21-2013 Follow Up Appt 3 months Follow Up Appt 3 months [facility] Work Phone: Start: 07-13-2013 End: 08-21-2013 Pacer Clinic Pacer Clinic [facility] Work Phone: Start: 07-13-2013 End: 08-21-2013 Follow Up Appt 3 months Follow Up Appt 3 months [facility] Work Phone: Start: 07-13-2013 End: 08-21-2013 Pacer Clinic Pacer Clinic [facility] Work Phone: Start: 05-26-2013 End: 05-26-2013 Cardiac Rehab Cardiac Rehab [facility] Work Phone: Start: 05-26-2013 End: 05-26-2013 Cardiovascular stress test using treadmill Treadmill stress test (no imaging) [facility] Work Phone: Start: 05-26-2013 End: 05-26-2013 Follow Up Appt 3 months Follow Up Appt 3 months [facility] Work Phone: Start: 05-26-2013 End: 05-26-2013 PFM PFM [facility] Work Phone: Start: 05-26-2013 End: 05-26-2013 Cardiac Rehab Cardiac Rehab [facility] Work Phone: Start: 05-26-2013 End: 05-26-2013 Cardiovascular stress test using treadmill Treadmill stress test (no imaging) [facility] Work Phone: Start: 05-26-2013 End: 05-26-2013 Follow Up Appt 3 months Follow Up Appt 3 months [facility] Work Phone: Start: 05-26-2013 End: 05-26-2013 PFM PFM [facility] Work Phone: Start: 04-16-2013 End: 04-16-2013 aPTT *PTT-Partial Thromboplastin Time [facility] Work Phone: Start: 04-16-2013 End: 04-16-2013 Cardiovascular function eval w/tilt table w/mntr Tilt Table Test [facility] Work Phone: Start: 04-16-2013 End: 04-16-2013 Ecg routine ecg w/least 12 lds w/i&r EKG (In office) [facility] Work Phone: Start: 04-16-2013 End: 04-16-2013 Follow Up Appt 6 weeks Follow Up Appt 6 weeks [facility] Work Phone: Start: 04-16-2013 End: 04-16-2013 Follow Up Appt Other Follow Up Appt Other [facility] Work Phone: Start: 04-16-2013 End: 04-16-2013 INR Coag RelTime (PPP) *PT/INR [facility] Work Phone: Start: 04-16-2013 End: 04-16-2013 Left Heart Cath Left Heart Cath [facility] Work Phone: Start: 04-16-2013 End: 04-16-2013 MMM MMM [facility] Work Phone: Start: 04-16-2013 End: 04-16-2013 aPTT *PTT-Partial Thromboplastin Time [facility] Work Phone: Start: 04-16-2013 End: 04-16-2013 aPTT Coag time (PPP) *PTT-Partial Thromboplastin Time [facility] Work Phone: Start: 04-16-2013 End: 04-16-2013 Coagulation factor induced.INR assay in platelet poor plasma *PT/INR [facility] Work Phone: Start: 04-16-2013 End: 04-16-2013 Electrocardiogram, complete EKG (In office) [facility] Work Phone: Start: 04-16-2013 End: 04-16-2013 Follow Up Appt 6 weeks Follow Up Appt 6 weeks [facility] Work Phone: Start: 04-16-2013 End: 04-16-2013 Follow Up Appt Other Follow Up Appt Other [facility] Work Phone: Start: 04-16-2013 End: 04-16-2013 Left Heart Cath Left Heart Cath [facility] Work Phone: Start: 04-16-2013 End: 04-16-2013 MMM MMM [facility] Work Phone: Start: 04-16-2013 End: 04-16-2013 Tilt table evaluation Tilt Table Test [facility] Work Phone: Start: 2010 RSV VACCINE (1 - 1-dose 60+ series) RSV VACCINE (1 - 1-dose 60+ series) [facility] Start: 2010 RSV Vaccine (1 - Risk 60-74 years 1-dose series) RSV Vaccine (1 - Risk 60-74 years 1-dose series) [facility] Start: 03-24-2008 Fasting lipid profile LIPID SCREENING [facility] Start: 03-24-2008 Lipid panel [facility] Start: 01-08-2000 Administration of herpes zoster vaccine Zoster Vaccines (1 of 2) [facility] Start: 01-08-2000 Pneumococcal Vaccine: Age 50+ (1 of 1 - PCV) Pneumococcal Vaccine: Age 50+ (1 of 1 - PCV) [facility] Start: 01-08-2000 Prostate specific antigen measurement PROSTATE CANCER SCREENING DISCUSSION [facility] Start: 01-08-2000 Protein mass conc COLON CANCER SCREENING DISCUSSION [facility] Start: 01-08-2000 Screening for malignant neoplasm of colon Flexible sigmoidoscopy [facility] Start: 01-08-2000 Zoster vaccine hzv live for subcutaneous use ZOSTER (SHINGLES) VACCINE (1 of 2) [facility] Start: 01-08-2000 [facility] Start: 1995 Screening for malignant neoplasm of colon [facility] Start: 1969 Shingrix Vaccine (1 of 2) Shingrix Vaccine (1 of 2) [facility] Start: 1969 Third diphtheria, tetanus and acellular pertussis (DTaP) vaccination TDAP (ADULT) [facility] Start: 1969 Urine microalbumin profile DTaP,Tdap,Td Vaccine (1 - Tdap) [facility] Start: 01-08-1968 Anxiety Screening Anxiety Screening [facility] Start: 01-08-1968 Depression Screening Depression Screening [facility] Start: 01-08-1968 Hepatitis C screening Hepatitis C Screening [facility] Start: 01-08-1968 Tetanus vaccination TETANUS [facility] Start: 01-08-1960 Diabetic foot examination Diabetic Foot Exam [facility] Start: 01-08-1960 Glaucoma screening Diabetic Eye Exam [facility] Start: 01-08-1960 Urine screening for protein Urine (micro)albumin/creatini ne ratio - Diabetes [facility] Start: 1953 Medicare Wellness Visit Medicare Wellness Visit [facility] Start: 1950 Prostate specific antigen measurement PSA Level [facility] Start: 1950 Screening for malignant neoplasm of colon [facility] Start: 1950 Tetanus vaccination [facility] Start: 1950 Thyroid stimulating hormone measurement [facility] Acid fast bacilli culture [facility] Angiotensin converti ng enzyme [Enzymatic activity/volume] in Serum or Plasma [facility] Work Phone: Antibody to lupus La protein measurement [facility] Work Phone: Antibody to SS-A measurement [facility] Work Phone: Cyclic citrullinated peptide IgG Ab [Units/volume] in Serum or Plasma [facility] Work Phone: DNA double strand Ab [Units/volume] in Serum [facility] Work Phone: [place]/lambda light c tiffany ratio [facility] Lambda light chains. free [Mass/volume] in Serum or Plasma [facility] Lipid 1996 panel - S sintia or Plasma [facility] End: 02-11-2025 MR Cervical spine WO contrast [facility] Comment on above: 1 Occurrences starting 02/11/2025 until 02/11/2025 End: 08-25-2024 MR Lumbar spine WO contrast [facility] Comment on above: 1 Occurrences starting 08/25/2024 until 08/25/2024 End: 02-11-2025 MR Thoracic spine WO contrast [facility] Comment on above: 1 Occurrences starting 02/11/2025 until 02/11/2025 End: 05-20-2024 MRA Spine vessels [facility] Comment on above: 1 Occurrences starting 05/20/2024 until 05/20/2024 Mycobacterium sp identified in Unspecified specimen by Organism specific culture [facility] Natriuretic peptide. B prohormone N-Terminal [Mass/volume] in Serum or Plasma [facility] Neutrophil cytoplasm ic Ab.classic [Units/volume] in Serum [facility] Work Phone: NM Heart Views W str ess and W radionuclide IV [facility] Work Phone: Nuclear Ab [Presence ] in Serum [facility] Work Phone: P-ANCA measurement [facility] Work Phone: Patient Education [facility] Work Phone: Patient referral [facility] Work Phone: Procedure [facility] Work Phone: End: 03-11-2025 RF Greater than 1 hour [facility] SCL-70 extractable nuclear Ab [Units/volume] in Serum by Immunoassay [facility] Work Phone: Serum testosterone measurement [facility] Smooth muscle Ab [Presence] in Serum [facility] Work Phone: End: 03-05-2025 Standard ECG ECG ECG Routine One Time for 1 Occurrences starting 03/05/2025 until 03/05/2025 [facility] Comment on above: One Time for 1 Occurrences starting 02/15 until 03/05/2025 Testosterone Free [Mass/volume] in Serum or Plasma [facility] Testosterone measurement [facility] Urine kappa light ch ain measurement [facility] US Heart [facility] Work Phone: [facility] Immunizations Immunization Date Immunization Notes Care Provider Fa cilidominic 02-27-2019 influenza virus vaccine, unspecified formulation Nirav Melissa MD Work Phone: [facility] Payers Date Payer Category Payer Self-pay [id number] 2015 Unknown [id number] 2015 Managed Care (unspecified) [id number] 2015 Private Health Insurance HUMANA HUMANA MEDICARE SUPPLEMENT [id number] 2015-Present [phone] [address] [address] [place] [address] Indemnity [id number] 2015 Private Health Insurance [id number] 2014 Medicare [id number] 2014 Medicare [id number] 2012 Unknown MEDICAL MUT[employer] M MO xxxxxxxxxxxx 2012-Present [id number] .[id number] 1950 Unknown [id number] 2.16.840.1.750205.3.579.2 .903 1950 Unknown [id number] 2.16.840.1.242965.3.579.2 .903 1950 Unknown [id number] 2.16.840.1.550948.3.579.2 .903 1950 Unknown [id number] 2.16.840.1.292315.3.579.2 .1950 Unknown [id number] 2.16.840.1.035120.3.579.2 .3 1950 Unknown [id number] 2.16.840.1.566535.3.579.2 .1950 Unknown [id number] 2.16.840.1.323806.3.579.2 .1950 Unknown [id number] 2.16.840.1.144263.3.579.2 .1950 Unknown [id number] 2.16.840.1.328831.3.579.2 .1950 Unknown [id number] 2.16840.1.136159.3.579.2 .1950 Unknown [id number] 2.16.840.1.883838.3.579.2 .1950 Unknown [id number] 2.16.840.1.761926.3.579.2 .1950 Unknown [id number] 2.16.840.1.622167.3.579.2 .3 1950 Unknown [id number] 2.16.840.1.972379.3.579.2 .1950 Unknown [id number] 2.16.840.1.219137.3.579.2 .1950 Unknown [id number] 2.16.840.1.909802.3.579.2 .1950 Unknown [id number] 2.16.840.1.146319.3.579.2 .1950 Unknown [id number] 2.16.840.1.836239.3.579.2 .1950 Unknown [id number] 2.16.840.1.236672.3.579.2 .903 1950 Unknown [id number] 2.16.840.1.848307.3.579.2 .1950 Unknown [id number] 2.16.840.1.012277.3.579.2 .1950 Unknown [id number] 2.16840.1.530886.3.579.2 .1950 Unknown [id number] 2.16840.1.518267.3.579.2 .1950 Unknown [id number] 2.16840.1.137031.3.579.2 1950 Unknown [id number] 2.840.1.299244.3.579.2 .1950 Unknown [id number] 2.840.1.400741.3.579.2 .1950 Unknown [id number] 2.840.1.026798.3.579.2 .1950 Unknown [id number] 2.840.1.765639.3.579.2 .1950 Unknown [id number] 2.840.1.525377.3.579.2 .1950 Unknown [id number] 2.16840.1.605870.3.579.2 .594 1950 Unknown [id number] 2.16840.1.323143.3.579.2 .594 1950 Unknown [id number] 2.16840.1.292335.3.579.2 594 1950 Unknown [id number] 2.16840.1.337357.3.579.2 .594 1950 Unknown [id number] 2.16840.1.785793.3.579.2 .594 1950 Unknown [id number] 2.16.840.1.280793.3.579.2 .594 1950 Unknown [id number] 2.16.840.1.031489.3.579.2 .594 1950 Unknown [id number] 2..840.1.702611.3.579.2 .594 1950 Unknown [id number] 2..840.1.954927.3.579.2 .594 1950 Unknown [id number] 2..840.1.368277.3.579.2 .594 1950 Unknown [id number] 2..840.1.279691.3.579.2 .594 1950 Unknown [id number] 2.840.1.616886.3.579.2 .594 1950 Unknown [id number] 2.840.1.354528.3.579.2 .594 1950 Unknown [id number] 2.840.1.395289.3.579.2 .594 1950 Unknown [id number] 2.840.1.613786.3.579.2 .594 1950 Unknown [id number] 2.840.1.965989.3.579.2 .594 1950 Unknown [id number] 2.840.1.561872.3.579.2 .594 Unknown [id number] 2.840.1.270287.3.579.2 .462 Unknown [id number] 2.16840.1.788867.3.579.2 .462 Unknown [id number] 2.840.1.871724.3.579.2 .462 Unknown [id number] 2.840.1.781472.3.579.2 .462 Unknown [id number] 2.16.840.1.230533.3.579.2 .462 Unknown [id number] 2.16.840.1.153928.3.579.2 .462 Unknown [id number] 2.16.840.1.531608.3.579.2 .462 Unknown [id number] 2.16.840.1.120677.3.579.2 .462 Unknown [id number] 2.16840.1.224866.3.579.2 .462 Unknown [id number] 2.840.1.243845.3.579.2 .462 Unknown [id number] 2.840.1.172928.3.579.2 .462 Unknown [id number] 2.840.1.477985.3.579.2 .462 Unknown [id number] 2.840.1.631911.3.579.2 .462 Unknown [id number] 2.840.1.512743.3.579.2 .462 Unknown [id number] 2.840.1.512118.3.579.2 .462 Unknown [id number] 2.840.1.099077.3.579.2 .462 Unknown [id number] 2.840.1.291840.3.579.2 .462 Unknown [id number] 2.840.1.873116.3.579.2 .462 Unknown [id number] 2.16840.1.616324.3.579.2 .462 Unknown [id number] 2.16840.1.072776.3.579.2 .462 Unknown [id number] 2.16.840.1.808221.3.579.2 .462 Unknown [id number] 2.16.840.1.221381.3.579.2 .462 Unknown [id number] 2.16840.1.421426.3.579.2 .462 Unknown [id number] 2.16840.1.804144.3.579.2 .462 Unknown [id number] 2.16840.1.188705.3.579.2 .462 Unknown [id number] 2.16.840.1.435292.3.579.2 .462 Unknown [id number] 2.16840.1.625930.3.579.2 .462 Unknown [id number] 2.840.1.835334.3.579.2 .462 Unknown [id number] 2.16840.1.129855.3.579.2 .462 Unknown [id number] 2.16840.1.787037.3.579.2 .462 Unknown [id number] 2.840.1.948174.3.579.2 .462 Social History Date Type Detail Facility Start: 07-02-2012 End: 05-12-2013 Tobacco smoking status DCIS Never smoker [facility] Start: 1950 Sex Assigned At Not on file [facility] Start: 04-28-2021 End: 09-19-2023 Tobacco smoking status [facility] Unknown if ever smoked [facility] Start: 12-28-2019 None [facility] Start: 12-28-2019 Spouse/ Signif icant Other [facility] Start: 12-28-2019 Non-smoker [facility] Start: 1950 Sex Assigned At Male [facility] Start: 07-02-2012 End: 03-24-2025 Tobacco use and exposure Smokeless tobacco non-user [facility] Start: 08-23-2008 End: 05-12-2024 Alcoholic beverage intake Current non-drinker of alcohol (finding) [facility] Start: 05-12-2024 End: 03-19-2025 History of Social function [facility] Start: 05-12-2024 End: 03-19-2025 Tobacco use panel [facility] Start: 08-25-2024 End: 04-26-2025 Alcoholic beverage intake Lifetime non-drinker (finding) [facility] Start: 07-20-2012 End: 09-05-2024 Sex Male (finding) [facility] Start: 08-24-2024 Gender identity Identifies as male gender (finding) [facility] Start: 08-24-2024 Sexual orientation Heterosexual (kim valadez) [facility] How often to you hav e a drink containing alcohol? Never [facility] How many standard drinks containing alcohol do you have on a typical day? [facility] Medical Equipment Procedure Code Equipment Code Equipment Origin al Text Equipment Identifier Dates Implantable Card iac Monitor Nm - [id number] Start: 05-07-2013 Implantable Card iac Monitor Me - [id number] Start: 05-07-2013 7.0 X 45mm Screw Start: [...] Dhruv Start: 07-15-2012 85mm Dhruv Start: 07-15-2012 [id number] Start: 05-07-2013 [id number] Start: 07-15-2012 [id number] Start: 07-15-2012 [id number] Start: 07-15-2012 [id number] Start: 07-15-2012 [id number] Start: 07-15-2012 [id number] Start: 07-15-2012 [id number] Start: 04-18-2013 Goals Date Patient Goal Desired Activity /State Functional Status Date Assessment Result Facility 04-07-2025 How difficult have t hese problems made it for you to do your work, take care of things at home, or get along with other people? Not difficult at all 04/07/2025 11:53 AM Lynn Suarez RN Not difficult at all [facility] 03-23-2025 Patient Health Questionnaire 2 item (PHQ-2) [Reported] [facility] 03-11-2025 Total score [AUDIT-C] [facility] 07-30-2024 Functional status Ambulates [facility] Work Phone: [facility] Mental Status Date Assessment Result Facility 11-29-2024 Cognitive function Awake;Alert;A ppropriate;Follow s Commands [facility] Work Phone: 08-19-2024 Cognitive function Voice/Name [facility] Work Phone: 07-30-2024 Cognitive function Level Of Cons ciousness Awake;Alert;Appropriate;Follow s Commands [facility] Work Phone: 07-29-2024 Cognitive function Voice/Name [facility] Work Phone: 05-24-2024 Cognitive function Level Of Cons ciousness Awake;Alert;Appropriate [facility] Work Phone: 05-22-2024 Cognitive function Voice/Name [facility] Work Phone: Clinical Notes 04-17-2013 to 04-26-2025 PAN Royal - 04/26/2025 11:00 AM Adrianne Ortiz - 04/26/2025 11:00 AM Roger Oliveira MD - 04/12/2025 10:30 AM EDTPatiDina Mckinley RN - 04/07/2025 8:28 AM EDT Note Date & Type Note Facility 04-26-2025 History of Present illness Narrative NEUROSURGERY POST OPERATIVE PROGRESS NOTE Name: Gracie Lemons : 1950 Age: 75 y.o. Attending: Dr. Aleksandr Lemons is a s/p Right lateral T7-8 discectomy on 03/11/25. HPI: Gracie Lemons is a 75 y.o. male who had been experiencing worsening paraparesis. Imaging revealed a T7-8 herniated disc causing ventral spinal cord compression. Patient underwent above procedure. Post operatively went to IRF and was discharged on 04/07/25. PM&R following. He presents today for routine follow-up and reports will begin outpatient PT and OT tomorrow. Denies any significant or radiating mid back pain today. No longer using gabapentin. Activity level - using wheel chair. Reports after surgery his right leg was very weak. He reports some strength has returned. He is able to stand and pivot with walker. He has no incisional concerns and denies drainage, erythema, swelling or tenderness of the incision. Past Medical History: Past Medical History[1] Review of Systems: Negative except those listed in HPI. History obtained from patient and chart. Physical Examination: Vital Signs: Vitals: 04/26/25 1043 BP: 121/66 Pulse: 63 Temp: 97.2 degrees F (36.2 degrees C) TempSrc: Infrared SpO2: 96% Weight: 76.1 kg (167 lb 12.8 oz) Height: 1.651 m (5' 5) Body mass index is 27.92 kg/m . Constitutional: awake, alert, no acute distress, appears as stated age Head: normocephalic Eyes: conjunctiva normal, gaze conjugate Neck: Supple, symmetric, trachea midline Respiratory: respirations unlabored, symmetric chest wall rise and fall, normal respiratory effort Skin: incision is c/d/i; no evidence of infection MSK: moving all extremities, no swelling Psych: mood and affect appropriate Neuro Exam: Awake, A&O x 3 CNII-XII grossly intact, speech clear and appropriate Sensation equal bl LE to light touch No clonus DTR +2 bl to patellar reflexes, 2+ bl achilles reflexes. LE Strength: generalized weakness. Hip Flexion Right 4/5 Left 5/5 Knee Flex Knee Ext Ankle DF Ankle PF EHL Right 5/5 5/5 5/5 5/5 5/5 Left 5/5 5/5 5/5 5/5 5/5 Gait: unable to assess today Laboratory and Imaging Reviewed: N/A Assessment and Plan: ICD-10-CM 1. Spinal cord compression G95.20 2. S/P discectomy Z98.890 Plan: - Overall, Gracie Lemons has done well from surgery with improvement in his preoperative symptoms. - Denies any new n/t/weakness - Currently at home - begin outpatient PT/OT. Patient underwent evaluate and plans to begin therapy. - Pain controlled - Advised to call the office with any new concerns - F/U in 6 weeks CUATE Royal CNP, Department of Neurosurgery [facility] [1] Past Medical History: Diagnosis Date Anemia BPH (benign prostatic hyperplasia) Brain abscess CAD (coronary artery disease) Cardiac angina Colon polyp Diabetes mellitus GERD (gastroesophageal reflux disease) High cholesterol HTN (hypertension) Nephrolithiasis RAFAEL (obstructive sleep apnea) Primary adrenal deficiency Stroke Stroke-like episode x3 Syncope Thalamic infarction TIA (transient ischemic attack) Pt stated he had fall in waiting area where he cut his left forearm, declines any need for medical attention documented in this encounter [facility] 04-12-2025 History of Present illness Narrative [facility] New Patient Visit Patient name: Gracie Lemons Date: 04/12/2025 Accompanied by: He is accompanied by . Referral information/Reason for follow up: He was referred by Sadnhya Pompa MD for consultation regarding possible parkinsonism. HISTORY OF PRESENT ILLNESS: History: Gracie Lemons is a 75 y.o. male who presents for eval of parkinsonism. He has a past medical history of Anemia, BPH (benign prostatic hyperplasia), Brain abscess, CAD (coronary artery disease), Cardiac angina, Colon polyp, Diabetes mellitus, GERD (gastroesophageal reflux disease), High cholesterol, HTN (hypertension), Nephrolithiasis, RAFAEL (obstructive sleep apnea), Primary adrenal deficiency, Stroke, Stroke-like episode, Syncope, Thalamic infarction, and TIA (transient ischemic attack). He has no past medical history of Arthritis, Asthma, Hyperthyroidism, Hypothyroidism, Liver disease, Migraine, Pacemaker, Seizure, or Sickle cell anemia. History of Present Illness The patient presents for evaluation of suspected Parkinson's disease, memory issues, and post-surgical weakness. He is accompanied by his . He underwent back surgery on 03/13/2025, specifically at the T7-T8 disc, which was approached laterally. Post-surgery, he experienced significant complications, including lung issues, necessitating admission to the CCU. During his stay, a marketing team lead suggested the possibility of Parkinson's disease. He was subsequently transferred to a rehabilitation facility in [place] for two weeks, where he was initiated on carbidopa-levodopa therapy. Despite this, he remains unable to walk. His right leg, which was initially paralyzed post-surgery, has shown some improvement, although the cause of this paralysis remains unknown. He has been experiencing a mild tremor for several months, along with balance issues and a shuffling gait, requiring the use of a cane. He has been on carbidopa-levodopa 25/100 mg three times daily for approximately two weeks. For the past three years, he has been dealing with episodes of leg weakness, attributed to a disc prolapse. Various spine specialists and neurologists have been consulted, with the latter attributing the issue to his back. Conduction tests were performed, and a disc pressing against the spinal cord was identified as a potential cause. He has also been experiencing spells of weakness and fatigue, leading to further leg weakness and occasional reluctance to get up and dress due to fatigue. He uses a cane for balance and occasionally a walker at home due to perceived weakness. His voice has become hoarse, and he appears to be straining to speak. He has not noticed any improvement with carbidopa-levodopa. He has an upcoming appointment with Dr. Flores for a surgical follow-up. He was started on donepezil (Aricept) by his family doctor about a month ago due to concerns about early dementia. His had noticed increased forgetfulness, particularly with short-term memory, such as forgetting appointments or confusing dates. He has not undergone formal memory assessment. He takes nortriptyline for severe burning on his left side following a thalamic stroke that occurred during an embolism procedure for a meningioma 22 years ago. If he does not take it, the burning comes back. He lost his sense of taste for about 2 months while on prednisone for pulmonary fibrosis but regained it after stopping the medication. He reports good sleep but admits to difficulty falling asleep. He does not act out his dreams. He reports no constipation but has experienced incontinence and diarrhea since his hospital stay, which are now under better control. Current Relevant Medication Schedule Donepezil Gabapentin Melatonin Metoprolol Nortriptyline 25 mg Sinemet 25/100 one tablet TID Disease Summary: Handedness: R Onset of symptoms: 9 months ago Initial symptoms: Walking issues with shuffling gait Neurosurgical history: Surgery of thoracic spine. Medications Tried Parkinson's disease pre-screening flowsheet data: Symptomatic Assessment and Review of Systems: Weight loss: Yes Fever: No Falls: No Blurred vision: No Double vision: No Dry mouth: Yes Inability to smell: No Difficulty swallowing: No Soft voice: Yes Urinary problems: Yes Constipation: No Sudden sleep attacks: No Sleep disturbances: No Cognitive changes: Yes Light-headedness: No Muscle cramping/toe curling: No Depression: No Anxiety: Yes Hallucinations: No Delusions: No Impulsivity: No Currently driving? No Exercising? No Recent rehab services? Yes Treatment effective: Motor fluctuations: Dyskinesias: Freezing: Assistive devices used: Yes Dream enactment behavior: PAST MEDICAL HISTORY, FAMILY HISTORY, SOCIAL HISTORY, ALLERGIES, MEDICATIONS Past Medical History He has a past medical history of Anemia, BPH (benign prostatic hyperplasia), Brain abscess, CAD (coronary artery disease), Cardiac angina, Colon polyp, Diabetes mellitus, GERD (gastroesophageal reflux disease), High cholesterol, HTN (hypertension), Nephrolithiasis, RAFAEL (obstructive sleep apnea), Primary adrenal deficiency, Stroke, Stroke-like episode, Syncope, Thalamic infarction, and TIA (transient ischemic attack). He has no past medical history of Arthritis, Asthma, Hyperthyroidism, Hypothyroidism, Liver disease, Migraine, Pacemaker, Seizure, or Sickle cell anemia. Past Surgical History He has a past surgical history that includes back surgery (1984); brain surgery (2002); hernia repair (2008); wisdom teeth extraction; complete extraction of teeth; laminectomy facetectomy and foraminotomy vertebral segment lumbar single (07/15/2012); fusion posterior lumbar (07/15/2012); insertion spinal instrumentation posterior nonsegmental add-on px (07/15/2012); brain meningioma excision; loop recorder implantation (05/07/2013); fusion extreme lateral interbody lumbar (N/A, 03/11/2025); corpectomy vertebral w/ decompression transthoracic approach (N/A, 03/11/2025); graft spine surgery only autograft posterior add-on px (N/A, 03/11/2025); and thoracostomy tube (Right, 03/16/2025). Family History His family history includes Cancer in his mother; Diabetes in his father; Heart Disease - Other in his father, mother, and sister; Heart Failure in his father; Hypertension in his mother and sister. Social History He reports that he has never smoked. He has never used smokeless tobacco. He reports that he does not drink alcohol and does not use drugs. Allergies He is allergic to acetaminophen, dilaudid [hydromorphone], and penicillins. Current Medications Current Outpatient Medications Medication Sig Ascorbic Acid 250 MG tablet Take 1 tablet by mouth daily. Carbidopa-levodopa 25-100 MG per tablet Take 1 tablet by mouth Three times a day. clopidogrel (PLAVIX) 75 MG PO TABS Take 1 tablet by mouth at bedtime. Cyclobenzaprine 10 MG tablet Take 1 tablet by mouth 3 times daily. Dapagliflozin Pro-metFORMIN ER 5-1000 MG Tab SR 24 HR Take 2 tablets by mouth daily. donepezil 5 MG tablet Take 1 tablet by mouth At bedtime. Ergocalciferol 43158 units capsule Take 1 capsule by mouth every 7 days. (Patient taking differently: Take 0.1 capsules by mouth every 7 days.) ezetimibe (ZETIA) 10 MG PO TABS Take 1 tablet by mouth at bedtime. gliMEPIride 4 MG tablet Take 1 tablet by mouth daily every morning. Levothyroxine 50 MCG tablet Take 1 tablet by mouth daily. [Paused] lisinopril 20 MG Tab Take 1 tablet by mouth daily. Metoprolol 100 MG tab regular release Take 0.5 tablets by mouth 2 times daily. Mounjaro 10 MG/0.5ML Solution Auto-injector Inject 10 mg as directed once a week. (Patient taking differently: Inject 10 mg as directed once a week. Paused medication) Multiple Vitamin (Multi-Vitamins) tablet Take 1 tablet by mouth daily. [Paused] NINTEDANIB, BIBF 1120,/PLACEBO, [id number], 150 MG capsule Take 1 capsule by mouth every 12 hours. nitroGLYCERIN 0.[address] 1 tablet under tongue every 5 minutes as needed for Chest pain. max = 3 doses. If CP persists after 1st dose, call 911 nortriptyline 25 MG PO CAPS Take 1 capsule by mouth at bedtime. oxyBUTYnin CR 10 MG Tab SR 24 HR tablet Take 1 tablet by mouth 2 times daily. pantoprazole [address] Take 1 tablet by mouth daily. rosuvastatin 10 MG Tab tablet Take 1 tablet by mouth daily. Senna 8.6 MG tablet Take 1 tablet by mouth every 12 hours as needed for Constipation. vitamin E 400 units capsule Take 1 capsule by mouth daily. ferrous sulfate 324 (65 Fe) MG Tab DR tablet Take 1 tablet by mouth daily. (Patient not taking: Reported on 04/12/2025) Gabapentin 300 MG capsule Take 1 capsule by mouth at bedtime for 7 days. (Patient not taking: Reported on 04/12/2025) guaiFENesin 600 MG Tab SR 12 HR tablet SR Take 1 tablet by mouth every 12 hours. (Patient not taking: Reported on 04/12/2025) Melatonin 3 MG tablet Take 2 tablets by mouth at bedtime as needed for Insomnia. (Patient not taking: Reported on 04/12/2025) Polyethylene glycol 17 g Pack packet Take 1 packet by mouth every 12 hours as needed for Constipation. (Patient not taking: Reported on 04/12/2025) REVIEW OF SYSTEMS: 14 point review of systems were reviewed and pertinent findings are as indicated in the HPI. All others were negative. RELEVANT PRIOR EVALUATIONS AND TESTS: Imaging (personally reviewed): MRI DS: 02/11/2025: Multilevel degenerative changes, greatest at T7-T8 with severe spinal canal stenosis. MRI CS: 02/11/2025: Multilevel degenerative changes with severe left-sided and mild to moderate right-sided neuroforaminal narrowing at C3-C4, moderate to severe right-sided and moderate left-sided neural foraminal narrowing at C4-C5, and moderate right-sided neuroforaminal narrowing at C5-C6 and C6-C7. No high-grade spinal canal stenosis. No focal cervical cord lesions. No suspicious osseous lesions. MRI Brain 03/14/2025: No evidence of acute infarct or mass effect. Remote insult in the right cerebral hemisphere with adjacent craniectomy. Remote right cerebellar infarcts. Labs: Neurophysiology: PHYSICAL EXAM: Vitals: Vitals: 04/12/25 0948 BP: 104/55 Pulse: 56 Resp: 12 Temp: 97.4 F (36.3 C) SpO2: 96% Neurologic Examination Mental status/Cognition: Alert; good attention, responds appropriately Speech/language: fluency intact and comprehension intact Cranial nerves: CN II CN III,IV, Pupils equal, round, reactive and with consensual response.. Extraocular movements intact and There are no square wave jerks CN V CN VII There is no hypomimia CN VIII Hearing intact to voice grossly and No nystagmus noted CN IX & X No dysarthria. There is no hypophonia CN XI Shoulder shrug strength 5/5 bilaterally CN XII Tongue protrudes midline Motor: Mvmt Root Nerve Muscle Right Left Comments SA C5/6 Ax Deltoid 5 5 EF C5/6 Mc Biceps 5 5 EE C6/7/8 Rad Triceps 5 5 WF C6/7 Med FCR 5 5 WE C7/8 PIN ECU 5 5 F Ab C8/T1 U ADM/FDI 5 5 HF L1/2/3 Fem Illopsoas 2 5 KE L2/3/4 Fem Quad 2 5 DF L4/5 D Peron Tib Ant 2 5 PF S1/2 Tibial Grc/Vibha 2 5 Weakness in the R LL ASSESSMENT/PLAN ICD-10-CM 1. Weakness of extremity R29.898 This is a 75-year-old male with a history of gait disturbances and lower limb (LL) weakness, in the context of thoracic spine stenosis and delayed postoperative recovery. On examination today, he demonstrates right lower limb weakness. There are no signs of Parkinson s disease (PD), including tremors, rigidity, bradykinesia, or other parkinsonian features. His [place] Cognitive Assessment (MoCA) score today was 22/30. He is currently taking Aricept, which is being managed by his primary care provider (PCP). I reassured the patient that he does not have PD. Given the lack of clinical benefit and absence of PD features, I recommended discontinuing Sinemet. I advised the patient to contact his PCP to consider increasing the Aricept dose to 10 mg. He should continue follow-up with his spine surgeon and physical therapy. Plan: 1- You don't have Parkinson's disease. 2- Stop sinemet. 3- Increase Aricept to 10 mg. 4- Continue PT. 5- FU with spine surgery. Total time: 75 minutes, which includes [id number] time, counseling and educating the patient, chart completion, reviewing records and relevant labs/imaging, review of medications, changes in medical history and placing referrals. SignedTee MD Lead Mechanic - Clinical Movement Disorders Division Department of Neurology [facility] documented in this encounter [facility] 04-12-2025 Instructions Tee Oliveira MD - 04/12/2025 10:30 AM EDT You don't have Parkinson's disease. Stop sinemet. Increase Aricept to 10 mg. Continue PT. FU with spine surgery. documented in this encounter [facility] 04-07-2025 Progress note Formatting of t his note might be different from the original. Pt. Discharged home with via personal vehicle. Pt. Has all belongings and home meds were returned. Pt. Condition good on discharge. [facility] 04-07-2025 Miscellaneous Notes Pt. Discharged home with via personal vehicle. Pt. Has all belongings and home meds were returned. Pt. Condition good on discharge. Problem: Actual or potential alteration in health Goal: Absence of healthcare acquired conditions Outcome: Partially Met Goal: Knowledge of Interdisciplinary Plan of Care Outcome: Partially Met Goal: Knowledge of Enviroment Outcome: Partially Met Problem: Pressure Injury, Risk of Goal: Absence of pressure injury Outcome: Partially Met Problem: Falls, Risk of Goal: Absence of falls Outcome: Partially Met Goal: Absence of physical injury Outcome: Partially Met Problem: Pain Goal: Reduced pain sensation Outcome: Partially Met Goal: Control of acute pain to acceptable level Outcome: Partially Met Goal: Able to cope with pain Outcome: Partially Met Goal: Able to achieve maximum level of physical functioning Outcome: Partially Met Goal: Able to achieve maximum level of psychosocial functioning Outcome: Partially Met [facility] Nurse Notes Problem: Actual or potential alteration in health Goal: Absence of healthcare acquired conditions Outcome: Partially Met Goal: Knowledge of Interdisciplinary Plan of Care Outcome: Partially Met Goal: Knowledge of Enviroment Outcome: Partially Met Problem: Pressure Injury, Risk of Goal: Absence of pressure injury Outcome: Partially Met Problem: Falls, Risk of Goal: Absence of falls Outcome: Partially Met Goal: Absence of physical injury Outcome: Partially Met Problem: Pain Goal: Reduced pain sensation Outcome: Partially Met Goal: Control of acute pain to acceptable level Outcome: Partially Met Goal: Able to cope with pain Outcome: Partially Met Goal: Able to achieve maximum level of physical functioning Outcome: Partially Met Goal: Able to achieve maximum level of psychosocial functioning Outcome: Partially Met [facility] Physical Therapy Notes Problem: Mobility - Impaired Goal: PT- LTG bed mobility Description: PT - Patient will perform bed mobility with supervision and appropriate AE to improve functional mobility and safety. Outcome: Met Note: Pt is performing with WA with HR and some safety concerns Goal: PT- LTG sit to stand transfer Description: PT - Patient will perform sit to/from stand transfer with minimal assist, moderate assist, approriate device to improve functional mobility and safety. Outcome: Met Note: Pt is performing with CGA with RW and cues for safety Goal: PT- LTG stand-pivot transfer Description: PT - Patient will perform stand-pivot transfer with minimal assist, moderate assist, approriate device to improve functional mobility and safety. Outcome: Met Note: Pt is performing with CGA with RW and cues for safety Goal: PT- LTG car transfer Description: PT - Patient will perform car transfer with minimal assist, moderate assist to improve functional mobility and safety. Outcome: Met Note: Pt is performing with CGA with RW and cues for safety Goal: PT- LTG dynamic balance Description: PT - Patient will perform standing dynamic balance activities with device with minimal assist, moderate assist to improve functional mobility and safety. Outcome: Met Note: Pt is needing CGA/min assist with at least 1 UE support on RW and cues to keep bilat knees in extension Goal: PT- LTG ambulation Description: PT - Patient will ambulate at least 75+ feet with device with minimal assist, moderate assist to improve functional mobility and safety. Outcome: Met Note: Pt is ambulating up to 157 ft with RW and CGA with cues for technique Goal: PT- LTG stair climbing Description: PT - Patient will ascend and descend 3+ stairs with non-reciprocal technique with 2 rails with minimal assist, moderate assist, 2-person assist to improve functional mobility and safety. Outcome: Met Note: Pt is performing curb step with RW and min assist and cues for safe technique. Goal: PT- LTG wheelchair management Description: PT - Patient will propel and manage wheelchair at least 100+ feet with supervision to improve functional mobility and safety. Outcome: Met Note: Pt is propelling w/c 150 ft with supervision on even surfaces with mainly UEs Goal: PT- LTG mobility other Description: PT- Patient and/or caregiver(s) will verbalize and demonstrate adequate understanding of appropriate HEP to improve functional strength and perform program with IND. Outcome: Met Note: Pt and his are able to complete pt's LE HEP IND for home going. Pt progressed well towards all goals and met them with increasing independence in all areas of mobility. Pt will need to use RW with at least CGA as main mode of mobility. PT is also recommending pt to use w/c for longer distances and as needed due to pt's knees buckling with fatigue even at shorter distances walked. Pt's caregiver has been in for training for transfers, gait and stairs, and was able to return demo independently. Recommend 24 hour assist available and continued PT to continue to work on strengthening and balance for home and community mobility. Problem: Actual or potential alteration in health Goal: Absence of healthcare acquired conditions Outcome: Partially Met Goal: Knowledge of Interdisciplinary Plan of Care Outcome: Partially Met Goal: Knowledge of Enviroment Outcome: Partially Met Problem: Pressure Injury, Risk of Goal: Absence of pressure injury Outcome: Partially Met Problem: Falls, Risk of Goal: Absence of falls Outcome: Partially Met Goal: Absence of physical injury Outcome: Partially Met Problem: Pain Goal: Reduced pain sensation Outcome: Partially Met Goal: Control of acute pain to acceptable level Outcome: Partially Met Goal: Able to cope with pain Outcome: Partially Met Goal: Able to achieve maximum level of physical functioning Outcome: Partially Met Goal: Able to achieve maximum level of psychosocial functioning Outcome: Partially Met [facility] Occupational Therapy Notes Pt has made excellent progress towards established goals throughout rehab stay, demonstrating improvements in overall performance with self care tasks, functional transfers, endurance, balance, and strength as compared to initial evaluation. Patient initially requiring 2-3 person assist for ADLs and transfers at evaluation and is now completing with CGA and use of WW. Pt continues to require min safety cues and is limited by continued weakness in LE 's with buckling at times, particularly with extended time in standing and with bilateral UE engagement in tasks. Family training completed prior to discharging home with recommendations to continue with skilled therapy services at discharge. Problem: Self-care Deficit Goal: OT- LTG grooming Description: OT - Patient will complete grooming tasks from w/c level with modified independence and/or with contact guard assist in standing in order to improve self care function. Outcome: Met Note: CGA - standing Mod Ind - seated Goal: OT- LTG UB dressing Description: OT - Patient will complete UB dressing with set-up assist in order to improve self care function. Outcome: Met Goal: OT- LTG toileting Description: OT - Patient will complete toileting with minimal assist in order to improve self care function. Outcome: Met Note: CGA Goal: OT- LTG Self-Care Other Description: OT- Patient will participate in family/caregiver training as needed to enhance a safe return to home environment by time of discharge, including education on ADLs, functional transfers, precautions, fall prevention, HEP, and any adaptive equipment needs. Outcome: Met Problem: Mobility - Impaired Goal: OT- LTG toilet transfer Description: OT - Patient will complete toilet transfer with contact guard assist and use of AD in preparation for ADL's. Outcome: Met Note: CGA Goal: OT- LTG navigation Description: OT - Patient will navigate environment within short household distances with minimal assist and use of AD during simple item retrieval tasks in anticipation for safe return to home/community. Outcome: Met Note: CGA with intermittent Min A and use of AD - min cues Problem: Impaired Strength Goal: OT- LTG Strength Other Description: OT- Patient will tolerate 15 mins of BUE strengthening exercises (WITHIN PRECAUTIONS) in order to improve necessary strength for functional mobility and self care tasks with patient able to complete exercises with no more than min cues by time of discharge. Outcome: Met Problem: Self-care Deficit Goal: OT- LTG LB dressing Description: OT - Patient will complete LB dressing with contact guard assist / footwear management with stand by assist through use of AE with adherence to back precautions in order to improve self care function. Outcome: Partially Met Note: CGA w/ AE - LB dressing SBA-CGA w/ AE and cues - socks/shoes Dependent - daniela hose Goal: OT- LTG LB bathing Description: OT - Patient will complete UB/LB bathing with stand by assist from seated position with use of AE in order to improve self care function. Outcome: Partially Met Note: SBA with AE from seated position CGA when standing Goal: OT- LTG precautions Description: OT - Patient will demonstrate back precaution management with independence in order to improve safe and appropriate ADL/IADL management. Outcome: Partially Met Note: Supervision, min cues Problem: Impaired Neurologic Function Goal: OT- LTG dynamic sitting balance Description: OT - Patient will complete dynamic sitting balance activity with modified independence during extended reaching tasks outside MARK while on unsupported surfaces in preparation for ADL's. Outcome: Partially Met Note: SBA-CGA Goal: OT- LTG static standing balance Description: OT - Patient will complete static standing balance activity with contact guard assist during unilateral task engagement at tabletop level for durations >5 mins with no need for blocking to BLEs in preparation for ADL's. Outcome: Partially Met Note: CGA - can increase to Min A with fatigue in standing past 4-5 mins LE 's continue to buckle at times with fatigue Problem: Mobility - Impaired Goal: OT- STG toilet transfer Description: OT - Patient will complete toilet transfer with maximum assist (x1) with use of AD in preparation for ADL's. Outcome: Completed Problem: Impaired Neurologic Function Goal: OT- STG static standing balance Description: OT - Patient will complete static standing balance activity with moderate assist during unilateral engagement in tabletop tasks for durations up to 2-3 mins with no more than min blocking required to BLEs in preparation for ADL's. Outcome: Completed Problem: Actual or potential alteration in health Goal: Absence of healthcare acquired conditions Outcome: Partially Met Goal: Knowledge of Interdisciplinary Plan of Care Outcome: Partially Met Goal: Knowledge of Enviroment Outcome: Partially Met Problem: Pressure Injury, Risk of Goal: Absence of pressure injury Outcome: Partially Met Problem: Falls, Risk of Goal: Absence of falls Outcome: Partially Met Goal: Absence of physical injury Outcome: Partially Met Problem: Pain Goal: Reduced pain sensation Outcome: Partially Met Goal: Control of acute pain to acceptable level Outcome: Partially Met Goal: Able to cope with pain Outcome: Partially Met Goal: Able to achieve maximum level of physical functioning Outcome: Partially Met Goal: Able to achieve maximum level of psychosocial functioning Outcome: Partially Met [facility] Nurse Notes Problem: Actual or potential alteration in health Goal: Absence of healthcare acquired conditions Outcome: Partially Met Goal: Knowledge of Interdisciplinary Plan of Care Outcome: Partially Met Goal: Knowledge of Enviroment Outcome: Partially Met Problem: Pressure Injury, Risk of Goal: Absence of pressure injury Outcome: Partially Met Problem: Falls, Risk of Goal: Absence of falls Outcome: Partially Met Goal: Absence of physical injury Outcome: Partially Met Problem: Pain Goal: Reduced pain sensation Outcome: Partially Met Goal: Control of acute pain to acceptable level Outcome: Partially Met Goal: Able to cope with pain Outcome: Partially Met Goal: Able to achieve maximum level of physical functioning Outcome: Partially Met Goal: Able to achieve maximum level of psychosocial functioning Outcome: Partially Met [facility] Nurse Notes Problem: Actual or potential alteration in health Goal: Absence of healthcare acquired conditions Outcome: Partially Met Goal: Knowledge of Interdisciplinary Plan of Care Outcome: Partially Met Goal: Knowledge of Enviroment Outcome: Partially Met Problem: Pressure Injury, Risk of Goal: Absence of pressure injury Outcome: Partially Met Problem: Falls, Risk of Goal: Absence of falls Outcome: Partially Met Goal: Absence of physical injury Outcome: Partially Met Problem: Pain Goal: Reduced pain sensation Outcome: Partially Met Goal: Control of acute pain to acceptable level Outcome: Partially Met Goal: Able to cope with pain Outcome: Partially Met Goal: Able to achieve maximum level of physical functioning Outcome: Partially Met Goal: Able to achieve maximum level of psychosocial functioning Outcome: Partially Met [facility] Nurse Notes Problem: Actual or potential alteration in health Goal: Absence of healthcare acquired conditions Outcome: Partially Met Goal: Knowledge of Interdisciplinary Plan of Care Outcome: Partially Met Goal: Knowledge of Enviroment Outcome: Partially Met Problem: Pressure Injury, Risk of Goal: Absence of pressure injury Outcome: Partially Met Problem: Falls, Risk of Goal: Absence of falls Outcome: Partially Met Goal: Absence of physical injury Outcome: Partially Met Problem: Pain Goal: Reduced pain sensation Outcome: Partially Met Goal: Control of acute pain to acceptable level Outcome: Partially Met Goal: Able to cope with pain Outcome: Partially Met Goal: Able to achieve maximum level of physical functioning Outcome: Partially Met Goal: Able to achieve maximum level of psychosocial functioning Outcome: Partially Met [facility] Nurse Notes Problem: Actual or potential alteration in health Goal: Absence of healthcare acquired conditions Outcome: Partially Met Goal: Knowledge of Interdisciplinary Plan of Care Outcome: Partially Met Goal: Knowledge of Enviroment Outcome: Partially Met Problem: Pressure Injury, Risk of Goal: Absence of pressure injury Outcome: Partially Met Problem: Falls, Risk of Goal: Absence of falls Outcome: Partially Met Goal: Absence of physical injury Outcome: Partially Met Problem: Pain Goal: Reduced pain sensation Outcome: Partially Met Goal: Control of acute pain to acceptable level Outcome: Partially Met Goal: Able to cope with pain Outcome: Partially Met Goal: Able to achieve maximum level of physical functioning Outcome: Partially Met Goal: Able to achieve maximum level of psychosocial functioning Outcome: Partially Met Problem: Actual or potential alteration in health Goal: Absence of healthcare acquired conditions Outcome: Partially Met Goal: Knowledge of Interdisciplinary Plan of Care Outcome: Partially Met Goal: Knowledge of Enviroment Outcome: Partially Met Problem: Pressure Injury, Risk of Goal: Absence of pressure injury Outcome: Partially Met Problem: Falls, Risk of Goal: Absence of falls Outcome: Partially Met Goal: Absence of physical injury Outcome: Partially Met Problem: Actual or potential alteration in health Goal: Absence of healthcare acquired conditions Outcome: Partially Met Goal: Knowledge of Interdisciplinary Plan of Care Outcome: Partially Met Goal: Knowledge of Enviroment Outcome: Partially Met Problem: Pressure Injury, Risk of Goal: Absence of pressure injury Outcome: Partially Met Problem: Falls, Risk of Goal: Absence of falls Outcome: Partially Met Goal: Absence of physical injury Outcome: Partially Met Problem: Pain Goal: Reduced pain sensation Outcome: Partially Met Goal: Control of acute pain to acceptable level Outcome: Partially Met Goal: Able to cope with pain Outcome: Partially Met Goal: Able to achieve maximum level of physical functioning Outcome: Partially Met Goal: Able to achieve maximum level of psychosocial functioning Outcome: Partially Met Problem: Actual or potential alteration in health Goal: Absence of healthcare acquired conditions Outcome: Partially Met Goal: Knowledge of Interdisciplinary Plan of Care Outcome: Partially Met Goal: Knowledge of Enviroment Outcome: Partially Met Problem: Pressure Injury, Risk of Goal: Absence of pressure injury Outcome: Partially Met Problem: Falls, Risk of Goal: Absence of falls Outcome: Partially Met Goal: Absence of physical injury Outcome: Partially Met Problem: Pain Goal: Reduced pain sensation Outcome: Partially Met Goal: Control of acute pain to acceptable level Outcome: Partially Met Goal: Able to cope with pain Outcome: Partially Met Goal: Able to achieve maximum level of physical functioning Outcome: Partially Met Goal: Able to achieve maximum level of psychosocial functioning Outcome: Partially Met [facility] Nurse Notes Problem: Actual or potential alteration in health Goal: Absence of healthcare acquired conditions Outcome: Partially Met Goal: Knowledge of Interdisciplinary Plan of Care Outcome: Partially Met Goal: Knowledge of Enviroment Outcome: Partially Met Problem: Pressure Injury, Risk of Goal: Absence of pressure injury Outcome: Partially Met Problem: Falls, Risk of Goal: Absence of falls Outcome: Partially Met Goal: Absence of physical injury Outcome: Partially Met Problem: Pain Goal: Reduced pain sensation Outcome: Partially Met Goal: Control of acute pain to acceptable level Outcome: Partially Met Goal: Able to cope with pain Outcome: Partially Met Goal: Able to achieve maximum level of physical functioning Outcome: Partially Met Goal: Able to achieve maximum level of psychosocial functioning Outcome: Partially Met Plan of care reviewed and interventions continued. Patient plans to return to home at discharge with spouse if possible. Problem: Actual or potential alteration in health Goal: Absence of healthcare acquired conditions Outcome: Partially Met Goal: Knowledge of Interdisciplinary Plan of Care Outcome: Partially Met Goal: Knowledge of Enviroment Outcome: Partially Met Problem: Pressure Injury, Risk of Goal: Absence of pressure injury Outcome: Partially Met Problem: Falls, Risk of Goal: Absence of falls Outcome: Partially Met Goal: Absence of physical injury Outcome: Partially Met Problem: Pain Goal: Reduced pain sensation Outcome: Partially Met Goal: Control of acute pain to acceptable level Outcome: Partially Met Goal: Able to cope with pain Outcome: Partially Met Goal: Able to achieve maximum level of physical functioning Outcome: Partially Met Goal: Able to achieve maximum level of psychosocial functioning Outcome: Partially Met [facility] Nurse Notes Problem: Actual or potential alteration in health Goal: Absence of healthcare acquired conditions Outcome: Partially Met Goal: Knowledge of Interdisciplinary Plan of Care Outcome: Partially Met Goal: Knowledge of Enviroment Outcome: Partially Met Problem: Pressure Injury, Risk of Goal: Absence of pressure injury Outcome: Partially Met Problem: Falls, Risk of Goal: Absence of falls Outcome: Partially Met Goal: Absence of physical injury Outcome: Partially Met Problem: Pain Goal: Reduced pain sensation Outcome: Partially Met Goal: Control of acute pain to acceptable level Outcome: Partially Met Goal: Able to cope with pain Outcome: Partially Met Goal: Able to achieve maximum level of physical functioning Outcome: Partially Met Goal: Able to achieve maximum level of psychosocial functioning Outcome: Partially Met Problem: Actual or potential alteration in health Goal: Absence of healthcare acquired conditions Outcome: Partially Met Goal: Knowledge of Interdisciplinary Plan of Care Outcome: Partially Met Goal: Knowledge of Enviroment Outcome: Partially Met Problem: Pressure Injury, Risk of Goal: Absence of pressure injury Outcome: Partially Met Problem: Falls, Risk of Goal: Absence of falls Outcome: Partially Met Goal: Absence of physical injury Outcome: Partially Met Problem: Pain Goal: Reduced pain sensation Outcome: Partially Met Goal: Control of acute pain to acceptable level Outcome: Partially Met Goal: Able to cope with pain Outcome: Partially Met Goal: Able to achieve maximum level of physical functioning Outcome: Partially Met Goal: Able to achieve maximum level of psychosocial functioning Outcome: Partially Met Problem: Actual or potential alteration in health Goal: Absence of healthcare acquired conditions Outcome: Partially Met Goal: Knowledge of Interdisciplinary Plan of Care Outcome: Partially Met Goal: Knowledge of Enviroment Outcome: Partially Met Problem: Pressure Injury, Risk of Goal: Absence of pressure injury Outcome: Partially Met Problem: Falls, Risk of Goal: Absence of falls Outcome: Partially Met Goal: Absence of physical injury Outcome: Partially Met Problem: Pain Goal: Reduced pain sensation Outcome: Partially Met Goal: Control of acute pain to acceptable level Outcome: Partially Met Goal: Able to cope with pain Outcome: Partially Met Goal: Able to achieve maximum level of physical functioning Outcome: Partially Met Goal: Able to achieve maximum level of psychosocial functioning Outcome: Partially Met [facility] Speech Language Pathology Notes Problem: Cognition - Impaired Goal: [facility] O-Log Description: O-Log - Patient will score a 25 or above on two separate administrations of the O-Log. Outcome: Met Goal: [facility] Memory- memory strategies Description: Memory - Patient will complete memory tasks with the use of memory strategies with 80% accuracy and minimal cues. Outcome: Partially Met Note: Pt completed immediate and short term recall via recall of 12 pictured items w/use of grouping and repetition strategies w/83% acc w/mod I for immediate recall (and benefited from min A semantic cueing to increase acc to 100%) and 100% acc w/mod I following a 5 min delay w/a distractor. Goal: ST- STG Problem Solving- verbal problem solving Description: ST Problem Solving - Patient will complete basic problem solving, reasoning, safety awareness, and attention tasks with 80% accuracy and min cues. Outcome: Partially Met Note: Pt completed problem solving, reasoning, attention and mental math calculation via time related word problems w/64% acc w/mod I and benefited from min A semantic cueing to increase acc to 100%. Pt completed problem solving, reasoning, attention and safety awareness via problem solving missing equipment task w/100% acc w/mod I. Goal: ST- STG Executive Function- sequencing/organization/planning Description: ST Executive Function - Patient will complete basic sequencing, planning, and organizing tasks with 80% accuracy and min cues. Outcome: Partially Met Note: Pt completed sequencing, reasoning, attention and organizing via sequencing 4 step pictured tasks w/75% acc w/mod I and benefited from min A semantic cueing to increase acc to 100%. Pt completed sequencing, reasoning, attention, planning and safety awareness via transfer from WC to toilet and back to WC via santy steady w/min A verbal cueing for safety precautions and sequencing of steps Goal: ST- LTG Executive Function- sequencing/organization/planning Description: ST Executive Function - Patient will demonstrate improved cognitive linguistic abilities to aid in safe return to independence w/ADLs at [place] home Outcome: Partially Met [facility] Physical Therapy Notes Patient continues to make guarded progress to date and is on track to meet or partially meet their established goals. They continue to gain strength and independence in all areas of mobility as evident by performance to date. Limitations/impairments that continue to necessitate the need of skilled physical therapy include: decreased strength of bilateral lower extremities (R greater than R) , deficits of balance/coordination, impaired functional mobility, abnormality of gait, and impaired functional activity tolerance. Family/caregiver training has not been completed to date. To further address the above impairments, the patient will benefit from continued skilled physical therapy with emphasis on therapeutic exercise to address strength and ROM; therapeutic activity to improve dynamic performance of ADLs, transfers, and bed mobility; neuromuscular reeducation to improve coordination, posturing, proprioception, and static/dynamic balance; ambulation/mobility training; stair negotiation; manual therapy to improve joint stiffness and pain relief; as well as modalities as needed for pain relief. Education will also be provided to the patient and family/caregiver(s) on safety, safe use/management of appropriate device, energy conservation, activity modification/pacing, family/caregiver training, and appropriate home exercise program. Continue with PT POC. Problem: Mobility - Impaired Goal: PT- LTG bed mobility Description: PT - Patient will perform bed mobility with supervision and appropriate AE to improve functional mobility and safety. Outcome: Not Met Note: Patient performs rolling, supine to sit, and sit to supine with moderate assist and maximal assist, requiring verbal and tactile cues for safe completion of task and safety. Problem: Mobility - Impaired Goal: PT- LTG sit to stand transfer Description: PT - Patient will perform sit to/from stand transfer with minimal assist, moderate assist, approriate device to improve functional mobility and safety. Outcome: Partially Met Note: Patient performs functional [id number] transfers with use of FWW needing minimal assist and moderate assist. Goal: PT- LTG stand-pivot transfer Description: PT - Patient will perform stand-pivot transfer with minimal assist, moderate assist, approriate device to improve functional mobility and safety. Outcome: Partially Met Note: Patient performs functional stand-pivot transfers with use of FWW needing minimal assist and moderate assist. Goal: PT- LTG car transfer Description: PT - Patient will perform car transfer with minimal assist, moderate assist to improve functional mobility and safety. Outcome: Partially Met Note: Patient performs functional car transfers with use of no device needing moderate assist. Goal: PT- LTG dynamic balance Description: PT - Patient will perform standing dynamic balance activities with device with minimal assist, moderate assist to improve functional mobility and safety. Outcome: Partially Met Note: Patient demonstrates fair standing static and dynamic balance with use of FWW needing minimal assist and moderate assist for stability and safety. Goal: PT- LTG ambulation Description: PT - Patient will ambulate at least 75+ feet with device with minimal assist, moderate assist to improve functional mobility and safety. Outcome: Partially Met Note: Patient able to ambulate 15-18 feet with use of FWW needing moderate assist and second person close w/c follow due to balance deficits, endurance limitations, impairments in gait, and coordination deficits. Goal: PT- LTG wheelchair management Description: PT - Patient will propel and manage wheelchair at least 100+ feet with supervision to improve functional mobility and safety. Outcome: Partially Met Note: Patient is able to propel themself in wheelchair 55 feet needing stand-by assist for safety and guidance. Goal: PT- LTG mobility other Description: PT- Patient and/or caregiver(s) will verbalize and demonstrate adequate understanding of appropriate HEP to improve functional strength and perform program with IND. Outcome: Partially Met Note: Progressing toward goal with seated HEP provided. Problem: Mobility - Impaired Goal: PT- LTG stair climbing Description: PT - Patient will ascend and descend 3+ stairs with non-reciprocal technique with 2 rails with minimal assist, moderate assist, 2-person assist to improve functional mobility and safety. Outcome: Not Addressed Note: Unable to safely attempt to date secondary to safety concerns. Plan to progress as able. [facility] Occupational Therapy Notes Patient has displayed improvements in LB ADL performance and UB dressing. He does continue to require considerable physical assistance to complete functional bathroom transfers and remains inconsistent with his tolerance of sustained standing activities. Patient will continue to benefit from participation in intensive, comprehensive therapy approach in an [facility] setting to promote further functional gains. Currently, patient benefiting from mod assist for brief sustained static standing activities lasting up to 1 minute and min assist for static sitting activities due to periods of retropulsive balance. Problem: Self-care Deficit Goal: OT- LTG UB dressing Description: OT - Patient will complete UB dressing with set-up assist in order to improve self care function. Outcome: Not Met Goal: OT- LTG LB dressing Description: OT - Patient will complete LB dressing with contact guard assist / footwear management with stand by assist through use of AE with adherence to back precautions in order to improve self care function. Outcome: Not Met Goal: OT- LTG LB bathing Description: OT - Patient will complete UB/LB bathing with stand by assist from seated position with use of AE in order to improve self care function. Outcome: Not Met Goal: OT- LTG toileting Description: OT - Patient will complete toileting with minimal assist in order to improve self care function. Outcome: Not Met Goal: OT- LTG precautions Description: OT - Patient will demonstrate back precaution management with independence in order to improve safe and appropriate ADL/IADL management. Outcome: Not Met Goal: OT- LTG Self-Care Other Description: OT- Patient will participate in family/caregiver training as needed to enhance a safe return to home environment by time of discharge, including education on ADLs, functional transfers, precautions, fall prevention, HEP, and any adaptive equipment needs. Outcome: Not Met Problem: Mobility - Impaired Goal: OT- STG toilet transfer Description: OT - Patient will complete toilet transfer with maximum assist (x1) with use of AD in preparation for ADL's. Outcome: Not Met Goal: OT- LTG toilet transfer Description: OT - Patient will complete toilet transfer with contact guard assist and use of AD in preparation for ADL's. Outcome: Not Met Goal: OT- LTG navigation Description: OT - Patient will navigate environment within short household distances with minimal assist and use of AD during simple item retrieval tasks in anticipation for safe return to home/community. Outcome: Not Met Problem: Impaired Neurologic Function Goal: OT- LTG dynamic sitting balance Description: OT - Patient will complete dynamic sitting balance activity with modified independence during extended reaching tasks outside [facility] while on unsupported surfaces in preparation for ADL's. Outcome: Not Met Goal: OT- LTG static standing balance Description: OT - Patient will complete static standing balance activity with contact guard assist during unilateral task engagement at tabletop level for durations >5 mins with no need for blocking to BLEs in preparation for ADL's. Outcome: Not Met Problem: Self-care Deficit Goal: OT- LTG grooming Description: OT - Patient will complete grooming tasks from w/c level with modified independence and/or with contact guard assist in standing in order to improve self care function. Outcome: Partially Met Note: Benefiting from SBA to complete grooming task from seated position. Problem: Impaired Strength Goal: OT- LTG Strength Other Description: OT- Patient will tolerate 15 mins of BUE strengthening exercises (WITHIN PRECAUTIONS) in order to improve necessary strength for functional mobility and self care tasks with patient able to complete exercises with no more than min cues by time of discharge. Outcome: Partially Met Problem: Impaired Neurologic Function Goal: OT- STG static standing balance Description: OT - Patient will complete static standing balance activity with moderate assist during unilateral engagement in tabletop tasks for durations up to 2-3 mins with no more than min blocking required to BLEs in preparation for ADL's. Outcome: Partially Met Note: Able to tolerate sustained static sitting for 1-3 minutes with min assist for balance. Problem: Self-care Deficit Goal: OT- STG UB dressing Description: OT - Patient will complete UB dressing with minimal assist through provided cues in order to improve self care function. Outcome: Completed Note: Benefiting from min assist to complete UB dressing. Goal: OT- STG LB dressing Description: OT - Patient will complete LB dressing with maximum assist (x1) in order to improve self care function. Outcome: Completed Note: Benefiting from mod assist to complete LB dressing with a handkerchief sample clerk and sock aid. Problem: Impaired Neurologic Function Goal: OT- STG Neuro Function Other Description: OT- Patient will participate in formal assessment of bilateral gross/ fine motor coordination and gross grasp/pinch strengths to assist with treatment planning with further goals to follow as needed. Outcome: Completed Problem: Actual or potential alteration in health Goal: Absence of healthcare acquired conditions Outcome: Partially Met Goal: Knowledge of Interdisciplinary Plan of Care Outcome: Partially Met Goal: Knowledge of Enviroment Outcome: Partially Met Problem: Pressure Injury, Risk of Goal: Absence of pressure injury Outcome: Partially Met Problem: Falls, Risk of Goal: Absence of falls Outcome: Partially Met Goal: Absence of physical injury Outcome: Partially Met Problem: Pain Goal: Reduced pain sensation Outcome: Partially Met Goal: Control of acute pain to acceptable level Outcome: Partially Met Goal: Able to cope with pain Outcome: Partially Met Goal: Able to achieve maximum level of physical functioning Outcome: Partially Met Goal: Able to achieve maximum level of psychosocial functioning Outcome: Partially Met [facility] Nurse Notes Problem: Actual or potential alteration in health Goal: Absence of healthcare acquired conditions Outcome: Partially Met Goal: Knowledge of Interdisciplinary Plan of Care Outcome: Partially Met Goal: Knowledge of Enviroment Outcome: Partially Met Problem: Pressure Injury, Risk of Goal: Absence of pressure injury Outcome: Partially Met Problem: Falls, Risk of Goal: Absence of falls Outcome: Partially Met Goal: Absence of physical injury Outcome: Partially Met Problem: Pain Goal: Reduced pain sensation Outcome: Partially Met Goal: Control of acute pain to acceptable level Outcome: Partially Met Goal: Able to cope with pain Outcome: Partially Met Goal: Able to achieve maximum level of physical functioning Outcome: Partially Met Goal: Able to achieve maximum level of psychosocial functioning Outcome: Partially Met [facility] Nurse Notes Problem: Falls, Risk of Goal: Absence of falls Outcome: Met Note: No falls this shift continue to use bed alarm or personal alarm for fall prevention will continue to monitor. Goal: Absence of physical injury Outcome: Met Problem: Actual or potential alteration in health Goal: Absence of healthcare acquired conditions Outcome: Partially Met Goal: Knowledge of Interdisciplinary Plan of Care Outcome: Partially Met Goal: Knowledge of Enviroment Outcome: Partially Met Problem: Pressure Injury, Risk of Goal: Absence of pressure injury Outcome: Partially Met Problem: Pain Goal: Reduced pain sensation Outcome: Partially Met Goal: Control of acute pain to acceptable level Outcome: Partially Met Goal: Able to cope with pain Outcome: Partially Met Goal: Able to achieve maximum level of physical functioning Outcome: Partially Met Goal: Able to achieve maximum level of psychosocial functioning Outcome: Partially Met Problem: Actual or potential alteration in health Goal: Absence of healthcare acquired conditions Outcome: Partially Met Goal: Knowledge of Interdisciplinary Plan of Care Outcome: Partially Met Goal: Knowledge of Enviroment Outcome: Partially Met Talked to pt and . Good appetite prior to going into the hospital, but lately not much of an appetite. Disliked the food at [facility] (acute care) and doesn't really like the food here in [facility], tired of hospital food in general. Disliked the Glucerna at [facility]. Consuming 50% or less of trays. brought in soup and breadstick from [employer] for lunch, took some of the soup, 50% breadstick. Dislikes the [employer] Mighty Shakes, the Boost Glucose Control is okay, just wants at dinner- will save and take with pills at HS. Told diet office to send cup of ice with every meal so can pour diet pop over ice. RDN observed some loss at temples. Rapid Response Note Notified of increased DI score of 46 per primary nurse. States no need for rapid team intervention at this time. Tita Land RN [facility] Nurse Notes Problem: Actual or potential alteration in health Goal: Absence of healthcare acquired conditions Outcome: Partially Met Goal: Knowledge of Interdisciplinary Plan of Care Outcome: Partially Met Goal: Knowledge of Enviroment Outcome: Partially Met Problem: Pressure Injury, Risk of Goal: Absence of pressure injury Outcome: Partially Met Problem: Falls, Risk of Goal: Absence of falls Outcome: Partially Met Goal: Absence of physical injury Outcome: Partially Met Problem: Pain Goal: Reduced pain sensation Outcome: Partially Met Goal: Control of acute pain to acceptable level Outcome: Partially Met Goal: Able to cope with pain Outcome: Partially Met Goal: Able to achieve maximum level of physical functioning Outcome: Partially Met Goal: Able to achieve maximum level of psychosocial functioning Outcome: Partially Met [facility] Physical Therapy Notes Problem: Mobility - Impaired Goal: PT- LTG bed mobility Description: PT - Patient will perform bed mobility with supervision and appropriate AE to improve functional mobility and safety. Outcome: Not Addressed Goal: PT- LTG sit to stand transfer Description: PT - Patient will perform sit to/from stand transfer with minimal assist, moderate assist, approriate device to improve functional mobility and safety. Outcome: Not Addressed Goal: PT- LTG stand-pivot transfer Description: PT - Patient will perform stand-pivot transfer with minimal assist, moderate assist, approriate device to improve functional mobility and safety. Outcome: Not Addressed Goal: PT- LTG car transfer Description: PT - Patient will perform car transfer with minimal assist, moderate assist to improve functional mobility and safety. Outcome: Not Addressed Goal: PT- LTG dynamic balance Description: PT - Patient will perform standing dynamic balance activities with device with minimal assist, moderate assist to improve functional mobility and safety. Outcome: Not Addressed Goal: PT- LTG ambulation Description: PT - Patient will ambulate at least 75+ feet with device with minimal assist, moderate assist to improve functional mobility and safety. Outcome: Not Addressed Goal: PT- LTG stair climbing Description: PT - Patient will ascend and descend 3+ stairs with non-reciprocal technique with 2 rails with minimal assist, moderate assist, 2-person assist to improve functional mobility and safety. Outcome: Not Addressed Goal: PT- LTG wheelchair management Description: PT - Patient will propel and manage wheelchair at least 100+ feet with supervision to improve functional mobility and safety. Outcome: Not Addressed Goal: PT- LTG mobility other Description: PT- Patient and/or caregiver(s) will verbalize and demonstrate adequate understanding of appropriate HEP to improve functional strength and perform program with IND. Outcome: Not Addressed [facility] Occupational Therapy Notes Problem: Self-care Deficit Goal: OT- STG UB dressing Description: OT - Patient will complete UB dressing with minimal assist through provided cues in order to improve self care function. Outcome: Not Addressed Goal: OT- STG LB dressing Description: OT - Patient will complete LB dressing with maximum assist (x1) in order to improve self care function. Outcome: Not Addressed Goal: OT- LTG grooming Description: OT - Patient will complete grooming tasks from w/c level with modified independence and/or with contact guard assist in standing in order to improve self care function. Outcome: Not Addressed Goal: OT- LTG UB dressing Description: OT - Patient will complete UB dressing with set-up assist in order to improve self care function. Outcome: Not Addressed Goal: OT- LTG LB dressing Description: OT - Patient will complete LB dressing with contact guard assist / footwear management with stand by assist through use of AE with adherence to back precautions in order to improve self care function. Outcome: Not Addressed Goal: OT- LTG LB bathing Description: OT - Patient will complete UB/LB bathing with stand by assist from seated position with use of AE in order to improve self care function. Outcome: Not Addressed Goal: OT- LTG toileting Description: OT - Patient will complete toileting with minimal assist in order to improve self care function. Outcome: Not Addressed Goal: OT- LTG precautions Description: OT - Patient will demonstrate back precaution management with independence in order to improve safe and appropriate ADL/IADL management. Outcome: Not Addressed Goal: OT- LTG Self-Care Other Description: OT- Patient will participate in family/caregiver training as needed to enhance a safe return to home environment by time of discharge, including education on ADLs, functional transfers, precautions, fall prevention, HEP, and any adaptive equipment needs. Outcome: Not Addressed Problem: Mobility - Impaired Goal: OT- STG toilet transfer Description: OT - Patient will complete toilet transfer with maximum assist (x1) with use of AD in preparation for ADL's. Outcome: Not Addressed Goal: OT- LTG toilet transfer Description: OT - Patient will complete toilet transfer with contact guard assist and use of AD in preparation for ADL's. Outcome: Not Addressed Goal: OT- LTG navigation Description: OT - Patient will navigate environment within short household distances with minimal assist and use of AD during simple item retrieval tasks in anticipation for safe return to home/community. Outcome: Not Addressed Problem: Impaired Strength Goal: OT- LTG Strength Other Description: OT- Patient will tolerate 15 mins of BUE strengthening exercises (WITHIN PRECAUTIONS) in order to improve necessary strength for functional mobility and self care tasks with patient able to complete exercises with no more than min cues by time of discharge. Outcome: Not Addressed Problem: Impaired Neurologic Function Goal: OT- STG static standing balance Description: OT - Patient will complete static standing balance activity with moderate assist during unilateral engagement in tabletop tasks for durations up to 2-3 mins with no more than min blocking required to BLEs in preparation for ADL's. Outcome: Not Addressed Goal: OT- STG Neuro Function Other Description: OT- Patient will participate in formal assessment of bilateral gross/ fine motor coordination and gross grasp/pinch strengths to assist with treatment planning with further goals to follow as needed. Outcome: Not Addressed Goal: OT- LTG dynamic sitting balance Description: OT - Patient will complete dynamic sitting balance activity with modified independence during extended reaching tasks outside [facility] while on unsupported surfaces in preparation for ADL's. Outcome: Not Addressed Goal: OT- LTG static standing balance Description: OT - Patient will complete static standing balance activity with contact guard assist during unilateral task engagement at tabletop level for durations >5 mins with no need for blocking to BLEs in preparation for ADL's. Outcome: Not Addressed [facility] Speech Language Pathology Notes Problem: Cognition - Impaired Goal: ST- STG O-Log Description: ST O-Log - Patient will score a 25 or above on two separate administrations of the O-Log. Outcome: Not Addressed Goal: ST- STG Memory- memory strategies Description: ST Memory - Patient will complete memory tasks with the use of memory strategies with 80% accuracy and minimal cues. Outcome: Not Addressed Goal: ST- STG Problem Solving- verbal problem solving Description: ST Problem Solving - Patient will complete basic problem solving, reasoning, safety awareness, and attention tasks with 80% accuracy and min cues. Outcome: Not Addressed Goal: ST- STG Executive Function- sequencing/organization/planning Description: ST Executive Function - Patient will complete basic sequencing, planning, and organizing tasks with 80% accuracy and min cues. Outcome: Not Addressed Goal: ST- LTG Executive Function- sequencing/organization/planning Description: ST Executive Function - Patient will demonstrate improved cognitive linguistic abilities to aid in safe return to independence w/ADLs at [place] home Outcome: Not Addressed [facility] Nurse Notes Problem: Falls, Risk of Goal: Absence of falls Outcome: Met Note: No falls this shift continue to use bed alarm or personal alarm. Will continue to monitor. Goal: Absence of physical injury Outcome: Met Problem: Actual or potential alteration in health Goal: Absence of healthcare acquired conditions Outcome: Partially Met Goal: Knowledge of Interdisciplinary Plan of Care Outcome: Partially Met Goal: Knowledge of Enviroment Outcome: Partially Met Problem: Pressure Injury, Risk of Goal: Absence of pressure injury Outcome: Partially Met Pt's , Idalia Lemons, called by this RN. was asked if she would be able to bring in pt's home CPAP and list of home medication. confirmed that she would be able to bring in both this morning. POC continued. -Shamar SOMMERS POC initiated [facility] NOTE Contacted by staff regarding patient not wanting to wear CPAP Action taken: Okay to use oxygen 2 L overnight I did not personally evaluate the patient. Treatment is based on review of chart and discussion with nursing staff and treatment team as necessary. [facility] NOTE Contacted by staff regarding RAFAEL and no cpap ordered. Has hx per chart review. No recent Nasal surgeries noted Action taken: Cpap ordered I did not personally evaluate the patient. Treatment is based on review of chart and discussion with nursing staff and treatment team as necessary. documented in this encounter [facility] 04-07-2025 Note [facility] -- MH IRF Gracie Lemons : 1950 Admitted: 03/23/2025 Discharge Date: 04/07/25 PCP Handoff Recommended Outpatient Testing none Results Pending At Discharge none Clinical Summary Gracie Lemons is a 75 y.o. male patient of Armando Kohli MD with history of anemia, BPH, CAD, DM, GERD, HLD, HTN, RAFAEL, and CVA presented to IRF on 03/23/2025 with debility s/p T7-8 discectomy. Debility Impaired Mobility and ADLs Comprehensive Rehab with PT/OT/ST PMR following T7-T8 Discectomy Right Side Weakness Parkinsonian Features T7-8 Discectomy on 03/11 at [facility] with neurosurgery Patient with subsequent Right side weakness Neurology at [facility] believes it to possibly be lumbosacral plexopathy Patient with Parkinsonian features including masked facies, hypophonic speech, cogwheeling rigidity of axial and appendicular muscles, and bradykinesia A referral has been sent to [facility] Continue Sinemet , Neurontin Pressure Injury Coccyx, POA Pressure Injury gluteal fold, POA Consult Wound Care Fibrotic Lung Disease Continue Mucinex History of CVA CAD HTN HLD Continue atorvastatin, Plavix, Zetia, lisinopril, and metoprolol Type 2 Diabetes HgbA1C 7.7 in June 2024 Diabetic Diet Sliding Scale Insulin Recommend outpatient follow-up Hypothyroidism TSH-3.92 Continue levothyroxine Cognitive Disorder Continue donepezil GERD Continue Protonix Vitamin D Deficiency Continue Supplementation RAFAEL CPAP ordered, refused overnight 2L/NC while sleeping if refusing CPAP Chronic Anemia Hgb 13.0 Baseline Hgb 10-13 Continue Ferrous Sulfate Overweight BMI 29.09 Encourage Diet and Lifestyle modifications Discharge Medications Discharge Medications New Medications Details carbidopa-levodopa 25-100 mg per tablet Commonly known as: SINEMET Take 1 (one) tablet by mouth 3 (three) times a day . Quantity: 90 tablet Physician(s) Follow Up: Armando Kohli MD [address] [facility] [address] [facility] [id number] Go on 04/14/2025 Appointment to be seen on Apr 14 at 2:20 pm Maxine Mock, YVETTE [address], [address] [facility] [address] Go on 04/21/2025 Per [facility] Discharge AVS - Established Patient Visit with PAN Royal Saturday 11:00 AM (Arrive by 10:30 AM) Arrive at: Arrive to 1st Floor Registration Marjan Rasmussen MD [address] [facility] [address] [facility] [phone] Go on 04/15/2025 Phone - ([phone]) Appointment to be seen on 04/15/25 at 0930 Tee Oliveira MD [address] [place] [address] [place] [id number] Go on 04/12/2025 Appointment to be seen on Apr 12 at 10:30 , please arrive at 10:15 am [facility] [address] [facility] [address] Go on 04/19/2025 2:15 PM A referral was made to the wound care clinic for you for : Unstageable pressure ulcer of buttock [facility] Located in: [facility] Address: [address] [place] [address] Fax- [phone] Follow up A referral has been made for you for out patient therapies OT & PT They will be contacting you to arrange an appointment time. If you are not contacted please call the number above to make an appointment. Condition at Discharge: Good Disposition: Home I reviewed discharge recommendations with the patient in person. Patient instructions, including activity, were given to the patient/family at discharge. On day of discharge I saw Gracie Lemons and spent: > 30 minutes on discharge. Completed by: Gigi Marrero CNP on 04/07/25, 12:41 PM AUTHENTICATED BY GIGI MARRERO, ON 04/07/2025 13:04:15 [facility] 04-07-2025 Hospital course Narrative [facility] -- NABOR Indy Lemonsy : 1950 Admitted: 03/23/2025 Discharge Date: 04/07/25 PCP Handoff Recommended Outpatient Testing none Results Pending At Discharge none Clinical Summary Gracie Lemons is a 75 y.o. male patient of Armando Kohli MD with history of anemia, BPH, CAD, DM, GERD, HLD, HTN, RAFAEL, and CVA presented to IRF on 03/23/2025 with debility s/p T7-8 discectomy. Debility Impaired Mobility and ADLs Comprehensive Rehab with PT/OT/ST PMR following T7-T8 Discectomy Right Side Weakness Parkinsonian Features T7-8 Discectomy on 03/11 at [facility] with neurosurgery Patient with subsequent Right side weakness Neurology at [facility] believes it to possibly be lumbosacral plexopathy Patient with Parkinsonian features including masked facies, hypophonic speech, cogwheeling rigidity of axial and appendicular muscles, and bradykinesia A referral has been sent to [facility] Continue Sinemet , Neurontin Pressure Injury Coccyx, POA Pressure Injury gluteal fold, POA Consult Wound Care Fibrotic Lung Disease Continue Mucinex History of CVA CAD HTN HLD Continue atorvastatin, Plavix, Zetia, lisinopril, and metoprolol Type 2 Diabetes HgbA1C 7.7 in June 2024 Diabetic Diet Sliding Scale Insulin Recommend outpatient follow-up Hypothyroidism TSH-3.92 Continue levothyroxine Cognitive Disorder Continue donepezil GERD Continue Protonix Vitamin D Deficiency Continue Supplementation RAFAEL CPAP ordered, refused overnight 2L/NC while sleeping if refusing CPAP Chronic Anemia Hgb 13.0 Baseline Hgb 10-13 Continue Ferrous Sulfate Overweight BMI 29.09 Encourage Diet and Lifestyle modifications Discharge Medications Discharge Medications New Medications Details carbidopa-levodopa 25-100 mg per tablet Commonly known as: SINEMET Take 1 (one) tablet by mouth 3 (three) times a day . Quantity: 90 tablet Physician(s) Follow Up: Armando Kohli MD [address] [facility] [address] [facility] [id number] Go on 04/14/2025 Appointment to be seen on Apr 14 at 2:20 pm Maxine Mock CNP [address], [address] [facility] [address] Go on 04/21/2025 Per [facility] Discharge AVS - Established Patient Visit with PAN Royal Saturday 11:00 AM (Arrive by 10:30 AM) Arrive at: Arrive to 1st Floor Registration Marjan Rasmussen MD [address] [facility] [facility] [address] [facility] [address] Go on 04/15/2025 Phone - ([phone]) Appointment to be seen on 04/15/25 at 0930 Tee Oliveira MD [address] [place] [address] [place] [id number] Go on 04/12/2025 Appointment to be seen on Apr 12 at 10:30 , please arrive at 10:15 am [facility] [address] [facility] [phone] Go on 04/19/2025 2:15 PM A referral was made to the wound care clinic for you for : Unstageable [facility] ulcer [facility] Loc[facility] in: [facility] Address: [address] [place] [address] Fax- [phone] Follow up A referral has been made for you for out patient therapies OT & PT They will be contacting you to arrange an appointment time. If you are not contacted please call the number above to make an appointment. Condition at Discharge: Good Disposition: Home I reviewed discharge recommendations with the patient in person. Patient instructions, including activity, were given to the patient/family at discharge. On day of discharge I saw Gracie Lemons and spent: > 30 minutes on discharge. Completed by: Gigi Marrero CNP on 04/07/25, 12:41 PM documented in this encounter [facility] 04-07-2025 Plan of care note Problem: Actual or potential alteration in health Goal: Absence of healthcare acquired conditions Outcome: Partially Met Goal: Knowledge of Interdisciplinary Plan of Care Outcome: Partially Met Goal: Knowledge of Enviroment Outcome: Partially Met Problem: Pressure Injury, Risk of Goal: Absence of pressure injury Outcome: Partially Met Problem: Falls, Risk of Goal: Absence of falls Outcome: Partially Met Goal: Absence of physical injury Outcome: Partially Met Problem: Pain Goal: Reduced pain sensation Outcome: Partially Met Goal: Control of acute pain to acceptable level Outcome: Partially Met Goal: Able to cope with pain Outcome: Partially Met Goal: Able to achieve maximum level of physical functioning Outcome: Partially Met Goal: Able to achieve maximum level of psychosocial functioning Outcome: Partially Met [facility] 04-07-2025 History of Present illness Narrative Date: 04/07/2025 Time: 8:29 AM Patient Name: Gracie Lemons Date of : 1950 Discharge Disposition Update: VM left for OP therapies at [facility] , requested call back if they did not receive faxed referral for pt Asked to contact pt/ to make Op therapy appt. My call back number given D/C Disposition: Home Final D/C Agency/Destination: (OP therapies at [facility]) Plan A: Home Plan A : Post Acute Patient Choice 1: (OP rehab - [facility]) Plan B: [facility] Facility Transportation: Transportation Type: Auto () Options Reviewed: Possible expense, Explained services/benefits Discharge Disposition: Community/Outpatient Referral: Outpatient rehab (referral made to [place] OP therapies) Same As Recommended : yes HME: Wheeled walker, Wheel chair HME Agency: [employer] (pt obtaining some items) Reason for Choice: Patient/Family preference Regulatory Documentation: Regulatory Documentation: Medicare IM Regulatory Documentation Status: Signed (orginal was signed) Signed: Spouse Patient Paper Copy: Patient received paper copy Plan for pt to dc to home today with : pt . Pt /caregiver were encouraged to attend therapy sessions during admit on IPR, as well as be involved in any needed teaching from nursing staff for pt discharge to home. Caregiver has attended therapy sessions with pt for family training/teaching prior to discharge. Discharge recommendations for continued skilled services/ therapies & home going HME (if needed) have been discussed with pt /caregiver. Referrals have been made as discussed with pt/caregiver . Recommended HME will be provided at ma ( or delivered if applicable ). [employer] has been contacted related to dc for today & orders placed for home going HME , waiting for confirmation pt will receive recommended items at discharge .( Rehab staff aware) Follow up appointments ( including referral if applicable) have been scheduled for pt. No other needs identified, case will close at dc. Inpatient Rehab Physical Therapy - Discharge Summary PT Time Calculation Start Time: 1303 Stop Time: 1433 Time Calculation (min): 90 min PT Individual Therapy Min: 90 Discharge Destination: home with spouse Date of Discharge: 04/07/25 Skilled Therapy Needs After Discharge Are Skilled Therapy Services Needed After Discharge: Yes Intensity of Skilled Therapy: 2-3 days per week DME Recommendation: Wheeled Walker, Wheelchair, Elevating legrests on wheelchair, Removable armrests on wheelchair, Bed Rail (wheelchair for longer distances) DME Rationale: Patient's condition prevents him/her from accomplishing ADL without recommended equipment, Patient's condition creates an increased risk of safety hazard without recommended equipment, Unreasonable time frame to complete ADL without recommended equipment, Patient will require increased level of care without recommended equipment, Wheelchair - mobility limitation cannot be safely resolved with ambulatory aide Fair, For goals Goals: Problem: Mobility - Impaired Goal: PT- LTG bed mobility Description: PT - Patient will perform bed mobility with supervision and appropriate AE to improve functional mobility and safety. Outcome: Met Note: Pt is performing with WA with HR and some safety concerns Goal: PT- LTG sit to stand transfer Description: PT - Patient will perform sit to/from stand transfer with minimal assist, moderate assist, approriate device to improve functional mobility and safety. Outcome: Met Note: Pt is performing with CGA with RW and cues for safety Goal: PT- LTG stand-pivot transfer Description: PT - Patient will perform stand-pivot transfer with minimal assist, moderate assist, approriate device to improve functional mobility and safety. Outcome: Met Note: Pt is performing with CGA with RW and cues for safety Goal: PT- LTG car transfer Description: PT - Patient will perform car transfer with minimal assist, moderate assist to improve functional mobility and safety. Outcome: Met Note: Pt is performing with CGA with RW and cues for safety Goal: PT- LTG dynamic balance Description: PT - Patient will perform standing dynamic balance activities with device with minimal assist, moderate assist to improve functional mobility and safety. Outcome: Met Note: Pt is needing CGA/min assist with at least 1 UE support on RW and cues to keep bilat knees in extension Goal: PT- LTG ambulation Description: PT - Patient will ambulate at least 75+ feet with device with minimal assist, moderate assist to improve functional mobility and safety. Outcome: Met Note: Pt is ambulating up to 157 ft with RW and CGA with cues for technique Goal: PT- LTG stair climbing Description: PT - Patient will ascend and descend 3+ stairs with non-reciprocal technique with 2 rails with minimal assist, moderate assist, 2-person assist to improve functional mobility and safety. Outcome: Met Note: Pt is performing curb step with RW and min assist and cues for safe technique. Goal: PT- LTG wheelchair management Description: PT - Patient will propel and manage wheelchair at least 100+ feet with supervision to improve functional mobility and safety. Outcome: Met Note: Pt is propelling w/c 150 ft with supervision on even surfaces with mainly UEs Goal: PT- LTG mobility other Description: PT- Patient and/or caregiver(s) will verbalize and demonstrate adequate understanding of appropriate HEP to improve functional strength and perform program with IND. Outcome: Met Note: Pt and his are able to complete pt's LE HEP IND for home going. Pt progressed well towards all goals and met them with increasing independence in all areas of mobility. Pt will need to use RW with at least CGA as main mode of mobility. PT is also recommending pt to use w/c for longer distances and as needed due to pt's knees buckling with fatigue even at shorter distances walked. Pt's caregiver has been in for training for transfers, gait and stairs, and was able to return demo independently. Recommend 24 hour assist available and continued PT to continue to work on strengthening and balance for home and community mobility. Outcome Measures , Idalia, present for session and performed hands on for transfers, gait and stairs. Therapy Precautions Orthotic Devices: No Weight Bearing Status: WFL General Rehab Precautions: Fall Risk, Back Balance Picking Up Object: Assistance Needed: Verbal cues, Incidental touching (1 UE support and use of handkerchief sample clerk) Balance Treatment Sitting Balance - Static: Supervision or Touching Assistance (SBA) Sitting Balance - Dynamic: Supervision or Touching Assistance (SBA) Standing Balance - Static: Supervision or Touching Assistance (CGA) Book Cleaner - Standing Static: wheeled walker Standing Balance - Dynamic: Supervision or Touching Assistance, Partial/Moderate Assistance (CGA/min) Book Cleaner - Standing Dynamic: wheeled walker Skilled Intervention Provided: verbal cues, tactile cues, neuromuscular re-education For: LE management, LE positioning, attention to affected UE/LE, balance recovery Resulting in: improved activity tolerance, improved balance reactions, improved functional independence Skilled Intervention: walked sideways between cones with RW and min assist with cues. he then worked on walking around cones with RW and min assist with cues to stay in walker Bed Mobility Roll Left and Right: Assistance Needed: Independent, Adaptive equipment (some safety concerns with back precautions) Lying to Sitting: Assistance Needed: Independent, Adaptive equipment (some safety concerns with back precautions) Sit to Lying: Assistance Needed: Independent, Adaptive equipment (some safety concerns with back precautions) Book Cleaner: bedrails Skilled Intervention Provided: monitoring patient response with activity For: LE management, LE positioning, attention to task, activity tolerance Resulting in: good carryover of cues, improved activity tolerance, improved caregiver/family awareness, improved caregiver/family safety, improved performance Skilled Intervention: Pt has bed rail/loop for home going to help with mobility. Transfers Sit to Stand: Assistance Needed: Adaptive equipment, Verbal cues, Incidental touching [id number]: Assistance Needed: Adaptive equipment, Verbal cues, Incidental touching Book Cleaner: wheeled walker Skilled Intervention Provided: verbal cues, tactile cues, monitoring patient response with activity, patient education For: LE management, LE positioning, controlled descent Resulting in: improved caregiver/family awareness, improved activity tolerance, improved functional independence Skilled Intervention: Pt is needing some safety cues for hand placement and to use walker all of the way back to his chair when sitting. able to assist and cue pt well also Toilet Transfer: Assistance Needed: Adaptive equipment, Verbal cues, Incidental touching Car Transfer: Assistance Needed: Adaptive equipment, Verbal cues, Incidental touching Book Cleaner: wheeled walker Skilled Intervention Provided: verbal cues, tactile cues, graded task by elevating height of sitting surface For: LE management, LE positioning, attention to task, controlled descent Resulting in: improved activity tolerance, improved caregiver/family awareness Skilled Intervention: Pt to higher car setting to simulate home going. PT went over use of trash bag to help pt slide as needed. Gait/Locomotion Walk 10 Feet: Assistance Needed: Adaptive equipment, Verbal cues, Incidental touching Walk 50 Feet 2 Turns: Assistance Needed: Adaptive equipment, Verbal cues, Incidental touching Walk 150 Feet: Assistance Needed: Adaptive equipment, Verbal cues, Incidental touching Walk 10 Feet Uneven: Assistance Needed: Adaptive equipment, Verbal cues, Incidental touching Assistive Device: wheeled walker Distance: 157 Feet (on even surfaces with 2 turns, 10 ft over carpeting) Rest Breaks: Yes Rest Break Position: seated Rest Break Duration: 3 minutes Pattern: step through, step to, R decreased step length, L decreased step length, over reliance on upper extremities, forward flexed, shuffle, decreased zenon (steps per minute) Gait Loss(es) of Balance: intermittent Skilled Intervention Provided: verbal cues, tactile cues, monitoring patient response with activity For: activity tolerance, attention to task, device management and safe use of device, gait sequence Resulting in: improved activity tolerance, improved functional independence Curb Step 1 Step (Curb): Assistance Needed: Adaptive equipment, Incidental touching, Physical assistance Physical Assistance Level: 25% or less (min) Assistive Device: wheeled walker Curbs/Ramps Technique: forwards, wheeled walker Skilled Intervention Provided: verbal cues, tactile cues, monitoring patient response with activity For: activity tolerance, attention to task, device management and safe use of device Resulting in: good carryover of cues, improved activity tolerance, improved functional independence Skilled Intervention: Pt performed 4 inch curb step with RW and cues for technique and leg placement Stair Management 4 Steps: Assistance Needed: Adaptive equipment, Physical assistance Physical Assistance Level: 25% or less (min) 12 Steps: Reason if not Attempted: Safety concerns Assistive Device: BUE Stair Management Technique: two rails, step-to pattern Number of Stairs: 4 (6 inch) Skilled Intervention Provided: verbal cues, monitoring patient response with activity, tactile cues For: activity tolerance, attention to task, device management and safe use of device Resulting in: good carryover of cues, improved activity tolerance, improved functional independence Skilled intervention: cues for technique. Wheelchair Mobility Wheel 50 Feet 2 Turns: Type of Wheelchair/Scooter: Manual Assistance Needed: Independent Wheel 150 Feet: Type of Wheelchair/Scooter: Manual Assistance Needed: Independent Wheelchair distance: 150 Feet (on even surfaces with 2 turns) Wheelchair Environment/Terrain: closed environment, minimal to no distractions, open/community environment, multiple distractions Skilled Intervention Provided: monitoring patient response with activity For: activity tolerance Resulting in: good carryover of cues Skilled Intervention: PT went over with about purchasing w/c for home going due to pt's insurance won't cover and for his safety when his knees buckle, pt would benefit from one. Spouse has one on order now. Exercise Seated Exercises: pt was previsouly given seated LE that he can perform with IND with Skilled Intervention Provided: monitoring patient response with exercise For: achieving full ROM as tolerated, frequency of exercise(s), attention to task Resulting in: efficient movement, improved functional strength/ROM, improved independence with HEP Skilled Intervention: Pt on recumbent bike for 13 minutes with bilat UEs and LEs with good steady pace and no restbreaks on level 1. Home Living Obtained Home Living and PLOF info from: Patient, Patient s family member Unable to obtain Home Living and PLOF info on initial eval: Patient is a questionable historian Lives With: Spouse (Idalia) Type of Home: House Home Layout: One level (laundry on main floor. Does not need to go to basement.) Rails on inside stairs: 2 rails Number of stairs inside home: 16 Steps to enter home: Yes Rails to enter home: 1 rail, L rail going up (+ bilateral grab bars on doorframe) Number of stairs to enter home: 3 Bathroom Shower/Tub: Walk-in shower, Main level (3 threshold to enter) Bathroom Toilet: Raised, Main level Bathroom Equipment: Grab bars in shower, Hand-held showerhead, Shower chair, Bedside commode, Toilet seat capacity analyst (toilet safety frame) Mobility Equipment: Cane, Wheeled walker, Rollator (Spare bed has adjustable features (their specific bed is not adjustable)) ADL Equipment: (none) Additional Objective Details - Home Living: Pt was standing to shower prior to admit. All information verified with spouse who is present during session. Pt with incorrect responses at times with self-report of home setup. 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 PT then developed the required changes to the Plan of Care and determined justification or continuation of therapy. Handoff given to primary RN. For complete objective data, detailed plan of care and patient education refer to: PT EVALUATION flowsheet, PT TREATMENT flowsheet, patient Plan of Care, Plan of Care progress note, and Patient Education. PM&R Progress note ASSESSMENT/PLAN: A: Gracie Lemons continues to demonstrate impairments and medical need appropriate for comprehensive acute inpt rehab T7/T8 discectomy 2/2 thoracic spinal stenosis - Continue Ibuprofen prn pain - Do not order Tylenol based on allergy - Flexeril scheduled for muscle spasms- made prn 03/29 due to increased fatigue - Transferred to IRF 03/23 - Initiate PT/OT for ADLs, transfers and ambulation RLE weakness - Likely 2/2 plexopathy due to positioning during surgery - Continue PT/OT - Consider CT head if other stroke like symptoms occur 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 instability for the last 2 years - Noted masked facies, shuffling gait, tremors, bradykinesia - Low dose Sinemet ordered 03/25 - Increased Sinemet to 1 tab at lunch and 0.5 tabs with breakfast and dinner- can continue to increase as needed - Sinemet increased to 1 tab TID 04/01 RAFAEL - Patient uses CPAP at home, family to bring in machine Dementia - Continue Donepezil HTN - Continue Lisinopril, Metoprolol - Blood pressure parameters put in place for hypotension - Lisinopril decreased 03/26 for hypotension - Lisinopril decreased 03/29 for hypotension Hyperthyroidism - Continue Levothyroxine GERD - Continue Pantoprazole HLD - Continue Atorvastatin, Zetia 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 He feels like his R leg has gotten stronger. He denies any new LE paresthesias. He had a few episodes of diarrhea yesterday. He denies any abdominal pain. Review of systems: No cp, SOA, n/v/d. Temp: [97.9 F (36.6 C)-98.2 F (36.8 C)] 98.1 F (36.7 C) Heart Rate: [77-89] 80 Resp: [17-18] 17 BP: (114-130)/(73-82) 130/82 Physical Exam: General Appearance: In no apparent distress, well nourished HEENT: Normocephalic, atraumatic, neck supple, EOMI, PER Respiratory: On room air, no respiratory distress Cardiovascular: Peripheral pulses palpable, no edema Abdomen: Nontender, nondistended Musculoskeletal: No acute injury or gross deformity, 4/5 R hip flexion, 5/5 L hip flexion Skin: No rashes visualized, normal paplaption of skin and soft tissues Psychiatric: Normal mood and affect, appropriate insight and judgement Therapy Assessments: Assessments per PT, OT, ST documentation (last filed value): Home Living Type of Home: House (03/24/25 1029) Home Layout: One level (laundry on main floor. Does not need to go to basement.) (03/24/25 102) Bathroom Shower/Tub: Walk-in shower, Main level (3 threshold to enter) (03/24/25 1029) Bathroom Toilet: Raised, Main level (03/24/25 1029) Bathroom Equipment: Grab bars in shower, Hand-held showerhead, Shower chair, Bedside commode, Toilet seat capacity analyst (toilet safety frame) (03/24/25 1029) Bathroom Accessibility: (not recorded) Mobility Equipment: Cane, Wheeled walker, Rollator (Spare bed has adjustable features (their specific bed is not adjustable)) (03/24/25 1029) Additional Objective Details - Home Living: Pt was standing to shower prior to admit. All information verified with spouse who is present during session. Pt with incorrect responses at times with self-report of home setup. 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 Spouse reports every now and then she would make pt use the WW if more unsteady that day. Pt did not ambulate in community (stayed in car when going to store, etc); spouse reports his legs would get tired easily.Spouse does indoor IADLs and patient was doing yardwork/mowing. Pt injured R shoulder ~2 months ago (had started physical therapy) - spouse reporting it was a chronic RTC tear from MRI. Son and DIL live next door and had taken over barn chores. Spouse was handling the finances and meds for patient. (03/24/25 102) Current Level of Function Balance: Sitting Balance - Static: Supervision or Touching Assistance (SBA) (03/27/25 07) Sitting Balance - Dynamic: Supervision or Touching Assistance (CGA) (03/27/25729) Standing Balance - Static: Supervision or Touching Assistance (CGA) (04/05/25 1130) Standing Balance - Dynamic: Supervision or Touching Assistance (CGA) (04/05/25 1130) Bed Mobility: Roll Left and Right: Supervision or Touching Assistance (CGA) (03/27/25 07) Lying to Sitting on Side of Bed: Supervision or Touching Assistance, Head of bed elevated (SBA) (04/05/25 0805) Sit to Lying: Partial/Moderate Assistance, Head of bed elevated (Min) (04/01/25 1300) Transfers: Sit to Stand: Supervision or Touching Assistance (CGA) (04/05/25 1130) Bed to Chair: Supervision or Touching Assistance (CGA) (04/05/25 0805) Stand Pivot Transfers: Supervision or Touching Assistance (CGA) (04/05/25 1130) Squat Pivot Transfers: (not recorded) Book Cleaner: wheeled walker (04/05/25 1130) Gait/Locomotion: Gait Assistance: Supervision or Touching Assistance (CGA) (04/05/25 1130) Assistive Device: wheeled walker (04/05/25 1130) Distance: 67 Feet (04/05/25 113) Pattern: step through, R impaired heel strike, L impaired heel strike, R decreased step length, L decreased step length, over reliance on upper extremities, forward flexed, decreased zenon (steps per minute) (04/05/25 1130) Weight Bearing Status: able to maintain (04/05/25 113) ADL & IADL Feeding: (not recorded) Meal Prep: Supervision or Touching Assistance, Use of adaptive equipment (CGA) (04/05/25 1305) Grooming: Supervision or Touching Assistance (CGA) (04/02/25 1305) Upper Body Bathing: Supervision or Touching Assistance (suervision) (04/06/25 0705) Lower Body Bathing: Supervision or Touching Assistance, Use of adaptive equipment (CGA) (04/06/25 0705) Upper Body Dressing: Partial/Moderate Assistance (mod A with spouse assisting) (04/01/25 0915) Lower Body Dressing: Partial/Moderate Assistance, Use of adaptive equipment (mod A) (04/01/25 0915) Toileting: Partial/Moderate Assistance (min A) (04/02/25 1305) Speech Therapy Speech Functional Diagnosis: CVA: (not recorded) Speech/Language (Unrelated to CVA): (not recorded) Cognition (Unrelated to CVA): R41.840 Attention and concentration deficit., R41.841 Cognitive communication deficit. (03/24/25 1325) Dysphagia (Unrelated to CVA): (not recorded) Voice (Unrelated to CVA): (not recorded) Date: 04/06/2025 Time: 6:50 PM Patient Name: Gracie Lemons Date of : 1950 Discharge Disposition Update: 914 [employer] neurology called as discussed with pt , requested an earlier OP appt, currently scheduled for August. feels this referral and appt are to far away as he has been started on medications and they would like an earlier appt. , they understand pt to possibly have Parkinsons/ Parkinson like features. Call made to provider and earlier appt obtained for 04/12/25, as they had a cancellation. Will update pt & . 1115- Patient discussed in rehab treatment team meeting today . Discussed pt progress on IPR unit , target discharge date and also discussed barriers and or concerns for patient discharge. Target discharge date set for : 03/18/25 Discharge date as set , will be written on white board in pt room. D/C Disposition: Home Final D/C Agency/Destination: (OP therapies at [facility]) Plan A: Home Plan A : Post Acute Patient Choice 1: (OP rehab - [facility]) Plan B: [facility] Facility Transportation: Transportation Type: Auto () Options Reviewed: Possible expense, Explained services/benefits Discharge Disposition: Same As Recommended : yes HME: Wheeled walker, Wheel chair HME Agency: [facility] (pt obtaining some items) Reason for Choice: Patient/Family preference Regulatory Documentation: Regulatory Documentation: Medicare IM Regulatory Documentation Status: Signed (orginal was signed) Signed: Spouse Patient Paper Copy: Patient received paper copy 1400- Pt and update on his OP f/u appt with Neurology, print out given with provider information They are very happy with new appt time, pt also thinks they saw this provider when he was in the hospital in [place]. [id number] - OP therapy orders & face sheet faxed to pt selected OP provider : [facility] Located in: [facility] Address: [address] [place] [id number] Called facility spoke with Jaspreet to confirm fax # as [phone] for provider above. Message sent to therapist & HME - [facility] to determine what HME is ordered/recommended and approved for dc tomorrow. Waiting for response. Will continue to follow patient during their IPR admit. Inpatient Rehab Occupational Therapy - Discharge Summary OT Time Calculation Start Time: 704 Stop Time: 834 Time Calculation (min): 90 min OT Individual Therapy Min: 90 Discharge Destination: Home with Family Support. OP Therapies. Date of Discharge: 04/07/25 Skilled Therapy Needs After Discharge Skilled Therapy Needs: Are Skilled Therapy Services Needed After Discharge: Yes Intensity of Skilled Therapy: 2-3 days per week Anticipated Duration of Skilled Therapy: Duration 10 - 30 days DME Recommendation: Adaptive equipment kit DME Rationale: Patient's condition prevents him/her from accomplishing ADL without recommended equipment, Patient's condition creates an increased risk of safety hazard without recommended equipment Goals Pt has made excellent progress towards established goals throughout rehab stay, demonstrating improvements in overall performance with self care tasks, functional transfers, endurance, balance, and strength as compared to initial evaluation. Patient initially requiring 2-3 person assist for ADLs and transfers at evaluation and is now completing with CGA and use of WW. Pt continues to require min safety cues and is limited by continued weakness in LE 's with buckling at times, particularly with extended time in standing and with bilateral UE engagement in tasks. Family training completed prior to discharging home with recommendations to continue with skilled therapy services at discharge. Problem: Self-care Deficit Goal: OT- LTG grooming Description: OT - Patient will complete grooming tasks from w/c level with modified independence and/or with contact guard assist in standing in order to improve self care function. Outcome: Met Note: CGA - standing Mod Ind - seated Goal: OT- LTG UB dressing Description: OT - Patient will complete UB dressing with set-up assist in order to improve self care function. Outcome: Met Goal: OT- LTG toileting Description: OT - Patient will complete toileting with minimal assist in order to improve self care function. Outcome: Met Note: CGA Goal: OT- LTG Self-Care Other Description: OT- Patient will participate in family/caregiver training as needed to enhance a safe return to home environment by time of discharge, including education on ADLs, functional transfers, precautions, fall prevention, HEP, and any adaptive equipment needs. Outcome: Met Problem: Mobility - Impaired Goal: OT- LTG toilet transfer Description: OT - Patient will complete toilet transfer with contact guard assist and use of AD in preparation for ADL's. Outcome: Met Note: CGA Goal: OT- LTG navigation Description: OT - Patient will navigate environment within short household distances with minimal assist and use of AD during simple item retrieval tasks in anticipation for safe return to home/community. Outcome: Met Note: CGA with intermittent Min A and use of AD - min cues Problem: Impaired Strength Goal: OT- LTG Strength Other Description: OT- Patient will tolerate 15 mins of BUE strengthening exercises (WITHIN PRECAUTIONS) in order to improve necessary strength for functional mobility and self care tasks with patient able to complete exercises with no more than min cues by time of discharge. Outcome: Met Problem: Self-care Deficit Goal: OT- LTG LB dressing Description: OT - Patient will complete LB dressing with contact guard assist / footwear management with stand by assist through use of AE with adherence to back precautions in order to improve self care function. Outcome: Partially Met Note: CGA w/ AE - LB dressing SBA-CGA w/ AE and cues - socks/shoes Dependent - daniela hose Goal: OT- LTG LB bathing Description: OT - Patient will complete UB/LB bathing with stand by assist from seated position with use of AE in order to improve self care function. Outcome: Partially Met Note: SBA with AE from seated position CGA when standing Goal: OT- LTG precautions Description: OT - Patient will demonstrate back precaution management with independence in order to improve safe and appropriate ADL/IADL management. Outcome: Partially Met Note: Supervision, min cues Problem: Impaired Neurologic Function Goal: OT- LTG dynamic sitting balance Description: OT - Patient will complete dynamic sitting balance activity with modified independence during extended reaching tasks outside MARK while on unsupported surfaces in preparation for ADL's. Outcome: Partially Met Note: SBA-CGA Goal: OT- LTG static standing balance Description: OT - Patient will complete static standing balance activity with contact guard assist during unilateral task engagement at tabletop level for durations >5 mins with no need for blocking to BLEs in preparation for ADL's. Outcome: Partially Met Note: CGA - can increase to Min A with fatigue in standing past 4-5 mins LE 's continue to buckle at times with fatigue Problem: Mobility - Impaired Goal: OT- STG toilet transfer Description: OT - Patient will complete toilet transfer with maximum assist (x1) with use of AD in preparation for ADL's. Outcome: Completed Problem: Impaired Neurologic Function Goal: OT- STG static standing balance Description: OT - Patient will complete static standing balance activity with moderate assist during unilateral engagement in tabletop tasks for durations up to 2-3 mins with no more than min blocking required to BLEs in preparation for ADL's. Outcome: Completed Therapy Precautions Orthotic Devices: No Weight Bearing Status: WFL General Rehab Precautions: Back, Fall Risk Cognition Overall Cognitive Status: Impaired Arousal/Alertness: Appropriate responses to stimuli Orientation Level: Oriented X4 Executive functioning: Insight Safety Judgment: Decreased awareness of need for safety, Decreased awareness of need for assistance Problem Solving: Assistance required to identify errors made, Assistance required to generate solutions Attention: Attends to quiet environment Hearing Status: [facility] Social Interaction: Cooperative, Appropriate Comments: Pt able to recall 3/3 back precautions, requires edu on weight restriction with lifting. ADL Eating: Assistance Needed: Independent Physical Assistance Level: No physical assistance Oral Hygiene: Assistance Needed: Independent Physical Assistance Level: No physical assistance Skilled Intervention: Pt stands to complete oral care tasks, provided CGA for safety in standing. Pt requesting to sit for shaving needs, stating 'I don't think I have the energy right now to stand for this.' Discussion with patient on having a chair or w/c available at home to sit for extended grooming needs due to continued fatigue/LE weakness with understanding verbalized. Pt then sits to complete remaining grooming tasks with Mod Ind. Toileting Hygiene: Assistance Needed: Incidental touching Physical Assistance Level: No physical assistance Skilled Intervention: Pt able to manage clothing items on/off hips with CGA for safety in standing. Supervision for seated hygiene needs. Shower/Bathe Self: Assistance Needed: Incidental touching, Adaptive equipment, Verbal cues Physical Assistance Level: No physical assistance Skilled Intervention: Pt completes shower while seated from elevated shower bench, able to set-up and sequence appropriately with supervision for seated UB bathing. Pt provided edu/cues for set-up of LH bath sponge to wash distal LEs/feet with pt following through with SBA. Pt encouraged to laterally weight shift for shyann/buttocks region, following-through with SBA. Pt wishing to stand for thoroughness, provided CGA for balance with unilateral support on grab bar. Strongly encouraged patient to not attempt standing in shower at home unless spouse is hands-on and present to offer CGA. Discussed that patient should be using non-skid shower mat at home as well. Understanding verbalized. Upper Body Dressing: Assistance Needed: Set-up / clean-up Physical Assistance Level: No physical assistance Skilled Intervention: Set-up assist to retrieve clothing items, donning with independence from seated position. Lower Body Dressing: Assistance Needed: Incidental touching, Verbal cues, Adaptive equipment Physical Assistance Level: No physical assistance Skilled Intervention: Increased time to thread LB clothing items, provided min cues for problem solving handkerchief sample clerk placement and recognizing errors when threading RLE through wrong pants leg. Pt able to follow-through with cues with SBA to thread, standing to manage over hips with CGA for safety. Putting On/Taking Off Footwear: Assistance Needed: Physical assistance, Adaptive equipment, Verbal cues, Set-up / clean-up Physical Assistance Level: 25% or less Skilled Intervention: Patient able to doff bilateral socks with SBA using handkerchief sample clerk. Total assist to don compression socks; pt verifies spouse is familiar and has been educated on how to don as he will require assistance at home for this. Pt with more difficulty setting-up sock aide when using personal socks from home due to tight fitting socks. Min set-up assist/cues to fully manage sock onto AE with SBA to then don socks. Pt wishing to don L sock through Figure 4 technique, provided CGA for safety with dynamic seated balance while completing. Reinforced sock aide for safety at home. Pt then able to don slip-on tennis shoes with SBA. Functional Mobility Functional Mobility Functional Mobility: Supervision or Touching Assistance, Use of adaptive equipment (CGA with WW) Functional Mobility - Distance: Short Household Distance, Extended Household Distance Skilled Intervention: Pt completes functional mobility in household distances with CGA and use of WW. Pt frequently asking therapist if he would be able to use rollator or cane at home. Reinforced to patient the need for safety and BUE support on AD due to continued LE weakness and buckling. Recommended that patient continue to use WW at this time and that OP therapy will be able to progress patient to another device when ready. Understanding verbalized. IADL Home Management: Supervision or Touching Assistance, Partial/Moderate Assistance, Increased time to complete, Use of adaptive equipment (CGA-Min (navigation)) Home Management - Skilled Intervention Provided: verbal cues, engaged patient in, facilitation, monitored patient's safety and tolerance, provided strategies, patient education Home Management - For: adaptive equipment use, compensatory strategies, efficient movement, fall prevention, self-monitoring Home Management - Resulting In: improved awareness, improved activity tolerance, improved participation with IADL task, improved performance with IADLs Skilled Intervention: Pt participates in functional item retrieval/transport tasks to target improved safety, balance, and endurance with simulated IADLs at home. Pt tasked with retrieving items from floor level, overhead, and in various height cabinets/drawers. Pt provided min-mod cues for safety and positioning of self/WW during task. Pt drops handkerchief sample clerk on one occasion, requiring cue to avoid bending over to pick pack worker handkerchief sample clerk from floor and reinforced back precautions to patient. CGA for balance, sustaining one episode of Min A required during bilateral knees buckling. Increased fatigue noted at this time with patient having difficulty maintaining self within MARK of WW. Cues to recognize fatigue and to take rest break. Discussion with patient on importance of self-monitoring for fatigue and to take rest breaks prematurely at home, ensuring there are chairs available for seated rest breaks. Understanding verbalized. Pt tolerates up to 4:45 on first trial followed by 2.5 mins on second trial after rest break, CGA on second trial. Bed Mobility Lying to Sitting: Assistance Needed: Independent, Adaptive equipment Physical Assistance Level: No physical assistance Book Cleaner: bedrails Skilled Intervention: Pt independent with bed mobility with use of bedrail. Functional Transfers Sit to Stand: Assistance Needed: Incidental touching, Verbal cues, Adaptive equipment Physical Assistance Level: No physical assistance Auy-nk-Flurd: Assistance Needed: Incidental touching, Adaptive equipment, Verbal cues Physical Assistance Level: No physical assistance Toilet Transfer: Assistance Needed: Incidental touching, Adaptive equipment Physical Assistance Level: No physical assistance Shower Transfers: Supervision or Touching Assistance, Partial/Moderate Assistance, Grab bars (CGA-Min) Book Cleaner: wheeled walker Skilled Intervention Provided: verbal cues, facilitation, monitoring patient response with activity, patient education For: UE positioning, fall prevention, efficient movement, safety during functional task(s), safe use of AD and/or equipment, self-monitoring during activity, sequencing of movement Resulting In: improved performance, improved balance, improved awareness, improved activity tolerance Skilled Intervention: Patient completes functional transfers with CGA and use of WW. Min cues for sequencing safe UE placement during sit/stand transfers. Pt sustains one LOB when exiting shower, requiring Min A to correct. Pt continues to require cues for reinforcement of safe sequencing when transferring back to seated position in re: to UE / LE placement and reaching back for chair. Exercise Seated Exercises: FlexBar exercises completed for improved distal UE strength, utilizing medium red resistance to complete 20 reps each of forearm supination, pronation, and wrist flex/ext. Min weakness noted. Balance Treatment Sitting Balance - Static: Independent Sitting Balance - Dynamic: Supervision or Touching Assistance (SBA-CGA) Standing Balance - Static: Supervision or Touching Assistance, with bilateral UE support, with unilateral LUE support, with unilateral RUE support, with device, 3+ to 5 minutes (CGA) Book Cleaner - Standing Static: wheeled walker Home Living Obtained Home Living and PLOF info from: Patient, Patient s family member Unable to obtain Home Living and PLOF info on initial eval: Patient is a questionable historian Lives With: Spouse (Idalia) Type of Home: House Home Layout: One level (laundry on main floor. Does not need to go to basement.) Rails on inside stairs: 2 rails Number of stairs inside home: 16 Steps to enter home: Yes Rails to enter home: 1 rail, L rail going up (+ bilateral grab bars on doorframe) Number of stairs to enter home: 3 Bathroom Shower/Tub: Walk-in shower, Main level (3 threshold to enter) Bathroom Toilet: Raised, Main level Bathroom Equipment: Grab bars in shower, Hand-held showerhead, Shower chair, Bedside commode, Toilet seat capacity analyst (toilet safety frame) Mobility Equipment: Cane, Wheeled walker, Rollator (Spare bed has adjustable features (their specific bed is not adjustable)) ADL Equipment: (none) Additional Objective Details - Home Living: Pt was standing to shower prior to admit. All information verified with spouse who is present during session. Pt with incorrect responses at times with self-report of home setup. 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 OT then developed the required changes to the Plan of Care and determined justification or continuation of therapy. Handoff given to primary RN. For complete objective data, detailed plan of care and patient education refer to: OT EVALUATION flowsheet, OT TREATMENT flowsheet, patient Plan of Care, Plan of Care progress note, and Patient Education. CPAP not in room refused Inpatient Rehab Physical Therapy - Daily Progress Note PT Time Calculation Start Time: 1534 Stop Time: 1544 Time Calculation (min): 10 min PT Individual Therapy Min: 10 Therapy Precautions Orthotic Devices: No Weight Bearing Status: WFL General Rehab Precautions: Fall Risk, Back Exercise Ankle Pumps: x20 lesly Quad Sets: x20 lesly Heelslides: x20 lesly Glute Sets: x20 Hip Abduction: x20 lesly Short Arc Quad: x20 lesly Skilled Intervention Provided: verbal cues, instruction on proper technique/alignment For: achieving full ROM as tolerated, frequency of exercise(s), muscle activation, number of repetitions Resulting in: improved activity tolerance, improved functional strength/ROM Home Living Obtained Home Living and PLOF info from: Patient, Patient s family member Unable to obtain Home Living and PLOF info on initial eval: Patient is a questionable historian Lives With: Spouse (Idalia) Type of Home: House Home Layout: One level (laundry on main floor. Does not need to go to basement.) Rails on inside stairs: 2 rails Number of stairs inside home: 16 Steps to enter home: Yes Rails to enter home: 1 rail, L rail going up (+ bilateral grab bars on doorframe) Number of stairs to enter home: 3 Bathroom Shower/Tub: Walk-in shower, Main level (3 threshold to enter) Bathroom Toilet: Raised, Main level Bathroom Equipment: Grab bars in shower, Hand-held showerhead, Shower chair, Bedside commode, Toilet seat capacity analyst (toilet safety frame) Mobility Equipment: Cane, Wheeled walker, Rollator (Spare bed has adjustable features (their specific bed is not adjustable)) ADL Equipment: (none) Additional Objective Details - Home Living: Pt was standing to shower prior to admit. All information verified with spouse who is present during session. Pt with incorrect responses at times with self-report of home setup. 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 For complete objective data, detailed plan of care and patient education refer to: PT EVALUATION flowsheet, PT TREATMENT flowsheet, patient Plan of Care, Plan of Care progress note, and Patient Education. Cosigned by Raphael Peacock, PT at 04/06/2025 4:04 PM EDT PM&R Progress note ASSESSMENT/PLAN: A: Gracie Lemons continues to demonstrate impairments and medical need appropriate for comprehensive acute inpt rehab T7/T8 discectomy 2/2 thoracic spinal stenosis - Continue Ibuprofen prn pain - Do not order Tylenol based on allergy - Flexeril scheduled for muscle spasms- made prn 03/29 due to increased fatigue - Transferred to IRF 03/23 - Initiate PT/OT for ADLs, transfers and ambulation RLE weakness - Likely 2/2 plexopathy due to positioning during surgery - Continue PT/OT - Consider CT head if other stroke like symptoms occur 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 instability for the last 2 years - Noted masked facies, shuffling gait, tremors, bradykinesia - Low dose Sinemet ordered 03/25 - Increased Sinemet to 1 tab at lunch and 0.5 tabs with breakfast and dinner- can continue to increase as needed - Sinemet increased to 1 tab TID 04/01 RAFAEL - Patient uses CPAP at home, family to bring in machine Dementia - Continue Donepezil HTN - Continue Lisinopril, Metoprolol - Blood pressure parameters put in place for hypotension - Lisinopril decreased 03/26 for hypotension - Lisinopril decreased 03/29 for hypotension Hyperthyroidism - Continue Levothyroxine GERD - Continue Pantoprazole HLD - Continue Atorvastatin, Zetia 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 He feels like his R leg has gotten stronger. He denies any new LE paresthesias. He had a few episodes of diarrhea yesterday. He denies any abdominal pain. Review of systems: No cp, SOA, n/v/d. Temp: [97.3 F (36.3 C)-97.8 F (36.6 C)] 97.3 F (36.3 C) Heart Rate: [65-82] 70 Resp: [16-20] 18 BP: (103-133)/(62-79) 117/78 Physical Exam: General Appearance: In no apparent distress, well nourished HEENT: Normocephalic, atraumatic, neck supple, EOMI, PER Respiratory: On room air, no respiratory distress Cardiovascular: Peripheral pulses palpable, no edema Abdomen: Nontender, nondistended Musculoskeletal: No acute injury or gross deformity, 4/5 R hip flexion, 5/5 L hip flexion Skin: No rashes visualized, normal paplaption of skin and soft tissues Psychiatric: Normal mood and affect, appropriate insight and judgement Therapy Assessments: Assessments per PT, OT, ST documentation (last filed value): Home Living Type of Home: House (03/24/251028) Home Layout: One level (laundry on main floor. Does not need to go to basement.) (03/24/251028) Bathroom Shower/Tub: Walk-in shower, Main level (3 threshold to enter) (03/24/251028) Bathroom Toilet: Raised, Main level (03/24/251028) Bathroom Equipment: Grab bars in shower, Hand-held showerhead, Shower chair, Bedside commode, Toilet seat capacity analyst (toilet safety frame) (03/24/251028) Bathroom Accessibility: (not recorded) Mobility Equipment: Cane, Wheeled walker, Rollator (Spare bed has adjustable features (their specific bed is not adjustable)) (03/24/251028) Additional Objective Details - Home Living: Pt was standing to shower prior to admit. All information verified with spouse who is present during session. Pt with incorrect responses at times with self-report of home setup. 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 Spouse reports every now and then she would make pt use the WW if more unsteady that day. Pt did not ambulate in community (stayed in car when going to store, etc); spouse reports his legs would get tired easily.Spouse does indoor IADLs and patient was doing yardwork/mowing. Pt injured R shoulder ~2 months ago (had started physical therapy) - spouse reporting it was a chronic RTC tear from MRI. Son and DIL live next door and had taken over barn chores. Spouse was handling the finances and meds for patient. (03/24/25 1029) Current Level of Function Balance: Sitting Balance - Static: Supervision or Touching Assistance (SBA) (03/27/25 07) Sitting Balance - Dynamic: Supervision or Touching Assistance (CGA) (03/27/25729) Standing Balance - Static: Partial/Moderate Assistance (CGA to Min Ax1) (04/02/25 09) Standing Balance - Dynamic: Partial/Moderate Assistance (CGA to Min Ax1) (04/02/25 09) Bed Mobility: Roll Left and Right: Supervision or Touching Assistance (CGA) (03/27/25 07) Lying to Sitting on Side of Bed: Supervision or Touching Assistance, Head of bed elevated (SBA) (04/05/25 08) Sit to Lying: Partial/Moderate Assistance, Head of bed elevated (Min) (04/01/25 1300) Transfers: Sit to Stand: Supervision or Touching Assistance (CGA) (04/05/25 08) Bed to Chair: Supervision or Touching Assistance (CGA) (04/05/25 08) Stand Pivot Transfers: Supervision or Touching Assistance (CGA) (04/05/25 08) Squat Pivot Transfers: (not recorded) Book Cleaner: wheeled walker (04/05/25 08) Gait/Locomotion: Gait Assistance: Supervision or Touching Assistance (CGA) (04/05/25 08) Assistive Device: wheeled walker (04/05/25 08) Distance: (150+ feet) (04/05/25 08) Pattern: R impaired heel strike, L impaired heel strike, L decreased step length, R decreased step length (04/05/25 08) Weight Bearing Status: able to maintain (03/27/25729) ADL & IADL Feeding: (not recorded) Meal Prep: (not recorded) Grooming: Supervision or Touching Assistance (CGA) (04/02/25 1305) Upper Body Bathing: Supervision or Touching Assistance (SBA) (04/01/25914) Lower Body Bathing: Partial/Moderate Assistance, Use of adaptive equipment (min-mod A) (04/01/25 09) Upper Body Dressing: Partial/Moderate Assistance (mod A with spouse assisting) (04/01/25 09) Lower Body Dressing: Partial/Moderate Assistance, Use of adaptive equipment (mod A) (04/01/25 09) Toileting: Partial/Moderate Assistance (min A) (04/02/25 1305) Speech Therapy Speech Functional Diagnosis: CVA: (not recorded) Speech/Language (Unrelated to CVA): (not recorded) Cognition (Unrelated to CVA): R41.840 Attention and concentration deficit., R41.841 Cognitive communication deficit. (03/24/25 1325) Dysphagia (Unrelated to CVA): (not recorded) Voice (Unrelated to CVA): (not recorded) Date: 04/05/2025 Time: 5:41 PM Patient Name: Gracie Lemons Date of : 1950 Discharge Disposition Update: Spoke with pt at bedside to discuss pt progress and dc plan, pt currently out of the room Pt shares she really feels he is starting to make some good progress and just today is feeling better about the discharge to home Discussed we will be talking about pt in rehab tx team tomorrow and recommendations for dc. She thinks they would like OP therapies for him at dc, at a [facility]. Will plan to make referral as discussed. Home going hme also discussed. D/C Disposition: Home Final D/C Agency/Destination: (OP therapies at [facility]) Plan A: Home Plan A : Post Acute Patient Choice 1: (OP rehab - [facility]) Plan B: [facility] Facility Transportation: Transportation Type: Auto () Options Reviewed: Possible expense, Explained services/benefits Discharge Disposition: Same As Recommended : yes HME: Wheeled walker, Wheel chair Reason for Choice: Patient/Family preference Will continue to follow patient during their IPR admit. Will assist pt & caregiver to develop appropriate discharge plan to meet their needs as IP Rehab admit progresses and comes to the end of their stay. Inpatient Rehab Occupational Therapy - Daily Progress Note OT Time Calculation Start Time: 1305 Stop Time: 1350 Time Calculation (min): 45 min OT Individual Therapy Min: 45 Therapy Precautions Orthotic Devices: No Weight Bearing Status: WFL General Rehab Precautions: Back, Fall Risk Cognition Overall Cognitive Status: Impaired Arousal/Alertness: Appropriate responses to stimuli Executive functioning: Insight Safety Judgment: Decreased awareness of need for safety, Decreased awareness of need for assistance Problem Solving: Assistance required to identify errors made, Assistance required to generate solutions Attention: Attends to quiet environment Hearing Status: WFL Social Interaction: Cooperative IADL Meal Prep: Supervision or Touching Assistance, Use of adaptive equipment (CGA) Meal Prep - Skilled Intervention Provided: verbal cues, engaged patient in, facilitation, monitored patient's safety and tolerance, patient education Meal Prep - For: compensatory strategies, efficient movement, fall prevention, self-monitoring, task simplification/modification Meal Prep - Resulting In: improved activity tolerance, improved awareness, improved functional independence, improved participation in IADL task, improved performance with IADLs Skilled Intervention: Pt participated in simple meal prep to increase standing tolerance and activity tolerance with decreased risk of falls during functional IADL task. Educated on safe item retrieval and transportation with good demo return. Educated on AE for walker to increase ease of transporting items including walker basket, bag, cup javier and tray. Pt completing item retrieval and transport from various locations in kitchen for PB&J sandwich with CGA for balance using FWW. Pt stood at counter to prep and make PB&J sandwich with CGA. Required 2 seated rest breaks with chair behind pt for safety. Washed dishes with CGA for balance with rest break following for EC. Educated on keeping chair or w/c nearby for safety as pt reports fatiguing easily and demoing need for seated rest breaks. No LOB during task but min cueing for postural correction due to increased flexion of knees and posture. Functional Transfers Sit to Stand: Supervision or Touching Assistance (CGA) Book Cleaner: wheeled walker Skilled Intervention Provided: verbal cues, facilitation, monitoring patient response with activity, patient education For: UE positioning, LE positioning, controlled descent, fall prevention, efficient movement, activity tolerance, safe use of AD and/or equipment, safety during functional task(s), self-monitoring during activity Resulting In: improved activity tolerance, improved performance, improved awareness, improved safety, improved functional independence Skilled Intervention: Pt performing functional transfers with CGA using FWW with min cueing for safe hand placement and ensuring safely positioned prior to declining to w/c fo rres tbreaks. Exercise Seated Exercises: Pt performing bilat UE exercises to increase UE strength. Pt tolerated 1 set of 15 reps using 3# dumbbell for left UE in shoulder flex/ext, chest press, horizontal ABD/ADD, bicep curl and wrist flex/ext. Tolerated 1 set of 15 reps with AROM right shoulder flex/ext and chest press and 1 x 15 reps bicep curl and wrist flex/ext using 2# dumbbell. Min cueing for proper form/technique. Skilled intervention provided: verbal cues, patient education, visual cues For: achieving full ROM as tolerated, self-monitoring during activity, proper positioning of extremity Resulting In: improved activity tolerance, improved functional strength/ROM Home Living Obtained Home Living and PLOF info from: Patient, Patient s family member Unable to obtain Home Living and PLOF info on initial eval: Patient is a questionable historian Lives With: Spouse (Idalia) Type of Home: House Home Layout: One level (laundry on main floor. Does not need to go to basement.) Rails on inside stairs: 2 rails Number of stairs inside home: 16 Steps to enter home: Yes Rails to enter home: 1 rail, L rail going up (+ bilateral grab bars on doorframe) Number of stairs to enter home: 3 Bathroom Shower/Tub: Walk-in shower, Main level (3 threshold to enter) Bathroom Toilet: Raised, Main level Bathroom Equipment: Grab bars in shower, Hand-held showerhead, Shower chair, Bedside commode, Toilet seat capacity analyst (toilet safety frame) Mobility Equipment: Cane, Wheeled walker, Rollator (Spare bed has adjustable features (their specific bed is not adjustable)) ADL Equipment: (none) Additional Objective Details - Home Living: Pt was standing to shower prior to admit. All information verified with spouse who is present during session. Pt with incorrect responses at times with self-report of home setup. 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 For complete objective data, detailed plan of care and patient education refer to: OT EVALUATION flowsheet, OT TREATMENT flowsheet, patient Plan of Care, Plan of Care progress note, and Patient Education. Cosigned by Jaspreet Gudino OT at 04/05/2025 4:07 PM EDT Inpatient Rehab Physical Therapy - Daily Progress Note PT Time Calculation Start Time: 1130 Stop Time: 1215 Time Calculation (min): 45 min PT Individual Therapy Min: 45 Therapy Precautions Orthotic Devices: No Weight Bearing Status: WFL General Rehab Precautions: Fall Risk, Back Balance Standing Balance - Static: Supervision or Touching Assistance (CGA) Book Cleaner - Standing Static: wheeled walker Loss of Balance- Standing Static: intermittent Standing Balance - Dynamic: Supervision or Touching Assistance (CGA) Book Cleaner - Standing Dynamic: wheeled walker Loss of Balance- Standing Dynamic: intermittent Transfers Sit to Stand: Supervision or Touching Assistance (CGA) Stand Pivot Transfers: Supervision or Touching Assistance (CGA) Book Cleaner: wheeled walker Skilled Intervention Provided: verbal cues, monitoring patient response with activity, patient education, caregiver/family education with patient involvement For: UE positioning, controlled descent, fall prevention, safety during functional tasks, safe use of AD and/or equipment, self-monitoring during activity Resulting in: improved activity tolerance, improved functional independence, improved performance, improved safety, improved caregiver/family awareness, improved caregiver/family safety Skilled Intervention: Verbal cues provided for proper hand placement and controlled descent with pt having good carryover. Functional Transfers Toilet Transfers: Supervision or Touching Assistance, Grab bars (CGA from spouse) Book Cleaner: BUE Skilled Intervention Provided: verbal cues, monitoring patient response with activity, caregiver/family education with patient involvement, patient education For: UE positioning, fall prevention, safety during functional tasks, self-monitoring during activity Resulting in: improved activity tolerance, improved functional independence, improved performance, improved safety, improved caregiver/family awareness, improved caregiver/family safety Skilled Intervention: Pt completing toilet transfer 2x with CGA from spouse. Pt requiring assistance for shyann care and breif/lower body clothing management. Pt and spouse education provided for safe completion. Gait/Locomotion Gait Assistance: Supervision or Touching Assistance (CGA) Assistive Device: wheeled walker Distance: 67 Feet Rest Breaks: Yes Rest Break Position: seated Rest Break Duration: 3min Additional Gait Trial 2: Yes Gait Assistance Trial 2: Supervision or Touching Assistance (CGA) Assistive Device Trial 2: wheeled walker Distance Trial 2: 34 Pattern: step through, R impaired heel strike, L impaired heel strike, R decreased step length, L decreased step length, over reliance on upper extremities, forward flexed, decreased zenon (steps per minute) Weight Bearing Status: able to maintain Gait Loss(es) of Balance: intermittent Environment/Terrain: open/community environment, multiple distractions Skilled Intervention Provided: verbal cues, monitoring patient response with activity, patient education For: activity tolerance, device management and safe use of device, fall prevention, gait sequence, gait technique, improved posture, self-monitoring during activity Resulting in: improved activity tolerance, improved functional independence, improved performance, improved safety Skilled Intervention: Verbal cues provided for improved step length/height, upright posture, and proper AD management. Exercise Ankle Pumps: x20 lesly Hip Flexion: x20 lesly Hip Abduction: x20 lesly Long Arc Quad: x20 lesly Seated Exercises: hip add x20 lesly Skilled Intervention Provided: verbal cues, instruction on proper technique/alignment, monitoring patient response with exercise, patient education For: achieving full ROM as tolerated, efficient movement, muscle activation, number of repetitions, self-monitoring during activity Resulting in: improved activity tolerance, improved functional strength/ROM Skilled Intervention: Recumbent bike for 10min on lvl1 for improved BLE strength, mobility, and functional activity tolerance. Home Living Obtained Home Living and PLOF info from: Patient, Patient s family member Unable to obtain Home Living and PLOF info on initial eval: Patient is a questionable historian Lives With: Spouse (Idalia) Type of Home: House Home Layout: One level (laundry on main floor. Does not need to go to basement.) Rails on inside stairs: 2 rails Number of stairs inside home: 16 Steps to enter home: Yes Rails to enter home: 1 rail, L rail going up (+ bilateral grab bars on doorframe) Number of stairs to enter home: 3 Bathroom Shower/Tub: Walk-in shower, Main level (3 threshold to enter) Bathroom Toilet: Raised, Main level Bathroom Equipment: Grab bars in shower, Hand-held showerhead, Shower chair, Bedside commode, Toilet seat capacity analyst (toilet safety frame) Mobility Equipment: Cane, Wheeled walker, Rollator (Spare bed has adjustable features (their specific bed is not adjustable)) ADL Equipment: (none) Additional Objective Details - Home Living: Pt was standing to shower prior to admit. All information verified with spouse who is present during session. Pt with incorrect responses at times with self-report of home setup. 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 For complete objective data, detailed plan of care and patient education refer to: PT EVALUATION flowsheet, PT TREATMENT flowsheet, patient Plan of Care, Plan of Care progress note, and Patient Education. Cosigned by Raphael Peacock, PT at 04/06/2025 4:04 PM EDT Inpatient Rehab Occupational Therapy - Daily Progress Note OT Time Calculation Start Time: 1036 Stop Time: 1123 Time Calculation (min): 47 min OT Individual Therapy Min: 47 Pt's spouse present to observe therapy session. Therapy Precautions Orthotic Devices: No Weight Bearing Status: WFL General Rehab Precautions: Back, Fall Risk Cognition Overall Cognitive Status: Impaired Arousal/Alertness: Appropriate responses to stimuli Executive functioning: Insight Safety Judgment: Decreased awareness of need for safety, Decreased awareness of need for assistance Problem Solving: Assistance required to identify errors made, Assistance required to generate solutions Attention: Attends to quiet environment Hearing Status: WFL Social Interaction: Cooperative, Appropriate Functional Mobility Functional Mobility: Supervision or Touching Assistance, Use of adaptive equipment (CGA with WW) Functional Mobility - Distance: Short Household Distance Skilled Intervention: Pt completes functional mobility in short household distances with CGA and use of WW. Continued instability in LEs noted, however no episodes of buckling during gait. IADL Home Management: Supervision or Touching Assistance, Partial/Moderate Assistance, Increased time to complete, Setup or Clean-up Assistance (CGA-Min (dishes)) Home Management - Skilled Intervention Provided: verbal cues, facilitation, monitored patient's safety and tolerance, provided strategies, patient education, caregiver/family education with patient involvement Home Management - For: efficient movement, compensatory strategies, fall prevention, self-monitoring Home Management - Resulting In: improved caregiver/family awareness, improved caregiver/family safety, improved activity tolerance, improved participation with IADL task, improved performance with IADLs Skilled Intervention: Patient reports he frequently completed meal prep and dishes at home prior to admit. Pt declines meal prep tasks at this time due to not having available ingredients in kitchen to prepare menu item he would fix at home. Lengthy discussion with pt and spouse on recommendation to have items relocated to cabinet height or higher to accommodate for back precautions with understanding verbalized. Discussed walker bag options for home to assist with transporting items in the home / kitchen environment. Stressed to spouse that patient will require hands-on support for safety with standing balance / LE weakness with all transfers/standing tasks at home, including IADL participation. Strongly encouraged chair be available in kitchen setting and closely available for seated rest breaks as patient continues to fatigue in LE 's after 2-4 min intervals with chair required to be brought up behind patient this date for rest breaks. Set-up assistance for dishwashing tasks at sink while in standing, initially able to complete with CGA but requiring consistent Min A as fatigue/buckling in LE 's worsen with increased time in standing. Pt completes 4 standing trials, initially standing for 5.5 mins on first trial with subsequent trials in 2-3 min intervals before fatigued. Cues to recognize need for rest breaks and to sit before legs buckle. Functional Transfers Sit to Stand: Supervision or Touching Assistance (CGA) Bed to Chair Transfers: Supervision or Touching Assistance (CGA) Book Cleaner: wheeled walker Skilled Intervention Provided: verbal cues, facilitation, monitoring patient response with activity, patient education For: UE positioning, fall prevention, efficient movement, safety during functional task(s), self-monitoring during activity Resulting In: improved balance, improved awareness, improved activity tolerance, improved performance Skilled Intervention: Patient completes functional transfers with CGA and use of WW, continues to require min-mod cues for safe UE placement and WW management during transfers. Edu to pt and spouse on importance of ensuring patient is fully turning and reaching back for chair. Exercise Standing Exercises: Shoulder ladder completed while in standing to raise/lower 2 lb dowel dhruv to horizontal rungs, placing focus on improved standing tolerance/balance and UE strength, particularly without having UE support to stabilize self. Pt stands with CGA, requiring 3 seated rest breaks to complete 10 reps of exercise, noted to fatigue in LEs after ~1.5 min intervals in standing. LE shakiness and min buckling of knees noted when standing without UE support. Weakness and decreased ROM of R shoulder noted with shoulder flexion components, noted difficulty with raising to higher rungs of ladder. Pt reporting injury to R shoulder prior to hospitalization. Home Living Obtained Home Living and PLOF info from: Patient, Patient s family member Unable to obtain Home Living and PLOF info on initial eval: Patient is a questionable historian Lives With: Spouse (Idalia) Type of Home: House Home Layout: One level (laundry on main floor. Does not need to go to basement.) Rails on inside stairs: 2 rails Number of stairs inside home: 16 Steps to enter home: Yes Rails to enter home: 1 rail, L rail going up (+ bilateral grab bars on doorframe) Number of stairs to enter home: 3 Bathroom Shower/Tub: Walk-in shower, Main level (3 threshold to enter) Bathroom Toilet: Raised, Main level Bathroom Equipment: Grab bars in shower, Hand-held showerhead, Shower chair, Bedside commode, Toilet seat capacity analyst (toilet safety frame) Mobility Equipment: Cane, Wheeled walker, Rollator (Spare bed has adjustable features (their specific bed is not adjustable)) ADL Equipment: (none) Additional Objective Details - Home Living: Pt was standing to shower prior to admit. All information verified with spouse who is present during session. Pt with incorrect responses at times with self-report of home setup. 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 Spouse reports every now and then she would make pt use the WW if more unsteady that day. Pt did not ambulate in community (stayed in car when going to store, etc); spouse reports his legs would get tired easily.Spouse does indoor IADLs and patient was doing yardwork/mowing. Pt injured R shoulder ~2 months ago (had started physical therapy) - spouse reporting it was a chronic RTC tear from MRI. Son and DIL live next door and had taken over barn chores. Spouse was handling the finances and meds for patient. Handoff given to primary RN. For complete objective data, detailed plan of care and patient education refer to: OT EVALUATION flowsheet, OT TREATMENT flowsheet, patient Plan of Care, Plan of Care progress note, and Patient Education. Inpatient Rehab Physical Therapy - Daily Progress Note PT Time Calculation Start Time: 804 Stop Time: 834 Time Calculation (min): 30 min PT Individual Therapy Min: 30 Therapy Precautions Orthotic Devices: No Weight Bearing Status: WFL General Rehab Precautions: Fall Risk, Back Bed Mobility Lying to Sitting on Side of Bed: Supervision or Touching Assistance, Head of bed elevated (SBA) Skilled Intervention Provided: verbal cues For: activity tolerance, safety during functional tasks Resulting in: improved activity tolerance, improved functional independence, improved performance Transfers Sit to Stand: Supervision or Touching Assistance (CGA) Bed to Chair: Supervision or Touching Assistance (CGA) Stand Pivot Transfers: Supervision or Touching Assistance (CGA) Book Cleaner: wheeled walker Skilled Intervention Provided: verbal cues For: activity tolerance, controlled descent, safety during functional tasks Resulting in: improved activity tolerance, improved functional independence, improved performance Skilled Intervention: Verbal cues for slow descent with stand to sit transfers for safety. Functional Transfers Car Transfers: Supervision or Touching Assistance (CGA) Book Cleaner: wheeled walker Skilled Intervention Provided: verbal cues For: activity tolerance, sequencing of movement Resulting in: improved activity tolerance, improved functional independence, improved performance Skilled Intervention: Verbal cues for UE placement needed with car transfer. CGA provided for safety. Gait/Locomotion Gait Assistance: Supervision or Touching Assistance (CGA) Assistive Device: wheeled walker Distance: (150+ feet) Pattern: R impaired heel strike, L impaired heel strike, L decreased step length, R decreased step length Gait Loss(es) of Balance: intermittent Environment/Terrain: open/community environment, multiple distractions Skilled Intervention Provided: verbal cues For: activity tolerance, gait technique, improved posture Resulting in: improved activity tolerance, improved functional independence, improved performance Skilled Intervention: Verbal cues for posture and step length with gait training. Stair Management Stair Management Assistance: Partial/Moderate Assistance (Min) Assistive Device: BUE Stair Management Technique: two rails, step-to pattern Number of Stairs: 4 (6 inch) Skilled Intervention Provided: verbal cues For: activity tolerance, stairs sequence/technique Resulting in: improved activity tolerance, improved functional independence, improved performance Skilled intervention: Min needed for standing balance and safety with stair training. Verbal cues for proper sequencing with stair training. Home Living Obtained Home Living and PLOF info from: Patient, Patient s family member Unable to obtain Home Living and PLOF info on initial eval: Patient is a questionable historian Lives With: Spouse (Idalia) Type of Home: House Home Layout: One level (laundry on main floor. Does not need to go to basement.) Rails on inside stairs: 2 rails Number of stairs inside home: 16 Steps to enter home: Yes Rails to enter home: 1 rail, L rail going up (+ bilateral grab bars on doorframe) Number of stairs to enter home: 3 Bathroom Shower/Tub: Walk-in shower, Main level (3 threshold to enter) Bathroom Toilet: Raised, Main level Bathroom Equipment: Grab bars in shower, Hand-held showerhead, Shower chair, Bedside commode, Toilet seat capacity analyst (toilet safety frame) Mobility Equipment: Cane, Wheeled walker, Rollator (Spare bed has adjustable features (their specific bed is not adjustable)) ADL Equipment: (none) Additional Objective Details - Home Living: Pt was standing to shower prior to admit. All information verified with spouse who is present during session. Pt with incorrect responses at times with self-report of home setup. 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 For complete objective data, detailed plan of care and patient education refer to: PT EVALUATION flowsheet, PT TREATMENT flowsheet, patient Plan of Care, Plan of Care progress note, and Patient Education. Cosigned by Raphael Peacock, PT at 04/06/2025 4:04 PM EDT HMS PROGRESS NOTE Patient name: Gracie Lemons Date of : 1950 Assessment and plan Gracie Lemons is a 75 y.o. male patient of Armando Kohli MD with history of anemia, BPH, CAD, DM, GERD, HLD, HTN, RAFAEL, and CVA presented to [facility] on 03/23/2025 with debility s/p T7-8 discectomy. Debility Impaired Mobility and ADLs Comprehensive Rehab with PT/OT/ST PMR following T7-T8 Discectomy Right Side Weakness Parkinsonian Features T7-8 Discectomy on 03/11 at [employer] with neurosurgery Patient with subsequent Right side weakness Neurology at [employer] believes it to possibly be lumbosacral plexopathy Patient with Parkinsonian features including masked facies, hypophonic speech, cogwheeling rigidity of axial and appendicular muscles, and bradykinesia A referral has been sent to [facility] Continue Flexeril, gabapentin, and nortriptyline Continue low dose Sinemet, may need to up titrate if no response in a week. May titrate up to 1 pill on 04/01/25 Noted that PT is not seeing a shuffling gait in last two treatments Pressure Injury Coccyx, POA Pressure Injury gluteal fold, POA Consult Wound Care - orders placed Fibrotic Lung Disease Continue Mucinex Ordered home OFEV, family brought in it is non-formulary History of CVA CAD HTN HLD Continue atorvastatin, Plavix, Zetia, lisinopril, and metoprolol 50 mg bid Lisinopril decreased to 5 mg daily due to hypotension Type 2 Diabetes HgbA1C 7.7 in June 2024 Diabetic Diet Sliding Scale Insulin Recommend outpatient follow-up Bilateral nares small scabbed area Bacitracin bid Hypothyroidism Will check TSH and reflex T4 TSH 3.92, Free T4 1.5 Continue levothyroxine Cognitive Disorder Continue donepezil GERD Continue Protonix Vitamin D Deficiency Continue Supplementation RAFAEL CPAP ordered, refused overnight 2L/NC while sleeping if refusing CPAP Chronic Anemia Hgb 13.0 Baseline Hgb 10-13 Continue Ferrous Sulfate Overweight BMI 29.09 Encourage Diet and Lifestyle modifications Discharge planning Medically ready for discharge: no Patient and/or family has been notified they are expected to be medically stable for discharge on the following date: 04/07/25 Patient requires continued hospitalization due to: Inpatient Rehab Discussed with the patient and/or family that the following is a potential discharge location, understanding that the final plan will depend on the patient's progress and shared decision-making: Home with home health The following resources have been ordered to assist with discharge barriers: care management, PT, OT Quality measures DVT prophylaxis: lovenox Lei catheter: absent Code status Full Code Subjective Complaint of scant bleeding and scabbed area inside of both nostrils. Objective BP 101/65 (Patient Position: Sitting) Pulse 74 Temp 97.9 F (36.6 C) (Oral) Resp 16 Ht 5' 5 Wt 73.4 kg (161 lb 13.1 oz) SpO2 96% BMI 26.93 kg/m General appearance: alert; chronically ill appearing; in no acute distress HEENT: Head- normocephalic; Eyes- EOMI, sclera anicteric; Throat- mucous membranes moist Cardiovascular: regular rate and rhythm; normal S1, S2; no murmurs, rubs, clicks or gallops; peripheral edema absent Respiratory: lungs clear to auscultation; without wheezes, rales or rhonchi; on room air Abdomen: soft, non-tender, non-distended Neurological: oriented x 3; normal speech; parkinsonian movements, right side weakness Musculoskeletal: no significant deformity, unable to extend right arm all the way Skin: normal coloration Psych: normal mood and affect DME [id number] Attestation: Patient Name: Gracie Lemons Prescribing Physician Patient Diagnosis: Status post discectomy - - Plan: Wheelchair, wheelchair cushion I have evaluated the patient and based on my findings the following DME is/are medically necessary: Wheelchair for the treatment of mobility limitations to enable participation in mobility-related activites of daily living (MRADL) in the home. The patient is able to propel himself with the wheelchair and use it safely. It is not safe for him to use a walker at all times due to lower extremity weakness and suffling gait that worsens with distance. He is willing to use the chair and his is willing to assist his use of the wheelchair. Patient was seen today for a [id number] evaluation regarding home durable medical equipment (DME). Patient has a history of the above diagnoses, and due to the functional deficits related to these diagnoses, including impaired mobility and ADLs, they require the use of this DME. This equipment is necessary to discharge the patient safely to their home environment and will promote increased independence for this patient to manage the dawson elements of mobility and ADLs within the home. This equipment is deemed reasonable and medically necessary. See therapy note for further information on DME specifications. Inpatient Rehab Occupational Therapy - Daily Progress Note OT Time Calculation Start Time: 1305 Stop Time: 1435 Time Calculation (min): 90 min OT Individual Therapy Min: 90 Therapy Precautions Orthotic Devices: No Weight Bearing Status: WFL General Rehab Precautions: Back, Fall Risk Cognition Arousal/Alertness: Appropriate responses to stimuli Orientation Level: Oriented X4 Safety Judgment: Decreased awareness of need for safety Problem Solving: Assistance required to identify errors made Attention: Attends to distracted environment Hearing Status: WFL Social Interaction: Cooperative, Appropriate ADL Grooming: Supervision or Touching Assistance (CGA) Grooming - Skilled Intervention Provided: facilitation, monitored patient's safety and tolerance Grooming - For: fall prevention, efficient movement Grooming - Resulting In: improved participation in ADL task, improved performance with ADLs, improved functional independence Skilled Intervention: Pt stood at sink to wash hands with CGA for balance with seated rest break following for EC/recovery. Toileting: Partial/Moderate Assistance (min A) Toileting - Skilled Intervention Provided: facilitation, monitored patient's safety and tolerance, verbal cues, caregiver/family education with patient involvement Toileting - For: fall prevention, efficient movement, compensatory strategies Toileting - Resulting In: improved caregiver/family awareness, improved caregiver/family safety, improved activity tolerance, improved participation in ADL task, improved performance with ADLs, improved functional independence Skilled Intervention: Pt requiring CGA for balance to hike brief and pants down over hips. Required min A with spouse assisting for hiking brief and pants up over hips. Hygiene requiring min A for thoroughness post BM with spouse assisting. Functional Mobility Functional Mobility: Supervision or Touching Assistance, Use of adaptive equipment (CGA using FWW) Functional Mobility - Distance: Bedroom/Bathroom Disance Functional Transfers Sit to Stand: Supervision or Touching Assistance (CGA) Toilet Transfers: Supervision or Touching Assistance, Grab bars, Use of adaptive equipment (CGA) Book Cleaner: wheeled walker Skilled Intervention Provided: monitoring patient response with activity, verbal cues For: UE positioning, efficient movement, fall prevention, controlled descent, safe use of AD and/or equipment Resulting In: improved activity tolerance, improved functional independence, improved performance, improved safety Skilled Intervention: Min cueing for safe hand placement during transfers to FWW and when returning to w/c for controlled descent. Exercise Seated Exercises: Pt participated in bilat UE exercises to increase UE strength and ROM. Pt tolerated 2 sets of 10 reps with 3# dumbbell left UE in shoulder flex/ext, chest press, horizontal ABD/ADD, bicep curl, forearm supination/pronation and wrist flex/ext. Pt tolerated 2 sets of 10 reps of AAROM right shoulder flex/ext, chest press, horizontal ABD/ADD with assist for increasing ROM of flexion passed 80-90 degrees and for stabilizing UE in appropriate plane during horizontal ABD/ADD. Tolerated right UE for 2 sets of 10 reps with 2# dumbbell in bicep curl, forearm supination/pronation and wrist flex/ext. Tolerated well. Skilled intervention provided: verbal cues, tactile cues, instruction on proper technique/alignment, monitoring patient response with exercise For: achieving full ROM as tolerated, proper positioning of extremity Resulting In: efficient movement, improved functional strength/ROM Balance Treatment Standing Balance - Static: Supervision or Touching Assistance, without UE support, with unilateral LUE support, with unilateral RUE support, 3+ to 5 minutes, 1+ to 3 minutes (CGA) Book Cleaner - Standing Static: (elevated tabletop) Loss of Balance- Standing Static: (none) Standing Balance - Dynamic: Supervision or Touching Assistance, with device, with unilateral LUE support, with unilateral RUE support, greater than 5 minutes, 3+ to 5 minutes (CGA) Book Cleaner - Standing Dynamic: wheeled walker Loss of Balance- Standing Dynamic: (none) Standing Balance Treatment: reaching across midline, reaching outside base of support, reaching within base of support, decreased UE support Skilled Intervention Provided: verbal cues, patient education For: UE positioning, efficient movement, fall prevention, safe use of AD and/or equipment, self-monitoring during activity Resulting in: improved activity tolerance, improved functional independence, improved safety, improved performance Skilled Intervention: Participated in [place] activities to increase standing tolerance and balance. Visual Scanning requiring pt to touch moving algaaciq on screen while attending to intermittent flashing letter in center of screen for dual attention. Pt tolerated standing x 3:00 minutes with 85% hand-eye accuracy for touching moving algaaciq alternating UE use during task with 2.11 sec reaction time and 85 hits. Fixation results with 60% accuracy of touching flashing letter before moving algaaciq with x 10 changes and attending to 6 correctly. No LOB with CGA during tasks. Pt stood x 5:10 minutes while sequencing numbers 1-50, alternating UE use with min cues for hand positioning on walker for safety with CGA for balance. Pt with 6.20 sec reaction time and 92.59% of hand-eye accuracy. Pt stood at elevated tabletop to completed PVC pipe activity requiring bilateral integration to build PVP pipe structure based on instructional handout with min cueing for instruction/following sequence on handout. No LOB. Tolerated standing 3 trials of 2:00-3:00 minutes per stand. Interventions Cognitive Training: Sequencing, Attention Visual/Perceptual Training: Eye-hand coordination, Scanning / Tracking Fine Motor Training: Manipulating objects, In-hand rotation/translation Home Living Obtained Home Living and PLOF info from: Patient, Patient s family member Unable to obtain Home Living and PLOF info on initial eval: Patient is a questionable historian Lives With: Spouse (Idalia) Type of Home: House Home Layout: One level (laundry on main floor. Does not need to go to basement.) Rails on inside stairs: 2 rails Number of stairs inside home: 16 Steps to enter home: Yes Rails to enter home: 1 rail, L rail going up (+ bilateral grab bars on doorframe) Number of stairs to enter home: 3 Bathroom Shower/Tub: Walk-in shower, Main level (3 threshold to enter) Bathroom Toilet: Raised, Main level Bathroom Equipment: Grab bars in shower, Hand-held showerhead, Shower chair, Bedside commode, Toilet seat capacity analyst (toilet safety frame) Mobility Equipment: Cane, Wheeled walker, Rollator (Spare bed has adjustable features (their specific bed is not adjustable)) ADL Equipment: (none) Additional Objective Details - Home Living: Pt was standing to shower prior to admit. All information verified with spouse who is present during session. Pt with incorrect responses at times with self-report of home setup. 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 For complete objective data, detailed plan of care and patient education refer to: OT EVALUATION flowsheet, OT TREATMENT flowsheet, patient Plan of Care, Plan of Care progress note, and Patient Education. Cosigned by Aline Head OT at 04/02/2025 4:38 PM EDT Inpatient Rehab Physical Therapy - Daily Progress Note PT Time Calculation Start Time: 1115 Stop Time: 1145 Time Calculation (min): 30 min PT Individual Therapy Min: 30 Therapy Precautions Orthotic Devices: No Weight Bearing Status: WFL General Rehab Precautions: Fall Risk, Back Gait/Locomotion Wheelchair Mobility Wheelchair Mobility Assistance: Partial/Moderate Assistance (SBA (over even surface) to occ Min Ax1 (for ascent of incline)) Wheelchair distance: 200 Feet (x2 trials; over various surface types) Wheelchair Environment/Terrain: open/community environment, multiple distractions, uneven surfaces, inclines/declines Skilled Intervention Provided: verbal cues, facilitation, monitoring patient response with activity, patient education For: activity tolerance, attention to task, device adjustment fit to patient, device management and safe use of device, self-monitoring during activity, wheelchair propulsion technique, wheelchair safety / locking brakes, wheelchair mechanical aspects Resulting in: good carryover of cues, improved activity tolerance, improved functional independence, improved performance, improved safety Skilled Intervention: Pt propels self over various surface types (even/level surface, 2 declines, and 1 20 feet incline) with use of bilat UEs. Pt needing consistent SBA with neogotiation over even surface but up to Min Ax1 for ascent of incline. Requires increased time and effort for task completion. Home Living Obtained Home Living and PLOF info from: Patient, Patient s family member Unable to obtain Home Living and PLOF info on initial eval: Patient is a questionable historian Lives With: Spouse (Idalia) Type of Home: House Home Layout: One level (laundry on main floor. Does not need to go to basement.) Rails on inside stairs: 2 rails Number of stairs inside home: 16 Steps to enter home: Yes Rails to enter home: 1 rail, L rail going up (+ bilateral grab bars on doorframe) Number of stairs to enter home: 3 Bathroom Shower/Tub: Walk-in shower, Main level (3 threshold to enter) Bathroom Toilet: Raised, Main level Bathroom Equipment: Grab bars in shower, Hand-held showerhead, Shower chair, Bedside commode, Toilet seat capacity analyst (toilet safety frame) Mobility Equipment: Cane, Wheeled walker, Rollator (Spare bed has adjustable features (their specific bed is not adjustable)) ADL Equipment: (none) Additional Objective Details - Home Living: Pt was standing to shower prior to admit. All information verified with spouse who is present during session. Pt with incorrect responses at times with self-report of home setup. 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 For complete objective data, detailed plan of care and patient education refer to: PT EVALUATION flowsheet, PT TREATMENT flowsheet, patient Plan of Care, Plan of Care progress note, and Patient Education. PM&R Progress note ASSESSMENT/PLAN: A: Gracie Lemons continues to demonstrate impairments and medical need appropriate for comprehensive acute inpt rehab T7/T8 discectomy 2/2 thoracic spinal stenosis - Continue Ibuprofen prn pain - Do not order Tylenol based on allergy - Flexeril scheduled for muscle spasms- made prn 03/29 due to increased fatigue - Transferred to [facility] 03/23 - Initiate PT/OT for ADLs, transfers and ambulation RLE weakness - Likely 2/2 plexopathy due to positioning during surgery - Continue PT/OT - Consider CT head if other stroke like symptoms occur 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 instability for the last 2 years - Noted masked facies, shuffling gait, tremors, bradykinesia - Low dose Sinemet ordered 03/25 - Increased Sinemet to 1 tab at lunch and 0.5 tabs with breakfast and dinner- can continue to increase as needed - Sinemet increased to 1 tab TID 04/01 RAFAEL - Patient uses CPAP at home, family to bring in machine Dementia - Continue Donepezil HTN - Continue Lisinopril, Metoprolol - Blood pressure parameters put in place for hypotension - Lisinopril decreased 03/26 for hypotension - Lisinopril decreased 03/29 for hypotension - Lisinopril stopped 04/02 due to continued hypotension Hyperthyroidism - Continue Levothyroxine GERD - Continue Pantoprazole HLD - Continue Atorvastatin, Zetia 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 He denies any sede effects from the increased Sinemet dose started yesterday. He reports that he slept well. He denies any CP or SOB. He had a BM yesterday. He denies any abdominal pain. Review of systems: No cp, SOA, n/v/d. Temp: [97.8 F (36.6 C)-98 F (36.7 C)] 98 F (36.7 C) Heart Rate: [78-109] 109 Resp: [16] 16 BP: (99-116)/(63-78) 116/78 Physical Exam: General Appearance: In no apparent distress, well nourished HEENT: Normocephalic, atraumatic, neck supple, EOMI, PER Respiratory: On room air, no respiratory distress Cardiovascular: Peripheral pulses palpable, no edema Abdomen: Nontender, nondistended Musculoskeletal: No acute injury or gross deformity, 4+/5 R shoulder flexion, 5/5 L shoulder flexion Skin: No rashes visualized, normal paplaption of skin and soft tissues Psychiatric: Normal mood and affect, appropriate insight and judgement Therapy Assessments: Assessments per PT, OT, ST documentation (last filed value): Home Living Type of Home: House (03/24/251028) Home Layout: One level (laundry on main floor. Does not need to go to basement.) (03/24/25 102) Bathroom Shower/Tub: Walk-in shower, Main level (3 threshold to enter) (03/24/25 102) Bathroom Toilet: Raised, Main level (03/24/25 102) Bathroom Equipment: Grab bars in shower, Hand-held showerhead, Shower chair, Bedside commode, Toilet seat capacity analyst (toilet safety frame) (03/24/25 102) Bathroom Accessibility: (not recorded) Mobility Equipment: Cane, Wheeled walker, Rollator (Spare bed has adjustable features (their specific bed is not adjustable)) (03/24/25 102) Additional Objective Details - Home Living: Pt was standing to shower prior to admit. All information verified with spouse who is present during session. Pt with incorrect responses at times with self-report of home setup. 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 Spouse reports every now and then she would make pt use the WW if more unsteady that day. Pt did not ambulate in community (stayed in car when going to store, etc); spouse reports his legs would get tired easily.Spouse does indoor IADLs and patient was doing yardwork/mowing. Pt injured R shoulder ~2 months ago (had started physical therapy) - spouse reporting it was a chronic RTC tear from MRI. Son and DIL live next door and had taken over barn chores. Spouse was handling the finances and meds for patient. (03/24/25 102) Current Level of Function Balance: Sitting Balance - Static: Supervision or Touching Assistance (SBA) (03/27/25 0730) Sitting Balance - Dynamic: Supervision or Touching Assistance (CGA) (03/27/25 0730) Standing Balance - Static: Partial/Moderate Assistance, with unilateral LUE support, with unilateral RUE support (CGA-min) (04/01/25 1300) Standing Balance - Dynamic: Partial/Moderate Assistance, with unilateral LUE support, with unilateral RUE support (Min) (04/01/25 1300) Bed Mobility: Roll Left and Right: Supervision or Touching Assistance (CGA) (03/27/25 0730) Lying to Sitting on Side of Bed: Partial/Moderate Assistance (Min) (04/01/25 1300) Sit to Lying: Partial/Moderate Assistance, Head of bed elevated (Min) (04/01/25 1300) Transfers: Sit to Stand: Supervision or Touching Assistance (CGA) (04/01/25 1300) Bed to Chair: Partial/Moderate Assistance (CGA-min) (04/01/25 1300) Stand Pivot Transfers: Partial/Moderate Assistance (CGA-min) (04/01/25 1300) Squat Pivot Transfers: (not recorded) Book Cleaner: wheeled walker (04/01/25 1300) Gait/Locomotion: Gait Assistance: Partial/Moderate Assistance (CGA-min) (04/01/25 1300) Assistive Device: wheeled walker (04/01/25 1300) Distance: 70 Feet (04/01/25 1300) Pattern: R impaired heel strike, L impaired heel strike, R decreased step length, L decreased step length (04/01/25 1300) Weight Bearing Status: able to maintain (03/27/25 0730) ADL & IADL Feeding: (not recorded) Meal Prep: (not recorded) Grooming: Supervision or Touching Assistance (min A) (04/01/25 09) Upper Body Bathing: Supervision or Touching Assistance (SBA) (04/01/25914) Lower Body Bathing: Partial/Moderate Assistance, Use of adaptive equipment (min-mod A) (04/01/25 09) Upper Body Dressing: Partial/Moderate Assistance (mod A with spouse assisting) (04/01/25 09) Lower Body Dressing: Partial/Moderate Assistance, Use of adaptive equipment (mod A) (04/01/25 09) Toileting: Partial/Moderate Assistance, Substantial/Maximal Assistance (Mod A (clothing management), max A (hygiene)) (03/31/25 1017) Speech Therapy Speech Functional Diagnosis: CVA: (not recorded) Speech/Language (Unrelated to CVA): (not recorded) Cognition (Unrelated to CVA): R41.840 Attention and concentration deficit., R41.841 Cognitive communication deficit. (03/24/25 1325) Dysphagia (Unrelated to CVA): (not recorded) Voice (Unrelated to CVA): (not recorded) Inpatient Rehab Physical Therapy - Daily Progress Note PT Time Calculation Start Time: 914 Stop Time: 1014 Time Calculation (min): 60 min PT Individual Therapy Min: 60 Family/caregiver training and education provided this date with patient's spouse, Idalia. In doing so, the patient and caregiver(s) were trained in functional transfers, ambulation, and stair/curb negotiation with emphasis on safe handling, use of gait belt, appropriate use of assistive device, and necessary verbal/tactile/visual cueing. Following education, family/caregivers demonstrate and verbalize adequate understanding for safe home going. Continued practice and skill acquisition would be beneficial as able. Therapy Precautions Orthotic Devices: No Weight Bearing Status: WFL General Rehab Precautions: Fall Risk, Back Balance Standing Balance - Static: Partial/Moderate Assistance (CGA to Min Ax1) Book Cleaner - Standing Static: wheeled walker Loss of Balance- Standing Static: intermittent Standing Balance - Dynamic: Partial/Moderate Assistance (CGA to Min Ax1) Book Cleaner - Standing Dynamic: wheeled walker Loss of Balance- Standing Dynamic: intermittent Transfers Sit to Stand: Supervision or Touching Assistance (CGA) Stand Pivot Transfers: Supervision or Touching Assistance (CGA) Book Cleaner: wheeled walker Skilled Intervention Provided: verbal cues, facilitation, monitoring patient response with activity, monitoring patient response with positional changes, provided step by step instructions, patient education For: UE positioning, activity tolerance, attention to task, controlled descent, improved balance, initiation of task, safety during functional tasks, safe use of AD and/or equipment, self-monitoring during activity, sequencing of movement Resulting in: good carryover of cues, improved activity tolerance, improved performance, improved functional independence, increased self-management of symptoms and impairments, increased upright tolerance for functional tasks, decreased assistance required, decreasing fall risk, decreased reliance on device/support Skilled Intervention: Pt tasked to complete repeated STS from unit lobby couch to FWW simulating needs at discharge (from lower surface height with soft seated surface) 3x5. Pt needing occ verbal cues for sequencing and safety with empahsis on hand placement, upright posturing/gaze, control/management of device, as well as slow controlled descent to seated surfaces. Gait/Locomotion Gait Assistance: Partial/Moderate Assistance (CGA to occ Min Ax1) Assistive Device: wheeled walker Distance: 80 Feet (over even surface with 2 turns) Pattern: step through, R impaired heel strike, L impaired heel strike, R decreased step length, L decreased step length, over reliance on upper extremities, forward flexed, decreased trunk rotation, shuffle, decreased zenon (steps per minute) Gait Loss(es) of Balance: intermittent Environment/Terrain: open/community environment, multiple distractions Skilled Intervention Provided: verbal cues, facilitation, monitoring patient response with activity, caregiver/family education with patient involvement For: activity tolerance, attention to task, device management and safe use of device, gait sequence, gait technique, improved balance, improved posture, initiation of task, self-monitoring during activity Resulting in: good carryover of cues, improved activity tolerance, improved awareness of gait impairments, improved caregiver/family awareness, improved caregiver/family safety, improved functional independence, improved performance, improved safety, increased self-management of symptoms and impairments, increased upright tolerance for functional tasks, decreased assistance required, decreasing fall risk, decreased gait impairments Skilled Intervention: Pt ambulates over even/level surface type with multiple direction changes in busy hallway with multiple distractions and obstacles to avoid. Pt completes ambulation following recumbent bike and stair/curb training this date to practice task when fatigued (as required of mobility at discharge at times). Pt demos occ R knee buckling needing up to Min Ax1 for stability and safety. Pt's spouse present and particiaptes in hands-on training ambulating with pt following instruction and education. Curb Step Curb Step Assistance: Partial/Moderate Assistance (Min Ax1) Assistive Device: wheeled walker Curbs/Ramps Technique: forwards Skilled Intervention Provided: verbal cues, tactile cues, demonstration, facilitation, monitoring patient response with activity, provided step by step instructions, patient education, caregiver/family education with patient involvement For: activity tolerance, attention to task, device adjustment fit to patient, device management and safe use of device, initiation of task, self-monitoring during activity, curb sequence/ technique Resulting in: improved activity tolerance, improved caregiver/family awareness, improved caregiver/family safety, improved functional independence, improved performance, improved safety, decreased assistance required, decreasing fall risk Skilled Intervention: Following instruction and demonstration on optimal performance and seqencing of curb step negotiation, pt ascends and descends 6 inch curb x2 trials. Needing Min Ax1 for stability and safety. Verbal cues provided for sequencing and coordination of movement. Pt's spouse present and particiaptes in hands-on training neogtiating steps with pt following instruction and education. Stair Management Stair Management Assistance: Partial/Moderate Assistance (CGA to Min Ax1) Assistive Device: BUE Stair Management Technique: two rails, step-to pattern, forwards Number of Stairs: 4 (6 inch) Skilled Intervention Provided: verbal cues, facilitation, monitoring patient response with activity, provided step by step instructions, caregiver/family education with patient involvement For: activity tolerance, attention to task, self-monitoring during activity, stairs sequence/technique Resulting in: improved activity tolerance, improved functional independence, improved caregiver/family awareness, improved caregiver/family safety, increased insight into deficits, improved performance, improved safety, decreased assistance required Skilled intervention: Pt negotiates steps with 2 HR per needs at discharge. Requires verbal cues for sequencing and safety awareness. Pt's spouse present and particiaptes in hands-on training neogtiating steps with pt following instruction and education. Exercise Skilled Intervention Provided: verbal cues, instruction on proper technique/alignment For: achieving full ROM as tolerated, frequency of exercise(s), muscle activation, number of repetitions Resulting in: improved activity tolerance, improved functional strength/ROM Skilled Intervention: Recumbent bike for 10 min on L2 to improve bilat LE strength, ROM, and functional activity tolerance. Avg 115-130 steps/min and 1100 total steps. Home Living Obtained Home Living and PLOF info from: Patient, Patient s family member Unable to obtain Home Living and PLOF info on initial eval: Patient is a questionable historian Lives With: Spouse (Idalia) Type of Home: House Home Layout: One level (laundry on main floor. Does not need to go to basement.) Rails on inside stairs: 2 rails Number of stairs inside home: 16 Steps to enter home: Yes Rails to enter home: 1 rail, L rail going up (+ bilateral grab bars on doorframe) Number of stairs to enter home: 3 Bathroom Shower/Tub: Walk-in shower, Main level (3 threshold to enter) Bathroom Toilet: Raised, Main level Bathroom Equipment: Grab bars in shower, Hand-held showerhead, Shower chair, Bedside commode, Toilet seat capacity analyst (toilet safety frame) Mobility Equipment: Cane, Wheeled walker, Rollator (Spare bed has adjustable features (their specific bed is not adjustable)) ADL Equipment: (none) Additional Objective Details - Home Living: Pt was standing to shower prior to admit. All information verified with spouse who is present during session. Pt with incorrect responses at times with self-report of home setup. 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 For complete objective data, detailed plan of care and patient education refer to: PT EVALUATION flowsheet, PT TREATMENT flowsheet, patient Plan of Care, Plan of Care progress note, and Patient Education. Inpatient Rehab Physical Therapy - Daily Progress Note PT Time Calculation Start Time: 1300 Stop Time: 1430 Time Calculation (min): 90 min PT Individual Therapy Min: 90 Therapy Precautions Orthotic Devices: No Weight Bearing Status: WFL General Rehab Precautions: Fall Risk, Back Balance Standing Balance - Static: Partial/Moderate Assistance, with unilateral LUE support, with unilateral RUE support (CGA-min) Book Cleaner - Standing Static: wheeled walker (None) Loss of Balance- Standing Static: intermittent Standing Balance - Dynamic: Partial/Moderate Assistance, with unilateral LUE support, with unilateral RUE support (Min) Book Cleaner - Standing Dynamic: wheeled walker Loss of Balance- Standing Dynamic: intermittent Standing Balance Treatment: reaching across midline, reaching outside base of support Skilled Intervention Provided: neuromuscular re-education For: activity tolerance, balance recovery, fall prevention, improved balance Resulting in: improved activity tolerance, improved balance reactions, improved motor control Skilled Intervention: Pt performs static standing with feet apart, and then feet together to challenge static standing balance. Pt is unsteady with narrow MARK needing intermittent min. Pt performs standing reaching outside MARK in all directions to challenge standing balance. Pt reaches with each UE but requires 1 UE support on walker for balance when reaching. Intermittent min needed for balance with reaching. Pt performs 2x1 min standing reaching trials. Bed Mobility Lying to Sitting on Side of Bed: Partial/Moderate Assistance (Min) Sit to Lying: Partial/Moderate Assistance, Head of bed elevated (Min) Book Cleaner: (None) Skilled Intervention Provided: verbal cues, facilitation For: activity tolerance, UE positioning, safety during functional tasks, sequencing of movement Resulting in: improved activity tolerance, improved functional independence, improved performance Skilled Intervention: Min needed for UE/trunk support for supine to sitting transfer to EOB. Min needed for trunk support, and for assistance with LEs when transferring sitting to supine. Transfers Sit to Stand: Supervision or Touching Assistance (CGA) Bed to Chair: Partial/Moderate Assistance (CGA-min) Stand Pivot Transfers: Partial/Moderate Assistance (CGA-min) Book Cleaner: wheeled walker Skilled Intervention Provided: verbal cues For: activity tolerance, controlled descent, safety during functional tasks Resulting in: improved activity tolerance, improved functional independence, improved performance Skilled Intervention: CGA needed for standing from seated. CGA-min provided for stand pivot transfers for balance and safety. Pts assists with transfers this session. Verbal cues for slow descent with stand to sit transfers for safety. Functional Transfers Car Transfers: Partial/Moderate Assistance (CGA-min) Book Cleaner: wheeled walker Skilled Intervention Provided: verbal cues For: UE positioning, activity tolerance, controlled descent, safety during functional tasks, sequencing of movement Resulting in: improved activity tolerance, improved performance, improved functional independence, improved caregiver/family awareness, improved caregiver/family safety Skilled Intervention: Pts provided CGA-min for safety with car transfer. Verbal cues needed for UE placement and technique throughout. Gait/Locomotion Gait Assistance: Partial/Moderate Assistance (CGA-min) Assistive Device: wheeled walker Distance: 70 Feet Additional Gait Trial 2: Yes Gait Assistance Trial 2: Partial/Moderate Assistance (CGA-min) Assistive Device Trial 2: wheeled walker Distance Trial 2: 103 Pattern: R impaired heel strike, L impaired heel strike, R decreased step length, L decreased step length Gait Loss(es) of Balance: intermittent Environment/Terrain: open/community environment, multiple distractions Skilled Intervention Provided: verbal cues For: activity tolerance, gait technique, improved posture, LE management Resulting in: improved activity tolerance, improved functional independence, improved performance, improved caregiver/family awareness, improved caregiver/family safety Skilled Intervention: Pts provided CGA-min for gait training this session. Verbal cues for posture, and focus on knee stability with gait training. Stair Management Stair Management Assistance: Partial/Moderate Assistance (Min-mod) Assistive Device: BUE Stair Management Technique: two rails, step-to pattern, forwards Number of Stairs: 2 (6 inch) Skilled Intervention Provided: verbal cues For: activity tolerance, stairs sequence/technique Resulting in: improved activity tolerance, improved performance Skilled intervention: Min-mod needed for standing balance and safety with stair training. Verbal cues to take increased time and focus on foot placement. Exercise Supine Exercises: Pt performs lesly leg press to improve LE strength and knee stability. Pt performs 4 sets of 20 reps at 10,15,20,20 degree inclines. Verbal cues for hip alignment, and eccentric control. Seated Exercises: Ankle pumps, LAQs, marching, hip abd/add with resistance, and HS curls with resistance to improve LE strength. Skilled Intervention Provided: verbal cues, instruction on proper technique/alignment For: achieving full ROM as tolerated, frequency of exercise(s), muscle activation, number of repetitions Resulting in: improved activity tolerance, improved functional strength/ROM Skilled Intervention: Recumbent bike for 10 min on level 1 resistance to improve LE strength, LE recirpocal motion, and functional endurance. Home Living Obtained Home Living and PLOF info from: Patient, Patient s family member Unable to obtain Home Living and PLOF info on initial eval: Patient is a questionable historian Lives With: Spouse (Idalia) Type of Home: House Home Layout: One level (laundry on main floor. Does not need to go to basement.) Rails on inside stairs: 2 rails Number of stairs inside home: 16 Steps to enter home: Yes Rails to enter home: 1 rail, L rail going up (+ bilateral grab bars on doorframe) Number of stairs to enter home: 3 Bathroom Shower/Tub: Walk-in shower, Main level (3 threshold to enter) Bathroom Toilet: Raised, Main level Bathroom Equipment: Grab bars in shower, Hand-held showerhead, Shower chair, Bedside commode, Toilet seat capacity analyst (toilet safety frame) Mobility Equipment: Cane, Wheeled walker, Rollator (Spare bed has adjustable features (their specific bed is not adjustable)) ADL Equipment: (none) Additional Objective Details - Home Living: Pt was standing to shower prior to admit. All information verified with spouse who is present during session. Pt with incorrect responses at times with self-report of home setup. 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 For complete objective data, detailed plan of care and patient education refer to: PT EVALUATION flowsheet, PT TREATMENT flowsheet, patient Plan of Care, Plan of Care progress note, and Patient Education. Cosigned by Aston Turk, PT at 04/01/2025 3:51 PM EDT PM&R Progress note ASSESSMENT/PLAN: A: Gracie Lemons continues to demonstrate impairments and medical need appropriate for comprehensive acute inpt rehab T7/T8 discectomy 2/2 thoracic spinal stenosis - Continue Ibuprofen prn pain - Do not order Tylenol based on allergy - Flexeril scheduled for muscle spasms- made prn 03/29 due to increased fatigue - Transferred to IRF 03/23 - Initiate PT/OT for ADLs, transfers and ambulation RLE weakness - Likely 2/2 plexopathy due to positioning during surgery - Continue PT/OT - Consider CT head if other stroke like symptoms occur 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 instability for the last 2 years - Noted masked facies, shuffling gait, tremors, bradykinesia - Low dose Sinemet ordered 03/25 - Increased Sinemet to 1 tab at lunch and 0.5 tabs with breakfast and dinner- can continue to increase as needed - Sinemet increased to 1 tab TID 04/01 RAFAEL - Patient uses CPAP at home, family to bring in machine Dementia - Continue Donepezil HTN - Continue Lisinopril, Metoprolol - Blood pressure parameters put in place for hypotension - Lisinopril decreased 03/26 for hypotension - Lisinopril decreased 03/29 for hypotension Hyperthyroidism - Continue Levothyroxine GERD - Continue Pantoprazole HLD - Continue Atorvastatin, Zetia 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 He feels like his R leg has gotten stronger. He denies any new LE paresthesias. He had a few episodes of diarrhea yesterday. He denies any abdominal pain. Review of systems: No cp, SOA, n/v/d. Temp: [97.9 F (36.6 C)-98 F (36.7 C)] 98 F (36.7 C) Heart Rate: [86-98] 86 Resp: [16-18] 16 BP: (108-119)/(72-82) 118/72 Physical Exam: General Appearance: In no apparent distress, well nourished HEENT: Normocephalic, atraumatic, neck supple, EOMI, PER Respiratory: On room air, no respiratory distress Cardiovascular: Peripheral pulses palpable, no edema Abdomen: Nontender, nondistended Musculoskeletal: No acute injury or gross deformity, 4/5 R hip flexion, 5/5 L hip flexion Skin: No rashes visualized, normal paplaption of skin and soft tissues Psychiatric: Normal mood and affect, appropriate insight and judgement Therapy Assessments: Assessments per PT, OT, ST documentation (last filed value): Home Living Type of Home: House (03/24/25 102) Home Layout: One level (laundry on main floor. Does not need to go to basement.) (03/24/25 102) Bathroom Shower/Tub: Walk-in shower, Main level (3 threshold to enter) (03/24/25 102) Bathroom Toilet: Raised, Main level (03/24/25 102) Bathroom Equipment: Grab bars in shower, Hand-held showerhead, Shower chair, Bedside commode, Toilet seat capacity analyst (toilet safety frame) (03/24/25 102) Bathroom Accessibility: (not recorded) Mobility Equipment: Cane, Wheeled walker, Rollator (Spare bed has adjustable features (their specific bed is not adjustable)) (03/24/25 1029) Additional Objective Details - Home Living: Pt was standing to shower prior to admit. All information verified with spouse who is present during session. Pt with incorrect responses at times with self-report of home setup. 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 Spouse reports every now and then she would make pt use the WW if more unsteady that day. Pt did not ambulate in community (stayed in car when going to store, etc); spouse reports his legs would get tired easily.Spouse does indoor IADLs and patient was doing yardwork/mowing. Pt injured R shoulder ~2 months ago (had started physical therapy) - spouse reporting it was a chronic RTC tear from MRI. Son and DIL live next door and had taken over barn chores. Spouse was handling the finances and meds for patient. (03/24/25 102) Current Level of Function Balance: Sitting Balance - Static: Supervision or Touching Assistance (SBA) (03/27/25 0730) Sitting Balance - Dynamic: Supervision or Touching Assistance (CGA) (03/27/25 0730) Standing Balance - Static: Partial/Moderate Assistance (CGA to Min Ax1) (03/31/25 1115) Standing Balance - Dynamic: Partial/Moderate Assistance (Min Ax1) (03/31/25 1115) Bed Mobility: Roll Left and Right: Supervision or Touching Assistance (CGA) (03/27/25 0730) Lying to Sitting on Side of Bed: Supervision or Touching Assistance (SBA) (03/31/25 0802) Sit to Lying: Partial/Moderate Assistance, Head of bed elevated (Mod) (03/30/25 0735) Transfers: Sit to Stand: Supervision or Touching Assistance (CGA) (03/31/25 1115) Bed to Chair: (not recorded) Stand Pivot Transfers: Partial/Moderate Assistance (CGA to Min Ax1) (03/31/25 1115) Squat Pivot Transfers: (not recorded) Book Cleaner: wheeled walker (03/31/25 1115) Gait/Locomotion: Gait Assistance: Partial/Moderate Assistance (CGA to occ Min Ax1) (03/31/25 111) Assistive Device: wheeled walker (03/31/25 1115) Distance: 70 Feet (over even surface) (03/31/25 111) Pattern: R impaired heel strike, L impaired heel strike, R decreased step length, L decreased step length, over reliance on upper extremities, shuffle, decreased zenon (steps per minute) (03/31/25 1115) Weight Bearing Status: able to maintain (03/27/25 0730) ADL & IADL Feeding: (not recorded) Meal Prep: (not recorded) Grooming: Supervision or Touching Assistance (setup seated in w/c to wash hands post toileting) (03/31/25 1017) Upper Body Bathing: Partial/Moderate Assistance (Min) (03/24/25 1029) Lower Body Bathing: Dependent and/or 2 Person Assist (03/24/25 1029) Upper Body Dressing: Partial/Moderate Assistance (mod A seated EOB) (03/25/25 0700) Lower Body Dressing: Partial/Moderate Assistance (modA) (03/27/25 1120) Toileting: Partial/Moderate Assistance, Substantial/Maximal Assistance (Mod A (clothing management), max A (hygiene)) (03/31/25 1017) Speech Therapy Speech Functional Diagnosis: CVA: (not recorded) Speech/Language (Unrelated to CVA): (not recorded) Cognition (Unrelated to CVA): R41.840 Attention and concentration deficit., R41.841 Cognitive communication deficit. (03/24/25 1325) Dysphagia (Unrelated to CVA): (not recorded) Voice (Unrelated to CVA): (not recorded) Inpatient Rehab Occupational Therapy - Daily Progress Note OT Time Calculation Start Time: 0915 Stop Time: 1045 Time Calculation (min): 90 min OT Individual Therapy Min: 90 Pt spouse present during therapy session for caregiver training and assisting during therapy shower, functional transfers and functional mobility. Spouse providing appropriate cueing for pt to increase safety during mobility/transfers. Therapy Precautions Orthotic Devices: No Weight Bearing Status: WFL General Rehab Precautions: Back, Fall Risk Cognition Overall Cognitive Status: Impaired Arousal/Alertness: Appropriate responses to stimuli Orientation Level: Oriented X4 Executive functioning: Insight Safety Judgment: Decreased awareness of need for safety Problem Solving: Assistance required to identify errors made, Assistance required to generate solutions Attention: Attends to quiet environment, Attends to distracted environment Hearing Status: WFL Social Interaction: Cooperative ADL Grooming: Supervision or Touching Assistance (min A) Grooming - Skilled Intervention Provided: facilitation, monitored patient's safety and tolerance, caregiver/family education with patient involvement Grooming - For: efficient movement, activity tolerance Grooming - Resulting In: improved caregiver/family awareness, improved performance with ADLs, improved functional independence, improved caregiver/family safety Skilled Intervention: Pt washing face and hair seated on shower bench with spouse assisting min A to thoroughly rinse hair. Pt combed hair seated post shower after setup at sink. Upper Body Bathing: Supervision or Touching Assistance (SBA) Lower Body Bathing: Partial/Moderate Assistance, Use of adaptive equipment (min-mod A) Shower/Bathe- Skilled Intervention Provided: verbal cues, facilitation, monitored patient's safety and tolerance, caregiver/family education with patient involvement Shower/Bathe- For: efficient movement, fall prevention, self-monitoring, compensatory strategies, adaptive equipment use, weight shifting, task simplification/modification Shower/Bathe- Resulting In: improved activity tolerance, improved caregiver/family safety, improved caregiver/family awareness, improved safety, improved performance with ADLs, improved participation in ADL task Skilled Intervention: Pt spouse assisting during therapy shower for caregiver training. Educated on having pt remain seated during shower to maximize safety and decrease risk of falls. Encouraged pt to complete task as independently as possible. Spouse assisted with setup of soap on wash clothe. UB bathing SBA for rinsing. LB bathing min A for thoroughness of LE and buttock. Pt utilizing LH sponge for distal LE as needed. Pt having difficulty weight shifting while seated for spouse to assist in posterior perineal area. Educated to wait until post shower to stand for buttock. Pt stood at FWW with grab bar and required CGA for washing buttock. Upper Body Dressing: Partial/Moderate Assistance (mod A with spouse assisting) Upper Body Dressing - Skilled Intervention Provided: facilitation, monitored patient's safety & tolerance, caregiver/family education with patient involvement Upper Body Dressing - For: activity tolerance, efficient movement, compensatory strategies, self-monitoring Upper Body Dressing - Resulting In: improved caregiver/family safety, improved caregiver/family awareness Lower Body Dressing: Partial/Moderate Assistance, Use of adaptive equipment (mod A) Lower Body Dressing - Skilled Intervention Provided: verbal cues, facilitation, monitored patient's safety & tolerance, caregiver/family education with patient involvement Lower Body Dressing - For: adaptive equipment use, compensatory strategies, efficient movement, fall prevention Lower Body Dressing - Resulting In: improved functional independence, improved performance with ADLs, improved participation in ADL task, improved caregiver/family awareness, improved caregiver/family safety Skilled Intervention: Pt doffed briefs with min A plus CGA for balance. Pt donned pullups with min A for threading right foot using handkerchief sample clerk. Donned pants with min A with spouse assisting for threading with handkerchief sample clerk. Hiked brief and pants up over hips with mod A with spouse assisting to complete task. Putting On/Taking Off Footwear: Dependent and/or 2 Person Assist, Use of adaptive equipment, Increased time to complete (Dependent for compression stockings (spouse educated on techinque, reports has experience with compression stockings). Doffed socks SBA using handkerchief sample clerk. Donned socks using sock aid min A) Putting On/Taking Off Footwear - Skilled Intervention: facilitation, monitored patient's safety & tolerance, patient education, caregiver/family education with patient involvement Putting On/Taking Off Footwear - For: adaptive equipment use, compensatory strategies Putting On/Taking Off Footwear - Resulting In: improved activity tolerance, improved caregiver/family safety, improved caregiver/family awareness, improved participation in ADL task, improved performance with ADLs Functional Mobility Functional Mobility: Supervision or Touching Assistance, Use of adaptive equipment (CGA using FWW for balance) Functional Mobility - Distance: Bedroom/Bathroom Disance Skilled Intervention: Pt spouse assisting pt during functional mobility for caregiver training. Pt requiring CGA for safe balance using FWW to ambulate to shower from room. Educated spouse on gait belt use and hand placement with good carryover from PT session. IADL Bed Mobility Functional Transfers Sit to Stand: Supervision or Touching Assistance (CGA-min A) Shower Transfers: Grab bars, Use of adaptive equipment, Partial/Moderate Assistance (min A) Book Cleaner: wheeled walker Skilled Intervention Provided: facilitation, monitoring patient response with activity, verbal cues, caregiver/family education with patient involvement For: UE positioning, activity tolerance, efficient movement, fall prevention, controlled descent, safe use of AD and/or equipment, safety during functional task(s) Resulting In: improved activity tolerance, improved caregiver/family awareness, improved caregiver/family safety, improved performance, improved safety Skilled Intervention: Pt spouse assisting with transfers for caregiver training. Min cueing with spouse instructing pt on safe hand placement during transfers and to reach back for controlled descent to surfaces. Pt requires CGA-min A for transfers. Pt transferred to shower bench via extrended tub bench style to simulate setup at home using extended tub bench in shower to allow for increased safety due to lip of shower. Exercise Seated Exercises: Pt participated in UE exercises to increase strength and ROM. Tolerated Elbow flex/ext: x 20 with 3# dowel dhruv. Wrist flex/ext: x 20 with 3# dowel dhruv. Pt performed shoulder planes initially with 2# dowel dhruv, decreased to 1# dowel dhruv to focus on appropriate plane of movement for right UE. Tolerated Shoulder flex/ext 1 x 15 with 1# dowel dhruv with goal to keep dhruv level between UEs. Transitioned to left UE strengthening with red theraband x 15 reps for shoulder flex/ext, shoulder diagonals, bicep curl and tricep press. Pt completing bicep curl and tricep press with right UE x 20 using red t-band. Skilled intervention provided: verbal cues, facilitation, instruction on proper technique/alignment, monitoring patient response with exercise, patient education, demonstration For: achieving full ROM as tolerated, proper positioning of extremity, self-monitoring during activity, number of repetitions Resulting In: efficient movement, improved functional strength/ROM Balance Treatment Standing Balance - Static: Supervision or Touching Assistance, with unilateral LUE support, 3+ to 5 minutes (CGA) Book Cleaner - Standing Static: (elevated tabletop) Loss of Balance- Standing Static: (none) Standing Balance - Dynamic: Partial/Moderate Assistance, with unilateral LUE support, with device, 1+ to 3 minutes, 3+ to 5 minutes (CGA) Book Cleaner - Standing Dynamic: wheeled walker Loss of Balance- Standing Dynamic: (none) Skilled Intervention Provided: facilitation, verbal cues For: compensatory strategies, activity tolerance, fall prevention, efficient movement, safe use of AD and/or equipment, self-monitoring during activity Resulting in: improved activity tolerance, improved performance, improved safety, improved caregiver/family awareness Skilled Intervention: Pt participated in standing at elevated tabletop to complete task requiring pt to retrieve and place pins into board with CGA for balance with vc/tc for postural adjustments to increase upright stance and prevent buckling. Pt tolerated standing x 4:30 minutes for task. Pt participated in item retrieval and transportation activity requiring pt to ambulate with FWW to retrieve oneil bags from ground. Educated on safe technique using handkerchief sample clerk to retrieve items and place in walker bag. Cued for positioning of walker and handkerchief sample clerk placement when ambulating. Completed task with CGA-min A for safe balance with x 1 seated rest break due to fatigue with cueing to recognize LE fatigue. Interventions Visual/Perceptual Training: Eye-hand coordination Fine Motor Training: Peg board Home Living Obtained Home Living and PLOF info from: Patient, Patient s family member Unable to obtain Home Living and PLOF info on initial eval: Patient is a questionable historian Lives With: Spouse (Idalia) Type of Home: House Home Layout: One level (laundry on main floor. Does not need to go to basement.) Rails on inside stairs: 2 rails Number of stairs inside home: 16 Steps to enter home: Yes Rails to enter home: 1 rail, L rail going up (+ bilateral grab bars on doorframe) Number of stairs to enter home: 3 Bathroom Shower/Tub: Walk-in shower, Main level (3 threshold to enter) Bathroom Toilet: Raised, Main level Bathroom Equipment: Grab bars in shower, Hand-held showerhead, Shower chair, Bedside commode, Toilet seat capacity analyst (toilet safety frame) Mobility Equipment: Cane, Wheeled walker, Rollator (Spare bed has adjustable features (their specific bed is not adjustable)) ADL Equipment: (none) Additional Objective Details - Home Living: Pt was standing to shower prior to admit. All information verified with spouse who is present during session. Pt with incorrect responses at times with self-report of home setup. 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 For complete objective data, detailed plan of care and patient education refer to: OT EVALUATION flowsheet, OT TREATMENT flowsheet, patient Plan of Care, Plan of Care progress note, and Patient Education. Cosigned by Aline Head OT at 04/01/2025 3:35 PM EDT Inpatient Rehab Speech Language Pathology - Discharge Summary Discharge Destination: TBD Date of Discharge: 04/07/25 (DC from speech caseload 03/31/25) Goals: Problem: Cognition - Impaired Goal: ST- STG O-Log Description: ST O-Log - Patient will score a 25 or above on two separate administrations of the O-Log. Outcome: Met Goal: ST- STG Memory- memory strategies Description: ST Memory - Patient will complete memory tasks with the use of memory strategies with 80% accuracy and minimal cues. Outcome: Met Note: Pt completed immediate and short term recall via recall of 12 pictured items w/use of grouping and repetition strategies w/83% acc w/mod I for immediate recall (and benefited from min A semantic cueing to increase acc to 100%) and 100% acc w/mod I following a 5 min delay w/a distractor. Pt completed immediate and working memory via word list retention category inclusion w/word lists of 3 and 4 w/100% acc w/mod I. Pt completed immediate and short term recall via recall of hypothetical Drs appointments w/66% acc w/mod I for immediate recall and 88% acc w/mod I for delayed recall of 5 min w/a distractor and benefited from min A semantic cueing to increase acc to 100%. Goal: ST- STG Problem Solving- verbal problem solving Description: ST Problem Solving - Patient will complete basic problem solving, reasoning, safety awareness, and attention tasks with 80% accuracy and min cues. Outcome: Met Note: Pt completed problem solving, reasoning, attention and safety awareness via problem solving missing equipment task w/100% acc w/mod I. Pt completed problem solving, reasoning and attention via story inferencing task w/92% acc w/mod I and benefited from supervision A logical cueing to increase acc to 100%. Pt completed problem solving, reasoning, attention and organization via answering questions re: a calendar of events w/88% acc w/mod I and benefited from supervision A logical cueing to increase acc to 100%. Pt completed problem solving, reasoning, and attention via answering questions re: a newspaper article w/100% acc w/mod I Goal: ST- STG Executive Function- sequencing/organization/planning Description: ST Executive Function - Patient will complete basic sequencing, planning, and organizing tasks with 80% accuracy and min cues. Outcome: Met Note: Pt completed sequencing, reasoning, organizing, attention and planning via sequencing 4 step written tasks w/64% acc w/mod I and benefited from min A semantic cueing to increase acc to 100%. Pt completed organizing, planning, and reasoning via writing events on a monthly calendar w/70% acc w/mod I and benefited from min A logical cueing to identify errors. Following identification of errors, pt independently corrected errors. Goal: ST- LTG Executive Function- sequencing/organization/planning Description: ST Executive Function - Patient will demonstrate improved cognitive linguistic abilities to aid in safe return to independence w/ADLs at DC home Outcome: Met Note: Pt admitted to IPR s/p discectomy. Pt participated in skilled cognitive tx throughout admission. At [place], pt presents w/improved cognitive linguistic abilities in the areas of orientation, memory, problem solving and executive functioning. Pt completes all tasks w/mod I-min A logical cueing. Per pt and spouse, pt is back to cognitive baseline. At [place], rx 24 hour supervision, total assist w/meds/finances as is baseline, and refrain from driving until cleared by MD/treatment team. No further skilled SLC tx warranted at this time as pt is functioning at baseline. Past Medical History: Diagnosis Date Coronary artery disease Diabetes mellitus (HCC) Disease of thyroid gland Hypertension Pulmonary fibrosis, unspecified (HCC) Stroke (HCC) Past Surgical History: Procedure Laterality Date BACK SURGERY BRAIN SURGERY EYE SURGERY HERNIA REPAIR SKIN BIOPSY For complete objective data, detailed plan of care, and education refer to: Speech Therapy Comm/COG flowsheets, Bedside Swallow Evaluation flowsheets, [facility] Navigator, as well as patient Plan of Care and Education documentation. Nutrition Care Follow up Monitoring and Evaluation: Po intakes were variable Nutrition Diagnosis: Inadequate energy intake related to inability to consume sufficient po as evidenced by variable intakes documented. Active Nutrition Intervention/Prescription: Continue/Modify Diet Continue Oral Nutrition Supplement Diet: Carbohydrate Consistent, consider decreasing to 60g/meal Oral nutrition supplement: Boost Glucose Control once daily Nutrition Goals: Tolerate diet with PO intakes >75% most meals x next 10 days Start Date:03/31/2025 Expected End Date:04/10/2025 Nutrition Education: No needs at this time Assessment: Pertinent clinical information: Pt continues in IPR. S/p T7-8 discectomy. Weights: 03/28/25 0730 73.4 kg (161 lb 13.1 oz) 03/23/25 16:21:51 79.3 kg (174 lb 13.2 oz) Current diet order: Carbohydrate Consistent 75g/meal Current oral nutrition supplement: Boost Glucose Control once daily Recent intake: variable Current intake likely does not meet estimated needs Barriers to adequate p.o. intakes: RDN assumes decreased appetite Patient/family comments: Talked to pt and in the therapy room. States appetite is good, po intakes have improved a little recently, the last couple of days eating a little more than half of trays. Reports hasn't been getting the Boost Glucose Control. RDN looked in meal system, the last 2 days the supplements were on tray ticket, so pt should have gotten. Difficulty Chewing or Swallowing: ST following Fluid Status (edema): WNL Skin Integrity: pressure injury buttock GI Function: LBM: today Physical Appearance: No signs and symptoms of malnutrition noted Labs: Recent Labs 03/30/25 0555 NA 138 K 3.9 BICARB 26 CL 103 GLUCOSE 123* BUN 7* CREATININE 0.77* Scheduled Meds: ascorbic acid (vitamin C) 250 mg Oral Daily atorvastatin 20 mg Oral Nightly carbidopa-levodopa 25-100 mg 0.5 tablet Oral BID carbidopa-levodopa 25-100 mg 1 tablet Oral Daily with lunch clopidogreL 75 mg Oral Daily donepeziL 5 mg Oral Nightly enoxaparin 40 mg Subcutaneous Daily ergocalciferol 50,000 Units Oral Q7 Days ezetimibe 10 mg Oral Nightly ferrous sulfate 325 mg Oral Daily with breakfast gabapentin 300 mg Oral Nightly guaiFENesin 600 mg Oral Q12H lispro insulin 0-15 Units Subcutaneous at bedtime insulin lispro 0-30 Units Subcutaneous TID AC levothyroxine 50 mcg Oral QAM AC lisinopriL 5 mg Oral Daily metoprolol tartrate 50 mg Oral BID multivitamin 1 tablet Oral Daily nintedanib 150 mg Oral BID before meals nortriptyline 25 mg Oral Nightly pantoprazole 40 mg Oral Daily polyethylene glycol 17 g Oral Daily vitamin E 400 Units Oral Daily Continuous Infusions: Estimated Energy Needs Total Energy Estimated Needs: 1800kcals Method for Estimating Needs: 23kcals/kg Total Protein Estimated Needs: 79gms Method for Estimating Needs: 1gm/kg Sarah Rucker RD Inpatient Rehab Physical Therapy - Daily Progress Note PT Time Calculation Start Time: 1115 Stop Time: 1215 Time Calculation (min): 60 min PT Individual Therapy Min: 60 Family/caregiver training and education initiated this date with patient's spouse, Idalia. In doing so, the patient and caregiver(s) were trained in functional transfers (STS, stand-pivot, and car) and ambulation with emphasis on safe handling, use of gait belt, appropriate use of assistive device, and necessary verbal/tactile/visual cueing. Following education, family/caregivers demonstrate and verbalize adequate understanding for safe home going. Continued practice and skill acquisition would be beneficial as able. Therapy Precautions Orthotic Devices: No Weight Bearing Status: WFL General Rehab Precautions: Fall Risk, Back Balance Standing Balance - Static: Partial/Moderate Assistance (CGA to Min Ax1) Book Cleaner - Standing Static: wheeled walker Loss of Balance- Standing Static: intermittent Standing Balance - Dynamic: Partial/Moderate Assistance (Min Ax1) Book Cleaner - Standing Dynamic: wheeled walker Loss of Balance- Standing Dynamic: intermittent Transfers Sit to Stand: Supervision or Touching Assistance (CGA) Stand Pivot Transfers: Partial/Moderate Assistance (CGA to Min Ax1) Book Cleaner: wheeled walker Skilled Intervention Provided: verbal cues, tactile cues, facilitation, monitoring patient response with activity, monitoring patient response with positional changes, provided step by step instructions, patient education, caregiver/family education with patient involvement For: UE positioning, activity tolerance, attention to task, controlled descent, efficient movement, proper body mechanics, safety during functional tasks, safe use of AD and/or equipment, self-monitoring during activity, sequencing of movement Resulting in: improved activity tolerance, improved caregiver/family awareness, improved caregiver/family safety, improved functional independence, improved performance, improved safety, increased insight into deficits, increased self-management of symptoms and impairments, increased upright tolerance for functional tasks, decreased assistance required Skilled Intervention: Pt completes all functional transfers with use of FWW for stability and safety needing verbal cues for optimal sequencing with emphasis on hand placement, upright posturing/gaze, control/management of device, as well as slow controlled descent to seated surfaces. Family training completed with pt's spouse performing hands-on assistance following instruction/demonstation of optimal performance and sequencing. Functional Transfers Car Transfers: Partial/Moderate Assistance (Min Ax1 with FWW; to height of SUV) Book Cleaner: wheeled walker Skilled Intervention Provided: verbal cues, tactile cues, demonstration, facilitation, monitoring patient response with activity, monitoring patient response with positional changes, provided step by step instructions, patient education For: activity tolerance, attention to task, controlled descent, improved balance, initiation of task, postural alignment, proper body mechanics, safety during functional tasks, safe use of AD and/or equipment, self-monitoring during activity, sequencing of movement Resulting in: good carryover of cues, improved activity tolerance, improved functional independence, improved performance, improved safety, increased insight into deficits, increased self-management of symptoms and impairments, increased upright tolerance for functional tasks, decreased assistance required, decreased reliance on device/support, reduced risk of secondary impairment(s) Skilled Intervention: Pt completes car transfer to height of SUV per needs at discharge with use of FWW and leg senior mobile web developer for management of the R LE into the vehicle. Pt needing consistent CGA to Min Ax1 for stand-pivots to/from vehicle. With increased time and effort, pt able to self-manage bilat LEs into and out of vehicle (with use of leg senior mobile web developer). Family training completed with pt's spouse performing hands-on assistance following instruction/demonstation of optimal performance and sequencing. Gait/Locomotion Gait Assistance: Partial/Moderate Assistance (CGA to occ Min Ax1) Assistive Device: wheeled walker Distance: 70 Feet (over even surface) Rest Breaks: Yes Rest Break Position: seated Rest Break Duration: 3 min Additional Gait Trial 2: Yes Gait Assistance Trial 2: Partial/Moderate Assistance (CGA to occ Min Ax1) Assistive Device Trial 2: wheeled walker Distance Trial 2: 40 (over even surface) Pattern: R impaired heel strike, L impaired heel strike, R decreased step length, L decreased step length, over reliance on upper extremities, shuffle, decreased zenon (steps per minute) Gait Loss(es) of Balance: intermittent Environment/Terrain: open/community environment, multiple distractions Skilled Intervention Provided: verbal cues, tactile cues, facilitation, monitoring patient response with activity, patient education, caregiver/family education with patient involvement For: activity tolerance, attention to task, device management and safe use of device, fall prevention, gait sequence, gait technique, improved posture, improved balance, initiation of task, self-monitoring during activity, visual attention / awareness / scanning, weight shifting Resulting in: improved activity tolerance, improved caregiver/family awareness, improved caregiver/family safety, improved awareness of gait impairments, improved functional independence, improved performance, increased insight into deficits, improved safety, increased self-management of symptoms and impairments, increased upright tolerance for functional tasks, decreased assistance required, decreasing fall risk, decreased gait impairments Skilled Intervention: Pt ambulates over even/level surface type with use of FWW for stabliity and safety. Pt needing consistent CGA to occ Min Ax1 for momentary instances of instability and R knee buckling. Verbal cues provided for step length, upright posturing/gaze, control/management of device, as well as adoption of heelstrike as able to normalize gait pattern. Distances limited by report of increased fatigue needing seated rest break for recovery. Family training completed with pt's spouse performing hands-on assistance following instruction/demonstation of optimal performance and sequencing. Stair Management Stair Management Assistance: Partial/Moderate Assistance (Min Ax1) Assistive Device: BUE Stair Management Technique: two rails, step-to pattern, forwards Number of Stairs: 3 (6 inch) Skilled Intervention Provided: verbal cues, tactile cues, demonstration, facilitation, monitoring patient response with activity, provided step by step instructions, patient education For: activity tolerance, attention to task, initiation of task, self-monitoring during activity, stairs sequence/technique, visual attention / awareness / scanning Resulting in: improved activity tolerance, improved functional independence, increased insight into deficits, improved performance, improved safety, decreased assistance required Skilled intervention: Following instruction and demonstration of optimal performance and sequencing of stair negotiation, pt ascends/descends 3 steps with 2 HR for BUE support. Pt requires consistent Min Ax1 for stability. Additional verbal cues provided for sequencing and coordination of movement. Exercise Skilled Intervention Provided: verbal cues, instruction on proper technique/alignment For: achieving full ROM as tolerated, frequency of exercise(s), muscle activation, number of repetitions Resulting in: improved activity tolerance, improved functional strength/ROM Skilled Intervention: Recumbent bike for 7 min on L1 to improve bilat LE strength, ROM, and functional activity tolerance. Home Living Obtained Home Living and PLOF info from: Patient, Patient s family member Unable to obtain Home Living and PLOF info on initial eval: Patient is a questionable historian Lives With: Spouse (Idalia) Type of Home: House Home Layout: One level (laundry on main floor. Does not need to go to basement.) Rails on inside stairs: 2 rails Number of stairs inside home: 16 Steps to enter home: Yes Rails to enter home: 1 rail, L rail going up (+ bilateral grab bars on doorframe) Number of stairs to enter home: 3 Bathroom Shower/Tub: Walk-in shower, Main level (3 threshold to enter) Bathroom Toilet: Raised, Main level Bathroom Equipment: Grab bars in shower, Hand-held showerhead, Shower chair, Bedside commode, Toilet seat capacity analyst (toilet safety frame) Mobility Equipment: Cane, Wheeled walker, Rollator (Spare bed has adjustable features (their specific bed is not adjustable)) ADL Equipment: (none) Additional Objective Details - Home Living: Pt was standing to shower prior to admit. All information verified with spouse who is present during session. Pt with incorrect responses at times with self-report of home setup. 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 For complete objective data, detailed plan of care and patient education refer to: PT EVALUATION flowsheet, PT TREATMENT flowsheet, patient Plan of Care, Plan of Care progress note, and Patient Education. Inpatient Rehab Occupational Therapy - Daily Progress Note OT Time Calculation Start Time: 1017 Stop Time: 1049 Time Calculation (min): 32 min OT Individual Therapy Min: 32 Therapy Precautions Orthotic Devices: No Weight Bearing Status: WFL General Rehab Precautions: Back, Fall Risk Cognition Arousal/Alertness: Appropriate responses to stimuli Orientation Level: Oriented X4 Safety Judgment: Decreased awareness of need for safety Problem Solving: Assistance required to generate solutions, Assistance required to identify errors made Attention: Attends to quiet environment Hearing Status: WFL Social Interaction: Cooperative ADL Grooming: Supervision or Touching Assistance (setup seated in w/c to wash hands post toileting) Grooming - Skilled Intervention Provided: facilitation, monitored patient's safety and tolerance Grooming - For: efficient movement Grooming - Resulting In: improved functional independence Skilled Intervention: Right knee blocked for increased safety while engaged in standing tasks to decrease risk of falls with no LOB noted Toileting: Partial/Moderate Assistance, Substantial/Maximal Assistance (Mod A (clothing management), max A (hygiene)) Toileting - Skilled Intervention Provided: facilitation, monitored patient's safety and tolerance, verbal cues, caregiver/family education with patient involvement Toileting - For: efficient movement, fall prevention, compensatory strategies, self-monitoring Toileting - Resulting In: improved caregiver/family awareness, improved caregiver/family safety, improved performance with ADLs, improved safety Skilled Intervention: Pt requesting to use toilet at beginning of session. Clothing completed with pt pulling pants and briefs down over hips with CGA-min A for balance. Required brief change due to incontinent of BM. Pt initiated hygiene seated on toilet with CGA for balance while leaning anterior to reach to posterior perineal area. Pt getting BM on hand and spouse requesting to assist pt for hygiene. Required max A for donning new tabbed brief with spouse assisting. Hiked brief and pants up over hips with min A plus min A for balance from [place]. Spouse assisting to adjust pants as needed. Functional Mobility Functional Mobility: Partial/Moderate Assistance, Use of adaptive equipment (min A for balance) Functional Mobility - Distance: Bedroom/Bathroom Disance Skilled Intervention: Pt performing functional mobility for a couple feet in bathroom for toileting task with min A for balance using FWW. Pt reports LEs feeling very week but no LOB/buckling noted. Functional Transfers Sit to Stand: Partial/Moderate Assistance (min A) Toilet Transfers: Partial/Moderate Assistance, Grab bars, Use of adaptive equipment (min A using grab bar to FWW) Shower Transfers: Partial/Moderate Assistance, Use of adaptive equipment (min A) Book Cleaner: wheeled walker Skilled Intervention Provided: verbal cues, facilitation, monitoring patient response with activity, tactile cues For: controlled descent, UE positioning, efficient movement, safe use of AD and/or equipment, safety during functional task(s) Resulting In: improved performance, improved safety, improved activity tolerance, improved functional independence Skilled Intervention: Required min A for safe balance during transfers from w/c and toilet using FWW and grab bar Exercise Seated Exercises: Provided HEP handout with education on proper form/technique x 10 reps per exercise using red theraband for left UE planes and yellow theraband for right UE exercises. Skilled intervention provided: facilitation, instruction on proper technique/alignment, monitoring patient response with exercise, verbal cues, written instructions/handout provided and reviewed For: achieving full ROM as tolerated, efficient movement, number of repetitions, self-monitoring during activity, proper positioning of extremity Resulting In: efficient movement, improved functional strength/ROM, improved independence with HEP Home Living Obtained Home Living and PLOF info from: Patient, Patient s family member Unable to obtain Home Living and PLOF info on initial eval: Patient is a questionable historian Lives With: Spouse (Idalia) Type of Home: House Home Layout: One level (laundry on main floor. Does not need to go to basement.) Rails on inside stairs: 2 rails Number of stairs inside home: 16 Steps to enter home: Yes Rails to enter home: 1 rail, L rail going up (+ bilateral grab bars on doorframe) Number of stairs to enter home: 3 Bathroom Shower/Tub: Walk-in shower, Main level (3 threshold to enter) Bathroom Toilet: Raised, Main level Bathroom Equipment: Grab bars in shower, Hand-held showerhead, Shower chair, Bedside commode, Toilet seat capacity analyst (toilet safety frame) Mobility Equipment: Cane, Wheeled walker, Rollator (Spare bed has adjustable features (their specific bed is not adjustable)) ADL Equipment: (none) Additional Objective Details - Home Living: Pt was standing to shower prior to admit. All information verified with spouse who is present during session. Pt with incorrect responses at times with self-report of home setup. 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 For complete objective data, detailed plan of care and patient education refer to: OT EVALUATION flowsheet, OT TREATMENT flowsheet, patient Plan of Care, Plan of Care progress note, and Patient Education. Cosigned by Aline Head OT at 03/31/2025 4:21 PM EDT PM&R Progress note ASSESSMENT/PLAN: A: Gracie Lemons continues to demonstrate impairments and medical need appropriate for comprehensive acute inpt rehab T7/T8 discectomy 2/2 thoracic spinal stenosis - Continue Ibuprofen prn pain - Do not order Tylenol based on allergy - Flexeril scheduled for muscle spasms- made prn 03/29 due to increased fatigue - Transferred to IRF 03/23 - Initiate PT/OT for ADLs, transfers and ambulation RLE weakness - Likely 2/2 plexopathy due to positioning during surgery - Continue PT/OT - Consider CT head if other stroke like symptoms occur 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 instability for the last 2 years - Noted masked facies, shuffling gait, tremors, bradykinesia - Low dose Sinemet ordered 03/25 - Increased Sinemet to 1 tab at lunch and 0.5 tabs with breakfast and dinner- can continue to increase as needed RAFAEL - Patient uses CPAP at home, family to bring in machine Dementia - Continue Donepezil HTN - Continue Lisinopril, Metoprolol - Blood pressure parameters put in place for hypotension - Lisinopril decreased 03/26 for hypotension - Lisinopril decreased 03/29 for hypotension Hyperthyroidism - Continue Levothyroxine GERD - Continue Pantoprazole HLD - Continue Atorvastatin, Zetia 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 He reports continued diarrhea overnight, though denies any abdominal pain or nausea. He endorses a headache. He denies any CP or SOB. Review of systems: No cp, SOA, n/v/d. Temp: [97.6 F (36.4 C)-98.5 F (36.9 C)] 98.5 F (36.9 C) Heart Rate: [88-96] 96 Resp: [16-17] 16 BP: (96-125)/(59-78) 112/78 Physical Exam: General Appearance: In no apparent distress, well nourished HEENT: Normocephalic, atraumatic, neck supple, EOMI, PER Respiratory: On room air, no respiratory distress Cardiovascular: Peripheral pulses palpable, no edema Abdomen: Nontender, nondistended Musculoskeletal: No acute injury or gross deformity, 5/5 b/l shoulder flexion strength Skin: No rashes visualized, normal paplaption of skin and soft tissues Psychiatric: Normal mood and affect, appropriate insight and judgement Therapy Assessments: Assessments per PT, OT, ST documentation (last filed value): Home Living Type of Home: House (03/24/25 102) Home Layout: One level (laundry on main floor. Does not need to go to basement.) (03/24/25 102) Bathroom Shower/Tub: Walk-in shower, Main level (3 threshold to enter) (03/24/25 102) Bathroom Toilet: Raised, Main level (03/24/25 102) Bathroom Equipment: Grab bars in shower, Hand-held showerhead, Shower chair, Bedside commode, Toilet seat capacity analyst (toilet safety frame) (03/24/25 102) Bathroom Accessibility: (not recorded) Mobility Equipment: Cane, Wheeled walker, Rollator (Spare bed has adjustable features (their specific bed is not adjustable)) (03/24/25 102) Additional Objective Details - Home Living: Pt was standing to shower prior to admit. All information verified with spouse who is present during session. Pt with incorrect responses at times with self-report of home setup. 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 Spouse reports every now and then she would make pt use the WW if more unsteady that day. Pt did not ambulate in community (stayed in car when going to store, etc); spouse reports his legs would get tired easily.Spouse does indoor IADLs and patient was doing yardwork/mowing. Pt injured R shoulder ~2 months ago (had started physical therapy) - spouse reporting it was a chronic RTC tear from MRI. Son and DIL live next door and had taken over barn chores. Spouse was handling the finances and meds for patient. (03/24/25 102) Current Level of Function Balance: Sitting Balance - Static: Supervision or Touching Assistance (SBA) (03/27/25729) Sitting Balance - Dynamic: Supervision or Touching Assistance (CGA) (03/27/25729) Standing Balance - Static: Partial/Moderate Assistance (min assist) (03/27/25729) Standing Balance - Dynamic: Partial/Moderate Assistance (min-mod) (03/27/25729) Bed Mobility: Roll Left and Right: Supervision or Touching Assistance (CGA) (03/27/25729) Lying to Sitting on Side of Bed: Supervision or Touching Assistance (SBA) (03/31/25 08) Sit to Lying: Partial/Moderate Assistance, Head of bed elevated (Mod) (03/30/25 0735) Transfers: Sit to Stand: Partial/Moderate Assistance (CGA-min) (03/30/25 0735) Bed to Chair: (not recorded) Stand Pivot Transfers: Partial/Moderate Assistance (Mod) (03/30/25 0735) Squat Pivot Transfers: (not recorded) Book Cleaner: wheeled walker (03/30/25 07) Gait/Locomotion: Gait Assistance: Partial/Moderate Assistance (Min) (03/30/25 0735) Assistive Device: wheeled walker (03/30/25 07) Distance: 52 Feet (03/30/25 07) Pattern: R impaired heel strike, L impaired heel strike, R decreased step length, L decreased step length, over reliance on upper extremities, shuffle, decreased zenon (steps per minute) (03/30/25 07) Weight Bearing Status: able to maintain (03/27/25 0730) ADL & IADL Feeding: (not recorded) Meal Prep: (not recorded) Grooming: Supervision or Touching Assistance (CGA for balance standing at sink for combing hair) (03/31/25 0802) Upper Body Bathing: Partial/Moderate Assistance (Min) (03/24/25 1029) Lower Body Bathing: Dependent and/or 2 Person Assist (03/24/25 1029) Upper Body Dressing: Partial/Moderate Assistance (mod A seated EOB) (03/25/25 0700) Lower Body Dressing: Partial/Moderate Assistance (modA) (03/27/25 1120) Toileting: Partial/Moderate Assistance (moda) (03/30/25 1115) Speech Therapy Speech Functional Diagnosis: CVA: (not recorded) Speech/Language (Unrelated to CVA): (not recorded) Cognition (Unrelated to CVA): R41.840 Attention and concentration deficit., R41.841 Cognitive communication deficit. (03/24/25 1325) Dysphagia (Unrelated to CVA): (not recorded) Voice (Unrelated to CVA): (not recorded) Inpatient Rehab Speech Language Pathology - Daily Note MERCHANDISING EXECUTION ASSOCIATE Time Calculation Start Time: 914 Stop Time: 1015 Time Calculation (min): 60 min MERCHANDISING EXECUTION ASSOCIATE Individual Therapy Min: 60 Recommendations: PO Recommendations: NDD diet NDD diet recommendation: Regular solids, Thin liquids Barriers Returning to Prior Level of Function: Body Structure and Function: Musculoskeletal impairment, Neurologic impairment Explain Impairments: s/p discectomy, encephalopathy Activities and Participation: Executive function limitation Explain Limitations: cognitive deficits Environmental Factors: Home situation Explain Environmental Factors: lives w/spouse Skilled Therapy Discharge Needs: Are Skilled Therapy Services Needed After Discharge: (TBD) Subjective Pt participated in skilled cognitive tx this date (60 min). Pt was seen sitting upright in WC in the speech room, pt was cooperative and pleasant throughout session, no family/friends present. Objective 1. ST O-Log - Patient will score a 25 or above on two separate administrations of the O-Log. - MET 2. ST Memory - Patient will complete memory tasks with the use of memory strategies with 80% accuracy and minimal cues. 3. ST Problem Solving - Patient will complete basic problem solving, reasoning, safety awareness, and attention tasks with 80% accuracy and min cues. 4. ST Executive Function - Patient will complete basic sequencing, planning, and organizing tasks with 80% accuracy and min cues. Assessment 3. Pt completed problem solving, reasoning, attention and organization via answering questions re: a calendar of events w/88% acc w/mod I and benefited from supervision A logical cueing to increase acc to 100%. Pt completed problem solving, reasoning, and attention via answering questions re: a newspaper article w/100% acc w/mod I 4. Pt completed sequencing, reasoning, organizing, attention and planning via sequencing 4 step written tasks w/64% acc w/mod I and benefited from min A semantic cueing to increase acc to 100%. Pt completed organizing, planning, and reasoning via writing events on a monthly calendar w/70% acc w/mod I and benefited from min A logical cueing to identify errors. Following identification of errors, pt independently corrected errors. Education completed re: rx for DC from speech caseload this date as pt and spouse reporting pts cognition to be back to baseline. MERCHANDISING EXECUTION ASSOCIATE encouraged pt to complete daily cognitive tasks (ie. Reading, puzzles, word searches, etc) to encourage use of cognitive linguistic abilities. Pt and spouse verbalized understanding. Rx spouse continue w/med/finance management, no driving until cleared by MD, and supervision for safety at DC home. Plan Pt to DC from speech caseload this date Handoff given to primary RN. Aparna Valladares MA [facility]-[employer] Inpatient Rehab Occupational Therapy - Daily Progress Note OT Time Calculation Start Time: 801 Stop Time: 834 Time Calculation (min): 33 min OT Individual Therapy Min: 33 Therapy Precautions Orthotic Devices: No Weight Bearing Status: WFL General Rehab Precautions: Back, Fall Risk Cognition Arousal/Alertness: Appropriate responses to stimuli Orientation Level: Oriented X4 Safety Judgment: Decreased awareness of need for safety Problem Solving: Assistance required to generate solutions, Assistance required to identify errors made Attention: Attends to quiet environment Hearing Status: WFL Social Interaction: Cooperative ADL Grooming: Supervision or Touching Assistance (CGA for balance standing at sink for combing hair) Grooming - Skilled Intervention Provided: facilitation, monitored patient's safety and tolerance Grooming - For: fall prevention, efficient movement Grooming - Resulting In: improved performance with ADLs, improved participation in ADL task, improved functional independence Skilled Intervention: Right knee blocked for increased safety while engaged in standing tasks to decrease risk of falls with no LOB noted Functional Mobility Functional Mobility: Partial/Moderate Assistance (min A for balance) Functional Mobility - Distance: Bedroom/Bathroom Disance Skilled Intervention: Pt taking a few steps in bathroom from w/c to toilet using FWW with min A for balance with x 1 time right knee buckling slightly with pt able to correct with min A. Min A for balance while stepping back toward toilet. Bed Mobility Lying to Sitting on Side of Bed: Supervision or Touching Assistance (SBA) Book Cleaner: bedrails Skilled Intervention Provided: facilitation, monitoring patient response with activity For: efficient movement Resulting In: improved performance Functional Transfers Sit to Stand: Partial/Moderate Assistance (min A) Toilet Transfers: Partial/Moderate Assistance, Grab bars, Use of adaptive equipment (min A) Shower Transfers: Partial/Moderate Assistance, Use of adaptive equipment (min A) Book Cleaner: wheeled walker Skilled Intervention Provided: verbal cues, facilitation, monitoring patient response with activity For: UE positioning, LE positioning, controlled descent, fall prevention, efficient movement, safe use of AD and/or equipment, self-monitoring during activity Resulting In: improved activity tolerance, improved functional independence, improved performance Skilled Intervention: Pt requiring min A for transfers during session from various surfaces including EOB to w/c using FWW, FWW <> toilet and w/c <> shower bench setup as tub bench with FWW. Requires min A for balance. Spouse reports walker in shower has ~2 inch threshold. Trialed using shower bench setup as partially on outside of shower to simulate tub-bench style entrance with education on technique for sitting on outside portion ofbench and sliding across bench vs stepping over shower lip. Pt trialing and completing with min A for STS portion. Pt able to slide across bench with SBA. Home Living Obtained Home Living and PLOF info from: Patient, Patient s family member Unable to obtain Home Living and PLOF info on initial eval: Patient is a questionable historian Lives With: Spouse (Idalia) Type of Home: House Home Layout: One level (laundry on main floor. Does not need to go to basement.) Rails on inside stairs: 2 rails Number of stairs inside home: 16 Steps to enter home: Yes Rails to enter home: 1 rail, L rail going up (+ bilateral grab bars on doorframe) Number of stairs to enter home: 3 Bathroom Shower/Tub: Walk-in shower, Main level (3 threshold to enter) Bathroom Toilet: Raised, Main level Bathroom Equipment: Grab bars in shower, Hand-held showerhead, Shower chair, Bedside commode, Toilet seat capacity analyst (toilet safety frame) Mobility Equipment: Cane, Wheeled walker, Rollator (Spare bed has adjustable features (their specific bed is not adjustable)) ADL Equipment: (none) Additional Objective Details - Home Living: Pt was standing to shower prior to admit. All information verified with spouse who is present during session. Pt with incorrect responses at times with self-report of home setup. 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 For complete objective data, detailed plan of care and patient education refer to: OT EVALUATION flowsheet, OT TREATMENT flowsheet, patient Plan of Care, Plan of Care progress note, and Patient Education. Cosigned by Aline Head OT at 03/31/2025 4:21 PM EDT Inpatient Rehab Occupational Therapy - Daily Progress Note OT Time Calculation Start Time: 1115 Stop Time: 1215 Time Calculation (min): 60 min OT Individual Therapy Min: 60 Outcome Measures Therapy Precautions Orthotic Devices: No Weight Bearing Status: WFL General Rehab Precautions: Back, Fall Risk Cognition Arousal/Alertness: Appropriate responses to stimuli Orientation Level: Oriented X4 Safety Judgment: Decreased awareness of need for safety Problem Solving: Assistance required to identify errors made, Assistance required to generate solutions Attention: Attends to quiet environment Hearing Status: WFL Social Interaction: Appropriate, Cooperative Comments: Pt more alert and talkative today. ADL Grooming: Supervision or Touching Assistance (seated at sink) Grooming - Skilled Intervention Provided: monitored patient's safety and tolerance Grooming - For: attention to task, self-monitoring Grooming - Resulting In: improved participation in ADL task Skilled Intervention: improved ability to sit unsupported during tasks. Toileting: Partial/Moderate Assistance (moda) Toileting - Skilled Intervention Provided: verbal cues Toileting - For: attention to task, proper body mechanics, self-monitoring Toileting - Resulting In: improved participation in ADL task Skilled Intervention: Pt needing Katharine to stand with L grab bar assist and walker assisting min to doff and redon clothing down/up for toileting skills. Seated hygiene but spouse providing further care to ensure thoroughness. Functional Mobility Functional Mobility: (Wheelchair mob navigating around room furniture and doorways.) Functional Transfers Sit to Stand: Partial/Moderate Assistance (Katharine) Toilet Transfers: Partial/Moderate Assistance, Use of adaptive equipment, Grab bars (min to modA) Book Cleaner: wheeled walker Skilled Intervention Provided: patient education For: sequencing of movement, self-monitoring during activity, safety during functional task(s) Resulting In: increased initiation/participation in mobility task(s) Exercise Seated Exercises: Pt able to toss beans bags at varies distances underhand and over hands with BUE's with 50% accuracey. Using handkerchief sample clerk skills to retreive items seated in wheelchair. Standing Exercises: Standing at tabletop to complete midline crossing activities reaching up over head requiring modA for R shld past 60 degree's to be successful. Breathing Training: Pursed lip breathing Skilled intervention provided: verbal cues, tactile cues, visual cues For: achieving full ROM as tolerated, breath control/breathing pattern with exercise, proper positioning of extremity, postural alignment Resulting In: improved initiation Balance Treatment Sitting Balance - Dynamic: Supervision or Touching Assistance, with unilateral LUE support, with back unsupported, 1+ to 3 minutes (CGA) Loss of Balance - Sitting Dynamic: right (due to fatigue and needing to lean on a surface.) Sitting Balance Treatment: maintaining midline orientation, reaching within base of support, reaching across midline, upright gaze Skilled Intervention Provided: patient education, verbal cues, tactile cues For: balance recovery, postural alignment, trunk control Resulting in: improved initiation, improved trunk stability Standing Balance - Static: Supervision or Touching Assistance, with bilateral UE support, with unilateral LUE support, with unilateral RUE support, with device, 30 seconds to 1 minute (CGA) Book Cleaner - Standing Static: wheeled walker Loss of Balance- Standing Static: (knee's started to give needing to sit and rest.) Standing Balance - Dynamic: Partial/Moderate Assistance, with device, 30 seconds to 1 minute (modA) Book Cleaner - Standing Dynamic: same clinical laboratory aide used for static standing tasks Skilled Intervention Provided: patient education For: LE positioning, self-monitoring during activity Resulting in: improved initiation Home Living Obtained Home Living and PLOF info from: Patient, Patient s family member Unable to obtain Home Living and PLOF info on initial eval: Patient is a questionable historian Lives With: Spouse (Idalia) Type of Home: House Home Layout: One level (laundry on main floor. Does not need to go to basement.) Rails on inside stairs: 2 rails Number of stairs inside home: 16 Steps to enter home: Yes Rails to enter home: 1 rail, L rail going up (+ bilateral grab bars on doorframe) Number of stairs to enter home: 3 Bathroom Shower/Tub: Walk-in shower, Main level (3 threshold to enter) Bathroom Toilet: Raised, Main level Bathroom Equipment: Grab bars in shower, Hand-held showerhead, Shower chair, Bedside commode, Toilet seat capacity analyst (toilet safety frame) Mobility Equipment: Cane, Wheeled walker, Rollator (Spare bed has adjustable features (their specific bed is not adjustable)) ADL Equipment: (none) Additional Objective Details - Home Living: Pt was standing to shower prior to admit. All information verified with spouse who is present during session. Pt with incorrect responses at times with self-report of home setup. 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 For complete objective data, detailed plan of care and patient education refer to: OT EVALUATION flowsheet, OT TREATMENT flowsheet, patient Plan of Care, Plan of Care progress note, and Patient Education. Cosigned by Kevon Epperson OT at 03/31/2025 4:31 PM EDT Date: 03/30/2025 Time: 4:55 PM Patient Name: Gracie Lemons Date of : 1950 Discharge Disposition Update: Patient discussed in rehab treatment team meeting today . Discussed pt progress on IPR unit , target discharge date and also discussed barriers and or concerns for patient discharge. Target discharge date set for : 04/07/25 Discharge date as set , will be written on white board in pt room. 1350- Spoke with pt at bedside to discussed progress pt is making on the IPR unit, discharge plans : Who will assist as caregiver : their availability, home going needs pt will have , and target discharge date of : 04/07/25 present and involved with pt plan of care, discussed will have hands on training with therapies prior to dc. Discussed anticipated recommendation to continue therapies upon discharge : HHC vs SNF , plan to discuss again further closer to target discharge date. Pt and would like for pt to return to home upon dc, hopeful he will continue to make progress on IPR unit and will be at a level he can safely come home with his at discharge Support and encouragement given. Discussed barrier of steps to enter home, encouraged pt to have rap placed rosetta . She states she will discuss with their son fay to see if he can build a ramp of if they need to purchase a ramp. Plan A: Home (HHC vs OP) Plan B: [facility] Facility Transportation: To be determined . Discharge Disposition: Home with & anticipated HHC vs SNF for short stay for additional therapies before going home. Will continue to follow patient during their IPR admit. Will assist pt & caregiver to develop appropriate discharge plan to meet their needs as IP Rehab admit progresses and comes to the end of their stay. [facility] [place] PROGRESS NOTE Patient name: Gracie Lemons Date of : 1950 Assessment and plan Gracie Lemons is a 75 y.o. male patient of Armando Kohli MD with history of anemia, BPH, CAD, DM, GERD, HLD, HTN, RAFAEL, and CVA presented to IRF on 03/23/2025 with debility s/p T7-8 discectomy. Debility Impaired Mobility and ADLs Comprehensive Rehab with PT/OT/ST PMR following T7-T8 Discectomy Right Side Weakness Parkinsonian Features T7-8 Discectomy on 03/11 at [employer] with neurosurgery Patient with subsequent Right side weakness Neurology at [employer] believes it to possibly be lumbosacral plexopathy Patient with Parkinsonian features including masked facies, hypophonic speech, cogwheeling rigidity of axial and appendicular muscles, and bradykinesia A referral has been sent to [facility] Continue Flexeril, gabapentin, and nortriptyline Continue low dose Sinemet, may need to up titrate if no response in a week. May titrate up to 1 pill on 04/01/25 Noted that PT is not seeing a shuffling gait in last two treatments Pressure Injury Coccyx, POA Pressure Injury gluteal fold, POA Consult Wound Care - orders placed Fibrotic Lung Disease Continue Mucinex Ordered home OFEV, family brought in it is non-formulary History of CVA CAD HTN HLD Continue atorvastatin, Plavix, Zetia, lisinopril, and metoprolol 50 mg bid Lisinopril decreased to 5 mg daily due to hypotension Type 2 Diabetes HgbA1C 7.7 in June 2024 Diabetic Diet Sliding Scale Insulin Recommend outpatient follow-up Hypothyroidism Will check TSH and reflex T4 TSH 3.92, Free T4 1.5 Continue levothyroxine Cognitive Disorder Continue donepezil GERD Continue Protonix Vitamin D Deficiency Continue Supplementation RAFAEL CPAP ordered, refused overnight 2L/NC while sleeping if refusing CPAP Chronic Anemia Hgb 13.0 Baseline Hgb 10-13 Continue Ferrous Sulfate Overweight BMI 29.09 Encourage Diet and Lifestyle modifications Discharge planning Medically ready for discharge: no Patient and/or family has been notified they are expected to be medically stable for discharge on the following date: 04/07/25 Patient requires continued hospitalization due to: Inpatient Rehab Discussed with the patient and/or family that the following is a potential discharge location, understanding that the final plan will depend on the patient's progress and shared decision-making: Home with home health The following resources have been ordered to assist with discharge barriers: care management, PT, OT Quality measures DVT prophylaxis: lovenox Lei catheter: absent Code status Full Code Subjective Working with therapy in [facility] Objective BP 130/82 Pulse (!) 104 Temp 97.7 F (36.5 C) (Oral) Resp 16 Ht 5' 5 Wt 73.4 kg (161 lb 13.1 oz) SpO2 95% BMI 26.93 kg/m General appearance: alert; chronically ill appearing; in no acute distress HEENT: Head- normocephalic; Eyes- EOMI, sclera anicteric; Throat- mucous membranes moist Cardiovascular: regular rate and rhythm; normal S1, S2; no murmurs, rubs, clicks or gallops; peripheral edema absent Respiratory: lungs clear to auscultation; without wheezes, rales or rhonchi; on room air Abdomen: soft, non-tender, non-distended Neurological: oriented x 3; normal speech; parkinsonian movements, right side weakness Musculoskeletal: no significant deformity, unable to extend right arm all the way Skin: normal coloration Psych: normal mood and affect PM&R Progress note ASSESSMENT/PLAN: A: Gracie Lemons continues to demonstrate impairments and medical need appropriate for comprehensive acute inpt rehab T7/T8 discectomy 2/2 thoracic spinal stenosis - Continue Ibuprofen prn pain - Do not order Tylenol based on allergy - Flexeril scheduled for muscle spasms- made prn 03/29 due to increased fatigue - Transferred to IRF 03/23 - Initiate PT/OT for ADLs, transfers and ambulation RLE weakness - Likely 2/2 plexopathy due to positioning during surgery - Continue PT/OT - Consider CT head if other stroke like symptoms occur 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 instability for the last 2 years - Noted masked facies, shuffling gait, tremors, bradykinesia - Low dose Sinemet ordered 03/25 - Increased Sinemet to 1 tab at lunch and 0.5 tabs with breakfast and dinner- can continue to increase as needed RAFAEL - Patient uses CPAP at home, family to bring in machine Dementia - Continue Donepezil HTN - Continue Lisinopril, Metoprolol - Blood pressure parameters put in place for hypotension - Lisinopril decreased 03/26 for hypotension - Lisinopril decreased 03/29 for hypotension Hyperthyroidism - Continue Levothyroxine GERD - Continue Pantoprazole HLD - Continue Atorvastatin, Zetia 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 He reports several episodes of diarrhea yesterday evening. He was tested and was negative for c diff. Per his , the patient's Ofev medication can cause diarrhea. Per therapy, the patient's gate seemed less shuffling today. He denies any side effects from the increased Sinemet. He denies any CP or SOB. Review of systems: No cp, SOA, n/v/d. Temp: [97.7 F (36.5 C)-98.2 F (36.8 C)] 97.7 F (36.5 C) Heart Rate: [83-104] 104 Resp: [16-18] 16 BP: (87-130)/(62-82) 130/82 Physical Exam: General Appearance: In no apparent distress, well nourished HEENT: Normocephalic, atraumatic, neck supple, EOMI, PER Respiratory: On room air, no respiratory distress, no cough noted Cardiovascular: Peripheral pulses palpable, no edema Abdomen: Nontender, nondistended Musculoskeletal: No acute injury or gross deformity Skin: No rashes visualized, normal paplaption of skin and soft tissues Psychiatric: Normal mood and affect, appropriate insight and judgement Therapy Assessments: Assessments per PT, OT, ST documentation (last filed value): Home Living Type of Home: House (03/24/25 102) Home Layout: One level (laundry on main floor. Does not need to go to basement.) (03/24/25 102) Bathroom Shower/Tub: Walk-in shower, Main level (3 threshold to enter) (03/24/25 1029) Bathroom Toilet: Raised, Main level (03/24/25 102) Bathroom Equipment: Grab bars in shower, Hand-held showerhead, Shower chair, Bedside commode, Toilet seat capacity analyst (toilet safety frame) (03/24/25 102) Bathroom Accessibility: (not recorded) Mobility Equipment: Cane, Wheeled walker, Rollator (Spare bed has adjustable features (their specific bed is not adjustable)) (03/24/25 102) Additional Objective Details - Home Living: Pt was standing to shower prior to admit. All information verified with spouse who is present during session. Pt with incorrect responses at times with self-report of home setup. 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 Spouse reports every now and then she would make pt use the WW if more unsteady that day. Pt did not ambulate in community (stayed in car when going to store, etc); spouse reports his legs would get tired easily.Spouse does indoor IADLs and patient was doing yardwork/mowing. Pt injured R shoulder ~2 months ago (had started physical therapy) - spouse reporting it was a chronic RTC tear from MRI. Son and DIL live next door and had taken over barn chores. Spouse was handling the finances and meds for patient. (03/24/25 102) Current Level of Function Balance: Sitting Balance - Static: Supervision or Touching Assistance (SBA) (03/27/25729) Sitting Balance - Dynamic: Supervision or Touching Assistance (CGA) (03/27/25729) Standing Balance - Static: Partial/Moderate Assistance (min assist) (03/27/25729) Standing Balance - Dynamic: Partial/Moderate Assistance (min-mod) (03/27/25729) Bed Mobility: Roll Left and Right: Supervision or Touching Assistance (CGA) (03/27/25729) Lying to Sitting on Side of Bed: Supervision or Touching Assistance, Head of bed flat (SBA) (03/30/25 0735) Sit to Lying: Partial/Moderate Assistance, Head of bed elevated (Mod) (03/30/25734) Transfers: Sit to Stand: Partial/Moderate Assistance (CGA-min) (03/30/25734) Bed to Chair: (not recorded) Stand Pivot Transfers: Partial/Moderate Assistance (Mod) (03/30/25 07) Squat Pivot Transfers: (not recorded) Book Cleaner: wheeled walker (03/30/25734) Gait/Locomotion: Gait Assistance: Partial/Moderate Assistance (Min) (03/30/25 07) Assistive Device: wheeled walker (03/30/25734) Distance: 52 Feet (03/30/25734) Pattern: R impaired heel strike, L impaired heel strike, R decreased step length, L decreased step length, over reliance on upper extremities, shuffle, decreased zenon (steps per minute) (03/30/25734) Weight Bearing Status: able to maintain (03/27/25 0730) ADL & IADL Feeding: (not recorded) Meal Prep: (not recorded) Grooming: Supervision or Touching Assistance (SBA seated at sink) (03/27/25 1120) Upper Body Bathing: Partial/Moderate Assistance (Min) (03/24/25 1029) Lower Body Bathing: Dependent and/or 2 Person Assist (03/24/25 1029) Upper Body Dressing: Partial/Moderate Assistance (mod A seated EOB) (03/25/25 0700) Lower Body Dressing: Partial/Moderate Assistance (modA) (03/27/25 1120) Toileting: Partial/Moderate Assistance (modA) (03/27/25 1120) Speech Therapy Speech Functional Diagnosis: CVA: (not recorded) Speech/Language (Unrelated to CVA): (not recorded) Cognition (Unrelated to CVA): R41.840 Attention and concentration deficit., R41.841 Cognitive communication deficit. (03/24/25 1325) Dysphagia (Unrelated to CVA): (not recorded) Voice (Unrelated to CVA): (not recorded) Inpatient Rehab Speech Language Pathology - Daily Note [employer] Time Calculation Start Time: 914 Stop Time: 5 Time Calculation (min): 60 min [employer]IATE Individual Therapy Min: 60 Recommendations: PO Recommendations: NDD diet NDD diet recommendation: Regular solids, Thin liquids Barriers Returning to Prior Level of Function: Body Structure and Function: Musculoskeletal impairment, Neurologic impairment Explain Impairments: s/p discectomy, encephalopathy Activities and Participation: Executive function limitation Explain Limitations: cognitive deficits Environmental Factors: Home situation Explain Environmental Factors: lives w/spouse Skilled Therapy Discharge Needs: Are Skilled Therapy Services Needed After Discharge: (TBD) Subjective Pt participated in skilled cognitive tx this date (60 min). Pt was seen sitting upright in WC in the speech room, pt was cooperative and pleasant throughout session, no family/friends present during session; however present in pts room at the start of the session. reporting pt to be back to baseline. Objective 1. ST O-Log - Patient will score a 25 or above on two separate administrations of the O-Log. - MET 2. ST Memory - Patient will complete memory tasks with the use of memory strategies with 80% accuracy and minimal cues. 3. ST Problem Solving - Patient will complete basic problem solving, reasoning, safety awareness, and attention tasks with 80% accuracy and min cues. 4. ST Executive Function - Patient will complete basic sequencing, planning, and organizing tasks with 80% accuracy and min cues. Assessment 2. Pt completed immediate and working memory via word list retention category inclusion w/word lists of 3 and 4 w/100% acc w/mod I. Pt completed immediate and short term recall via recall of hypothetical Drs appointments w/66% acc w/mod I for immediate recall and 88% acc w/mod I for delayed recall of 5 min w/a distractor and benefited from min A semantic cueing to increase acc to 100%. Pt completed immediate and working memory via recall of 5 name/face pairs w/60% acc w/mod I and benefited from min A semantic cueing to increase acc to 100% 3. Pt completed problem solving, reasoning and attention via story inferencing task w/92% acc w/mod I and benefited from supervision A logical cueing to increase acc to 100% Plan Will continue per POC Handoff given to primary RN. Aparna Valladares MA CCC-MERCHANDISING EXECUTION ASSOCIATE Inpatient Rehab Physical Therapy - Daily Progress Note PT Time Calculation Start Time: 734 Stop Time: 834 Time Calculation (min): 60 min PT Individual Therapy Min: 60 Therapy Precautions Orthotic Devices: No Weight Bearing Status: WFL General Rehab Precautions: Fall Risk, Back Bed Mobility Lying to Sitting on Side of Bed: Supervision or Touching Assistance, Head of bed flat (SBA) Sit to Lying: Partial/Moderate Assistance, Head of bed elevated (Mod) Book Cleaner: bedrails Skilled Intervention Provided: verbal cues For: activity tolerance, necessary precautions, logroll technique, sequencing of movement Resulting in: improved activity tolerance, improved functional independence, improved performance Skilled Intervention: Pt demos good logroll technique with supine to sitting transfer to EOB. Mod needed for trunk support, and for LEs when transferring sitting to supine on moveo. Transfers Sit to Stand: Partial/Moderate Assistance (CGA-min) Stand Pivot Transfers: Partial/Moderate Assistance (Mod) Book Cleaner: wheeled walker Skilled Intervention Provided: verbal cues For: activity tolerance Resulting in: improved activity tolerance, improved performance, improved functional independence Skilled Intervention: Occasional verbal cues for UE placement with transfers. Verbal cues for slow descent with stand to sit transfers for safety. Mod needed for standing balance and safety with stand pivot transfers with wheeled walker. Pt performs STSx5 to improve functional strength/endurance and technique/UE placement with transfers. Gait/Locomotion Gait Assistance: Partial/Moderate Assistance (Min) Assistive Device: wheeled walker Distance: 52 Feet Additional Gait Trial 2: Yes Gait Assistance Trial 2: Partial/Moderate Assistance (Min) Assistive Device Trial 2: wheeled walker Distance Trial 2: 56 Pattern: R impaired heel strike, L impaired heel strike, R decreased step length, L decreased step length, over reliance on upper extremities, shuffle, decreased zenon (steps per minute) Gait Loss(es) of Balance: intermittent Environment/Terrain: open/community environment, multiple distractions Skilled Intervention Provided: verbal cues For: activity tolerance, gait technique, improved posture, LE management Resulting in: improved activity tolerance, improved performance Skilled Intervention: Min needed for standing balance and safety with gait training. Verbal cues for focus on maintaining knee stability during stance phase of gait. Pt with c/o of UE fatigue with gait secondary over reliance. Exercise Supine Exercises: Pt performs lesly leg press on moveo to improve LE strength and knee stability. Pt performs 4 sets of 15 reps at 10,15,15,15 degree inclines. Verbal cues for hip alignment, and eccentric control. Skilled Intervention Provided: verbal cues, instruction on proper technique/alignment For: achieving full ROM as tolerated, frequency of exercise(s), muscle activation, number of repetitions Resulting in: improved activity tolerance, improved functional strength/ROM Skilled Intervention: Recumbent bike for 10 min on level 1 resistance to improve LE strength, LE reciprocal motion, and functional endurance. Home Living Obtained Home Living and PLOF info from: Patient, Patient s family member Unable to obtain Home Living and PLOF info on initial eval: Patient is a questionable historian Lives With: Spouse (Idalia) Type of Home: House Home Layout: One level (laundry on main floor. Does not need to go to basement.) Rails on inside stairs: 2 rails Number of stairs inside home: 16 Steps to enter home: Yes Rails to enter home: 1 rail, L rail going up (+ bilateral grab bars on doorframe) Number of stairs to enter home: 3 Bathroom Shower/Tub: Walk-in shower, Main level (3 threshold to enter) Bathroom Toilet: Raised, Main level Bathroom Equipment: Grab bars in shower, Hand-held showerhead, Shower chair, Bedside commode, Toilet seat capacity analyst (toilet safety frame) Mobility Equipment: Cane, Wheeled walker, Rollator (Spare bed has adjustable features (their specific bed is not adjustable)) ADL Equipment: (none) Additional Objective Details - Home Living: Pt was standing to shower prior to admit. All information verified with spouse who is present during session. Pt with incorrect responses at times with self-report of home setup. 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 For complete objective data, detailed plan of care and patient education refer to: PT EVALUATION flowsheet, PT TREATMENT flowsheet, patient Plan of Care, Plan of Care progress note, and Patient Education. Cosigned by Aston Turk PT at 03/30/2025 9:01 AM EDT Inpatient Rehab Speech Language Pathology - Weekly Note Week Endin03/29/25 Justification of Medical Necessity and Intensity of Service: Patient admitted to Inpatient Rehab status post disscetomy. Intensive speech therapy is warranted to address deficits in the areas of cognition to aid in return to independence with Activities of Daily Living (ADLs) upon discharge. Speech Language Pathology Care Plan Goals: Problem: Cognition - Impaired Goal: [facility] O-Log Description: ST O-Log - Patient will score a 25 or above on two separate administrations of the O-Log. Outcome: Met Goal: [facility] Memory- memory strategies Description: ST Memory - Patient will complete memory tasks with the use of memory strategies with 80% accuracy and minimal cues. Outcome: Partially Met Note: Pt completed immediate and short term recall via recall of 12 pictured items w/use of grouping and repetition strategies w/83% acc w/mod I for immediate recall (and benefited from min A semantic cueing to increase acc to 100%) and 100% acc w/mod I following a 5 min delay w/a distractor. Goal: [facility] Problem Solving- verbal problem solving Description: ST Problem Solving - Patient will complete basic problem solving, reasoning, safety awareness, and attention tasks with 80% accuracy and min cues. Outcome: Partially Met Note: Pt completed problem solving, reasoning, attention and mental math calculation via time related word problems w/64% acc w/mod I and benefited from min A semantic cueing to increase acc to 100%. Pt completed problem solving, reasoning, attention and safety awareness via problem solving missing equipment task w/100% acc w/mod I. Goal: [facility] Executive Function- sequencing/organization/planning Description: Executive Function - Patient will complete basic sequencing, planning, and organizing tasks with 80% accuracy and min cues. Outcome: Partially Met Note: Pt completed sequencing, reasoning, attention and organizing via sequencing 4 step pictured tasks w/75% acc w/mod I and benefited from min A semantic cueing to increase acc to 100%. Pt completed sequencing, reasoning, attention, planning and safety awareness via transfer from WC to toilet and back to WC via santy steady w/min A verbal cueing for safety precautions and sequencing of steps Goal: ST- LTG Executive Function- sequencing/organization/planning Description: ST Executive Function - Patient will demonstrate improved cognitive linguistic abilities to aid in safe return to independence w/ADLs at [place] home Outcome: Partially Met Will continue per POC Aparna Valladares MA CCC-MERCHANDISING EXECUTION ASSOCIATE Inpatient Rehab Occupational Therapy - Weekly Progress Note Occupational Therapy Goals Patient has displayed improvements in LB ADL performance and UB dressing. He does continue to require considerable physical assistance to complete functional bathroom transfers and remains inconsistent with his tolerance of sustained standing activities. Patient will continue to benefit from participation in intensive, comprehensive therapy approach in an [facility] setting to promote further functional gains. Currently, patient benefiting from mod assist for brief sustained static standing activities lasting up to 1 minute and min assist for static sitting activities due to periods of retropulsive balance. Problem: Self-care Deficit Goal: OT- LTG UB dressing Description: OT - Patient will complete UB dressing with set-up assist in order to improve self care function. Outcome: Not Met Goal: OT- LTG LB dressing Description: OT - Patient will complete LB dressing with contact guard assist / footwear management with stand by assist through use of AE with adherence to back precautions in order to improve self care function. Outcome: Not Met Goal: OT- LTG LB bathing Description: OT - Patient will complete UB/LB bathing with stand by assist from seated position with use of AE in order to improve self care function. Outcome: Not Met Goal: OT- LTG toileting Description: OT - Patient will complete toileting with minimal assist in order to improve self care function. Outcome: Not Met Goal: OT- LTG precautions Description: OT - Patient will demonstrate back precaution management with independence in order to improve safe and appropriate ADL/IADL management. Outcome: Not Met Goal: OT- LTG Self-Care Other Description: OT- Patient will participate in family/caregiver training as needed to enhance a safe return to home environment by time of discharge, including education on ADLs, functional transfers, precautions, fall prevention, HEP, and any adaptive equipment needs. Outcome: Not Met Problem: Mobility - Impaired Goal: OT- STG toilet transfer Description: OT - Patient will complete toilet transfer with maximum assist (x1) with use of AD in preparation for ADL's. Outcome: Not Met Goal: OT- LTG toilet transfer Description: OT - Patient will complete toilet transfer with contact guard assist and use of AD in preparation for ADL's. Outcome: Not Met Goal: OT- LTG navigation Description: OT - Patient will navigate environment within short household distances with minimal assist and use of AD during simple item retrieval tasks in anticipation for safe return to home/community. Outcome: Not Met Problem: Impaired Neurologic Function Goal: OT- LTG dynamic sitting balance Description: OT - Patient will complete dynamic sitting balance activity with modified independence during extended reaching tasks outside MARK while on unsupported surfaces in preparation for ADL's. Outcome: Not Met Goal: OT- LTG static standing balance Description: OT - Patient will complete static standing balance activity with contact guard assist during unilateral task engagement at tabletop level for durations >5 mins with no need for blocking to BLEs in preparation for ADL's. Outcome: Not Met Problem: Self-care Deficit Goal: OT- LTG grooming Description: OT - Patient will complete grooming tasks from w/c level with modified independence and/or with contact guard assist in standing in order to improve self care function. Outcome: Partially Met Note: Benefiting from SBA to complete grooming task from seated position. Problem: Impaired Strength Goal: OT- LTG Strength Other Description: OT- Patient will tolerate 15 mins of BUE strengthening exercises (WITHIN PRECAUTIONS) in order to improve necessary strength for functional mobility and self care tasks with patient able to complete exercises with no more than min cues by time of discharge. Outcome: Partially Met Problem: Impaired Neurologic Function Goal: OT- STG static standing balance Description: OT - Patient will complete static standing balance activity with moderate assist during unilateral engagement in tabletop tasks for durations up to 2-3 mins with no more than min blocking required to BLEs in preparation for ADL's. Outcome: Partially Met Note: Able to tolerate sustained static sitting for 1-3 minutes with min assist for balance. Problem: Self-care Deficit Goal: OT- STG UB dressing Description: OT - Patient will complete UB dressing with minimal assist through provided cues in order to improve self care function. Outcome: Completed Note: Benefiting from min assist to complete UB dressing. Goal: OT- STG LB dressing Description: OT - Patient will complete LB dressing with maximum assist (x1) in order to improve self care function. Outcome: Completed Note: Benefiting from mod assist to complete LB dressing with a handkerchief sample clerk and sock aid. Problem: Impaired Neurologic Function Goal: OT- STG Neuro Function Other Description: OT- Patient will participate in formal assessment of bilateral gross/ fine motor coordination and gross grasp/pinch strengths to assist with treatment planning with further goals to follow as needed. Outcome: Completed Justification of Medical Necessity and Intensity of Service Patient would benefit from skilled Occupational Therapy (OT) services in this inpatient rehabilitation facility with a multidisciplinary team approach to address the above-listed deficits/education needs in order to maximize independence with Activities of Daily Living (ADLs) and Instrumental Activities of Daily Living (IADLs) upon discharge home. Patient wants to return home with family assist and has good potential for success in this environment to increase independence, safety, and quality of life after participating in intense OT. Therapy Precautions Orthotic Devices: No Weight Bearing Status: WFL General Rehab Precautions: Back, Fall Risk Home Living Obtained Home Living and PLOF info from: Patient, Patient s family member Unable to obtain Home Living and PLOF info on initial eval: Patient is a questionable historian Lives With: Spouse (Idalia) Type of Home: House Home Layout: One level (laundry on main floor. Does not need to go to basement.) Rails on inside stairs: 2 rails Number of stairs inside home: 16 Steps to enter home: Yes Rails to enter home: 1 rail, L rail going up (+ bilateral grab bars on doorframe) Number of stairs to enter home: 3 Bathroom Shower/Tub: Walk-in shower, Main level (3 threshold to enter) Bathroom Toilet: Raised, Main level Bathroom Equipment: Grab bars in shower, Hand-held showerhead, Shower chair, Bedside commode, Toilet seat capacity analyst (toilet safety frame) Mobility Equipment: Cane, Wheeled walker, Rollator (Spare bed has adjustable features (their specific bed is not adjustable)) ADL Equipment: (none) Additional Objective Details - Home Living: Pt was standing to shower prior to admit. All information verified with spouse who is present during session. Pt with incorrect responses at times with self-report of home setup. 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 For complete objective data, detailed plan of care and patient education refer to: PT EVALUATION flowsheet, PT TREATMENT flowsheet, patient Plan of Care, Plan of Care progress note, and Patient Education. Inpatient Rehab Physical Therapy - Daily Progress Note PT Time Calculation Start Time: 1330 Stop Time: 1430 Time Calculation (min): 60 min PT Individual Therapy Min: 60 Therapy Precautions Orthotic Devices: No Weight Bearing Status: WFL General Rehab Precautions: Fall Risk, Back Bed Mobility Lying to Sitting on Side of Bed: Partial/Moderate Assistance, Head of bed elevated (Mod) Sit to Lying: Partial/Moderate Assistance (Mod) Book Cleaner: bedrails Skilled Intervention Provided: verbal cues, facilitation For: activity tolerance, sequencing of movement Resulting in: improved activity tolerance Skilled Intervention: Mod needed for trunk support and for assistance with LEs when transferring sitting<>supine. Transfers Sit to Stand: Partial/Moderate Assistance (CGA-min) Stand Pivot Transfers: Partial/Moderate Assistance (Mod) Book Cleaner: wheeled walker Skilled Intervention Provided: verbal cues, facilitation For: activity tolerance, UE positioning, controlled descent, safety during functional tasks Resulting in: improved activity tolerance Skilled Intervention: Pt needing CGA-min for assistance with standing from sitting. Mod needed for standing balance and safety when performing stand pivot transfers with wheeled walker. Occasional verbal cues for UE placement with transfers. Verbal cues for eccentric control when sitting. Functional Transfers Car Transfers: Substantial/Maximal Assistance (Mod-max) Toilet Transfers: Dependent and/or 2 Person Assist (Santy bass) Skilled Intervention Provided: verbal cues For: activity tolerance, controlled descent, safety during functional tasks Resulting in: improved activity tolerance, improved performance Skilled Intervention: Pt stands with santy bass with CGA-min. Pt completes toilet transfer dependently this session via santy kali. Pt performs toilet transfer x2 this date. Verbal cues for slow descent to toilet seat. Pt needing assistance with clothing management. Pt performs car transfer this session with mod-max for standing balance and safety when pivoting from w/c<>car seat. Pt needing verbal cues for technique and UE placement with car transfer. Pt needing mod for assistance with moving R LE in and out of car. Gait/Locomotion Gait Assistance: Dependent and/or 2 Person Assist (Mod of 1 person, second person for w/c follow.) Assistive Device: wheeled walker Distance: 17 Feet Additional Gait Trial 2: Yes Gait Assistance Trial 2: Dependent and/or 2 Person Assist (Mod of 1 person, second person for w/c follow.) Assistive Device Trial 2: wheeled walker Distance Trial 2: 16 Pattern: step to, R impaired heel strike, L impaired heel strike, R decreased step length, L decreased step length, over reliance on upper extremities, decreased zenon (steps per minute), shuffle Gait Loss(es) of Balance: intermittent Environment/Terrain: open/community environment, multiple distractions Skilled Intervention Provided: verbal cues For: activity tolerance, gait technique, gait sequence, fall prevention, improved posture, LE management Resulting in: improved activity tolerance, improved performance Skilled Intervention: Mod needed for standing balance and safety with gait training. Second person needed for close w/c follow for safety. Pt demos lesly knee instability with gait. Verbal cues for focus on knee stability in stance phase throughout trial. Exercise Supine Exercises: Pt performs lesly leg press on moveo to improve LE strength. Pt performs 4 sets of 15 reps at 10,15,15,15 degree inclines. Verbal cues for hip alignment and eccentric control. Skilled Intervention Provided: verbal cues, instruction on proper technique/alignment For: achieving full ROM as tolerated, frequency of exercise(s), muscle activation, number of repetitions Resulting in: improved activity tolerance, improved functional strength/ROM Skilled Intervention: Recumbent bike for 10 min on level 1 resistane to improve LE strength, LE reciprocal motion, and functional endurance. Home Living Obtained Home Living and PLOF info from: Patient, Patient s family member Unable to obtain Home Living and PLOF info on initial eval: Patient is a questionable historian Lives With: Spouse (Idalia) Type of Home: House Home Layout: One level (laundry on main floor. Does not need to go to basement.) Rails on inside stairs: 2 rails Number of stairs inside home: 16 Steps to enter home: Yes Rails to enter home: 1 rail, L rail going up (+ bilateral grab bars on doorframe) Number of stairs to enter home: 3 Bathroom Shower/Tub: Walk-in shower, Main level (3 threshold to enter) Bathroom Toilet: Raised, Main level Bathroom Equipment: Grab bars in shower, Hand-held showerhead, Shower chair, Bedside commode, Toilet seat capacity analyst (toilet safety frame) Mobility Equipment: Cane, Wheeled walker, Rollator (Spare bed has adjustable features (their specific bed is not adjustable)) ADL Equipment: (none) Additional Objective Details - Home Living: Pt was standing to shower prior to admit. All information verified with spouse who is present during session. Pt with incorrect responses at times with self-report of home setup. 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 For complete objective data, detailed plan of care and patient education refer to: PT EVALUATION flowsheet, PT TREATMENT flowsheet, patient Plan of Care, Plan of Care progress note, and Patient Education. Cosigned by Aston Turk, PT at 03/29/2025 3:12 PM EDT Inpatient Rehab Occupational Therapy - Daily Progress Note OT Time Calculation Start Time: 1031 Stop Time: 1131 Time Calculation (min): 60 min OT Individual Therapy Min: 60 Therapy Precautions Orthotic Devices: No Weight Bearing Status: WFL General Rehab Precautions: Back, Fall Risk Cognition Overall Cognitive Status: Impaired Arousal/Alertness: Appropriate responses to stimuli Orientation Level: Oriented X4 Executive functioning: Insight, Planning / Organizing Safety Judgment: Decreased awareness of need for safety Problem Solving: Assistance required to identify errors made, Assistance required to generate solutions Attention: Attends to quiet environment, Impaired Hearing Status: WFL Social Interaction: Cooperative, Lethargic Comments: Pt initially participating in therapy session but demoing increased lethargy as session progressed with frequent cueing to remain alert/keep eyes open with pt reporting feeling very tired. Spouse reports concerns as pt not sleeping well due to difficulty tolerating hospital-borrowed CPAP machine. Bed Mobility Sit to Lying: Partial/Moderate Assistance, Head of bed flat (min A) Book Cleaner: bedrails Skilled Intervention Provided: facilitation, monitoring patient response with activity, patient education For: LE positioning, LE management, efficient movement, fall prevention, logroll technique Resulting In: improved activity tolerance, improved performance Skilled Intervention: Requies min A for transitioning LE up to EOB with cueing for log rolling for back precautions. Once in bed, BP 97/68 mmHg Functional Transfers Sit to Stand: Partial/Moderate Assistance (min-mod A) Bed to Chair Transfers: Partial/Moderate Assistance (mod A) Stand Pivot Transfers: Partial/Moderate Assistance (mod A x 1 to transfer w/c to EOM and mod A x 1 + CGA x 1 for safety to return EOM to w/c with increased assist for safety due to low BP.) Book Cleaner: BUE Skilled Intervention Provided: verbal cues, facilitation, monitoring patient response with activity, patient education For: LE positioning, UE positioning, controlled descent, self-monitoring during activity, safety during functional task(s), safe use of AD and/or equipment, weight shifting, efficient movement, fall prevention Resulting In: improved activity tolerance, improved performance, improved safety Skilled Intervention: Attempted use of walker with pt declining, reporting feels like his right knee was going to buckle and unable to bear weight safely for walker use. Requires knee block for increased stability with assist for SPT. Balance Treatment Sitting Balance - Static: Supervision or Touching Assistance, with back unsupported, greater than 5 minutes, without UE support, with unilateral LUE support, with unilateral RUE support, with bilateral UE support (SBA seated EOM) Loss of Balance - Sitting Static: (none) Sitting Balance - Dynamic: Partial/Moderate Assistance, Supervision or Touching Assistance, without UE support, with back unsupported, greater than 5 minutes, with unilateral LUE support, with unilateral RUE support (SBA-CGA) Loss of Balance - Sitting Dynamic: (none) Sitting Balance Treatment: weight shifting anterior, weight shifting posterior, weight shifting left, weight shifting right, reaching across midline, reaching outside base of support, reaching within base of support, decreased UE support Skilled Intervention Provided: verbal cues, facilitation For: balance recovery, efficient movement, fall prevention, safe use of AD and/or equipment, self-monitoring during activity, trunk control, weight shifting Resulting in: improved activity tolerance, improved functional independence, improved performance, improved safety Standing Balance - Static: Partial/Moderate Assistance, with unilateral LUE support, with unilateral RUE support, 1+ to 3 minutes (min) Book Cleaner - Standing Static: (elevated tabletop) Standing Balance Treatment: weight shifting posterior, weight shifting right, reaching within base of support, decreased UE support Skilled Intervention Provided: verbal cues, tactile cues, facilitation, patient education, neuromuscular re-education For: activity tolerance, balance recovery, fall prevention, efficient movement, self-monitoring during activity, weight shifting, trunk control Resulting in: improved activity tolerance, improved balance reactions, improved awareness, improved trunk stability, increased insight into deficits Skilled Intervention: Pt participated in dynamic sitting balance seated at EOM with SBA-CGA for safe balance while reaching into all planes including overhead, crossing midline and outside AMRK to tap balloon in air and with bilat UE holding small pool noodle with no LOB noted. Pt stood at elevated tabletop to increase standing tolerance and balance for ADL tasks. Pt requiring min A for standing balance with right knee blocked to prevent bucking and mod vc/tc for postural corrections and weight shifting to achieve balance due to increased flexed/stooped posture and knee buckling. Pt reporting very fatigued this date. Demoed increased self correction of posture as task progressed. Pt stood x 2:50, 2:20, 2:30, 2:00 minutes while placing x-small plastic pegs into board. Reports feeling more fatigued and having difficulty keeping eyes open. BP 87/62 mmHg. Nursing notified. Home Living Obtained Home Living and PLOF info from: Patient, Patient s family member Unable to obtain Home Living and PLOF info on initial eval: Patient is a questionable historian Lives With: Spouse (Idalia) Type of Home: House Home Layout: One level (laundry on main floor. Does not need to go to basement.) Rails on inside stairs: 2 rails Number of stairs inside home: 16 Steps to enter home: Yes Rails to enter home: 1 rail, L rail going up (+ bilateral grab bars on doorframe) Number of stairs to enter home: 3 Bathroom Shower/Tub: Walk-in shower, Main level (3 threshold to enter) Bathroom Toilet: Raised, Main level Bathroom Equipment: Grab bars in shower, Hand-held showerhead, Shower chair, Bedside commode, Toilet seat capacity analyst (toilet safety frame) Mobility Equipment: Cane, Wheeled walker, Rollator (Spare bed has adjustable features (their specific bed is not adjustable)) ADL Equipment: (none) Additional Objective Details - Home Living: Pt was standing to shower prior to admit. All information verified with spouse who is present during session. Pt with incorrect responses at times with self-report of home setup. 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 For complete objective data, detailed plan of care and patient education refer to: OT EVALUATION flowsheet, OT TREATMENT flowsheet, patient Plan of Care, Plan of Care progress note, and Patient Education. 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 for the last 2 years - Noted masked facies, shuffling gait, tremors, bradykinesia - Low dose Sinemet ordered 03/25 - Increased Sinemet to 1 tab at lunch and 0.5 tabs with breakfast and dinner- can continue to increase as needed RAFAEL - Patient uses CPAP at home, family to bring in machine Dementia - Continue Donepezil HTN - Continue Lisinopril, Metoprolol - Blood pressure parameters put in place for hypotension - Lisinopril decreased 03/26 for hypotension Hyperthyroidism - Continue Levothyroxine GERD - Continue Pantoprazole HLD - Continue Atorvastatin, Zetia 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 He reports that he slept well overnight. He denies any CP or SOB. He denies any headaches. His last BM was 2 days ago. He denies any side effects or benefits from the Sinemet started for him yesterday. Review of systems: No cp, SOA, n/v/d. Temp: [97.5 F (36.4 C)-98.4 F (36.9 C)] 97.6 F (36.4 C) Heart Rate: [71-97] 91 Resp: [15-16] 15 BP: (105-118)/(68-71) 114/70 Physical Exam: General Appearance: In no apparent distress, well nourished HEENT: Normocephalic, atraumatic, neck supple, EOMI, PER Respiratory: On room air, no respiratory distress Cardiovascular: Peripheral pulses palpable, no edema Abdomen: Nontender, nondistended Musculoskeletal: No acute injury or gross deformity, 5/5 b/l shoulder flexion strength Skin: No rashes visualized, normal paplaption of skin and soft tissues Psychiatric: Normal mood and affect, appropriate insight and judgement Therapy Assessments: Assessments per PT, OT, ST documentation (last filed value): Home Living Type of Home: House (03/24/251028) Home Layout: One level (laundry on main floor. Does not need to go to basement.) (03/24/251028) Bathroom Shower/Tub: Walk-in shower, Main level (3 threshold to enter) (03/24/251028) Bathroom Toilet: Raised, Main level (03/24/251028) Bathroom Equipment: Grab bars in shower, Hand-held showerhead, Shower chair, Bedside commode, Toilet seat capacity analyst (toilet safety frame) (03/24/251028) Bathroom Accessibility: (not recorded) Mobility Equipment: Cane, Wheeled walker, Rollator (Spare bed has adjustable features (their specific bed is not adjustable)) (03/24/251028) Additional Objective Details - Home Living: Pt was standing to shower prior to admit. All information verified with spouse who is present during session. Pt with incorrect responses at times with self-report of home setup. 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 Spouse reports every now and then she would make pt use the WW if more unsteady that day. Pt did not ambulate in community (stayed in car when going to store, etc); spouse reports his legs would get tired easily.Spouse does indoor IADLs and patient was doing yardwork/mowing. Pt injured R shoulder ~2 months ago (had started physical therapy) - spouse reporting it was a chronic RTC tear from MRI. Son and DIL live next door and had taken over barn chores. Spouse was handling the finances and meds for patient. (03/24/251028) Current Level of Function Balance: Sitting Balance - Static: Supervision or Touching Assistance (SBA) (03/27/25729) Sitting Balance - Dynamic: Supervision or Touching Assistance (CGA) (03/27/25729) Standing Balance - Static: Partial/Moderate Assistance (min assist) (03/27/25729) Standing Balance - Dynamic: Partial/Moderate Assistance (min-mod) (03/27/25729) Bed Mobility: Roll Left and Right: Supervision or Touching Assistance (CGA) (03/27/25729) Lying to Sitting on Side of Bed: Substantial/Maximal Assistance, Head of bed elevated (Mod assist) (03/27/25729) Sit to Lying: Substantial/Maximal Assistance (to bring LE's up onto bed surface and manage UB into midline.) (03/27/25 1120) Transfers: Sit to Stand: Partial/Moderate Assistance (min assist) (03/27/25729) Bed to Chair: (not recorded) Stand Pivot Transfers: Partial/Moderate Assistance (mod assist) (03/27/25729) Squat Pivot Transfers: (not recorded) Book Cleaner: BUE (03/27/25729) Gait/Locomotion: Gait Assistance: Dependent and/or 2 Person Assist (mod assist x2, and w/c follow) (03/27/25 07) Assistive Device: wheeled walker (03/27/25 0730) Distance: 15 Feet (03/27/25729) Pattern: R impaired heel strike, L impaired heel strike, R decreased step length, L decreased step length, over reliance on upper extremities, forward flexed, antalgic, decreased zenon (steps per minute) (03/27/25 07) Weight Bearing Status: able to maintain (03/27/25 07) ADL & IADL Feeding: (not recorded) Meal Prep: (not recorded) Grooming: Supervision or Touching Assistance (SBA seated at sink) (03/27/25 1120) Upper Body Bathing: Partial/Moderate Assistance (Min) (03/24/25 1029) Lower Body Bathing: Dependent and/or 2 Person Assist (03/24/25 1029) Upper Body Dressing: Partial/Moderate Assistance (mod A seated EOB) (03/25/25 0700) Lower Body Dressing: Partial/Moderate Assistance (modA) (03/27/25 1120) Toileting: Partial/Moderate Assistance (modA) (03/27/25 1120) Speech Therapy Speech Functional Diagnosis: CVA: (not recorded) Speech/Language (Unrelated to CVA): (not recorded) Cognition (Unrelated to CVA): R41.840 Attention and concentration deficit., R41.841 Cognitive communication deficit. (03/24/25 1325) Dysphagia (Unrelated to CVA): (not recorded) Voice (Unrelated to CVA): (not recorded) Inpatient Rehab Speech Language Pathology - Daily Note MERCHANDISING EXECUTION ASSOCIATE Time Calculation Start Time: 914 Stop Time: 1014 Time Calculation (min): 60 min MERCHANDISING EXECUTION ASSOCIATE Individual Therapy Min: 60 Recommendations: PO Recommendations: NDD diet NDD diet recommendation: Regular solids, Thin liquids Barriers Returning to Prior Level of Function: Body Structure and Function: Musculoskeletal impairment, Neurologic impairment Explain Impairments: s/p discectomy, encephalopathy Activities and Participation: Executive function limitation Explain Limitations: cognitive deficits Environmental Factors: Home situation Explain Environmental Factors: lives w/spouse Skilled Therapy Discharge Needs: Are Skilled Therapy Services Needed After Discharge: (TBD) Subjective Pt participated in skilled cognitive tx this date (60 min). Pt was seen sitting upright in WC in the speech room, pt was cooperative and pleasant throughout session, no family/friends present. Objective 1. ST O-Log - Patient will score a 25 or above on two separate administrations of the O-Log. - MET 2. ST Memory - Patient will complete memory tasks with the use of memory strategies with 80% accuracy and minimal cues. 3. ST Problem Solving - Patient will complete basic problem solving, reasoning, safety awareness, and attention tasks with 80% accuracy and min cues. 4. ST Executive Function - Patient will complete basic sequencing, planning, and organizing tasks with 80% accuracy and min cues. Assessment 2. Pt completed immediate and short term recall via recall of 12 pictured items w/use of grouping and repetition strategies w/83% acc w/mod I for immediate recall (and benefited from min A semantic cueing to increase acc to 100%) and 100% acc w/mod I following a 5 min delay w/a distractor. 3. Pt completed problem solving, reasoning, attention and mental math calculation via time related word problems w/64% acc w/mod I and benefited from min A semantic cueing to increase acc to 100%. Pt completed problem solving, reasoning, attention and safety awareness via problem solving missing equipment task w/100% acc w/mod I. Plan Will continue per POC Handoff given to primary RN. Aparna Valladares MA CCC-MERCHANDISING EXECUTION ASSOCIATE [facility] [place] PROGRESS NOTE Patient name: Gracie Lemons Date of : 1950 Assessment and plan Gracie Lemons is a 75 y.o. male patient of Armando Kohli MD with history of anemia, BPH, CAD, DM, GERD, HLD, HTN, RAFAEL, and CVA presented to IRF on 03/23/2025 with debility s/p T7-8 discectomy. Debility Impaired Mobility and ADLs Comprehensive Rehab with PT/OT/ST PMR following T7-T8 Discectomy Right Side Weakness Parkinsonian Features T7-8 Discectomy on 03/11 at [facility] with neurosurgery Patient with subsequent Right side weakness Neurology at [employer] believes it to possibly be lumbosacral plexopathy Patient with Parkinsonian features including masked facies, hypophonic speech, cogwheeling rigidity of axial and appendicular muscles, and bradykinesia A referral has been sent to [facility] Continue Flexeril, gabapentin, and nortriptyline Continue low dose Sinemet, may need to up titrate if no response in a week. May titrate up to 1 pill on 04/01/25 Noted that PT is not seeing a shuffling gait in last two treatments Pressure Injury Coccyx, POA Pressure Injury gluteal fold, POA Consult Wound Care - orders placed Fibrotic Lung Disease Continue Mucinex Ordered home OFEV, family brought in it is non-formulary History of CVA CAD HTN HLD Continue atorvastatin, Plavix, Zetia, lisinopril, and metoprolol Type 2 Diabetes HgbA1C 7.7 in June 2024 Diabetic Diet Sliding Scale Insulin Recommend outpatient follow-up Hypothyroidism Will check TSH and reflex T4 Continue levothyroxine Cognitive Disorder Continue donepezil GERD Continue Protonix Vitamin D Deficiency Continue Supplementation RAFAEL CPAP ordered, refused overnight 2L/NC while sleeping if refusing CPAP Chronic Anemia Hgb 13.0 Baseline Hgb 10-13 Continue Ferrous Sulfate Overweight BMI 29.09 Encourage Diet and Lifestyle modifications Discharge planning Medically ready for discharge: no Patient and/or family has been notified they are expected to be medically stable for discharge on the following date: 04/07/25 Patient requires continued hospitalization due to: Inpatient Rehab Discussed with the patient and/or family that the following is a potential discharge location, understanding that the final plan will depend on the patient's progress and shared decision-making: Home with home health The following resources have been ordered to assist with discharge barriers: care management, PT, OT Quality measures DVT prophylaxis: lovenox Lei catheter: absent Code status Full Code Subjective Patient sitting up in bed eating breakfast. Discussed with patient and if they have noticed any improvement with the Sinemet. They have not at this time. Objective BP 114/66 Pulse 88 Temp 98.9 F (37.2 C) Resp 18 Ht 5' 5 Wt 79.3 kg (174 lb 13.2 oz) SpO2 94% BMI 29.09 kg/m General appearance: alert; chronically ill appearing; in no acute distress HEENT: Head- normocephalic; Eyes- EOMI, sclera anicteric; Throat- mucous membranes moist Cardiovascular: regular rate and rhythm; normal S1, S2; no murmurs, rubs, clicks or gallops; peripheral edema absent Respiratory: lungs clear to auscultation; without wheezes, rales or rhonchi; on room air Abdomen: soft, non-tender, non-distended Neurological: oriented x 3; normal speech; parkinsonian movements, right side weakness Musculoskeletal: no significant deformity, unable to extend right arm all the way Skin: normal coloration Psych: normal mood and affect Inpatient Rehab Occupational Therapy - Daily Progress Note OT Time Calculation Start Time: 1120 Stop Time: 1220 Time Calculation (min): 60 min OT Individual Therapy Min: 60 Outcome Measures Therapy Precautions Orthotic Devices: No Weight Bearing Status: WFL General Rehab Precautions: Back, Fall Risk Cognition Overall Cognitive Status: Impaired Arousal/Alertness: Appropriate responses to stimuli Orientation Level: Oriented X4, With cues Safety Judgment: Decreased awareness of need for safety Problem Solving: Assistance required to identify errors made, Assistance required to generate solutions Attention: Attends to quiet environment Hearing Status: WFL Social Interaction: Appropriate, Cooperative (fatigues very quickly needing freq rest breaks.) Comments: Spouse present during session actively assist when able. ADL Grooming: Supervision or Touching Assistance (SBA seated at sink) Grooming - Skilled Intervention Provided: monitored patient's safety and tolerance Grooming - For: attention to task, self-monitoring Grooming - Resulting In: improved participation in ADL task Skilled Intervention: Pt able to wash hands p toileting, wet and comb hair. Toileting: Partial/Moderate Assistance (modA) Toileting - Skilled Intervention Provided: [id number] instructions Toileting - For: postural alignment, attention to task Toileting - Resulting In: improved participation in ADL task Skilled Intervention: Pt standing with walker and side grab by toilet to assist in doffing and redonning clothing over hips, seated hygiene still needing katharine for throughness p BM. Lower Body Dressing: Partial/Moderate Assistance (modA) Lower Body Dressing - Skilled Intervention Provided: [id number] instructions, patient education, caregiver/family education with patient involvement Lower Body Dressing - For: adaptive equipment use, adaptive techniques for lower body ADLs, necessary precautions Lower Body Dressing - Resulting In: improved participation in ADL task, improved awareness, improved caregiver/family awareness Skilled Intervention: Pt using handkerchief sample clerk and sock-aid to doff and redon socks, depends and PJ shorts seated on toilet standing at walker to manage over hips with modA. Bed Mobility Sit to Lying: Substantial/Maximal Assistance (to bring LE's up onto bed surface and manage UB into midline.) Book Cleaner: patient slide sheet / friction-reducing device Skilled Intervention Provided: provided step by step instructions For: LE management, UE positioning, efficient movement, sequencing of movement Resulting In: increased initiation in mobility task(s) Functional Transfers Sit to Stand: Supervision or Touching Assistance, Partial/Moderate Assistance (min/modA depending on surface height) Bed to Chair Transfers: Partial/Moderate Assistance (modA) Toilet Transfers: Partial/Moderate Assistance (min/modA) Book Cleaner: wheeled walker Skilled Intervention Provided: provided step by step instructions For: UE positioning, pursed lip breathing, safety during functional task(s), sequencing of movement Resulting In: increased initiation/participation in mobility task(s) Exercise Seated Exercises: Pt supported in wheelchair to complete varies UB strengthening ex's with modified positions for RUE to past cuff injury teo sets of 5reps each appearing very fatigued and sleepy towards end of session p completing 75% of session with ADL skills. Breathing Training: Pursed lip breathing Skilled intervention provided: patient education For: proper positioning of extremity, number of repetitions, breath control/breathing pattern with exercise Resulting In: improved initiation Balance Treatment Sitting Balance - Dynamic: Supervision or Touching Assistance (CGA) Loss of Balance - Sitting Dynamic: (wanting to lean and rest forearms on wheelchair, grab bars or walker in varies setting due to fatigue.) Sitting Balance Treatment: maintaining midline orientation, reaching within base of support, reaching across midline, upright gaze Skilled Intervention Provided: patient education, verbal cues For: balance recovery, midline orientation, trunk control Resulting in: improved initiation, improved trunk stability Standing Balance - Static: Partial/Moderate Assistance, with device, with unilateral LUE support, with unilateral RUE support, 1+ to 3 minutes (Katharine) Book Cleaner - Standing Static: wheeled walker Standing Balance - Dynamic: Partial/Moderate Assistance, with device, 30 seconds to 1 minute (min/modA) Book Cleaner - Standing Dynamic: same clinical laboratory aide used for static standing tasks Skilled Intervention Provided: patient education For: LE management, safe use of AD and/or equipment, self-monitoring during activity, sequencing of movement Resulting in: improved initiation Home Living Obtained Home Living and PLOF info from: Patient, Patient s family member Unable to obtain Home Living and PLOF info on initial eval: Patient is a questionable historian Lives With: Spouse (Idalia) Type of Home: House Home Layout: One level (laundry on main floor. Does not need to go to basement.) Rails on inside stairs: 2 rails Number of stairs inside home: 16 Steps to enter home: Yes Rails to enter home: 1 rail, L rail going up (+ bilateral grab bars on doorframe) Number of stairs to enter home: 3 Bathroom Shower/Tub: Walk-in shower, Main level (3 threshold to enter) Bathroom Toilet: Raised, Main level Bathroom Equipment: Grab bars in shower, Hand-held showerhead, Shower chair, Bedside commode, Toilet seat capacity analyst (toilet safety frame) Mobility Equipment: Cane, Wheeled walker, Rollator (Spare bed has adjustable features (their specific bed is not adjustable)) ADL Equipment: (none) Additional Objective Details - Home Living: Pt was standing to shower prior to admit. All information verified with spouse who is present during session. Pt with incorrect responses at times with self-report of home setup. 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 For complete objective data, detailed plan of care and patient education refer to: OT EVALUATION flowsheet, OT TREATMENT flowsheet, patient Plan of Care, Plan of Care progress note, and Patient Education. Cosigned by Jaspreet Gudino OT at 03/28/2025 1:41 PM EDT Inpatient Rehab Speech Language Pathology - Daily Note MERCHANDISING EXECUTION ASSOCIATE Time Calculation Start Time: 1015 Stop Time: 1115 Time Calculation (min): 60 min MERCHANDISING EXECUTION ASSOCIATE Individual Therapy Min: 60 Recommendations: PO Recommendations: NDD diet NDD diet recommendation: Regular solids, Thin liquids Barriers Returning to Prior Level of Function: Body Structure and Function: Musculoskeletal impairment, Neurologic impairment Explain Impairments: s/p discectomy, encephalopathy Activities and Participation: Executive function limitation Explain Limitations: cognitive deficits Environmental Factors: Home situation Explain Environmental Factors: lives w/spouse Skilled Therapy Discharge Needs: Are Skilled Therapy Services Needed After Discharge: (TBD) Subjective Pt seen this date in speech room, upright in wheelchair, present in room. Pt actively participated throughout entire session. Objective 1. ST O-Log - Patient will score a 25 or above on two separate administrations of the O-Log. 2. ST Memory - Patient will complete memory tasks with the use of memory strategies with 80% accuracy and minimal cues. 3. ST Problem Solving - Patient will complete basic problem solving, reasoning, safety awareness, and attention tasks with 80% accuracy and min cues. 4. ST Executive Function - Patient will complete basic sequencing, planning, and organizing tasks with 80% accuracy and min cues. Assessment Pt received a score of 29/30 on the O-log. Pt required min verbal logical cue to identify accurate date of 11. Pt reported feeling confused at times, ST provided education re: frequent orientation and board in room with orientation information on it. Pt created calendar of current month to laith date of admission to rehab, potential discharge date, and today's date; pt required logical cue to recall date of the . Pt demonstrated ability to accurately identify days until potential discharge and current number of days in rehab. ST provided education re: WRAP memory strategy. Pt demonstrated use of W - write it and R - repeat it, to recall schedule of therapy for the day. Pt demonstrated ability to recall type of therapy in schedule order with 66% accuracy and did not benefit from logical cue to reason last therapy for the day. Pt identified time of therapy with 0% accuracy independently, utilizing written cue pt increased accuracy to 100%. Pt completed deductive reasoning task and identified accurate item with 80% accuracy and increased accuracy to 100% with moderate verbal cues, pt provided accurate reasoning across task with 100%. Plan Continue per POC. Handoff given to primary RN. For complete objective data, detailed plan of care, and education refer to: Speech Therapy Comm/COG flowsheets, Bedside Swallow Evaluation flowsheets, MBS-FEES Navigator, as well as patient Plan of Care and Education documentation. [facility] [place] PROGRESS NOTE Patient name: Gracie Lemons Date of : 1950 Assessment and plan Gracie Lemons is a 75 y.o. male patient of Armando Kohli MD with history of anemia, BPH, CAD, DM, GERD, HLD, HTN, RAFAEL, and CVA presented to [facility] on 03/23/2025 with debility s/p T7-8 discectomy. Debility Impaired Mobility and ADLs Comprehensive Rehab with PT/OT/ST PMR following T7-T8 Discectomy Right Side Weakness Parkinsonian Features T7-8 Discectomy on 03/11 at [employer] with neurosurgery Patient with subsequent Right side weakness Neurology at [employer] believes it to possibly be lumbosacral plexopathy Patient with Parkinsonian features including masked facies, hypophonic speech, cogwheeling rigidity of axial and appendicular muscles, and bradykinesia A referral has been sent to [facility] Continue Flexeril, gabapentin, and nortriptyline Continue low dose Sinemet, may need to up titrate if no response in a week Noted that PT is not seeing a shuffling gait in last two treatments Pressure Injury Coccyx, POA Pressure Injury gluteal fold, POA Consult Wound Care Fibrotic Lung Disease Continue Mucinex Ordered home OFEV, family brought in it is non-formulary History of CVA CAD HTN HLD Continue atorvastatin, Plavix, Zetia, lisinopril, and metoprolol Type 2 Diabetes HgbA1C 7.7 in June 2024 Diabetic Diet Sliding Scale Insulin Recommend outpatient follow-up Hypothyroidism Will check TSH and reflex T4 Continue levothyroxine Cognitive Disorder Continue donepezil GERD Continue Protonix Vitamin D Deficiency Continue Supplementation RAFAEL CPAP ordered, refused overnight 2L/NC while sleeping if refusing CPAP Chronic Anemia Hgb 13.0 Baseline Hgb 10-13 Continue Ferrous Sulfate Overweight BMI 29.09 Encourage Diet and Lifestyle modifications Discharge planning Medically ready for discharge: no Patient and/or family has been notified they are expected to be medically stable for discharge on the following date: 04/07/25 Patient requires continued hospitalization due to: Inpatient Rehab Discussed with the patient and/or family that the following is a potential discharge location, understanding that the final plan will depend on the patient's progress and shared decision-making: Home with home health The following resources have been ordered to assist with discharge barriers: care management, PT, OT Quality measures DVT prophylaxis: lovenox Lei catheter: absent Code status Full Code Subjective Patient sitting up in wheelchair, no new complaints. No noticed improvement per patient on Sinemet. Objective BP 135/80 Pulse 98 Temp 97.8 F (36.6 C) (Axillary) Resp 18 Ht 5' 5 Wt 79.3 kg (174 lb 13.2 oz) SpO2 92% BMI 29.09 kg/m General appearance: alert; chronically ill appearing; in no acute distress HEENT: Head- normocephalic; Eyes- EOMI, sclera anicteric; Throat- mucous membranes moist Cardiovascular: regular rate and rhythm; normal S1, S2; no murmurs, rubs, clicks or gallops; peripheral edema absent Respiratory: lungs clear to auscultation; without wheezes, rales or rhonchi; on room air Abdomen: soft, non-tender, non-distended Neurological: oriented x 3; normal speech; parkinsonian movements, right side weakness Musculoskeletal: no significant deformity, unable to extend right arm all the way Skin: normal coloration Psych: normal mood and affect Inpatient Rehab Physical Therapy - Daily Progress Note PT Time Calculation Start Time: 0730 Stop Time: 0830 Time Calculation (min): 60 min PT Individual Therapy Min: 60 Outcome Measures Pt's spouse present and observing full Tx. Reviewed seated HEP with pt and spouse with instructions to complete over weekend. Therapy Precautions Orthotic Devices: No Weight Bearing Status: WFL General Rehab Precautions: Fall Risk, Back Balance Sitting Balance - Static: Supervision or Touching Assistance (SBA) Sitting Balance - Dynamic: Supervision or Touching Assistance (CGA) Loss of Balance - Sitting Dynamic: intermittent Standing Balance - Static: Partial/Moderate Assistance (min assist) Book Cleaner - Standing Static: wheeled walker, parallel bars Loss of Balance- Standing Static: intermittent Standing Balance - Dynamic: Partial/Moderate Assistance (min-mod) Book Cleaner - Standing Dynamic: wheeled walker, parallel bars Loss of Balance- Standing Dynamic: intermittent Standing Balance Treatment: maintaining midline, postural re-education Skilled Intervention Provided: verbal cues, environmental setup/modification, neuromuscular re-education, patient education For: LE management, balance recovery, fall prevention, improved balance, trunk control Resulting in: improved activity tolerance, improved balance reactions, improved functional independence, improved safety, improved trunk stability, increased upright tolerance for functional tasks Skilled Intervention: Pt completing standing at FWW and at parallel bars with focus on mainraining postural control with trunk and hip extension, with pt gradually progressing to supported weight shifting R and L to increase standing tolerance. Bed Mobility Roll Left and Right: Supervision or Touching Assistance (CGA) Lying to Sitting on Side of Bed: Substantial/Maximal Assistance, Head of bed elevated (Mod assist) Skilled Intervention Provided: verbal cues, monitoring patient response with activity, monitoring patient response with positional changes, patient education, provided step by step instructions For: LE management, UE positioning, logroll technique, safe use of bedrails and/or equipment, safety during functional tasks, self-monitoring during activity, sequencing of movement Resulting in: improved activity tolerance, improved performance, increased initiation in mobility task(s), increased insight into deficits, increased participation in mobility task(s), increased self-management of symptoms and impairments Skilled Intervention: Mod assist needed for logroll for supine-sit with HOB elevated Transfers Sit to Stand: Partial/Moderate Assistance (min assist) Stand Pivot Transfers: Partial/Moderate Assistance (mod assist) Book Cleaner: BUE Additional Transfer Trial 2: Yes Sit to Stand Trial 2: Partial/Moderate Assistance (min-mod assist) Book Cleaner Trial 2: wheeled walker Skilled Intervention Provided: verbal cues, environmental setup/modification, facilitation, monitoring patient response with activity, monitoring patient response with positional changes, patient education For: LE management, UE positioning, safety during functional tasks, safe use of AD and/or equipment, self-monitoring during activity, sequencing of movement Resulting in: improved activity tolerance, improved functional independence, increased insight into deficits, increased self-management of symptoms and impairments, increased upright tolerance for functional tasks Skilled Intervention: Pt requires cues for pivotting LE's for stepping and weight shifting, as well as cues for sequencing with STS and anterior weight shift with correct positioning of UE's. Gait/Locomotion Gait Assistance: Dependent and/or 2 Person Assist (mod assist x2, and w/c follow) Assistive Device: wheeled walker Distance: 15 Feet Rest Breaks: Yes Rest Break Position: seated Rest Break Duration: 2 min Additional Gait Trial 2: Yes Gait Assistance Trial 2: Dependent and/or 2 Person Assist (mod assist x2 and w/c follow of another) Assistive Device Trial 2: wheeled walker Distance Trial 2: 18 Rest Breaks Trial 2: Yes Rest Break Position Trial 2: seated Rest Break Duration Trial 2: 5 min Pattern: R impaired heel strike, L impaired heel strike, R decreased step length, L decreased step length, over reliance on upper extremities, forward flexed, antalgic, decreased zenon (steps per minute) Weight Bearing Status: able to maintain Gait Loss(es) of Balance: intermittent Environment/Terrain: open/community environment, multiple distractions Skilled Intervention Provided: verbal cues, facilitation, monitoring patient response with activity, patient education For: activity tolerance, device adjustment fit to patient, device management and safe use of device, gait sequence, gait technique, necessary precautions, safety with weight bearing precautions, self-monitoring during activity Resulting in: good carryover of cues, improved activity tolerance, improved functional independence, improved safety, increased self-management of symptoms and impairments, increased upright tolerance for functional tasks Skilled Intervention: Pt requires cues for increasing MARK as well as maintaining B knee stability in stance phase. Pt fatigued after gait training. Exercise Ankle Pumps: x15 lesly Hip Flexion: x15 lesly Hip Abduction: x15 lesly Long Arc Quad: x15 lesly Seated Exercises: x15 hip ADD Skilled Intervention Provided: verbal cues, instruction on proper technique/alignment, monitoring patient response with exercise, patient education For: achieving full ROM as tolerated, breath control/breathing pattern with exercise, frequency of exercise(s), muscle activation, number of repetitions, proper positioning of extremity Resulting in: efficient movement, improved activity tolerance, improved functional strength/ROM, improved independence with HEP, improved safety Skilled Intervention: Recumbent bike L1 x8 min completed to increase LE strength, functional activity tolerance and ROM. Total of 863 steps Home Living Obtained Home Living and PLOF info from: Patient, Patient s family member Unable to obtain Home Living and PLOF info on initial eval: Patient is a questionable historian Lives With: Spouse (Idalia) Type of Home: House Home Layout: One level (laundry on main floor. Does not need to go to basement.) Rails on inside stairs: 2 rails Number of stairs inside home: 16 Steps to enter home: Yes Rails to enter home: 1 rail, L rail going up (+ bilateral grab bars on doorframe) Number of stairs to enter home: 3 Bathroom Shower/Tub: Walk-in shower, Main level (3 threshold to enter) Bathroom Toilet: Raised, Main level Bathroom Equipment: Grab bars in shower, Hand-held showerhead, Shower chair, Bedside commode, Toilet seat capacity analyst (toilet safety frame) Mobility Equipment: Cane, Wheeled walker, Rollator (Spare bed has adjustable features (their specific bed is not adjustable)) ADL Equipment: (none) Additional Objective Details - Home Living: Pt was standing to shower prior to admit. All information verified with spouse who is present during session. Pt with incorrect responses at times with self-report of home setup. 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 For complete objective data, detailed plan of care and patient education refer to: PT EVALUATION flowsheet, PT TREATMENT flowsheet, patient Plan of Care, Plan of Care progress note, and Patient Education. 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 Unit displaying message, Motor life exceeded contact care provider. Due to alert, home unit does not pass safety check. Lumis in room. Inpatient Rehab Occupational Therapy - Daily Progress Note OT Time Calculation Start Time: 1016 Stop Time: 1116 Time Calculation (min): 60 min OT Individual Therapy Min: 60 Therapy Precautions Orthotic Devices: No Weight Bearing Status: WFL General Rehab Precautions: Fall Risk, Back (incision on R lateral chest wall) Cognition Overall Cognitive Status: Impaired Arousal/Alertness: Appropriate responses to stimuli Executive functioning: Insight, Planning / Organizing Safety Judgment: Decreased awareness of need for safety, Decreased awareness of need for assistance Problem Solving: Assistance required to identify errors made, Assistance required to generate solutions, Assistance required to implement solutions Attention: Attends to quiet environment Hearing Status: WFL Social Interaction: Cooperative, Confused Comments: Pt reporting feeling confused this date ADL Grooming: Supervision or Touching Assistance (SBA) Grooming - Skilled Intervention Provided: facilitation, monitored patient's safety and tolerance Grooming - For: efficient movement Grooming - Resulting In: improved functional independence, improved participation in ADL task, improved performance with ADLs Skilled Intervention: Pt seated in w/c at sink post toileting with SBA to wash hands. Toileting: Dependent and/or 2 Person Assist Toileting - Skilled Intervention Provided: verbal cues, tactile cues, facilitation, monitored patient's safety and tolerance, patient education, [id number] instructions Toileting - For: compensatory strategies, efficient movement, fall prevention, activity tolerance, adaptive equipment use, self-monitoring, weight shifting, task simplification/modification Toileting - Resulting In: improved awareness, improved functional independence, improved participation in ADL task, improved performance with ADLs Skilled Intervention: Pt requiring max A x 1 to maintain pt balance with knees blocked to prevent buckling and bilat UE support on grab bar and w/c arm rest for total assist for clothing management from 2nd person (PSA). Pt educated on changing briefs/pants due to small incontinence of BM. See LB dressing section for details. Hygiene completed seated with CGA for balance while weightshifting toward left side to reach back. Requires additional assistance while standing for hygiene (Mod-max A x 1 for balance with knees blocked plus total assist x 1 for completing hygiene for cleanliness). Lower Body Dressing: Use of adaptive equipment, Increased time to complete, Dependent and/or 2 Person Assist Lower Body Dressing - Skilled Intervention Provided: facilitation, monitored patient's safety & tolerance, verbal cues, tactile cues, patient education, [id number] instructions Lower Body Dressing - For: LE positioning, adaptive equipment use, compensatory strategies, efficient movement, fall prevention, self-monitoring, sequencing of movement, task simplification/modification Lower Body Dressing - Resulting In: improved activity tolerance, improved awareness, improved participation in ADL task, improved performance with ADLs Skilled Intervention: Educated on compensatory techniques including use of handkerchief sample clerk for LB dressing while seated on toilet. Following cues for technique, pt doffing pants over distal LE with CGA. Required min A using handkerchief sample clerk to doff pants over feet and max A for brief to contain incontinent BM. Required min A to thread brief and mod A to thread pants over LEs and up to thighs using handkerchief sample clerk. Required x 2 assist for hiking pants and briefs up over hips (max A x 1 for standing balance with knee block plus assist from PSA for hiking clothing up) Putting On/Taking Off Footwear: Supervision or Touching Assistance, Use of adaptive equipment (SBA to doff socks using handkerchief sample clerk seated on toilet. Redonning socks not tested.) Putting On/Taking Off Footwear - Skilled Intervention: facilitation, monitored patient's safety & tolerance, verbal cues, patient education Putting On/Taking Off Footwear - For: adaptive equipment use, compensatory strategies, efficient movement Putting On/Taking Off Footwear - Resulting In: improved functional independence, improved participation in ADL task, improved performance with ADLs Functional Transfers Sit to Stand: Substantial/Maximal Assistance, Partial/Moderate Assistance (mod-max A with knee block provided) Toilet Transfers: Dependent and/or 2 Person Assist, Grab bars (mod A x 2 (w/c to toilet) and max A x 1 plus mod A x 1 (toilet to w/c)) Book Cleaner: (elevated tabletop, grab bar) Skilled Intervention Provided: verbal cues, tactile cues, facilitation, monitoring patient response with activity, patient education, provided step by step instructions For: LE positioning, UE positioning, controlled descent, efficient movement, fall prevention, safety during functional task(s), self-monitoring during activity Resulting In: improved activity tolerance, improved performance, improved safety Skilled Intervention: mod A x 2 (w/c to toilet) and max A x 1 plus mod A x 1 (toilet to w/c), noting increased assist returning to w/c due to LE fatigue. Pt performing mulitple STSs to elevated tabletop with right knee blocked to facilitate knee extension and prevent buckling with pt requiring min A initially, increasing to mod A to stand due to LE fatigued. Pt reporting LEs very fatigued from PT session. Exercise Seated Exercises: Pt participated in bilat UE exercises to increase UE strength and endurance. Pt tolerated 1 set of 15 reps with 1# dowel dhruv in elbow flex/ext and wrist flex/ext. Required unweighted dowel dhruv and AAROM for right shoulder ROM during shoulder planes x 10-15 reps in shoulder flex/ext, horizontal ABD/ADD, and chest press. Requires cueing for proper form/technique and stability of right UE due to weakness/decrease ROM. Skilled intervention provided: verbal cues, facilitation, instruction on proper technique/alignment, monitoring patient response with exercise For: achieving full ROM as tolerated, proper positioning of extremity, self-monitoring during activity, number of repetitions Resulting In: efficient movement, improved functional strength/ROM Balance Treatment Standing Balance - Static: Partial/Moderate Assistance, Substantial/Maximal Assistance, with bilateral UE support, with unilateral LUE support, 1+ to 3 minutes Book Cleaner - Standing Static: (elevated tabletop) Skilled Intervention Provided: verbal cues, tactile cues, facilitation, neuromuscular re-education, patient education For: LE positioning, UE positioning, activity tolerance, efficient movement, fall prevention, improved balance, self-monitoring during activity, weight shifting Resulting in: improved activity tolerance, improved performance, improved safety Skilled Intervention: Requires mod to max A to remain standing with bilat knees buckling. Requiring knee block to maintain extension and prevent buckling. Requires cueing to maintain unilateral UE support as tends to remove bilat UE support to engage in card sorting task and almost instantly demoing knee buckling and trunk flexion. Pt able to correct posture with vc/tc. Pt tolerated standing multiple trials of 1:15 to 2:15 minutes with requiring rest breaks between stands for recovery. Interventions Home Living Obtained Home Living and PLOF info from: Patient, Patient s family member Unable to obtain Home Living and PLOF info on initial eval: Patient is a questionable historian Lives With: Spouse (Idalia) Type of Home: House Home Layout: One level (laundry on main floor. Does not need to go to basement.) Rails on inside stairs: 2 rails Number of stairs inside home: 16 Steps to enter home: Yes Rails to enter home: 1 rail, L rail going up (+ bilateral grab bars on doorframe) Number of stairs to enter home: 3 Bathroom Shower/Tub: Walk-in shower, Main level (3 threshold to enter) Bathroom Toilet: Raised, Main level Bathroom Equipment: Grab bars in shower, Hand-held showerhead, Shower chair, Bedside commode, Toilet seat capacity analyst (toilet safety frame) Mobility Equipment: Cane, Wheeled walker, Rollator (Spare bed has adjustable features (their specific bed is not adjustable)) ADL Equipment: (none) Additional Objective Details - Home Living: Pt was standing to shower prior to admit. All information verified with spouse who is present during session. Pt with incorrect responses at times with self-report of home setup. 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 For complete objective data, detailed plan of care and patient education refer to: OT EVALUATION flowsheet, OT TREATMENT flowsheet, patient Plan of Care, Plan of Care progress note, and Patient Education. Cosigned by Jaspreet Gudino OT at 03/28/2025 1:40 PM EDT PM&R Progress note ASSESSMENT/PLAN: A: Gracie Lemons continues to demonstrate impairments and medical need appropriate for comprehensive acute inpt rehab T7/T8 discectomy 2/2 thoracic spinal stenosis - Continue Ibuprofen prn pain - Do not order Tylenol based on allergy - Flexeril scheduled for muscle spasms - Transferred to IRF 03/23 - Initiate PT/OT for ADLs, transfers and ambulation RLE weakness - Likely 2/2 plexopathy due to positioning during surgery - Continue PT/OT - Consider CT head if other stroke like symptoms occur 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 instability for the last 2 years - Noted masked facies, shuffling gait, tremors - Low dose Sinemet ordered 03/25 RAFAEL - Patient uses CPAP at home, family to bring in machine Dementia - Continue Donepezil HTN - Continue Lisinopril, Metoprolol - Blood pressure parameters put in place for hypotension - Lisinopril decreased 03/26 for hypotension Hyperthyroidism - Continue Levothyroxine GERD - Continue Pantoprazole HLD - Continue Atorvastatin, Zetia 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 He reports that he slept well overnight. He denies any CP or SOB. He denies any headaches. His last BM was 2 days ago. He denies any side effects or benefits from the Sinemet started for him yesterday. Review of systems: No cp, SOA, n/v/d. Temp: [97.9 F (36.6 C)-98.3 F (36.8 C)] 97.9 F (36.6 C) Heart Rate: [95-121] 95 Resp: [14-17] 14 BP: (91-113)/(40-67) 106/61 Physical Exam: General Appearance: In no apparent distress, well nourished HEENT: Normocephalic, atraumatic, neck supple, EOMI, PER Respiratory: On room air, no respiratory distress Cardiovascular: Peripheral pulses palpable, no edema Abdomen: Nontender, nondistended Musculoskeletal: No acute injury or gross deformity Neuro: A&Ox3 Skin: No rashes visualized, normal paplaption of skin and soft tissues Psychiatric: Normal mood and affect, appropriate insight and judgement Therapy Assessments: Assessments per PT, OT, ST documentation (last filed value): Home Living Type of Home: House (03/24/251028) Home Layout: One level (laundry on main floor. Does not need to go to basement.) (03/24/25 102) Bathroom Shower/Tub: Walk-in shower, Main level (3 threshold to enter) (03/24/251028) Bathroom Toilet: Raised, Main level (03/24/25 102) Bathroom Equipment: Grab bars in shower, Hand-held showerhead, Shower chair, Bedside commode, Toilet seat capacity analyst (toilet safety frame) (03/24/25 102) Bathroom Accessibility: (not recorded) Mobility Equipment: Cane, Wheeled walker, Rollator (Spare bed has adjustable features (their specific bed is not adjustable)) (03/24/25 102) Additional Objective Details - Home Living: Pt was standing to shower prior to admit. All information verified with spouse who is present during session. Pt with incorrect responses at times with self-report of home setup. 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 Spouse reports every now and then she would make pt use the WW if more unsteady that day. Pt did not ambulate in community (stayed in car when going to store, etc); spouse reports his legs would get tired easily.Spouse does indoor IADLs and patient was doing yardwork/mowing. Pt injured R shoulder ~2 months ago (had started physical therapy) - spouse reporting it was a chronic RTC tear from MRI. Son and DIL live next door and had taken over barn chores. Spouse was handling the finances and meds for patient. (03/24/25 102) Current Level of Function Balance: Sitting Balance - Static: Supervision or Touching Assistance (SBA/CGA sitting EOB) (03/24/25914) Sitting Balance - Dynamic: Supervision or Touching Assistance (CGA sitting EOB) (03/24/25914) Standing Balance - Static: Dependent and/or 2 Person Assist (Mod to Max Ax2) (03/25/25 1015) Standing Balance - Dynamic: Dependent and/or 2 Person Assist (Max Ax2) (03/25/25 1015) Bed Mobility: Roll Left and Right: (not recorded) Lying to Sitting on Side of Bed: Substantial/Maximal Assistance, Head of bed elevated (Mod-max) (03/26/25 0735) Sit to Lying: Substantial/Maximal Assistance, Head of bed elevated (Mod-max) (03/26/25 0735) Transfers: Sit to Stand: Partial/Moderate Assistance (Min) (03/26/2535) Bed to Chair: (not recorded) Stand Pivot Transfers: Partial/Moderate Assistance (Min-mod) (10/10/25 0735) Squat Pivot Transfers: (not recorded) Book Cleaner: wheeled walker (03/26/25 07) Gait/Locomotion: Gait Assistance: Dependent and/or 2 Person Assist (Min-mod of 2 people) (03/26/25 07) Assistive Device: wheeled walker (03/26/25 07) Distance: 30 Feet (03/26/25 07) Pattern: R impaired heel strike, L impaired heel strike, R decreased step length, L decreased step length, over reliance on upper extremities, decreased zenon (steps per minute) (03/26/25 07) Weight Bearing Status: (not recorded) ADL & IADL Feeding: (not recorded) Meal Prep: (not recorded) Grooming: Supervision or Touching Assistance (SBA) (03/25/25 07) Upper Body Bathing: Partial/Moderate Assistance (Min) (03/24/25 1029) Lower Body Bathing: Dependent and/or 2 Person Assist (03/24/25 1029) Upper Body Dressing: Partial/Moderate Assistance (mod A seated EOB) (03/25/25 07) Lower Body Dressing: Substantial/Maximal Assistance, Increased time to complete, Use of adaptive equipment (max A) (03/25/25 07) Toileting: (not recorded) Speech Therapy Speech Functional Diagnosis: CVA: (not recorded) Speech/Language (Unrelated to CVA): (not recorded) Cognition (Unrelated to CVA): R41.840 Attention and concentration deficit., R41.841 Cognitive communication deficit. (03/24/25 1325) Dysphagia (Unrelated to CVA): (not recorded) Voice (Unrelated to CVA): (not recorded) Date: 03/26/2025 Time: 10:21 AM Patient Name: Gracie Lemons Date of : 1950 Discharge Disposition Update: 1000- To room to see pt , currently out of the room , will attempt to see pt again at a later time. Target dc date of 04/07/25 written on white board in the room. Plan A: Home (HHC vs OP) Plan B: [facility] Facility Transportation: To be determined . Discharge Disposition: Plan to dc home with spouse , anticipate need to continue therapies upon discharge . 1150- CARE MANAGEMENT ASSESSMENT Pt seen by Care Management , assessment completed . Introduced self to patient, CM Services explained; pt agreeable to CM assessment . Assessment completed with: Spoke with pt and his at bedside. Consult received and chart reviewed including pertinent past medical history: Chart has been reviewed, see H&P for relevant medical history. Confirmed demographics, pharmacy provider /coverage and PCP with pt. Demographics and PCP are confirmed. Pt verbalized Living Arrangements & listed support systems as: *Level of function prior to admit: Pt lives home with his Idalia Their son Idalia , lives the next driveway over. Pt was mostly indpt at home, but recently had to use a cane then a walker due to lower extremity weakness He has an AFO for his LLE, but he does not use often as it is not comfortable. Ok to speak with family : yes Use of assisted device QUALITY ASSURANCE AUDITOR: yes Hx of recent falls QUALITY ASSURANCE AUDITOR : yes FINANCES: Reviewed admission insurance coverage as listed on face sheet . Denies transportation, medication or food insecurity. Denies any concerns relating to obtaining medications or follow up medical care. Denies any concerns relating to housing. Current Home Equipment as listed in progress note. Anticipated HME discussed & potential out of cost:. *discussed Can manage medications / compliant with taking medications as prescribed: Takes: Per self after his sets up meds in pill box for him. 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 Uses transport resource: No pt can drive, but his usually drives. Home Health Services/Community Resource QUALITY ASSURANCE AUDITOR: (List of possible services services QUALITY ASSURANCE AUDITOR: [facility]) Used any of above prior to admit: None of the above. DISCHARGE CARE RESOURCES: Pt has an established PCP. The patient is not currently receiving home health services/ OP therapy services prior to admit. Confirmed patient reports having a teachable home health care coordinator at discharge. Pt does not have association with [facility] such as [employer] or [place] [employer]/ [employer]. Pt is not a [place] , does not use [facility] or their services/benefits. Patient Goal upon discharge from In patient rehab unit: Pt plans to return to home with his at discharge. Explained role of CM, discharge planning process , target dc date of 04/07/25 discussed & encouraged family involvement in rehab process. -Discharge date written on white board in pt room : 04/07/25 -Average LOS for rehab unit also discussed, -Explained we have Rehab treatment team meetings on Tuesdays planning & progress discussed. (Informed family/pt does not attend this meeting) Therapy scheduling /times explained to pt /visitor. Reviewed importance of attending therapies so that family/visitor can see the amount of assistance pt needs & will be able to confirm that this support can be given at home upon dc. Discussed at this time it is anticipate pt will be recommended to have 07/01 supervision/assistance available initially upon dc. My card as well as contact number for rehab unit given to so that family/caregiver can call in for questions or to confirm therapy schedule for the next day. Will continue to follow & assist to develop appropriate discharge plan to meet patient needs as IP Rehab admit progresses. [facility] [place]GRESS NOTE Patient name: Gracie Lemons Date of : 1950 Assessment and plan Gracie Lemons is a 75 y.o. male patient of Armando Kohli MD with history of anemia, BPH, CAD, DM, GERD, HLD, HTN, RAFAEL, and CVA presented to IRF on 03/23/2025 with debility s/p T7-8 discectomy. Debility Impaired Mobility and ADLs Comprehensive Rehab with PT/OT/ST PMR following T7-T8 Discectomy Right Side Weakness Parkinsonian Features T7-8 Discectomy on 03/11 at [facility] with neurosurgery Patient with subsequent Right side weakness Neurology at [employer] believes it to possibly be lumbosacral plexopathy Patient with Parkinsonian features including masked facies, hypophonic speech, cogwheeling rigidity of axial and appendicular muscles, and bradykinesia A referral has been sent to [facility] Continue Flexeril, gabapentin, and nortriptyline Continue low dose Sinemet, may need to up titrate if no response in a week Pressure Injury Coccyx, POA Pressure Injury gluteal fold, POA Consult Wound Care Fibrotic Lung Disease Continue Mucinex Ordered home OFEV, family brought in it is non-formulary History of CVA CAD HTN HLD Continue atorvastatin, Plavix, Zetia, lisinopril, and metoprolol Type 2 Diabetes HgbA1C 7.7 in June 2024 Diabetic Diet Sliding Scale Insulin Recommend outpatient follow-up Hypothyroidism Will check TSH and reflex T4 Continue levothyroxine Cognitive Disorder Continue donepezil GERD Continue Protonix Vitamin D Deficiency Continue Supplementation RAFAEL CPAP ordered, refused overnight 2L/NC while sleeping if refusing CPAP Chronic Anemia Hgb 13.0 Baseline Hgb 10-13 Continue Ferrous Sulfate Overweight BMI 29.09 Encourage Diet and Lifestyle modifications Discharge planning Medically ready for discharge: no Patient and/or family has been notified they are expected to be medically stable for discharge on the following date: 04/06/25 Patient requires continued hospitalization due to: Inpatient Rehab Discussed with the patient and/or family that the following is a potential discharge location, understanding that the final plan will depend on the patient's progress and shared decision-making: Home with home health The following resources have been ordered to assist with discharge barriers: care management, PT, OT, ST Quality measures DVT prophylaxis: lovenox Lei catheter: absent Code status Full Code Subjective Patient sitting up in wheelchair, no new complaints. Discussed if patient is feeling any different on the Sinemet. Patient states no difference. Discussed that it can take a while to work and may need to be titrated up. Objective BP 106/61 Pulse 95 Temp 97.9 F (36.6 C) (Oral) Resp 14 Ht 5' 5 Wt 79.3 kg (174 lb 13.2 oz) SpO2 100% BMI 29.09 kg/m General appearance: alert; chronically ill appearing; in no acute distress HEENT: Head- normocephalic; Eyes- EOMI, sclera anicteric; Throat- mucous membranes moist Cardiovascular: regular rate and rhythm; normal S1, S2; no murmurs, rubs, clicks or gallops; peripheral edema absent Respiratory: lungs clear to auscultation; without wheezes, rales or rhonchi; on room air Abdomen: soft, non-tender, non-distended Neurological: oriented x 3; normal speech; parkinsonian movements, right side weakness Musculoskeletal: no significant deformity, unable to extend right arm all the way Skin: normal coloration Psych: normal mood and affect Inpatient Rehab Speech Language Pathology - Daily Note MERCHANDISING EXECUTION ASSOCIATE Time Calculation Start Time: 914 Stop Time: 1014 Time Calculation (min): 60 min MERCHANDISING EXECUTION ASSOCIATE Individual Therapy Min: 60 Recommendations: PO Recommendations: NDD diet NDD diet recommendation: Regular solids, Thin liquids Barriers Returning to Prior Level of Function: Body Structure and Function: Musculoskeletal impairment, Neurologic impairment Explain Impairments: s/p discectomy, encephalopathy Activities and Participation: Executive function limitation Explain Limitations: cognitive deficits Environmental Factors: Home situation Explain Environmental Factors: lives w/spouse Skilled Therapy Discharge Needs: Are Skilled Therapy Services Needed After Discharge: (TBD) Subjective Pt participated in skilled cognitive tx this date (60 min). Pt was seen sitting upright in WC in the speech room, pt was cooperative and pleasant throughout session, no family/friends present. Objective 1. ST O-Log - Patient will score a 25 or above on two separate administrations of the O-Log. 2. ST Memory - Patient will complete memory tasks with the use of memory strategies with 80% accuracy and minimal cues. 3. ST Problem Solving - Patient will complete basic problem solving, reasoning, safety awareness, and attention tasks with 80% accuracy and min cues. 4. ST Executive Function - Patient will complete basic sequencing, planning, and organizing tasks with 80% accuracy and min cues. Assessment 1. The Orientation Log (O-Log) is designed to be a quick quantitative measure of orientational status for use at bedside with rehabilitation inpatients. Place, time, and situational (Etiology/Event + Pathology/Deficits) domains are assessed. Patient responses are scored according to the following criteria: 3 = correct spontaneously or upon first free recall attempt; 2 = correct upon logical cueing (e.g., That was yesterday, so today must be ); 1 = correct upon multiple choice or phonemic cuing; and 0 = incorrect despite cueing, inappropriate response, or unable to respond. Patient scored / this date. Patient with noted difficulty in the areas of orientation to name of the hospital, date and time and was noted to benefit from semantic and MC cues. 2. Pt completed immediate and short term recall via picture retention task w/100% acc w/mod I for both immediate and short term recall (5 min w/a distractor) 3. Pt completed problem solving, reasoning, attention and safety awareness via problem solving hypothetical situations task w/92% acc w/mod I. 4. Pt completed sequencing, reasoning, attention and organizing via sequencing 4 step pictured tasks w/75% acc w/mod I and benefited from min A semantic cueing to increase acc to 100%. Pt completed sequencing, reasoning, attention, planning and safety awareness via transfer from WC to toilet and back to WC via santy steady w/min A verbal cueing for safety precautions and sequencing of steps. Plan Will continue per POC Handoff given to primary RN. Aparna Valladares MA CCC-MERCHANDISING EXECUTION ASSOCIATE Inpatient Rehab Physical Therapy - Daily Progress Note PT Time Calculation Start Time: 734 Stop Time: 834 Time Calculation (min): 60 min PT Individual Therapy Min: 60 Therapy Precautions Orthotic Devices: No Weight Bearing Status: WFL General Rehab Precautions: Fall Risk, Back Bed Mobility Lying to Sitting on Side of Bed: Substantial/Maximal Assistance, Head of bed elevated (Mod-max) Sit to Lying: Substantial/Maximal Assistance, Head of bed elevated (Mod-max) Skilled Intervention Provided: verbal cues, facilitation For: LE management, activity tolerance, sequencing of movement Resulting in: improved activity tolerance Skilled Intervention: Mod-max needed for trunk support, and for assistance with LEs when transferring sitting<>supine. Verbal cues for back precautions with bed mobility. Transfers Sit to Stand: Partial/Moderate Assistance (Min) Stand Pivot Transfers: Partial/Moderate Assistance (Min-mod) Book Cleaner: wheeled walker Skilled Intervention Provided: verbal cues, facilitation For: UE positioning, activity tolerance, controlled descent, safety during functional tasks Resulting in: improved activity tolerance, improved functional independence, improved performance Skilled Intervention: Min needed for assistance with standing froms seated. Verbal cues for anterior weight shift when standing. Min-mod needed for standing balance and safety with stand pivot transfers with wheeled walker. Pt performed STS for 2 min at wheeled walker to improve standing tolerance. Pt works on maintaining good posture, lesly hip extension, and lesly TKE. Pt then performs repeated STSx5 to improve technique and functional strength/endurance with transfers. Pt needing verbal cues for UE placement with STS transfers. Verbal cues needed for slow eccentric control with stand to sit transfers for safety. Gait/Locomotion Gait Assistance: Dependent and/or 2 Person Assist (Min-mod of 2 people) Assistive Device: wheeled walker Distance: 30 Feet Pattern: R impaired heel strike, L impaired heel strike, R decreased step length, L decreased step length, over reliance on upper extremities, decreased zenon (steps per minute) Gait Loss(es) of Balance: intermittent Environment/Terrain: open/community environment, multiple distractions Skilled Intervention Provided: verbal cues For: activity tolerance, gait technique, improved posture, LE management Resulting in: improved activity tolerance, improved performance Skilled Intervention: Pt needing min-mod fof 2 people for standing balance and safety with gait training. Verbal cues for focus on TKE in stance phase, and for breathing technique throughout. Pt demos intermittent knee instability throughout trial. Close w/c follow provided for safety. Exercise Supine Exercises: Pt performs lesly leg press on moveo to improve LE strength. Pt performs 4 sets of 15 reps at 10 degree incline. Verbal cues for eccentric control. Skilled Intervention Provided: verbal cues, instruction on proper technique/alignment For: achieving full ROM as tolerated, frequency of exercise(s), muscle activation, number of repetitions Resulting in: improved activity tolerance, improved functional strength/ROM Skilled Intervention: Recumbent bike for 10 min on level 1 resistance to improve LE strength, LE reciprocal motion, and functional endurance. Home Living Obtained Home Living and PLOF info from: Patient, Patient s family member Unable to obtain Home Living and PLOF info on initial eval: Patient is a questionable historian Lives With: Spouse (Idalia) Type of Home: House Home Layout: One level (laundry on main floor. Does not need to go to basement.) Rails on inside stairs: 2 rails Number of stairs inside home: 16 Steps to enter home: Yes Rails to enter home: 1 rail, L rail going up (+ bilateral grab bars on doorframe) Number of stairs to enter home: 3 Bathroom Shower/Tub: Walk-in shower, Main level (3 threshold to enter) Bathroom Toilet: Raised, Main level Bathroom Equipment: Grab bars in shower, Hand-held showerhead, Shower chair, Bedside commode, Toilet seat capacity analyst (toilet safety frame) Mobility Equipment: Cane, Wheeled walker, Rollator (Spare bed has adjustable features (their specific bed is not adjustable)) ADL Equipment: (none) Additional Objective Details - Home Living: Pt was standing to shower prior to admit. All information verified with spouse who is present during session. Pt with incorrect responses at times with self-report of home setup. 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 For complete objective data, detailed plan of care and patient education refer to: PT EVALUATION flowsheet, PT TREATMENT flowsheet, patient Plan of Care, Plan of Care progress note, and Patient Education. Cosigned by Aston Turk, PT at 03/26/2025 8:56 AM EDT PM&R Progress note ASSESSMENT/PLAN: A: Gracie Rehmanek continues to demonstrate impairments and medical need appropriate for comprehensive acute inpt rehab T7/T8 discectomy 2/2 thoracic spinal stenosis - Continue Ibuprofen prn pain - Do not order Tylenol based on allergy - Flexeril scheduled for muscle spasms - Transferred to IRF 03/23 - Initiate PT/OT for ADLs, transfers and ambulation RLE weakness - Likely 2/2 plexopathy due to positioning during surgery - Continue PT/OT - Consider CT head if other stroke like symptoms occur 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 instability for the last 2 years - Noted masked facies, shuffling gait, tremors - Low dose Sinemet ordered 03/25 RAFAEL - Patient uses CPAP at home, family to bring in machine Dementia - Continue Donepezil HTN - Continue Lisinopril, Metoprolol - Blood pressure parameters put in place for hypotension Hyperthyroidism - Continue Levothyroxine GERD - Continue Pantoprazole HLD - Continue Atorvastatin, Zetia 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 He reports that he slept well overnight. He denies any CP or SOB. He denies any headache or vision changes. He denies any lightheadedness or dizziness. Review of systems: No cp, SOA, n/v/d. Temp: [97.9 F (36.6 C)-98.6 F (37 C)] 98.6 F (37 C) Heart Rate: [84-121] 121 Resp: [16] 16 BP: (80-107)/(40-70) 95/59 FiO2 (%): 21 Physical Exam: General Appearance: In no apparent distress, well nourished HEENT: Normocephalic, atraumatic, neck supple, EOMI, PER Respiratory: On room air, no respiratory distress Cardiovascular: Peripheral pulses palpable, no edema Abdomen: Nontender, nondistended Musculoskeletal: No acute injury or gross deformity Skin: No rashes visualized, normal paplaption of skin and soft tissues Psychiatric: Normal mood and affect, appropriate insight and judgement Therapy Assessments: Assessments per PT, OT, ST documentation (last filed value): Home Living Type of Home: House (03/24/25 102) Home Layout: One level (laundry on main floor. Does not need to go to basement.) (03/24/25 102) Bathroom Shower/Tub: Walk-in shower, Main level (3 threshold to enter) (03/24/25 1029) Bathroom Toilet: Raised, Main level (03/24/25 1029) Bathroom Equipment: Grab bars in shower, Hand-held showerhead, Shower chair, Bedside commode, Toilet seat capacity analyst (toilet safety frame) (03/24/25 102) Bathroom Accessibility: (not recorded) Mobility Equipment: Cane, Wheeled walker, Rollator (Spare bed has adjustable features (their specific bed is not adjustable)) (03/24/25 102) Additional Objective Details - Home Living: Pt was standing to shower prior to admit. All information verified with spouse who is present during session. Pt with incorrect responses at times with self-report of home setup. 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 Spouse reports every now and then she would make pt use the WW if more unsteady that day. Pt did not ambulate in community (stayed in car when going to store, etc); spouse reports his legs would get tired easily.Spouse does indoor IADLs and patient was doing yardwork/mowing. Pt injured R shoulder ~2 months ago (had started physical therapy) - spouse reporting it was a chronic RTC tear from MRI. Son and DIL live next door and had taken over barn chores. Spouse was handling the finances and meds for patient. (03/24/25 102) Current Level of Function Balance: Sitting Balance - Static: Supervision or Touching Assistance (SBA/CGA sitting EOB) (03/24/25914) Sitting Balance - Dynamic: Supervision or Touching Assistance (CGA sitting EOB) (03/24/25914) Standing Balance - Static: Dependent and/or 2 Person Assist (Mod Ax2) (03/24/25 0915) Standing Balance - Dynamic: Dependent and/or 2 Person Assist (Mod to Max Ax2) (03/24/25 09) Bed Mobility: Roll Left and Right: (not recorded) Lying to Sitting on Side of Bed: (not recorded) Sit to Lying: (not recorded) Transfers: Sit to Stand: Dependent and/or 2 Person Assist (Max Ax2) (03/25/25 1015) Bed to Chair: (not recorded) Stand Pivot Transfers: (not recorded) Squat Pivot Transfers: (not recorded) Book Cleaner: wheeled walker (03/25/25 1015) Gait/Locomotion: Gait Assistance: Dependent and/or 2 Person Assist (Max Ax2 and second person close w/c follow) (03/25/25 101) Assistive Device: wheeled walker (03/25/25 101) Distance: 17 Feet (03/25/25 101) Pattern: step to, R impaired heel strike, L impaired heel strike, R decreased step length, L decreased step length, over reliance on upper extremities, forward flexed, decreased trunk rotation, shuffle, decreased zenon (steps per minute) (03/25/25 101) Weight Bearing Status: (not recorded) ADL & IADL Feeding: (not recorded) Meal Prep: (not recorded) Grooming: Supervision or Touching Assistance (SBA) (03/25/25 0700) Upper Body Bathing: Partial/Moderate Assistance (Min) (03/24/25 1029) Lower Body Bathing: Dependent and/or 2 Person Assist (03/24/25 1029) Upper Body Dressing: Partial/Moderate Assistance (mod A seated EOB) (03/25/25 0700) Lower Body Dressing: Substantial/Maximal Assistance, Increased time to complete, Use of adaptive equipment (max A) (03/25/25 07) Toileting: (not recorded) Speech Therapy Speech Functional Diagnosis: CVA: (not recorded) Speech/Language (Unrelated to CVA): (not recorded) Cognition (Unrelated to CVA): R41.840 Attention and concentration deficit., R41.841 Cognitive communication deficit. (03/24/25 1325) Dysphagia (Unrelated to CVA): (not recorded) Voice (Unrelated to CVA): (not recorded) Inpatient Rehab Physical Therapy - Daily Progress Note PT Time Calculation Start Time: 1015 Stop Time: 1115 Time Calculation (min): 60 min PT Individual Therapy Min: 60 Pt's spouse present and observes entirety of session. Therapy Precautions Orthotic Devices: No Weight Bearing Status: WFL General Rehab Precautions: Fall Risk, Back Balance Standing Balance - Static: Dependent and/or 2 Person Assist (Mod to Max Ax2) Book Cleaner - Standing Static: wheeled walker Loss of Balance- Standing Static: continuous Standing Balance - Dynamic: Dependent and/or 2 Person Assist (Max Ax2) Book Cleaner - Standing Dynamic: wheeled walker Loss of Balance- Standing Dynamic: continuous Transfers Sit to Stand: Dependent and/or 2 Person Assist (Mod to Max Ax2) Book Cleaner: wheeled walker Skilled Intervention Provided: verbal cues, tactile cues, demonstration, facilitation, monitoring patient response with activity, monitoring patient response with positional changes, neuromuscular re-education, provided step by step instructions, patient education For: UE positioning, activity tolerance, attention to task, breathing techniques, controlled descent, efficient movement, improved balance, initiation of task, proper body mechanics, safe use of AD and/or equipment, safety during functional tasks, self-monitoring during activity, sequencing of movement Resulting in: improved activity tolerance, improved awareness, improved balance, improved functional independence, improved performance, improved safety, increased insight into deficits, increased self-management of symptoms and impairments, increased upright tolerance for functional tasks, decreased assistance required, decreasing fall risk Skilled Intervention: Pt completes all functional STS transfers in session with FWW needing consistent Mod to Max Ax2 for initiation and carryout of task. Verbal cues and instruction provided for optimal performance and sequencing with emphasis on hand placement, anterior weight shifitng, upright posturing/gaze, control/management of device, as well as slow controlled descent to seated surfaces. Gait/Locomotion Gait Assistance: Dependent and/or 2 Person Assist (Max Ax2 and second person close w/c follow) Assistive Device: wheeled walker Distance: 17 Feet (over even surface) Rest Breaks: Yes Rest Break Position: seated Rest Break Duration: 5 min Additional Gait Trial 2: Yes Gait Assistance Trial 2: Dependent and/or 2 Person Assist (Max Ax2 and second person close w/c follow) Assistive Device Trial 2: wheeled walker Distance Trial 2: 12 (over even surface) Pattern: step to, R impaired heel strike, L impaired heel strike, R decreased step length, L decreased step length, over reliance on upper extremities, forward flexed, decreased trunk rotation, shuffle, decreased zenon (steps per minute) Gait Loss(es) of Balance: multidirectional Environment/Terrain: open/community environment, multiple distractions Skilled Intervention Provided: verbal cues, tactile cues, facilitation, monitoring patient response with activity, patient education For: activity tolerance, attention to task, breathing techniques, device management and safe use of device, gait sequence, gait technique, improved balance, improved posture, initiation of task, self-monitoring during activity Resulting in: improved activity tolerance, improved awareness of gait impairments, improved functional independence, increased insight into deficits, improved performance, improved safety Skilled Intervention: Pt ambulates over even surface with use of FWW needing consistent Max Ax2 and third person close w/c follow for safety. Pt demos significant L lean and bilateral knee instability. Following both trials of walking, pt reports of increased fatigue (giving RPE of 8/10). Exercise Seated Exercises: Initiataed seated HEP this date with pictorial handout provided. Instruction and visual demonstration provided on muscle activation and avoidance of compensatory mechanics. Seated exercises consist of: ankle pumps x2 min bilat, LAQ x15 bilat with slow eccentric lower, alt marches x20 bilat, hip adduction with ball squeeze x15, and hip abduction x15 with red tband. Skilled Intervention Provided: verbal cues, tactile cues, facilitation, monitoring patient response with exercise, monitoring patient vital signs before/during/after exercise, neuromuscular intervention, patient education, written instructions/handout provided and reviewed For: achieving full ROM as tolerated, attention to task, efficient movement, frequency of exercise(s), hold duration, muscle activation, number of repetitions, postural alignment, proper positioning of extremity, self-monitoring during activity, when to take rest breaks Resulting in: improved activity tolerance, improved functional strength/ROM, improved independence with HEP, improved initiation, improved performance, improved safety, improved sequencing, increased insight into deficits, decreased assistance required Skilled Intervention: Recumbent bike for 10 min on L1 to improve bilat LE strength, ROM, and functional activity tolerance. Avg 90-100 steps/min and 900 total steps. Home Living Obtained Home Living and PLOF info from: Patient, Patient s family member Unable to obtain Home Living and PLOF info on initial eval: Patient is a questionable historian Lives With: Spouse (Idalia) Type of Home: House Home Layout: One level (laundry on main floor. Does not need to go to basement.) Rails on inside stairs: 2 rails Number of stairs inside home: 16 Steps to enter home: Yes Rails to enter home: 1 rail, L rail going up (+ bilateral grab bars on doorframe) Number of stairs to enter home: 3 Bathroom Shower/Tub: Walk-in shower, Main level (3 threshold to enter) Bathroom Toilet: Raised, Main level Bathroom Equipment: Grab bars in shower, Hand-held showerhead, Shower chair, Bedside commode, Toilet seat capacity analyst (toilet safety frame) Mobility Equipment: Cane, Wheeled walker, Rollator (Spare bed has adjustable features (their specific bed is not adjustable)) ADL Equipment: (none) Additional Objective Details - Home Living: Pt was standing to shower prior to admit. All information verified with spouse who is present during session. Pt with incorrect responses at times with self-report of home setup. 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 For complete objective data, detailed plan of care and patient education refer to: PT EVALUATION flowsheet, PT TREATMENT flowsheet, patient Plan of Care, Plan of Care progress note, and Patient Education. Inpatient Rehab Speech Language Pathology - Daily Note MERCHANDISING EXECUTION ASSOCIATE Time Calculation Start Time: 914 Stop Time: 1015 Time Calculation (min): 60 min MERCHANDISING EXECUTION ASSOCIATE Individual Therapy Min: 60 Recommendations: PO Recommendations: NDD diet NDD diet recommendation: Regular solids, Thin liquids Barriers Returning to Prior Level of Function: Body Structure and Function: Musculoskeletal impairment, Neurologic impairment Explain Impairments: s/p discectomy, encephalopathy Activities and Participation: Executive function limitation Explain Limitations: cognitive deficits Environmental Factors: Home situation Explain Environmental Factors: lives w/spouse Skilled Therapy Discharge Needs: Are Skilled Therapy Services Needed After Discharge: (TBD) Subjective Pt participated in skilled cognitive tx this date (60 min). Pt was seen sitting upright in WC in the speech room, pt was cooperative and pleasant w/improved alertness throughout session, spouse present. Pt continues to demonstrate reduced eye contact despite sitting across the table from this MERCHANDISING EXECUTION ASSOCIATE. Objective 1. ST O-Log - Patient will score a 25 or above on two separate administrations of the O-Log. 2. ST Memory - Patient will complete memory tasks with the use of memory strategies with 80% accuracy and minimal cues. 3. ST Problem Solving - Patient will complete basic problem solving, reasoning, safety awareness, and attention tasks with 80% accuracy and min cues. 4. ST Executive Function - Patient will complete basic sequencing, planning, and organizing tasks with 80% accuracy and min cues. Assessment 1. The Orientation Log (O-Log) is designed to be a quick quantitative measure of orientational status for use at bedside with rehabilitation inpatients. Place, time, and situational (Etiology/Event + Pathology/Deficits) domains are assessed. Patient responses are scored according to the following criteria: 3 = correct spontaneously or upon first free recall attempt; 2 = correct upon logical cueing (e.g., That was yesterday, so today must be ); 1 = correct upon multiple choice or phonemic cuing; and 0 = incorrect despite cueing, inappropriate response, or unable to respond. Patient scored 26/30 this date. Patient with noted difficulty in the areas of orientation to name of hospital, date and time and was noted to benefit from semantic and MC cues. Pt w/significant improvement from 03/24/25 2. Pt completed short term recall via recall of instructions across a 10 min interval w/a distractor w/100% acc w/supervision A. Direct education and training provided re: recall strategies (WRAP-G). Explanation and examples of use of each strategy and handout provided, pt verbalized understanding. Will utilize strategies in upcoming session 3. Pt completed components of the IAM (form 2) for further cognitive assessment. Per results, pt w/inconsistent orientation to month/date, completed confrontational naming w/50% acc w/mod I and benefited from mod A visual cueing to increase acc to 100%, completed comparisons task w/100% acc w/mod I, numerical reasoning task w/50% acc w/mod I and benefited from mod-max A semantic cueing to increase acc to 100%, and divergent naming task w/100% acc w/supervision A 4. Pt completed sequencing, planning, reasoning and organizing via clock drawing task w/functional contour and sequencing of numbers, incorrect spacing of numbers and benefited from mod A cueing for minute hand placement. Pt completed trail making task (alternating numbers/letters) w/mod-max A leading questions and MC cueing throughout duration of task. Plan Will continue per POC Handoff given to primary RN. Aparna Valladares MA CCC-MERCHANDISING EXECUTION ASSOCIATE [facility] [place] PROGRESS NOTE Patient name: Gracie Lemons Date of : 1950 Assessment and plan Gracie Lemons is a 75 y.o. male patient of Armando Kohli MD with history of anemia, BPH, CAD, DM, GERD, HLD, HTN, RAFAEL, and CVA presented to IRF on 03/23/2025 with debility s/p T7-8 discectomy. Debility Impaired Mobility and ADLs Comprehensive Rehab with PT/OT/ST PMR following T7-T8 Discectomy Right Side Weakness Parkinsonian Features T7-8 Discectomy on 03/11 at [facility] with neurosurgery Patient with subsequent Right side weakness Neurology at [employer] believes it to possibly be lumbosacral plexopathy Patient with Parkinsonian features including masked facies, hypophonic speech, cogwheeling rigidity of axial and appendicular muscles, and bradykinesia A referral has been sent to [facility] Continue Flexeril, gabapentin, and nortriptyline Low dose Sinemet ordered to start today Pressure Injury Coccyx, POA Pressure Injury gluteal fold, POA Consult Wound Care Fibrotic Lung Disease Continue Mucinex Ordered home OFEV, family brought in it is non-formulary History of CVA CAD HTN HLD Continue atorvastatin, Plavix, Zetia, lisinopril, and metoprolol Type 2 Diabetes HgbA1C 7.7 in June 2024 Diabetic Diet Sliding Scale Insulin Recommend outpatient follow-up Hypothyroidism Will check TSH and reflex T4 Continue levothyroxine Cognitive Disorder Continue donepezil GERD Continue Protonix Vitamin D Deficiency Continue Supplementation RAFAEL CPAP ordered, refused overnight 2L/NC while sleeping if refusing CPAP Chronic Anemia Hgb 13.0 Baseline Hgb 10-13 Continue Ferrous Sulfate Overweight BMI 29.09 Encourage Diet and Lifestyle modifications Discharge planning Medically ready for discharge: no Patient and/or family has been notified they are expected to be medically stable for discharge on the following date: 04/06/25 Patient requires continued hospitalization due to: Inpatient Rehab Discussed with the patient and/or family that the following is a potential discharge location, understanding that the final plan will depend on the patient's progress and shared decision-making: Home with home health The following resources have been ordered to assist with discharge barriers: care management, PT, OT, ST Quality measures DVT prophylaxis: lovenox Lei catheter: absent Code status Full Code Subjective Patient sitting up in chair, family is at bedside. Discussed starting low dose Sinemet. Patient and family in agreement. Objective BP 105/70 Pulse 84 Temp 98.6 F (37 C) (Oral) Resp 16 Ht 5' 5 Wt 79.3 kg (174 lb 13.2 oz) SpO2 97% BMI 29.09 kg/m General appearance: alert; chronically ill appearing; in no acute distress HEENT: Head- normocephalic; Eyes- EOMI, sclera anicteric; Throat- mucous membranes moist Cardiovascular: regular rate and rhythm; normal S1, S2; no murmurs, rubs, clicks or gallops; peripheral edema absent Respiratory: lungs clear to auscultation; without wheezes, rales or rhonchi; on room air Abdomen: soft, non-tender, non-distended Neurological: oriented x 3; normal speech; parkinsonian movements, right side weakness Musculoskeletal: no significant deformity, unable to extend right arm all the way Skin: normal coloration Psych: normal mood and affect Inpatient Rehab Occupational Therapy - Daily Progress Note OT Time Calculation Start Time: 699 Stop Time: 802 Time Calculation (min): 63 min OT Individual Therapy Min: 63 Outcome Measures Box and Blocks Dominant hand: Right Right hand box and blocks description: 26 Left hand box and blocks description: 24 9 Hole Peg Test Right hand peg test (sec): 57 Left hand peg test (sec): 61 Therapy Precautions Orthotic Devices: No Weight Bearing Status: WFL General Rehab Precautions: Fall Risk, Back (incision on R lateral chest wall) Cognition Overall Cognitive Status: Impaired Arousal/Alertness: Appropriate responses to stimuli Orientation Level: Oriented to person, Oriented to situation, Oriented to place, Disoriented to time Executive functioning: Insight, Sequencing, Planning / Organizing Safety Judgment: Decreased awareness of need for safety Problem Solving: Assistance required to identify errors made, Assistance required to generate solutions, Assistance required to implement solutions Attention: Attends to quiet environment Hearing Status: [facility] Social Interaction: Cooperative ADL Grooming: Supervision or Touching Assistance (SBA) Grooming - Skilled Intervention Provided: facilitation, monitored patient's safety and tolerance Grooming - For: efficient movement Grooming - Resulting In: improved functional independence, improved participation in ADL task, improved performance with ADLs Skilled Intervention: Pt sat in w/c at sink following setup to complete grooming tasks including washing face, insert dentures combing hair and cleaning ears. Pt requiring occasional assist from left UE to support right UE when reaching to countertop. Applied deodorant seated EOB with min A for stabilizing right UE in shoulder flexion for left UE to access axilla area. Upper Body Dressing: Partial/Moderate Assistance (mod A seated EOB) Upper Body Dressing - Skilled Intervention Provided: facilitation, monitored patient's safety & tolerance, verbal cues Upper Body Dressing - For: efficient movement, fall prevention, UE positioning Upper Body Dressing - Resulting In: improved performance with ADLs, improved participation in ADL task Skilled Intervention: Pt [facility] gown min A and donned t-shirt seated EOB with mod A for pulling over head and shoulders with increased time. Required mod A for sitting balance with retro left lateral leaning noted when engaged in task. Lower Body Dressing: Substantial/Maximal Assistance, Increased time to complete, Use of adaptive equipment (max A) Lower Body Dressing - Skilled Intervention Provided: verbal cues, tactile cues, visual cues, facilitation, monitored patient's safety & tolerance, patient education, [id number] instructions Lower Body Dressing - For: LE positioning, UE positioning, adaptive equipment use, compensatory strategies, efficient movement, self-monitoring, necessary precautions, task simplification/modification Lower Body Dressing - Resulting In: improved activity tolerance, improved functional independence, improved participation in ADL task, improved performance with ADLs, improved safety, improved awareness Skilled Intervention: Pt educated on LB compensatory dressing techniques using handkerchief sample clerk to maintain back precautions. Requires cueing for hand placement and proper technique/sequencing of movements with max A for threading pants over distal LE and total assist for hiking pants up over hips while standing at [facility]. Bed Mobility Lying to Sitting on Side of Bed: Partial/Moderate Assistance (mod A) Book Cleaner: bedrails Skilled Intervention Provided: facilitation, monitoring patient response with activity, verbal cues, tactile cues, provided step by step instructions For: LE positioning, UE positioning, efficient movement, fall prevention, logroll technique, necessary precautions, safe use of bedrails and/or equipment, safety during functional task(s), self-monitoring during activity, sequencing of movement, weight shifting Resulting In: improved activity tolerance, improved performance, improved safety, improved functional independence Skilled Intervention: Pt requiring cueing for log roll technique to maintain back precautions with pt able to bring LEs to EOB with increased time and requiring mod A for transferring trunk to upright position. Min A to scoot hips to EOB to square up for balance. Functional Transfers Bed to Chair Transfers: Dependent and/or 2 Person Assist (min A x 2 [facility] Book Cleaner: stand assist device (non-powered) Skilled Intervention Provided: verbal cues, facilitation, monitoring patient response with activity, patient education, provided step by step instructions For: LE positioning, UE positioning, controlled descent, activity tolerance, efficient movement, fall prevention, safe use of AD and/or equipment, self-monitoring during activity, safety during functional task(s) Resulting In: improved activity tolerance, improved functional independence, improved performance, improved safety Skilled Intervention: Pt completing transfer EOB to w/c using Santy Stedy with cueing for hand/foot placement with min A x 2 stand. Pt remained standing at Santy Stedy during transfer with min A x 2 for balance while maintaining UE support on bar. BP 105/70 mmHg HR 84 bpm SpO2 97% on room air Balance Treatment Sitting Balance - Static: Supervision or Touching Assistance, Partial/Moderate Assistance, with back unsupported, with unilateral RUE support, with unilateral LUE support, without UE support, delayed balance reactions, greater than 5 minutes (CGA to min A) Loss of Balance - Sitting Static: left, posterior, intermittent Sitting Balance - Dynamic: Partial/Moderate Assistance, without UE support, with back unsupported, with unilateral LUE support, with unilateral RUE support, 3+ to 5 minutes, greater than 5 minutes (min-max A) Loss of Balance - Sitting Dynamic: posterior, left, intermittent Skilled Intervention Provided: verbal cues, tactile cues, facilitation, patient education For: activity tolerance, balance recovery, efficient movement, fall prevention, self-monitoring during activity, weight shifting Resulting in: improved activity tolerance, improved awareness, improved safety Skilled Intervention: Sitting balance noted while seated EOB during ADL tasks. Pt demoing retro and left lateral leaning/LOBs when engaged in dressing tasks requiring up to max A for balance with cueing for awareness and initiation of correction. Interventions Home Living Obtained Home Living and PLOF info from: Patient, Patient s family member Unable to obtain Home Living and PLOF info on initial eval: Patient is a questionable historian Lives With: Spouse (Idalia) Type of Home: House Home Layout: One level (laundry on main floor. Does not need to go to basement.) Rails on inside stairs: 2 rails Number of stairs inside home: 16 Steps to enter home: Yes Rails to enter home: 1 rail, L rail going up (+ bilateral grab bars on doorframe) Number of stairs to enter home: 3 Bathroom Shower/Tub: Walk-in shower, Main level (3 threshold to enter) Bathroom Toilet: Raised, Main level Bathroom Equipment: Grab bars in shower, Hand-held showerhead, Shower chair, Bedside commode, Toilet seat capacity analyst (toilet safety frame) Mobility Equipment: Cane, Wheeled walker, Rollator (Spare bed has adjustable features (their specific bed is not adjustable)) ADL Equipment: (none) Additional Objective Details - Home Living: Pt was standing to shower prior to admit. All information verified with spouse who is present during session. Pt with incorrect responses at times with self-report of home setup. 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 For complete objective data, detailed plan of care and patient education refer to: OT EVALUATION flowsheet, OT TREATMENT flowsheet, patient Plan of Care, Plan of Care progress note, and Patient Education. Cosigned by Jaspreet Gudino OT at 03/28/2025 1:38 PM EDT Spiritual Care Progress Note Completed by: ALEXX UMAÑA Person(s) Present During this Visit: Patient Time Spent in Direct Patient Care: 15 Narrative: Today I visited Gracie Lemons, 75 y.o. year old Male from [place] [address] with identified evangelical preference of No latter-day on file. Narrative Gracie is recovering from back surgery. He is supported by his Idalia who was at bedside, and his mosque community that support them as well. Their aria is important to them. I providd prayer and support. Plan & Recommendations Pastoral Care team will remain available to support patient and family PRN. 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 Interventions employed in visit include named and reflected back emotions to facilitate clarity Outcomes achieved include Attained greater clarity regarding meaning/purpose Chaplain Alexx Umaña MD[address] [place] [address] Office:[phone] Prom Burn Off Operator Shot Man: [phone] BRIEF STOCK SUPERVISOR ASSESSMENT [id number] Patients Response to Pastoral Care: Appeared to be well-engaged, Expressed Gratitude for Visit Planning for Future Visits: PRN 03/24/25 1700 Visit Background Visit With Patient Visit By Staff Shot Man Visit Progression Introduction Visit Requested By Shot Man Initiated Visit Source Shot Man Initiated Visit Type Inpatient;Rounding Visit Circumstances and Events Routine Visit Visit Length (minutes) 15 Patient's Response to Pastoral Care Appeared to be well-engaged;Expressed Gratitude for Visit Visit Planning PRN Spiritual Assessment Not assessed during visit Orthodox Assessment Not assessed during this visit Family assessment provided? Not assessed during this visit Nutrition Care Initial Assessment Reason for visit: Nursing Referral: unintentional weight loss of more than 7 lbs in the last month Nutrition Diagnosis: Inadequate energy intake related to inability to consume sufficient po as evidenced by variable intakes documented. Nutrition Intervention/Prescription: Modify Diet Initiate Oral Nutrition Supplement Diet: Carbohydrate Consistent 60g/meal Oral nutrition supplement: Boost Glucose Control BID, NSA Mighty Shakes once daily Nutrition Goals: Tolerate diet with PO intakes >75% most meals x next 6-10 days Start Date:03/24/2025 Expected End Date:04/03/2025 Nutrition Education: No needs at this time Assessment: Pertinent clinical information: Admitted to IPR. S/p T7-8 discectomy Per MD note- history of anemia, BPH, CAD, DM, GERD, HLD, HTN, RAFAEL, and CVA presented to IRF on 03/23/2025 with debility s/p T7-8 discectomy. No past medical history on file. No past surgical history on file. Height: 5' 5 Current weight: 79.3 kg (174 lb 13.2 oz) BMI Body mass index is 29.09 kg/m . Weight hx: No other wts in [facility]. 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 Wts from [facility] 03/11/25 82.3 kg (181 lb 8 oz) 03/02/25 82.6 kg (182 lb) 01/11/25 85.4 kg (188 lb 4.8 oz) 08/25/24 93.6 kg (206 lb 6.4 oz) 05/12/24 98.7 kg (217 lb 9.6 oz) Current diet order: Carbohydrate Consistent 75g/meal Recent intake: 25-50 x2, 75-100 x1. Current intake likely does not meet estimated needs Barriers to adequate PO intakes: assume decreased appetite Nutrition Related Allergies/Intolerances: No Nutrition Related Allergies noted Cultural or Orthodox Dietary Needs :No Cultural or Orthodox Dietary needs noted Patient/family comments: Staff said pt care when RDN knocked on room door. Per 03/18/25 [facility] RDN note- Not eating much d/t disliking food served here. Glucerna supplement TID (chocolate) was started there. Difficulty Chewing or Swallowing: No Fluid Status (edema): non-pitting Skin Integrity: pressure injury buttock GI Function: LBM: 03/24 Physical Appearance: TAHIR Labs: Recent Labs 03/24/25 0734 NA 136 K 4.2 BICARB 24 CL 100 GLUCOSE 161* BUN 5* CREATININE 0.81 MG 1.9 ALBUMIN 3.1* No results found for: HGBA1C Home Medications Reviewed: Yes Nutrient Depleting Medications: QUALITY ASSURANCE AUDITOR: none Scheduled Meds: ascorbic acid (vitamin C) 250 mg Oral Daily atorvastatin 20 mg Oral Nightly clopidogreL 75 mg Oral Daily cyclobenzaprine 10 mg Oral TID donepeziL 5 mg Oral Nightly enoxaparin 40 mg Subcutaneous Daily [START ON 03/25/2025] ergocalciferol 50,000 Units Oral Q7 Days ezetimibe 10 mg Oral Nightly ferrous sulfate 325 mg Oral Daily with breakfast gabapentin 300 mg Oral Nightly guaiFENesin 600 mg Oral Q12H lispro insulin 0-15 Units Subcutaneous at bedtime insulin lispro 0-30 Units Subcutaneous TID AC levothyroxine 50 mcg Oral QAM AC lisinopriL 20 mg Oral Daily metoprolol tartrate 50 mg Oral BID multivitamin 1 tablet Oral Daily nortriptyline 25 mg Oral Nightly pantoprazole 40 mg Oral Daily polyethylene glycol 17 g Oral Daily vitamin E 400 Units Oral Daily Continuous Infusions: Estimated Energy Needs 1800kcals (23kcals/kg) Total Protein Estimated Needs 79gms (1gm/kg) Sarah Rucker RD Inpatient Rehabilitation Pre-Admission Screen Patient Name:Gracie Lemons Date of : 1950 Patient Location: Room/bed info not found Gender:male Age: 75 y.o. Today's date: 03/23/25 Admitted:(Not on file) Preferred Language: Race: Not on file Phone: There are no phone numbers on file. Oyster Planter needed: Address: No address on file. Demographics Is the patient of , /a, or Tunisian origin?: No, not of , /a, or Tunisian origin What is the patient's race?: White Marital Status: Pre Hospital Living Setting: Home Pre-Hospital Lives With: Family/Relatives Pre-Hospital Vocation Category: Retired for Age Support System Family/Caregiver Contact Information Family/Caregiver Contact: Idalia Contact Relationship: spouse Contact Support Support System: Spouse, Children Type of Support Available: 07/01 Patient/Family Rehab Goal: Home Referral/Payer Payer/Plan Subscriber Name Rel Member # Group # Referral Date of Referral: 03/19/25 Referring Source Information: [facility] Referral Source: [employer] Referring Facility Admit Date: 03/11/25 Contact Name: [facility] Referring Facility Contact's Number: [phone] Current Status Current Status Rehab Impairement Code (BOBBI): NTSCI NTSCI 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 male with history of DMT2, HTN, HLD, CAD on plavix (Last dose 03/04), and prior L3-S1 posterior decompression and fusion with Dr Wiseman on 07/15/12, who presented on 03/04/2025 for surgical management of T7-8 central disc herniation. He is s/p T7/8 lateral retropleural discectomy on 03/11/2025. Neurology is consulted for weakness post-op. Reports baseline left foot drop and new right LE weakness which was noted upon awakening from surgery Hospital Course: Patient needs assistance with functional mobility, Patient needs assistance with ADLs, Patient needs assistance with IADLs (see note below), Patient needs assistance with medication management, Patient needs assistance with self-care for medical condition (see note below), Cognitive impairments that impact safety (see note below), Pain management concerns, Assistance needed to ensure precautions are maintained (see note below) Impaired functional status, , Decreased strength, Impaired balance, Decreased endurance Patient will benefit from intensive neuro therapy from PT OT ST rehab nursing and PM&R for above mentioned deficits. 03/11 Right lateral T7-8 discectomy Acute Postop RLE weakness Acute Hypoxic Respiratory Failure Will require close pulse oximetry monitoring from therapy and rehab nursing especially during intensive therapy Fibrotic lung disease of unclear etiology Right Exudative Pleural Effusion s/p repeat CT placement (04/15/25) Pulmonology consult Chest tube was placed by IR 03/16, removed 03/18 per pulmonology (Keep dressing dry and in place for 48 hours) Cognition Overall Cognitive Status: Impaired Following Commands: Follows one step commands with increased time Safety Judgment: Decreased awareness of need for assistance, Decreased awareness of need for safety Awareness of Errors: Decreased awareness of errors, Assistance required to correct errors made Deficits: Decreased awareness of deficits ST to evaluate and treat when o rehab Sacrococcygeal, perianal and bilateral gluteals Ulcerations Unknown if present on admission Nutrition % PO Intake per docflowsheets: Average of 39% Carb Controlled Diet Diabetic Rehab nursing to monitor and manage sugar, PM&R along with medicine to monitor, manage and adjust medications as needed while on rehab. Integumentary Sacrococcygeal, perianal and bilateral gluteals wounds Rehab nursing to assess an monitor sites, site care and dressing changes to be completed by nursing per orders. PM&R along with medicine to monitor and manage care of sites while on rehab. Hypertension Rehab nursing to assess and monitor blood pressure, PM&R along with medicine to monitor, manage and adjust medications as needed while on rehab Bladder and Bowel incontinent , patient will benefit from bowel and bladder program to include bladder scans to monitor for PVR with goal of contingence. Obesity Abnormal Lab PM&R along with medicine to monitor and manage labs while on rehab. Pain Patient will benefit from pain management from PM&R with rehab nursing to mange for best benefit from intensive therapy. Depression Home Setting Residence: House Lives With: spouse Patient receives help from : none Patient reported support for discharge plannin hour supervision, 24 hour physical assistance First floor setup: bedroom, walk-in shower Number of stairs to enter home: 3 Number of stairs in home: 0 Stair Railings at Home: entry - with rail Mobility Equipment Available: front-wheeled walker, straight cane ADL Equipment Available: grab [facility] [employer] Home Environment Details: Pt reports having a left AFO due to chronic left foot drop x 12 years, but does not utilize. Previous Level of Function Gross Functional Mobility: independent, used device Assistive Device: (straight cane vs WW) Prior level ADL Overview: Independent with all ADLs Dominant Hand: Right Bed Mobility: independent Transfers: independent Stairs: independent, used device Ambulation: modified independent with home Prior Level of Function Details: Pt spouse completing most IADLs recently. Limited by LE weakness with 5 falls or more in the last 3 months Vocation: retired IADL History IADLs: needs assist Barriers to discharge home: Patient unable to navigate stairs to enter home, Patient needs assistance with functional mobility, Patient needs assistance with IADLs, Patient needs assistance with medication management, Lack of supervision necessary to mitigate fall risk, Assistance needed to ensure precautions are maintained, Cognitive impairments that impact safety, Unsafe home environment given patient's current status Supporting Factors (would benefit from skilled therapy services): Patient status is anticipated to be appropriate to tolerate inpatient rehab therapy requirements at time of discharge from acute care, Impaired functional status, Decreased strength, Impaired balance, Decreased endurance necessitating skilled therapy services, but able to tolerate therapy requirements for inpatient rehab, Impaired self-care abilities, Fall risk, Patient has appropriate assistance and setup at home for ultimate discharge to home once patient has progressed functionally following inpatient rehab Requires rehab nursing for neuro, motor/sensory assessments, bowel and bladder, dysphagia, weakness, cardiac and respiratory monitoring. Will need close monitoring in these areas especially during intensive rehab. Requires Close Medical Supervision for spinal cord injury, cardiac (a-fib and bradycardia) monitoring, pain management, dysphagia, and bowel and bladder assessment. It has been determined that he can tolerate 3 hours therapy per day/minimum 5 days per week and he has the ability to meet his goals in a timely manner. Discharge plan: home with the assistance of his family. He is willing to participate in the program. Discharge needs: FU with neurosurgery, PCP, Cardiology, ENT, Electrophysiology. HHC vs Outpatient therapies, DME to be determined in rehab. Patient is High Risk For: Falls, Skin breakdown, Dehydration and malnourishment, Atelectasis, Bleeding, Constipation/ileus, Urinary retention with acute kidney injury, Hypotension/hypertension, DVT/PE, infection, acute neurological decline, worsening motor/sensory impairments, and Cardiac or Pulmonary Event Discharge Barriers: Functional deficits and medical stability Rehabilitation nursing to ensure and prevent skin breakdown, promote progressive independence while ensuring safety, ensure adequate pain control, and provide education regarding medications and management of bowel and bladder function. No past medical history on file. No past surgical history on file. Medications: There is no immunization history on file for this patient. Immunizations from Immunization Registries No registry information available Required Medicare Questions Major surgery during 100 days prior to adm: Yes Has the patient had two or more falls in the past year or any fall with injury in the past year?: Yes Vitals Date Measured: 03/23/25 Height: 5' 5 Weight: 82.3 kg (181 lb 7 oz) Blood Pressure: 121/70 Temperature: 97.8 Pulse: 95 Respirations: 16 O2 Sat: 92 Pain Scale: 5 Food and Nutrition Special Diet: Diabetic National Dysphagia Diets: Regular Liquid Specific Limitations: Thin Liquids Infection Current Infection: No MRSA/Site: no C-Diff: no VRE: no Other/Site: no IV Antibiotics: completed Current Acute Care Therapy Therapy: Physical, Occupational, Speech Review of Systems Allergies[1] Review of Systems Vision: Negative Hearing: Hearing Loss Cardiovascular: Negative Pulmonary: diminished Gastrointestional: Negative Genitourinary: wnl Musculoskeletal: RLE limited movement Integumentary: Wound (ecchymosis preure injur to buttocks) Psychosocial: Depression Renal Function: WNL Endocrine: Diabetes, Hypothyroid, Hyperlipidemia Precautions: Falls Isolation Precautions: no Bariatric Needs: no Dialysis: no Oxygen: no Special Equipment: TBD on rehab Weight Bearing Status: full Neuro Cognitive: (impired) Motor: Follows 1 or 2 Step Directions Verbal: Appropriate Labs Blood Work/Labs Lab Results Component Value Date BUN 5 (L) 03/23/2025 CALCIUM 7.9 (L) 03/15/2025 CL 108 03/23/2025 CREATININE 0.47 (L) 03/23/2025 GLUCOSE 116 03/23/2025 K 3.4 (L) 03/23/2025 NA 139 03/23/2025 Recent MRI & CT Studies: No orders to display Radiology Results (last 7 days) No results found for the last 168 hours. Functional Assessment Bladder Continence Pre-Hospital Bladder Continence: (presumed continent) Current Bladder Continence: (presumed inconetinent) Device(s) used: condum cath Medication: No Bowel Continence Date of Last BM: 03/22/25 Pre-Hospital Bowel Continence: (presumed continent) Current Bowel Continence: (presumed incontinent) Bowel Medication: Yes Medication Type: Senna, miralax Prior Functioning Everyday Activities Self Care: 2 - Needs Some Help Indoor Mobility (Ambulation): 3 - Independent Stairs: 3 - Independent Functional Cognition: 3 - Independent Prior Device Use Manual W/C: No Motorized W/C or Scooter: No Mechanical Lift: No Walker: Yes Orthotics/Prosthetics: No Functional Issues Balance: siting static CG standing static max Strength: RLE weakness Non-FIM Functional Assessment Eating Pre-Morb: Independent Now: Not Evaluated Goal: Independent Grooming/Hygiene Pre-Morb: Independent Now: Min Assist/Contact Guard Goal: Independent Upper Ext Dressing Pre-Morb: Independent Now: Min Assist/Contact Guard Goal: Independent Lower Ext Dressing Pre-Morb: Independent Now: Total Assist Goal: Independent Bladder Management Pre-Morb: Independent Now: Total Assist Goal: Independent Bowel Management Pre-Morb: Independent Now: Total Assist Goal: Independent Bed Mobility Pre-Morb: Independent Now: Mod Assist Goal: Independent Supine-Sit Pre-Morb: Independent Now: Mod Assist Goal: Independent Sit-Stand Pre-Morb: Independent Now: Max Assist Goal: Independent Transfer Pre-Morb: Independent Now: Max Assist Goal: Independent Toilet Transfer Pre-Morb: Independent Now: Not Evaluated Goal: Independent Ambulation Pre-Morb: Independent Now: Mod Assist (1-2 steps) Goal: Independent Expression Pre-Morb: Independent Now: Independent Goal: Independent Memory Pre-Morb: Independent Now: Independent Goal: Independent Completed Therapy Evaluations Therapy: PT, OT, MERCHANDISING EXECUTION ASSOCIATE Admission Justification Date/Time: 03/23/25 1:00 PM Senior Infrastructure Architect: Nataly Auguste RN Screening Method: Through a review of the patient's acute care hospital medical records Screening Recommendations: 1. Rehabilitation Admission: Yes 2. Therapy assessment projects patient able to tolerate relatively intense therapy: Yes 3. Rehabilitation Prognosis: good 4. Patient is willing to participate in an intensive rehabilitation program: Yes ELOS 7-14 Days Anticipated Discharge Setting: Home Nataly Auguste RN Physician Admission Justification Patient demonstrates potential for significant practical improvement and there is a reasonable expectation for measurable improvement of functional capacity or adaptation to impairments as demonstrated by: Sufficiently Stable: Yes Patient's condition is sufficiently stable at the time of admission to allow the patient to actively participate in an intensive rehabilitation program. Intensive Rehabilitation Nursing: The patient demonstrates the need for 24-hour rehabilitation nursing care for active management of the following medical and functional deficits: ADLs, Bladder Mgmt., Bowel Mgmt., Cognition, Diabetes Mgmt., Disease Mgmt., Family Training/Edu., Medications Admin., Nutritional Deficits, Pain Mgmt., Patient Education, Positioning, Respiratory / Airway Mgmt., Safety, Skin Integrity, Nutri., Transfers, and Wound Care Appropriate Therapy Needs: The patient requires the active and ongoing therapeutic intervention of at least two therapy disciplines (physical therapy, occupational therapy, speech-language pathology, or prosthetics/orthotics therapy), one of which must be physical or occupational therapy. Requires 2 or more therapies: PT, OT, and MERCHANDISING EXECUTION ASSOCIATE Intensive Therapy: Yes Patient requires and is reasonably expected to actively participate in at least 3 hours of therapy per day at least 5 days per week, and be expected to make measurable improvement that will be of practical value to improve the patient's functional capacity or adaptation to impairments. In addition, therapy treatments will begin within 36 hours from midnight of the day of the patient's admission to the IRF. Expected duration and frequency of therapy: 180 minutes/day, 5 days/week Interdisciplinary Team: Patient demonstrated the need for an interdisciplinary team for active management of the following medical and functional deficits: Ataxia / Motor Planning, Balance, Cognition, Disease Management, Elimination, Endurance, Family Training/Education, Independent ADLs, Pain Management, Precautions, ROM, Safety, Skin Care / Wound Mgmt., Strength, and Transfers [1] Not on File Cosigned by Rogelio Espinosa MD at 03/23/2025 1:09 PM EDT Associated attestation - Rogelio Espinosa MD - 03/23/2025 1:09 PM EDT Patient would benefit from 3 hours of therapy 5 days a week for strengthening, balance training, gait training, ADL training, motor skills training, cognitive remediation, and family training. Pt would benefit from interdisciplinary rehab to adapt to this new impairments and improve functional independence in the home environment. Rogelio Espinosa MD 03/23/2025 documented in this encounter [facility] 04-06-2025 Plan of care note [facility] Nurse Notes Problem: Actual or potential alteration in health Goal: Absence of healthcare acquired conditions Outcome: Partially Met Goal: Knowledge of Interdisciplinary Plan of Care Outcome: Partially Met Goal: Knowledge of Enviroment Outcome: Partially Met Problem: Pressure Injury, Risk of Goal: Absence of pressure injury Outcome: Partially Met Problem: Falls, Risk of Goal: Absence of falls Outcome: Partially Met Goal: Absence of physical injury Outcome: Partially Met Problem: Pain Goal: Reduced pain sensation Outcome: Partially Met Goal: Control of acute pain to acceptable level Outcome: Partially Met Goal: Able to cope with pain Outcome: Partially Met Goal: Able to achieve maximum level of physical functioning Outcome: Partially Met Goal: Able to achieve maximum level of psychosocial functioning Outcome: Partially Met [facility] 04-06-2025 Plan of care note [facility] Physical Therapy Notes Problem: Mobility - Impaired Goal: PT- LTG bed mobility Description: PT - Patient will perform bed mobility with supervision and appropriate AE to improve functional mobility and safety. Outcome: Met Note: Pt is performing with WA with HR and some safety concerns Goal: PT- LTG sit to stand transfer Description: PT - Patient will perform sit to/from stand transfer with minimal assist, moderate assist, approriate device to improve functional mobility and safety. Outcome: Met Note: Pt is performing with CGA with RW and cues for safety Goal: PT- LTG stand-pivot transfer Description: PT - Patient will perform stand-pivot transfer with minimal assist, moderate assist, approriate device to improve functional mobility and safety. Outcome: Met Note: Pt is performing with CGA with RW and cues for safety Goal: PT- LTG car transfer Description: PT - Patient will perform car transfer with minimal assist, moderate assist to improve functional mobility and safety. Outcome: Met Note: Pt is performing with CGA with RW and cues for safety Goal: PT- LTG dynamic balance Description: PT - Patient will perform standing dynamic balance activities with device with minimal assist, moderate assist to improve functional mobility and safety. Outcome: Met Note: Pt is needing CGA/min assist with at least 1 UE support on RW and cues to keep bilat knees in extension Goal: PT- LTG ambulation Description: PT - Patient will ambulate at least 75+ feet with device with minimal assist, moderate assist to improve functional mobility and safety. Outcome: Met Note: Pt is ambulating up to 157 ft with RW and CGA with cues for technique Goal: PT- LTG stair climbing Description: PT - Patient will ascend and descend 3+ stairs with non-reciprocal technique with 2 rails with minimal assist, moderate assist, 2-person assist to improve functional mobility and safety. Outcome: Met Note: Pt is performing curb step with RW and min assist and cues for safe technique. Goal: PT- LTG wheelchair management Description: PT - Patient will propel and manage wheelchair at least 100+ feet with supervision to improve functional mobility and safety. Outcome: Met Note: Pt is propelling w/c 150 ft with supervision on even surfaces with mainly UEs Goal: PT- LTG mobility other Description: PT- Patient and/or caregiver(s) will verbalize and demonstrate adequate understanding of appropriate HEP to improve functional strength and perform program with IND. Outcome: Met Note: Pt and his are able to complete pt's LE HEP IND for home going. Pt progressed well towards all goals and met them with increasing independence in all areas of mobility. Pt will need to use RW with at least CGA as main mode of mobility. PT is also recommending pt to use w/c for longer distances and as needed due to pt's knees buckling with fatigue even at shorter distances walked. Pt's caregiver has been in for training for transfers, gait and stairs, and was able to return demo independently. Recommend 24 hour assist available and continued PT to continue to work on strengthening and balance for home and community mobility. [facility] 04-06-2025 Note PM&R Progress note ASSESSMENT/PLAN: A: Gracie Lemons continues to demonstrate impairments and medical need appropriate for comprehensive acute inpt rehab T7/T8 discectomy 2/2 thoracic spinal stenosis - Continue Ibuprofen prn pain - Do not order Tylenol based on allergy - Flexeril scheduled for muscle spasms- made prn 03/29 due to increased fatigue - Transferred to IRF 03/23 - Initiate PT/OT for ADLs, transfers and ambulation RLE weakness - Likely 2/2 plexopathy due to positioning during surgery - Continue PT/OT - Consider CT head if other stroke like symptoms occur 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 instability for the last 2 years - Noted masked facies, shuffling gait, tremors, bradykinesia - Low dose Sinemet ordered 03/25 - Increased Sinemet to 1 tab at lunch and 0.5 tabs with breakfast and dinner- can continue to increase as needed - Sinemet increased to 1 tab TID 04/01 RAFAEL - Patient uses CPAP at home, family to bring in machine Dementia - Continue Donepezil HTN - Continue Lisinopril, Metoprolol - Blood pressure parameters put in place for hypotension - Lisinopril decreased 03/26 for hypotension - Lisinopril decreased 03/29 for hypotension Hyperthyroidism - Continue Levothyroxine GERD - Continue Pantoprazole HLD - Continue Atorvastatin, Zetia 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 He feels like his R leg has gotten stronger. He denies any new LE paresthesias. He had a few episodes of diarrhea yesterday. He denies any abdominal pain. Review of systems: No cp, SOA, n/v/d. Temp: [97.9 degrees F (36.6 degrees C)-98.2 degrees F (36.8 degrees C)] 98.1 degrees F (36.7 degrees C) Heart Rate: [77-89] 80 Resp: [17-18] 17 BP: (114-130)/(73-82) 130/82 Physical Exam: General Appearance: In no apparent distress, well nourished HEENT: Normocephalic, atraumatic, neck supple, EOMI, PER Respiratory: On room air, no respiratory distress Cardiovascular: Peripheral pulses palpable, no edema Abdomen: Nontender, nondistended Musculoskeletal: No acute injury or gross deformity, 4/5 R hip flexion, 5/5 L hip flexion Skin: No rashes visualized, normal paplaption of skin and soft tissues Psychiatric: Normal mood and affect, appropriate insight and judgement Therapy Assessments: Assessments per PT, OT, ST documentation (last filed value): Home Living Type of Home: House (03/24/251028) Home Layout: One level (laundry on main floor. Does not need to go to basement.) (03/24/25 102) Bathroom Shower/Tub: Walk-in shower, Main level (3 threshold to enter) (03/24/25 102) Bathroom Toilet: Raised, Main level (03/24/25 102) Bathroom Equipment: Grab bars in shower, Hand-held showerhead, Shower chair, Bedside commode, Toilet seat capacity analyst (toilet safety frame) (03/24/25 102) Bathroom Accessibility: (not recorded) Mobility Equipment: Cane, Wheeled walker, Rollator (Spare bed has adjustable features (their specific bed is not adjustable)) (03/24/25 102) Additional Objective Details - Home Living: Pt was standing to shower prior to admit. All information verified with spouse who is present during session. Pt with incorrect responses at times with self-report of home setup. 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 Spouse reports every now and then she would make pt use the WW if more unsteady that day. Pt did not ambulate in community (stayed in car when going to store, etc); spouse reports his legs would get tired easily.Spouse does indoor IADLs and patient was doing yardwork/mowing. Pt injured R shoulder ~2 months ago (had started physical therapy) - spouse reporting it was a chronic RTC tear from MRI. Son and DIL live next door and had taken over barn chores. Spouse was handling the finances and meds for patient. (03/24/25 102) Current Level of Function Balance: Sitting Balance - Static: Supervision or Touching Assistance (SBA) (03/27/25729) Sitting Balance - Dynamic: Supervision or Touching Assistance (CGA) (03/27/25729) Standing Balance - Static: Supervision or Touching Ass (more content not included)... [facility] 04-06-2025 Plan of care note Problem: Actual or potential alteration in health Goal: Absence of healthcare acquired conditions Outcome: Partially Met Goal: Knowledge of Interdisciplinary Plan of Care Outcome: Partially Met Goal: Knowledge of Enviroment Outcome: Partially Met Problem: Pressure Injury, Risk of Goal: Absence of pressure injury Outcome: Partially Met Problem: Falls, Risk of Goal: Absence of falls Outcome: Partially Met Goal: Absence of physical injury Outcome: Partially Met Problem: Pain Goal: Reduced pain sensation Outcome: Partially Met Goal: Control of acute pain to acceptable level Outcome: Partially Met Goal: Able to cope with pain Outcome: Partially Met Goal: Able to achieve maximum level of physical functioning Outcome: Partially Met Goal: Able to achieve maximum level of psychosocial functioning Outcome: Partially Met [facility] 04-06-2025 Plan of care note [facility] Occupational Therapy Notes Pt has made excellent progress towards established goals throughout rehab stay, demonstrating improvements in overall performance with self care tasks, functional transfers, endurance, balance, and strength as compared to initial evaluation. Patient initially requiring 2-3 person assist for ADLs and transfers at evaluation and is now completing with CGA and use of WW. Pt continues to require min safety cues and is limited by continued weakness in LE 's with buckling at times, particularly with extended time in standing and with bilateral UE engagement in tasks. Family training completed prior to discharging home with recommendations to continue with skilled therapy services at discharge. Problem: Self-care Deficit Goal: OT- LTG grooming Description: OT - Patient will complete grooming tasks from w/c level with modified independence and/or with contact guard assist in standing in order to improve self care function. Outcome: Met Note: CGA - standing Mod Ind - seated Goal: OT- LTG UB dressing Description: OT - Patient will complete UB dressing with set-up assist in order to improve self care function. Outcome: Met Goal: OT- LTG toileting Description: OT - Patient will complete toileting with minimal assist in order to improve self care function. Outcome: Met Note: CGA Goal: OT- LTG Self-Care Other Description: OT- Patient will participate in family/caregiver training as needed to enhance a safe return to home environment by time of discharge, including education on ADLs, functional transfers, precautions, fall prevention, HEP, and any adaptive equipment needs. Outcome: Met Problem: Mobility - Impaired Goal: OT- LTG toilet transfer Description: OT - Patient will complete toilet transfer with contact guard assist and use of AD in preparation for ADL's. Outcome: Met Note: CGA Goal: OT- LTG navigation Description: OT - Patient will navigate environment within short household distances with minimal assist and use of AD during simple item retrieval tasks in anticipation for safe return to home/community. Outcome: Met Note: CGA with intermittent Min A and use of AD - min cues Problem: Impaired Strength Goal: OT- LTG Strength Other Description: OT- Patient will tolerate 15 mins of BUE strengthening exercises (WITHIN PRECAUTIONS) in order to improve necessary strength for functional mobility and self care tasks with patient able to complete exercises with no more than min cues by time of discharge. Outcome: Met Problem: Self-care Deficit Goal: OT- LTG LB dressing Description: OT - Patient will complete LB dressing with contact guard assist / footwear management with stand by assist through use of AE with adherence to back precautions in order to improve self care function. Outcome: Partially Met Note: CGA w/ AE - LB dressing SBA-CGA w/ AE and cues - socks/shoes Dependent - daniela hose Goal: OT- LTG LB bathing Description: OT - Patient will complete UB/LB bathing with stand by assist from seated position with use of AE in order to improve self care function. Outcome: Partially Met Note: SBA with AE from seated position CGA when standing Goal: OT- LTG precautions Description: OT - Patient will demonstrate back precaution management with independence in order to improve safe and appropriate ADL/IADL management. Outcome: Partially Met Note: Supervision, min cues Problem: Impaired Neurologic Function Goal: OT- LTG dynamic sitting balance Description: OT - Patient will complete dynamic sitting balance activity with modified independence during extended reaching tasks outside MARK while on unsupported surfaces in preparation for ADL's. Outcome: Partially Met Note: SBA-CGA Goal: OT- LTG static standing balance Description: OT - Patient will complete static standing balance activity with contact guard assist during unilateral task engagement at tabletop level for durations >5 mins with no need for blocking to BLEs in preparation for ADL's. Outcome: Partially Met Note: CGA - can increase to Min A with fatigue in standing past 4-5 mins LE 's continue to buckle at times with fatigue Problem: Mobility - Impaired Goal: OT- STG toilet transfer Description: OT - Patient will complete toilet transfer with maximum assist (x1) with use of AD in preparation for ADL's. Outcome: Completed Problem: Impaired Neurologic Function Goal: OT- STG static standing balance Description: OT - Patient will complete static standing balance activity with moderate assist during unilateral engagement in tabletop tasks for durations up to 2-3 mins with no more than min blocking required to BLEs in preparation for ADL's. Outcome: Completed T [facility] 04-06-2025 Hospital Discharge instructions Dina Thompson RN - 04/06/2025 8:44 AM EDT Images from the original note were not included. If you have any question related to Payment concerns or Financial aide applications you can call Financial Assistance at [facility] : Contact phone numbers : [phone] ( Hours M-F 8am - 6pm) To apply Free Copies of the Financial Assistance Policy and Applications for Financial Assistance may be obtained by: Visiting an [facility] main registration or emergency department desk. Calling [facility] Customer Call Centers Downloading it from [email or web address] Mail completed applications to address on page or deliver it to the main registration desk at an [facility]. Questions regarding the Financial Assistance Policy or the Application form (including assistance completing the form) may be addressed by calling or going to one of the [facility] financial counselor s office . Can also assist with a payment plan if needed. It is important for you to keep all of the follow up appointments as scheduled. If you have a conflict or are unable to keep the appointment you will need to call to reschedule . Recommended to continue skilled services upon discharge : Physical Therapy , Occupational Therapy A referral has been made for you to start Out patient therapies at : [facility] Located in: [facility] Address: [address] [place] [id number] They will be contacting you to arrange an appointment time, if you are not contacted please call. Recommend: assistance available initially upon discharge , assist with medications Recommended : Refrain from driving/operating equipment/machinery and returning to work at this time- if applicable. Refrain from use of firearms, drinking or drug use. Continue the following Precautions : Fall, Bleeding , Spine/Back Current hospital Diet : Diet Therapeutic; Diabetic; Carbohydrate Consistent 75g/meal Oral nutrition supplements Boost Glucose Control Chocolate At dinner May/Will : Need assistance with ADL's (activities of daily living) dressing , grooming/hygiene/personal care & bathroom care ( toileting) May/Will : Need cues/reminders to complete task/sequencing , for safety , daily activities & to maintain any precautions or restrictions you may have. May/Will: Need reminders or cues related to any or all of the following ( If applicable to you ) : Weak side neglect /deficits : safety cues to promote safety awareness & weak side awareness Generalized weakness /fatigue/ need for rest breaks Visual deficits - limitations or fall risks & safety hazards. General awareness to safety precautions/ safety cues : limited insight to risks Need assistance to perform activities in the Kitchen and reminders for kitchen safety Mobility/Transfers/Pivots Upon discharge recommended to initially have a caregiver at your side to help reduce risk of falls during mobility tasks. Initially Caregiver should use gait belt being sent home with you, they should have their hands on you initially when they assist you to : Pivot/ stand/transfer/walk Initially upon return to home Caregiver should stay close by your side during mobility due to weakness/fatigue/balance . May need to be at a wheelchair /chair/bed level when assistance is not available for mobility/tasks for safety. Recommended to do dressing , bathing/shower , grooming, toileting from the seated level with assistance initially . You may need to initially sponge bath when you return to home if you do not have help or can not get in and out of bath/shower area safely. Use assistive devices recommended by therapy staff at discharge : Grab bars, Gait belt , 2 wheeled walker, Shower chair ,bed loop Wheelchair for longer distance Recommend first floor set up for bedroom/bathroom to avoid stairs in home. May need to use a bedside commode on the first floor if the bathroom is on the second level or not accessible. Recommend : To have assistance on steps/stairs to go up & down, should not attempt alone. Install handrails / grab bars on stairs if not already in place. ( inside home & to enter home ) If stairs remain a barrier to you entering or leaving the home , a ramp is recommended. Do not attempt steps for laundry if located off main floor or in basement area at this time, recommended you have family member do laundry for you. Use caution with any mobility , and on uneven surfaces , your balance has not yet returned to normal and you are still at risk for falls You are/may still be having episodes of loss of balance with mobility which increases your risk for falling , use your recommended mobility device at all times & have a home health care coordinator by your side if available. Wear Nonskid foot wear when up. Always have shoes or non skid socks on before you start walking. Sit at edge of bed to make sure you are not dizzy before getting up to stand/transfer/walk You may fatigue easily/quickly with actives/mobility and require frequent rest breaks due to weakness/fatigue. Wear daniela hose, abdominal binder as instructed: Wear abdominal binder whenever out of bed to minimize blood pressure fluctuations Wear knee-high compression stockings whenever out of bed to minimize blood pressure fluctuations and swelling in legs. Apply prior to getting Out of bed. Remove at bedtime. Recommended : Monitor Blood pressure at home. Take your blood pressure twice a day, take it in the morning and evening. OR Take as directed for the medication parameters you were given. Keep a log of the date, time, and reading so that your primary care physician can review it at your outpatient appointment. Places to purchase Home medical Equipment. You can purchase a home blood pressure machine at a retail pharmacy or online . Online ([employer]), [facility], [facility], [facility] Recommended: Monitor Blood glucose at home as instructed. Keep a log of recordings to share with your Primary care doctor at follow up appointment. Incentive spirometry every 2 hours while awake as instructed Continue to wear/use home Cpap as instructed Shift position every 20 minutes when sitting in chair and every 2 hours & as needed when in bed to prevent pressure wounds (bed sores). Monitor skin daily for signs of redness or breakdown. Keep skin clean & dry. Monitor skin to Buttock ( sacrum /coccyx ) skin folds, elbows & heels daily for redness or breakdown . May use barrier cream or protective barrier dressing if needed. Lamps wool pad can be used if needed to sit or lay on . Monitor incisions/wounds : T7/T8 discectomy surgical site: Incision Care You do not need to cover your incision. Clean it each day with mild soap and water. Do not let the water from the shower hit the incision directly until it is healed. Wound 03/23/25 Acute Abrasion(s) Forearm Anterior;Left;Proximal - open to air Wound 03/23/25 Acute Pressure Injury Buttock Posterior - open to air Skin care- Please apply Medline zinc ointment twice daily and as needed in a thin layer. Cleanse with soft bath wipes or no rinse foaming soap (NO CHG WIPES). When cleansing, remove top layer of ointment only, then reapply. Do not scrub ointment off skin, it is designed to stick to raw areas and protect. When should you call for help? Call your doctor now or seek immediate medical care if: You have new pain, or the pain gets worse. The skin near the wound is cold or pale or changes color : Color change, including becoming dark purple/black in color. Increased redness. You have tingling, weakness, or numbness near the wound. The wound starts to bleed, and blood soaks through the bandage. Oozing small amounts of blood is normal. You have symptoms of infection, such as: Increased pain, swelling, warmth, or redness. Red streaks leading from the wound. Pus draining from the wound. A fever. Watch closely for changes in your health, and be sure to contact your doctor if: You do not get better as expected. Continue back precautions as instructed by therapies: Avoid twisting and/or bending the back. You also need to avoid lifting, pushing or pulling objects . Lifting and activity restrictions will be gradually removed by your doctor as the healing process takes place. (abide by a 10 pound weight lifting restriction) Remember to keep your spine in the neutral position and maintain good posture throughout the day. Use the log roll technique shown to you by therapies when getting in and out of bed . Follow all back precautions given to you by nursing & therapies. You should avoid lifting, bending, straining, stooping, or twisting. You should also avoid lifting greater than ten pounds. The following attachments cannot be sent through Care Everywhere.Fall Prevention (Surinamese)Compression Stockings: General Info (Surinamese)5 Steps to Hand Washing: Video (Surinamese)Levodopa and Carbidopa (Surinamese)Gabapentin (Surinamese)documented in this encounter [facility] 04-06-2025 Plan of care note Problem: Actual or potential alteration in health Goal: Absence of healthcare acquired conditions Outcome: Partially Met Goal: Knowledge of Interdisciplinary Plan of Care Outcome: Partially Met Goal: Knowledge of Enviroment Outcome: Partially Met Problem: Pressure Injury, Risk of Goal: Absence of pressure injury Outcome: Partially Met Problem: Falls, Risk of Goal: Absence of falls Outcome: Partially Met Goal: Absence of physical injury Outcome: Partially Met Problem: Pain Goal: Reduced pain sensation Outcome: Partially Met Goal: Control of acute pain to acceptable level Outcome: Partially Met Goal: Able to cope with pain Outcome: Partially Met Goal: Able to achieve maximum level of physical functioning Outcome: Partially Met Goal: Able to achieve maximum level of psychosocial functioning Outcome: Partially Met [facility] 04-05-2025 Note PM&R Progress note ASSESSMENT/PLAN: A: Gracie Lemons continues to demonstrate impairments and medical need appropriate for comprehensive acute inpt rehab T7/T8 discectomy 2/2 thoracic spinal stenosis - Continue Ibuprofen prn pain - Do not order Tylenol based on allergy - Flexeril scheduled for muscle spasms- made prn 03/29 due to increased fatigue - Transferred to IRF 03/23 - Initiate PT/OT for ADLs, transfers and ambulation RLE weakness - Likely 2/2 plexopathy due to positioning during surgery - Continue PT/OT - Consider CT head if other stroke like symptoms occur 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 instability for the last 2 years - Noted masked facies, shuffling gait, tremors, bradykinesia - Low dose Sinemet ordered 03/25 - Increased Sinemet to 1 tab at lunch and 0.5 tabs with breakfast and dinner- can continue to increase as needed - Sinemet increased to 1 tab TID 04/01 RAFAEL - Patient uses CPAP at home, family to bring in machine Dementia - Continue Donepezil HTN - Continue Lisinopril, Metoprolol - Blood pressure parameters put in place for hypotension - Lisinopril decreased 03/26 for hypotension - Lisinopril decreased 03/29 for hypotension Hyperthyroidism - Continue Levothyroxine GERD - Continue Pantoprazole HLD - Continue Atorvastatin, Zetia 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 He feels like his R leg has gotten stronger. He denies any new LE paresthesias. He had a few episodes of diarrhea yesterday. He denies any abdominal pain. Review of systems: No cp, SOA, n/v/d. Temp: [97.3 degrees F (36.3 degrees C)-97.8 degrees F (36.6 degrees C)] 97.3 degrees F (36.3 degrees C) Heart Rate: [65-82] 70 Resp: [16-20] 18 BP: (103-133)/(62-79) 117/78 Physical Exam: General Appearance: In no apparent distress, well nourished HEENT: Normocephalic, atraumatic, neck supple, EOMI, PER Respiratory: On room air, no respiratory distress Cardiovascular: Peripheral pulses palpable, no edema Abdomen: Nontender, nondistended Musculoskeletal: No acute injury or gross deformity, 4/5 R hip flexion, 5/5 L hip flexion Skin: No rashes visualized, normal paplaption of skin and soft tissues Psychiatric: Normal mood and affect, appropriate insight and judgement Therapy Assessments: Assessments per PT, OT, ST documentation (last filed value): Home Living Type of Home: House (03/24/25 1029) Home Layout: One level (laundry on main floor. Does not need to go to basement.) (03/24/25 1029) Bathroom Shower/Tub: Walk-in shower, Main level (3 threshold to enter) (03/24/25 102) Bathroom Toilet: Raised, Main level (03/24/25 102) Bathroom Equipment: Grab bars in shower, Hand-held showerhead, Shower chair, Bedside commode, Toilet seat capacity analyst (toilet safety frame) (03/24/25 102) Bathroom Accessibility: (not recorded) Mobility Equipment: Cane, Wheeled walker, Rollator (Spare bed has adjustable features (their specific bed is not adjustable)) (03/24/25 102) Additional Objective Details - Home Living: Pt was standing to shower prior to admit. All information verified with spouse who is present during session. Pt with incorrect responses at times with self-report of home setup. 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 Spouse reports every now and then she would make pt use the WW if more unsteady that day. Pt did not ambulate in community (stayed in car when going to store, etc); spouse reports his legs would get tired easily.Spouse does indoor IADLs and patient was doing yardwork/mowing. Pt injured R shoulder ~2 months ago (had started physical therapy) - spouse reporting it was a chronic RTC tear from MRI. Son and DIL live next door and had taken over barn chores. Spouse was handling the finances and meds for patient. (03/24/25 1029) Current Level of Function Balance: Sitting Balance - Static: Supervision or Touching Assistance (SBA) (03/27/25729) Sitting Balance - Dynamic: Supervision or Touching Assistance (CGA) (03/27/25729) Standing Balance - Static: Partial/Moderate Assistance (more content not included)... [facility] 04-05-2025 Plan of care note [facility] Nurse Notes Problem: Actual or potential alteration in health Goal: Absence of healthcare acquired conditions Outcome: Partially Met Goal: Knowledge of Interdisciplinary Plan of Care Outcome: Partially Met Goal: Knowledge of Enviroment Outcome: Partially Met Problem: Pressure Injury, Risk of Goal: Absence of pressure injury Outcome: Partially Met Problem: Falls, Risk of Goal: Absence of falls Outcome: Partially Met Goal: Absence of physical injury Outcome: Partially Met Problem: Pain Goal: Reduced pain sensation Outcome: Partially Met Goal: Control of acute pain to acceptable level Outcome: Partially Met Goal: Able to cope with pain Outcome: Partially Met Goal: Able to achieve maximum level of physical functioning Outcome: Partially Met Goal: Able to achieve maximum level of psychosocial functioning Outcome: Partially Met [facility] 04-05-2025 Plan of care note I[facility] Nurse Notes Problem: Actual or potential alteration in health Goal: Absence of healthcare acquired conditions Outcome: Partially Met Goal: Knowledge of Interdisciplinary Plan of Care Outcome: Partially Met Goal: Knowledge of Enviroment Outcome: Partially Met Problem: Pressure Injury, Risk of Goal: Absence of pressure injury Outcome: Partially Met Problem: Falls, Risk of Goal: Absence of falls Outcome: Partially Met Goal: Absence of physical injury Outcome: Partially Met Problem: Pain Goal: Reduced pain sensation Outcome: Partially Met Goal: Control of acute pain to acceptable level Outcome: Partially Met Goal: Able to cope with pain Outcome: Partially Met Goal: Able to achieve maximum level of physical functioning Outcome: Partially Met Goal: Able to achieve maximum level of psychosocial functioning Outcome: Partially Met [facility] 04-04-2025 Plan of care note I[facility] Nurse Notes Problem: Actual or potential alteration in health Goal: Absence of healthcare acquired conditions Outcome: Partially Met Goal: Knowledge of Interdisciplinary Plan of Care Outcome: Partially Met Goal: Knowledge of Enviroment Outcome: Partially Met Problem: Pressure Injury, Risk of Goal: Absence of pressure injury Outcome: Partially Met Problem: Falls, Risk of Goal: Absence of falls Outcome: Partially Met Goal: Absence of physical injury Outcome: Partially Met Problem: Pain Goal: Reduced pain sensation Outcome: Partially Met Goal: Control of acute pain to acceptable level Outcome: Partially Met Goal: Able to cope with pain Outcome: Partially Met Goal: Able to achieve maximum level of physical functioning Outcome: Partially Met Goal: Able to achieve maximum level of psychosocial functioning Outcome: Partially Met [facility] 04-03-2025 Plan of care note IPR[facility] Nurse Notes Problem: Actual or potential alteration in health Goal: Absence of healthcare acquired conditions Outcome: Partially Met Goal: Knowledge of Interdisciplinary Plan of Care Outcome: Partially Met Goal: Knowledge of Enviroment Outcome: Partially Met Problem: Pressure Injury, Risk of Goal: Absence of pressure injury Outcome: Partially Met Problem: Falls, Risk of Goal: Absence of falls Outcome: Partially Met Goal: Absence of physical injury Outcome: Partially Met Problem: Pain Goal: Reduced pain sensation Outcome: Partially Met Goal: Control of acute pain to acceptable level Outcome: Partially Met Goal: Able to cope with pain Outcome: Partially Met Goal: Able to achieve maximum level of physical functioning Outcome: Partially Met Goal: Able to achieve maximum level of psychosocial functioning Outcome: Partially Met [facility] 04-03-2025 Plan of care note Problem: Actual or potential alteration in health Goal: Absence of healthcare acquired conditions Outcome: Partially Met Goal: Knowledge of Interdisciplinary Plan of Care Outcome: Partially Met Goal: Knowledge of Enviroment Outcome: Partially Met Problem: Pressure Injury, Risk of Goal: Absence of pressure injury Outcome: Partially Met Problem: Falls, Risk of Goal: Absence of falls Outcome: Partially Met Goal: Absence of physical injury Outcome: Partially Met [facility] 04-02-2025 Note [facility] Patient name: Gracie Lemons Date of : 1950 Assessment and plan Gracie Lemons is a 75 y.o. male patient of Armando Kohli MD with history of anemia, BPH, CAD, DM, GERD, HLD, HTN, RAFAEL, and CVA presented to IRF on 03/23/2025 with debility s/p T7-8 discectomy. Debility Impaired Mobility and ADLs Comprehensive Rehab with PT/OT/ST PMR following T7-T8 Discectomy Right Side Weakness Parkinsonian Features T7-8 Discectomy on 03/11 at [facility] with neurosurgery Patient with subsequent Right side weakness Neurology at [employer] believes it to possibly be lumbosacral plexopathy Patient with Parkinsonian features including masked facies, hypophonic speech, cogwheeling rigidity of axial and appendicular muscles, and bradykinesia A referral has been sent to [facility] Continue Flexeril, gabapentin, and nortriptyline Continue low dose Sinemet, may need to up titrate if no response in a week. May titrate up to 1 pill on 04/01/25 Noted that PT is not seeing a shuffling gait in last two treatments Pressure Injury Coccyx, POA Pressure Injury gluteal fold, POA Consult Wound Care - orders placed Fibrotic Lung Disease Continue Mucinex Ordered home OFEV, family brought in it is non-formulary History of CVA CAD HTN HLD Continue atorvastatin, Plavix, Zetia, lisinopril, and metoprolol 50 mg bid Lisinopril decreased to 5 mg daily due to hypotension Type 2 Diabetes HgbA1C 7.7 in June 2024 Diabetic Diet Sliding Scale Insulin Recommend outpatient follow-up Bilateral nares small scabbed area Bacitracin bid Hypothyroidism Will check TSH and reflex T4 TSH 3.92, Free T4 1.5 Continue levothyroxine Cognitive Disorder Continue donepezil GERD Continue Protonix Vitamin D Deficiency Continue Supplementation RAFAEL CPAP ordered, refused overnight 2L/NC while sleeping if refusing CPAP Chronic Anemia Hgb 13.0 Baseline Hgb 10-13 Continue Ferrous Sulfate Overweight BMI 29.09 Encourage Diet and Lifestyle modifications Discharge planning Medically ready for discharge: no Patient and/or family has been notified they are expected to be medically stable for discharge on the following date: 04/07/25 Patient requires continued hospitalization due to: Inpatient Rehab Discussed with the patient and/or family that the following is a potential discharge location, understanding that the final plan will depend on the patient's progress and shared decision-making: Home with home health The following resources have been ordered to assist with discharge barriers: care management, PT, OT Quality measures DVT prophylaxis: lovenox Lei catheter: absent Code status Full Code Subjective Complaint of scant bleeding and scabbed area inside of both nostrils. Objective BP 101/65 (Patient Position: Sitting) Pulse 74 Temp 97.9 degrees F (36.6 degrees C) (Oral) Resp 16 Ht 5' 5 Wt 73.4 kg (161 lb 13.1 oz) SpO2 96% BMI 26.93 kg/m General appearance: alert; chronically ill appearing; in no acute distress HEENT: Head- normocephalic; Eyes- EOMI, sclera anicteric; Throat- mucous membranes moist Cardiovascular: regular rate and rhythm; normal S1, S2; no murmurs, rubs, clicks or gallops; peripheral edema absent Respiratory: lungs clear to auscultation; without wheezes, rales or rhonchi; on room air Abdomen: soft, non-tender, non-distended Neurological: oriented x 3; normal speech; parkinsonian movements, right side weakness Musculoskeletal: no significant deformity, unable to extend right arm all the way Skin: normal coloration Psych: normal mood and affect AUTHENTICATED BY CATHIE LOPEZ, ON 04/02/2025 15:36:47 [facility] 04-02-2025 Note DME [id number] Att estation: Patient Name: Gracie Lemons Prescribing Physician Patient Diagnosis: Status post discectomy - - Plan: Wheelchair, wheelchair cushion I have evaluated the patient and based on my findings the following DME is/are medically necessary: Wheelchair for the treatment of mobility limitations to enable participation in mobility-related activites of daily living (MRADL) in the home. The patient is able to propel himself with the wheelchair and use it safely. It is not safe for him to use a walker at all times due to lower extremity weakness and suffling gait that worsens with distance. He is willing to use the chair and his is willing to assist his use of the wheelchair. Patient was seen today for a [id number] evaluation regarding home durable medical equipment (DME). Patient has a history of the above diagnoses, and due to the functional deficits related to these diagnoses, including impaired mobility and ADLs, they require the use of this DME. This equipment is necessary to discharge the patient safely to their home environment and will promote increased independence for this patient to manage the dawson elements of mobility and ADLs within the home. This equipment is deemed reasonable and medically necessary. See therapy note for further information on DME specifications. AUTHENTICATED BY ROGELIO ESPINOSA, ON 04/02/2025 13:36:13 [facility] 04-02-2025 Note PM&R Progress note ASSESSMENT/PLAN: A: Gracie Lemons continues to demonstrate impairments and medical need appropriate for comprehensive acute inpt rehab T7/T8 discectomy 2/2 thoracic spinal stenosis - Continue Ibuprofen prn pain - Do not order Tylenol based on allergy - Flexeril scheduled for muscle spasms- made prn 03/29 due to increased fatigue - Transferred to IRF 03/23 - Initiate PT/OT for ADLs, transfers and ambulation RLE weakness - Likely 2/2 plexopathy due to positioning during surgery - Continue PT/OT - Consider CT head if other stroke like symptoms occur 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 instability for the last 2 years - Noted masked facies, shuffling gait, tremors, bradykinesia - Low dose Sinemet ordered 03/25 - Increased Sinemet to 1 tab at lunch and 0.5 tabs with breakfast and dinner- can continue to increase as needed - Sinemet increased to 1 tab TID 04/01 RAFAEL - Patient uses CPAP at home, family to bring in machine Dementia - Continue Donepezil HTN - Continue Lisinopril, Metoprolol - Blood pressure parameters put in place for hypotension - Lisinopril decreased 03/26 for hypotension - Lisinopril decreased 03/29 for hypotension - Lisinopril stopped 04/02 due to continued hypotension Hyperthyroidism - Continue Levothyroxine GERD - Continue Pantoprazole HLD - Continue Atorvastatin, Zetia 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 He denies any sede effects from the increased Sinemet dose started yesterday. He reports that he slept well. He denies any CP or SOB. He had a BM yesterday. He denies any abdominal pain. Review of systems: No cp, SOA, n/v/d. Temp: [97.8 degrees F (36.6 degrees C)-98 degrees F (36.7 degrees C)] 98 degrees F (36.7 degrees C) Heart Rate: [78-109] 109 Resp: [16] 16 BP: (99-116)/(63-78) 116/78 Physical Exam: General Appearance: In no apparent distress, well nourished HEENT: Normocephalic, atraumatic, neck supple, EOMI, PER Respiratory: On room air, no respiratory distress Cardiovascular: Peripheral pulses palpable, no edema Abdomen: Nontender, nondistended Musculoskeletal: No acute injury or gross deformity, 4+/5 R shoulder flexion, 5/5 L shoulder flexion Skin: No rashes visualized, normal paplaption of skin and soft tissues Psychiatric: Normal mood and affect, appropriate insight and judgement Therapy Assessments: Assessments per PT, OT, ST documentation (last filed value): Home Living Type of Home: House (03/24/25 102) Home Layout: One level (laundry on main floor. Does not need to go to basement.) (03/24/25 102) Bathroom Shower/Tub: Walk-in shower, Main level (3 threshold to enter) (03/24/25 102) Bathroom Toilet: Raised, Main level (03/24/25 102) Bathroom Equipment: Grab bars in shower, Hand-held showerhead, Shower chair, Bedside commode, Toilet seat capacity analyst (toilet safety frame) (03/24/25 102) Bathroom Accessibility: (not recorded) Mobility Equipment: Cane, Wheeled walker, Rollator (Spare bed has adjustable features (their specific bed is not adjustable)) (03/24/25 102) Additional Objective Details - Home Living: Pt was standing to shower prior to admit. All information verified with spouse who is present during session. Pt with incorrect responses at times with self-report of home setup. 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 Spouse reports every now and then she would make pt use the WW if more unsteady that day. Pt did not ambulate in community (stayed in car when going to store, etc); spouse reports his legs would get tired easily.Spouse does indoor IADLs and patient was doing yardwork/mowing. Pt injured R shoulder ~2 months ago (had started physical therapy) - spouse reporting it was a chronic RTC tear from MRI. Son and DIL live next door and had taken over barn chores. Spouse was handling the finances and meds for patient. (03/24/25 102) Current Level of Function Balance: Sitting Balance - Static: Supervision or Touching Assistance (SBA) (03/27/25 1230) Sitting Balance - Dynamic: Supervision or Jimmy (more content not included)... [facility] 04-02-2025 Plan of care note Problem: Actual or potential alteration in health Goal: Absence of healthcare acquired conditions Outcome: Partially Met Goal: Knowledge of Interdisciplinary Plan of Care Outcome: Partially Met Goal: Knowledge of Enviroment Outcome: Partially Met Problem: Pressure Injury, Risk of Goal: Absence of pressure injury Outcome: Partially Met Problem: Falls, Risk of Goal: Absence of falls Outcome: Partially Met Goal: Absence of physical injury Outcome: Partially Met Problem: Pain Goal: Reduced pain sensation Outcome: Partially Met Goal: Control of acute pain to acceptable level Outcome: Partially Met Goal: Able to cope with pain Outcome: Partially Met Goal: Able to achieve maximum level of physical functioning Outcome: Partially Met Goal: Able to achieve maximum level of psychosocial functioning Outcome: Partially Met [facility] 04-01-2025 Plan of care note Problem: Actual or potential alteration in health Goal: Absence of healthcare acquired conditions Outcome: Partially Met Goal: Knowledge of Interdisciplinary Plan of Care Outcome: Partially Met Goal: Knowledge of Enviroment Outcome: Partially Met Problem: Pressure Injury, Risk of Goal: Absence of pressure injury Outcome: Partially Met Problem: Falls, Risk of Goal: Absence of falls Outcome: Partially Met Goal: Absence of physical injury Outcome: Partially Met Problem: Pain Goal: Reduced pain sensation Outcome: Partially Met Goal: Control of acute pain to acceptable level Outcome: Partially Met Goal: Able to cope with pain Outcome: Partially Met Goal: Able to achieve maximum level of physical functioning Outcome: Partially Met Goal: Able to achieve maximum level of psychosocial functioning Outcome: Partially Met [facility] 04-01-2025 Note PM&R Progress note ASSESSMENT/PLAN: A: Gracie Lemons continues to demonstrate impairments and medical need appropriate for comprehensive acute inpt rehab T7/T8 discectomy 2/2 thoracic spinal stenosis - Continue Ibuprofen prn pain - Do not order Tylenol based on allergy - Flexeril scheduled for muscle spasms- made prn 03/29 due to increased fatigue - Transferred to IRF 03/23 - Initiate PT/OT for ADLs, transfers and ambulation RLE weakness - Likely 2/2 plexopathy due to positioning during surgery - Continue PT/OT - Consider CT head if other stroke like symptoms occur 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 instability for the last 2 years - Noted masked facies, shuffling gait, tremors, bradykinesia - Low dose Sinemet ordered 03/25 - Increased Sinemet to 1 tab at lunch and 0.5 tabs with breakfast and dinner- can continue to increase as needed - Sinemet increased to 1 tab TID 04/01 RAFAEL - Patient uses CPAP at home, family to bring in machine Dementia - Continue Donepezil HTN - Continue Lisinopril, Metoprolol - Blood pressure parameters put in place for hypotension - Lisinopril decreased 10/10 for hypotension - Lisinopril decreased 10/13 for hypotension Hyperthyroidism - Continue Levothyroxine GERD - Continue Pantoprazole HLD - Continue Atorvastatin, Zetia 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 He feels like his R leg has gotten stronger. He denies any new LE paresthesias. He had a few episodes of diarrhea yesterday. He denies any abdominal pain. Review of systems: No cp, SOA, n/v/d. Temp: [97.9 degrees F (36.6 degrees C)-98 degrees F (36.7 degrees C)] 98 degrees F (36.7 degrees C) Heart Rate: [86-98] 86 Resp: [16-18] 16 BP: (108-119)/(72-82) 118/72 Physical Exam: General Appearance: In no apparent distress, well nourished HEENT: Normocephalic, atraumatic, neck supple, EOMI, PER Respiratory: On room air, no respiratory distress Cardiovascular: Peripheral pulses palpable, no edema Abdomen: Nontender, nondistended Musculoskeletal: No acute injury or gross deformity, 4/5 R hip flexion, 5/5 L hip flexion Skin: No rashes visualized, normal paplaption of skin and soft tissues Psychiatric: Normal mood and affect, appropriate insight and judgement Therapy Assessments: Assessments per PT, OT, ST documentation (last filed value): Home Living Type of Home: House (03/24/25 102) Home Layout: One level (laundry on main floor. Does not need to go to basement.) (03/24/25 102) Bathroom Shower/Tub: Walk-in shower, Main level (3 threshold to enter) (03/24/25 102) Bathroom Toilet: Raised, Main level (03/24/25 102) Bathroom Equipment: Grab bars in shower, Hand-held showerhead, Shower chair, Bedside commode, Toilet seat capacity analyst (toilet safety frame) (03/24/25 102) Bathroom Accessibility: (not recorded) Mobility Equipment: Cane, Wheeled walker, Rollator (Spare bed has adjustable features (their specific bed is not adjustable)) (03/24/25 102) Additional Objective Details - Home Living: Pt was standing to shower prior to admit. All information verified with spouse who is present during session. Pt with incorrect responses at times with self-report of home setup. 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 Spouse reports every now and then she would make pt use the WW if more unsteady that day. Pt did not ambulate in community (stayed in car when going to store, etc); spouse reports his legs would get tired easily.Spouse does indoor IADLs and patient was doing yardwork/mowing. Pt injured R shoulder ~2 months ago (had started physical therapy) - spouse reporting it was a chronic RTC tear from MRI. Son and DIL live next door and had taken over barn chores. Spouse was handling the finances and meds for patient. (03/24/25 102) Current Level of Function Balance: Sitting Balance - Static: Supervision or Touching Assistance (SBA) (03/27/25729) Sitting Balance - Dynamic: Supervision or Touching Assistance (CGA) (03/27/25729) Standing Balance - Static: Partial/Moderate Assistance (CG (more content not included)... [facility] 04-01-2025 Plan of care note IPRU Nurse Notes Problem: Actual or potential alteration in health Goal: Absence of healthcare acquired conditions Outcome: Partially Met Goal: Knowledge of Interdisciplinary Plan of Care Outcome: Partially Met Goal: Knowledge of Enviroment Outcome: Partially Met Problem: Pressure Injury, Risk of Goal: Absence of pressure injury Outcome: Partially Met Problem: Falls, Risk of Goal: Absence of falls Outcome: Partially Met Goal: Absence of physical injury Outcome: Partially Met Problem: Pain Goal: Reduced pain sensation Outcome: Partially Met Goal: Control of acute pain to acceptable level Outcome: Partially Met Goal: Able to cope with pain Outcome: Partially Met Goal: Able to achieve maximum level of physical functioning Outcome: Partially Met Goal: Able to achieve maximum level of psychosocial functioning Outcome: Partially Met [facility] 03-31-2025 Consult note Formatting of th is note is different from the original. Images from the original note were not included. Wound 03/23/25 Acute Pressure Injury Buttock Posterior (Active) Properties Placement Date 03/23/25 Placement Time 1621 Wound Location Orientation Posterior Present on Original Admission Yes Wound Approximate Age at First Assessment (Weeks) 7 weeks Wound Condition (HOME HEALTH ONLY) Acute Primary Wound Type Pressure Injury Location Buttock Assessments 03/31/2025 1:41 PM Wound Image Wound Length (cm) 1 cm Wound Width (cm) 0.5 cm Wound Depth (cm) 0.1 cm Wound Surface Area (cm^2) 0.39 cm^2 Wound Volume (cm^3) 0.026 cm^3 Area % Change -83.5 Wound Healing % 67 Wound Progress Improving Drainage Amount Scant Drainage Description Serous Odor None Wound Characteristics Granulation tissue;Epitheliaization Complex Wound Charting Granulation %;Epithelialization % Epithelialization % 95 Granulation % 5 Shyann-wound Assessment Temperature WNL Active Orders Date Order Priority Status Authorizing Provider 03/24/25 1433 Change dressing Buttock Routine Active Rogelio Espinosa MD - Specify site: Buttock - Product(s): Medline Zinc Barrier (orange top) - Cleanse site with: Soap and water 03/24/25 1301 Inpatient consult to Enterostomal Therapy Routine Active Oma Smart CNP - Reason For Consult?: Wound Care - Wound location(s) or Specific need: Coccyx, gluteal folds 03/24/2025 03/31/2025 Wound care performed reassessment of healing pressure injury to the buttock. Measurements smaller and more epithelial tissue present. Patient continues to respond positively with current treatment so will continue with current orders and interventions. Centrella Pro Plus bed in place. Wound care to continue following. [facility] 03-31-2025 Consult note Formatting of th is note is different from the original. Images from the original note were not included. Wound 03/23/25 Acute Pressure Injury Buttock Posterior (Active) Properties Placement Date 03/23/25 Placement Time 1621 Wound Location Orientation Posterior Present on Original Admission Yes Wound Approximate Age at First Assessment (Weeks) 7 weeks Wound Condition (HOME HEALTH ONLY) Acute Primary Wound Type Pressure Injury Location Buttock Assessments 03/31/2025 1:41 PM Wound Image Wound Length (cm) 1 cm Wound Width (cm) 0.5 cm Wound Depth (cm) 0.1 cm Wound Surface Area (cm^2) 0.39 cm^2 Wound Volume (cm^3) 0.026 cm^3 Area % Change -83.5 Wound Healing % 67 Wound Progress Improving Drainage Amount Scant Drainage Description Serous Odor None Wound Characteristics Granulation tissue;Epitheliaization Complex Wound Charting Granulation %;Epithelialization % Epithelialization % 95 Granulation % 5 Shyann-wound Assessment Temperature WNL Active Orders Date Order Priority Status Authorizing Provider 03/24/25 1433 Change dressing Buttock Routine Active Rogelio Espinosa MD - Specify site: Buttock - Product(s): Medline Zinc Barrier (orange top) - Cleanse site with: Soap and water 03/24/25 1301 Inpatient consult to Enterostomal Therapy Routine Active Oma Smart CNP - Reason For Consult?: Wound Care - Wound location(s) or Specific need: Coccyx, gluteal folds 03/24/2025 03/31/2025 Wound care performed reassessment of healing pressure injury to the buttock. Measurements smaller and more epithelial tissue present. Patient continues to respond positively with current treatment so will continue with current orders and interventions. Centrella Pro Plus bed in place. Wound care to continue following. Images from the original note were not included. 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 Verbal consent was obtained when possible for any photographs uploaded to the patient's chart. Description of visit: Wound 03/23/25 Acute Pressure Injury Buttock Posterior (Active) Properties Placement Date 03/23/25 Placement Time 1621 Wound Location Orientation Posterior Present on Original Admission Yes Wound Approximate Age at First Assessment (Weeks) 7 weeks Wound Condition (HOME HEALTH ONLY) Acute Primary Wound Type Pressure Injury Location Buttock Assessments 03/24/2025 2:18 PM Wound Image Wound Length (cm) 3 cm Wound Width (cm) 1 cm Wound Depth (cm) 0.1 cm Wound Surface Area (cm^2) 2.36 cm^2 Wound Volume (cm^3) 0.157 cm^3 Area % Change 100 Wound Healing % -99 Drainage Amount None Odor None Wound Characteristics [place] Complex Wound Charting Pressure Injury Pressure Injury Stage Unstageable Shyann-wound Assessment Temperature WNL Active Orders Date Order Priority Status Authorizing Provider 03/24/25 1433 Change dressing Buttock Routine Active oRgelio Espinosa MD - Specify site: Buttock - Product(s): Medline Zinc Barrier (orange top) - Cleanse site with: Soap and water 03/24/25 1301 Inpatient consult to Enterostomal Therapy Routine Active Oma Smart CNP - Reason For Consult?: Wound Care - Wound location(s) or Specific need: Coccyx, gluteal folds Dressing order written: Cleanse wound to buttock with soap and water. Apply medline zinc barrier cream (orange top) to wound and allow area to remain open to air. Reapply daily and PRN if soiled or saturated. Patient was able to reposition with assistance for care. Patient rated pain denied. Current Anirudh (Pressure Injury Risk) Scores per last staff nurse values: Anirudh Scale Sensory Perceptions: Slightly limited [3] Moisture: Occasionally moist [3] Activity: Chairfast [2] Mobility: Very limited [2] Nutrition: Adequate [3] Friction and Shear: Potential problem [2] Anirudh Scale Score: 15 Anirudh Scale scores ranging from 9 or less indicate SEVERE risk, 10-12 equal high risk, 13-14 determine a moderate risk, 15-19 indicate mild risk. Recommend prevention/interventions for subscale scores of 2 or lower. Specialty Care Plan: Education: Education provided to patient and patient's family/caregiver regarding treatment plan and any potential barriers to wound healing. Prevention measures recommended: Q2 hour turns and Offloading/Repositioning Wedges Utilize Barrier Cream Hospital Bed Pressure Redistribution ordered Centrella Applicable consults: Outpatient Wound Clinic referral placed or Wound Clinic contacted for appointment Updates relayed to staff nurse and provider. Orders and AVS updated with Wound Care instructions and education as applicable. Will continue to follow. Please note that Wound Care Team is unavailable on Weekends and Holidays. 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 Per H&P: Patient is a 75 y.o. male patient of Armando Kohli MD with history of anemia, BPH, CAD, DM, GERD, HLD, HTN, RAFAEL, and CVA presented to IRF on 03/23/2025 with debility s/p T7-8 discectomy. Patient was admitted inpatient on 03/11 for a T7-8 discectomy. Hospitalization was complicated by a right pneumothorax requiring Chest tube placement and right side weakness. Patient currently denies fever, chills, chest pain, abdominal pain, nausea, vomiting, diarrhea, constipation, or dysuria. Pt's chief complaints include: NA - spouse reporting significant decline in cognition. An informal speech language cognitive evaluation was completed this date to determine need for skilled speech services while in IPR. Pt completed O Log and informal questioning, however results are limited d/t fatigue. Pt presents w/functional expressive language abilities to express basic wants/needs; however pts spouse reporting progressive decrease in vocal loudness over the past several years Pt presents w/functional receptive language abilities for basic commands and conversation; however assessment limited d/t fatigue Pt presents w/moderate-severe cognitive linguistic deficits characterized by impaired orientation, attention, level of alertness, reasoning, memory, and insight and benefits from mod-max A semantic and MC cueing intermittently. Ongoing assessment recommended to further assess cognition as assessment this date was limited 2/2 fatigue. 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 Potential barriers to rehab include: cognitive endurance, cognitive limitations, reduced insight, and deficit awareness. The patient would benefit from skilled ST services focused on the above listed impairments and limitations in order to demonstrate improved functional cognitive-communication skills, including use of memory strategies, for increased safety, and independence w/ADLs Oral/Motor: Oral Motor Impression-Severity Scale: WFL Voice: Voice Breath Support: WFL Vocal Quality: Weak Vocal Intensity: Moderately decreased Auditory Comprehension: Auditory Comp Impression-Severity Scale: WFL (basic commands and conversation) Hearing: Hard of hearing/hearing concerns (reports difficulty hearing in the presence of background noise) Visual Perception: Visual Perception: No acute visual changes (per pt report) Reading Comprehension: Reading Comp Impression-Severity: Requires further assessment Expressive Language: Expressive Language Impression-Severity: Modified Indep/Extended time Primary Mode of Expression: Verbal Interfering Components: Attention, Impaired thought organization (level of alertness) Motor Speech: Motor Speech Impression Severity: WFL Speech Intelligibility: WFL Written Expression: Written Expression Impression-Severity: Requires further assessment Cognitive-Communication: Speech Cognition Impression-Severity: 50-75% (Moderate), 25-50% (Severe), Requires further assessment (assessment limited d/t fatigue) Orientation Level: Oriented to person, Disoriented to place, Disoriented to time, Disoriented to situation Attention: Exceptions to WFL Sustained Attention: 50-75% (Moderate), 25-50% (Severe) Memory: Exceptions to WFL Immediate recall: 90-100% (Supervision, Occasional Assist) Delayed recall: 25-50% (Severe) Verbal Problem Solving: Exceptions to WFL Verbal Reasoning Skills: 25-50% (Severe) Safety/Judgement: Exceptions to WFL Behavioral Observations: bed alarm, fall risk Insight: Decreased awareness of impairment, Decreased insight into impact of injury/deficits Task Initiation: Delayed initiation, Initiates with cues Flexibility of Thought: Reduced flexibility Auditory Processing Difficulty: Mod delay Pragmatics: Flat affect, Decreased eye contact (lethargic) Patient O-Log (Orientation Log) Score - Cut off score 25 or better on two separate administrations: Orientation-log: Yes City: [address]: 2 Name of Hospital: 2 Month: 3 Date: 2 Year: 1 Day of Week: 3 Clock Time: 3 Etiology / Event: 0 Pathology Deficits: 0 Orientation Log Total Score (out of 30): 17 Prior Level of Function: Reason for Referral: Altered mental status Primary Language: Surinamese 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, 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, 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) Education Level: High school grad or equivalent, College grad (BA) Living Situation: With others, Independent with ADL's, Assistance provided with managing medications, Assistance provided with finance management, Drives, Cooking, Cleaning Prior Speech Deficit: No known previous deficits, Per chart review, Per patient report Prior Language Deficit: No known previous deficits, Per chart review, Per patient report Prior Cognitive Deficit: Suspected cognitive deficits, Per caregiver report, Memory changes (recently started on aricept by PCP) Other pertinent diagnoses affecting cog/comm/voice: (meningioma and TIA 22 yrs ago) QI CARE Score - Eatin CARE Score - Oral Hygiene: 88 No past medical history on file. No past surgical history on file. For complete objective data, detailed plan of care, and education refer to: Speech Comm/Cog Eval flowsheet, as well as patient Plan of Care and Education documentation. Date: 03/24/2025 Time: 12:15 PM Patient Name: Gracie Lemons Date of : 1950 Reason for Consult: Spoke with pt this am at bedside , assisted OT to get pt to chair. Introduced self to pt. Will come back to see him again at a later time. Discharge planning Discharge Plan Discussion: Discharge Plan: Plan A: Home (HHC vs OP) Plan B: [facility] Facility Transportation To be determined . Assessment and Background Information: Care Management Assessment - Consult Chart has been reviewed, see H&P for relevant medical history. will see pt to complete face to face assessment at later time Living Arrangements & listed support systems as: per chart : Lives With: Spouse (Idalia) Type of Home: House Home Layout: One level (laundry on main floor. Does not need to go to basement.) Rails on inside stairs: 2 rails Number of stairs inside home: 16 Steps to enter home: Yes Rails to enter home: 1 rail, L rail going up (+ bilateral grab bars on doorframe) Number of stairs to enter home: 3 Bathroom Shower/Tub: Walk-in shower, Main level (3 threshold to enter) Bathroom Toilet: Raised, Main level Bathroom Equipment: Grab bars in shower, Hand-held showerhead, Shower chair, Bedside commode, Toilet seat capacity analyst (toilet safety frame) Mobility Equipment: Cane, Wheeled walker, Rollator (Spare bed has adjustable features (their specific bed is not adjustable)) ADL Equipment: (none) Additional Objective Details - Home Living: Pt was standing to shower prior to admit. All information verified with spouse who is present during session. Pt with incorrect responses at times with self-report of home setup. 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 Advance Directives: Advance Directive: Patient has advance directive, copy in chart Advance Directive not in Chart: Copy requested from family Type of Healthcare Directive: Durable power of civil attorney for health care, Living will Information Provided on Healthcare Directives: No Patient Support: Does Patient have a PCP?: Yes Living Arrangements: Spouse/significant other (Idalia Lemons (Spouse) [phone]) Type of Residence: Private residence (3 STORM, 0 HR WIS) Support Systems: Spouse/significant other Assistance Needed: yes Current Home Equipment: Front-wheeled walker, Cane (AFO- LLE) Caregiver Assessment: Will discuss further with pt and Will continue to follow patient during their IPR admit. Will assist pt & caregiver to develop appropriate discharge plan to meet their needs as IP Rehab admit progresses and comes to the end of their stay. Inpatient Rehab Occupational Therapy - Evaluation Note Patient admitted 03/11/25 to [employer] for planned T7/8 lateral retro pleural discectomy. RLE weakness following surgery 2* plexopathy from positioning during surgery Parkinsonian features Fibrotic lung disease PMH: DM, HTN, HLD, CAD, hx of L3-S1 decompression/fusion in 2012 OT Time Calculation Start Time: 1029 Stop Time: 1205 Time Calculation (min): 96 min OT Individual Therapy Min: 96 Problem List / Diagnosis Problem List[1] Occupational Therapy Assessment The patient presents with musculoskeletal, neurological impairment(s) in generalized debility, spine, trunk, bilateral, upper extremity, lower extremity, which create performance deficits including strength, range of motion, balance, coordination, acitvity tolerance, respiratory capacity, orientation, problem solving, sequencing, memory, alertness, perception, insight, safety, and knowledge deficit. These performance impairments limit participation in grooming, UE dressing, LE dressing, bathing, toileting, home management, hobbies, functional mobility in the chosen occupational roles of premorbid level individual, parent, spouse, family member, community member. The patient's co-morbidities do significantly affect patient performance in the above activities and roles. The patient's home setup is a slumber room attendant, family / caregiver support is a slumber room attendant for return to prior level of function. The patient's awareness of own capacity and performance is a slumber room attendant to return to prior level of function. During the assessment, significant modification of task modification of task was required and multiple treatment options treatment options were identified in the plan of care. This consultation required extensive review review of the medical and therapy history. Therapy Precautions Orthotic Devices: No Weight Bearing Status: WFL General Rehab Precautions: Fall Risk, Back (incision on R lateral chest wall) UE Functioning RUE Assessment RUE Assessment: Exceptions to WFL Reports chronic R RTC tear - Limited to ~50 degrees shoulder flexion, able to actively assist to 90 degrees with LUE. Passive range to ~150 degrees before noting pain. ER/IR WFL 4+/5 biceps and triceps LUE Assessment LUE Assessment: Exceptions to WFL AROM grossly WFL, noted confusion and difficulty motor planning AROM at times in LUE and with finger to nose testing. 4/5 shoulder and elbow strength Vision Vision-Basic Assessment Current Vision: Wears glasses only for reading Patient Visual Report: (denies acute visual changes) Coordination RUE Assessment: X alternate nose to therapist finger: slight difficulty with movement accomplished finger opposition: slight difficulty with movement accomplished LUE Assessment: X alternate nose to therapist finger: moderate difficulty-arrhythmic movements, increased speed decreases performance (Patient with difficulty following commands, reaching out to various targets with ataxia present during increased speed) finger opposition: slight difficulty with movement accomplished Sensation Additional Comments: Denies N/T. Intact sensation to RLE. Perception Inattention/Neglect: Appears intact Initiation: Appears intact Motor Planning: Ataxia, Left Perseveration: Not present Balance Assessment Sitting Balance - Static: Supervision or Touching Assistance, laterally shifted to left, without UE support, with back supported (SBA) Standing Balance - Static: Dependent and/or 2 Person Assist, with bilateral UE support, 30 seconds to 1 minute (Max -> Max x2 with bilateral blocking) Cognition Overall Cognitive Status: Impaired Arousal/Alertness: Delayed responses to stimuli (varies with fatigue throughout session) Orientation Level: Oriented to person, Oriented to situation, Oriented to place, Disoriented to time Executive functioning: Insight, Sequencing, Planning / Organizing Safety Judgment: Decreased awareness of need for safety Problem Solving: Assistance required to identify errors made, Assistance required to generate solutions, Assistance required to implement solutions Attention: Attends to quiet environment Hearing Status: WFL Social Interaction: Lethargic, Flat affect, Cooperative Comments: Spouse reports patient has had a decline in cognition since surgery. Pt with flat affect, reports vocal fatigue midway through session with hoarseness noted. Pt requesting spouse to speak for him. ADL Eating: Assistance Needed: Set-up / clean-up Physical Assistance Level: No physical assistance Skilled Intervention: Setup assist to manage small containers/packages. Oral Hygiene: Reason if not Attempted: Medical concerns (Patient with episode of hypotension by end of session. Unable to complete.) Toileting Hygiene: Assistance Needed: Physical assistance Physical Assistance Level: Total assistance Skilled Intervention: Patient requiring total assist for clothing management in standing/hygiene needs, provided Max A for standing balance with blocing to LEs as second staff completes clothing management needs. Shower/Bathe Self: Assistance Needed: Physical assistance Physical Assistance Level: Total assistance Upper Body Bathing: Partial/Moderate Assistance (Min) Lower Body Bathing: Dependent and/or 2 Person Assist Skilled Intervention: Patient completes shower while seated from standard shower bench, remaining seated for entirety of shower 2* safety concerns. Pt noted to have slight L-lateral lean throughout shower, provided close SBA for safety with seated balance. Pt requiring cues/set-up assist for sequencing task, noted to initiate washing without use of soap. Once set-up with cues, patient able to wash UB region with SBA. Cues to avoid bending during shower in adherence to back precautions, initating edu on use of LH bath sponge to improve ease with task. Min A for thoroughness with washing distal LEs. At this time, patient reporting feelings of hypotension, becoming more lethargic. Max A for rinsing / drying to complete shower. Total assist x2 person for shyann/buttocks bathing in standing post-shower. Upper Body Dressing: Assistance Needed: Physical assistance Physical Assistance Level: 76% or more Skilled Intervention: Patient noted to don overhead shirt by managing over head first, however unable to don remainder of way. Educated pt on compensatory techniques to accommodate R shoulder limitations, re-attempting with provided cues. Pt provided Mod A for threading UEs with Max to manage over head/trunk. Increased fatigue noted by this time with hypotension present. Lower Body Dressing: Assistance Needed: Physical assistance Physical Assistance Level: Total assistance Skilled Intervention: Patient requiring total assist to thread brief/shorts over feet. Upon standing, patient requiring 3-person assist to stand/manage clothing items with bilateral blocking to BLEs provided in standing with Max x2 as third staff member manages clothing items. Putting On/Taking Off Footwear: Assistance Needed: Physical assistance Physical Assistance Level: Total assistance Skilled Intervention: Total assist to don/doff socks. Cues to avoid bending in adherence to back precautions. Initiated AE edu to doff socks with use of handkerchief sample clerk, providing Min A for placement of handkerchief sample clerk with Min to assist with pushing from RLE. Min A to doff L sock. Functional Mobility Functional Mobility: (unable) Bed Mobility Skilled Intervention: Patient requiring total assist (x2 person) to manage self back to supine at end of session following hypotensive episode. Assist for trunk and BLE management. Pt with increased lethargy by end of session with patient falling asleep once back to supine. Nurse present to assess at this time. Sit to Lying: Assistance Needed: Physical assistance Physical Assistance Level: Total assistance Functional Transfers Shower Transfers: Dependent and/or 2 Person Assist, Grab bars Book Cleaner: (none) Skilled Intervention: Patient fatigues with functional transfers as session progresses. Initial sit/stand and pivot transfer to toilet completed with Max x2 with blocking to RLE. Increased buckling to R+LLE noted with increased time in standing (static standing with ADLs), initially able to complete with Max x1 for static standing but increasing to Max A x2 to maintain standing balance when fatigued. Max x2 to pivot back to w/c and into shower. By end of session, patient with hypotensive episode and requiring Max x3 to complete stand pivot transfers with blocking to BLEs required. Sit to Stand: Assistance Needed: Physical assistance Physical Assistance Level: Total assistance Rug-it-Jhsho: Assistance Needed: Physical assistance Physical Assistance Level: Total assistance Toilet Transfer: Assistance Needed: Physical assistance, Adaptive equipment Physical Assistance Level: Total assistance Interventions Educated pt on OT POC/goals with understanding verbalized. Pt able to recall having back precautions, recalling BLT and 2/3 precautions. Reviewed precautions with pt and spouse. Initiated AE edu this date, however limited training able to be completed due to onset of symptomatic hypotension during latter portion of session. BP measuring 97/60 when reporting symptomatic lightheadedness during shower. Pt noted to be SOB but unable to obtain SpO2 reading. Pt assisted back to bed with BP measuring 80/53 at that time. SpO2 99% (required pulse oximeter to be placed on toe for accurate reading due to cold fingers). Nurse present with patient at end of session. Home Living Obtained Home Living and PLOF info from: Patient, Patient s family member Unable to obtain Home Living and PLOF info on initial eval: Patient is a questionable historian Lives With: Spouse (Idalia) Type of Home: House Home Layout: One level (laundry on main floor. Does not need to go to basement.) Rails on inside stairs: 2 rails Number of stairs inside home: 16 Steps to enter home: Yes Rails to enter home: 1 rail, L rail going up (+ bilateral grab bars on doorframe) Number of stairs to enter home: 3 Bathroom Shower/Tub: Walk-in shower, Main level (3 threshold to enter) Bathroom Toilet: Raised, Main level Bathroom Equipment: Grab bars in shower, Hand-held showerhead, Shower chair, Bedside commode, Toilet seat capacity analyst (toilet safety frame) Mobility Equipment: Cane, Wheeled walker, Rollator (Spare bed has adjustable features (their specific bed is not adjustable)) ADL Equipment: (none) Additional Objective Details - Home Living: Pt was standing to shower prior to admit. All information verified with spouse who is present during session. Pt with incorrect responses at times with self-report of home setup. 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 Spouse reports every now and then she would make pt use the WW if more unsteady that day. Pt did not ambulate in community (stayed in car when going to store, etc); spouse reports his legs would get tired easily.Spouse does indoor IADLs and patient was doing yardwork/mowing. Pt injured R shoulder ~2 months ago (had started physical therapy) - spouse reporting it was a chronic RTC tear from MRI. Son and DIL live next door and had taken over barn chores. Spouse was handling the finances and meds for patient. Occupational Therapy Goals Problem: Self-care Deficit Goal: OT- STG UB dressing Description: OT - Patient will complete UB dressing with minimal assist through provided cues in order to improve self care function. Outcome: Not Addressed Goal: OT- STG LB dressing Description: OT - Patient will complete LB dressing with maximum assist (x1) in order to improve self care function. Outcome: Not Addressed Goal: OT- LTG grooming Description: OT - Patient will complete grooming tasks from w/c level with modified independence and/or with contact guard assist in standing in order to improve self care function. Outcome: Not Addressed Goal: OT- LTG UB dressing Description: OT - Patient will complete UB dressing with set-up assist in order to improve self care function. Outcome: Not Addressed Goal: OT- LTG LB dressing Description: OT - Patient will complete LB dressing with contact guard assist / footwear management with stand by assist through use of AE with adherence to back precautions in order to improve self care function. Outcome: Not Addressed Goal: OT- LTG LB bathing Description: OT - Patient will complete UB/LB bathing with stand by assist from seated position with use of AE in order to improve self care function. Outcome: Not Addressed Goal: OT- LTG toileting Description: OT - Patient will complete toileting with minimal assist in order to improve self care function. Outcome: Not Addressed Goal: OT- LTG precautions Description: OT - Patient will demonstrate back precaution management with independence in order to improve safe and appropriate ADL/IADL management. Outcome: Not Addressed Goal: OT- LTG Self-Care Other Description: OT- Patient will participate in family/caregiver training as needed to enhance a safe return to home environment by time of discharge, including education on ADLs, functional transfers, precautions, fall prevention, HEP, and any adaptive equipment needs. Outcome: Not Addressed Problem: Mobility - Impaired Goal: OT- STG toilet transfer Description: OT - Patient will complete toilet transfer with maximum assist (x1) with use of AD in preparation for ADL's. Outcome: Not Addressed Goal: OT- LTG toilet transfer Description: OT - Patient will complete toilet transfer with contact guard assist and use of AD in preparation for ADL's. Outcome: Not Addressed Goal: OT- LTG navigation Description: OT - Patient will navigate environment within short household distances with minimal assist and use of AD during simple item retrieval tasks in anticipation for safe return to home/community. Outcome: Not Addressed Problem: Impaired Strength Goal: OT- LTG Strength Other Description: OT- Patient will tolerate 15 mins of BUE strengthening exercises (WITHIN PRECAUTIONS) in order to improve necessary strength for functional mobility and self care tasks with patient able to complete exercises with no more than min cues by time of discharge. Outcome: Not Addressed Problem: Impaired Neurologic Function Goal: OT- STG static standing balance Description: OT - Patient will complete static standing balance activity with moderate assist during unilateral engagement in tabletop tasks for durations up to 2-3 mins with no more than min blocking required to BLEs in preparation for ADL's. Outcome: Not Addressed Goal: OT- STG Neuro Function Other Description: OT- Patient will participate in formal assessment of bilateral gross/ fine motor coordination and gross grasp/pinch strengths to assist with treatment planning with further goals to follow as needed. Outcome: Not Addressed Goal: OT- LTG dynamic sitting balance Description: OT - Patient will complete dynamic sitting balance activity with modified independence during extended reaching tasks outside MARK while on unsupported surfaces in preparation for ADL's. Outcome: Not Addressed Goal: OT- LTG static standing balance Description: OT - Patient will complete static standing balance activity with contact guard assist during unilateral task engagement at tabletop level for durations >5 mins with no need for blocking to BLEs in preparation for ADL's. Outcome: Not Addressed Signs and symptoms of abuse / neglect: No - Describe: Justification of Medical Necessity and Intensity of Service: Patient would benefit from skilled Occupational Therapy (OT) services in this inpatient rehabilitation facility with a multidisciplinary team approach to address the above-listed deficits/education needs in order to maximize independence with ADLs (activities of daily living)/IADLs (instrumental activities of daily living) upon discharge home. Patient wants to return home with family assist and has good potential for success in this environment to increase independence, safety, and quality of life after participating in intense OT. Handoff given to primary RN. No past medical history on file. No past surgical history on file. For complete objective data, detailed plan of care and patient education refer to: OT EVALUATION flowsheet, OT TREATMENT flowsheet, patient Plan of Care, Plan of Care progress note, and Patient Education. [1] Patient Active Problem List Diagnosis Status post discectomy Consult Physical Medicine & Rehabilitation [facility] Acute Inpatient Rehabilitation H&P 03/24/2025 Patient Name: Gracie Lemons Date of : 1950 (75 y.o.) Primary Care Physician: Armando Kohli MD Date of Admission: 03/23/2025 Assessment & Plan T7/T8 discectomy 2/2 thoracic spinal stenosis - Continue Ibuprofen prn pain - Do not order Tylenol based on allergy - Flexeril scheduled for muscle spasms - Transferred to IRF 03/23 - Initiate PT/OT for ADLs, transfers and ambulation RLE weakness - Likely 2/2 plexopathy due to positioning during surgery - Continue PT/OT - Consider CT head if other stroke like symptoms occur 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 instability for the last 2 years - Noted masked facies, shuffling gait, tremors - Consider adding Sinemet RAFAEL - Patient uses CPAP at home, family to bring in machine Dementia - Continue Donepezil HTN - Continue Lisinopril, Metoprolol Hyperthyroidism - Continue Levothyroxine GERD - Continue Pantoprazole HLD - Continue Atorvastatin, Zetia 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 DVT prophylaxis - Lovenox Precautions - fall Follow-ups - Neurosurgery Consulted internal medicine to monitor co-morbidities during rehab. Patient requires frequent management by consulting physicians not available in a lower level of care and frequent lab monitoring. On admission, I (inpatient rehabilitation facility physician) completed the medication reconciliation, and no issues were found. Description of Current Medical Status: Medical/Functional Exam: Please see below Rehabilitation Diagnosis: As above Current & Prior Comorbid Conditions: Please see problem list above Current and Prior Level of Function: Please see below Status Compared to Pre-Admission: There are no clinically significant differences between the patient's current medical and functional status as documented in the preadmission screen. Please see current functional status and hospital course/medical management. Treatment Plan: Disciplines Required: Physical Therapy, Occupational Therapy, Speech Therapy, Case Management/Social Work, and Nursing Specialized in Rehabilitation Intensity of Services: At least 3 hours per day, 5 days a week Functional Goals: improve independence with regard to mobility, ADLs, cognition, communication Medical Goals: Medically stable for home discharge Special/Safety Considerations: Fall risk There are no special or safety considerations that would likely preclude immediate implementation of an intensive rehabilitation program (intensity as stated above) or substantially influence plan of care. Risk of Complications: Patient is High Risk For: Falls, Skin breakdown, Dehydration and malnourishment, Atelectasis, Hypotension/hypertension, and DVT/PE Discharge Barriers: Functional deficits and medical stability Patient requires medical monitoring and management of comorbidities and/or hospital complications Patient requires Nursing Specialized in Rehabilitation to Monitor: Neurologic Assessment Psychosocial Considerations: Safe home discharge plan A complete drug regimen review was completed and No potentially clinically significant medication issue(s) were identified. Attestation: Considering all of the information above, it is my best judgment that this patient requires an intensive rehabilitation multidisciplinary program as previously described due to the necessity of medical management, rehabilitation needs, and complexity of nursing care under the supervision of a rehabilitation physician (patient requires at least 3 rehab physician visits per week). It can be reasonably expected that patient will participate in and benefit from a multidisciplinary team approach to maximize functional independence that is best served with acute inpatient rehabilitation as opposed to lower level of care. The teams needed are: Rehabilitation Nursing for medication management, bowel/bladder care, skin care, and respiratory care Physical Therapy for strengthening, endurance, mobility, gait and balance training, ROM, ADL's, and patient/family training Occupational Therapy for strengthening, endurance, mobility, gait and balance training, ROM, ADL's, and patient/family training Speech Therapy for cognition Social Work for integrated social support and discharge planning Estimated Length of Stay: 10-14 days Discharge Destination: home Rehab Prognosis: Good Chief Complaint Back pain History of Present Illness Date of Admission: 03/23/2025 Informant(s): Patient, Care Team / Chart History of Present Illness: Gracie Lemons is a 75 y.o. male s/p right lateral T7/8 discectomy and chest tube placement, status post chest tube removal with post operative RLE weakness. Neurosurgery believes that his RLE weakness is 2/2 to plexopathy, possibly 2/2 to positioning during surgery. The patient has a hx of pulmonary fibrosis which likely complicated by post-op course- the patient had atelectasis and collapse of portions of the RLL which warranted the chest tube. This was removed prior to discharge from the acute care hospital. The patient was evaluated by PT/OT and was deemed to be an appropriate inpatient rehabilitation hospital candidate. The patient was transferred to the IRF on 03/23. The patient was seen in his room this morning. He denies any acute pain, including in his back. He endorses RLE weakness only since the surgery, he had no weakness prior to the surgery. He endorses chronic R rotator cuff problems. He denies any CP or SOB. He had a BM yesterday. He denies any new paresthesias in the LE. Review of Systems General: - fever, - chills HEENT: - headache, - vision changes Resp: - shortness of breath, - cough Cardiac: - chest pain, - leg swelling GI: - constipation, - nausea : - urinary retention, - urinary incontinence MSK: - joint pain, - joint swelling Neuro: - confusion, - weakness Psychological: - depression, - anxiety Skin: - rashes, - wounds Allergies I have reviewed the patient's allergies. Tylenol [acetaminophen] and Penicillins Medications I have reviewed the patient's medication list and performed a complete reconciliation. Home Medications: Prior to Admission medications Not on File Current HOSPITAL Medications: Scheduled Meds: ascorbic acid (vitamin C) 250 mg Oral Daily atorvastatin 20 mg Oral Nightly clopidogreL 75 mg Oral Daily cyclobenzaprine 10 mg Oral TID donepeziL 5 mg Oral Nightly enoxaparin 40 mg Subcutaneous Daily [START ON 03/25/2025] ergocalciferol 50,000 Units Oral Q7 Days ezetimibe 10 mg Oral Nightly ferrous sulfate 325 mg Oral Daily with breakfast gabapentin 300 mg Oral Nightly guaiFENesin 600 mg Oral Q12H lispro insulin 0-15 Units Subcutaneous at bedtime insulin lispro 0-30 Units Subcutaneous TID AC levothyroxine 50 mcg Oral QAM AC lisinopriL 20 mg Oral Daily metoprolol tartrate 50 mg Oral BID multivitamin 1 tablet Oral Daily nortriptyline 25 mg Oral Nightly pantoprazole 40 mg Oral Daily vitamin E 400 Units Oral Daily Continuous Infusions: PRN Meds: Past Medical History No past medical history on file. Past Surgical History No past surgical history on file. Family History No family history on file. Social History Social History: Demographics Is the patient of , /a, or [place]ian origin?: No, not of , /a, or [place]ian origin What is the patient's race?: White Marital Status: Pre Hospital Living Setting: Home Pre-Hospital Lives With: Family/Relatives Pre-Hospital Vocation Category: Retired for Age Support System Family/Caregiver Contact Information Family/Caregiver Contact: Idalia Medina Relationship: spouse Contact Support Support System: Spouse, Children Type of Support Available: 07/01 Patient/Family Rehab Goal: Home Functional History: Functional Assessment Bladder Continence Pre-Hospital Bladder Continence: (presumed continent) Current Bladder Continence: (presumed inconetinent) Device(s) used: condum cath Medication: No Bowel Continence Date of Last BM: 03/22/25 Pre-Hospital Bowel Continence: (presumed continent) Current Bowel Continence: (presumed incontinent) Bowel Medication: Yes Medication Type: Senna, miralax Prior Functioning Everyday Activities Self Care: 2 - Needs Some Help Indoor Mobility (Ambulation): 3 - Independent Stairs: 3 - Independent Functional Cognition: 3 - Independent Prior Device Use Manual W/C: No Motorized W/C or Scooter: No Mechanical Lift: No Walker: Yes Orthotics/Prosthetics: No Functional Issues Balance: siting static CG standing static max Strength: RLE weakness Non-FIM Functional Assessment Eating Pre-Morb: Independent Now: Not Evaluated Goal: Independent Grooming/Hygiene Pre-Morb: Independent Now: Min Assist/Contact Guard Goal: Independent Upper Ext Dressing Pre-Morb: Independent Now: Min Assist/Contact Guard Goal: Independent Lower Ext Dressing Pre-Morb: Independent Now: Total Assist Goal: Independent Bladder Management Pre-Morb: Independent Now: Total Assist Goal: Independent Bowel Management Pre-Morb: Independent Now: Total Assist Goal: Independent Bed Mobility Pre-Morb: Independent Now: Mod Assist Goal: Independent Supine-Sit Pre-Morb: Independent Now: Mod Assist Goal: Independent Sit-Stand Pre-Morb: Independent Now: Max Assist Goal: Independent Transfer Pre-Morb: Independent Now: Max Assist Goal: Independent Toilet Transfer Pre-Morb: Independent Now: Not Evaluated Goal: Independent Ambulation Pre-Morb: Independent Now: Mod Assist (1-2 steps) Goal: Independent Expression Pre-Morb: Independent Now: Independent Goal: Independent Memory Pre-Morb: Independent Now: Independent Goal: Independent Completed Therapy Evaluations Therapy: PT, OT, [employer]IATE Physical Exam BP 107/69 Pulse (!) 109 Temp 97.8 F (36.6 C) (Oral) Resp 14 Ht 5' 5 Wt 79.3 kg (174 lb 13.2 oz) SpO2 95% BMI 29.09 kg/m General: no acute distress, awake, conversant HEENT: EOMI grossly, normal hearing Respiratory: normal respiratory effort, no respiratory distress Cardiovascular: extremities well-perfused, no peripheral edema Abdomen: non-tender, non-distended Musculoskeletal: grossly normal ROM in extremities, no joint swelling, 3/5 R ankle dorsiflexion/plantar flexion, 5/5 L ankle strength, Limited R shoulder flexion 2/2 chronic rotator cuff pathology, 5/5 L shoulder flexion Neuro: alert, speech fluent & comprehensible Psychiatric: pleasant, cooperative, flat affect Skin: normal turgor, no rashes visualized MENTAL STATUS: Alertness, Attention & Concentration: Normal Communication: Normal Orientation: Normal Memory, Recent & Remote: Normal CRANIAL NERVES: II, III: Pupils: PER III, IV, : Eye Movements: Normal (EOMI, No ptosis, No nystagmus) V - Facial Sensation: Normal VII: Face Symmetry & Strength: Normal VIII - Hearing: Normal IX, X - Palate:: Normal XI - Shoulder Shrug: Normal XII - Tongue Protrusion: Normal SENSATION: Light Touch: Normal Laboratory Data I have reviewed the patient's relevant labs. Lab Results Component Value Date ALBUMIN 3.1 (L) 03/24/2025 ALT 25 03/24/2025 AST 33 03/24/2025 BUN 5 (L) 03/24/2025 CALCIUM 9.1 03/24/2025 CL 100 03/24/2025 CREATININE 0.81 03/24/2025 GLUCOSE 161 (H) 03/24/2025 HCT 40.8 (L) 03/24/2025 HGB 13.0 (L) 03/24/2025 MG 1.9 03/24/2025 PLT 555 (H) 03/24/2025 K 4.2 03/24/2025 NA 136 03/24/2025 WBC 10.91 03/24/2025 Diagnostic Studies I have reviewed the patient's relevant imaging. MRI & CT Studies: (last 6 months) MR Cervical Spine With And Without Contrast Final Result by User, System Default (03/22/20251456) IMPRESSION: Significant motion degraded examination. Multilevel degenerative changes in the cervical spine appear overall similar to prior MRI accounting for motion artifact. Mild central canal stenosis C5-C6 and C6-7. No definite signal abnormality within the cervical spinal cord. Lumbar Spine With And Without Contrast Final Result by User, System Default (03/22/20251456) IMPRESSION: Again seen are postoperative changes of posterior fusion hardware from L3-S1 and laminectomy changes from L3 to L5. Degenerative changes appear unchanged from August 2024 examination. No significant central canal stenosis. Severe neural foraminal narrowing bilaterally at L2-L3 and on the left at L5-S1. I personally viewed and interpreted these images and I have reviewed and approved this report. Brain Without Contrast Final Result by User, System Default (03/22/20251456) IMPRESSION: No evidence of acute infarct or mass effect. Remote insult in the right cerebral hemisphere with adjacent craniectomy. Remote right cerebellar infarcts. Chest Thorax With Contrast Final Result by User, System Default (03/22/20251456) IMPRESSION: 1. Small right hydropneumothorax. Complete atelectasis of the right lower lobe and significant partial atelectasis of the right upper and middle lobes do both to compressive atelectasis from the effusion as well as obstructive mucous plugging and postobstructive atelectasis. A right thoracostomy tube is outside the thoracic cavity terminating in the sixth rib osteotomy with a clearly layer of subpleural fat between the tube tip in the pleural effusion. The pneumothorax is loculated anteriorly and likely will not be seen on single view AP radiograph because of its location/positioning. 2. Segmental atelectatic changes in the left lung. 3. Small fluid collection along the right T7-T8 vertebral bodies with internal foci of gas. Small foci of gas are also seen in the adjacent right pleural effusion and thecal canal. Findings are all presumably postoperative given recent surgery on March 11, 2025. I personally viewed and interpreted these images and I have reviewed and approved this report. Thoracic Spine Without Contrast Final Result by User, System Default (03/22/2025 [id number]) IMPRESSION: Interval right lateral T7-T8 discectomy. Previously visible dorsal disc osteophyte is no longer seen with decompression of the spinal canal. No thoracic spinal cord signal abnormality. Cervical Spine Without Contrast Final Result by User, System Default (03/22/2025 [id number]) IMPRESSION: Multilevel degenerative changes with severe left-sided and mild to moderate right-sided neuroforaminal narrowing at C3-C4, moderate to severe right-sided and moderate left-sided neural foraminal narrowing at C4-C5, and moderate right-sided neuroforaminal narrowing at C5-C6 and C6-C7. No high-grade spinal canal stenosis. No focal cervical cord lesions. No suspicious osseous lesions. Devendra Altman M.D. This report has been electronically signed and verified by the Radiologist whose name is printed above. This report contains privileged and confidential information and is intended solely for the use of the individual or entity to which it is addressed. If you are not the intended recipient of this report, you are hereby notified that any copying, distribution, dissemination or action taken in relation to the contents of this report is strictly prohibited and may be unlawful. If you have received this report in error, please notify the sender immediately at [phone] and permanently delete the original report and destroy any copies or printouts. XR [facility] Chest Crossfire - Portable Result Date: 03/18/2025 EXAM: XR CHEST 1 VIEW PORTABLE, 03/18/2025 12:21 PM COMPARISON: XR CHEST 1 VIEW PORTABLE March 18, 2025 CLINICAL INDICATIONS: post chest tube removal FINDINGS: (Adequate technique) Implanted Devices: Interval removal of the right-sided pleural catheter Thorax: Trace right-sided pleural effusion. No pneumothorax. Bandlike opacity in the right mid lung suggestive of atelectasis. Bibasilar atelectasis. Stable right sixth rib deformity. IMPRESSION: No pneumothorax status post pleural catheter removal. Trace right-sided pleural effusion. I personally viewed and interpreted these images and I have reviewed and approved this report. [facility] Chest Crossfire - Portable Result Date: 03/18/2025 EXAM: XR CHEST 1 VIEW PORTABLE, 03/18/2025 09:22 AM COMPARISON: March 17, 2025 CLINICAL INDICATIONS: eval chest tube RELEVANT CLINICAL HISTORY: FINDINGS: (Adequate technique) Implanted Devices: Stable right pigtail pleural drain. Thorax: Suspected small/trace residual right pleural effusion with residual volume loss at the right lung base. No pneumothorax or other acute change compared to the prior exam. IMPRESSION: No significant change from the previous examination Hip Right 2-3 Views (Routine) Result Date: 03/18/2025 EXAM: XR HIP RIGHT 2-3 VIEWS, 03/18/2025 12:20 PM COMPARISON: No prior studies available for comparison. CLINICAL INDICATIONS: hip pain leg weakness RELEVANT CLINICAL HISTORY: FINDINGS: 3 images obtained. Soft Tissue: There is no obvious soft tissue swelling. Extensive vascular calcifications. Bone: No acute osseous abnormality is identified. Partially visualized spinal fusion hardware within the lumbosacral spine. Hip: The hip joint is anatomically aligned. IMPRESSION: No acute osseous abnormality. T TUBE PLACEMENT Result Date: 03/17/2025 EXAM: IR CHEST TUBE PLACEMENT, 03/16/2025 16:39 PM CLINICAL INDICATIONS: 75-year-old male with a right pleural fluid collection, here for drain placement. MEDICATIONS: 4:09 PM 03/16/25 fentaNYL (SUBLIMAZE) injection 0-300 mcg Ordered and Given 25 mcg Given Rate: 0 Route: Intravenous; 4:09 PM 03/16/25 Midazolam (VERSED) injection 0-10 mg Ordered and Given 0.5 mg Given Rate: 0 Route: Intravenous; 4:16 PM 03/16/25 fentaNYL (SUBLIMAZE) injection 0-300 mcg Given 25 mcg Given Rate: 0 Route: Intravenous; 4:16 PM 03/16/25 Midazolam (VERSED) injection 0-10 mg Given 0.5 mg Given Rate: 0 Route: Intravenous; 4:27 PM 03/16/25 Midazolam (VERSED) injection 0-10 mg Given 0.5 mg Given Rate: 0 Route: Intravenous; 4:30 PM 03/16/25 fentaNYL (SUBLIMAZE) injection 0-300 mcg Given 25 mcg Given Rate: 0 Route: Intravenous; OPERATORS: Franci Benoit MD(Attending), Roberto Burton M.D. (Fellow). CONSENT: Following discussion of the risks, benefits and alternatives of the procedure, written informed consent was obtained. SEDATION: I performed Moderate Sedation which included the presence of a nurse that assisted in monitoring the patient's level of consciousness and physiologic status. After administration of sedative medication(s), I spent 28 minutes of continuous [id number] time with the patient. COMPARISON: CT chest March 16, 2025 TIME OUT: Prior to the procedure a time out was performed in the presence of the patient and all personnel involved in this case. The patient identity, procedure type, procedure side/site, and allergies were verified. TECHNIQUE: Position: The patient was transferred to the IR laboratory and positioned left lateral decubitus on the procedure table. The right chest was prepared and draped using maximum sterile barrier technique. This consisted of cap, mask, hand hygiene, sterile gown, sterile gloves, cutaneous antisepsis, and occlusive sterile draping of the field. Time Out: A time out was performed prior to the procedure in the presence of the patient and all personnel involved in the case. The patient's identity, procedure type, procedure side/site, and allergies were verified. Procedure/Findings: Images of the target were saved to the image archive system. Initial sonographic images were obtained demonstrating loculated right-sided fluid collection A 10 cm Bionym centesis needle was advanced using Ultrasound guidance into the collection. Approximately 60 mL of serosanguinous fluid was aspirated from the lesion and sent to the laboratory for culture. A guidewire was then passed through the needle and the tract was dilated over the wire. A 10 Sammarinese M drain was then placed over the wire, and additional images were obtained to confirm positioning of the catheter within the collection. The catheter was sutured to the skin with a single stitch, and connected to a Pleur-evac drain. A total of 100 ml was drained by the time the patient left the department. Post-Procedure: Post-procedure images demonstrate the pigtail of the catheter within the collection. The patient tolerated the procedure well, with no immediate complications. FINDINGS: Loculated right pleural collection with new 10-Sammarinese M drain in place IMPRESSION: Status post ultrasound guided insertion of a 10 Fr right chest tube. PLAN: Initially recommend chest tube to suction, with remainder of care per primary team. Franci Benoit MD was in the room and participated during all dawson portions of this procedure. I personally viewed and interpreted these images and I have reviewed and approved this report. [facility] Chest Crossfire - Portable Result Date: 03/17/2025 EXAM: XR CHEST 1 VIEW PORTABLE, 03/17/2025 06:33 AM COMPARISON: XR CHEST 1 VIEW PORTABLE March 16, 2025 CLINICAL INDICATIONS: s/p chest tube placement RELEVANT CLINICAL HISTORY: FINDINGS: (Adequate technique) Implanted Devices: New right pigtail chest tube terminates overlapping the lateral lower lung. Thorax: Significantly decreased right pleural effusion. Improved bilateral lower lung atelectasis. No pneumothorax. Stable cardiomediastinal silhouette. Right sixth rib partial defect, stable. IMPRESSION: 1. Significantly decreased right pleural effusion with new pigtail chest tube placement. No pneumothorax. 2. Improved bilateral lower lung atelectasis. I personally viewed and interpreted these images and I have reviewed and approved this report. RAL PROCEDURE Result Date: 03/16/2025 Franci Benoit MD 03/17/2025 9:52 AM VASCULAR INTERVENTIONAL RADIOLOGY PROCEDURE NOTE PROCEDURE INDICATION: Gracie Lemons is a 75 year old male who presents with a right pleural collection here for chest tube placement. PROCEDURE PERFORMED: Ultrasound guided right chest tube placement. FINDINGS: Loculated collection in the right pleural here, with new 10Fr M drain. 100ml blood tinged serous fluid aspirated. PLAN: Keep to suction for now, rest of chest tube care per primary team. If needed, recommend thoracic surgery or pulmonology consult for management. Roberto Burton MD 03/16/2025 4:42 PM PHOTOGRAMMETRY AIRPLANE PILOT(S): Dr. Franci Benoit (Attending), Dr. Roberto Burton (Resident) CONSENT: Informed consent was obtained prior to the procedure after discussion of the risks, benefits, and alternatives of the procedure, and expected procedure outcomes were discussed with the patient and/or hr representative. The consent document was placed in chart. DID THIS PROCEDURE REQUIRE A UNIVERSAL PROTOCOL?: Yes. [place] Protocol is required. Preprocedure verification is complete. Patient verified and consents confirmed, procedure sites identified and marked as appropriate, timeout called before the start of the procedure. SPECIMEN(S) REMOVED: 60ml blood tinged serous fluid. DISPOSITION OF SPECIMEN(S): Microbiology and Cytology ESTIMATED BLOOD LOSS: Less than 5 mL COMPLICATIONS: None immediate ADDITIONAL: Please refer to the report generated in the IMAGING section of the electronic medical record for additional procedure details. Thank you for allowing [facility] to participate in this patient's care. XR [facility] Chest Crossfire - Portable Result Date: 03/16/2025 EXAM: XR CHEST 1 VIEW PORTABLE, 03/16/2025 02:27 AM COMPARISON: March 15, 2025 CLINICAL INDICATIONS: Interval eval for R pleural effusion RELEVANT CLINICAL HISTORY: FINDINGS: (Adequate technique) Implanted Devices: None Thorax: Moderate right pleural effusion, increased from prior. Similar patchy atelectasis at the left lung base. IMPRESSION: Increasing size of moderate pleural effusion. OR Abdomen AP Result Date: 03/16/2025 EXAM: XR ABDOMEN 1 VIEW PORTABLE, 03/16/2025 02:27 AM COMPARISON: XR ABDOMEN 1 VIEW PORTABLE March 15, 2025 CLINICAL INDICATIONS: Interval eval FINDINGS/IMPRESSION: Tubes: None. Bowel gas pattern: Persistent gaseous distention of both small and large bowel suggestive of ileus, similar since March 15, 2025. No visible free air. Lumbosacral spinal fusion hardware. OR Abdomen AP Result Date: 03/15/2025 EXAM: XR ABDOMEN 1 VIEW PORTABLE, 03/15/2025 11:45 AM COMPARISON: Comparison study from 03/14/2025 CLINICAL INDICATIONS: Interval eval FINDINGS: Tubes: None. Bowel gas pattern: There is significant gaseous distention and dilation of multiple loops of small and large suggestive of ileus. The transverse colon is dilated up to maximum of 9.1 cm, previously 6.8 cm. Small bowel loops are dilated up to maximum of 4.4 cm, previously 2.9 cm Abnormal calcifications/Radiopacities: 0.9 cm round calcification in the mid abdomen to the right of the lumbar spine at the level of L3-4 which is indeterminate. Punctate sclerotic calcifications are seen with few tiny phleboliths in the pelvis. Bones: Internal fixation hardware in the lower lumbar spine. Degenerative changes of lumbar spine. Other findings: None. IMPRESSION: 1. Progressive gaseous distention and dilation of small and large bowel, suggestive of ileus. 2. No gross free air. I personally viewed and interpreted these images and I have reviewed and approved this report. [facility] Chest Crossfire - Portable Result Date: 03/15/2025 EXAM: XR CHEST 1 VIEW PORTABLE, 03/15/2025 03:09 AM COMPARISON: XR CHEST 1 VIEW PORTABLE March 14, 2025 CLINICAL INDICATIONS: pulmonary edema f/u RELEVANT CLINICAL HISTORY: FINDINGS: (Adequate technique) Mildly decreased size of right pleural effusion. No other change. IMPRESSION: No pulmonary edema. Mildly decreased size of right pleural effusion. Lumbar Spine With And Without Contrast Result Date: 03/15/2025 EXAM: MRI SPINE LUMBAR WITH AND WITHOUT CONTRAST, 03/14/2025 23:25 PM COMPARISON: August 25, 2024 MRI spine, x-ray January 11 2025, multiple additional exams were reviewed CLINICAL INDICATIONS: 75 years Male acute lower ext weakness RELEVANT CLINICAL HISTORY: TECHNIQUE: A series of sagittal and axial multisequence images of the lumbar spine were obtained both before and after intravenous administration of gadolinium-based contrast using standard protocol. Study was performed at 1.5 Gina. CONTRAST: Gadopiclenol SOLN 1-25 mL; Route of Administration: Intravenous; Dose: 8.2 mL. FINDINGS: There is mild to moderate motion artifact on several sequences. Again seen are posterior fusion hardware from L3 to S1 is again noted, with associated laminectomy changes from L3 to L5. Hardware would be better assessed on radiograph/CT. There is a surgical artifact related to the surgical hardware. History report fracture of the right-sided dhruv just above the L5 set screw is not well evaluated on MRI and is better assessed on CT or radiographs. Alignment is unchanged with of L2 over L3 and L4 over L5, and grade 1 anterolisthesis of L3 over L4 and L5 over S1. Leftward curvature of the lumbar spine (scoliosis). No abnormal intrathecal enhancement No acute compression fracture deformity. No focal suspicious osseous lesions in the lumbar spine. Multilevel degenerative disc changes desiccation and variable height loss most pronounced at the L2-L3 level with is severe height loss. Edema in the paraspinal soft tissues is noted. Again seen is focal T2 hyperintense fluid in the laminectomy bed, likely related to chronic postoperative collection. No definite signal abnormality within the conus. The cauda equina appears unremarkable. Atrophy of the bilateral iliopsoas muscles, with interval progression compared to August 25, 2024. Degenerative changes of the sacroiliac joints. [id number] ANALYSIS: T12-L1: Circumferential mild disc bulge, moderate facet arthropathy, and ligamentum flavum infolding. No significant significant spinal canal or foraminal narrowing. L1-L2: Minimal retrolisthesis, left circumferential disc bulge, left lateral recess narrowing. Moderate facet arthropathy and ligamentum flavum changes. No significant central canal stenosis there is moderate right and moderate to severe left neural foraminal narrowing. L2-L3: Disc desiccation with severe height loss. There is severe disc bulge comment dorsal disc osteophyte and advanced facet arthrosis and ligamentum flavum hypertrophy. Fusion hardware at this level. No significant central canal stenosis. Bilateral moderate lateral recess narrowing. Severe bilateral foraminal narrowing. L3-L4: Disc osteophyte complex. Canal decompressed by prior laminectomy. Hardware present. Moderate bilateral foraminal narrowing. L4-L5: Moderate disc bulge with grade 1 anterolisthesis and moderate disc bulge and facet hypertrophic changes. Canal decompressed by laminectomy. Facet arthropathy. Moderate left and mild right foraminal narrowing. L5-S1: Circumferential disc bulge. Canal decompressed by laminectomy. Hardware present. Facet arthropathy. Severe left and moderate right foraminal narrowing. Overall degenerative and postoperative findings are stable compared to August 25, 2024. IMPRESSION: Again seen are postoperative changes of posterior fusion hardware from L3-S1 and laminectomy changes from L3 to L5. Degenerative changes appear unchanged from August 2024 examination. No significant central canal stenosis. Severe neural foraminal narrowing bilaterally at L2-L3 and on the left at L5-S1. I personally viewed and interpreted these images and I have reviewed and approved this report. Cervical Spine With And Without Contrast Result Date: 03/14/2025 EXAM: MRI SPINE CERVICAL WITH AND WITHOUT CONTRAST, 03/14/2025 23:26 PM COMPARISON: MRI SPINE CERVICAL WITHOUT CONTRAST February 11, 2025 CLINICAL INDICATIONS: 75 years Male acute R> left leg weakness RELEVANT CLINICAL HISTORY: TECHNIQUE: A series of sagittal and axial multisequence images of the cervical spine were obtained both before and after intravenous administration of gadolinium-based contrast using standard protocol. Study was performed at 1.5 Gina. CONTRAST: Gadopiclenol SOLN 1-25 mL; Route of Administration: Intravenous; Dose: 8.2 mL. FINDINGS: There is moderate to severe motion artifact on several sequences degrading assessment. There is reversal of cervical lordosis and stepwise grade 1 anterolisthesis of C3 on C6. No definite focal suspicious osseous lesions cervical spine. No evidence of compression fracture deformity. Prevertebral and Cervical soft tissues are grossly unremarkable. Multilevel degenerative disc changes with desiccation and variable height loss. No definite signal abnormality within the cervical spinal cord. No definite abnormal intrathecal enhancement. Craniocervical junction is unremarkable. Degenerative changes of overall similar to prior examination although suboptimally evaluated due to significant motion artifact. By levels: C1-C2: Atlanto-axial relationship is within normal limits. C2-C3: No disc herniation, cervical stenosis, or foraminal stenosis. Bilateral facet arthrosis. C3-C4: Dorsal disc osteophyte complex without significant central canal stenosis. Uncovertebral spurring and facet arthrosis contributes to mild right and severe left neural foraminal narrowing. C4-C5: Dorsal disc osteophyte complex without significant central canal stenosis. Uncovertebral spurring contributes to severe right and moderate left neural foraminal narrowing. C5-C6: Posterior disc aspect complex and posterior ligamentous thickening contributes to mild central canal stenosis. Uncovertebral spurring and facet arthrosis contributes to moderate right and mild left neural foraminal narrowing. C6-C7: Dorsal disc osteophyte complex and posterior ligament thickening contributes to mild central canal stenosis. Uncovertebral spurring with estimated moderate to severe right and moderate left neural foraminal narrowing. C7-T1: No disc herniation, cervical stenosis, or foraminal stenosis. IMPRESSION: Significant motion degraded examination. Multilevel degenerative changes in the cervical spine appear overall similar to prior MRI accounting for motion artifact. Mild central canal stenosis C5-C6 and C6-7. No definite signal abnormality within the cervical spinal cord. Brain Without Contrast Result Date: 03/14/2025 EXAM: MRI BRAIN WITHOUT CONTRAST, 03/14/2025 23:25 PM COMPARISON: MRI Brain W/WO Contrast=H October 28, 2005, MRI Brain W/WO Contrast=H January 17, 2005, MRI Brain W/WO Contrast=H October 10, 2004, CT Head W/O Contrast=H October 29, 2005 CLINICAL INDICATIONS: 75 years Male acute lower ext weakness RELEVANT CLINICAL HISTORY: TECHNIQUE: A series of multisequence, multiplanar images of the brain are obtained without intravenous contrast. Study was performed at 1.5 Gina. FINDINGS: There is mild to moderate motion artifact on several sequences. Evidence of prior right-sided craniectomy. There is encephalomalacia and gliosis in the right frontal and temporal lobes as well as involving the right insula with ex vacuo dilatation of the right lateral ventricle. Remote right cerebellar infarcts. Patchy FLAIR hyperintensities in the periventricular white matter, nonspecific but could relate to chronic small vessel ischemic disease. No acute intracranial hemorrhage. No extracerebral collection. Sellar and parasellar structures are unremarkable. Again noted is a ex vacuo dilatation of the right lateral ventricle. Bilateral cataract surgery implants. Mucosal thickening with air-fluid level in the right maxillary sinus. IMPRESSION: No evidence of acute infarct or mass effect. Remote insult in the right cerebral hemisphere with adjacent craniectomy. Remote right cerebellar infarcts. [facility] Chest Crossfire - Portable Result Date: 03/14/2025 EXAM: XR CHEST 1 VIEW PORTABLE, 03/14/2025 15:41 PM COMPARISON: March 13, 2025 CLINICAL INDICATIONS: post chest tube removal RELEVANT CLINICAL HISTORY: FINDINGS: (Adequate technique) Patient is rotated to the right. Chest tube is removed. Enlarging right effusion. Stable bilateral consolidations. Stable cardiomediastinal silhouette. No interval bone findings. IMPRESSION: Increased right effusion. Known anterior pneumothorax identified on same day chest CT is not seen on radiograph. Stable bilateral consolidative opacities correlating with known predominantly atelectatic changes throughout the lungs. OR Abdomen AP Result Date: 03/14/2025 EXAM: XR ABDOMEN 1 VIEW PORTABLE, 03/14/2025 15:41 PM COMPARISON: No prior studies available for comparison. CLINICAL INDICATIONS: ileus/obstruction evaluation FINDINGS: Tubes: None. There is significant gaseous distention and dilatation of multiple small and large bowel loops in the abdomen and pelvis. Pattern is suggestive of ileus. No obvious evidence of free air. Moderate right colonic fecal burden. Spinal fixation hardware at the lower lumbar spine. IMPRESSION: Diffuse small bowel and colonic dilatation, suggestive of ileus. Chest Thorax With Contrast Result Date: 03/14/2025 EXAM: CT CHEST WITH CONTRAST, 03/13/2025 22:35 PM COMPARISON: CT Pulmonary Angiogram=C July 17, 2012, XR CHEST 1 VIEW PORTABLE March 13, 2025 CLINICAL INDICATIONS: post-op evaluation TECHNIQUE: CT images of the chest were obtained following administration of intravenous contrast. CONTRAST: iohexol (OMNIPAQUE) 350 MG/ML injection 1-171 mL; Route of Administration: Intravenous; Dose: 50 mL. FINDINGS: Lungs and Pleura: The right lower lobe is completely atelectatic with partial atelectasis of the right upper and middle lobes, secondary to mucous plugging and postobstructive atelectasis as well as compressive atelectasis from the small adjacent effusion. Few small foci of gas in the medial right pleural effusion are presumably postoperative given the retropleural approach for the discectomy. Small anterior pneumothorax. The small right thoracostomy tube enters the posterior lateral right sixth rib ostomy. The tip appears extrapleural, terminating in the intra-rib space with subpleural fat between the tip of the chest tube in the pleural effusion, series 2 image 31. Partial atelectasis in the lingula and left lower lobe. Tracheobronchial tree: Exam is partially performed during expiration. There is excessive collapse of the tracheobronchial tree with narrowing of the distal trachea to 4 mm in AP diameter. For comparison, during inspiration the upper trachea measures 12.7 mm in AP diameter. There is also excessive narrowing of the proximal bronchi. Secretions in the distal trachea and areas of mucous plugging in the right lower lobe bronchi. Mediastinum/Alexus: No mediastinal or hilar lymphadenopathy. Axilla and Supraclavicular Region: No axillary or supraclavicular adenopathy. Cardiovascular: The cardiac chambers and pericardium are within normal limits. Multivessel coronary artery calcifications. Few scattered aortic calcifications. Bovine arch, an anatomic variant. Upper Abdomen: Hepatic steatosis. The upper abdominal contents are otherwise unremarkable. Bones and Soft Tissue: No suspicious osseous lesion. Postsurgical changes to the lateral right aspect of the T7 and T8 vertebral bodies secondary to discectomy and partial corpectomy. Small fluid and gas collection in the space with additional foci of gas the thecal canal, presumably postoperative given surgical date of March 11, 2025. IMPRESSION: 1. Small right hydropneumothorax. Complete atelectasis of the right lower lobe and significant partial atelectasis of the right upper and middle lobes do both to compressive atelectasis from the effusion as well as obstructive mucous plugging and postobstructive atelectasis. A right thoracostomy tube is outside the thoracic cavity terminating in the sixth rib osteotomy with a clearly layer of subpleural fat between the tube tip in the pleural effusion. The pneumothorax is loculated anteriorly and likely will not be seen on single view AP radiograph because of its location/positioning. 2. Segmental atelectatic changes in the left lung. 3. Small fluid collection along the right T7-T8 vertebral bodies with internal foci of gas. Small foci of gas are also seen in the adjacent right pleural effusion and thecal canal. Findings are all presumably postoperative given recent surgery on March 11, 2025. I personally viewed and interpreted these images and I have reviewed and approved this report. Thoracic Spine Without Contrast Result Date: 03/13/2025 EXAM: MRI SPINE THORACIC WITHOUT CONTRAST, 03/13/2025 22:09 PM COMPARISON: MRI SPINE THORACIC WITHOUT CONTRAST February 11, 2025 CLINICAL INDICATIONS: 75 years Male postop weakness RELEVANT CLINICAL HISTORY: TECHNIQUE: A series of sagittal and axial multisequence images of the thoracic spine were obtained without intravenous contrast using standard protocol. Study was performed at 1.5 Gina. FINDINGS: There is motion artifact on several sequences most pronounced on the axial T1 and T2 images. Interval postoperative changes related to right lateral T7-T8 discectomy. There is T2 hyperintensity along the right T7-T8 vertebral bodies. Postoperative fluid in the adjacent right paraspinal region There is a right pleural effusion with adjacent atelectasis. Previously visualized disc osteophyte at the T7-T8 is no longer seen with decompression of the spinal canal. Persistent indentation on the anterior aspect of the thecal sac. Alignment is normal. Remaining vertebral body heights are unremarkable. No evidence of acute compression fracture deformity. Mild degenerative disc changes. There is a disc osteophyte T6-T7 and contributes to moderate central canal stenosis. No definite T2 hyperintense abnormality within the thoracic spinal cord. IMPRESSION: Interval right lateral T7-T8 discectomy. Previously visible dorsal disc osteophyte is no longer seen with decompression of the spinal canal. No thoracic spinal cord signal abnormality. [facility] Chest Crossfire - Portable Result Date: 03/13/2025 EXAM: XR CHEST 1 VIEW PORTABLE, 03/13/2025 11:20 AM COMPARISON: March 11, 2025 CLINICAL INDICATIONS: new coughing, chest tube RELEVANT CLINICAL HISTORY: FINDINGS: (Adequate technique) Right thoracostomy tube is difficult to see. It is placed low lung the lateral right thorax and terminates in the right midlung. Increased small right effusion. Increased bilateral atelectasis. No pneumothorax. Stable cardiomediastinal silhouette. No interval bone findings. IMPRESSION: Right thoracostomy tube is difficult to see. No pneumothorax. Increased small right effusion and atelectasis. [facility] Chest Crossfire - Portable Result Date: 03/11/2025 EXAM: XR CHEST 1 VIEW PORTABLE, 03/11/2025 19:20 PM COMPARISON: July 17, 2012. CLINICAL INDICATIONS: postop, chest tube placement, evaluate for hemo/pneumothorax RELEVANT CLINICAL HISTORY: FINDINGS: (Adequate technique) Implanted Devices: None Thorax: Bibasilar atelectatic foci. The mid and upper lung zones are otherwise clear. No pleural effusions. No pneumothorax. The cardiomediastinal silhouette is within normal limits. IMPRESSION: 1. Bibasilar atelectatic foci. 2. The lungs are otherwise clear. *INTUBATION Result Date: 03/11/2025 CHICA Salcedo 03/11/2025 3:01 PM *INTUBATION Date/Time: 03/11/2025 2:01 PM Authorized by: Lucy No MD Performed by: CHICA Salcedo GENERAL STAFF INFORMATION: Patient location during procedure: OR Room: [facility] No anticipated increased risk of difficult airway INDICATIONS AND PATIENT CONDITION: Sedation level: general anesthesia Patient position: supine Preoxygenated: yes Preoxygenation method: bag mask Mask difficulty assessment: 2 - moderate Indication(s) for intubation: general anesthesia FINAL AIRWAY DETAILS: Final airway type: endotracheal airway Final airway difficulty assessment: airway not difficult Successful airway: standard ETT size: 7.0 mm Surgical Airway Tube Type: endotracheal tubeCuffed: yes Endotracheal tube insertion site: oral Successful intubation technique: video laryngoscopy Video Laryngoscope: Parra Blade size: #3 Facilitating devices/methods: intubating stylet Cormack-Lehane Classification: grade I - full view of glottis Placement verified by: auscultation, CO2 detection and visualization through the cords Tube secured: 22 CM at the teeth Tube Secured with: tape Number of attempts at approach: 2 Ventilation between attempts: spontaneous Number of other approaches attempted: 1 Airway placement result: atraumatic intubation Successful Placement?: Yes OTHER ATTEMPTS: Unsuccessful attempted airways: endotracheal tube Unsuccessful attempted endotracheal techniques: video laryngoscopy Medication administered at: 03/11/2025 2:01 PM Signed: Rogelio Espinosa MD Physical Medicine & Rehabilitation Inpatient Rehab Physical Therapy - Evaluation and Treatment Note PT Time Calculation Start Time: 914 Stop Time: 1014 Time Calculation (min): 60 min PT Individual Therapy Min: 60 One unit of therapeutic activity billed for education provided throughout session on the benefits/expectations of PT, necessary safety precautions and considerations, importance of mobility and upright activity in recovery and prevention of secondary impairment, expectations and course of progression during IPR stay, as well as proper technique and performance of all functional transfers as completed in session following assessment. Problem List / Diagnosis Problem List[1] Physical Therapy Assessment History: The following factors influence the patient's participation in the PT plan of care: Personal Factors: Limited Baseline Mobility, Decreased Insight, Age, Social Barriers Environmental Factors: Steps to enter home The following co-morbidities (from this admission or prior) influence the patient's participation in this plan of care: see H&P T7/T8 discectomy 2/2 thoracic spinal stenosis RLE weakness Parkinsonian features RAFAEL Dementia HTN Hyperthyroidism GERD HLD Sacrococcyx contact irritant dermatitis Hx meningioma resection Number of History elements affecting this patient's PT plan of care: 3 or more Examination of Body Systems: The patient presents with: Musculoskeletal impairments: Strength, Pain, Functional Endurance Neurologic Impairments: Coordination, Balance, Pain, Vision Cardiopulmonary Impairments: Activity Tolerance Integumentary Impairments: Skin Integrity Other Impairments: Psychological Health These impairments result in limitations of Gait, Functional Transfers, Stair-Climbing, Safety, Safety Awareness, Wheelchair Mobility, Activity Tolerance, Insight. These impairments result in restrictions of Household mobility, Community mobility, Leisure activities. Number of Body Systems elements affecting this patient's PT plan of care: 3 or more. Clinical Presentation: The patient's clinical presentation for this PT evaluation is with unstable and unpredictable characteristics as evidenced by current PT documentation. Therapy Precautions Orthotic Devices: No Weight Bearing Status: WFL General Rehab Precautions: Fall Risk, Back Vision Current Vision: Wears glasses only for reading Strength Assessment Strength RLE R Hip Flexion: 3/5 R Knee Flexion: 3/5 R Knee Extension: 3/5 R Ankle Dorsiflexion: 3/5 R Ankle Plantar Flexion: 4/5 Strength LLE L Hip Flexion: 3+/5 L Knee Flexion: 4/5 L Knee Extension: 4/5 L Ankle Dorsiflexion: 3+/5 L Ankle Plantar Flexion: 4+/5 Coordination RLE Assessment: X supine heel on luna: unable to accomplish movement JAQUELINE (Rapid Alternating Movement)-reciprocal toe tapping on floor: moderate difficulty-arrhythmic movements, increased speed decreases performance LLE Assessment: X supine heel on luna: severe difficulty-significant unsteadiness, extraneous movements noted JAQUELINE (Rapid Alternating Movement)-reciprocal toe tapping on floor: moderate difficulty-arrhythmic movements, increased speed decreases performance Balance Picking Up Object: Reason if not Attempted: Safety concerns Sitting Balance - Static: Supervision or Touching Assistance (SBA/CGA sitting EOB) Loss of Balance - Sitting Static: intermittent Sitting Balance - Dynamic: Supervision or Touching Assistance (CGA sitting EOB) Loss of Balance - Sitting Dynamic: intermittent Standing Balance - Static: Dependent and/or 2 Person Assist (Mod Ax2) Book Cleaner - Standing Static: wheeled walker Loss of Balance- Standing Static: anterior Standing Balance - Dynamic: Dependent and/or 2 Person Assist (Mod to Max Ax2) Book Cleaner - Standing Dynamic: wheeled walker Loss of Balance- Standing Dynamic: multidirectional Skilled Intervention: Pt unable to safely pick pack worker 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 Bed Mobility Roll Left and Right: Assistance Needed: Physical assistance, Adaptive equipment (Mod Ax1) Physical Assistance Level: 26%-50% Lying to Sitting: Assistance Needed: Physical assistance, Adaptive equipment (Max Ax1) Physical Assistance Level: 51%-75% Sit to Lying: Assistance Needed: Physical assistance, Adaptive equipment (Max Ax1) Physical Assistance Level: 51%-75% Transfers Sit to Stand: Assistance Needed: Physical assistance, Adaptive equipment (Max Ax2 with FWW) Physical Assistance Level: Total assistance [id number]: Assistance Needed: Physical assistance, Adaptive equipment (Max Ax2 with FWW) Physical Assistance Level: Total assistance Book Cleaner: wheeled walker, stand assist device (non-powered) Skilled Intervention: Pt completes initial trial of functional transfers with use of FWW needing consistent Max Ax2 for initiation of standing and maintenance of upright/midline posturing. Pt also dependently transfers via use of Sera Steady with pt demonstrating good perormance and stability with device. Toilet Transfer: Assistance Needed: Physical assistance, Adaptive equipment (Max Ax2) Physical Assistance Level: Total assistance Car Transfer: Reason if not Attempted: Safety concerns Book Cleaner: stand assist device (non-powered) (Sera Steady) Gait/Locomotion Walk 10 Feet: Reason if not Attempted: Safety concerns Walk 50 Feet 2 Turns: Reason if not Attempted: Safety concerns Walk 150 Feet: Reason if not Attempted: Safety concerns Walk 10 Feet Uneven: Reason if not Attempted: Safety concerns Assistive Device: wheeled walker Distance: 2 Feet (over even surface) Pattern: step to, R impaired heel strike, L impaired heel strike, R decreased step length, L decreased step length, over reliance on upper extremities, forward flexed, decreased trunk rotation, shuffle, decreased zenon (steps per minute) Gait Loss(es) of Balance: multidirectional Environment/Terrain: open/community environment, multiple distractions Skilled Intervention: Pt ambulates very limited distances over even surface needing Max Ax2 and third person close w/c follow for safety. Pt demos bilat knee instability. Curb Step 1 Step (Curb): Reason if not Attempted: Safety concerns Stair Management 4 Steps: Reason if not Attempted: Safety concerns 12 Steps: Reason if not Attempted: Safety concerns Wheelchair Mobility Wheel 50 Feet 2 Turns: Type of Wheelchair/Scooter: Manual Assistance Needed: Supervision, Adaptive equipment (SBA) Physical Assistance Level: No physical assistance Wheel 150 Feet: Type of Wheelchair/Scooter: Manual Assistance Needed: Physical assistance Physical Assistance Level: Total assistance Wheelchair Mobility Wheelchair distance: 55 Feet Wheelchair Environment/Terrain: open/community environment, multiple distractions Skilled Intervention: Pt able to propel self with use of bilat UEs needing consistent SBA for safety and guidance. Needing increased time and effort. Home Living Obtained Home Living and PLOF info from: Patient, Patient s family member Unable to obtain Home Living and PLOF info on initial eval: Patient is a questionable historian Lives With: Spouse (Idalia) Type of Home: House Home Layout: One level (laundry on main floor. Does not need to go to basement.) Rails on inside stairs: 2 rails Number of stairs inside home: 16 Steps to enter home: Yes Rails to enter home: 1 rail, L rail going up (+ bilateral grab bars on doorframe) Number of stairs to enter home: 3 Bathroom Shower/Tub: Walk-in shower, Main level (3 threshold to enter) Bathroom Toilet: Raised, Main level Bathroom Equipment: Grab bars in shower, Hand-held showerhead, Shower chair, Bedside commode, Toilet seat capacity analyst (toilet safety frame) Mobility Equipment: Cane, Wheeled walker, Rollator (Spare bed has adjustable features (their specific bed is not adjustable)) ADL Equipment: (none) Additional Objective Details - Home Living: Pt was standing to shower prior to admit. All information verified with spouse who is present during session. Pt with incorrect responses at times with self-report of home setup. 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 Pt notes that he has a chronic L foot drop in which he has a L AFO for mobility. He notes that he rarely uses his AFO. Pt notes that following his most recent surgery, he was found to have increased R LE weakness. Pt also explains having a R RTC impairment (chronic). Pt notes that his spouse (Idalia) is also retired and would be available at home 07/01 at discharge. Pt notes that his spouse does have some back issues of her own, but would be able to provide light assistance/care if needed. Pt reports having fallen 12-15 times within the last year he attributes to poor balance. Pt notes that his son and his family live close by and would be able to provide assistance. Physical Therapy Goals Problem: Mobility - Impaired Goal: PT- LTG bed mobility Description: PT - Patient will perform bed mobility with supervision and appropriate AE to improve functional mobility and safety. Outcome: Not Addressed Goal: PT- LTG sit to stand transfer Description: PT - Patient will perform sit to/from stand transfer with minimal assist, moderate assist, approriate device to improve functional mobility and safety. Outcome: Not Addressed Goal: PT- LTG stand-pivot transfer Description: PT - Patient will perform stand-pivot transfer with minimal assist, moderate assist, approriate device to improve functional mobility and safety. Outcome: Not Addressed Goal: PT- LTG car transfer Description: PT - Patient will perform car transfer with minimal assist, moderate assist to improve functional mobility and safety. Outcome: Not Addressed Goal: PT- LTG dynamic balance Description: PT - Patient will perform standing dynamic balance activities with device with minimal assist, moderate assist to improve functional mobility and safety. Outcome: Not Addressed Goal: PT- LTG ambulation Description: PT - Patient will ambulate at least 75+ feet with device with minimal assist, moderate assist to improve functional mobility and safety. Outcome: Not Addressed Goal: PT- LTG stair climbing Description: PT - Patient will ascend and descend 3+ stairs with non-reciprocal technique with 2 rails with minimal assist, moderate assist, 2-person assist to improve functional mobility and safety. Outcome: Not Addressed Goal: PT- LTG wheelchair management Description: PT - Patient will propel and manage wheelchair at least 100+ feet with supervision to improve functional mobility and safety. Outcome: Not Addressed Goal: PT- LTG mobility other Description: PT- Patient and/or caregiver(s) will verbalize and demonstrate adequate understanding of appropriate HEP to improve functional strength and perform program with IND. Outcome: Not Addressed Signs and symptoms of abuse / neglect: No Describe: Justification of medical necessity and intensity of service: Patient will need Physical Therapy (PT) to increase strength and endurance to safely complete transfers and ambulate longer distances. Patient also lacks sufficient balance to carry out ADLs and mobility and to be safe with ambulation and transfers to be able to return to their prior level of function. Patient has decreased sitting and standing balance, which puts patient at a high fall risk. Patient is somewhat impulsive at times putting patient at higher fall risk and needs cues for safety. PT will also work on core strengthening to assist with trunk support and overall activity tolerance. Patient is limited by weakness of bilateral lower extremities that interferes with independence with bed mobility, transfers, gait, and overall daily tasks. Patient is being seen for deficits due to s/p discectomy. Staff will also be monitoring vital signs and skin integrity risks due to decreased mobility. Patient will need to be able to increase their activity tolerance and mobility to return to their prior level of function. Patient is expected to need at least three hours per day, at least five days a week of physical and occupational therapy and will be seen by social service for discharge planning and coordination of family meetings and by recreational therapy for leisure needs and to increase endurance. Patient has decreased strength, balance, decreased transfers, and decreased gait abilities. They lack safety awareness into their deficits. Status is unstable with unpredictable characteristics requiring a high complexity PT eval. Handoff given to primary RN. No past medical history on file. No past surgical history on file. For complete objective data, detailed plan of care and patient education refer to: PT EVALUATION flowsheet, PT TREATMENT flowsheet, patient Plan of Care, Plan of Care progress note, and Patient Education. [1] Patient Active Problem List Diagnosis Status post discectomy documented in this encounter [facility] 03-31-2025 Plan of care note Plan of care reviewed and interventions continued. Patient plans to return to home at discharge with spouse if possible. Problem: Actual or potential alteration in health Goal: Absence of healthcare acquired conditions Outcome: Partially Met Goal: Knowledge of Interdisciplinary Plan of Care Outcome: Partially Met Goal: Knowledge of Enviroment Outcome: Partially Met Problem: Pressure Injury, Risk of Goal: Absence of pressure injury Outcome: Partially Met Problem: Falls, Risk of Goal: Absence of falls Outcome: Partially Met Goal: Absence of physical injury Outcome: Partially Met Problem: Pain Goal: Reduced pain sensation Outcome: Partially Met Goal: Control of acute pain to acceptable level Outcome: Partially Met Goal: Able to cope with pain Outcome: Partially Met Goal: Able to achieve maximum level of physical functioning Outcome: Partially Met Goal: Able to achieve maximum level of psychosocial functioning Outcome: Partially Met [facility] 03-31-2025 Note PM&R Progress note ASSESSMENT/PLAN: A: Gracie Lemons continues to demonstrate impairments and medical need appropriate for comprehensive acute inpt rehab T7/T8 discectomy 2/2 thoracic spinal stenosis - Continue Ibuprofen prn pain - Do not order Tylenol based on allergy - Flexeril scheduled for muscle spasms- made prn 03/29 due to increased fatigue - Transferred to IRF 03/23 - Initiate PT/OT for ADLs, transfers and ambulation RLE weakness - Likely 2/2 plexopathy due to positioning during surgery - Continue PT/OT - Consider CT head if other stroke like symptoms occur 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 instability for the last 2 years - Noted masked facies, shuffling gait, tremors, bradykinesia - Low dose Sinemet ordered 03/25 - Increased Sinemet to 1 tab at lunch and 0.5 tabs with breakfast and dinner- can continue to increase as needed RAFAEL - Patient uses CPAP at home, family to bring in machine Dementia - Continue Donepezil HTN - Continue Lisinopril, Metoprolol - Blood pressure parameters put in place for hypotension - Lisinopril decreased 03/26 for hypotension - Lisinopril decreased 03/29 for hypotension Hyperthyroidism - Continue Levothyroxine GERD - Continue Pantoprazole HLD - Continue Atorvastatin, Zetia 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 He reports continued diarrhea overnight, though denies any abdominal pain or nausea. He endorses a headache. He denies any CP or SOB. Review of systems: No cp, SOA, n/v/d. Temp: [97.6 degrees F (36.4 degrees C)-98.5 degrees F (36.9 degrees C)] 98.5 degrees F (36.9 degrees C) Heart Rate: [88-96] 96 Resp: [16-17] 16 BP: (96-125)/(59-78) 112/78 Physical Exam: General Appearance: In no apparent distress, well nourished HEENT: Normocephalic, atraumatic, neck supple, EOMI, PER Respiratory: On room air, no respiratory distress Cardiovascular: Peripheral pulses palpable, no edema Abdomen: Nontender, nondistended Musculoskeletal: No acute injury or gross deformity, 5/5 b/l shoulder flexion strength Skin: No rashes visualized, normal paplaption of skin and soft tissues Psychiatric: Normal mood and affect, appropriate insight and judgement Therapy Assessments: Assessments per PT, OT, ST documentation (last filed value): Home Living Type of Home: House (03/24/251028) Home Layout: One level (laundry on main floor. Does not need to go to basement.) (03/24/25 102) Bathroom Shower/Tub: Walk-in shower, Main level (3 threshold to enter) (03/24/25 102) Bathroom Toilet: Raised, Main level (03/24/251028) Bathroom Equipment: Grab bars in shower, Hand-held showerhead, Shower chair, Bedside commode, Toilet seat capacity analyst (toilet safety frame) (03/24/25 102) Bathroom Accessibility: (not recorded) Mobility Equipment: Cane, Wheeled walker, Rollator (Spare bed has adjustable features (their specific bed is not adjustable)) (03/24/25 102) Additional Objective Details - Home Living: Pt was standing to shower prior to admit. All information verified with spouse who is present during session. Pt with incorrect responses at times with self-report of home setup. 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 Spouse reports every now and then she would make pt use the WW if more unsteady that day. Pt did not ambulate in community (stayed in car when going to store, etc); spouse reports his legs would get tired easily.Spouse does indoor IADLs and patient was doing yardwork/mowing. Pt injured R shoulder ~2 months ago (had started physical therapy) - spouse reporting it was a chronic RTC tear from MRI. Son and DIL live next door and had taken over barn chores. Spouse was handling the finances and meds for patient. (03/24/25 1029) Current Level of Function Balance: Sitting Balance - Static: Supervision or Touching Assistance (SBA) (03/27/25729) Sitting Balance - Dynamic: Supervision or Touching Assistance (CGA) (03/27/25729) Standing Balance - Static: Partial/Moderate Assistance (min assist) (03/27/25729) Standing Balance - Dynamic: Part (more content not included)... [facility] 03-31-2025 Plan of care note [facility] Nurse Notes Problem: Actual or potential alteration in health Goal: Absence of healthcare acquired conditions Outcome: Partially Met Goal: Knowledge of Interdisciplinary Plan of Care Outcome: Partially Met Goal: Knowledge of Enviroment Outcome: Partially Met Problem: Pressure Injury, Risk of Goal: Absence of pressure injury Outcome: Partially Met Problem: Falls, Risk of Goal: Absence of falls Outcome: Partially Met Goal: Absence of physical injury Outcome: Partially Met Problem: Pain Goal: Reduced pain sensation Outcome: Partially Met Goal: Control of acute pain to acceptable level Outcome: Partially Met Goal: Able to cope with pain Outcome: Partially Met Goal: Able to achieve maximum level of physical functioning Outcome: Partially Met Goal: Able to achieve maximum level of psychosocial functioning Outcome: Partially Met [facility] 03-30-2025 Plan of care note Problem: Actual or potential alteration in health Goal: Absence of healthcare acquired conditions Outcome: Partially Met Goal: Knowledge of Interdisciplinary Plan of Care Outcome: Partially Met Goal: Knowledge of Enviroment Outcome: Partially Met Problem: Pressure Injury, Risk of Goal: Absence of pressure injury Outcome: Partially Met Problem: Falls, Risk of Goal: Absence of falls Outcome: Partially Met Goal: Absence of physical injury Outcome: Partially Met Problem: Pain Goal: Reduced pain sensation Outcome: Partially Met Goal: Control of acute pain to acceptable level Outcome: Partially Met Goal: Able to cope with pain Outcome: Partially Met Goal: Able to achieve maximum level of physical functioning Outcome: Partially Met Goal: Able to achieve maximum level of psychosocial functioning Outcome: Partially Met [facility] 03-30-2025 Note HMS PROGRESS NOTE Patient name: Gracie Lemons Date of : 1950 Assessment and plan Gracie Lemons is a 75 y.o. male patient of Armando Kohli MD with history of anemia, BPH, CAD, DM, GERD, HLD, HTN, RAFAEL, and CVA presented to IRF on 03/23/2025 with debility s/p T7-8 discectomy. Debility Impaired Mobility and ADLs Comprehensive Rehab with PT/OT/ST PMR following T7-T8 Discectomy Right Side Weakness Parkinsonian Features T7-8 Discectomy on 03/11 at [employer] with neurosurgery Patient with subsequent Right side weakness Neurology at [employer] believes it to possibly be lumbosacral plexopathy Patient with Parkinsonian features including masked facies, hypophonic speech, cogwheeling rigidity of axial and appendicular muscles, and bradykinesia A referral has been sent to [facility] Continue Flexeril, gabapentin, and nortriptyline Continue low dose Sinemet, may need to up titrate if no response in a week. May titrate up to 1 pill on 04/01/25 Noted that PT is not seeing a shuffling gait in last two treatments Pressure Injury Coccyx, POA Pressure Injury gluteal fold, POA Consult Wound Care - orders placed Fibrotic Lung Disease Continue Mucinex Ordered home OFEV, family brought in it is non-formulary History of CVA CAD HTN HLD Continue atorvastatin, Plavix, Zetia, lisinopril, and metoprolol 50 mg bid Lisinopril decreased to 5 mg daily due to hypotension Type 2 Diabetes HgbA1C 7.7 in June 2024 Diabetic Diet Sliding Scale Insulin Recommend outpatient follow-up Hypothyroidism Will check TSH and reflex T4 TSH 3.92, Free T4 1.5 Continue levothyroxine Cognitive Disorder Continue donepezil GERD Continue Protonix Vitamin D Deficiency Continue Supplementation RAFAEL CPAP ordered, refused overnight 2L/NC while sleeping if refusing CPAP Chronic Anemia Hgb 13.0 Baseline Hgb 03-29 Continue Ferrous Sulfate Overweight BMI 29.09 Encourage Diet and Lifestyle modifications Discharge planning Medically ready for discharge: no Patient and/or family has been notified they are expected to be medically stable for discharge on the following date: 04/07/25 Patient requires continued hospitalization due to: Inpatient Rehab Discussed with the patient and/or family that the following is a potential discharge location, understanding that the final plan will depend on the patient's progress and shared decision-making: Home with home health The following resources have been ordered to assist with discharge barriers: care management, PT, OT Quality measures DVT prophylaxis: lovenox Lei catheter: absent Code status Full Code Subjective Working with therapy in [facility] Objective BP 130/82 Pulse (!) 104 Temp 97.7 degrees F (36.5 degrees C) (Oral) Resp 16 Ht 5' 5 Wt 73.4 kg (161 lb 13.1 oz) SpO2 95% BMI 26.93 kg/m General appearance: alert; chronically ill appearing; in no acute distress HEENT: Head- normocephalic; Eyes- EOMI, sclera anicteric; Throat- mucous membranes moist Cardiovascular: regular rate and rhythm; normal S1, S2; no murmurs, rubs, clicks or gallops; peripheral edema absent Respiratory: lungs clear to auscultation; without wheezes, rales or rhonchi; on room air Abdomen: soft, non-tender, non-distended Neurological: oriented x 3; normal speech; parkinsonian movements, right side weakness Musculoskeletal: no significant deformity, unable to extend right arm all the way Skin: normal coloration Psych: normal mood and affect AUTHENTICATED BY CATHIE LOPEZ, ON 03/30/2025 12:38:29 [facility] 03-30-2025 Note PM&R Progress note ASSESSMENT/PLAN: A: Gracie Lemons continues to demonstrate impairments and medical need appropriate for comprehensive acute inpt rehab T7/T8 discectomy 2/2 thoracic spinal stenosis - Continue Ibuprofen prn pain - Do not order Tylenol based on allergy - Flexeril scheduled for muscle spasms- made prn 03/29 due to increased fatigue - Transferred to IRF 03/23 - Initiate PT/OT for ADLs, transfers and ambulation RLE weakness - Likely 2/2 plexopathy due to positioning during surgery - Continue PT/OT - Consider CT head if other stroke like symptoms occur 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 instability for the last 2 years - Noted masked facies, shuffling gait, tremors, bradykinesia - Low dose Sinemet ordered 03/25 - Increased Sinemet to 1 tab at lunch and 0.5 tabs with breakfast and dinner- can continue to increase as needed RAFAEL - Patient uses CPAP at home, family to bring in machine Dementia - Continue Donepezil HTN - Continue Lisinopril, Metoprolol - Blood pressure parameters put in place for hypotension - Lisinopril decreased 03/26 for hypotension - Lisinopril decreased 03/29 for hypotension Hyperthyroidism - Continue Levothyroxine GERD - Continue Pantoprazole HLD - Continue Atorvastatin, Zetia 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 He reports several episodes of diarrhea yesterday evening. He was tested and was negative for c diff. Per his , the patient's Ofev medication can cause diarrhea. Per therapy, the patient's gate seemed less shuffling today. He denies any side effects from the increased Sinemet. He denies any CP or SOB. Review of systems: No cp, SOA, n/v/d. Temp: [97.7 degrees F (36.5 degrees C)-98.2 degrees F (36.8 degrees C)] 97.7 degrees F (36.5 degrees C) Heart Rate: [83-104] 104 Resp: [16-18] 16 BP: (87-130)/(62-82) 130/82 Physical Exam: General Appearance: In no apparent distress, well nourished HEENT: Normocephalic, atraumatic, neck supple, EOMI, PER Respiratory: On room air, no respiratory distress, no cough noted Cardiovascular: Peripheral pulses palpable, no edema Abdomen: Nontender, nondistended Musculoskeletal: No acute injury or gross deformity Skin: No rashes visualized, normal paplaption of skin and soft tissues Psychiatric: Normal mood and affect, appropriate insight and judgement Therapy Assessments: Assessments per PT, OT, ST documentation (last filed value): Home Living Type of Home: House (03/24/251028) Home Layout: One level (laundry on main floor. Does not need to go to basement.) (03/24/251028) Bathroom Shower/Tub: Walk-in shower, Main level (3 threshold to enter) (03/24/251028) Bathroom Toilet: Raised, Main level (03/24/251028) Bathroom Equipment: Grab bars in shower, Hand-held showerhead, Shower chair, Bedside commode, Toilet seat capacity analyst (toilet safety frame) (03/24/251028) Bathroom Accessibility: (not recorded) Mobility Equipment: Cane, Wheeled walker, Rollator (Spare bed has adjustable features (their specific bed is not adjustable)) (03/24/251028) Additional Objective Details - Home Living: Pt was standing to shower prior to admit. All information verified with spouse who is present during session. Pt with incorrect responses at times with self-report of home setup. 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 Spouse reports every now and then she would make pt use the WW if more unsteady that day. Pt did not ambulate in community (stayed in car when going to store, etc); spouse reports his legs would get tired easily.Spouse does indoor IADLs and patient was doing yardwork/mowing. Pt injured R shoulder ~2 months ago (had started physical therapy) - spouse reporting it was a chronic RTC tear from MRI. Son and DIL live next door and had taken over barn chores. Spouse was handling the finances and meds for patient. (03/24/25 1029) Current Level of Function Balance: Sitting Balance - Static: Supervision or Touching Assistance (SBA) (03/27/25 0730) Sitting Balance - Dynamic: Supervision or Touching (more content not included)... [facility] 03-29-2025 Plan of care note Problem: Actual or potential alteration in health Goal: Absence of healthcare acquired conditions Outcome: Partially Met Goal: Knowledge of Interdisciplinary Plan of Care Outcome: Partially Met Goal: Knowledge of Enviroment Outcome: Partially Met Problem: Pressure Injury, Risk of Goal: Absence of pressure injury Outcome: Partially Met Problem: Falls, Risk of Goal: Absence of falls Outcome: Partially Met Goal: Absence of physical injury Outcome: Partially Met Problem: Pain Goal: Reduced pain sensation Outcome: Partially Met Goal: Control of acute pain to acceptable level Outcome: Partially Met Goal: Able to cope with pain Outcome: Partially Met Goal: Able to achieve maximum level of physical functioning Outcome: Partially Met Goal: Able to achieve maximum level of psychosocial functioning Outcome: Partially Met [facility] 03-29-2025 Plan of care note [facility] Speech Language Pathology Notes Problem: Cognition - Impaired Goal: ST- STG O-Log Description: ST O-Log - Patient will score a 25 or above on two separate administrations of the O-Log. Outcome: Met Goal: ST- [facility] Memory- memory strategies Description: ST Memory - Patient will complete memory tasks with the use of memory strategies with 80% accuracy and minimal cues. Outcome: Partially Met Note: Pt completed immediate and short term recall via recall of 12 pictured items w/use of grouping and repetition strategies w/83% acc w/mod I for immediate recall (and benefited from min A semantic cueing to increase acc to 100%) and 100% acc w/mod I following a 5 min delay w/a distractor. Goal: ST- STG Problem Solving- verbal problem solving Description: ST Problem Solving - Patient will complete basic problem solving, reasoning, safety awareness, and attention tasks with 80% accuracy and min cues. Outcome: Partially Met Note: Pt completed problem solving, reasoning, attention and mental math calculation via time related word problems w/64% acc w/mod I and benefited from min A semantic cueing to increase acc to 100%. Pt completed problem solving, reasoning, attention and safety awareness via problem solving missing equipment task w/100% acc w/mod I. Goal: ST- STG Executive Function- sequencing/organization/planning Description: ST Executive Function - Patient will complete basic sequencing, planning, and organizing tasks with 80% accuracy and min cues. Outcome: Partially Met Note: Pt completed sequencing, reasoning, attention and organizing via sequencing 4 step pictured tasks w/75% acc w/mod I and benefited from min A semantic cueing to increase acc to 100%. Pt completed sequencing, reasoning, attention, planning and safety awareness via transfer from WC to toilet and back to WC via santy steady w/min A verbal cueing for safety precautions and sequencing of steps Goal: ST- LTG Executive Function- sequencing/organization/planning Description: ST Executive Function - Patient will demonstrate improved cognitive linguistic abilities to aid in safe return to independence w/ADLs at DC home Outcome: Partially Met [facility] 03-29-2025 Plan of care note [facility] Physical Therapy Notes Patient continues to make guarded progress to date and is on track to meet or partially meet their established goals. They continue to gain strength and independence in all areas of mobility as evident by performance to date. Limitations/impairments that continue to necessitate the need of skilled physical therapy include: decreased strength of bilateral lower extremities (R greater than R) , deficits of balance/coordination, impaired functional mobility, abnormality of gait, and impaired functional activity tolerance. Family/caregiver training has not been completed to date. To further address the above impairments, the patient will benefit from continued skilled physical therapy with emphasis on therapeutic exercise to address strength and ROM; therapeutic activity to improve dynamic performance of ADLs, transfers, and bed mobility; neuromuscular reeducation to improve coordination, posturing, proprioception, and static/dynamic balance; ambulation/mobility training; stair negotiation; manual therapy to improve joint stiffness and pain relief; as well as modalities as needed for pain relief. Education will also be provided to the patient and family/caregiver(s) on safety, safe use/management of appropriate device, energy conservation, activity modification/pacing, family/caregiver training, and appropriate home exercise program. Continue with PT POC. Problem: Mobility - Impaired Goal: PT- LTG bed mobility Description: PT - Patient will perform bed mobility with supervision and appropriate AE to improve functional mobility and safety. Outcome: Not Met Note: Patient performs rolling, supine to sit, and sit to supine with moderate assist and maximal assist, requiring verbal and tactile cues for safe completion of task and safety. Problem: Mobility - Impaired Goal: PT- LTG sit to stand transfer Description: PT - Patient will perform sit to/from stand transfer with minimal assist, moderate assist, approriate device to improve functional mobility and safety. Outcome: Partially Met Note: Patient performs functional [id number] transfers with use of FWW needing minimal assist and moderate assist. Goal: PT- LTG stand-pivot transfer Description: PT - Patient will perform stand-pivot transfer with minimal assist, moderate assist, approriate device to improve functional mobility and safety. Outcome: Partially Met Note: Patient performs functional stand-pivot transfers with use of FWW needing minimal assist and moderate assist. Goal: PT- LTG car transfer Description: PT - Patient will perform car transfer with minimal assist, moderate assist to improve functional mobility and safety. Outcome: Partially Met Note: Patient performs functional car transfers with use of no device needing moderate assist. Goal: PT- LTG dynamic balance Description: PT - Patient will perform standing dynamic balance activities with device with minimal assist, moderate assist to improve functional mobility and safety. Outcome: Partially Met Note: Patient demonstrates fair standing static and dynamic balance with use of FWW needing minimal assist and moderate assist for stability and safety. Goal: PT- LTG ambulation Description: PT - Patient will ambulate at least 75+ feet with device with minimal assist, moderate assist to improve functional mobility and safety. Outcome: Partially Met Note: Patient able to ambulate 15-18 feet with use of FWW needing moderate assist and second person close w/c follow due to balance deficits, endurance limitations, impairments in gait, and coordination deficits. Goal: PT- LTG wheelchair management Description: PT - Patient will propel and manage wheelchair at least 100+ feet with supervision to improve functional mobility and safety. Outcome: Partially Met Note: Patient is able to propel themself in wheelchair 55 feet needing stand-by assist for safety and guidance. Goal: PT- LTG mobility other Description: PT- Patient and/or caregiver(s) will verbalize and demonstrate adequate understanding of appropriate HEP to improve functional strength and perform program with IND. Outcome: Partially Met Note: Progressing toward goal with seated HEP provided. Problem: Mobility - Impaired Goal: PT- LTG stair climbing Description: PT - Patient will ascend and descend 3+ stairs with non-reciprocal technique with 2 rails with minimal assist, moderate assist, 2-person assist to improve functional mobility and safety. Outcome: Not Addressed Note: Unable to safely attempt to date secondary to safety concerns. Plan to progress as able. [facility] 03-29-2025 Plan of care note IPRU Occupational Therapy Notes Patient has displayed improvements in LB ADL performance and UB dressing. He does continue to require considerable physical assistance to complete functional bathroom transfers and remains inconsistent with his tolerance of sustained standing activities. Patient will continue to benefit from participation in intensive, comprehensive therapy approach in an IPR setting to promote further functional gains. Currently, patient benefiting from mod assist for brief sustained static standing activities lasting up to 1 minute and min assist for static sitting activities due to periods of retropulsive balance. Problem: Self-care Deficit Goal: OT- LTG UB dressing Description: OT - Patient will complete UB dressing with set-up assist in order to improve self care function. Outcome: Not Met Goal: OT- LTG LB dressing Description: OT - Patient will complete LB dressing with contact guard assist / footwear management with stand by assist through use of AE with adherence to back precautions in order to improve self care function. Outcome: Not Met Goal: OT- LTG LB bathing Description: OT - Patient will complete UB/LB bathing with stand by assist from seated position with use of AE in order to improve self care function. Outcome: Not Met Goal: OT- LTG toileting Description: OT - Patient will complete toileting with minimal assist in order to improve self care function. Outcome: Not Met Goal: OT- LTG precautions Description: OT - Patient will demonstrate back precaution management with independence in order to improve safe and appropriate ADL/IADL management. Outcome: Not Met Goal: OT- LTG Self-Care Other Description: OT- Patient will participate in family/caregiver training as needed to enhance a safe return to home environment by time of discharge, including education on ADLs, functional transfers, precautions, fall prevention, HEP, and any adaptive equipment needs. Outcome: Not Met Problem: Mobility - Impaired Goal: OT- STG toilet transfer Description: OT - Patient will complete toilet transfer with maximum assist (x1) with use of AD in preparation for ADL's. Outcome: Not Met Goal: OT- LTG toilet transfer Description: OT - Patient will complete toilet transfer with contact guard assist and use of AD in preparation for ADL's. Outcome: Not Met Goal: OT- LTG navigation Description: OT - Patient will navigate environment within short household distances with minimal assist and use of AD during simple item retrieval tasks in anticipation for safe return to home/community. Outcome: Not Met Problem: Impaired Neurologic Function Goal: OT- LTG dynamic sitting balance Description: OT - Patient will complete dynamic sitting balance activity with modified independence during extended reaching tasks outside MARK while on unsupported surfaces in preparation for ADL's. Outcome: Not Met Goal: OT- LTG static standing balance Description: OT - Patient will complete static standing balance activity with contact guard assist during unilateral task engagement at tabletop level for durations >5 mins with no need for blocking to BLEs in preparation for ADL's. Outcome: Not Met Problem: Self-care Deficit Goal: OT- LTG grooming Description: OT - Patient will complete grooming tasks from w/c level with modified independence and/or with contact guard assist in standing in order to improve self care function. Outcome: Partially Met Note: Benefiting from SBA to complete grooming task from seated position. Problem: Impaired Strength Goal: OT- LTG Strength Other Description: OT- Patient will tolerate 15 mins of BUE strengthening exercises (WITHIN PRECAUTIONS) in order to improve necessary strength for functional mobility and self care tasks with patient able to complete exercises with no more than min cues by time of discharge. Outcome: Partially Met Problem: Impaired Neurologic Function Goal: OT- STG static standing balance Description: OT - Patient will complete static standing balance activity with moderate assist during unilateral engagement in tabletop tasks for durations up to 2-3 mins with no more than min blocking required to BLEs in preparation for ADL's. Outcome: Partially Met Note: Able to tolerate sustained static sitting for 1-3 minutes with min assist for balance. Problem: Self-care Deficit Goal: OT- STG UB dressing Description: OT - Patient will complete UB dressing with minimal assist through provided cues in order to improve self care function. Outcome: Completed Note: Benefiting from min assist to complete UB dressing. Goal: OT- STG LB dressing Description: OT - Patient will complete LB dressing with maximum assist (x1) in order to improve self care function. Outcome: Completed Note: Benefiting from mod assist to complete LB dressing with a handkerchief sample clerk and sock aid. Problem: Impaired Neurologic Function Goal: OT- STG Neuro Function Other Description: OT- Patient will participate in formal assessment of bilateral gross/ fine motor coordination and gross grasp/pinch strengths to assist with treatment planning with further goals to follow as needed. Outcome: Completed [facility] 03-29-2025 Note PM&R Progress note ASSESSMENT/PLAN: A: Gracie Lemons continues to demonstrate impairments and medical need appropriate for comprehensive acute inpt rehab T7/T8 discectomy 2/2 thoracic spinal stenosis - Continue Ibuprofen prn pain - Do not order Tylenol based on allergy - Flexeril scheduled for muscle spasms - Transferred to IRF 03/23 - Initiate PT/OT for ADLs, transfers and ambulation RLE weakness - Likely 2/2 plexopathy due to positioning during surgery - Continue PT/OT - Consider CT head if other stroke like symptoms occur 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 instability for the last 2 years - Noted masked facies, shuffling gait, tremors, bradykinesia - Low dose Sinemet ordered 03/25 - Increased Sinemet to 1 tab at lunch and 0.5 tabs with breakfast and dinner- can continue to increase as needed RAFAEL - Patient uses CPAP at home, family to bring in machine Dementia - Continue Donepezil HTN - Continue Lisinopril, Metoprolol - Blood pressure parameters put in place for hypotension - Lisinopril decreased 03/26 for hypotension Hyperthyroidism - Continue Levothyroxine GERD - Continue Pantoprazole HLD - Continue Atorvastatin, Zetia 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 He reports that he slept well overnight. He denies any CP or SOB. He denies any headaches. His last BM was 2 days ago. He denies any side effects or benefits from the Sinemet started for him yesterday. Review of systems: No cp, SOA, n/v/d. Temp: [97.5 degrees F (36.4 degrees C)-98.4 degrees F (36.9 degrees C)] 97.6 degrees F (36.4 degrees C) Heart Rate: [71-97] 91 Resp: [15-16] 15 BP: (105-118)/(68-71) 114/70 Physical Exam: General Appearance: In no apparent distress, well nourished HEENT: Normocephalic, atraumatic, neck supple, EOMI, PER Respiratory: On room air, no respiratory distress Cardiovascular: Peripheral pulses palpable, no edema Abdomen: Nontender, nondistended Musculoskeletal: No acute injury or gross deformity, 5/5 b/l shoulder flexion strength Skin: No rashes visualized, normal paplaption of skin and soft tissues Psychiatric: Normal mood and affect, appropriate insight and judgement Therapy Assessments: Assessments per PT, OT, ST documentation (last filed value): Home Living Type of Home: House (03/24/25 102) Home Layout: One level (laundry on main floor. Does not need to go to basement.) (03/24/25 102) Bathroom Shower/Tub: Walk-in shower, Main level (3 threshold to enter) (03/24/25 102) Bathroom Toilet: Raised, Main level (03/24/25 102) Bathroom Equipment: Grab bars in shower, Hand-held showerhead, Shower chair, Bedside commode, Toilet seat capacity analyst (toilet safety frame) (03/24/25 102) Bathroom Accessibility: (not recorded) Mobility Equipment: Cane, Wheeled walker, Rollator (Spare bed has adjustable features (their specific bed is not adjustable)) (03/24/25 1029) Additional Objective Details - Home Living: Pt was standing to shower prior to admit. All information verified with spouse who is present during session. Pt with incorrect responses at times with self-report of home setup. 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 Spouse reports every now and then she would make pt use the WW if more unsteady that day. Pt did not ambulate in community (stayed in car when going to store, etc); spouse reports his legs would get tired easily.Spouse does indoor IADLs and patient was doing yardwork/mowing. Pt injured R shoulder ~2 months ago (had started physical therapy) - spouse reporting it was a chronic RTC tear from MRI. Son and DIL live next door and had taken over barn chores. Spouse was handling the finances and meds for patient. (03/24/251028) Current Level of Function Balance: Sitting Balance - Static: Supervision or Touching Assistance (SBA) (03/27/25729) Sitting Balance - Dynamic: Supervision or Touching Assistance (CGA) (03/27/25729) Standing Balance - Static: Partial/Moderate Assistance (min assist) (03/27/25729) Standing Balance - Dynamic: Partial/Moderate Assi (more content not included)... [facility] 03-29-2025 Plan of care note Problem: Actual or potential alteration in health Goal: Absence of healthcare acquired conditions Outcome: Partially Met Goal: Knowledge of Interdisciplinary Plan of Care Outcome: Partially Met Goal: Knowledge of Enviroment Outcome: Partially Met Problem: Pressure Injury, Risk of Goal: Absence of pressure injury Outcome: Partially Met Problem: Falls, Risk of Goal: Absence of falls Outcome: Partially Met Goal: Absence of physical injury Outcome: Partially Met Problem: Pain Goal: Reduced pain sensation Outcome: Partially Met Goal: Control of acute pain to acceptable level Outcome: Partially Met Goal: Able to cope with pain Outcome: Partially Met Goal: Able to achieve maximum level of physical functioning Outcome: Partially Met Goal: Able to achieve maximum level of psychosocial functioning Outcome: Partially Met [facility] 03-28-2025 Note HMS PROGRESS NOTE Patient name: Gracie Lemons Date of : 1950 Assessment and plan Gracie Lemons is a 75 y.o. male patient of Armando Kohli MD with history of anemia, BPH, CAD, DM, GERD, HLD, HTN, RAFAEL, and CVA presented to IRF on 03/23/2025 with debility s/p T7-8 discectomy. Debility Impaired Mobility and ADLs Comprehensive Rehab with PT/OT/ST PMR following T7-T8 Discectomy Right Side Weakness Parkinsonian Features T7-8 Discectomy on 03/11 at [employer] with neurosurgery Patient with subsequent Right side weakness Neurology at [employer] believes it to possibly be lumbosacral plexopathy Patient with Parkinsonian features including masked facies, hypophonic speech, cogwheeling rigidity of axial and appendicular muscles, and bradykinesia A referral has been sent to [facility] Continue Flexeril, gabapentin, and nortriptyline Continue low dose Sinemet, may need to up titrate if no response in a week. May titrate up to 1 pill on 04/01/25 Noted that PT is not seeing a shuffling gait in last two treatments Pressure Injury Coccyx, POA Pressure Injury gluteal fold, POA Consult Wound Care - orders placed Fibrotic Lung Disease Continue Mucinex Ordered home OFEV, family brought in it is non-formulary History of CVA CAD HTN HLD Continue atorvastatin, Plavix, Zetia, lisinopril, and metoprolol Type 2 Diabetes HgbA1C 7.7 in June 2024 Diabetic Diet Sliding Scale Insulin Recommend outpatient follow-up Hypothyroidism Will check TSH and reflex T4 Continue levothyroxine Cognitive Disorder Continue donepezil GERD Continue Protonix Vitamin D Deficiency Continue Supplementation RAFAEL CPAP ordered, refused overnight 2L/NC while sleeping if refusing CPAP Chronic Anemia Hgb 13.0 Baseline Hgb 10-13 Continue Ferrous Sulfate Overweight BMI 29.09 Encourage Diet and Lifestyle modifications Discharge planning Medically ready for discharge: no Patient and/or family has been notified they are expected to be medically stable for discharge on the following date: 04/07/25 Patient requires continued hospitalization due to: Inpatient Rehab Discussed with the patient and/or family that the following is a potential discharge location, understanding that the final plan will depend on the patient's progress and shared decision-making: Home with home health The following resources have been ordered to assist with discharge barriers: care management, PT, OT Quality measures DVT prophylaxis: lovenox Lei catheter: absent Code status Full Code Subjective Patient sitting up in bed eating breakfast. Discussed with patient and if they have noticed any improvement with the Sinemet. They have not at this time. Objective BP 114/66 Pulse 88 Temp 98.9 degrees F (37.2 degrees C) Resp 18 Ht 5' 5 Wt 79.3 kg (174 lb 13.2 oz) SpO2 94% BMI 29.09 kg/m General appearance: alert; chronically ill appearing; in no acute distress HEENT: Head- normocephalic; Eyes- EOMI, sclera anicteric; Throat- mucous membranes moist Cardiovascular: regular rate and rhythm; normal S1, S2; no murmurs, rubs, clicks or gallops; peripheral edema absent Respiratory: lungs clear to auscultation; without wheezes, rales or rhonchi; on room air Abdomen: soft, non-tender, non-distended Neurological: oriented x 3; normal speech; parkinsonian movements, right side weakness Musculoskeletal: no significant deformity, unable to extend right arm all the way Skin: normal coloration Psych: normal mood and affect AUTHENTICATED BY [facility], ON 03/28/2025 09:35:39 [facility] 03-28-2025 Plan of care note IPRU Nurse Notes Problem: Actual or potential alteration in health Goal: Absence of healthcare acquired conditions Outcome: Partially Met Goal: Knowledge of Interdisciplinary Plan of Care Outcome: Partially Met Goal: Knowledge of Enviroment Outcome: Partially Met Problem: Pressure Injury, Risk of Goal: Absence of pressure injury Outcome: Partially Met Problem: Falls, Risk of Goal: Absence of falls Outcome: Partially Met Goal: Absence of physical injury Outcome: Partially Met Problem: Pain Goal: Reduced pain sensation Outcome: Partially Met Goal: Control of acute pain to acceptable level Outcome: Partially Met Goal: Able to cope with pain Outcome: Partially Met Goal: Able to achieve maximum level of physical functioning Outcome: Partially Met Goal: Able to achieve maximum level of psychosocial functioning Outcome: Partially Met [facility] 03-27-2025 Note HMS PROGRESS NOTE Patient name: Gracie Lemons Date of : 1950 Assessment and plan Gracie Lemons is a 75 y.o. male patient of Armando Kohli MD with history of anemia, BPH, CAD, DM, GERD, HLD, HTN, RAFAEL, and CVA presented to IRF on 03/23/2025 with debility s/p T7-8 discectomy. Debility Impaired Mobility and ADLs Comprehensive Rehab with PT/OT/ST PMR following T7-T8 Discectomy Right Side Weakness Parkinsonian Features T7-8 Discectomy on 03/11 at [facility] with neurosurgery Patient with subsequent Right side weakness Neurology at [employer] believes it to possibly be lumbosacral plexopathy Patient with Parkinsonian features including masked facies, hypophonic speech, cogwheeling rigidity of axial and appendicular muscles, and bradykinesia A referral has been sent to [facility] Continue Flexeril, gabapentin, and nortriptyline Continue low dose Sinemet, may need to up titrate if no response in a week Noted that PT is not seeing a shuffling gait in last two treatments Pressure Injury Coccyx, POA Pressure Injury gluteal fold, POA Consult Wound Care Fibrotic Lung Disease Continue Mucinex Ordered home OFEV, family brought in it is non-formulary History of CVA CAD HTN HLD Continue atorvastatin, Plavix, Zetia, lisinopril, and metoprolol Type 2 Diabetes HgbA1C 7.7 in June 2024 Diabetic Diet Sliding Scale Insulin Recommend outpatient follow-up Hypothyroidism Will check TSH and reflex T4 Continue levothyroxine Cognitive Disorder Continue donepezil GERD Continue Protonix Vitamin D Deficiency Continue Supplementation RAFAEL CPAP ordered, refused overnight 2L/NC while sleeping if refusing CPAP Chronic Anemia Hgb 13.0 Baseline Hgb 10-13 Continue Ferrous Sulfate Overweight BMI 29.09 Encourage Diet and Lifestyle modifications Discharge planning Medically ready for discharge: no Patient and/or family has been notified they are expected to be medically stable for discharge on the following date: 04/07/25 Patient requires continued hospitalization due to: Inpatient Rehab Discussed with the patient and/or family that the following is a potential discharge location, understanding that the final plan will depend on the patient's progress and shared decision-making: Home with home health The following resources have been ordered to assist with discharge barriers: care management, PT, OT Quality measures DVT prophylaxis: lovenox Lei catheter: absent Code status Full Code Subjective Patient sitting up in wheelchair, no new complaints. No noticed improvement per patient on Sinemet. Objective BP 135/80 Pulse 98 Temp 97.8 degrees F (36.6 degrees C) (Axillary) Resp 18 Ht 5' 5 Wt 79.3 kg (174 lb 13.2 oz) SpO2 92% BMI 29.09 kg/m General appearance: alert; chronically ill appearing; in no acute distress HEENT: Head- normocephalic; Eyes- EOMI, sclera anicteric; Throat- mucous membranes moist Cardiovascular: regular rate and rhythm; normal S1, S2; no murmurs, rubs, clicks or gallops; peripheral edema absent Respiratory: lungs clear to auscultation; without wheezes, rales or rhonchi; on room air Abdomen: soft, non-tender, non-distended Neurological: oriented x 3; normal speech; parkinsonian movements, right side weakness Musculoskeletal: no significant deformity, unable to extend right arm all the way Skin: normal coloration Psych: normal mood and affect AUTHENTICATED BY [facility], ON 03/27/2025 09:17:44 [facility] 03-26-2025 Plan of care note IPRU Nurse Notes Problem: Falls, Risk of Goal: Absence of falls Outcome: Met Note: No falls this shift continue to use bed alarm or personal alarm for fall prevention will continue to monitor. Goal: Absence of physical injury Outcome: Met Problem: Actual or potential alteration in health Goal: Absence of healthcare acquired conditions Outcome: Partially Met Goal: Knowledge of Interdisciplinary Plan of Care Outcome: Partially Met Goal: Knowledge of Enviroment Outcome: Partially Met Problem: Pressure Injury, Risk of Goal: Absence of pressure injury Outcome: Partially Met Problem: Pain Goal: Reduced pain sensation Outcome: Partially Met Goal: Control of acute pain to acceptable level Outcome: Partially Met Goal: Able to cope with pain Outcome: Partially Met Goal: Able to achieve maximum level of physical functioning Outcome: Partially Met Goal: Able to achieve maximum level of psychosocial functioning Outcome: Partially Met [facility] 03-26-2025 Note PM&R Progress note ASSESSMENT/PLAN: A: Gracie Lemons continues to demonstrate impairments and medical need appropriate for comprehensive acute inpt rehab T7/T8 discectomy 2/2 thoracic spinal stenosis - Continue Ibuprofen prn pain - Do not order Tylenol based on allergy - Flexeril scheduled for muscle spasms - Transferred to IRF 03/23 - Initiate PT/OT for ADLs, transfers and ambulation RLE weakness - Likely 2/2 plexopathy due to positioning during surgery - Continue PT/OT - Consider CT head if other stroke like symptoms occur 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 instability for the last 2 years - Noted masked facies, shuffling gait, tremors - Low dose Sinemet ordered 03/25 RAFAEL - Patient uses CPAP at home, family to bring in machine Dementia - Continue Donepezil HTN - Continue Lisinopril, Metoprolol - Blood pressure parameters put in place for hypotension - Lisinopril decreased 03/26 for hypotension Hyperthyroidism - Continue Levothyroxine GERD - Continue Pantoprazole HLD - Continue Atorvastatin, Zetia 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 He reports that he slept well overnight. He denies any CP or SOB. He denies any headaches. His last BM was 2 days ago. He denies any side effects or benefits from the Sinemet started for him yesterday. Review of systems: No cp, SOA, n/v/d. Temp: [97.9 degrees F (36.6 degrees C)-98.3 degrees F (36.8 degrees C)] 97.9 degrees F (36.6 degrees C) Heart Rate: [95-121] 95 Resp: [14-17] 14 BP: (91-113)/(40-67) 106/61 Physical Exam: General Appearance: In no apparent distress, well nourished HEENT: Normocephalic, atraumatic, neck supple, EOMI, PER Respiratory: On room air, no respiratory distress Cardiovascular: Peripheral pulses palpable, no edema Abdomen: Nontender, nondistended Musculoskeletal: No acute injury or gross deformity Neuro: A&Ox3 Skin: No rashes visualized, normal paplaption of skin and soft tissues Psychiatric: Normal mood and affect, appropriate insight and judgement Therapy Assessments: Assessments per PT, OT, ST documentation (last filed value): Home Living Type of Home: House (03/24/251028) Home Layout: One level (laundry on main floor. Does not need to go to basement.) (03/24/25 102) Bathroom Shower/Tub: Walk-in shower, Main level (3 threshold to enter) (03/24/251028) Bathroom Toilet: Raised, Main level (03/24/25 102) Bathroom Equipment: Grab bars in shower, Hand-held showerhead, Shower chair, Bedside commode, Toilet seat capacity analyst (toilet safety frame) (03/24/25 102) Bathroom Accessibility: (not recorded) Mobility Equipment: Cane, Wheeled walker, Rollator (Spare bed has adjustable features (their specific bed is not adjustable)) (03/24/25 102) Additional Objective Details - Home Living: Pt was standing to shower prior to admit. All information verified with spouse who is present during session. Pt with incorrect responses at times with self-report of home setup. 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 Spouse reports every now and then she would make pt use the WW if more unsteady that day. Pt did not ambulate in community (stayed in car when going to store, etc); spouse reports his legs would get tired easily.Spouse does indoor IADLs and patient was doing yardwork/mowing. Pt injured R shoulder ~2 months ago (had started physical therapy) - spouse reporting it was a chronic RTC tear from MRI. Son and DIL live next door and had taken over barn chores. Spouse was handling the finances and meds for patient. (03/24/25 102) Current Level of Function Balance: Sitting Balance - Static: Supervision or Touching Assistance (SBA/CGA sitting EOB) (03/24/25 09) Sitting Balance - Dynamic: Supervision or Touching Assistance (CGA sitting EOB) (03/24/25914) Standing Balance - Static: Dependent and/or 2 Person Assist (Mod to Max Ax2) (03/25/25 1015) Standing Balance - Dynamic: Dependent and/or 2 Person Assist (Max Ax2) (03/25/25 101) Bed Mobility: Roll Left and Right: (not recorded) Lying to Sitting on (more content not included)... [facility] 03-26-2025 Note [facility] Patient name: Gracie Lemons Date of : 1950 Assessment and plan Gracie Lemons is a 75 y.o. male patient of Armando Kohli MD with history of anemia, BPH, CAD, DM, GERD, HLD, HTN, RAFAEL, and CVA presented to IR[facility] on 03/23/2025 with debility s/p T7-8 discectomy. Debility Impaired Mobility and ADLs Comprehensive Rehab with PT/OT/ST PMR following T7-T8 Discectomy Right Side Weakness Parkinsonian Features T7-8 Discectomy on 03/11 at [facility] with neurosurgery Patient with subsequent Right side weakness Neurology at [facility] believes it to possibly be lumbosacral plexopathy Patient with Parkinsonian features including masked facies, hypophonic speech, cogwheeling rigidity of axial and appendicular muscles, and bradykinesia A referral has been sent to [facility] Continue Flexeril, gabapentin, and nortriptyline Continue low dose Sinemet, may need to up titrate if no response in a week Pressure Injury Coccyx, POA Pressure Injury gluteal fold, POA Consult Wound Care Fibrotic Lung Disease Continue Mucinex Ordered home OFEV, family brought in it is non-formulary History of CVA CAD HTN HLD Continue atorvastatin, Plavix, Zetia, lisinopril, and metoprolol Type 2 Diabetes HgbA1C 7.7 in June 2024 Diabetic Diet Sliding Scale Insulin Recommend outpatient follow-up Hypothyroidism Will check TSH and reflex T4 Continue levothyroxine Cognitive Disorder Continue donepezil GERD Continue Protonix Vitamin D Deficiency Continue Supplementation RAFAEL CPAP ordered, refused overnight 2L/NC while sleeping if refusing CPAP Chronic Anemia Hgb 13.0 Baseline Hgb 10-13 Continue Ferrous Sulfate Overweight BMI 29.09 Encourage Diet and Lifestyle modifications Discharge planning Medically ready for discharge: no Patient and/or family has been notified they are expected to be medically stable for discharge on the following date: 04/06/25 Patient requires continued hospitalization due to: Inpatient Rehab Discussed with the patient and/or family that the following is a potential discharge location, understanding that the final plan will depend on the patient's progress and shared decision-making: Home with home health The following resources have been ordered to assist with discharge barriers: care management, PT, OT, ST Quality measures DVT prophylaxis: lovenox Lei catheter: absent Code status Full Code Subjective Patient sitting up in wheelchair, no new complaints. Discussed if patient is feeling any different on the Sinemet. Patient states no difference. Discussed that it can take a while to work and may need to be titrated up. Objective BP 106/61 Pulse 95 Temp 97.9 degrees F (36.6 degrees C) (Oral) Resp 14 Ht 5' 5 Wt 79.3 kg (174 lb 13.2 oz) SpO2 100% BMI 29.09 kg/m General appearance: alert; chronically ill appearing; in no acute distress HEENT: Head- normocephalic; Eyes- EOMI, sclera anicteric; Throat- mucous membranes moist Cardiovascular: regular rate and rhythm; normal S1, S2; no murmurs, rubs, clicks or gallops; peripheral edema absent Respiratory: lungs clear to auscultation; without wheezes, rales or rhonchi; on room air Abdomen: soft, non-tender, non-distended Neurological: oriented x 3; normal speech; parkinsonian movements, right side weakness Musculoskeletal: no significant deformity, unable to extend right arm all the way Skin: normal coloration Psych: normal mood and affect AUTHENTICATED BY [facility] SMART, ON 03/26/2025 09:44:06 [facility] 03-25-2025 Plan of care note Problem: Actual or potential alteration in health Goal: Absence of healthcare acquired conditions Outcome: Partially Met Goal: Knowledge of Interdisciplinary Plan of Care Outcome: Partially Met Goal: Knowledge of Enviroment Outcome: Partially Met [facility] 03-25-2025 Progress note Formatting of t his note might be different from the original. Talked to pt and . Good appetite prior to going into the hospital, but lately not much of an appetite. Disliked the food at [facility] (acute care) and doesn't really like the food here in [facility], tired of hospital food in general. Disliked the Glucerna at [facility]. Consuming 50% or less of trays. brought in soup and breadstick from [employer] for lunch, took some of the soup, 50% breadstick. Dislikes the NSA Mighty Shakes, the Boost Glucose Control is okay, just wants at dinner- will save and take with pills at HS. Told diet office to send cup of ice with every meal so can pour diet pop over ice. RDN observed some loss at temples. [facility] 03-25-2025 Note PM&R Progress note ASSESSMENT/PLAN: A: Gracie Lemons continues to demonstrate impairments and medical need appropriate for comprehensive acute inpt rehab T7/T8 discectomy 2/2 thoracic spinal stenosis - Continue Ibuprofen prn pain - Do not order Tylenol based on allergy - Flexeril scheduled for muscle spasms - Transferred to IRF 03/23 - Initiate PT/OT for ADLs, transfers and ambulation RLE weakness - Likely 2/2 plexopathy due to positioning during surgery - Continue PT/OT - Consider CT head if other stroke like symptoms occur 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 instability for the last 2 years - Noted masked facies, shuffling gait, tremors - Low dose Sinemet ordered 03/25 RAFAEL - Patient uses CPAP at home, family to bring in machine Dementia - Continue Donepezil HTN - Continue Lisinopril, Metoprolol - Blood pressure parameters put in place for hypotension Hyperthyroidism - Continue Levothyroxine GERD - Continue Pantoprazole HLD - Continue Atorvastatin, Zetia 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 He reports that he slept well overnight. He denies any CP or SOB. He denies any headache or vision changes. He denies any lightheadedness or dizziness. Review of systems: No cp, SOA, n/v/d. Temp: [97.9 degrees F (36.6 degrees C)-98.6 degrees F (37 degrees C)] 98.6 degrees F (37 degrees C) Heart Rate: [84-121] 121 Resp: [16] 16 BP: (80-107)/(40-70) 95/59 FiO2 (%): 21 Physical Exam: General Appearance: In no apparent distress, well nourished HEENT: Normocephalic, atraumatic, neck supple, EOMI, PER Respiratory: On room air, no respiratory distress Cardiovascular: Peripheral pulses palpable, no edema Abdomen: Nontender, nondistended Musculoskeletal: No acute injury or gross deformity Skin: No rashes visualized, normal paplaption of skin and soft tissues Psychiatric: Normal mood and affect, appropriate insight and judgement Therapy Assessments: Assessments per PT, OT, ST documentation (last filed value): Home Living Type of Home: House (03/24/251028) Home Layout: One level (laundry on main floor. Does not need to go to basement.) (03/24/251028) Bathroom Shower/Tub: Walk-in shower, Main level (3 threshold to enter) (03/24/251028) Bathroom Toilet: Raised, Main level (03/24/251028) Bathroom Equipment: Grab bars in shower, Hand-held showerhead, Shower chair, Bedside commode, Toilet seat capacity analyst (toilet safety frame) (03/24/251028) Bathroom Accessibility: (not recorded) Mobility Equipment: Cane, Wheeled walker, Rollator (Spare bed has adjustable features (their specific bed is not adjustable)) (03/24/251028) Additional Objective Details - Home Living: Pt was standing to shower prior to admit. All information verified with spouse who is present during session. Pt with incorrect responses at times with self-report of home setup. 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 Spouse reports every now and then she would make pt use the WW if more unsteady that day. Pt did not ambulate in community (stayed in car when going to store, etc); spouse reports his legs would get tired easily.Spouse does indoor IADLs and patient was doing yardwork/mowing. Pt injured R shoulder ~2 months ago (had started physical therapy) - spouse reporting it was a chronic RTC tear from MRI. Son and DIL live next door and had taken over barn chores. Spouse was handling the finances and meds for patient. (03/24/25 1029) Current Level of Function Balance: Sitting Balance - Static: Supervision or Touching Assistance (SBA/CGA sitting EOB) (03/24/25914) Sitting Balance - Dynamic: Supervision or Touching Assistance (CGA sitting EOB) (03/24/25914) Standing Balance - Static: Dependent and/or 2 Person Assist (Mod Ax2) (03/24/25914) Standing Balance - Dynamic: Dependent and/or 2 Person Assist (Mod to Max Ax2) (03/24/25914) Bed Mobility: Roll Left and Right: (not recorded) Lying to Sitting on Side of Bed: (not recorded) Sit to Lying: (not recorded) Transfers: Sit to Stand: Dependent and/or 2 (more content not included)... [facility] 03-25-2025 Note [facility] Patient name: Gracie Lemons Date of : 1950 Assessment and plan Gracie Lemons is a 75 y.o. male patient of Armando Kohli MD with history of anemia, BPH, CAD, DM, GERD, HLD, HTN, RAFAEL, and CVA presented to IR[facility] on 03/23/2025 with debility s/p T7-8 discectomy. Debility Impaired Mobility and ADLs Comprehensive Rehab with PT/OT/ST PMR following T7-T8 Discectomy Right Side Weakness Parkinsonian Features T7-8 Discectomy on 03/11 at [facility] with neurosurgery Patient with subsequent Right side weakness Neurology at [facility] believes it to possibly be lumbosacral plexopathy Patient with Parkinsonian features including masked facies, hypophonic speech, cogwheeling rigidity of axial and appendicular muscles, and bradykinesia A referral has been sent to [facility] Continue Flexeril, gabapentin, and nortriptyline Low dose Sinemet ordered to start today Pressure Injury Coccyx, POA Pressure Injury gluteal fold, POA Consult Wound Care Fibrotic Lung Disease Continue Mucinex Ordered home OFEV, family brought in it is non-formulary History of CVA CAD HTN HLD Continue atorvastatin, Plavix, Zetia, lisinopril, and metoprolol Type 2 Diabetes HgbA1C 7.7 in June 2024 Diabetic Diet Sliding Scale Insulin Recommend outpatient follow-up Hypothyroidism Will check TSH and reflex T4 Continue levothyroxine Cognitive Disorder Continue donepezil GERD Continue Protonix Vitamin D Deficiency Continue Supplementation RAFAEL CPAP ordered, refused overnight 2L/NC while sleeping if refusing CPAP Chronic Anemia Hgb 13.0 Baseline Hgb 10-13 Continue Ferrous Sulfate Overweight BMI 29.09 Encourage Diet and Lifestyle modifications Discharge planning Medically ready for discharge: no Patient and/or family has been notified they are expected to be medically stable for discharge on the following date: 04/06/25 Patient requires continued hospitalization due to: Inpatient Rehab Discussed with the patient and/or family that the following is a potential discharge location, understanding that the final plan will depend on the patient's progress and shared decision-making: Home with home health The following resources have been ordered to assist with discharge barriers: care management, PT, OT, ST Quality measures DVT prophylaxis: lovenox Lei catheter: absent Code status Full Code Subjective Patient sitting up in chair, family is at bedside. Discussed starting low dose Sinemet. Patient and family in agreement. Objective BP 105/70 Pulse 84 Temp 98.6 degrees F (37 degrees C) (Oral) Resp 16 Ht 5' 5 Wt 79.3 kg (174 lb 13.2 oz) SpO2 97% BMI 29.09 kg/m General appearance: alert; chronically ill appearing; in no acute distress HEENT: Head- normocephalic; Eyes- EOMI, sclera anicteric; Throat- mucous membranes moist Cardiovascular: regular rate and rhythm; normal S1, S2; no murmurs, rubs, clicks or gallops; peripheral edema absent Respiratory: lungs clear to auscultation; without wheezes, rales or rhonchi; on room air Abdomen: soft, non-tender, non-distended Neurological: oriented x 3; normal speech; parkinsonian movements, right side weakness Musculoskeletal: no significant deformity, unable to extend right arm all the way Skin: normal coloration Psych: normal mood and affect AUTHENTICATED BY [facility], ON 03/25/2025 11:47:48 [facility] 03-25-2025 Progress note Formatting of t his note might be different from the original. Rapid Response Note Notified of increased DI score of 46 per primary nurse. States no need for rapid team intervention at this time. Tita Land RN [facility] 03-24-2025 Plan of care note [facility] Nurse Notes Problem: Actual or potential alteration in health Goal: Absence of healthcare acquired conditions Outcome: Partially Met Goal: Knowledge of Interdisciplinary Plan of Care Outcome: Partially Met Goal: Knowledge of Enviroment Outcome: Partially Met Problem: Pressure Injury, Risk of Goal: Absence of pressure injury Outcome: Partially Met Problem: Falls, Risk of Goal: Absence of falls Outcome: Partially Met Goal: Absence of physical injury Outcome: Partially Met Problem: Pain Goal: Reduced pain sensation Outcome: Partially Met Goal: Control of acute pain to acceptable level Outcome: Partially Met Goal: Able to cope with pain Outcome: Partially Met Goal: Able to achieve maximum level of physical functioning Outcome: Partially Met Goal: Able to achieve maximum level of psychosocial functioning Outcome: Partially Met [facility] 03-24-2025 Plan of care note [facility] Physical Therapy Notes Problem: Mobility - Impaired Goal: PT- LTG bed mobility Description: PT - Patient will perform bed mobility with supervision and appropriate AE to improve functional mobility and safety. Outcome: Not Addressed Goal: PT- LTG sit to stand transfer Description: PT - Patient will perform sit to/from stand transfer with minimal assist, moderate assist, approriate device to improve functional mobility and safety. Outcome: Not Addressed Goal: PT- LTG stand-pivot transfer Description: PT - Patient will perform stand-pivot transfer with minimal assist, moderate assist, approriate device to improve functional mobility and safety. Outcome: Not Addressed Goal: PT- LTG car transfer Description: PT - Patient will perform car transfer with minimal assist, moderate assist to improve functional mobility and safety. Outcome: Not Addressed Goal: PT- LTG dynamic balance Description: PT - Patient will perform standing dynamic balance activities with device with minimal assist, moderate assist to improve functional mobility and safety. Outcome: Not Addressed Goal: PT- LTG ambulation Description: PT - Patient will ambulate at least 75+ feet with device with minimal assist, moderate assist to improve functional mobility and safety. Outcome: Not Addressed Goal: PT- LTG stair climbing Description: PT - Patient will ascend and descend 3+ stairs with non-reciprocal technique with 2 rails with minimal assist, moderate assist, 2-person assist to improve functional mobility and safety. Outcome: Not Addressed Goal: PT- LTG wheelchair management Description: PT - Patient will propel and manage wheelchair at least 100+ feet with supervision to improve functional mobility and safety. Outcome: Not Addressed Goal: PT- LTG mobility other Description: PT- Patient and/or caregiver(s) will verbalize and demonstrate adequate understanding of appropriate HEP to improve functional strength and perform program with IND. Outcome: Not Addressed [facility] 03-24-2025 Plan of care note [facility] Occupational Therapy Notes Problem: Self-care Deficit Goal: OT- STG UB dressing Description: OT - Patient will complete UB dressing with minimal assist through provided cues in order to improve self care function. Outcome: Not Addressed Goal: OT- STG LB dressing Description: OT - Patient will complete LB dressing with maximum assist (x1) in order to improve self care function. Outcome: Not Addressed Goal: OT- LTG grooming Description: OT - Patient will complete grooming tasks from w/c level with modified independence and/or with contact guard assist in standing in order to improve self care function. Outcome: Not Addressed Goal: OT- LTG UB dressing Description: OT - Patient will complete UB dressing with set-up assist in order to improve self care function. Outcome: Not Addressed Goal: OT- LTG LB dressing Description: OT - Patient will complete LB dressing with contact guard assist / footwear management with stand by assist through use of AE with adherence to back precautions in order to improve self care function. Outcome: Not Addressed Goal: OT- LTG LB bathing Description: OT - Patient will complete UB/LB bathing with stand by assist from seated position with use of AE in order to improve self care function. Outcome: Not Addressed Goal: OT- LTG toileting Description: OT - Patient will complete toileting with minimal assist in order to improve self care function. Outcome: Not Addressed Goal: OT- LTG precautions Description: OT - Patient will demonstrate back precaution management with independence in order to improve safe and appropriate ADL/IADL management. Outcome: Not Addressed Goal: OT- LTG Self-Care Other Description: OT- Patient will participate in family/caregiver training as needed to enhance a safe return to home environment by time of discharge, including education on ADLs, functional transfers, precautions, fall prevention, HEP, and any adaptive equipment needs. Outcome: Not Addressed Problem: Mobility - Impaired Goal: OT- STG toilet transfer Description: OT - Patient will complete toilet transfer with maximum assist (x1) with use of AD in preparation for ADL's. Outcome: Not Addressed Goal: OT- LTG toilet transfer Description: OT - Patient will complete toilet transfer with contact guard assist and use of AD in preparation for ADL's. Outcome: Not Addressed Goal: OT- LTG navigation Description: OT - Patient will navigate environment within short household distances with minimal assist and use of AD during simple item retrieval tasks in anticipation for safe return to home/community. Outcome: Not Addressed Problem: Impaired Strength Goal: OT- LTG Strength Other Description: OT- Patient will tolerate 15 mins of BUE strengthening exercises (WITHIN PRECAUTIONS) in order to improve necessary strength for functional mobility and self care tasks with patient able to complete exercises with no more than min cues by time of discharge. Outcome: Not Addressed Problem: Impaired Neurologic Function Goal: OT- STG static standing balance Description: OT - Patient will complete static standing balance activity with moderate assist during unilateral engagement in tabletop tasks for durations up to 2-3 mins with no more than min blocking required to BLEs in preparation for ADL's. Outcome: Not Addressed Goal: OT- STG Neuro Function Other Description: OT- Patient will participate in formal assessment of bilateral gross/ fine motor coordination and gross grasp/pinch strengths to assist with treatment planning with further goals to follow as needed. Outcome: Not Addressed Goal: OT- LTG dynamic sitting balance Description: OT - Patient will complete dynamic sitting balance activity with modified independence during extended reaching tasks outside MARK while on unsupported surfaces in preparation for ADL's. Outcome: Not Addressed Goal: OT- LTG static standing balance Description: OT - Patient will complete static standing balance activity with contact guard assist during unilateral task engagement at tabletop level for durations >5 mins with no need for blocking to BLEs in preparation for ADL's. Outcome: Not Addressed [facility] 03-24-2025 Plan of care note [facility] Speech Language Pathology Notes Problem: Cognition - Impaired Goal: ST- STG O-Log Description: ST O-Log - Patient will score a 25 or above on two separate administrations of the O-Log. Outcome: Not Addressed Goal: ST- STG Memory- memory strategies Description: ST Memory - Patient will complete memory tasks with the use of memory strategies with 80% accuracy and minimal cues. Outcome: Not Addressed Goal: ST- STG Problem Solving- verbal problem solving Description: ST Problem Solving - Patient will complete basic problem solving, reasoning, safety awareness, and attention tasks with 80% accuracy and min cues. Outcome: Not Addressed Goal: ST- STG Executive Function- sequencing/organization/planning Description: ST Executive Function - Patient will complete basic sequencing, planning, and organizing tasks with 80% accuracy and min cues. Outcome: Not Addressed Goal: ST- LTG Executive Function- sequencing/organization/planning Description: ST Executive Function - Patient will demonstrate improved cognitive linguistic abilities to aid in safe return to independence w/ADLs at [place] home Outcome: Not Addressed [facility] 03-24-2025 Consult note Formatting of th is note is different from the original. Images from the original note were not included. 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 Verbal consent was obtained when possible for any photographs uploaded to the patient's chart. Description of visit: Wound 03/23/25 Acute Pressure Injury Buttock Posterior (Active) Properties Placement Date 03/23/25 Placement Time 1621 Wound Location Orientation Posterior Present on Original Admission Yes Wound Approximate Age at First Assessment (Weeks) 7 weeks Wound Condition (HOME HEALTH ONLY) Acute Primary Wound Type Pressure Injury Location Buttock Assessments 03/24/2025 2:18 PM Wound Image Wound Length (cm) 3 cm Wound Width (cm) 1 cm Wound Depth (cm) 0.1 cm Wound Surface Area (cm^2) 2.36 cm^2 Wound Volume (cm^3) 0.157 cm^3 Area % Change 100 Wound Healing % -99 Drainage Amount None Odor None Wound Characteristics [place] Complex Wound Charting Pressure Injury Pressure Injury Stage Unstageable Shyann-wound Assessment Temperature WNL Active Orders Date Order Priority Status Authorizing Provider 03/24/25 1433 Change dressing Buttock Routine Active Rogelio Espinosa MD - Specify site: Buttock - Product(s): Medline Zinc Barrier (orange top) - Cleanse site with: Soap and water 03/24/25 1301 Inpatient consult to Enterostomal Therapy Routine Active Oma Smart CNP - Reason For Consult?: Wound Care - Wound location(s) or Specific need: Coccyx, gluteal folds Dressing order written: Cleanse wound to buttock with soap and water. Apply medline zinc barrier cream (orange top) to wound and allow area to remain open to air. Reapply daily and PRN if soiled or saturated. Patient was able to reposition with assistance for care. Patient rated pain denied. Current Anirudh (Pressure Injury Risk) Scores per last staff nurse values: Anirudh Scale Sensory Perceptions: Slightly limited [3] Moisture: Occasionally moist [3] Activity: Chairfast [2] Mobility: Very limited [2] Nutrition: Adequate [3] Friction and Shear: Potential problem [2] Anirudh Scale Score: 15 Anirudh Scale scores ranging from 9 or less indicate SEVERE risk, 10-12 equal high risk, 13-14 determine a moderate risk, 15-19 indicate mild risk. Recommend prevention/interventions for subscale scores of 2 or lower. Specialty Care Plan: Education: Education provided to patient and patient's family/caregiver regarding treatment plan and any potential barriers to wound healing. Prevention measures recommended: Q2 hour turns and Offloading/Repositioning Wedges Utilize [facility] Bed Pressure Redistribution ordered [facility] Applicable consults: Outpatient Wound Clinic referral placed or Wound Clinic contacted for appointment Updates relayed to staff nurse and provider. Orders and AVS updated with Wound Care instructions and education as applicable. Will continue to follow. Please note that Wound Care Team is unavailable on Weekends and Holidays. [facility] 03-24-2025 Consult note Formatting of th is note is different from the original. 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 Per H&P: Patient is a 75 y.o. male patient of Armando Kohli MD with history of anemia, BPH, CAD, DM, GERD, HLD, HTN, RAFAEL, and CVA presented to [facility] on 03/23/2025 with debility s/p T7-8 discectomy. Patient was admitted inpatient on 03/11 for a T7-8 discectomy. Hospitalization was complicated by a right pneumothorax requiring Chest tube placement and right side weakness. Patient currently denies fever, chills, chest pain, abdominal pain, nausea, vomiting, diarrhea, constipation, or dysuria. Pt's chief complaints include: NA - spouse reporting significant decline in cognition. An informal speech language cognitive evaluation was completed this date to determine need for skilled speech services while in [facility]. Pt completed O Log and informal questioning, however results are limited d/t fatigue. Pt presents w/functional expressive language abilities to express basic wants/needs; however pts spouse reporting progressive decrease in vocal loudness over the past several years Pt presents w/functional receptive language abilities for basic commands and conversation; however assessment limited d/t fatigue Pt presents w/moderate-severe cognitive linguistic deficits characterized by impaired orientation, attention, level of alertness, reasoning, memory, and insight and benefits from mod-max A semantic and MC cueing intermittently. Ongoing assessment recommended to further assess cognition as assessment this date was limited 2/2 fatigue. 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 Potential barriers to rehab include: cognitive endurance, cognitive limitations, reduced insight, and deficit awareness. The patient would benefit from skilled ST services focused on the above listed impairments and limitations in order to demonstrate improved functional cognitive-communication skills, including use of memory strategies, for increased safety, and independence w/ADLs Oral/Motor: Oral Motor Impression-Severity Scale: WFL Voice: Voice Breath Support: WFL Vocal Quality: Weak Vocal Intensity: Moderately decreased Auditory Comprehension: Auditory Comp Impression-Severity Scale: WFL (basic commands and conversation) Hearing: Hard of hearing/hearing concerns (reports difficulty hearing in the presence of background noise) Visual Perception: Visual Perception: No acute visual changes (per pt report) Reading Comprehension: Reading Comp Impression-Severity: Requires further assessment Expressive Language: Expressive Language Impression-Severity: Modified Indep/Extended time Primary Mode of Expression: Verbal Interfering Components: Attention, Impaired thought organization (level of alertness) Motor Speech: Motor Speech Impression Severity: WFL Speech Intelligibility: WFL Written Expression: Written Expression Impression-Severity: Requires further assessment Cognitive-Communication: Speech Cognition Impression-Severity: 50-75% (Moderate), 25-50% (Severe), Requires further assessment (assessment limited d/t fatigue) Orientation Level: Oriented to person, Disoriented to place, Disoriented to time, Disoriented to situation Attention: Exceptions to WFL Sustained Attention: 50-75% (Moderate), 25-50% (Severe) Memory: Exceptions to WFL Immediate recall: 90-100% (Supervision, Occasional Assist) Delayed recall: 25-50% (Severe) Verbal Problem Solving: Exceptions to WFL Verbal Reasoning Skills: 25-50% (Severe) Safety/Judgement: Exceptions to WFL Behavioral Observations: bed alarm, fall risk Insight: Decreased awareness of impairment, Decreased insight into impact of injury/deficits Task Initiation: Delayed initiation, Initiates with cues Flexibility of Thought: Reduced flexibility Auditory Processing Difficulty: Mod delay Pragmatics: Flat affect, Decreased eye contact (lethargic) Patient O-Log (Orientation Log) Score - Cut off score 25 or better on two separate administrations: Orientation-log: Yes City: [address]: 2 Name of Hospital: 2 Month: 3 Date: 2 Year: 1 Day of Week: 3 Clock Time: 3 Etiology / Event: 0 Pathology Deficits: 0 Orientation Log Total Score (out of 30): 17 Prior Level of Function: Reason for Referral: Altered mental status Primary Language: Surinamese 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, 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, 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) Education Level: High school grad or equivalent, College grad (BA) Living Situation: With others, Independent with ADL's, Assistance provided with managing medications, Assistance provided with finance management, Drives, Cooking, Cleaning Prior Speech Deficit: No known previous deficits, Per chart review, Per patient report Prior Language Deficit: No known previous deficits, Per chart review, Per patient report Prior Cognitive Deficit: Suspected cognitive deficits, Per caregiver report, Memory changes (recently started on aricept by PCP) Other pertinent diagnoses affecting cog/comm/voice: (meningioma and TIA 22 yrs ago) QI CARE Score - Eatin CARE Score - Oral Hygiene: 88 No past medical history on file. No past surgical history on file. For complete objective data, detailed plan of care, and education refer to: Speech Comm/Cog Eval flowsheet, as well as patient Plan of Care and Education documentation. [facility] 03-24-2025 Plan of care note IPRU Nurse Notes Problem: Falls, Risk of Goal: Absence of falls Outcome: Met Note: No falls this shift continue to use bed alarm or personal alarm. Will continue to monitor. Goal: Absence of physical injury Outcome: Met Problem: Actual or potential alteration in health Goal: Absence of healthcare acquired conditions Outcome: Partially Met Goal: Knowledge of Interdisciplinary Plan of Care Outcome: Partially Met Goal: Knowledge of Enviroment Outcome: Partially Met Problem: Pressure Injury, Risk of Goal: Absence of pressure injury Outcome: Partially Met [facility] 03-24-2025 Consult note Formatting of th is note might be different from the original. Date: 03/24/2025 Time: 12:15 PM Patient Name: Gracie Lemons Date of : 1950 Reason for Consult: Spoke with pt this am at bedside , assisted OT to get pt to chair. Introduced self to pt. Will come back to see him again at a later time. Discharge planning Discharge Plan Discussion: Discharge Plan: Plan A: Home (HHC vs OP) Plan B: [facility] Facility Transportation To be determined . Assessment and Background Information: Care Management Assessment - Consult Chart has been reviewed, see H&P for relevant medical history. will see pt to complete face to face assessment at later time Living Arrangements & listed support systems as: per chart : Lives With: Spouse (Idalia) Type of Home: House Home Layout: One level (laundry on main floor. Does not need to go to basement.) Rails on inside stairs: 2 rails Number of stairs inside home: 16 Steps to enter home: Yes Rails to enter home: 1 rail, L rail going up (+ bilateral grab bars on doorframe) Number of stairs to enter home: 3 Bathroom Shower/Tub: Walk-in shower, Main level (3 threshold to enter) Bathroom Toilet: Raised, Main level Bathroom Equipment: Grab bars in shower, Hand-held showerhead, Shower chair, Bedside commode, Toilet seat capacity analyst (toilet safety frame) Mobility Equipment: Cane, Wheeled walker, Rollator (Spare bed has adjustable features (their specific bed is not adjustable)) ADL Equipment: (none) Additional Objective Details - Home Living: Pt was standing to shower prior to admit. All information verified with spouse who is present during session. Pt with incorrect responses at times with self-report of home setup. 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 Advance Directives: Advance Directive: Patient has advance directive, copy in chart Advance Directive not in Chart: Copy requested from family Type of Healthcare Directive: Durable power of civil attorney for health care, Living will Information Provided on Healthcare Directives: No Patient Support: Does Patient have a PCP?: Yes Living Arrangements: Spouse/significant other (Idalia Lemons (Spouse) [phone]) Type of Residence: Private residence (3 STORM, 0 HR WIS) Support Systems: Spouse/significant other Assistance Needed: yes Current Home Equipment: Front-wheeled walker, Cane (AFO- LLE) Caregiver Assessment: Will discuss further with pt and Will continue to follow patient during their IPR admit. Will assist pt & caregiver to develop appropriate discharge plan to meet their needs as IP Rehab admit progresses and comes to the end of their stay. [facility] 03-24-2025 Consult note Formatting of th is note is different from the original. Inpatient Rehab Occupational Therapy - Evaluation Note Patient admitted 03/11/25 to [employer] for planned T7/8 lateral retro pleural discectomy. RLE weakness following surgery 2* plexopathy from positioning during surgery Parkinsonian features Fibrotic lung disease PMH: DM, HTN, HLD, CAD, hx of L3-S1 decompression/fusion in 2012 OT Time Calculation Start Time: 1029 Stop Time: 1205 Time Calculation (min): 96 min OT Individual Therapy Min: 96 Problem List / Diagnosis Problem List[1] Occupational Therapy Assessment The patient presents with musculoskeletal, neurological impairment(s) in generalized debility, spine, trunk, bilateral, upper extremity, lower extremity, which create performance deficits including strength, range of motion, balance, coordination, acitvity tolerance, respiratory capacity, orientation, problem solving, sequencing, memory, alertness, perception, insight, safety, and knowledge deficit. These performance impairments limit participation in grooming, UE dressing, LE dressing, bathing, toileting, home management, hobbies, functional mobility in the chosen occupational roles of premorbid level individual, parent, spouse, family member, community member. The patient's co-morbidities do significantly affect patient performance in the above activities and roles. The patient's home setup is a slumber room attendant, family / caregiver support is a slumber room attendant for return to prior level of function. The patient's awareness of own capacity and performance is a slumber room attendant to return to prior level of function. During the assessment, significant modification of task modification of task was required and multiple treatment options treatment options were identified in the plan of care. This consultation required extensive review review of the medical and therapy history. Therapy Precautions Orthotic Devices: No Weight Bearing Status: WFL General Rehab Precautions: Fall Risk, Back (incision on R lateral chest wall) UE Functioning RUE Assessment RUE Assessment: Exceptions to WFL Reports chronic R RTC tear - Limited to ~50 degrees shoulder flexion, able to actively assist to 90 degrees with LUE. Passive range to ~150 degrees before noting pain. ER/IR WFL 4+/5 biceps and triceps LUE Assessment LUE Assessment: Exceptions to WFL AROM grossly WFL, noted confusion and difficulty motor planning AROM at times in LUE and with finger to nose testing. 4/5 shoulder and elbow strength Vision Vision-Basic Assessment Current Vision: Wears glasses only for reading Patient Visual Report: (denies acute visual changes) Coordination RUE Assessment: X alternate nose to therapist finger: slight difficulty with movement accomplished finger opposition: slight difficulty with movement accomplished LUE Assessment: X alternate nose to therapist finger: moderate difficulty-arrhythmic movements, increased speed decreases performance (Patient with difficulty following commands, reaching out to various targets with ataxia present during increased speed) finger opposition: slight difficulty with movement accomplished Sensation Additional Comments: Denies N/T. Intact sensation to RLE. Perception Inattention/Neglect: Appears intact Initiation: Appears intact Motor Planning: Ataxia, Left Perseveration: Not present Balance Assessment Sitting Balance - Static: Supervision or Touching Assistance, laterally shifted to left, without UE support, with back supported (SBA) Standing Balance - Static: Dependent and/or 2 Person Assist, with bilateral UE support, 30 seconds to 1 minute (Max -> Max x2 with bilateral blocking) Cognition Overall Cognitive Status: Impaired Arousal/Alertness: Delayed responses to stimuli (varies with fatigue throughout session) Orientation Level: Oriented to person, Oriented to situation, Oriented to place, Disoriented to time Executive functioning: Insight, Sequencing, Planning / Organizing Safety Judgment: Decreased awareness of need for safety Problem Solving: Assistance required to identify errors made, Assistance required to generate solutions, Assistance required to implement solutions Attention: Attends to quiet environment Hearing Status: WFL Social Interaction: Lethargic, Flat affect, Cooperative Comments: Spouse reports patient has had a decline in cognition since surgery. Pt with flat affect, reports vocal fatigue midway through session with hoarseness noted. Pt requesting spouse to speak for him. ADL Eating: Assistance Needed: Set-up / clean-up Physical Assistance Level: No physical assistance Skilled Intervention: Setup assist to manage small containers/packages. Oral Hygiene: Reason if not Attempted: Medical concerns (Patient with episode of hypotension by end of session. Unable to complete.) Toileting Hygiene: Assistance Needed: Physical assistance Physical Assistance Level: Total assistance Skilled Intervention: Patient requiring total assist for clothing management in standing/hygiene needs, provided Max A for standing balance with blocing to LEs as second staff completes clothing management needs. Shower/Bathe Self: Assistance Needed: Physical assistance Physical Assistance Level: Total assistance Upper Body Bathing: Partial/Moderate Assistance (Min) Lower Body Bathing: Dependent and/or 2 Person Assist Skilled Intervention: Patient completes shower while seated from standard shower bench, remaining seated for entirety of shower 2* safety concerns. Pt noted to have slight L-lateral lean throughout shower, provided close SBA for safety with seated balance. Pt requiring cues/set-up assist for sequencing task, noted to initiate washing without use of soap. Once set-up with cues, patient able to wash UB region with SBA. Cues to avoid bending during shower in adherence to back precautions, initating edu on use of LH bath sponge to improve ease with task. Min A for thoroughness with washing distal LEs. At this time, patient reporting feelings of hypotension, becoming more lethargic. Max A for rinsing / drying to complete shower. Total assist x2 person for shyann/buttocks bathing in standing post-shower. Upper Body Dressing: Assistance Needed: Physical assistance Physical Assistance Level: 76% or more Skilled Intervention: Patient noted to don overhead shirt by managing over head first, however unable to don remainder of way. Educated pt on compensatory techniques to accommodate R shoulder limitations, re-attempting with provided cues. Pt provided Mod A for threading UEs with Max to manage over head/trunk. Increased fatigue noted by this time with hypotension present. Lower Body Dressing: Assistance Needed: Physical assistance Physical Assistance Level: Total assistance Skilled Intervention: Patient requiring total assist to thread brief/shorts over feet. Upon standing, patient requiring 3-person assist to stand/manage clothing items with bilateral blocking to BLEs provided in standing with Max x2 as third staff member manages clothing items. Putting On/Taking Off Footwear: Assistance Needed: Physical assistance Physical Assistance Level: Total assistance Skilled Intervention: Total assist to don/doff socks. Cues to avoid bending in adherence to back precautions. Initiated AE edu to doff socks with use of handkerchief sample clerk, providing Min A for placement of handkerchief sample clerk with Min to assist with pushing from RLE. Min A to doff L sock. Functional Mobility Functional Mobility: (unable) Bed Mobility Skilled Intervention: Patient requiring total assist (x2 person) to manage self back to supine at end of session following hypotensive episode. Assist for trunk and BLE management. Pt with increased lethargy by end of session with patient falling asleep once back to supine. Nurse present to assess at this time. Sit to Lying: Assistance Needed: Physical assistance Physical Assistance Level: Total assistance Functional Transfers Shower Transfers: Dependent and/or 2 Person Assist, Grab bars Book Cleaner: (none) Skilled Intervention: Patient fatigues with functional transfers as session progresses. Initial sit/stand and pivot transfer to toilet completed with Max x2 with blocking to RLE. Increased buckling to R+LLE noted with increased time in standing (static standing with ADLs), initially able to complete with Max x1 for static standing but increasing to Max A x2 to maintain standing balance when fatigued. Max x2 to pivot back to w/c and into shower. By end of session, patient with hypotensive episode and requiring Max x3 to complete stand pivot transfers with blocking to BLEs required. Sit to Stand: Assistance Needed: Physical assistance Physical Assistance Level: Total assistance [id number]: Assistance Needed: Physical assistance Physical Assistance Level: Total assistance Toilet Transfer: Assistance Needed: Physical assistance, Adaptive equipment Physical Assistance Level: Total assistance Interventions Educated pt on OT POC/goals with understanding verbalized. Pt able to recall having back precautions, recalling BLT and 2/3 precautions. Reviewed precautions with pt and spouse. Initiated AE edu this date, however limited training able to be completed due to onset of symptomatic hypotension during latter portion of session. BP measuring 97/60 when reporting symptomatic lightheadedness during shower. Pt noted to be SOB but unable to obtain SpO2 reading. Pt assisted back to bed with BP measuring 80/53 at that time. SpO2 99% (required pulse oximeter to be placed on toe for accurate reading due to cold fingers). Nurse present with patient at end of session. Home Living Obtained Home Living and PLOF info from: Patient, Patient s family member Unable to obtain Home Living and PLOF info on initial eval: Patient is a questionable historian Lives With: Spouse (Idalia) Type of Home: House Home Layout: One level (laundry on main floor. Does not need to go to basement.) Rails on inside stairs: 2 rails Number of stairs inside home: 16 Steps to enter home: Yes Rails to enter home: 1 rail, L rail going up (+ bilateral grab bars on doorframe) Number of stairs to enter home: 3 Bathroom Shower/Tub: Walk-in shower, Main level (3 threshold to enter) Bathroom Toilet: Raised, Main level Bathroom Equipment: Grab bars in shower, Hand-held showerhead, Shower chair, Bedside commode, Toilet seat capacity analyst (toilet safety frame) Mobility Equipment: Cane, Wheeled walker, Rollator (Spare bed has adjustable features (their specific bed is not adjustable)) ADL Equipment: (none) Additional Objective Details - Home Living: Pt was standing to shower prior to admit. All information verified with spouse who is present during session. Pt with incorrect responses at times with self-report of home setup. 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 Spouse reports every now and then she would make pt use the WW if more unsteady that day. Pt did not ambulate in community (stayed in car when going to store, etc); spouse reports his legs would get tired easily.Spouse does indoor IADLs and patient was doing yardwork/mowing. Pt injured R shoulder ~2 months ago (had started physical therapy) - spouse reporting it was a chronic RTC tear from MRI. Son and DIL live next door and had taken over barn chores. Spouse was handling the finances and meds for patient. Occupational Therapy Goals Problem: Self-care Deficit Goal: OT- STG UB dressing Description: OT - Patient will complete UB dressing with minimal assist through provided cues in order to improve self care function. Outcome: Not Addressed Goal: OT- STG LB dressing Description: OT - Patient will complete LB dressing with maximum assist (x1) in order to improve self care function. Outcome: Not Addressed Goal: OT- LTG grooming Description: OT - Patient will complete grooming tasks from w/c level with modified independence and/or with contact guard assist in standing in order to improve self care function. Outcome: Not Addressed Goal: OT- LTG UB dressing Description: OT - Patient will complete UB dressing with set-up assist in order to improve self care function. Outcome: Not Addressed Goal: OT- LTG LB dressing Description: OT - Patient will complete LB dressing with contact guard assist / footwear management with stand by assist through use of AE with adherence to back precautions in order to improve self care function. Outcome: Not Addressed Goal: OT- LTG LB bathing Description: OT - Patient will complete UB/LB bathing with stand by assist from seated position with use of AE in order to improve self care function. Outcome: Not Addressed Goal: OT- LTG toileting Description: OT - Patient will complete toileting with minimal assist in order to improve self care function. Outcome: Not Addressed Goal: OT- LTG precautions Description: OT - Patient will demonstrate back precaution management with independence in order to improve safe and appropriate ADL/IADL management. Outcome: Not Addressed Goal: OT- LTG Self-Care Other Description: OT- Patient will participate in family/caregiver training as needed to enhance a safe return to home environment by time of discharge, including education on ADLs, functional transfers, precautions, fall prevention, HEP, and any adaptive equipment needs. Outcome: Not Addressed Problem: Mobility - Impaired Goal: OT- STG toilet transfer Description: OT - Patient will complete toilet transfer with maximum assist (x1) with use of AD in preparation for ADL's. Outcome: Not Addressed Goal: OT- LTG toilet transfer Description: OT - Patient will complete toilet transfer with contact guard assist and use of AD in preparation for ADL's. Outcome: Not Addressed Goal: OT- LTG navigation Description: OT - Patient will navigate environment within short household distances with minimal assist and use of AD during simple item retrieval tasks in anticipation for safe return to home/community. Outcome: Not Addressed Problem: Impaired Strength Goal: OT- LTG Strength Other Description: OT- Patient will tolerate 15 mins of BUE strengthening exercises (WITHIN PRECAUTIONS) in order to improve necessary strength for functional mobility and self care tasks with patient able to complete exercises with no more than min cues by time of discharge. Outcome: Not Addressed Problem: Impaired Neurologic Function Goal: OT- STG static standing balance Description: OT - Patient will complete static standing balance activity with moderate assist during unilateral engagement in tabletop tasks for durations up to 2-3 mins with no more than min blocking required to BLEs in preparation for ADL's. Outcome: Not Addressed Goal: OT- STG Neuro Function Other Description: OT- Patient will participate in formal assessment of bilateral gross/ fine motor coordination and gross grasp/pinch strengths to assist with treatment planning with further goals to follow as needed. Outcome: Not Addressed Goal: OT- LTG dynamic sitting balance Description: OT - Patient will complete dynamic sitting balance activity with modified independence during extended reaching tasks outside MARK while on unsupported surfaces in preparation for ADL's. Outcome: Not Addressed Goal: OT- LTG static standing balance Description: OT - Patient will complete static standing balance activity with contact guard assist during unilateral task engagement at tabletop level for durations >5 mins with no need for blocking to BLEs in preparation for ADL's. Outcome: Not Addressed Signs and symptoms of abuse / neglect: No - Describe: Justification of Medical Necessity and Intensity of Service: Patient would benefit from skilled Occupational Therapy (OT) services in this inpatient rehabilitation facility with a multidisciplinary team approach to address the above-listed deficits/education needs in order to maximize independence with ADLs (activities of daily living)/IADLs (instrumental activities of daily living) upon discharge home. Patient wants to return home with family assist and has good potential for success in this environment to increase independence, safety, and quality of life after participating in intense OT. Handoff given to primary RN. No past medical history on file. No past surgical history on file. For complete objective data, detailed plan of care and patient education refer to: OT EVALUATION flowsheet, OT TREATMENT flowsheet, patient Plan of Care, Plan of Care progress note, and Patient Education. [1] Patient Active Problem List Diagnosis Status post discectomy [facility] 03-24-2025 Consult note Formatting of th is note is different from the original. Consult Physical Medicine & Rehabilitation [facility] Acute Inpatient Rehabilitation H&P 03/24/2025 Patient Name: Gracie Lemons Date of : 1950 (75 y.o.) Primary Care Physician: Armando Kohli MD Date of Admission: 03/23/2025 Assessment & Plan T7/T8 discectomy 2/2 thoracic spinal stenosis - Continue Ibuprofen prn pain - Do not order Tylenol based on allergy - Flexeril scheduled for muscle spasms - Transferred to IRF 03/23 - Initiate PT/OT for ADLs, transfers and ambulation RLE weakness - Likely 2/2 plexopathy due to positioning during surgery - Continue PT/OT - Consider CT head if other stroke like symptoms occur 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 instability for the last 2 years - Noted masked facies, shuffling gait, tremors - Consider adding Sinemet RAFAEL - Patient uses CPAP at home, family to bring in machine Dementia - Continue Donepezil HTN - Continue Lisinopril, Metoprolol Hyperthyroidism - Continue Levothyroxine GERD - Continue Pantoprazole HLD - Continue Atorvastatin, Zetia 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 DVT prophylaxis - Lovenox Precautions - fall Follow-ups - Neurosurgery Consulted internal medicine to monitor co-morbidities during rehab. Patient requires frequent management by consulting physicians not available in a lower level of care and frequent lab monitoring. On admission, I (inpatient rehabilitation facility physician) completed the medication reconciliation, and no issues were found. Description of Current Medical Status: Medical/Functional Exam: Please see below Rehabilitation Diagnosis: As above Current & Prior Comorbid Conditions: Please see problem list above Current and Prior Level of Function: Please see below Status Compared to Pre-Admission: There are no clinically significant differences between the patient's current medical and functional status as documented in the preadmission screen. Please see current functional status and hospital course/medical management. Treatment Plan: Disciplines Required: Physical Therapy, Occupational Therapy, Speech Therapy, Case Management/Social Work, and Nursing Specialized in Rehabilitation Intensity of Services: At least 3 hours per day, 5 days a week Functional Goals: improve independence with regard to mobility, ADLs, cognition, communication Medical Goals: Medically stable for home discharge Special/Safety Considerations: Fall risk There are no special or safety considerations that would likely preclude immediate implementation of an intensive rehabilitation program (intensity as stated above) or substantially influence plan of care. Risk of Complications: Patient is High Risk For: Falls, Skin breakdown, Dehydration and malnourishment, Atelectasis, Hypotension/hypertension, and DVT/PE Discharge Barriers: Functional deficits and medical stability Patient requires medical monitoring and management of comorbidities and/or hospital complications Patient requires Nursing Specialized in Rehabilitation to Monitor: Neurologic Assessment Psychosocial Considerations: Safe home discharge plan A complete drug regimen review was completed and No potentially clinically significant medication issue(s) were identified. Attestation: Considering all of the information above, it is my best judgment that this patient requires an intensive rehabilitation multidisciplinary program as previously described due to the necessity of medical management, rehabilitation needs, and complexity of nursing care under the supervision of a rehabilitation physician (patient requires at least 3 rehab physician visits per week). It can be reasonably expected that patient will participate in and benefit from a multidisciplinary team approach to maximize functional independence that is best served with acute inpatient rehabilitation as opposed to lower level of care. The teams needed are: Rehabilitation Nursing for medication management, bowel/bladder care, skin care, and respiratory care Physical Therapy for strengthening, endurance, mobility, gait and balance training, ROM, ADL's, and patient/family training Occupational Therapy for strengthening, endurance, mobility, gait and balance training, ROM, ADL's, and patient/family training Speech Therapy for cognition Social Work for integrated social support and discharge planning Estimated Length of Stay: 10-14 days Discharge Destination: home Rehab Prognosis: Good Chief Complaint Back pain History of Present Illness Date of Admission: 03/23/2025 Informant(s): Patient, Care Team / Chart History of Present Illness: Gracie Lemons is a 75 y.o. male s/p right lateral T7/8 discectomy and chest tube placement, status post chest tube removal with post operative RLE weakness. Neurosurgery believes that his RLE weakness is 2/2 to plexopathy, possibly 2/2 to positioning during surgery. The patient has a hx of pulmonary fibrosis which likely complicated by post-op course- the patient had atelectasis and collapse of portions of the RLL which warranted the chest tube. This was removed prior to discharge from the acute care hospital. The patient was evaluated by PT/OT and was deemed to be an appropriate inpatient rehabilitation hospital candidate. The patient was transferred to the IRF on 03/23. The patient was seen in his room this morning. He denies any acute pain, including in his back. He endorses RLE weakness only since the surgery, he had no weakness prior to the surgery. He endorses chronic R rotator cuff problems. He denies any CP or SOB. He had a BM yesterday. He denies any new paresthesias in the LE. Review of Systems General: - fever, - chills HEENT: - headache, - vision changes Resp: - shortness of breath, - cough Cardiac: - chest pain, - leg swelling GI: - constipation, - nausea : - urinary retention, - urinary incontinence MSK: - joint pain, - joint swelling Neuro: - confusion, - weakness Psychological: - depression, - anxiety Skin: - rashes, - wounds Allergies I have reviewed the patient's allergies. Tylenol [acetaminophen] and Penicillins Medications I have reviewed the patient's medication list and performed a complete reconciliation. Home Medications: Prior to Admission medications Not on File Current HOSPITAL Medications: Scheduled Meds: ascorbic acid (vitamin C) 250 mg Oral Daily atorvastatin 20 mg Oral Nightly clopidogreL 75 mg Oral Daily cyclobenzaprine 10 mg Oral TID donepeziL 5 mg Oral Nightly enoxaparin 40 mg Subcutaneous Daily [START ON 03/25/2025] ergocalciferol 50,000 Units Oral Q7 Days ezetimibe 10 mg Oral Nightly ferrous sulfate 325 mg Oral Daily with breakfast gabapentin 300 mg Oral Nightly guaiFENesin 600 mg Oral Q12H lispro insulin 0-15 Units Subcutaneous at bedtime insulin lispro 0-30 Units Subcutaneous TID AC levothyroxine 50 mcg Oral QAM AC lisinopriL 20 mg Oral Daily metoprolol tartrate 50 mg Oral BID multivitamin 1 tablet Oral Daily nortriptyline 25 mg Oral Nightly pantoprazole 40 mg Oral Daily vitamin E 400 Units Oral Daily Continuous Infusions: PRN Meds: Past Medical History No past medical history on file. Past Surgical History No past surgical history on file. Family History No family history on file. Social History Social History: Demographics Is the patient of , /a, or [place]ian origin?: No, not of , /a, or [place]ian origin What is the patient's race?: White Marital Status: Pre Hospital Living Setting: Home Pre-Hospital Lives With: Family/Relatives Pre-Hospital Vocation Category: Retired for Age Support System Family/Caregiver Contact Information Family/Caregiver Contact: Idalia Medina Relationship: spouse Contact Support Support System: Spouse, Children Type of Support Available: 07/01 Patient/Family Rehab Goal: Home Functional History: Functional Assessment Bladder Continence Pre-Hospital Bladder Continence: (presumed continent) Current Bladder Continence: (presumed inconetinent) Device(s) used: condum cath Medication: No Bowel Continence Date of Last BM: 03/22/25 Pre-Hospital Bowel Continence: (presumed continent) Current Bowel Continence: (presumed incontinent) Bowel Medication: Yes Medication Type: Senna, miralax Prior Functioning Everyday Activities Self Care: 2 - Needs Some Help Indoor Mobility (Ambulation): 3 - Independent Stairs: 3 - Independent Functional Cognition: 3 - Independent Prior Device Use Manual W/C: No Motorized W/C or Scooter: No Mechanical Lift: No Walker: Yes Orthotics/Prosthetics: No Functional Issues Balance: siting static CG standing static max Strength: RLE weakness Non-FIM Functional Assessment Eating Pre-Morb: Independent Now: Not Evaluated Goal: Independent Grooming/Hygiene Pre-Morb: Independent Now: Min Assist/Contact Guard Goal: Independent Upper Ext Dressing Pre-Morb: Independent Now: Min Assist/Contact Guard Goal: Independent Lower Ext Dressing Pre-Morb: Independent Now: Total Assist Goal: Independent Bladder Management Pre-Morb: Independent Now: Total Assist Goal: Independent Bowel Management Pre-Morb: Independent Now: Total Assist Goal: Independent Bed Mobility Pre-Morb: Independent Now: Mod Assist Goal: Independent Supine-Sit Pre-Morb: Independent Now: Mod Assist Goal: Independent Sit-Stand Pre-Morb: Independent Now: Max Assist Goal: Independent Transfer Pre-Morb: Independent Now: Max Assist Goal: Independent Toilet Transfer Pre-Morb: Independent Now: Not Evaluated Goal: Independent Ambulation Pre-Morb: Independent Now: Mod Assist (1-2 steps) Goal: Independent Expression Pre-Morb: Independent Now: Independent Goal: Independent Memory Pre-Morb: Independent Now: Independent Goal: Independent Completed Therapy Evaluations Therapy: PT, OT, [employer]ATE Physical Exam BP 107/69 Pulse (!) 109 Temp 97.8 F (36.6 C) (Oral) Resp 14 Ht 5' 5 Wt 79.3 kg (174 lb 13.2 oz) SpO2 95% BMI 29.09 kg/m General: no acute distress, awake, conversant HEENT: EOMI grossly, normal hearing Respiratory: normal respiratory effort, no respiratory distress Cardiovascular: extremities well-perfused, no peripheral edema Abdomen: non-tender, non-distended Musculoskeletal: grossly normal ROM in extremities, no joint swelling, 3/5 R ankle dorsiflexion/plantar flexion, 5/5 L ankle strength, Limited R shoulder flexion 2/2 chronic rotator cuff pathology, 5/5 L shoulder flexion Neuro: alert, speech fluent & comprehensible Psychiatric: pleasant, cooperative, flat affect Skin: normal turgor, no rashes visualized MENTAL STATUS: Alertness, Attention & Concentration: Normal Communication: Normal Orientation: Normal Memory, Recent & Remote: Normal CRANIAL NERVES: II, III: Pupils: PER III, IV, : Eye Movements: Normal (EOMI, No ptosis, No nystagmus) V - Facial Sensation: Normal VII: Face Symmetry & Strength: Normal VIII - Hearing: Normal IX, X - Palate:: Normal XI - Shoulder Shrug: Normal XII - Tongue Protrusion: Normal SENSATION: Light Touch: Normal Laboratory Data I have reviewed the patient's relevant labs. Lab Results Component Value Date ALBUMIN 3.1 (L) 03/24/2025 ALT 25 03/24/2025 AST 33 03/24/2025 BUN 5 (L) 03/24/2025 CALCIUM 9.1 03/24/2025 CL 100 03/24/2025 CREATININE 0.81 03/24/2025 GLUCOSE 161 (H) 03/24/2025 HCT 40.8 (L) 03/24/2025 HGB 13.0 (L) 03/24/2025 MG 1.9 03/24/2025 PLT 555 (H) 03/24/2025 K 4.2 03/24/2025 NA 136 03/24/2025 WBC 10.91 03/24/2025 Diagnostic Studies I have reviewed the patient's relevant imaging. MRI & CT Studies: (last 6 months) MR Cervical Spine With And Without Contrast Final Result by User, System Default (03/22/20251456) IMPRESSION: Significant motion degraded examination. Multilevel degenerative changes in the cervical spine appear overall similar to prior MRI accounting for motion artifact. Mild central canal stenosis C5-C6 and C6-7. No definite signal abnormality within the cervical spinal cord. Lumbar Spine With And Without Contrast Final Result by User, System Default (03/22/20251456) IMPRESSION: Again seen are postoperative changes of posterior fusion hardware from L3-S1 and laminectomy changes from L3 to L5. Degenerative changes appear unchanged from August 2024 examination. No significant central canal stenosis. Severe neural foraminal narrowing bilaterally at L2-L3 and on the left at L5-S1. I personally viewed and interpreted these images and I have reviewed and approved this report. Brain Without Contrast Final Result by User, System Default (03/22/20251456) IMPRESSION: No evidence of acute infarct or mass effect. Remote insult in the right cerebral hemisphere with adjacent craniectomy. Remote right cerebellar infarcts. Chest Thorax With Contrast Final Result by User, System Default (03/22/20251456) IMPRESSION: 1. Small right hydropneumothorax. Complete atelectasis of the right lower lobe and significant partial atelectasis of the right upper and middle lobes do both to compressive atelectasis from the effusion as well as obstructive mucous plugging and postobstructive atelectasis. A right thoracostomy tube is outside the thoracic cavity terminating in the sixth rib osteotomy with a clearly layer of subpleural fat between the tube tip in the pleural effusion. The pneumothorax is loculated anteriorly and likely will not be seen on single view AP radiograph because of its location/positioning. 2. Segmental atelectatic changes in the left lung. 3. Small fluid collection along the right T7-T8 vertebral bodies with internal foci of gas. Small foci of gas are also seen in the adjacent right pleural effusion and thecal canal. Findings are all presumably postoperative given recent surgery on March 11, 2025. I personally viewed and interpreted these images and I have reviewed and approved this report. Thoracic Spine Without Contrast Final Result by User, System Default (03/22/2025 1457) IMPRESSION: Interval right lateral T7-T8 discectomy. Previously visible dorsal disc osteophyte is no longer seen with decompression of the spinal canal. No thoracic spinal cord signal abnormality. Cervical Spine Without Contrast Final Result by User, System Default (03/22/2025 1457) IMPRESSION: Multilevel degenerative changes with severe left-sided and mild to moderate right-sided neuroforaminal narrowing at C3-C4, moderate to severe right-sided and moderate left-sided neural foraminal narrowing at C4-C5, and moderate right-sided neuroforaminal narrowing at C5-C6 and C6-C7. No high-grade spinal canal stenosis. No focal cervical cord lesions. No suspicious osseous lesions. Devendra Altman M.D. This report has been electronically signed and verified by the Radiologist whose name is printed above. This report contains privileged and confidential information and is intended solely for the use of the individual or entity to which it is addressed. If you are not the intended recipient of this report, you are hereby notified that any copying, distribution, dissemination or action taken in relation to the contents of this report is strictly prohibited and may be unlawful. If you have received this report in error, please notify the sender immediately at [phone] and permanently delete the original report and destroy any copies or printouts. XR [facility] Chest Crossfire - Portable Result Date: 03/18/2025 EXAM: XR CHEST 1 VIEW PORTABLE, 03/18/2025 12:21 PM COMPARISON: XR CHEST 1 VIEW PORTABLE March 18, 2025 CLINICAL INDICATIONS: post chest tube removal FINDINGS: (Adequate technique) Implanted Devices: Interval removal of the right-sided pleural catheter Thorax: Trace right-sided pleural effusion. No pneumothorax. Bandlike opacity in the right mid lung suggestive of atelectasis. Bibasilar atelectasis. Stable right sixth rib deformity. IMPRESSION: No pneumothorax status post pleural catheter removal. Trace right-sided pleural effusion. I personally viewed and interpreted these images and I have reviewed and approved this report. [facility] Chest Crossfire - Portable Result Date: 03/18/2025 EXAM: XR CHEST 1 VIEW PORTABLE, 03/18/2025 09:22 AM COMPARISON: March 17, 2025 CLINICAL INDICATIONS: eval chest tube RELEVANT CLINICAL HISTORY: FINDINGS: (Adequate technique) Implanted Devices: Stable right pigtail pleural drain. Thorax: Suspected small/trace residual right pleural effusion with residual volume loss at the right lung base. No pneumothorax or other acute change compared to the prior exam. IMPRESSION: No significant change from the previous examination Hip Right 2-3 Views (Routine) Result Date: 03/18/2025 EXAM: XR HIP RIGHT 2-3 VIEWS, 03/18/2025 12:20 PM COMPARISON: No prior studies available for comparison. CLINICAL INDICATIONS: hip pain leg weakness RELEVANT CLINICAL HISTORY: FINDINGS: 3 images obtained. Soft Tissue: There is no obvious soft tissue swelling. Extensive vascular calcifications. Bone: No acute osseous abnormality is identified. Partially visualized spinal fusion hardware within the lumbosacral spine. Hip: The hip joint is anatomically aligned. IMPRESSION: No acute osseous abnormality. T TUBE PLACEMENT Result Date: 03/17/2025 EXAM: IR CHEST TUBE PLACEMENT, 03/16/2025 16:39 PM CLINICAL INDICATIONS: 75-year-old male with a right pleural fluid collection, here for drain placement. MEDICATIONS: 4:09 PM 03/16/25 fentaNYL (SUBLIMAZE) injection 0-300 mcg Ordered and Given 25 mcg Given Rate: 0 Route: Intravenous; 4:09 PM 03/16/25 Midazolam (VERSED) injection 0-10 mg Ordered and Given 0.5 mg Given Rate: 0 Route: Intravenous; 4:16 PM 03/16/25 fentaNYL (SUBLIMAZE) injection 0-300 mcg Given 25 mcg Given Rate: 0 Route: Intravenous; 4:16 PM 03/16/25 Midazolam (VERSED) injection 0-10 mg Given 0.5 mg Given Rate: 0 Route: Intravenous; 4:27 PM 03/16/25 Midazolam (VERSED) injection 0-10 mg Given 0.5 mg Given Rate: 0 Route: Intravenous; 4:30 PM 03/16/25 fentaNYL (SUBLIMAZE) injection 0-300 mcg Given 25 mcg Given Rate: 0 Route: Intravenous; OPERATORS: Franci Benoit MD(Attending), Roberto Burton M.D. (Fellow). CONSENT: Following discussion of the risks, benefits and alternatives of the procedure, written informed consent was obtained. SEDATION: I performed Moderate Sedation which included the presence of a nurse that assisted in monitoring the patient's level of consciousness and physiologic status. After administration of sedative medication(s), I spent 28 minutes of continuous [id number] time with the patient. COMPARISON: CT chest March 16, 2025 TIME OUT: Prior to the procedure a time out was performed in the presence of the patient and all personnel involved in this case. The patient identity, procedure type, procedure side/site, and allergies were verified. TECHNIQUE: Position: The patient was transferred to the IR laboratory and positioned left lateral decubitus on the procedure table. The right chest was prepared and draped using maximum sterile barrier technique. This consisted of cap, mask, hand hygiene, sterile gown, sterile gloves, cutaneous antisepsis, and occlusive sterile draping of the field. Time Out: A time out was performed prior to the procedure in the presence of the patient and all personnel involved in the case. The patient's identity, procedure type, procedure side/site, and allergies were verified. Procedure/Findings: Images of the target were saved to the image archive system. Initial sonographic images were obtained demonstrating loculated right-sided fluid collection A 10 cm Yueh centesis needle was advanced using Ultrasound guidance into the collection. Approximately 60 mL of serosanguinous fluid was aspirated from the lesion and sent to the laboratory for culture. A guidewire was then passed through the needle and the tract was dilated over the wire. A 10 Sammarinese M drain was then placed over the wire, and additional images were obtained to confirm positioning of the catheter within the collection. The catheter was sutured to the skin with a single stitch, and connected to a Pleur-evac drain. A total of 100 ml was drained by the time the patient left the department. Post-Procedure: Post-procedure images demonstrate the pigtail of the catheter within the collection. The patient tolerated the procedure well, with no immediate complications. FINDINGS: Loculated right pleural collection with new 10-Sammarinese M drain in place IMPRESSION: Status post ultrasound guided insertion of a 10 Fr right chest tube. PLAN: Initially recommend chest tube to suction, with remainder of care per primary team. Franci Benoit MD was in the room and participated during all dawson portions of this procedure. I personally viewed and interpreted these images and I have reviewed and approved this report. [facility] Chest Crossfire - Portable Result Date: 03/17/2025 EXAM: XR CHEST 1 VIEW PORTABLE, 03/17/2025 06:33 AM COMPARISON: XR CHEST 1 VIEW PORTABLE March 16, 2025 CLINICAL INDICATIONS: s/p chest tube placement RELEVANT CLINICAL HISTORY: FINDINGS: (Adequate technique) Implanted Devices: New right pigtail chest tube terminates overlapping the lateral lower lung. Thorax: Significantly decreased right pleural effusion. Improved bilateral lower lung atelectasis. No pneumothorax. Stable cardiomediastinal silhouette. Right sixth rib partial defect, stable. IMPRESSION: 1. Significantly decreased right pleural effusion with new pigtail chest tube placement. No pneumothorax. 2. Improved bilateral lower lung atelectasis. I personally viewed and interpreted these images and I have reviewed and approved this report. RAL PROCEDURE Result Date: 03/16/2025 Franci Benoit MD 03/17/2025 9:52 AM VASCULAR INTERVENTIONAL RADIOLOGY PROCEDURE NOTE PROCEDURE INDICATION: Gracie Lemons is a 75 year old male who presents with a right pleural collection here for chest tube placement. PROCEDURE PERFORMED: Ultrasound guided right chest tube placement. FINDINGS: Loculated collection in the right pleural here, with new 10Fr M drain. 100ml blood tinged serous fluid aspirated. PLAN: Keep to suction for now, rest of chest tube care per primary team. If needed, recommend thoracic surgery or pulmonology consult for management. Roberto Burton MD 03/16/2025 4:42 PM PHOTOGRAMMETRY AIRPLANE PILOT(S): Dr. Franci Benoit (Attending), Dr. Roberto Burton (Resident) CONSENT: Informed consent was obtained prior to the procedure after discussion of the risks, benefits, and alternatives of the procedure, and expected procedure outcomes were discussed with the patient and/or hr representative. The consent document was placed in chart. DID THIS PROCEDURE REQUIRE A UNIVERSAL PROTOCOL?: Yes. [place] Protocol is required. Preprocedure verification is complete. Patient verified and consents confirmed, procedure sites identified and marked as appropriate, timeout called before the start of the procedure. SPECIMEN(S) REMOVED: 60ml blood tinged serous fluid. DISPOSITION OF SPECIMEN(S): Microbiology and Cytology ESTIMATED BLOOD LOSS: Less than 5 mL COMPLICATIONS: None immediate ADDITIONAL: Please refer to the report generated in the IMAGING section of the electronic medical record for additional procedure details. Thank you for allowing Interventional Radiology to participate in this patient's care. XR [facility] Chest Crossfire - Portable Result Date: 03/16/2025 EXAM: XR CHEST 1 VIEW PORTABLE, 03/16/2025 02:27 AM COMPARISON: March 15, 2025 CLINICAL INDICATIONS: Interval eval for R pleural effusion RELEVANT CLINICAL HISTORY: FINDINGS: (Adequate technique) Implanted Devices: None Thorax: Moderate right pleural effusion, increased from prior. Similar patchy atelectasis at the left lung base. IMPRESSION: Increasing size of moderate pleural effusion. OR Abdomen AP Result Date: 03/16/2025 EXAM: XR ABDOMEN 1 VIEW PORTABLE, 03/16/2025 02:27 AM COMPARISON: XR ABDOMEN 1 VIEW PORTABLE March 15, 2025 CLINICAL INDICATIONS: Interval eval FINDINGS/IMPRESSION: Tubes: None. Bowel gas pattern: Persistent gaseous distention of both small and large bowel suggestive of ileus, similar since March 15, 2025. No visible free air. Lumbosacral spinal fusion hardware. OR Abdomen AP Result Date: 03/15/2025 EXAM: XR ABDOMEN 1 VIEW PORTABLE, 03/15/2025 11:45 AM COMPARISON: Comparison study from 03/14/2025 CLINICAL INDICATIONS: Interval eval FINDINGS: Tubes: None. Bowel gas pattern: There is significant gaseous distention and dilation of multiple loops of small and large suggestive of ileus. The transverse colon is dilated up to maximum of 9.1 cm, previously 6.8 cm. Small bowel loops are dilated up to maximum of 4.4 cm, previously 2.9 cm Abnormal calcifications/Radiopacities: 0.9 cm round calcification in the mid abdomen to the right of the lumbar spine at the level of L3-4 which is indeterminate. Punctate sclerotic calcifications are seen with few tiny phleboliths in the pelvis. Bones: Internal fixation hardware in the lower lumbar spine. Degenerative changes of lumbar spine. Other findings: None. IMPRESSION: 1. Progressive gaseous distention and dilation of small and large bowel, suggestive of ileus. 2. No gross free air. I personally viewed and interpreted these images and I have reviewed and approved this report. [facility] Chest Crossfire - Portable Result Date: 03/15/2025 EXAM: XR CHEST 1 VIEW PORTABLE, 03/15/2025 03:09 AM COMPARISON: XR CHEST 1 VIEW PORTABLE March 14, 2025 CLINICAL INDICATIONS: pulmonary edema f/u RELEVANT CLINICAL HISTORY: FINDINGS: (Adequate technique) Mildly decreased size of right pleural effusion. No other change. IMPRESSION: No pulmonary edema. Mildly decreased size of right pleural effusion. Lumbar Spine With And Without Contrast Result Date: 03/15/2025 EXAM: MRI SPINE LUMBAR WITH AND WITHOUT CONTRAST, 03/14/2025 23:25 PM COMPARISON: August 25, 2024 MRI spine, x-ray January 11 2025, multiple additional exams were reviewed CLINICAL INDICATIONS: 75 years Male acute lower ext weakness RELEVANT CLINICAL HISTORY: TECHNIQUE: A series of sagittal and axial multisequence images of the lumbar spine were obtained both before and after intravenous administration of gadolinium-based contrast using standard protocol. Study was performed at 1.5 Gina. CONTRAST: Gadopiclenol SOLN 1-25 mL; Route of Administration: Intravenous; Dose: 8.2 mL. FINDINGS: There is mild to moderate motion artifact on several sequences. Again seen are posterior fusion hardware from L3 to S1 is again noted, with associated laminectomy changes from L3 to L5. Hardware would be better assessed on radiograph/CT. There is a surgical artifact related to the surgical hardware. History report fracture of the right-sided dhruv just above the L5 set screw is not well evaluated on MRI and is better assessed on CT or radiographs. Alignment is unchanged with of L2 over L3 and L4 over L5, and grade 1 anterolisthesis of L3 over L4 and L5 over S1. Leftward curvature of the lumbar spine (scoliosis). No abnormal intrathecal enhancement No acute compression fracture deformity. No focal suspicious osseous lesions in the lumbar spine. Multilevel degenerative disc changes desiccation and variable height loss most pronounced at the L2-L3 level with is severe height loss. Edema in the paraspinal soft tissues is noted. Again seen is focal T2 hyperintense fluid in the laminectomy bed, likely related to chronic postoperative collection. No definite signal abnormality within the conus. The cauda equina appears unremarkable. Atrophy of the bilateral iliopsoas muscles, with interval progression compared to August 25, 2024. Degenerative changes of the sacroiliac joints. [id number] ANALYSIS: T12-L1: Circumferential mild disc bulge, moderate facet arthropathy, and ligamentum flavum infolding. No significant significant spinal canal or foraminal narrowing. L1-L2: Minimal retrolisthesis, left circumferential disc bulge, left lateral recess narrowing. Moderate facet arthropathy and ligamentum flavum changes. No significant central canal stenosis there is moderate right and moderate to severe left neural foraminal narrowing. L2-L3: Disc desiccation with severe height loss. There is severe disc bulge comment dorsal disc osteophyte and advanced facet arthrosis and ligamentum flavum hypertrophy. Fusion hardware at this level. No significant central canal stenosis. Bilateral moderate lateral recess narrowing. Severe bilateral foraminal narrowing. L3-L4: Disc osteophyte complex. Canal decompressed by prior laminectomy. Hardware present. Moderate bilateral foraminal narrowing. L4-L5: Moderate disc bulge with grade 1 anterolisthesis and moderate disc bulge and facet hypertrophic changes. Canal decompressed by laminectomy. Facet arthropathy. Moderate left and mild right foraminal narrowing. L5-S1: Circumferential disc bulge. Canal decompressed by laminectomy. Hardware present. Facet arthropathy. Severe left and moderate right foraminal narrowing. Overall degenerative and postoperative findings are stable compared to August 25, 2024. IMPRESSION: Again seen are postoperative changes of posterior fusion hardware from L3-S1 and laminectomy changes from L3 to L5. Degenerative changes appear unchanged from August 2024 examination. No significant central canal stenosis. Severe neural foraminal narrowing bilaterally at L2-L3 and on the left at L5-S1. I personally viewed and interpreted these images and I have reviewed and approved this report. Cervical Spine With And Without Contrast Result Date: 03/14/2025 EXAM: MRI SPINE CERVICAL WITH AND WITHOUT CONTRAST, 03/14/2025 23:26 PM COMPARISON: MRI SPINE CERVICAL WITHOUT CONTRAST February 11, 2025 CLINICAL INDICATIONS: 75 years Male acute R> left leg weakness RELEVANT CLINICAL HISTORY: TECHNIQUE: A series of sagittal and axial multisequence images of the cervical spine were obtained both before and after intravenous administration of gadolinium-based contrast using standard protocol. Study was performed at 1.5 Gina. CONTRAST: Gadopiclenol SOLN 1-25 mL; Route of Administration: Intravenous; Dose: 8.2 mL. FINDINGS: There is moderate to severe motion artifact on several sequences degrading assessment. There is reversal of cervical lordosis and stepwise grade 1 anterolisthesis of C3 on C6. No definite focal suspicious osseous lesions cervical spine. No evidence of compression fracture deformity. Prevertebral and Cervical soft tissues are grossly unremarkable. Multilevel degenerative disc changes with desiccation and variable height loss. No definite signal abnormality within the cervical spinal cord. No definite abnormal intrathecal enhancement. Craniocervical junction is unremarkable. Degenerative changes of overall similar to prior examination although suboptimally evaluated due to significant motion artifact. By levels: C1-C2: Atlanto-axial relationship is within normal limits. C2-C3: No disc herniation, cervical stenosis, or foraminal stenosis. Bilateral facet arthrosis. C3-C4: Dorsal disc osteophyte complex without significant central canal stenosis. Uncovertebral spurring and facet arthrosis contributes to mild right and severe left neural foraminal narrowing. C4-C5: Dorsal disc osteophyte complex without significant central canal stenosis. Uncovertebral spurring contributes to severe right and moderate left neural foraminal narrowing. C5-C6: Posterior disc aspect complex and posterior ligamentous thickening contributes to mild central canal stenosis. Uncovertebral spurring and facet arthrosis contributes to moderate right and mild left neural foraminal narrowing. C6-C7: Dorsal disc osteophyte complex and posterior ligament thickening contributes to mild central canal stenosis. Uncovertebral spurring with estimated moderate to severe right and moderate left neural foraminal narrowing. C7-T1: No disc herniation, cervical stenosis, or foraminal stenosis. IMPRESSION: Significant motion degraded examination. Multilevel degenerative changes in the cervical spine appear overall similar to prior MRI accounting for motion artifact. Mild central canal stenosis C5-C6 and C6-7. No definite signal abnormality within the cervical spinal cord. Brain Without Contrast Result Date: 03/14/2025 EXAM: MRI BRAIN WITHOUT CONTRAST, 03/14/2025 23:25 PM COMPARISON: MRI Brain W/WO Contrast=H October 28, 2005, MRI Brain W/WO Contrast=H January 17, 2005, MRI Brain W/WO Contrast=H October 10, 2004, CT Head W/O Contrast=H October 29, 2005 CLINICAL INDICATIONS: 75 years Male acute lower ext weakness RELEVANT CLINICAL HISTORY: TECHNIQUE: A series of multisequence, multiplanar images of the brain are obtained without intravenous contrast. Study was performed at 1.5 Gina. FINDINGS: There is mild to moderate motion artifact on several sequences. Evidence of prior right-sided craniectomy. There is encephalomalacia and gliosis in the right frontal and temporal lobes as well as involving the right insula with ex vacuo dilatation of the right lateral ventricle. Remote right cerebellar infarcts. Patchy FLAIR hyperintensities in the periventricular white matter, nonspecific but could relate to chronic small vessel ischemic disease. No acute intracranial hemorrhage. No extracerebral collection. Sellar and parasellar structures are unremarkable. Again noted is a ex vacuo dilatation of the right lateral ventricle. Bilateral cataract surgery implants. Mucosal thickening with air-fluid level in the right maxillary sinus. IMPRESSION: No evidence of acute infarct or mass effect. Remote insult in the right cerebral hemisphere with adjacent craniectomy. Remote right cerebellar infarcts. [facility] Chest Crossfire - Portable Result Date: 03/14/2025 EXAM: XR CHEST 1 VIEW PORTABLE, 03/14/2025 15:41 PM COMPARISON: March 13, 2025 CLINICAL INDICATIONS: post chest tube removal RELEVANT CLINICAL HISTORY: FINDINGS: (Adequate technique) Patient is rotated to the right. Chest tube is removed. Enlarging right effusion. Stable bilateral consolidations. Stable cardiomediastinal silhouette. No interval bone findings. IMPRESSION: Increased right effusion. Known anterior pneumothorax identified on same day chest CT is not seen on radiograph. Stable bilateral consolidative opacities correlating with known predominantly atelectatic changes throughout the lungs. OR Abdomen AP Result Date: 03/14/2025 EXAM: XR ABDOMEN 1 VIEW PORTABLE, 03/14/2025 15:41 PM COMPARISON: No prior studies available for comparison. CLINICAL INDICATIONS: ileus/obstruction evaluation FINDINGS: Tubes: None. There is significant gaseous distention and dilatation of multiple small and large bowel loops in the abdomen and pelvis. Pattern is suggestive of ileus. No obvious evidence of free air. Moderate right colonic fecal burden. Spinal fixation hardware at the lower lumbar spine. IMPRESSION: Diffuse small bowel and colonic dilatation, suggestive of ileus. Chest Thorax With Contrast Result Date: 03/14/2025 EXAM: CT CHEST WITH CONTRAST, 03/13/2025 22:35 PM COMPARISON: CT Pulmonary Angiogram=C July 17, 2012, XR CHEST 1 VIEW PORTABLE March 13, 2025 CLINICAL INDICATIONS: post-op evaluation TECHNIQUE: CT images of the chest were obtained following administration of intravenous contrast. CONTRAST: iohexol (OMNIPAQUE) 350 MG/ML injection 1-171 mL; Route of Administration: Intravenous; Dose: 50 mL. FINDINGS: Lungs and Pleura: The right lower lobe is completely atelectatic with partial atelectasis of the right upper and middle lobes, secondary to mucous plugging and postobstructive atelectasis as well as compressive atelectasis from the small adjacent effusion. Few small foci of gas in the medial right pleural effusion are presumably postoperative given the retropleural approach for the discectomy. Small anterior pneumothorax. The small right thoracostomy tube enters the posterior lateral right sixth rib ostomy. The tip appears extrapleural, terminating in the intra-rib space with subpleural fat between the tip of the chest tube in the pleural effusion, series 2 image 31. Partial atelectasis in the lingula and left lower lobe. Tracheobronchial tree: Exam is partially performed during expiration. There is excessive collapse of the tracheobronchial tree with narrowing of the distal trachea to 4 mm in AP diameter. For comparison, during inspiration the upper trachea measures 12.7 mm in AP diameter. There is also excessive narrowing of the proximal bronchi. Secretions in the distal trachea and areas of mucous plugging in the right lower lobe bronchi. Mediastinum/Alexus: No mediastinal or hilar lymphadenopathy. Axilla and Supraclavicular Region: No axillary or supraclavicular adenopathy. Cardiovascular: The cardiac chambers and pericardium are within normal limits. Multivessel coronary artery calcifications. Few scattered aortic calcifications. Bovine arch, an anatomic variant. Upper Abdomen: Hepatic steatosis. The upper abdominal contents are otherwise unremarkable. Bones and Soft Tissue: No suspicious osseous lesion. Postsurgical changes to the lateral right aspect of the T7 and T8 vertebral bodies secondary to discectomy and partial corpectomy. Small fluid and gas collection in the space with additional foci of gas the thecal canal, presumably postoperative given surgical date of March 11, 2025. IMPRESSION: 1. Small right hydropneumothorax. Complete atelectasis of the right lower lobe and significant partial atelectasis of the right upper and middle lobes do both to compressive atelectasis from the effusion as well as obstructive mucous plugging and postobstructive atelectasis. A right thoracostomy tube is outside the thoracic cavity terminating in the sixth rib osteotomy with a clearly layer of subpleural fat between the tube tip in the pleural effusion. The pneumothorax is loculated anteriorly and likely will not be seen on single view AP radiograph because of its location/positioning. 2. Segmental atelectatic changes in the left lung. 3. Small fluid collection along the right T7-T8 vertebral bodies with internal foci of gas. Small foci of gas are also seen in the adjacent right pleural effusion and thecal canal. Findings are all presumably postoperative given recent surgery on March 11, 2025. I personally viewed and interpreted these images and I have reviewed and approved this report. Thoracic Spine Without Contrast Result Date: 03/13/2025 EXAM: MRI SPINE THORACIC WITHOUT CONTRAST, 03/13/2025 22:09 PM COMPARISON: MRI SPINE THORACIC WITHOUT CONTRAST February 11, 2025 CLINICAL INDICATIONS: 75 years Male postop weakness RELEVANT CLINICAL HISTORY: TECHNIQUE: A series of sagittal and axial multisequence images of the thoracic spine were obtained without intravenous contrast using standard protocol. Study was performed at 1.5 Gina. FINDINGS: There is motion artifact on several sequences most pronounced on the axial T1 and T2 images. Interval postoperative changes related to right lateral T7-T8 discectomy. There is T2 hyperintensity along the right T7-T8 vertebral bodies. Postoperative fluid in the adjacent right paraspinal region There is a right pleural effusion with adjacent atelectasis. Previously visualized disc osteophyte at the T7-T8 is no longer seen with decompression of the spinal canal. Persistent indentation on the anterior aspect of the thecal sac. Alignment is normal. Remaining vertebral body heights are unremarkable. No evidence of acute compression fracture deformity. Mild degenerative disc changes. There is a disc osteophyte T6-T7 and contributes to moderate central canal stenosis. No definite T2 hyperintense abnormality within the thoracic spinal cord. IMPRESSION: Interval right lateral T7-T8 discectomy. Previously visible dorsal disc osteophyte is no longer seen with decompression of the spinal canal. No thoracic spinal cord signal abnormality. [facility] Chest Crossfire - Portable Result Date: 03/13/2025 EXAM: XR CHEST 1 VIEW PORTABLE, 03/13/2025 11:20 AM COMPARISON: March 11, 2025 CLINICAL INDICATIONS: new coughing, chest tube RELEVANT CLINICAL HISTORY: FINDINGS: (Adequate technique) Right thoracostomy tube is difficult to see. It is placed low lung the lateral right thorax and terminates in the right midlung. Increased small right effusion. Increased bilateral atelectasis. No pneumothorax. Stable cardiomediastinal silhouette. No interval bone findings. IMPRESSION: Right thoracostomy tube is difficult to see. No pneumothorax. Increased small right effusion and atelectasis. [facility] Chest Crossfire - Portable Result Date: 03/11/2025 EXAM: XR CHEST 1 VIEW PORTABLE, 03/11/2025 19:20 PM COMPARISON: July 17, 2012. CLINICAL INDICATIONS: postop, chest tube placement, evaluate for hemo/pneumothorax RELEVANT CLINICAL HISTORY: FINDINGS: (Adequate technique) Implanted Devices: None Thorax: Bibasilar atelectatic foci. The mid and upper lung zones are otherwise clear. No pleural effusions. No pneumothorax. The cardiomediastinal silhouette is within normal limits. IMPRESSION: 1. Bibasilar atelectatic foci. 2. The lungs are otherwise clear. *INTUBATION Result Date: 03/11/2025 CHICA Salcedo 03/11/2025 3:01 PM *INTUBATION Date/Time: 03/11/2025 2:01 PM Authorized by: Luyc No MD Performed by: CHICA Salcedo GENERAL STAFF INFORMATION: Patient location during procedure: OR Room: [facility] No anticipated increased risk of difficult airway INDICATIONS AND PATIENT CONDITION: Sedation level: general anesthesia Patient position: supine Preoxygenated: yes Preoxygenation method: bag mask Mask difficulty assessment: 2 - moderate Indication(s) for intubation: general anesthesia FINAL AIRWAY DETAILS: Final airway type: endotracheal airway Final airway difficulty assessment: airway not difficult Successful airway: standard ETT size: 7.0 mm Surgical Airway Tube Type: endotracheal tubeCuffed: yes Endotracheal tube insertion site: oral Successful intubation technique: video laryngoscopy Video Laryngoscope: Parra Blade size: #3 Facilitating devices/methods: intubating stylet Cormack-Lehane Classification: grade I - full view of glottis Placement verified by: auscultation, CO2 detection and visualization through the cords Tube secured: 22 CM at the teeth Tube Secured with: tape Number of attempts at approach: 2 Ventilation between attempts: spontaneous Number of other approaches attempted: 1 Airway placement result: atraumatic intubation Successful Placement?: Yes OTHER ATTEMPTS: Unsuccessful attempted airways: endotracheal tube Unsuccessful attempted endotracheal techniques: video laryngoscopy Medication administered at: 03/11/2025 2:01 PM Signed: Rogelio Espinosa MD Physical Medicine & Rehabilitation [facility] 03-24-2025 Consult note Formatting of th is note is different from the original. Inpatient Rehab Physical Therapy - Evaluation and Treatment Note PT Time Calculation Start Time: 914 Stop Time: 1014 Time Calculation (min): 60 min PT Individual Therapy Min: 60 One unit of therapeutic activity billed for education provided throughout session on the benefits/expectations of PT, necessary safety precautions and considerations, importance of mobility and upright activity in recovery and prevention of secondary impairment, expectations and course of progression during IPR stay, as well as proper technique and performance of all functional transfers as completed in session following assessment. Problem List / Diagnosis Problem List[1] Physical Therapy Assessment History: The following factors influence the patient's participation in the PT plan of care: Personal Factors: Limited Baseline Mobility, Decreased Insight, Age, Social Barriers Environmental Factors: Steps to enter home The following co-morbidities (from this admission or prior) influence the patient's participation in this plan of care: see H&P T7/T8 discectomy 2/2 thoracic spinal stenosis RLE weakness Parkinsonian features RAFAEL Dementia HTN Hyperthyroidism GERD HLD Sacrococcyx contact irritant dermatitis Hx meningioma resection Number of History elements affecting this patient's PT plan of care: 3 or more Examination of Body Systems: The patient presents with: Musculoskeletal impairments: Strength, Pain, Functional Endurance Neurologic Impairments: Coordination, Balance, Pain, Vision Cardiopulmonary Impairments: Activity Tolerance Integumentary Impairments: Skin Integrity Other Impairments: Psychological Health These impairments result in limitations of Gait, Functional Transfers, Stair-Climbing, Safety, Safety Awareness, Wheelchair Mobility, Activity Tolerance, Insight. These impairments result in restrictions of Household mobility, Community mobility, Leisure activities. Number of Body Systems elements affecting this patient's PT plan of care: 3 or more. Clinical Presentation: The patient's clinical presentation for this PT evaluation is with unstable and unpredictable characteristics as evidenced by current PT documentation. Therapy Precautions Orthotic Devices: No Weight Bearing Status: WFL General Rehab Precautions: Fall Risk, Back Vision Current Vision: Wears glasses only for reading Strength Assessment Strength RLE R Hip Flexion: 3/5 R Knee Flexion: 3/5 R Knee Extension: 3/5 R Ankle Dorsiflexion: 3/5 R Ankle Plantar Flexion: 4/5 Strength LLE L Hip Flexion: 3+/5 L Knee Flexion: 4/5 L Knee Extension: 4/5 L Ankle Dorsiflexion: 3+/5 L Ankle Plantar Flexion: 4+/5 Coordination RLE Assessment: X supine heel on luna: unable to accomplish movement JAQUELINE (Rapid Alternating Movement)-reciprocal toe tapping on floor: moderate difficulty-arrhythmic movements, increased speed decreases performance LLE Assessment: X supine heel on luna: severe difficulty-significant unsteadiness, extraneous movements noted JAQUELINE (Rapid Alternating Movement)-reciprocal toe tapping on floor: moderate difficulty-arrhythmic movements, increased speed decreases performance Balance Picking Up Object: Reason if not Attempted: Safety concerns Sitting Balance - Static: Supervision or Touching Assistance (SBA/CGA sitting EOB) Loss of Balance - Sitting Static: intermittent Sitting Balance - Dynamic: Supervision or Touching Assistance (CGA sitting EOB) Loss of Balance - Sitting Dynamic: intermittent Standing Balance - Static: Dependent and/or 2 Person Assist (Mod Ax2) Book Cleaner - Standing Static: wheeled walker Loss of Balance- Standing Static: anterior Standing Balance - Dynamic: Dependent and/or 2 Person Assist (Mod to Max Ax2) Book Cleaner - Standing Dynamic: wheeled walker Loss of Balance- Standing Dynamic: multidirectional Skilled Intervention: Pt unable to safely pick pack worker 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 Bed Mobility Roll Left and Right: Assistance Needed: Physical assistance, Adaptive equipment (Mod Ax1) Physical Assistance Level: 26%-50% Lying to Sitting: Assistance Needed: Physical assistance, Adaptive equipment (Max Ax1) Physical Assistance Level: 51%-75% Sit to Lying: Assistance Needed: Physical assistance, Adaptive equipment (Max Ax1) Physical Assistance Level: 51%-75% Transfers Sit to Stand: Assistance Needed: Physical assistance, Adaptive equipment (Max Ax2 with FWW) Physical Assistance Level: Total assistance [id number]: Assistance Needed: Physical assistance, Adaptive equipment (Max Ax2 with FWW) Physical Assistance Level: Total assistance Book Cleaner: wheeled walker, stand assist device (non-powered) Skilled Intervention: Pt completes initial trial of functional transfers with use of FWW needing consistent Max Ax2 for initiation of standing and maintenance of upright/midline posturing. Pt also dependently transfers via use of Sera Steady with pt demonstrating good perormance and stability with device. Toilet Transfer: Assistance Needed: Physical assistance, Adaptive equipment (Max Ax2) Physical Assistance Level: Total assistance Car Transfer: Reason if not Attempted: Safety concerns Book Cleaner: stand assist device (non-powered) (Sera Steady) Gait/Locomotion Walk 10 Feet: Reason if not Attempted: Safety concerns Walk 50 Feet 2 Turns: Reason if not Attempted: Safety concerns Walk 150 Feet: Reason if not Attempted: Safety concerns Walk 10 Feet Uneven: Reason if not Attempted: Safety concerns Assistive Device: wheeled walker Distance: 2 Feet (over even surface) Pattern: step to, R impaired heel strike, L impaired heel strike, R decreased step length, L decreased step length, over reliance on upper extremities, forward flexed, decreased trunk rotation, shuffle, decreased zenon (steps per minute) Gait Loss(es) of Balance: multidirectional Environment/Terrain: open/community environment, multiple distractions Skilled Intervention: Pt ambulates very limited distances over even surface needing Max Ax2 and third person close w/c follow for safety. Pt demos bilat knee instability. Curb Step 1 Step (Curb): Reason if not Attempted: Safety concerns Stair Management 4 Steps: Reason if not Attempted: Safety concerns 12 Steps: Reason if not Attempted: Safety concerns Wheelchair Mobility Wheel 50 Feet 2 Turns: Type of Wheelchair/Scooter: Manual Assistance Needed: Supervision, Adaptive equipment (SBA) Physical Assistance Level: No physical assistance Wheel 150 Feet: Type of Wheelchair/Scooter: Manual Assistance Needed: Physical assistance Physical Assistance Level: Total assistance Wheelchair Mobility Wheelchair distance: 55 Feet Wheelchair Environment/Terrain: open/community environment, multiple distractions Skilled Intervention: Pt able to propel self with use of bilat UEs needing consistent SBA for safety and guidance. Needing increased time and effort. Home Living Obtained Home Living and PLOF info from: Patient, Patient s family member Unable to obtain Home Living and PLOF info on initial eval: Patient is a questionable historian Lives With: Spouse (Idalia) Type of Home: House Home Layout: One level (laundry on main floor. Does not need to go to basement.) Rails on inside stairs: 2 rails Number of stairs inside home: 16 Steps to enter home: Yes Rails to enter home: 1 rail, L rail going up (+ bilateral grab bars on doorframe) Number of stairs to enter home: 3 Bathroom Shower/Tub: Walk-in shower, Main level (3 threshold to enter) Bathroom Toilet: Raised, Main level Bathroom Equipment: Grab bars in shower, Hand-held showerhead, Shower chair, Bedside commode, Toilet seat capacity analyst (toilet safety frame) Mobility Equipment: Cane, Wheeled walker, Rollator (Spare bed has adjustable features (their specific bed is not adjustable)) ADL Equipment: (none) Additional Objective Details - Home Living: Pt was standing to shower prior to admit. All information verified with spouse who is present during session. Pt with incorrect responses at times with self-report of home setup. 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 Pt notes that he has a chronic L foot drop in which he has a L AFO for mobility. He notes that he rarely uses his AFO. Pt notes that following his most recent surgery, he was found to have increased R LE weakness. Pt also explains having a R RTC impairment (chronic). Pt notes that his spouse (Idalia) is also retired and would be available at home 07/01 at discharge. Pt notes that his spouse does have some back issues of her own, but would be able to provide light assistance/care if needed. Pt reports having fallen 12-15 times within the last year he attributes to poor balance. Pt notes that his son and his family live close by and would be able to provide assistance. Physical Therapy Goals Problem: Mobility - Impaired Goal: PT- LTG bed mobility Description: PT - Patient will perform bed mobility with supervision and appropriate AE to improve functional mobility and safety. Outcome: Not Addressed Goal: PT- LTG sit to stand transfer Description: PT - Patient will perform sit to/from stand transfer with minimal assist, moderate assist, approriate device to improve functional mobility and safety. Outcome: Not Addressed Goal: PT- LTG stand-pivot transfer Description: PT - Patient will perform stand-pivot transfer with minimal assist, moderate assist, approriate device to improve functional mobility and safety. Outcome: Not Addressed Goal: PT- LTG car transfer Description: PT - Patient will perform car transfer with minimal assist, moderate assist to improve functional mobility and safety. Outcome: Not Addressed Goal: PT- LTG dynamic balance Description: PT - Patient will perform standing dynamic balance activities with device with minimal assist, moderate assist to improve functional mobility and safety. Outcome: Not Addressed Goal: PT- LTG ambulation Description: PT - Patient will ambulate at least 75+ feet with device with minimal assist, moderate assist to improve functional mobility and safety. Outcome: Not Addressed Goal: PT- LTG stair climbing Description: PT - Patient will ascend and descend 3+ stairs with non-reciprocal technique with 2 rails with minimal assist, moderate assist, 2-person assist to improve functional mobility and safety. Outcome: Not Addressed Goal: PT- LTG wheelchair management Description: PT - Patient will propel and manage wheelchair at least 100+ feet with supervision to improve functional mobility and safety. Outcome: Not Addressed Goal: PT- LTG mobility other Description: PT- Patient and/or caregiver(s) will verbalize and demonstrate adequate understanding of appropriate HEP to improve functional strength and perform program with IND. Outcome: Not Addressed Signs and symptoms of abuse / neglect: No Describe: Justification of medical necessity and intensity of service: Patient will need Physical Therapy (PT) to increase strength and endurance to safely complete transfers and ambulate longer distances. Patient also lacks sufficient balance to carry out ADLs and mobility and to be safe with ambulation and transfers to be able to return to their prior level of function. Patient has decreased sitting and standing balance, which puts patient at a high fall risk. Patient is somewhat impulsive at times putting patient at higher fall risk and needs cues for safety. PT will also work on core strengthening to assist with trunk support and overall activity tolerance. Patient is limited by weakness of bilateral lower extremities that interferes with independence with bed mobility, transfers, gait, and overall daily tasks. Patient is being seen for deficits due to s/p discectomy. Staff will also be monitoring vital signs and skin integrity risks due to decreased mobility. Patient will need to be able to increase their activity tolerance and mobility to return to their prior level of function. Patient is expected to need at least three hours per day, at least five days a week of physical and occupational therapy and will be seen by social service for discharge planning and coordination of family meetings and by recreational therapy for leisure needs and to increase endurance. Patient has decreased strength, balance, decreased transfers, and decreased gait abilities. They lack safety awareness into their deficits. Status is unstable with unpredictable characteristics requiring a high complexity PT eval. Handoff given to primary RN. No past medical history on file. No past surgical history on file. For complete objective data, detailed plan of care and patient education refer to: PT EVALUATION flowsheet, PT TREATMENT flowsheet, patient Plan of Care, Plan of Care progress note, and Patient Education. [1] Patient Active Problem List Diagnosis Status post discectomy [facility] 03-24-2025 Progress note Formatting of t his note might be different from the original. Pt's , Idalia Lemons, called by this RN. was asked if she would be able to bring in pt's home CPAP and list of home medication. confirmed that she would be able to bring in both this morning. POC continued. -T.Emir RN [facility] 03-24-2025 History and physical note [facility] Patient name: Gracie Lemons Date of : 1950 Admission date: 03/23/2025 Physicians: Armando Kohli MD (Family); No ref. provider found (Referring) Gracie Lemons is a 75 y.o. male patient of Armando Kohli MD with history of anemia, BPH, CAD, DM, GERD, HLD, HTN, RAFAEL, and CVA presented to IRF on 03/23/2025 with debility s/p T7-8 discectomy. Debility Impaired Mobility and ADLs Comprehensive Rehab with PT/OT/ST PMR following T7-T8 Discectomy Right Side Weakness Parkinsonian Features T7-8 Discectomy on 03/11 at [facility] with neurosurgery Patient with subsequent Right side weakness Neurology at [facility] believes it to possibly be lumbosacral plexopathy Patient with Parkinsonian features including masked facies, hypophonic speech, cogwheeling rigidity of axial and appendicular muscles, and bradykinesia A referral has been sent to [facility] Trialing Sinemet is not out of the question Continue Flexeril, gabapentin, and nortriptyline Pressure Injury Coccyx, POA Pressure Injury gluteal fold, POA Consult Wound Care Fibrotic Lung Disease Continue Mucinex History of CVA CAD HTN HLD Continue atorvastatin, Plavix, Zetia, lisinopril, and metoprolol Type 2 Diabetes HgbA1C 7.7 in June 2024 Diabetic Diet Sliding Scale Insulin Recommend outpatient follow-up Hypothyroidism Will check TSH and reflex T4 Continue levothyroxine Cognitive Disorder Continue donepezil GERD Continue Protonix Vitamin D Deficiency Continue Supplementation RAFAEL CPAP ordered, refused overnight 2L/NC while sleeping if refusing CPAP Chronic Anemia Hgb 13.0 Baseline Hgb 10-13 Continue Ferrous Sulfate Overweight BMI 29.09 Encourage Diet and Lifestyle modifications Admitted with the following risk variables: Chronic Fatigue/Reduced Mobility . Residence prior to admission: house or apartment Quality measures DVT prophylaxis: lovenox Lei catheter: absent Medication reconciliation: verified Patient and/or family has been told expected day of discharge is: greater than 6 days Potential social barriers to discharge include: mobility issues Code status Full Code; code status verified on 03/24/2025 with patient (capacity intact) Chief complaint Debility due to T7-8 discectomy History of present illness Gracie Lemons is a 75 y.o. male patient of Armando Kohli MD with history of anemia, BPH, CAD, DM, GERD, HLD, HTN, RAFAEL, and CVA presented to IRF on 03/23/2025 with debility s/p T7-8 discectomy. Patient was admitted inpatient on 03/11 for a T7-8 discectomy. Hospitalization was complicated by a right pneumothorax requiring Chest tube placement and right side weakness. Patient currently denies fever, chills, chest pain, abdominal pain, nausea, vomiting, diarrhea, constipation, or dysuria. Past medical history No past medical history on file. Past surgical history No past surgical history on file. Family history No family history on file. Social history Tobacco Use History[1] Social History Substance and Sexual Activity Alcohol Use Not on file Social History Substance and Sexual Activity Drug Use Not on file Allergy information I have reviewed the patient's allergies. Tylenol [acetaminophen] and Penicillins Home medications Home medications were reviewed. Review of systems All relevant systems have been reviewed and are negative except as noted in HPI or below Physical examination BP 126/77 Pulse (!) 108 Temp 98.3 F (36.8 C) (Oral) Resp 16 Ht 5' 5 Wt 79.3 kg (174 lb 13.2 oz) SpO2 95% BMI 29.09 kg/m General appearance: alert; chronically ill appearing; in no acute distress HEENT: Head- normocephalic; Eyes- EOMI, sclera anicteric; Throat- mucous membranes moist Cardiovascular: regular rate and rhythm; normal S1, S2; no murmurs, rubs, clicks or gallops; peripheral edema absent Respiratory: lungs clear to auscultation; without wheezes, rales or rhonchi; on room air Abdomen: soft, non-tender, non-distended Neurological: oriented x 3; normal speech; parkinsonian movements, right side weakness Musculoskeletal: no significant deformity, unable to extend right arm all the way Skin: normal coloration Psych: normal mood and affect [1] Social History Tobacco Use Smoking Status Not on file Smokeless Tobacco Not on file Cosigned by Sridevi Blanco MD at 03/25/2025 5:52 AM EDT [facility] 03-24-2025 Note [facility] -- IRF Patient name: Gracie Lemons Date of : 1950 Admission date: 03/23/2025 Physicians: Armando Kohli MD (Family); No ref. provider found (Referring) Gracie Lemons is a 75 y.o. male patient of Armando Kohli MD with history of anemia, BPH, CAD, DM, GERD, HLD, HTN, RAFAEL, and CVA presented to IRF on 03/23/2025 with debility s/p T7-8 discectomy. Debility Impaired Mobility and ADLs Comprehensive Rehab with PT/OT/ST PMR following T7-T8 Discectomy Right Side Weakness Parkinsonian Features T7-8 Discectomy on 03/11 at [facility] with neurosurgery Patient with subsequent Right side weakness Neurology at [facility] believes it to possibly be lumbosacral plexopathy Patient with Parkinsonian features including masked facies, hypophonic speech, cogwheeling rigidity of axial and appendicular muscles, and bradykinesia A referral has been sent to [facility] Trialing Sinemet is not out of the question Continue Flexeril, gabapentin, and nortriptyline Pressure Injury Coccyx, POA Pressure Injury gluteal fold, POA Consult Wound Care Fibrotic Lung Disease Continue Mucinex History of CVA CAD HTN HLD Continue atorvastatin, Plavix, Zetia, lisinopril, and metoprolol Type 2 Diabetes HgbA1C 7.7 in June 2024 Diabetic Diet Sliding Scale Insulin Recommend outpatient follow-up Hypothyroidism Will check TSH and reflex T4 Continue levothyroxine Cognitive Disorder Continue donepezil GERD Continue Protonix Vitamin D Deficiency Continue Supplementation RAFAEL CPAP ordered, refused overnight 2L/NC while sleeping if refusing CPAP Chronic Anemia Hgb 13.0 Baseline Hgb 10-13 Continue Ferrous Sulfate Overweight BMI 29.09 Encourage Diet and Lifestyle modifications Admitted with the following risk variables: Chronic Fatigue/Reduced Mobility . Residence prior to admission: house or apartment Quality measures DVT prophylaxis: lovenox Lei catheter: absent Medication reconciliation: verified Patient and/or family has been told expected day of discharge is: greater than 6 days Potential social barriers to discharge include: mobility issues Code status Full Code; code status verified on 03/24/2025 with patient (capacity intact) Chief complaint Debility due to T7-8 discectomy History of present illness Gracie Lemons is a 75 y.o. male patient of Armando Kohli MD with history of anemia, BPH, CAD, DM, GERD, HLD, HTN, RAFAEL, and CVA presented to IRF on 03/23/2025 with debility s/p T7-8 discectomy. Patient was admitted inpatient on 03/11 for a T7-8 discectomy. Hospitalization was complicated by a right pneumothorax requiring Chest tube placement and right side weakness. Patient currently denies fever, chills, chest pain, abdominal pain, nausea, vomiting, diarrhea, constipation, or dysuria. Past medical history No past medical history on file. Past surgical history No past surgical history on file. Family history No family history on file. Social history Tobacco Use History[1] Social History Substance and Sexual Activity Alcohol Use Not on file Social History Substance and Sexual Activity Drug Use Not on file Allergy information I have reviewed the patient's allergies. Tylenol [acetaminophen] and Penicillins Home medications Home medications were reviewed. Review of systems All relevant systems have been reviewed and are negative except as noted in HPI or below Physical examination BP 126/77 Pulse (!) 108 Temp 98.3 degrees F (36.8 degrees C) (Oral) Resp 16 Ht 5' 5 Wt 79.3 kg (174 lb 13.2 oz) SpO2 95% BMI 29.09 kg/m General appearance: alert; chronically ill appearing; in no acute distress HEENT: Head- normocephalic; Eyes- EOMI, sclera anicteric; Throat- mucous membranes moist Cardiovascular: regular rate and rhythm; normal S1, S2; no murmurs, rubs, clicks or gallops; peripheral edema absent Respiratory: lungs clear to auscultation; without wheezes, rales or rhonchi; on room air Abdomen: soft, non-tender, non-distended Neurological: oriented x 3; normal speech; parkinsonian movements, right side weakness Musculoskeletal: no significant deformity, unable to extend right arm all the way Skin: normal coloration Psych: normal mood and affect [1] Social History Tobacco Use Smoking Status Not on file Smokeless Tobacco Not on file [facility] [place] 03/24/2025 13:16:03 [facility] 03-24-2025 History and physical note [facility] Patient name: Gracie Lemons Date of : 1950 Admission date: 03/23/2025 Physicians: Armando Kohli MD (Family); No ref. provider found (Referring) Gracie Lemons is a 75 y.o. male patient of Armando Kohli MD with history of anemia, BPH, CAD, DM, GERD, HLD, HTN, RAFAEL, and CVA presented to IRF on 03/23/2025 with debility s/p T7-8 discectomy. Debility Impaired Mobility and ADLs Comprehensive Rehab with PT/OT/ST PMR following T7-T8 Discectomy Right Side Weakness Parkinsonian Features T7-8 Discectomy on 03/11 at [facility] with neurosurgery Patient with subsequent Right side weakness Neurology at [facility] believes it to possibly be lumbosacral plexopathy Patient with Parkinsonian features including masked facies, hypophonic speech, cogwheeling rigidity of axial and appendicular muscles, and bradykinesia A referral has been sent to [facility] Trialing Sinemet is not out of the question Continue Flexeril, gabapentin, and nortriptyline Pressure Injury Coccyx, POA Pressure Injury gluteal fold, POA Consult Wound Care Fibrotic Lung Disease Continue Mucinex History of CVA CAD HTN HLD Continue atorvastatin, Plavix, Zetia, lisinopril, and metoprolol Type 2 Diabetes HgbA1C 7.7 in June 2024 Diabetic Diet Sliding Scale Insulin Recommend outpatient follow-up Hypothyroidism Will check TSH and reflex T4 Continue levothyroxine Cognitive Disorder Continue donepezil GERD Continue Protonix Vitamin D Deficiency Continue Supplementation RAFAEL CPAP ordered, refused overnight 2L/NC while sleeping if refusing CPAP Chronic Anemia Hgb 13.0 Baseline Hgb 10-13 Continue Ferrous Sulfate Overweight BMI 29.09 Encourage Diet and Lifestyle modifications Admitted with the following risk variables: Chronic Fatigue/Reduced Mobility . Residence prior to admission: house or apartment Quality measures DVT prophylaxis: lovenox Lei catheter: absent Medication reconciliation: verified Patient and/or family has been told expected day of discharge is: greater than 6 days Potential social barriers to discharge include: mobility issues Code status Full Code; code status verified on 03/24/2025 with patient (capacity intact) Chief complaint Debility due to T7-8 discectomy History of present illness Gracie Lemons is a 75 y.o. male patient of Armando Kohli MD with history of anemia, BPH, CAD, DM, GERD, HLD, HTN, RAFAEL, and CVA presented to IRF on 03/23/2025 with debility s/p T7-8 discectomy. Patient was admitted inpatient on 03/11 for a T7-8 discectomy. Hospitalization was complicated by a right pneumothorax requiring Chest tube placement and right side weakness. Patient currently denies fever, chills, chest pain, abdominal pain, nausea, vomiting, diarrhea, constipation, or dysuria. Past medical history No past medical history on file. Past surgical history No past surgical history on file. Family history No family history on file. Social history Tobacco Use History[1] Social History Substance and Sexual Activity Alcohol Use Not on file Social History Substance and Sexual Activity Drug Use Not on file Allergy information I have reviewed the patient's allergies. Tylenol [acetaminophen] and Penicillins Home medications Home medications were reviewed. Review of systems All relevant systems have been reviewed and are negative except as noted in HPI or below Physical examination BP 126/77 Pulse (!) 108 Temp 98.3 F (36.8 C) (Oral) Resp 16 Ht 5' 5 Wt 79.3 kg (174 lb 13.2 oz) SpO2 95% BMI 29.09 kg/m General appearance: alert; chronically ill appearing; in no acute distress HEENT: Head- normocephalic; Eyes- EOMI, sclera anicteric; Throat- mucous membranes moist Cardiovascular: regular rate and rhythm; normal S1, S2; no murmurs, rubs, clicks or gallops; peripheral edema absent Respiratory: lungs clear to auscultation; without wheezes, rales or rhonchi; on room air Abdomen: soft, non-tender, non-distended Neurological: oriented x 3; normal speech; parkinsonian movements, right side weakness Musculoskeletal: no significant deformity, unable to extend right arm all the way Skin: normal coloration Psych: normal mood and affect [1] Social History Tobacco Use Smoking Status Not on file Smokeless Tobacco Not on file Cosigned by Sridevi Blanco MD at 03/25/2025 5:52 AM EDT documented in this encounter [facility] 03-24-2025 Plan of care note POC initiated [facility] 03-24-2025 Progress note Formatting of t his note is different from the original. [facility] NOTE Contacted by staff regarding patient not wanting to wear CPAP Action taken: Okay to use oxygen 2 L overnight I did not personally evaluate the patient. Treatment is based on review of chart and discussion with nursing staff and treatment team as necessary. [facility] Work Phone: 03-23-2025 Progress note Formatting of t his note is different from the original. [facility] NOTE Contacted by staff regarding RAFAEL and no cpap ordered. Has hx per chart review. No recent Nasal surgeries noted Action taken: Cpap ordered I did not personally evaluate the patient. Treatment is based on review of chart and discussion with nursing staff and treatment team as necessary. [facility] 03-23-2025 Miscellaneous Notes Problem: PT - General Goals Goal: Supine <-> Sit Transfers - Patient will perform supine to/from sit transfers with independence and without use of hospital bed features in order to improve functional mobility and safety. Outcome: Progressing Goal: Sit <-> Stand Transfers - Patient will perform sit to/from stand transfers with contact guard assistance and wit AD in order to improve functional mobility and safety. Outcome: Progressing Goal: Stand/Squat Pivot Transfers - Patient will perform stand pivot transfer to/from bed/chair/commode with modified independence and front-wheeled walker in order to improve functional mobility and safety. Outcome: Progressing Images from the original note were not included. WOC/ET Nursing Consult Note: Patient seen for follow up evaluation of a suspected pressure injury. Bedside nursing team assisted with repositioning patient for clinical evaluation. Lower coccyx and intergluteal cleft areas have open moist pink/reddened denuded tissue with a small amount of serosanguinous drainage and no foul odor. Recommend BID application of Triad ointment to areas of moisture associated dermatitis. Discussed recommendations with both patient and spouse. Optimize nutrition to improve skin and wound outcomes. Increase protein intake as tolerated. Consider supplemental zinc, vitamin C (or multivitamin) to promote wound healing. Wound Care Recommendations Sacrococcygeal Region: Please apply Triad ointment twice daily and as needed in a thin layer. Cleanse with soft bath wipes or no rinse foaming soap (NO CHG WIPES). When cleansing, remove top layer of ointment only, then reapply. Do not scrub ointment off skin, it is designed to stick to raw areas and protect. Please implement STAND Skin Bundle Score on Anirudh Scale If Anirudh <=18 , the skin bundle should be implemented in full, unless contraindicated If Anirudh <= 12 , Consult WOC team for High Risk for skin breakdown Turn, Offload and Reposition tubes and devices Turns are documented properly in IHIS Tubes and devices are checked and not under pt Apply Barrier Cream (incontinent pts) or Foam dressing (continent pts) Pt is incontinent, Apply Critic-Aid Clear Moisture Barrier Ointment BID or as directed by /ESTELLA Pt is continent, Lift back one corner of the bordered foam dressing, inspect the skin, and then reposition the dressing over bony prominence. Nutritional Intervention Encourage 2-4 ounces of nutrition supplement 3-4 times a day. Typically this should occur with medication administration Chart type of supplement and volume consumed in I/O flowsheet Discuss with Specialist Place a consult in EPIC for the WOCN if Anirudh Score is <= 12 ( high or severe risk) Discuss with INSTRUMENT/CONTROL TECHNICIAN or Unit Skin [place] The STAND skin bundle is an evidence-based prevention bundle designed to prevent pressure injuries in patients who are at risk for developing a pressure-related injury. For more information related to STAND Skin Bundle: [email or web address] 03/23/25 1230 Wound Irritant Contact Dermatitis Incontinence 03/14/25 1235 Coccyx Date First Assessed/Time First Assessed: 03/14/25 1235 Primary Wound Type: Irritant Contact Dermatitis Secondary Wound Type - Irritant Contact Dermatitis: Incontinence Present on Original Admission: No Device Related: no Wound Description: red c... Wound Image Dressing Status Open to Air Assessment Red;Moist Shyann-Wound Assessment [place];Red;Denuded Drainage Amount Small Drainage Characteristics/Odor Serosanguinous Treatment Applied barrier applied $$ Dressing Applied open to air Plan Problem moisture associated skin damage;friction injury Current Plan barrier cream Visit Type Consult with RN WOCT Visit Frequency PRN Last Date Seen 03/23/25 30 minutes spent providing patient care. 1135 AVS, JEANNETTE and discharge planning faxed to the facility 1148 Called facility and gave report 1210 AVS, JEANNETTE and discharge planning faxed to the facility - Second attempt 1400 PIV removed 1425 Report given to transport 1429 Patient discharged from [facility]. AVS was reviewed and explained with the patient and family. Discharge teaching was provided, including instructions on when to seek emergency care. Patient left the unit with all personal belongings in their possession via transport. No distress noted at the time of discharge. Problem: OT - ADLs Goal: Lower Body Dressing - Patient will complete lower body dressing tasks with minimal assistance using adaptive equipment/compensatory strategies as needed for improved ability to complete self-care activities. Outcome: Ongoing Goal: Bathing - Patient will perform full body bathing routine with minimal assistance and use of AE, as needed, while seated for improved ability to complete self-care activities Outcome: Ongoing Problem: OT - Strength/ROM Goal: Strength/ROM ADL Participation - Patient will participate in UE exercise program with independence to prevent deconditioning while in hospital and to max UE ROM/Coordination/strength for ADLs. Outcome: Ongoing Problem: OT - Transfers Goal: Transfers Toilet/ Bedside Commode - Patient will transfer to/from toilet/bedside commode with minimal assistance for improved ability to safely complete ADLs. Outcome: Progressing Problem: OT - Balance Goal: Balance - Standing - Patient will perform 4-5 minutes of functional task in standing with minimal assistance and fair balance to promote safety and improved balance required for self-care activities. Outcome: Progressing Problem: OT - Other Goal: Precaution Adherence - Patient will demonstrate 100% adherence to precautions during all ADLs and functional transfers to promote safety during daily routine. Outcome: Progressing Problem: Adult Inpatient Plan of Care Goal: Plan of Care Review Outcome: Progressing Problem: Adult Inpatient Plan of Care Goal: Patient-Specific Goal (Individualized) Outcome: Progressing Problem: OT - Other Goal: Precaution Adherence - Patient will demonstrate 100% adherence to precautions during all ADLs and functional transfers to promote safety during daily routine. Outcome: Progressing Problem: Spinal Surgery Goal: Optimal Pain Control and Function Outcome: Progressing Problem: Oral Intake Inadequate Goal: Improved Oral Intake Outcome: Progressing Problem: PT - General Goals Goal: Supine <-> Sit Transfers - Patient will perform supine to/from sit transfers with independence and without use of hospital bed features in order to improve functional mobility and safety. Outcome: Progressing Goal: Sit <-> Stand Transfers - Patient will perform sit to/from stand transfers with contact guard assistance and wit AD in order to improve functional mobility and safety. Outcome: Progressing Goal: Stand/Squat Pivot Transfers - Patient will perform stand pivot transfer to/from bed/chair/commode with modified independence and front-wheeled walker in order to improve functional mobility and safety. Outcome: Progressing Problem: Adult Inpatient Plan of Care Goal: Plan of Care Review Outcome: Progressing Goal: Patient-Specific Goal (Individualized) Outcome: Progressing Goal: Absence of Hospital-Acquired Illness or Injury Outcome: Progressing Goal: Optimal Comfort and Wellbeing Outcome: Progressing Goal: Readiness for Transition of Care Outcome: Progressing Problem: Adult Inpatient Plan of Care Goal: Plan of Care Review Outcome: Progressing Goal: Patient-Specific Goal (Individualized) Outcome: Progressing Problem: OT - Transfers Goal: Transfers Toilet/ Bedside Commode - Patient will transfer to/from toilet/bedside commode with minimal assistance for improved ability to safely complete ADLs. Outcome: Not Progressing Problem: Spinal Surgery Goal: Effective Bowel Elimination Outcome: Progressing Goal: Effective Urinary Elimination Outcome: Progressing Problem: Adult Inpatient Plan of Care Goal: Plan of Care Review Outcome: Progressing Goal: Patient-Specific Goal (Individualized) Outcome: Progressing Goal: Absence of Hospital-Acquired Illness or Injury Outcome: Progressing Goal: Optimal Comfort and Wellbeing Outcome: Progressing Goal: Readiness for Transition of Care Outcome: Progressing Problem: Adult Inpatient Plan of Care Goal: Plan of Care Review Outcome: Progressing Goal: Patient-Specific Goal (Individualized) Outcome: Progressing Goal: Absence of Hospital-Acquired Illness or Injury Outcome: Progressing Goal: Optimal Comfort and Wellbeing Outcome: Progressing Goal: Readiness for Transition of Care Outcome: Progressing Problem: PT - General Goals Goal: Supine <-> Sit Transfers - Patient will perform supine to/from sit transfers with independence and without use of hospital bed features in order to improve functional mobility and safety. Outcome: Progressing Goal: Sit <-> Stand Transfers - Patient will perform sit to/from stand transfers with contact guard assistance and wit AD in order to improve functional mobility and safety. Outcome: Progressing Goal: Stand/Squat Pivot Transfers - Patient will perform stand pivot transfer to/from bed/chair/commode with modified independence and front-wheeled walker in order to improve functional mobility and safety. Outcome: Progressing Goal: Ambulation - Patient will ambulate 25 feet with contact guard assistance and front-wheeled walker to improve ability to safely navigate home and community. Outcome: Progressing Goal: Stairs - Patient will ascend/descend 3 stairs with modified independence, straight cane, and single railing(s) to improve ability to safely navigate home and community. Outcome: Progressing Problem: OT - ADLs Goal: Bathing - Patient will perform full body bathing routine with minimal assistance and use of AE, as needed, while seated for improved ability to complete self-care activities Outcome: Ongoing Problem: OT - Transfers Goal: Transfers Toilet/ Bedside Commode - Patient will transfer to/from toilet/bedside commode with minimal assistance for improved ability to safely complete ADLs. Outcome: Ongoing Problem: OT - Strength/ROM Goal: Strength/ROM ADL Participation - Patient will participate in UE exercise program with independence to prevent deconditioning while in hospital and to max UE ROM/Coordination/strength for ADLs. Outcome: Ongoing Problem: OT - ADLs Goal: Lower Body Dressing - Patient will complete lower body dressing tasks with minimal assistance using adaptive equipment/compensatory strategies as needed for improved ability to complete self-care activities. Outcome: Progressing Problem: OT - Balance Goal: Balance - Standing - Patient will perform 4-5 minutes of functional task in standing with minimal assistance and fair balance to promote safety and improved balance required for self-care activities. Outcome: Progressing Problem: OT - Other Goal: Precaution Adherence - Patient will demonstrate 100% adherence to precautions during all ADLs and functional transfers to promote safety during daily routine. Outcome: Progressing Problem: PT - General Goals Goal: Supine <-> Sit Transfers - Patient will perform supine to/from sit transfers with independence and without use of hospital bed features in order to improve functional mobility and safety. Outcome: Ongoing Goal: Sit <-> Stand Transfers - Patient will perform sit to/from stand transfers with contact guard assistance and wit AD in order to improve functional mobility and safety. Outcome: Ongoing Goal: Stand/Squat Pivot Transfers - Patient will perform stand pivot transfer to/from bed/chair/commode with modified independence and front-wheeled walker in order to improve functional mobility and safety. Outcome: Ongoing Goal: Ambulation - Patient will ambulate 25 feet with contact guard assistance and front-wheeled walker to improve ability to safely navigate home and community. Outcome: Ongoing Goal: Stairs - Patient will ascend/descend 3 stairs with modified independence, straight cane, and single railing(s) to improve ability to safely navigate home and community. Outcome: Ongoing Problem: Adult Inpatient Plan of Care Goal: Plan of Care Review Outcome: Progressing Goal: Patient-Specific Goal (Individualized) Outcome: Progressing Goal: Absence of Hospital-Acquired Illness or Injury Outcome: Progressing Goal: Optimal Comfort and Wellbeing Outcome: Progressing Goal: Readiness for Transition of Care Outcome: Progressing NS resident director of provider relations Doretha Alvarez paged:[phone])Cristo: pt's confused, pt spouse asked if we can check for UTI? thanks Joao SOMMERS [phone] Problem: Adult Inpatient Plan of Care Goal: Plan of Care Review Outcome: Progressing Goal: Patient-Specific Goal (Individualized) Outcome: Progressing Goal: Absence of Hospital-Acquired Illness or Injury Outcome: Progressing Problem: Spinal Surgery Goal: Optimal Pain Control and Function Outcome: Progressing Problem: Oral Intake Inadequate Goal: Improved Oral Intake Outcome: Progressing Nutrition Recommendations and Plan of Care: Continue with Carb Controlled Diet as tolerated. Will send chocolate Glucerna TID (220 kcal, 10 g protein each) to aid in meeting kcal and protein needs. Monitor/encourage PO intake. Monitor GI function, skin integrity, weight changes, and labs. Nutrition to continue to follow. On admission to [facility], from another [facility] inpatient unit a dual RN initial assessment of skin condition was performed by Joao SOMMERS and Inna RN. Skin Assessment: Skin not within defined limits. - Photo taken and uploaded into notes in IHIS: Yes Skin tear to left arm Redness to coccyx Redness to R flank/chest Bruises, scabs, abrasions. Anirudh Score: 18 LDA Added:Yes Joao Gracia RN Problem: PT - General Goals Goal: Supine <-> Sit Transfers - Patient will perform supine to/from sit transfers with independence and without use of hospital bed features in order to improve functional mobility and safety. Outcome: Not Progressing Goal: Sit <-> Stand Transfers - Patient will perform sit to/from stand transfers with contact guard assistance and wit AD in order to improve functional mobility and safety. Outcome: Not Progressing Goal: Stand/Squat Pivot Transfers - Patient will perform stand pivot transfer to/from bed/chair/commode with modified independence and front-wheeled walker in order to improve functional mobility and safety. Outcome: Not Progressing Problem: Adult Inpatient Plan of Care Goal: Plan of Care Review Outcome: Progressing Goal: Patient-Specific Goal (Individualized) Outcome: Progressing Goal: Absence of Hospital-Acquired Illness or Injury Outcome: Progressing Goal: Optimal Comfort and Wellbeing Outcome: Progressing Goal: Readiness for Transition of Care Outcome: Progressing Problem: Spinal Surgery Goal: Optimal Coping with Surgery Outcome: Progressing Goal: Absence of Bleeding Outcome: Progressing Goal: Effective Bowel Elimination Outcome: Progressing Goal: Fluid and Electrolyte Balance Outcome: Progressing Goal: Optimal Functional Ability Outcome: Progressing Goal: Absence of Infection Signs and Symptoms Outcome: Progressing Goal: Optimal Neurologic Function Outcome: Progressing Goal: Anesthesia/Sedation Recovery Outcome: Progressing Goal: Optimal Pain Control and Function Outcome: Progressing Goal: Nausea and Vomiting Relief Outcome: Progressing Goal: Effective Urinary Elimination Outcome: Progressing Goal: Effective Oxygenation and Ventilation Outcome: Progressing Interventional Radiology procedure completed of image guided right chest tube placement with IR Attending Cy/ with sedation and local numbing agent. Intra-procedure specimens collected and sent to lab for analysis. Pt to travel back to inpatient unit for post procedure recovery. Primary team to assume management of chest tube post procedure. Problem: Adult Inpatient Plan of Care Goal: Plan of Care Review Outcome: Progressing Goal: Patient-Specific Goal (Individualized) Outcome: Progressing Goal: Absence of Hospital-Acquired Illness or Injury Outcome: Progressing Goal: Optimal Comfort and Wellbeing Outcome: Progressing Goal: Readiness for Transition of Care Outcome: Progressing Problem: Spinal Surgery Goal: Optimal Coping with Surgery Outcome: Progressing Goal: Absence of Bleeding Outcome: Progressing Goal: Effective Bowel Elimination Outcome: Progressing Goal: Fluid and Electrolyte Balance Outcome: Progressing Goal: Optimal Functional Ability Outcome: Progressing Goal: Absence of Infection Signs and Symptoms Outcome: Progressing Goal: Optimal Neurologic Function Outcome: Progressing Goal: Anesthesia/Sedation Recovery Outcome: Progressing Goal: Optimal Pain Control and Function Outcome: Progressing Goal: Nausea and Vomiting Relief Outcome: Progressing Goal: Effective Urinary Elimination Outcome: Progressing Goal: Effective Oxygenation and Ventilation Outcome: Progressing Problem: PT - General Goals Goal: Supine <-> Sit Transfers - Patient will perform supine to/from sit transfers with independence and without use of hospital bed features in order to improve functional mobility and safety. Outcome: Not Progressing Images from the original note were not included. WOC/ET Nursing Consult/Evaluation Note Evaluated Gracie Lemons for wounds located on sacrococcygeal Description of wound: Sacrococcygeal, perianal and bilateral gluteals: Area of red, purple, and moist skin. Areas of blanching and non-blanching skin. Irregular shaped and close proximity to the rectum and in a skin fold. Scant amount of serosanguinous drainage, no odor. Periwound skin red, dry, intact and blanchable. Patient with recent history of frequent loose liquid stool incontinence. Unclear etiology incontinence associated skin damage vs pressure injury. Continue to monitor closely. Recommend zinc barrier cream. Recommendation: Sacrococcygeal, perianal and bilateral gluteals: Please apply Z-Guard (orange top) twice daily and as needed with incontinence care in a thin layer. Cleanse with soft bath wipes or no rinse foaming soap (NO CHG WIPES). When cleansing, remove top layer of ointment only, then reapply. Do not scrub ointment off skin, it is designed to stick to raw areas and protect. Offload bilateral heels with [place] pillows or TruVue boots at all timed while in bed. Recommend pressure reduction techniques including frequent repositioning, minimizing elevation of the head of the bed, and encouraging patient to be out of bed as much as possible (use pressure reducing wheelchair cushion when sitting in chair). Bed Surface: Low air loss alternating pressure ICU mattress Discharge Recommendations: Patient may continue care as described above at discharge. See image(s) below: Anirudh Skin Assessment: Anirudh Risk Assessment Sensory Perception: 4-->no impairment Moisture: 3-->occasionally moist Activity: 2-->chairfast Mobility: 2-->very limited Nutrition: 3-->adequate Friction and Shear: 3-->no apparent problem Anirudh Score: 17 Anirudh Score: Anirudh Score: 17 Body mass index is 30.2 kg/m . Total time spent in assessment and treatment of patient: 20 minutes LABS: Albumin Date Value Ref Range Status 03/16/2025 2.7 (L) 3.5 - 5.0 g/dL Final 07/16/2012 2.4 (L) 3.4 - 4.8 g/dL Final No results found for: PREALBUMIN Wound Documentation: 03/16/25 1100 Wound Pressure Injury Suspected 03/14/25 1235 Buttocks Date First Assessed/Time First Assessed: 03/14/25 1235 Primary Wound Type: Pressure Injury Secondary Wound Type - Pressure Injury: Suspected Device Related: no Wound Description: red cracked and bleeding Location: Buttocks Wound Image Assessment Red;Moist;Non-blanchable;Blanchable Shyann-Wound Assessment Red;Dry;Intact;Blanchable Drainage Amount None Treatment Applied soap and water, irrigated/cleansed with;barrier applied $$ Dressing Applied open to air Periwound Care Applied soap and water, cleansed with;barrier ointment Plan Problem pressure ulcer, suspected Current Plan barrier cream WOCT Visit Frequency Tue Last Date Seen 03/16/25 Past Medical History[1] Past Surgical History[2] RN notified of assessment and plan. Please page #[phone] or reconsult with any further needs. Sveta Colindres RN [1] Past Medical History: Diagnosis Date Anemia BPH (benign prostatic hyperplasia) Brain abscess CAD (coronary artery disease) Colon polyp Diabetes mellitus GERD (gastroesophageal reflux disease) High cholesterol HTN (hypertension) Nephrolithiasis RAFAEL (obstructive sleep apnea) Primary adrenal deficiency Stroke Stroke-like episode x3 Syncope Thalamic infarction TIA (transient ischemic attack) [2] Past Surgical History: Procedure Laterality Date FUSION EXTREME LATERAL INTERBODY LUMBAR N/A 03/11/2025 Laterality: N/A; Surgeon: Doretha Brandon MD; Location: [facility] MAIN OR CORPECTOMY VERTEBRAL W/ DECOMPRESSION TRANSTHORACIC APPROACH N/A 03/11/2025 Laterality: N/A; Surgeon: Doretha Brandon MD; Location: [facility] MAIN OR GRAFT SPINE SURGERY ONLY AUTOGRAFT POSTERIOR ADD-ON PX N/A 03/11/2025 Laterality: N/A; Surgeon: Doretha Brandon MD; Location: [facility] MAIN OR LOOP RECORDER IMPLANTATION 05/07/2013 Surgeon: Huy Romo MD; Location: [facility] LAMINECTOMY FACETECTOMY AND FORAMINOTOMY VERTEBRAL SEGMENT LUMBAR SINGLE 07/15/2012 Laterality: Midline; Surgeon: Trinidad Wiseman MD, PhD; Location: [facility] MAIN OR FUSION POSTERIOR LUMBAR 07/15/2012 Laterality: Midline; Surgeon: Trinidad Wiseman MD, PhD; Location: [facility] MAIN OR INSERTION SPINAL INSTRUMENTATION POSTERIOR NONSEGMENTAL ADD-ON PX 07/15/2012 Laterality: Midline; Surgeon: Trinidad Wiseman MD, PhD; Location: [facility] MAIN OR HERNIA REPAIR 2008 BRAIN SURGERY 2002 BACK SURGERY 1985 BRAIN MENINGIOMA EXCISION COMPLETE EXTRACTION OF TEETH WISDOM TEETH EXTRACTION Interventional Radiology Procedural Planning Note Requested procedure: USG Right chest tube placement Date of H&P reviewed: 03/16/25 Specified Laterality: right Sedation: moderate Thank you for your referral to Interventional Radiology. Your request for chest tube placement for your patient has been reviewed and approved for scheduling. Your patient is an ADD ON to our schedule on 03/16/25 Time to be determined. Please note that emergent cases will take priority over any added on cases. Special Considerations: *please contact us if patient's status changes or procedure is no longer needed. *please make your patient npo @ midnight prior to scheduled procedure, this includes tube feeding to be stopped and no pills crushed in food. Your patient will need to be able to tolerate lying flat for approximately one hour. A working PIV is required to sedate your patient. For questions or concerns please call us directly at [phone] for questions [phone]. Problem: PT - General Goals Goal: Supine <-> Sit Transfers - Patient will perform supine to/from sit transfers with independence and without use of hospital bed features in order to improve functional mobility and safety. Outcome: Not Progressing Goal: Sit <-> Stand Transfers - Patient will perform sit to/from stand transfers with contact guard assistance and wit AD in order to improve functional mobility and safety. Outcome: Not Progressing Goal: Stand/Squat Pivot Transfers - Patient will perform stand pivot transfer to/from bed/chair/commode with modified independence and front-wheeled walker in order to improve functional mobility and safety. Outcome: Not Progressing Problem: OT - ADLs Goal: Bathing - Patient will perform full body bathing routine with minimal assistance and use of AE, as needed, while seated for improved ability to complete self-care activities Outcome: Ongoing Problem: OT - Strength/ROM Goal: Strength/ROM ADL Participation - Patient will participate in UE exercise program with independence to prevent deconditioning while in hospital and to max UE ROM/Coordination/strength for ADLs. Outcome: Ongoing Problem: OT - ADLs Goal: Lower Body Dressing - Patient will complete lower body dressing tasks with minimal assistance using adaptive equipment/compensatory strategies as needed for improved ability to complete self-care activities. Outcome: Progressing Problem: OT - Transfers Goal: Transfers Toilet/ Bedside Commode - Patient will transfer to/from toilet/bedside commode with minimal assistance for improved ability to safely complete ADLs. Outcome: Progressing Problem: OT - Balance Goal: Balance - Standing - Patient will perform 4-5 minutes of functional task in standing with minimal assistance and fair balance to promote safety and improved balance required for self-care activities. Outcome: Progressing Problem: OT - Other Goal: Precaution Adherence - Patient will demonstrate 100% adherence to precautions during all ADLs and functional transfers to promote safety during daily routine. Outcome: Progressing Nursing order placed: Please obtain photo with rossy of skin integrity concerns to correspond with LDA for [facility] nurse to triage. Thank you. Problem: Adult Inpatient Plan of Care Goal: Plan of Care Review Outcome: Progressing Goal: Patient-Specific Goal (Individualized) Outcome: Progressing Goal: Absence of Hospital-Acquired Illness or Injury Outcome: Progressing Goal: Optimal Comfort and Wellbeing Outcome: Progressing Goal: Readiness for Transition of Care Outcome: Progressing On admission to [facility] [place] another [facility] inpatient unit 8 B&S a dual RN initial assessment of skin condition was performed by Zulma Mccain RN and Garfield Lockhart RN. Skin Assessment: Skin not within defined limits. - Pressure Injury suspected: Yes - Wound(s) identified: Yes - Consult ordered: Yes - Coccyx wound added Anirudh Score: 18 LDA Added:Yes Zulma Mccain RN Problem: PT - General Goals Goal: Supine <-> Sit Transfers - Patient will perform supine to/from sit transfers with independence and without use of hospital bed features in order to improve functional mobility and safety. Outcome: Not Progressing Problem: Adult Inpatient Plan of Care Goal: Plan of Care Review Outcome: Progressing Goal: Patient-Specific Goal (Individualized) Outcome: Progressing Goal: Absence of Hospital-Acquired Illness or Injury Outcome: Progressing Goal: Optimal Comfort and Wellbeing Outcome: Progressing Goal: Readiness for Transition of Care Outcome: Progressing Jace Alvarez MD: Cristo PIERCE, 816: Pt. requiring straight caths Q6, can we get lei order for next time since we are giving lasix per pulm? For strict I&O's? Thank you! TOOTIE Jackson #[phone] Renetta Sinclair RN 1800: placed order Reviewed stat consult for increased pleural effusion with chest tube. It appears pulmonology was also consulted for this same issue. Per most recent documented vitals, Pt has been maintaining sats >90% on 2L NC. Paged callback pager number provided by primary team ([phone]) to discuss the consult and messaged primary team as well. Have not been heard back yet from the primary team, but would defer management of chest tube and pleural effusion to pulmonology team, who have since seen the patient and provided recommendations. Update: primary team removed consult to hospital medicine. Problem: Adult Inpatient Plan of Care Goal: Plan of Care Review Outcome: Progressing Goal: Patient-Specific Goal (Individualized) Outcome: Progressing Goal: Absence of Hospital-Acquired Illness or Injury Outcome: Progressing Goal: Optimal Comfort and Wellbeing Outcome: Progressing Goal: Readiness for Transition of Care Outcome: Progressing Pagereyes Tian MD: B8S 816 Cristo; Patient needs to travel to [facility] now, but chest tube ordered to wall suction. Please place order for chest tube management while transporting. Thanks Rich director treasurer [phone] Zain Patton RN Jace Corbett MD: Cristo PIERCE, 816: Pts. BP is 80/64 (MAP 69), which is the highest I got. Asymptomatic, going to hold morning BP meds. Do you want bolus? He is also tachy in the upper 100's. Thank you. TOOTIE Jackson #[phone] Renetta Sinclair RN 0841: placed bolus order Problem: OT - ADLs Goal: Lower Body Dressing - Patient will complete lower body dressing tasks with minimal assistance using adaptive equipment/compensatory strategies as needed for improved ability to complete self-care activities. Outcome: Ongoing Goal: Bathing - Patient will perform full body bathing routine with minimal assistance and use of AE, as needed, while seated for improved ability to complete self-care activities Outcome: Ongoing Problem: OT - Transfers Goal: Transfers Toilet/ Bedside Commode - Patient will transfer to/from toilet/bedside commode with minimal assistance for improved ability to safely complete ADLs. Outcome: Ongoing Problem: OT - Balance Goal: Balance - Standing - Patient will perform 4-5 minutes of functional task in standing with minimal assistance and fair balance to promote safety and improved balance required for self-care activities. Outcome: Ongoing Problem: OT - Strength/ROM Goal: Strength/ROM ADL Participation - Patient will participate in UE exercise program with independence to prevent deconditioning while in hospital and to max UE ROM/Coordination/strength for ADLs. Outcome: Ongoing Problem: OT - Other Goal: Precaution Adherence - Patient will demonstrate 100% adherence to precautions during all ADLs and functional transfers to promote safety during daily routine. Outcome: Ongoing Problem: PT - General Goals Goal: Supine <-> Sit Transfers - Patient will perform supine to/from sit transfers with independence and without use of hospital bed features in order to improve functional mobility and safety. Outcome: Ongoing Goal: Sit <-> Stand Transfers - Patient will perform sit to/from stand transfers with contact guard assistance and wit AD in order to improve functional mobility and safety. Outcome: Ongoing Goal: Stand/Squat Pivot Transfers - Patient will perform stand pivot transfer to/from bed/chair/commode with modified independence and front-wheeled walker in order to improve functional mobility and safety. Outcome: Ongoing Goal: Ambulation - Patient will ambulate 25 feet with contact guard assistance and front-wheeled walker to improve ability to safely navigate home and community. Outcome: Ongoing Goal: Stairs - Patient will ascend/descend 3 stairs with modified independence, straight cane, and single railing(s) to improve ability to safely navigate home and community. Outcome: Ongoing On admission to [facility], from [place] a dual RN initial assessment of skin condition was performed by Aline Gomez, RN and Nicholas SOMMERS. Skin Assessment: Skin not within defined limits. 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] PROCEDURE PERFORMED Procedure(s) (LRB): Right 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 (N/A) CORPECTOMY VERTEBRAL W/ DECOMPRESSION TRANSTHORACIC APPROACH (N/A) GRAFT SPINE SURGERY ONLY AUTOGRAFT POSTERIOR ADD-ON PX (N/A) PRIMARY CLOSURE Yes INTRAOPERATIVE FINDINGS Right lateral T7-8 discectomy SURGEON Surgeons and Role: * Doretha Brandon MD - Primary ANESTHESIOLOGIST Anesthesiologist: Lucy No MD DESKTOP SUPPORT CONSULTANT: Robert Cerrato APRN-DESKTOP SUPPORT CONSULTANT Student Nurse Baseball Hand Sewer: Loren Arauz SURGICAL STAFF Parimutuel Ticket Seller: Sheyla Hernandez RN; Jaspreet Donnelly RN; Inna Perry RN Relief Parimutuel Ticket Seller: Laith Thompson RN Scrub Person: Rosmery Carrasco RN; Giovana Arcos Assisting: Elijah Russell MD; Antonio Chavez MD COMPLICATIONS None ESTIMATED BLOOD LOSS Minimal SPECIMENS No specimen sent * No specimens in log * Elijah Russell MD March 11, 2025 6:58 PM Cosigned by Doretha Brandon MD at 03/19/2025 12:26 PM EDT Operative Report DATE OF PROCEDURE: 03/11/2025 TIME OF PROCEDURE: 1200 SURGEON: Doretha Brandon MD MOTORCYCLE MAKER: Elijah Russell MD PREOPERATIVE DIAGNOSIS: 1. Thoracic spinal cord compression 2. Thoracic herniated disc POSTOPERATIVE DIAGNOSIS: Same PROCEDURES PERFORMED: 1.Right T7-8 lateral thoracotomy with retropleural approach to the spine 2. Anterior T7 and T7 partial partial corpectomy (1/3 of vertebra) for decompression of thecal sac and nerve root 3. Anterior T7-8 interbody arthrodesis 4. Use of morselized allograft 5. [place] and use of local morselized autograft 5. Use of operating microscope ANESTHESIA: General. INDICATIONS FOR SURGERY: This is a very pleasant 75 y/o man who presents with worsening paraparesis. Imaging revealed a T7-8 herniated disc causing ventral spinal cord compression. Given his progressive weakness, we recommended surgical decompression. OPERATIVE FINDINGS: Stable baseline motor and SSEPs throughout the surgery. Large herniated disc removed at T7-8 for decompression of the spinal cord. PROCEDURE The patient was brought to the operating room. After general anesthesia was induced, neural monitoring consisting of somatosensory evoked potentials and motor evoked potentials were obtained with stable and good baselines. The patient was placed on the operating table in the lateral position with the right side facing upwards. Fluoroscopy was then used to trace out the T7-8 vertebral bodies. An oblique incision was then marked on the skin following a rib that bisected the T7-8 body. The skin was opened with a 10 blade and monopolar electrocautery was used to dissect through the underlying soft tissue and exposure the lateral surface of rib underneath the incision site. An ultrasonic bone scalpel was used to cut a 5cm segment of both ribs, which were removed and ground up into local moselized autograft. After the ribs were removed, the underlying endothoracic fascia was opened, exposing the parietal pleura. A retropleural dissection plane was then established between the parietal pleura and the endothoracic fascia, and carried deep until the lateral surface of the spine was encountered. The nearest rib head was identified as belonging to the T8 rib based on fluoroscopy. After identifying the correct level, a NuVasive Maxcess latera retractor was situated and the operating microscope was brought into the field. Under microscopic visualization and using microdissection techniques, the endothoracic fascia on top of the rib head and the lateral surface of T7-8 and the disc space was exposed. An ultrasonic scalpel was used to resect the rib head, exposing the underlying T8 pedicle. A high speed electric drill was used to resect the pedicle, decompressing and identifying the lateral surface of the thecal sac. A partial corpectomy was then performed, removing 1/3 of the posterior superior portion of the T8 body and inferior portion of the T7 body to a depth of the contralateral medial pedicle. After the bony elements were removed, the ventral surface of the thecal sac was exposed with the high speed drill to carefully expose the ventral posterior longitudinal ligament. A long handle 11-blade was then used to divide the PLL above and below the disc space. A combination of curettes and downpushers were then used to dissect the herniated disc off the ventral thecal sac and into the corpectomy cavity. A ball tipped probe was used to palpate the central and lateral aspects of the spinal canal and found no further evidence of compression. Afterwards, the remaining anterior portion of the disc space was exposed and a radical discectomy was performed utilizing cutting instruments and a box loader under fluoroscopic visualization. The endplates of the T7-8 disc space were decorticated to facilitate arthrodesis and then the disc space packed with morselized allograft. Next, the surgical cavity was copiously irrigated with antibiotic impregnated saline and meticulous hemostasis was achieved. A 15 yi Aly drain was inserted into the surgical cavity and the lateral retractor was removed with the lung under direct visualization. Small pleural violations were repaired with interrupted 3-0 vicryl. Surgical closure began was reapproximation of the intercostal muscles and lateral flank muscles with 0-vicryl sutures in an interrupted fashion. The deep dermal layers were closed with inverted, interrupted 0-vicryl sutures and a 4-0 monocryl was used to close the dermis in a subcuticular fashion with application of dermabond on top. The drain was inserted into a water seal and multiple valsalva maneuvers were performed with no evidence of any airleak before the drain was applied to bulb suction. ESTIMATED BLOOD LOSS: 100CC ATTESTATION: I, Doretha Brandon MD, was present and scrubbed for the critical portions of the procedure including decompression, and instrumentation, and immediately available throughout the surgery. Dr. Cathie Linares was the covering surgeon and available in my absence. documented in this encounter [facility] 03-23-2025 History of Present illness Narrative Acute Physical Therapy Treatment Prior Gross Functional Mobility: independent, used device Current AM-PAC score(s): CURRENT AM-PAC Mobility Raw Score: 10 Based on the above AM-PAC score(s) and PT clinical judgment, patient is a good candidate for discharge to Inpatient Rehab Facility Supporting Factors (would benefit from skilled therapy services): Impaired functional status, Patient status is anticipated to be appropriate to tolerate inpatient rehab therapy requirements at time of discharge from acute care, Decreased strength, Impaired balance, Decreased endurance necessitating skilled therapy services, but able to tolerate therapy requirements for inpatient rehab, Impaired self-care abilities, Fall risk Mobility equipment available at home: front-wheeled walker, straight cane ADL equipment available at home: grab bars Equipment needed for discharge: to be determined Current therapy frequency recommendation in acute: PT Therapy Frequency: 6 times a week Activity Recommendations for outside of rehab session: staff x2, santy bass bed <> chair Precautions and Weightbearing Status: Existing Precautions/Restrictions: spinal, fall Lines/Tubes/Drains (Rehab Status): No critical lines at this time Patient Safety Communication Prior to Visit: Nursing Current brace/orthoses: (none ordered) Subjective: pt motivated to participate Pain: General Pain Documentation (Adult, OB, Peds) Presence of Pain: not present: non-verbal indicator of pain/discomfort Presence of Pain Score (Auto-calculated): 0 Objective/Observation: Vitals/Vitals Responses to Treatment: VSS, no adverse reaction to therapy. Pt denies dizziness with mobility or pain spike. Stable at session end, no additional complaints or concerns O2 Device: room air Cognition Overall Cognitive Status: Impaired Arousal/Alertness: Appropriate responses to stimuli Orientation Level: Oriented to person, Oriented to place Following Commands: Follows one step commands with increased time, Follows one step commands with repetition Cognition Comments: mildly decreased insight to safety, requires consistent cues for safety Extremity Assessments: See PT Evaluation flowsheet for Extremity Measurement updates. Skin and Edema: Balance: Sitting Balance Static Sitting-Level of Assistance: Contact guard Dynamic Sitting-Level of Assistance: Contact guard Skilled Rationale: Positioning, Sequencing, Verbal cues, Cues for increased safety, Technique of activity, Full extension to upright positioning/posture Sitting Balance Skilled Intervention/Details: no overt LOB, cues for midline orientation due to noted intermittent forward flexion Standing Balance Static Standing-Level of Assistance: Moderate assistance, Maximum assistance Dynamic Standing-Level of Assistance: 2-person assist Standing-Balance Support: Gait belt, Stand assist device - non-powered Skilled Rationale: Positioning, Sequencing, Verbal cues, Energy conservation, Technique of activity, Full extension to upright positioning/posture Standing Balance Skilled Intervention/Details: x multiple bouts in standing, one bout at sink ~5 minutes for carryover to progress functional activity tolerance and dynamic standing balance. no overt LOB but sonsistent cues for upright posture and utilizing mirror for visual feedbakc for midlineorientation promoted with limited carryover this date Mobility Assessment/Intervention: Supine to Sit Mobility Nelson Level: Supine->Sit: not tested Skilled Intervention/Details: Supine->Sit: pt greeted on BSC Sit to Supine Mobility Nelson Level: Sit->Supine: not tested Skilled Intervention/Details: Sit->Supine: pt in recliner, needs in reach, alarm on, no additiontal complaints Transfer Assessment/Intervention: Sit to Stand Transfer Nelson Level: Sit->Stand: moderate assist (50% patient effort) Physical Assist: Sit->Stand: 2 person assist Assistive Device: Sit->Stand: gait belt, stand assist device - non-powered Skilled Rationale: Positioning, Sequencing, Verbal cues, Cues for increased safety, Upright gaze/neck extension Skilled Intervention/Details: Sit->Stand: x [place] b[place] [facility] [place] [facility], assistance for hand placement and propulsion into upright Stand to Sit Transfer Nelson Level: Stand->Sit: moderate assist (50% patient effort) Physical Assist: Stand->Sit: 2 person assist Assistive Device: Stand->Sit: gait belt, stand assist device - non-powered Skilled Rationale: Positioning, Sequencing, Verbal cues, Cues for increased safety, Technique of activity, Full extension to upright positioning/posture Skilled Intervention/Details: Stand->Sit: assist for controlled descent x multiple bouts to contra [facility] and [facility] and recliner this date, cues for proximity and safety Bed-Chair Transfer Nelson Level: Bed<->Chair: not tested Gait/Functional Mobility Assessment/Intervention: Gait Assessment Nelson Level: Gait: not tested Stairs Assessment/Intervention: Stairs Assessment Nelson Level: Stair Negotiation: not tested Outcome Score(s): CURRENT [facility] Basic Mobility Inpatient Short Form Turning over in bed: 2 - A Lot of Assistance Moving from lying on back to sittin - A Lot of Assistance Moving to and from bed to chair: 2 - A Lot of Assistance Sitting/standing from chair: 2 - A Lot of Assistance Walk in hospital room: 1 - Total Assistance Climbing 3-5 steps with a railin - Total Assistance CURRENT [facility] Mobility Raw Score: [address] [facility] Mobility Functional Limitation: 76.75% Impaired in Basic Mobility Interventions: education on precautions Assessment & Plan: Vitals WFL, no adverse reaction to therapy during session, pt agreeable to therapy session. Pt educated on all mobility precautions at session start and maintained throughout session. Session focus on Bed mobility, Dynamic and static sitting balance, Activity tolerance, Sit to stands, and Pt education for carryover to Strength Balance Safety with functional mobility in home environment. Pt demonstrates Slow progression to goals in POC compared to session prior. Pt will continue to benefit from skilled physical therapy during this hospitalization to address remaining deficits in Strength, Balance , and Functional activity tolerance as they relate to safety and independence with functional mobility for overall carryover to improvement in quality of life. During session pt educated on Importance of staff assistance, recommended assistive device and call light use with all OOB mobility , Fall prevention, assistive device use recommendation in home environment, and Role of PT/POC . At session end, pt in recliner with chair alarm placed and activated patient with needs in reach, no additional complaints or questions, all lines, tubes, drains intact. RN notified and aware of all session details, pt condition, pt vitals, and PT mobility recommendations for nursing staff via handoff at session end. Patient Instruction/Education this session: Learners: Patient, Significant Other Education provided: Activity outside of therapy, Balance training, Bed mobility, Plan of care, Precautions/weight bearing status, Functional transfers Plan for next session: progress standing tolerance Acute PT Goals Plan of Care by Jesica Rubio PT at 03/23/2025 2:30 PM Version 1 of 1 Problem: PT - General Goals Goal: Supine <-> Sit Transfers - Patient will perform supine to/from sit transfers with independence and without use of hospital bed features in order to improve functional mobility and safety. Outcome: Progressing Goal: Sit <-> Stand Transfers - Patient will perform sit to/from stand transfers with contact guard assistance and wit AD in order to improve functional mobility and safety. Outcome: Progressing Goal: Stand/Squat Pivot Transfers - Patient will perform stand pivot transfer to/from bed/chair/commode with modified independence and front-wheeled walker in order to improve functional mobility and safety. Outcome: Progressing treatment consisted of the following to progress towards the above goal(s): PT Evaluation and Treatment Time Therapeutic Activity Time Entry: 23 Treating Therapist: Jesica Rubio PT Additional Details: PT Co-Eval/Treatment Information Co-evaluation/co-treatment performed?: Yes, simultaneous billable skilled care was necessary due to medical complexity and functional deficits Other discipline: OT Rationale for need to co-eval/treat: cognition, postural control Co-treatment goal focus: balance, mobility, transfer PPE used during patient interaction: gloves Patient location at end of session: chair, RN aware, lines intact Alarms on at end of session: chair alarm, RN aware, none altered Needs in reach. Time In: 0954 Time Out: 1017 Total Visit Time: 23 minutes Total Treatment Time (skilled, billable minutes): 23 minutes Upon discontinuation of Acute Care Physical Therapy Services or patient discharge from the hospital this note represents the current Physical Therapy Discharge Summary. Acute Occupational Therapy Treatment Prior Gross Functional Mobility: independent, used device Current AM-PAC score(s): CURRENT AM-PAC Activity Raw Score: 13 Based on the above AM-PAC score(s), and OT clinical judgment, discharge destination recommendation is: [facility] Facility Barriers to discharge home: Patient needs assistance with functional mobility, Patient needs assistance with ADLs, Patient needs assistance with IADLs (see note below), Patient needs assistance with medication management, Patient needs assistance with self-care for medical condition (see note below), Cognitive impairments that impact safety (see note below), Pain management concerns, Assistance needed to ensure precautions are maintained (see note below) Mobility equipment available at home: front-wheeled walker, straight cane ADL equipment available at home: grab bars Equipment recommendations for discharge: patient lift, wheelchair Equipment issued: Current therapy frequency recommendation(s) in acute: 5 times a week Precautions and Weightbearing Status: OT Existing Precautions/Restrictions: fall, spinal Patient Safety Communication Prior to Visit: Nursing Current brace/orthoses: (none ordered) Subjective: Pt agreeable to OT session; discharging today Pain: General Pain Documentation (Adult, OB, Peds) Presence of Pain: denies pain/discomfort Presence of Pain Score (Auto-calculated): 0 Objective/Observation: Vitals/Vitals Responses to Treatment: VSS O2 Device: room air Cognition Overall Cognitive Status: Impaired Arousal/Alertness: Appropriate responses to stimuli Orientation Level: Oriented to person, Oriented to place, Oriented to time (Oct) Following Commands: Follows one step commands with increased time, Follows one step commands with repetition Safety Judgment: Decreased awareness of need for assistance, Decreased awareness of need for safety ADL Assessment/Intervention: ADLs: Eating Assistance: Grooming Assistance: Minimal Grooming Location: seated at sink, standing at sink Grooming Deficit: Activity tolerance, Generalized weakness, Pain, Balance, Retrieval of items, Attention, Initiation, Sequencing, Problem solving, Oral care, Wash/dry face Grooming Skilled Rationale (Verbal/Tactile/Visual/Demonstratio n): Facilitate positioning, Facilitate postural control, Cues for cognitive deficit, Technique of activity, Cues for increased safety, Setup, Maintain precautions Grooming Intervention/Details: while in sitting and standing on santy bass, pt performs performs oral care regimen and face washing tasks with cues for sequencing; cues and assist for balance and overall safety and following spinal precautions Bathing Assistance: UE Dressing Assistance: LE Dressing Assistance: Toilet Assistance: Total Toileting Location: bedside commode Toileting Deficit: Activity tolerance, Generalized weakness, Balance Toilet Skilled Rationale (Verbal/Tactile/Visual/Demonstratio n): Facilitate positioning, Facilitate postural control, Technique of activity, Setup Toileting Intervention/Details: pt received on BSC; not voidance, therefore pericare not required; use of santy Kumody for transfer on/off commode due to overll decreased strength and balance Extremity Assessments: See OT Evaluation flowsheet for Extremity Measurement updates. Balance: Sitting Balance Static Sitting-Level of Assistance: Contact guard Dynamic Sitting-Level of Assistance: Contact guard Skilled Rationale: Verbal cues, Tactile cues, Positioning, Facilitate anterior shift, Full extension to upright positioning/posture, Upright gaze/neck extension, Technique of activity, Cues for increased safety Sitting Balance Skilled Intervention/Details: cues for upright posture and overall safety while seated on santy stedy seat Standing Balance Static Standing-Level of Assistance: Moderate assistance, Maximum assistance, 2-person assist Standing-Balance Support: Gait belt, Stand assist device - non-powered Skilled Rationale: Verbal cues, Tactile cues, Positioning, Facilitate anterior shift, Full extension to upright positioning/posture, Upright gaze/neck extension, Technique of activity Standing Balance Skilled Intervention/Details: bouts of standing for transfers and grooming tasks with increased verbal/tactile cues for hip extension and upright posture Skin and Edema: Mobility Assessment/Intervention: Transfer Assessment/Intervention: Sit to Stand Transfer Nelson Level: Sit->Stand: moderate assist (50% patient effort) Physical Assist: Sit->Stand: 2 person assist Assistive Device: Sit->Stand: gait belt, stand assist device - non-powered Skilled Rationale: Verbal cues, Tactile cues, Positioning, Hand placement, Facilitate anterior shift, Full extension to upright positioning/posture, Upright gaze/neck extension, Technique of activity Skilled Intervention/Details: Sit->Stand: [place] [facility] [place] santy stedy seat Stand to Sit Transfer Nelson Level: Stand->Sit: moderate assist (50% patient effort) Physical Assist: Stand->Sit: 2 person assist Assistive Device: Stand->Sit: gait belt, stand assist device - non-powered, armed chair Skilled Rationale: Verbal cues, Tactile cues, Positioning, Controlled descent for sitting Skilled Intervention/Details: Stand->Sit: assist for eccentric control to BSC, santy stedy, and bedside chair Toilet Transfer Nelson Level: Toilet: moderate assist (50% patient effort) Physical Assist: Toilet: 2 person assist Assistive Device: Toilet: gait belt, stand assist device - non-powered Skilled Rationale: Verbal cues, Tactile cues, Positioning, Technique of activity Skilled Intervention/Details: Toilet: on/off BSC with use of santy stedy and cues for proper hand placement, initiation, and technique Functional Mobility: Functional Mobility Skilled Intervention/Details - Functional Mobility/Gait: dep via santy stedy Outcome Score(s): CURRENT AM-PAC Daily Activity Inpatient Short Form Putting on/Taking Off Lower Body Clothin - Total Assistance Bathin - A Lot of Assistance Toiletin - Total Assistance Putting on/Taking Off Upper Body Clothin - A Little Assistance Groomin - A Little Assistance Eatin - A Little Assistance CURRENT AM-PAC Activity Raw Score: 13 CURRENT AM-PAC Activity Functional Limitation/Modifier: 63.03% Currently Impaired in Daily Activity - CL Assessment & Plan: Pt is progressing towards goals, and pt demonstrated progression towards transfer and balance goals this session by performing grooming routine at the sink. Pt continues to be limited by impaired cognition, and decreased balance, mobility, strength, and activity tolerance. Pt presents below baseline functional performance due to decreased independence with ADLs. Pt would benefit from continued skilled OT throughout admission to maximize independence with ADLs and functional mobility. Patient Instruction/Education this session: Learners: Patient Education provided: Plan of care Plan for next session: standing balance/tolerance for ADLs Acute OT Goals Plan of Care by Coleen Larson OT at 03/23/2025 9:54 AM Version 1 of 1 Problem: OT - ADLs Goal: Lower Body Dressing - Patient will complete lower body dressing tasks with minimal assistance using adaptive equipment/compensatory strategies as needed for improved ability to complete self-care activities. Outcome: Ongoing Goal: Bathing - Patient will perform full body bathing routine with minimal assistance and use of AE, as needed, while seated for improved ability to complete self-care activities Outcome: Ongoing Problem: OT - Strength/ROM Goal: Strength/ROM ADL Participation - Patient will participate in UE exercise program with independence to prevent deconditioning while in hospital and to max UE ROM/Coordination/strength for ADLs. Outcome: Ongoing Problem: OT - Transfers Goal: Transfers Toilet/ Bedside Commode - Patient will transfer to/from toilet/bedside commode with minimal assistance for improved ability to safely complete ADLs. Outcome: Progressing Problem: OT - Balance Goal: Balance - Standing - Patient will perform 4-5 minutes of functional task in standing with minimal assistance and fair balance to promote safety and improved balance required for self-care activities. Outcome: Progressing Problem: OT - Other Goal: Precaution Adherence - Patient will demonstrate 100% adherence to precautions during all ADLs and functional transfers to promote safety during daily routine. Outcome: Progressing treatment consisted of the following to work and progress towards the above goal(s): OT Evaluation and Treatment Time Self Care/Home Management (ADLs) Time Entry: 23 Treating Therapist: Coleen Larson OT Additional Details: OT Co-Eval/Treatment Information Co-evaluation/co-treatment performed?: Yes, simultaneous billable skilled care was necessary due to medical complexity and functional deficits Other discipline: PT Rationale for need to co-eval/treat: coordination, postural control, cognition Co-treatment goal focus: self-care PPE used during patient interaction: gloves Patient location at end of session: chair Alarms on at end of session: Needs in reach. Time In: 09 Time Out: 1017 Total Visit Time: 23 minutes Total Treatment Time (skilled, billable minutes): 23 minutes Upon discontinuation of Acute Care Occupational Therapy Services or patient discharge from the hospital this note represents the current Occupational Therapy Discharge Summary. Social Work Final Discharge Plan and Transportation Community Agency Name(s) For Handoff: [facility] Phone For Handoff: [phone] Fax For Handoff: Transportation Transport Request Mode of Transfer: [facility] Name of Discharge Transport Company: [facility] Discharge Transport ETA: 03/23/25, 1:00p Patient medically stable for discharge per physician/medical team. Transportation arranged as listed above. Patient will discharge to [facility]. Facility, Patient, , Bedside RN, CCM, and medical team are aware and agreeable to transportation time. Social work will remain available to assist as needed. [facility] Social Work NEUROSURGERY PROGRESS NOTE: 03/23/25 S: Doing well this morning O: PE: NAD, easily awakens, oriented x4 PERRL EOMI FS TM FCx4 5/5 BUE 5/5 BLE SILT Temp: [97.5 F (36.4 C)-98.1 F (36.7 C)] 97.8 F (36.6 C) Pulse (Heart Rate): [83-106] 95 Resp Rate: [15-18] 15 BP: (100-121)/(59-70) 121/70 O2 Sat (%): [93 %-96 %] 93 % O2 Sat (%): 93 % (03/23 116) O2 Device: room air (03/23 400) Flow (L/min): 0 (03/23 400) I/O last 3 completed shifts: In: 180 [P.O.:180] Out: 500 [Urine:500] ICP: No data recorded WBC/Hgb/Hct/Plts: 8.16/10.6/32.3/402 (03/23 426) Na/K+/Phos/Mg/Ca: 139/3.4/--/--/-- (03/23 426) Bun/Creat/Cl/CO2/Glucose: 5/0.47/108/22/116 (03/23 426) Imaging: no new imaging overnight A/P: Gracie Lemons is a 75 y.o. male s/p right lateral T7/8 discectomy and chest tube placement, status post chest tube removal with post operative RLE weakness Neuro: neuro checks q8 - spaced out given delirium Cards: SBP<160 Resp: - hx of fibrotic lung disease, acute hypoxic respiratory failure - Pulm consulted, appreciate recommendations ID: abx for HAP FEN/GI: DIET CARB CONTROLLED PPX: SCDs, Pharm DVT ppx Dispo: IPR Please page NS3 ([phone]) with questions. Principal Problem: Aftercare following surgery Active Problems: Electrolyte disorder (K, Cl, or Na) Present on Admission: Aftercare following surgery Quality Self-Check Complexity. Hypokalemia - Continue to monitor and replete. Hypocalcemia - Continue to monitor and replete. Obesity, class I Body mass index is 30.2 kg/m . - Follow with PCP for dietary and lifestyle modifications. Hypothyroidism - Continue thyroid replacement. Other Reduced Mobility - continue PT/OT. Wound Documentation Wound Surgical 03/11/25 1525 Lateral;Right;Upper Flank (Active) Date First Assessed/Time First Assessed: 03/11/251524 Primary Wound Type: Surgical Present on Original Admission: No Incision Closure/Dressing: Dermabond;Primapore Wound Location Orientation: Lateral;Right;Upper Location: Flank Wound Other (Comment) 03/11/252129 Left;Posterior Ulnar (Active) Date First Assessed/Time First Assessed: 09/25/25 2130 Primary Wound Type: (c) Other (Comment) Present on Original Admission: No Wound Location Orientation: Left;Posterior Location: Ulnar Wound Pressure Injury Suspected 03/14/25 1235 Buttocks (Active) Date First Assessed/Time First Assessed: 03/14/25 1235 Primary Wound Type: Pressure Injury Secondary Wound Type - Pressure Injury: Suspected Device Related: no Wound Description: red cracked and bleeding Location: Buttocks Any conditions listed below are present on admission unless otherwise specified. . NS3 messaged: Patients K is 3.4. Please advise. Thanks! Care Management Progress Note Transportation for discharge arranged Mode of Transfer: [facility] Name of Discharge Transport Company: [facility] Discharge Transport ETA: 03/23/25, 1:00p Pick-up from [facility]9E 0972/A Destination [facility] Jessa Hall Pediatrician Managing Partner [phone] Placement Plan Referred Level of Care: IPR Barriers: Transport Current Referrals and Status 1. [facility]- Declined 2. [facility]-Accept, reserved 3. [facility] -accept [facility] accept pending additional review 5. [facility] - [facility] -Sent for review CHEMICAL RESEARCH ENGINEER called admissions at [facility], who reports their provider is still reviewing the referral. CHEMICAL RESEARCH ENGINEER left a voice message for [facility], requesting an update on the referral. CHEMICAL RESEARCH ENGINEER met with patient and spouse at bedside to discuss discharge planning. CHEMICAL RESEARCH ENGINEER provided update regarding referral status. CHEMICAL RESEARCH ENGINEER requested patient consider back up facility options of the facilities that responded back as available. Addendum 2:23 PM- CHEMICAL RESEARCH ENGINEER met with patient and at bedside to confirm facility choice. Patient's reports their third choice facility will be [facility]. CHEMICAL RESEARCH ENGINEER notified [facility] and requested confirmation that they could accept. They request updated therapy notes to re-review the referral. CHEMICAL RESEARCH ENGINEER to send updated therapy notes once available. Addendum 3:35 PM- CHEMICAL RESEARCH ENGINEER updated patient at bedside that their second choice facility can accept. Patient and spouse request [facility] be reserved. Facility requests transport be set for Saturday at 12pm or later. CHEMICAL RESEARCH ENGINEER updated patient, family and bedside RN together at bedside. Tranpsort set for 1pm Saturday; CHEMICAL RESEARCH ENGINEER to confirm this time with the medical team and will then update the patient, family, bedside RN, & Facilty. [facility] Social Work Acute Physical Therapy Treatment Prior Gross Functional Mobility: independent, used device Current AM-PAC score(s): CURRENT AM-PAC Mobility Raw Score: 10 Based on the above AM-PAC score(s) and PT clinical judgment, patient is a good candidate for discharge to Inpatient Rehab Facility Supporting Factors (would benefit from skilled therapy services): Impaired functional status, Patient status is anticipated to be appropriate to tolerate inpatient rehab therapy requirements at time of discharge from acute care, Decreased strength, Impaired balance, Decreased endurance necessitating skilled therapy services, but able to tolerate therapy requirements for inpatient rehab, Impaired self-care abilities, Fall risk Mobility equipment available at home: front-wheeled walker, straight cane ADL equipment available at home: grab bars Equipment needed for discharge: to be determined Current therapy frequency recommendation in acute: PT Therapy Frequency: 6 times a week Activity Recommendations for outside of rehab session: x2 person stand pivot transfer to left with gait belt to bedside chair. Precautions and Weightbearing Status: Existing Precautions/Restrictions: fall, spinal Lines/Tubes/Drains (Rehab Status): No critical lines at this time Patient Safety Communication Prior to Visit: Nursing Current brace/orthoses: (none ordered) Subjective: pt agreeable, greeted in bed Pain: General Pain Documentation (Adult, OB, Peds) Presence of Pain: reports pain/discomfort Pain Location: coccyx DVPRS (Defense and Veterans Pain Rating Scale) DVPRS: Rest: 5- moderate pain Objective/Observation: Vitals/Vitals Responses to Treatment: No adverse reaction to PT O2 Device: room air Cognition Overall Cognitive Status: Impaired Arousal/Alertness: Appropriate responses to stimuli Orientation Level: Oriented to person Following Commands: Follows one step commands with increased time Safety Judgment: Decreased awareness of need for assistance, Decreased awareness of need for safety Awareness of Errors: Decreased awareness of errors, Assistance required to correct errors made Deficits: Decreased awareness of deficits Extremity Assessments: See PT Evaluation flowsheet for Extremity Measurement updates. Balance: Sitting Balance Static Sitting-Level of Assistance: Contact guard Skilled Rationale: Hand placement, Positioning, Verbal cues, Tactile cues Sitting Balance Skilled Intervention/Details: seated EOB for 2-3 mins, verbal cues required to facilitate midline balance and use of UE for trunk stability. Standing Balance Static Standing-Level of Assistance: Maximum assistance Standing-Balance Support: Arm in arm, Gait belt Skilled Rationale: Positioning, Hand placement Standing Balance Skilled Intervention/Details: stood for x1 trial at EOB for ~45 seconds. Pt received verbal cueing to facilitate full upright extension. Mobility Assessment/Intervention: Supine to Sit Mobility Nelson Level: Supine->Sit: moderate assist (50% patient effort) Bed Features/Set-up: Supine->Sit: Use of bed rail, Head of bed elevated Skilled Rationale: Verbal cues, Hand placement, Initiation and execution of task, Technique of activity Skilled Intervention/Details: Supine->Sit: verbal cues required to initiate log roll technique. Tactile cues required for proper alignment of legs and upright posture at EOB Transfer Assessment/Intervention: Sit to Stand Transfer Nelson Level: Sit->Stand: maximum assist (25% patient effort) Assistive Device: Sit->Stand: gait belt, arm in arm Skilled Rationale: Positioning, Hand placement, Verbal cues, Facilitate anterior shift Skilled Intervention/Details: Sit->Stand: x2 trial from EOB. Verbal cues provided to facilitate forward weight shift and use of UE to initiate stand. Bed-Chair Transfer Nelson Level: Bed<->Chair: maximum assist (25% patient effort) Assistive Device: Bed<->Chair: gait belt, arm in arm Skilled Rationale: Sequencing, Hand placement, Verbal cues, Patellar block, Initiation and execution of task Skilled Intervention/Details: Bed<->Chair: x1 trial to the left from EOB. Proper foot positioning facilitated prior to transfer, verbal cueing resulted in 1-2 small steps with left foot before sitting back in chair. Outcome Score(s): CURRENT [facility] Basic Mobility Inpatient Short Form Turning over in bed: 2 - A Lot of Assistance Moving from lying on back to sittin - A Lot of Assistance Moving to and from bed to chair: 2 - A Lot of Assistance Sitting/standing from chair: 2 - A Lot of Assistance Walk in hospital room: 1 - Total Assistance Climbing 3-5 steps with a railin - Total Assistance CURRENT [facility] Mobility Raw Score: [address] [facility] Mobility Functional Limitation: 76.75% Impaired in Basic Mobility Interventions: Assessment & Plan: Pt tolerated PT session well . Pt is making good progress towards PT goals to Improve independence with transfers. Pt would benefit from continued skilled PT in order to address remaining deficits related to Bed mobility and Transfers Patient Instruction/Education this session: Learners: Patient Education provided: Functional transfers, Role of this discipline, Precautions/weight bearing status Plan for next session: improve bed mobility, standing tolerance Acute PT Goals Plan of Care by Jessica Antonio PT at 03/22/2025 2:23 PM Version 1 of 1 Problem: PT - General Goals Goal: Supine <-> Sit Transfers - Patient will perform supine to/from sit transfers with independence and without use of hospital bed features in order to improve functional mobility and safety. Outcome: Progressing Goal: Sit <-> Stand Transfers - Patient will perform sit to/from stand transfers with contact guard assistance and wit AD in order to improve functional mobility and safety. Outcome: Progressing Goal: Stand/Squat Pivot Transfers - Patient will perform stand pivot transfer to/from bed/chair/commode with modified independence and front-wheeled walker in order to improve functional mobility and safety. Outcome: Progressing treatment consisted of the following to progress towards the above goal(s): PT Evaluation and Treatment Time Therapeutic Activity Time Entry: 29 Treating Therapist: Zain Ashraf SPT Additional Details: PT Co-Eval/Treatment Information Co-evaluation/co-treatment performed?: No simultaneous skilled care performed PPE used during patient interaction: gloves Patient location at end of session: chair Alarms on at end of session: chair alarm Needs in reach. Time In: 08 Time Out: 830 Total Visit Time: 29 minutes Total Treatment Time (skilled, billable minutes): 29 minutes Upon discontinuation of Acute Care Physical Therapy Services or patient discharge from the hospital this note represents the current Physical Therapy Discharge Summary. Cosigned by Jessica Antonio PT at 03/22/2025 2:26 PM EDT Associated attestation - Jessica Antonio PT - 03/22/2025 2:26 PM EDT I, Jessica Antonio PT, provided direct guidance in the room during this patient care session. I attest that all documentation reflects accurate skilled clinical decisions and judgements. Neurosurgery Progress Note: Gracie Lemons 1950 [id number] Assessment/Plan: 03/11 Right lateral T7-8 discectomy Acute Postop RLE weakness ??Motor Exam: stable RLE weakness ??Pain: reports no pain; PRN tylenol ??Incision: cdi Acute Postop Blood Loss Anemia, Hgb today 11.5 Postop Imaging: MRI spine complete, Right Hip XR complete ??Activity: PT/OT consulted. Mobilize OOB TID. Utilize kristofer if necessary ??Diet: AAT : voiding spontaneously via condom cath ??GI: Last Bowel Movement: 03/22/25 senna, miralax ??Respiratory Care: Incentive spirometry 10 q hour, cough and deep breath ??DVT Prophylaxis: lovenox, scd, early mobility ??Dispo: IPR pending choice and precert Acute Hypoxic Respiratory Failure Fibrotic lung disease of unclear etiology Right Exudative Pleural Effusion s/p repeat CT placement (04/15/25) Pulmonology consult Chest tube was placed by IR 03/16, removed 03/18 per pulmonology (Keep dressing dry and in place for 48 hours) Continue to hold Ofev vanc/cefepime (ending 03/19) for empiric HAP coverage Pulmonary hygiene measures including PT/OT, IS, OOB as able Acute Delirium (improving) Likely related to extended hospital stay, ICU admission, medications Alert to self and place this AM Delirium precautions in place Hypokalemia (resolved) Potassium - 4.3 (03/12), 3.2 (03/17), 3.8 (03/18) , 3.8 (03/19, 03/20) , 3.9 (03/21), 3.8 (03/22) S/p Effer-K Sacrococcygeal, perianal and bilateral gluteals Ulcerations Unknown if present on admission Patient with recent history of frequent loose liquid stool incontinence. Unclear etiology incontinence associated skin damage vs pressure injury. Wound consulted - Please apply Z-Guard (orange top) twice daily and as needed with incontinence care in a thin layer. Cleanse with soft bath wipes or no rinse foaming soap (NO CHG WIPES). When cleansing, remove top layer of ointment only, then reapply. Do not scrub ointment off skin, it is designed to stick to raw areas and protect. Quality Self-Check Complexity. Hypocalcemia - Continue to monitor and replete. Obesity, class I Body mass index is 30.2 kg/m . - Follow with PCP for dietary and lifestyle modifications. Hypothyroidism - Continue thyroid replacement. Other Reduced Mobility - continue PT/OT. Wound Documentation Wound Surgical 03/11/25 1525 Lateral;Right;Upper Flank (Active) Date First Assessed/Time First Assessed: 03/11/251524 Primary Wound Type: Surgical Present on Original Admission: No Incision Closure/Dressing: Dermabond;Primapore Wound Location Orientation: Lateral;Right;Upper Location: Flank Wound Other (Comment) 03/11/252129 Left;Posterior Ulnar (Active) Date First Assessed/Time First Assessed: 03/11/252129 Primary Wound Type: (c) Other (Comment) Present on Original Admission: No Wound Location Orientation: Left;Posterior Location: Ulnar Wound Pressure Injury Suspected 03/14/25 123 Buttocks (Active) Date First Assessed/Time First Assessed: 03/14/251234 Primary Wound Type: Pressure Injury Secondary Wound Type - Pressure Injury: Suspected Device Related: no Wound Description: red cracked and bleeding Location: Buttocks Any conditions listed below are present on admission unless otherwise specified. . Fall Risk: Assessed for patient fall risk and discussed safety measures during rounding. Subjective: Patient examined at bedside. Reports no incisional pain. Denies new weakness or paresthesias. Voiding and passing flatus. Recent BM. Tolerating diet. Physical Exam: Neuro: Awake and alert, oriented to name, place, and time. 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 Sensation intact and equal throughout to light touch and pain Trachea midline. Lumbar: LLE: 5/5 throughout RLE: 2/5 HF, 3/5 KF/KE, 4/5 DF/PF Sensation intact and equal throughout to light touch and pain Orantes's, no clonus noted Dressing cdi Vital signs: Current: BP 100/63 (BP Location: Right arm, BP Position: Lying) Pulse 104 Temp 97.9 F (36.6 C) (Oral) Resp 15 Ht 1.651 m (5' 5) Wt 82.3 kg (181 lb 8 oz) SpO2 96% BMI 30.20 kg/m Smoking Status Never Last 24hrs Temp: [97.9 F (36.6 C)-98.9 F (37.2 C)] 97.9 F (36.6 C) Pulse (Heart Rate): [88-104] 104 Resp Rate: [15-16] 15 BP: (100-126)/(56-73) 100/63 O2 Sat (%): [92 %-97 %] 96 % Intake/Output Summary (Last 24 hours) at 03/22/2025 0726 Last data filed at 03/22/2025 0544 Gross per 24 hour Intake 80 ml Output 900 ml Net -820 ml Labs: Lab Results Component Value Date CO2 24 03/22/2025 Lab Results Component Value Date WBC 9.03 03/22/2025 HGB 11.5 (L) 03/22/2025 HCT 35.3 (L) 03/22/2025 MCV 98.1 (H) 03/22/2025 [facility] Provider Pager: [phone] NEUROSURGERY PROGRESS NOTE: 03/22/25 S: mentation continues to improve O: PE: NAD, easily awakens, oriented x3 (said 2023) PERRL EOMI FS TM FCx4 5/5 BUE 5/5 BLE SILT Temp: [97.9 F (36.6 C)-98.9 F (37.2 C)] 98.9 F (37.2 C) Pulse (Heart Rate): [88-98] 98 Resp Rate: [15-16] 16 BP: (111-126)/(56-73) 113/61 O2 Sat (%): [92 %-97 %] 97 % O2 Sat (%): 97 % (03/22 40) O2 Device: room air (03/22 349) Flow (L/min): 0 (03/22 349) I/O last 3 completed shifts: In: 250 [P.O.:250] Out: 1250 [Urine:1250] ICP: No data recorded WBC/Hgb/Hct/Plts: 9.03/11.5/35.3/405 (03/22 520) Na/K+/Phos/Mg/Ca: 137/3.8/--/--/-- (03/22 520) Bun/Creat/Cl/CO2/Glucose: 7/0.56/103/24/127 (03/22 520) Imaging: no new imaging overnight A/P: Gracie Lemons is a 75 y.o. male s/p right lateral T7/8 discectomy and chest tube placement, status post chest tube removal with post operative RLE weakness Neuro: neuro checks q8 - spaced out given delirium Cards: SBP<160 Resp: - hx of fibrotic lung disease, acute hypoxic respiratory failure - Pulm consulted, appreciate recommendations ID: abx for HAP FEN/GI: DIET CARB CONTROLLED PPX: SCDs, Pharm DVT ppx Dispo: IPR Please page [phone] ([phone]) with questions. Principal Problem: Aftercare following surgery Active Problems: Electrolyte disorder (K, Cl, or Na) Present on Admission: Aftercare following surgery Quality Self-Check Complexity. Hypocalcemia - Continue to monitor and replete. Obesity, class I Body mass index is 30.2 kg/m . - Follow with PCP for dietary and lifestyle modifications. Hypothyroidism - Continue thyroid replacement. Other Reduced Mobility - continue PT/OT. Wound Documentation Wound Surgical 03/11/25 152 Lateral;Right;Upper Flank (Active) Date First Assessed/Time First Assessed: 03/11/251524 Primary Wound Type: Surgical Present on Original Admission: No Incision Closure/Dressing: Dermabond;Primapore Wound Location Orientation: Lateral;Right;Upper Location: Flank Wound Other (Comment) 03/11/252129 Left;Posterior Ulnar (Active) Date First Assessed/Time First Assessed: 03/11/252129 Primary Wound Type: (c) Other (Comment) Present on Original Admission: No Wound Location Orientation: Left;Posterior Location: Ulnar Wound Pressure Injury Suspected 03/14/251234 Buttocks (Active) Date First Assessed/Time First Assessed: 03/14/251234 Primary Wound Type: Pressure Injury Secondary Wound Type - Pressure Injury: Suspected Device Related: no Wound Description: red cracked and bleeding Location: Buttocks Any conditions listed below are present on admission unless otherwise specified. . NEUROSURGERY PROGRESS NOTE: 03/21/25 S: improved mentation with increased sleepin governight O: PE: NAD, easily awakens, oriented x4 PERRL EOMI FS TM FCx4 5/5 BUE 5/5 LLE Rle: 3/5 HF, 4/5 distally SILT Chest tube removed w/ occlusive dressing in place Temp: [97.4 F (36.3 C)-98.3 F (36.8 C)] 98.3 F (36.8 C) Pulse (Heart Rate): [93-102] 95 Resp Rate: [15] 15 BP: (115-131)/(60-67) 126/61 O2 Sat (%): [94 %-95 %] 95 % O2 Sat (%): 95 % (03/21 752) O2 Device: room air (03/21 752) I/O last 3 completed shifts: In: 250 [P.O.:250] Out: 900 [Urine:900] ICP: No data recorded WBC/Hgb/Hct/Plts: 10.24/13.5/41.7/381 (03/21 332) Na/K+/Phos/Mg/Ca: 134/3.9/--/--/-- (03/21 332) Bun/Creat/Cl/CO2/Glucose: 10/0.70/98/24/138 (03/21 332-03/21 652) Imaging: no new imaging overnight A/P: Gracie Lemons is a 75 y.o. male s/p right lateral T7/8 discectomy and chest tube placement, status post chest tube removal with post operative RLE weakness Neuro: neuro checks q8 - spaced out given delirium Cards: SBP<160 Resp: - hx of fibrotic lung disease, acute hypoxic respiratory failure - Pulm consulted, appreciate recommendations ID: abx for HAP FEN/GI: DIET CARB CONTROLLED PPX: SCDs, Pharm DVT ppx Dispo: IPR Please page [phone] ([phone]) with questions. Principal Problem: Aftercare following surgery Active Problems: Electrolyte disorder (K, Cl, or Na) Present on Admission: Aftercare following surgery Quality Self-Check Complexity. Hyponatremia - Secondary to fluid shifts. Monitor. Hypocalcemia - Continue to monitor and replete. Obesity, class I Body mass index is 30.2 kg/m . - Follow with PCP for dietary and lifestyle modifications. Hypothyroidism - Continue thyroid replacement. Other Reduced Mobility - continue PT/OT. Wound Documentation Wound Surgical 03/11/25 1525 Lateral;Right;Upper Flank (Active) Date First Assessed/Time First Assessed: 03/11/25 152 Primary Wound Type: Surgical Present on Original Admission: No Incision Closure/Dressing: Dermabond;Primapore Wound Location Orientation: Lateral;Right;Upper Location: Flank Wound Other (Comment) 03/11/252129 Left;Posterior Ulnar (Active) Date First Assessed/Time First Assessed: 03/11/252129 Primary Wound Type: (c) Other (Comment) Present on Original Admission: No Wound Location Orientation: Left;Posterior Location: Ulnar Wound Pressure Injury Suspected 03/14/25 1235 Buttocks (Active) Date First Assessed/Time First Assessed: 03/14/25 1235 Primary Wound Type: Pressure Injury Secondary Wound Type - Pressure Injury: Suspected Device Related: no Wound Description: red cracked and bleeding Location: Buttocks Any conditions listed below are present on admission unless otherwise specified. . NEUROSURGERY PROGRESS NOTE: 03/20/25 S: Some waxing/waning O: PE: NAD, wakes up with prompting, oriented to self and hospital w/ choices, able to eventually answer situational questions PERRL EOMI FS TM FCx4 5/5 BUE 5/5 LLE Rle: 3/5 HF, 4/5 distally SILT Chest tube removed w/ occlusive dressing in place Temp: [97.2 F (36.2 C)-99.1 F (37.3 C)] 97.6 F (36.4 C) Pulse (Heart Rate): [88-107] 97 Resp Rate: [15-24] 15 BP: (96-127)/(57-72) 126/65 O2 Sat (%): [94 %] 94 % O2 Sat (%): 94 % (03/20 0756) O2 Device: room air (03/20 0845) I/O last 3 completed shifts: In: 120 [P.O.:120] Out: 1125 [Urine:1125] ICP: No data recorded WBC/Hgb/Hct/Plts: 9.78/13.0/39.6/352 (03/20 424) Na/K+/Phos/Mg/Ca: 133/3.8/--/--/-- (03/20 424) Bun/Creat/Cl/CO2/Glucose: 11/0.73/98/25/137 (03/20 424-03/20 613) Imaging: no new imaging overnight A/P: Gracie Lemons is a 75 y.o. male s/p right lateral T7/8 discectomy and chest tube placement, status post chest tube removal with post operative RLE weakness Neuro: neuro checks q8 - spaced out given delirium Cards: SBP<160 Resp: - hx of fibrotic lung disease, acute hypoxic respiratory failure - Pulm consulted, appreciate recommendations ID: abx for HAP FEN/GI: DIET CARB CONTROLLED PPX: SCDs, Pharm DVT ppx Dispo: pending clinical progression Please page [phone] ([phone]) with questions. Principal Problem: Aftercare following surgery Active Problems: Electrolyte disorder (K, Cl, or Na) Present on Admission: Aftercare following surgery Quality Self-Check Complexity. Hyponatremia - Secondary to fluid shifts. Monitor. Hypocalcemia - Continue to monitor and replete. Obesity, class I Body mass index is 30.2 kg/m . - Follow with PCP for dietary and lifestyle modifications. Hypothyroidism - Continue thyroid replacement. Other Reduced Mobility - continue PT/OT. Wound Documentation Wound Surgical 03/11/25 1525 Lateral;Right;Upper Flank (Active) Date First Assessed/Time First Assessed: 03/11/25 152 Primary Wound Type: Surgical Present on Original Admission: No Incision Closure/Dressing: Dermabond;Primapore Wound Location Orientation: Lateral;Right;Upper Location: Flank Wound Other (Comment) 03/11/252129 Left;Posterior Ulnar (Active) Date First Assessed/Time First Assessed: 03/11/252129 Primary Wound Type: (c) Other (Comment) Present on Original Admission: No Wound Location Orientation: Left;Posterior Location: Ulnar Wound Pressure Injury Suspected 03/14/251234 Buttocks (Active) Date First Assessed/Time First Assessed: 03/14/25 123 Primary Wound Type: Pressure Injury Secondary Wound Type - Pressure Injury: Suspected Device Related: no Wound Description: red cracked and bleeding Location: Buttocks Any conditions listed below are present on admission unless otherwise specified. . Acute Physical Therapy Treatment Prior Gross Functional Mobility: independent, used device Current AM-PAC score(s): CURRENT AM-PAC Mobility Raw Score: 9 Based on the above AM-PAC score(s) and PT clinical judgment, patient is a good candidate for discharge to Inpatient Rehab Facility Supporting Factors (would benefit from skilled therapy services): Impaired functional status, Patient status is anticipated to be appropriate to tolerate inpatient rehab therapy requirements at time of discharge from acute care, Decreased strength, Impaired balance, Decreased endurance necessitating skilled therapy services, but able to tolerate therapy requirements for inpatient rehab, Impaired self-care abilities, Fall risk Mobility equipment available at home: front-wheeled walker, straight cane ADL equipment available at home: grab bars Equipment needed for discharge: to be determined Current therapy frequency recommendation in acute: PT Therapy Frequency: 6 times a week Activity Recommendations for outside of rehab session: x2 person bed to chair Precautions and Weightbearing Status: Existing Precautions/Restrictions: fall, spinal Patient Safety Communication Prior to Visit: Nursing Subjective: I just cant really think of much right now Pain: General Pain Documentation (Adult, OB, Peds) Presence of Pain: denies pain/discomfort Presence of Pain Score (Auto-calculated): 0 DVPRS (Defense and Veterans Pain Rating Scale) DVPRS: Rest: 0- no pain Objective/Observation: Vitals/Vitals Responses to Treatment: Tolerates session well Cognition Overall Cognitive Status: Impaired Arousal/Alertness: Delayed responses to stimuli Orientation Level: Oriented to person Following Commands: Follows one step commands with repetition, Follows one step commands with increased time Safety Judgment: Decreased awareness of need for safety, Decreased awareness of need for assistance Awareness of Errors: Decreased awareness of errors, Assistance required to correct errors made Deficits: Decreased awareness of deficits Attention Span: Attends with cues to redirect Extremity Assessments: See PT Evaluation flowsheet for Extremity Measurement updates. Skin and Edema: Balance: Sitting Balance Static Sitting-Level of Assistance: Contact guard Dynamic Sitting-Level of Assistance: Minimum assistance Skilled Rationale: Visual cues, Tactile cues, Verbal cues, Hand placement, Positioning, Technique of activity Sitting Balance Skilled Intervention/Details: Difficulty with midline in sitting. Frequently with min LOB using UE for maintaining upright. Improved safety with re direction to activity Standing Balance Static Standing-Level of Assistance: Maximum assistance Dynamic Standing-Level of Assistance: Maximum assistance Standing-Balance Support: Arm in arm Skilled Rationale: Positioning, Sequencing, Hand placement, Verbal cues, Tactile cues, Technique of activity Standing Balance Skilled Intervention/Details: Pt able to reach for full standing with support at hips, but with posterior lean throughout. Tolerates roughly 30 seconds of standing. Needs R LE knee block due to frequent buckling Mobility Assessment/Intervention: Supine to Sit Mobility Nelson Level: Supine->Sit: maximum assist (25% patient effort) Bed Features/Set-up: Supine->Sit: Head of bed elevated, Use of bed rail Skilled Rationale: Positioning, Sequencing, Hand placement, Verbal cues, Tactile cues, Technique of activity Skilled Intervention/Details: Supine->Sit: Increased cues needed for log roll due to confusion. Despite cues needs increased assist due to R LE weakness. No recall of spinal precautions. Appears to have limited carryover with education today Transfer Assessment/Intervention: Sit to Stand Transfer Nelson Level: Sit->Stand: maximum assist (25% patient effort) Assistive Device: Sit->Stand: arm in arm Skilled Rationale: Positioning, Sequencing, Tactile cues, Verbal cues, Hand placement, Patellar block, Ischial assist, Technique of activity Skilled Intervention/Details: Sit->Stand: x5 in session. Working on weight shift. Improves with min A for R LE positioning for STS, Bed-Chair Transfer Nelson Level: Bed<->Chair: maximum assist (25% patient effort) Assistive Device: Bed<->Chair: arm in arm Skilled Rationale: Sequencing, Hand placement, Verbal cues, Tactile cues, Technique of activity, Upright gaze/neck extension, Ischial assist, Patellar block Skilled Intervention/Details: Bed<->Chair: Transfer to L due to R LE weakness. Initially able to initiate steps to the chair, but due to R LE limited ablity to weight shift despite knee block. Gait/Functional Mobility Assessment/Intervention: Stairs Assessment/Intervention: Outcome Score(s): CURRENT [facility] Basic Mobility Inpatient Short Form Turning over in bed: 2 - A Lot of Assistance Moving from lying on back to sittin - A Lot of Assistance Moving to and from bed to chair: 1 - Total Assistance Sitting/standing from chair: 2 - A Lot of Assistance Walk in hospital room: 1 - Total Assistance Climbing 3-5 steps with a railin - Total Assistance CURRENT [facility] Mobility Raw Score: [address] [facility] Mobility Functional Limitation: 81.38% Impaired in Basic Mobility Assessment & Plan: Patient with limited progression this session. Presents with confusion, weakness and limited standing tolerance that continues to benefi from therapy services Patient Instruction/Education this session: Learners: Patient Education provided: Functional transfers Plan for next session: Work on bed to chair transfers Acute PT Goals Plan of Care by John Torrez PT at 03/20/2025 9:00 AM Version 1 of 1 Problem: PT - General Goals Goal: Supine <-> Sit Transfers - Patient will perform supine to/from sit transfers with independence and without use of hospital bed features in order to improve functional mobility and safety. Outcome: Progressing Goal: Sit <-> Stand Transfers - Patient will perform sit to/from stand transfers with contact guard assistance and wit AD in order to improve functional mobility and safety. Outcome: Progressing Goal: Stand/Squat Pivot Transfers - Patient will perform stand pivot transfer to/from bed/chair/commode with modified independence and front-wheeled walker in order to improve functional mobility and safety. Outcome: Progressing Goal: Ambulation - Patient will ambulate 25 feet with contact guard assistance and front-wheeled walker to improve ability to safely navigate home and community. Outcome: Progressing Goal: Stairs - Patient will ascend/descend 3 stairs with modified independence, straight cane, and single railing(s) to improve ability to safely navigate home and community. Outcome: Progressing treatment consisted of the following to progress towards the above goal(s): PT Evaluation and Treatment Time Therapeutic Activity Time Entry: 28 Treating Therapist: John Torrez PT Additional Details: PT Co-Eval/Treatment Information Co-evaluation/co-treatment performed?: No simultaneous skilled care performed PPE used during patient interaction: gloves Patient location at end of session: chair Alarms on at end of session: chair alarm Needs in reach. Time In: 910 Time Out: 938 Total Visit Time: 28 minutes Total Treatment Time (skilled, billable minutes): 28 minutes Upon discontinuation of Acute Care Physical Therapy Services or patient discharge from the hospital this note represents the current Physical Therapy Discharge Summary. PULMONARY CONSULT SIGN OFF Thank you for allowing us to participate in the care of this patient. Our consult team will sign off today, 03/19/2025. Regarding follow up, please take note of: Follow up plan: Patient requires follow up with our specialty, but plans to continue following with their local finisher hand. Please ensure they have a follow up appointment within 2-4 weeks of discharge Please ensure the following tests are obtained prior to outpatient follow up visit: None If you have any further questions regarding the care of this patient, please do not hesitate to reach out to our team. --- [facility] Pulmonary Consult Service --- Holger Vásquez Fellow, Pulmonary & Critical Care Medicine [facility] Cosigned by Petr Acosta MD at 03/19/2025 8:49 PM EDT Placement Plan Expected Discharge Date: 03/23/2025 Referred Level of Care: IPR Barriers: Accepting facility, Patient choice, transport Current Referrals and Status 1. [facility]- under review 2. [facility]- under review 3. [facility] -accept 4. [facility]- accept pending additional review CHEMICAL RESEARCH ENGINEER met with patient and Spouse at bedside with list of accepting and referred facilities. Patient choice is [place] because that is where they live. Second choice is [facility]. CHEMICAL RESEARCH ENGINEER called the two patient choice facilities to let them know updated notes are available to review and they will look again at the referral and let CHEMICAL RESEARCH ENGINEER know if they can accept. Addendum 3pm- SW sent PT, OT, and Doc note to [place] for review. 4pm- Emailed referral to [facility] Evelia Nails MSW, SKILLED NURSING FACILITY COUNSELOR Motorcycle Sales Associate Float Acute Occupational Therapy Treatment Prior Gross Functional Mobility: independent, used device Current AM-PAC score(s): CURRENT AM-PAC Activity Raw Score: 13 Based on the above AM-PAC score(s), and OT clinical judgment, discharge destination recommendation is: [facility] Facility Barriers to discharge home: Patient needs assistance with functional mobility, Patient needs assistance with ADLs, Patient needs assistance with IADLs (see note below), Patient needs assistance with medication management, Patient needs assistance with self-care for medical condition (see note below), Cognitive impairments that impact safety (see note below), Pain management concerns, Assistance needed to ensure precautions are maintained (see note below) Mobility equipment available at home: front-wheeled walker, straight cane ADL equipment available at home: grab bars Equipment recommendations for discharge: patient lift, wheelchair Equipment issued: Current therapy frequency recommendation(s) in acute: 5 times a week Activity Recommendations for outside of rehab session: Kristofer lift. Precautions and Weightbearing Status: OT Existing Precautions/Restrictions: fall, spinal (Exit alarm.) Lines/Tubes/Drains (Rehab Status): No critical lines at this time Patient Safety Communication Prior to Visit: Nursing Subjective: Pt reported, This is tough after completing 1st stand from bedside chair. Pain: General Pain Documentation (Adult, OB, Peds) Presence of Pain: reports pain/discomfort Pain Location: buttocks, left, buttocks, right Objective/Observation: Vitals/Vitals Responses to Treatment: No adverse reactions noted. O2 Device: room air Vision Screen Currently wearing corrective lenses: No Clinical Observations: This date, pt appears to present with limitations in depth perception when reaching for objects. Visual Impairments Observed?: Yes Speech Speech: no gross deficits noted Hearing Hearing: hard of hearing Cognition Overall Cognitive Status: Impaired Arousal/Alertness: Delayed responses to stimuli Orientation Level: Oriented to person, Oriented to place Following Commands: Follows one step commands with increased time, Follows one step commands with repetition Safety Judgment: Decreased awareness of need for assistance, Decreased awareness of need for safety Awareness of Errors: Decreased awareness of errors Deficits: Decreased awareness of deficits Attention Span: Attends with cues to redirect, Difficulty attending to directions, Difficulty dividing attention Memory: Decreased intermission coordinator memory, Decreased short term memory Problem Solving: Assistance required to identify errors made, Assistance required to generate solutions, Assistance required to implement solutions Cognition Comments: Delayed processing rate/motor planning; Moderate confusion; Overall, decreased insight into deficits/safety awareness. ADL Assessment/Intervention: Grooming Assistance: Minimal Grooming Location: seated at sink Grooming Deficit: Wash/dry face, Attention, Initiation, Sequencing, Problem solving, Follows safety/precautions, Balance, Retrieval of items, Manipulation of items, Denture care, Oral care, Opening/closing containers, Maintain grasp of items, Generalized weakness, Activity tolerance, Increased time to complete, Pain Grooming Skilled Rationale (Verbal/Tactile/Visual/Demonstratio n): Setup, Cues for increased safety, Technique of activity, Cues for cognitive deficit, Facilitate postural control, Facilitate positioning Grooming Intervention/Details: Pt demonstrated increased difficulty with depth perception when reaching for ADL items, as well as increased difficulty with fine motor coordination/precision when manipulating ADL tools. Pt also requiring moderate cues for overall seqeuencing of tasks and moderately increased time/effort for performance. UE Dressing Assistance: Minimal UE Dressing Location: seated in chair UE Dressing Deficit: Other (Comment), Attention, Initiation, Sequencing, Problem solving, Follows safety/precautions, Retrieval of items, Manipulation of items, Balance, Generalized weakness, Activity tolerance, Increased time to complete (Changing hospital gown.) UE Dressing Skilled Rationale (Verbal/Tactile/Visual/Demonstratio n): Setup, Cues for increased safety, Technique of activity, Cues for cognitive deficit, Facilitate postural control, Facilitate positioning UE Dressing Intervention/Details: Pt mostly required cues for orientation of gown and sequencing of task. LE Dressing Assistance: Total LE Dressing Location: seated in chair LE Dressing Deficit: Don/doff R sock, Don/doff L sock LE Dressing Intervention/Details: Pt would benefit from use of AE in future sessions for lower body management. Toilet Assistance: Total Toileting Location: other, see comments (Pt found incontinent of bladder at start of session.) Toileting Intervention/Details: Pt required total assistance for hygiene/shyann-care in seated/standing position at sink, mostly limited by seated/standing balance and fine motor coordination/precision. Extremity Assessments: See OT Evaluation flowsheet for Extremity Measurement updates. Balance: Sitting Balance Static Sitting-Level of Assistance: Contact guard Dynamic Sitting-Level of Assistance: Minimum assistance Sitting Balance Skilled Intervention/Details: Seated in bedside chair for about 15-20 minutes while completing upper/lower body dressing, toileting, and grooming, mostly requiring cues for safety and with retropulsive lean. Standing Balance Static Standing-Level of Assistance: Moderate assistance, 2-person assist Dynamic Standing-Level of Assistance: Maximum assistance, 2-person assist Standing Balance Skilled Intervention/Details: Standing for about 20-30 seconds (x 2 trials), mostly requiring cues for safety and with initial hip extension, kyphotic posture, and buckling LEs. Skin and Edema: Skin Integrity Skin Integrity Description: WFL (Visible areas.) Edema Edema: none noted Mobility Assessment/Intervention: Supine to Sit Mobility Skilled Intervention/Details: Supine->Sit: Pt greeted/left seated in bedside chair. Transfer Assessment/Intervention: Sit to Stand Transfer Nelson Level: Sit->Stand: moderate assist (50% patient effort) (x 2 trials from bedside chair.) Physical Assist: Sit->Stand: 2 person assist Assistive Device: Sit->Stand: gait belt, arm in arm Skilled Rationale: Cues for increased safety, Initiation and execution of task, Technique of activity, Verbal cues, Tactile cues, Visual cues, Hand placement, Sequencing, Positioning, Upright gaze/neck extension, Full extension to upright positioning/posture, Facilitate anterior shift, Ischial assist, Patellar block Skilled Intervention/Details: Sit->Stand: Cues for sequencing/safety, as well as assisting with initial hip extension, kyphotic posture, and buckling LEs. Stand to Sit Transfer Nelson Level: Stand->Sit: moderate assist (50% patient effort) Physical Assist: Stand->Sit: 2 person assist Assistive Device: Stand->Sit: gait belt, arm in arm Skilled Rationale: Cues for increased safety, Initiation and execution of task, Technique of activity, Controlled descent for sitting, Tactile cues, Verbal cues, Hand placement, Sequencing, Positioning, Ischial assist Outcome Score(s): CURRENT [facility] Daily Activity Inpatient Short Form Putting on/Taking Off Lower Body Clothin - Total Assistance Bathin - A Lot of Assistance Toiletin - Total Assistance Putting on/Taking Off Upper Body Clothin - A Little Assistance Groomin - A Little Assistance Eatin - A Little Assistance CURRENT [facility] Activity Raw Score: [address] [facility] Activity Functional Limitation/Modifier: 63.03% Currently Impaired in Daily Activity - CL Assessment & Plan: Pt is demonstrating Fair progress in occupational therapy goals this date, primarily in static seated balance, left UE ROM, right UE ROM, speech, and alertness. However, pt's barriers to discharge and overall inhibitors in ADL/IADL/functional transfer performance/independence include pt's deficits in endurance/activity tolerance, bed mobility, dynamic seated balance, static standing balance, dynamic standing balance, functional transfers, functional mobility, left UE strength, right UE strength, left UE coordination, right UE coordination, vision, and cognition. Pt would benefit from continued acute occupational therapy services prior to discharge to address noted deficits and progress towards achieving increased independence in occupational performance. Patient Instruction/Education this session: Learners: Patient, Spouse Education provided: Balance training, Bed mobility, Discharge recommendations, Plan of care, Positioning, Role of this discipline, Safety, Activity outside of therapy, Fall precautions, Functional transfers, Pain management, Precautions/weight bearing status Plan for next session: Therapist to address further standing tolerance/functional transfer performance, UE strengthening, and ADL engagement with use of AE. Acute OT Goals Plan of Care by Kelli Bermudez OT at 03/19/2025 12:25 PM Version 1 of 1 Problem: OT - ADLs Goal: Bathing - Patient will perform full body bathing routine with minimal assistance and use of AE, as needed, while seated for improved ability to complete self-care activities Outcome: Ongoing Problem: OT - Transfers Goal: Transfers Toilet/ Bedside Commode - Patient will transfer to/from toilet/bedside commode with minimal assistance for improved ability to safely complete ADLs. Outcome: Ongoing Problem: OT - Strength/ROM Goal: Strength/ROM ADL Participation - Patient will participate in UE exercise program with independence to prevent deconditioning while in hospital and to max UE ROM/Coordination/strength for ADLs. Outcome: Ongoing Problem: OT - ADLs Goal: Lower Body Dressing - Patient will complete lower body dressing tasks with minimal assistance using adaptive equipment/compensatory strategies as needed for improved ability to complete self-care activities. Outcome: Progressing Problem: OT - Balance Goal: Balance - Standing - Patient will perform 4-5 minutes of functional task in standing with minimal assistance and fair balance to promote safety and improved balance required for self-care activities. Outcome: Progressing Problem: OT - Other Goal: Precaution Adherence - Patient will demonstrate 100% adherence to precautions during all ADLs and functional transfers to promote safety during daily routine. Outcome: Progressing treatment consisted of the following to work and progress towards the above goal(s): OT Evaluation and Treatment Time Self Care/Home Management (ADLs) Time Entry: 14 Therapeutic Activity Time Entry: 13 Treating Therapist: Kelli Bermudez OT Additional Details: OT Co-Eval/Treatment Information Co-evaluation/co-treatment performed?: No simultaneous skilled care performed PPE used during patient interaction: gloves Patient location at end of session: chair Alarms on at end of session: RN aware, chair alarm Needs in reach. Time In: 1224 Time Out: 1251 Total Visit Time: 27 minutes Total Treatment Time (skilled, billable minutes): 27 minutes Upon discontinuation of Acute Care Occupational Therapy Services or patient discharge from the hospital this note represents the current Occupational Therapy Discharge Summary. Acute Physical Therapy Treatment Prior Gross Functional Mobility: independent, used device Current AM-PAC score(s): CURRENT AM-PAC Mobility Raw Score: 10 Based on the above AM-PAC score(s) and PT clinical judgment, patient is a good candidate for discharge to Inpatient Rehab Facility Supporting Factors (would benefit from skilled therapy services): Impaired functional status, Patient status is anticipated to be appropriate to tolerate inpatient rehab therapy requirements at time of discharge from acute care, Decreased strength, Impaired balance, Decreased endurance necessitating skilled therapy services, but able to tolerate therapy requirements for inpatient rehab, Impaired self-care abilities, Fall risk Mobility equipment available at home: front-wheeled walker, straight cane ADL equipment available at home: grab bars Equipment needed for discharge: to be determined Current therapy frequency recommendation in acute: PT Therapy Frequency: 6 times a week Activity Recommendations for outside of rehab session: kristofer Precautions and Weightbearing Status: Existing Precautions/Restrictions: fall, spinal Patient Safety Communication Prior to Visit: Nursing Subjective: Pt is agreeable to PT session. Reports she hasn't been out of bed in a couple days. Pain: General Pain Documentation (Adult, OB, Peds) Presence of Pain: reports pain/discomfort Pain Location: back DVPRS (Defense and Veterans Pain Rating Scale) DVPRS: Rest: 0- no pain DVPRS: Activity: (reported mildly increased pain with mobility but did not rate) Objective/Observation: O2 Device: room air Cognition Overall Cognitive Status: Impaired Arousal/Alertness: Delayed responses to stimuli Orientation Level: Oriented to person Following Commands: Follows one step commands with increased time, Follows one step commands with repetition Safety Judgment: Decreased awareness of need for assistance, Decreased awareness of need for safety Awareness of Errors: Decreased awareness of errors Extremity Assessments: See PT Evaluation flowsheet for Extremity Measurement updates. Balance: Sitting Balance Static Sitting-Level of Assistance: Contact guard Dynamic Sitting-Level of Assistance: Minimum assistance Skilled Rationale: Verbal cues, Sequencing, Hand placement, Facilitate anterior shift, Technique of activity Sitting Balance Skilled Intervention/Details: Pt sat EOB x 10 minutes with contact guard to minimal assistance x 1 to maintain a centered and upright posture due to posterior trunk lean Standing Balance Static Standing-Level of Assistance: Maximum assistance Dynamic Standing-Level of Assistance: Dependent Standing-Balance Support: Gait belt, Arm in arm Mobility Assessment/Intervention: Supine to Sit Mobility Nelson Level: Supine->Sit: maximum assist (25% patient effort) Bed Features/Set-up: Supine->Sit: Head of bed elevated Skilled Rationale: Verbal cues, Technique of activity, Maintain precautions Skilled Intervention/Details: Supine->Sit: Cueing for use of the log rolling technique. Transfer Assessment/Intervention: Sit to Stand Transfer Nelson Level: Sit->Stand: maximum assist (25% patient effort) Assistive Device: Sit->Stand: gait belt, arm in arm Skilled Rationale: Verbal cues, Hand placement, Facilitate anterior shift, Technique of activity Skilled Intervention/Details: Sit->Stand: x 2 from the EOB Stand to Sit Transfer Nelson Level: Stand->Sit: maximum assist (25% patient effort) Assistive Device: Stand->Sit: gait belt, armed chair Skilled Rationale: Verbal cues, Hand placement, Controlled descent for sitting Skilled Intervention/Details: Stand->Sit: Stand-pivot from the EOB to the chair to the left with blocking provided on the right knee to prevent buckling. Outcome Score(s): CURRENT [facility] Basic Mobility Inpatient Short Form Turning over in bed: 2 - A Lot of Assistance Moving from lying on back to sittin - A Lot of Assistance Moving to and from bed to chair: 2 - A Lot of Assistance Sitting/standing from chair: 2 - A Lot of Assistance Walk in hospital room: 1 - Total Assistance Climbing 3-5 steps with a railin - Total Assistance CURRENT [facility] Mobility Raw Score: [address] [facility] Mobility Functional Limitation: 76.75% Impaired in Basic Mobility Assessment & Plan: Pt is making fair progress towards their established goals. The pt was able to resume bed mobility and OOB activity with maximum assistance x 1. Pt is primarily limited by pain, impaired functional strength, impaired dynamic balance, and impaired functional endurance. Continued skilled PT recommended to address their impairments and progress towards their functional goals per pt tolerance. Patient Instruction/Education this session: Learners: Patient Education provided: Bed mobility, Functional transfers, Precautions/weight bearing status Teaching method: Verbal Education/Instruction Learner response: Applies knowledge Plan for next session: Progress transfers per pt tolerance Acute PT Goals Plan of Care by Leora Gonzalez PT at 03/19/2025 11:00 AM Version 1 of 1 Problem: PT - General Goals Goal: Supine <-> Sit Transfers - Patient will perform supine to/from sit transfers with independence and without use of hospital bed features in order to improve functional mobility and safety. Outcome: Ongoing Goal: Sit <-> Stand Transfers - Patient will perform sit to/from stand transfers with contact guard assistance and wit AD in order to improve functional mobility and safety. Outcome: Ongoing Goal: Stand/Squat Pivot Transfers - Patient will perform stand pivot transfer to/from bed/chair/commode with modified independence and front-wheeled walker in order to improve functional mobility and safety. Outcome: Ongoing Goal: Ambulation - Patient will ambulate 25 feet with contact guard assistance and front-wheeled walker to improve ability to safely navigate home and community. Outcome: Ongoing Goal: Stairs - Patient will ascend/descend 3 stairs with modified independence, straight cane, and single railing(s) to improve ability to safely navigate home and community. Outcome: Ongoing treatment consisted of the following to progress towards the above goal(s): PT Evaluation and Treatment Time Therapeutic Activity Time Entry: 24 Treating Therapist: Leora Gonzalez PT Additional Details: PT Co-Eval/Treatment Information Co-evaluation/co-treatment performed?: No simultaneous skilled care performed PPE used during patient interaction: gloves Patient location at end of session: chair Alarms on at end of session: chair alarm, RN aware Needs in reach. Time In: 1100 Time Out: 1124 Total Visit Time: 24 minutes Total Treatment Time (skilled, billable minutes): 24 minutes Upon discontinuation of Acute Care Physical Therapy Services or patient discharge from the hospital this note represents the current Physical Therapy Discharge Summary. Care Management Progress Note SDOH questions completed at bedside with patient. No needs identified at this time. SW will follow and assist as needed. EARL FerreraW [employer] Float Neurosurgery Progress Note: Gracie Lemons 1950 [id number] Assessment/Plan: 03/11 Right lateral T7-8 discectomy Acute Postop RLE weakness ??Motor Exam: stable RLE weakness ??Pain: reports no pain; PRN tylenol ??Incision: c/d/I Acute Postop Blood Loss Anemia, Hgb today 12.4 Postop Imaging: MRI spine complete, Right Hip XR complete ??Activity: PT/OT consulted. Mobilize OOB TID. Utilize kristofer if necessary ??Diet: AAT : voiding spontaneously via condom cath ??GI: Last Bowel Movement: 03/16/25 senna, miralax, daily suppository, smog for later this afternoon if no response to suppository ??Respiratory Care: Incentive spirometry 10 q hour, cough and deep breath ??DVT Prophylaxis: lovenox, scd, early mobility ??Dispo: IPR pending PTOT 2. Acute Hypoxic Respiratory Failure Fibrotic lung disease of unclear etiology Right Exudative Pleural Effusion s/p repeat CT placement (04/15/25) Pulmonology consult Chest tube was placed by IR 03/16, removed 03/18 per pulmonology (Keep dressing dry and in place for 48 hours) Continue to hold Ofev vanc/cefepime (ending 03/19) for empiric HAP coverage Pulmonary hygiene measures including PT/OT, IS, OOB as able Acute Delirium (improving) Likely related to extended hospital stay, ICU admission, medications Alert to self and place this AM Delirium precautions in place Quality Self-Check Complexity. Hyponatremia - Secondary to fluid shifts. Monitor. Hypocalcemia - Continue to monitor and replete. Obesity, class I Body mass index is 30.2 kg/m . - Follow with PCP for dietary and lifestyle modifications. Hypothyroidism - Continue thyroid replacement. Other Reduced Mobility - continue PT/OT. Wound Documentation Wound Surgical 03/11/25 1525 Lateral;Right;Upper Flank (Active) Date First Assessed/Time First Assessed: 03/11/25 1525 Primary Wound Type: Surgical Present on Original Admission: No Incision Closure/Dressing: Dermabond;Primapore Wound Location Orientation: Lateral;Right;Upper Location: Flank Wound Other (Comment) 03/11/252129 Left;Posterior Ulnar (Active) Date First Assessed/Time First Assessed: 03/11/252129 Primary Wound Type: (c) Other (Comment) Present on Original Admission: No Wound Location Orientation: Left;Posterior Location: Ulnar Wound Pressure Injury Suspected 03/14/251234 Buttocks (Active) Date First Assessed/Time First Assessed: 03/14/251234 Primary Wound Type: Pressure Injury Secondary Wound Type - Pressure Injury: Suspected Device Related: no Wound Description: red cracked and bleeding Location: Buttocks Any conditions listed below are present on admission unless otherwise specified. . Fall Risk: Assessed for patient fall risk and discussed safety measures during rounding. Subjective: Patient examined at bedside. Reports no incisional pain. Denies new weakness or paresthesias. Voiding and passing flatus. Reports he has not had a BM since admission. Tolerating diet. Physical Exam: Neuro: Awake and alert, oriented to name, place, and time. 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 Sensation intact and equal throughout to light touch and pain Trachea midline. Lumbar: Motor strength 5/5 bilateral LLE: 5/5 throughout RLE: 2/5 HF, 3/5 KF/KE, 4/5 DF/PF Sensation intact and equal throughout to light touch and pain Orantes's, no clonus noted Dressing dry and intact, no drainage noted. Vital signs: Current: BP 112/74 (BP Location: Left arm, BP Position: Lying) Pulse 106 Temp 97.1 F (36.2 C) (Oral) Resp 16 Ht 1.651 m (5' 5) Wt 82.3 kg (181 lb 8 oz) SpO2 93% BMI 30.20 kg/m Smoking Status Never Last 24hrs Temp: [97.1 F (36.2 C)-99.6 F (37.6 C)] 97.1 F (36.2 C) Pulse (Heart Rate): [83-106] 106 Resp Rate: [16-18] 16 BP: (96-145)/(55-77) 112/74 O2 Sat (%): [93 %-100 %] 93 % Intake/Output Summary (Last 24 hours) at 03/19/2025 0709 Last data filed at 03/18/2025 1400 Gross per 24 hour Intake 1030.35 ml Output 225 ml Net 805.35 ml Labs: Lab Results Component Value Date CO2 25 03/19/2025 Lab Results Component Value Date WBC 8.08 03/19/2025 HGB 12.4 (L) 03/19/2025 HCT 37.7 (L) 03/19/2025 MCV 96.4 (H) 03/19/2025 PAN [facility] Spine Advanced Practice Provider Pager: [phone] NEUROSURGERY PROGRESS NOTE: 03/19/25 S: Some waxing/waning O: PE: NAD, wakes up easily, oriented to self and hospital w/ choices, able to eventually answer situational questions PERRL EOMI FS TM FCx4 5/5 BUE 5/5 LLE Rle: 3/5 HF, 4/5 distally SILT Chest tube removed w/ occlusive dressing in place Temp: [97.1 F (36.2 C)-99.6 F (37.6 C)] 97.2 F (36.2 C) Pulse (Heart Rate): [91-108] 94 Resp Rate: [16-24] 24 BP: (96-136)/(57-74) 96/57 O2 Sat (%): [93 %-95 %] 94 % O2 Sat (%): 94 % (03/19 1143) O2 Device: room air (03/19 1600) I/O last 3 completed shifts: In: - Out: 300 [Urine:300] ICP: No data recorded WBC/Hgb/Hct/Plts: 8.08/12.4/37.7/291 (03/19 517) Na/K+/Phos/Mg/Ca: 134/3.8/--/--/-- (03/19 517) Bun/Creat/Cl/CO2/Glucose: 11/0.71/98/25/175 (03/19 517-03/19 1138) Imaging: no new imaging overnight A/P: Gracie Lemons is a 75 y.o. male s/p right lateral T7/8 discectomy and chest tube placement, status post chest tube removal with post operative RLE weakness Neuro: neuro checks q8 - spaced out given delirium Cards: SBP<160 Resp: - hx of fibrotic lung disease, acute hypoxic respiratory failure - Pulm consulted, appreciate recommendations ID: [id number] for HAP FEN/GI: DIET CARB CONTROLLED PPX: SCDs, Pharm DVT ppx Dispo: pending clinical progression Please page [phone]) with questions. Principal Problem: Aftercare following surgery Active Problems: Electrolyte disorder (K, Cl, or Na) Present on Admission: Aftercare following surgery Quality Self-Check Complexity. Hyponatremia - Secondary to fluid shifts. Monitor. Hypocalcemia - Continue to monitor and replete. Obesity, class I Body mass index is 30.2 kg/m . - Follow with PCP for dietary and lifestyle modifications. Hypothyroidism - Continue thyroid replacement. Other Reduced Mobility - continue PT/OT. Wound Documentation Wound Surgical 03/11/25 1525 Lateral;Right;Upper Flank (Active) Date First Assessed/Time First Assessed: 03/11/25 152 Primary Wound Type: Surgical Present on Original Admission: No Incision Closure/Dressing: Dermabond;Primapore Wound Location Orientation: Lateral;Right;Upper Location: Flank Wound Other (Comment) 03/11/252129 Left;Posterior Ulnar (Active) Date First Assessed/Time First Assessed: 03/11/252129 Primary Wound Type: (c) Other (Comment) Present on Original Admission: No Wound Location Orientation: Left;Posterior Location: Ulnar Wound Pressure Injury Suspected 03/14/25 1235 Buttocks (Active) Date First Assessed/Time First Assessed: 03/14/25 123 Primary Wound Type: Pressure Injury Secondary Wound Type - Pressure Injury: Suspected Device Related: no Wound Description: red cracked and bleeding Location: Buttocks Any conditions listed below are present on admission unless otherwise specified. . NUTRITION SCREEN Nutrition Recommendations and Plan of Care: Continue with Carb Controlled Diet as tolerated. Will send chocolate Glucerna TID (220 kcal, 10 g protein each) to aid in meeting kcal and protein needs. Monitor/encourage PO intake. Monitor GI function, skin integrity, weight changes, and labs. Nutrition to continue to follow. Per A/P, Gracie Lemons is a 75 y.o. male s/p right retropleural approach to T7-8 discectomy on 03/11/2025 Past History Past Medical History[1] Past Surgical History[2] Nutrition History/Assessment: Pt meets nutrition screening criteria d/t LOS. On carb controlled diet. Not eating much d/t disliking food served here. Willing to trial Glucerna- has consumed ONS in the past. 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 % PO Intake per docflowsheets: Average of 39% is allergic to acetaminophen, dilaudid [hydromorphone], and penicillins. Current Diet Orders Procedures DIET CARB CONTROLLED Standing Status: Standing Number of Occurrences: 1 Ht: 5' 5 Current Wt: 82.3 kg (181#) Admit Wt: 82.3 kg (181 lb 8 oz) IBW: 61.8 kg (136#) %IBW: 133% BMI: 30.2 Weight History: Wt Readings from Last 20 Encounters: 03/11/25 82.3 kg (181 lb 8 oz) 03/02/25 82.6 kg (182 lb) 01/11/25 85.4 kg (188 lb 4.8 oz) 08/25/24 93.6 kg (206 lb 6.4 oz) 05/12/24 98.7 kg (217 lb 9.6 oz) GI: Last bm: 03/16; [place] Stool Scale Type 6 Enteral access: none Skin: Anirudh Score: 14 Edema- none documented Active Wounds: Wound Surgical 03/11/25 1525 Lateral;Right;Upper Flank (7) Wound Other (Comment) 03/11/25 2130 Left;Posterior Ulnar (7) Wound Pressure Injury Suspected 03/14/25 1235 Buttocks (4) Respiratory: Oxygen therapy: room air I/O: -3.8L net since admit Gabrielle Samano MS, RD, LD, [facility] Pager #[phone] [1] Past Medical History: Diagnosis Date Anemia BPH (benign prostatic hyperplasia) Brain abscess CAD (coronary artery disease) Colon polyp Diabetes mellitus GERD (gastroesophageal reflux disease) High cholesterol HTN (hypertension) Nephrolithiasis RAFAEL (obstructive sleep apnea) Primary adrenal deficiency Stroke Stroke-like episode x3 Syncope Thalamic infarction TIA (transient ischemic attack) [2] Past Surgical History: Procedure Laterality Date THORACOSTOMY TUBE Right 03/16/2025 Laterality: Right; Surgeon: Franci Benoit MD; Location: [facility] INTERVENTIONAL RADIOLOGY (VIR) FUSION EXTREME LATERAL INTERBODY LUMBAR N/A 03/11/2025 Laterality: N/A; Surgeon: Doretha Brandon MD; Location: [facility] MAIN OR CORPECTOMY VERTEBRAL W/ DECOMPRESSION TRANSTHORACIC APPROACH N/A 03/11/2025 Laterality: N/A; Surgeon: Doretha Brandon MD; Location: [facility] MAIN OR GRAFT SPINE SURGERY ONLY AUTOGRAFT POSTERIOR ADD-ON PX N/A 03/11/2025 Laterality: N/A; Surgeon: Doretha Brandon MD; Location: [facility] MAIN OR LOOP RECORDER IMPLANTATION 05/07/2013 Surgeon: Huy Romo MD; Location: [facility] LAMINECTOMY FACETECTOMY AND FORAMINOTOMY VERTEBRAL SEGMENT LUMBAR SINGLE 07/15/2012 Laterality: Midline; Surgeon: Trinidad Wiseman MD, PhD; Location: [facility] MAIN OR FUSION POSTERIOR LUMBAR 07/15/2012 Laterality: Midline; Surgeon: Trinidad Wiseman MD, PhD; Location: [facility] MAIN OR INSERTION SPINAL INSTRUMENTATION POSTERIOR NONSEGMENTAL ADD-ON PX 07/15/2012 Laterality: Midline; Surgeon: Trinidad Wiseman MD, PhD; Location: [facility] MAIN OR HERNIA REPAIR 2009 BRAIN SURGERY 2002 BACK SURGERY 1985 BRAIN MENINGIOMA EXCISION COMPLETE EXTRACTION OF TEETH WISDOM TEETH EXTRACTION Physical Therapy Attempt Note 03/18/2025 PT Therapy Completed: Attempted Attempted Reason: Other (see comments) (patient transporting to floor) Anmol Cox, PT Time In: 1340 Time Out: 1340 Total Visit Time: 0 minutes Total Treatment Time (skilled, billable minutes): 0 minutes Occupational Therapy Attempt Note 03/18/2025 OT Therapy Completed: Attempted Attempted Reason: (pt actively transferring off unit. Will re-attempt as available.) Kleley Conrad OT Images from the original note were not included. Pulmonary/Critical Care Medicine Consult Progress Note Length of Stay: 7 days Interval History: Reports stable to improved dyspnea Limited mobility, able to reach commode yesterday Objective Findings: Physical Exam: Temp: [97.5 F (36.4 C)-98.4 F (36.9 C)] 97.9 F (36.6 C) Pulse (Heart Rate): [53-103] 83 Resp Rate: [18-20] 18 BP: (113-145)/(64-78) 141/77 O2 Sat (%): [91 %-100 %] 100 % Physical Exam Vitals reviewed. Constitutional: General: He is awake. Cardiovascular: Rate and Rhythm: Normal rate. Pulmonary: Effort: No tachypnea or respiratory distress. Lab Data: WBC/Hgb/Hct/Plts: 7.78/12.9/39.1/256 (03/18 414) Na/K+/Phos/Mg/Ca: 135/3.8/--/--/-- (03/18 414) Bun/Creat/Cl/CO2/Glucose: 12/0.76/94/29/116 (03/18 414) 03/16/25 16:30 SPECIMEN SOURCE (SPECBF) PLEURAL FLUID PLEURAL FLUID GROSS APPEARANCE, FLUID Red Opaque SUPERNATANT APPEARANCE, FLUID Douglass Clear Total Nucleated Cells (TNC) 2,401 Red Blood Cells (Fluid) 55,590 CELLS COUNTED, FLUID 100 POLYS, FLUID 78 LYMPHS, FLUID 5 Monocytes/Macrophages, Fluid 17 EOSINOPHILS, FLUID 0 BASOPHILS, FLUID 0 COMMENT, FLUID There is no evidence of malignancy. Blood is present. Acute and chronic inflammatory cells present. No microorganisms seen. DIFFERENTIAL REVIEWED BY: Jamie Roe MD PH BODY FLUID 7.46 No results found for the last 90 days. Pleural culture pending Lab Results Component Value Date PROCALCITONI 0.45 03/15/2025 RHINENTPCR Not Detected 03/13/2025 ADENOVIRPCR Not Detected 03/13/2025 INFLUENZAAPC Not Detected 03/13/2025 INFLUENZABPC Not Detected 03/13/2025 ZSMRLGK4LV NOT DETECTED 03/13/2025 SPNEUMOAGUR NEGATIVE 07/17/2012 LEGIONURAG NEGATIVE 07/17/2012 MRSADN Negative 03/14/2025 Pleur: Lab Results Component Value Date PHBODYFLD 7.46 03/16/2025 PROTEINBODYF 3.1 03/16/2025 LDBODYFL 762 03/16/2025 BAL: No results found for: BALIMPRESSIO, AVEOLARMACR, NEUTROBAL, LYMPHBAL, EOSINBAL CXR (03/18/25): CXR (03/16/25): Impression & Recommendations: Gracie Lemons is a 75 y.o. male with CAD, hx of thalamic infarct, meningioma resection c/b hypothalamic damage with central adrenal insufficiency (off steroids for years), and unclear fibrotic disease (s/p BAL and TBBx 08/2024, no CT scans able to be identified, on Ofev) who presented on 03/11/2025 for planned treatment of thoracic disc herniation with 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 which he underwent on day of admission. Postoperative course complicated by acute hypoxemic respiratory failure and bilateral gvmjd-[id number]-left pleural effusions requiring chest tube placement. Effusions were exudative, possibly consistent with uncomplicated parapneumonic effusion. Chest tube now with limited output, 30 cc in the previous 24 hours, and chest x-ray demonstrating improved and nearly resolved right effusion with chest tube not communicating with remaining fluid. As such, decision made to remove chest tube (see separate note). Would recommend pulmonary hygiene measures to promote recovery. Impression: Right exudative pleural effusion, possibly uncomplicated parapneumonic s/p repeat chest tube placement (03/16/25), improved AHRF, resolved Fibrotic lung disease of unclear etiology Recommendations: Continue to hold Ofev. Chest tube removed today, please obtain follow-up CXR Keep dressing dry and in place for 48 hours Antibiotics per primary Pulmonary hygiene measures including PT/OT, IS, OOB as able Patient seen and discussed with Dr. Andrew Acosta. All recommendations are preliminary until cosigned by the attending. Edwin Rice MD Fellow, Pulmonary & Critical Care Medicine [facility] Cosigned by Petr Acosta MD at 03/18/2025 3:13 PM EDT Associated attestation - Petr Acosta MD - 03/18/2025 3:13 PM EDT I saw and independently examined this patient today 03/18/2025. I discussed my findings and the therapeutic plan with Fellow I agree with the history, physical examination, and medical decisions as outlined. Please refer to their note for more specific details. I/O last 3 completed shifts: In: 1087 [P.O.:690; I.V.:116.9; IV Piggyback:280.1] Out: 1355 [Urine:1325; Other:30] Imaging Review: I have personally reviewed available imaging within [facility]. Recommendations: - Mental status much improved and back to RA - CXR stable and improved. Place to water seal and plan for removal. - follow up fluid studies. Petr Acosta MD Lead Mechanic of Clinical Medicine Pulmonary, Critical Care and Sleep Medicine Pager [phone] Chest Tube Removal Note: Right-sided chest tube was removed at 1120 using sterile technique including sterile gloves, chlorhexidine at the site, sterile suture removal kit, sterile clamp, tube cut prior to removal. Xeroform dressing, sterile gauze, and occlusive Tegaderm were placed over the removal site. No immediate complications. Repeat CXR pending. Please keep dressing dry and can remove dressing after two days. Doing well on room air. Full strength in uppers. Left lower extremity full strength. Right lower extremity 2/5 hip flexion, although I suspect positional. 4/5 distally. Mr. Lemons continues to improve. He has a chest tube suction with over the last 24 hours. Will continue advancing his care. We will follow along with Pulmonology and reassess as indicated. His strength is improving. Will anticipate a week. He needs to work with PT OT. Will work on disposition. (DOC:[id number]) Acute Physical Therapy Treatment Prior Gross Functional Mobility: independent, used device Current AM-PAC score(s): CURRENT AM-PAC Mobility Raw Score: 7 Based on the above AM-PAC score(s) and PT clinical judgment, patient is a good candidate for discharge to Inpatient Rehab Facility Supporting Factors (would benefit from skilled therapy services): Impaired functional status, Patient status is anticipated to be appropriate to tolerate inpatient rehab therapy requirements at time of discharge from acute care, Decreased strength, Impaired balance, Decreased endurance necessitating skilled therapy services, but able to tolerate therapy requirements for inpatient rehab, Impaired self-care abilities, Fall risk Mobility equipment available at home: front-wheeled walker, straight cane ADL equipment available at home: grab bars Equipment needed for discharge: to be determined Current therapy frequency recommendation in acute: PT Therapy Frequency: 6 times a week Activity Recommendations for outside of rehab session: chair position Precautions and Weightbearing Status: Existing Precautions/Restrictions: fall, spinal Lines/Tubes/Drains (Rehab Status): Urinary catheter Patient Safety Communication Prior to Visit: Nursing Subjective: Patient supine in bed and agreeable to therapy. Pain: General Pain Documentation (Adult, OB, Peds) Presence of Pain: denies pain/discomfort Presence of Pain Score (Auto-calculated): 0 Objective/Observation: Vitals/Vitals Responses to Treatment: VSS O2 Device: room air Cognition Overall Cognitive Status: Impaired Arousal/Alertness: Delayed responses to stimuli Orientation Level: Oriented to person, Oriented to place (March 2018) Extremity Assessments: See PT Evaluation flowsheet for Extremity Measurement updates. Skin and Edema: Balance: Sitting Balance Static Sitting-Level of Assistance: Contact guard Dynamic Sitting-Level of Assistance: Minimum assistance Skilled Rationale: Verbal cues, Hand placement, Sequencing, Positioning, Full extension to upright positioning/posture, Facilitate anterior shift Sitting Balance Skilled Intervention/Details: Max cues for sequencing and uprihgt posture. patient with posterior lean on BSC requiring multi-modal cues for positioning. Standing Balance Static Standing-Level of Assistance: Maximum assistance Dynamic Standing-Level of Assistance: Dependent Standing-Balance Support: Gait belt, Arm in arm Skilled Rationale: Verbal cues, Hand placement, Sequencing, Technique of activity, Cues for increased safety, Initiation and execution of task Standing Balance Skilled Intervention/Details: Max cues for upright posture and bilateral TKE with poor initiation. Paitent with crouched posture throughout requiring max/dependent assist. Mobility Assessment/Intervention: Supine to Sit Mobility Nelson Level: Supine->Sit: maximum assist (25% patient effort) Bed Features/Set-up: Supine->Sit: Head of bed elevated, Use of bed rail Skilled Rationale: Verbal cues, Sequencing, Hand placement, Technique of activity, Initiation and execution of task Skilled Intervention/Details: Supine->Sit: increased time to complete with max multi-modal cues for log roll Sit to Supine Mobility Nelson Level: Sit->Supine: dependent (less than 25% patient effort) Bed Features/Set-up: Sit->Supine: Flat Skilled Rationale: Verbal cues, Sequencing, Initiation and execution of task, Technique of activity Skilled Intervention/Details: Sit->Supine: reverse log roll Transfer Assessment/Intervention: Sit to Stand Transfer Nelson Level: Sit->Stand: maximum assist (25% patient effort) Assistive Device: Sit->Stand: arm in arm Skilled Rationale: Verbal cues, Sequencing, Facilitate anterior shift, Technique of activity, Initiation and execution of task Skilled Intervention/Details: Sit->Stand: cues for sequencingw ith poor BLE engagement throughout. Bed-Chair Transfer Nelson Level: Bed<->Chair: dependent (less than 25% patient effort) Assistive Device: Bed<->Chair: arm in arm Skilled Rationale: Tactile cues, Verbal cues, Sequencing, Upright gaze/neck extension, Technique of activity, Initiation and execution of task Skilled Intervention/Details: Bed<->Chair: max cues for sequencing with no initiation for taking steps or pivoting x2 trials Gait/Functional Mobility Assessment/Intervention: Stairs Assessment/Intervention: CURRENT AM-PAC Basic Mobility Inpatient Short Form Turning over in bed: 2 - A Lot of Assistance Moving from lying on back to sittin - Total Assistance Moving to and from bed to chair: 1 - Total Assistance Sitting/standing from chair: 1 - Total Assistance Walk in hospital room: 1 - Total Assistance Climbing 3-5 steps with a railin - Total Assistance CURRENT [facility] Mobility Raw Score: [address] [facility] Mobility Functional Limitation: 92.36% Impaired in Basic Mobility Interventions: Assessment & Plan: Patient with no progress toward goals this date with increased level of assist for transfers and poor carry-over of all education. Patient would benefit from continued PT to improve functional mobility and independence to allow for improved quality of life. Patient Instruction/Education this session: Learners: Patient Education provided: Activity outside of therapy Plan for next session: Progress transfers Acute PT Goals Plan of Care by Anmol Cox PT at 03/17/2025 2:31 PM Version 1 of 1 Problem: PT - General Goals Goal: Supine <-> Sit Transfers - Patient will perform supine to/from sit transfers with independence and without use of hospital bed features in order to improve functional mobility and safety. Outcome: Not Progressing Goal: Sit <-> Stand Transfers - Patient will perform sit to/from stand transfers with contact guard assistance and wit AD in order to improve functional mobility and safety. Outcome: Not Progressing Goal: Stand/Squat Pivot Transfers - Patient will perform stand pivot transfer to/from bed/chair/commode with modified independence and front-wheeled walker in order to improve functional mobility and safety. Outcome: Not Progressing treatment consisted of the following to progress towards the above goal(s): PT Evaluation and Treatment Time Therapeutic Activity Time Entry: 26 Treating Therapist: Anmol Cox PT Additional Details: PT Co-Eval/Treatment Information Co-evaluation/co-treatment performed?: No simultaneous skilled care performed PPE used during patient interaction: gloves Patient location at end of session: bed with head of bed elevated Alarms on at end of session: RN aware Needs in reach. Time In: 1431 Time Out: 1457 Total Visit Time: 26 minutes Total Treatment Time (skilled, billable minutes): 26 minutes Upon discontinuation of Acute Care Physical Therapy Services or patient discharge from the hospital this note represents the current Physical Therapy Discharge Summary. Images from the original note were not included. Pulmonary/Critical Care Medicine Consult Progress Note Length of Stay: 6 days Interval History: - Chest tube was placed by IR yesterday. Notes indicate 100 cc out from the procedure and 70 cc into the chest tube over the last 24 hours. - His mental status has now returned to his baseline per patient and at bedside. - Does have some discomfort at chest tube insertion site making taking large breaths and coughing more difficult. - Now on RA. Objective Findings: Physical Exam: Temp: [97.5 F (36.4 C)-97.7 F (36.5 C)] 97.5 F (36.4 C) Pulse (Heart Rate): [78-101] 78 Resp Rate: [20-28] 22 BP: (91-160)/(51-74) 122/64 O2 Sat (%): [91 %-99 %] 94 % GEN: ill-appearing, NAD, overweight. HEENT: normal conjunctivae. RESP: CTAB w/ good air movement, no w/r/r, breathing comfortably on RA. CV: RRR, normal S1 and S2, no r/g/m, no LE edema, no JVD. MSK: no deformity. R chest tube in place. SKIN: warm, dry. NEURO: alert, responds appropriately to questions, no gross motor deficit. Lab Data: WBC/Hgb/Hct/Plts: 7.59/11.7/35.8/220 (03/17 218) Na/K+/Phos/Mg/Ca: 137/3.2/--/--/-- (03/17 218) Bun/Creat/Cl/CO2/Glucose: 15/0.86/93/32/123 (03/17 218) Pleural Fluid Studies (03/16/25): Cell Count: Culture: pending pH: 7.46 - Exudative by Light's criteria CXR (03/17/25): CXR (03/16/25): Impression & Recommendations: Gracie Lemons is a 75 y.o. male with HTN, HLD, CAD, Hx of thalamic infarct, T2DM, hypothyroidism, meningioma resection c/b hypothalamic damage with central adrenal insufficiency (off steroids for multiple years), and unclear fibrotic disease (s/p BAL and TBBx 08/2024, no CT scans able to be identified, on Ofev) who presented on 03/11/2025 for planned treatment of thoracic disc herniation with 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 which he underwent on day of admission. Now a little delirious. Previously had thoracotomy tube placed on right with attempt to drain pleural effusion but was not thoracic cavity so was removed. Still with 5L O2 requirement and coughing produces pain on right side of chest. Noted to have tracheobronchomalacia on CT chest as well. Impression: Right Exudative Pleural Effusion s/p repeat CT placement (04/15/25), improved Acute Hypoxic Respiratory Failure, resolved CXR shows improvement in pleural effusion despite only 170 cc out since most recent CT was placed Exudative by Light's Criteria Still has chest pain at CT insertion site leading to decreased inspiration. Recommendations: Continue to hold Ofev. Continue chest tube to -20 mmHg suction. Patient seen and discussed with Dr. Andrew Acosta. All recommendations are preliminary until cosigned by the attending. Holger Vásquez DO Fellow, Pulmonary & Critical Care Medicine [facility] Cosigned by Petr Acosta MD at 03/17/2025 5:57 PM EDT Associated attestation - Petr Acosta MD - 03/17/2025 5:57 PM EDT I saw and independently examined this patient today 03/17/2025. I discussed my findings and the therapeutic plan with Fellow I agree with the history, physical examination, and medical decisions as outlined. Please refer to their note for more specific details. I/O last 3 completed shifts: In: 1083.1 [P.O.:600; I.V.:181.2; IV Piggyback:301.9] Out: 1170 [Urine:1100; Other:70] Imaging Review: I have personally reviewed available imaging within [facility]. Recommendations: - Mental status much improved and back to RA - Loculated effusion much improved in CXR imaging but only document 170cc out, suspect missed output. - will monitor output and remove in the coming days. - follow up fluid studies. Petr Acosta MD Lead Mechanic of Clinical Medicine Pulmonary, Critical Care and Sleep Medicine Pager [phone] Acute Physical Therapy Treatment Prior Gross Functional Mobility: independent, used device Current AM-PAC score(s): CURRENT AM-PAC Mobility Raw Score: 8 Based on the above AM-PAC score(s) and PT clinical judgment, patient is a good candidate for discharge to Inpatient Rehab Facility Supporting Factors (would benefit from skilled therapy services): Impaired functional status, Patient status is anticipated to be appropriate to tolerate inpatient rehab therapy requirements at time of discharge from acute care, Decreased strength, Impaired balance, Decreased endurance necessitating skilled therapy services, but able to tolerate therapy requirements for inpatient rehab, Impaired self-care abilities, Fall risk Mobility equipment available at home: front-wheeled walker, straight cane ADL equipment available at home: grab bars Equipment needed for discharge: to be determined Current therapy frequency recommendation in acute: PT Therapy Frequency: 6 times a week Activity Recommendations for outside of rehab session: chair position Precautions and Weightbearing Status: Existing Precautions/Restrictions: fall, spinal Lines/Tubes/Drains (Rehab Status): Urinary catheter Patient Safety Communication Prior to Visit: Nursing Subjective: Patient supine in bed and agreeable to therapy. Pain: General Pain Documentation (Adult, OB, Peds) Presence of Pain: denies pain/discomfort Presence of Pain Score (Auto-calculated): 0 Objective/Observation: Vitals/Vitals Responses to Treatment: VSS O2 Device: nasal cannula Flow (L/min): 1 Cognition Overall Cognitive Status: Impaired Arousal/Alertness: Delayed responses to stimuli Orientation Level: Oriented to person, Oriented to place (month and day of week, not year) Extremity Assessments: See PT Evaluation flowsheet for Extremity Measurement updates. Skin and Edema: Balance: Sitting Balance Static Sitting-Level of Assistance: (CGA-min) Dynamic Sitting-Level of Assistance: (CGA-min) Skilled Rationale: Verbal cues, Positioning, Full extension to upright positioning/posture, Finding/maintaining midline positioning, Upright gaze/neck extension Sitting Balance Skilled Intervention/Details: Cues for midline orientation and upright posutre. Patient educated for anterior weight shift d/t posterior lean throughout. Mobility Assessment/Intervention: Supine to Sit Mobility Nelson Level: Supine->Sit: maximum assist (25% patient effort) Bed Features/Set-up: Supine->Sit: Head of bed elevated, Use of bed rail Skilled Rationale: Verbal cues, Tactile cues, Sequencing, Technique of activity Skilled Intervention/Details: Supine->Sit: log roll promoted Sit to Supine Mobility Nelson Level: Sit->Supine: maximum assist (25% patient effort) Bed Features/Set-up: Sit->Supine: Flat Skilled Rationale: Verbal cues, Sequencing, Initiation and execution of task, Maintain precautions Skilled Intervention/Details: Sit->Supine: reverse log roll Transfer Assessment/Intervention: Gait/Functional Mobility Assessment/Intervention: Stairs Assessment/Intervention: CURRENT [facility] Basic Mobility Inpatient Short Form Turning over in bed: 2 - A Lot of Assistance Moving from lying on back to sittin - A Lot of Assistance Moving to and from bed to chair: 1 - Total Assistance Sitting/standing from chair: 1 - Total Assistance Walk in hospital room: 1 - Total Assistance Climbing 3-5 steps with a railin - Total Assistance CURRENT [facility] Mobility Raw Score: [address] [facility] Mobility Functional Limitation: 86.62% Impaired in Basic Mobility Interventions: Intervention 1 Intervention Name: Seated BLE ther ex Sets/Reps/Duration: x8 Details: cues for full ROM BLE knees, ankles, and hips Assessment & Plan: Patient with limited progress toward goals with bed mobility and seated balance but improved cognition and alertness. Patient continues to be limited by impaired balance, transfers, and safety judgment Patient would benefit from continued PT to improve functional mobility and independence to allow for improved quality of life. Patient Instruction/Education this session: Learners: Patient, Spouse Education provided: Plan of care Plan for next session: Progress transfers Acute PT Goals Plan of Care by Anmol Cox PT at 03/16/2025 11:04 AM Version 1 of 1 Problem: PT - General Goals Goal: Supine <-> Sit Transfers - Patient will perform supine to/from sit transfers with independence and without use of hospital bed features in order to improve functional mobility and safety. Outcome: Not Progressing treatment consisted of the following to progress towards the above goal(s): PT Evaluation and Treatment Time Therapeutic Exercise Time Entry: 9 Therapeutic Activity Time Entry: 19 Treating Therapist: Anmol Cox PT Additional Details: PT Co-Eval/Treatment Information Co-evaluation/co-treatment performed?: No simultaneous skilled care performed PPE used during patient interaction: gloves Patient location at end of session: bed with head of bed elevated Alarms on at end of session: RN aware Needs in reach. Time In: 1104 Time Out: 1132 Total Visit Time: 28 minutes Total Treatment Time (skilled, billable minutes): 28 minutes Upon discontinuation of Acute Care Physical Therapy Services or patient discharge from the hospital this note represents the current Physical Therapy Discharge Summary. I have seen and examined the patient. I have reviewed the chart for relevant labs, images and medications. I have reviewed the resident/DATA ENTRY SUPERVISOR note and agree with the assessment/plan with the following additions. Background:75M T2DM HL HTN interstitial fibrotic lung disease presented for transthoracic R retropleural lateral discectomy; postop course c/b RLE weakness. 24h events:IR drainage of pleural effusion is planned Exam:delirious but follows commands; reassuring; said 1994 but quickly corrected to 2024; 3/5 on RLE with HF, KF, DF and PF which continues to endorse as improved Pt is a 75M who is critically ill 2/2 acute postoperative respiratory insufficiency in setting of IPF. 03/16 Plan includes:as his orientation fluctuates so can his exam, IR drain tentatively planned for 1:20pm; dc lei once this is done; ongoing diuresis today; chem dvt prophy still on hold; resend INR; change neuros to q8h; dc PRN oxycodone; of note had just started aricept few days b4 admission 2/2 memory issues so we may simply be noting interplay of early delirium with age and ICU delirium in a postop pt; pulm toilet, OOB which will also help ileus; of note with IPF has baseline SOB so we should temper expectations accordingly with respect to OOB activities. 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 Should also help his colonic ileus. Daily KUBs to assess colonic ileus and he's on movantik for his ileus which is presumed 2/2 opioids + postop state; check with NSGY regarding timing for resumption of chem dvt prophy; diurese with 40 of lasix IV X 1 at 12pm and assess response. IR consult placed to drain R pleural effusion. Total critical care time spent is 40 minutes. Reason for Consult: Discharge planning Level(s) of Care Discussed: IPR Patient and/or Mattress Specialist's Preferred Geographic Area for Discharge: [place], [place] Patient and/or Mattress Specialist's Discussion: Discussed referral process with the patient and/or hr representative. Patient and/or hr representative is agreeable to have placement referral initiated. SW met with patient and patient's family at bedside to discuss discharge planning. Patient is agreeable to going to a IPR. Family requested patient to discharge to IPR in [place], [place]. SW will send referrals to IPR via [facility] and will continue to follow. ALLYSSA Mitchell, RONY Float Motorcycle Sales Associate Available through [employer] and secure chat. NEUROCRITICAL CARE DAILY NOTE HOSPITAL VISIT DEMOGRAPHICS Patient: Gracie Lemons Code status: Full Code Admission date: 03/11/2025 10:21 AM Hospital days: LOS: 5 days HISTORY OF PRESENT ILLNESS Gracie Lemons is a 75 y.o. male with a past history of DMT2, HTN, HLD, CAD on plavix (Last dose 9/18), and prior L3-S1 posterior decompression and fusion with Dr Wiseman on 07/15/12, who presents as a direct admit for surgical management of a T7-8 central disc herniation. Given the progression of instability and radiographic findings he underwent a Right 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 on 03/11 which was complicated by a pneumothorax. Unfortunately, he had worsening RLE weakness on 03/14 and was transferred to the NCCU for close monitoring and additional workup. INTERVAL HISTORY SINCE ADMISSION 03/11/2025: post 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 03/13: New weakness in BLE 03/14: Transferred to NCCU 03/15: Repeat KUB. NC ? 4H. 03/16: Discuss timing of abx with pulm. Transfer out of the ICU. PHYSICAL EXAM GENERAL: Alert, no acute distress HEENT: normocephalic, no scalp wounds nor lesions CARDIO: +S1S2,+1 pitting edema b/l PULM: Diminished breath sounds b/l Abd: Tender to palpation EXTREMITIES: no wounds or lesions NEURO: Mental status: AAOx1 to person only. Speech/language: fluent; adequate repetition Cranial nerves: CN II: Visual price intact to confrontation. PERRL. 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 No nystagmus. CN V: intact to light touch CN VII: subtle left facial droop, suspect related to dentures CN VIII: Hearing is grossly intact. CN IX and X: Soft palate elevates symmetrically in the midline CN XI: Shoulder shrug and sternocleidomastoid strength 5/5 bilaterally CN XII: Tongue is midline with normal movement; no fasciculations Motor: Normal bulk and tone. Neck Ext Neck Flex Delt Bicep Tricep WE WF Agricultural Service Technician HE HF KE KF DF PF EHL R 5 5 5 5 2 2 2 2 2 L 5 5 5 5 4 4 4 5 5 Sensation: Patchy, inconsistent sensory loss in b/l lower extremities. Coordination: without ataxia/dysmetria on FTS ASSESSMENT AND PLAN Neuro: (03/11/2025) 5 Days Post-Op s/p T7-8 R lateral retropleural discectomy Px L3-S1 posterior decompression and fusion - Post-op Spine Management - Monitor lami checks Q1H and neuro checks Q1H - Encourage spinal perfusion and prevent postop hemorrhage with goal SBP <180, MAP >65 - Postop imaging: - 03/13 MRI T Spine: Interval right lateral T7-T8 discectomy. Previously visible dorsal disc osteophyte is no longer seen with decompression of the spinal canal. No thoracic spinal cord signal abnormality. - 03/14: MRI C-spine: no obvious signal changes. - 03/14: MRI L- spine: no obvious signal changes. Pain/Sedation management: - Oxycodone 5-10mg Q4H PRN (discontinued) - Fentanyl 25-50 mg Q2H PRN (discontinued) - Flexeril 10 mg TID - Nortriptyline 25 mg daily (home regimen for burning sensation) Psych: Depression Pulm: Acute Pulmonary Insufficiency Following Non-Thoracic Surgery Fibrotic lung disease O2 Sat (%): 94 % (03/16 1119) O2 Device: nasal cannula (03/16 08) Flow (L/min): 1 (03/16 0800) - Goal SpO2 >92%; wean FiO2 as tolerated - QAI0UHE, encourage pulmonary toileting - 03/13 CT Chest: - 03/14 CXR: Small right hydropneumothorax. Complete atelectasis of the right lower lobe and significant partial atelectasis of the right upper and middle lobes do both to compressive atelectasis from the effusion as well as obstructive mucous plugging and postobstructive atelectasis. A right thoracostomy tube is outside the thoracic cavity terminating in the sixth rib osteotomy with a clearly layer of subpleural fat between the tube tip in the pleural effusion. - Chest tube present on arrival, appears to have been placed the day of surgery though indication is unknown. Was removed at bedside 03/14 due to placement. 03/15: Slightly improved R pleural effusion - 03/16: Pending R chest tube placement by IR Fibrotic lung disease: - Holding home Nintedanib per pulm given concern for delayed wound healing and bleeding Cards: Essential HTN HLD CAD s/p KEYANA LCX/OM 2012 Temp: [97.5 F (36.4 C)-98.2 F (36.8 C)] 98.2 F (36.8 C) Pulse (Heart Rate): [75-105] 84 Resp Rate: [20-35] 34 BP: (107-149)/(53-81) 125/65 O2 Sat (%): [92 %-98 %] 94 % - Goal SBP <180, MAP >65 - Home antihypertensives: Lisinopril 20 mg daily, Metoprolol 50 mg BID - Current regimen: - PRN labetalol and hydralazine - 03/14 ECG: sinus tach - Statin Therapy: Indicated if LDL >70; continue home Rosuvastatin 10 mg and Zetia 10 mg daily No results for input(s): CHOLESTEROL, TRIG, HDL, LDLCALC, LDLDIRECT in the last 72 hours. CAD: PTCA with KEYANA of proximal 3rd marginal artery 04/30/13 Home meds: metoprolol, clopidogrel, Crestor and Zetia. - Per , pt has been on SAPT (Plavix) for the past two years, and switched to aspirin due to procedures earlier this year Essential HTN: - Home meds: Lopressor 50 BID HLD: - Continue Crestor and Ezetia Echocardiogram from 05/29/2024: Interpretation Summary The estimated ejection fraction is 60 %. No evidence for diastolic dysfunction. Stress test from 06/02/2024: Impression: 1. There is no evidence of significant ischemia or infarction. 2. Estimated ejection fraction is 67%. Renal/: BPH Fluid Balance: - Goal: euvolemia - Continue lei (indication: I/O monitoring) Intake/Output Summary (Last 24 hours) at 03/16/2025 1327 Last data filed at 03/16/2025 1141 Gross per 24 hour Intake 2223.92 ml Output 2630 ml Net -406.08 ml - Daily Chem 10; electrolytes replaced per NCCU protocol Recent Labs 03/15/25 0009 03/15/25 1601 03/16/25 0031 SODIUM 139 -- 138 POTASSIUM 3.5 3.6 3.8 CHLORIDE 99 -- 99 CO2 28 -- 27 BUN 15 -- 16 CREATSERUM 0.95 -- 0.96 PHOSPHORUS 2.3 2.6 3.7 MAGNESIUM 1.7 -- 2.0 ICA 3.97* 3.71* 3.64* GI/Nutrition: GERD Recent Labs 03/15/25 0009 03/16/25 0031 ALBUMIN -- 2.7* BILIDIRECT -- <0.1 BILITOTAL -- 0.5 ALKPHOS -- 68 ALT -- 10 AST -- 45* TP -- 5.3* AMMONIA 41 -- - DIET NPO with meds - Bowel regimen: - Last Bowel Movement: 03/16/25 - Senna, miralax Stress ulcer prophylaxis: - Continue home pantoprazole Endo: DM Type II Hypothyroid - Goal blood glucose 140-180 - Insulin SSI: Monitor for need - Home medications: Munjaro, metformin, glimepiride and farxiga Recent Labs 03/15/25 1755 03/15/25 2109 03/16/25 0031 03/16/25 0133 GLUCOSE 163 160 178 176 -Continue levothyroxine 50 mcg daily ID: Acute Leukocytosis 2/2 reactionary vs PNA Recent Labs 03/15/25 0009 03/16/25 0031 WBC 11.89* 8.77 PROCALCITONI 0.45 -- - Temp (24hrs), Av.9 F (36.6 C), Min:97.5 F (36.4 C), Max:98.2 F (36.8 C) - PRN Tylenol for T>100.4F - Most recent and positive cultures: Date Collected Source Result Date Finalized 03/05 Staph nasal swab MRSA negative 03/14 Staph nasal swab pending - Antiinfectives: Start Date Antiinfective Coverage Course Length Stop Date 03/14 Vancomycin 03/14 Ceftriaxone Heme/Onc: No Current Issues Recent Labs 03/15/25 0009 03/16/25 0031 03/16/25 0251 03/16/25 1111 WBC 11.89* 8.77 -- -- RBC 3.68* 3.62* -- -- HGB 11.9* 11.7* -- -- HCT 37.2* 35.7* -- -- PLATELET 228 200 -- -- PT -- -- 18.6* 16.0* PTT -- -- 45.0* 32.6 INR -- -- 1.6* 1.3* - Goal plt >100, INR <1.4, Hgb >7 - OR EBL: minimal DVT prophylaxis: - SCDs - Can start Lovenox post chest tube placement Musc: No Current Issues - PT/OT consulted and following - Current Activity Order: AAT Fall Risk: - Assessed for patient fall risk and discussed safety measures during rounding. Social/Dispo: - Code status: Full Code - /: Medications reconciled - Discharge planning per PCRM/SW. Patient Lines/Drains/Airways Status Active Lines, Drains, Airways, & Wound Overview Name Placement date Placement time Site Days Peripheral IV Line - Single Lumen 03/11/25 1115 forearm, anterior, left 20 gauge;1 3/4 in length 03/11/25 1115 -- 5 Peripheral IV Line - Single Lumen 03/11/25 1419 green median vein (underside of arm), left 18 gauge 03/11/25 1419 -- 4 Peripheral IV Line - Single Lumen 03/14/252029 pink forearm, anterior, right 20 gauge 03/14/252029 -- 1 Indwelling Urethral Catheter 03/14/25 0255 03/14/25 025 -- 2 Wound Surgical 03/11/25 1525 Lateral;Right;Upper Flank 03/11/25 1525 Flank 4 Wound Other (Comment) 03/11/252129 Left;Posterior Ulnar 03/11/252129 Ulnar 4 Wound Pressure Injury Suspected 03/14/25 123 Buttocks 03/14/25 123 Buttocks 2 Quality Self-Check Complexity. Hypocalcemia - Continue to monitor and replete. Obesity, class I Body mass index is 30.2 kg/m . - Follow with PCP for dietary and lifestyle modifications. Hypothyroidism - Continue thyroid replacement. Other Reduced Mobility - continue PT/OT. Wound Documentation Wound Surgical 03/11/25 1525 Lateral;Right;Upper Flank (Active) Date First Assessed/Time First Assessed: 03/11/251524 Primary Wound Type: Surgical Present on Original Admission: No Incision Closure/Dressing: Dermabond;Primapore Wound Location Orientation: Lateral;Right;Upper Location: Flank Wound Other (Comment) 03/11/252129 Left;Posterior Ulnar (Active) Date First Assessed/Time First Assessed: 03/11/252129 Primary Wound Type: (c) Other (Comment) Present on Original Admission: No Wound Location Orientation: Left;Posterior Location: Ulnar Wound Pressure Injury Suspected 03/14/251234 Buttocks (Active) Date First Assessed/Time First Assessed: 03/14/25 123 Primary Wound Type: Pressure Injury Secondary Wound Type - Pressure Injury: Suspected Device Related: no Wound Description: red cracked and bleeding Location: Buttocks Any conditions listed below are present on admission unless otherwise specified. . ICU Checklist: [x] Assess pain Presence of Pain: denies pain/discomfort Presence of Pain Score (Auto-calculated): 0 [x] Both SAT & SBT B = SAT/SBT Eligibility, Safety Screen & Outcomes (Document Daily in ICU) Is/Was patient receiving continuous sedative/opioid IV medications today?: No - Only receiving meds for analgesia (Not for sedation) [x] Choice of analgesia/ sedation See neuro [x] Delirium Overall CAM-ICU: Positive [x] Early mobility PT/OT consulted?: Yes CURRENT AM-PAC Mobility Raw Score: 7 CURRENT AM-PAC Mobility Functional Limitation: 92.36% Impaired in Basic Mobility [x] Family Engagement Primary Emergency Contact: Idlaia Lemons Last updated: [x] Get lines out Arterial line: inserted , (indication:) Lei: inserted 03/14, (indication:I/O management) Rectal tube: inserted , (indication:) Enteral access: inserted /, [ ] gastric; [ ] post-pyloric Central lines: Discussed with NCCU Attending, Dr. Ten Barcenas MD 03/16/25 1:27 PM Check the treatment team to find the assigned neurocritical care provider (resident, fellow, DATA ENTRY SUPERVISOR, or PA) or page/call the corresponding number below NCC1 (Beds [phone]): , pager #[phone] NCC2 (Beds [phone], [address] Meng, and overflow): , pager #[phone] Cosigned by Soumya Hamilton MD, PhD at 03/16/2025 3:28 PM EDT NEUROSURGERY PROGRESS NOTE: 03/16/25 S: NAEON, appears fatigued O: PE: Wakes to stim PERRL EOMI FS Follows commands x4 5/5 bilateral uppers RLE 2 proximally, 4 distally LLE 4 throughout Dressing cdi Temp: [97.5 F (36.4 C)-98.2 F (36.8 C)] 98.2 F (36.8 C) Pulse (Heart Rate): [75-105] 84 Resp Rate: [20-35] 34 BP: (107-149)/(53-81) 125/65 O2 Sat (%): [92 %-98 %] 94 % O2 Sat (%): 94 % (03/16 1119) O2 Device: nasal cannula (03/16 800) Flow (L/min): 1 (03/16 08) I/O last 3 completed shifts: In: 2408.6 [P.O.:100; I.V.:477; IV Piggyback:1831.6] Out: 3030 [Urine:3030] ICP: No data recorded WBC/Hgb/Hct/Plts: 8.77/11.7/35.7/200 (03/16 31) Na/K+/Phos/Mg/Ca: 138/3.8/3.7/2.0/-- (03/16 31) Bun/Creat/Cl/CO2/Glucose: 16/0.96/99/27/176 (03/16 0031-03/16 0133) Ptt/Pt/Inr: 32.6/16.0/1.3 (03/16 1111) Imaging: MRIs of the neuroaxis with no compressive lesion to explain RLE weakness A/P: Gracie Lemons is a 75 y.o. male 5 Days Post-Op s/p right retropleural approach to T7-8 discectomy on 03/11/2025 - neuro checks - AAAT ADAT - VTE ppx: SCDs, Lovenox - transfer out of ICU - consult neurology for workup of weakness with no structural imaging abnormality - respiratory and pulmonary care, pending IR chest tube for pleural effusion Barriers to discharge: [x] Drains: neurosurgery drain removed [x] PO pain control [x] BM, bowel regimen (Last Bowel Movement: 03/16/25) [x] Postop imaging: MRI with good decompression of spinal cord [] PT/OT rec: pending transfer out of ICU [] Placement: precert/insurance Please page [phone] ([phone]) with questions. Principal Problem: Aftercare following surgery Present on Admission: Aftercare following surgery Quality Self-Check Complexity. Hypocalcemia - Continue to monitor and replete. Obesity, class I Body mass index is 30.2 kg/m . - Follow with PCP for dietary and lifestyle modifications. Hypothyroidism - Continue thyroid replacement. Other Reduced Mobility - continue PT/OT. Wound Documentation Wound Surgical 03/11/251524 Lateral;Right;Upper Flank (Active) Date First Assessed/Time First Assessed: 03/11/25 152 Primary Wound Type: Surgical Present on Original Admission: No Incision Closure/Dressing: Dermabond;Primapore Wound Location Orientation: Lateral;Right;Upper Location: Flank Wound Other (Comment) 03/11/252129 Left;Posterior Ulnar (Active) Date First Assessed/Time First Assessed: 03/11/252129 Primary Wound Type: (c) Other (Comment) Present on Original Admission: No Wound Location Orientation: Left;Posterior Location: Ulnar Wound Pressure Injury Suspected 03/14/25 123 Buttocks (Active) Date First Assessed/Time First Assessed: 03/14/25 123 Primary Wound Type: Pressure Injury Secondary Wound Type - Pressure Injury: Suspected Device Related: no Wound Description: red cracked and bleeding Location: Buttocks Any conditions listed below are present on admission unless otherwise specified. . Pulmonary/Critical Care Medicine Daily Progress Note Impression and Recommendations: 75 y.o. 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 Now a little delirious. Previously had thoracotomy tube placed on right with attempt to drain pleural effusion but was not thoracic cavity so was removed. Still with 5L O2 requirement and coughing produces pain on right side of chest. Noted to have tracheobronchomalacia on CT chest as well. - recommend IR consult to place lateral chest tube, small bore to drain pleural space. Would send pleural fluid for cytology given parenchymal nodules appear concerning. - OK to hold Ofev - ongoing pulmonary hygiene - if mental status allows, would offer NPPV if chest tube is able to be placed by IR. Would defer NPPV if unable to place chest tube given risk of PPV to pneumothorax. - also need AXR/ileus addressed as this can be inhibiting diaphragmatic excursion. Petr Acosta MD Lead Mechanic of Clinical Medicine Pulmonary, Critical Care and Sleep Medicine Subjective: Gracie Lemons is a 75 y.o. year old male admitted on 03/11/2025 for No acute events. Overnight events were reviewed and pertinent for ongoing mild delirium. Will answer questions but slightly tangentially. Objective: Physical Exam Temp: [97.8 F (36.6 C)-98.2 F (36.8 C)] 98 F (36.7 C) Pulse (Heart Rate): [85-111] 97 Resp Rate: [24-44] 34 BP: (90-135)/(55-97) 113/58 O2 Sat (%): [91 %-100 %] 94 % Intake/Output Summary (Last 24 hours) at 03/15/2025 1509 Last data filed at 03/15/2025 1400 Gross per 24 hour Intake 1395.92 ml Output 1950 ml Net -554.08 ml GEN: well-appearing, NAD, obese.AXO2 HEENT: normal conjunctivae, clear oropharynx, moist MM RESP: CTAB , no w/r/r, dullness in the right base with scattered fine crackles bilaterally, breathing comfortably on 2L NC. CV: RRR, normal S1 and S2, no r/g/m, 1+ LE edema GI: soft, NT, ND. MSK: no deformity. SKIN: warm, dry, no cyanosis. NEURO: alert, responds appropriately to questions, weak right arm Scheduled Meds: Ascorbic Acid 250 mg Oral Daily aspirin 81 mg Oral Daily ceFEPIme 2 g Intravenous Q8HNS Cyclobenzaprine 10 mg Oral TID donepezil 5 mg Oral QHS [Held by provider] enoxaparin 40 mg Subcutaneous Q24H Ergocalciferol 50,000 Units Oral Q7 days Ezetimibe 10 mg Oral QHS ferrous sulfate 324 mg Oral Daily Gabapentin 300 mg Oral QHS guaiFENesin 600 mg Oral Q12H Insulin lispro Subcutaneous 4x daily w/meals, HS Levothyroxine 50 mcg Oral Before BKF [Held by provider] Lisinopril 20 mg Oral Daily Metoprolol 50 mg Oral BID Multi-Vitamins 1 tablet Oral Daily naloxegol 25 mg Oral Daily [Held by provider] Nintedanib Esylate 150 mg Oral Q12H Nortriptyline 25 mg Oral QHS Pantoprazole 40 mg Oral Daily Polyethylene glycol 17 g Oral Q12H Rosuvastatin 10 mg Oral Daily Senna 8.6 mg Oral Q12H vancomycin 15 mg/kg (Adjusted) Intravenous Q12HNS vitamin E 400 Units Oral Daily Continuous Infusions: PRN Medications: alum/mag hydrox.-simethicone, Calcium Gluconate OR calcium gluconate, Insulin lispro AND Insulin lispro AND BLOOD GLUCOSE (POC DEVICE) AND BLOOD GLUCOSE (POC DEVICE) AND COMMUNICATION ORDER FOR NURSING CARE: For Blood Glucose LESS THAN 80 mg/dl AND Dextrose AND glucose AND NOTIFY PHYSICIAN, Blood Glucose LESS THAN 80 mg/dl AND Carbohydrate counts with meals, magnesium sulfate, Melatonin, oxyCODONE OR oxyCODONE, potassium chloride OR Potassium chloride OR Potassium Bicarb-Citric Acid OR potassium chloride, Prochlorperazine, Sodium chloride 0.9%, sodium phosphate OR sodium phosphate Laboratory Data: Lab Results Component Value Date SODIUM 139 03/15/2025 SODIUM 137 05/07/2013 SODIUM 135 07/15/2012 POTASSIUM 3.5 03/15/2025 POTASSIUM 3.7 05/07/2013 POTASSIUM 3.8 07/15/2012 POTASSIUM 4.60 04/12/2003 CHLORIDE 99 03/15/2025 CHLORIDE 103 05/07/2013 CHLORIDE 112 (H) 07/15/2012 CO2 28 03/15/2025 CO2 26 05/07/2013 CO2 14.4 02/24/2005 BUN 15 03/15/2025 BUN 14 05/07/2013 CALCIUM 7.9 (L) 03/15/2025 CALCIUM 8.2 (L) 07/20/2012 PHOSPHORUS 2.3 03/15/2025 PHOSPHORUS 2.8 07/20/2012 MAGNESIUM 1.7 03/15/2025 MAGNESIUM 1.9 05/07/2013 CREATSERUM 0.95 03/15/2025 CREATSERUM 1.30 05/07/2013 Lab Results Component Value Date WBC 11.89 (H) 03/15/2025 WBC 11.4 (H) 05/07/2013 HGB 11.9 (L) 03/15/2025 HGB 15.9 05/07/2013 HCT 37.2 (L) 03/15/2025 HCT 47.8 05/07/2013 HCT 34.0 (L) 04/12/2003 PLATELET 228 03/15/2025 PLATELET 282 05/07/2013 Lab Results Component Value Date PT 13.8 03/12/2025 PT 13.0 05/07/2013 INR 1.1 03/12/2025 INR 1.0 05/07/2013 PTT 28.6 03/12/2025 PTT 27 05/07/2013 ABG: Relevant microbiologic cultures: None. Imaging: I have personally reviewed the new radiographic data in [facility] Department of Pharmacy Admission Medication Reconciliation Note Patient: Gracie Lemons Room/Bed: 1033/A I have reviewed the patient's home medication list with the following sources Patient recall with prompting. I have also reviewed this list with the pharmacist. I am recommending the following changes to the home medication list. These recommendations are considered preliminary until attestation of this note by a pharmacist. Added to Home Medications: gliMEPIride 4 MG tablet: Take 1 tablet by mouth daily every morning. Metoprolol 100 MG tab regular release: Take 1 tablet by mouth 2 times daily. nitroGLYCERIN 0.4 MG tablet SL: Place 1 tablet under tongue every 5 minutes as needed for Chest pain. max = 3 doses. If CP persists after 1st dose, call 911 oxyBUTYnin CR 10 MG Tab SR 24 HR tablet: Take 1 tablet by mouth 2 times daily. Deleted from Home Medications: gliMEPIride 1 MG tablet metoprolol 25 MG PO tab regular release oxybutynin 5 MG PO TABS Synjardy XR 12.5-1000 MG Tab SR 24 HR Edits to Home Medications: Aspirin 81 MG Tab: Patient taking one tablet by mouth daily. Other Comments: The patient's allergies have been reviewed with Patient. Patient's spouse present to answer medication questions. Idalia Lemons ([phone]). Please feel free to contact me with any further questions. Name: Zia Armstrong Student Preceptor: Clarisa Valencia RPh Date/Time: 03/15/2025 2:58 PM Time Spent: 90 minutes Cosigned by Clarisa Valencia RP at 03/15/2025 3:09 PM EDT Associated attestation - Clarisa Valencia RPH - 03/15/2025 3:09 PM EDT Department of Pharmacy Admission Medication Reconciliation Note Patient: Gracie Lemons Room/Bed: 1033/A Updated QUALITY ASSURANCE AUDITOR Med List: Prior to Admission Medications Prescriptions Aspirin [address] tablet Sig: Take 1 tablet by mouth daily for 4 days. Patient taking differently: Take 1 tablet by mouth daily. Pt taking daily Dapagliflozin Pro-metFORMIN ER 5-1000 MG Tab SR 24 HR Sig: Take 2 tablets by mouth daily. Levothyroxine 50 MCG tablet Sig: Take 1 tablet by mouth daily. Metoprolol 100 MG tab regular release Sig: Take 1 tablet by mouth 2 times daily. Mounjaro 10 MG/0.5ML Solution Auto-injector Sig: Inject 10 mg as directed once a week. NINTEDANIB, BIBF 1120,/PLACEBO, [id number], 150 MG capsule Sig: Take 1 capsule by mouth every 12 hours. clopidogrel (PLAVIX) 75 MG PO TABS Sig: Take 1 tablet by mouth at bedtime. donepezil 5 MG tablet Sig: Take 1 tablet by mouth At bedtime. ezetimibe (ZETIA) 10 MG PO TABS Sig: Take 1 tablet by mouth at bedtime. gliMEPIride 4 MG tablet Sig: Take 1 tablet by mouth daily every morning. lisinopril 20 MG Tab Sig: Take 1 tablet by mouth daily. nitroGLYCERIN 0.4 MG tablet SL Sig: Place 1 tablet under tongue every 5 minutes as needed for Chest pain. max = 3 doses. If CP persists after 1st dose, call 911 nortriptyline 25 MG PO CAPS Sig: Take 1 capsule by mouth at bedtime. oxyBUTYnin CR 10 MG Tab SR 24 HR tablet Sig: Take 1 tablet by mouth 2 times daily. pantoprazole [address] Sig: Take 1 tablet by mouth daily. rosuvastatin 10 MG Tab tablet Sig: Take 1 tablet by mouth daily. Facility-Administered Medications: None I have reviewed the home medication list with the Student. The home medication list status is: complete and home med list marked as reviewed . All changes to the home medication list have been updated in [facility]. Please feel free to contact me with any further questions. Name: Clarisa Valencia [facility] Phone #: [phone] Date/Time: 03/15/2025 3:09 PM I have seen and examined the patient. I have reviewed the chart for relevant labs, images and medications. I have reviewed the resident/DATA ENTRY SUPERVISOR note and agree with the assessment/plan with the following additions. Background:75M T2DM HL HTN interstitial fibrotic lung disease presented for transthoracic R retropleural lateral discectomy; postop course c/b RLE weakness. 24h events:tx to NCCU for acute RLE weakness Exam:delirious but follows commands; thinks its 2025; RLE is now antigravity, per before he couldn't move it; LLE is 3-4/5; recovering DF/PF, which is better than hips on R Pt is a 75M who is critically ill 2/2 acute postoperative respiratory insufficiency in setting of IPF. 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 Should also help his colonic ileus. Daily KUBs to assess colonic ileus and he's on movantik for his ileus which is presumed 2/2 opioids + postop state; check with NSGY regarding timing for resumption of chem dvt prophy; diurese with 40 of lasix IV X 1 at 12pm and assess response. IR consult placed to drain R pleural effusion. Total critical care time spent is 35 minutes. Discharge Planning Assessment Is the patient able to participate in the assessment?: Yes Care Management Plan Assessment completed with patient and spouse, Idalia Lemons, at bedside. Prior to admission, patient independent with ADLs, but using straight cane in past 3 months. Patient lives with spouse in single family home, 3 STORM with rail and first floor bed and bath.Patient also has front wheel walker, grab bars, bedside commode, shower chair, and walk in shower in home. No HHC/O2 prior to admission. HCPOA is spouse, Idalia Lemons- documentation uploaded today. Initial Discharge Planning Expected Discharge Disposition: Inpatient Rehab Facility Transportation Available for Discharge: Ambulance Anticipated DME: unknown at this time Anticipated Services at Discharge: Physical Therapy, Occupational Therapy, Outpatient follow up Patient Assessment Completed: Initial Legal Next of Kin Does the patient have a Guardian?: No Spouse: Yes Name and Contact information: Idalia Lemons ([phone]) Adult Child(shantel), List All Adult Children: Yes Name and Contact information: Crow Lemons ([phone]) Would you like to add additional adult children?: Yes Name and Contact information: Evelina Whitman ([phone]) Reviewed and Updated in Demographics? : Yes Advanced Care Planning Has the patient completed Advance Directives?: Completed, Available in Medical Record Reviewed for accuracy with patient?: Yes Advanced Directives on File: HealthCare Power of Research Technician, Living Will Medication Management Does the patient have prescription insurance coverage? : Yes Is the patient on Anticoagulation? : No [id number] [place] [address] [address] [facility] [address] [facility] [id number] Living Environment and Support System Is the patient from a facility or fci?: No Living Environment: House Patient Caregiving Responsibilities: Self Patient-identified caregiver/support network: Family Who does the patient identify as a teachable caregiver(s)?: Spouse or Partner Services Does the patient use a home health or hospice agency?: No Current with dialysis?: No Does the patient use any community programs or services?: No Does patient use DME? : walker, straight cane Would you like to add additional DME providers?: No Does the patient use oxygen?: No Does patient use medical supplies? : none Anticipated Changes Related to Illness/Injury? : Unknown at this time Initial ADLs Prior to Arrival What is the patient's reported baseline physical functioning prior to this acute illness?: independent What is the patient's reported baseline cognitive functioning prior to this acute illness?: independent Is the patient's baseline functioning changed by this acute illness? : No Concerns with patient being able to care for themselves at home? : No Valentine Cheney Social Work Student Available by secure chat Cosigned by RONY Squires at 03/15/2025 9:54 AM EDT Acute Occupational Therapy Treatment Prior Gross Functional Mobility: independent, used device Current AM-PAC score(s): CURRENT AM-PAC Activity Raw Score: 11 Based on the above AM-PAC score(s), and OT clinical judgment, discharge destination recommendation is: Inpatient Rehab Facility Supporting Factors (would benefit from skilled therapy services): Patient status is anticipated to be appropriate to tolerate inpatient rehab therapy requirements at time of discharge from acute care, Impaired functional status, Decreased strength, Impaired balance, Decreased endurance, Impaired self-care abilities, Impaired cognitive status, Assistance needed with functional mobility, Fall risk Mobility equipment available at home: front-wheeled walker, straight cane ADL equipment available at home: grab bars Equipment recommendations for discharge: patient lift, wheelchair Equipment issued: Current therapy frequency recommendation(s) in acute: 5 times a week Activity Recommendations for outside of rehab session: HOB elevation/chair position versus use of Kristofer lift as able with restrictions. Precautions and Weightbearing Status: OT Existing Precautions/Restrictions: fall, cardiac, supplemental oxygen, spinal Lines/Tubes/Drains (Rehab Status): Urinary catheter, Telemetry Patient Safety Communication Prior to Visit: Nursing Subjective: Pt's family present and reporting pt did not sleep at all last night and reports having hallucinations. Pain: General Pain Documentation (Adult, OB, Peds) Presence of Pain: reports pain/discomfort Pain Location: back DVPRS (Defense and Veterans Pain Rating Scale) DVPRS: Rest: 0- no pain DVPRS: Activity: 6- moderate pain Objective/Observation: Vitals/Vitals Responses to Treatment: No adverse reactions noted. O2 Device: nasal cannula Flow (L/min): 5 Vision Screen Currently wearing corrective lenses: No Subjective Patient Complaints: Blurry vision (Pt reporting acute changes to vision and overall blurred vision.) Clinical Observations: This date, pt appears to present with limitations in depth perception and an overall right gaze/cervical rotation preference, but scanning into all price with minimal cueing. Visual Impairments Observed?: Yes Speech Speech: other (see comments) (Mildly garbled.) Hearing Hearing: hard of hearing (Mild.) Cognition Overall Cognitive Status: Impaired Arousal/Alertness: Delayed responses to stimuli Orientation Level: Oriented to person (Pt initially reporting location as [facility]. With cueing/education, pt able to recall [facility] at end of session; Pt reported month as March and unable to report year; Pt also initially reporting birthdate inaccurately, but able to correct.) Following Commands: Follows one step commands with increased time, Follows one step commands with repetition Safety Judgment: Decreased awareness of need for assistance, Decreased awareness of need for safety Awareness of Errors: Decreased awareness of errors Deficits: Not aware of deficits Attention Span: Attends with cues to redirect, Difficulty attending to directions, Difficulty dividing attention Memory: Decreased intermission coordinator memory, Decreased short term memory Problem Solving: Assistance required to identify errors made, Assistance required to generate solutions, Assistance required to implement solutions Cognition Comments: Delayed processing rate/motor planning; Moderate lethargy, frequently requiring cues to re-alert/maintain alertness; Flat affect; Moderate confusion; Overall, decreased insight into deficits/safety awareness. ADL Assessment/Intervention: LE Dressing Assistance: Total LE Dressing Location: bed level LE Dressing Deficit: Don/doff R sock, Don/doff L sock Toilet Assistance: Toileting Intervention/Details: Pt unable to manage bowels on toilet and, in turn, no need for hygiene/shyann-care performance this date. Max assistance x 2 required for safe toilet transfer. Extremity Assessments: See OT Evaluation flowsheet for Extremity Measurement updates. Balance: Sitting Balance Static Sitting-Level of Assistance: (CGA-minimal assistance) Dynamic Sitting-Level of Assistance: (Minimal-moderate assistance) Sitting Balance Skilled Intervention/Details: Seated EOB for about 8 minutes and on bedside commode for about 10 minutes, mostly requiring cues for safety and with retropulsive lean and mild right lateral lean. Pt appears heavily reliant on UEs for balance support. Standing Balance Static Standing-Level of Assistance: Maximum assistance, 2-person assist Dynamic Standing-Level of Assistance: Maximum assistance, 2-person assist Standing Balance Skilled Intervention/Details: Standing for about 30 seconds at a time (x several trials) while completing functional transfers and toileting, mostly requiring cues for safety and with initial hip extension, retropulsive lean, bilateral LE buckling (left>right), and kyphotic posture. Skin and Edema: Skin Integrity Skin Integrity Description: WFL (Visible areas.) Edema Edema: none noted Mobility Assessment/Intervention: Scooting Bridging Mobility Nelson Level: Scooting/Bridging: dependent (less than 25% patient effort) Physical Assist: Scooting/Bridgin person assist Bed Features/Set-up: Scooting/Bridging: Flat Supine to Sit Mobility Nelson Level: Supine->Sit: maximum assist (25% patient effort) Physical Assist: Supine->Sit: 2 person assist Bed Features/Set-up: Supine->Sit: Head of bed elevated, Use of bed rail Skilled Rationale: Cues for increased safety, Initiation and execution of task, Technique of activity, Full extension to upright positioning/posture, Facilitate anterior shift, Tactile cues, Verbal cues, Hand placement, Sequencing, Positioning Skilled Intervention/Details: Supine->Sit: Cues for initiation/sequencing/safety/use of log-roll technique, as well as assisting with upper trunk support, LEs, and aligning hips to midline. Increased time/effort for performance. Sit to Supine Mobility Nelson Level: Sit->Supine: maximum assist (25% patient effort) Physical Assist: Sit->Supine: 2 person assist Bed Features/Set-up: Sit->Supine: Flat, Use of bed rail Skilled Rationale: Cues for increased safety, Initiation and execution of task, Technique of activity, Tactile cues, Hand placement, Verbal cues, Sequencing, Positioning Skilled Intervention/Details: Sit->Supine: Cues for initiation/sequencing/safety/use of log-roll technique, as well as assisting with upper trunk support and LEs. Transfer Assessment/Intervention: Sit to Stand Transfer Nelson Level: Sit->Stand: maximum assist (25% patient effort) (x 2 trials from EOB.) Physical Assist: Sit->Stand: 2 person assist Assistive Device: Sit->Stand: gait belt, arm in arm Skilled Rationale: Cues for increased safety, Initiation and execution of task, Technique of activity, Upright gaze/neck extension, Full extension to upright positioning/posture, Facilitate anterior shift, Tactile cues, Verbal cues, Hand placement, Sequencing, Positioning, Patellar block, Ischial assist Skilled Intervention/Details: Sit->Stand: Cues for initiation/sequencing/safety, as well as assisting with initial hip extension, retropulsive lean, bilateral LE buckling (left>right), and kyphotic posture. Stand to Sit Transfer Nelson Level: Stand->Sit: maximum assist (25% patient effort) Physical Assist: Stand->Sit: 2 person assist Assistive Device: Stand->Sit: gait belt, arm in arm Skilled Rationale: Cues for increased safety, Initiation and execution of task, Technique of activity, Controlled descent for sitting, Tactile cues, Verbal cues, Hand placement, Sequencing, Positioning, Ischial assist Bed-Chair Transfer Nelson Level: Bed<->Chair: maximum assist (25% patient effort) (EOB<>Bedside commode.) Physical Assist: Bed<->Chair: 2 person assist Assistive Device: Bed<->Chair: gait belt, arm in arm (Non-skid socks.) Skilled Rationale: Cues for increased safety, Initiation and execution of task, Technique of activity, Upright gaze/neck extension, Controlled descent for sitting, Full extension to upright positioning/posture, Facilitate anterior shift, Ischial assist, Patellar block, Tactile cues, Verbal cues, Hand placement, Sequencing, Positioning Skilled Intervention/Details: Bed<->Chair: Cues for initiation/sequencing/safety, as well as assisting with maintenance of upright posture. Pt unable to initiate lateral weight shifting or side-stepping this date, requiring pivot to right/left to transfer to/from bedside commode. Toilet Transfer Nelson Level: Toilet: maximum assist (25% patient effort) (Bedside commode.) Physical Assist: Toilet: 2 person assist Assistive Device: Toilet: gait belt, arm in arm Skilled Rationale: Cues for increased safety, Initiation and execution of task, Technique of activity, Upright gaze/neck extension, Controlled descent for sitting, Full extension to upright positioning/posture, Facilitate anterior shift, Tactile cues, Verbal cues, Hand placement, Sequencing, Positioning Skilled Intervention/Details: Toilet: Cues for initiation/sequencing/safety, as well as assisting with initial hip extension, retropulsive lean, bilateral LE buckling (left>right), and kyphotic posture upon standing and eccentric control/body positioning upon descent. Outcome Score(s): CURRENT [facility] Daily Activity Inpatient Short Form Putting on/Taking Off Lower Body Clothin - Total Assistance Bathin - A Lot of Assistance Toiletin - Total Assistance Putting on/Taking Off Upper Body Clothin - A Lot of Assistance Groomin - A Lot of Assistance Eatin - A Little Assistance CURRENT [facility] Activity Raw Score: [address] [facility] Activity Functional Limitation/Modifier: 70.42% Currently Impaired in Daily Activity - CL Interventions: Intervention 1 Intervention Name: Pt requiring re-education on spinal precautions and cueing throughout to adhere. Intervention 2 Intervention Name: Therapist provided pt and pt's family education on delirium precautions, including lights on during day/off at night, day/night cycle with engaging activities during day and minimal naps and minimal stimulation at night, etc. Pt and pt's family verbalizing understanding. Intervention 3 Intervention Name: Therapist provided pt and pt's family education on exercises to complete for right shoulder (per request), verbalizing understanding. Assessment & Plan: Pt is demonstrating Fair progress in occupational therapy goals this date, primarily in static seated balance, left UE ROM, and speech. However, pt's barriers to discharge and overall inhibitors in ADL/IADL/functional transfer performance/independence include pt's deficits in endurance/activity tolerance, bed mobility, dynamic seated balance, static standing balance, dynamic standing balance, functional transfers, functional mobility, right UE ROM, left UE strength, right UE strength, left UE coordination, right UE coordination, vision, alertness, and cognition. Pt would benefit from continued acute occupational therapy services prior to discharge to address noted deficits and progress towards achieving increased independence in occupational performance. Patient Instruction/Education this session: Learners: Patient, Family Education provided: Balance training, Bed mobility, Discharge recommendations, Plan of care, Positioning, Role of this discipline, Safety, Activity outside of therapy, Fall precautions, Functional transfers, Pain management, Precautions/weight bearing status Plan for next session: Therapist to address further dynamic seated EOB balance, standing activity tolerance/balance/functional transfer performance, and ADL engagement with spinal precautions and use of AE. Acute OT Goals Plan of Care by Kelli Bermudez OT at 03/15/2025 9:34 AM Version 1 of 1 Problem: OT - ADLs Goal: Bathing - Patient will perform full body bathing routine with minimal assistance and use of AE, as needed, while seated for improved ability to complete self-care activities Outcome: Ongoing Problem: OT - Strength/ROM Goal: Strength/ROM ADL Participation - Patient will participate in UE exercise program with independence to prevent deconditioning while in hospital and to max UE ROM/Coordination/strength for ADLs. Outcome: Ongoing Problem: OT - ADLs Goal: Lower Body Dressing - Patient will complete lower body dressing tasks with minimal assistance using adaptive equipment/compensatory strategies as needed for improved ability to complete self-care activities. Outcome: Progressing Problem: OT - Transfers Goal: Transfers Toilet/ Bedside Commode - Patient will transfer to/from toilet/bedside commode with minimal assistance for improved ability to safely complete ADLs. Outcome: Progressing Problem: OT - Balance Goal: Balance - Standing - Patient will perform 4-5 minutes of functional task in standing with minimal assistance and fair balance to promote safety and improved balance required for self-care activities. Outcome: Progressing Problem: OT - Other Goal: Precaution Adherence - Patient will demonstrate 100% adherence to precautions during all ADLs and functional transfers to promote safety during daily routine. Outcome: Progressing OT treatment consisted of the following to work and progress towards the above goal(s): OT Evaluation and Treatment Time Self Care/Home Management (ADLs) Time Entry: 15 Therapeutic Activity Time Entry: 16 Treating Therapist: Kelli Bermudez OT Additional Details: OT Co-Eval/Treatment Information Co-evaluation/co-treatment performed?: Yes, simultaneous billable skilled care was necessary due to medical complexity and functional deficits Other discipline: PT Rationale for need to co-eval/treat: cognition, coordination, postural control, alertness/arousal Co-treatment goal focus: balance, transfer, endurance, coordination, self-care, cognition, strength PPE used during patient interaction: gloves Patient location at end of session: bed with head of bed elevated Alarms on at end of session: RN aware, none Needs in reach. Time In: 932 Time Out: 1004 Total Visit Time: 31 minutes Total Treatment Time (skilled, billable minutes): 31 minutes Upon discontinuation of Acute Care Occupational Therapy Services or patient discharge from the hospital this note represents the current Occupational Therapy Discharge Summary. Acute Physical Therapy Treatment Prior Gross Functional Mobility: independent, used device Current AM-PAC score(s): CURRENT AM-PAC Mobility Raw Score: 7 Based on the above AM-PAC score(s) and PT clinical judgment, patient is a good candidate for discharge to Inpatient Rehab Facility Supporting Factors (would benefit from skilled therapy services): Impaired functional status, Patient status is anticipated to be appropriate to tolerate inpatient rehab therapy requirements at time of discharge from acute care, Decreased strength, Impaired balance, Decreased endurance necessitating skilled therapy services, but able to tolerate therapy requirements for inpatient rehab, Impaired self-care abilities, Fall risk Mobility equipment available at home: front-wheeled walker, straight cane ADL equipment available at home: grab bars Equipment needed for discharge: to be determined Current therapy frequency recommendation in acute: PT Therapy Frequency: 6 times a week Activity Recommendations for outside of rehab session: chair position Precautions and Weightbearing Status: Existing Precautions/Restrictions: fall, spinal Lines/Tubes/Drains (Rehab Status): Urinary catheter, Telemetry Patient Safety Communication Prior to Visit: Nursing Subjective: Patient supine in bed and agreeable to therapy. Pain: General Pain Documentation (Adult, OB, Peds) Presence of Pain: reports pain/discomfort Pain Location: back DVPRS (Defense and Veterans Pain Rating Scale) DVPRS: Rest: 0- no pain DVPRS: Activity: 6- moderate pain Objective/Observation: Vitals/Vitals Responses to Treatment: VSS O2 Device: nasal cannula Flow (L/min): 5 Cognition Overall Cognitive Status: Impaired Arousal/Alertness: Delayed responses to stimuli Orientation Level: Oriented to person Extremity Assessments: See PT Evaluation flowsheet for Extremity Measurement updates. Skin and Edema: Balance: Sitting Balance Static Sitting-Level of Assistance: (CGA-min) Dynamic Sitting-Level of Assistance: (min-mod) Skilled Rationale: Verbal cues, Tactile cues, Visual cues, Positioning, Full extension to upright positioning/posture, Finding/maintaining midline positioning, Technique of activity Sitting Balance Skilled Intervention/Details: Cues for positioning and midline orientation. Patient with posterior right lean but able to correct with multi-modal cues and frequent re-education. Standing Balance Static Standing-Level of Assistance: Maximum assistance, 2-person assist Dynamic Standing-Level of Assistance: Maximum assistance, 2-person assist Standing-Balance Support: Arm in arm, Gait belt Skilled Rationale: Verbal cues, Sequencing, Facilitate anterior shift Standing Balance Skilled Intervention/Details: Cues for upright posture nad maintaining appropriate MARK. Patient educated for lateral weight shifts in standing with poro compliance. Mobility Assessment/Intervention: Scooting Bridging Mobility Nelson Level: Scooting/Bridging: dependent (less than 25% patient effort) Physical Assist: Scooting/Bridgin person assist Bed Features/Set-up: Scooting/Bridging: Flat Skilled Rationale: Verbal cues Skilled Intervention/Details: Scooting/Bridging: boost in bed Supine to Sit Mobility Nelson Level: Supine->Sit: maximum assist (25% patient effort) Physical Assist: Supine->Sit: 2 person assist Bed Features/Set-up: Supine->Sit: Head of bed elevated, Use of bed rail Skilled Rationale: Verbal cues, Sequencing, Technique of activity, Initiation and execution of task, Maintain precautions Skilled Intervention/Details: Supine->Sit: cues for log roll and assist for BLE and trunk Sit to Supine Mobility Nelson Level: Sit->Supine: maximum assist (25% patient effort) Physical Assist: Sit->Supine: 2 person assist Bed Features/Set-up: Sit->Supine: Flat Skilled Rationale: Verbal cues, Sequencing, Cues for increased safety Skilled Intervention/Details: Sit->Supine: cues for reverse log roll Transfer Assessment/Intervention: Sit to Stand Transfer Nelson Level: Sit->Stand: maximum assist (25% patient effort) Physical Assist: Sit->Stand: 2 person assist Assistive Device: Sit->Stand: gait belt, arm in arm Skilled Rationale: Verbal cues, Sequencing, Facilitate anterior shift, Full extension to upright positioning/posture, Patellar block, Ischial assist Skilled Intervention/Details: Sit->Stand: x2 from EOB with cues for sequencing Bed-Chair Transfer Nelson Level: Bed<->Chair: maximum assist (25% patient effort) Physical Assist: Bed<->Chair: 2 person assist Assistive Device: Bed<->Chair: gait belt, arm in arm Skilled Rationale: Verbal cues, Sequencing, Controlled descent for sitting, Technique of activity, Initiation and execution of task Skilled Intervention/Details: Bed<->Chair: x2 trials to/from BSC wtih limited ability for pivoting/taking steps Gait/Functional Mobility Assessment/Intervention: Stairs Assessment/Intervention: CURRENT [facility] Basic Mobility Inpatient Short Form Turning over in bed: 2 - A Lot of Assistance Moving from lying on back to sittin - Total Assistance Moving to and from bed to chair: 1 - Total Assistance Sitting/standing from chair: 1 - Total Assistance Walk in hospital room: 1 - Total Assistance Climbing 3-5 steps with a railin - Total Assistance CURRENT [facility] Mobility Raw Score: [address] [facility] Mobility Functional Limitation: 92.36% Impaired in Basic Mobility Interventions: Assessment & Plan: Patient progressing toward goals slowly with progression of transfers and stand pivot transfers. Patient continues to be limited by impaired balance, transfers, and increased risk for falls. Patient would benefit from continued PT to improve functional mobility and independence to allow for improved quality of life. Patient Instruction/Education this session: Learners: Patient, Spouse Education provided: Activity outside of therapy Plan for next session: Progress balance and transfers Acute PT Goals Plan of Care by Anmol Cox PT at 03/15/2025 12:21 PM Version 1 of 1 Problem: PT - General Goals Goal: Supine <-> Sit Transfers - Patient will perform supine to/from sit transfers with independence and without use of hospital bed features in order to improve functional mobility and safety. Outcome: Not Progressing Goal: Sit <-> Stand Transfers - Patient will perform sit to/from stand transfers with contact guard assistance and wit AD in order to improve functional mobility and safety. Outcome: Not Progressing Goal: Stand/Squat Pivot Transfers - Patient will perform stand pivot transfer to/from bed/chair/commode with modified independence and front-wheeled walker in order to improve functional mobility and safety. Outcome: Not Progressing PT treatment consisted of the following to progress towards the above goal(s): PT Evaluation and Treatment Time Therapeutic Exercise Time Entry: 6 Therapeutic Activity Time Entry: 25 Treating Therapist: Anmol Cox PT Additional Details: PT Co-Eval/Treatment Information Co-evaluation/co-treatment performed?: Yes, simultaneous billable skilled care was necessary due to medical complexity and functional deficits Other discipline: OT Rationale for need to co-eval/treat: cognition, postural control Co-treatment goal focus: balance, mobility, transfer PPE used during patient interaction: gloves Patient location at end of session: bed with head of bed elevated Alarms on at end of session: RN aware Needs in reach. Time In: 932 Time Out: 100 Total Visit Time: 31 minutes Total Treatment Time (skilled, billable minutes): 31 minutes Upon discontinuation of Acute Care Physical Therapy Services or patient discharge from the hospital this note represents the current Physical Therapy Discharge Summary. NEUROCRITICAL CARE DAILY NOTE HOSPITAL VISIT DEMOGRAPHICS Patient: Gracie Lemons Code status: Full Code Admission date: 03/11/2025 10:21 AM Hospital days: LOS: 4 days HISTORY OF PRESENT ILLNESS Gracie Lemons is a 75 y.o. male with a past history of DMT2, HTN, HLD, CAD on plavix (Last dose 03/04), and prior L3-S1 posterior decompression and fusion with Dr Wiseman on 07/15/12, who presents as a direct admit for surgical management of a T7-8 central disc herniation. Given the progression of instability and radiographic findings he underwent a Right 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 on 03/11 which was complicated by a pneumothorax. Unfortunately, he had worsening RLE weakness on 03/14 and was transferred to the [facility] for close monitoring and additional workup. INTERVAL HISTORY SINCE ADMISSION 03/11/2025: post 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 03/13: New weakness in BLE 03/14: Transferred to [facility] 03/15:Repeat KUB. NC ? 4H. PHYSICAL EXAM GENERAL: Alert, no acute distress HEENT: normocephalic, no scalp wounds nor lesions CARDIO: +S1S2, RRR, no m/r/g, no edema PULM: Diminished breath sounds with RML and bilateral lower lobes. On NC ABDOMINAL: soft, nontender, nondistended, active bowel sounds EXTREMITIES: no wounds or lesions VASCULAR: 2+ distal pulses, capillary refill <3 seconds NEURO: Mental status: alert; oriented to person, place, year, and month; good attention Speech/language: fluent; comprehension intact; object naming intact; repetition intact Cranial nerves: CN II: Visual price intact to confrontation. PERRL. 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 No nystagmus. CN V: Facial sensation intact to light touch. CN VII: Facial strength normal with symmetric movement. CN VIII: Hearing is grossly intact. CN IX and X: Soft palate elevates symmetrically in the midline CN XI: Shoulder shrug and sternocleidomastoid strength 5/5 bilaterally CN XII: Tongue is midline with normal movement; no fasciculations Motor: Normal bulk and tone. Neck Ext Neck Flex Delt Bicep Tricep WE WF Agricultural Service Technician HE HF KE KF DF PF EHL R 5 5 5 5 3 2 2 2 2 L 5 5 5 5 4 4 4 5 5 Sensation: Patchy, inconsistent sensory loss in b/l lower extremities. Coordination: without ataxia/dysmetria on FTS ASSESSMENT AND PLAN Neuro: (03/11/2025) 4 Days Post-Op s/p 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 Px L3-S1 posterior decompression and fusion - Post-op Spine Management - Monitor lami checks Q1H and neuro checks Q1H - Encourage spinal perfusion and prevent postop hemorrhage with goal SBP <180, MAP >65 - Postop imaging: - 03/13 MRI T Spine: Interval right lateral T7-T8 discectomy. Previously visible dorsal disc osteophyte is no longer seen with decompression of the spinal canal. No thoracic spinal cord signal abnormality. - 03/14: MRI C-spine: no obvious signal changes. - 03/14: MRI L- spine: no obvious signal changes. Pain/Sedation management: - Oxycodone 5-10mg Q4H PRN - Fentanyl 25-50 mg Q2H PRN (discontinued) - Flexeril 10 mg TID - Nortriptyline 25 mg daily (home regimen for burning sensation) Psych: Depression Pulm: Acute Pulmonary Insufficiency Following Non-Thoracic Surgery Fibrotic lung disease O2 Sat (%): 96 % (03/15 1100) O2 Device: nasal cannula (03/15 1004) Flow (L/min): 5 (03/15 1004) - Goal SpO2 >92%; wean FiO2 as tolerated - [id number], encourage pulmonary toileting - 03/13 CT Chest: - 03/14 CXR: Small right hydropneumothorax. Complete atelectasis of the right lower lobe and significant partial atelectasis of the right upper and middle lobes do both to compressive atelectasis from the effusion as well as obstructive mucous plugging and postobstructive atelectasis. A right thoracostomy tube is outside the thoracic cavity terminating in the sixth rib osteotomy with a clearly layer of subpleural fat between the tube tip in the pleural effusion. - Chest tube present on arrival, appears to have been placed the day of surgery though indication is unknown. Was removed at bedside 03/14 due to placement. 03/15: Slightly improved R pleural effusion Fibrotic lung disease: - Holding home Nintedanib per pulm given concern for delayed wound healing and bleeding Cards: Essential HTN HLD CAD s/p KEYANA LCX/OM 2012 Temp: [97.8 F (36.6 C)-98.2 F (36.8 C)] 98 F (36.7 C) Pulse (Heart Rate): [86-111] 89 Resp Rate: [20-44] 30 BP: (90-135)/(55-97) 100/55 O2 Sat (%): [91 %-100 %] 96 % - Goal SBP <180, MAP >65 - Home antihypertensives: Lisinopril 20 mg daily, Metoprolol 50 mg BID - Current regimen: - PRN labetalol and hydralazine - 03/14 ECG: sinus tach - Statin Therapy: Indicated if LDL >70; continue home Rosuvastatin 10 mg and Zetia 10 mg daily No results for input(s): CHOLESTEROL, TRIG, HDL, LDLCALC, LDLDIRECT in the last 72 hours. CAD: Home meds: metoprolol, clopidogrel, Crestor and Zetia. - Plavix held for procedures earlier this year PTCA with KEYANA of proximal 3rd marginal artery 04/30/13 - Per chart review, on DAPT (Holding Plavix) Essential HTN: - Home meds: Lopressor 50 BID HLD: - Continue Crestor and Ezetia Echocardiogram from 05/29/2024: Interpretation Summary The estimated ejection fraction is 60 %. No evidence for diastolic dysfunction. Stress test from 06/02/2024: Impression: 1. There is no evidence of significant ischemia or infarction. 2. Estimated ejection fraction is 67%. Renal/: BPH Fluid Balance: - Goal: euvolemia - Continue lei (indication: I/O monitoring) Intake/Output Summary (Last 24 hours) at 03/15/2025 1327 Last data filed at 03/15/2025 1016 Gross per 24 hour Intake 1249.57 ml Output 1950 ml Net -700.43 ml - Daily Chem 10; electrolytes replaced per [facility] protocol Recent Labs 03/13/25232703/15/25 000 SODIUM 138 139 POTASSIUM 3.8 3.5 CHLORIDE 101 99 CO2 BUN 13 15 CREATSERUM 0.96 0.95 PHOSPHORUS 2.4 2.3 MAGNESIUM 1.5* 1.7 ICA -- 3.97* GI/Nutrition: GERD Recent Labs 03/15/25 000 AMMONIA 41 - DIET CARB CONTROLLED - Bowel regimen: - Last Bowel Movement: 03/15/25 - Senna, miralax Stress ulcer prophylaxis: - Continue home pantoprazole Endo: DM Type II Hypothyroid - Goal blood glucose 140-180 - Insulin SSI: Monitor for need - Home medications: Munjaro, metformin, glimepiride and farxiga Recent Labs 03/13/25232703/14/25 0807 03/14/25 1229 03/15/25 000 GLUCOSE 144 147 113 172 -Continue levothyroxine 50 mcg daily ID: Acute Leukocytosis 2/2 reactionary vs PNA Recent Labs 03/13/25232703/15/258 WBC 14.25* 11.89* PROCALCITONI -- 0.45 - Temp (24hrs), Av F (36.7 C), Min:97.8 F (36.6 C), Max:98.2 F (36.8 C) - PRN Tylenol for T>100.4F - Most recent and positive cultures: Date Collected Source Result Date Finalized 03/05 Staph nasal swab MRSA negative 03/14 Staph nasal swab pending - Antiinfectives: Start Date Antiinfective Coverage Course Length Stop Date 03/14 Vancomycin 03/14 Ceftriaxone Heme/Onc: No Current Issues Recent Labs 03/13/25232703/15/25 0009 WBC 14.25* 11.89* RBC 3.58* 3.68* HGB 11.7* 11.9* HCT 36.6* 37.2* PLATELET 215 228 - Goal plt >100, INR <1.4, Hgb >7 - OR EBL: minimal DVT prophylaxis: - SCDs Musc: No Current Issues - PT/OT consulted and following - Current Activity Order: AAT Fall Risk: - Assessed for patient fall risk and discussed safety measures during rounding. Social/Dispo: - Code status: Full Code - /: Medications reconciled - Discharge planning per PCRM/SW. Quality Self-Check Complexity. Hypocalcemia - Continue to monitor and replete. Obesity, class I Body mass index is 30.2 kg/m . - Follow with PCP for dietary and lifestyle modifications. Hypothyroidism - Continue thyroid replacement. Other Reduced Mobility - continue PT/OT. Wound Documentation Wound Surgical 03/11/25 1525 Lateral;Right;Upper Flank (Active) Date First Assessed/Time First Assessed: 03/11/25 152 Primary Wound Type: Surgical Present on Original Admission: No Incision Closure/Dressing: Dermabond;Primapore Wound Location Orientation: Lateral;Right;Upper Location: Flank Wound Other (Comment) 03/11/252129 Left;Posterior Ulnar (Active) Date First Assessed/Time First Assessed: 03/11/252129 Primary Wound Type: (c) Other (Comment) Present on Original Admission: No Wound Location Orientation: Left;Posterior Location: Ulnar Wound Pressure Injury Suspected 03/14/25 123 Buttocks (Active) Date First Assessed/Time First Assessed: 03/14/25 123 Primary Wound Type: Pressure Injury Secondary Wound Type - Pressure Injury: Suspected Device Related: no Wound Description: red cracked and bleeding Location: Buttocks Any conditions listed below are present on admission unless otherwise specified. . ICU Checklist: [x] Assess pain Presence of Pain: reports pain/discomfort Presence of Pain Score (Auto-calculated): 0 [x] Both SAT & SBT [x] Choice of analgesia/ sedation See neuro [x] Delirium [x] Early mobility PT/OT consulted?: Yes CURRENT AM-PAC Mobility Raw Score: 7 CURRENT AM-PAC Mobility Functional Limitation: 92.36% Impaired in Basic Mobility [x] Family Engagement Primary Emergency Contact: Idalia Lemons Last updated: [x] Get lines out Arterial line: inserted , (indication:) Lei: inserted 03/14, (indication:I/O management) Rectal tube: inserted , (indication:) Enteral access: inserted /, [ ] gastric; [ ] post-pyloric Central lines: Discussed with [facility] Attending, Dr. Ten Barcenas MD 03/15/25 1:27 PM Check the treatment team to find the assigned neurocritical care provider (resident, fellow, DATA ENTRY SUPERVISOR, or PA) or page/call the corresponding number below [facility] (Beds [phone]): , pager #[phone] [facility] (Beds [phone], 12 Meng, and overflow): , pager #[phone] Cosigned by Soumya Hamilton MD, PhD at 03/15/2025 6:54 PM EDT [facility] attending progress note: 03/14/25 Summary: Gracie Lemons is a 75 y.o. male with a past history of DMT2, HTN, HLD, and ILD CAD on plavix (Last dose 03/04), and prior L3-S1 posterior decompression and fusion post a a Right 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 on 03/11 he had progressive lower ext weakness and respiratory distress. Exam: Temp: [98.1 F (36.7 C)-99.9 F (37.7 C)] 98.3 F (36.8 C) Pulse (Heart Rate): [94-118] 94 Resp Rate: [18-32] 20 BP: (100-126)/(55-78) 103/60 O2 Sat (%): [91 %-100 %] 100 % - Temp (24hrs), Av.8 F (37.1 C), Min:98.1 F (36.7 C), Max:99.9 F (37.7 C) Awake alert oriented x3 following commands KARLOS, EMOI Face symmetric Upper ext move antigravity pain limited arm raise in the right due shoulder injury Lower ext 1-2/5 hip flexion b/l Left knee ext 1/5 right 0/5 Left planter flexion 4/5 R 0/5 Neuro: Days Post-Op s/p 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 Px L3-S1 posterior decompression and fusion Post op pain Neuro checks q1h SBP<180 and MAP>65 Chest tube removed today by NSGY MRI T spine with no acute findings MRI brain C and L spine urgently today Will attempt a flat trail to assure stable respiratory status prior to MRI Pain/Sedation management: - Oxycodone 5-10mg Q4H PRN - Fentanyl 25-50 mg Q2H PRN - Flexeril 10 mg TID - Nortriptyline 25 mg daily (home regimen for burning sensation) Pulm: Fibrotic lung disease Acute hypoxia due atelectasis and mucus plugins Pulmonary is following Aggressive pulmonary hygiene Diuresis goal negative 1l Holding home Nintedanib CXR, ISQ1h Cards: HTN SBP<180, MAP>65 labetalol and hydralazine prn Renal: Is and Os, chem 10 daily ICU electrolyte replacement protocol GI: GERD, ppi Po diet Constipation aggressive bowel reg senna, miralax and S.M.O.G enema Movantik Endo: DMII Hypothyroid Continue levothyroxine 50 mcg daily ISS PocGlu<180 ID: Pneumonia Start vancomycin and Cefepime periop abx as per NSGY. Monitor fever curve, Tylenol prn for Temp>100.4 Hem: CBC, Plt>100, INR<1.4, SCD,Lovenox when cleared by nsgy Recent Labs 03/12/25 0110 03/13/25 0043 03/13/252327 SODIUM 139 137 138 POTASSIUM 4.3 3.9 3.8 CHLORIDE 103 103 101 CO2 BUN 6* 10 13 CREATSERUM 0.78 0.85 0.96 MAGNESIUM 1.3* 1.4* 1.5* PHOSPHORUS 1.9* 2.2 2.4 Recent Labs 03/13/252327 CRP 265.68* - DIET CARB CONTROLLED AAT - Recent Labs 03/13/25 1949 03/13/25 2319 03/13/25 2328 03/14/25 0807 GLUCOSE 123 151 144 147 Recent Labs 03/12/25 0110 03/13/25 0043 03/13/25 2328 WBC 8.83 16.35* 14.25* HGB 12.4* 12.4* 11.7* HCT 36.8* 37.6* 36.6* PLATELET 184 219 215 PT 13.8 -- -- PTT 28.6 -- -- INR 1.1 -- -- Ascorbic Acid 250 mg Oral Daily aspirin 81 mg Oral Daily azithromycin 500 mg Intravenous Q24H bisacodyl 10 mg Rectal Daily cefTRIAXone 2 g Intravenous Q24H Cyclobenzaprine 10 mg Oral TID donepezil 5 mg Oral QHS [Held by provider] enoxaparin 40 mg Subcutaneous Q24H Ergocalciferol 50,000 Units Oral Q7 days Ezetimibe 10 mg Oral QHS ferrous sulfate 324 mg Oral Daily Gabapentin 300 mg Oral QHS guaiFENesin 600 mg Oral Q12H Insulin lispro Subcutaneous 4x daily w/meals, HS Levothyroxine 50 mcg Oral Before BKF Lisinopril 20 mg Oral Daily Metoprolol 50 mg Oral BID Multi-Vitamins 1 tablet Oral Daily Nintedanib Esylate 150 mg Oral Q12H Nortriptyline 25 mg Oral QHS Pantoprazole 40 mg Oral Daily Polyethylene glycol 17 g Oral Q12H Or Polyethylene glycol 17 g Per NG tube Q12H Rosuvastatin 10 mg Oral Daily Senna 8.6 mg Oral Q12H Or Senna 8.6 mg Per NG tube Q12H vitamin E 400 Units Oral Daily alum/mag hydrox.-simethicone, Insulin lispro AND Insulin lispro AND BLOOD GLUCOSE (POC DEVICE) AND BLOOD GLUCOSE (POC DEVICE) AND COMMUNICATION ORDER FOR NURSING CARE: For Blood Glucose LESS THAN 80 mg/dl AND Dextrose AND glucose AND NOTIFY PHYSICIAN, Blood Glucose LESS THAN 80 mg/dl AND Carbohydrate counts with meals, diphenhydrAMINE, fentaNYL OR fentaNYL, Melatonin, oxyCODONE OR oxyCODONE, Prochlorperazine, Sodium chloride 0.9% This patient is critically ill, unstable and is at high risk of imminent or life threatening deterioration due to acute weakness, respiratory distress requiring , close neurologic and hemodynamic monitoring. I personally spent 33 minutes in the intensive care unit providing critical care services to the patient today independent of procedures, teaching and other care providers. My time managing this critically ill patient included review of interval history, laboratories, radiology and consultation reports; performing a physical examination; discussing the patient with the multi-disciplinary team and managing life sustaining therapies to prevent imminent clinical deterioration. Niko Caal MD, Division of Neurocritical Care Images from the original note were not included. Scoring Tool and Orders for Airway Clearance Therapy Plan of Care: Based on the patient's score of 15, Volara therapy will be ordered with a frequency of TID per Pulmonary Attending. Patient will be reassessed every 24 hours to determine score and if any changes to therapy and/or frequency are required. Noam Sharma RCP 03/14/2025 1:36 PM NEUROCRITICAL CARE DAILY NOTE HOSPITAL VISIT DEMOGRAPHICS Patient: Gracie Lemons Code status: Full Code Admission date: 03/11/2025 10:21 AM Hospital days: LOS: 3 days HISTORY OF PRESENT ILLNESS Gracie Lemons is a 75 y.o. male with a past history of DMT2, HTN, HLD, CAD on plavix (Last dose 03/04), and prior L3-S1 posterior decompression and fusion with Dr Wiseman on 07/15/12, who presents as a direct admit for surgical management of a T7-8 central disc herniation. Given the progression of instability and radiographic findings he underwent a Right 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 on 03/11 which was complicated by a pneumothorax. Unfortunately, he had worsening RLE weakness on 03/14 and was transferred to the [facility] for close monitoring and additional workup. INTERVAL HISTORY SINCE ADMISSION 03/11/2025: post 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 03/13: New weakness in BLE 03/14: Transferred to [facility] PHYSICAL EXAM GENERAL: Alert, no acute distress HEENT: normocephalic, no scalp wounds nor lesions CARDIO: +S1S2, RRR, no m/r/g, no edema PULM: Diminished breath sounds with RML and bilateral lower lobes. On NC ABDOMINAL: soft, nontender, nondistended, active bowel sounds EXTREMITIES: no wounds or lesions VASCULAR: 2+ distal pulses, capillary refill <3 seconds NEURO: Mental status: alert; oriented to person, place, year, and month; good attention Speech/language: fluent; comprehension intact; object naming intact; repetition intact Cranial nerves: CN II: Visual price intact to confrontation. 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 No nystagmus. CN V: Facial sensation intact to light touch. CN VII: Facial strength normal with symmetric movement. CN VIII: Hearing is grossly intact. CN IX and X: Soft palate elevates symmetrically in the midline CN XI: Shoulder shrug and sternocleidomastoid strength 5/5 bilaterally CN XII: Tongue is midline with normal movement; no fasciculations Motor: Normal bulk and tone. Neck Ext Neck Flex Delt Bicep Tricep WE WF Agricultural Service Technician HE HF KE KF DF PF EHL R 5 5 5 5 2 0 1 L 5 5 5 5 2 5 5 Sensation: Extremity sensation intact throughout. Coordination: without ataxia/dysmetria on FTS ASSESSMENT AND PLAN Neuro: (03/11/2025) 3 Days Post-Op s/p 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 Px L3-S1 posterior decompression and fusion - Post-op Spine Management - Monitor lami checks Q1H and neuro checks Q1H - Encourage spinal perfusion and prevent postop hemorrhage with goal SBP <180, MAP >65 - Postop imaging: - 03/13 MRI T Spine: Interval right lateral T7-T8 discectomy. Previously visible dorsal disc osteophyte is no longer seen with decompression of the spinal canal. No thoracic spinal cord signal abnormality. Pain/Sedation management: - Oxycodone 5-10mg Q4H PRN - Fentanyl 25-50 mg Q2H PRN - Flexeril 10 mg TID - Nortriptyline 25 mg daily (home regimen for burning sensation) Psych: Depression Pulm: Acute Pulmonary Insufficiency Following Non-Thoracic Surgery Fibrotic lung disease O2 Sat (%): 95 % (03/14 1235) O2 Device: nasal cannula (03/14 1235) Flow (L/min): 2 (03/14 1235) - Goal SpO2 >92%; wean FiO2 as tolerated - [id number], encourage pulmonary toileting - 03/13 CT Chest: - 03/14 CXR: Small right hydropneumothorax. Complete atelectasis of the right lower lobe and significant partial atelectasis of the right upper and middle lobes do both to compressive atelectasis from the effusion as well as obstructive mucous plugging and postobstructive atelectasis. A right thoracostomy tube is outside the thoracic cavity terminating in the sixth rib osteotomy with a clearly layer of subpleural fat between the tube tip in the pleural effusion. - Chest tube present on arrival, appears to have been placed the day of surgery though indication is unknown. Was removed at bedside 03/14 due to placement. Fibrotic lung disease: - Holding home Nintedanib per pulm given concern for delayed wound healing Cards: Essential HTN HLD CAD Temp: [98.1 F (36.7 C)-99.9 F (37.7 C)] 98.3 F (36.8 C) Pulse (Heart Rate): [104-118] 114 Resp Rate: [18-32] 32 BP: (100-126)/(55-78) 126/78 O2 Sat (%): [91 %-95 %] 95 % - Goal SBP <180, MAP >65 - Home antihypertensives: Lisinopril 20 mg daily, Metoprolol 50 mg BID - Current regimen: - PRN labetalol and hydralazine - 03/14 ECG: sinus tach - Statin Therapy: Indicated if LDL >70; continue home Rosuvastatin 10 mg and Zetia 10 mg daily No results for input(s): CHOLESTEROL, TRIG, HDL, LDLCALC, LDLDIRECT in the last 72 hours. CAD: - On Plavix at baseline. Held shyann-op Renal/: BPH Fluid Balance: - Goal: euvolemia - Continue lei (indication: I/O monitoring) Intake/Output Summary (Last 24 hours) at 03/14/2025 1258 Last data filed at 03/14/2025 1235 Gross per 24 hour Intake 250 ml Output 1827 ml Net -1577 ml - Daily Chem 10; electrolytes replaced per [facility] protocol Recent Labs 03/13/254203/13/252327 SODIUM 137 138 POTASSIUM 3.9 3.8 CHLORIDE 103 101 CO2 BUN 10 13 CREATSERUM 0.85 0.96 PHOSPHORUS 2.2 2.4 MAGNESIUM 1.4* 1.5* GI/Nutrition: GERD No results for input(s): ALBUMIN, BILIDIRECT, BILITOTAL, ALKPHOS, ALT, AST, TP, AMYLASE, LIPASE, AMMONIA in the last 72 hours. - DIET CARB CONTROLLED - Bowel regimen: - - Senna, miralax Stress ulcer prophylaxis: - Continue home pantoprazole Endo: DM Type II Hypothyroid - Goal blood glucose 140-180 - Insulin SSI: Monitor for need Recent Labs 03/13/25 19403/13/25 23103/13/25232703/14/25 0807 GLUCOSE 123 151 144 147 -Continue levothyroxine 50 mcg daily ID: Acute Leukocytosis 2/2 reactionary vs PNA Recent Labs 03/13/254203/13/252327 WBC 16.35* 14.25* - Temp (24hrs), Av.8 F (37.1 C), Min:98.1 F (36.7 C), Max:99.9 F (37.7 C) - PRN Tylenol for T>100.4F - Most recent and positive cultures: Date Collected Source Result Date Finalized 03/05 Staph nasal swab MRSA negative 03/14 Staph nasal swab pending - Antiinfectives: Start Date Antiinfective Coverage Course Length Stop Date 03/14 Vancomycin 03/14 Ceftriaxone Heme/Onc: No Current Issues Recent Labs 03/12/25 0110 03/13/254203/13/252327 WBC 8.83 16.35* 14.25* RBC 3.74* 3.78* 3.58* HGB 12.4* 12.4* 11.7* HCT 36.8* 37.6* 36.6* PLATELET 184 219 215 PT 13.8 -- -- PTT 28.6 -- -- INR 1.1 -- -- - Goal plt >100, INR <1.4, Hgb >7 - OR EBL: minimal DVT prophylaxis: - SCDs Musc: No Current Issues - PT/OT consulted and following - Current Activity Order: AAT Fall Risk: - Assessed for patient fall risk and discussed safety measures during rounding. Social/Dispo: - Code status: Full Code - /: Medications reconciled - Discharge planning per PCRM/SW. Quality Self-Check Complexity. Hypomagnesemia - Continue to monitor and replete. Hypocalcemia - Continue to monitor and replete. Obesity, class I Body mass index is 30.2 kg/m . - Follow with PCP for dietary and lifestyle modifications. Hypothyroidism - Continue thyroid replacement. Other Reduced Mobility - continue PT/OT. Wound Documentation Wound Surgical 03/11/251524 Lateral;Right;Upper Flank (Active) Date First Assessed/Time First Assessed: 03/11/251524 Primary Wound Type: Surgical Present on Original Admission: No Incision Closure/Dressing: Dermabond;Primapore Wound Location Orientation: Lateral;Right;Upper Location: Flank Wound Other (Comment) 03/11/252129 Left;Posterior Ulnar (Active) Date First Assessed/Time First Assessed: 03/11/252129 Primary Wound Type: (c) Other (Comment) Present on Original Admission: No Wound Location Orientation: Left;Posterior Location: Ulnar Any conditions listed below are present on admission unless otherwise specified. . ICU Checklist: [x] Assess pain Presence of Pain: reports pain/discomfort Presence of Pain Score (Auto-calculated): 0 [x] Both SAT & SBT [x] Choice of analgesia/ sedation See neuro [x] Delirium [x] Early mobility PT/OT consulted?: Yes CURRENT AM-PAC Mobility Raw Score: 8 CURRENT AM-PAC Mobility Functional Limitation: 86.62% Impaired in Basic Mobility [x] Family Engagement Primary Emergency Contact: Idalia Lemons Last updated: [x] Get lines out Arterial line: inserted , (indication:) Lei: inserted 03/14, (indication:I/O management) Rectal tube: inserted , (indication:) Enteral access: inserted /, [ ] gastric; [ ] post-pyloric Central lines: Discussed with NCCU Attending, PAN Sheppard 03/14/25 12:58 PM Check the treatment team to find the assigned neurocritical care provider (resident, fellow, DATA ENTRY SUPERVISOR, or PA) or page/call the corresponding number below NCC1 (Beds [phone]): , pager #[phone] NCC2 (Beds [phone], 12 Meng, and overflow): , pager #[phone] Acute Physical Therapy Treatment Prior Gross Functional Mobility: independent, used device Current AM-PAC score(s): CURRENT AM-PAC Mobility Raw Score: 8 Based on the above AM-PAC score(s) and PT clinical judgment, patient is a good candidate for discharge to Inpatient Rehab Facility Supporting Factors (would benefit from skilled therapy services): Impaired functional status, Patient status is anticipated to be appropriate to tolerate inpatient rehab therapy requirements at time of discharge from acute care, Decreased strength, Impaired balance, Decreased endurance necessitating skilled therapy services, but able to tolerate therapy requirements for inpatient rehab, Impaired self-care abilities, Fall risk Mobility equipment available at home: front-wheeled walker, straight cane ADL equipment available at home: grab bars Equipment needed for discharge: to be determined Current therapy frequency recommendation in acute: PT Therapy Frequency: 6 times a week Activity Recommendations for outside of rehab session: kristofer [employer] Precautions and Weightbearing Status: Existing Precautions/Restrictions: fall, spinal Lines/Tubes/Drains (Rehab Status): Chest tube, Telemetry Patient Safety Communication Prior to Visit: Nursing Subjective: Patient supine in bed and agreeable to therapy. Pain: General Pain Documentation (Adult, OB, Peds) Presence of Pain: reports pain/discomfort Pain Location: flank, right DVPRS (Defense and Veterans Pain Rating Scale) DVPRS: Rest: 0- no pain DVPRS: Activity: 10- severe pain Objective/Observation: Vitals/Vitals Responses to Treatment: VSS O2 Device: nasal cannula Flow (L/min): 2 Cognition Overall Cognitive Status: Impaired Arousal/Alertness: Delayed responses to stimuli Orientation Level: Oriented to person, Oriented to time Extremity Assessments: See PT Evaluation flowsheet for Extremity Measurement updates. Skin and Edema: Balance: Sitting Balance Static Sitting-Level of Assistance: Moderate assistance Dynamic Sitting-Level of Assistance: Maximum assistance Skilled Rationale: Verbal cues, Positioning, Full extension to upright positioning/posture, Finding/maintaining midline positioning, Technique of activity Sitting Balance Skilled Intervention/Details: Educated for midline orientation and use of LUE on foot of bed to facilitate midline position with poor carry-over. Patient with poor postural awareness at EOB requiring frequent re-education and assist to maintain balance. Mobility Assessment/Intervention: Supine to Sit Mobility Nelson Level: Supine->Sit: maximum assist (25% patient effort) Bed Features/Set-up: Supine->Sit: Head of bed elevated, Use of bed rail Skilled Rationale: Verbal cues, Tactile cues, Sequencing, Hand placement, Technique of activity, Initiation and execution of task Skilled Intervention/Details: Supine->Sit: max cues for sequencing Sit to Supine Mobility Nelson Level: Sit->Supine: maximum assist (25% patient effort) Bed Features/Set-up: Sit->Supine: Flat Skilled Rationale: Verbal cues, Hand placement, Sequencing, Technique of activity, Initiation and execution of task Skilled Intervention/Details: Sit->Supine: max cues for sequencing Transfer Assessment/Intervention: Gait/Functional Mobility Assessment/Intervention: Stairs Assessment/Intervention: CURRENT [facility] Basic Mobility Inpatient Short Form Turning over in bed: 2 - A Lot of Assistance Moving from lying on back to sittin - A Lot of Assistance Moving to and from bed to chair: 1 - Total Assistance Sitting/standing from chair: 1 - Total Assistance Walk in hospital room: 1 - Total Assistance Climbing 3-5 steps with a railin - Total Assistance CURRENT [facility] Mobility Raw Score: [address] [facility] Mobility Functional Limitation: 86.62% Impaired in Basic Mobility Interventions: Assessment & Plan: Patient with no progress toward goals this date with poor postural awareness at EOB. Patient would benefit from continued PT to improve functional mobility and independence to allow for improved quality of life. Patient Instruction/Education this session: Learners: Patient, Spouse Education provided: Activity outside of therapy Plan for next session: progress bed mobility Acute PT Goals Plan of Care by Anmol Cox PT at 03/14/2025 8:18 AM Version 1 of 1 Problem: PT - General Goals Goal: Supine <-> Sit Transfers - Patient will perform supine to/from sit transfers with independence and without use of hospital bed features in order to improve functional mobility and safety. Outcome: Not Progressing PT treatment consisted of the following to progress towards the above goal(s): PT Evaluation and Treatment Time Therapeutic Activity Time Entry: 26 Treating Therapist: Anmol Cox PT Additional Details: PT Co-Eval/Treatment Information Co-evaluation/co-treatment performed?: No simultaneous skilled care performed PPE used during patient interaction: gloves Patient location at end of session: bed with head of bed elevated Alarms on at end of session: RN aware, none altered Needs in reach. Time In: 817 Time Out: 843 Total Visit Time: 26 minutes Total Treatment Time (skilled, billable minutes): 26 minutes Upon discontinuation of Acute Care Physical Therapy Services or patient discharge from the hospital this note represents the current Physical Therapy Discharge Summary. Pulmonary Consultation Daily Note Gracie Lemons was seen and examined today. Transferred to the ICU for q.1 hour neuro checks. Chest CT done overnight which demonstrated the chest tube outside the pleural space. Was removed radiation. Physical Exam Temp: [97.6 F (36.4 C)-99.9 F (37.7 C)] 98.3 F (36.8 C) Pulse (Heart Rate): [101-118] 111 Resp Rate: [18-33] 22 BP: (74-120)/(44-66) 120/59 O2 Sat (%): [90 %-100 %] 91 % Intake/Output Summary (Last 24 hours) at 03/14/2025 0814 Last data filed at 03/14/2025 0647 Gross per 24 hour Intake 1535.57 ml Output 1631 ml Net -95.43 ml GEN: well-appearing, NAD, obese. HEENT: normal conjunctivae, clear oropharynx, moist MM RESP: CTAB , no w/r/r, dullness in the right base with scattered fine crackles bilaterally, breathing comfortably on 2L NC. CV: RRR, normal S1 and S2, no r/g/m, 1+ LE edema GI: soft, NT, ND. MSK: no deformity. SKIN: warm, dry, no cyanosis. NEURO: alert, responds appropriately to questions, weak right arm Medications Ascorbic Acid 250 mg Oral Daily aspirin 81 mg Oral Daily azithromycin 500 mg Intravenous Q24H bisacodyl 10 mg Rectal Daily cefTRIAXone 2 g Intravenous Q24H Cyclobenzaprine 10 mg Oral TID donepezil 5 mg Oral QHS [Held by provider] enoxaparin 40 mg Subcutaneous Q24H Ergocalciferol 50,000 Units Oral Q7 days Ezetimibe 10 mg Oral QHS famotidine (PF) 20 mg Intravenous Q12H Or faMOTIdine 20 mg Oral Q12H ferrous sulfate 324 mg Oral Daily Gabapentin 300 mg Oral QHS Insulin lispro Subcutaneous 4x daily w/meals, HS Levothyroxine 50 mcg Oral Before BKF Lisinopril 20 mg Oral Daily Metoprolol 50 mg Oral BID Multi-Vitamins 1 tablet Oral Daily Nintedanib Esylate 150 mg Oral Q12H Nortriptyline 25 mg Oral QHS Pantoprazole 40 mg Oral Daily Polyethylene glycol 17 g Oral Daily Rosuvastatin 10 mg Oral Daily Senna 17.2 mg Oral Daily vitamin E 400 Units Oral Daily Laboratory Data: Lab Results Component Value Date WBC 14.25 (H) 03/13/2025 WBC 11.4 (H) 05/07/2013 HGB 11.7 (L) 03/13/2025 HGB 15.9 05/07/2013 HCT 36.6 (L) 03/13/2025 HCT 47.8 05/07/2013 HCT 34.0 (L) 04/12/2003 PLATELET 215 03/13/2025 PLATELET 282 05/07/2013 MCV 102.2 (H) 03/13/2025 MCV 93.2 05/07/2013 Lab Results Component Value Date SODIUM 138 03/13/2025 SODIUM 137 05/07/2013 SODIUM 135 07/15/2012 POTASSIUM 3.8 03/13/2025 POTASSIUM 3.7 05/07/2013 POTASSIUM 3.8 07/15/2012 POTASSIUM 4.60 04/12/2003 CHLORIDE 101 03/13/2025 CHLORIDE 103 05/07/2013 CHLORIDE 112 (H) 07/15/2012 CO2 27 03/13/2025 CO2 26 05/07/2013 CO2 14.4 02/24/2005 BUN 13 03/13/2025 BUN 14 05/07/2013 CREATSERUM 0.96 03/13/2025 CREATSERUM 1.30 05/07/2013 GLUCOSE 144 03/13/2025 GLUCOSE 151 03/13/2025 GLUCOSE 123 (H) 05/07/2013 GLUCOSE 134 (H) 07/20/2012 Sed rate is 75 CRP: 265 ntBNP 858 Imaging: CXR 03/13/25: Right thoracostomy tube is difficult to see. It is placed low lung the lateralright thorax and terminates in the right midlung. Increased small right effusion. Increased bilateral atelectasis. No pneumothorax. Stable cardiomediastinal silhouette. No interval bone findings. CT Chest 03/13/25 1. Small right hydropneumothorax. Complete atelectasis of the right lower lobe and significant partial atelectasis of the right upper and middle lobes do both to compressive atelectasis from the effusion as well as obstructive mucous plugging and postobstructive atelectasis. A right thoracostomy tube is outside the thoracic cavity terminating in the sixth rib osteotomy with a clearly layer of subpleural fat between the tube tip in the pleural effusion. The pneumothorax is loculated anteriorly and likely will not be seen on single view AP radiograph because of its location/positioning. 2. Segmental atelectatic changes in the left lung. 3. Small fluid collection along the right T7-T8 vertebral bodies with internal foci of gas. Small foci of gas are also seen in the adjacent right pleural effusion and thecal canal. Findings are all presumably postoperative given recent surgery on March 11, 2025. Assessment/Problems: Gracie Lemons is a 75 y.o. year old male with: Problem List[1] 1 .Fibrotic lung disease. Unclear etiology. Work up done in August with pulmonary Dr Rasmussen. Details not avaialbe. Was on prednisone x 3 months and then sterted on antifibrotic (nintendanib) ~ 1 month back. 2. Concern for volume overaload / pulmonary edema. Has LE edema, BNP elevated. 3. WBC is high, stress vs infection. Diffuse mucus plugging seen on chest CT scan. . 4. High inflammatory markers. Could trend but could be related to recent surgery, question of pneumonia with mucus plugging. Doubt there is enough evidence to suggest ILD flare. Recommendations: Consider holding nintedanib, given concern for delayed wound healing. Diuresis goal net negative 1L RT guided airway clearance as tolerated in this post surgical setting. Broaden antibiotics to vancomycin and cefepime. Send sputum for Gram stain and cultures. Bedside ultrasound did not reveal any easy pocket of pleural fluid in the right pleural space. Cannot pursue even diagnostic thoracentesis. Could consider re-evaluation by Radiology Discussed with the patients who was present at bedside. MARLO Vargas, PhD Pager: [phone] [1] Patient Active Problem List Diagnosis Lumbar radiculopathy Acquired spondylolisthesis Displacement of lumbar intervertebral disc without myelopathy Lumbar stenosis with neurogenic claudication Hypoxia Atelectasis Syncope Obesity: body mass index of 35.0-39.9 Thoracic spinal stenosis Aftercare following surgery NEUROSURGERY PROGRESS NOTE: 03/14/25 S: FAISAL, reporting RLE weakness O: PE: NAD AOx3 PERRL EOMI FS TM FCx4 5/5 BUE LLE 3/5 throughout RLE 2/5 throughout SILT Chest tube in place to LWS Temp: [97.6 F (36.4 C)-99.9 F (37.7 C)] 98.3 F (36.8 C) Pulse (Heart Rate): [101-118] 111 Resp Rate: [18-33] 22 BP: (74-120)/(44-66) 120/59 O2 Sat (%): [90 %-100 %] 91 % O2 Sat (%): 91 % (03/14 725) O2 Device: nasal cannula (03/14 725) Flow (L/min): 2 (03/14 0327) I/O last 3 completed shifts: In: 2654.3 [P.O.:250; I.V.:2404.3] Out: 1631 [Urine:1600; Other:31] ICP: No data recorded WBC/Hgb/Hct/Plts: 14.25/11.7/36.6/215 (03/138) Na/K+/Phos/Mg/Ca: 138/3.8/2.4/1.5/7.5 (03/13 2328) Bun/Creat/Cl/CO2/Glucose: 13/0.96/101/27/144 (03/13 2328) A/P: Gracie Lemons is a 75 y.o. male 3 Days Post-Op s/p 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 on 03/11/2025 - Resp status tenuous - neuro checks - AAAT ADAT - VTE ppx: SCDs, pharm ppx POD1 Barriers to discharge: [] Drains: hemovac to suction [] PO pain control: [] BM, bowel regimen (senna, miralax ) [x] Postop imaging CXR no PTX [] PT/OT rec: IPR [] Placement: precert/insurance pending Please page [phone]) with questions. Principal Problem: Aftercare following surgery Present on Admission: Aftercare following surgery Quality Self-Check Complexity. Hypomagnesemia - Continue to monitor and replete. Hypocalcemia - Continue to monitor and replete. Obesity, class I Body mass index is 30.2 kg/m . - Follow with PCP for dietary and lifestyle modifications. Hypothyroidism - Continue thyroid replacement. Other Reduced Mobility - continue PT/OT. Wound Documentation Wound Surgical 03/11/25 152 Lateral;Right;Upper Flank (Active) Date First Assessed/Time First Assessed: 03/11/251524 Primary Wound Type: Surgical Present on Original Admission: No Incision Closure/Dressing: Dermabond;Primapore Wound Location Orientation: Lateral;Right;Upper Location: Flank Wound Other (Comment) 03/11/252129 Left;Posterior Ulnar (Active) Date First Assessed/Time First Assessed: 03/11/252129 Primary Wound Type: (c) Other (Comment) Present on Original Admission: No Wound Location Orientation: Left;Posterior Location: Ulnar Any conditions listed below are present on admission unless otherwise specified. . 8b rm 816 TM We do not have a pager number or way to contact pulmonary to review CT for rm 816 - can we contact them during business hours? Thanks! TOOTIE Cardenas [phone] 8bsh rm 816 TM. In MRI now, tried to get CT done rosetta, but they have many traumas - may have to go later in shift. TOOTIE Cardenas [phone] Summary: MRI failed attempt Patient unable to lay flat for MRI without coughing and choking. Unsafe to proceed at this time. NEUROSURGERY PROGRESS NOTE: 03/13/25 S: FAISAL, reporting RLE weakness O: PE: NAD AOx3 PERRL EOMI FS TM FCx4 5/5 BUE LLE 4/5 throughout RLE 2/5 proximally, 4- DF/PF SILT Chest tube in place to LWS Temp: [97.2 F (36.2 C)-98.5 F (36.9 C)] 98.5 F (36.9 C) Pulse (Heart Rate): [93-123] 112 Resp Rate: [18-31] 18 BP: (110-135)/(60-70) 110/60 O2 Sat (%): [90 %-98 %] 96 % O2 Sat (%): 96 % (03/13 344) O2 Device: nasal cannula (03/13 344) I/O last 3 completed shifts: In: 1151 [P.O.:150; I.V.:1001] Out: 1339 [Urine:1225; Other:114] ICP: No data recorded WBC/Hgb/Hct/Plts: 16.35/12.4/37.6/219 (03/13 43) Na/K+/Phos/Mg/Ca: 137/3.9/2.2/1.4/7.6 (03/13 43) Bun/Creat/Cl/CO2/Glucose: 10/0.85/103/24/185 (03/13 43) A/P: Gracie Lemons is a 75 y.o. male 2 Days Post-Op s/p 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 on 03/11/2025 - neuro checks - AAAT ADAT - VTE ppx: SCDs, pharm ppx POD1 Barriers to discharge: [] Drains: hemovac to suction [] PO pain control: [] BM, bowel regimen (senna, miralax ) [x] Postop imaging CXR no PTX [] PT/OT rec: IPR [] Placement: precert/insurance pending Please page [phone]) with questions. Principal Problem: Aftercare following surgery Present on Admission: Aftercare following surgery Quality Self-Check Complexity. Hypomagnesemia - Continue to monitor and replete. Hypocalcemia - Continue to monitor and replete. Obesity, class I Body mass index is 30.2 kg/m . - Follow with PCP for dietary and lifestyle modifications. Hypothyroidism - Continue thyroid replacement. Other Reduced Mobility - continue PT/OT. Wound Documentation Wound Surgical 03/11/251524 Lateral;Right;Upper Flank (Active) Date First Assessed/Time First Assessed: 03/11/251524 Primary Wound Type: Surgical Present on Original Admission: No Incision Closure/Dressing: Dermabond;Primapore Wound Location Orientation: Lateral;Right;Upper Location: Flank Wound Other (Comment) 03/11/252129 Left;Posterior Ulnar (Active) Date First Assessed/Time First Assessed: 03/11/252129 Primary Wound Type: (c) Other (Comment) Present on Original Admission: No Wound Location Orientation: Left;Posterior Location: Ulnar Any conditions listed below are present on admission unless otherwise specified. . Acute Occupational Therapy Evaluation Prior Gross Functional Mobility: independent, used device Current AM-PAC score(s): CURRENT AM-PAC Activity Raw Score: 14 Based on the above AM-PAC score(s) and OT clinical judgment, discharge destination recommendation is: Inpatient Rehab Facility Supporting Factors (would benefit from skilled therapy services): Patient status is anticipated to be appropriate to tolerate inpatient rehab therapy requirements at time of discharge from acute care, Impaired functional status, Decreased strength, Impaired balance, Decreased endurance, Impaired self-care abilities, Impaired cognitive status, Assistance needed with functional mobility, Fall risk Mobility equipment available at home: front-wheeled walker, straight cane ADL equipment available at home: grab bars Equipment recommendations for discharge: wheelchair, bedside commode, bathing equipment, dressing equipment, toileting equipment Equipment issued: Current therapy frequency recommendation(s) in acute: 5 times a week Activity Recommendations for outside of rehab session: 2 person stand pivot transfer to the right to bedside chair/commode with gait belt. Precautions and Weightbearing Status: OT Existing Precautions/Restrictions: fall, cardiac, spinal, supplemental oxygen Lines/Tubes/Drains (Rehab Status): Urinary catheter, Telemetry, Chest tube Patient Safety Communication Prior to Visit: Nursing Subjective: Pt reported, My legs feel really weak. Pain: General Pain Documentation (Adult, OB, Peds) Presence of Pain: reports pain/discomfort Pain Location: back, chest, rib cage DVPRS (Defense and Veterans Pain Rating Scale) DVPRS: Rest: 6- moderate pain DVPRS: Activity: 6- moderate pain Home Setting Residence: House Lives With: spouse Patient receives help from : none Patient reported support for discharge plannin hour supervision, 24 hour physical assistance First floor setup: bedroom, walk-in shower Number of stairs to enter home: 3 Number of stairs in home: 0 Stair Railings at Home: entry - with rail Mobility Equipment Available: front-wheeled walker, straight cane ADL Equipment Available: [employer] Home Environment Details: Pt reports having a left AFO due to chronic left foot drop x 12 years, but does not utilize. Previous Level of Function Gross Functional Mobility: independent, used device Assistive Device: (straight cane vs WW) Prior level ADL Overview: Independent with all ADLs Dominant Hand: Right Bed Mobility: independent Transfers: independent Stairs: independent, used device Ambulation: modified independent with home Prior Level of Function Details: Pt spouse completing most IADLs recently. Limited by LE weakness with 5 falls or more in the last 3 months Vocation: retired IADL History IADLs: needs assist Objective/Observation: Vitals/Vitals Responses to Treatment: Pt endorsed mild dizziness upon sitting EOB, but reported relief with static seated rest. BP monitored and 123/77 and then 126/64 after a few minutes. RN notified/aware. O2 Device: nasal cannula Flow (L/min): 2 Vision Screen Currently wearing corrective lenses: No, Reading only Visual Impairments Observed?: No Speech Speech: no gross deficits noted Hearing Hearing: hard of hearing (Mild.) Cognition Overall Cognitive Status: (At risk) Arousal/Alertness: Appropriate responses to stimuli Orientation Level: Oriented X4 Following Commands: Follows multistep commands with increased time, Follows multistep commands with repetition Safety Judgment: Decreased awareness of need for assistance, Decreased awareness of need for safety Awareness of Errors: Assistance required to identify errors made, Assistance required to correct errors made Deficits: Decreased awareness of deficits Attention Span: Appears intact Memory: Appears intact Problem Solving: Assistance required to identify errors made, Assistance required to generate solutions, Assistance required to implement solutions Cognition Comments: Mildly reduced insight into deficits/safety awareness. ADLs: ADL Anticipated Performance (ADLs not directly observed this session): Eating, Grooming, Bathing, UE Dressing, LE Dressing, Toileting Eating Assistance: Independent Eating Location: chair Grooming Assistance: Minimal Grooming Location: seated in chair Bathing Assistance: Maximal Bathing Location: seated in chair UE Dressing Assistance: Minimal UE Dressing Location: seated in chair LE Dressing Assistance: Total LE Dressing Location: seated in chair, standing Toilet Assistance: Total Toileting Location: bedside commode Extremity Assessments: RUE Assessment RUE Assessment: AROM Impaired, Strength Impaired, Tone WFL, PROM WFL Right UE Assessment Details: Pt reports chronic limitations in the right UE for the past few weeks/months after a fall/injury (no restrictions) (receiving outpatient therapy services, as a result); Strong grasp strength. RUE AROM (degrees) R Shoulder Flexion 0-170: 20 Degrees R Shoulder ABduction 0-160/180: 20 Degrees R Elbow Flexion 0-135-150: (WFL) R Elbow Extension 0-135-150: (WFL) RUE Strength R Shoulder Flexion: 2-/5 R Shoulder ABduction: 2-/5 R Elbow Flexion: 4/5 R Elbow Extension: 4/5 LUE Assessment LUE Assessment: Within Functional Limits Left UE Assessment Details: About 4/5 grossly; Strong grasp strength. Balance: Sitting Balance Static Sitting-Level of Assistance: Contact guard Dynamic Sitting-Level of Assistance: Minimum assistance Sitting Balance Skilled Intervention/Details: Seated EOB for about 6-8 minutes, mostly requiring cues for safety and with mild intermittent retropulsive lean. Standing Balance Static Standing-Level of Assistance: Moderate assistance, 2-person assist Dynamic Standing-Level of Assistance: Maximum assistance, 2-person assist Standing Balance Skilled Intervention/Details: Standing for about 1-2 minutes (x 2 trials) while completing functional transfers, mostly requiring cues for safety and with initial hip extension, mild retropulsive lean, and kyphotic posture. Neuro: Sensation Overall Sensation: Intact Fine Motor Coordination Left Hand, Finger To Nose: normal performance Right Hand, Finger To Nose: severe impairment Left Hand Thumb/Finger Opposition Skills: normal performance Right Hand Thumb/Finger Opposition Skills: normal performance Left Hand, Diadochokinesis Skills: normal performance Right Hand, Diadochokinesis Skills: normal performance Skin and Edema: Skin Integrity Skin Integrity Description: WFL (Visible areas.) Edema Edema: none noted Mobility Assessment: Supine to Sit Mobility Nelson Level: Supine->Sit: maximum assist (25% patient effort) Physical Assist: Supine->Sit: 2 person assist Bed Features/Set-up: Supine->Sit: Head of bed elevated, Use of bed rail Skilled Rationale: Cues for increased safety, Initiation and execution of task, Technique of activity, Full extension to upright positioning/posture, Facilitate anterior shift, Tactile cues, Verbal cues, Hand placement, Sequencing, Positioning Skilled Intervention/Details: Supine->Sit: Cues for sequencing/safety/use of log-roll technique, as well as assisting with upper trunk support, LEs, and aligning hips to midline. Transfer Assessment: Sit to Stand Transfer Nelson Level: Sit->Stand: moderate assist (50% patient effort) (x 2 trials from EOB.) Physical Assist: Sit->Stand: 2 person assist Assistive Device: Sit->Stand: gait belt, arm in arm Skilled Rationale: Cues for increased safety, Initiation and execution of task, Technique of activity, Upright gaze/neck extension, Full extension to upright positioning/posture, Facilitate anterior shift, Ischial assist, Tactile cues, Verbal cues, Hand placement, Sequencing, Positioning Skilled Intervention/Details: Sit->Stand: Cues for sequencing/safety, as well as assisting with initial hip extension, mild retropulsive lean, and kyphotic posture. Stand to Sit Transfer Nelson Level: Stand->Sit: moderate assist (50% patient effort) Physical Assist: Stand->Sit: 2 person assist Assistive Device: Stand->Sit: gait belt, arm in arm Skilled Rationale: Cues for increased safety, Initiation and execution of task, Technique of activity, Controlled descent for sitting, Ischial assist, Tactile cues, Verbal cues, Hand placement, Sequencing, Positioning Bed-Chair Transfer Nelson Level: Bed<->Chair: maximum assist (25% patient effort) (EOB>Bedside chair.) Physical Assist: Bed<->Chair: 2 person assist Assistive Device: Bed<->Chair: gait belt, arm in arm (Non-skid socks.) Skilled Rationale: Cues for increased safety, Initiation and execution of task, Technique of activity, Upright gaze/neck extension, Controlled descent for sitting, Facilitate anterior shift, Full extension to upright positioning/posture, Ischial assist, Tactile cues, Verbal cues, Hand placement, Sequencing, Positioning Skilled Intervention/Details: Bed<->Chair: Cues for sequencing/safety, as well as assisting with maintenance of upright posture while pivoting to the left to align hips to chair prior to initiation of descent. Despite attempts, pt unable to weight shift and laterally step this date, relying on max assistance x 2 to pivot. Would benefit from completing towards the right in the future, as pt reports increased left LE than right LE weakness. Outcome Score(s): CURRENT [facility] Daily Activity Inpatient Short Form Putting on/Taking Off Lower Body Clothin - Total Assistance Bathin - A Lot of Assistance Toiletin - Total Assistance Putting on/Taking Off Upper Body Clothin - A Little Assistance Groomin - A Little Assistance Eatin - No Assistance CURRENT [facility] Activity Raw Score: [address] [facility] Activity Functional Limitation/Modifier: 59.67% Currently Impaired in Daily Activity - CK Interventions: Intervention 1 Intervention Name: Therapist provided education on spinal precautions, verbalizing understanding and requiring cues to adhere throughout session. Assessment & Plan: Patient was admitted for s/p 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 secondary to thoracic disc herniation/myelopathy and seen for therapy evaluation related to impairments in endurance/activity tolerance, bed mobility, dynamic seated balance, standing balance, functional transfers/mobility, right UE ROM/strength/coordination, and higher-level cognition limiting pt's safe/independent ADL/IADL performance this date. Exam findings include impairments in: balance, coordination, endurance, motor function, muscle performance, pain, posture, ROM, strength, transfers. These impairments contribute to occupational performance limitations including bathing, dressing, grooming, toileting, functional mobility, ADL transfers, leisure integration, community integration, home management tasks, shopping/errands, driving/transportation. The following factors impact the plan of care: N/A Psychosocial Factors Positive indicators for performance: Adequate support system, Positive interpersonal relationships, Positive coping mechanisms Possible barriers for performance: Not active or linked with community programs Patient will benefit from skilled occupational therapy to address these impairments, occupational performance limitations, and participation restrictions. Patient's rehab potential is: good. Planned Therapy Interventions (OT Eval): ADL retraining, balance training, bed mobility training, cognitive training, fine motor coordination training, functional activity tolerance, motor coordination training, ROM (range of motion), strengthening, stretching, transfer training Patient Instruction/Education this session: Learners: Patient Education provided: Balance training, Bed mobility, Discharge recommendations, Plan of care, Positioning, Role of this discipline, Safety, Activity outside of therapy, Fall precautions, Functional transfers, Pain management, Precautions/weight bearing status Teaching method: Verbal Education/Instruction Learner response: Needs review Learning preferences: Auditory Learning considerations: Cognition Plan for next session: Therapist to address further standing balance/activity tolerance/functional transfer performance, right UE strengthening, and ADL engagement with spinal precautions and use of AE, as needed. Acute OT Goals Plan of Care by Kelli Bermudez OT at 03/12/2025 7:37 AM Version 1 of 1 Problem: OT - ADLs Goal: Lower Body Dressing - Patient will complete lower body dressing tasks with minimal assistance using adaptive equipment/compensatory strategies as needed for improved ability to complete self-care activities. Outcome: Ongoing Goal: Bathing - Patient will perform full body bathing routine with minimal assistance and use of AE, as needed, while seated for improved ability to complete self-care activities Outcome: Ongoing Problem: OT - Transfers Goal: Transfers Toilet/ Bedside Commode - Patient will transfer to/from toilet/bedside commode with minimal assistance for improved ability to safely complete ADLs. Outcome: Ongoing Problem: OT - Balance Goal: Balance - Standing - Patient will perform 4-5 minutes of functional task in standing with minimal assistance and fair balance to promote safety and improved balance required for self-care activities. Outcome: Ongoing Problem: OT - Strength/ROM Goal: Strength/ROM ADL Participation - Patient will participate in UE exercise program with independence to prevent deconditioning while in hospital and to max UE ROM/Coordination/strength for ADLs. Outcome: Ongoing Problem: OT - Other Goal: Precaution Adherence - Patient will demonstrate 100% adherence to precautions during all ADLs and functional transfers to promote safety during daily routine. Outcome: Ongoing OT treatment consisted of the following to work and progress towards the above goal(s): OT Evaluation and Treatment Time OT Evaluation (Moderate) Time Entry: 13 Evaluating Therapist: Kelli Bermudez OT Additional Details: OT Co-Eval/Treatment Information Co-evaluation/co-treatment performed?: Yes, simultaneous billable skilled care was necessary due to medical complexity and functional deficits Other discipline: PT Rationale for need to co-eval/treat: cognition, coordination, postural control OT Evaluation Complexity Occupational Profile and Client History: Moderate - expanded history Assessment of Occupational Performance: Moderate (3-5 performance deficits) Clinical Decision/Performance Deficits: Moderate (detailed assessments w/several treatment options) Time In: 735 Time Out: 748 Total Visit Time: 13 minutes Total Treatment Time (skilled, billable minutes): 13 minutes PPE used during patient interaction: gloves Patient location at end of session: chair Alarms on at end of session: RN aware, none Needs in reach. Upon discontinuation of Acute Care Occupational Therapy Services or patient discharge from the hospital this note represents the current Occupational Therapy Discharge Summary. Acute Physical Therapy Evaluation Prior Gross Functional Mobility: independent, used device Current AM-PAC score(s): CURRENT AM-PAC Mobility Raw Score: 8 Based on the above AM-PAC score(s) and PT clinical judgment, patient is a good candidate for discharge to Inpatient Rehab Facility Supporting Factors (would benefit from skilled therapy services): Impaired functional status, Patient status is anticipated to be appropriate to tolerate inpatient rehab therapy requirements at time of discharge from acute care, Decreased strength, Impaired balance, Decreased endurance necessitating skilled therapy services, but able to tolerate therapy requirements for inpatient rehab, Impaired self-care abilities, Fall risk Mobility equipment available at home: front-wheeled walker, straight cane ADL equipment available at home: grab bars Equipment needed for discharge: to be determined Current therapy frequency recommendation in acute: PT Therapy Frequency: 6 times a week Activity Recommendations for outside of rehab session: x2 person bed to chair to right Precautions and Weightbearing Status: Existing Precautions/Restrictions: fall, spinal Lines/Tubes/Drains (Rehab Status): Chest tube Patient Safety Communication Prior to Visit: Nursing Subjective: Im really stiff over my chest and ribs Pain: General Pain Documentation (Adult, OB, Peds) Presence of Pain: reports pain/discomfort Pain Location: incisional DVPRS (Defense and Veterans Pain Rating Scale) DVPRS: Rest: 6- moderate pain Home Setting Residence: House Lives With: spouse Patient receives help from : none Patient reported support for discharge plannin hour supervision, 24 hour physical assistance First floor setup: bedroom, walk-in shower Number of stairs to enter home: 3 Number of stairs in home: 0 Stair Railings at Home: entry - with rail Mobility Equipment Available: front-wheeled walker, straight cane ADL Equipment Available: grab bars Previous Level of Function Gross Functional Mobility: independent, used device Assistive Device: (straight cane vs WW) Prior level ADL Overview: Independent with all ADLs Dominant Hand: Right Bed Mobility: independent Transfers: independent Stairs: independent, used device Ambulation: modified independent with home Prior Level of Function Details: Pt spouse completing most IADLs recently. Limited by LE weakness with 5 falls or more in the last 3 months Objective/Observation: Vitals/Vitals Responses to Treatment: Tolerates session well Cognition Overall Cognitive Status: Within Functional Limits Arousal/Alertness: Appropriate responses to stimuli Orientation Level: Oriented X4 Following Commands: Follows all commands and directions without difficulty Safety Judgment: Good awareness of safety precautions Extremity Assessments: RLE Assessment Right LE Assessment Details: Grossly 4/5 LLE Assessment Left LE Assessment Details: Grossly 3+/5, 2/5 DF Sensation Overall Sensation: Intact Mobility Assessment: Supine to Sit Mobility Nelson Level: Supine->Sit: maximum assist (25% patient effort) Physical Assist: Supine->Sit: 2 person assist Bed Features/Set-up: Supine->Sit: Head of bed elevated, Use of bed rail Skilled Rationale: Positioning, Sequencing, Hand placement, Verbal cues, Tactile cues, Upright gaze/neck extension, Technique of activity Skilled Intervention/Details: Supine->Sit: Education on spinal precautions and use of log roll for bed mobility. Education on pain mgmt with pillow/breathing strategies. Limited by pain Balance: Sitting Balance Static Sitting-Level of Assistance: Contact guard Dynamic Sitting-Level of Assistance: Contact guard Skilled Rationale: Verbal cues, Positioning Sitting Balance Skilled Intervention/Details: initially with posterior lean but improves with cues. Tolerates sitting for roughly 12 minutes Standing Balance Static Standing-Level of Assistance: Moderate assistance, 2-person assist Dynamic Standing-Level of Assistance: Maximum assistance, 2-person assist Standing-Balance Support: Arm in arm Skilled Rationale: Positioning, Sequencing, Hand placement, Verbal cues, Tactile cues Standing Balance Skilled Intervention/Details: unable to improve standing stability with cues or interventions Transfer Assessment: Sit to Stand Transfer Nelson Level: Sit->Stand: moderate assist (50% patient effort) Physical Assist: Sit->Stand: 2 person assist Assistive Device: Sit->Stand: arm in arm Skilled Rationale: Positioning, Hand placement, Sequencing, Verbal cues, Tactile cues, Technique of activity Skilled Intervention/Details: Sit->Stand: x2 completed this session Bed-Chair Transfer Nelson Level: Bed<->Chair: maximum assist (25% patient effort) Physical Assist: Bed<->Chair: 2 person assist Assistive Device: Bed<->Chair: arm in arm Skilled Rationale: Positioning, Sequencing, Hand placement, Verbal cues, Tactile cues Skilled Intervention/Details: Bed<->Chair: Limited by weakness and pain. Unable to improve and needs assist with L LE shuffle steps to chair Gait/Functional Mobility: Stairs: Outcome Score(s): CURRENT [facility] Basic Mobility Inpatient Short Form Turning over in bed: 2 - A Lot of Assistance Moving from lying on back to sittin - Total Assistance Moving to and from bed to chair: 1 - Total Assistance Sitting/standing from chair: 2 - A Lot of Assistance Walk in hospital room: 1 - Total Assistance Climbing 3-5 steps with a railin - Total Assistance CURRENT [facility] Mobility Raw Score: [address] [facility] Mobility Functional Limitation: 86.62% Impaired in Basic Mobility Assessment & Plan: Patient was admitted for T7-T8 discectomy and seen for therapy evaluation related to post op pain impact on mobility. Exam findings include impairments in: Strength, Balance, Posture, Transfers, Gait/Locomotion, Aerobic capacity/endurance. These impairments contribute to functional limitations including Increased fall risk, Difficulty ambulating on uneven/dynamic surfaces, Decreased ambulation distance/endurance, Limited standing tolerance, Limited sitting tolerance, Difficulty with bed mobility, Decreased functional mobility. Current clinical presentation is Evolving - changing/inconsistent clinical characteristics (Moderate). Patient history factors impacting Plan Of Care include Past Medical History[1] . Patient will benefit from skilled physical therapy to address these impairments, functional limitations, and participation restrictions and has excellent rehab potential to achieve therapy goals. Planned Therapy Interventions: balance training, bed mobility training, endurance, functional activity tolerance, gait training, strengthening, transfer training Patient Instruction/Education this session: Learners: Patient Education provided: Functional transfers, Fall precautions, Pain management, Positioning, Role of this discipline Teaching method: Verbal Education/Instruction Learner response: Applies knowledge, States/Identifies/Teaches back Learning considerations: No barriers/ready to learn Plan for next session: work on OOB Acute PT Goals Plan of Care by John Torrez PT at 03/12/2025 7:20 AM Version 1 of 1 Problem: PT - General Goals Goal: Supine <-> Sit Transfers - Patient will perform supine to/from sit transfers with independence and without use of hospital bed features in order to improve functional mobility and safety. Outcome: Ongoing Goal: Sit <-> Stand Transfers - Patient will perform sit to/from stand transfers with contact guard assistance and wit AD in order to improve functional mobility and safety. Outcome: Ongoing Goal: Stand/Squat Pivot Transfers - Patient will perform stand pivot transfer to/from bed/chair/commode with modified independence and front-wheeled walker in order to improve functional mobility and safety. Outcome: Ongoing Goal: Ambulation - Patient will ambulate 25 feet with contact guard assistance and front-wheeled walker to improve ability to safely navigate home and community. Outcome: Ongoing Goal: Stairs - Patient will ascend/descend 3 stairs with modified independence, straight cane, and single railing(s) to improve ability to safely navigate home and community. Outcome: Ongoing PT treatment consisted of the following to progress towards the above goal(s): PT Evaluation and Treatment Time PT Evaluation (Moderate) Time Entry: 20 Therapeutic Activity Time Entry: 12 Evaluating Therapist: John Torrez PT Additional Details: PT Co-Eval/Treatment Information Co-evaluation/co-treatment performed?: Yes, simultaneous billable skilled care was necessary due to medical complexity and functional deficits Other discipline: OT Rationale for need to co-eval/treat: postural control Evaluation Complexity Components History: High (3 personal factors and/or comorbidities) Body Systems Review: Moderate (Addressing a total of 3 or more elements) Clinical Presentation: Evolving - changing/inconsistent clinical characteristics (Moderate) Clinical Decision Making Complexity: Moderate Time In: 738 Time Out: 0811 Total Visit Time: 32 minutes Total Treatment Time (skilled, billable minutes): 32 minutes PPE used during patient interaction: gloves Patient location at end of session: chair Alarms on at end of session: none Needs in reach. Upon discontinuation of Acute Care Physical Therapy Services or patient discharge from the hospital this note represents the current Physical Therapy Discharge Summary. [1] Past Medical History: Diagnosis Date Anemia BPH (benign prostatic hyperplasia) Brain abscess CAD (coronary artery disease) Colon polyp Diabetes mellitus GERD (gastroesophageal reflux disease) High cholesterol HTN (hypertension) Nephrolithiasis RAFAEL (obstructive sleep apnea) Primary adrenal deficiency Stroke Stroke-like episode x3 Syncope Thalamic infarction TIA (transient ischemic attack) NEUROSURGERY PROGRESS NOTE: 03/12/25 S: NAEON, tolerating PO, not OOB yet. No SOB O: PE: NAD AOx3 PERRL EOMI FS TM FCx4 5/5 BUE 5/5 BLE except HF 4/5 SILT Temp: [97.7 F (36.5 C)-98.2 F (36.8 C)] 98.2 F (36.8 C) Pulse (Heart Rate): [71-98] 98 Resp Rate: [13-25] 22 BP: (130-170)/(64-93) 132/70 O2 Sat (%): [95 %-100 %] 97 % Weight: [82.3 kg (181 lb 8 oz)] 82.3 kg (181 lb 8 oz) O2 Sat (%): 97 % (03/12 0400) O2 Device: room air (03/12 0100) Flow (L/min): 2 (03/11 2131) I/O last 3 completed shifts: In: 1750 [I.V.:1650; IV Piggyback:100] Out: 1884 [Urine:1800; Other:35] ICP: No data recorded WBC/Hgb/Hct/Plts: 8.83/12.4/36.8/184 (03/12 110) Na/K+/Phos/Mg/Ca: 139/4.3/1.9/1.3/7.7 (03/12 110) Bun/Creat/Cl/CO2/Glucose: 6/0.78/103/25/134 (03/12 110) Ptt/Pt/Inr: 28.6/13.8/1.1 (03/12 110) A/P: Gracie Lemons is a 75 y.o. male 1 Day Post-Op s/p 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 on 03/11/2025 - neuro checks - AAAT ADAT - VTE ppx: SCDs, pharm ppx POD1 Barriers to discharge: [] Drains: hemovac to suction [] PO pain control: [] BM, bowel regimen (senna, miralax ) [x] Postop imaging CXR no PTX [] PT/OT rec: pending [] Placement: precert/insurance pending Please page [phone] ([phone]) with questions. Principal Problem: Aftercare following surgery Present on Admission: Aftercare following surgery Quality Self-Check Complexity. Hypomagnesemia - Continue to monitor and replete. Hypocalcemia - Continue to monitor and replete. Hypophosphatemia - Continue to monitor and replete. Obesity, class I Body mass index is 30.2 kg/m . - Follow with PCP for dietary and lifestyle modifications. Hypothyroidism - Continue thyroid replacement. Wound Documentation Wound Surgical 03/11/25 152 Lateral;Right;Upper Flank (Active) Date First Assessed/Time First Assessed: 03/11/251524 Primary Wound Type: Surgical Present on Original Admission: No Incision Closure/Dressing: Dermabond;Primapore Wound Location Orientation: Lateral;Right;Upper Location: Flank Wound Other (Comment) 03/11/252129 Left;Posterior Ulnar (Active) Date First Assessed/Time First Assessed: 03/11/252129 Primary Wound Type: (c) Other (Comment) Present on Original Admission: No Wound Location Orientation: Left;Posterior Location: Ulnar Any conditions listed below are present on admission unless otherwise specified. . documented in this encounter [facility] 03-19-2025 Hospital Discharge instructions Galina Orlando, MIXER MACHINE FEEDER-HOTEL OR MOTEL MANAGER - 03/19/2025 3:09 PM EDT Please follow-up with your local finisher hand within 2-4 weeks of discharge. Scheduled per If unable to attend staple removal appt, please contact office for orders for staple removal at facility. Staple removal should happen 14 days post-op (03/25/2025). R lateral T7-8 discectomy Slowly progress to performing normal daily activities. Lifting restrictions: < 10lbs for the first 3 months. Avoid exercise that will cause you to sweat until incision is completely healed Rest often and take short walks. Avoid curbs or uneven terrain Avoid bending at the waist or twisting movements You may climb stairs slowly and using hand rails No back exercises until cleared by your doctor It is normal for your energy level and sleep patterns to change after surgery. These things slowly return to normal as you start your usual activities. Get extra sleep at night and take naps during the day while you heal. Remember, everyone s recovery is different, so don t get discouraged. Do not lie down or sit for more than 2 to 3 hours, unless sleeping at night. Do not drive or operative power tools or machinery while taking pain medication that can cause drowsiness. Avoid all tub baths, hot tubs and swimming pools until your surgeon has given approval to soak the incision in water. Your surgeon will instruct you when it is safe to return to work. As you recover from your surgery, you should experience progressive improvement in your preoperative pain. It is not unusual to feel some pain, numbness, tightness, burning or other funny feelings for a while following your operation. Usually these sensations will lessen with time. Numbness can last for weeks to months Incision Care: Check your incision every day for redness or drainage. It is normal to have some bruising, swelling or tenderness around the incision. If you were told to keep your wound covered, the dressing needs to be changed every day, or as needed, with Medipore island dressing provided to you at discharge. NEVER leave a wet or dirty dressing on your incision. If your incision is damp or dirty it can delay healing and lead to infection. Do not scratch or pick at the incision as it heals. Protect your incision by: Cleaning the area around the wound and putting on a new dressing Taking a shower if it has been 3 or more days after surgery Do not take a tub bath or submerge your incision under water Dry the wound completely Do not apply any of these products to the wound unless told to do so by your surgeon: lotions, creams, ointments (such as Neosporin), alcohol, hydrogen peroxide, powder, or sunscreen Protect your wound from sun exposure. Wear loose fitting clothes and materials that do not rub the skin around the incision. Avoid clothes with tight elastic waist bands. Tobacco use delays healing. If you need help with quitting tobacco, please talk with your doctor. Showering: For the first 2 days or 48 hours after surgery, do sponge baths. Avoid getting the incision and dressing wet. For example, if you had your surgery on Saturday, do only sponge baths until Saturday. Your incision needs to stay dry and covered for 2 days following surgery. Beginning the third day after surgery: When showering, use a mild soap to gently clean the entire area. Rinse well with water. When drying off, use a clean towel. Very gently pat the wound dry. Do not rub it with a towel. It is okay to thel the wound air dry. Staple/Suture Removal: Your incision(s) may have been closed with bernice or sutures. If so, they will need to remain in place for at least 14 days. These will be removed at your outpatient follow up in approximately 2 weeks If you had a same day surgery and need to have bernice or sutures removed, please call the office at [phone] to schedule. Dermabond: Your incision(s) may have been closed with a surgical glue called Dermabond. This is a clear transparent skin closure like glue. It will remain in place for 10-14 days and wear off by itself. Keep the incision Clean and Dry. Leave the incision open to air. No further care is needed unless you have a problem. Steri-Strips: Covering your drain site(s) are white strips called steri-strips. Your steri-strips should remain dry and in place for 7-10 days after surgery. It is OK if your steri-strips fall off after 48 hours. If your steri-strips begin to loosen and curl, you may trim them. If your steri-strips do not come off in 7-10 days, remove them gently. No further care is needed unless you have a problem Pain Control Much of the pain after back surgery is from the muscles that were moved during your surgery. Use the muscle relaxant medication you were prescribed after your surgery. If you were not given a muscle relaxant upon discharge please call the office. ?Avoid remaining in the same position for long periods, this causes your muscles to tighten. ?While it may be painful to change position, get up and walk short distances multiple times a day to keep your muscles loose. Use hot or cold packs to improve your pain: Use small bags of ice wrapped in a clean towel or pillowcase or a bag of frozen peas wrapped in a pillowcase. Apply to your incision for 15-20 minutes followed by at least a 30 minute rest period. After 48 hours from your surgical time, if you find cold packs don't help, you can use warm packs (see rice sock information below wrapped in a clean towel or pillowcase on either side of your incision applied for 15-30 minutes. Do not put the warm pack directly over your incision. Medication Management: Pain Medication: A prescription for pain medication is typically sent home with you. Narcotic pain medicine can cause constipation. Be sure to take stool softeners or laxatives while you are taking narcotic pain medicine. Eat plenty of fruits, vegetables, juices, and drink 6-8 glasses of water each day. Be sure to take your pain medicine with food to avoid nausea. Do not drink any alcoholic beverages while taking narcotics and/or until approved by your surgeon. Do not drive after taking prescription pain medicine as it can make you drowsy. If this medicine is too strong, or no longer necessary, you may take: Tylenol Extra-strength/Acetaminophen, 2 tablets every 4-6 hours as needed for mild pain. DO NOT TAKE MORE THAN 4000MG PER DAY. Refills: Pain medication is typically refilled by your neurosurgeon for a short time following surgery, typically a 6-8 week period. Please call their office for refills . Pain med refills that fall on a weekend need to be called in to our office by noon the Saturday before. Please provide the neurosurgery office a minimum of 24 hours to refill your prescriptions. If your pain continues for longer than typical you will be referred to your primary care physician (or pain management physician if you have one) for ongoing pain management. Anti-Inflammatories: Unless approved by your surgeon, do not take any non-steroidal anti-inflammatory drugs, called NSAIDs. If you had a microdiskectomy or laminectomy only (no fusion), you may likely be able to resume these medications 48 hours following surgery. These medicines include: Ibuprofen (Motrin or Advil) Naprosyn (Naproxen or Aleve) Arthritis medications such as Celebrex following surgery. Meloxicam (Mobic) Blood Thinners: If you are taking aspirin, clopidogrel (Plavix), warfarin (Coumadin) or other blood thinners, you must talk to your surgeon about when to restart these medicines. Stool Softener/Laxatives: Constipation is common when having pain or when taking medications for pain. As long as you are taking narcotic pain medication, you should also be taking stool softners. These are available without a prescription. Senna-S is recommended- 1 or 2 tablets twice a day. Additionally a laxative may be needed if you are not having daily bowel movements. Depending on your preference you can use:Dulcolax pills, or a bulk forming laxative that you drink- such as Miralax, rectal suppositories (Dulcolax) or a Fleets Enema. Diet: You may resume your home diet. Add protein to your diet to promote surgical wound healing. You may purchase protein supplements [id number]. It is important to get enough fluid to stay hydrated to prevent dizziness and falling. If you are diabetic, continue to monitor your blood glucose levels. Tight glucose control is important for optimal wound healing. When to call your surgeon's office: If you have one or more of these signs, call your surgeon s office ([phone]): Temperature of 100.4 degrees Fahrenheit or greater (38 degrees Celsius) Drainage from your incision Skin around the incision becomes red, warm, swollen or painful Leg swelling, calf tenderness or pain. When to go to the Emergency Department: If you have any of these problems go to the nearest emergency department or call 911 right away: New or worse signs of weakness, numbness or inability to move an arm or leg. Problems with balance or walking. This may be only on one side of the body. Nausea, vomiting or diarrhea along with swelling of the stomach or abdomen. Problems with loss of bladder or bowel control, or inability to urinaty with feeling of pain in the lower abdomen Breathing problems Chest pain (including chest pressure or tightness) Redness, swelling and/or pain in both of your legs Change in the temperature of your leg(s) Neurosurgery Follow Up: Locations: (1) [facility] [address], 2nd Floor, [facility], [address] (2) [facility]: [address] [place] [address], [address]th Floor, [place] [address] (3) [facility] [address] [facility] [address] (4) [address] 3rd Floor, [facility] [address] Neurosurgery Office Neurosurgery Office Contact information: You may call your neurosurgeon s office Saturday through Saturday between 8:30am and 4:30pm if you have questions [phone]. The outpatient nurse may also be available to answer questions at that time. For after hours or the weekend, you may call the office which will take you to the answering service. FACILITY INSTRUCTIONS: ?Standard admission orders ?Vital signs q shift ?Assist to turn every 2 hours when in bed ?Ambulate at least QID ?Up in chair for all meals ?Accuchecks AC and HS ?External DVT prophylaxis device to lower extremities when in bed ?CBC, Chem 7 q ?Lei care per agency protocol ?Straight Cath q 4-6 hours prn ?Peg Care per agency protocol ?Incision care: ?RN: post op assessment, teaching, monitor healing of incision, s/s complications, pain control. Call the surgeon's office with any questions or concerns with incision healing. ?OT/PT: Evaluate and treat ADLS, safety, gait, use of any brace or collars NO stretches or exercises. ?RD: On admission evaluate and recommend nutritional supplements to promote wound and bone healing documented in this encounter [facility] 03-16-2025 Procedure note Associated Ord er(s): GENERAL PROCEDURE VASCULAR INTERVENTIONAL RADIOLOGY PROCEDURE NOTE PROCEDURE INDICATION: Gracie Lemons is a 75 year old male who presents with a right pleural collection here for chest tube placement. PROCEDURE PERFORMED: Ultrasound guided right chest tube placement. FINDINGS: Loculated collection in the right pleural here, with new 10Fr M drain. 100ml blood tinged serous fluid aspirated. PLAN: Keep to suction for now, rest of chest tube care per primary team. If needed, recommend thoracic surgery or pulmonology consult for management. Roberto Burton MD 03/16/2025 4:42 PM PHOTOGRAMMETRY AIRPLANE PILOT(S): Dr. Franci Benoit (Attending), Dr. Roberto Burton (Resident) CONSENT: Informed consent was obtained prior to the procedure after discussion of the risks, benefits, and alternatives of the procedure, and expected procedure outcomes were discussed with the patient and/or hr representative. The consent document was placed in chart. DID THIS PROCEDURE REQUIRE A UNIVERSAL PROTOCOL?: Yes. [place] Protocol is required. Preprocedure verification is complete. Patient verified and consents confirmed, procedure sites identified and marked as appropriate, timeout called before the start of the procedure. SPECIMEN(S) REMOVED: 60ml blood tinged serous fluid. DISPOSITION OF SPECIMEN(S): Microbiology and Cytology ESTIMATED BLOOD LOSS: Less than 5 mL COMPLICATIONS: None immediate ADDITIONAL: Please refer to the report generated in the IMAGING section of the electronic medical record for additional procedure details. Thank you for allowing Interventional Radiology to participate in this patient's care. Cosigned by Franci Benoit MD at 03/17/2025 9:52 AM EDT documented in this encounter [facility] 03-16-2025 Consult note Associated Order (s): IP CONSULT TO NEUROLOGY NEUROLOGY IN-PATIENT CONSULTATION NOTE Reason for consultation: workup and recs for continued extremity weakness. No neurosurgically-related etiology HISTORY OF PRESENT ILLNESS: Gracie Lemons is a 75 y.o. male with history of DMT2, HTN, HLD, CAD on plavix (Last dose 03/04), and prior L3-S1 posterior decompression and fusion with Dr Wiseman on 07/15/12, who presented on 03/04/2025 for surgical management of T7-8 central disc herniation. He is s/p T7/8 lateral retropleural discectomy on 03/11/2025. Neurology is consulted for weakness. History is largely gathered from the patient and his . Patient has had back pain and bilateral lower extremity weakness for the past 2-3 years. He has episodes at home where his legs will just give out. He has had no paresthesias or change in sensation. He saw neurology for this and was diagnosed with a radiculopathy based on EMG results in 2023. Neurologist referred him to the spine center after that and later it was discovered that he had a thoracic bulging disc. Patient underwent right lateral retropleural discectomy on 03/11/25, positioned in lateral decubitus position with right side up for approximately 3.5h. reports she did not see him have any movement of his RLE on POD1 but saw him moving LLE. Patient reports it has felt weak since the surgery. PT was able to get him to his chair on POD1 but he was not able to stand independently when nursing went to get him back in bed. He has not been able to stand since. He denies any numbness or tingling and has had no bowel or bladder changes. He is having low back pain that he reports his pain regimen is helping with currently. Given his worsening RLE weakness compared to the LLE he was transferred to the NCCU for further evaluation and close monitoring and is stable to transfer out of the NCCU today. Patient's reports he had been having some memory issues at home over the past couple of months (forgetting appointments) and his PCP had started him on donepezil that he had only started a couple of days prior to admission for surgery. She reports that post-op he has been confused and was seeing ants on the ceiling. On further history, reports his gait has become more shuffling with smaller steps. She feels his movements have overall slowed and his voice has gotten quieter. His face seems a little less expressive. He has had no tremors. PAST MEDICAL HISTORY Past Medical History[1] PAST SURGICAL HISTORY Past Surgical History[2] FAMILY HISTORY Family History Problem Relation Age of Onset Heart Disease - Other Father Heart Failure Father Diabetes Father Cancer Mother Heart Disease - Other Mother Hypertension Mother Heart Disease - Other Sister Hypertension Sister SOCIAL HISTORY . Ocupation: retired [employer]. Tobacco: none. Alcohol: none. Drug: no illicit drugs. Diet: no restrictive diet. Social History Socioeconomic History Marital status: Spouse name: Not on file Number of children: Not on file Years of education: Not on file Highest education level: Not on file Occupational History Not on file Tobacco Use Smoking status: Never Smokeless tobacco: Never Vaping Use Vaping status: Never Used Substance and Sexual Activity Alcohol use: Never Drug use: Never Sexual activity: Not Currently Partners: Female control/protection: Male Sterilization Other Topics Concern Not on file Social History Narrative Not on file Social Drivers of Health Financial Resource Strain: Not on file Food Insecurity: No Food Insecurity (03/15/2025) NCSS - Food Insecurity Worried About Running Out of Food in the Last Year: No Ran Out of Food in the Last Year: No Transportation Needs: No Transportation Needs (03/15/2025) NCSS - Transportation Lack of Transportation: No Physical Activity: Not on file Stress: Not on file Social Connections: Not on file Personal Safety: Patient Unable To Answer (03/15/2025) NCSS - Interpersonal Safety Feels Physically and Emotionally Safe: Patient unable to answer Physically Hurt by Someone: Patient unable to answer Humiliated or Emotionally Abused by Someone: Patient unable to answer Housing Stability: Not At Risk (03/15/2025) NCSS - Housing/Utilities Has Housing: Yes Worried About Losing Housing: No Unable to Get Utilities: No ALLERGIES Allergies[3] MEDICATIONS PRIOR TO ARRIVAL MEDS: Prior to Admission Medications Prescriptions Last Dose Informant Patient Reported? Taking? Aspirin [address] tablet 03/10/2025 No Yes Sig: Take 1 tablet by mouth daily for 4 days. Patient taking differently: Take 1 tablet by mouth daily. Pt taking daily Dapagliflozin Pro-metFORMIN ER 5-1000 MG Tab SR 24 HR 03/10/2025 Morning Yes Yes Sig: Take 2 tablets by mouth daily. Levothyroxine 50 MCG tablet 03/11/2025 Yes Yes Sig: Take 1 tablet by mouth daily. Metoprolol 100 MG tab regular release Yes Yes Sig: Take 1 tablet by mouth 2 times daily. Mounjaro 10 MG/0.5ML Solution Auto-injector Yes Yes Sig: Inject 10 mg as directed once a week. NINTEDANIB, BIBF 1120,/PLACEBO, [id number], 150 MG capsule 03/11/2025 Yes Yes Sig: Take 1 capsule by mouth every 12 hours. clopidogrel (PLAVIX) 75 MG PO TABS Past Month Yes Yes Sig: Take 1 tablet by mouth at bedtime. donepezil 5 MG tablet 03/10/2025 Yes Yes Sig: Take 1 tablet by mouth At bedtime. ezetimibe (ZETIA) 10 MG PO TABS 03/10/2025 Yes Yes Sig: Take 1 tablet by mouth at bedtime. gliMEPIride 4 MG tablet Yes Yes Sig: Take 1 tablet by mouth daily every morning. lisinopril 20 MG Tab 03/10/2025 Yes Yes Sig: Take 1 tablet by mouth daily. nitroGLYCERIN 0.4 MG tablet SL Yes Yes Sig: Place 1 tablet under tongue every 5 minutes as needed for Chest pain. max = 3 doses. If CP persists after 1st dose, call 911 nortriptyline 25 MG PO CAPS 03/10/2025 Yes Yes Sig: Take 1 capsule by mouth at bedtime. oxyBUTYnin CR 10 MG Tab SR 24 HR tablet Yes Yes Sig: Take 1 tablet by mouth 2 times daily. pantoprazole [address] 03/11/2025 Yes Yes Sig: Take 1 tablet by mouth daily. rosuvastatin 10 MG Tab tablet 03/10/2025 Yes Yes Sig: Take 1 tablet by mouth daily. Facility-Administered Medications: None Current Meds: Current Facility Administered Meds:Current Medications[4] Scheduled Meds: Ascorbic Acid 250 mg Oral Daily [Held by provider] aspirin 81 mg Oral Daily ceFEPIme 2 g Intravenous Q8HNS Cyclobenzaprine 10 mg Oral TID donepezil 5 mg Oral QHS Ergocalciferol 50,000 Units Oral Q7 days Ezetimibe 10 mg Oral QHS ferrous sulfate 324 mg Oral Daily Gabapentin 300 mg Oral QHS guaiFENesin 600 mg Oral Q12H Insulin regular Subcutaneous Q6H Levothyroxine 50 mcg Oral Before BKF [Held by provider] Lisinopril 20 mg Oral Daily Metoprolol 50 mg Oral BID Multi-Vitamins 1 tablet Oral Daily naloxegol 25 mg Oral Daily [Held by provider] Nintedanib Esylate 150 mg Oral Q12H Nortriptyline 25 mg Oral QHS Pantoprazole 40 mg Oral Daily Polyethylene glycol 17 g Oral Q12H Rosuvastatin 10 mg Oral Daily Senna 8.6 mg Oral Q12H vancomycin 15 mg/kg (Adjusted) Intravenous Q12HNS vitamin E 400 Units Oral Daily Continuous Infusions: Electrolyte-a 50 mL/hr at 03/16/25 0656 PRN Meds:alum/mag hydrox.-simethicone, Insulin regular AND BLOOD GLUCOSE (POC DEVICE) AND BLOOD GLUCOSE (POC DEVICE) AND COMMUNICATION ORDER FOR NURSING CARE: For Blood Glucose LESS THAN 80 mg/dl AND Dextrose AND glucose AND NOTIFY PHYSICIAN, Blood Glucose LESS THAN 80 mg/dl, magnesium sulfate, Melatonin, oxyCODONE OR oxyCODONE, Prochlorperazine, Sodium chloride 0.9% OBJECTIVE: Vitals range Temp: [97.5 F (36.4 C)-98.2 F (36.8 C)] 97.5 F (36.4 C) Pulse (Heart Rate): [85-109] 88 Resp Rate: [20-35] 21 BP: (100-149)/(53-97) 123/67 O2 Sat (%): [92 %-99 %] 97 % Body mass index is 30.2 kg/m . O2 Sat (%): 97 % (03/16 800) O2 Device: nasal cannula (03/16 800) Flow (L/min): 1 (03/16 800) Input/ Output Intake/Output Summary (Last 24 hours) at 03/16/2025 0904 Last data filed at 03/16/2025 0641 Gross per 24 hour Intake 1794.55 ml Output 2630 ml Net -835.45 ml Last Bowel Movement: 03/16/25 Physical Exam GENERAL: Laying comfortably in bed; in no acute distress. NEUROLOGICAL EXAMINATION MENTAL STATUS: awake and alert; oriented to person, place, year, and month; good attention. Normal insight into condition. Fund of knowledge intact. Little change in facial expression throughout exam and generally hypokinesic. Voice is soft. LANGUAGE/SPEECH: fluent; comprehension intact. CRANIAL NERVES CN II: Visual price intact to confrontation. PERRL. Normal conjunctivae and lids. 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 No nystagmus. CN V: Facial sensation is intact to light touch. CN VII: Facial strength normal with symmetric movement. CN VIII: Hearing is grossly intact. CN IX and X: Soft palate elevates symmetrically in the midline CN XI: Shoulder shrug and sternocleidomastoid strength (R/L) 5/5 CN XII: Tongue is midline with normal movement; no fasciculations. Motor: Normal muscle bulk throughout. Cogwheel rigidity and paratonia in all extremities and cogwheel rigidity of neck. Mvmt Root Nerve Muscle Right Left Comments SA C5/6 Ax Deltoid 5 Unable to assess R due to prior shoulder injury EF C5/6 Mc Biceps 5 5 EE C6/7/8 Rad Triceps 5 5 WF C6/7 Med FCR 5 5 WE C7/8 PIN ECU 5 5 F Ab C8/T1 U ADM/FDI 4+ 4+ HF L1/2/3 Fem Illopsoas 2 4 KE L2/3/4 Fem Quad 3 5 KF L5/S1 Com per Bi fem 3 5 DF L4/5 D Peron Tib Ant 3 4 PF S1/2 Tibial Grc/Vibha 3 5 Reflexes: Right Left Comments Biceps (C5/6) 2+ 2+ Brachioradialis (C5/6) 2+ 2+ Triceps (C6/7) 2+ 2+ Patellar (L3/4) 2+ 2+ Achilles (S1) 0 0 Plantar Up Down Sensation: Light touch Intact throughout Pin prick Intact throughout Temperature Diminished in bilateral distal lower extremities Vibration Diminished in bilateral distal lower extremities COORDINATION:Rypfbm-an-ojbj intact bilaterally. DATA REVIEW: Recent Labs 03/13/25 2328 03/14/25 0807 03/15/25 0009 03/15/25 0724 03/15/25 1601 03/15/25 1755 03/15/25210803/16/25 0031 03/16/25 0133 03/16/25250 SODIUM 138 -- 139 -- -- -- -- 138 -- -- POTASSIUM 3.8 -- 3.5 -- 3.6 -- -- 3.8 -- -- CHLORIDE 101 -- 99 -- -- -- -- 99 -- -- CO2 27 -- 28 -- -- -- -- 27 -- -- BUN 13 -- 15 -- -- -- -- 16 -- -- CREATSERUM 0.96 -- 0.95 -- -- -- -- 0.96 -- -- GLUCOSE 144 < > 172 < > -- < > 160 178 176 -- CALCIUM 7.5* -- 7.9* -- -- -- -- -- -- -- MAGNESIUM 1.5* -- 1.7 -- -- -- -- 2.0 -- -- PHOSPHORUS 2.4 -- 2.3 -- 2.6 -- -- 3.7 -- -- WBC 14.25* -- 11.89* -- -- -- -- 8.77 -- -- HGB 11.7* -- 11.9* -- -- -- -- 11.7* -- -- PLATELET 215 -- 228 -- -- -- -- 200 -- -- INR -- -- -- -- -- -- -- -- -- 1.6* < > = values in this interval not displayed. Ptt/Pt/Inr: 45.0/18.6/1.6 (03/16 251) Encephalopathy labs (TSH, Folate, B12, syphilis, etc): Lab Results Component Value Date B12 844 05/12/2024 T4FREE 0.80 (L) 10/13/2004 AMMONIA 41 03/15/2025 Stroke modifiable risk factor labs: Lab Results Component Value Date LDLCALC 175 (H) 03/24/2003 HDL 45 (L) 03/24/2003 CHOLESTEROL 232 (H) 03/24/2003 TRIG 59 03/24/2003 HGBA1C 6.5 (H) 07/04/2012 AED Levels: Lab Results Component Value Date PHENYTOIN Specimen not received in laboratory. 01/25/2005 PHNYTOINFREE 1.3 05/08/2003 CSF profile: Lab Results Component Value Date GLUCOSECSF 56 05/07/2003 PROTEINCSF 38 05/07/2003 MG panel: No results found for: ACETYLRECAB, ACHRECMODAB, ACHRECBLKAB, ACHRBINDAB, ACHRECBNAB, ACETYLCRECAB, MUSKAB, STRMSLAB, LRP4AB Rheumatological/Autoimmune Lab Results Component Value Date SEDRATE 75 (H) 03/13/2025 CRP 265.68 (H) 03/13/2025 ALBUMINALB 3.8 05/12/2024 ALPHA1 0.2 05/12/2024 ALPHA2 0.8 05/12/2024 BETA 1.0 05/12/2024 GAMMA 1.1 05/12/2024 SPEINTERPRET Normal serum protein electrophoresis pattern. 05/12/2024 [email or web address] Jg March MD 02/26/2005 LFTs Lab Results Component Value Date ALT 37 07/16/2012 AST 65 (H) 07/16/2012 ALKPHOS 37 (L) 07/16/2012 BILITOTAL 0.5 07/16/2012 BILIDIRECT 0.2 02/23/2005 Urinalysis Lab Results Component Value Date GLUCOSEURINE >=1000 mg/dL (A) 03/05/2025 KETONESURINE Negative 03/05/2025 BLOODURINE Negative 03/05/2025 LEUKOCESTUR Negative 03/05/2025 PROTEINURINE Negative 03/05/2025 WBCURINE 0 - 5 03/05/2025 RBCURINE 0-2 03/05/2025 BACTERIAURIN ABSENT 03/05/2025 SQUAMCELUR 0-2/hpf 03/05/2025 UDS/ETOH: No results found for: AMPMETUR, BENZOUR, OXYCODONE, FENTU, METHADUR, BUPRENORPHIN, ETOHSERUM Additional Neuropathy labs: - Infectious/post-infectious: Lab Results Component Value Date HEPBCRABIGMA NEGATIVE Normal is negative 02/27/2005 HEPCAB NEGATIVE Normal is negative 02/27/2005 - Inflammatory/Immunologic: Lab Results Component Value Date SEDRATE 75 (H) 03/13/2025 CRP 265.68 (H) 03/13/2025 ALBUMINALB 3.8 05/12/2024 ALPHA1 0.2 05/12/2024 ALPHA2 0.8 05/12/2024 BETA 1.0 05/12/2024 GAMMA 1.1 05/12/2024 SPEINTERPRET Normal serum protein electrophoresis pattern. 05/12/2024 [email or web address] Jg March MD 02/26/2005 - Hematologic: No results found for: CRYOGLOBULIN, CRYOFIBRINOG - Toxic/Metabolic: Lab Results Component Value Date B12 844 05/12/2024 IMAGING XR ABDOMEN 1 VIEW PORTABLE XR CHEST 1 VIEW PORTABLE XR ABDOMEN 1 VIEW PORTABLE Final Result IMPRESSION: 1. Progressive gaseous distention and dilation of small and large bowel, suggestive of ileus. 2. No gross free air. I personally viewed and interpreted these images and I have reviewed and approved this report. CHEST 1 VIEW PORTABLE Final Result IMPRESSION: No pulmonary edema. Mildly decreased size of right pleural effusion. SPINE CERVICAL WITH AND WITHOUT CONTRAST Final Result IMPRESSION: Significant motion degraded examination. Multilevel degenerative changes in the cervical spine appear overall similar to prior MRI accounting for motion artifact. Mild central canal stenosis C5-C6 and C6-7. No definite signal abnormality within the cervical spinal cord. SPINE LUMBAR WITH AND WITHOUT CONTRAST Final Result IMPRESSION: Again seen are postoperative changes of posterior fusion hardware from L3-S1 and laminectomy changes from L3 to L5. Degenerative changes appear unchanged from August 2024 examination. No significant central canal stenosis. Severe neural foraminal narrowing bilaterally at L2-L3 and on the left at L5-S1. I personally viewed and interpreted these images and I have reviewed and approved this report. BRAIN WITHOUT CONTRAST Final Result IMPRESSION: No evidence of acute infarct or mass effect. Remote insult in the right cerebral hemisphere with adjacent craniectomy. Remote right cerebellar infarcts. ABDOMEN 1 VIEW PORTABLE Final Result IMPRESSION: Diffuse small bowel and colonic dilatation, suggestive of ileus. CHEST 1 VIEW PORTABLE Final Result IMPRESSION: Increased right effusion. Known anterior pneumothorax identified on same day chest CT is not seen on radiograph. Stable bilateral consolidative opacities correlating with known predominantly atelectatic changes throughout the lungs. CHEST WITH CONTRAST Final Result IMPRESSION: 1. Small right hydropneumothorax. Complete atelectasis of the right lower lobe and significant partial atelectasis of the right upper and middle lobes do both to compressive atelectasis from the effusion as well as obstructive mucous plugging and postobstructive atelectasis. A right thoracostomy tube is outside the thoracic cavity terminating in the sixth rib osteotomy with a clearly layer of subpleural fat between the tube tip in the pleural effusion. The pneumothorax is loculated anteriorly and likely will not be seen on single view AP radiograph because of its location/positioning. 2. Segmental atelectatic changes in the left lung. 3. Small fluid collection along the right T7-T8 vertebral bodies with internal foci of gas. Small foci of gas are also seen in the adjacent right pleural effusion and thecal canal. Findings are all presumably postoperative given recent surgery on March 11, 2025. I personally viewed and interpreted these images and I have reviewed and approved this report. SPINE THORACIC WITHOUT CONTRAST Final Result IMPRESSION: Interval right lateral T7-T8 discectomy. Previously visible dorsal disc osteophyte is no longer seen with decompression of the spinal canal. No thoracic spinal cord signal abnormality. CHEST 1 VIEW PORTABLE Final Result IMPRESSION: Right thoracostomy tube is difficult to see. No pneumothorax. Increased small right effusion and atelectasis. PROCEDURE NOT PERFORMED Final Result XR CHEST 1 VIEW PORTABLE Final Result IMPRESSION: 1. Bibasilar atelectatic foci. 2. The lungs are otherwise clear. FLUORO > 1 HOUR OR CHEST TUBE PLACEMENT (Results Pending) ASSESSMENT/ PLAN: Impression: This is a 75 y.o. male with history of DMT2, HTN, HLD, CAD on plavix (Last dose 03/04), and prior L3-S1 posterior decompression and fusion with Dr Wiseman on 07/15/12, who presented on 03/04/2025 for surgical management of T7-8 central disc herniation. He is s/p T7/8 lateral retropleural discectomy on 03/11/2025. Neurology is consulted for weakness. Neurological examination is remarkable for diffuse RLE weakness. Spine and brain imaging are without focal lesion explaining the weakness. This could localize to the right lumbosacral plexus, with potential stretch or compression given surgery duration. Timeline of weakness being present after surgery that is already showing some clinical improvement could also align with a plexus injury. If he does not continue to improve, EMG can be considered in the outpatient setting. Exam is also notable for cogwheel rigidity, paratonia, limited range of facial expression, and soft voice. This in conjunction with his more recent memory deficits and 's report of shuffling gait and slowing in movements raises concern for Parkinsonism, which was likely contributing to his falls at home. This would be better assessed formally in the outpatient setting further from his acute surgical recovery given development of delirium and new weakness, and a referral to movement disorders clinic has been placed. Recommendations: Avoid dopamine blocking agents Recommend PT and OT A referral to movement disorders clinic has been placed No further workup indicated from a neurology perspective at this time given current clinical improvement Thank you for the consultation. If you have any further questions, please contact the neurology consult team resident director of provider relations. Patient and plan discussed with general neurology attending, Dr. Pompa. Mana Hannah MD Neurology [1] Past Medical History: Diagnosis Date Anemia BPH (benign prostatic hyperplasia) Brain abscess CAD (coronary artery disease) Colon polyp Diabetes mellitus GERD (gastroesophageal reflux disease) High cholesterol HTN (hypertension) Nephrolithiasis RAFAEL (obstructive sleep apnea) Primary adrenal deficiency Stroke Stroke-like episode x3 Syncope Thalamic infarction TIA (transient ischemic attack) [2] Past Surgical History: Procedure Laterality Date FUSION EXTREME LATERAL INTERBODY LUMBAR N/A 03/11/2025 Laterality: N/A; Surgeon: Doretha Brandon MD; Location: [facility] MA[facility] OR CORPECTOMY VERTEBRAL W/ DECOMPRESSION TRANSTHORACIC APPROACH N/A 03/11/2025 Laterality: N/A; Surgeon: Doretha Brandon MD; Location: [facility] MAIN OR GRAFT SPINE SURGERY ONLY AUTOGRAFT POSTERIOR ADD-ON PX N/A 03/11/2025 Laterality: N/A; Surgeon: Doretha Brandon MD; Location: [facility] MA[facility] OR LOOP RECORDER IMPLANTATION 05/07/2013 Surgeon: Huy Romo MD; Location: [facility] HURON EP LAMINECTOMY FACETECTOMY AND FORAMINOTOMY VERTEBRAL SEGMENT LUMBAR SINGLE 07/15/2012 Laterality: Midline; Surgeon: Trinidad Wiseman MD, PhD; Location: [facility] MAIN OR FUSION POSTERIOR LUMBAR 07/15/2012 Laterality: Midline; Surgeon: Trinidad Wiseman MD, PhD; Location: [facility] MAIN OR INSERTION SPINAL INSTRUMENTATION POSTERIOR NONSEGMENTAL ADD-ON PX 07/15/2012 Laterality: Midline; Surgeon: Trinidad Wiseman MD, PhD; Location: [facility] MAIN OR HERNIA REPAIR 2008 BRAIN SURGERY 2002 BACK SURGERY 1984 BRAIN MENINGIOMA EXCISION COMPLETE EXTRACTION OF TEETH WISDOM TEETH EXTRACTION [3] Allergies Allergen Reactions Acetaminophen Dilaudid [Hydromorphone] Confusion Penicillins Hives and Rash [4] Current Facility-Administered Medications Medication Dose Route Frequency Provider Last Rate Last Admin alum/mag hydrox.-simethicone oral suspension 30 mL 30 mL Oral Q6H PRN Elijah Russell MD Ascorbic Acid tablet 250 mg 250 mg Oral Daily Elijah Russell MD 250 mg at 03/16/25 0834 [Held by provider] aspirin chewable tablet 81 mg 81 mg Oral Daily Elijah Russell MD 81 mg at 03/15/25 0909 ceFEPIme (MAXIPIME) 2 g in dextrose 100 ml premix IVPB 2 g Intravenous Q8HNS Mhd Isaak Caal MD 25 mL/hr at 03/16/25 0830 2 g at 03/16/25 0830 Cyclobenzaprine (FLEXERIL) tablet 10 mg 10 mg Oral TID Elijah Russell MD 10 mg at 03/16/25 0834 Insulin regular (HUMULIN R;NOVOLIN R) injection Subcutaneous Q6H PAN Christina 2 Units at 03/16/25 0308 And Dextrose 50% injection 7.5-25 g 7.5-25 g Intravenous As directed PRN PAN Christina And glucose (GLUTOSE) 40 % oral gel 1-2 Tube 1-2 Tube Oral As directed PRN Kayla Greene APRN-YVETTE donepezil (ARICEPT) tablet 5 mg 5 mg Oral QHS Elijah Russell MD 5 mg at 03/15/252108 Electrolyte-a (PLASMALYTE-A) IV solution Intravenous Continuous Swapna Barcenas MD 50 mL/hr at 03/16/25 0656 New Bag at 03/16/25 0656 Ergocalciferol (VITAMIN D2) capsule 50,000 Units 50,000 Units Oral Q7 days Elijah Russell MD 50,000 Units at 03/11/25 225 Ezetimibe (ZETIA) 10 mg 10 mg Oral QHS Elijah Russell MD 10 mg at 03/15/252108 ferrous sulfate tablet 324 mg 324 mg Oral Daily Elijah Russell MD 324 mg at 03/16/25 0834 Gabapentin (NEURONTIN) capsule 300 mg 300 mg Oral QHS Elijah Russell MD 300 mg at 03/15/252108 guaiFENesin (MUCINEX) tablet SR 600 mg 600 mg Oral Q12H Salomon Travis MD 600 mg at 03/16/25 0834 Levothyroxine (SYNTHROID) tablet 50 mcg 50 mcg Oral Before BKF Elijah Russell MD 50 mcg at 03/16/25 0438 [Held by provider] Lisinopril (PRINIVIL) tablet 20 mg 20 mg Oral Daily Elijah Russell MD 20 mg at 03/14/25 1103 Magnesium sulfate 4 g in sterile water 50 ml premix IVPB 4 g Intravenous As directed PRN Leora Meredith PA-C 12.5 mL/hr at 03/16/25 0641 Rate Verify at 03/16/25 0641 Melatonin tablet 6 mg 6 mg Oral QHS PRN Elijah Russell MD 6 mg at 03/12/25 2224 Metoprolol (LOPRESSOR) tablet 50 mg 50 mg Oral BID Raz Montaño MD 50 mg at 03/16/25 0834 Multi-Vitamins tablet 1 tablet 1 tablet Oral Daily Elijah Russell MD 1 tablet at 03/16/25 0834 naloxegol (MOVANTIK) tablet 25 mg 25 mg Oral Daily PAN [place] 25 mg at 03/16/25 0835 [Held by provider] Nintedanib Esylate CAPS 150 mg +Patient Supply+ 150 mg Oral Q12H Zack Tian MD 150 mg at 03/14/25 1130 Nortriptyline (PAMELOR) capsule 25 mg 25 mg Oral QHS Elijah Russell MD 25 mg at 03/15/252108 oxyCODONE (ROXICODONE) tablet 5 mg 5 mg Oral Q4H PRN Elijah Russell MD 5 mg at 03/11/25 225 Or oxyCODONE (ROXICODONE) tablet 10 mg 10 mg Oral Q4H PRN Elijah Russell MD 10 mg at 03/14/25 1103 Pantoprazole (PROTONIX) tablet DR 40 mg 40 mg Oral Daily Elijah Russell MD 40 mg at 03/16/25 0834 Polyethylene glycol (MIRALAX) packet 17 g 17 g Oral Q12H PAN [place] 17 g at 03/14/252023 Prochlorperazine (COMPAZINE) injection 10 mg 10 mg Intravenous Q6H PRN Elijah Russell MD Rosuvastatin (CRESTOR) tablet 10 mg 10 mg Oral Daily Elijah Russell MD 10 mg at 03/16/25 0835 Senna (SENOKOT) tablet 8.6 mg 8.6 mg Oral Q12H PAN [place] 8.6 mg at 03/16/25 0834 Sodium chloride 0.9% IV solution 250 mL 250 mL Intravenous PRN Elijah Russell MD Stopped at 03/16/25 0618 Vancomycin HCl in NaCl (VANCOCIN) 1,000 mg in 200 ml NS premix IVPB 15 mg/kg (Adjusted) Intravenous Q12HNS PAN [place] 100 mL/hr at 03/16/25 0641 Rate Verify at 03/16/25 0641 vitamin E capsule 400 Units 400 Units Oral Daily Elijah Russell MD 400 Units at 03/16/25 0835 Cosigned by Sandhya Pompa MD at 03/16/2025 5:14 PM EDT Associated attestation - Sandhya Pompa MD - 03/16/2025 5:14 PM EDT I saw and independently examined the patient today on 03/16/25. I agree with the history, examination, and medical decision making as outlined by the resident. 75 y.o. male with history of DMT2, HTN, HLD, CAD on plavix (Last dose 03/04), and prior L3-S1 posterior decompression and fusion with Dr Wiseman on 07/15/12, who presented on 03/04/2025 for surgical management of T7-8 central disc herniation. He is s/p T7/8 lateral retropleural discectomy on 03/11/2025. Neurology is consulted for weakness post-op. Reports baseline left foot drop and new right LE weakness which was noted upon awakening from surgery. Reports symptoms improving. Denies numbness, paresthesias, worsening back pain, saddle anesthesia, bowel/bladder dysfunction. Exam notable for 5/5 strength in UE, 5/5 in left LE except dorsiflexion 3/5, 2/5 right LE at hip flexion, knee flexion and 3/5 at knee extension and ankles. Reflexes 2+ UE and 1+ patella and absent achilles. Stocking sensory loss. I have independently reviewed the following tests and diagnostics: Ionized calcium 3.6, ammonia 41, glucose 178, WBC 8.7, Hgb 11.7, plt 200k, ESR 75, SPEP Normal, respiratory panel negative, CRP 265, MRI brain Encephalomalacia in the right cerebral hemisphere with adjacent craniectomy. Remote right cerebellar infarcts. MRI cervical, thoracic, lumbar w/wo showing stable multi-level degenerative changes and post-op changes. Right LE weakness, : may have been a lumbosacral plexopathy in the setting of positioning during surgery and appears to be improving. In addition patient has parkinsonian findings of masked facies, hypophonic speech, cogwheeling rigidity of axial and appendicular muscles, and bradykinesia. reports 2 year decline in gait, slowness of movements, voice change, shuffling walking. Suspect possible parkinson's disease as a contributor to gait instability/falls. Will place referral to [facility] for further evaluation. Sandhya Pompa M.D. Chief Quality Officer of Neurology Co-Director of Neurohospitalist Medicine & Teleneurology Associated Order(s): IP CONSULT TO INTERVENTIONAL RADIOLOGY Interventional Radiology Consult Note Interventional Radiology Clinic [phone] - Interventional Radiology Scheduling [phone] [facility] director treasurer [id number] - [facility] director treasurer [id number] Requesting Provider/Service: Swapna Barcenas MD Reason for Consult: Chest tube for R pleural effusion HPI/Imaging Findings: Gracie Lemons is a 75 y.o. male with a past medical history of T2DM, hypothyroidism, unclear ILD who presented on 03/11/2025 for planned treatment of thoracic disc herniation with 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 which he underwent on day of admission. Following his surgery the patient has had altered mental status with 5L O2 requirement. Patient had a thoracostomy tube placement which was noted to be outside the thoracic cavity on CT Chest 03/13/25 and has since been removed. IR consulted for chest tube placement. CT Chest 03/13/25 significant for right hydropneumothorax with RLL atelectasis and subsegmental atelectasis of the RUL and RML. CT Chest 03/13/25: IMPRESSION: 1. Small right hydropneumothorax. Complete atelectasis of the right lower lobe and significant partial atelectasis of the right upper and middle lobes do both to compressive atelectasis from the effusion as well as obstructive mucous plugging and postobstructive atelectasis. A right thoracostomy tube is outside the thoracic cavity terminating in the sixth rib osteotomy with a clearly layer of subpleural fat between the tube tip in the pleural effusion. The pneumothorax is loculated anteriorly and likely will not be seen on single view AP radiograph because of its location/positioning. 2. Segmental atelectatic changes in the left lung. 3. Small fluid collection along the right T7-T8 vertebral bodies with internal foci of gas. Small foci of gas are also seen in the adjacent right pleural effusion and thecal canal. Findings are all presumably postoperative given recent surgery on March 11, 2025. Sedation Anticipated: Moderate Anticoagulation: Aspirin 81 mg, Lovenox 40mg subcutaneous Contrast allergy: None Laboratory Data: Lab Results Component Value Date/Time HGB 11.9 (L) 03/15/2025 12:09 AM HGB 15.9 05/07/2013 08:28 AM PLATELET 228 03/15/2025 12:09 AM PLATELET 282 05/07/2013 08:28 AM INR 1.1 03/12/2025 01:10 AM INR 1.0 05/07/2013 08:28 AM SODIUM 139 03/15/2025 12:09 AM SODIUM 137 05/07/2013 08:28 AM SODIUM 135 07/15/2012 06:45 PM POTASSIUM 3.5 03/15/2025 12:09 AM POTASSIUM 3.7 05/07/2013 08:28 AM POTASSIUM 3.8 07/15/2012 06:45 PM POTASSIUM 4.60 04/12/2003 12:44 PM GFR 83 03/15/2025 12:09 AM GFR 56 (L) 05/07/2013 08:28 AM GFR >60 05/07/2013 08:28 AM Allergies: Allergies[1] Impression/Plan: Gracie Lemons is a 75 y.o. male s/p 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 who has had post op altered mental status with 5L O2 requirement. Patient had a thoracostomy tube placement which was noted to be outside the thoracic cavity on CT Chest 03/13/25 and has since been removed. IR consulted for right sided chest tube placement. Consult discussed with Dr. Barcenas from the requesting team on 03/15/2025 at 4:15PM who confirmed the consult is for a right sided chest tube into the right sided pleural effusion. Per pulmonary note, clinical team also wanting cytology from the pleural fluid. Discussed with Dr. Barcenas who will be ordering the desired studies for the pleural fluid. Approved for right sided chest tube placement with US guidance. Will schedule as imaging suite availability permits. Please make patient NPO at midnight prior to the procedure Hgb 7.0 or greater, INR < 1.5-1.8 and platelets > 50k Blood pressure goal: 160s/90 or lower Anticoagulation, if taking any not listed, may need to be held per guidelines Consult reviewed with IR Attending Dr. Benoit who agrees with the above plan. Please call IR Charge nurse for scheduling questions [phone]. Tino Quintana MD 03/15/2025 3:52 PM Radiology PGY-4 Most recent History and Physical exam was reviewed and we agree with their assessment. Important Notes Procedures are performed with either moderate sedation or anesthesia services. Both require the patient to be NPO (which includes tube feeds). Patients will need to lie flat comfortably for the duration of the procedure. Please be aware that patients requiring anesthesia services will require additional coordination which may increase the time from consult to procedure. [1] Allergies Allergen Reactions Acetaminophen Dilaudid [Hydromorphone] Confusion Penicillins Hives and Rash Cosigned by Franci Benoit MD at 03/16/2025 10:47 AM EDT Associated Order(s): IP CONSULT TO PULMONOLOGY Images from the original note were not included. Pulmonary/Critical Care Medicine Inpatient Consultation Reason for Consultation: pleural effusion, hx of pulmonary fibrosis Requesting Physician: Dr. Brandon Outpatient Pulmonary Physician: Dr. Abdul ([phone]) Impression & Recommendations: Gracie Lemons is a 75 y.o. 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 He is now on POD2 and requires an urgent MRI, but is unable to lie flat due to cough. Nothing obvious on CXR to show a pulmonary source of this new cough, which is significantly different in character and frequency to his prior ling-disease related cough. Chest tube output or dysfunction also does not seem to be a major contributing factor. Would start with low hanging fruit but optimizing volume status and ruling out infection. If cough persists, may need to consider treating for presumed ILD exacerbation, but with recent surgery and the impaired wound healing imparted by systemic steroids, this would be suboptimal. Impression: Fibrotic lung disease, unclear Intractable coughing S/p T7-T8 discectomy Recommendations: Please send eRVP to rule out viral infection Diurese for a goal net - 1L over the next 24 hrs Please trend BNP to assess volume status Please obtain ESR/CRP to assess for inflammation If not improving, may consider steroids for presumed ILD flare Thank you for this consult. All recommendations are preliminary until cosigned by the attending. Chloe Mayes MD Fellow Pulmonary and Critical Care HPI: Gracie Lemons is a 75 y.o. 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 Had a chest tube placed post-op for unclear reasons, which had 114 cc of output yesterday and 4 cc of output today. Nursing reports that the chest tube output is flowing freely. Patient's reports he was diagnosed with pulmonary fibrosis many years ago, although she does not know what kind. She is unsure of exactly what his PFTs showed, but notes that he was monitored via PFTs for a while and then when they began to worsen he was started on 3 weeks of high dose steroids with a taper which improved the inflammation seen on CT. He has been completely off steroids for 3 weeks and in the past month was started on Ofev. Patient and his report that he chronically has a small dry cough, but it has substantially worsened over the past 24 hrs and is now wet and feels stuck in the back of his throat. He has never had a cough like this before associated with his lung disease. Outside of reduced right shoulder movement 2/2 a shoulder injury, he is otherwise feeling alright. ROS: Pertinent positives and negatives as per HPI. All other systems were reviewed and negative. Past Medical, Surgical, Family & Social History: Past Medical History[1] Past Surgical History[2] Family History Problem Relation Age of Onset Heart Disease - Other Father Heart Failure Father Diabetes Father Cancer Mother Heart Disease - Other Mother Hypertension Mother Heart Disease - Other Sister Hypertension Sister Social History[3] Occupation & Exposures: Work in [employer] and [employer] all his life, reports they were told his lung disease is related to this Allergies & Medications: Allergies[4] Scheduled Medications: Ascorbic Acid 250 mg Oral Daily aspirin 81 mg Oral Daily bisacodyl 10 mg Rectal Daily Cyclobenzaprine 10 mg Oral TID donepezil 5 mg Oral QHS [Held by provider] enoxaparin 40 mg Subcutaneous Q24H Ergocalciferol 50,000 Units Oral Q7 days Ezetimibe 10 mg Oral QHS famotidine (PF) 20 mg Intravenous Q12H Or faMOTIdine 20 mg Oral Q12H ferrous sulfate 324 mg Oral Daily Gabapentin 300 mg Oral QHS Insulin lispro Subcutaneous 4x daily w/meals, HS Levothyroxine 50 mcg Oral Before BKF Lisinopril 20 mg Oral Daily Metoprolol 50 mg Oral BID Multi-Vitamins 1 tablet Oral Daily Non-formulary 400 mg Oral Q12H Nortriptyline 25 mg Oral QHS Pantoprazole 40 mg Oral Daily Polyethylene glycol 17 g Oral Daily Rosuvastatin 10 mg Oral Daily Senna 17.2 mg Oral Daily vitamin E 400 Units Oral Daily Continuous Infusions: Lactated ringers Stopped (03/13/25 0916) PRN Medications:alum/mag hydrox.-simethicone, Insulin lispro AND Insulin lispro AND BLOOD GLUCOSE (POC DEVICE) AND BLOOD GLUCOSE (POC DEVICE) AND COMMUNICATION ORDER FOR NURSING CARE: For Blood Glucose LESS THAN 80 mg/dl AND Dextrose AND glucose AND NOTIFY PHYSICIAN, Blood Glucose LESS THAN 80 mg/dl AND Carbohydrate counts with meals, diphenhydrAMINE, HYDROmorphone OR HYDROmorphone, Melatonin, Ondansetron OR Ondansetron 4mg/2ml, oxyCODONE OR oxyCODONE, Prochlorperazine, Sodium chloride 0.9% Objective Findings: Physical Exam: Temp: [97.2 F (36.2 C)-98.5 F (36.9 C)] 97.6 F (36.4 C) Pulse (Heart Rate): [100-123] 107 Resp Rate: [18-33] 20 BP: (74-135)/(44-69) 102/66 O2 Sat (%): [90 %-100 %] 100 % GEN: well-appearing, NAD, obese. HEENT: normal conjunctivae, clear oropharynx, moist MM RESP: CTAB , no w/r/r, dullness in the right base with scattered fine crackles bilaterally, breathing comfortably on 2L NC. CV: RRR, normal S1 and S2, no r/g/m, 1+ LE edema GI: soft, NT, ND. MSK: no deformity. SKIN: warm, dry, no cyanosis. NEURO: alert, responds appropriately to questions, weak right arm Lab Data: WBC/Hgb/Hct/Plts: 16.35/12.4/37.6/219 (03/13 43) Na/K+/Phos/Mg/Ca: 137/3.9/2.2/1.4/7.6 (03/13 43) Bun/Creat/Cl/CO2/Glucose: 10/0.85/103/24/145 (03/13 43-03/13 817) Relevant Microbiologic Data: MRSA nares - TTE (05/2024): EF 60% PFTs: No data to display I have personally reviewed and interpreted the following imaging studies with the pulmonary/critical care attending. Official reports included below: CXR: No CT on file [1] Past Medical History: Diagnosis Date Anemia BPH (benign prostatic hyperplasia) Brain abscess CAD (coronary artery disease) Colon polyp Diabetes mellitus GERD (gastroesophageal reflux disease) High cholesterol HTN (hypertension) Nephrolithiasis RAFAEL (obstructive sleep apnea) Primary adrenal deficiency Stroke Stroke-like episode x3 Syncope Thalamic infarction TIA (transient ischemic attack) [2] Past Surgical History: Procedure Laterality Date LOOP RECORDER IMPLANTATION 05/07/2013 Surgeon: Huy Romo MD; Location: [facility] EP LAMINECTOMY FACETECTOMY AND FORAMINOTOMY VERTEBRAL SEGMENT LUMBAR SINGLE 07/15/2012 Laterality: Midline; Surgeon: Trinidad Wiseman MD, PhD; Location: [facility] E MAIN OR FUSION POSTERIOR LUMBAR 07/15/2012 Laterality: Midline; Surgeon: Trinidad Wiseman MD, PhD; Location: [facility] MAIN OR INSERTION SPINAL INSTRUMENTATION POSTERIOR NONSEGMENTAL ADD-ON PX 07/15/2012 Laterality: Midline; Surgeon: Trinidad Wiseman MD, PhD; Location: [facility] MAIN OR HERNIA REPAIR 2008 BRAIN SURGERY 2002 BACK SURGERY 1984 BRAIN MENINGIOMA EXCISION COMPLETE EXTRACTION OF TEETH WISDOM TEETH EXTRACTION [3] Social History Tobacco Use Smoking status: Never Smokeless tobacco: Never Vaping Use Vaping status: Never Used Substance Use Topics Alcohol use: Never Drug use: Never [4] Allergies Allergen Reactions Acetaminophen Dilaudid [Hydromorphone] Confusion Penicillins Hives and Rash Cosigned by MARLO Vargas, PhD at 03/13/2025 7:18 PM EDT Associated attestation - Charan Barfield MBBS, PhD - 03/13/2025 7:18 PM EDT Attending Physician Statement I have seen and independently examined Gracie Lemons, and have independently reviewed pertinent labs/radiographs. I agree with the history, physical examination, and medical decision making as documented by Dr. Mayes. I actively participated in the formulation of the assessment and plan as outlined by . History is mostly provided by patient's . She reports that they have been followed by Pulmonary provider locally for over 2 years. Last set of PFTs in November 2024 not significantly different than March 2024 per her report. There is a question of a robotic lung disease. Bronchoscopy with BAL done in August 2024. He was given prednisone, 30 mg per day dose with taper which she finished around 3 or so weeks back. He has been on nintedanib 150 mg b.i.d. for the last 1 month for fibrotic lung disease. At baseline he has cough, which is different now. He also has orthopnea. 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 On my exam, crackles both bases.. WBC count increased from 8.83 on 03/12 to 16.35 on 03/13. Concern for pulmonary edema/volume overload versus ILD exacerbation. Recommend obtain BNP, diurese with a goal of net negative at least a L in the next 24 hours. Check ESR and CRP as inflammatory markers which might not be specific. If despite diuresis symptoms remain, we will need to obtain chest CT scan to evaluate for ILD flare and potentially consider steroids if that will be okay with the primary team.. Remainder as detailed by Dr. Mayes. MARLO Vargas, PhD underwear hemmer Pulmonary & Critical Care Medicine documented in this encounter [facility] 03-11-2025 Nurse Note Report given to Aline SOMMERS. Patient going to room B 816 per [facility] with patient on telemetry and pulse ox. [facility] called to send up any family. Chest x-ray done at bedside and Dr. Jaqui Russell reviewed x-ray and Ok'd x-ray Dr. Jaqui Russell and Genaro Cerrato DESKTOP SUPPORT CONSULTANT to PACU with patient per [facility] and report given to Dc Wolfe RN. Report given to PACU director treasurer. Anesthesia to accompany patient. documented in this encounter [facility] [facility] 03-11-2025 History and physical note Neurosurgery Preoperative History and Physical Date of surgery: 03/11/2025 HPI: Gracie Lemons is a 75 y.o. 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] Allergies: Allergies[1] Infusions: Lactated ringers 75 mL/hr at 03/11/25 1123 Scheduled Meds: PRN Meds: ceFAZolin Home Meds: Current Outpatient Medications Medication Instructions Aspirin 81 mg, Oral, DAILY [Paused] Clopidogrel (PLAVIX) 75 mg, DAILY AT BEDTIME Dapagliflozin Pro-metFORMIN ER 5-1000 MG Tab SR 24 HR 2 tablets, DAILY donepezil (ARICEPT) 5 mg, AT BEDTIME ezetimibe (ZETIA) 10 MG PO TABS 1 tablet, DAILY AT BEDTIME gliMEPIride (AMARYL) 2 mg, 2 TIMES DAILY Levothyroxine (SYNTHROID) 50 mcg, DAILY Lisinopril (PRINIVIL) 20 mg, DAILY Metoprolol (LOPRESSOR) 50 mg, 2 TIMES DAILY [Paused] Mounjaro 10 mg, WEEKLY NINTEDANIB (BIBF 1120)/PLACEBO ([id number]) 150 mg, EVERY 12 HOURS nortriptyline 25 MG PO CAPS 1 capsule, DAILY AT BEDTIME oxyBUTYnin (DITROPAN) 10 mg, 2 TIMES DAILY pantoprazole [address] 1 tablet, DAILY Rosuvastatin (CRESTOR) 10 mg, DAILY Synjardy XR 12.5-1000 MG Tab SR 24 HR 12.5-1,000 mg, DAILY Vitals: BP 145/77 (BP Location: Right arm, BP Position: Lying) Pulse 75 Temp 97.7 F (36.5 C) (Oral) Resp 16 Ht 1.651 m (5' 5) Wt 82.3 kg (181 lb 8 oz) SpO2 95% BMI 30.20 kg/m Smoking Status Never Physical Exam: NAD AO3 EOMI, PERRL SA EF EE FG DI HF KF KE PF DF Right 4 shoulder joint injury 5 5 5 5 5 4- 5 5 5 Left 5 5 5 5 5 5 4 5 5 3 SILT A/P: Gracie Lemons is a 75 y.o. male here for Proc Description: Right 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, CORPECTOMY VERTEBRAL W/ DECOMPRESSION TRANSTHORACIC APPROACH, GRAFT SPINE SURGERY ONLY AUTOGRAFT POSTERIOR ADD-ON PX; Right 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, Right 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, Right 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. - to OR [1] Allergies Allergen Reactions Acetaminophen Dilaudid [Hydromorphone] Confusion Penicillins Hives and Rash Cosigned by Doretha Brandon MD at 03/15/2025 12:32 AM EDT documented in this encounter [facility] 03-06-2025 Consult note Associated Order (s): IP CONSULT TO CARDIOLOGY See consult note 03/06/2025 [facility] Work Phone: 03-06-2025 Consult note Associated Order (s): IP CONSULT TO CARDIOLOGY See consult note 03/06/2025 Associated Order(s): IP CONSULT TO CARDIOLOGY Images from the original note were not included. CARDIOLOGY CONSULT Patient Name: Gracie Lemons Date of Consult: 03/06/2025 Reason for Consultation: pt with extensive cardiac history on plavix, thoracic disc herniation leading to progressive weakness. appreciate pre op risk stratification prior to OR on 03/11 Referred by: Doretha Brandon MD ASSESSMENT AND PLAN: Gracie Lemons is a 75 y.o. male with a history of CAD as outlined admitted before thoracic disc herniation surgery. CARDIOLOGY PROBLEM LIST Pre op cardiovascular risk stratification CAD with PCI to the OM/Cx in 2012, NOT in the setting of an [place] HTN Reportedly 1 episode of AF with no recurrence, has not bee on anticoagulation HLD Other Problems: Thoracic disc herniation LE weakness Pulmonary fibrosis with prior Bx S/p TURP RAFAEL ASSESSMENT: He has < 4 METS of activity but his ROACH and NSQIP risks are all < 1%, AND he had a normal stress test in May 2024 at his local cardiologists office in [place], [place] (his had records which I reviewed). RECOMMENDATIONS: He does NOT need further cardiac testing other than a baseline ECG to have on file. He can proceed with surgery otherwise with above risk of MACE perioperatively IDEALLY he is on 81 mg aspirin daily with presence of prior coronary stent. Thus, if the surgery can be performed on this, would restart aspirin in place of plavix. IF surgery canNOT be performed on aspirin, then reasonable to hold both aspirin and plavix as he was off plavix for procedures earlier this year and did ok (though that is no guarantee) and restart after surgery as soon as able Continue metoprolol 25 mg BID through perioperative period HOLD lisinopril day of surgery His med list reports dapagliflozin-metformin combination pill, this should be held 72h before surgery These recommendations were communicated to the primary team by [facility]. Thank you for allowing us to participate in the care of this patient. If you have further questions please do not hesitate to contact the Cardiology Consult service through [facility]. We will sign off. Lynne Salguero MD Lead Mechanic, Internal Medicine [employer]TER OPER[employer] Program: [facility] Adult Congenital Heart Disease and Pulmonary Hypertension Program [facility] [place], [place] [email or web address] Pager: [phone] This note was generated using voice recognition system. Unfortunately this may lead to occasional typographical errors - there may be some incorrect words, spellings and punctuation. I apologize in advance if the situation occurs. If questions occur please page me. HISTORY OF PRESENT ILLNESS: It was my pleasure to see . Gracie Lemons in consultation at the [facility] on 03/06/2025 for evaluation of his pre op eval. He is a pleasant 75 y.o. male with a history of prior CAD with PCI in 2012 to the circumflex who follows at [facility] with Dr Belle for cardiology. He is admitted for spinal surgery. He has no anginal symptoms, reports PALOMO but not very active due to back/leg weakness. He had a normal stress test in May 2024 as below. PAST MEDICAL HISTORY: SOCIAL HISTORY He reports that he has never smoked. He has never used smokeless tobacco. He reports that he does not drink alcohol and does not use drugs. FAMILY HISTORY Family History Problem Relation Age of Onset Heart Disease - Other Father Heart Failure Father Diabetes Father Cancer Mother Heart Disease - Other Mother Hypertension Mother Heart Disease - Other Sister Hypertension Sister PAST MEDICAL HISTORY Past Medical History[1] PAST SURGICAL HISTORY Past Surgical History[2] ALLERGIES Allergies[3] HOME MEDICATIONS Prescriptions Prior to Admission[4] CURRENT MEDICATIONS Docusate 100 mg Oral BID Ezetimibe 10 mg Oral QHS Insulin lispro Subcutaneous 4x daily w/meals, HS Levothyroxine 50 mcg Oral Daily Lisinopril 20 mg Oral Daily Nortriptyline 25 mg Oral QHS Pantoprazole 40 mg Oral Daily Rosuvastatin 10 mg Oral Daily Senna 8.6 mg Oral Daily REVIEW OF SYSTEMS: A full 12 point review of systems was performed and was negative unless otherwise noted. PHYSICAL EXAM: Intake/Output Summary (Last 24 hours) at 03/06/2025 1149 Last data filed at 03/06/2025 0430 Gross per 24 hour Intake 300 ml Output 200 ml Net 100 ml Temp: [97.4 F (36.3 C)-98.1 F (36.7 C)] 98.1 F (36.7 C) Pulse (Heart Rate): [72-94] 94 Resp Rate: [16] 16 BP: (125-145)/(63-87) 125/87 O2 Sat (%): [95 %-98 %] 97 % BP 125/87 (BP Location: Right arm, BP Position: Sitting) Pulse 94 Temp 98.1 F (36.7 C) (Oral) Resp 16 SpO2 97% Smoking Status Never General: alert, no distress, no slurred speech or respiratory distress Neurologic: alert and oriented to person, place, time and situation HEENT: EOMI, no pharyngeal exudate, Atraumatic Neck: Midline trachea, no JVD CV: heart rate normal, regular rhythm, no murmurs appreciated. Respiratory: lungs clear to auscultation bilaterally , symmetric chest rise, no increased work of breathing Extremities: no peripheral edema, radial pulses normal and symmetric Skin: warm, dry, no rashes DATA REVIEWED: Lab Results Component Value Date SODIUM 140 03/05/2025 SODIUM 137 05/07/2013 SODIUM 135 07/15/2012 POTASSIUM 3.5 03/05/2025 POTASSIUM 3.7 05/07/2013 POTASSIUM 3.8 07/15/2012 POTASSIUM 4.60 04/12/2003 GLUCOSE 65 (L) 03/06/2025 GLUCOSE 123 (H) 05/07/2013 GLUCOSE 134 (H) 07/20/2012 CHLORIDE 104 03/05/2025 CHLORIDE 103 05/07/2013 CHLORIDE 112 (H) 07/15/2012 CO2 27 03/05/2025 CO2 26 05/07/2013 CO2 14.4 02/24/2005 BUN 9 03/05/2025 BUN 14 05/07/2013 CREATSERUM 0.93 03/05/2025 CREATSERUM 1.30 05/07/2013 Lab Results Component Value Date WBC 10.23 (H) 03/05/2025 WBC 11.4 (H) 05/07/2013 HGB 14.0 03/05/2025 HGB 15.9 05/07/2013 HCT 43.0 03/05/2025 HCT 47.8 05/07/2013 HCT 34.0 (L) 04/12/2003 PLATELET 245 03/05/2025 PLATELET 282 05/07/2013 MCV 98.9 (H) 03/05/2025 MCV 93.2 05/07/2013 No results found for: TROP, BNP ECG, personally reviewed, none recent on file Echo and stress results from cardiology clinic note November 2024, reviewed on 's phone Echo with LVEF 60% 05/29/24 Stress test (unclear type) 05/30/24 with no ischemia or infarction [1] Past Medical History: Diagnosis Date Anemia BPH (benign prostatic hyperplasia) Brain abscess CAD (coronary artery disease) Colon polyp Diabetes mellitus GERD (gastroesophageal reflux disease) High cholesterol HTN (hypertension) Nephrolithiasis RAFAEL (obstructive sleep apnea) Primary adrenal deficiency Stroke Stroke-like episode x3 Syncope Thalamic infarction TIA (transient ischemic attack) [2] Past Surgical History: Procedure Laterality Date LOOP RECORDER IMPLANTATION 05/07/2013 Surgeon: Huy Romo MD; Location: [facility] EP LAMINECTOMY VERTEBRAL SEGMENT LUMBAR 07/15/2012 Laterality: Midline; Surgeon: Trinidad Wiseman MD, PhD; Location: [facility] MAIN OR FUSION POSTERIOR LUMBAR 07/15/2012 Laterality: Midline; Surgeon: Trinidad Wiseman MD, PhD; Location: [facility] MAIN OR INSERTION SPINAL INSTRUMENTATION POSTERIOR NONSEGMENTAL ADD-ON PX 07/15/2012 Laterality: Midline; Surgeon: Trinidad Wiseman MD, PhD; Location: [facility] MAIN OR HERNIA REPAIR 2008 BRAIN SURGERY 2002 BACK SURGERY 1984 BRAIN MENINGIOMA EXCISION COMPLETE EXTRACTION OF TEETH WISDOM TEETH EXTRACTION [3] Allergies Allergen Reactions Acetaminophen Dilaudid [Hydromorphone] Confusion Penicillins Hives and Rash [4] Medications Prior to Admission Medication Sig Dispense Refill Last Dose/Taking Dapagliflozin Pro-metFORMIN ER 5-1000 MG Tab SR 24 HR Take 2 tablets by mouth daily. 03/05/2025 donepezil 5 MG tablet Take 1 tablet by mouth At bedtime. 03/05/2025 ezetimibe (ZETIA) 10 MG PO TABS Take 1 tablet by mouth at bedtime. 03/05/2025 Evening gliMEPIride 1 MG tablet Take 2 tablets by mouth 2 times daily. (Patient taking differently: Take 4 tablets by mouth daily every morning.) 03/05/2025 Morning Levothyroxine 50 MCG tablet Take 1 tablet by mouth daily. 03/05/2025 Morning lisinopril 20 MG Tab Take 1 tablet by mouth daily. 03/05/2025 Evening metoprolol 25 MG PO tab regular release Take 1 tablet by mouth 2 times daily. 03/05/2025 Evening Mounjaro 10 MG/0.5ML Solution Auto-injector Inject 10 mg as directed once a week. 03/05/2025 Nintedanib Esylate (Ofev) 150 MG capsule Take 1 capsule by mouth 2 times daily. 03/05/2025 nortriptyline 25 MG PO CAPS Take 1 capsule by mouth at bedtime. 03/05/2025 Evening oxybutynin 5 MG PO TABS Take 2 tablets by mouth 2 times daily. 03/05/2025 Evening pantoprazole [address] Take 1 tablet by mouth daily. 03/05/2025 Morning rosuvastatin 10 MG Tab tablet Take 1 tablet by mouth daily. 03/05/2025 Evening Vitamin D3 2000 UNITS PO CAPS Take 2 capsules by mouth at bedtime. (Patient taking differently: Take 5,000 capsules by mouth at bedtime.) 03/05/2025 Evening Adalimumab (HUMIRA) 10 MG/0.1ML Prefilled Syringe Kit Inject under the skin. (Patient not taking: Reported on 01/11/2025) clopidogrel (PLAVIX) 75 MG PO TABS Take 1 tablet by mouth at bedtime. 03/04/2025 Cyanocobalamin (B-12) 100 MCG tablet Take 1 tablet by mouth daily. (Patient not taking: Reported on 01/11/2025) finasteride 5 MG Tab tablet Take 1 tablet by mouth daily. (Patient not taking: Reported on 01/11/2025) Gabapentin 300 MG capsule Take 1 capsule by mouth 3 (three) times a day. (Patient not taking: Reported on 01/11/2025) Synjardy XR 12.5-1000 MG Tab SR 24 HR Take 12.5-1,000 mg by mouth daily. Tamsulosin HCl 0.4 MG PO CAPS Take 2 capsules by mouth at bedtime. (Patient not taking: Reported on 01/11/2025) Trulicity 1.5 MG/0.5ML Solution Auto-injector injection Inject 0.5 mL as directed once a week. (Patient not taking: Reported on 01/11/2025) documented in this encounter [facility] 03-06-2025 Hospital Discharge instructions Gabrielle Cavazos MD - 03/06/2025 10:40 AM EDT IMPORTANT INFORMATION - Do not take Plavix, this medication will be on hold until your day of surgery. - Do not take Mounjaro medication until instructed, will be hold for your upcoming day of surgery. Contact information: You may call your neurosurgeon s office, , Saturday through Saturday between 8:30am and 4:30pm if you have questions. The outpatient nurse may also be available to answer questions at that time. For after hours or the weekend, you may call the office which will take you to the answering service. Do not take Plavix, this medication will be on hold until your day of surgery. Can take aspirin as prescribed You may receive a survey in the mail within a few weeks regarding your hospitalization. This helps us to improve the care and services we provide at [facility]. We truly appreciate you taking the time to fill this out. We particularly welcome any specific comments you may have (positive or constructive regarding your experience at [facility] so that we may continue to strive towards excellence for our patients. Gabrielle Cavazos MD - 03/06/2025 12:22 PM EDT Please read below for specific medications instructions before surgery. Do not take your Lisinopril on the day of surgery Do not take Plavix moving forward (this medication will be on hold for surgery preparation, and you will be instructed when to restart after surgery). We will place on aspirin in exchange of plavix and take aspirin as prescribed until the day of surgery Do not take Mounjaro until instructed to do so, this will be on hold for surgery preparation Stop taking apagliflozin-metformin combination pill 72 HOURS BEFORE day of surgery documented in this encounter [facility] 03-06-2025 Plan of care note Problem: Adult Inpatient Plan of Care Goal: Plan of Care Review Outcome: Progressing Goal: Optimal Comfort and Wellbeing Outcome: Progressing [facility] 03-06-2025 Miscellaneous Notes Problem: Adult Inpatient Plan of Care Goal: Plan of Care Review Outcome: Progressing Goal: Optimal Comfort and Wellbeing Outcome: Progressing HOME MEDICATIONS Paged resident Dr Mayo RAGSDALE 97Misty- Shannen Lemons- Pt reports home medications ordered at wrong times and some arent ordered. I have updated up home medications, can you review and order please? Thanks, Rylee [id number] Hypoglycemia BG 59. Pt A&O x4. Follows commands and denies signs or symptoms of hypoglycemia. 1.5 tubes for glucose 15 administered. Pt given a peanut butter and jelly sandwich. BG rechecked for [address] Mayo RAGSDALE 978 Azalea Lemons FYI hypoglycemic this morning. Lowest BG 59. A&Ox4. 2.5 tubes of glucose administered. BG now 85 and pt eating breakfast. Thanks Rylee [id number] Problem: Adult Inpatient Plan of Care Goal: Plan of Care Review Outcome: Progressing Goal: Patient-Specific Goal (Individualized) Outcome: Progressing Goal: Absence of Hospital-Acquired Illness or Injury Outcome: Progressing Goal: Optimal Comfort and Wellbeing Outcome: Progressing Goal: Readiness for Transition of Care Outcome: Progressing Paged NS3 evening resident Dr. Giovanni Lemons [id number] Pt has arrived to the unit, need orders for him please, thank you! Sarah [phone] On admission to [facility], from home a dual RN initial assessment of skin condition was performed by Lex Hurst RN and Inna. Skin Assessment: Skin within defined limits:Yes LDA Added:No Lex Hurst RN documented in this encounter [facility] 03-06-2025 Nurse Note HOME MEDICATIONS Paged resident Dr Mayo RAGSDALE 978- Cristo,T- Pt reports home medications ordered at wrong times and some arent ordered. I have updated up home medications, can you review and order please? Thanks, Rylee [id number] [facility] 03-06-2025 Nurse Note Hypoglycemia BG 59. Pt A&O x4. Follows commands and denies signs or symptoms of hypoglycemia. 1.5 tubes for glucose 15 administered. Pt given a peanut butter and jelly sandwich. BG rechecked for [address] Mayo RAGSDALE 978 Cristo, T- FYI hypoglycemic this morning. Lowest BG 59. A&Ox4. 2.5 tubes of glucose administered. BG now 85 and pt eating breakfast. Thanks Rylee [id number] [facility] 03-06-2025 Consult note Associated Order (s): IP CONSULT TO CARDIOLOGY Images from the original note were not included. CARDIOLOGY CONSULT Patient Name: Gracie Lemons Date of Consult: 03/06/2025 Reason for Consultation: pt with extensive cardiac history on plavix, thoracic disc herniation leading to progressive weakness. appreciate pre op risk stratification prior to OR on 03/11 Referred by: Doretha Brandon MD ASSESSMENT AND PLAN: Gracie Leomns is a 75 y.o. male with a history of CAD as outlined admitted before thoracic disc herniation surgery. CARDIOLOGY PROBLEM LIST Pre op cardiovascular risk stratification CAD with PCI to the OM/Cx in 2012, NOT in the setting of an [place] HTN Reportedly 1 episode of AF with no recurrence, has not bee on anticoagulation HLD Other Problems: Thoracic disc herniation LE weakness Pulmonary fibrosis with prior Bx S/p TURP RAFAEL ASSESSMENT: He has < 4 METS of activity but his ROACH and NSQIP risks are all < 1%, AND he had a normal stress test in May 2024 at his local cardiologists office in [place], [place] (his had records which I reviewed). RECOMMENDATIONS: He does NOT need further cardiac testing other than a baseline ECG to have on file. He can proceed with surgery otherwise with above risk of MACE perioperatively IDEALLY he is on 81 mg aspirin daily with presence of prior coronary stent. Thus, if the surgery can be performed on this, would restart aspirin in place of plavix. IF surgery canNOT be performed on aspirin, then reasonable to hold both aspirin and plavix as he was off plavix for procedures earlier this year and did ok (though that is no guarantee) and restart after surgery as soon as able Continue metoprolol 25 mg BID through perioperative period HOLD lisinopril day of surgery His med list reports dapagliflozin-metformin combination pill, this should be held 72h before surgery These recommendations were communicated to the primary team by [facility]. Thank you for allowing us to participate in the care of this patient. If you have further questions please do not hesitate to contact the Cardiology Consult service through [facility]. We will sign off. Lynne Salguero MD Lead Mechanic, Internal Medicine [employer] OPER[employer] Program: [facility] Adult Congenital Heart Disease and Pulmonary Hypertension Program [facility] [place], [place] [email or web address] Pager: [phone] This note was generated using voice recognition system. Unfortunately this may lead to occasional typographical errors - there may be some incorrect words, spellings and punctuation. I apologize in advance if the situation occurs. If questions occur please page me. HISTORY OF PRESENT ILLNESS: It was my pleasure to see Mr. Gracie Lemons in consultation at the [facility] on 03/06/2025 for evaluation of his pre op eval. He is a pleasant 75 y.o. male with a history of prior CAD with PCI in 2012 to the circumflex who follows at [facility] with Dr Belle for cardiology. He is admitted for spinal surgery. He has no anginal symptoms, reports PALOMO but not very active due to back/leg weakness. He had a normal stress test in May 2024 as below. PAST MEDICAL HISTORY: SOCIAL HISTORY He reports that he has never smoked. He has never used smokeless tobacco. He reports that he does not drink alcohol and does not use drugs. FAMILY HISTORY Family History Problem Relation Age of Onset Heart Disease - Other Father Heart Failure Father Diabetes Father Cancer Mother Heart Disease - Other Mother Hypertension Mother Heart Disease - Other Sister Hypertension Sister PAST MEDICAL HISTORY Past Medical History[1] PAST SURGICAL HISTORY Past Surgical History[2] ALLERGIES Allergies[3] HOME MEDICATIONS Prescriptions Prior to Admission[4] CURRENT MEDICATIONS Docusate 100 mg Oral BID Ezetimibe 10 mg Oral QHS Insulin lispro Subcutaneous 4x daily w/meals, HS Levothyroxine 50 mcg Oral Daily Lisinopril 20 mg Oral Daily Nortriptyline 25 mg Oral QHS Pantoprazole 40 mg Oral Daily Rosuvastatin 10 mg Oral Daily Senna 8.6 mg Oral Daily REVIEW OF SYSTEMS: A full 12 point review of systems was performed and was negative unless otherwise noted. PHYSICAL EXAM: Intake/Output Summary (Last 24 hours) at 03/06/2025 1149 Last data filed at 03/06/2025 0430 Gross per 24 hour Intake 300 ml Output 200 ml Net 100 ml Temp: [97.4 F (36.3 C)-98.1 F (36.7 C)] 98.1 F (36.7 C) Pulse (Heart Rate): [72-94] 94 Resp Rate: [16] 16 BP: (125-145)/(63-87) 125/87 O2 Sat (%): [95 %-98 %] 97 % BP 125/87 (BP Location: Right arm, BP Position: Sitting) Pulse 94 Temp 98.1 F (36.7 C) (Oral) Resp 16 SpO2 97% Smoking Status Never General: alert, no distress, no slurred speech or respiratory distress Neurologic: alert and oriented to person, place, time and situation HEENT: EOMI, no pharyngeal exudate, Atraumatic Neck: Midline trachea, no JVD CV: heart rate normal, regular rhythm, no murmurs appreciated. Respiratory: lungs clear to auscultation bilaterally , symmetric chest rise, no increased work of breathing Extremities: no peripheral edema, radial pulses normal and symmetric Skin: warm, dry, no rashes DATA REVIEWED: Lab Results Component Value Date SODIUM 140 03/05/2025 SODIUM 137 05/07/2013 SODIUM 135 07/15/2012 POTASSIUM 3.5 03/05/2025 POTASSIUM 3.7 05/07/2013 POTASSIUM 3.8 07/15/2012 POTASSIUM 4.60 04/12/2003 GLUCOSE 65 (L) 03/06/2025 GLUCOSE 123 (H) 05/07/2013 GLUCOSE 134 (H) 07/20/2012 CHLORIDE 104 03/05/2025 CHLORIDE 103 05/07/2013 CHLORIDE 112 (H) 07/15/2012 CO2 27 03/05/2025 CO2 26 05/07/2013 CO2 14.4 02/24/2005 BUN 9 03/05/2025 BUN 14 05/07/2013 CREATSERUM 0.93 03/05/2025 CREATSERUM 1.30 05/07/2013 Lab Results Component Value Date WBC 10.23 (H) 03/05/2025 WBC 11.4 (H) 05/07/2013 HGB 14.0 03/05/2025 HGB 15.9 05/07/2013 HCT 43.0 03/05/2025 HCT 47.8 05/07/2013 HCT 34.0 (L) 04/12/2003 PLATELET 245 03/05/2025 PLATELET 282 05/07/2013 MCV 98.9 (H) 03/05/2025 MCV 93.2 05/07/2013 No results found for: TROP, BNP ECG, personally reviewed, none recent on file Echo and stress results from cardiology clinic note November 2024, reviewed on 's phone Echo with LVEF 60% 05/29/24 Stress test (unclear type) 05/30/24 with no ischemia or infarction [1] Past Medical History: Diagnosis Date Anemia BPH (benign prostatic hyperplasia) Brain abscess CAD (coronary artery disease) Colon polyp Diabetes mellitus GERD (gastroesophageal reflux disease) High cholesterol HTN (hypertension) Nephrolithiasis RAFAEL (obstructive sleep apnea) Primary adrenal deficiency Stroke Stroke-like episode x3 Syncope Thalamic infarction TIA (transient ischemic attack) [2] Past Surgical History: Procedure Laterality Date LOOP RECORDER IMPLANTATION 05/07/2013 Surgeon: Huy Romo MD; Location: [facility] LAMINECTOMY VERTEBRAL SEGMENT LUMBAR 07/15/2012 Laterality: Midline; Surgeon: Trinidad Wiseman MD, PhD; Location: [facility] MAIN OR FUSION POSTERIOR LUMBAR 07/15/2012 Laterality: Midline; Surgeon: Trinidad Wiseman MD, PhD; Location: [facility] OR INSERTION SPINAL INSTRUMENTATION POSTERIOR NONSEGMENTAL ADD-ON PX 07/15/2012 Laterality: Midline; Surgeon: Trinidad Wiseman MD, PhD; Location: [facility] MAIN OR HERNIA REPAIR 2008 BRAIN SURGERY 2002 BACK SURGERY 1985 BRAIN MENINGIOMA EXCISION COMPLETE EXTRACTION OF TEETH WISDOM TEETH EXTRACTION [3] Allergies Allergen Reactions Acetaminophen Dilaudid [Hydromorphone] Confusion Penicillins Hives and Rash [4] Medications Prior to Admission Medication Sig Dispense Refill Last Dose/Taking Dapagliflozin Pro-metFORMIN ER 5-1000 MG Tab SR 24 HR Take 2 tablets by mouth daily. 03/05/2025 donepezil 5 MG tablet Take 1 tablet by mouth At bedtime. 03/05/2025 ezetimibe (ZETIA) 10 MG PO TABS Take 1 tablet by mouth at bedtime. 03/05/2025 Evening gliMEPIride 1 MG tablet Take 2 tablets by mouth 2 times daily. (Patient taking differently: Take 4 tablets by mouth daily every morning.) 03/05/2025 Morning Levothyroxine 50 MCG tablet Take 1 tablet by mouth daily. 03/05/2025 Morning lisinopril 20 MG Tab Take 1 tablet by mouth daily. 03/05/2025 Evening metoprolol 25 MG PO tab regular release Take 1 tablet by mouth 2 times daily. 03/05/2025 Evening Mounjaro 10 MG/0.5ML Solution Auto-injector Inject 10 mg as directed once a week. 03/05/2025 Nintedanib Esylate (Ofev) 150 MG capsule Take 1 capsule by mouth 2 times daily. 03/05/2025 nortriptyline 25 MG PO CAPS Take 1 capsule by mouth at bedtime. 03/05/2025 Evening oxybutynin 5 MG PO TABS Take 2 tablets by mouth 2 times daily. 03/05/2025 Evening pantoprazole [address] Take 1 tablet by mouth daily. 03/05/2025 Morning rosuvastatin 10 MG Tab tablet Take 1 tablet by mouth daily. 03/05/2025 Evening Vitamin D3 2000 UNITS PO CAPS Take 2 capsules by mouth at bedtime. (Patient taking differently: Take 5,000 capsules by mouth at bedtime.) 03/05/2025 Evening Adalimumab (HUMIRA) 10 MG/0.1ML Prefilled Syringe Kit Inject under the skin. (Patient not taking: Reported on 01/11/2025) clopidogrel (PLAVIX) 75 MG PO TABS Take 1 tablet by mouth at bedtime. 03/04/2025 Cyanocobalamin (B-12) 100 MCG tablet Take 1 tablet by mouth daily. (Patient not taking: Reported on 01/11/2025) finasteride 5 MG Tab tablet Take 1 tablet by mouth daily. (Patient not taking: Reported on 01/11/2025) Gabapentin 300 MG capsule Take 1 capsule by mouth 3 (three) times a day. (Patient not taking: Reported on 01/11/2025) Synjardy XR 12.5-1000 MG Tab SR 24 HR Take 12.5-1,000 mg by mouth daily. Tamsulosin HCl 0.4 MG PO CAPS Take 2 capsules by mouth at bedtime. (Patient not taking: Reported on 01/11/2025) Trulicity 1.5 MG/0.5ML Solution Auto-injector injection Inject 0.5 mL as directed once a week. (Patient not taking: Reported on 01/11/2025) [facility] 03-06-2025 Reason for visit Narrative Specialty Diagnoses / Procedures Referred By Lisette t Referred To Contact Diagnoses Spinal cord compression Doretha Brandon MD [address] [facility] [address] [place] [address] Phone: tel: fax: [facility] [address] [place] [address] Referral ID Status Reason Start Date Expiration Date Visits Re quested Visits Authorized [id number] 1 1 [facility]09-20-2025 Plan of care note* Plan of Care - Sarah Pepper RN - 03/06/2025 12:58 AM EDT Problem: Adult Inpatient Plan of Care Goal: Plan of Care Review Outcome: Progressing Goal: Patient-Specific Goal (Individualized) Outcome: Progressing Goal: Absence of Hospital-Acquired Illness or Injury Outcome: Progressing Goal: Optimal Comfort and Wellbeing Outcome: Progressing Goal: Readiness for Transition of Care Outcome: Progressing [facility]09-19-2025 Nurse Note* Nursing Notes - Sarah Pepper RN - 03/05/2025 7:33 PM EDT Paged NS3 evening resident Dr. Giovanni Lemons [id number] Pt has arrived to the unit, need orders for him please, thank you! [facility] [phone] [facility]* Nursing Notes - Lex Hurst RN - 03/05/2025 6:52 PM EDT On admission to [facility], from home a dual RN initial assessment of skin condition was performed by Lex Hurst RN and Inna. Skin Assessment: Skin within defined limits:Yes LDA Added:No Lex Hurst [facility] Radiology Diagnostic study note [facility] [address] [place] [address] Shoulder min 2 Views MR#: [id number] Acct: [id number] Name: GRACIE LEMONS Rep #: [id number] : 1950 M 75 From: Betina Greene MD PCP: Dr. Armando Kohli MD Status: REG C KHANH Study:Shoulder min 2 Views Date of Exam: 02/04/25 Exam# [id number] Ordering Dr: Armando Kohli MD PROCEDURE: SHOULDER MIN 2 VIEWS 02/04/2025 REASON FOR EXAM: SHOULDER PAIN TECHNIQUE: SHOULDER MIN 2 VIEWS Laterality: Right COMPARISON: None. FINDINGS: BONES: No acute fracture or focal osseous lesion. JOINTS: No dislocation. Mild arthritic changes of the glenohumeral joint with minimal marginal osteophytes.Preserved acromioclavicular joint. SOFT TISSUES: The soft tissues are unremarkable. RAD/Shoulder min 2 Views IMPRESSION: No acute osseous abnormality. Reading Location: [id number] CC: Dr. 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 Armando Kohli MD Status: REG C KHANH Study:Chest without Contrast Date of Exam: 01/12/25 Exam# [id number] Ordering Dr: Marjan Rasmussen MD PROCEDURE: CHEST WITHOUT CONTRAST 01/12/2025 REASON FOR EXAM: PULMONARY FIBROSIS TECHNIQUE: Chest CT without contrast. Coronal and Sagittal reconstruction series were provided. One or more dose reduction techniques were used (e.g., Automated exposure control, adjustment of the mA and/or kV according to patient size, use of iterative reconstruction technique RADIATION DOSE SUMMARY: CTDlvol: 18 mGy DLP: 583 mGycm COMPARISON: 08/05/2024 FINDINGS: Central airways are patent. Bilateral lower lobe bronchiectasis. Postinflammatory scarring in the lingular segment, right middle lobe, and bilateral lower lobes. However, previously noted multifocal areas of ground-glass airspace disease, roughly in the same areas, is intervally resolved. There is no new consolidation, effusionor pneumothorax. No suspicious lung nodules. Unremarkable base of neck and axilla. Thoracic spine scoliosis and degeneration. Normal esophagus. Upper limits of normal heart size. No acute vascular pathology. No acute chest wall findings. Multiple old left-sided rib fractures. Old left scapular fracture. Noacute upper abdominal findings. CT/Chest without Contrast IMPRESSION: Interval clearing of bilateral multifocal areas of ground-glass airspace diseasewhich may have beeninfectious/inflammatory in etiology. Bilateral lung scarring. Reading Location: [place] [address] CC: Dr. Armando Kohli MD; Dr. 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 SUBJECTIVE: Chief Complaint / Reason for Visit: Lower extremity weakness HPI: This is a very pleasant 75-year-old gentleman with a history of multiple prior lumbar surgeries with instrumented fusion from L3-S1. The patient reports of repeat episodes of weakness in his lower extremities. He states that he feels like his legs give out. This commonly occurs during weight-bearing activity. He denies any pain in his lower extremities. He does have a baseline footdrop attributable to his prior lumbar surgeries. He denies any issues with his hands or arms. He comes in today forsurgical evaluation. Review of Systems: 14-point review of systems negative except for findings noted in HPI HISTORY: ALLERGIES: Acetaminophen, Dilaudid [hydromorphone], and Penicillins MEDICATIONS: Current Outpatient Medications Medication Sig Last Dose Start Date End Date Authorizing Provider clopidogrel (PLAVIX) 75 MG PO TABS 75 mg, DAILY AT BEDTIME Taking Historical Provider ezetimibe (ZETIA) 10 MG PO TABS 1 tablet, DAILY AT BEDTIME Taking Historical Provider gliMEPIride 1 MG tablet 2 mg, 2 TIMES DAILY Patient taking differently: Take 2 tablets by mouth 2 times daily. Pt taking 4 mg 1 time a day Taking 06/14/23 Historical Provider Levothyroxine 50 MCG tablet 50 mcg, DAILY Taking 05/04/24 Historical Provider lisinopril 20 MG Tab 20 mg, DAILY Taking Historical Provider nortriptyline 25 MG PO CAPS 1 capsule, DAILY AT BEDTIME Taking Historical Provider oxybutynin 5 MG PO TABS 10 mg, DAILY AT BEDTIME Taking Historical Provider pantoprazole [address] 1 tablet, DAILY Taking Historical Provider rosuvastatin 10 MG Tab tablet 10 mg, DAILY Taking Historical Provider Vitamin D3 2000 UNITS PO CAPS 2 capsules, DAILY AT BEDTIME Patient taking differently: Take 5,000 capsules by mouth at bedtime. Taking Historical Provider Adalimumab (HUMIRA) 10 MG/0.1ML Prefilled Syringe Kit Inject under the skin. Patient not taking: Reported on 01/11/2025 Not Taking Historical Provider Cyanocobalamin (B-12) 100 MCG tablet 100 mcg, DAILY Patient not taking: Reported on 01/11/2025 Not Taking 08/24/24 Historical Provider finasteride 5 MG Tab tablet 5 mg, DAILY Patient not taking: Reported on 01/11/2025 Not Taking Historical Provider Gabapentin 300 MG capsule 1 capsule, 3 times daily Patient not taking: Reported on 01/11/2025 Not Taking 04/17/24 Historical Provider metoprolol 25 MG PO tab regular release 25 mg, 2 TIMES DAILY Patient not taking: Reported on 01/11/2025 Not Taking Historical Provider Synjardy XR 12.5-1000 MG Tab SR 24 HR 12.5-1,000 mg, DAILY 03/04/24 Historical Provider Tamsulosin HCl 0.4 MG PO CAPS 2 capsules, DAILY AT BEDTIME Patient not taking: Reported on 01/11/2025 Not Taking Historical Provider Trulicity 1.5 MG/0.5ML Solution Auto-injector injection 1.5 mg, WEEKLY Patient not taking: Reported on 01/11/2025 Not Taking 05/11/24 Historical Provider PAST MEDICAL HISTORY: Past Medical History: Diagnosis Date Anemia BPH (benign prostatic hyperplasia) Brain abscess CAD (coronary artery disease) Colon polyp Diabetes mellitus GERD (gastroesophageal reflux disease) High cholesterol HTN (hypertension) Nephrolithiasis RAFAEL (obstructive sleep apnea) Primary adrenal deficiency Stroke Stroke-like episode x3 Syncope Thalamic infarction TIA (transient ischemic attack) PAST SURGICAL HISTORY: Past Surgical History: Procedure Laterality Date LOOP RECORDER IMPLANTATION 05/07/2013 Surgeon: Huy Romo MD; Location: [facility] EP LAMINECTOMY VERTEBRAL SEGMENT LUMBAR 07/15/2012 Laterality: Midline; Surgeon: Trinidad Wiseman MD, PhD; Location: [facility] MAIN OR FUSION POSTERIOR LUMBAR 07/15/2012 Laterality: Midline; Surgeon: Trinidad Wiseman MD, PhD; Location: [facility] MAIN OR INSERTION SPINAL INSTRUMENTATION POSTERIOR NONSEGMENTAL ADD-ON PX 07/15/2012 Laterality: Midline; Surgeon: Trinidad Wiseman MD, PhD; Location: [facility] MAIN OR HERNIA REPAIR 2009 BRAIN SURGERY 2002 BACK SURGERY 1985 BRAIN MENINGIOMA EXCISION COMPLETE EXTRACTION OF TEETH WISDOM TEETH EXTRACTION FAMILY HISTORY: Family History Problem Relation Age of Onset Heart Disease - Other Father Heart Failure Father Diabetes Father Cancer Mother Heart Disease - Other Mother Hypertension Mother Heart Disease - Other Sister Hypertension Sister SOCIAL HISTORY: reports that he has never smoked. He has never used smokeless tobacco. He reports that he does not drink alcohol and does not use drugs. OBJECTIVE: Vitals: 01/11/25 1420 BP: 103/64 Pulse: 77 Temp: 98.4 degrees F (36.9 degrees C) TempSrc: Infrared SpO2: 91% Weight: 85.4 kg (188 lb 4.8 oz) Height: 1.651 m (5' 5) PHYSICAL EXAM: General: Patient is well appearing and in no apparent distress. AOX3 Grossly full strength in the upper and lower extremities bilaterally and symmetrically except for 4+ out of 5 in the left lower extremity IMAGING STUDIES: These were personally reviewed and the reads below are my own interpretations MRI lumbar spine 08/25/2024: No significant central canal stenosis. MRA angiogram of the lumbar spine 08/25/2024: Normal study ASSESSMENT & PLAN: Principal Problem: Lower extremity weakness Plan: rGacie Lemons presents with signs and symptoms of intermittent episodes of lower extremity weakness.His lumbar spine MRI is clean. I recommend updating imaging to evaluate the spinal cord in cervicothoracic spine. Prior workup from the Neurology team was also concerned about a dural arteriovenous fistula. This is a possible differential, however only imaging of the lumbar spine was performed. We will order an MRI of the cervical and thoracic spine I will call the patient after workup is complete. Doretha Brandon MD Chief Quality Officer Department of Neurosurgery [facility] documented in this [facility]07-28-2025 Instructions* Patient Instructions* Avril Rahman RN - 01/11/2025 2:30 PM EDT MRI Cervical & Thoracic & Dr Brandon will call you with results [facility] Miscellaneous Notes* Addendum Note - Avril Rahman RN - 01/11/2025 2:30 PM EDTAddended by: AVRIL RAHMAN on: 01/11/2025 03:12 PM Modules accepted: [facility] Note* Addendum Note - Avril Rahman RN - 01/11/2025 2:30 PM EDTAddended by: AVRIL RAHMAN on: 01/11/2025 03:12 PM Modules accepted: Orders [facility]06-27-2025 Evaluation note* Diagnosis Onset Date Resolution Status Admit Date Coronary artery disease chronic J une 2024 2:27pm Dyslipidemia chronic December 11 025 2:27pm Essential hypertension chronic Ju ne 2024 2:27pm Presence of stent in coronar y artery April, chronic December 11, 2024 2:27pm [facility] Work Phone: 1(700) 629-404306-27-2025 Evaluation note* Diagnosis Onset Date Resolution Status Admit Date Coronary artery disease chronic J une 2024 2:27pm PALOMO (dyspnea on exertion) chronic December 11, 2024 2:27pm Dyslipidemia chronic December 11 025 2:27pm Essential hypertension chronic Ju ne 2024 2:27pm Presence of stent in coronar y artery April, chronic December 11, 2024 2:27pm [facility] Work Phone: 1(706) 795-806406-15-2025 Radiology Diagnostic study note [facility] [address] [place] [id number] Chest 1 View (Portable) MR#: [id number] Acct: [id number] Name: GRACIE LEMONS Rep #: [id number] : 1950 M 74 From: Destiney Benavidez MD PCP: Dr. Armando Kohli MD Status: REG E R Study:Chest 1 View (Portable) Date of Exam: 11/29/24 Exam# [id number] Ordering Dr: Reyes Quiroz DO PROCEDURE: CHEST 1 VIEW (PORTABLE) 11/29/2024 REASON FOR EXAM: CHEST PAIN TECHNIQUE: Frontal view of the chest. COMPARISON: 08/19/2024 FINDINGS: No focal consolidations. Bibasilar subsegmental atelectasis. Mild pulmonary vascular congestion. Nopleural effusion or pneumothorax. Cardiac silhouette is unchanged. RAD/Chest 1 View (Portable) IMPRESSION: No focal consolidations. Bibasilar subsegmental atelectasis. Mild pulmonary vascular congestion. Reading Location: [id number] CC: Dr. Kaleb Quiroz DO; Dr. 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 Dejah Brennan from [facility]. Patient is a 74 year old male cortes with increasing symptoms >1 year. Clinician considered hypersen sitivity pneumonitis but CT ? UIPF classic. Patient has past exposure nos. He is SOB. Ground glass & reticular pattern. BAL with 77% lymphocytes. Patient on humira for psoriatic arthritis. Inflammatory panel negative. R/O drug-induced pneumonitis. Clinical diagnosis = pulmonary fibrosisOur Lady Of Mercy Hospital - AndersonComment on above:Performed By: #### ICRESP #### [facility] (DEFAULT) [address] [place] [address] [id number] History of Present illness Narrative* Nirav Melissa MD - 08/25/2024 2:45 PM EDT Images from the original note were not included. [facility] Neuromuscular Disorders [facility] Gracie Lemons 1950 SIRI: 08/25/2024 We had the pleasure of seeing Gracie Lemons at the [facility] here for follow-up [...] spine. The nerve conduction test revealed neuropathy. Anorthopedic doctor did not identify any issues related [...] gland, which was resected. This resulted in somenumbness and tingling in his right leg. He has had multiple staph infections following surgery, which were treated with IV antibiotics. He also has foot drop in his left leg, which started after backsurgery. He has noticed a decline in his [...] continues to feel tired. He sees a finisher hand who did a lung biopsy and he may have pulmonaryfibrosis. He is exhausted frequently with any exertion. [...] history that includes back surgery (1984); brain surgery(2002); hernia repair (2008); wisdom teeth extraction; complete [...] his mother; Diabetes in his father; Heart Disease- Other in his father, mother, and sister; [...] following by the white scale on the [employer] Custom tuning fork (out of 8): Right Left [...] any additional information, please let me know. Nirav Melissa MD Lead Mechanic, Neurology Neuromuscular Division documented [facility] Instructions* Patient Instructions* Nirav Melissa MD - 08/25/2024 2:45 PM EDT You can stop the gabapentin. documented in this [facility]02-12-2025 [facility]12-08-2024 NoteHNO ID: [id number] Author: CHRISTOFER ALSTON APRN.HOTEL OR MOTEL MANAGER Service: ? Author Type: Nurse Practitioner Type: Progress Notes Filed: 05/24/2024 13:59 Note Text: This note was created using PROSimity. Subjective Gracie Lemons is a 74 year [...] discussion patient was agreeable to go to [place] emergency department for evaluation. Christofer Alston APRN.YVETTESelect Medical [facility]12-08-2024 History of Present illness Narrative* Christofer Alston APRN.YVETTE - 05/24/2024 1:46 PM EST Images from the original note were not included. This note was created using Re[employer] Electricriter. Subjective Gracie Lemons is a 74 year [...] needed higher level of evaluation and recommended goingto the nearest emergency department for evaluation. After discussion patient was agreeable to go [facility] emergency department for evaluation. Christofer Alston APRN.YVETTE [facility] History of Present illness Narrative* Nirav Melissa MD - 05/12/2024 1:45 PM EST [facility] Neuromuscular Disorders [facility] Gracie Lemons 1950 SIRI: 05/12/2024 We had the pleasure of seeing Gracie Lemons at the [facility] for in consultation for neuropathy. HISTORY OF [...] spine. The nerve conduction test revealed neuropathy. Anorthopedic doctor did not identify any issues related [...] gland, which was resected. This resulted in somenumbness and tingling in his right leg. He has had multiple staph infections following surgery, which were treated with IV antibiotics. He also has foot drop in his left leg, which started after backsurgery. He has noticed a decline in his [...] history that includes back surgery (1984); brain surgery(2002); hernia repair (2008); wisdom teeth extraction; complete [...] lb 9.6 oz) BMI 36.21 kg/m Smoking StatusNever GENERAL: Well developed, well nourished in no [...] following by the white scale on the [employer] tuning fork (out of 8): Right Left [...] any additional information, please let me know. Nirav Melissa MD Lead Mechanic, Neurology Neuromuscular Division documented in this [facility]11-26-2024 Instructions* Patient Instructions* Nirav Melissa MD - 05/12/2024 1:45 PM EST We will get nerve and muscle testing We will get a picture of your lower back We will get labs today- first floor documented in this [facility]11-19-2024 Evaluation note * Diagnosis Onset Date Resolution Status Admit Date Coronary artery disease chronic N ov2023 2:12pm Diabetes chronic November 19th, 2024 2:12pm 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 chronic Nove mber 2023 2:12pm Dyslipidemia april 2:12pm Essential hypertension chronic No vember 2023 2:12pm Obesity chronic May 05, 2024 2:12pm Presence of stent in coronary artery April, chronic May 05, 2 024 2:12pm Fatigue chronic May 07, 2024 7:44am [facility] Work Phone: 1(700) 712-513311-01-2013 Evaluation note* Diagnosis Onset Date Resolution Status Sinus tachycardia acute Essential hypertension chron ic Paroxysmal atrial fibrillation chronic Presence of stent in coronary artery April, chronic Pure hypercholesterolemia [facility] Work Phone: 1(364) 683-736811-01-2013 Evaluation note* Diagnosis Onset Date Resolution Status Sinus tachycardia acute Essential hypertension chron ic Paroxysmal atrial fibrillation chronic Presence of stent in coronary artery April, chronic Pure hypercholesterolemia ch ronic Chest pain acute PALOMO (dyspnea on exertion) ac ricci Fatigue acute Atherosclerotic heart diseas e of lummi coronary artery without angina pectoris chronic Essential hypertension chron ic Paroxysmal atrial fibrillation chronic Presence of stent in coronary artery April, chronic Pure hypercholesterolemia [facility] Work Phone: 1(367) 626-535511-01-2013 Evaluation note* Diagnosis Onset Date Resolution Status Atherosclerotic heart diseas e of lummi coronary artery without angina pectoris chronic Essential hypertension chron ic Paroxysmal atrial fibrillation chronic Presence of stent in coronary artery April, chronic Pure hypercholesterolemia [facility] Work Phone: 1(144) 259-818011-01-2013 Evaluation note* Diagnosis Onset Date Resolution Status Atherosclerotic heart diseas e of lummi coronary artery without angina pectoris chronic Essential hypertension chron ic Paroxysmal atrial fibrillation chronic Presence of stent in coronary artery April, chronic Pure hypercholesterolemia ch ronic Diabetic autonomic neuropath y associated with secondary diabetes mellitus acute [facility] Work Phone: Evaluation noteNo assessment information available [facility] Work Phone: Evaluation note* Diagnosis Onset Date Resolution Status Chest pain acute Atherosclerotic heart diseas e of lummi coronary artery without angina pectoris chronic PALOMO (dyspnea on exertion) ch ronic Essential hypertension chron ic Fatigue chronic Paroxysmal atrial fibrillation chronic Presence of stent in coronary artery April, chronic Pure hypercholesterolemia ch ronic Atherosclerotic heart diseas e of lummi coronary artery without angina pectoris chronic PALOMO (dyspnea on exertion) ch ronic Essential hypertension chron ic Fatigue chronic Paroxysmal atrial fibrillation chronic Presence of stent in coronary artery April, chronic Pure hypercholesterolemia [facility] Work Phone: Evaluation note* Diagnosis Onset Date Resolution Status Chest pain acute Atherosclerotic heart diseas e of lummi coronary artery without angina pectoris chronic PALOMO (dyspnea on exertion) ch ronic Essential hypertension chron ic Fatigue chronic Paroxysmal atrial fibrillation chronic Presence of stent in coronary artery April, chronic Pure hypercholesterolemia ch ronic Atherosclerotic heart diseas e of lummi coronary artery without angina pectoris chronic PALOMO (dyspnea on exertion) ch ronic Essential hypertension chron ic Fatigue chronic Paroxysmal atrial fibrillation chronic Presence of stent in coronary artery April, chronic Pure hypercholesterolemia ch ronic Atherosclerotic heart diseas e of lummi coronary artery without angina pectoris chronic Essential hypertension chron ic Paroxysmal atrial fibrillation chronic Presence of stent in coronary artery April, chronic Pure hypercholesterolemia [facility] Work Phone: Evaluation note* Diagnosis Onset Date Resolution Status Diabetic autonomic neuropath y associated with secondary diabetes mellitus [facility] Work Phone: Evaluation note* Diagnosis Onset Date Resolution Status Atherosclerotic heart diseas e of lummi coronary artery without angina pectoris chronic PALOMO (dyspnea on exertion) ch ronic Essential hypertension chron ic Fatigue chronic Paroxysmal atrial fibrillation chronic Pure hypercholesterolemia ch ronic Polyneuropathy acute Abnormality of gait and mobility chronic Left foot drop chronic Low back pain [facility] Work Phone: Evaluation note* Diagnosis Onset Date Resolution Status Abnormality of gait and mobility chronic Fatigue chronic Left foot drop chronic Polyneuropathy chronic [facility] Work Phone: Evaluation note* Diagnosis Onset Date Resolution Status Abnormality of gait and mobility chronic Fatigue chronic Left foot drop chronic Polyneuropathy chronic Fatigue [facility] Work Phone: Evaluation note* Diagnosis Onset Date Resolution Status Fatigue chronic Polyneuropathy chronic Fatigue chronic Diabetic autonomic neuropath y associated with secondary diabetes mellitus acute Coronary artery disease buffer chrome jose de jesus Diabetes chronic Dyslipidemia chronic Essential hypertension chron ic History of atrial fibrillation chronic Obesity chronic Polyneuropathy chronic Presence of stent in coronary artery April, chronic Fatigue chronic Fatigue [facility] Work Phone: Evaluation note* Diagnosis Onset Date Resolution Status Fatigue chronic Fatigue chronic Fatigue [facility] Work Phone: Evaluation note* Diagnosis Onset Date Resolution Status Fatigue chronic Fatigue chronic Fatigue chronic Fatigue [facility] Work Phone: Evaluation note* Diagnosis Lumbar radiculopathy- Primary Thoracic or lumbosacral neuritis or radiculitis, unspecified Type 2 diabetes mellitus with diabetic neuropathy, without long-term current use of insulin [facility] Diagnosis Facial cellulitis- Primary Cellulitis and abscess of face [facility] Lumbar radiculopathy Thoracic or lumbosacral neuritis or radiculitis, unspecified Lumbar radiculopathy Thoracic or lumbosacral neuritis or radiculitis, unspecified [facility] Diagnosis Lumbar radiculopathy- Primary Thoracic or lumbosacral neuritis or radiculitis, unspecified [facility] Diagnosis Lumbar radiculopathy Thoracic or lumbosacral neuritis or radiculitis, unspecified [facility] Diagnosis Lumbar radiculopathy Thoracic or lumbosacral neuritis or radiculitis, unspecified [facility] Diagnosis Onset Date Resolution Status Admit Date Coronary artery disease chronic J une 2024 2:27pm Dyslipidemia chronic December 11 2:27pm Essential hypertension chronic Ju ne 2024 2:27pm Presence of stent in coronar y artery April, chronic December 11, 2024 2:27pm [facility] Work Phone: Evaluation note* Diagnosis Lumbar radiculopathy- Primary Thoracic or lumbosacral neuritis or radiculitis, unspecified Paraparesis Paralysis, unspecified [facility] Diagnosis Lumbar radiculopathy Thoracic or lumbosacral neuritis or radiculitis, unspecified [facility] Diagnosis Lumbar radiculopathy Thoracic or lumbosacral neuritis or radiculitis, unspecified Paraparesis Paralysis, unspecified [facility] Diagnosis Thoracic spinal stenosis- Primary Spinal stenosis of thoracic region 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, thoracic region [facility] Diagnosis Aftercare following surgery- Primary Encounter for other specified aftercare Pleural effusion Unspecified pleural effusion Parkinsonism, unspecified Parkinsonism type S/P spinal surgery Other postprocedural status Electrolyte disorder (K, Cl, or Na) Electrolyte and fluid disorders not elsewhere classified Pleural effusion Unspecified pleural effusion [facility] Diagnosis Unstageable pressure ulcer of buttock (HCC)- Primary [facility] Diagnosis Status post discectomy- Primary Other postprocedural status Status post discectomy Other postprocedural status [facility] Diagnosis Weakness of extremity- Primary [facility]* Diagnosis Spinal cord compression- Primary Unspecified disease of spinal cord S/P discectomy Other postprocedural status [facility]No reason for referral information availableWWilson Health Work Phone: Reason for referral (narrative)* Unlisted Procedure Code (Routine) - New Request Specialty Diagnoses / Procedures Referred By Lisette t Referred To Contact Procedures DVT/VTE RISK ASSESSMENT Dorehta Brandon MD [address] [place] [address] [address] [place] [address] Phone: tel: fax: Referral ID Status Reason Start Date Expiration Date V isits Requested Visits Authorized [id number] New Request 03/05/2025 03/30/2026 1 1 * Radiology (Routine) - New Request Specialty Diagnoses / Procedures Referred By Lisette t Referred To Contact Procedures ECG Doretha Brandon MD [address] [facility] [address] [place] [address] Phone: tel: fax: Referral ID Status Reason Start Date Expiration Date V isits Requested Visits Authorized [id number] New Request 03/05/2025 03/30/2026 1 1 [facility] for visit Narrative* MRI/CAT Scan (Routine) - New Request Specialty Diagnoses / Procedures Referred By Contac t Referred To Contact Diagnoses Lumbar radiculopathy Procedures MRI ANGIO SPINE AK MRA, W/O&W/DYE, SPINAL CANAL Nirav Melissa MD [address] [address] Phone: tel: fax: Referral ID Status Reason Start Date Expiration Date V isits Requested Visits Authorized [id number] New Request 05/12/2024 06/06/2025 1 1 [facility] for visit Narrative* MRI/CAT Scan (Routine) - New Request Specialty Diagnoses / Procedures Referred By Contac t Referred To Contact Diagnoses Lumbar radiculopathy Procedures MRI SPINE LUMBAR WITHOUT CONTRAST CHG MRI SPINAL CANAL LUMBAR W/O CONTRAST MATERIAL Nirav Melissa MD [address] [address] Phone: tel: fax: Referral ID Status Reason Start Date Expiration Date V isits Requested Visits Authorized [id number] New Request 05/12/2024 06/06/2025 1 1 [facility] for visit Narrative* MRI/CAT Scan (Routine) - New Request Specialty Diagnoses / Procedures Referred By Contac t Referred To Contact Diagnoses Lumbar radiculopathy Paraparesis Procedures MRI SPINE CERVICAL WITHOUT CONTRAST CHG MRI SPINAL CANAL CERVICAL W/O CONTRAST MATRL Doretha Brandon MD Phone: tel: fax: Referral ID Status Reason Start Date Expiration Date V isits Requested Visits Authorized [id number] New Request 01/21/2025 02/15/2026 1 1 [facility] for visit Narrative* MRI/CAT Scan (Routine) - New Request Specialty Diagnoses / Procedures Referred By Lisette arroyo Referred To Contact Diagnoses Lumbar radiculopathy Paraparesis Procedures MRI SPINE THORACIC WITHOUT CONTRAST CHG MRI SPINAL CANAL THORACIC W/O CONTRAST MATRL Doretha Brandon MD Phone: tel: fax: Referral ID Status Reason Start Date Expiration Date V isits Requested Visits Authorized [id number] New Request 01/21/2025 02/15/2026 1 1 [facility] for visit Narrative* Auth/Cert Specialty Diagnoses / Procedures Referred By Lisette arroyo Referred To Contact Diagnoses 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 [M51.24] Thoracic disc disease with myelopathy [M51.04] Procedures AK ARTHRD ANT INTERBODY MIN DSC THORACIC AK VERTEBRAL CORPECTOMY DCMPRN CORD THORACIC 1 SEG AK AUTOGRAFT SPINE SURGERY LOCAL FROM SAME INCISION [place] ARTHRD ANT INTERBODY MIN DSC LUMBAR FUSION EXTREME LATERAL INTERBODY LUMBAR CORPECTOMY VERTEBRAL W/ DECOMPRESSION TRANSTHORACIC APPROACH GRAFT SPINE SURGERY ONLY AUTOGRAFT POSTERIOR ADD-ON PX Doretha Brandon MD [address] [place] [address] [address] [place] [address] Phone: tel: fax: [facility] [address] [place] [address] Referral ID Status Reason Start Date Expiration Date Visits Re quested Visits Authorized [id number] 1 1 [facility]* Auth/Cert (Routine) Specialty Diagnoses / Procedures Referred By Lisette arroyo Referred To Contact Referral ID Status Reason Start Date Expiration Date Visits Re quested Visits Authorized [id number] 1 1 [facility] Advance Directives No Advanced Directives Records FoundLatest Code Status on File Code Status Date Activated Date Inactivated Comments Full Code 07/15/2012 8:52 PM 07/20/2012 4:19 PM Advance Directive Response Recorded Date/ Time Living Will Yes December 28, 2019 8:54pm Power of Research Technician Yes December 27 0 8:54pm Advance Directive Response Recorded Date/ Time Living Will Yes December 28, 2019 7:54pm Power of Research Technician Yes December 27 7:54pm Date Activated Date Inactivated Comments 07/15/2012 8:52 PM 07/20/2012 4:19 PM Date Activated Date Inactivated Comments 07/15/2012 8:52 PM 07/20/2012 4:19 PM Advance Directive Response Recorded Date/ Time Living Will Yes December 28, 2019 8:54pm Power of Research Technician Yes December 27 8:54pm Living Will Yes May 22 10:12pm Power of Research Technician Yes May 22, 2024 10:12pm Name of Medical Power of Research Technician May 22, 2024 10:12pm Living Will No May 24 3:17pm Power of Research Technician No May 24, 2024 3:17pm Living Will Yes July 29 6:07pm Power of Research Technician Yes July 29, 2024 6:07pm Name of Medical Power of Research Technician July 29, 2024 6:07pm Living Will Yes August 14 11:42am Power of Research Technician Yes August 14, 2024 11:42am Name of Medical Power of Research Technician DEVANG Rehmanek August 14, 2024 11:42am Advance Directive Response Recorded Date/ Time Living Will Yes May 22 10:12pm Do you have a Healthcare Pow er of Research Technician? Yes May 22, 2024 10:12pm Name of Medical Power of Research Technician May 22, 2024 10:12pm Living Will No May 24 3:17pm Do you have a Healthcare Pow er of Research Technician? No May 24, 2024 3:17pm Living Will Yes July 29 6:07pm Do you have a Healthcare Pow er of Research Technician? Yes July 29, 2024 6:07pm Name of Medical Power of Research Technician July 29, 2024 6:07pm Living Will Yes August 14 11:42am Do you have a Healthcare Pow er of Research Technician? Yes August 14, 2024 11:42am Name of Medical Power of Research Technician DEVANG Lemons August 14, 2024 11:42am Advance Directive Response Recorded Date/ Time Living Will Yes February 12th, 2 025 6:07pm Do you have a Healthcare Pow er of Research Technician? Yes July 29, 2024 6:07pm Name of Medical Power of Research Technician July 29, 2024 6:07pm Living Will Yes August 14 11:42am Do you have a Healthcare Pow er of Research Technician? Yes August 14, 2024 11:42am Name of Medical Power of Research Technician DEVANG Lemons August 14, 2024 11:42am Advance Directive Response Recorded Date/ Time Living Will Yes August 14 11:42am Do you have a Healthcare Pow er of Research Technician? Yes August 14, 2024 11:42am Name of Medical Power of Research Technician DEVANG Lemons August 14, 2024 11:42am Do you have a Healthcare Pow er of Research Technician? Yes November 29, 2024 3:38pm Name of Medical Power of Research Technician Idalia Lemons November 29, 2024 3:38pm Advance Directive Response Recorded Date/ Time Do you have a Healthcare Power of Research Technician? 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 Advance Directives/Living Will 03/15/2025 9:51 AM Living Will HealthCare Power of Research Technician 03/15/2025 9:50 AM HCPOA Date Activated Date Inactivated Comments 03/11/2025 9:25 PM Date Activated Date Inactivated Comments 03/05/2025 7:41 PM 03/11/2025 9:25 PM Date Activated Date Inactivated Comments 07/15/2012 8:52 PM 07/20/2012 4:19 PM Documents on File Type Date Recorded 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 Advance Directives and Livin g Will 03/24/2025 10:21 AM living will Power of Research Technician 03/24/2025 poa Date Activated Date Inactivated Comments 03/24/2025 11:53 AM Date Activated Date Inactivated Comments 03/23/2025 8:45 AM 03/24/2025 11:53 AM Date Activated Date Inactivated Comments 03/24/2025 11:53 AM 04/07/2025 4:09 PM Documents on File Type Date Recorded 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 Advance Directives/Living Will 03/15/2025 9:51 AM Living Will HealthCare Power of Research Technician 03/15/2025 9:50 AM HCPOA Date Activated Date Inactivated Comments 03/11/2025 9:25 PM Date Activated Date Inactivated Comments 03/05/2025 7:41 PM 03/11/2025 9:25 PM Date Activated Date Inactivated Comments 07/15/2012 8:52 PM 07/20/2012 4:19 PM Family History No Family History Records Found [...] on exertion) Fatigue Atherosclerotic heart disease of lummi coronary artery without angina pectoris Essential hypertension Paroxysmal atrial fibrillation Presence of stent in coronary artery Pure hypercholesterolemia Chief Complaint 6 M FU E ORDER-MOODISPAW 3 M FU E ORDER DYSPNEA Reason for Visit Sinus tachycardia Essential hypertension Paroxysmal atrial fibrillation Presence of stent in coronary artery Pure hypercholesterolemia Chest pain PALOMO (dyspnea on exertion) Fatigue Atherosclerotic heart disease of lummi coronary artery without angina pectoris Essential hypertension Paroxysmal atrial fibrillation Presence of stent in coronary artery Pure hypercholesterolemia Chief Complaint 3 M FU E ORDER DYSPNEA 4-6 wk fu LEG NUMBNESS Reason for Visit Chest pain Atherosclerotic heart disease of lummi coronary artery without angina pectoris PALOMO (dyspnea on exertion) Essential hypertension Fatigue Paroxysmal atrial fibrillation Presence of stent in coronary artery Pure hypercholesterolemia Atherosclerotic heart disease of lummi coronary artery without angina pectoris PALOMO (dyspnea on exertion) Essential hypertension Fatigue Paroxysmal atrial fibrillation Presence of stent in coronary artery Pure hypercholesterolemia Chief Complaint 3 M FU E ORDER DYSPNEA 4-6 wk fu LEG NUMBNESS BILAT LOWER EXT LEG NUMBNESS Cough 6 M FU Reason for Visit Chest pain Atherosclerotic heart disease of lummi coronary artery without angina pectoris PALOMO (dyspnea on exertion) Essential hypertension Fatigue Paroxysmal atrial fibrillation Presence of stent in coronary artery Pure hypercholesterolemia Atherosclerotic heart disease of lummi coronary artery without angina pectoris PALOMO (dyspnea on exertion) Essential hypertension Fatigue Paroxysmal atrial fibrillation Presence of stent in coronary artery Pure hypercholesterolemia Atherosclerotic heart disease of lummi coronary artery without angina pectoris Essential hypertension Paroxysmal atrial fibrillation Presence of stent in coronary artery Pure hypercholesterolemia Chief Complaint BILAT LOWER EXT LEG NUMBNESS Cough 6 M FU ABNORMAL NC STUDY Reason for Visit Atherosclerotic hear t disease of lummi coronary artery without angina pectoris Essential hypertension Paroxysmal atrial fibrillation Presence of stent in coronary artery Pure hypercholesterolemia Chief Complaint BILAT LOWER EXT LEG NUMBNESS Cough 6 M FU ABNORMAL NC STUDY lumber spine Rm 2 xray DYSPHAGIA *12MM TABLET* Reason for Visit Atherosclerotic hear t disease of lummi coronary artery without angina pectoris Essential hypertension [...] for Visit Atherosclerotic hear t disease of lummi coronary artery without angina pectoris PALOMO (dyspnea on exertion) Essential hypertension Fatigue Paroxysmal atrial fibrillation Pure hypercholesterolemia Polyneuropathy Abnormality of gait and mobility Left foot drop Low back pain Chief Complaint Type 2 diabetes sissy itus with hyperglycemia 6 M FU Weakness EORDER DROP FOOT RX HERE REDRAW SCANNED ORDER Reason for Visit Atherosclerotic hear t disease of lummi coronary artery without angina pectoris PALOMO (dyspnea on exertion) Essential hypertension Fatigue Paroxysmal atrial fibrillation Pure hypercholesterolemia Polyneuropathy Abnormality of gait and mobility Left foot drop Low back pain Chief Complaint DROP FOOT RX HERE REDRAW SCANNED ORDER 4 mon f/u EORDER 2 ORDERING DRS/EORDER & PAPER Reason for Visit Abnormality of gait and mobility Fatigue Left foot drop Polyneuropathy Chief Complaint REDRAW SCANNED ORDER 4 mon f/u EORDER 2 ORDERING DRS/EORDER & PAPER b12 Reason for Visit Abnormality of gait and mobility Fatigue Left foot drop Polyneuropathy Fatigue Chief Complaint 4 mon f/u EORDER 2 ORDERING DRS/EORDER & PAPER b12 6 M FU/PREV PFM [...] 2:12pm 3 ORDERING JOSE ROBERTO GARCIA FROM NANDO Babb [facility] 2023 7:23am B12 inject May 07, 2024 7:44am [...] 2:12pm Presence of stent in coronary artery [facility] 2023 2:12pm Fatigue May 07, 2024 7:44am [...] PULMONARY FIBROSIS August 19, 2024 9:00 am Chief Complaint Admit Date CHRONIC COUGH August 05, 2024 7:46am PULMONARY FIBROSIS August 19, 2024 9:00 am chest pain November 29, 2024 3:30 pm Chief Complaint Admit Date PULMONARY FIBROSIS August 19, 2024 9:00 am chest pain November 29, 2024 3:30 pm 6 M FU December 11, 2024 2:27 pm Reason for Visit Admit Date Coronary artery disease December 11, 2024 2:27pm Dyslipidemia December 11, 2024 2:27 pm Essential hypertension December 11, 2024 2 :27pm Presence of stent in coronary artery Reese e 2024 2:27pm Chief Complaint Admit Date chest pain November 29, 2024 3:30 pm 6 M FU December 11, 2024 2:27 pm FATIGUE December 31, 2024 9:02 am Reason for Visit Admit Date Coronary artery disease December 11, 2024 2:27pm PALOMO (dyspnea on exertion) December 11 2:27pm Dyslipidemia December 11, 2024 2:27 pm Essential hypertension December 11, 2024 2 :27pm Presence of stent in coronary artery Reese e 2024 2:27pm Chief Complaint Admit Date chest pain November 29, 2024 3:30 pm 6 M FU December 11, 2024 2:27 pm FATIGUE December 31, 2024 9:02 am LABS January 11, 2025 8:33 am Pulmonary fibrosis, unspecified December 6:02pm Chief Complaint Admit Date chest pain November 29, 2024 3:30 pm 6 M FU December 11, 2024 2:27 pm FATIGUE December 31, 2024 9:02 am LABS January 11, 2025 8:33 am Pulmonary fibrosis, unspecified December 6:02pm HIGH RESOLUTION PULM FIBRO January 27, 2025 9:46am RIGHT SHOULDER PAIN February 04, 2025 3: 31pm Chief Complaint Admit Date chest pain November 29, 2024 3:30 pm 6 M FU December 11, 2024 2:27 pm FATIGUE December 31, 2024 9:02 am LABS January 11, 2025 8:33 am Pulmonary fibrosis, unspecified December 6:02pm HIGH RESOLUTION PULM FIBRO January 27, 2025 9:46am RIGHT SHOULDER PAIN February 04, 2025 3: 31pm RIGHT SHOULDER DECREASED ROM January 10:40am Chief Complaint Admit Date chest pain November 29, 2024 3:30 pm 6 M FU December 11, 2024 2:27 pm FATIGUE December 31, 2024 9:02 am LABS January 11, 2025 8:33 am Pulmonary fibrosis, unspecified December 6:02pm HIGH RESOLUTION PULM FIBRO January 27, 2025 9:46am BLE EDEMA January 27, 2025 9: 56am RIGHT SHOULDER PAIN February 04, 2025 3: 31pm RIGHT SHOULDER DECREASED ROM January 10:40am Chief Complaint Admit Date chest pain November 29, 2024 3:30 pm 6 M FU December 11, 2024 2:27 pm FATIGUE December 31, 2024 9:02 am LABS January 11, 2025 8:33 am Pulmonary fibrosis, unspecified December 6:02pm HIGH RESOLUTION PULM FIBRO January 27, 2025 9:46am BLE EDEMA January 27, 2025 9: 56am RIGHT SHOULDER PAIN February 04, 2025 3: 31pm RIGHT SHOULDER DECREASED ROM January 10:40am LABS/S/O February 25, 2025 8:57am Reason for Referral Specialty Diagnoses / Procedures Referred By Contac t Referred To Contact Diagnoses Lumbar radiculopathy Procedures EMG & NERVE CONDUCTION Nirav Melissa MD [address] [address] Referral ID Status Reason Start Date Expiration Date V isits Requested Visits Authorized [id number] New Request 05/12/2024 06/06/2025 1 1 Specialty Diagnoses / Procedures Referred By Contac t Referred To Contact Diagnoses Lumbar radiculopathy Nirav Melissa MD [address] [address] Referral ID Status Reason Start Date Expiration Date V isits Requested Visits Authorized [id number] New Request 05/12/2024 06/06/2025 1 1 Scheduling Instructions [facility] [place] (Orthopedic, Sports Rehab) [address], [address], [place] [address] Outpatient Care [place] (Burn, Neurological, Orthopedic, Pelvic Health, Sports Rehab) [address] [facility], [address], [place] [address] Outpatient Care [facility] (Orthopedic Rehab) [address] [facility], [address], [place] [address] Outpatient Care [place] (Orthopedic, Pelvic Health, Sports) [address] [facility], [address], [place] [address] Outpatient Care [facility] [address] [facility] [facility], [address], [place] [address] Outpatient Care [place] (Orthopedic, Pelvic Health, Sports Rehab) [address], [address], [place] [address] Outpatient Care [facility] (Aquatic, Burn, Neurological, Orthopedic, Pelvic Health Rehab) [address] [facility] [address] Outpatient Care [place] (Burn, Neurological, Orthopedic, Pelvic Health, Sports Rehab) [address] [facility], [address], [place] [address] Outpatient Rehabilitation [facility] (Neurological, Orthopedic Rehab) [address] [place] [address] Outpatient Rehabilitation [facility] (Aquatic, Burn, Neurological, Orthopedic, Pelvic Health Rehab) [address] , [place] [address] Outpatient Rehabilitation [place] (Burn, Neurological, Orthopedic Rehab) [address] [place] [address] Sports Medicine [facility] at [facility] (Orthopedic, Sports Rehab) [address] [facility], [address], [place] [address] Sports Medicine Rehabilitation [facility] [facility] (Orthopedic, Sports Rehab) [address], [address], [place] [address] Sports Medicine Rehabilitation [facility] (Orthopedic, Sports Rehab) [address], [place] [address] Sports Medicine Rehabilitation [facility] (Aquatic, Orthopedic, Pelvic Health, Sports Rehab) [address], [place] [address] Sports Medicine Rehabilitation [facility] (Orthopedic, Sports Rehab) [address] [place] [address] Sports Medicine Rehabilitation [facility] (Orthopedic, Sports Rehab) [address] [facility], [place] [address] Specialty Diagnoses / Procedures Referred By Contac t Referred To Contact Diagnoses Lumbar radiculopathy Procedures MRI SPINE LUMBAR WITHOUT CONTRAST CHG MRI SPINAL CANAL LUMBAR W/O CONTRAST MATERIAL Nirav Melissa MD [address] [address] Referral ID Status Reason Start Date Expiration Date V isits Requested Visits Authorized [id number] New Request 05/12/2024 06/06/2025 1 1 Specialty Diagnoses / Procedures Referred By Contac t Referred To Contact Diagnoses Lumbar radiculopathy Procedures MRI ANGIO SPINE AK MRA, W/O&W/DYE, SPINAL CANAL Nirav Melissa MD [address] [address] Referral ID Status Reason Start Date Expiration Date V isits Requested Visits Authorized [id number] New Request 05/12/2024 06/06/2025 1 1 Summary Purpose Additional Source Comments Reason for Visit (unrecogniz ed section and content) Reason Comments Change In Symptoms Reason Comments New Patient Specialty Diagnoses / Procedures Referred By Contac t Referred To Contact Neurology Diagnoses Polyneuropathy Armando Kohli MD [address] [facility] [address] [place] [address] [facility] [address] [place] [address] Referral ID Status Reason Start Date Expiration Date V isits Requested Visits Authorized [id number] New Request 01/29/2024 02/22/2025 1 1 Reason Comments Facial Swelling right side facial sw elling, redness and painful x 1, started inside of left side nose now right side face swelling Specialty Diagnoses / Procedures Referred By Contac t Referred To Contact Diagnoses Lumbar radiculopathy Procedures EMG & NERVE CONDUCTION Nirav Melissa MD [address] [address] Referral ID Status Reason Start Date Expiration Date V isits Requested Visits Authorized [id number] New Request 05/12/2024 06/06/2025 1 1 Reason Comments Follow-up Reason Comments New Patient Specialty Diagnoses / Procedures Referred By Contac t Referred To Contact Spine Diagnoses Lumbar radiculopathy Nirav Melissa MD [address] [address] Phone: tel: fax: Referral ID Status Reason Start Date Expiration Date V isits Requested Visits Authorized [id number] New Request 01/01/2025 01/26/2026 1 1 Specialty Diagnoses / Procedures Referred By Contac t Referred To Contact Neurology Diagnoses Parkinsonism, unspecified Parkinsonism type Sandhya Pompa MD [address] [place] [address] Phone: tel: fax: Referral ID Status Reason Start Date Expiration Date V isits Requested Visits Authorized [id number] New Request 03/16/2025 04/10/2026 1 1 Reason Comments Surgical Follow-up [id number] lateral retropl eural discectomy Goals (unrecognized section and content) Goals may [...] Status: Active Member Role Status Dates Dr. Armando Kohli MD Family Provider Active Dr. Armando Kohli MD Primary Care Provider Active Team Status: Inactive Member Role Status Dates Dr. Armando Kohli MD Primary Care Provider, Referring Provider Active Dr. Armando Acevedo MD Attending Provider Active Team Status: Inactive Member Role Status Dates Dr. Armando Kohli MD Primary Care Provi coral, Attending Provider, Referring Provider Active Dr. Marjan Rasmussen MD Other Provider Active Team Status: Inactive Member Role Status Dates Dr. Armando Kohli MD Primary Care Provider, Attending Provider Active Team Status: Inactive Member Role Status Dates Dr. Armando Kohli MD Primary Care Provider Active Dr. Marjan Rasmussen MD Attending Provider Active Team Status: Inactive Member Role Status Dates Dr. Armando Kohli MD Primary Care Provi coral, Attending Provider, Referring Provider Active Team Status: Inactive Member Role Status Dates Dr. Armando Kohli MD Primary Care Provider, Referring Provider Active Dr. Vamsi Story DO Attending Provider Active Team Status: Inactive Member Role Status Dates Dr. Armando Kohli MD Primary Care Provider Active Dr. Art Plummer MD Attending Provider Active Team Status: Inactive Member Role Status Dates Dr. Armando Kohli MD Primary Care Provider Active Dr. Petr Kim MD Attending Provider, Referring Provider Active Team Status: Active Member Role Status Dates Dr. Armanod Kohli MD Primary Care Provider Active Dr. Jg Valle MD Attending Provider, Referring Pro vider Active Team Status: Inactive Member Role Status Dates Dr. Armando Kohli MD Primary Care Provider Active Dr. Jg Valle MD Attending Provider, Referring Pro vider Active Team Status: Inactive Member Role Status Dates Dr. Armando Kohli MD Primary Care Provider Active Dr. Maxwell Torres DO Attending Provider, Referring Provider Active Team Status: Inactive Member Role Status Dates Dr. Armando Kohli MD Primary Care Provider, Referring Provider Active Anmol Ventura DATA ENTRY SUPERVISOR, DATA ENTRY SUPERVISOR-C Attending Provider Active Team Status: Inactive Member Role Status Dates Dr. Armando Kohli MD Primary Care Provider, Referring Provider Active Dr. Tino Gamble MD Attending Provider Active Team Status: Active Member Role Status Dates Dr. Armando Kohli MD Primary Care Provider Active Dr. Tino Gamble MD Attending Provider, Referring Provider Active Team Status: Inactive Member Role Status Dates Dr. Armando Kohli MD Primary Care Provider Active Dr. Tino Gamble MD Attending Provider, Referring Provider Active Team Status: Inactive Member Role Status Dates Dr. Armando Kohli MD Primary Care Provider Active Dr. Maxwell Torres DO Attending Provider, Referring Provider Active Anmol Ventura DATA ENTRY SUPERVISOR, DATA ENTRY SUPERVISOR-C Other Provider Active Team Status: Inactive Member Role Status Dates Dr. Armando Kohli MD Primary Care Provider Active Dr. Avinash Lombardi MD Attending Provider, Referr ing Provider Active Team Status: Inactive Member Role Status Dates Dr. Armando Kohli MD Primary Care Provider, Referring Provider Active Dr. Alyson Collier MD Attending Provider Active Team Status: Inactive Member Role Status Dates Dr. Armando Kohli MD Primary Care Provider Active Tita GREENE, PA Attending Provider, Referring P rovider Active Dr. Jg Valle MD Other Provider Active Reimbursement Consultant Relationship Specialty Start Date End Date Armando Kohli MD [address] [facility] [address] [place] [address] PCP - General Family Medicine 10/08/18 Colleen Franco DO [address] [facility] [address] [place] [address] Internal Medicine 06/02/12 Reimbursement Consultant Relationship Specialty Start Date End Date Armando Kohli MD [address] [facility] [address] [place] [address] PCP - General Family Medicine 10/08/18 Colleen Franco DO [address] [facility] [address] [place] [address] Internal Medicine 06/02/12 Reimbursement Consultant Relationship Specialty Start Date End Date Armando Kohli MD [address] [facility] [address] [place] [address] PCP - General Family Medicine 10/08/18 Colleen Franco DO [address] [facility] [address] [place] [address] Internal Medicine 06/02/12 Reimbursement Consultant Relationship Specialty Start Date End Date Armando Kohli MD [address] [facility] [address] [place] [address] PCP - General Family Medicine 10/08/18 Colleen Franco DO [address] [facility] [address] [place] [address] Internal Medicine 06/02/12 Reimbursement Consultant Relationship Specialty Start Date End Date Armando Kohli MD [address] [facility] [address] [place], [place] [address] PCP - General Family Medicine 10/08/18 Colleen Franco DO [address] [facility] [address] [place] [address] Internal Medicine 06/02/12 Team Status: Active Member Role Status Dates Dr. Armando Kohli MD Primary Care Provider Active Team Status: Inactive Member Role Status Dates Dr. Armando Kohli MD Primary Care Provider Active Start: May 05, 2024 End: May 05, 2024 Dr. Armando Kohli MD Referring Provider Active Start: May 05, 2024 End: May 05, 2024 Dr. Alyson Collier MD Attending Provider Active Start: May 05, 2024 End: May 05, 2024 Team Status: Inactive Member Role Status Dates Dr. Armando Kohli MD Primary Care Provider Active Start: May 07, 2024 End: May 07, 2024 Dr. Armando Kohli MD Other Provider Active Star t: May 07, 2024 End: May 07, 2024 Augusto GREENE PA Attending Provider Active Start: May 07, 2024 End: May 07, 2024 Augusto GREENE PA Referring Provider Active Start: May 07, 2024 End: May 07, 2024 Dr. Alyson Collier MD Other Provider Active Star t: May 07, 2024 End: May 07, 2024 Team Status: Inactive Member Role Status Dates Dr. Armando Kohli MD Primary Care Provider Active Start: May 07, 2024 End: May 07, 2024 Dr. Tino Gamble MD Attending Provider Active Start: May 07, 2024 End: May 07, 2024 Dr. Tino Gamble MD Referring Provider Active Start: May 07, 2024 End: May 07, 2024 Team Status: Inactive Member Role Status Dates Dr. Armando Kohli MD Primary Care Provider Active Start: May 22, 2024 End: May 23, 2024 Dr. Chito Munoz DO Attending Provider Active Start : May 22, 2024 End: May 23, 2024 Dr. Chito Munoz DO Emergency Provider Active Start : May 22, 2024 End: May 23, 2024 Team Status: Inactive Member Role Status Dates Dr. Armando Kohli MD Primary Care Provider Active Start: May 24, 2024 End: May 24, 2024 Dr. Edilberto Manuel DO Attending Provider Active Start: May 24, 2024 End: May 24, 2024 Dr. Edilberto Manuel DO Emergency Provider Active Start: May 24, 2024 End: May 24, 2024 Team Status: Inactive Member Role Status Dates Dr. Armando Kohli MD Primary Care Provider Active Start: May 29, 2024 End: May 29, 2024 Dr. Alyson Collier MD Attending Provider Active Start: May 29, 2024 End: May 29, 2024 Dr. Alyson Collier MD Referring Provider Active Start: May 29, 2024 End: May 29, 2024 Team Status: Active Member Role Status Dates Dr. Armando Kohli MD Primary Care Provider Active Start: May 29, 2024 Dr. Leeanne Blanca MD Attending Provider Activ e Start: May 29, 2024 Team Status: Active Member Role Status Dates Dr. Armando Kohli MD Primary Care Provider Active Start: June 02, 2024 Dr. Alyson Collier MD Referring Provider Active Start: June 02, 2024 Dr. Alyson Collier MD Other Provider Active Star t: June 02, 2024 Dr. Leeanne Blanca MD Attending Provider Activ e Start: June 02, 2024 Team Status: Inactive Member Role Status Dates Dr. Armando Kohli MD Primary Care Provider Active Start: June 29, 2024 End: June 29, 2024 FÉLIX GASTELUM Attending Provider Active Start: June 29, 2024 End: June 29, 2024 FÉLIX GASTELUM Referring Provider Active Start: June 29, 2024 End: June 29, 2024 Team Status: Inactive Member Role Status Dates Dr. Armando Kohli MD Primary Care Provider Active Start: [...] Status: Inactive Member Role Status Dates Dr. Armando Kohli MD Primary Care Provider Active Start: August 05, 2024 End: August 05, 2024 Dr. Marjan Rasmussen MD Attending Provider Active Start: August 05, 2024 End: August 05, 2024 Dr. Marjan Rasmussen MD Referring Provider Active Start: August 05, 2024 End: August 05, 2024 Team Status: Inactive Member Role Status Dates Dr. Armando Kohli MD Primary Care Provider Active Start: August 13, 2024 End: August 13, 2024 Dr. Marjan Rasmussen MD Attending Provider Active Start: August 13, 2024 End: August 13, 2024 Dr. Marjan Rasmussen MD Referring Provider Active Start: August 13, 2024 End: August 13, 2024 Team Status: Inactive Member Role Status Dates Dr. Armando Kohli MD Primary Care Provider Active Start: August 19, 2024 End: August 19, 2024 Dr. Armando Kohli MD Referring Provider Active Start: August 19, 2024 End: August 19, 2024 Dr. Marjan Rasmussen MD Attending Provider Active Start: August 19, 2024 End: August 19, 2024 Team Status: Active Member Role Status Dates Dr. Armando Kohli MD Primary Care Provider Active Start: August 26, 2024 Dr. Maxwell Torres DO Attending Provider Active Start: August 26, 2024 Dr. Maxwell Torres DO Referring Provider Active Start: August 26, 2024 Team Status: Inactive Member Role Status Dates Dr. Armando Kohli MD Primary Care Provider Active Start: August 26, 2024 End: August 26, 2024 Dr. Maxwell Torres DO Attending Provider Active Start: August 26, 2024 End: August 26, 2024 Dr. Maxwell Torres DO Referring Provider Active Start: August 26, 2024 End: August 26, 2024 Team Status: Active Member Role Status Dates Dr. Armando Kohli MD Primary Care Provider Active Start: August 19, 2024 Dr. Jese Perez MD Attending Provider Active Start: August 19, 2024 Dr. Jese Perez MD Referring Provider Active Start: August 19, 2024 Team Status: Inactive Member Role Status Dates Dr. Armando Kohli MD Primary Care Provider Active Start: November 04, 2024 End: November 04, 2024 Dr. Maxwell Torres DO Attending Provider Active Start: November 04, 2024 End: November 04, 2024 Dr. Maxwell Torres DO Referring Provider Active Start: November 04, 2024 End: November 04, 2024 Team Status: Inactive Member Role Status Dates Dr. Armando Kholi MD Primary Care Provider Active Start: November 29, 2024 End: November 29, 2024 Dr. Kaleb Quiroz DO Emergency Provider Active Start: November 29, 2024 End: November 29, 2024 Team Status: Active Member Role/Relationship Status Dates Dr. Armando Kohli MD Primary Care Provider Active Team Status: Inactive Member Role/Relationship Status Dates Dr. Armando Kohli MD Primary Care Provider Active Start: August 13, 2024 End: August 13, 2024 Dr. Marjan Rasmussen MD Attending Provider Active Start: August 13, 2024 End: August 13, 2024 Dr. Marjan Rasmussen MD Referring Provider Active Start: August 13, 2024 End: August 13, 2024 Team Status: Active Member Role/Relationship Status Dates Dr. Armando Kohli MD Primary Care Provider Active Start: August 19, 2024 Dr. Jese Perez MD Attending Provider Active Start: August 19, 2024 Dr. Jese Perez MD Referring Provider Active Start: August 19, 2024 Team Status: Inactive Member Role/Relationship Status Dates Dr. Armando Kohli MD Primary Care Provider Active Start: August 19, 2024 End: August 19, 2024 Dr. Armando Kohli MD Referring Provider Active Start: August 19, 2024 End: August 19, 2024 Dr. Marjan Rasmussen MD Attending Provider Active Start: August 19, 2024 End: August 19, 2024 Team Status: Inactive Member Role/Relationship Status Dates Dr. Armando Kohli MD Primary Care Provider Active Start: August 26, 2024 End: August 26, 2024 Dr. Maxwell Torres DO Attending Provider Active Start: August 26, 2024 End: August 26, 2024 Dr. Maxwell Torres DO Referring Provider Active Start: August 26, 2024 End: August 26, 2024 Team Status: Inactive Member Role/Relationship Status Dates Dr. Armando Kohli MD Primary Care Provider Active Start: November 04, 2024 End: November 04, 2024 Dr. Maxwell Torres DO Attending Provider Active Start: November 04, 2024 End: November 04, 2024 Dr. Maxwell Torres DO Referring Provider Active Start: November 04, 2024 End: November 04, 2024 Team Status: Inactive Member Role/Relationship Status Dates Dr. Armando Kohli MD Primary Care Provider Active Start: November 29, 2024 End: November 29, 2024 Dr. Kaleb Quiroz DO Attending Provider Active Start: November 29, 2024 End: November 29, 2024 Dr. Kaleb Quiroz DO Emergency Provider Active Start: November 29, 2024 End: November 29, 2024 Team Status: Inactive Member Role/Relationship Status Dates Dr. Armando Kohli MD Primary Care Provider Active Start: December 11, 2024 End: December 11, 2024 Dr. Armando Kohli MD Referring Provider Active Start: December 11, 2024 End: December 11, 2024 Rylee Singh PA, PA Attending Provider Active Start: December 11, 2024 End: December 11, 2024 Team Status: Active Member Role/Relationship Status Dates Dr. Armando Kohli MD Primary Care Provider Active Start: August 19, 2024 Dr. Jese Perez MD Attending Provider Active Start: August 19, 2024 Dr. Jese Perez MD Referring Provider Active Start: August 19, 2024 Team Status: Inactive Member Role/Relationship Status Dates Dr. Armando Kohli MD Primary Care Provider Active Start: August 19, 2024 End: August 19, 2024 Dr. Armando Kohli MD Referring Provider Active Start: August 19, 2024 End: August 19, 2024 Dr. Marjan Rasmussen MD Attending Provider Active Start: August 19, 2024 End: August 19, 2024 Team Status: Inactive Member Role/Relationship Status Dates Dr. Armando Kohli MD Primary Care Provider Active Start: August 26, 2024 End: August 26, 2024 Dr. Maxwell Torres DO Attending Provider Active Start: August 26, 2024 End: August 26, 2024 Dr. Maxwell Torres DO Referring Provider Active Start: August 26, 2024 End: August 26, 2024 Team Status: Inactive Member Role/Relationship Status Dates Dr. Armando Kohli MD Primary Care Provider Active Start: November 04, 2024 End: November 04, 2024 Dr. Maxwell Torres DO Attending Provider Active Start: November 04, 2024 End: November 04, 2024 Dr. Maxwell Torres DO Referring Provider Active Start: November 04, 2024 End: November 04, 2024 Team Status: Inactive Member Role/Relationship Status Dates Dr. Armando Kohli MD Primary Care Provider Active Start: November 29, 2024 End: November 29, 2024 Dr. Kaleb Quiroz DO Attending Provider Active Start: November 29, 2024 End: November 29, 2024 Dr. Kaleb Quiroz DO Emergency Provider Active Start: November 29, 2024 End: November 29, 2024 Team Status: Inactive Member Role/Relationship Status Dates Dr. Armando Kohli MD Primary Care Provider Active Start: December 11, 2024 End: December 11, 2024 Dr. Armando Kohli MD Referring Provider Active Start: December 11, 2024 End: December 11, 2024 Rylee GREENE PA Attending Provider Active Start: December 11, 2024 End: December 11, 2024 Team Status: Inactive Member Role/Relationship Status Dates Dr. Armando Kohli MD Primary Care Provider Active Start: December 11, 2024 End: December 11, 2024 Rylee GREENE PA Attending Provider Active Start: December 11, 2024 End: December 11, 2024 Rylee GREENE PA Referring Provider Active Start: December 11, 2024 End: December 11, 2024 Team Status: Inactive Member Role/Relationship Status Dates Dr. Armando Kohli MD Primary Care Provider Active Start: November 04, 2024 End: November 04, 2024 Dr. Maxwell Torres DO Attending Provider Active Start: November 04, 2024 End: November 04, 2024 Dr. Maxwell Torres DO Referring Provider Active Start: November 04, 2024 End: November 04, 2024 Team Status: Inactive Member Role/Relationship Status Dates Dr. Armando Kohli MD Primary Care Provider Active Start: November 29, 2024 End: November 29, 2024 Dr. Kaleb Quiroz DO Attending Provider Active Start: November 29, 2024 End: November 29, 2024 Dr. Kaleb Quiroz DO Emergency Provider Active Start: November 29, 2024 End: November 29, 2024 Team Status: Inactive Member Role/Relationship Status Dates Dr. Armando Kohli MD Primary Care Provider Active Start: December 11, 2024 End: December 11, 2024 Dr. Armando Kohli MD Referring Provider Active Start: December 11, 2024 End: December 11, 2024 Rylee GREENE PA Attending Provider Active Start: December 11, 2024 End: December 11, 2024 Team Status: Inactive Member Role/Relationship Status Dates Dr. Armando Kohli MD Primary Care Provider Active Start: December 11, 2024 End: December 11, 2024 Rylee GREENE PA Attending Provider Active Start: December 11, 2024 End: December 11, 2024 Rylee GREENE PA Referring Provider Active Start: December 11, 2024 End: December 11, 2024 Team Status: Inactive Member Role/Relationship Status Dates Dr. Armando Kohli MD Primary Care Provider Active Start: December 31, 2024 End: December 31, 2024 Dr. Armando Kohli MD Other Provider Active Star t: December 31, 2024 End: December 31, 2024 Dr. Maxwell Torres DO Attending Provider Active Start: December 31, 2024 End: December 31, 2024 Dr. Maxwell Torres DO Referring Provider Active Start: December 31, 2024 End: December 31, 2024 Reimbursement Consultant Relationship Specialty Start Date End Date Armando Kohli MD PCP - General Family Medicine 10/08/18 Colleen Franco DO Internal Medicine 06/02/12 Reimbursement Consultant Relationship Specialty Start Date End Date Armando Kohli MD PCP - General Family Medicine 10/08/18 Colleen Franco DO Internal Medicine 06/02/12 Team Status: Inactive Member Role/Relationship Status Dates Dr. Armando Kohli MD Primary Care Provider Active Start: January 11, 2025 End: January 11, 2025 Dr. Maxwell Torres DO Attending Provider Active Start: January 11, 2025 End: January 11, 2025 Dr. Maxwell Torres DO Referring Provider Active Start: January 11, 2025 End: January 11, 2025 Team Status: Active Member Role/Relationship Status Dates Dr. Armando Kohli MD Primary Care Provider Active Start: January 12, 2025 Dr. Marjan Rasmussen MD Attending Provider Active Start: January 12, 2025 Dr. Marjan Rasmussen MD Referring Provider Active Start: January 12, 2025 Team Status: Inactive Member Role/Relationship Status Dates Dr. Armando Kohli MD Primary Care Provider Active Start: January 12, 2025 End: January 12, 2025 Dr. Marjan Rasmussen MD Attending Provider Active Start: January 12, 2025 End: January 12, 2025 Dr. Marjan Rasmussen MD Referring Provider Active Start: January 12, 2025 End: January 12, 2025 Team Status: Inactive Member Role/Relationship Status Dates Dr. Armando Kohli MD Primary Care Provider Active Start: January 27, 2025 End: January 27, 2025 Dr. Marjan Rasmussen MD Attending Provider Active Start: January 27, 2025 End: January 27, 2025 Dr. Marjan Rasmussen MD Referring Provider Active Start: January 27, 2025 End: January 27, 2025 Team Status: Active Member Role/Relationship Status Dates Dr. Armando Kohli MD Primary Care Provider Active Start: February 04, 2025 Dr. Armando Kohli MD Attending Provider Active Start: February 04, 2025 Dr. Armando Kohli MD Referring Provider Active Start: February 04, 2025 Reimbursement Consultant Relationship Specialty Start Date End Date Armando Kohli MD PCP - General Family Medicine 10/08/18 Colleen Franco DO Internal Medicine 06/02/12 Team Status: Inactive Member Role/Relationship Status Dates Dr. Armando Kohli MD Primary Care Provider Active Start: February 04, 2025 End: February 04, 2025 Dr. Armando Kohli MD Attending Provider Active Start: February 04, 2025 End: February 04, 2025 Dr. Armando Kohli MD Referring Provider Active Start: February 04, 2025 End: February 04, 2025 Team Status: Active Member Role/Relationship Status Dates Dr. Armando Kohli MD Primary Care Provider Active Start: February 10, 2025 Dr. Armando Kohli MD Attending Provider Active Start: February 10, 2025 Dr. Armando Kohli MD Referring Provider Active Start: February 10, 2025 Team Status: Active Member Role/Relationship Status Dates Dr. Gt Garcia MD Attending Provider Active Start: January 27, 2025 Dr. Marjan Rasmussen MD Referring Provider Active Start: January 27, 2025 Team Status: Inactive Member Role/Relationship Status Dates Dr. Armando Kohli MD Primary Care Provider Active Start: February 04, 2025 End: February 04, 2025 Dr. Armando Kohli MD Attending Provider Active Start: February 04, 2025 End: February 04, 2025 Dr. Armando Kohli MD Referring Provider Active Start: February 04, 2025 End: February 04, 2025 Team Status: Inactive Member Role/Relationship Status Dates Dr. Armando Kohli MD Primary Care Provider Active Start: February 10, 2025 End: February 10, 2025 Dr. Armando Kohli MD Attending Provider Active Start: February 10, 2025 End: February 10, 2025 Dr. Armando Kohli MD Referring Provider Active Start: February 10, 2025 End: February 10, 2025 Reimbursement Consultant Relationship Specialty Start Date End Date Armando Kohli MD PCP - General Family Medicine 10/08/18 Colleen Franco DO Internal Medicine 06/02/12 Team Status: Active Member Role/Relationship Status Dates Dr. Armando Kohli MD Primary care physician Active Team Status: Inactive Member Role/Relationship Status Dates Dr. Armando Kohli MD Primary care physician Active Start: November 29, 2024 End: November 29, 2024 Dr. Kaleb Quiroz DO Attending physician Active Start: November 29, 2024 End: November 29, 2024 Dr. Kaleb Quiroz DO Emergency Department Physician Active Start: November 29, 2024 End: November 29, 2024 Team Status: Inactive Member Role/Relationship Status Dates Dr. Armando Kohli MD Primary care physician Active Start: December 11, 2024 End: December 11, 2024 Dr. Armando Kohli MD Referring Provider Active Start: December 11, 2024 End: December 11, 2024 Rylee GREENE PA Attending physician Active Start: December 11, 2024 End: December 11, 2024 Team Status: Inactive Member Role/Relationship Status Dates Dr. Armando Kohli MD Primary care physician Active Start: December 11, 2024 End: December 11, 2024 Rylee GREENE PA Attending physician Active Start: December 11, 2024 End: December 11, 2024 Rylee GREENE PA Referring Provider Active Start: December 11, 2024 End: December 11, 2024 Team Status: Inactive Member Role/Relationship Status Dates Dr. Armando Kohli MD Primary care physician Active Start: December 31, 2024 End: December 31, 2024 Dr. Armando Kohli MD Nurse Practitioner Active Start: December 31, 2024 End: December 31, 2024 Dr. Maxwell Torres DO Attending physician Active Start: December 31, 2024 End: December 31, 2024 Dr. Maxwell Torres DO Referring Provider Active Start: December 31, 2024 End: December 31, 2024 Team Status: Inactive Member Role/Relationship Status Dates Dr. Armando Kohli MD Primary care physician Active Start: January 11, 2025 End: January 11, 2025 Dr. Maxwell Torres DO Attending physician Active Start: January 11, 2025 End: January 11, 2025 Dr. Maxwell Torres DO Referring Provider Active Start: January 11, 2025 End: January 11, 2025 Team Status: Inactive Member Role/Relationship Status Dates Dr. Armando Kohli MD Primary care physician Active Start: January 12, 2025 End: January 12, 2025 Dr. Marjan Rasmussen MD Attending physician Active Start: January 12, 2025 End: January 12, 2025 Dr. Marjan Rasmussen MD Referring Provider Active Start: January 12, 2025 End: January 12, 2025 Team Status: Inactive Member Role/Relationship Status Dates Dr. Armando Kohli MD Primary care physician Active Start: January 27, 2025 End: January 27, 2025 Dr. Marjan Rasmussen MD Attending physician Active Start: January 27, 2025 End: January 27, 2025 Dr. Marjan Rasmussen MD Referring Provider Active Start: January 27, 2025 End: January 27, 2025 Team Status: Active Member Role/Relationship Status Dates Dr. Gt Garcia MD Attending physician Active Start: January 27, 2025 Dr. Marjan Rasmussen MD Referring Provider Active Start: January 27, 2025 Team Status: Inactive Member Role/Relationship Status Dates Dr. Armando Kohli MD Primary care physician Active Start: February 04, 2025 End: February 04, 2025 Dr. Armando Kohli MD Attending physician Active Start: February 04, 2025 End: February 04, 2025 Dr. Armando Kohli MD Referring Provider Active Start: February 04, 2025 End: February 04, 2025 Team Status: Inactive Member Role/Relationship Status Dates Dr. Armando Kohli MD Primary care physician Active Start: February 10, 2025 End: February 10, 2025 Dr. Armando Kohli MD Attending physician Active Start: February 10, 2025 End: February 10, 2025 Dr. Armando Kohli MD Referring Provider Active Start: February 10, 2025 End: February 10, 2025 Team Status: Inactive Member Role/Relationship Status Dates Dr. Armando Kohli MD Primary care physician Active Start: February 25, 2025 End: February 25, 2025 Dr. Marjan Rasmussen MD Attending physician Active Start: February 25, 2025 End: February 25, 2025 Dr. Marjan Rasmussen MD Referring Provider Active Start: February 25, 2025 End: February 25, 2025 Reimbursement Consultant Relationship Specialty Start Date End Date Armando Kohli MD PCP - General Family Medicine 10/08/18 Colleen Franco DO Internal Medicine 06/02/12 Reimbursement Consultant Relationship Specialty Start Date End Date Armando Kohli MD [address] [place] [address] PCP - General Family Medicine 03/23/25 Reimbursement Consultant Relationship Specialty Start Date End Date Armando Kohli MD [address] [facility] [address] [place], [place] [id number] PCP - General Family Medicine 03/23/25 Reimbursement Consultant Relationship Specialty Start Date End Date Armando Kohli MD PCP - General Family Medicine 10/08/18 Colleen Franco DO Internal Medicine 06/02/12 Source Comments (unrecognize d section and content) In the event this informatio n is protected by the Federal Confidentiality of Alcohol and Drug Abuse Patient Records regulations: The Federal rules restrict any use of the information to criminally investigate or prosecute any alcohol or drug abuse patient.[facility] (unrecognized sect ion and content) No Status Records FoundNo Status Records FoundNo Status Records FoundNo Status Records Found INFORMATION SOURCE (unrecogn ized section and content) DATE CREATED AUTHOR 05/27/2024 [facility] [place] DATE CREATED AUTHOR AUTHOR'S ORGANIZ ATION 04/13/2025 [facility] DATE CREATED AUTHOR AUTHOR'S ORGANIZ ATION 04/27/2025 [facility] DATE CREATED AUTHOR AUTHOR'S ORGANIZ ATION 04/29/2025 [facility] Scheduled Active and Recently Administ ered Medications (unrecognized section and content) Medication Order 03/04/2025 03/05/2025 03/06/2025 Docusate (COLACE) capsule 100 mg 100 mg, Oral, 2 TIMES DAILY, First dose on Sat03/05/25 at 1945, Until Discontinued 2037 (Not Given - Provider: Sarah Pepper RN - Reason: Patient/family refused) 0836 (Not Given - Provider: Rylee Geller RN - Reason: Patient/family refused)1700 (Canceled Entry - Provider: System Discharge - Comment: Automatically canceled at discontinue of medication order) Ezetimibe (ZETIA) 10 mg 10 mg, Oral, DAILY AT BEDTIME, First dose on Sat03/05/25 at 2100, Until Discontinued 2037 (Not Given - Provider: Sarah Pepper RN - Reason: Patient/family refused - Comment: States he already took evening meds at home) Insulin lispro (HUMALOG) injection(Linked Group 1) Subcutaneous, 4 TIMES DAILY WITH MEALS & AT BEDTIME, First dose on Sat03/05/25 at 2345, Until Discontinued, Insulin to carb ratio: Standard: 1 unit insulin = 10 grams carbs every meal and at bedtime Correction Factor: 151-200 = 1 unit; 201-250 = 2 units; 251-300 = 3 units; 301-350 = 4 units; 351-400 = 5 units; Kwikpen: Prime pen before each injection; refer to Pen Priming and Care Handout for further details. Warning! Confirm patient. Insulin pen is for labeled individual patient use ONLY. 0001 (Not Given - Provider: Sarah Pepper RN - Reason: Medication not available)0811 (Not Given - Provider: Rylee Geller RN - Reason: Order Parameters not met)1141 (Not Given - Provider: Rylee Geller RN - Reason: Order Parameters not met)1700 (Canceled Entry - Provider: System Discharge - Comment: Automatically canceled at discontinue of medication order) Levothyroxine (SYNTHROID) tablet 50 mcg 50 mcg, Oral, DAILY, First dose on Sat03/06/25 at 0900, Until Discontinued, Hold tube feedings for 1 hour before and 1 hour after medication administration. 0835 (Given - Provid er: Rylee Geller RN) Lisinopril (PRINIVIL) tablet 20 mg 20 mg, Oral, DAILY, First dose on 03/06/25 at 0900, Until Discontinued 100 (Not Given - Provider: Rylee Geller RN - Reason: Patient/family refused - Comment: per pt takes in the evening, Resident paged) Nortriptyline (PAMELOR) capsule 25 mg 25 mg, Oral, DAILY AT BEDTIME, First dose on Sat03/05/25 at 2100, Until Discontinued 2038 (Not Given - Provider: Sarah Pepper RN - Reason: Patient/family refused - Comment: States he already took evening meds at home) Pantoprazole (PROTONIX) tablet DR 40 mg 40 mg, Oral, DAILY, First dose on 03/06/25 at 0900, Until Discontinued, Swallow whole; do not crush or chew., Indications: Continuation of Home Therapy 0835 (Given - Provid er: Rylee Geller RN) Rosuvastatin (CRESTOR) tablet 10 mg 10 mg, Oral, DAILY, First dose on 03/06/25 at 0900, Until Discontinued 100 (Not Given - Provider: Rylee Geller RN - Reason: Patient/family refused - Comment: per pt takes in the evening, Resident paged) Senna (SENOKOT) tablet 8.6 mg 8.6 mg, Oral, DAILY, First dose on 03/06/25 at 0900, Until Discontinued 0836 (Not Given - Provider: Rylee Geller RN - Reason: Patient/family refused) Continuous Medication Order 03/04/2025 03/05/2025 03/06/2025 sodium chloride 0.9% 1,000 ml with potassium chloride 20 mEq premix IV solution (CANCELED) Intravenous, at 75 mL/hr, CONTINUOUS, Starting on Sat03/05/25 at 1945, Until 03/06/25 at 1002 2354 ($$New Bag$$ - Provider: Sarah Pepper RN) 1005 (Stopped - Provider: Rylee Geller RN) PRN Medication Order 03/04/2025 03/05/2025 03/06/2025 Dextrose 50% injection 7.5-25 g(Linked Group 1) 7.5-25 g, Intravenous, ADMINISTER DIRECTED, Starting on Sat03/05/25 at 2340, Until 03/06/25 at 1758, Blood glucose <80 mg/dL, For patients who are not alert, are NPO, or are on IV insulin infusion administer as directed per Hypoglycemia in Non- Adults Clinical Practice Guideline. For Blood Glucose: 60-79 mg/dL administer 7.5 gm (15ml); 45-59 mg/dL administer 12.5 gm (25ml); less than 45mg/dL administer 25gm (50ml). ++ If additional dextrose 50% needed, contact pharmacy or obtain from crash cart ++ Extravasation risk. Central line required. glucose (GLUTOSE) 40 % oral gel 1-2 Tube(Linked Group 1) 1-2 Tube, Oral, ADMINISTER DIRECTED, Starting on Sat03/05/25 at 2340, Until 03/06/25 at 1758, Blood glucose <80 mg/dL, For patients who are alert, able to tolerate PO intake and with intact cognitive status administer as directed per Hypoglycemia in Non- Adults Clinical Practice Guideline. For Blood Glucose: 60-79 mg/dL administer 1 tube; 45-59 mg/dl administer 1.5 tubes; less than 45 mg/dL administer 2 tubes. Each tube of 37.5g delivers 15g of carbohydrate. 0705 (Given - Provid er: Sarah Pepper RN)0733 (Given - Provider: Rylee Geller RN - Comment: bg 59) Insulin lispro (HUMALOG) injection(Linked Group 1) Subcutaneous, NEEDED, Starting on Sat03/05/25 at 2340, Until 03/06/25 at 1758, Other, As needed for snacks, Insulin to carb ratio: Standard: 1 unit insulin = 10 grams carbs Correction Factor: not to be used with this order. Kwikpen: Prime pen before each injection; refer to Pen Priming and Care Handout for further details. Warning! Confirm patient. Insulin pen is for labeled individual patient use ONLY. Ondansetron (ZOFRAN) tablet 4 mg(Linked Group 2) 4 mg, Oral, EVERY 6 HOURS NEEDED, Starting on Sat03/05/25 at 1941, Until 03/06/25 at 1758, Nausea / Vomiting Ondansetron 4mg/2ml (ZOFRAN) injection 4 mg(Linked Group 2) 4 mg, Intravenous, EVERY 6 HOURS NEEDED, Starting on Sat03/05/25 at 1941, Until 03/06/25 at 1758, Nausea / Vomiting Sodium chloride 0.9% IV solution 250 mL Intravenous, at 20 mL/hr, NEEDED, Starting on Sat03/05/25 at 1939, Until 03/06/25 at 1758, Carrier Fluid - See Admin. Inst, 250mL 0.9NS to be used as carrier fluid for intermittent small volume or piggyback medication administration as needed. Infusion rate of the carrier fluid should be set at 20 mL/hr unless the rate as the intermittent medication is less than 20 mL/hr. For intermittent medications with a rate less than 20 mL/hr set the carrier fluid at that rate of the intermittent or piggy back medication. Linked Groups Order Group 1: Insulin lispro (HUMALOG) injectionJump to med Subcutaneous, 4 TIMES DAILY WITH MEALS & AT BEDTIME, First dose on Sat03/05/25 at 2345, Until Discontinued, Insulin to carb ratio: Standard: 1 unit insulin = 10 grams carbs every meal and at bedtime Correction Factor: 151-200 = 1 unit; 201-250 = 2 units; 251-300 = 3 units; 301-350 = 4 units; 351-400 = 5 units; Kwikpen: Prime pen before each injection; refer to Pen Priming and Care Handout for further details. Warning! Confirm patient. Insulin pen is for labeled individual patient use ONLY. And Insulin lispro (HUMALOG) injectionJump to med Subcutaneous, NEEDED, Starting on Sat03/05/25 at 2340, Until 03/06/25 at 1758, Other, As needed for snacks, Insulin to carb ratio: Standard: 1 unit insulin = 10 grams carbs Correction Factor: not to be used with this order. Kwikpen: Prime pen before each injection; refer to Pen Priming and Care Handout for further details. Warning! Confirm patient. Insulin pen is for labeled individual patient use ONLY. And BLOOD GLUCOSE (POC DEVICE) (CANCELED) Routine, 4 TIMES DAILY BEFORE MEALS & AT BEDTIME, First occurrence on 03/06/25 at 0745, If any Blood Glucose (POC) is greater than 300mg/dl, then repeat Blood Glucose (POC) in 2 hours. If the initial blood glucose was greater than 300mg/dl and if second blood glucose is greater than 200md/dl, then notify Finisher Hand. And BLOOD GLUCOSE (POC DEVICE) (CANCELED) Routine, DIRECTED, Starting on Sat03/05/25 at 2340, Until Specified, For all Blood Glucose LESS THAN 80 mg/dL, treat per Hypoglycemia in Non- Adults Clinical Practice Guideline (CPG) and recheck glucose 15 min after treatment. Repeat per CPG until glucose GREATER THAN 80 mg/dL. Once glucose IS GREATER THAN 80 mg/dL, recheck Blood Glucose every 1 hour x2, then resume as previously ordered. For Blood Glucose LESS THAN 80 mg/dL on admission OR LESS than 45 mg/dL at any time, obtain POC Blood Glucose every 4 hours for 6 occurrences AFTER treating per CPG. Obtain blood glucose for symptoms of hypoglycemia: sweating, shaking, fatigue, rapid pulse, slow thinking & dizziness. Notify physician w/results. Obtain blood glucose for symptoms of hyperglycemia: excessive thirst, blurred vision, excessive urination & tiredness. Notify physician w/results. If patient NPO, obtain POC Blood Glucose prior to administration of any insulin products. And COMMUNICATION ORDER FOR NURSING CARE: For Blood Glucose LESS THAN 80 mg/dl (CANCELED) Routine, CONTINUOUS, Starting on Sat03/05/25 at 2341, Until Specified, For Blood Glucose LESS THAN 80 mg/dl follow Hypoglycemia in Non- Adults Clinical Practice Guideline (CPG) And Dextrose 50% injection 7.5-25 gJump to med 7.5-25 g, Intravenous, ADMINISTER DIRECTED, Starting on Sat03/05/25 at 2340, Until Sat03/06/25 at 1758, Blood glucose <80 mg/dL, For patients who are not alert, are NPO, or are on IV insulin infusion administer as directed per Hypoglycemia in Non- Adults Clinical Practice Guideline. For Blood Glucose: 60-79 mg/dL administer 7.5 gm (15ml); 45-59 mg/dL administer 12.5 gm (25ml); less than 45mg/dL administer 25gm (50ml). ++ If additional dextrose 50% needed, contact pharmacy or obtain from crash cart ++ Extravasation risk. Central line required. And glucose (GLUTOSE) 40 % oral gel 1-2 TubeJump to med 1-2 Tube, Oral, ADMINISTER DIRECTED, Starting on Sat03/05/25 at 2340, Until 03/06/25 at 1758, Blood glucose <80 mg/dL, For patients who are alert, able to tolerate PO intake and with intact cognitive status administer as directed per Hypoglycemia in Non- Adults Clinical Practice Guideline. For Blood Glucose: 60-79 mg/dL administer 1 tube; 45-59 mg/dl administer 1.5 tubes; less than 45 mg/dL administer 2 tubes. Each tube of 37.5g delivers 15g of carbohydrate. And NOTIFY PHYSICIAN, Blood Glucose LESS THAN 80 mg/dl (CANCELED) Routine, CONTINUOUS, Starting on Sat03/05/25 at 2341, Until Specified, Who to Notify: Finisher Hand, For all Blood Glucose LESS THAN 80 mg/dl, notify Finisher Hand after treatment per Hypoglycemia in Non- Adults Clinical Practice Guideline And Carbohydrate counts with meals (CANCELED) Routine, CONTINUOUS, Starting on Sat03/05/25 at 2341, Until Specified, Carbohydrate counts are to be done after each patient meal and with snack. Group 2: Ondansetron 4mg/2ml (ZOFRAN) injection 4 mgJump to med 4 mg, Intravenous, EVERY 6 HOURS NEEDED, Starting on Sat03/05/25 at 1941, Until 03/06/25 at 1758, Nausea / Vomiting Or Ondansetron (ZOFRAN) tablet 4 mgJump to med 4 mg, Oral, EVERY 6 HOURS NEEDED, Starting on Sat03/05/25 at 1941, Until 03/06/25 at 1758, Nausea / Vomiting Scheduled Medication Order 03/21/2025 03/22/2025 03/23/2025 Ascorbic Acid tablet 250 mg 250 mg, Oral, DAILY, First dose on Sat03/12/25 at 0900, Until Discontinued, Post-op/Post-Proc 0905 (Given - Provider: Natacha Alfaro RN) 0846 (Given - Provider: Allyson Askew RN) 0922 (Given - Provider: Benson Rand RN) Clopidogrel (PLAVIX) tablet 75 mg 75 mg, Oral, DAILY, First dose on Sat03/23/25 at 0900, Until Discontinued 0952 (Given - Provider: Benson Rand RN) Cyclobenzaprine (FLEXERIL) tablet 10 mg 10 mg, Oral, 3 TIMES DAILY, First dose on Sat03/11/25 at 2130, Until Discontinued, Post-op/Post-Proc 09 (Given - Provider: Natacha Alfaro RN)1356 (Not Given - Provider: Natacha Alfaro RN - Reason: Patient/family refused)2102 (Given - Provider: Jimbo Roger RN) 0846 (Given - Provider: Allyson Askew RN)1413 (Given - Provider: Natacha Alfaro RN)2150 (Given - Provider: Jimbo Roger RN) 09 (Given - Provider: Benson Rand, TOOTIE)1400 (Canceled Entry - Provider: System Discharge - Comment: Automatically canceled at discontinue of medication order) donepezil (ARICEPT) tablet 5 mg 5 mg, Oral, DAILY AT BEDTIME, First dose on Sat03/11/25 at 2130, Until Discontinued, Post-op/Post-Proc 2102 (Given - Provider: Jimbo Roger RN) 2150 (Given - Provider: Jimbo Roger RN) Enoxaparin Sodium (LOVENOX) injection 40 mg 40 mg, Subcutaneous, DAILY, First dose on Sat03/17/25 at 0900, Until Discontinued, For SUBCUTANEOUS route ONLY: alternate injection sites between left and right abdominal wall, pinching location and avoiding area around navel. If unable to use abdominal sites, may use the front or side of thighs., Indications: DVT/PE prophylaxis 0904 (Given - Provider: Natacha Alfaro RN) 0846 (Given - Provider: Allyson Askew RN) 09 (Given - Provider: Benson Rand, TOOTIE) Ergocalciferol (VITAMIN D2) capsule 50,000 Units 50,000 Units, Oral, EVERY 7 DAYS, First dose on Sat03/11/25 at 2130, Until Discontinued, Post-op/Post-Proc Ezetimibe (ZETIA) 10 mg 10 mg, Oral, DAILY AT BEDTIME, First dose on Sat03/11/25 at 2130, Until Discontinued, Post-op/Post-Proc 2102 (Given - Provider: Jimbo Roger RN) 2150 (Given - Provider: Jimbo Roger RN) ferrous sulfate tablet 324 mg 324 mg, Oral, DAILY, First dose on Sat03/12/25 at 0900, Until Discontinued, Strengths between 300 mg and 325 mg are considered therapeutically interchangeable. Do not crush., Post-op/Post-Proc 903 (Given - Provider: Natacha Alfaro RN) 08 (Given - Provider: Allyson Askew, TOOTIE) 922 (Given - Provider: Benson Rand, RN) Gabapentin (NEURONTIN) capsule 300 mg 300 mg, Oral, DAILY AT BEDTIME, First dose on Sat03/11/25 at 2130, Until Discontinued, Post-op/Post-Proc 2102 (Given - Provider: Jimbo Roger RN) 2150 (Given - Provider: Jimbo Roger RN) guaiFENesin (MUCINEX) tablet SR 600 mg 600 mg, Oral, EVERY 12 HOURS, First dose on Sat03/14/25 at 2100, Until Discontinued, Do not crush, chew, or break. 09 (Given - Provider: Natacha Alfaro RN)2102 (Given - Provider: Jimbo Roger RN) 845 (Given - Provider: Allyson Askew, TOOTIE)2150 (Given - Provider: Jimbo Roger RN) 922 (Given - Provider: Benson Rand, TOOTIE) Insulin lispro (HUMALOG) injection(Linked Group 1) Subcutaneous, 4 TIMES DAILY WITH MEALS & AT BEDTIME, First dose on Sat03/17/25 at 1200, Until Discontinued, Correction Factor: 151-200 = 1 unit; 201-250 = 2 units; 251-300 = 3 units; 301-350 = 4 units; 351-400 = 5 units; Kwikpen: Prime pen before each injection; refer to Pen Priming and Care Handout for further details. Warning! Confirm patient. Insulin pen is for labeled individual patient use ONLY. 0808 (Not Given - Provider: Natacha Alfaro RN - Reason: Order Parameters not met)1205 (Given - Provider: Natacha Alfaro RN)1639 (Not Given - Provider: Natacha Alfaro RN - Reason: Order Parameters not met)2102 (Not Given - Provider: Jimbo Roger RN - Reason: Order Parameters not met) 0615 (Not Given - Provider: Jimbo Roger RN - Reason: Order Parameters not met)1147 (Given - Provider: Natacha Alfaro RN)1614 (Given - Provider: Natacha Alfaro RN)2152 (Given - Provider: Jimbo Roger, RN) 0930 (Hold - Provider: Benson Rand RN - Reason: Order Parameters not met)1234 (Given - Provider: Sarah Engle RN) Levothyroxine (SYNTHROID) tablet 50 mcg 50 mcg, Oral, DAILY BEFORE BREAKFAST, First dose on Sat03/12/25 at 0600, Until Discontinued, Hold tube feedings for 1 hour before and 1 hour after medication administration., Post-op/Post-Proc 0632 (Given - Provider: Kayla Delaney RN) 0604 (Given - Provider: Jimbo Roger, RN) 0538 (Given - Provider: Jimbo Roger RN) Lisinopril (PRINIVIL) tablet 20 mg 20 mg, Oral, DAILY, First dose on Sat03/12/25 at 0900, Until Discontinued, Post-op/Post-Proc, On hold since 03/14/2025 at 2312 until manually unheld 0900 (Automatically Held) 0900 (Automatically Held) 0900 (Automatically Held)1630 (Unheld by provider - Provider: System Discharge) Metoprolol (LOPRESSOR) tablet 50 mg 50 mg, Oral, 2 TIMES DAILY, First dose on 03/13/25 at 0230, Until Discontinued 0905 (Given - Provider: Natacha Alfaro RN)1718 (Given - Provider: Natacha Alfaro RN) 0846 (Given - Provider: Allyson Askew, RN)1614 (Given - Provider: Natacha Alfaro RN) 0923 (Given - Provider: Benson Rand, RN) Multi-Vitamins tablet 1 tablet 1 tablet, Oral, DAILY, First dose on Sat03/12/25 at 0900, Until Discontinued, Post-op/Post-Proc 0905 (Given - Provider: Natacha Alfaro RN) 0845 (Given - Provider: Allyson Askew, RN) 0922 (Given - Provider: Benson Rand, RN) Nintedanib Esylate CAPS 150 mg +Patient Supply+ 150 mg, Oral, EVERY 12 HOURS, First dose on 03/13/25 at 1115, Until Discontinued, Take with food., On hold since 03/14/2025 at 1749 until manually unheld 0800 (Automatically Held - Provider: PAN [place])1999 (Automatically Held - Provider: PAN [place]) 0800 (Automatically Held)1999 (Automatically Held) 0800 (Automatically Held)1630 (Unheld by provider - Provider: System Discharge) Nortriptyline (PAMELOR) capsule 25 mg 25 mg, Oral, DAILY AT BEDTIME, First dose on Sat03/11/25 at 2130, Until Discontinued, Post-op/Post-Proc 2102 (Given - Provider: Jimbo Roger RN) 2150 (Given - Provider: Jimbo Roger RN) Pantoprazole (PROTONIX) tablet DR 40 mg 40 mg, Oral, DAILY, First dose on Sat03/12/25 at 0900, Until Discontinued, Swallow whole; do not crush or chew., Indications: Continuation of Home Therapy, Post-op/Post-Proc 09 (Given - Provider: Natacha Alfaro RN) 0845 (Given - Provider: Allyson Askew RN) 0921 (Hold - Provider: Benson Rand RN - Reason: Patient/family refused) Polyethylene glycol (MIRALAX) packet 17 g(Linked Group 2) 17 g, Oral, EVERY 12 HOURS, First dose on Sat03/14/25 at 2100, Until Discontinued 903 (Given - Provider: Natacha Alfaro RN)2058 (Not Given - Provider: Jimbo Roger RN - Reason: Patient/family refused - Comment: incont of BM) 0853 (Not Given - Provider: Allyson Askew RN - Reason: Patient with symptoms)2022 (Not Given - Provider: Jimbo Roger RN - Reason: Other - Comment: frequent bms today) 0921 (Given - Provider: Benson Rand RN) Potassium chloride (K-DUR) tablet ER 40 mEq (COMPLETED) 40 mEq, Oral, ONCE, 1 dose, On Sat03/23/25 at 0745, Swallow tablets whole; do not crush, chew, or suck on tablet. Tablet may also be broken in half and each half swallowed separately. 1007 (Given - Provider: Benson Rand RN) Rosuvastatin (CRESTOR) tablet 10 mg 10 mg, Oral, DAILY, First dose on Sat03/12/25 at 0900, Until Discontinued, Post-op/Post-Proc 09 (Given - Provider: Natacha Alfaro, RN) 0845 (Given - Provider: Allyson Askew, TOOTIE) 09 (Given - Provider: Benson Rand, TOOTIE) Senna (SENOKOT) tablet 8.6 mg(Linked Group 3) 8.6 mg, Oral, EVERY 12 HOURS, First dose on Sat03/14/25 at 2100, Until Discontinued 904 (Given - Provider: Natacha Alfaro RN)2100 (Not Given - Provider: Jimbo Roger RN - Reason: Patient/family refused - Comment: Multiple BMs (incont)) 853 (Not Given - Provider: Allyson Askew RN - Reason: Patient with symptoms)2023 (Not Given - Provider: Jimbo Roger RN - Reason: Other - Comment: frequent bms today) 09 (Given - Provider: Benson Rand, RN) vitamin E capsule 400 Units 400 Units, Oral, DAILY, First dose on Sat03/12/25 at 0900, Until Discontinued, Post-op/Post-Proc 0904 (Given - Provider: Natacha Alfaro, TOOTIE) 0846 (Given - Provider: Allyson Askew, TOOTIE) 09 (Given - Provider: Benson Rand, RN) PRN Medication Order 03/21/2025 03/22/2025 03/23/2025 alum/mag hydrox.-simethicone oral suspension 30 mL 30 mL, Oral, EVERY 6 HOURS NEEDED, Starting on Shaylee 03/11/25 at 2124, Until Sat03/23/25 at 1630, Indigestion, Per 5 mL is equivalent to: (Alum-Mag Hydroxide 200-225 mg and Simethicone 20 mg) and (Alum-Mag Hydroxide 200-200 mg and Simethicone 20 mg), Post-op/Post-Proc bisacodyl (DULCOLAX) suppository 10 mg 10 mg, Rectal, DAILY NEEDED, Starting on 03/20/25 at 1854, Until Sat03/23/25 at 1630, Constipation If No Bowel Movement in 48 Hours, Please give for goal of daily BM. Hold if 2+ BM in last 24h bisacodyl (DULCOLAX) suppository 10 mg 10 mg, Rectal, DAILY NEEDED, Starting on 03/21/25 at 0900, Until Sat03/23/25 at 1630, Constipation 2nd Line Dextrose 50% injection 7.5-25 g(Linked Group 1) 7.5-25 g, Intravenous, ADMINISTER DIRECTED, Starting on Sat03/17/25 at 1136, Until Sat03/23/25 at 1630, Blood glucose <80 mg/dL, For patients who are not alert, are NPO, or are on IV insulin infusion administer as directed per Hypoglycemia in Non- Adults Clinical Practice Guideline. For Blood Glucose: 60-79 mg/dL administer 7.5 gm (15ml); 45-59 mg/dL administer 12.5 gm (25ml); less than 45mg/dL administer 25gm (50ml). ++ If additional dextrose 50% needed, contact pharmacy or obtain from crash cart ++ Extravasation risk. Central line required. glucose (GLUTOSE) 40 % oral gel 1-2 Tube(Linked Group 1) 1-2 Tube, Oral, ADMINISTER DIRECTED, Starting on Sat03/17/25 at 1136, Until Sat03/23/25 at 1630, Blood glucose <80 mg/dL, For patients who are alert, able to tolerate PO intake and with intact cognitive status administer as directed per Hypoglycemia in Non- Adults Clinical Practice Guideline. For Blood Glucose: 60-79 mg/dL administer 1 tube; 45-59 mg/dl administer 1.5 tubes; less than 45 mg/dL administer 2 tubes. Each tube of 37.5g delivers 15g of carbohydrate. Magnesium sulfate 4 g in sterile water 50 ml premix IVPB 4 g, Intravenous, Administer over 4 Hours, ADMINISTER DIRECTED, Starting on 03/15/25 at 0203, Until Sat03/23/25 at 1630, Other, ICU Magnesium Replacement Parameters, Administer 4 grams once if magnesium level is less than or equal to 2.0 mg/dL. If replacing potassium also, replete magnesium prior to KCl administration. EXCLUDE less than 45 kg, SCr greater than or equal to 2 mg/dL, CrCl less than 30 ml/min, ESRD, and renal replacement therapy Melatonin tablet 6 mg 6 mg, Oral, DAILY AT BEDTIME NEEDED, Starting on Shaylee 03/11/25 at 2124, Until Sat03/23/25 at 1630, Insomnia, Post-op/Post-Proc Prochlorperazine (COMPAZINE) injection 10 mg 10 mg, Intravenous, EVERY 6 HOURS NEEDED, Starting on Sat03/11/25 at 2124, Until Sat03/23/25 at 1630, Nausea / Vomiting, 2nd line, For IV route: dilute dose with 10mL normal saline and give by slow IV push at a rate of 5mg/min. Maximum of 40mg/day., Post-op/Post-Proc Sodium chloride 0.9% IV solution 250 mL Intravenous, at 20 mL/hr, NEEDED, Starting on Sat03/11/25 at 2124, Until Sat03/23/25 at 1630, Carrier Fluid - See Admin Inst., 250mL 0.9NS to be used as carrier fluid for intermittent small volume or piggyback medication administration as needed. Infusion rate of the carrier fluid should be set at 20 mL/hr unless the rate as the intermittent medication is less than 20 mL/hr. For intermittent medications with a rate less than 20 mL/hr set the carrier fluid at that rate of the intermittent or piggy back medication., Post-op/Post-Proc Linked Groups Order Group 1: Insulin lispro (HUMALOG) injectionJump to med Subcutaneous, 4 TIMES DAILY WITH MEALS & AT BEDTIME, First dose on Sat03/17/25 at 1200, Until Discontinued, Correction Factor: 151-200 = 1 unit; 201-250 = 2 units; 251-300 = 3 units; 301-350 = 4 units; 351-400 = 5 units; Kwikpen: Prime pen before each injection; refer to Pen Priming and Care Handout for further details. Warning! Confirm patient. Insulin pen is for labeled individual patient use ONLY. And BLOOD GLUCOSE (POC DEVICE) (CANCELED) Routine, 4 TIMES DAILY BEFORE MEALS & AT BEDTIME, First occurrence on Sat03/17/25 at 1530, If any Blood Glucose (POC) is greater than 300mg/dl, then repeat Blood Glucose (POC) in 2 hours. If the initial blood glucose was greater than 300mg/dl and if second blood glucose is greater than 200md/dl, then notify Finisher Hand. And BLOOD GLUCOSE (POC DEVICE) (CANCELED) Routine, DIRECTED, Starting on Sat03/17/25 at 1136, Until Specified, For all Blood Glucose LESS THAN 80 mg/dL, treat per Hypoglycemia in Non- Adults Clinical Practice Guideline (CPG) and recheck glucose 15 min after treatment. Repeat per CPG until glucose GREATER THAN 80 mg/dL. Once glucose IS GREATER THAN 80 mg/dL, recheck Blood Glucose every 1 hour x2, then resume as previously ordered. For Blood Glucose LESS THAN 80 mg/dL on admission OR LESS than 45 mg/dL at any time, obtain POC Blood Glucose every 4 hours for 6 occurrences AFTER treating per CPG. Obtain blood glucose for symptoms of hypoglycemia: sweating, shaking, fatigue, rapid pulse, slow thinking & dizziness. Notify physician w/results. Obtain blood glucose for symptoms of hyperglycemia: excessive thirst, blurred vision, excessive urination & tiredness. Notify physician w/results. If patient NPO, obtain POC Blood Glucose prior to administration of any insulin products. And COMMUNICATION ORDER FOR NURSING CARE: For Blood Glucose LESS THAN 80 mg/dl (CANCELED) Routine, CONTINUOUS, Starting on Sat03/17/25 at 1137, Until Specified, For Blood Glucose LESS THAN 80 mg/dl follow Hypoglycemia in Non- Adults Clinical Practice Guideline (CPG) And Dextrose 50% injection 7.5-25 gJump to med 7.5-25 g, Intravenous, ADMINISTER DIRECTED, Starting on Sat03/17/25 at 1136, Until Sat03/23/25 at 1630, Blood glucose <80 mg/dL, For patients who are not alert, are NPO, or are on IV insulin infusion administer as directed per Hypoglycemia in Non- Adults Clinical Practice Guideline. For Blood Glucose: 60-79 mg/dL administer 7.5 gm (15ml); 45-59 mg/dL administer 12.5 gm (25ml); less than 45mg/dL administer 25gm (50ml). ++ If additional dextrose 50% needed, contact pharmacy or obtain from crash cart ++ Extravasation risk. Central line required. And glucose (GLUTOSE) 40 % oral gel 1-2 TubeJump to med 1-2 Tube, Oral, ADMINISTER DIRECTED, Starting on Sat03/17/25 at 1136, Until Sat03/23/25 at 1630, Blood glucose <80 mg/dL, For patients who are alert, able to tolerate PO intake and with intact cognitive status administer as directed per Hypoglycemia in Non- Adults Clinical Practice Guideline. For Blood Glucose: 60-79 mg/dL administer 1 tube; 45-59 mg/dl administer 1.5 tubes; less than 45 mg/dL administer 2 tubes. Each tube of 37.5g delivers 15g of carbohydrate. And NOTIFY PHYSICIAN, Blood Glucose LESS THAN 80 mg/dl (CANCELED) Routine, CONTINUOUS, Starting on Sat03/17/25 at 1137, Until Specified, Who to Notify: Finisher Hand, For all Blood Glucose LESS THAN 80 mg/dl, notify Finisher Hand after treatment per Hypoglycemia in Non- Adults Clinical Practice Guideline Group 2: Polyethylene glycol (MIRALAX) packet 17 gJump to med 17 g, Oral, EVERY 12 HOURS, First dose on Sat03/14/25 at 2100, Until Discontinued Or Polyethylene glycol (MIRALAX) packet 17 g (CANCELED) 17 g, Per NG tube, EVERY 12 HOURS, First dose on Sat03/14/25 at 2100, Until Discontinued Group 3: Senna (SENOKOT) tablet 8.6 mgJump to med 8.6 mg, Oral, EVERY 12 HOURS, First dose on Sat03/14/25 at 2100, Until Discontinued Or Senna (SENOKOT) tablet 8.6 mg (CANCELED) 8.6 mg, Per NG tube, EVERY 12 HOURS, First dose on 03/14/25 at 2100, Until Discontinued Scheduled Medication Order 04/05/2025 04/06/2025 04/07/2025 ascorbic acid (vitamin C) (VITAMIN C) tablet 250 mg 250 mg, Oral, Daily, First dose (after last modification) on Sat03/24/25 at 0900 0837 (Given - Provider: Patricia Fay RN) 1010 (Given - Provider: Laura Martino LPN) 1007 (Given - Provider: Laura Martino LPN) atorvastatin (LIPITOR) tablet 20 mg 20 mg, Oral, Nightly, First dose (after last modification) on Sat03/24/25 at 2100 2119 (Given - Provider: Inna Dubon LPN) 2106 (Given - Provider: Lizzy Dorantes RN) bacitracin zinc ointment Topical, 2 times daily, First dose on Sat04/02/25 at 2100, Apply to scab on both nares 0844 (Not Given - Provider: Patricia Fay RN - Reason: Patient/family refused - Comment: Patient reports his nose feels better and denies need for ointment)2123 (Not Given - Provider: Inna Dubon LPN - Reason: Clinical Status Improved) 101 (Not Given - Provider: Laura Martino LPN - Reason: Patient/family refused)2109 (Not Given - Provider: Lizzy Dorantes RN - Reason: Patient/family refused) 09 (Not Given - Provider: Laura Martino LPN - Reason: Patient/family refused) carbidopa-levodopa (SINEMET) 25-100 mg per tablet 1 tablet 1 tablet, Oral, 3 times daily, First dose (after last modification) on Sat04/01/25 at 1500, Administer at least 30 minutes before or 1 hour after meals. May administer with low/no protein snack to decrease GI upset. Avoid high protein (0.8gm/kg) diet. No recommendation to hold tube feeds. Flush tube with 30mL of water before and after adminstration. 0838 (Given - Provider: Patricia Fay RN)1444 (Given - Provider: Carly Veronica RN)2118 (Given - Provider: Inna Dubon LPN) 101 (Given - Provider: Laura Martino LPN)1534 (Given - Provider: Laura Martino LPN)2105 (Given - Provider: Lizzy Dorantes RN) 1007 (Given - Provider: Laura Martino LPN) clopidogreL (PLAVIX) tablet 75 mg 75 mg, Oral, Daily, First dose (after last modification) on Sat03/24/25 at 0900 0837 (Given - Provider: Patricia Fay RN) 101 (Given - Provider: Laura Martino LPN) 1007 (Given - Provider: Laura Martino LPN) donepeziL (ARICEPT) tablet 5 mg 5 mg, Oral, Nightly, First dose (after last modification) on Sat03/23/25 at 2100 2119 (Given - Provider: Inna Dubon LPN) 2106 (Given - Provider: Lizzy Dorantes RN) enoxaparin (LOVENOX) syringe 40 mg 40 mg, Subcutaneous, Daily, First dose (after last modification) on Sat03/24/25 at 0900, Administer in abdomen unless otherwise directed by prescriber. Notify physician if patient refuses. 0836 (Given - Provider: Patricia Fay RN) 1010 (Given - Provider: Laura Martino LPN) 1006 (Given - Provider: Laura Martino LPN) ergocalciferol capsule 50,000 Units 50,000 Units, Oral, Every 7 days, First dose (after last modification) on Sat03/25/25 at 2130 ezetimibe (ZETIA) tablet 10 mg 10 mg, Oral, Nightly, First dose (after last modification) on Sat03/23/25 at 2100 2118 (Given - Provider: Inna Dubon LPN) 2104 (Given - Provider: Lizzy Dorantes RN) ferrous sulfate tablet 325 mg 325 mg, Oral, Daily with breakfast, First dose (after last modification) on Sat03/24/25 at 0800 0838 (Given - Provider: Patricia Fay RN) 1010 (Given - Provider: Laura Martino LPN) 1006 (Given - Provider: Laura Martino LPN) gabapentin (NEURONTIN) capsule 300 mg 300 mg, Oral, Nightly, First dose (after last modification) on Sat03/23/25 at 2100, Capsule may be opened and contents placed down tube, flush tube with 10ml saline 2118 (Given - Provider: Inna Dubon LPN) 2105 (Given - Provider: Lizzy Dorantes RN) guaiFENesin (MUCINEX) 12 hr tablet 600 mg 600 mg, Oral, Every 12 hours, First dose (after last modification) on Sat03/23/25 at 2100, DO NOT CRUSH OR CHEW. 0837 (Given - Provider: Patricia Fay RN)2118 (Given - Provider: Inna Dubon LPN) 1010 (Given - Provider: Laura Martino LPN)2106 (Given - Provider: Lizzy Dorantes RN) 1006 (Given - Provider: Laura Martino LPN) insulin lispro (AdmeLOG,HumaLOG) injection 0-15 Units(Linked Group 1) 0-15 Units, Subcutaneous, At bedtime, First dose on Sat03/23/25 at 2100, IF initial POC glucose is greater than 250, administer insulin as directed and re-check POC glucose no sooner than 2 hours after administration. THEN notify provider if POC glucose is still greater than 250., For nightly BG greater than 250, give: Half ( ) Corrective Scale, Nightly Prandial Snack Dosing Method: NO Snack Coverage - Corrective Scale ONLY, Nightly Insulin Dose Corrective Scale: FOLLOW DAYTIME Prandial Corrective Scale, Corrective Insulin Regimen (select desired scale to cover BG result): Insulin SENSITIVE Scale, (REMINDER: Nightly Insulin Dose Corrective Scale will be automatically calculated to be of the daytime scale), Dose Reduction Threshold (at meals) for POC Blood Glucose less than or equal to: 80, For Downtime Calculator, use: Insulin SC NIGHTtime 2122 (Not Given - Provider: Inna Dubon LPN - Reason: Order parameters not met) 2107 (Not Given - Provider: Lizzy Dorantes RN - Reason: Order parameters not met) insulin lispro (AdmeLOG,HumaLOG) injection 0-30 Units 0-30 Units, Subcutaneous, 3 times daily before meals, First dose on Sat03/23/25 at 1800, * Dose should be given EITHER: No sooner than 10-15 minutes BEFORE a meal (Specific Prandial Doses or NO Prandial Dose - Corrective Scale ONLY) - OR - Immediately AFTER meal completed (Carb Counting Ratio), Prandial Insulin Dosing Method: NO Prandial Dose - Corrective Scale ONLY, Corrective Insulin Regimen (select desired scale to cover BG result): Insulin SENSITIVE Scale, Dose Reduction Threshold (at meals) for POC Blood Glucose less than or equal to: 80, For Downtime Calculator, use: Insulin SC MEALtime PREprandial 0836 (Not Given - Provider: Patricia Fay RN - Reason: Order parameters not met)1227 (Given - Provider: Patricia Fay RN)1630 (Not Given - Provider: Gigi Mendez RN - Reason: Order parameters not met) 0730 (Not Given - Provider: Laura Martino LPN - Reason: Order parameters not met)1130 (Not Given - Provider: Laura Martino LPN - Reason: Order parameters not met)1630 (Not Given - Provider: Laura Martino LPN - Reason: Order parameters not met) 0730 (Not Given - Provider: Laura Martino LPN - Reason: Order parameters not met)1130 (Not Given - Provider: Laura Martino LPN - Reason: Order parameters not met) levothyroxine (SYNTHROID, LEVOTHROID) tablet 50 mcg 50 mcg, Oral, Every morning before breakfast, First dose (after last modification) on Sat03/24/25 at 0600, Hold continuous tube feeds for at least 1 hour before until 1 hour after each dose. Flush tube with 30mL of water before and after administration. Tube feed rate may need adjusted to meet caloric needs. 0733 (Given - Provider: Patricia Fay RN) 1011 (Given - Provider: Laura Martino LPN) 1007 (Given - Provider: Laura Martino LPN) metoprolol tartrate (LOPRESSOR) tablet 50 mg 50 mg, Oral, 2 times daily, First dose (after last modification) on Sat03/23/25 at 1800, Hold for SBP <115, or HR <60 0838 (Given - Provider: Patricia Fay RN)2119 (Given - Provider: Inna Dubon LPN) 1011 (Given - Provider: Laura Martino LPN)210 (Given - Provider: Lizzy Dorantes RN) 1007 (Given - Provider: Laura Martino LPN) multivitamin (THERAGRAN) per tablet 1 tablet 1 tablet, Oral, Daily, First dose on Sat03/23/25 at 1800 0838 (Given - Provider: Patricia Fay RN) 1011 (Given - Provider: Laura Martino LPN) 1007 (Given - Provider: Laura Martino LPN) nintedanib cap 150 mg 150 mg, Oral, 2 times daily before meals, First dose (after last modification) on Sat03/25/25 at 2000, Take with food, 12 hours apart, Drug Name: OFEV, Form: capsule, Dose: 150, Dose Units: mg, Length of Therapy: Indefinite, How soon needed? (normally 72 hrs needed to procure): 0-24 hrs, Reason for Non-Formulary: Not stocked, Will this medication be patient supplied? Yes 0834 (Given - Provider: Patricia Fay RN)1723 (Given - Provider: Gigi Mendez RN) 1011 (Given - Provider: Laura Martino LPN)182 (Given - Provider: Laura Martino LPN) 1008 (Given - Provider: Laura Martino LPN) nortriptyline (PAMELOR) capsule 25 mg 25 mg, Oral, Nightly, First dose (after last modification) on Sat03/23/25 at 2100, May cause QT interval prolongation. 2118 (Given - Provider: Inna Dubon LPN) 2107 (Given - Provider: Lizzy Dorantes RN) pantoprazole (PROTONIX) EC tablet 40 mg 40 mg, Oral, Daily, First dose (after last modification) on Sat03/24/25 at 0900, DO NOT CRUSH OR CHEW. 0837 (Given - Provider: Patricia Fay RN) 1011 (Given - Provider: Laura Martino LPN) 1007 (Given - Provider: Laura Martino LPN) polyethylene glycol (MIRALAX) powder 17 g 17 g, Oral, Daily, First dose on Sat03/24/25 at 1115 0835 (Not Given - Provider: Patricia Fay RN - Reason: Patient/family refused) 1010 (Not Given - Provider: Laura Martino LPN - Reason: Patient/family refused) 0900 (Not Given - Provider: Laura Martino LPN - Reason: Patient/family refused) vitamin E capsule 400 Units 400 Units, Oral, Daily, First dose on Sat03/23/25 at 1800, DO NOT CRUSH OR CHEW. 0842 (Given - Provider: Patricia Fay RN) 1011 (Given - Provider: Laura Martino LPN) 1007 (Given - Provider: Laura Martino LPN) PRN Medication Order 04/05/2025 04/06/2025 04/07/2025 cyclobenzaprine (FLEXERIL) tablet 5 mg 5 mg, Oral, 3 times daily PRN, muscle spasms, Starting on Sat03/29/25 at 1500 ibuprofen (ADVIL,MOTRIN) tablet 400 mg 400 mg, Oral, Every 6 hours PRN, headaches, mild pain, Starting on Sat03/24/25 at 1028, Give with Food Do Not Crush or Chew if administering orally due to bitter taste. May be crushed if given via tube. 2127 (Given - Provider: Inna Dubon LPN) loperamide (IMODIUM) capsule 2 mg 2 mg, Oral, 4 times daily PRN, diarrhea, Starting on Sat03/30/25 at 0239, Do not exceed 16 MG (8 caps)/ 24 HRS melatonin Tab 5 mg 5 mg, Oral, Nightly PRN, Insomnia, Starting on Sat03/24/25 at 1023 ondansetron (ZOFRAN-ODT) disintegrating tablet 4 mg 4 mg, Oral, Every 8 hours PRN, nausea, vomiting, Starting on Sat03/24/25 at 1023, Orally disintegrating tablet: Open blister pack and place tablet on the tongue; tablet is formulated to dissolve on the tongue without water; do not split tablet. Formulation requires tablet remain in sealed package until immediately prior to dose being administered. senna-docusate (SENNA-S) 8.6-50 mg per tablet 1 tablet 1 tablet, Oral, Nightly PRN, constipation, Starting on Sat03/24/25 at 1024, Hold for loose stools Do Not Crush or Chew if administering orally due to bitter taste. May be crushed if given via tube. Linked Groups Order Group 1: insulin lispro (AdmeLOG,HumaLOG) injection 0-15 UnitsJump to med 0-15 Units, Subcutaneous, At bedtime, First dose on Sat03/23/25 at 2100, IF initial POC glucose is greater than 250, administer insulin as directed and re-check POC glucose no sooner than 2 hours after administration. THEN notify provider if POC glucose is still greater than 250., For nightly BG greater than 250, give: Half ( ) Corrective Scale, Nightly Prandial Snack Dosing Method: NO Snack Coverage - Corrective Scale ONLY, Nightly Insulin Dose Corrective Scale: FOLLOW DAYTIME Prandial Corrective Scale, Corrective Insulin Regimen (select desired scale to cover BG result): Insulin SENSITIVE Scale, (REMINDER: Nightly Insulin Dose Corrective Scale will be automatically calculated to be of the daytime scale), Dose Reduction Threshold (at meals) for POC Blood Glucose less than or equal to: 80, For Downtime Calculator, use: Insulin SC NIGHTtime And Notify physician (CANCELED) Routine, Until discontinued, Starting on Sat03/23/25 at 1646, Until Specified, Other: IF HS POC Glucose RE-CHECK Greater than 250, If initial HS POC glucose is greater than 250, administer insulin as directed and re-check POC glucose no sooner than 2 hours after administration. IF RE-CHECK POC glucose is still greater than 250, notify provider. FOR RECORDS PERTAINING TO PATIENTS WHO ARE [...] BE BASED ON THE PRIMARY CLINICAL RECORDS. [employer] [facility]. provides no warranty or guarantee of the accuracy or completeness of information in this document.
== END | disposition home or self-care (01) ==
LOC: MTRAD 11:24
PROVIDERS: PCP Family Medicine; Referring Provider Family Medicine; Visit Provider Family Medicine
DX: R10.9 Unspecified abdominal pain (principal)
CPT/HCPCS: 74019

== ENCOUNTER → 2025-05-25 | Outpatient (CLI) | payer MEDICARE, OTHER, SELFPAY ==
[2025-05-25 11:04] LABS: AST(SGOT) 19 U/L (<=37); Alanine Aminotransfer ALT/SGPT 10 U/L (<=46); Albumin, Serum 3.5 g/dL (3.4-4.8); Alkaline Phosphatase 125 U/L (40-129); Bilirubin, Direct 0.14 mg/dL (0.00-0.30); Globulin 3.2 g/dL (2.2-4.2)
== END | disposition home or self-care (01) ==
LOC: MTLAB 08:56
PROVIDERS: PCP Family Medicine; Referring Provider Internal Medicine Pulmonary Disease; Visit Provider Internal Medicine Pulmonary Disease
DX: J84.10 Pulmonary fibrosis, unspecified (principal)
CPT/HCPCS: 36415; 80076